=== PATIENT | male | born 1995 | race Caucasian/White ===

== ENCOUNTER 2016-11-30 17:57 | Emergency (ER) | payer OTHER, BC ==
--- NOTE | 2016-11-30 18:02 | PDOC ---
History of Present Illness - General History Source: Parent(s) Exam Limitations: Clinical Condition - History of Present Illness Initial Comments: The patient is 21 yo M with a past medical history significant for seizures and autism who presents with witnessed seizure today. Patients history is provided by parents as patient is nonverbal at baseline. Patients father states he witnessed the patient have a tonic clonic seizure that lasted 4-5 minutes where the patient fell straight forward and hit his head. As per parents , patient is compliant with his medications (depakote). Parents deny changes in medications and note his last seizure was 5 years ago. The patients last tetanus shot would have been 7-8 years ago. Neurologist: Dr. Jensen <Lydia Juan - Last Filed: 11/30/16 19:50> - General Exam Limitations: Clinical Condition <Sophie Degroot - Last Filed: 11/30/16 20:04> - General Stated Complaint: SEIZURE Past History <Lydia Juan - Last Filed: 11/30/16 19:50> - Past Medical History Seizures: Yes (SEIZURES) - Immunization History Td Vaccination: No - Psycho/Social/Smoking Cessation Hx Anxiety: No Suicidal Ideation: No Smoking Status: No Smoking History: Never smoked Years of Tobacco Use: 0 Number of Cigarettes Smoked Daily: 0 Hx Alcohol Use: No Drug/Substance Use Hx: No Substance Use Type: None <Sophie Degroot - Last Filed: 11/30/16 20:04> - Past Medical History Allergies/Adverse Reactions: Allergies Allergy/AdvReac Type Severity Reaction Status Date / Time cefprozil [From Cefzil] Allergy Intermediate Rash Verified 11/30/16 18:17 Home Medications: Ambulatory Orders Divalproex [Depakote -] 0 mg PO DAILY 01/22/16 Review of Systems - Review of Systems Able to Perform ROS?: No (Patient is nonverbal) <Lydia Juan - Last Filed: 11/30/16 19:50> *Physical Exam - Physical Exam Comments: GENERAL: The patient is in no acute distress. Patient is non verbal at baseline. HEAD: Abrasion on forehead. Abrasion on nose. EYES: PERRLA, EOMI, sclera anicteric, conjunctiva clear. ENT: Ears normal, nares patent, oropharynx clear without exudates. Moist mucous membranes. NECK: Normal range of motion, supple without lymphadenopathy, JVD, or masses. LUNGS: Breath sounds equal, clear to auscultation bilaterally. No wheezes, and no crackles. HEART:Regular rate and rhythm, normal S1 and S2 without murmur, rub or gallop. ABDOMEN: Soft, nontender, normoactive bowel sounds. No guarding, no rebound. EXTREMITIES: Abrasion on right hand. Normal range of motion, no edema. No clubbing or cyanosis. No erythema, or tenderness. NEUROLOGICAL: No gross focal neurological deficits. MUSCULOSKELETAL: Back non-tender to palpation, no CVA tenderness SKIN: Warm, Dry, normal turgor, no rashes or lesions noted. <Lydia Juan - Last Filed: 11/30/16 19:50> ED Treatment Course - LABORATORY CBC & Chemistry Diagram: 11/30/16 17:57 11/30/16 17:57 - RADIOLOGY Radiograph Interpretation: HEAD CT: Impression: No acute intracranial pathology is identified.. Correlate clinically for further evaluation and follow-up. CT scan of the facial bones without intravenous contrast. Coronal and sagittal reconstruction images were obtained. No gross fracture is identified. Both orbits are intact . Mild deviation of nasal septum to the right. Minimal mucosal thickening in the right maxillary antrum and ethmoid air cells and mild mucosal hypertrophy involving the inferior nasal terminus, left more the right. Bilateral upper neck and submandibular subcentimeter lymph nodes are present which are nonspecific. Visualized intracranial contents appear unremarkable. <Lydia Juan - Last Filed: 11/30/16 19:50> - LABORATORY CBC & Chemistry Diagram: 11/30/16 17:57 11/30/16 17:57 <Sophie Degroot - Last Filed: 11/30/16 20:04> Medical Decision Making - Medical Decision Making Paged Dr. Khoury @ 19:49. Awaiting call back. <Lydia Juan - Last Filed: 11/30/16 19:50> - Medical Decision Making 11/30/16 18:02 A portion of this note was documented by scribe services under my direction. I have reviewed the details of the note, within reason, and agree with the documentation with the following case summary and management plan written by me. Nursing documentation reviewed and incorporated into medical decision making this is a 21 yo M with a history of Autism and seizure Pt presents to the ER due to generalized tonic clonic seizure which caused him to fall forward and strike his head (+) tonic clonic movements lasting 4 minutes according to father Pt noted to be "sleepy" Child is awake Moving all extremities (+) abrasion of the forehead, nose, upper lip teeth in place 11/30/16 18:43 Will do basic labs + valproate will do CT Laboratory Tests 11/30/16 18:00 WBC 11.8 H Hgb 15.2 Hct 45.6 Plt Count 321 Neutrophils % 56.2 Lymphocytes % 29.7 11/30/16 19:16 Laboratory Tests 11/30/16 11/30/16 17:57 17:57 Sodium 142 Chloride 108 H Carbon Dioxide 23 Anion Gap 11 BUN 22 H Creatinine 2.1 H Random Glucose 103 Valproic Acid 13.727 L 11/30/16 19:28 CT: no ICH, small calcification (discussed with parents, he has had this since he was a child) CT facial bones: no fracture call placed to pt PMD Dr Lagunas ([phone]) 11/30/16 19:[address] Lagunas's coverage Unable to reach him directly Will discharge to home Will ask pt to keep follow up with PMD Monitor for additional seizures Return to the ER for any concerns or complaints 11/30/16 19:40 11/30/16 19:52 Dr Garibay has reviewed this case with me She recommends that he take 750mg po tonight before bed She recommends that family follow up with Dr Jensen tomorrow 11/30/16 19:59 <Sophie Degroot - Last Filed: 11/30/16 20:04> *DC/Admit/Observation/Transfer - Attestations Scribe Attestion: Documentation prepared by Lydia Juan, acting as biomedical field service engineer for Sophie Degroot MD/DO. <Lydia Juan - Last Filed: 11/30/16 19:50> - Discharge Dispostion Admit: No <Sophie Degroot - Last Filed: 11/30/16 20:04> Diagnosis at time of Disposition: Seizure, Dehydration - Discharge Dispostion Disposition: HOME Condition at time of disposition: Stable - Referrals Referrals: Yanick Jacobson MD [Primary Care Provider] - - Patient Instructions Printed Discharge Instructions: DI for Seizure Disorder -- Adult, DI for Dehydration -- Adult Additional Instructions: Thank you for bringing Yanick in to the ER! Please follow up with your primary physician as we discussed You will need to review Yanick's baseline creatinine Please also follow up with Dr Jensen regarding his seizure medications Per Dr Jensen's covering doctor's recommendation, Yanick should take 3 Depakote tablets (750mg) instead of 1 Depakote tablet. Please return to the ER immediately for any concerns or complaints
[2016-11-30 18:22] LABS: BASOPHIL 0.8 % (0-2.0); MCH 27.9 pg (25.7-33.7); MCHC 33.4 g/dl (32.0-35.9); MEAN CELL VOLUME 83.5 fl (80-96); MEAN PLT VOLUME 8.5 fl (7.5-11.1); NEUTROPHILS 56.2 % (42.8-82.8); PLATELET COUNT 321 K/MM3 (134-434); RDW 12.8 % (11.9-15.9); WHITE BLOOD COUNT 11.8 K/mm3 (4.0-10.0)
[2016-11-30 18:49] VITALS: BP 151/129; PULSE 93; TEMP 98.2; BMI 28.8
[2016-11-30 19:04] LABS: ALBUMIN 2.3 g/dl (3.4-5.0); ALK PHOS 89 U/L (45-117); ANION GAP 11 (8-16); CALCIUM 8.9 mg/dL (8.5-10.1); CO2 23 mmol/L (21-32); CREATININE 2.1 mg/dL (0.7-1.3); GLUCOSE,RANDOM 103 mg/dL (74-106); SGPT/ALT 25 U/L (12-78); TOT PROT 5.7 g/dl (6.4-8.2)
[2016-11-30 19:13] LABS: BILIRUBIN,TOTAL < 0.1 mg/dL (0.2-1.0)
[2016-11-30 19:15] LABS: SGOT/AST 27 U/L (15-37)
== END 2016-11-30 20:17 | disposition home or self-care (01) ==
LOC: JER 17:57
DX: G40.909 Epilepsy, unspecified, not intractable, without status epilepticus (principal); E86.0 Dehydration; F84.0 Autistic disorder; S00.81XA Abrasion of other part of head, initial encounter; W18.39XA Other fall on same level, initial encounter; Y93.89 Activity, other specified; Y92.018 Other place in single-family (private) house as the place of occurrence of the external cause
CPT/HCPCS: 70450-TC; 70486-TC; 80053; 80164; 99283-25

== ENCOUNTER 2017-08-29 10:04 | Inpatient (IN) | payer OTHER, BC ==
--- NOTE | 2017-08-29 10:12 | PDOC ---
History of Present Illness - General Chief Complaint: Loss of Appetite Stated Complaint: H/O AUTISM FATHER STATES NOT ACTING RIGHT Time Seen by Provider: 08/29/17 10:12 History Source: Parent(s) Exam Limitations: Other (nonverbal due to autism) - History of Present Illness Initial Comments: 22 yo M history of autism, seizures, nonverbal at baseline p/w change in mental status. As per father, he had diarrhea last night. Today he has been staring into space at times (does not typically do that at baseline), not himself. Dec PO intake since last night, although he indicated in ED that he was hungry-he does this by motioning to his chest as per parents. No fever, recent illness. He had a seizure a few days ago. Past History - Past Medical History Allergies/Adverse Reactions: Allergies Allergy/AdvReac Type Severity Reaction Status Date / Time cefprozil [From Cefzil] Allergy Intermediate Rash Verified 08/29/17 10:26 Home Medications: Ambulatory Orders Divalproex [Depakote -] 250 mg PO DAILY 01/22/16 Seizures: Yes (SEIZURES) - Immunization History Td Vaccination: No - Suicide/Smoking/Psychosocial Hx Smoking Status: No Smoking History: Never smoked Years of Tobacco Use: 0 Have you smoked in the past 12 months: No Number of Cigarettes Smoked Daily: 0 Hx Alcohol Use: No Drug/Substance Use Hx: No Substance Use Type: None Review of Systems - Review of Systems Able to Perform ROS?: No (nonverbal) *Physical Exam - Physical Exam Comments: GENERAL: Awake, alert, in no apparent distress HEAD: No signs of trauma EYES: PERRLA, EOMI, sclera anicteric, conjunctiva clear ENT: Auricles normal inspection, hearing grossly normal, nares patent, oropharynx clear without exudates. Dry mucosa NECK: Normal ROM, supple, no lymphadenopathy, JVD, or masses LUNGS: Breath sounds equal, clear to auscultation bilaterally. No wheezes, and no crackles HEART: Tachycardic, normal S1 and S2, no murmurs, rubs or gallops ABDOMEN: Firm to palpation diffusely. Patient does not grimace with exam. Normoactive bowel sounds. No guarding, no rebound. No masses EXTREMITIES: R clubfoot. Normal range of motion, no edema. No clubbing or cyanosis. No cords, erythema, or tenderness NEUROLOGICAL: Cranial nerves II through XII grossly intact. Moving all extremities. Limited by autism. SKIN: Warm, Dry, normal turgor, no rashes or lesions noted. Heart Score/ECG Review - ECG Impressions Comment:: EKG read 11:03- Sinus tach 102 bpm, no acute ST/T changes. +Incomplete RBBB ED Treatment Course - LABORATORY CBC & Chemistry Diagram: 09/01/17 05:45 08/31/17 05:40 Medical Decision Making - Medical Decision Making 08/29/17 10:27 Pt noted to be tachycardic and hypertensive. He kept moving his arm while getting BP measurement, which may have affected BP. This could also be new onset HTN or may be due to pain. Will evaluate medically, including EKG, labs, urine, and CT a/p. 08/29/17 12:37 Multiple attempts at IV access and blood draw (initial blood draw was hemolyzed) . IV access obtained by ED RN after many attempts, blood sent to lab for analysis. Pt hypertensive, however, will not treat without first evaluating the AMS, as the BP may be related. 08/29/17 14:22 Labs show acute renal failure, hyperkalemia. Medications ordered. Awaiting CT a/ p reading. 08/29/17 14:27 Lactate significantly elevated, no obvious source of infection on CT a/p or CXR. Poss pna found on CT, although does not clinically fit the picture. Will give broad spectrum abx. 08/29/17 14:33 Case d/w hospitalist Dr. Gonzalez for admission. Pt is awake and alert, no distress. [facility]. *DC/Admit/Observation/Transfer Diagnosis at time of Disposition: Acute renal failure Qualifiers: Acute renal failure type: unspecified Qualified Code(s): N17.9 - Acute kidney failure, unspecified Pneumonia Qualifiers: Pneumonia type: due to unspecified organism Laterality: unspecified laterality Lung location: unspecified part of lung Qualified Code(s): J18.9 - Pneumonia, unspecified organism Sepsis Qualifiers: Sepsis type: sepsis due to unspecified organism Qualified Code(s): A41.9 - Sepsis, unspecified organism - Discharge Dispostion Condition at time of disposition: Guarded Admit: Yes - Referrals - Patient Instructions - Post Discharge Activity
[2017-08-29 10:35] VITALS: BMI 27.3
[2017-08-29 11:32] LABS: PH,URINE 6.5 (4.5-8); URINE APPEARANCE Clear; URINE BILIRUBIN Negative (NEGATIVE); URINE GLUCOSE (UA) Trace (NEGATIVE); URINE KETONE Trace (NEGATIVE); URINE NITRITE Negative (NEGATIVE); URINE UROBILINOGEN 0.2 (0.2-1.0)
[2017-08-29 11:40] LABS: URINE BLOOD 3+ (NEGATIVE); URINE COLOR YELLOW; URINE LEUK ESTERASE TRACE (NEGATIVE); URINE PROTEIN 3+ (NEGATIVE)
[2017-08-29] MEDS ORDERED: SODIUM CHLORIDE 1,000 ML IV STA (11:51)
[2017-08-29] MEDS ORDERED: LORazepam 2 MG/ML SDV VIAL ONE (11:53)
[2017-08-29 11:54] LABS: HEMATOCRIT 26.1 % (35.4-49); HEMOGLOBIN 8.9 GM/dl (11.7-16.9); MCH 28.3 pg (25.7-33.7); MCHC 33.9 g/dl (32.0-35.9); MEAN CELL VOLUME 83.3 fl (80-96); MEAN PLT VOLUME 8.6 fl (7.5-11.1); PLATELET COUNT 104 K/MM3 (134-434); RBC 3.14 M/mm3 (4.00-5.60); RDW 12.8 % (11.9-15.9); WHITE BLOOD COUNT 23.3 K/mm3 (4.0-10.8)
[2017-08-29 13:20] LABS: EPI CELLS FEW /HPF; URINE BACTERIA NONE SEEN /hpf (NEGATIVE); URINE RBC >50 /hpf (0-3)
[2017-08-29 13:21] LABS: ALK PHOS 52 U/L (32-92); ANION GAP 14 (8-16); BILIRUBIN,TOTAL 0.7 mg/dl (0.2-1.0); CHLORIDE 95 mmol/L (98-107); CO2 15 mmol/L (22-28); GLUCOSE,RANDOM 101 mg/dl (74-106); SGOT/AST 32 U/L (10-42); SGPT/ALT 9 U/L (10-40); TOT PROT 4.8 g/dl (6.4-8.3)
[2017-08-29 14:06] LABS: INR 1.01 (0.82-1.09); PROTHROMBIN TIME (PATIENT) 11.3 SEC (10.2-13.0)
[2017-08-29 14:09] LABS: CREATININE 20.5 mg/dl (0.6-1.3); POTASSIUM 6.4 mmol/L (3.5-5.1); SODIUM 124 mmol/L (136-145)
[2017-08-29] MEDS ORDERED: SODIUM CHLORIDE 1,000 ML IV SCH (14:15)
[2017-08-29] MEDS ORDERED: SODIUM POLYSTYRENE SULFONATE 15 GM/60 ML BOTTLE PO ONE (14:16)
[2017-08-29] MEDS ORDERED: ALBUTEROL SO4 0.083% IH SOL 2.5 MG/3 ML VIAL.NEB. NEB ONE ×2 (14:16→14:40)
[2017-08-29] MEDS ORDERED: DEXTROSE 50%-WATER - 25 GM/50 ML VIAL IVPUSH ONE (14:16)
[2017-08-29] MEDS ORDERED: INSULIN REGULAR HUMAN 100 UNITS/ML *VIAL SQ ONE (14:16)
[2017-08-29] MEDS ORDERED: SODIUM BICARBONATE 8.4% 50 MEQ/50 ML DISP.SYRIN IVPUSH ONE (14:16)
[2017-08-29 14:19] LABS: BLOOD UREA NITROGEN 168 mg/dl (7-18)
[2017-08-29] MEDS ORDERED: AZTREONAM 1 GM in DEXTROSE 5%-WATER - 50 ML IVPB ONE (14:23)
[2017-08-29] MEDS ORDERED: VANCOMYCIN 1,000 MG in DEXTROSE 5%-WATER - 250 ML IVPB ONE (14:25)
[2017-08-29] MEDS ORDERED: SODIUM POLYSTYRENE SULFONATE 15 GM/60 ML BOTTLE ONE (14:37)
[2017-08-29] MEDS ORDERED: DEXTROSE 50%-WATER 25 GM/50 ML DISP.SYRIN ONE (14:37)
[2017-08-29] MEDS ORDERED: INSULIN REGULAR HUMAN 100 UNITS/ML *VIAL ONE (14:38)
--- NOTE | 2017-08-29 14:38 | EKG ---
Test Reason : Blood Pressure : / mmHG Vent. Rate : 102 BPM Atrial Rate : 102 BPM P-R Int : 164 ms QRS Dur : 118 ms QT Int : 388 ms P-R-T Axes : 059 -32 065 degrees QTc Int : 505 ms SINUS TACHYCARDIA LEFT AXIS DEVIATION INCOMPLETE RIGHT BUNDLE BRANCH BLOCK ABNORMAL ECG NO PREVIOUS ECGS AVAILABLE Confirmed by RHEA BILLS, WAQAS ([id number]) on 08/29/2017 2:38:25 PM Referred By: DR MARTIN Confirmed By:WAQAS WILKERSON MD
[2017-08-29] MEDS ORDERED: VANCOMYCIN 1,000 MG VIAL (RESTRICTED TO ID ONLY) ONE (14:40)
[2017-08-29] MEDS ORDERED: SODIUM BICARBONATE 8.4% 50 MEQ/50 ML VIAL ONE (14:40)
[2017-08-29] MEDS ORDERED: LABETALOL HCL 5 MG/1 ML (100MG/20 ML VIAL) IVPUSH ONE ×3 (14:43→19:32)
[2017-08-29] MEDS ORDERED: LABETALOL HCL 5 MG/1 ML (100MG/20 ML VIAL) ONE (15:25)
--- NOTE | 2017-08-29 18:21 | HP ---
CHIEF COMPLAINT: diarrhea, increased shortness of breath PCP: Yanick Jacobson HISTORY OF PRESENT ILLNESS: This is a 22 year old male with PMHx of autism, seizure disorder, who presented to the ED with diarrhea and increase dyspnea. The patient is non-verbal at baseline. His mother states that on Sunday she noticed small lumps under his right armpit and called his pcp who prescribed Keflex. The patient then developed diarrhea on Sunday (8 times), for which the patient's father gave him 3 immodium. The patient has not had any bowel movements since then. The mother also noticed that yesterday the patient's breathing "was not right". The patient did not have any vomiting, however since Sunday he has had a decreased appetite. Patient was received from [facility] at 5:30pm ER course was notable for: (1) Temp 98.1, pulse 108, BPs 220s/130s, resp 24, pulse ox 100% on RA (2) WBC 23.3->13.5 (3) Hgb 8.9->7.3 (4) Na 123 (5) K 6.4, received albuterol, d50, insulin, kayexalate, sodium bicarb (6) BUN 168, Cr 20.5 (7) Lactic acid 2.3 (8) Trop 0.10 (9) CTAP (10) Chest X-ray with no acute process Recent Travel: mother denies PAST MEDICAL HISTORY: as above PAST SURGICAL HISTORY: hernia repair as Social History: Smoking: mother denies Alcohol: mother denes Drugs: mother denies Family History: Allergies cefprozil [From Cefzil] Allergy (Intermediate, Verified 08/29/17 10:26) Rash HOME MEDICATIONS: Home Medications Medication Instructions Recorded Divalproex [Depakote -] 250 mg PO DAILY 01/22/16 REVIEW OF SYSTEMS: obtained from mother CONSTITUTIONAL: decrease appetite since Sunday Absent: fever, diaphoresis, weight change HEENT: Absent: rhinorrhea, nasal congestion, throat swelling, difficulty swallowing, mouth swelling CARDIOVASCULAR: Absent: syncope, peripheral edema RESPIRATORY: breathing "did not look right" since yesterday Absent: cough, shortness of breath, dyspnea with exertion, orthopnea, wheezing, stridor, hemoptysis GASTROINTESTINAL: Diarrhea x8 times yesterday. Imodium x3 given Absent: abdominal distension, vomiting, constipation, melena, hematochezia GENITOURINARY: Absent: frequency, urgency, hesitancy, hematuria MUSCULOSKELETAL: Absent: myalgia, arthralgia, joint swelling SKIN: Absent: rash, itching, pallor HEMATOLOGIC/IMMUNOLOGIC: Absent: easy bleeding, easy bruising, lymphadenopathy, frequent infections ENDOCRINE: Absent: unexplained weight gain, unexplained weight loss, heat intolerance, cold intolerance NEUROLOGIC: Absent: focal weakness or paresthesias, dizziness, unsteady gait, seizure, mental status changes, bladder or bowel incontinence PHYSICAL EXAMINATION Vital Signs - 24 hr 08/29/17 08/29/17 08/29/17 10:06 11:50 13:09 Temperature 98.1 F Pulse Rate 108 H Pulse Rate [ 100 H 100 H Right Radial] Respiratory 24 20 20 Rate Blood Pressure 230/130 Blood Pressure 220/140 [Left Arm] O2 Sat by Pulse 100 99 Oximetry (%) 08/29/17 08/29/17 08/29/17 13:36 13:38 14:53 Temperature 98.9 F Pulse Rate Pulse Rate [ 107 H 113 H Right Radial] Respiratory 20 24 Rate Blood Pressure Blood Pressure 199/139 220/128 [Left Arm] O2 Sat by Pulse Oximetry (%) 08/29/17 08/29/17 08/29/17 15:31 15:45 16:05 Temperature Pulse Rate Pulse Rate [ 104 H 103 H 108 H Right Radial] Respiratory 26 H 24 24 Rate Blood Pressure Blood Pressure 212/112 198/118 208/121 [Left Arm] O2 Sat by Pulse 100 98 Oximetry (%) 08/29/17 08/29/17 17:17 17:31 Temperature Pulse Rate 104 H Pulse Rate [ Right Radial] Respiratory 18 Rate Blood Pressure 191/110 Blood Pressure [Left Arm] O2 Sat by Pulse 95 Oximetry (%) GENERAL: Lethargic, opens eyes to name HEAD: Left EYES: sclera anicteric, conjunctiva clear. No lid lag. EARS, NOSE, THROAT: Ears normal, nares patent, oropharynx clear without exudates. Moist mucous membranes. NECK: Normal range of motion, supple without lymphadenopathy, JVD, or masses. LUNGS: Decreased breath sounds anteriorly. No wheezes, and no crackles. No accessory muscle use. HEART: Regular rate and rhythm, normal S1 and S2 ABDOMEN: Soft, nontender, not distended, normoactive bowel sounds, no guarding, no rebound, no masses. UPPER EXTREMITIES: Left axilla with multiple indurations, mild erythema. No fluctuance noted. 2+ pulses, warm, well-perfused. No cyanosis. No clubbing. No peripheral edema. LOWER EXTREMITIES: 2+ pulses, warm, well-perfused. No calf tenderness. No peripheral edema. SKIN: Warm, dry, normal turgor, no rashes or lesions noted, normal capillary refill. Laboratory Results - last 24 hr 08/29/17 08/29/17 08/29/17 10:50 10:52 10:52 WBC RBC Hgb Hct MCV MCH MCHC RDW Plt Count MPV Neutrophils % Lymphocytes % PT with INR INR Sodium Cancelled Potassium Cancelled Chloride Cancelled Carbon Dioxide Cancelled Anion Gap Cancelled BUN Cancelled Creatinine Cancelled Creat Clearance w eGFR Cancelled Random Glucose Cancelled Lactic Acid Calcium Cancelled Total Bilirubin Cancelled AST Cancelled ALT Cancelled Alkaline Phosphatase Cancelled Creatine Kinase Cancelled Creatine Kinase Index CK-MB (CK-2) Troponin I Cancelled Total Protein Cancelled Albumin Cancelled Lipase Urine Color Urine Appearance Urine pH Ur Specific [place] Urine Protein Urine Glucose (UA) Urine Ketones Urine Blood Urine Nitrite Urine Bilirubin Urine Urobilinogen Ur Leukocyte Esterase Urine RBC Urine WBC Ur Epithelial Cells Urine Bacteria Blood Type O POSITIVE Antibody Screen 08/29/17 08/29/17 08/29/17 10:52 10:52 10:52 WBC 23.3 H RBC 3.14 L Hgb 8.9 L Hct 26.1 L MCV 83.3 MCH 28.3 MCHC 33.9 RDW 12.8 Plt Count 104 L MPV 8.6 Neutrophils % No Result Required. Lymphocytes % No Result Required. PT with INR Cancelled INR Cancelled Sodium Potassium Chloride Carbon Dioxide Anion Gap BUN Creatinine Creat Clearance w eGFR Random Glucose Lactic Acid Calcium Total Bilirubin AST ALT Alkaline Phosphatase Creatine Kinase Creatine Kinase Index CK-MB (CK-2) Troponin I Total Protein Albumin Lipase Urine Color Urine Appearance Urine pH Ur Specific [place] Urine Protein Urine Glucose (UA) Urine Ketones Urine Blood Urine Nitrite Urine Bilirubin Urine Urobilinogen Ur Leukocyte Esterase Urine RBC Urine WBC Ur Epithelial Cells Urine Bacteria Blood Type O POSITIVE Antibody Screen Negative 08/29/17 08/29/17 08/29/17 10:52 10:52 10:52 WBC RBC Hgb Hct MCV MCH MCHC RDW Plt Count MPV Neutrophils % Lymphocytes % PT with INR INR Sodium Potassium Chloride Carbon Dioxide Anion Gap BUN Creatinine Creat Clearance w eGFR Random Glucose Lactic Acid 2.3 H* Calcium Total Bilirubin AST ALT Alkaline Phosphatase Creatine Kinase Creatine Kinase Index CK-MB (CK-2) Troponin I Total Protein Albumin Lipase 186 Urine Color Yellow Urine Appearance Clear Urine pH 6.5 Ur Specific [place] 1.025 Urine Protein 3+ H Urine Glucose (UA) Trace Urine Ketones Trace Urine Blood 3+ H Urine Nitrite Negative Urine Bilirubin Negative Urine Urobilinogen 0.2 Ur Leukocyte Esterase Trace H Urine RBC >50 Urine WBC 3-5 Ur Epithelial Cells Few Urine Bacteria None seen Blood Type Antibody Screen 08/29/17 08/29/17 08/29/17 12:37 12:37 12:37 WBC RBC Hgb Hct MCV MCH MCHC RDW Plt Count MPV Neutrophils % Lymphocytes % PT with INR 11.3 INR 1.01 Sodium 124 L* Potassium 6.4 H* Chloride 95 L Carbon Dioxide 15 L Anion Gap 14 BUN 168 H* Creatinine 20.5 H* Creat Clearance w eGFR 2.84 Random Glucose 101 Lactic Acid Calcium 7.0 L Total Bilirubin 0.7 AST 32 ALT 9 L Alkaline Phosphatase 52 Creatine Kinase 373 H Creatine Kinase Index 2.5 CK-MB (CK-2) 9.4 H Troponin I 0.10 H Total Protein 4.8 L Albumin 2.0 L Lipase Urine Color Urine Appearance Urine pH Ur Specific [place] Urine Protein Urine Glucose (UA) Urine Ketones Urine Blood Urine Nitrite Urine Bilirubin Urine Urobilinogen Ur Leukocyte Esterase Urine RBC Urine WBC Ur Epithelial Cells Urine Bacteria Blood Type Antibody Screen 08/29/17 12:37 WBC RBC Hgb Hct MCV MCH MCHC RDW Plt Count MPV Neutrophils % Lymphocytes % PT with INR INR Sodium Potassium Chloride Carbon Dioxide Anion Gap BUN Creatinine Creat Clearance w eGFR Random Glucose Lactic Acid 0.5 Calcium Total Bilirubin AST ALT Alkaline Phosphatase Creatine Kinase Creatine Kinase Index CK-MB (CK-2) Troponin I Total Protein Albumin Lipase Urine Color Urine Appearance Urine pH Ur Specific [place] Urine Protein Urine Glucose (UA) Urine Ketones Urine Blood Urine Nitrite Urine Bilirubin Urine Urobilinogen Ur Leukocyte Esterase Urine RBC Urine WBC Ur Epithelial Cells Urine Bacteria Blood Type Antibody Screen Assessment: This is a 22 year old male with PMHx of autism, seizure disorder, who presented to the ED with diarrhea and increase dyspnea. The patient is non- verbal at baseline. Plan: 1) Acute renal failure - Likely 2/2 chronic hypertension, previous admission BP 15/129 11/30/16 - Cr on 11/30/16 2.1 - Now with Cr of 20.5 - Discussed with Dr. Velasquez, emergent HD tonight - Discussed with Dr. 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 Patient was given Immodium x3 - F/u stool studies, c.diff - Bowel rest, CTAP with possible ileus 6) Visit type - Emergency Visit Emergency Visit: Yes ED Registration Date: 08/29/17 Care time: The patient presented to the Emergency Department on the above date and was hospitalized for further evaluation of their emergent condition. - New Patient This patient is new to me today: Yes Date on this admission: 08/29/17 - Critical Care Critical Care patient: Yes Total Critical Care Time (in minutes): 55 Critical Care Statement: The care of this patient involved high complexity decision making to prevent further life threatening deterioration of the patient 's condition and/or to evaluate & treat vital organ system(s) failure or risk of failure. Hospitalist Screening - Colonoscopy Questionnaire Colonoscopy Questionnaire: Colonoscopy Questionnaire - Patient: 50 - 75 years old and never had a screening colonoscopy: No History of colon or rectal polyps, or CA: Unknown History of IBD, Crohn's disease or UC: Unknown History of abdominal radiation therapy as a child: Unknown - Relative: 1 with colon or rectal CA, or polyps at age 60 or younger: Unknown Colon or rectal CA diagnosed at age 45 or younger: Unknown Multiple relatives with colon or rectal CA: Unknown - Outcome: Screening Result: Negative Screen
[2017-08-29 18:29] LABS: HEMATOCRIT 20.9 % (35.4-49); HEMOGLOBIN 7.3 GM/dL (11.7-16.9); MCH 28.6 pg (25.7-33.7); MCHC 34.7 g/dl (32.0-35.9); MEAN CELL VOLUME 82.6 fl (80-96); MEAN PLT VOLUME 8.1 fl (7.5-11.1); PLATELET COUNT 55 K/MM3 (134-434); RBC 2.53 M/mm3 (4.00-5.60); RDW 13.8 % (11.9-15.9); WHITE BLOOD COUNT 13.5 K/mm3 (4.0-10.0)
[2017-08-29 18:53] LABS: ALBUMIN 1.6 g/dl (3.4-5.0); ANION GAP 20 (8-16); CHLORIDE 97 mmol/L (98-107); CO2 15 mmol/L (21-32); GLUCOSE,RANDOM 74 mg/dL (74-106); POTASSIUM 4.8 mmol/L (3.5-5.1); SGOT/AST 36 U/L (15-37); SGPT/ALT 9 U/L (12-78); SODIUM 132 mmol/L (136-145)
[2017-08-29] MEDS ORDERED: CALCIUM GLUCONATE 10% - 1,000 MG/10 ML VIAL IVPUSH ONE (18:55)
[2017-08-29 18:59] LABS: ALK PHOS 51 U/L (45-117); BILIRUBIN,TOTAL 0.3 mg/dL (0.2-1.0); TOT PROT 4.2 g/dl (6.4-8.2)
--- NOTE | 2017-08-29 18:59 | PN ---
Progress Note (short form) - Note Progress Note: ID consult dictated asked to see for leukocytosis imp/reccd 22 year old man with autism, nonverbal with seizure disorder several episodes diarrhea on sunday that has stopped after immodium no fevers given vancomycin and azactam after cultures renal failure with hyponatremia and hyperkalemia-cr of 20! renal eval called for transfer to ICU severe htn- ?cause of renal failure diarrhea has stopped- no colitis on CT scan nonbloody, ?HUS send cdiff and cultures if he has further diarrhea very early as diarrhea was yesterday leukocytosis- f/u cultures no source noted in renal failure received vanco and azactam today f/u cultures in am f/u vanco level in am redose azactam in am cefprozil allergy- rash has taken augmentin and keflex in the past per Mom
[2017-08-29 19:09] LABS: BLOOD UREA NITROGEN 157 mg/dL (7-18); CREATININE 20.5 mg/dL (0.7-1.3)
[2017-08-29 19:10] LABS: CALCIUM 6.9 mg/dL (8.5-10.1)
--- NOTE | 2017-08-29 19:22 | CONSULT ---
Consult Consult Specialty:: Nephrology Reason for Consultation:: ANNA - History of Present Illness Chief Complaint: mental status changes and diarrhea yesterday History of Present Illness: Pt is a 22 year old male with pmhx of autism, HTN, CKD and epilepsy who presents to the ER with a change in mental status. He had a few episodes of diarrhea yesterday. His mental status has improved since yesterday. He was found to be in ANNA with a creatinine of about 20. I was called to see him in consult. Pt is unable to give any history. His mother is at bedside and she was able to provide history. Pt was also found to be markedly hypertensive. 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 He was also hypertensive at that time. Mother was not aware of renal failure. He has not seen a appliance tester nor had any outpt workup. He had not been on nsaids. He was given immodium for the diarrhea yesterday. 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) Cardio/Vascular: Yes: HTN Renal/: Yes: Renal Inusuff - Past Surgical History Past Surgical History: Yes: Hernia Repair - Alcohol/Substance Use Hx Alcohol Use: No - Smoking History Smoking history: Never smoked Have you smoked in the past 12 months: No Aproximately how many cigarettes per day: 0 Home Medications - Allergies Allergies/Adverse Reactions: Allergies Allergy/AdvReac Type Severity Reaction Status Date / Time cefprozil [From Cefzil] Allergy Intermediate Rash Verified 08/29/17 10:26 - Home Medications Home Medications: Ambulatory Orders Divalproex [Depakote -] 250 mg PO DAILY 01/22/16 Family Disease History - Family Disease History Family Disease History: Other: Father (htn) Review of Systems Unable to obtain ROS, reason: pt non verbal Physical Exam Vital Signs: Vital Signs Temperature 98.9 F 08/29/17 13:38 Pulse Rate 104 H 08/29/17 17:17 Respiratory Rate 18 08/29/17 17:17 Blood Pressure 191/110 08/29/17 17:17 O2 Sat by Pulse Oximetry (%) 95 08/29/17 17:31 Constitutional: Yes: Calm Eyes: Yes: Conjunctiva Clear HENT: Yes: Atraumatic Neck: Yes: Supple Cardiovascular: Yes: S1, S2 Respiratory: Yes: CTA Bilaterally Gastrointestinal: Yes: Soft Renal/: Yes: WNL Musculoskeletal: Yes: WNL Edema: No Integumentary: Yes: Other (scratch on his head) Neurological: Yes: Pre-Existing Deficit Labs: CBC, BMP 08/29/17 18:00 08/29/17 18:00 Selected Entries 08/29/17 08/29/17 16:05 17:17 Blood Pressure 191/110 Blood Pressure 208/121 [Left Arm] Laboratory Tests 11/30/16 08/29/17 08/29/17 17:57 10:52 12:37 Sodium 124 L* Potassium 6.4 H* Chloride 95 L Carbon Dioxide 15 L Anion Gap 14 BUN 168 H* Creatinine 2.1 H 20.5 H* Lactic Acid 2.3 H* Calcium 7.0 L Total Bilirubin 0.7 AST 32 Alkaline Phosphatase 52 Creatine Kinase 373 H Troponin I Total Protein 4.8 L 08/29/17 08/29/17 08/29/17 12:37 12:37 18:00 Sodium Potassium Chloride Carbon Dioxide Anion Gap BUN Creatinine Lactic Acid 0.5 Calcium Total Bilirubin AST Alkaline Phosphatase Creatine Kinase Troponin I 0.10 H Pending Total Protein Imaging - Results Chest X-ray: Report Reviewed Cat Scan: Report Reviewed Assessment/Plan Current Medications Generic Name Dose Route Start Last Admin Trade Name Freq PRN Reason Stop Dose Admin Chlorhexidine Gluconate 1 applic 08/29/17 22:00 Hibiclens For Decolonization - TP HS LANE Sodium Chloride 1,000 mls @ 125 mls/hr 08/29/17 14:15 08/29/17 14:53 Normal Saline - IV 125 mls/hr ASDIR LANE Administration Mupirocin 1 applic 08/29/17 22:00 Bactroban Ointment (For Decolonization) - NS 09/03/17 21:[address] Impression 1. ANNA 2. HTN urgency/emergency 3. hyperkalemia 4. hyponatremia 5. autism 6. hx of seizure 7. anemia 8. CKD 9. lactic acidosis improving 10. thrombocytopenia Plan - move pt to ICU - potassium treated medically - will arrange for HD today, discussed with mother. I explained the risks of catheter placement and of hemodialysis. She agrees to go ahead with the procedure. 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
[2017-08-29] MEDS ORDERED: SODIUM CHLORIDE 250 ML IV PRN (19:43)
[2017-08-29 19:57] LABS: ADD RBC MORPHOLOGY YES
--- NOTE | 2017-08-29 20:25 | CONSULT ---
Consult Consult Specialty:: Pulm/CCM Reason for Consultation:: ANNA, metabolic disarray - History of Present Illness History of Present Illness: 22 yom with Pmhx of autism, HTN, CKD and epilepsy who presents to the ER with AMS. Found to be in hypertensive urgency with acute on chronic ANNA and severe metabolic disarray In ED T 98.1 , HR 108, BP 230/130, O2 sat 100% on room air. Labs notable for WBC 13.5, Hgb 7.3,Plts 55, BUN/Creat 157/20.5, K 6.4, Trop 0.15. Creat in 2016 noted to be 2.1. BP also elevated 150/100. Family reported a few episodes of diarrhea yesterday. K was medically treated and improved to 4.8. Nephrology Dr Velasquez was consulted. Plan for iHD. He was transferred to ICU for further management. In ICU BP 190/110, HR 103 o2 sat 100%, somnolent but easily aroused, not following commands, occasionally restless. Has malodorus loose stools post kayexalate doses. Family denied c/o fever, abd pain, chest pain, N/V, loss of appetite. Rt IJ Trialysis cath placed. Confirmed by CXR. iHD ongoing. 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) Cardio/Vascular: Yes: HTN Renal/: Yes: Renal Inusuff - Past Surgical History Past Surgical History: Yes: Hernia Repair - Alcohol/Substance Use Hx Alcohol Use: No - Smoking History Smoking history: Never smoked Have you smoked in the past 12 months: No Aproximately how many cigarettes per day: 0 Home Medications - Allergies Allergies/Adverse Reactions: Allergies Allergy/AdvReac Type Severity Reaction Status Date / Time cefprozil [From Cefzil] Allergy Intermediate Rash Verified 08/29/17 10:26 - Home Medications Home Medications: Ambulatory Orders Divalproex [Depakote -] 250 mg PO DAILY 01/22/16 Family Disease History - Family Disease History Family History: Unable to Obtain Family Disease History: Other: Father (htn) Review of Systems Unable to obtain ROS, reason: Unable Physical Exam Vital Signs: Vital Signs Temperature 98 F 08/29/17 18:45 Pulse Rate 108 H 08/29/17 19:15 Respiratory Rate 18 08/29/17 19:15 Blood Pressure 215/118 08/29/17 19:15 O2 Sat by Pulse Oximetry (%) 95 08/29/17 17:31 Intake & Output 08/26/17 08/27/17 08/28/17 08/29/17 23:59 23:59 23:59 23:59 Intake Total 1175 Output Total 80 Balance 1095 Weight 81.647 kg Constitutional: Yes: Well Nourished, No Distress Eyes: Yes: WNL, PERRL HENT: Yes: Atraumatic, Normocephalic Neck: Yes: Supple, Trachea Midline Cardiovascular: Yes: Regular Rate and Rhythm, Tachycardia, S1, S2 Respiratory: Yes: CTA Bilaterally Gastrointestinal: Yes: Normal Bowel Sounds, Soft, Other (non tender) Renal/: Yes: Ruiz Present Extremities: Yes: WNL Edema: No Peripheral Pulses WNL: Yes Integumentary: Yes: WNL Neurological: Yes: Other (Somnolent) ...Motor Strength: WNL Psychiatric: Yes: Other Labs: CBC, BMP 08/29/17 18:00 08/29/17 18:00 CBC,CMP WBC 13.3 K/mm3 (4.0-10.0) H 08/29/17 20:00 RBC 2.51 M/mm3 (4.00-5.60) L 08/29/17 20:00 Hgb 7.2 GM/dL (11.7-16.9) L 08/29/17 20:00 Hct 21.0 % (35.4-49) L 08/29/17 20:00 MCV 83.7 fl (80-96) 08/29/17 20:00 MCH 28.6 pg (25.7-33.7) 08/29/17 20:00 MCHC 34.2 g/dl (32.0-35.9) 08/29/17 20:00 RDW 14.1 % (11.9-15.9) 08/29/17 20:00 Plt Count 55 K/MM3 (134-434) L 08/29/17 20:00 MPV 8.6 fl (7.5-11.1) 08/29/17 20:00 Neutrophils % 83.5 % (42.8-82.8) H D 08/29/17 20:00 Neutrophils % (Manual) 85.0 % (42.8-82.8) H 08/29/17 10:52 Band Neutrophils % 5.0 % (0-10) 08/29/17 10:52 Lymphocytes % 6.1 % (8-40) L D 08/29/17 20:00 Lymphocytes % (Manual) 4.0 % (8-40) L 08/29/17 10:52 Monocytes % 10.2 % (3.8-10.2) 08/29/17 20:00 Monocytes % (Manual) 2 % (3.8-10.2) L 08/29/17 10:52 Eosinophils % 0.0 % (0-4.5) D 08/29/17 20:00 Basophils % 0.2 % (0-2.0) 08/29/17 20:00 Metamyelocytes 3 % (0-2) H 08/29/17 10:52 Anisocytosis 1+ 08/29/17 10:52 Tear Drop Cells 1+ 08/29/17 10:52 Ovalocytes 1+ 08/29/17 10:52 Fragmented RBCs 1+ 08/29/17 10:52 Morphology Comment See comment 08/29/17 18:00 Retic Count 2.89 % (0.5-1.5) H 08/29/17 20:00 Sodium 132 mmol/L (136-145) L 08/29/17 18:00 Potassium 4.8 mmol/L (3.5-5.1) 08/29/17 18:00 Chloride 97 mmol/L (98-107) L D 08/29/17 18:00 Carbon Dioxide 15 mmol/L (21-32) L D 08/29/17 18:00 Anion Gap 20 (8-16) H 08/29/17 18:00 BUN 157 mg/dL (7-18) H* D 08/29/17 18:00 Creatinine 20.5 mg/dL (0.7-1.3) H* D 08/29/17 18:00 Creat Clearance w eGFR 2.84 (>60) 08/29/17 18:00 Random Glucose 74 mg/dL (74-106) D 08/29/17 18:00 Lactic Acid 0.7 mmol/L (0.0-2.0) 08/29/17 16:04 Calcium 6.9 mg/dL (8.5-10.1) L* D 08/29/17 18:00 Ferritin 1092.933 ng/ml (16.4-293.9) H 08/29/17 20:00 Total Bilirubin 0.3 mg/dL (0.2-1.0) D 08/29/17 18:00 AST 36 U/L (15-37) D 08/29/17 18:00 ALT 9 U/L (12-78) L D 08/29/17 18:00 Alkaline Phosphatase 51 U/L (45-117) D 08/29/17 18:00 LD Total 1254 U/L (87-241) H 08/29/17 20:00 Creatine Kinase 373 IU/L (39-308) H 08/29/17 12:37 Creatine Kinase Index 2.5 % (0.0-5.0) 08/29/17 12:37 CK-MB (CK-2) 9.4 ng/mL (0.3-4.0) H 08/29/17 12:37 Troponin I 0.15 ng/ml (0.00-0.05) H 08/29/17 18:00 Total Protein 4.2 g/dl (6.4-8.2) L D 08/29/17 18:00 Albumin 1.6 g/dl (3.4-5.0) L D 08/29/17 18:00 Lipase 186 U/L (73-393) 08/29/17 10:52 TSH 5.20 uIU/ml (0.358-3.74) H 08/29/17 12:37 Current Medications Chlorhexidine Gluconate (Hibiclens For Decolonization -) [address] Sodium Chloride (Normal Saline -) 250 mls @ 3,000 mls/hr IV PRN PRN PRN Reason: Hypotension during Dialysis Stop: 08/30/17 19:43 Mupirocin (Bactroban Ointment (For Decolonization) -) [address] Stop: 09/03/17 21:59 Imaging - Results Chest X-ray: Image Reviewed Cat Scan: Report Reviewed EKG: Report Reviewed Problem List - Problems (1) Hypertensive urgency Code(s): I16.0 - HYPERTENSIVE URGENCY (2) Hyperkalemia Code(s): E87.5 - HYPERKALEMIA (3) Anemia Code(s): D64.9 - ANEMIA, UNSPECIFIED (4) Thrombocytopenia Code(s): D69.6 - THROMBOCYTOPENIA, UNSPECIFIED (5) Acute renal failure Code(s): N17.9 - ACUTE KIDNEY FAILURE, UNSPECIFIED Qualifiers: Acute renal failure type: unspecified Qualified Code(s): N17.9 - Acute kidney failure, unspecified Assessment/Plan 22 yom with Pmhx of autism, HTN, CKD and epilepsy who presents to the ER with AMS. Found to be in hypertensive urgency with acute on chronic ANNA and severe metabolic disarray of unclear etiology. C/F HUS, MAHA Plan: -Cardiology consult for BP management -Labetalol for SBP<180 -IHD as per nephrology -FeNa 10.85% -monitor BMP and UOP -f/u renal US, urine studies ( FeNa 10.85%) -f/u rheumatology work-up -Heme consult -f/u hemolysis labs, peripheral smear for schistocytes and [id number] -Sent stool cultures -F/u blood and urine cultures -ID consult -Montior CBC and coags -Transfuse for hgb<7, platelets <50 and for bleeding -NPO for now -SCDs Elvia Giles, WILMER CCtime 60mins
[2017-08-29 20:47] LABS: ANISOCYTOSIS 1+; OVALOCYTE 1+; TEAR DROP CELLS 1+
[2017-08-29 21:01] LABS: URINE CREATININE 64.4 mg/dL (20-370)
[2017-08-29 21:08] LABS: BASO % 0.2 % (0-2.0); HEMOGLOBIN 7.2 GM/dL (11.7-16.9); LYMPH % 6.1 % (8-40); MCH 28.6 pg (25.7-33.7); MCHC 34.2 g/dl (32.0-35.9); MEAN CELL VOLUME 83.7 fl (80-96); MEAN PLT VOLUME 8.6 fl (7.5-11.1); MONO % 10.2 % (3.8-10.2); NEUT % 83.5 % (42.8-82.8); PLATELET COUNT 55 K/MM3 (134-434); RBC 2.51 M/mm3 (4.00-5.60); RDW 14.1 % (11.9-15.9); WHITE BLOOD COUNT 13.3 K/mm3 (4.0-10.0)
--- NOTE | 2017-08-29 21:29 | PN ---
Progress Note (short form) - Note Progress Note: Dr. Tolentino spoke with Dr. Vasquez about continuing pt's home dose of depakote (250mg in morning, 750mg at 5pm, and 250mg at night), but because of risk of thrombocytopenia (per uptodate, there is a 1-27% risk), she said to hold tonight 's dose, obtain a depakote level, and place a neurology consult.
[2017-08-29] MEDS ORDERED: LORazepam 2 MG/ML SDV VIAL IVPUSH ONE (21:30)
[2017-08-29 21:31] LABS: INR 1.03 (0.82-1.09); PROTHROMBIN TIME (PATIENT) 11.6 SEC (9.98-11.88)
[2017-08-29 21:33] LABS: ACTIVATED PTT 33.3 SECONDS (26.9-34.4)
--- NOTE | 2017-08-29 21:36 | CONSULT ---
Consult Consult Specialty:: Hematology - History of Present Illness History of Present Illness: 22 yo M history of autism, seizures, nonverbal at baseline p/w change in mental status. As per father, he had diarrhea last night. Today he has been staring into space at times (does not typically do that at baseline), not himself. Pt is seen in the ICU tonight for concern of HUS. 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) Cardio/Vascular: Yes: HTN Renal/: Yes: Renal Inusuff - Past Surgical History Past Surgical History: Yes: Hernia Repair - Alcohol/Substance Use Hx Alcohol Use: No - Smoking History Smoking history: Never smoked Have you smoked in the past 12 months: No Aproximately how many cigarettes per day: 0 Home Medications - Allergies Allergies/Adverse Reactions: Allergies Allergy/AdvReac Type Severity Reaction Status Date / Time cefprozil [From Cefzil] Allergy Intermediate Rash Verified 08/29/17 10:26 - Home Medications Home Medications: Ambulatory Orders Divalproex [Depakote -] 250 mg PO DAILY 01/22/16 Family Disease History - Family Disease History Family Disease History: Other: Father (htn) Physical Exam Vital Signs: Vital Signs Temperature 98 F 08/29/17 18:45 Pulse Rate 108 H 08/29/17 19:15 Respiratory Rate 18 08/29/17 19:15 Blood Pressure 215/118 08/29/17 19:15 O2 Sat by Pulse Oximetry (%) 95 08/29/17 17:31 Constitutional: Yes: Calm Eyes: Yes: Conjunctiva Clear HENT: Yes: Atraumatic, Normocephalic Neck: Yes: Supple Cardiovascular: Yes: Regular Rate and Rhythm Respiratory: Yes: Regular Gastrointestinal: Yes: Normal Bowel Sounds, Soft, Abdomen, Obese Extremities: Yes: WNL Edema: No Neurological: Yes: Alert, Other (aphasic) Labs: CBC, BMP 08/29/17 20:00 08/29/17 18:00 Imaging - Results X-ray: Report Reviewed Cat Scan: Report Reviewed Problem List - Problems (1) Acute renal failure Code(s): N17.9 - ACUTE KIDNEY FAILURE, UNSPECIFIED Qualifiers: Acute renal failure type: unspecified Qualified Code(s): N17.9 - Acute kidney failure, unspecified (2) Anemia Code(s): D64.9 - ANEMIA, UNSPECIFIED (3) Thrombocytopenia Code(s): D69.6 - THROMBOCYTOPENIA, UNSPECIFIED (4) Hypertensive urgency Code(s): I16.0 - HYPERTENSIVE URGENCY (5) Seizure Code(s): R56.9 - UNSPECIFIED CONVULSIONS Assessment/Plan Chart/Labs reviewed in detail. In the light of his HTN crisis, renal failure ( ?etiology ), would think that, the likely evolving hemolytic process could be a result of the HTN crisis. Looked at the peripheral smear , no schistocytes present as of today , though LDH, Retic are high with nl bili, the drop in Hct/Platelet count is not very consistent. At this point I would think HUS is less likely but cannot rule out an evolving process. Therefore, will give 2U PRBC vis HD, and also send off [id number] and administer 2U FFP. if a PLEx procedure to be planned, will alternate with HD, and first one to be started on Sunday, tentatively. Serological w.u, GEN, less likely CAPS Rheumatology eval. Neurology eval given h/o seizures and last seizure being r/o infection send C diff. Daily CBC/LFT/LDH /coags d/w , Resident ,RN and parents at bedside
--- NOTE | 2017-08-29 22:55 | PROC ---
Procedure Note Procedure: 15cm Trialysis catheter for iHD/Pharesis placed in Rt IJ using Seldinger technique under sterile conditions. Area prepped with chlorhexidene. Ativan 2 mg IV given for agitation, 5cc 1% lidocaine used. Pt tolerated procedure well. Placement confirmed with CXR. No PTX noted. Elvia Giles, MASSIMOP
--- NOTE | 2017-08-29 23:29 | CONS ---
DATE OF CONSULTATION: DATE OF DICTATION: 08/29/2017 INFECTIOUS DISEASE CONSULTATION REQUESTING PHYSICIAN: [facility] CONSULTING PHYSICIAN: Amarilys Billy M.D. REASON FOR CONSULTATION: I am asked to see the patient for leukocytosis. HISTORY OF PRESENT ILLNESS: This is a 22-year-old young man who has a history of autism. He is nonverbal at baseline. He has had seizures since age 10. He goes to a day program usually. This week on Sunday he stayed at home due to the snow. On Sunday, he developed diarrhea. He had 1-2 episodes at home. He then went to stay with his dad. The history is all from the mother, and apparently had diarrhea during the day. He was given Imodium 3 times. He on Sunday mom drops him off in the morning. He had no further diarrhea. She dropped him off at dad's house. He called her and said he was not behaving like himself, and he thought he had a funny breathing pattern, and brought him to the emergency room. In the emergency room, he was alert originally, and was given Ativan later, hence now he is somnolent. The mother reports that he is responding appropriately and has no change in his mental status. At baseline he is nonverbal, but he makes his needs known. He ambulates on his own, he eats on his own, and he does not wear a diaper. He asks to use the bathroom. He does need help dressing sometimes. PAST MEDICAL HISTORY: Notable for the seizure disorder since age 10. SOCIAL HISTORY: No history of cigarette, alcohol, or substance use. He goes to a day program. He is allergic to CEFZIL and apparently had a rash to it at one point. On Sunday, the mother started him on Keflex for hydradenitis under his right axilla. He had taken 3 doses on Sunday and Sunday developed the diarrhea. There is no history of any recent travel. He has recently had a seizure about 2 weeks ago. He did have a seizure, after which his behavior was completely normal. REVIEW OF SYSTEMS: She has not noted any other health issues. SURGICAL HISTORY: He has had hernia surgery in the past. He is sedated because apparently he received some Ativan 2 mg in the emergency room at [place]. He was also given vancomycin and Azactam 1 dose each. He was then transferred to [facility]. PHYSICAL EXAMINATION: General: He is resting comfortably. He is responsive, he opens his eyes. Vital signs: He has had no fever whatsoever. Temperature 98.9, pulse 104, blood pressure 191/110, respiratory rate of 18. HEENT: Normocephalic. Eyes are anicteric. He has 2 lesions on his tongue which look like dry blisters. He does open his mouth on request. Neck: Supple. He has some hydradenitis under his right axilla, none under the left. He has on his head a healing scar where, she says, he had a pimple that he picked at. Heart: Regular rate and rhythm. Lungs: Clear to auscultation. Abdomen: Soft, nontender. Extremities: Without edema. LABORATORY: On admission were notable for a white count of 23.3, hemoglobin 8.9, platelets of 104. Chemistry is notable for a sodium of 124, potassium 6.4, bicarbonate 15, BUN and creatinine of 168 and 20, lactic acid was 2.3, on repeat was 0.5. He had a troponin of 0.1 and his albumin was 2. Urinalysis had 3+ protein, 3+ blood. Blood cultures and urine cultures were sent. He had a chest x-ray that showed no active pulmonary disease. He had a CT of his abdomen and pelvis done that showed a small left pleural effusion, a small left basal opacity in the lungs, small to moderate amount of fluid in the lower pelvis, mild nonspecific thickening of the left anterior pararenal fascia and mild ileus. IMPRESSION: 1. In summary, this is a 22-year-old man admitted in acute renal failure. Blood work is highly suggestive that this may be chronic given the creatinine of 20. Suspect this could be related to hypertension given his blood pressure that was noted on admission. Source of his leukocytosis is not clear at this time. It seems reasonable to cover him for skin gurpreet given the hydradenitis and the recent pimple on his forehead. He received a dose of vancomycin. Would just repeat a random vancomycin level in the morning given his renal failure. He did have transient diarrhea raising the possibility of I guess hemolytic uremic syndrome. Would await repeat labs, which have all been sent. CBC and chemistries. Would add on LDH and haptoglobin as well. Given the nature of his antibiotic allergies, he is allergic to CEFZIL but apparently he tolerates Keflex, which his mother has given him. She says he tolerates Augmentin without any difficulty as well. Currently he received the vancomycin, again would check a level in the morning and would continue him on empiric gram-negative coverage with the Azactam and recommendations to follow. 2. Renal failure. He is to be evaluated. Repeat labs have been sent, and he is going to be evaluated by nephrology for further evaluation. AMARILYS BILLY M.D. [id number]
[2017-08-30] MEDS: CHLORHEXIDINE GLUCONATE 4% CLEANSER FOR DECOLONIZATION TP SCH ×3 (00:14→22:08)
[2017-08-30] MEDS: MUPIROCIN 2% TOPICAL OINTMENT FOR DECOLONIZATION NS SCH ×3 (00:14→22:04)
[2017-08-30] MEDS ORDERED: morphine SULFATE 4 MG/ML VIAL IVPUSH ONE (02:25)
[2017-08-30] MEDS ORDERED: LABETALOL HCL 5 MG/1 ML (100MG/20 ML VIAL) IVPUSH ONE ×3 (06:00→08:30)
[2017-08-30 06:34] LABS: BASO % 0.2 % (0-2.0); EOS % 0.1 % (0-4.5); HEMATOCRIT 21.9 % (35.4-49); HEMOGLOBIN 7.8 GM/dL (11.7-16.9); LYMPH % 11.2 % (8-40); MCH 29.9 pg (25.7-33.7); MCHC 35.7 g/dl (32.0-35.9); MEAN CELL VOLUME 83.8 fl (80-96); MEAN PLT VOLUME 7.7 fl (7.5-11.1); MONO % 13.3 % (3.8-10.2); NEUT % 75.2 % (42.8-82.8); PLATELET COUNT 64 K/MM3 (134-434); RBC 2.62 M/mm3 (4.00-5.60); RDW 13.8 % (11.9-15.9); WHITE BLOOD COUNT 9.5 K/mm3 (4.0-10.0)
[2017-08-30 06:58] LABS: INR 1.03 (0.82-1.09); PROTHROMBIN TIME (PATIENT) 11.6 SEC (9.98-11.88)
[2017-08-30 07:01] LABS: ACTIVATED PTT 27.9 SECONDS (26.9-34.4)
[2017-08-30 07:19] LABS: CHLORIDE 98 mmol/L (98-107); POTASSIUM 3.8 mmol/L (3.5-5.1); SODIUM 139 mmol/L (136-145)
[2017-08-30 07:33] LABS: ALBUMIN 1.7 g/dl (3.4-5.0); ALK PHOS 53 U/L (45-117); ANION GAP 16 (8-16); BILIRUBIN,TOTAL 0.5 mg/dL (0.2-1.0); BLOOD UREA NITROGEN 99 mg/dL (7-18); CALCIUM 7.3 mg/dL (8.5-10.1); CO2 25 mmol/L (21-32); GLUCOSE,RANDOM 81 mg/dL (74-106); MAGNESIUM 2.1 mg/dL (1.8-2.4); SGOT/AST 33 U/L (15-37); SGPT/ALT 8 U/L (12-78); TOT PROT 4.4 g/dl (6.4-8.2)
--- NOTE | 2017-08-30 07:38 | PN ---
Progress Note, Physician Chief Complaint: ID Remains stable No fever Parents say still has diarrhea - Current Medication List Current Medications: Active Medications Chlorhexidine Gluconate (Hibiclens For Decolonization -) 1 applic TP HS [facility] Last Admin: 08/30/17 00:14 Dose: 1 applic Sodium Chloride (Normal Saline -) 250 mls @ 3,000 mls/hr IV PRN PRN PRN Reason: Hypotension during Dialysis Stop: 08/30/17 19:43 Mupirocin (Bactroban Ointment (For Decolonization) -) 1 applic NS BID [facility] Stop: 09/03/17 21:59 Last Admin: 08/30/17 00:14 Dose: 1 applic - Objective Vital Signs: Vital Signs Temperature 98.9 F 08/30/17 02:00 Pulse Rate 102 H 08/30/17 06:00 Respiratory Rate 18 08/30/17 06:00 Blood Pressure 181/128 08/30/17 06:00 O2 Sat by Pulse Oximetry (%) 95 08/29/17 21:00 Constitutional: Yes: No Distress Cardiovascular: Yes: S1, S2 Respiratory: Yes: WNL, Regular, CTA Bilaterally Gastrointestinal: Yes: Soft. No: Tenderness Edema: No Labs: CBC, BMP 08/30/17 06:05 INR, PTT INR 1.03 (0.82-1.09) 08/30/17 06:05 Fibrinogen 579.0 mg/dL (238-498) H 08/29/17 20:00 Assessment/Plan Microbiology Laboratory Tests 08/29/17 08/30/17 08/30/17 18:00 06:05 06:05 WBC 9.5 RBC 2.62 L Hct 21.9 L Plt Count 64 L Retic Count 2.13 H D BUN 157 H* D Creatinine 20.5 H* D Calcium 6.9 L* D Total Bilirubin 0.3 D AST 36 D ALT 9 L D Alkaline Phosphatase 51 D Assessment Acute and chronic renal failure ? precipitated by gastroenteritis Anemia thrombocytopenia ? HUS Plan Await cultures blood Send stool cultures enteric and Rota virus For now no further antiibotics [place] BILLS
[2017-08-30] MEDS ORDERED: LABETALOL HCL 5 MG/1 ML (100MG/20 ML VIAL) IVPUSH PRN ×2 (07:39→08:03)
[2017-08-30] MEDS ORDERED: hydrALAZINE HCL 20 MG/ML VIAL IVPUSH ONE (07:54)
[2017-08-30 08:14] LABS: CREATININE 14.6 mg/dL (0.7-1.3)
[2017-08-30] MEDS ORDERED: LABETALOL HCL 100 MG TABLET (FP) PO ONE (09:00)
--- NOTE | 2017-08-30 09:43 | PN ---
Progress Note (short form) - Note Progress Note: pt seen and examined. improved compared to yesterday Constitutional: Yes: Calm Eyes: Yes: Conjunctiva Clear HENT: Yes: Atraumatic, Normocephalic Neck: Yes: Supple Cardiovascular: Yes: Regular Rate and Rhythm Respiratory: Yes: Regular Gastrointestinal: Yes: Normal Bowel Sounds, Soft, Abdomen, Obese Extremities: Yes: WNL Edema: No Neurological: Yes: Alert, Other (aphasic) Last Vital Signs Temp Pulse Resp BP Pulse Ox 98.8 F 102 H 28 H 202/130 95 08/30/17 08:00 08/30/17 09:00 08/30/17 09:00 08/30/17 09:00 08/29/17 21:00 CBC, BMP 08/30/17 06:05 08/30/17 06:05 Current Medications Generic Name Dose Route Start Last Admin Trade Name Freq PRN Reason Stop Dose Admin Chlorhexidine Gluconate 1 applic 08/29/17 22:00 08/30/17 00:14 Hibiclens For Decolonization - TP [address] Administration Sodium Chloride 250 mls @ 3,000 mls/hr 08/29/17 19:43 Normal Saline - IV 08/30/17 19:43 PRN PRN Hypotension during Dialysis Labetalol HCl 10 mg 08/30/17 08:03 Normodyne Injection - IVPUSH Q6H PRN HYPERTENSION Labetalol HCl 100 mg 08/30/17 14:00 Normodyne - PO TID LANE Mupirocin 1 applic 08/29/17 22:00 08/30/17 09:23 Bactroban Ointment (For Decolonization) - NS 09/03/17 21:[address] Administration HTN crisis Thrombocytopenia Renal failure autism epilepsy would think that theres an AI condition/HTN causing ARF ( h/o CKD) rather than a primary heme disorder causing HUS/aHUS. Consider Kidney biopsy Heme parameters improved post HD will review smear again will continue supportive care daily labs. Problem List - Problems (1) Acute renal failure Code(s): N17.9 - ACUTE KIDNEY FAILURE, UNSPECIFIED Qualifiers: Acute renal failure type: unspecified Qualified Code(s): N17.9 - Acute kidney failure, unspecified (2) Anemia Code(s): D64.9 - ANEMIA, UNSPECIFIED (3) Thrombocytopenia Code(s): D69.6 - THROMBOCYTOPENIA, UNSPECIFIED (4) Hypertensive urgency Code(s): I16.0 - HYPERTENSIVE URGENCY (5) Seizure Code(s): R56.9 - UNSPECIFIED CONVULSIONS
[2017-08-30 09:52] LABS: PHOSPHOROUS 8.2 mg/dL (2.5-4.9)
[2017-08-30] MEDS ORDERED: NICARDIPINE 25 MG in DEXTROSE 5%-WATER - 240 ML IVPB SCH (10:00)
[2017-08-30] MEDS ORDERED: SODIUM CHLORIDE 250 ML IV PRN (10:07)
--- NOTE | 2017-08-30 11:04 | EKG ---
Test Reason : Blood Pressure : / mmHG Vent. Rate : 100 BPM Atrial Rate : 100 BPM P-R Int : 184 ms QRS Dur : 120 ms QT Int : 400 ms P-R-T Axes : 048 -28 062 degrees QTc Int : 516 ms NORMAL SINUS RHYTHM NON-SPECIFIC INTRA-VENTRICULAR CONDUCTION DELAY BORDERLINE ECG WHEN COMPARED WITH ECG OF 29-AUG-2017 11:01, NON-SPECIFIC INTRA-VENTRICULAR CONDUCTION DELAY HAS REPLACED INCOMPLETE RIGHT BUNDLE BRANCH BLOCK Confirmed by SURINDER BILLS, GRAEME ([id number]) on 08/30/2017 11:03:51 AM Referred By: Confirmed By:GRAEME CADENA MD
[2017-08-30] MEDS ORDERED: niCARdipine HCL 25 MG/10 ML AMPUL IVPB ONE ×3 (11:32→21:54)
[2017-08-30 11:43] LABS: LDH 1006 U/L (87-241)
--- NOTE | 2017-08-30 12:03 | PN ---
Progress Note (short form) - Note Progress Note: full consult dictated. vein mapping ordered. will check with Dr. Velasquez about timing of permanent access
--- NOTE | 2017-08-30 12:29 | PN ---
Teaching Attending Note Name of Resident: Rashel Iniguez ATTENDING PHYSICIAN STATEMENT I saw and evaluated the patient. I reviewed the resident's note and discussed the case with the resident. I agree with the resident's findings and plan as documented. SUBJECTIVE: Patient seen and examined in the ICU. Awake on VM O2. Parents at the bedside. They report that his mental status is slightly worse than his baseline, but better than yesterday. S/P acute HD yesterday. Uncontrolled HTN. Intake & Output 08/27/17 08/28/17 08/29/17 08/30/17 23:59 23:59 23:59 23:59 Intake Total 1875 560 Output Total 80 200 Balance 1795 360 Weight 180 lb Last Vital Signs Temp Pulse Resp BP Pulse Ox 98.6 F 108 H 26 H 185/128 95 08/30/17 12:00 08/30/17 12:00 08/30/17 12:00 08/30/17 12:00 08/29/17 21:00 Active Medications Chlorhexidine Gluconate (Hibiclens For Decolonization -) [address] Last Admin: 08/30/17 00:14 Dose: 1 applic Sodium Chloride (Normal Saline -) 250 mls @ 3,000 mls/hr IV PRN PRN PRN Reason: Hypotension during Dialysis Stop: 08/30/17 19:43 Nicardipine HCl 25 mg/ (Dextrose) 250 mls @ 25 mls/hr IVPB TITR LANE; 2.5 MG/HR PRN Reason: Protocol Last Admin: 08/30/17 11:34 Dose: 2.5 mg/hr, 25 mls/hr Sodium Chloride (Normal Saline -) 250 mls @ 3,000 mls/hr IV PRN PRN PRN Reason: Hypotension during Dialysis Stop: 08/31/17 10:07 Mupirocin (Bactroban Ointment (For Decolonization) -) [address] Stop: 09/03/17 21:59 Last Admin: 08/30/17 09:23 Dose: 1 applic Constitutional: Yes: No Distress Eyes: Yes: WNL, PERRL HENT: Yes: Atraumatic, Normocephalic Neck: Yes: Supple, Trachea Midline Cardiovascular: Yes: Regular Rate and Rhythm, Tachycardia, S1, S2 Respiratory: Yes: CTA Bilaterally Gastrointestinal: Yes: Normal Bowel Sounds, Soft, Other (non tender) Renal/: Yes: Ruiz Present Extremities: Yes: WNL Edema: No Peripheral Pulses WNL: Yes Integumentary: Yes: WNL Neurological: Yes: Somnolent, non-focal ...Motor Strength: WNL Psychiatric: Yes: Other Labs: Laboratory Results - last 24 hr 08/29/17 08/29/17 08/29/17 10:50 10:52 10:52 WBC RBC Hgb Hct MCV MCH MCHC RDW Plt Count MPV Neutrophils % Neutrophils % (Manual) 85.0 H Band Neutrophils % 5.0 Lymphocytes % Lymphocytes % (Manual) 4.0 L Monocytes % Monocytes % (Manual) 2 L Eosinophils % Basophils % Metamyelocytes 3 H Anisocytosis 1+ Tear Drop Cells 1+ Ovalocytes 1+ Fragmented RBCs 1+ Morphology Comment Retic Count PT with INR INR PTT (Actin FS) Fibrinogen Sodium Potassium Chloride Carbon Dioxide Anion Gap BUN Creatinine Creat Clearance w eGFR Random Glucose Lactic Acid Calcium Phosphorus Magnesium Ferritin Total Bilirubin AST ALT Alkaline Phosphatase LD Total Creatine Kinase Creatine Kinase Index CK-MB (CK-2) Troponin I Total Protein Albumin Lipase Vitamin B12 TSH Free T4 Urine RBC Urine WBC Ur Epithelial Cells Urine Bacteria U Random Total Protein Ur Random Sodium Urine Creatinine Random Vancomycin Valproic Acid Blood Type O POSITIVE O POSITIVE Antibody Screen Negative Direct Antiglob Test Crossmatch 08/29/17 08/29/17 08/29/17 10:52 10:52 10:52 WBC RBC Hgb Hct MCV MCH MCHC RDW Plt Count MPV Neutrophils % Neutrophils % (Manual) Band Neutrophils % Lymphocytes % Lymphocytes % (Manual) Monocytes % Monocytes % (Manual) Eosinophils % Basophils % Metamyelocytes Anisocytosis Tear Drop Cells Ovalocytes Fragmented RBCs Morphology Comment Retic Count PT with INR INR PTT (Actin FS) Fibrinogen Sodium Potassium Chloride Carbon Dioxide Anion Gap BUN Creatinine Creat Clearance w eGFR Random Glucose Lactic Acid 2.3 H* Calcium Phosphorus Magnesium Ferritin Total Bilirubin AST ALT Alkaline Phosphatase LD Total Creatine Kinase Creatine Kinase Index CK-MB (CK-2) Troponin I Total Protein Albumin Lipase 186 Vitamin B12 TSH Free T4 Urine RBC >50 Urine WBC 3-5 Ur Epithelial Cells Few Urine Bacteria None seen U Random Total Protein Ur Random Sodium Urine Creatinine Random Vancomycin Valproic Acid Blood Type Antibody Screen Direct Antiglob Test Crossmatch 08/29/17 08/29/17 08/29/17 12:37 12:37 12:37 WBC RBC Hgb Hct MCV MCH MCHC RDW Plt Count MPV Neutrophils % Neutrophils % (Manual) Band Neutrophils % Lymphocytes % Lymphocytes % (Manual) Monocytes % Monocytes % (Manual) Eosinophils % Basophils % Metamyelocytes Anisocytosis Tear Drop Cells Ovalocytes Fragmented RBCs Morphology Comment Retic Count PT with INR 11.3 INR 1.01 PTT (Actin FS) Fibrinogen Sodium 124 L* Potassium 6.4 H* Chloride 95 L Carbon Dioxide 15 L Anion Gap 14 BUN 168 H* Creatinine 20.5 H* Creat Clearance w eGFR 2.84 Random Glucose 101 Lactic Acid Calcium 7.0 L Phosphorus Magnesium Ferritin Total Bilirubin 0.7 AST 32 ALT 9 L Alkaline Phosphatase 52 LD Total Creatine Kinase 373 H Creatine Kinase Index 2.5 CK-MB (CK-2) 9.4 H Troponin I 0.10 H Total Protein 4.8 L Albumin 2.0 L Lipase Vitamin B12 TSH 5.20 H Free T4 Urine RBC Urine WBC Ur Epithelial Cells Urine Bacteria U Random Total Protein Ur Random Sodium Urine Creatinine Random Vancomycin Valproic Acid Blood Type Antibody Screen Direct Antiglob Test Crossmatch 08/29/17 08/29/17 08/29/17 12:37 16:04 16:04 WBC RBC Hgb Hct MCV MCH MCHC RDW Plt Count MPV Neutrophils % Neutrophils % (Manual) Band Neutrophils % Lymphocytes % Lymphocytes % (Manual) Monocytes % Monocytes % (Manual) Eosinophils % Basophils % Metamyelocytes Anisocytosis Tear Drop Cells Ovalocytes Fragmented RBCs Morphology Comment Retic Count PT with INR INR PTT (Actin FS) Fibrinogen Sodium Potassium Chloride Carbon Dioxide Anion Gap BUN Creatinine Creat Clearance w eGFR Random Glucose Lactic Acid 0.5 0.7 Calcium Phosphorus Magnesium Ferritin Total Bilirubin AST ALT Alkaline Phosphatase LD Total Creatine Kinase Creatine Kinase Index CK-MB (CK-2) Troponin I Total Protein Albumin Lipase Vitamin B12 TSH Free T4 Urine RBC Urine WBC Ur Epithelial Cells Urine Bacteria U Random Total Protein Ur Random Sodium Urine Creatinine Random Vancomycin Valproic Acid Blood Type O POSITIVE Antibody Screen Negative Direct Antiglob Test Crossmatch 08/29/17 08/29/17 08/29/17 18:00 18:00 19:11 WBC 13.5 H RBC 2.53 L D Hgb 7.3 L D Hct 20.9 L D MCV 82.6 MCH 28.6 MCHC 34.7 RDW 13.8 Plt Count 55 L D MPV 8.1 Neutrophils % Neutrophils % (Manual) Band Neutrophils % Lymphocytes % Lymphocytes % (Manual) Monocytes % Monocytes % (Manual) Eosinophils % Basophils % Metamyelocytes Anisocytosis Tear Drop Cells Ovalocytes Fragmented RBCs Morphology Comment See comment Retic Count PT with INR INR PTT (Actin FS) Fibrinogen Sodium 132 L Potassium 4.8 Chloride 97 L D Carbon Dioxide 15 L D Anion Gap 20 H BUN 157 H* D Creatinine 20.5 H* D Creat Clearance w eGFR 2.84 Random Glucose 74 D Lactic Acid Calcium 6.9 L* D Phosphorus Magnesium Ferritin Total Bilirubin 0.3 D AST 36 D ALT 9 L D Alkaline Phosphatase 51 D LD Total Creatine Kinase Creatine Kinase Index CK-MB (CK-2) Troponin I 0.15 H Total Protein 4.2 L D Albumin 1.6 L D Lipase Vitamin B12 TSH Free T4 Urine RBC Urine WBC Ur Epithelial Cells Urine Bacteria U Random Total Protein 1044 H Ur Random Sodium 45 Urine Creatinine 64.4 Random Vancomycin Valproic Acid Blood Type Antibody Screen Direct Antiglob Test Crossmatch 08/29/17 08/29/17 08/29/17 20:00 20:00 20:00 WBC RBC Hgb Hct MCV MCH MCHC RDW Plt Count MPV Neutrophils % Neutrophils % (Manual) Band Neutrophils % Lymphocytes % Lymphocytes % (Manual) Monocytes % Monocytes % (Manual) Eosinophils % Basophils % Metamyelocytes Anisocytosis Tear Drop Cells Ovalocytes Fragmented RBCs Morphology Comment Retic Count PT with INR INR PTT (Actin FS) Fibrinogen 579.0 H Sodium Potassium Chloride Carbon Dioxide Anion Gap BUN Creatinine Creat Clearance w eGFR Random Glucose Lactic Acid Calcium Phosphorus Magnesium Ferritin 1092.933 H Total Bilirubin AST ALT Alkaline Phosphatase LD Total Creatine Kinase Creatine Kinase Index CK-MB (CK-2) Troponin I Total Protein Albumin Lipase Vitamin B12 TSH Free T4 Urine RBC Urine WBC Ur Epithelial Cells Urine Bacteria U Random Total Protein Ur Random Sodium Urine Creatinine Random Vancomycin Valproic Acid Blood Type Antibody Screen Direct Antiglob Test Negative Crossmatch See Detail 08/29/17 08/29/17 08/29/17 20:00 20:00 20:00 WBC 13.3 H RBC 2.51 L Hgb 7.2 L Hct 21.0 L MCV 83.7 MCH 28.6 MCHC 34.2 RDW 14.1 Plt Count 55 L MPV 8.6 Neutrophils % 83.5 H D Neutrophils % (Manual) Band Neutrophils % Lymphocytes % 6.1 L D Lymphocytes % (Manual) Monocytes % 10.2 Monocytes % (Manual) Eosinophils % 0.0 D Basophils % 0.2 Metamyelocytes Anisocytosis Tear Drop Cells Ovalocytes Fragmented RBCs Morphology Comment Retic Count 2.89 H PT with INR INR PTT (Actin FS) Fibrinogen Sodium Potassium Chloride Carbon Dioxide Anion Gap BUN Creatinine Creat Clearance w eGFR Random Glucose Lactic Acid Calcium Phosphorus Magnesium Ferritin Total Bilirubin AST ALT Alkaline Phosphatase LD Total 1254 H Creatine Kinase Creatine Kinase Index CK-MB (CK-2) Troponin I Total Protein Albumin Lipase Vitamin B12 TSH Free T4 Urine RBC Urine WBC Ur Epithelial Cells Urine Bacteria U Random Total Protein Ur Random Sodium Urine Creatinine Random Vancomycin Valproic Acid Blood Type Antibody Screen Direct Antiglob Test Crossmatch 08/29/17 08/30/17 08/30/17 20:00 00:45 00:45 WBC RBC Hgb Hct MCV MCH MCHC RDW Plt Count MPV Neutrophils % Neutrophils % (Manual) Band Neutrophils % Lymphocytes % Lymphocytes % (Manual) Monocytes % Monocytes % (Manual) Eosinophils % Basophils % Metamyelocytes Anisocytosis Tear Drop Cells Ovalocytes Fragmented RBCs Morphology Comment Retic Count PT with INR 11.60 INR 1.03 PTT (Actin FS) 33.3 Fibrinogen Sodium Potassium Chloride Carbon Dioxide Anion Gap BUN Creatinine Creat Clearance w eGFR Random Glucose Lactic Acid Calcium Phosphorus Magnesium Ferritin Total Bilirubin AST ALT Alkaline Phosphatase LD Total Creatine Kinase Creatine Kinase Index CK-MB (CK-2) Troponin I 0.17 H Total Protein Albumin Lipase Vitamin B12 TSH Free T4 Urine RBC Urine WBC Ur Epithelial Cells Urine Bacteria U Random Total Protein Ur Random Sodium Urine Creatinine Random Vancomycin Valproic Acid 32.285 L Blood Type Antibody Screen Direct Antiglob Test Crossmatch 08/30/17 08/30/17 08/30/17 06:05 06:05 06:05 WBC 9.5 RBC 2.62 L Hgb 7.8 L Hct 21.9 L MCV 83.8 MCH 29.9 MCHC 35.7 RDW 13.8 Plt Count 64 L MPV 7.7 D Neutrophils % 75.2 Neutrophils % (Manual) Band Neutrophils % Lymphocytes % 11.2 D Lymphocytes % (Manual) Monocytes % 13.3 H Monocytes % (Manual) Eosinophils % 0.1 D Basophils % 0.2 Metamyelocytes Anisocytosis Tear Drop Cells Ovalocytes Fragmented RBCs Morphology Comment Retic Count PT with INR INR PTT (Actin FS) Fibrinogen Sodium 139 Potassium 3.8 D Chloride 98 Carbon Dioxide 25 D Anion Gap 16 BUN 99 H D Creatinine 14.6 H* D Creat Clearance w eGFR 4.20 Random Glucose 81 Lactic Acid Calcium 7.3 L Phosphorus 8.2 H Magnesium 2.1 Ferritin Total Bilirubin 0.5 D AST 33 ALT 8 L Alkaline Phosphatase 53 LD Total 1006 H Creatine Kinase Creatine Kinase Index CK-MB (CK-2) Troponin I 0.25 H D Total Protein 4.4 L Albumin 1.7 L Lipase Vitamin B12 331 TSH Free T4 Urine RBC Urine WBC Ur Epithelial Cells Urine Bacteria U Random Total Protein Ur Random Sodium Urine Creatinine Random Vancomycin 9.573 Valproic Acid Blood Type Antibody Screen Direct Antiglob Test Crossmatch 08/30/17 08/30/17 08/30/17 06:05 06:05 06:05 WBC RBC Hgb Hct MCV MCH MCHC RDW Plt Count MPV Neutrophils % Neutrophils % (Manual) Band Neutrophils % Lymphocytes % Lymphocytes % (Manual) Monocytes % Monocytes % (Manual) Eosinophils % Basophils % Metamyelocytes Anisocytosis Tear Drop Cells Ovalocytes Fragmented RBCs Morphology Comment Retic Count 2.13 H D PT with INR INR PTT (Actin FS) Fibrinogen Sodium Potassium Chloride Carbon Dioxide Anion Gap BUN Creatinine Creat Clearance w eGFR Random Glucose Lactic Acid Calcium Phosphorus Magnesium Ferritin Total Bilirubin AST ALT Alkaline Phosphatase LD Total Cancelled Creatine Kinase Creatine Kinase Index CK-MB (CK-2) Troponin I Total Protein Albumin Lipase Vitamin B12 Cancelled TSH Free T4 0.73 L Urine RBC Urine WBC Ur Epithelial Cells Urine Bacteria U Random Total Protein Ur Random Sodium Urine Creatinine Random Vancomycin Valproic Acid Blood Type Antibody Screen Direct Antiglob Test Crossmatch 08/30/17 08/30/17 06:05 06:05 WBC RBC Hgb Hct MCV MCH MCHC RDW Plt Count MPV Neutrophils % Neutrophils % (Manual) Band Neutrophils % Lymphocytes % Lymphocytes % (Manual) Monocytes % Monocytes % (Manual) Eosinophils % Basophils % Metamyelocytes Anisocytosis Tear Drop Cells Ovalocytes Fragmented RBCs Morphology Comment Retic Count PT with INR 11.60 INR 1.03 PTT (Actin FS) 27.9 Fibrinogen Sodium Potassium Chloride Carbon Dioxide Anion Gap BUN Creatinine Creat Clearance w eGFR Random Glucose Lactic Acid Calcium Phosphorus Magnesium Ferritin Total Bilirubin AST ALT Alkaline Phosphatase LD Total Creatine Kinase Creatine Kinase Index CK-MB (CK-2) Troponin I Cancelled Total Protein Albumin Lipase Vitamin B12 TSH Free T4 Urine RBC Urine WBC Ur Epithelial Cells Urine Bacteria U Random Total Protein Ur Random Sodium Urine Creatinine Random Vancomycin Valproic Acid Blood Type Antibody Screen Direct Antiglob Test Crossmatch Problem List - Problems (1) Hypertensive urgency Code(s): I16.0 - HYPERTENSIVE URGENCY (2) Hyperkalemia Code(s): E87.5 - HYPERKALEMIA (3) Anemia Code(s): D64.9 - ANEMIA, UNSPECIFIED (4) Thrombocytopenia Code(s): D69.6 - THROMBOCYTOPENIA, UNSPECIFIED (5) Acute renal failure Code(s): N17.9 - ACUTE KIDNEY FAILURE, UNSPECIFIED Qualifiers: Acute renal failure type: unspecified Qualified Code(s): N17.9 - Acute kidney failure, unspecified Assessment/Plan HD per Renal Cardene for BP control Strict I&O Heme workup ongoing Normal transfusion thresholds Follow cultures Off ABX per ID Aspiration precautions ICU monitoring Dr Isidro Critical care time spent in reviewing chart, evaluating patient and formulating plan - 36 minutes.
--- NOTE | 2017-08-30 13:07 | CONS ---
DATE OF CONSULTATION: 08/30/2017 TYPE OF CONSULTATION: Vascular surgery. REQUESTING PHYSICIAN: Rani Velasquez MD CHIEF COMPLAINT: End-stage renal disease. HISTORY OF PRESENT ILLNESS: A 22-year-old man who has a history of non-verbal autism and seizure disorder, who was with his parents, presented to the hospital in a hypertensive crisis with renal failure as well as diarrhea. During the hospitalization, he was initiated on hemodialysis with a non-tunneled hemodialysis catheter placed in the right IJ vein. Vascular Surgery was consulted for permanent access. PAST MEDICAL HISTORY: Autism, seizure disorder. PAST SURGICAL HISTORY: Hernia repair as infant. ALLERGIES: CEFPROZIL. MEDICATIONS: Reviewed. FAMILY HISTORY: Reviewed and noncontributory. SOCIAL HISTORY: No alcohol, smoking, or illicit drug use. Patient lives with parents, is nonverbal. History is per father who is at the bedside. REVIEW OF SYSTEMS: Unobtainable due to the patient being nonverbal. PHYSICAL EXAMINATION: Vital Signs: Afebrile. Vital signs stable. General: No acute distress, uncooperative. HEENT: Normocephalic, atraumatic. Neck: Supple. Heart: S1, S2. Lungs: Clear to auscultation bilaterally. Abdomen: Soft, nontender, nondistended. Extremities: Medial, ulnar, and brachial pulses are intact to both arms. There is some edema noted. LABORATORY RESULTS: Reviewed. IMAGING STUDIES: Reviewed. ASSESSMENT AND PLAN: A 22-year-old man in need of permanent dialysis access. Will plan to set up PermCath and fistula at some point when the patient is stable. MAVIS TIJERINA M.D. [id number]
--- NOTE | 2017-08-30 13:39 | PN ---
<Rashel Iniguez - Last Filed: 08/30/17 13:29> Physical Exam: SUBJECTIVE: Patient seen and examined Pt s/p emergent HD last night, 2 units of PRBCs, 2 units of FFP, still with severe HTN. This am, pt found lying in bed, with increased work of breathing. Pt is non-verbal. OBJECTIVE: Vital Signs Period Temp Pulse Resp BP Sys/Mora Pulse Ox Last 24 Hr 98 F-98.9 F 94-114 18-30 178-220/107-150 95-100 GENERAL: young male with autism, lying in bed, non-verbal HEENT: PEARRLA, EOMI LUNGS: CTAB HEART: tachycardia, regular rhythm, no murmurs ABDOMEN: soft, NT, ND EXTREMITIES: 2+ pulses, warm, well-perfused, no edema. NEUROLOGICAL: EOMI, PEARRLA Laboratory Results - last 24 hr 08/29/17 08/29/17 08/29/17 10:50 10:52 10:52 WBC RBC Hgb Hct MCV MCH MCHC RDW Plt Count MPV Neutrophils % Neutrophils % (Manual) 85.0 H Band Neutrophils % 5.0 Lymphocytes % Lymphocytes % (Manual) 4.0 L Monocytes % Monocytes % (Manual) 2 L Eosinophils % Basophils % Metamyelocytes 3 H Anisocytosis 1+ Tear Drop Cells 1+ Ovalocytes 1+ Fragmented RBCs 1+ Morphology Comment Retic Count PT with INR INR PTT (Actin FS) Fibrinogen Sodium Potassium Chloride Carbon Dioxide Anion Gap BUN Creatinine Creat Clearance w eGFR Random Glucose Lactic Acid Calcium Phosphorus Magnesium Ferritin Total Bilirubin AST ALT Alkaline Phosphatase LD Total Creatine Kinase Creatine Kinase Index CK-MB (CK-2) Troponin I Total Protein Albumin Vitamin B12 TSH Free T4 U Random Total Protein Ur Random Sodium Urine Creatinine Random Vancomycin Valproic Acid Blood Type O POSITIVE O POSITIVE Antibody Screen Negative Direct Antiglob Test Crossmatch 08/29/17 08/29/17 08/29/17 10:52 12:37 12:37 WBC RBC Hgb Hct MCV MCH MCHC RDW Plt Count MPV Neutrophils % Neutrophils % (Manual) Band Neutrophils % Lymphocytes % Lymphocytes % (Manual) Monocytes % Monocytes % (Manual) Eosinophils % Basophils % Metamyelocytes Anisocytosis Tear Drop Cells Ovalocytes Fragmented RBCs Morphology Comment Retic Count PT with INR 11.3 INR 1.01 PTT (Actin FS) Fibrinogen Sodium 124 L* Potassium 6.4 H* Chloride 95 L Carbon Dioxide 15 L Anion Gap 14 BUN 168 H* Creatinine 20.5 H* Creat Clearance w eGFR 2.84 Random Glucose 101 Lactic Acid 2.3 H* Calcium 7.0 L Phosphorus Magnesium Ferritin Total Bilirubin 0.7 AST 32 ALT 9 L Alkaline Phosphatase 52 LD Total Creatine Kinase 373 H Creatine Kinase Index 2.5 CK-MB (CK-2) 9.4 H Troponin I Total Protein 4.8 L Albumin 2.0 L Vitamin B12 TSH 5.20 H Free T4 U Random Total Protein Ur Random Sodium Urine Creatinine Random Vancomycin Valproic Acid Blood Type Antibody Screen Direct Antiglob Test Crossmatch 08/29/17 08/29/17 08/29/17 12:37 12:37 16:04 WBC RBC Hgb Hct MCV MCH MCHC RDW Plt Count MPV Neutrophils % Neutrophils % (Manual) Band Neutrophils % Lymphocytes % Lymphocytes % (Manual) Monocytes % Monocytes % (Manual) Eosinophils % Basophils % Metamyelocytes Anisocytosis Tear Drop Cells Ovalocytes Fragmented RBCs Morphology Comment Retic Count PT with INR INR PTT (Actin FS) Fibrinogen Sodium Potassium Chloride Carbon Dioxide Anion Gap BUN Creatinine Creat Clearance w eGFR Random Glucose Lactic Acid 0.5 0.7 Calcium Phosphorus Magnesium Ferritin Total Bilirubin AST ALT Alkaline Phosphatase LD Total Creatine Kinase Creatine Kinase Index CK-MB (CK-2) Troponin I 0.10 H Total Protein Albumin Vitamin B12 TSH Free T4 U Random Total Protein Ur Random Sodium Urine Creatinine Random Vancomycin Valproic Acid Blood Type Antibody Screen Direct Antiglob Test Crossmatch 08/29/17 08/29/17 08/29/17 16:04 18:00 18:00 WBC 13.5 H RBC 2.53 L D Hgb 7.3 L D Hct 20.9 L D MCV 82.6 MCH 28.6 MCHC 34.7 RDW 13.8 Plt Count 55 L D MPV 8.1 Neutrophils % Neutrophils % (Manual) Band Neutrophils % Lymphocytes % Lymphocytes % (Manual) Monocytes % Monocytes % (Manual) Eosinophils % Basophils % Metamyelocytes Anisocytosis Tear Drop Cells Ovalocytes Fragmented RBCs Morphology Comment See comment Retic Count PT with INR INR PTT (Actin FS) Fibrinogen Sodium 132 L Potassium 4.8 Chloride 97 L D Carbon Dioxide 15 L D Anion Gap 20 H BUN 157 H* D Creatinine 20.5 H* D Creat Clearance w eGFR 2.84 Random Glucose 74 D Lactic Acid Calcium 6.9 L* D Phosphorus Magnesium Ferritin Total Bilirubin 0.3 D AST 36 D ALT 9 L D Alkaline Phosphatase 51 D LD Total Creatine Kinase Creatine Kinase Index CK-MB (CK-2) Troponin I 0.15 H Total Protein 4.2 L D Albumin 1.6 L D Vitamin B12 TSH Free T4 U Random Total Protein Ur Random Sodium Urine Creatinine Random Vancomycin Valproic Acid Blood Type O POSITIVE Antibody Screen Negative Direct Antiglob Test Crossmatch 08/29/17 08/29/17 08/29/17 19:11 20:00 20:00 WBC RBC Hgb Hct MCV MCH MCHC RDW Plt Count MPV Neutrophils % Neutrophils % (Manual) Band Neutrophils % Lymphocytes % Lymphocytes % (Manual) Monocytes % Monocytes % (Manual) Eosinophils % Basophils % Metamyelocytes Anisocytosis Tear Drop Cells Ovalocytes Fragmented RBCs Morphology Comment Retic Count PT with INR INR PTT (Actin FS) Fibrinogen Sodium Potassium Chloride Carbon Dioxide Anion Gap BUN Creatinine Creat Clearance w eGFR Random Glucose Lactic Acid Calcium Phosphorus Magnesium Ferritin 1092.933 H Total Bilirubin AST ALT Alkaline Phosphatase LD Total Creatine Kinase Creatine Kinase Index CK-MB (CK-2) Troponin I Total Protein Albumin Vitamin B12 TSH Free T4 U Random Total Protein 1044 H Ur Random Sodium 45 Urine Creatinine 64.4 Random Vancomycin Valproic Acid Blood Type Antibody Screen Direct Antiglob Test Negative Crossmatch See Detail 08/29/17 08/29/17 08/29/17 20:00 20:00 20:00 WBC RBC Hgb Hct MCV MCH MCHC RDW Plt Count MPV Neutrophils % Neutrophils % (Manual) Band Neutrophils % Lymphocytes % Lymphocytes % (Manual) Monocytes % Monocytes % (Manual) Eosinophils % Basophils % Metamyelocytes Anisocytosis Tear Drop Cells Ovalocytes Fragmented RBCs Morphology Comment Retic Count 2.89 H PT with INR INR PTT (Actin FS) Fibrinogen 579.0 H Sodium Potassium Chloride Carbon Dioxide Anion Gap BUN Creatinine Creat Clearance w eGFR Random Glucose Lactic Acid Calcium Phosphorus Magnesium Ferritin Total Bilirubin AST ALT Alkaline Phosphatase LD Total 1254 H Creatine Kinase Creatine Kinase Index CK-MB (CK-2) Troponin I Total Protein Albumin Vitamin B12 TSH Free T4 U Random Total Protein Ur Random Sodium Urine Creatinine Random Vancomycin Valproic Acid Blood Type Antibody Screen Direct Antiglob Test Crossmatch 08/29/17 08/29/17 08/30/17 20:00 20:00 00:45 WBC 13.3 H RBC 2.51 L Hgb 7.2 L Hct 21.0 L MCV 83.7 MCH 28.6 MCHC 34.2 RDW 14.1 Plt Count 55 L MPV 8.6 Neutrophils % 83.5 H D Neutrophils % (Manual) Band Neutrophils % Lymphocytes % 6.1 L D Lymphocytes % (Manual) Monocytes % 10.2 Monocytes % (Manual) Eosinophils % 0.0 D Basophils % 0.2 Metamyelocytes Anisocytosis Tear Drop Cells Ovalocytes Fragmented RBCs Morphology Comment Retic Count PT with INR 11.60 INR 1.03 PTT (Actin FS) 33.3 Fibrinogen Sodium Potassium Chloride Carbon Dioxide Anion Gap BUN Creatinine Creat Clearance w eGFR Random Glucose Lactic Acid Calcium Phosphorus Magnesium Ferritin Total Bilirubin AST ALT Alkaline Phosphatase LD Total Creatine Kinase Creatine Kinase Index CK-MB (CK-2) Troponin I Total Protein Albumin Vitamin B12 TSH Free T4 U Random Total Protein Ur Random Sodium Urine Creatinine Random Vancomycin Valproic Acid 32.285 L Blood Type Antibody Screen Direct Antiglob Test Crossmatch 08/30/17 08/30/17 08/30/17 00:45 06:05 06:05 WBC 9.5 RBC 2.62 L Hgb 7.8 L Hct 21.9 L MCV 83.8 MCH 29.9 MCHC 35.7 RDW 13.8 Plt Count 64 L MPV 7.7 D Neutrophils % 75.2 Neutrophils % (Manual) Band Neutrophils % Lymphocytes % 11.2 D Lymphocytes % (Manual) Monocytes % 13.3 H Monocytes % (Manual) Eosinophils % 0.1 D Basophils % 0.2 Metamyelocytes Anisocytosis Tear Drop Cells Ovalocytes Fragmented RBCs Morphology Comment Retic Count PT with INR INR PTT (Actin FS) Fibrinogen Sodium Potassium Chloride Carbon Dioxide Anion Gap BUN Creatinine Creat Clearance w eGFR Random Glucose Lactic Acid Calcium Phosphorus Magnesium Ferritin Total Bilirubin AST ALT Alkaline Phosphatase LD Total Creatine Kinase Creatine Kinase Index CK-MB (CK-2) Troponin I 0.17 H Total Protein Albumin Vitamin B12 TSH Free T4 U Random Total Protein Ur Random Sodium Urine Creatinine Random Vancomycin 9.573 Valproic Acid Blood Type Antibody Screen Direct Antiglob Test Crossmatch 08/30/17 08/30/17 08/30/17 06:05 06:05 06:05 WBC RBC Hgb Hct MCV MCH MCHC RDW Plt Count MPV Neutrophils % Neutrophils % (Manual) Band Neutrophils % Lymphocytes % Lymphocytes % (Manual) Monocytes % Monocytes % (Manual) Eosinophils % Basophils % Metamyelocytes Anisocytosis Tear Drop Cells Ovalocytes Fragmented RBCs Morphology Comment Retic Count PT with INR INR PTT (Actin FS) Fibrinogen Sodium 139 Potassium 3.8 D Chloride 98 Carbon Dioxide 25 D Anion Gap 16 BUN 99 H D Creatinine 14.6 H* D Creat Clearance w eGFR 4.20 Random Glucose 81 Lactic Acid Calcium 7.3 L Phosphorus 8.2 H Magnesium 2.1 Ferritin Total Bilirubin 0.5 D AST 33 ALT 8 L Alkaline Phosphatase 53 LD Total 1006 H Cancelled Creatine Kinase Creatine Kinase Index CK-MB (CK-2) Troponin I 0.25 H D Total Protein 4.4 L Albumin 1.7 L Vitamin B12 331 Cancelled TSH Free T4 0.73 L U Random Total Protein Ur Random Sodium Urine Creatinine Random Vancomycin Valproic Acid Blood Type Antibody Screen Direct Antiglob Test Crossmatch 08/30/17 08/30/17 08/30/17 06:05 06:05 06:05 WBC RBC Hgb Hct MCV MCH MCHC RDW Plt Count MPV Neutrophils % Neutrophils % (Manual) Band Neutrophils % Lymphocytes % Lymphocytes % (Manual) Monocytes % Monocytes % (Manual) Eosinophils % Basophils % Metamyelocytes Anisocytosis Tear Drop Cells Ovalocytes Fragmented RBCs Morphology Comment Retic Count 2.13 H D PT with INR 11.60 INR 1.03 PTT (Actin FS) 27.9 Fibrinogen Sodium Potassium Chloride Carbon Dioxide Anion Gap BUN Creatinine Creat Clearance w eGFR Random Glucose Lactic Acid Calcium Phosphorus Magnesium Ferritin Total Bilirubin AST ALT Alkaline Phosphatase LD Total Creatine Kinase Creatine Kinase Index CK-MB (CK-2) Troponin I Cancelled Total Protein Albumin Vitamin B12 TSH Free T4 U Random Total Protein Ur Random Sodium Urine Creatinine Random Vancomycin Valproic Acid Blood Type Antibody Screen Direct Antiglob Test Crossmatch Active Medications Generic Name Dose Route Start Last Admin Trade Name Freq PRN Reason Stop Dose Admin Chlorhexidine Gluconate 1 applic 08/29/17 22:00 08/30/17 00:14 Hibiclens For Decolonization - TP [address] Administration Sodium Chloride 250 mls @ 3,000 mls/hr 08/29/17 19:43 Normal Saline - IV 08/30/17 19:43 PRN PRN Hypotension during Dialysis Nicardipine HCl 25 mg/ 250 mls @ 25 mls/hr 08/30/17 10:00 08/30/17 12:30 Dextrose IVPB 5 mg/hr TITR LANE 50 mls/hr Protocol Titration 2.5 MG/HR Sodium Chloride 250 mls @ 3,000 mls/hr 08/30/17 10:07 Normal Saline - IV 08/31/17 10:07 PRN PRN Hypotension during Dialysis Mupirocin 1 applic 08/29/17 22:00 08/30/17 09:23 Bactroban Ointment (For Decolonization) - NS 09/03/17 21:[address] Administration ASSESSMENT/PLAN: 22M w/ hx of autism and seizure disorder who presented with severe HTN, anemia, thrombocytopenia, leukocytosis, hyperkalemia, and ANNA, admitted to ICU. CV #hypertensive urgency/emergency- unclear etiology -changed from PRN IV labetalol to nicardipine gtt -monitor MAPs, not to decrease more than 25% in 24 hours -nephrology on board #troponinemia- likely 2/2 renal failure and demand ischemia from HTN -continue to trend Hematology #anemia and thrombocytopenia -hematology on board, recs appreciated. HUS/TTP on differential. Pt is s/p 2 units of PRBCs and FFP -Hgb did not have adequate response to blood transfusions. Hgb went from 7.2--> 7.8. will recheck CBC at 2pm. Tbili normal so unlikely due to active hemolysis. ID #sepsis- leukocytosis, tachycardia- resolving -ID on board, Dr. Moise, recs appreciated. Hold abx for now as no fevers and leukocytosis decreased to 9.5. Nephro #hyperkalemia and ANNA -s/p emergent dialysis last night. creatinine: 20.5--> 14.6. Potassium of 3.8 this am -nephrology on board, will f/u recs regarding next round of dialysis Neuro #seizure disorder -neuro on board, f/u recs. home depakote held given risk of thrombocytopenia Resp #hypoxia -pt became hypoxic this am to mid 80s. Pt started on venti-mask -CXR: no consolidations GI #diarrhea -no episodes in hospital, continue to monitor FEN/ppx -no IVF or po fluids -electrolytes wnl -NPO -no GI ppx indicated -SCDs due to thrombocytopenia Case discussed with attending, Dr. Isidro. -Rashel Iniguez MD PGY1 ICU Team Visit type - Emergency Visit Emergency Visit: Yes ED Registration Date: 08/29/17 Care time: The patient presented to the Emergency Department on the above date and was hospitalized for further evaluation of their emergent condition. - New Patient This patient is new to me today: Yes Date on this admission: 08/30/17 - Critical Care Critical Care patient: Yes Total Critical Care Time (in minutes): 40 Critical Care Statement: The care of this patient involved high complexity decision making to prevent further life threatening deterioration of the patient 's condition and/or to evaluate & treat vital organ system(s) failure or risk of failure. <Donna Ness - Last Filed: 08/30/17 19:34> Physical Exam: SUBJECTIVE: Patient seen and examined OBJECTIVE: Vital Signs Period Temp Pulse Resp BP Sys/Mora Pulse Ox Last 24 Hr 98 F-98.9 F 94-120 18-30 160-212/99-150 95 GENERAL: The patient is awake, alert, and fully oriented, in no acute distress. HEAD: Normal with no signs of trauma. EYES: PERRL, extraocular movements intact, sclera anicteric, conjunctiva clear. No ptosis. ENT: Ears normal, nares patent, oropharynx clear without exudates, moist mucous membranes. NECK: Trachea midline, full range of motion, supple. LUNGS: Breath sounds equal, clear to auscultation bilaterally, no wheezes, no crackles, no accessory muscle use. HEART: Regular rate and rhythm, S1, S2 without murmur, rub or gallop. ABDOMEN: Soft, nontender, nondistended, normoactive bowel sounds, no guarding, no rebound, no hepatosplenomegaly, no masses. EXTREMITIES: 2+ pulses, warm, well-perfused, no edema. NEUROLOGICAL: Cranial nerves II through XII grossly intact. Normal speech, gait not observed. PSYCH: Normal mood, normal affect. SKIN: Warm, dry, normal turgor, no rashes or lesions noted Laboratory Results - last 24 hr 08/29/17 08/29/17 08/29/17 10:52 12:37 16:04 WBC RBC Hgb Hct MCV MCH MCHC RDW Plt Count MPV Neutrophils % Neutrophils % (Manual) 85.0 H Band Neutrophils % 5.0 Lymphocytes % Lymphocytes % (Manual) 4.0 L Monocytes % Monocytes % (Manual) 2 L Eosinophils % Basophils % Metamyelocytes 3 H Platelet Estimate Slt decrease Platelet Comment Rare giants plts Anisocytosis 1+ Tear Drop Cells 1+ Ovalocytes 1+ Fragmented RBCs 1+ Morphology Comment Retic Count PT with INR INR PTT (Actin FS) Fibrinogen Sodium Potassium Chloride Carbon Dioxide Anion Gap BUN Creatinine Creat Clearance w eGFR Random Glucose Calcium Phosphorus Magnesium Ferritin Total Bilirubin AST ALT Alkaline Phosphatase LD Total Troponin I Total Protein Albumin Vitamin B12 TSH 5.20 H Free T4 U Random Total Protein Ur Random Sodium Urine Creatinine Random Vancomycin Valproic Acid Blood Type O POSITIVE Antibody Screen Negative Direct Antiglob Test Crossmatch 08/29/17 08/29/17 08/29/17 18:00 19:11 20:00 WBC 13.5 H RBC 2.53 L D Hgb 7.3 L D Hct 20.9 L D MCV 82.6 MCH 28.6 MCHC 34.7 RDW 13.8 Plt Count 55 L D MPV 8.1 Neutrophils % Neutrophils % (Manual) Band Neutrophils % Lymphocytes % Lymphocytes % (Manual) Monocytes % Monocytes % (Manual) Eosinophils % Basophils % Metamyelocytes Platelet Estimate Platelet Comment Anisocytosis Tear Drop Cells Ovalocytes Fragmented RBCs Morphology Comment See comment Retic Count PT with INR INR PTT (Actin FS) Fibrinogen Sodium Potassium Chloride Carbon Dioxide Anion Gap BUN Creatinine Creat Clearance w eGFR Random Glucose Calcium Phosphorus Magnesium Ferritin 1092.933 H Total Bilirubin AST ALT Alkaline Phosphatase LD Total Troponin I Total Protein Albumin Vitamin B12 TSH Free T4 U Random Total Protein 1044 H Ur Random Sodium 45 Urine Creatinine 64.4 Random Vancomycin Valproic Acid Blood Type Antibody Screen Direct Antiglob Test Crossmatch 08/29/17 08/29/17 08/29/17 20:00 20:00 20:00 WBC RBC Hgb Hct MCV MCH MCHC RDW Plt Count MPV Neutrophils % Neutrophils % (Manual) Band Neutrophils % Lymphocytes % Lymphocytes % (Manual) Monocytes % Monocytes % (Manual) Eosinophils % Basophils % Metamyelocytes Platelet Estimate Platelet Comment Anisocytosis Tear Drop Cells Ovalocytes Fragmented RBCs Morphology Comment Retic Count 2.89 H PT with INR INR PTT (Actin FS) Fibrinogen 579.0 H Sodium Potassium Chloride Carbon Dioxide Anion Gap BUN Creatinine Creat Clearance w eGFR Random Glucose Calcium Phosphorus Magnesium Ferritin Total Bilirubin AST ALT Alkaline Phosphatase LD Total Troponin I Total Protein Albumin Vitamin B12 TSH Free T4 U Random Total Protein Ur Random Sodium Urine Creatinine Random Vancomycin Valproic Acid Blood Type Antibody Screen Direct Antiglob Test Negative Crossmatch See Detail 08/29/17 08/29/17 08/29/17 20:00 20:00 20:00 WBC 13.3 H RBC 2.51 L Hgb 7.2 L Hct 21.0 L MCV 83.7 MCH 28.6 MCHC 34.2 RDW 14.1 Plt Count 55 L MPV 8.6 Neutrophils % 83.5 H D Neutrophils % (Manual) Band Neutrophils % Lymphocytes % 6.1 L D Lymphocytes % (Manual) Monocytes % 10.2 Monocytes % (Manual) Eosinophils % 0.0 D Basophils % 0.2 Metamyelocytes Platelet Estimate Platelet Comment Anisocytosis Tear Drop Cells Ovalocytes Fragmented RBCs Morphology Comment Retic Count PT with INR 11.60 INR 1.03 PTT (Actin FS) 33.3 Fibrinogen Sodium Potassium Chloride Carbon Dioxide Anion Gap BUN Creatinine Creat Clearance w eGFR Random Glucose Calcium Phosphorus Magnesium Ferritin Total Bilirubin AST ALT Alkaline Phosphatase LD Total 1254 H Troponin I Total Protein Albumin Vitamin B12 TSH Free T4 U Random Total Protein Ur Random Sodium Urine Creatinine Random Vancomycin Valproic Acid Blood Type Antibody Screen Direct Antiglob Test Crossmatch 08/29/17 08/30/17 08/30/17 21:13 00:45 00:45 WBC RBC Hgb Hct MCV MCH MCHC RDW Plt Count MPV Neutrophils % Neutrophils % (Manual) Band Neutrophils % Lymphocytes % Lymphocytes % (Manual) Monocytes % Monocytes % (Manual) Eosinophils % Basophils % Metamyelocytes Platelet Estimate Platelet Comment Anisocytosis Tear Drop Cells Ovalocytes Fragmented RBCs Morphology Comment Retic Count PT with INR INR PTT (Actin FS) Fibrinogen Sodium 134 L Potassium 4.5 Chloride 99 Carbon Dioxide 15 L Anion Gap 20 H BUN 158 H* Creatinine 20.6 H* Creat Clearance w eGFR Random Glucose 73 L Calcium 7.0 L Phosphorus Magnesium Ferritin Total Bilirubin AST ALT Alkaline Phosphatase LD Total Troponin I 0.17 H Total Protein Albumin Vitamin B12 TSH Free T4 U Random Total Protein Ur Random Sodium Urine Creatinine Random Vancomycin Valproic Acid 32.285 L Blood Type Antibody Screen Direct Antiglob Test Crossmatch 08/30/17 08/30/17 08/30/17 06:05 06:05 06:05 WBC 9.5 RBC 2.62 L Hgb 7.8 L Hct 21.9 L MCV 83.8 MCH 29.9 MCHC 35.7 RDW 13.8 Plt Count 64 L MPV 7.7 D Neutrophils % 75.2 Neutrophils % (Manual) Band Neutrophils % Lymphocytes % 11.2 D Lymphocytes % (Manual) Monocytes % 13.3 H Monocytes % (Manual) Eosinophils % 0.1 D Basophils % 0.2 Metamyelocytes Platelet Estimate Platelet Comment Anisocytosis Tear Drop Cells Ovalocytes Fragmented RBCs Morphology Comment Retic Count PT with INR INR PTT (Actin FS) Fibrinogen Sodium 139 Potassium 3.8 Chloride 98 Carbon Dioxide 25 D Anion Gap 16 BUN 99 H D Creatinine 14.6 H* D Creat Clearance w eGFR 4.20 Random Glucose 81 Calcium 7.3 L Phosphorus 8.2 H Magnesium 2.1 Ferritin Total Bilirubin 0.5 D AST 33 ALT 8 L Alkaline Phosphatase 53 LD Total 1006 H Troponin I 0.25 H D Total Protein 4.4 L Albumin 1.7 L Vitamin B12 331 TSH Free T4 U Random Total Protein Ur Random Sodium Urine Creatinine Random Vancomycin 9.573 Valproic Acid Blood Type Antibody Screen Direct Antiglob Test Crossmatch 08/30/17 08/30/17 08/30/17 06:05 06:05 06:05 WBC RBC Hgb Hct MCV MCH MCHC RDW Plt Count MPV Neutrophils % Neutrophils % (Manual) Band Neutrophils % Lymphocytes % Lymphocytes % (Manual) Monocytes % Monocytes % (Manual) Eosinophils % Basophils % Metamyelocytes Platelet Estimate Platelet Comment Anisocytosis Tear Drop Cells Ovalocytes Fragmented RBCs Morphology Comment Retic Count 2.13 H D PT with INR INR PTT (Actin FS) Fibrinogen Sodium Potassium Chloride Carbon Dioxide Anion Gap BUN Creatinine Creat Clearance w eGFR Random Glucose Calcium Phosphorus Magnesium Ferritin Total Bilirubin AST ALT Alkaline Phosphatase LD Total Cancelled Troponin I Total Protein Albumin Vitamin B12 Cancelled TSH Free T4 0.73 L U Random Total Protein Ur Random Sodium Urine Creatinine Random Vancomycin Valproic Acid Blood Type Antibody Screen Direct Antiglob Test Crossmatch 08/30/17 08/30/17 08/30/17 06:05 06:05 15:35 WBC 12.1 H RBC 2.90 L Hgb 8.5 L Hct 24.3 L MCV 83.7 MCH 29.4 MCHC 35.1 RDW 13.8 Plt Count 73 L MPV 7.8 Neutrophils % Neutrophils % (Manual) Band Neutrophils % Lymphocytes % Lymphocytes % (Manual) Monocytes % Monocytes % (Manual) Eosinophils % Basophils % Metamyelocytes Platelet Estimate Platelet Comment Anisocytosis Tear Drop Cells Ovalocytes Fragmented RBCs Morphology Comment Retic Count PT with INR 11.60 INR 1.03 PTT (Actin FS) 27.9 Fibrinogen Sodium Potassium Chloride Carbon Dioxide Anion Gap BUN Creatinine Creat Clearance w eGFR Random Glucose Calcium Phosphorus Magnesium Ferritin Total Bilirubin AST ALT Alkaline Phosphatase LD Total Troponin I Cancelled Total Protein Albumin Vitamin B12 TSH Free T4 U Random Total Protein Ur Random Sodium Urine Creatinine Random Vancomycin Valproic Acid Blood Type Antibody Screen Direct Antiglob Test Crossmatch 08/30/17 15:35 WBC RBC Hgb Hct MCV MCH MCHC RDW Plt Count MPV Neutrophils % Neutrophils % (Manual) Band Neutrophils % Lymphocytes % Lymphocytes % (Manual) Monocytes % Monocytes % (Manual) Eosinophils % Basophils % Metamyelocytes Platelet Estimate Platelet Comment Anisocytosis Tear Drop Cells Ovalocytes Fragmented RBCs Morphology Comment Retic Count PT with INR INR PTT (Actin FS) Fibrinogen Sodium Potassium Chloride Carbon Dioxide Anion Gap BUN Creatinine Creat Clearance w eGFR Random Glucose Calcium Phosphorus Magnesium Ferritin Total Bilirubin AST ALT Alkaline Phosphatase LD Total Troponin I 0.31 H Total Protein Albumin Vitamin B12 TSH Free T4 U Random Total Protein Ur Random Sodium Urine Creatinine Random Vancomycin Valproic Acid Blood Type Antibody Screen Direct Antiglob Test Crossmatch Active Medications Generic Name Dose Route Start Last Admin Trade Name Freq PRN Reason Stop Dose Admin Chlorhexidine Gluconate 1 applic 08/29/17 22:00 08/30/17 00:14 Hibiclens For Decolonization - TP [address] Administration Sodium Chloride 250 mls @ 3,000 mls/hr 08/29/17 19:43 Normal Saline - IV 08/30/17 19:43 PRN PRN Hypotension during Dialysis Sodium Chloride 250 mls @ 3,000 mls/hr 08/30/17 10:07 Normal Saline - IV 08/31/17 10:07 PRN PRN Hypotension during Dialysis Nicardipine HCl 25 mg/ 250 mls @ 25 mls/hr 08/30/17 14:32 08/30/17 18:25 Dextrose IVPB 7.5 mg/hr TITR LNAE 75 mls/hr Protocol Titration 2.5 MG/HR Mupirocin 1 applic 08/29/17 22:00 08/30/17 09:23 Bactroban Ointment (For Decolonization) - NS 09/03/17 21:[address] Administration ASSESSMENT/PLAN:
[2017-08-30] MEDS ORDERED: LABETALOL HCL 100 MG TABLET (FP) PO SCH ×2 (14:00)
[2017-08-30] MEDS: NICARDIPINE 25 MG in DEXTROSE 5%-WATER - 240 ML IVPB SCH ×2 (14:35→22:09)
[2017-08-30 14:48] LABS: GLUCOSE,RANDOM 73 mg/dL (74-106)
[2017-08-30 14:49] LABS: ANION GAP 20 (8-16); CHLORIDE 99 mmol/L (98-107); CO2 15 mmol/L (21-32); POTASSIUM 4.5 mmol/L (3.5-5.1); SODIUM 134 mmol/L (136-145)
[2017-08-30 14:57] LABS: BLOOD UREA NITROGEN 158 mg/dL (7-18); CREATININE 20.6 mg/dL (0.7-1.3)
--- NOTE | 2017-08-30 15:45 | PN ---
Progress Note, Physician History of Present Illness: Pt seen and examined at bedside. He tolerated HD last night. His blood pressure has been elevated and he is now on a drip. His mental status has improved based on what his parents report. Case discussed with family who are at bedside. He has made about 300 cc of urine overnight. - Current Medication List Current Medications: Active Medications Chlorhexidine Gluconate (Hibiclens For Decolonization -) [address] Last Admin: 08/30/17 00:14 Dose: 1 applic Sodium Chloride (Normal Saline -) 250 mls @ 3,000 mls/hr IV PRN PRN PRN Reason: Hypotension during Dialysis Stop: 08/30/17 19:43 Sodium Chloride (Normal Saline -) 250 mls @ 3,000 mls/hr IV PRN PRN PRN Reason: Hypotension during Dialysis Stop: 08/31/17 10:07 Nicardipine HCl 25 mg/ (Dextrose) 250 mls @ 25 mls/hr IVPB TITR LANE; 2.5 MG/HR PRN Reason: Protocol Mupirocin (Bactroban Ointment (For Decolonization) -) [address]ANE Stop: 09/03/17 21:59 Last Admin: 08/30/17 09:23 Dose: 1 applic - Objective Vital Signs: Vital Signs Temperature 98.7 F 08/30/17 13:30 Pulse Rate 104 H 08/30/17 15:00 Respiratory Rate 23 08/30/17 15:00 Blood Pressure 160/108 08/30/17 15:00 O2 Sat by Pulse Oximetry (%) 95 08/29/17 21:00 Constitutional: Yes: Calm Eyes: Yes: Conjunctiva Clear HENT: Yes: Other (self inflicted scratch on left side of head) Cardiovascular: Yes: S1, S2 Respiratory: Yes: CTA Bilaterally Gastrointestinal: Yes: Soft Genitourinary: Yes: Ruiz Present Musculoskeletal: Yes: Muscle Weakness Edema: Yes Edema: LLE: Trace, RLE: Trace Integumentary: Yes: WNL Neurological: Yes: Pre-Existing Deficit Labs: CBC, BMP 08/30/17 06:05 08/30/17 06:05 INR, PTT INR 1.03 (0.82-1.09) 08/30/17 06:05 Fibrinogen 579.0 mg/dL (238-498) H 08/29/17 20:00 - ....Imaging Chest X-ray: Report Reviewed Ultrasound: Report Reviewed Other: Report Reviewed (echo) Problem List - Problems (1) Acute renal failure Code(s): N17.9 - ACUTE KIDNEY FAILURE, UNSPECIFIED Qualifiers: Acute renal failure type: unspecified Qualified Code(s): N17.9 - Acute kidney failure, unspecified (2) Anemia Code(s): D64.9 - ANEMIA, UNSPECIFIED (3) Hyperkalemia Code(s): E87.5 - HYPERKALEMIA (4) Hypertensive urgency Code(s): I16.0 - HYPERTENSIVE URGENCY (5) Sepsis Code(s): A41.9 - SEPSIS, UNSPECIFIED ORGANISM Qualifiers: Sepsis type: sepsis due to unspecified organism Qualified Code(s): A41.9 - Sepsis, unspecified organism (6) Thrombocytopenia Code(s): D69.6 - THROMBOCYTOPENIA, UNSPECIFIED (7) Seizure Code(s): R56.9 - UNSPECIFIED CONVULSIONS Assessment/Plan Current Medications Generic Name Dose Route Start Last Admin Trade Name Freq PRN Reason Stop Dose Admin Chlorhexidine Gluconate 1 applic 08/29/17 22:00 08/30/17 00:14 Hibiclens For Decolonization - TP [address] Administration Sodium Chloride 250 mls @ 3,000 mls/hr 08/29/17 19:43 Normal Saline - IV 08/30/17 19:43 PRN PRN Hypotension during Dialysis Sodium Chloride 250 mls @ 3,000 mls/hr 08/30/17 10:07 Normal Saline - IV 08/31/17 10:07 PRN PRN Hypotension during Dialysis Nicardipine HCl 25 mg/ 250 mls @ 25 mls/hr 08/30/17 14:[address] Protocol 2.5 MG/HR Mupirocin 1 applic 08/29/17 22:00 08/30/17 09:23 Bactroban Ointment (For Decolonization) - NS 09/03/17 21:[address] Administration Laboratory Tests 08/29/17 08/29/17 19:11 20:00 U Random Total Protein 1044 H LISA M-Marlon Pending GEN Screen Pending c-ANCA Pending Proteinase 3 (PR3) Pending p-ANCA Pending Atypical p-ANCA Pending Myeloperoxidase Ab Pending Double Strand DNA Ab Pending Glomerular Base Memb Ab Pending Hepatitis A Ab Total Pending Hep Bs Antigen Pending Hep Bs Antibody Pending Hep B Core Total Ab Pending HCV Quantitation Pending Impression 1. ANNA 2. HTN urgency/emergency 3. hyperkalemia 4. hyponatremia 5. autism 6. hx of seizure 7. anemia 8. CKD 9. lactic acidosis improving 10. thrombocytopenia Plan - pt tolerated HD yesterday - will arrange for HD today - follow serologic workup - monitor urine output closely - blood pressure is improving, cont current meds - discussed with hematology last night and again today, will cont to monitor - follow LDH level - repeat peripheral smear today - send c3 and c4 - discussed kidney biopsy with family once pts blood pressure is improved - monitor platelets - keep in ICU - will follow closely - discussed with ICU team Dr Velasquez
[2017-08-30 16:35] LABS: HEMATOCRIT 24.3 % (35.4-49); HEMOGLOBIN 8.5 GM/dL (11.7-16.9); MCH 29.4 pg (25.7-33.7); MCHC 35.1 g/dl (32.0-35.9); MEAN CELL VOLUME 83.7 fl (80-96); MEAN PLT VOLUME 7.8 fl (7.5-11.1); PLATELET COUNT 73 K/MM3 (134-434); RDW 13.8 % (11.9-15.9); WHITE BLOOD COUNT 12.1 K/mm3 (4.0-10.0)
[2017-08-30 17:56] LABS: PLATELET ESTIMATE SLT DECREASE
--- NOTE | 2017-08-30 19:32 | CON.NEURO ---
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 The patient is non-verbal at baseline. His mother states that on Sunday she noticed small lumps under his right armpit and called his pcp who prescribed Keflex. The patient then developed diarrhea on Sunday (8 times), for which the patient's father gave him 3 immodium. The patient has not had any bowel movements since then. The mother also noticed that yesterday the patient' s breathing "was not right". The patient did not have any vomiting, however since Sunday he has had a decreased appetite. Patient was received from [facility] at 5:30pm. -Pt. is non-verbal, being rx. for HUS, ESRD ,was on Depakote 250mg bid and 750mg qpm x years, last seizure was 2 weeks ago, as per mother it was a partial seizure with tonic arm activity and clouded consciousness, prior to that he had a GTC sz. in November 2016. Noted to have low platelets-64/55 thousand. No seizures in house. - Past Medical History [employer]: Yes: Other (autism) Cardio/Vascular: Yes: HTN Renal/: Yes: Renal Inusuff - Past Surgical History Past Surgical History: Yes: Hernia Repair - Alcohol/Substance Use Hx Alcohol Use: No - Smoking History Smoking history: Never smoked Have you smoked in the past 12 months: No Aproximately how many cigarettes per day: 0 Home Medications - Allergies Allergies/Adverse Reactions: Allergies Allergy/AdvReac Type Severity Reaction Status Date / Time cefprozil [From Cefzil] Allergy Intermediate Rash Verified 08/29/17 10:26 - Home Medications Home Medications: Ambulatory Orders Divalproex [Depakote -] 250 mg PO DAILY 01/22/16 Family Disease History - Family Disease History Family Disease History: Other: Father (htn) Physical Exam-Neuro Vital Signs: Vital Signs Temperature 98.4 F 08/30/17 18:00 Pulse Rate 117 H 08/30/17 19:00 Respiratory Rate 20 08/30/17 19:00 Blood Pressure 181/105 08/30/17 19:00 O2 Sat by Pulse Oximetry (%) 95 08/29/17 21:00 Labs: CBC, BMP 08/30/17 15:35 08/30/17 06:05 INR, PTT INR 1.03 (0.82-1.09) 08/30/17 06:05 Fibrinogen 579.0 mg/dL (238-498) H 08/29/17 20:00 - Neuro Exam Level Of Consciousness: Yes: Alert (NoN-verbal, follows simple commands) Eyes: Yes: ZARINA Speech: Other (non-verbal) Dominant Hand: Right Mini Mental Exam: non-testable Cranial Nerves II-XII Intact: Yes DTR's: 2+ Left Brachioradialis, 2+ Right Brachioradialis, 2+ Left Achilles, 3+ Left Bicep, 3+ Right Bicep, 3+ Left Tricep, 3+ Right Tricep, 3+ Right Achilles ( Bilat knees-4+) Babinski: Present (Bilat upgoing toes) Assessment/Plan Pt. with autism, both partial and GTC sz.x years. Now with thrombocytopenia, Depakote d/sunshine. I suggest placing him on Vimpat 200mg ( 2 yours apart, 100mg each) as loading dose now than 100mg bid. If he has a breakthrough sz. can use Ativan prn. I will follow him as outpt. his mother will call my office for appt. Thank you, Crystal Ness MD
[2017-08-30] MEDS: LACOSAMIDE 50 MG TABLET PO SCH (22:04)
[2017-08-31] MEDS ORDERED: niCARdipine HCL 25 MG/10 ML AMPUL IVPB ONE ×3 (03:31→14:58)
[2017-08-31 06:00] LABS: BASO % 0.2 % (0-2.0); EOS % 0.3 % (0-4.5); HEMATOCRIT 25.6 % (35.4-49); HEMOGLOBIN 9.1 GM/dL (11.7-16.9); LYMPH % 7.2 % (8-40); MCH 29.6 pg (25.7-33.7); MCHC 35.5 g/dl (32.0-35.9); MEAN CELL VOLUME 83.6 fl (80-96); MEAN PLT VOLUME 7.5 fl (7.5-11.1); MONO % 12.1 % (3.8-10.2); NEUT % 80.2 % (42.8-82.8); PLATELET COUNT 90 K/MM3 (134-434); RBC 3.06 M/mm3 (4.00-5.60); RDW 13.8 % (11.9-15.9); WHITE BLOOD COUNT 12.9 K/mm3 (4.0-10.0)
[2017-08-31 06:07] LABS: SERUM IRON SATURATION 21 % (15-55); TOTAL IRON BINDING CAPACITY 149 ug/dL (250-450); UIBC 118 ug/dL (111-343)
[2017-08-31 06:25] LABS: ALBUMIN 1.7 g/dl (3.4-5.0); ANION GAP 12 (8-16); BLOOD UREA NITROGEN 58 mg/dL (7-18); CALCIUM 7.3 mg/dL (8.5-10.1); CHLORIDE 95 mmol/L (98-107); CO2 27 mmol/L (21-32); GLUCOSE,RANDOM 108 mg/dL (74-106); MAGNESIUM 1.7 mg/dL (1.8-2.4); SODIUM 134 mmol/L (136-145)
[2017-08-31 06:28] LABS: INR 0.97 (0.82-1.09)
[2017-08-31 06:31] LABS: ACTIVATED PTT 29.9 SECONDS (26.9-34.4)
[2017-08-31 06:35] LABS: ALK PHOS 61 U/L (45-117); BILIRUBIN,TOTAL 0.3 mg/dL (0.2-1.0); PHOSPHOROUS 6.1 mg/dL (2.5-4.9); SGOT/AST 26 U/L (15-37); SGPT/ALT 12 U/L (12-78); TOT PROT 4.7 g/dl (6.4-8.2)
[2017-08-31 06:36] LABS: LDH 828 U/L (87-241)
[2017-08-31 06:38] LABS: CREATININE 10.2 mg/dL (0.7-1.3)
[2017-08-31] MEDS: NICARDIPINE 25 MG in DEXTROSE 5%-WATER - 240 ML IVPB SCH ×5 (06:52→15:26)
--- NOTE | 2017-08-31 07:27 | PN ---
Progress Note, Physician Chief Complaint: ID NO fever and no further diarrhea noted. He expresses he is hungry and eating Dialysis yesterday - Current Medication List Current Medications: Active Medications Chlorhexidine Gluconate (Hibiclens For Decolonization -) [address] Last Admin: 08/30/17 22:08 Dose: 1 applic Sodium Chloride (Normal Saline -) 250 mls @ 3,000 mls/hr IV PRN PRN PRN Reason: Hypotension during Dialysis Stop: 08/31/17 10:07 Nicardipine HCl 25 mg/ (Dextrose) 250 mls @ 25 mls/hr IVPB TITR LANE; 2.5 MG/HR PRN Reason: Protocol Last Admin: 08/31/17 06:52 Dose: 5 mg/hr, 50 mls/hr Lacosamide (Vimpat -) [address] Last Admin: 08/30/17 22:04 Dose: 100 mg Mupirocin (Bactroban Ointment (For Decolonization) -) [address] NS [address]ID LANE Stop: 09/03/17 21:59 Last Admin: 08/30/17 22:04 Dose: 1 applic - Objective Vital Signs: Vital Signs Temperature 99 F 08/31/17 02:00 Pulse Rate 120 H 08/31/17 06:52 Respiratory Rate 20 08/31/17 06:00 Blood Pressure 129/83 08/31/17 06:52 O2 Sat by Pulse Oximetry (%) 95 08/30/17 21:00 Constitutional: Yes: Well Nourished, No Distress Neck: Yes: WNL, Supple Cardiovascular: Yes: S1, S2 Respiratory: Yes: WNL, Regular, CTA Bilaterally Gastrointestinal: Yes: WNL, Normal Bowel Sounds, Soft. No: Tenderness, Tenderness, Rebound Edema: No Labs: CBC, BMP 08/31/17 05:40 08/31/17 05:40 INR, PTT INR 0.97 (0.82-1.09) 08/31/17 05:40 Fibrinogen 579.0 mg/dL (238-498) H 08/29/17 20:00 Assessment/Plan Microbiology 08/29/17 12:37 Blood - Peripheral Venous Blood Culture - Preliminary NO GROWTH OBTAINED AFTER 24 HOURS, INCUBATION TO CONTINUE FOR 4 DAYS. 08/29/17 12:37 Blood - Peripheral Venous Blood Culture - Preliminary NO GROWTH OBTAINED AFTER 24 HOURS, INCUBATION TO CONTINUE FOR 4 DAYS. Laboratory Tests 08/31/17 05:40 WBC 12.9 H Hct 25.6 L Plt Count 90 L D Neutrophils % 80.2 Lymphocytes % 7.2 L D Monocytes % 12.1 H Eosinophils % 0.3 D Basophils % 0.2 Assessment Acute and chronic renal failure ? precipated by hypertension. However anemia and thrombocytopenia with diarrhea noted raise possibility of enteric pathogen. Unfortunately no stool obtained though ordered and now he has no diarrhea according to family. He is getting dialysis. Off antibiotics. Plan From ID stand pont not sure if any more to offer but will follow at least 1 more day Heme following for possible hemolyis [place] [facility]
[2017-08-31 08:18] LABS: TRANSFERRIN 123 mg/dL (200-370)
[2017-08-31] MEDS: LACOSAMIDE 50 MG TABLET PO SCH ×2 (10:00→22:00)
[2017-08-31] MEDS ORDERED: PT OWN MED DRAWER 7, Y5N ONE (10:09)
[2017-08-31] MEDS: MUPIROCIN 2% TOPICAL OINTMENT FOR DECOLONIZATION NS SCH (11:29)
--- NOTE | 2017-08-31 11:56 | PN ---
Progress Note (short form) - Note Progress Note: Subjective: The patient was seen and examined at the bedside, family present. Awake, remains non-verbal Tolerated HD yesterday UO 405cc yesterday No further diarrhea Current Medications Generic Name Dose Route Start Last Admin Trade Name Freq PRN Reason Stop Dose Admin Chlorhexidine Gluconate 1 applic 08/29/17 22:00 08/30/17 22:08 Hibiclens For Decolonization - TP [address] Administration Sodium Chloride 250 mls @ 3,000 mls/hr 08/30/17 10:07 Normal Saline - IV 08/31/17 10:07 PRN PRN Hypotension during Dialysis Nicardipine HCl 25 mg/ 250 mls @ 25 mls/hr 08/30/17 14:32 08/31/17 08:33 Dextrose IVPB 7.5 mg/hr TITR LANE 75 mls/hr Protocol Administration 2.5 MG/HR Lacosamide 100 mg 08/30/17 22:00 08/31/17 10:00 Vimpat - PO [address] Administration Mupirocin 1 applic 08/29/17 22:00 08/30/17 22:04 Bactroban Ointment (For Decolonization) - NS 09/03/17 21:[address] Administration Objective: Vital Signs Period Temp Pulse Resp BP Sys/Mora Pulse Ox Last 24 Hr 98.3 F-99.2 F 101-124 18-26 129-193/74-128 94-95 Physical Exam: General: NAD Lungs: CTA bilaterally Heart: Tachycardia, S1S2 Abd: Soft, non-tender, non-distended. Normoactive bowel sounds Ext: Trace b/l lower extremity edema CBCD WBC 12.9 K/mm3 (4.0-10.0) H 08/31/17 05:40 RBC 3.06 M/mm3 (4.00-5.60) L 08/31/17 05:40 Hgb 9.1 GM/dL (11.7-16.9) L 08/31/17 05:40 Hct 25.6 % (35.4-49) L 08/31/17 05:40 MCV 83.6 fl (80-96) 08/31/17 05:40 MCHC 35.5 g/dl (32.0-35.9) 08/31/17 05:40 RDW 13.8 % (11.9-15.9) 08/31/17 05:40 Plt Count 90 K/MM3 (134-434) L D 08/31/17 05:40 MPV 7.5 fl (7.5-11.1) 08/31/17 05:40 CMP Sodium 134 mmol/L (136-145) L 08/31/17 05:40 Potassium 4.0 mmol/L (3.5-5.1) 08/31/17 05:40 Chloride 95 mmol/L (98-107) L 08/31/17 05:40 Carbon Dioxide 27 mmol/L (21-32) 08/31/17 05:40 Anion Gap 12 (8-16) 08/31/17 05:40 BUN 58 mg/dL (7-18) H D 08/31/17 05:40 Creatinine 10.2 mg/dL (0.7-1.3) H* D 08/31/17 05:40 Creat Clearance w eGFR 6.35 (>60) 08/31/17 05:40 Random Glucose 108 mg/dL (74-106) H D 08/31/17 05:40 Calcium 7.3 mg/dL (8.5-10.1) L 08/31/17 05:40 Total Bilirubin 0.3 mg/dL (0.2-1.0) D 08/31/17 05:40 AST 26 U/L (15-37) D 08/31/17 05:40 ALT 12 U/L (12-78) D 08/31/17 05:40 Alkaline Phosphatase 61 U/L (45-117) 08/31/17 05:40 Total Protein 4.7 g/dl (6.4-8.2) L 08/31/17 05:40 Albumin 1.7 g/dl (3.4-5.0) L 08/31/17 05:40 CARDIAC ENZYMES Creatine Kinase 373 IU/L (39-308) H 08/29/17 12:37 Troponin I 0.25 ng/ml (0.00-0.05) H 08/31/17 05:40 Microbiology 08/29/17 10:52 Urine - Urine Clean Catch Urine Culture - Final NO GROWTH OBTAINED 08/29/17 12:37 Blood - Peripheral Venous Blood Culture - Preliminary NO GROWTH OBTAINED AFTER 24 HOURS, INCUBATION TO CONTINUE FOR 4 DAYS. 08/29/17 12:37 Blood - Peripheral Venous Blood Culture - Preliminary NO GROWTH OBTAINED AFTER 24 HOURS, INCUBATION TO CONTINUE FOR 4 DAYS. Assessment: This is a 22 year old male with PMHx of autism, seizure disorder, who presented to the ED with diarrhea and increase dyspnea. The patient is non- verbal at baseline. Plan: 1) Acute renal failure - Likely 2/2 chronic hypertension, previous admission BP 15/129 11/30/16, Cr on 11/30/16 2.1 - S/p HD 08/29, 08/30 - BP improving slightly with HD - For possible kidney biopsy once BP improves - Appreciate nephrology consult 2) Hypertensive emergency - Remains on Nicardipine gtt - Continue to trend BP 3) Anemia, thrombocytopenia - Hgb 9.1 s/p 2u PRBC - Hematology workup ongoing - Platelets improving slightly - Appreciate hematology consult 4) Diarrhea - Family states it has improved - Stool studies uncollected - Continue to monitor off abx 5) Seizure disorder - Vimpat 100mg bid (loaded yesterday) - Appreciate neuro consult 6) F/E/N: - Soft diet - Monitor electrolytes 7) Prophylaxis: - SCDs bilaterally 8) Dispo - Requires continued ICU care CODE STATUS: FULL CODE Visit type - Emergency Visit Emergency Visit: Yes ED Registration Date: 08/29/17 Care time: The patient presented to the Emergency Department on the above date and was hospitalized for further evaluation of their emergent condition. - New Patient This patient is new to me today: No - Critical Care Critical Care patient: Yes Total Critical Care Time (in minutes): 45 Critical Care Statement: The care of this patient involved high complexity decision making to prevent further life threatening deterioration of the patient 's condition and/or to evaluate & treat vital organ system(s) failure or risk of failure.
--- NOTE | 2017-08-31 12:19 | PN ---
Teaching Attending Note Name of Resident: Delilah Mathis ATTENDING PHYSICIAN STATEMENT I saw and evaluated the patient. I reviewed the resident's note and discussed the case with the resident. I agree with the resident's findings and plan as documented. SUBJECTIVE: Patient seen and examined in the ICU. Awake on NC O2. Parents at the bedside. More interactive today. Intake & Output 08/28/17 08/29/17 08/30/17 08/31/17 23:59 23:59 23:59 23:59 Intake Total 1875 1040 1290 Output Total 80 405 150 Balance 0823 957 5646 Weight 180 lb 193 lb 3.2 oz Last Vital Signs Temp Pulse Resp BP Pulse Ox 99.2 F 120 H 20 171/102 94 L 08/31/17 10:00 08/31/17 10:00 08/31/17 10:00 08/31/17 12:02 08/31/17 08:50 Active Medications Chlorhexidine Gluconate (Hibiclens For Decolonization -) 1 applic TP HS [facility] Last Admin: 08/30/17 22:08 Dose: 1 applic Sodium Chloride (Normal Saline -) 250 mls @ 3,000 mls/hr IV PRN PRN PRN Reason: Hypotension during Dialysis Stop: 08/31/17 10:07 Nicardipine HCl 25 mg/ (Dextrose) 250 mls @ 25 mls/hr IVPB TITR LANE; 2.5 MG/HR PRN Reason: Protocol Last Admin: 08/31/17 12:02 Dose: 7.5 mg/hr, 75 mls/hr Lacosamide (Vimpat -) 100 mg PO BID [facility] Last Admin: 08/31/17 10:00 Dose: 100 mg Mupirocin (Bactroban Ointment (For Decolonization) -) 1 applic NS BID [facility] Stop: 09/03/17 21:59 Last Admin: 08/31/17 11:29 Dose: 1 applic Constitutional: Yes: No Distress Eyes: Yes: WNL, PERRL HENT: Yes: Atraumatic, Normocephalic Neck: Yes: Supple, Trachea Midline Cardiovascular: Yes: Regular Rate and Rhythm, Tachycardia, S1, S2 Respiratory: Yes: CTA Bilaterally Gastrointestinal: Yes: Normal Bowel Sounds, Soft, Other (non tender) Renal/: Yes: Ruiz Present Extremities: Yes: WNL Edema: No Peripheral Pulses WNL: Yes Integumentary: Yes: WNL Neurological: Yes: Somnolent, non-focal ...Motor Strength: WNL Psychiatric: Yes: Other Labs: Laboratory Results - last 24 hr 08/29/17 08/29/17 08/29/17 10:52 20:00 20:00 WBC RBC Hgb Hct MCV MCH MCHC RDW Plt Count MPV Neutrophils % Lymphocytes % Monocytes % Eosinophils % Basophils % Platelet Estimate Slt decrease Platelet Comment Rare giants plts ESR Haptoglobin < 10 L PT with INR INR PTT (Actin FS) Sodium Potassium Chloride Carbon Dioxide Anion Gap BUN Creatinine Creat Clearance w eGFR Random Glucose Calcium Phosphorus Magnesium Iron 31 L TIBC 149 L Iron Saturation 21 Transferrin 123 L Total Bilirubin AST ALT Alkaline Phosphatase LD Total Troponin I C-Reactive Protein Total Protein Albumin Vitamin B12 08/29/17 08/30/17 08/30/17 21:13 06:05 15:35 WBC 12.1 H RBC 2.90 L Hgb 8.5 L Hct 24.3 L MCV 83.7 MCH 29.4 MCHC 35.1 RDW 13.8 Plt Count 73 L MPV 7.8 Neutrophils % Lymphocytes % Monocytes % Eosinophils % Basophils % Platelet Estimate Platelet Comment ESR Haptoglobin PT with INR INR PTT (Actin FS) Sodium 134 L 139 Potassium 4.5 3.8 Chloride 99 98 Carbon Dioxide 15 L 25 D Anion Gap 20 H 16 BUN 158 H* 99 H D Creatinine 20.6 H* 14.6 H* D Creat Clearance w eGFR 4.20 Random Glucose 73 L 81 Calcium 7.0 L 7.3 L Phosphorus 8.2 H Magnesium 2.1 Iron TIBC Iron Saturation Transferrin Total Bilirubin 0.5 D AST 33 ALT 8 L Alkaline Phosphatase 53 LD Total 1006 H Troponin I 0.25 H D C-Reactive Protein Total Protein 4.4 L Albumin 1.7 L Vitamin B12 331 08/30/17 08/31/17 08/31/17 15:35 05:40 05:40 WBC RBC Hgb Hct MCV MCH MCHC RDW Plt Count MPV Neutrophils % Lymphocytes % Monocytes % Eosinophils % Basophils % Platelet Estimate Platelet Comment ESR 96 H Haptoglobin PT with INR INR PTT (Actin FS) Sodium 134 L Potassium 4.0 Chloride 95 L Carbon Dioxide 27 Anion Gap 12 BUN 58 H D Creatinine 10.2 H* D Creat Clearance w eGFR 6.35 Random Glucose 108 H D Calcium 7.3 L Phosphorus 6.1 H D Magnesium 1.7 L Iron TIBC Iron Saturation Transferrin Total Bilirubin 0.3 D AST 26 D ALT 12 D Alkaline Phosphatase 61 LD Total 828 H Troponin I 0.31 H C-Reactive Protein 12.9 H Total Protein 4.7 L Albumin 1.7 L Vitamin B12 08/31/17 08/31/17 08/31/17 05:40 05:40 05:40 WBC 12.9 H RBC 3.06 L Hgb 9.1 L Hct 25.6 L MCV 83.6 MCH 29.6 MCHC 35.5 RDW 13.8 Plt Count 90 L D MPV 7.5 Neutrophils % 80.2 Lymphocytes % 7.2 L D Monocytes % 12.1 H Eosinophils % 0.3 D Basophils % 0.2 Platelet Estimate Platelet Comment ESR Haptoglobin PT with INR 11.00 INR 0.97 PTT (Actin FS) 29.9 Sodium Potassium Chloride Carbon Dioxide Anion Gap BUN Creatinine Creat Clearance w eGFR Random Glucose Calcium Phosphorus Magnesium Iron TIBC Iron Saturation Transferrin Total Bilirubin AST ALT Alkaline Phosphatase LD Total Troponin I 0.25 H C-Reactive Protein Total Protein Albumin Vitamin B12 Problem List - Problems (1) Hypertensive urgency Code(s): I16.0 - HYPERTENSIVE URGENCY (2) Hyperkalemia Code(s): E87.5 - HYPERKALEMIA (3) Anemia Code(s): D64.9 - ANEMIA, UNSPECIFIED (4) Thrombocytopenia Code(s): D69.6 - THROMBOCYTOPENIA, UNSPECIFIED (5) Acute renal failure Code(s): N17.9 - ACUTE KIDNEY FAILURE, UNSPECIFIED Qualifiers: Acute renal failure type: unspecified Qualified Code(s): N17.9 - Acute kidney failure, unspecified Assessment/Plan HD per Renal Cardene for BP control Add oral BP Meds Strict I&O Heme workup ongoing Normal transfusion thresholds Follow cultures Off ABX per ID Aspiration precautions ICU monitoring Dr Isidro Critical care time spent in reviewing chart, evaluating patient and formulating plan - 36 minutes.
--- NOTE | 2017-08-31 13:47 | PN ---
Progress Note (short form) - Note Progress Note: pt seen and examined. progress by the day. improved. diarrhea better. Stool was never collected Constitutional: Yes: Calm Eyes: Yes: Conjunctiva Clear HENT: Yes: Atraumatic, Normocephalic Neck: Yes: Supple Cardiovascular: Yes: Regular Rate and Rhythm Respiratory: Yes: Regular Gastrointestinal: Yes: Normal Bowel Sounds, Soft, Abdomen, Obese Extremities: Yes: WNL Edema: No Neurological: Yes: Alert, Other (aphasic) Last Vital Signs Last Vital Signs Temp Pulse Resp BP Pulse Ox 99.2 F 120 H 20 171/102 94 L 08/31/17 10:00 08/31/17 12:00 08/31/17 12:00 08/31/17 12:02 08/31/17 08:50 CBC, BMP 08/31/17 05:40 08/31/17 05:40 Current Medications Generic Name Dose Route Start Last Admin Trade Name Freq PRN Reason Stop Dose Admin Chlorhexidine Gluconate 1 applic 08/29/17 22:00 08/30/17 22:08 Hibiclens For Decolonization - TP [address] Administration Sodium Chloride 250 mls @ 3,000 mls/hr 08/30/17 10:07 Normal Saline - IV 08/31/17 10:07 PRN PRN Hypotension during Dialysis Nicardipine HCl 25 mg/ 250 mls @ 25 mls/hr 08/30/17 14:32 08/31/17 12:02 Dextrose IVPB 7.5 mg/hr TITR LANE 75 mls/hr Protocol Administration 2.5 MG/HR Lacosamide 100 mg 08/30/17 22:00 08/31/17 10:00 Vimpat - PO [address] Administration Mupirocin 1 applic 08/29/17 22:00 08/31/17 11:29 Bactroban Ointment (For Decolonization) - NS 09/03/17 21:[address] Administration HTN crisis Thrombocytopenia Renal failure autism epilepsy MAHA in the setting of 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 But had diarrhea and stool studies were never sent.. Consider Kidney biopsy ( once more stabilized per renal) to further delineate treatment plans. Hct stable, platelets improve continues to improve. continue supportive care HD per renal. Dr.Futran iniguez next week daily labs. will follow Problem List - Problems (1) Acute renal failure Code(s): N17.9 - ACUTE KIDNEY FAILURE, UNSPECIFIED Qualifiers: Acute renal failure type: unspecified Qualified Code(s): N17.9 - Acute kidney failure, unspecified (2) Anemia Code(s): D64.9 - ANEMIA, UNSPECIFIED (3) Thrombocytopenia Code(s): D69.6 - THROMBOCYTOPENIA, UNSPECIFIED (4) Hypertensive urgency Code(s): I16.0 - HYPERTENSIVE URGENCY (5) Seizure Code(s): R56.9 - UNSPECIFIED CONVULSIONS
[2017-08-31] MEDS: NIFEdipine E.R. 90 MG TABLET (FP) PO SCH (14:30)
[2017-08-31] MEDS ORDERED: MAGNESIUM OXIDE 400 MG TABLET (FP) PO ONE ×2 (14:37→14:43)
--- NOTE | 2017-08-31 15:02 | PN ---
Physical Exam: SUBJECTIVE: Patient seen and examined in the ICU. Alert, NAD. Pt is nonverbal. Parents at bedside. OBJECTIVE: Vital Signs Period Temp Pulse Resp BP Sys/Mora Pulse Ox Last 24 Hr 98.3 F-99.2 F 106-124 18-24 129-193/74-121 94-95 GENERAL: The patient is awake, alert, in no acute distress, non-verbal. LUNGS: Breath sounds equal, clear to auscultation bilaterally, no wheezes, no crackles, no accessory muscle use. HEART: Regular rhythm, tachycardia, +S1/S2, without murmur, rub or gallop. ABDOMEN: Soft, nontender, nondistended, normoactive bowel sounds, no guarding. EXTREMITIES: Warm, well-perfused, no edema. SKIN: Warm, dry, normal turgor, no rashes or lesions noted Laboratory Results - last 24 hr 08/29/17 08/29/17 08/29/17 10:52 20:00 20:00 WBC RBC Hgb Hct MCV MCH MCHC RDW Plt Count MPV Neutrophils % Lymphocytes % Monocytes % Eosinophils % Basophils % Platelet Estimate Slt decrease Platelet Comment Rare giants plts ESR Haptoglobin < 10 L PT with INR INR PTT (Actin FS) Sodium Potassium Chloride Carbon Dioxide Anion Gap BUN Creatinine Creat Clearance w eGFR Random Glucose Calcium Phosphorus Magnesium Iron 31 L TIBC 149 L Iron Saturation 21 Transferrin 123 L Total Bilirubin AST ALT Alkaline Phosphatase LD Total Troponin I C-Reactive Protein Total Protein Albumin 08/30/17 08/30/17 08/31/17 15:35 15:35 05:40 WBC 12.1 H RBC 2.90 L Hgb 8.5 L Hct 24.3 L MCV 83.7 MCH 29.4 MCHC 35.1 RDW 13.8 Plt Count 73 L MPV 7.8 Neutrophils % Lymphocytes % Monocytes % Eosinophils % Basophils % Platelet Estimate Platelet Comment ESR Haptoglobin PT with INR INR PTT (Actin FS) Sodium 134 L Potassium 4.0 Chloride 95 L Carbon Dioxide 27 Anion Gap 12 BUN 58 H D Creatinine 10.2 H* D Creat Clearance w eGFR 6.35 Random Glucose 108 H D Calcium 7.3 L Phosphorus 6.1 H D Magnesium 1.7 L Iron TIBC Iron Saturation Transferrin Total Bilirubin 0.3 D AST 26 D ALT 12 D Alkaline Phosphatase 61 LD Total 828 H Troponin I 0.31 H C-Reactive Protein 12.9 H Total Protein 4.7 L Albumin 1.7 L 08/31/17 08/31/17 08/31/17 05:40 05:40 05:40 WBC 12.9 H RBC 3.06 L Hgb 9.1 L Hct 25.6 L MCV 83.6 MCH 29.6 MCHC 35.5 RDW 13.8 Plt Count 90 L D MPV 7.5 Neutrophils % 80.2 Lymphocytes % 7.2 L D Monocytes % 12.1 H Eosinophils % 0.3 D Basophils % 0.2 Platelet Estimate Platelet Comment ESR 96 H Haptoglobin PT with INR 11.00 INR 0.97 PTT (Actin FS) 29.9 Sodium Potassium Chloride Carbon Dioxide Anion Gap BUN Creatinine Creat Clearance w eGFR Random Glucose Calcium Phosphorus Magnesium Iron TIBC Iron Saturation Transferrin Total Bilirubin AST ALT Alkaline Phosphatase LD Total Troponin I C-Reactive Protein Total Protein Albumin 08/31/17 05:40 WBC RBC Hgb Hct MCV MCH MCHC RDW Plt Count MPV Neutrophils % Lymphocytes % Monocytes % Eosinophils % Basophils % Platelet Estimate Platelet Comment ESR Haptoglobin PT with INR INR PTT (Actin FS) Sodium Potassium Chloride Carbon Dioxide Anion Gap BUN Creatinine Creat Clearance w eGFR Random Glucose Calcium Phosphorus Magnesium Iron TIBC Iron Saturation Transferrin Total Bilirubin AST ALT Alkaline Phosphatase LD Total Troponin I 0.25 H C-Reactive Protein Total Protein Albumin Active Medications Generic Name Dose Route Start Last Admin Trade Name Freq PRN Reason Stop Dose Admin Chlorhexidine Gluconate 1 applic 08/29/17 22:00 08/30/17 22:08 Hibiclens For Decolonization - TP [address] Administration Sodium Chloride 250 mls @ 3,000 mls/hr 08/30/17 10:07 Normal Saline - IV 08/31/17 10:07 PRN PRN Hypotension during Dialysis Nicardipine HCl 25 mg/ 250 mls @ 25 mls/hr 08/30/17 14:32 08/31/17 12:02 Dextrose IVPB 7.5 mg/hr TITR LANE 75 mls/hr Protocol Administration 2.5 MG/HR Lacosamide 100 mg 08/30/17 22:00 08/31/17 10:00 Vimpat - PO [address] Administration Magnesium Oxide 800 mg 08/31/17 14:37 Mag-Ox - PO 08/31/17 14:38 ONCE ONE Mupirocin 1 applic 08/29/17 22:00 08/31/17 11:29 Bactroban Ointment (For Decolonization) - NS 09/03/17 21:[address] Administration Nifedipine 90 mg 08/31/17 14:00 08/31/17 14:30 Procardia Xl - PO [address] Administration ASSESSMENT/PLAN: 22M with PMH of autism and seizure disorder, presents with severe HTN, anemia, thrombocytopenia, leukocytosis, hyperkalemia, and ANNA, admitted to ICU. # sepsis - 2/2 unknown source - tachycardia, tachypnea, and leukocytosis persist - ID on board - hold antibiotics for now as pt remains afebrile - aspiration precautions # hypertensive urgency/emergency- unclear etiology - continue nicardipine gtt - Procardia added # troponinemia - likely 2/2 renal failure and demand ischemia from HTN - peaked, no need to trend further # anemia - Hematology on board, recs appreciated. - s/p 2 units of PRBCs and FFP - monitor CBC - normal transfusion parameters # ANNA - Nephrology (Dr. Velasquez) recs appreciated: HD per Nephrology - monitor UOP and Cr - avoid nephrotoxic agents # seizure disorder - Neurology recs appreciated: home med of Depakote D/Salvador 2/2 thrombocytopenia - Vimpat added # FEN - Fluids: po - Electrolytes: hypomagnesemia repleted, mild hyponatremia noted, continue to monitor - Nutrition: soft, renal diet # Prophylaxis - DVT ppx with yogesh SCDs (no chemoprophylaxis 2/2 thrombocytopenia) Visit type - Emergency Visit Emergency Visit: Yes ED Registration Date: 08/29/17 Care time: The patient presented to the Emergency Department on the above date and was hospitalized for further evaluation of their emergent condition. - New Patient This patient is new to me today: Yes Date on this admission: 08/31/17 - Critical Care Critical Care patient: Yes Total Critical Care Time (in minutes): 40 Critical Care Statement: The care of this patient involved high complexity decision making to prevent further life threatening deterioration of the patient 's condition and/or to evaluate & treat vital organ system(s) failure or risk of failure.
--- NOTE | 2017-08-31 15:39 | PN ---
Progress Note, Physician History of Present Illness: Pt seen and examined at bedside. He is more awake and alert today. Family are at bedside and care was discussed with them. - Current Medication List Current Medications: Active Medications Chlorhexidine Gluconate (Hibiclens For Decolonization -) 1 applic TP HS [facility] Last Admin: 08/30/17 22:08 Dose: 1 applic Sodium Chloride (Normal Saline -) 250 mls @ 3,000 mls/hr IV PRN PRN PRN Reason: Hypotension during Dialysis Stop: 08/31/17 10:07 Nicardipine HCl 25 mg/ (Dextrose) 250 mls @ 25 mls/hr IVPB TITR LANE; 2.5 MG/HR PRN Reason: Protocol Last Admin: 08/31/17 15:26 Dose: 7.5 mg/hr, 75 mls/hr Lacosamide (Vimpat -) 100 mg PO BID [facility] Last Admin: 08/31/17 10:00 Dose: 100 mg Mupirocin (Bactroban Ointment (For Decolonization) -) 1 applic NS BID [facility] Stop: 09/03/17 21:59 Last Admin: 08/31/17 11:29 Dose: 1 applic Nifedipine (Procardia Xl -) 90 mg PO DAILY [facility] Last Admin: 08/31/17 14:30 Dose: 90 mg - Objective Vital Signs: Vital Signs Temperature 99.5 F 08/31/17 14:00 Pulse Rate 116 H 08/31/17 14:00 Respiratory Rate 20 08/31/17 14:00 Blood Pressure 164/99 08/31/17 14:00 O2 Sat by Pulse Oximetry (%) 94 L 08/31/17 08:50 Constitutional: Yes: Calm Eyes: Yes: Conjunctiva Clear Cardiovascular: Yes: S1, S2 Respiratory: Yes: CTA Bilaterally Genitourinary: Yes: Ruiz Present Musculoskeletal: Yes: WNL Edema: Yes Edema: LUE: 1+, RUE: 1+ Neurological: Yes: Pre-Existing Deficit Labs: CBC, BMP 08/31/17 05:40 08/31/17 05:40 INR, PTT INR 0.97 (0.82-1.09) 08/31/17 05:40 Fibrinogen 579.0 mg/dL (238-498) H 08/29/17 20:00 Problem List - Problems (1) Acute renal failure Code(s): N17.9 - ACUTE KIDNEY FAILURE, UNSPECIFIED Qualifiers: Acute renal failure type: unspecified Qualified Code(s): N17.9 - Acute kidney failure, unspecified (2) Anemia Code(s): D64.9 - ANEMIA, UNSPECIFIED (3) Hyperkalemia Code(s): E87.5 - HYPERKALEMIA (4) Hypertensive urgency Code(s): I16.0 - HYPERTENSIVE URGENCY (5) Sepsis Code(s): A41.9 - SEPSIS, UNSPECIFIED ORGANISM Qualifiers: Sepsis type: sepsis due to unspecified organism Qualified Code(s): A41.9 - Sepsis, unspecified organism (6) Thrombocytopenia Code(s): D69.6 - THROMBOCYTOPENIA, UNSPECIFIED (7) Seizure Code(s): R56.9 - UNSPECIFIED CONVULSIONS Assessment/Plan Current Medications Generic Name Dose Route Start Last Admin Trade Name Freq PRN Reason Stop Dose Admin Chlorhexidine Gluconate 1 applic 08/29/17 22:00 08/30/17 22:08 Hibiclens For Decolonization - TP [address] Administration Sodium Chloride 250 mls @ 3,000 mls/hr 08/30/17 10:07 Normal Saline - IV 08/31/17 10:07 PRN PRN Hypotension during Dialysis Nicardipine HCl 25 mg/ 250 mls @ 25 mls/hr 08/30/17 14:32 08/31/17 15:26 Dextrose IVPB 7.5 mg/hr TITR LANE 75 mls/hr Protocol Administration 2.5 MG/HR Lacosamide 100 mg 08/30/17 22:00 08/31/17 10:00 Vimpat - PO [address] Administration Mupirocin 1 applic 08/29/17 22:00 08/31/17 11:29 Bactroban Ointment (For Decolonization) - NS 09/03/17 21:[address] Administration Nifedipine 90 mg 08/31/17 14:00 08/31/17 14:30 Procardia Xl - PO [address] Administration Laboratory Tests 08/29/17 08/31/17 20:00 11:00 LISA M-Marlon Pending GEN Screen Pending c-ANCA Pending Proteinase 3 (PR3) Pending p-ANCA Pending Atypical p-ANCA Pending Myeloperoxidase Ab Pending Double Strand DNA Ab Pending Glomerular Base Memb Ab Pending Complement C3 Pending Complement C4 Pending Hepatitis A Ab Total Pending Hep Bs Antigen Pending Hep Bs Antibody Pending Hep B Core Total Ab Pending HCV Quantitation Pending Impression 1. ANNA 2. HTN urgency/emergency 3. hyperkalemia 4. hyponatremia 5. autism 6. hx of seizure 7. anemia 8. CKD 9. lactic acidosis improving 10. thrombocytopenia Plan - HD in am - procardia started today - monitor blood pressure - renal workup is in progress - monitor platelets - discussed with ICU team - possible kidney biopsy next week after his bp is stable - monitor LDH level - keep in ICU - will follow closely Dr Velasquez
[2017-08-31] MEDS ORDERED: SODIUM CHLORIDE 250 ML IV PRN (15:41)
[2017-08-31] MEDS: CHLORHEXIDINE GLUCONATE 4% CLEANSER FOR DECOLONIZATION TP SCH (23:00)
[2017-09-01 06:02] LABS: BASO % 0.5 % (0-2.0); EOS % 0.3 % (0-4.5); HEMATOCRIT 23.6 % (35.4-49); HEMOGLOBIN 8.5 GM/dL (11.7-16.9); LYMPH % 10.2 % (8-40); MCH 30.3 pg (25.7-33.7); MCHC 36.1 g/dl (32.0-35.9); MEAN CELL VOLUME 83.9 fl (80-96); MEAN PLT VOLUME 7.5 fl (7.5-11.1); MONO % 9.6 % (3.8-10.2); NEUT % 79.4 % (42.8-82.8); PLATELET COUNT 166 K/MM3 (134-434); RBC 2.81 M/mm3 (4.00-5.60); RDW 13.7 % (11.9-15.9); WHITE BLOOD COUNT 19.5 K/mm3 (4.0-10.0)
[2017-09-01] MEDS: MUPIROCIN 2% TOPICAL OINTMENT FOR DECOLONIZATION NS SCH ×3 (06:48→21:37)
[2017-09-01 07:04] LABS: ANION GAP 12 (8-16); BLOOD UREA NITROGEN 70 mg/dL (7-18); CHLORIDE 91 mmol/L (98-107); CO2 26 mmol/L (21-32); GLUCOSE,RANDOM 124 mg/dL (74-106); MAGNESIUM 1.8 mg/dL (1.8-2.4); PHOSPHOROUS 6.3 mg/dL (2.5-4.9); POTASSIUM 4.5 mmol/L (3.5-5.1); SODIUM 129 mmol/L (136-145)
--- NOTE | 2017-09-01 07:04 | PN ---
Progress Note, Physician Chief Complaint: ID Remains stable afebrile No antibiotics involved - Current Medication List Current Medications: Active Medications Chlorhexidine Gluconate (Hibiclens For Decolonization -) 1 applic TP HS [facility] Last Admin: 08/31/17 23:00 Dose: 1 applic Sodium Chloride (Normal Saline -) 250 mls @ 3,000 mls/hr IV PRN PRN PRN Reason: Hypotension during Dialysis Stop: 08/31/17 10:07 Nicardipine HCl 25 mg/ (Dextrose) 250 mls @ 25 mls/hr IVPB TITR LANE; 2.5 MG/HR PRN Reason: Protocol Last Titration: 08/31/17 19:02 Dose: 0 mg/hr, 0 mls/hr Sodium Chloride (Normal Saline -) 250 mls @ 3,000 mls/hr IV PRN PRN PRN Reason: Hypotension during Dialysis Stop: 09/01/17 15:41 Lacosamide (Vimpat -) 100 mg PO BID [facility] Last Admin: 08/31/17 22:00 Dose: 100 mg Mupirocin (Bactroban Ointment (For Decolonization) -) 1 applic NS BID [facility] Stop: 09/03/17 21:59 Last Admin: 09/01/17 06:48 Dose: 1 applic Nifedipine (Procardia Xl -) 90 mg PO DAILY [facility] Last Admin: 08/31/17 14:30 Dose: 90 mg - Objective Vital Signs: Vital Signs Temperature 98.4 F 08/31/17 23:00 Pulse Rate 123 H 09/01/17 06:00 Respiratory Rate 18 09/01/17 06:00 Blood Pressure 157/102 09/01/17 06:00 O2 Sat by Pulse Oximetry (%) 94 L 08/31/17 21:00 Constitutional: Yes: No Distress Cardiovascular: Yes: S1, S2 Respiratory: Yes: WNL, Regular, CTA Bilaterally Gastrointestinal: Yes: Soft. No: Tenderness Edema: No Labs: CBC, BMP 09/01/17 05:45 INR, PTT INR 0.97 (0.82-1.09) 08/31/17 05:40 Fibrinogen 579.0 mg/dL (238-498) H 08/29/17 20:00 Assessment/Plan Microbiology 08/29/17 10:52 Urine - Urine Clean Catch Urine Culture - Final NO GROWTH OBTAINED 08/29/17 12:37 Blood - Peripheral Venous Blood Culture - Preliminary NO GROWTH OBTAINED AFTER 48 HOURS, INCUBATION TO CONTINUE FOR 3 DAYS. 08/29/17 12:37 Blood - Peripheral Venous Blood Culture - Preliminary NO GROWTH OBTAINED AFTER 48 HOURS, INCUBATION TO CONTINUE FOR 3 DAYS. Laboratory Tests 08/31/17 08/31/17 08/31/17 05:40 05:40 05:40 WBC Hgb Hct Plt Count Neutrophils % Lymphocytes % Monocytes % ESR 96 H Haptoglobin < 10 L BUN Creatinine C-Reactive Protein 12.9 H 09/01/17 09/01/17 05:45 05:45 WBC 19.5 H D Hgb 8.5 L Hct 23.6 L Plt Count 166 D Neutrophils % 79.4 Lymphocytes % 10.2 D Monocytes % 9.6 ESR Haptoglobin BUN Pending Creatinine Pending C-Reactive Protein Assessment Acute real failure ? etiology hypertesnion considered. Initial thrombocytopenia has resolved Yet leukocytosis in absence of fever chills focus of infection. HIS ESR and CRP quite elevated 96 and 13. Cultures admission negative An enteric infection should not cause this WBC elevation ESR and CRP ? inflammatory collagen disease considered Plan For now no antibiotic Repeat the chest xray rule out pneumonia Rheumatology evaluation suggested [place] [facility]
[2017-09-01 07:22] LABS: CALCIUM 6.9 mg/dL (8.5-10.1); CREATININE 12.1 mg/dL (0.7-1.3)
--- NOTE | 2017-09-01 08:32 | PN ---
Physical Exam: SUBJECTIVE: Patient seen and examined at the bedside. Father at the bedside. States he knew his son was not feeling well prior to his arrival to the ED. Usually his son eats well and is able to make his needs known. Prior to arrival he noted his son to be more lethargic with poor appetite. OBJECTIVE: Currently getting dialysis, goal removal is 1.5 L Bilateral hand edema noted heart rate 120 during dialysis WBC elevated today 19.5, no fever: ID following Vital Signs Period Temp Pulse Resp BP Sys/Mora Pulse Ox Last 24 Hr 98.4 F-99.5 F 112-133 18-119 133-183/78-114 94-94 GENERAL: The patient is awake, alert, in no acute distress HEAD: Normal with no signs of trauma. EYES: PERRL, extraocular movements intact, sclera anicteric, conjunctiva clear. No ptosis. ENT: Ears normal, nares patent, oropharynx clear without exudates, moist mucous membranes. NECK: Trachea midline, full range of motion, supple. LUNGS: anterior lung sounds diminished, mostly clear. on room air HEART: Regular rate and rhythm on monitoring specialist BP 179/109 ABDOMEN: Soft, nontender, nondistended EXTREMITIES: bilateral upper arms non pitting edema NEUROLOGICAL: Non verbal at baseline. Makes his needs known, states he is hungry PSYCH: Normal mood, normal affect. Laboratory Results - last 24 hr 08/29/17 08/31/17 08/31/17 20:00 05:40 05:40 WBC RBC Hgb Hct MCV MCH MCHC RDW Plt Count MPV Neutrophils % Lymphocytes % Monocytes % Eosinophils % Basophils % Haptoglobin < 10 L Sodium Potassium Chloride Carbon Dioxide Anion Gap BUN Creatinine Random Glucose Calcium Phosphorus Magnesium C-Reactive Protein 12.9 H Total Protein (PEP) 4.2 L Albumin (PEP) 1.9 L Globulin 2.3 Albumin/Globulin Ratio 0.8 Beta Globulins 0.8 LISA M-Marlon Not observed GEN Screen Negative Complement C3 Complement C4 08/31/17 09/01/17 09/01/17 11:00 05:45 05:45 WBC 19.5 H D RBC 2.81 L Hgb 8.5 L Hct 23.6 L MCV 83.9 MCH 30.3 MCHC 36.1 H RDW 13.7 Plt Count 166 D MPV 7.5 Neutrophils % 79.4 Lymphocytes % 10.2 D Monocytes % 9.6 Eosinophils % 0.3 Basophils % 0.5 Haptoglobin Sodium 129 L Potassium 4.5 Chloride 91 L Carbon Dioxide 26 Anion Gap 12 BUN 70 H D Creatinine 12.1 H* Random Glucose 124 H Calcium 6.9 L* Phosphorus 6.3 H Magnesium 1.8 C-Reactive Protein Total Protein (PEP) Albumin (PEP) Globulin Albumin/Globulin Ratio Beta Globulins LISA M-Marlon GEN Screen Complement C3 133 Complement C4 31 Active Medications Generic Name Dose Route Start Last Admin Trade Name Freq PRN Reason Stop Dose Admin Chlorhexidine Gluconate 1 applic 08/29/17 22:00 08/31/17 23:00 Hibiclens For Decolonization - TP [address] Administration Sodium Chloride 250 mls @ 3,000 mls/hr 08/30/17 10:07 Normal Saline - IV 08/31/17 10:07 PRN PRN Hypotension during Dialysis Nicardipine HCl 25 mg/ 250 mls @ 25 mls/hr 08/30/17 14:32 08/31/17 19:02 Dextrose IVPB 0 mg/hr TITR LANE 0 mls/hr Protocol Titration 2.5 MG/HR Sodium Chloride 250 mls @ 3,000 mls/hr 08/31/17 15:41 Normal Saline - IV 09/01/17 15:41 PRN PRN Hypotension during Dialysis Lacosamide 100 mg 08/30/17 22:00 08/31/17 22:00 Vimpat - PO [address] Administration Mupirocin 1 applic 08/29/17 22:00 09/01/17 06:48 Bactroban Ointment (For Decolonization) - NS 09/03/17 21:[address] Administration Nifedipine 90 mg 08/31/17 14:00 08/31/17 14:30 Procardia Xl - PO [address] Administration ASSESSMENT/PLAN: Patient is a 22 year old male with a significant past medical history of autism and seizure disorder. He presents of the Ed with c/o of weakness, diarrhea and increased dyspnea. As per admitting notes, pt was being treated with Keflex for skin infection then developed diarrhea and was given Immodium by family for the diarrhea. Family then noted patient became weaker, had increased dyspnea at rest and had a poor appetite. On admission his creatinine was noted to be 20.5 and was noted to have hypertensive urgency with a low hmg/hct and in electrolyte imbalance of unclear etiology. Renal: Acute Kidney Injury secondary to home antibiotics? presented with creat of 20.5, now has received dialysis since admission, most recent dialysis this morning Renal following Card: Hypertensive urgency BP remains elevated, restart Nicardipine HCL 25mg drip Given Procardia today but remains with tachycardia, hypertension Neuro: Seizures, chronic On Vimpat Heme: Anemia, thrombocytopena s/p 2 unit of prbc Monitor CBC ID: Leukocytosis @ 19.5 Blood cultures pending Low grade fevers ID following Card: Anemia Monitor hmg/hct s/p 2 units of prbc GI: Diarrhea Now resolved F.E.N. Fluids: PO adequate Electrolytes: monitor with daily labs Nutrition: renal diet Prophy: GI: deferred DVT: SCDs bilaterally Dispositon: full code
--- NOTE | 2017-09-01 09:29 | PN ---
Progress Note (short form) - Note Progress Note: RENAL Pt currently on dialysis He was brought in by his father because he didnt look well. Wasnt urinating much and was getting very tired easily. Last Vital Signs Temp Pulse Resp BP Pulse Ox 98.5 F 122 H 20 161/101 94 L 09/01/17 07:25 09/01/17 08:00 09/01/17 08:00 09/01/17 08:00 08/31/17 21:00 Lungs clear cvs s1s2 tachycardic, no rub, +fatimah abd soft ext no lower extremity edema, has bilat upper ext edema neuro alert skin no obvious rash Current Medications Generic Name Dose Route Start Last Admin Trade Name Freq PRN Reason Stop Dose Admin Chlorhexidine Gluconate 1 applic 08/29/17 22:00 08/31/17 23:00 Hibiclens For Decolonization - TP [address] Administration Sodium Chloride 250 mls @ 3,000 mls/hr 08/30/17 10:07 Normal Saline - IV 08/31/17 10:07 PRN PRN Hypotension during Dialysis Nicardipine HCl 25 mg/ 250 mls @ 25 mls/hr 08/30/17 14:32 08/31/17 19:02 Dextrose IVPB 0 mg/hr TITR LANE 0 mls/hr Protocol Titration 2.5 MG/HR Sodium Chloride 250 mls @ 3,000 mls/hr 08/31/17 15:41 Normal Saline - IV 09/01/17 15:41 PRN PRN Hypotension during Dialysis Lacosamide 100 mg 08/30/17 22:00 08/31/17 22:00 Vimpat - PO [address] Administration Mupirocin 1 applic 08/29/17 22:00 09/01/17 06:48 Bactroban Ointment (For Decolonization) - NS 09/03/17 21:[address] Administration Nifedipine 90 mg 08/31/17 14:00 08/31/17 14:30 Procardia Xl - PO [address] Administration Laboratory Last Values WBC 19.5 K/mm3 (4.0-10.0) H D 09/01/17 05:45 RBC 2.81 M/mm3 (4.00-5.60) L 09/01/17 05:45 Hgb 8.5 GM/dL (11.7-16.9) L 09/01/17 05:45 Hct 23.6 % (35.4-49) L 09/01/17 05:45 MCV 83.9 fl (80-96) 09/01/17 05:45 MCH 30.3 pg (25.7-33.7) 09/01/17 05:45 MCHC 36.1 g/dl (32.0-35.9) H 09/01/17 05:45 RDW 13.7 % (11.9-15.9) 09/01/17 05:45 Plt Count 166 K/MM3 (134-434) D 09/01/17 05:45 MPV 7.5 fl (7.5-11.1) 09/01/17 05:45 Neutrophils % 79.4 % (42.8-82.8) 09/01/17 05:45 Neutrophils % (Manual) 85.0 % (42.8-82.8) H 08/29/17 10:52 Band Neutrophils % 5.0 % (0-10) 08/29/17 10:52 Lymphocytes % 10.2 % (8-40) D 09/01/17 05:45 Lymphocytes % (Manual) 4.0 % (8-40) L 08/29/17 10:52 Monocytes % 9.6 % (3.8-10.2) 09/01/17 05:45 Monocytes % (Manual) 2 % (3.8-10.2) L 08/29/17 10:52 Eosinophils % 0.3 % (0-4.5) 09/01/17 05:45 Basophils % 0.5 % (0-2.0) 09/01/17 05:45 Metamyelocytes 3 % (0-2) H 08/29/17 10:52 Platelet Estimate Slt decrease 08/29/17 10:52 Platelet Comment Rare giants plts 08/29/17 10:52 Anisocytosis 1+ 08/29/17 10:52 Tear Drop Cells 1+ 08/29/17 10:52 Ovalocytes 1+ 08/29/17 10:52 Fragmented RBCs 1+ 08/29/17 10:52 Morphology Comment See comment 08/29/17 18:00 ESR 96 mm/hr (0-10) H 08/31/17 05:40 Retic Count 2.13 % (0.5-1.5) H D 08/30/17 06:05 Haptoglobin < 10 mg/dL (34-200) L 08/31/17 05:40 PT with INR 11.00 SEC (9.98-11.88) 08/31/17 05:40 INR 0.97 (0.82-1.09) 08/31/17 05:40 PTT (Actin FS) 29.9 SECONDS (26.9-34.4) 08/31/17 05:40 Fibrinogen 579.0 mg/dL (238-498) H 08/29/17 20:00 Sodium 129 mmol/L (136-145) L 09/01/17 05:45 Potassium 4.5 mmol/L (3.5-5.1) 09/01/17 05:45 Chloride 91 mmol/L (98-107) L 09/01/17 05:45 Carbon Dioxide 26 mmol/L (21-32) 09/01/17 05:45 Anion Gap 12 (8-16) 09/01/17 05:45 BUN 70 mg/dL (7-18) H D 09/01/17 05:45 Creatinine 12.1 mg/dL (0.7-1.3) H* 09/01/17 05:45 Creat Clearance w eGFR 6.35 (>60) 08/31/17 05:40 Random Glucose 124 mg/dL (74-106) H 09/01/17 05:45 Lactic Acid 0.7 mmol/L (0.0-2.0) 08/29/17 16:04 Calcium 6.9 mg/dL (8.5-10.1) L* 09/01/17 05:45 Phosphorus 6.3 mg/dL (2.5-4.9) H 09/01/17 05:45 Magnesium 1.8 mg/dL (1.8-2.4) 09/01/17 05:45 Iron 31 ug/dL (38-169) L 08/29/17 20:00 TIBC 149 ug/dL (250-450) L 08/29/17 20:00 Iron Saturation 21 % (15-55) 08/29/17 20:00 Transferrin 123 mg/dL (200-370) L 08/29/17 20:00 Ferritin 1092.933 ng/ml (16.4-293.9) H 08/29/17 20:00 Total Bilirubin 0.3 mg/dL (0.2-1.0) D 08/31/17 05:40 AST 26 U/L (15-37) D 08/31/17 05:40 ALT 12 U/L (12-78) D 08/31/17 05:40 Alkaline Phosphatase 61 U/L (45-117) 08/31/17 05:40 LD Total 828 U/L (87-241) H 08/31/17 05:40 Creatine Kinase 373 IU/L (39-308) H 08/29/17 12:37 Creatine Kinase Index 2.5 % (0.0-5.0) 08/29/17 12:37 CK-MB (CK-2) 9.4 ng/mL (0.3-4.0) H 08/29/17 12:37 Troponin I 0.25 ng/ml (0.00-0.05) H 08/31/17 05:40 C-Reactive Protein 12.9 MG/DL (0.00-0.3) H 08/31/17 05:40 Total Protein 4.7 g/dl (6.4-8.2) L 08/31/17 05:40 Total Protein (PEP) 4.2 g/dL (6.0-8.5) L 08/29/17 20:00 Albumin 1.7 g/dl (3.4-5.0) L 08/31/17 05:40 Albumin (PEP) 1.9 gm/dl (2.9-4.4) L 08/29/17 20:00 Globulin 2.3 g/dL (2.2-3.9) 08/29/17 20:00 Albumin/Globulin Ratio 0.8 (0.7-1.7) 08/29/17 20:00 Beta Globulins 0.8 gm/dL (0.7-1.3) 08/29/17 20:00 Lipase 186 U/L (73-393) 08/29/17 10:52 Vitamin B12 331 pg/ml (180-914) 08/30/17 06:05 TSH 5.20 uIU/ml (0.358-3.74) H 08/29/17 12:37 Free T4 0.73 ng/dl (0.76-1.16) L 08/30/17 06:05 Urine Color Yellow 08/29/17 10:52 Urine Appearance Clear 08/29/17 10:52 Urine pH 6.5 (4.5-8) 08/29/17 10:52 Ur Specific [place] 1.025 (1.005-1.025) 08/29/17 10:52 Urine Protein 3+ (NEGATIVE) H 08/29/17 10:52 Urine Glucose (UA) Trace (NEGATIVE) 08/29/17 10:52 Urine Ketones Trace (NEGATIVE) 08/29/17 10:52 Urine Blood 3+ (NEGATIVE) H 08/29/17 10:52 Urine Nitrite Negative (NEGATIVE) 08/29/17 10:52 Urine Bilirubin Negative (NEGATIVE) 08/29/17 10:52 Urine Urobilinogen 0.2 (0.2-1.0) 08/29/17 10:52 Ur Leukocyte Esterase Trace (NEGATIVE) H 08/29/17 10:52 Urine RBC >50 /hpf (0-3) 08/29/17 10:52 Urine WBC 3-5 (0-2) 08/29/17 10:52 Ur Epithelial Cells Few /HPF 08/29/17 10:52 Urine Bacteria None seen /hpf (NEGATIVE) 08/29/17 10:52 U Random Total Protein 1044 mg/dl (5-11.9) H 08/29/17 19:11 Ur Random Sodium 45 MMOL/L (28-272) 08/29/17 19:11 Urine Creatinine 64.4 mg/dL (20-370) 08/29/17 19:11 Random Vancomycin 9.573 ug/ml 08/30/17 06:05 Valproic Acid 32.285 ug/ml (50-100) L 08/30/17 00:45 LISA M-Marlon Not observed g/dL (Not Observed) 08/29/17 20:00 GEN Screen Negative (.) 08/29/17 20:00 Complement C3 133 mg/dL (82-167) 08/31/17 11:00 Complement C4 31 mg/dL (14-44) 08/31/17 11:00 Blood Type O POSITIVE 08/29/17 16:04 Antibody Screen Negative 08/29/17 16:04 Direct Antiglob Test Negative (NEGATIVE) 08/29/17 20:00 Crossmatch See Detail 08/29/17 20:00 Impression 1. ANNA- probably from acute GN 2. HTN urgency/emergency 3. hyperkalemia 4. hyponatremia 5. autism 6. hx of seizure 7. anemia 8. CKD 9. lactic acidosis improving 10. thrombocytopenia Plan - continue HD - continue procardia, restart cardene if encephalopathic though caution given tachycardia - monitor blood pressure - renal workup is in progress - monitor platelets - possible kidney biopsy next week after his bp is stable - monitor LDH level - keep in ICU - will follow closely -aso, antidnase b MV
[2017-09-01] MEDS: LACOSAMIDE 50 MG TABLET PO SCH ×2 (09:47→21:35)
[2017-09-01] MEDS: NIFEdipine E.R. 90 MG TABLET (FP) PO SCH (09:47)
--- NOTE | 2017-09-01 10:00 | PN ---
Progress Note (short form) - Note Progress Note: PULM/CCM SUBJECTIVE: Patient seen and examined in the ICU. Getting HD now, plan for 1.5 off cont to improve mental status Vital Signs Temp 98.4 F 09/01/17 08:00 Pulse 123 H 09/01/17 09:00 Resp 18 09/01/17 09:00 BP 177/115 09/01/17 09:00 Pulse Ox 94 L 08/31/17 21:00 Intake & Output 08/31/17 08/31/17 09/01/17 11:59 23:59 11:59 Intake Total 1290 1065 240 Output Total 150 200 50 Balance 1140 865 190 Weight 87.634 kg Intake: IV 750 825 Cardene - 25 mg In D5w - 750 825 240 ml @ 2.5 MG/HR 25 mls /hr IVPB TITR LANE Rx#: [id number] Oral 540 240 240 Output: Urine 150 200 50 Ruiz 150 200 50 Other: Voiding Method Indwelling Catheter Indwelling Catheter Active Medications Chlorhexidine Gluconate (Hibiclens For Decolonization -) 1 applic TP HS [facility] Last Admin: 08/31/17 23:00 Dose: 1 applic Sodium Chloride (Normal Saline -) 250 mls @ 3,000 mls/hr IV PRN PRN PRN Reason: Hypotension during Dialysis Stop: 08/31/17 10:07 Nicardipine HCl 25 mg/ (Dextrose) 250 mls @ 25 mls/hr IVPB TITR LANE; 2.5 MG/HR PRN Reason: Protocol Last Titration: 08/31/17 19:02 Dose: 0 mg/hr, 0 mls/hr Sodium Chloride (Normal Saline -) 250 mls @ 3,000 mls/hr IV PRN PRN PRN Reason: Hypotension during Dialysis Stop: 09/01/17 15:41 Lacosamide (Vimpat -) 100 mg PO BID [facility] Last Admin: 09/01/17 09:47 Dose: 100 mg Mupirocin (Bactroban Ointment (For Decolonization) -) 1 applic NS BID [facility] Stop: 09/03/17 21:59 Last Admin: 09/01/17 09:47 Dose: 1 applic Nifedipine (Procardia Xl -) 90 mg PO DAILY [facility] Last Admin: 09/01/17 09:47 Dose: 90 mg Constitutional: Yes: No Distress, alert to baseline per Dad Eyes: Yes: WNL, PERRL HENT: Yes: Atraumatic, Normocephalic Neck: Yes: Supple, Trachea Midline Cardiovascular: Yes: Regular Rate and Rhythm, S1, S2 no m/r/g appreciated, remains tachy Respiratory: Yes: CTA Bilaterally Gastrointestinal: Yes: Normal Bowel Sounds, Soft, Other (non tender) Renal/: Yes: Ruiz Present Extremities: Yes: WNL Edema: No Peripheral Pulses WNL: Yes Integumentary: Yes: WNL Neurological: Yes: to baseline, interactive with father, + vocalizations ...Motor Strength: WNL CBCD WBC 19.5 K/mm3 (4.0-10.0) H D 09/01/17 05:45 RBC 2.81 M/mm3 (4.00-5.60) L 09/01/17 05:45 Hgb 8.5 GM/dL (11.7-16.9) L 09/01/17 05:45 Hct 23.6 % (35.4-49) L 09/01/17 05:45 MCV 83.9 fl (80-96) 09/01/17 05:45 MCHC 36.1 g/dl (32.0-35.9) H 09/01/17 05:45 RDW 13.7 % (11.9-15.9) 09/01/17 05:45 Plt Count 166 K/MM3 (134-434) D 09/01/17 05:45 MPV 7.5 fl (7.5-11.1) 09/01/17 05:45 CMP Sodium 129 mmol/L (136-145) L 09/01/17 05:45 Potassium 4.5 mmol/L (3.5-5.1) 09/01/17 05:45 Chloride 91 mmol/L (98-107) L 09/01/17 05:45 Carbon Dioxide 26 mmol/L (21-32) 09/01/17 05:45 Anion Gap 12 (8-16) 09/01/17 05:45 BUN 70 mg/dL (7-18) H D 09/01/17 05:45 Creatinine 12.1 mg/dL (0.7-1.3) H* 09/01/17 05:45 Creat Clearance w eGFR 6.35 (>60) 08/31/17 05:40 Random Glucose 124 mg/dL (74-106) H 09/01/17 05:45 Calcium 6.9 mg/dL (8.5-10.1) L* 09/01/17 05:45 Total Bilirubin 0.3 mg/dL (0.2-1.0) D 08/31/17 05:40 AST 26 U/L (15-37) D 08/31/17 05:40 ALT 12 U/L (12-78) D 08/31/17 05:40 Alkaline Phosphatase 61 U/L (45-117) 08/31/17 05:40 Total Protein 4.7 g/dl (6.4-8.2) L 08/31/17 05:40 Albumin 1.7 g/dl (3.4-5.0) L 08/31/17 05:40 CARDIAC ENZYMES Creatine Kinase 373 IU/L (39-308) H 08/29/17 12:37 Troponin I 0.25 ng/ml (0.00-0.05) H 08/31/17 05:40 Problem List - Problems (1) Hypertensive urgency Code(s): I16.0 - HYPERTENSIVE URGENCY (2) Hyperkalemia Code(s): E87.5 - HYPERKALEMIA (3) Anemia Code(s): D64.9 - ANEMIA, UNSPECIFIED (4) Thrombocytopenia Code(s): D69.6 - THROMBOCYTOPENIA, UNSPECIFIED (5) Acute renal failure Code(s): N17.9 - ACUTE KIDNEY FAILURE, UNSPECIFIED Qualifiers: Acute renal failure type: unspecified Qualified Code(s): N17.9 - Acute kidney failure, unspecified Assessment/Plan HD per Renal cont antihtns Strict I&O Heme workup ongoing Normal transfusion thresholds Follow cultures Off ABX per ID Aspiration precautions ICU monitoring , transition to floor if stable BP post HD [place] ACNP [id number] Critical care time spent in reviewing chart, evaluating patient and formulating plan - 36 minutes.
--- NOTE | 2017-09-01 14:49 | PN ---
Progress Note (short form) - Note Progress Note: Seen in follow up. Mother at bedside - no new complaints. Indicates his abdomen looks distended, passing wind. Low grade temp this morning. Meds reviewed. Current Medications Generic Name Dose Route Start Last Admin Trade Name Franko PRN Reason Stop Dose Admin Chlorhexidine Gluconate 1 applic 08/29/17 22:00 08/31/17 23:00 Hibiclens For Decolonization - TP [address] Administration Sodium Chloride 250 mls @ 3,000 mls/hr 08/30/17 10:07 Normal Saline - IV 08/31/17 10:07 PRN PRN Hypotension during Dialysis Nicardipine HCl 25 mg/ 250 mls @ 25 mls/hr 08/30/17 14:32 08/31/17 19:02 Dextrose IVPB 0 mg/hr TITR LANE 0 mls/hr Protocol Titration 2.5 MG/HR Sodium Chloride 250 mls @ 3,000 mls/hr 08/31/17 15:41 Normal Saline - IV 09/01/17 15:41 PRN PRN Hypotension during Dialysis Lacosamide 100 mg 08/30/17 22:00 09/01/17 09:47 Vimpat - PO [address] Administration Mupirocin 1 applic 08/29/17 22:00 09/01/17 09:47 Bactroban Ointment (For Decolonization) - NS 09/03/17 21:[address] Administration Nifedipine 90 mg 08/31/17 14:00 09/01/17 09:47 Procardia Xl - PO [address] Administration On exam: Last Vital Signs Temp Pulse Resp BP Pulse Ox 100.2 F H 120 H 23 172/114 94 L 09/01/17 13:55 09/01/17 13:00 09/01/17 13:00 09/01/17 13:00 08/31/17 21:00 General: Looks well, supine in bed. Extremities: No pallor, no icterus. Chest: breathing comfortably, clear to auscultation CVS: S1, S2, no gallop or murmur. Abdomen: Soft, distended, resonant, no organomegaly, no masses. Neuro: Alert, not interactive, non-verbal, non-focal. Skin: unremarkable CBC, BMP 09/01/17 05:45 09/01/17 05:45 Assessment. 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 Now improving, with decrease in LDH and improvement in platelets. BP better controlled, but still hypertensive, started on oral antihypertensive. 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 Today low-grade temp and neutrophilia - no obvious source of infection - check blood cultures now. Will follow.
[2017-09-01] MEDS ORDERED: niCARdipine HCL 25 MG/10 ML AMPUL IVPB ONE (15:55)
[2017-09-01] MEDS: NICARDIPINE 25 MG in DEXTROSE 5%-WATER - 240 ML IVPB SCH ×2 (16:06→23:09)
[2017-09-01] MEDS ORDERED: ACETAMINOPHEN 325 MG TABLET (FP) ONE (16:55)
[2017-09-01] MEDS: ACETAMINOPHEN 325 MG TABLET (FP) PO PRN (17:28)
[2017-09-01] MEDS ORDERED: ALBUTEROL SO4 2.5/IPRATROPIUM 0.5 INH SOL 3 ML VIAL.NEB. NEB SCH (17:30)
[2017-09-01] MEDS: ALBUTEROL SO4 2.5/IPRATROPIUM 0.5 INH SOL 3 ML VIAL.NEB. NEB SCH ×2 (18:08→23:20)
[2017-09-01] MEDS ORDERED: LORazepam 1 MG TABLET PO ONE (21:15)
[2017-09-01] MEDS ORDERED: PIPERACIL/TAZOB 3.375 GM 3.375 GM/50 ML PREMIX IVPB ONE (22:06)
[2017-09-01] MEDS ORDERED: VANCOMYCIN 1 GRAM (PRE-DOCKED) 1,000 MG/250 ML BAG IVPB ONE (22:11)
[2017-09-01] MEDS ORDERED: DEXTROSE 5%-WATER - 50 ML IVPB ONE (22:29)
[2017-09-01] MEDS ORDERED: PIPERACILLIN/TAZOBACTAM 3.375 GM VIAL IVPB ONE (22:29)
[2017-09-01] MEDS ORDERED: PIPERACILLIN/TAZOB 3.375 GM 3.375 GM in DEXTROSE 5%-WATER - 50 ML IVPB ONE (22:30)
[2017-09-01] MEDS: CHLORHEXIDINE GLUCONATE 4% CLEANSER FOR DECOLONIZATION TP SCH (23:09)
[2017-09-02 06:10] LABS: BASO % 0.1 % (0-2.0); EOS % 0.4 % (0-4.5); HEMATOCRIT 22.9 % (35.4-49); HEMOGLOBIN 7.8 GM/dL (11.7-16.9); LYMPH % 12.3 % (8-40); MCH 29.5 pg (25.7-33.7); MCHC 34.3 g/dl (32.0-35.9); MEAN CELL VOLUME 86.1 fl (80-96); MEAN PLT VOLUME 6.9 fl (7.5-11.1); MONO % 10.8 % (3.8-10.2); NEUT % 76.4 % (42.8-82.8); PLATELET COUNT 231 K/MM3 (134-434); RBC 2.66 M/mm3 (4.00-5.60); RDW 13.7 % (11.9-15.9); WHITE BLOOD COUNT 18.8 K/mm3 (4.0-10.0)
[2017-09-02 06:33] LABS: ALBUMIN 1.6 g/dl (3.4-5.0); ANION GAP 14 (8-16); BILIRUBIN,TOTAL 0.3 mg/dL (0.2-1.0); BLOOD UREA NITROGEN 46 mg/dL (7-18); CALCIUM 7.5 mg/dL (8.5-10.1); CHLORIDE 93 mmol/L (98-107); CO2 28 mmol/L (21-32); GLUCOSE,RANDOM 87 mg/dL (74-106); SGOT/AST 19 U/L (15-37); SGPT/ALT 8 U/L (12-78); SODIUM 135 mmol/L (136-145); TOT PROT 4.9 g/dl (6.4-8.2)
[2017-09-02 06:42] LABS: ALK PHOS 61 U/L (45-117)
[2017-09-02] MEDS: ALBUTEROL SO4 2.5/IPRATROPIUM 0.5 INH SOL 3 ML VIAL.NEB. NEB SCH ×3 (06:51→17:31)
[2017-09-02 06:57] LABS: CREATININE 9.6 mg/dL (0.7-1.3)
--- NOTE | 2017-09-02 07:06 | PN ---
Progress Note, Physician Chief Complaint: ID Since yesterday developed low grade temps along with persistant leukocytosis. Chests xrays ordered shows evolving atalectasis of the left lung. Compete opacification seen most consistent with atalectasis Given a dose of Vanco and Zosyn. Heis tachypneic wearing facial tent. - Current Medication List Current Medications: Active Medications Acetaminophen (Tylenol -) 650 mg PO Q6H PRN PRN Reason: fever Last Admin: 09/01/17 17:28 Dose: 650 mg Albuterol/Ipratropium (Duoneb -) [address] Last Admin: 09/02/17 06:51 Dose: 1 amp Chlorhexidine Gluconate (Hibiclens For Decolonization -) 1 applic TP HS [facility] Last Admin: 09/01/17 23:09 Dose: 1 applic Sodium Chloride (Normal Saline -) 250 mls @ 3,000 mls/hr IV PRN PRN PRN Reason: Hypotension during Dialysis Stop: 08/31/17 10:07 Nicardipine HCl 25 mg/ (Dextrose) 250 mls @ 25 mls/hr IVPB TITR LANE; 2.5 MG/HR PRN Reason: Protocol Last Admin: 09/01/17 23:09 Dose: 3 mg/hr, 30 mls/hr Lacosamide (Vimpat -) 100 mg PO BID [facility] Last Admin: 09/01/17 21:35 Dose: 100 mg Mupirocin (Bactroban Ointment (For Decolonization) -) 1 applic NS BID [facility] Stop: 09/03/17 21:59 Last Admin: 09/01/17 21:37 Dose: 1 applic Nifedipine (Procardia Xl -) 90 mg PO DAILY [facility] Last Admin: 09/01/17 09:47 Dose: 90 mg - Objective Vital Signs: Vital Signs Temperature 98.6 F 09/02/17 06:00 Pulse Rate 122 H 09/02/17 06:00 Respiratory Rate 24 09/02/17 06:00 Blood Pressure 109/94 09/02/17 06:00 O2 Sat by Pulse Oximetry (%) 98 09/01/17 22:00 Constitutional: Yes: Mild Distress Neck: Yes: Other (Dialysis catheter) Cardiovascular: Yes: Tachycardia, S1, S2. No: Murmur Respiratory: Yes: WNL, Regular, CTA Bilaterally Gastrointestinal: Yes: Soft, Distention. No: Tenderness, Tenderness, Rebound Edema: No Labs: CBC, BMP 09/02/17 05:50 09/02/17 05:50 INR, PTT INR 0.97 (0.82-1.09) 08/31/17 05:40 Fibrinogen 579.0 mg/dL (238-498) H 08/29/17 20:00 Problem List - Problems (1) Acute renal failure Code(s): N17.9 - ACUTE KIDNEY FAILURE, UNSPECIFIED Qualifiers: Acute renal failure type: unspecified Qualified Code(s): N17.9 - Acute kidney failure, unspecified (2) Hypertensive urgency Code(s): I16.0 - HYPERTENSIVE URGENCY (3) Sepsis Code(s): A41.9 - SEPSIS, UNSPECIFIED ORGANISM Qualifiers: Sepsis type: sepsis due to unspecified organism Qualified Code(s): A41.9 - Sepsis, unspecified organism Assessment/Plan Microbiology Laboratory Tests 09/02/17 05:50 WBC 18.8 H Hgb 7.8 L Hct 22.9 L Plt Count 231 D Assessment Acute renal failure requiring dialysis Hypertensive emergency Low grade fever Leukocytosis secondary atalectasis Respiratory distress secondary atalectasis left lung Plan Would treat for ? pneumonia Zosyn 2.25grs q 8 H [place] BILLS
[2017-09-02] MEDS ORDERED: SODIUM CHLORIDE FOR INHALATION 3 ML VIAL.NEB IH SCH (08:30)
--- NOTE | 2017-09-02 09:07 | PN ---
Progress Note (short form) - Note Progress Note: PULM/CCM SUBJECTIVE: Patient seen and examined in the ICU. No acute complaints 24Hr -HD yesterday -increased effusion atelectasis of L lung -increased o2 requirement -getting chest pt with hypertonic saline -low grade temp, started abx for aspiration pna, Vital Signs Temp 98.6 F 09/02/17 06:00 Pulse 122 H 09/02/17 06:00 Resp 24 09/02/17 08:00 BP 179/116 09/02/17 08:00 Pulse Ox 98 09/01/17 22:00 Intake & Output 09/01/17 09/01/17 09/02/17 11:59 23:59 11:59 Intake Total 240 884 360 Output Total 50 105 0 Balance 190 779 360 Weight 88.932 kg Intake: IV 84 360 Cardene - 25 mg In D5w - 84 360 240 ml @ 2.5 MG/HR 25 mls /hr IVPB TITR LANE Rx#: [id number] IVPB 350 Oral 240 450 0 Output: Urine 50 105 0 Ruiz 50 105 Void 0 0 Other: Voiding Method Indwelling Catheter Weight Measurement Method Built in [facility] Active Medications Acetaminophen (Tylenol -) 650 mg PO Q6H PRN PRN Reason: fever Last Admin: 09/01/17 17:28 Dose: 650 mg Albuterol/Ipratropium (Duoneb -) [address] Last Admin: 09/02/17 06:51 Dose: 1 amp Chlorhexidine Gluconate (Hibiclens For Decolonization -) [address] Last Admin: 09/01/17 23:09 Dose: 1 applic Sodium Chloride (Normal Saline -) 250 mls @ 3,000 mls/hr IV PRN PRN PRN Reason: Hypotension during Dialysis Stop: 08/31/17 10:07 Nicardipine HCl 25 mg/ (Dextrose) 250 mls @ 25 mls/hr IVPB TITR LNAE; 2.5 MG/HR PRN Reason: Protocol Last Admin: 09/01/17 23:09 Dose: 3 mg/hr, 30 mls/hr Piperacillin Sod/Tazobactam (Sod 2.25 gm/ Dextrose) 50 mls @ 100 mls/hr IVPB Q8H-IV LANE PRN Reason: Protocol Lacosamide (Vimpat -) 100 mg PO BID [facility] Last Admin: 09/01/17 21:35 Dose: 100 mg Mupirocin (Bactroban Ointment (For Decolonization) -) 1 applic NS BID [facility] Stop: 09/03/17 21:59 Last Admin: 09/01/17 21:37 Dose: 1 applic Nifedipine (Procardia Xl -) 90 mg PO DAILY [facility] Last Admin: 09/01/17 09:47 Dose: 90 mg Sodium Chloride (Normal Saline For Inhalation -) 3 ml IH Q6H [facility] Stop: 09/02/17 20:31 Constitutional: Yes:mild resp Distress, alert to baseline per Dad Eyes: Yes: WNL, PERRL HENT: Yes: Atraumatic, Normocephalic Neck: Yes: Supple, Trachea Midline Cardiovascular: Yes: Regular Rate and Rhythm, S1, S2 no m/r/g appreciated, remains tachy Respiratory: Yes: diminished on L Gastrointestinal: Yes: Normal Bowel Sounds, Soft, Other (non tender) Renal/: Yes: Ruiz Present Extremities: Yes: WNL Edema: No Peripheral Pulses WNL: Yes Integumentary: Yes: WNL Neurological: Yes: to baseline, interactive with father, + vocalizations ...Motor Strength: WNL CBCD WBC 18.8 K/mm3 (4.0-10.0) H 09/02/17 05:50 RBC 2.66 M/mm3 (4.00-5.60) L 09/02/17 05:50 Hgb 7.8 GM/dL (11.7-16.9) L 09/02/17 05:50 Hct 22.9 % (35.4-49) L 09/02/17 05:50 MCV 86.1 fl (80-96) 09/02/17 05:50 MCHC 34.3 g/dl (32.0-35.9) 09/02/17 05:50 RDW 13.7 % (11.9-15.9) 09/02/17 05:50 Plt Count 231 K/MM3 (134-434) D 09/02/17 05:50 MPV 6.9 fl (7.5-11.1) L 09/02/17 05:50 CMP Sodium 135 mmol/L (136-145) L 09/02/17 05:50 Potassium 5.0 mmol/L (3.5-5.1) 09/02/17 05:50 Chloride 93 mmol/L (98-107) L 09/02/17 05:50 Carbon Dioxide 28 mmol/L (21-32) 09/02/17 05:50 Anion Gap 14 (8-16) 09/02/17 05:50 BUN 46 mg/dL (7-18) H D 09/02/17 05:50 Creatinine 9.6 mg/dL (0.7-1.3) H* D 09/02/17 05:50 Creat Clearance w eGFR 6.89 (>60) 09/02/17 05:50 Random Glucose 87 mg/dL (74-106) D 09/02/17 05:50 Calcium 7.5 mg/dL (8.5-10.1) L 09/02/17 05:50 Total Bilirubin 0.3 mg/dL (0.2-1.0) 09/02/17 05:50 AST 19 U/L (15-37) D 09/02/17 05:50 ALT 8 U/L (12-78) L D 09/02/17 05:50 Alkaline Phosphatase 61 U/L (45-117) 09/02/17 05:50 Total Protein 4.9 g/dl (6.4-8.2) L 09/02/17 05:50 Albumin 1.6 g/dl (3.4-5.0) L 09/02/17 05:50 CARDIAC ENZYMES Creatine Kinase 373 IU/L (39-308) H 08/29/17 12:37 Troponin I 0.25 ng/ml (0.00-0.05) H 08/31/17 05:40 Problem List - Problems (1) Hypertensive urgency Code(s): I16.0 - HYPERTENSIVE URGENCY (2) Hyperkalemia Code(s): E87.5 - HYPERKALEMIA (3) Anemia Code(s): D64.9 - ANEMIA, UNSPECIFIED (4) Thrombocytopenia Code(s): D69.6 - THROMBOCYTOPENIA, UNSPECIFIED (5) Acute renal failure Code(s): N17.9 - ACUTE KIDNEY FAILURE, UNSPECIFIED Qualifiers: Acute renal failure type: unspecified Qualified Code(s): N17.9 - Acute kidney failure, unspecified Assessment/Plan HD per Renal , no acute need today aggressive chest pt with hypertonic may need CT chest, on US of L hemithorax, appears some loculated effusions cont antihtns, wean off gtt Strict I&O Heme workup ongoing Normal transfusion thresholds ID following, started abx, Follow cultures Aspiration precautions ICU monitoring [place] ACNP [id number] Critical care time spent in reviewing chart, evaluating patient and formulating plan - 36 minutes.
[2017-09-02] MEDS ORDERED: ACETAMINOPHEN 1000 MG/100 ML VIAL (NON FORMULARY) IVPB ONE (09:14)
--- NOTE | 2017-09-02 09:16 | PN ---
Physical Exam: SUBJECTIVE: Patient seen and examined at the bedside. Father at bedside. OBJECTIVE: Restarted the Nicardipine drip overnight but remains with elevated BP with minimal improvement Cardiology consulted Vital Signs Period Temp Pulse Resp BP Sys/Mora Pulse Ox Last 24 Hr 98.5 F-100.6 F 117-142 18-30 109-180/73-118 98 GENERAL: The patient is awake, alert, in no acute distress HEAD: Normal with no signs of trauma. EYES: PERRL, extraocular movements intact, sclera anicteric, conjunctiva clear. No ptosis. ENT: Ears normal, nares patent, oropharynx clear without exudates, moist mucous membranes. NECK: Trachea midline, full range of motion, supple. LUNGS: anterior lung sounds diminished, mostly clear. 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 Makes his needs known, states he is hungry PSYCH: Normal mood, normal affect. Laboratory Results - last 24 hr 08/29/17 09/02/17 09/02/17 20:00 05:50 05:50 WBC 18.8 H RBC 2.66 L Hgb 7.8 L Hct 22.9 L MCV 86.1 MCH 29.5 MCHC 34.3 RDW 13.7 Plt Count 231 D MPV 6.9 L Neutrophils % 76.4 Lymphocytes % 12.3 D Monocytes % 10.8 H Eosinophils % 0.4 Basophils % 0.1 Sodium 135 L Potassium 5.0 Chloride 93 L Carbon Dioxide 28 Anion Gap 14 BUN 46 H D Creatinine 9.6 H* D Creat Clearance w eGFR 6.89 Random Glucose 87 D Calcium 7.5 L Magnesium 2.0 Total Bilirubin 0.3 AST 19 D ALT 8 L D Alkaline Phosphatase 61 Total Protein 4.9 L Albumin 1.6 L Direct Antiglob Test Negative Crossmatch See Detail Active Medications Generic Name Dose Route Start Last Admin Trade Name Freq PRN Reason Stop Dose Admin Acetaminophen 650 mg 09/01/17 17:04 09/01/17 17:28 Tylenol - PO 650 mg Q6H PRN Administration fever Acetaminophen 1,000 mg 09/02/17 09:14 Ofirmev Injection - IVPB 09/02/17 09:15 ONCE ONE Albuterol/Ipratropium 1 amp 09/01/17 18:00 09/02/17 06:51 Duoneb - NEB [address] Administration Chlorhexidine Gluconate 1 applic 08/29/17 22:00 09/01/17 23:09 Hibiclens For Decolonization - TP [address] Administration Sodium Chloride 250 mls @ 3,000 mls/hr 08/30/17 10:07 Normal Saline - IV 08/31/17 10:07 PRN PRN Hypotension during Dialysis Nicardipine HCl 25 mg/ 250 mls @ 25 mls/hr 08/30/17 14:32 09/01/17 23:09 Dextrose IVPB 3 mg/hr TITR LANE 30 mls/hr Protocol Administration 2.5 MG/HR Piperacillin Sod/Tazobactam 50 mls @ 100 mls/hr 09/02/17 10:00 Sod 2.25 gm/ Dextrose IVPB Q8H-IV LANE Protocol Lacosamide 100 mg 08/30/17 22:00 09/01/17 21:35 Vimpat - PO [address] Administration Mupirocin 1 applic 08/29/17 22:00 09/01/17 21:37 Bactroban Ointment (For Decolonization) - NS 09/03/17 21:[address] Administration Nifedipine 90 mg 08/31/17 14:00 09/01/17 09:47 Procardia Xl - PO [address] Administration Sodium Chloride 3 ml 09/02/17 08:30 Normal Saline For Inhalation - IH 09/02/17 20:[address] ASSESSMENT/PLAN: Patient is a 22 year old male with a significant past medical history of autism and seizure disorder. He presents of the Ed with c/o of weakness, diarrhea and increased dyspnea. As per admitting notes, pt was being treated with Keflex for skin infection then developed diarrhea and was given Immodium by family for the diarrhea. Family then noted patient became weaker, had increased dyspnea at rest and had a poor appetite. On admission his creatinine was noted to be 20.5 and was noted to have hypertensive urgency with a low hmg/hct and in electrolyte imbalance of unclear etiology. Renal: Acute Kidney Injury presented with creat of 20.5, now has received dialysis since admission, most recent dialysis yesterday Nephrology following Monitor intake and output + edema on bilateral arms Card: Hypertensive urgency BP remains elevated, restart Nicardipine HCL 25mg drip Given Procardia today but remains with tachycardia, hypertension Cardiology consulted Pulm: Chest CT with a large pleural effusion, s/p thoracentesis today monitor respiratory status Now on Zosyn Neuro: Seizures, chronic On Vimpat Heme: Anemia, thrombocytopena s/p 2 unit of prbc Monitor CBC ID: Leukocytosis Blood cultures pending Low grade fevers Started on Zosyn and Vanco ID following GI: Diarrhea Now resolved F.E.N. Fluids: PO adequate Electrolytes: monitor with daily labs Nutrition: renal diet Prophy: GI: deferred DVT: SCDs bilaterally Dispositon: full code
[2017-09-02] MEDS ORDERED: DEXTROSE 5%-WATER - 50 ML IVPB ONE ×2 (09:22→17:18)
[2017-09-02] MEDS ORDERED: PIPERACILLIN/TAZOBACTAM 2.25 GM VIAL IVPB ONE ×2 (09:22→17:18)
[2017-09-02] MEDS: MUPIROCIN 2% TOPICAL OINTMENT FOR DECOLONIZATION NS SCH ×2 (09:30→22:26)
[2017-09-02] MEDS: NIFEdipine E.R. 90 MG TABLET (FP) PO SCH ×2 (09:30→09:42)
[2017-09-02] MEDS: LACOSAMIDE 50 MG TABLET PO SCH (09:30)
[2017-09-02] MEDS: PIPERACILLIN/TAZOB 2.25 GM 2.25 GM in DEXTROSE 5%-WATER - 50 ML IVPB SCH ×2 (09:30→17:30)
--- NOTE | 2017-09-02 09:41 | PN ---
Progress Note (short form) - Note Progress Note: RENAL Pt seen and examined. father by bedside Father states pt had some "lumps" on his skin cardene was restarted Last Vital Signs Temp Pulse Resp BP Pulse Ox 98.6 F 122 H 24 185/115 98 09/02/17 06:00 09/02/17 09:00 09/02/17 08:00 09/02/17 09:00 09/01/17 22:00 Lungs clear cvs s1s2 tachycardic, no rub, +fatimah abd soft ext no lower extremity edema, has bilat upper ext edema neuro asleep skin no obvious rash CBC, BMP 09/02/17 05:50 09/02/17 05:50 Current Medications Generic Name Dose Route Start Last Admin Trade Name Freq PRN Reason Stop Dose Admin Acetaminophen 650 mg 09/01/17 17:04 09/01/17 17:28 Tylenol - PO 650 mg Q6H PRN Administration fever Albuterol/Ipratropium 1 amp 09/01/17 18:00 09/02/17 06:51 Duoneb - NEB [address] Administration Chlorhexidine Gluconate 1 applic 08/29/17 22:00 09/01/17 23:09 Hibiclens For Decolonization - TP [address] Administration Sodium Chloride 250 mls @ 3,000 mls/hr 08/30/17 10:07 Normal Saline - IV 08/31/17 10:07 PRN PRN Hypotension during Dialysis Nicardipine HCl 25 mg/ 250 mls @ 25 mls/hr 08/30/17 14:32 09/02/17 09:00 Dextrose IVPB 7.5 mg/hr TITR LANE 75 mls/hr Protocol Titration 2.5 MG/HR Piperacillin Sod/Tazobactam 50 mls @ 100 mls/hr 09/02/17 10:00 09/02/17 09:30 Sod 2.25 gm/ Dextrose IVPB 100 mls/hr Q8H-IV LANE Administration Protocol Lacosamide 100 mg 08/30/17 22:00 09/02/17 09:30 Vimpat - PO [address] Administration Mupirocin 1 applic 08/29/17 22:00 09/02/17 09:30 Bactroban Ointment (For Decolonization) - NS 09/03/17 21:[address] Administration Nifedipine 90 mg 08/31/17 14:00 09/02/17 09:30 Procardia Xl - PO Not Given DAILY [facility] Sodium Chloride 3 ml 09/02/17 08:30 Normal Saline For Inhalation - IH 09/02/17 20:[address] Impression 1. 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 HTN urgency/emergency 3. hyperkalemia 4. hyponatremia 5. autism 6. hx of seizure 7. anemia 8. CKD 9. lactic acidosis improving 10. thrombocytopenia 11. haptoglobin was low but he was transfused Plan - continue HD as necessary - continue cardene - monitor blood pressure - renal workup is in progress - monitor platelets - possible kidney biopsy next week after his bp is stable - monitor LDH level - keep in ICU - will follow closely -antidnase b pending - would consider a beta rosa if he continues to be tachycardic especially since he is on a dihydropyridine MV
--- NOTE | 2017-09-02 12:03 | CON.CARD ---
Cardiology Consult (text) - Consultation Consultation Note: cc: sob, diarrhea hx from charts, family, pt with ams hpi: 22 m hx autism, seizures here with ams, sob, diarrhea, found to have ANNA. No cp, loc, pnd, orthopnea, le edema. No hx hrt dz. Has been on HD here due to anna. Also with elevated bp, now on nicard gtt. pmh: per hpi psh: hernia repair fam: dad cabg 40s social: no tob ros: unable to obtain 2/2 ams meds: Home Medications Medication Instructions Recorded Divalproex [Depakote -] 250 mg PO DAILY 01/22/16 pe: Vital Signs Period Temp Pulse Resp BP Sys/Mora Pulse Ox Last 24 Hr 98.6 F-100.6 F 117-142 19-30 109-185/73-118 98 nad no jvd rrr s1 s2 no mrg dec bs left, poor eff lethargic no jaundice diaphoresis pos dp pt trace le edema bl abd nd pos bs Laboratory Last Values WBC 18.8 K/mm3 (4.0-10.0) H 09/02/17 05:50 RBC 2.66 M/mm3 (4.00-5.60) L 09/02/17 05:50 Hgb 7.8 GM/dL (11.7-16.9) L 09/02/17 05:50 Hct 22.9 % (35.4-49) L 09/02/17 05:50 MCV 86.1 fl (80-96) 09/02/17 05:50 MCH 29.5 pg (25.7-33.7) 09/02/17 05:50 MCHC 34.3 g/dl (32.0-35.9) 09/02/17 05:50 RDW 13.7 % (11.9-15.9) 09/02/17 05:50 Plt Count 231 K/MM3 (134-434) D 09/02/17 05:50 MPV 6.9 fl (7.5-11.1) L 09/02/17 05:50 Neutrophils % 76.4 % (42.8-82.8) 09/02/17 05:50 Neutrophils % (Manual) 85.0 % (42.8-82.8) H 08/29/17 10:52 Band Neutrophils % 5.0 % (0-10) 08/29/17 10:52 Lymphocytes % 12.3 % (8-40) D 09/02/17 05:50 Lymphocytes % (Manual) 4.0 % (8-40) L 08/29/17 10:52 Monocytes % 10.8 % (3.8-10.2) H 09/02/17 05:50 Monocytes % (Manual) 2 % (3.8-10.2) L 08/29/17 10:52 Eosinophils % 0.4 % (0-4.5) 09/02/17 05:50 Basophils % 0.1 % (0-2.0) 09/02/17 05:50 Metamyelocytes 3 % (0-2) H 08/29/17 10:52 Platelet Estimate Slt decrease 08/29/17 10:52 Platelet Comment Rare giants plts 08/29/17 10:52 Anisocytosis 1+ 08/29/17 10:52 Tear Drop Cells 1+ 08/29/17 10:52 Ovalocytes 1+ 08/29/17 10:52 Fragmented RBCs 1+ 08/29/17 10:52 Morphology Comment See comment 08/29/17 18:00 ESR 96 mm/hr (0-10) H 08/31/17 05:40 Retic Count 2.13 % (0.5-1.5) H D 08/30/17 06:05 Haptoglobin < 10 mg/dL (34-200) L 08/31/17 05:40 PT with INR 11.00 SEC (9.98-11.88) 08/31/17 05:40 INR 0.97 (0.82-1.09) 08/31/17 05:40 PTT (Actin FS) 29.9 SECONDS (26.9-34.4) 08/31/17 05:40 Fibrinogen 579.0 mg/dL (238-498) H 08/29/17 20:00 Sodium 135 mmol/L (136-145) L 09/02/17 05:50 Potassium 5.0 mmol/L (3.5-5.1) 09/02/17 05:50 Chloride 93 mmol/L (98-107) L 09/02/17 05:50 Carbon Dioxide 28 mmol/L (21-32) 09/02/17 05:50 Anion Gap 14 (8-16) 09/02/17 05:50 BUN 46 mg/dL (7-18) H D 09/02/17 05:50 Creatinine 9.6 mg/dL (0.7-1.3) H* D 09/02/17 05:50 Creat Clearance w eGFR 6.89 (>60) 09/02/17 05:50 Random Glucose 87 mg/dL (74-106) D 09/02/17 05:50 Lactic Acid 0.7 mmol/L (0.0-2.0) 08/29/17 16:04 Calcium 7.5 mg/dL (8.5-10.1) L 09/02/17 05:50 Phosphorus 6.3 mg/dL (2.5-4.9) H 09/01/17 05:45 Magnesium 2.0 mg/dL (1.8-2.4) 09/02/17 05:50 Iron 31 ug/dL (38-169) L 08/29/17 20:00 TIBC 149 ug/dL (250-450) L 08/29/17 20:00 Iron Saturation 21 % (15-55) 08/29/17 20:00 Transferrin 123 mg/dL (200-370) L 08/29/17 20:00 Ferritin 1092.933 ng/ml (16.4-293.9) H 08/29/17 20:00 Total Bilirubin 0.3 mg/dL (0.2-1.0) 09/02/17 05:50 AST 19 U/L (15-37) D 09/02/17 05:50 ALT 8 U/L (12-78) L D 09/02/17 05:50 Alkaline Phosphatase 61 U/L (45-117) 09/02/17 05:50 LD Total 828 U/L (87-241) H 08/31/17 05:40 Creatine Kinase 373 IU/L (39-308) H 08/29/17 12:37 Creatine Kinase Index 2.5 % (0.0-5.0) 08/29/17 12:37 CK-MB (CK-2) 9.4 ng/mL (0.3-4.0) H 08/29/17 12:37 Troponin I 0.25 ng/ml (0.00-0.05) H 08/31/17 05:40 C-Reactive Protein 12.9 MG/DL (0.00-0.3) H 08/31/17 05:40 Total Protein 4.9 g/dl (6.4-8.2) L 09/02/17 05:50 Total Protein (PEP) 4.2 g/dL (6.0-8.5) L 08/29/17 20:00 Albumin 1.6 g/dl (3.4-5.0) L 09/02/17 05:50 Albumin (PEP) 1.9 gm/dl (2.9-4.4) L 08/29/17 20:00 Globulin 2.3 g/dL (2.2-3.9) 08/29/17 20:00 Albumin/Globulin Ratio 0.8 (0.7-1.7) 08/29/17 20:00 Beta Globulins 0.8 gm/dL (0.7-1.3) 08/29/17 20:00 Lipase 186 U/L (73-393) 08/29/17 10:52 Vitamin B12 331 pg/ml (180-914) 08/30/17 06:05 TSH 5.20 uIU/ml (0.358-3.74) H 08/29/17 12:37 Free T4 0.73 ng/dl (0.76-1.16) L 08/30/17 06:05 Urine Color Yellow 08/29/17 10:52 Urine Appearance Clear 08/29/17 10:52 Urine pH 6.5 (4.5-8) 08/29/17 10:52 Ur Specific [place] 1.025 (1.005-1.025) 08/29/17 10:52 Urine Protein 3+ (NEGATIVE) H 08/29/17 10:52 Urine Glucose (UA) Trace (NEGATIVE) 08/29/17 10:52 Urine Ketones Trace (NEGATIVE) 08/29/17 10:52 Urine Blood 3+ (NEGATIVE) H 08/29/17 10:52 Urine Nitrite Negative (NEGATIVE) 08/29/17 10:52 Urine Bilirubin Negative (NEGATIVE) 08/29/17 10:52 Urine Urobilinogen 0.2 (0.2-1.0) 08/29/17 10:52 Ur Leukocyte Esterase Trace (NEGATIVE) H 08/29/17 10:52 Urine RBC >50 /hpf (0-3) 08/29/17 10:52 Urine WBC 3-5 (0-2) 08/29/17 10:52 Ur Epithelial Cells Few /HPF 08/29/17 10:52 Urine Bacteria None seen /hpf (NEGATIVE) 08/29/17 10:52 U Random Total Protein 1044 mg/dl (5-11.9) H 08/29/17 19:11 Ur Random Sodium 45 MMOL/L (28-272) 08/29/17 19:11 Urine Creatinine 64.4 mg/dL (20-370) 08/29/17 19:11 Random Vancomycin 9.573 ug/ml 08/30/17 06:05 Valproic Acid 32.285 ug/ml (50-100) L 08/30/17 00:45 LISA M-Marlon Not observed g/dL (Not Observed) 08/29/17 20:00 GEN Screen Negative (.) 08/29/17 20:00 Complement C3 133 mg/dL (82-167) 08/31/17 11:00 Complement C4 31 mg/dL (14-44) 08/31/17 11:00 Blood Type O POSITIVE 08/29/17 16:04 Antibody Screen Negative 08/29/17 16:04 Direct Antiglob Test Negative (NEGATIVE) 08/29/17 20:00 Crossmatch See Detail 08/29/17 20:00 ecg: sr,prolonged qtc, no ischemic changes echo 08/2017: nl lv/rv, no sig valve path cxr: left eff tele: sr/st a/p: 22 m hx autism, seizures here with ams, sob, diarrhea, found to have ANNA. anna: -renal eval in progress, planned for biopsy -currently getting intermittent HD here htn: -elevated at times -now on nicard gtt. will get po procardia today as well and try to titrate off gtt. Can add lopressor next if needed for bp/hr control. -echo here unremarkable anemia: -chronic, per primary team abnl ecg: -prolonged qtc, possibly due to anna -will order repeat to monitor
[2017-09-02] MEDS: SODIUM CHLORIDE FOR INHALATION 3 ML VIAL.NEB IH SCH ×2 (12:20→17:31)
[2017-09-02] MEDS ORDERED: niCARdipine HCL 25 MG/10 ML AMPUL IVPB ONE ×2 (12:29→16:38)
[2017-09-02] MEDS: NICARDIPINE 25 MG in DEXTROSE 5%-WATER - 240 ML IVPB SCH ×2 (12:31→14:30)
[2017-09-02] MEDS ORDERED: MIDAZOLAM HCL 2 MG/2 ML SINGLE DOSE VIAL IVPUSH ONE ×2 (13:28→14:45)
--- NOTE | 2017-09-02 14:46 | EKG ---
Test Reason : Blood Pressure : / mmHG Vent. Rate : 133 BPM Atrial Rate : 133 BPM P-R Int : 132 ms QRS Dur : 116 ms QT Int : 308 ms P-R-T Axes : 041 -54 058 degrees QTc Int : 458 ms SINUS TACHYCARDIA LEFT AXIS DEVIATION INCOMPLETE RIGHT BUNDLE BRANCH BLOCK NONSPECIFIC ST ABNORMALITY ABNORMAL ECG WHEN COMPARED WITH ECG OF 29-AUG-2017 18:59, INCOMPLETE RIGHT BUNDLE BRANCH BLOCK HAS REPLACED NON-SPECIFIC INTRA-VENTRICULAR CONDUCTION DELAY Confirmed by RHEA BILLS, WAQAS ([id number]) on 09/02/2017 2:46:12 PM Referred By: Dianne WYNN Confirmed By:WAQAS WILKERSON MD
[2017-09-02] MEDS ORDERED: LIDOCAINE HCL 2% (50ML VIAL) SQ ONE (14:48)
--- NOTE | 2017-09-02 14:49 | PN ---
Progress Note (short form) - Note Progress Note: Seen in follow up. Mother at bedside - no new complaints. Started empiric Abics yesterday low grade temp. Increased O2 requirements, with progression of L atelectasis/pleural effusion. Nicardipine drip restarted. Meds reviewed. Current Medications Generic Name Dose Route Start Last Admin Trade Name Freq PRN Reason Stop Dose Admin Acetaminophen 650 mg 09/01/17 17:04 09/01/17 17:28 Tylenol - PO 650 mg Q6H PRN Administration fever Albuterol/Ipratropium 1 amp 09/01/17 18:00 09/02/17 12:17 Duoneb - NEB [address] Administration Chlorhexidine Gluconate 1 applic 08/29/17 22:00 09/01/17 23:09 Hibiclens For Decolonization - TP [address] Administration Sodium Chloride 250 mls @ 3,000 mls/hr 08/30/17 10:07 Normal Saline - IV 08/31/17 10:07 PRN PRN Hypotension during Dialysis Nicardipine HCl 25 mg/ 250 mls @ 25 mls/hr 08/30/17 14:32 09/02/17 12:31 Dextrose IVPB 7.5 mg/hr TITR LANE 75 mls/hr Protocol Administration 2.5 MG/HR Piperacillin Sod/Tazobactam 50 mls @ 100 mls/hr 09/02/17 10:00 09/02/17 09:30 Sod 2.25 gm/ Dextrose IVPB 100 mls/hr Q8H-IV LANE Administration Protocol Lacosamide 100 mg 08/30/17 22:00 09/02/17 09:30 Vimpat - PO [address] Administration Mupirocin 1 applic 08/29/17 22:00 09/02/17 09:30 Bactroban Ointment (For Decolonization) - NS 09/03/17 21:[address] Administration Nifedipine 90 mg 08/31/17 14:00 09/02/17 09:42 Procardia Xl - PO [address] Administration Sodium Chloride 3 ml 09/02/17 12:16 Normal Saline For Inhalation - IH 09/02/17 20:[address] On exam: Last Vital Signs Temp Pulse Resp BP Pulse Ox 98.6 F 132 H 22 164/104 97 09/02/17 09:30 09/02/17 12:31 09/02/17 12:02 09/02/17 12:31 09/02/17 09:00 General: Looks well, supine in bed. Extremities: No pallor, no icterus. Chest: breathing comfortably, decreased breath sounds L side, but resonant anteriorly. CVS: S1, S2, no gallop or murmur. Abdomen: Soft, distended, resonant, no organomegaly, no masses. Neuro: Alert, not interactive, non-verbal, non-focal. Skin: unremarkable CBC, BMP 09/02/17 05:50 09/02/17 05:50 Assessment. 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 Now improving, with decrease in LDH and improvement in platelets. BP better controlled, on nicardipine drip. 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 Possible sepsis with leukocytosis and low grade temp - suspect related to pleural effusion - ?empyema /hemothorax. Drop in Hb since yesterday. Thoracocentesis pending. Will follow.
[2017-09-02] MEDS ORDERED: MIDAZOLAM HCL 2 MG/2 ML SINGLE DOSE VIAL ONE (14:52)
[2017-09-02] MEDS ORDERED: LIDOCAINE HCL 1%, 10 MG/ML (20ML VIAL) ONE (14:53)
--- NOTE | 2017-09-02 15:50 | PROC ---
Procedure Note Procedure: Thoracentesis Performed due to large loculated L sided effusion, mild hypoxia Consent obtained from pts mother/HCP L chest prepped and drapped in sterile fashion 10cc of 2% lidocaine was used to for local anesthesia Using US guidance a suitable pocket was visulized Pt lightly sedated due to agitation/ams, is developmentally delayed at baseline. 2mg versed, 50mcg fentanyl An 18 ga needle was introduced into the 4-5 intercostal space, mid axillary. 30cc of dark straw colored fluid was withdrawn and needle was removed. Local pressure held. Hemostasis acheived. Cxr ordered. Pawel Roy ACNP [id number]
[2017-09-02] MEDS ORDERED: LIDOCAINE HCL 1%, 10 MG/ML (50 mL VIAL) SQ ONE (16:45)
[2017-09-02 19:20] LABS: PLEURAL FLUID APPEARANCE CLOUDY; PLEURAL FLUID COLOR PINK
[2017-09-02 19:21] LABS: PLEURAL FLUID RBC 11553 /mm3
[2017-09-02 19:22] LABS: GLUCOSE,PLEURAL FLUID 100.752
[2017-09-02 19:37] LABS: PLEURAL FLUID LYMPHOCYTES 30 %; PLEURAL FLUID MONOCYTE 15 %; PLEURAL FLUID NEUTROPHIL 50 %
[2017-09-02 20:49] LABS: URINE APPEARANCE CLEAR; URINE BILIRUBIN NEGATIVE (<2.0 mg/dL); URINE BLOOD 1+ (NEGATIVE); URINE COLOR LTYELLOW; URINE GLUCOSE (UA) 2+ (NEGATIVE); URINE KETONE NEGATIVE (NEGATIVE); URINE LEUK ESTERASE TRACE (NEGATIVE); URINE NITRITE NEGATIVE (NEGATIVE); URINE UROBILINOGEN NEGATIVE mg/dL (0.2-1.0)
[2017-09-02 20:53] LABS: ARTERIAL BLD GAS O2 SATURATION 91.4 % (90-98.9); ARTERIAL BLOOD GAS BASE EXCESS 1.4 meq/l (-2-2); ARTERIAL BLOOD GAS PCO2 33.7 mmHg (35-45); ARTERIAL BLOOD GAS PO2 59.4 mmHg (80-100); ARTERIAL BLOOD GAS pH 7.47 (7.35-7.45)
[2017-09-02 20:55] LABS: HEMATOCRIT 23.6 % (35.4-49); HEMOGLOBIN 7.9 GM/dL (11.7-16.9); MCH 28.9 pg (25.7-33.7); MCHC 33.5 g/dl (32.0-35.9); MEAN CELL VOLUME 86.1 fl (80-96); MEAN PLT VOLUME 6.9 fl (7.5-11.1); PLATELET COUNT 435 K/MM3 (134-434); RBC 2.74 M/mm3 (4.00-5.60); RDW 13.8 % (11.9-15.9); WHITE BLOOD COUNT 22.4 K/mm3 (4.0-10.0)
[2017-09-02 20:56] LABS: ALLENS TEST POSITIVE
[2017-09-02 21:04] LABS: URINE PROTEIN 3+ (NEGATIVE)
[2017-09-02] MEDS ORDERED: MIDAZOLAM HCL 5 MG/1 ML Single Dose Vial ONE (21:12)
[2017-09-02] MEDS ORDERED: MIDAZOLAM HCL 5 MG/1 ML Single Dose Vial IVPUSH ONE (21:15)
[2017-09-02] MEDS ORDERED: ROCURONIUM BROMIDE 50 MG/5 ML VIAL IVPUSH ONE (21:15)
[2017-09-02 21:19] LABS: URINE BACTERIA RARE /hpf (NONE SEEN)
[2017-09-02] MEDS: PROPOFOL 1,000,000 MCG/100 ML VIAL IVPB SCH (21:40)
--- NOTE | 2017-09-02 21:54 | PN ---
Progress Note (short form) - Note Progress Note: Anesthesiologist Intubation note: Called to ICU for intubation. Pat is 22 y old male with Autism, non verbal, seizure, CKD on dialysis, last dialysis 09/01. Admited with hypertensive emergency on 08/29. Right side pleura effusion was drained today. Chest tube placement tomorrow 09/03. Intubation is requested now due to worsening of ABG. Hypoxia , tachypnea. Pat is on Venturi mask, SpO2: 88-90, P: 125 RR: 34 BP:130/80. Sedated on Midazolam and Fentanyl and propofol. Consent obtained from parents. A/P: Intubation due to respiratory failure. PreO2. Induced with propofol 150 mg in increments of 50. EZ mask ventilation. ETT#8 inserted, eazily, no trauma. Co2 indicator + times 3. Bilateral Breathe sounds. Secured ETT at 22 cm. VSS. ABG and CXR post intubation.
[2017-09-02] MEDS: CHLORHEXIDINE GLUCONATE 4% CLEANSER FOR DECOLONIZATION TP SCH (22:27)
[2017-09-02 22:33] LABS: ARTERIAL BLD GAS O2 SATURATION 92.9 % (90-98.9); ARTERIAL BLOOD GAS PCO2 38.4 mmHg (35-45); ARTERIAL BLOOD GAS PO2 64.4 mmHg (80-100); ARTERIAL BLOOD GAS pH 7.46 (7.35-7.45)
[2017-09-02 22:43] LABS: ALLENS TEST POSITIVE
[2017-09-03] MEDS: LACOSAMIDE 50 MG TABLET PO SCH ×3 (00:28→21:35)
[2017-09-03] MEDS ORDERED: PIPERACILLIN/TAZOBACTAM 2.25 GM VIAL IVPB ONE ×3 (00:32→13:57)
[2017-09-03] MEDS ORDERED: DEXTROSE 5%-WATER - 50 ML IVPB ONE ×3 (00:33→13:58)
[2017-09-03] MEDS: PIPERACILLIN/TAZOB 2.25 GM 2.25 GM in DEXTROSE 5%-WATER - 50 ML IVPB SCH ×3 (01:00→17:26)
[2017-09-03 06:18] LABS: BASO % 0.3 % (0-2.0); EOS % 0.8 % (0-4.5); HEMATOCRIT 19.7 % (35.4-49); MCH 28.9 pg (25.7-33.7); MCHC 33.5 g/dl (32.0-35.9); MEAN CELL VOLUME 86.2 fl (80-96); MEAN PLT VOLUME 7.3 fl (7.5-11.1); MONO % 11.5 % (3.8-10.2); NEUT % 73.4 % (42.8-82.8); PLATELET COUNT 314 K/MM3 (134-434); RBC 2.29 M/mm3 (4.00-5.60); RDW 13.8 % (11.9-15.9); WHITE BLOOD COUNT 16.8 K/mm3 (4.0-10.0)
[2017-09-03] MEDS: PROPOFOL 1,000,000 MCG/100 ML VIAL IVPB SCH ×6 (06:25→21:35)
[2017-09-03 06:40] LABS: HEMOGLOBIN 6.6 GM/dL (11.7-16.9)
[2017-09-03 07:08] LABS: ALBUMIN 1.5 g/dl (3.4-5.0); ANION GAP 15 (8-16); BLOOD UREA NITROGEN 64 mg/dL (7-18); CALCIUM 7.8 mg/dL (8.5-10.1); CHLORIDE 92 mmol/L (98-107); CO2 26 mmol/L (21-32); GLUCOSE,RANDOM 79 mg/dL (74-106); MAGNESIUM 2.4 mg/dL (1.8-2.4); POTASSIUM 5.2 mmol/L (3.5-5.1); SGOT/AST 18 U/L (15-37); SGPT/ALT 10 U/L (12-78); SODIUM 133 mmol/L (136-145)
[2017-09-03 07:16] LABS: ALK PHOS 62 U/L (45-117); BILIRUBIN,TOTAL 0.2 mg/dL (0.2-1.0); TOT PROT 4.8 g/dl (6.4-8.2)
[2017-09-03 07:18] LABS: CREATININE 11.6 mg/dL (0.7-1.3)
[2017-09-03] MEDS: ALBUTEROL SO4 2.5/IPRATROPIUM 0.5 INH SOL 3 ML VIAL.NEB. NEB SCH ×4 (07:30→21:26)
--- NOTE | 2017-09-03 07:40 | PN ---
Progress Note, Physician Chief Complaint: ID Yesterday CT chest performed showed large left pleural effusion Empiric therapy Vanco dose and Zosyn adjusted Cr Cl - Current Medication List Current Medications: Active Medications Acetaminophen (Tylenol -) 650 mg PO Q6H PRN PRN Reason: fever Last Admin: 09/01/17 17:28 Dose: 650 mg Albuterol/Ipratropium (Duoneb -) [address] Last Admin: 09/02/17 17:31 Dose: 1 amp Chlorhexidine Gluconate (Hibiclens For Decolonization -) [address] Last Admin: 09/02/17 22:27 Dose: 1 applic Sodium Chloride (Normal Saline -) 250 mls @ 3,000 mls/hr IV PRN PRN PRN Reason: Hypotension during Dialysis Stop: 08/31/17 10:07 Nicardipine HCl 25 mg/ (Dextrose) 250 mls @ 25 mls/hr IVPB TITR LANE; 2.5 MG/HR PRN Reason: Protocol Last Titration: 09/02/17 22:00 Dose: 0 mg/hr, 0 mls/hr Piperacillin Sod/Tazobactam (Sod 2.25 gm/ Dextrose) 50 mls @ 100 mls/hr IVPB Q8H-IV LANE PRN Reason: Protocol Last Admin: 09/03/17 01:00 Dose: 100 mls/hr Propofol (Diprivan -) 1,000,000 mcg in 100 mls @ 2.668 mls/hr IVPB TITR LANE; 5 MCG/KG/MIN PRN Reason: Protocol Last Admin: 09/03/17 06:25 Dose: 50 mcg/kg/min, 26.68 mls/hr Lacosamide (Vimpat -) [address] Last Admin: 09/03/17 00:28 Dose: 100 mg Mupirocin (Bactroban Ointment (For Decolonization) -) [address] Stop: 09/03/17 21:59 Last Admin: 09/02/17 22:26 Dose: 1 applic - Objective Vital Signs: Vital Signs Temperature 97.6 F 09/03/17 06:00 Pulse Rate 108 H 09/03/17 06:00 Respiratory Rate 22 09/03/17 06:00 Blood Pressure 145/84 09/03/17 06:00 O2 Sat by Pulse Oximetry (%) 96 09/02/17 22:00 Constitutional: Yes: No Distress HENT: Yes: Other (Et tube) Cardiovascular: Yes: Tachycardia, S1, S2 Respiratory: Yes: WNL, Regular, CTA Bilaterally, Rhonchi Gastrointestinal: Yes: WNL, Normal Bowel Sounds, Soft. No: Palpable Mass, Splenomegaly, Tenderness, Rebound Extremities: No: Cold, Cool, Cyanosis Edema: No Labs: CBC, BMP 09/03/17 05:50 09/03/17 05:55 INR, PTT INR 0.97 (0.82-1.09) 08/31/17 05:40 Fibrinogen 579.0 mg/dL (238-498) H 08/29/17 20:00 Problem List - Problems (1) Acute renal failure Code(s): N17.9 - ACUTE KIDNEY FAILURE, UNSPECIFIED Qualifiers: Acute renal failure type: unspecified Qualified Code(s): N17.9 - Acute kidney failure, unspecified (2) Hypertensive urgency Code(s): I16.0 - HYPERTENSIVE URGENCY (3) Sepsis Code(s): A41.9 - SEPSIS, UNSPECIFIED ORGANISM Qualifiers: Sepsis type: sepsis due to unspecified organism Qualified Code(s): A41.9 - Sepsis, unspecified organism Assessment/Plan Microbiology Laboratory Tests 09/02/17 09/02/17 09/03/17 16:00 22:23 05:50 WBC 16.8 H Hct 19.7 L D Plt Count 314 D ABG pH 7.46 H ABG pO2 at Pt Temp 64.4 L Oxygen Flow Rate 70% Creatinine AST Alkaline Phosphatase Pleural Color [place] Pleural Appearance Cloudy Pleural WBC 1819 Pleural RBC 48023 Pleural Neutrophils 50 Pleural Monocytes 15 Pleural LDH 585.44 09/03/17 05:50 WBC Hct Plt Count ABG pH ABG pO2 at Pt Temp Oxygen Flow Rate Creatinine 11.6 H* D AST 18 Alkaline Phosphatase 62 Pleural Color Pleural Appearance Pleural WBC Pleural RBC Pleural Neutrophils Pleural Monocytes Pleural LDH Assessment Acute renal failure Severe hypertension better controlled Dialysis New large pleural effusion > ? parapneumonic uremia ? Microangiopathic anemia Plan Continue Zosyn Send (reorder sputum) Pleural fluid culture Chest xray today Discussed with family Pulmonary follow up [place] BILLS
[2017-09-03] MEDS ORDERED: PT OWN MED DRAWER 7, Y5N ONE (08:29)
--- NOTE | 2017-09-03 09:57 | PN ---
Physical Exam: SUBJECTIVE: Patient seen and examined Over the weekend, pt developed respiratory distress, was found to have a left- sided loculated pleural effusion, was intubated, and underwent a diagnostic tap which was consistent with an exudative effusion. This am, pt appeared comfortable on vent. Pt is non-verbal at baseline. OBJECTIVE: Vital Signs Period Temp Pulse Resp BP Sys/Mora Pulse Ox Last 24 Hr 97.6 F-99.5 F 41-136 16-38 111-172/56-106 86-96 GENERAL: young male with autism, lying in bed, non-verbal, on vent, awake and alert HEENT: PEARRLA, EOMI LUNGS: mechanical breath sounds HEART: tachycardia, regular rhythm, no murmurs ABDOMEN: soft, NT, ND EXTREMITIES: 2+ pulses, warm, well-perfused, 2+ edema in all 4 extremities NEUROLOGICAL: EOMI, PEARRLA, unresponsive to commands Laboratory Results - last 24 hr 08/29/17 09/02/17 09/02/17 20:00 16:00 18:00 WBC RBC Hgb Hct MCV MCH MCHC RDW Plt Count MPV Neutrophils % Lymphocytes % Monocytes % Eosinophils % Basophils % Puncture Site ABG pH ABG pCO2 at Pt Temp ABG pO2 at Pt Temp ABG HCO3 ABG O2 Sat (Measured) ABG O2 Content ABG Base Excess Wisam Test O2 Delivery Device Oxygen Flow Rate Vent Rate Mechanical Rate PEEP Pressure Support Vent Sodium Potassium Chloride Carbon Dioxide Anion Gap BUN Creatinine Creat Clearance w eGFR Random Glucose Calcium Phosphorus Magnesium Total Bilirubin AST ALT Alkaline Phosphatase LD Total Total Protein Albumin Urine Color Ltyellow Urine Appearance Clear Urine pH 8.0 Ur Specific Depue 1.009 Urine Protein 3+ H Urine Glucose (UA) 2+ H Urine Ketones Negative Urine Blood 1+ H Urine Nitrite Negative Urine Bilirubin Negative Urine Urobilinogen Negative Ur Leukocyte Esterase Trace Urine WBC (Auto) 4 Urine RBC (Auto) 2 Urine Bacteria Rare Fluid Other Cells Pleural Fluid Source Pleural Pleural Color [place] Pleural Appearance Cloudy Pleural WBC 1819 Pleural RBC 65764 Pleural Neutrophils 50 Pleural Lymphocytes 30 Pleural Monocytes 15 Pleural LDH 585.44 Pleural Glucose 100.752 HCV Quantitation Hcv not detected HCV RNA log copies/mL TNP 09/02/17 09/02/17 09/02/17 20:45 20:45 22:23 WBC 22.4 H RBC 2.74 L Hgb 7.9 L Hct 23.6 L MCV 86.1 MCH 28.9 MCHC 33.5 RDW 13.8 Plt Count 435 H D MPV 6.9 L Neutrophils % Lymphocytes % Monocytes % Eosinophils % Basophils % Puncture Site Left radial Right radial ABG pH 7.47 H 7.46 H ABG pCO2 at Pt Temp 33.7 L 38.4 ABG pO2 at Pt Temp 59.4 L 64.4 L ABG HCO3 24.4 26.6 H ABG O2 Sat (Measured) 91.4 92.9 ABG O2 Content 10.5 L 8.8 L* ABG Base Excess 1.4 3.0 H Wisam Test Positive Positive O2 Delivery Device Face tent Vent Oxygen Flow Rate 70% 70% Vent Rate 16 Mechanical Rate Yes PEEP 5.0 Pressure Support Vent 400 Sodium Potassium Chloride Carbon Dioxide Anion Gap BUN Creatinine Creat Clearance w eGFR Random Glucose Calcium Phosphorus Magnesium Total Bilirubin AST ALT Alkaline Phosphatase LD Total Total Protein Albumin Urine Color Urine Appearance Urine pH Ur Specific Depue Urine Protein Urine Glucose (UA) Urine Ketones Urine Blood Urine Nitrite Urine Bilirubin Urine Urobilinogen Ur Leukocyte Esterase Urine WBC (Auto) Urine RBC (Auto) Urine Bacteria Fluid Other Cells Pleural Fluid Source Pleural Color Pleural Appearance Pleural WBC Pleural RBC Pleural Neutrophils Pleural Lymphocytes Pleural Monocytes Pleural LDH Pleural Glucose HCV Quantitation HCV RNA log copies/mL 09/03/17 09/03/17 09/03/17 05:50 05:50 05:50 WBC 16.8 H RBC 2.29 L Hgb 6.6 L* D Hct 19.7 L D MCV 86.2 MCH 28.9 MCHC 33.5 RDW 13.8 Plt Count 314 D MPV 7.3 L Neutrophils % 73.4 Lymphocytes % 14.0 Monocytes % 11.5 H Eosinophils % 0.8 D Basophils % 0.3 Puncture Site ABG pH ABG pCO2 at Pt Temp ABG pO2 at Pt Temp ABG HCO3 ABG O2 Sat (Measured) ABG O2 Content ABG Base Excess Wisam Test O2 Delivery Device Oxygen Flow Rate Vent Rate Mechanical Rate PEEP Pressure Support Vent Sodium 133 L Potassium 5.2 H Chloride 92 L Carbon Dioxide 26 Anion Gap 15 BUN 64 H D Creatinine 11.6 H* D Creat Clearance w eGFR 5.47 Random Glucose 79 Calcium 7.8 L Phosphorus Magnesium 2.4 Total Bilirubin 0.2 D AST 18 ALT 10 L D Alkaline Phosphatase 62 LD Total Cancelled Total Protein 4.8 L Albumin 1.5 L Urine Color Urine Appearance Urine pH Ur Specific Depue Urine Protein Urine Glucose (UA) Urine Ketones Urine Blood Urine Nitrite Urine Bilirubin Urine Urobilinogen Ur Leukocyte Esterase Urine WBC (Auto) Urine RBC (Auto) Urine Bacteria Fluid Other Cells Pleural Fluid Source Pleural Color Pleural Appearance Pleural WBC Pleural RBC Pleural Neutrophils Pleural Lymphocytes Pleural Monocytes Pleural LDH Pleural Glucose HCV Quantitation HCV RNA log copies/mL 09/03/17 05:55 WBC RBC Hgb Hct MCV MCH MCHC RDW Plt Count MPV Neutrophils % Lymphocytes % Monocytes % Eosinophils % Basophils % Puncture Site ABG pH ABG pCO2 at Pt Temp ABG pO2 at Pt Temp ABG HCO3 ABG O2 Sat (Measured) ABG O2 Content ABG Base Excess Wisam Test O2 Delivery Device Oxygen Flow Rate Vent Rate Mechanical Rate PEEP Pressure Support Vent Sodium Cancelled Potassium Cancelled Chloride Cancelled Carbon Dioxide Cancelled Anion Gap Cancelled BUN Cancelled Creatinine Cancelled Creat Clearance w eGFR Random Glucose Cancelled Calcium Cancelled Phosphorus 8.6 H D Magnesium Cancelled Total Bilirubin AST ALT Alkaline Phosphatase LD Total Total Protein Albumin Urine Color Urine Appearance Urine pH Ur Specific Depue Urine Protein Urine Glucose (UA) Urine Ketones Urine Blood Urine Nitrite Urine Bilirubin Urine Urobilinogen Ur Leukocyte Esterase Urine WBC (Auto) Urine RBC (Auto) Urine Bacteria Fluid Other Cells Pleural Fluid Source Pleural Color Pleural Appearance Pleural WBC Pleural RBC Pleural Neutrophils Pleural Lymphocytes Pleural Monocytes Pleural LDH Pleural Glucose HCV Quantitation HCV RNA log copies/mL Active Medications Generic Name Dose Route Start Last Admin Trade Name Freq PRN Reason Stop Dose Admin Acetaminophen 650 mg 09/01/17 17:04 09/01/17 17:28 Tylenol - PO 650 mg Q6H PRN Administration fever Albuterol/Ipratropium 1 amp 09/03/17 08:19 Duoneb - NEB RQID LANE Chlorhexidine Gluconate 1 applic 08/29/17 22:00 09/02/17 22:27 Hibiclens For Decolonization - TP [address] Administration Sodium Chloride 250 mls @ 3,000 mls/hr 08/30/17 10:07 Normal Saline - IV 08/31/17 10:07 PRN PRN Hypotension during Dialysis Nicardipine HCl 25 mg/ 250 mls @ 25 mls/hr 08/30/17 14:32 09/02/17 22:00 Dextrose IVPB 0 mg/hr TITR LANE 0 mls/hr Protocol Titration 2.5 MG/HR Piperacillin Sod/Tazobactam 50 mls @ 100 mls/hr 09/02/17 10:00 09/03/17 01:00 Sod 2.25 gm/ Dextrose IVPB 100 mls/hr Q8H-IV LANE Administration Protocol Propofol 1,000,000 mcg in 100 mls @ 2.668 mls/hr 09/02/17 21:15 09/03/17 08: 39 Diprivan - IVPB 50 mcg/kg/min TITR LANE 26.68 mls/hr Protocol Administration 5 MCG/KG/MIN Lacosamide 100 mg 08/30/17 22:00 09/03/17 00:28 Vimpat - PO [address] Administration Mupirocin 1 applic 08/29/17 22:00 09/02/17 22:26 Bactroban Ointment (For Decolonization) - NS 09/03/17 21:[address] Administration ASSESSMENT/PLAN: 22M w/ hx of autism and seizure disorder who presented with severe HTN, anemia, thrombocytopenia, leukocytosis, hyperkalemia, and ANNA, admitted to ICU. Pt is s/ p PRBCs, platelets, FFP, dialysis, s/p intubation on 09/02, and s/p diagnostic tap of loculated pleural effusion on 09/02. CV #hypertensive urgency/emergency- unclear etiology, improving -weaned off of nicardipine gtt, switched to PRN IV labetalol. Cards recs appeciated to switch pt to po procardia, but nurse stated that the capsule can' t be crushed and administered down NG tube. -monitor MAPs -nephrology on board, recs appreciated. -anne placed #troponinemia- likely 2/2 renal failure and demand ischemia from HTN -peaked, no longer trending Hematology #anemia and thrombocytopenia -hematology on board, recs appreciated. HUS/TTP low on differential. Pt is s/p 2 units of PRBCs and FFP on admission -Hgb this am of 6.6 s/p diagnostic tap of pleural effusion. 1 unit of PRBCs given during dialysis. f/u repeat Hgb. -platelets wnl ID #sepsis- leukocytosis improving, tachycardia -ID on board, Dr. Moise, recs appreciated. zosyn and vanc -f/u sputum cx -f/u pleural cultures and studies Nephro #hyperkalemia and ANNA -nephrology on board, recs appreciated. HD scheduled for today. Renal bx to be done once pt is more stable. -hyperkalemia of 5.2 today Neuro #seizure disorder -neuro on board, f/u recs. home depakote held given risk of thrombocytopenia. continue lacosamide for seizure ppx. Resp #acute hypoxic resp failure -pt s/p intubation on 09/02. maxed out on propofol and pt still trying to pull out vent, added fentanyl -CXR and CT chest: loculated pleural effusion on left side -Dr. Ivy consulted, recs appreciated. Pt to get IR guided chest tube. -f/u pleural fluid studies GI #diarrhea- resolved FEN/ppx -po fluids -hyperkalemia and hyperphosphatemia -nepro tube feeds per RD -protonix -SCDs due to low Hgb Case discussed with attending, Dr. Monk. -Rashel Iniguez MD PGY1 ICU Team Visit type - Emergency Visit Emergency Visit: Yes ED Registration Date: 08/29/17 Care time: The patient presented to the Emergency Department on the above date and was hospitalized for further evaluation of their emergent condition. - New Patient This patient is new to me today: No - Critical Care Critical Care patient: Yes Total Critical Care Time (in minutes): 38 Critical Care Statement: The care of this patient involved high complexity decision making to prevent further life threatening deterioration of the patient 's condition and/or to evaluate & treat vital organ system(s) failure or risk of failure.
[2017-09-03 10:08] LABS: ANTIGLOMERULAR BASEMENT MEN.AB 3 units (0-20)
[2017-09-03] MEDS: MUPIROCIN 2% TOPICAL OINTMENT FOR DECOLONIZATION NS SCH (10:33)
[2017-09-03] MEDS ORDERED: fentaNYL CITRATE 250 MCG/5 ML VIAL ONE ×3 (11:03→21:27)
[2017-09-03 11:05] LABS: LDH 357 U/L (87-241)
[2017-09-03] MEDS: FENTANYL INJECTION 500 MCG in DEXTROSE 5%-WATER - 90 ML IVPB SCH ×4 (12:00→22:12)
[2017-09-03] MEDS ORDERED: FENTANYL INJECTION 500 MCG in DEXTROSE 5%-WATER - 90 ML IVPB SCH ×2 (12:30→13:21)
[2017-09-03] MEDS ORDERED: SODIUM CHLORIDE 250 ML IV PRN (13:13)
--- NOTE | 2017-09-03 13:13 | PN ---
Progress Note, Physician History of Present Illness: Pt seen and examined at bedside. He remains in the ICU. He is now intubated. He was last dialyzed on Sunday. - Current Medication List Current Medications: Active Medications Acetaminophen (Tylenol -) 650 mg PO Q6H PRN PRN Reason: fever Last Admin: 09/01/17 17:28 Dose: 650 mg Albuterol/Ipratropium (Duoneb -) [address] Last Admin: 09/03/17 11:29 Dose: 1 amp Chlorhexidine Gluconate (Hibiclens For Decolonization -) [address] Last Admin: 09/02/17 22:27 Dose: 1 applic Sodium Chloride (Normal Saline -) 250 mls @ 3,000 mls/hr IV PRN PRN PRN Reason: Hypotension during Dialysis Stop: 08/31/17 10:07 Nicardipine HCl 25 mg/ (Dextrose) 250 mls @ 25 mls/hr IVPB TITR LANE; 2.5 MG/HR PRN Reason: Protocol Last Titration: 09/02/17 22:00 Dose: 0 mg/hr, 0 mls/hr Piperacillin Sod/Tazobactam (Sod 2.25 gm/ Dextrose) 50 mls @ 100 mls/hr IVPB Q8H-IV LANE PRN Reason: Protocol Last Admin: 09/03/17 10:36 Dose: 100 mls/hr Propofol (Diprivan -) 1,000,000 mcg in 100 mls @ 2.668 mls/hr IVPB TITR LANE; 5 MCG/KG/MIN PRN Reason: Protocol Last Admin: 09/03/17 12:00 Dose: 50 mcg/kg/min, 26.68 mls/hr Fentanyl 500 mcg/ Dextrose 100 mls @ 1 mls/hr IVPB TITR LANE PRN Reason: 5 MCG/HR Last Admin: 09/03/17 12:00 Dose: 10 mls/hr Lacosamide (Vimpat -) [address] Last Admin: 09/03/17 10:34 Dose: 100 mg Mupirocin (Bactroban Ointment (For Decolonization) -) [address] Stop: 09/03/17 21:59 Last Admin: 09/03/17 10:33 Dose: 1 applic Pantoprazole Sodium (Protonix Iv) [address] - Objective Vital Signs: Vital Signs Temperature 98.5 F 09/03/17 13:00 Pulse Rate 107 H 09/03/17 13:00 Respiratory Rate 18 09/03/17 13:00 Blood Pressure 174/95 09/03/17 13:00 O2 Sat by Pulse Oximetry (%) 93 L 09/03/17 11:28 Constitutional: Yes: Calm Eyes: Yes: Conjunctiva Clear HENT: Yes: Atraumatic Cardiovascular: Yes: Tachycardia, S1, S2 Respiratory: Yes: Mechanically Ventilated Gastrointestinal: Yes: Soft Genitourinary: Yes: Ruiz Present Musculoskeletal: Yes: Muscle Weakness Edema: Yes Edema: LUE: Trace, RUE: Trace, LLE: Trace, RLE: Trace Integumentary: Yes: WNL Neurological: Yes: Lethargy Labs: CBC, BMP 09/03/17 05:50 09/03/17 05:55 INR, PTT INR 0.97 (0.82-1.09) 08/31/17 05:40 Fibrinogen 579.0 mg/dL (238-498) H 08/29/17 20:00 - ....Imaging Chest X-ray: Report Reviewed Problem List - Problems (1) Acute renal failure Code(s): N17.9 - ACUTE KIDNEY FAILURE, UNSPECIFIED Qualifiers: Acute renal failure type: unspecified Qualified Code(s): N17.9 - Acute kidney failure, unspecified (2) Anemia Code(s): D64.9 - ANEMIA, UNSPECIFIED (3) Hyperkalemia Code(s): E87.5 - HYPERKALEMIA (4) Hypertensive urgency Code(s): I16.0 - HYPERTENSIVE URGENCY (5) Sepsis Code(s): A41.9 - SEPSIS, UNSPECIFIED ORGANISM Qualifiers: Sepsis type: sepsis due to unspecified organism Qualified Code(s): A41.9 - Sepsis, unspecified organism (6) Thrombocytopenia Code(s): D69.6 - THROMBOCYTOPENIA, UNSPECIFIED (7) Seizure Code(s): R56.9 - UNSPECIFIED CONVULSIONS Assessment/Plan Current Medications Generic Name Dose Route Start Last Admin Trade Name Freq PRN Reason Stop Dose Admin Acetaminophen 650 mg 09/01/17 17:04 09/01/17 17:28 Tylenol - PO 650 mg Q6H PRN Administration fever Albuterol/Ipratropium 1 amp 09/03/17 08:19 09/03/17 11:29 Duoneb - NEB [address] Administration Chlorhexidine Gluconate 1 applic 08/29/17 22:00 09/02/17 22:27 Hibiclens For Decolonization - TP [address] Administration Sodium Chloride 250 mls @ 3,000 mls/hr 08/30/17 10:07 Normal Saline - IV 08/31/17 10:07 PRN PRN Hypotension during Dialysis Nicardipine HCl 25 mg/ 250 mls @ 25 mls/hr 08/30/17 14:32 09/02/17 22:00 Dextrose IVPB 0 mg/hr TITR LANE 0 mls/hr Protocol Titration 2.5 MG/HR Piperacillin Sod/Tazobactam 50 mls @ 100 mls/hr 09/02/17 10:00 09/03/17 10:36 Sod 2.25 gm/ Dextrose IVPB 100 mls/hr Q8H-IV LANE Administration Protocol Propofol 1,000,000 mcg in 100 mls @ 2.668 mls/hr 09/02/17 21:15 09/03/17 12: 00 Diprivan - IVPB 50 mcg/kg/min TITR LANE 26.68 mls/hr Protocol Administration 5 MCG/KG/MIN Fentanyl 500 mcg/ Dextrose 100 mls @ 1 mls/hr 09/03/17 12:30 09/03/17 12:00 IVPB 10 mls/hr TITR LAEN Administration 5 MCG/HR Lacosamide 100 mg 08/30/17 22:00 09/03/17 10:34 Vimpat - PO [address] Administration Mupirocin 1 applic 08/29/17 22:00 09/03/17 10:33 Bactroban Ointment (For Decolonization) - NS 09/03/17 21:[address] Administration Pantoprazole Sodium 40 mg 09/03/17 13:00 Protonix Iv IVPUSH DAILY LANE Laboratory Tests 08/29/17 08/31/17 09/02/17 20:00 11:00 05:50 LISA M-Marlon Not observed GEN Screen Negative c-ANCA Pending Proteinase 3 (PR3) Pending p-ANCA Pending Atypical p-ANCA Pending Myeloperoxidase Ab Pending Double Strand DNA Ab Pending Glomerular Base Memb Ab 3 Complement C3 133 Complement C4 31 Hep Bs Antigen Pending Hep Bs Antibody Pending Hep B Core Total Ab Pending HCV Quantitation Hcv not detected HCV RNA log copies/mL TNP Anti-DNase B (Strep) Pending Impression 1. ANNA 2. HTN urgency/emergency 3. hyperkalemia 4. hyponatremia 5. autism 6. hx of seizure 7. anemia 8. CKD 9. lactic acidosis improving 10. thrombocytopenia 11. hyperkalemia 12. pleural effusion 13. acute resp failure requiring intubation Plan - will arrange for HD at bedside today - renal workup in progress - vent support - cts eval for pleural effusion - discussed with ICU team - can transfuse on HD - will need better bp control - kidney biopsy once more stable - monitor LDH level - monitor platelets - keep in ICU - will follow closely Dr Velasquez
--- NOTE | 2017-09-03 14:01 | PN ---
Progress Note (short form) - Note Progress Note: patient now intubated. vein map and permacath on hold. please call when status improved. d/w Dr. Velasquez
[2017-09-03] MEDS: PANTOPRAZOLE SODIUM 40 MG VIAL IVPUSH SCH (14:04)
--- NOTE | 2017-09-03 14:27 | PN ---
Teaching Attending Note Name of Resident: Rashel Iniguez ATTENDING PHYSICIAN STATEMENT I saw and evaluated the patient. I reviewed the resident's note and discussed the case with the resident. I agree with the resident's findings and plan as documented. SUBJECTIVE: Pt seen and examined in the ICU. Remains intubated, awake on propofol gtt. Urine output not recorded. No fevers recorded. OBJECTIVE: Last Vital Signs Temp Pulse Resp BP Pulse Ox 98.5 F 107 H 22 174/95 100 09/03/17 13:00 09/03/17 13:00 09/03/17 13:35 09/03/17 13:00 09/03/17 13:50 Intake & Output 08/31/17 09/01/17 09/02/17 09/03/17 23:59 23:59 23:59 23:59 Intake Total 2355 1124 1310 538 Output Total 350 155 95 10 Balance 2004 969 1215 528 Weight 87.634 kg 88.932 kg 92.306 kg Gen: intubated, awake Heart: tachycardic, regular Lung: left sided rhonchi Abd: soft, nontender Ext: + edema CBC, BMP 09/03/17 05:50 09/03/17 05:55 Active Medications Acetaminophen (Tylenol -) 650 mg PO Q6H PRN PRN Reason: fever Last Admin: 09/01/17 17:28 Dose: 650 mg Albuterol/Ipratropium (Duoneb -) [address] Last Admin: 09/03/17 11:29 Dose: 1 amp Chlorhexidine Gluconate (Hibiclens For Decolonization -) [address] Last Admin: 09/02/17 22:27 Dose: 1 applic Nicardipine HCl 25 mg/ (Dextrose) 250 mls @ 25 mls/hr IVPB TITR LANE; 2.5 MG/HR PRN Reason: Protocol Last Titration: 09/02/17 22:00 Dose: 0 mg/hr, 0 mls/hr Piperacillin Sod/Tazobactam (Sod 2.25 gm/ Dextrose) 50 mls @ 100 mls/hr IVPB Q8H-IV LANE PRN Reason: Protocol Last Admin: 09/03/17 10:36 Dose: 100 mls/hr Propofol (Diprivan -) 1,000,000 mcg in 100 mls @ 2.668 mls/hr IVPB TITR LANE; 5 MCG/KG/MIN PRN Reason: Protocol Last Admin: 09/03/17 12:00 Dose: 50 mcg/kg/min, 26.68 mls/hr Sodium Chloride (Normal Saline -) 250 mls @ 3,000 mls/hr IV PRN PRN PRN Reason: Hypotension during Dialysis Stop: 09/04/17 13:13 Fentanyl 500 mcg/ Dextrose 100 mls @ 10 mls/hr IVPB TITR LANE; 50 MCG/HR PRN Reason: Protocol Lacosamide (Vimpat -) 100 mg PO BID [facility] Last Admin: 09/03/17 10:34 Dose: 100 mg Mupirocin (Bactroban Ointment (For Decolonization) -) 1 applic NS BID [facility] Stop: 09/03/17 21:59 Last Admin: 09/03/17 10:33 Dose: 1 applic Pantoprazole Sodium (Protonix Iv) 40 mg IVPUSH DAILY [facility] Last Admin: 09/03/17 14:04 Dose: 40 mg ASSESSMENT AND PLAN: Hypertensive Urgency Acute Kidney Injury requiring HD Acute Hypoxic Respiratory Failure Pneumonia Loculated Pleural Effusion Hyponatremia Severe Sepsis Lactic Acidosis Thrombocytopenia improved Anemia Autism - continue antibiotics - f/u cultures, send sputum - HD per renal with ultrafiltration - transfuse PRBC with HD - performed bedside ultrasound, many septations and loculated areas, will get thoracic surgery to evaluate - monitor urine output, creatinine - BP control - taper Fio2 to keep Spo2 >90% - not a candidate for weaning at this time due to high oxygen requirements - enteral feeds - DVT/GI prophylaxis - continue ICU monitoring critical care time spent in reviewing chart, evaluating patient and formulating plan 40 min
[2017-09-03] MEDS ORDERED: NIFEdipine 10 MG CAPSULE (FP) PO SCH (14:45)
[2017-09-03] MEDS: NICARDIPINE 25 MG in DEXTROSE 5%-WATER - 240 ML IVPB SCH (15:07)
[2017-09-03] MEDS: METOPROLOL TARTRATE 5 MG/5 ML VIAL IVPUSH PRN (15:22)
--- NOTE | 2017-09-03 15:22 | CONSULT ---
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 The patient is non-verbal at baseline. PMHX: Autism, non-verbal, seizure disorder, hernia repair as infant hypertensive crisis (unclear etiology) with renal failure, initiated on HD. Per md note, pt will need permanent dialysis access per pt's mother and father who report pt with very good po intake lpta. Pt can be a fast eater, needs assistance. No difficulties chewing/swallowing noted. Pt's father states po intake was decreased on Sunday due to illness but intake is usually very good. Chart reviewed at length. Pt is intubated. Evaluation deferred. - Past Medical History [employer]: Yes: Other (autism) Cardiovascular: Yes: HTN Renal/: Yes: Renal Inusuff - Past Surgical History Past Surgical History: Yes: Hernia Repair - Smoking History Smoking history: Never smoked Have you smoked in the past 12 months: No Aproximately how many cigarettes per day: 0 - Alcohol/Substance Use Hx Alcohol Use: No History - Admission Reason For Visit: ACUTE RENAL FAILURE,PNEUMONIA,SEPSIS - Hearing Hearing: Normal Hearing Aide: No With Patient: No Speech Evaluation - Communication Primary Language: CROATIAN
--- NOTE | 2017-09-03 16:14 | PN ---
Progress Note (short form) - Note Progress Note: cc: sob, diarrhea S: Yesterday cardene drip weaned off and started on po nicardipine which has since been stopped b/c patient now intubated and it can not be given via NGT. Was intubated overnight for respiratory distress. Also s/p diagnostic thora yesterday. Repeat ekg yesterday showed normalization of qtc. still with minimal uop Worsened anemia today (hgb now 6.6). Current Medications Acetaminophen (Tylenol -) 650 mg PO Q6H PRN PRN Reason: fever Last Admin: 09/01/17 17:28 Dose: 650 mg Albuterol/Ipratropium (Duoneb -) [address] Last Admin: 09/03/17 11:29 Dose: 1 amp Chlorhexidine Gluconate (Hibiclens For Decolonization -) [address] Last Admin: 09/02/17 22:27 Dose: 1 applic Piperacillin Sod/Tazobactam (Sod 2.25 gm/ Dextrose) 50 mls @ 100 mls/hr IVPB Q8H-IV LANE PRN Reason: Protocol Last Admin: 09/03/17 10:36 Dose: 100 mls/hr Propofol (Diprivan -) 1,000,000 mcg in 100 mls @ 2.668 mls/hr IVPB TITR LANE; 5 MCG/KG/MIN PRN Reason: Protocol Last Admin: 09/03/17 15:21 Dose: 50 mcg/kg/min, 26.68 mls/hr Sodium Chloride (Normal Saline -) 250 mls @ 3,000 mls/hr IV PRN PRN PRN Reason: Hypotension during Dialysis Stop: 09/04/17 13:13 Fentanyl 500 mcg/ Dextrose 100 mls @ 10 mls/hr IVPB TITR LANE; 50 MCG/HR PRN Reason: Protocol Last Admin: 09/03/17 15:22 Dose: 150 mcg/hr, 30 mls/hr Lacosamide (Vimpat -) [address] Last Admin: 09/03/17 10:34 Dose: 100 mg Metoprolol Tartrate (Lopressor Injection -) 5 mg IVPUSH Q4H PRN PRN Reason: HYPERTENSION Last Admin: 09/03/17 15:22 Dose: 5 mg Mupirocin (Bactroban Ointment (For Decolonization) -) 1 applic NS BID [facility] Stop: 09/03/17 21:59 Last Admin: 09/03/17 10:33 Dose: 1 applic Pantoprazole Sodium (Protonix Iv) 40 mg IVPUSH DAILY [facility] Last Admin: 09/03/17 14:04 Dose: 40 mg pe: Vital Signs - 24 hr 09/02/17 09/02/17 09/02/17 16:00 17:00 18:00 Temperature 99.0 F Pulse Rate 123 H 126 H 134 H Respiratory 28 H 33 H Rate Blood Pressure 167/91 164/88 151/99 O2 Sat by Pulse Oximetry (%) 09/02/17 09/02/17 09/02/17 19:00 20:00 20:53 Temperature Pulse Rate 129 H 129 H Respiratory 32 H 38 H Rate Blood Pressure 147/80 168/103 O2 Sat by Pulse 86 L Oximetry (%) 09/02/17 09/02/17 09/02/17 21:00 21:30 21:39 Temperature Pulse Rate 136 H 118 H Respiratory 37 H 26 H 16 Rate Blood Pressure 164/94 138/56 O2 Sat by Pulse Oximetry (%) 09/02/17 09/02/17 09/02/17 22:00 22:30 23:00 Temperature 99 F Pulse Rate 112 H 111 H 113 H Respiratory 27 H 21 23 Rate Blood Pressure 113/78 111/92 133/79 O2 Sat by Pulse 96 Oximetry (%) 09/02/17 09/03/17 09/03/17 23:35 00:00 01:00 Temperature Pulse Rate 112 H 110 H Respiratory 23 22 22 Rate Blood Pressure 148/85 136/75 O2 Sat by Pulse Oximetry (%) 09/03/17 09/03/17 09/03/17 02:00 02:27 03:00 Temperature 98.3 F Pulse Rate 106 H 103 H Respiratory 22 25 H 22 Rate Blood Pressure 139/67 144/85 O2 Sat by Pulse Oximetry (%) 09/03/17 09/03/17 09/03/17 04:00 05:00 05:34 Temperature Pulse Rate 106 H 103 H Respiratory 24 23 18 Rate Blood Pressure 148/87 145/85 O2 Sat by Pulse Oximetry (%) 09/03/17 09/03/17 09/03/17 06:00 08:00 08:22 Temperature 97.6 F Pulse Rate 108 H 110 H 107 H Respiratory 22 28 H 23 Rate Blood Pressure 145/84 169/91 O2 Sat by Pulse 93 L 96 Oximetry (%) 09/03/17 09/03/17 09/03/17 09:00 10:00 11:27 Temperature 98.4 F Pulse Rate 110 H Respiratory 32 H 20 Rate Blood Pressure 178/96 O2 Sat by Pulse 93 L Oximetry (%) 09/03/17 09/03/17 09/03/17 11:28 12:00 13:00 Temperature 98.5 F Pulse Rate 108 H 107 H Respiratory 23 28 H 18 Rate Blood Pressure 117/93 174/95 O2 Sat by Pulse 93 L Oximetry (%) 09/03/17 09/03/17 09/03/17 13:35 13:50 14:00 Temperature Pulse Rate 114 H Respiratory 22 16 Rate Blood Pressure 195/102 O2 Sat by Pulse 100 Oximetry (%) 09/03/17 09/03/17 09/03/17 14:50 14:55 15:00 Temperature Pulse Rate 115 H 120 H 119 H Respiratory 23 24 26 H Rate Blood Pressure 178/110 198/116 195/109 O2 Sat by Pulse Oximetry (%) 09/03/17 09/03/17 15:22 15:47 Temperature 98.4 F Pulse Rate 120 H 102 H Respiratory 12 Rate Blood Pressure 195/109 165/98 O2 Sat by Pulse 95 Oximetry (%) Intake & Output 09/01/17 09/02/17 09/03/17 09/04/17 07:59 07:59 07:59 07:59 Intake Total 1605 1244 1488 Output Total 250 105 95 10 Balance 1355 1139 1393 -10 Weight 196 lb 1 oz 203 lb 8 oz nad no jvd intubated, sedated rrr s1 s2 no mrg dec bs left, poor eff no jaundice diaphoresis pos dp pt trace le edema bl abd nd pos bs CBC, BMP 09/03/17 05:50 Laboratory Tests 08/29/17 08/29/17 08/29/17 10:52 12:37 12:37 Hgb Band Neutrophils % 5.0 INR ABG pH ABG pCO2 at Pt Temp ABG pO2 at Pt Temp O2 Delivery Device Sodium Potassium Chloride Carbon Dioxide BUN Creatinine Magnesium Total Bilirubin AST ALT Alkaline Phosphatase LD Total Creatine Kinase 373 H CK-MB (CK-2) 9.4 H Troponin I 0.10 H Albumin Free T4 Urine Protein 08/29/17 08/30/17 08/30/17 18:00 00:45 06:05 Hgb Band Neutrophils % INR ABG pH ABG pCO2 at Pt Temp ABG pO2 at Pt Temp O2 Delivery Device Sodium Potassium Chloride Carbon Dioxide BUN Creatinine Magnesium Total Bilirubin AST ALT Alkaline Phosphatase LD Total Creatine Kinase CK-MB (CK-2) Troponin I 0.15 H 0.17 H 0.25 H D Albumin Free T4 Urine Protein 08/30/17 08/30/17 08/31/17 06:05 15:35 05:40 Hgb Band Neutrophils % INR 0.97 ABG pH ABG pCO2 at Pt Temp ABG pO2 at Pt Temp O2 Delivery Device Sodium Potassium Chloride Carbon Dioxide BUN Creatinine Magnesium Total Bilirubin AST ALT Alkaline Phosphatase LD Total Creatine Kinase CK-MB (CK-2) Troponin I 0.31 H Albumin Free T4 0.73 L Urine Protein 08/31/17 09/02/17 09/02/17 05:40 05:50 05:50 Hgb 7.8 L Band Neutrophils % INR ABG pH ABG pCO2 at Pt Temp ABG pO2 at Pt Temp O2 Delivery Device Sodium 135 L Potassium Chloride Carbon Dioxide BUN Creatinine Magnesium Total Bilirubin AST ALT Alkaline Phosphatase LD Total Creatine Kinase CK-MB (CK-2) Troponin I 0.25 H Albumin Free T4 Urine Protein 09/02/17 09/02/17 09/03/17 18:00 22:23 05:50 Hgb Band Neutrophils % INR ABG pH 7.46 H ABG pCO2 at Pt Temp 38.4 ABG pO2 at Pt Temp 64.4 L O2 Delivery Device Vent Sodium 133 L Potassium 5.2 H Chloride 92 L Carbon Dioxide 26 BUN 64 H D Creatinine 11.6 H* D Magnesium 2.4 Total Bilirubin 0.2 D AST 18 ALT 10 L D Alkaline Phosphatase 62 LD Total 357 H D Creatine Kinase CK-MB (CK-2) Troponin I Albumin 1.5 L Free T4 Urine Protein 3+ H ecg: sr,prolonged qtc, no ischemic changes echo 08/2017: nl lv/rv, no sig valve path cxr: left eff tele: sr/st a/p: 22 m hx autism, seizures, possible underlying ckd/htn here with ams, respiratory failure/sepsis, anna requiring HD and hypertensive urgency. Cardiac course complicated by mild troponin elevation and prolonged qtc. anna requiring HD: -renal eval in progress, planned for biopsy -currently getting intermittent HD here htn urgency/emergency: -elevated at times -09/02 now on nicard gtt. will get po procardia today as well and try to titrate off gtt. Can add lopressor next if needed for bp/hr control. -09/03: no IV access for cardene drip. needs po meds through NG tube --> started norvasc 10, hydral 20 tid. -echo here unremarkable abnl ecg: -prolonged qtc, possibly due to anna -will order repeat to monitor abnormal troponins - likely increased in setting of ANNA. anemia: -chronic, per primary team respiratory failure s/p intubation 09/02 - with white out of left lung
--- NOTE | 2017-09-03 16:53 | PN ---
Progress Note (short form) - Note Progress Note: Thoracic Surgery: Full consult to follow. Please arrange CT guided drainage by IR with placement of chest tube by IR. Will f/u thoracentesis results.
[2017-09-03] MEDS ORDERED: NICARDIPINE 25 MG in DEXTROSE 5%-WATER - 240 ML IVPB SCH (17:00)
[2017-09-03] MEDS ORDERED: MIDAZOLAM HCL 5 MG/1 ML Single Dose Vial IVPUSH ONE (17:20)
[2017-09-03] MEDS: AMINO ACIDS/PROTEIN HYDROLYS 30 ML LIQUID.PKT NGT SCH (18:09)
--- NOTE | 2017-09-03 19:02 | PN ---
Physical Exam: SUBJECTIVE: Patient seen and examined OBJECTIVE: intubated overnight for respiratory distress for dialysis today Period Temp Pulse Resp BP Sys/Mora Pulse Ox Last 24 Hr 97.6 F-99 F 41-136 12-38 111-198/56-118 86-100 GENERAL: sedated, intubated HEAD: Normal with no signs of trauma. EYES: PERRL, extraocular movements intact, sclera anicteric, conjunctiva clear. No ptosis. LUNGS: anterior lung sounds diminished, mostly clear. on room air HEART: sinus tachy on equipment monitor phototypesetting BP elevated ABDOMEN: Soft, nontender, nondistended EXTREMITIES: bilateral upper arms non pitting edema Laboratory Results - last 24 hr 08/29/17 09/02/17 09/02/17 20:00 16:00 18:00 WBC RBC Hgb Hct MCV MCH MCHC RDW Plt Count MPV Neutrophils % Lymphocytes % Monocytes % Eosinophils % Basophils % Puncture Site ABG pH ABG pCO2 at Pt Temp ABG pO2 at Pt Temp ABG HCO3 ABG O2 Sat (Measured) ABG O2 Content ABG Base Excess Wisam Test O2 Delivery Device Oxygen Flow Rate Vent Rate Mechanical Rate PEEP Pressure Support Vent Sodium Potassium Chloride Carbon Dioxide Anion Gap BUN Creatinine Creat Clearance w eGFR Random Glucose Calcium Phosphorus Magnesium Total Bilirubin AST ALT Alkaline Phosphatase LD Total Total Protein Albumin Urine Color Ltyellow Urine Appearance Clear Urine pH 8.0 Ur Specific [place] 1.009 Urine Protein 3+ H Urine Glucose (UA) 2+ H Urine Ketones Negative Urine Blood 1+ H Urine Nitrite Negative Urine Bilirubin Negative Urine Urobilinogen Negative Ur Leukocyte Esterase Trace Urine WBC (Auto) 4 Urine RBC (Auto) 2 Urine Bacteria Rare Fluid Other Cells Pleural Fluid Source Pleural Pleural Color [place] Pleural Appearance Cloudy Pleural WBC 1819 Pleural RBC 79675 Pleural Neutrophils 50 Pleural Lymphocytes 30 Pleural Monocytes 15 Pleural LDH 585.44 Pleural Glucose 100.752 Double Strand DNA Ab <1 Glomerular Base Memb Ab 3 HCV Quantitation Hcv not detected HCV RNA log copies/mL TNP Blood Type Antibody Screen Crossmatch 09/02/17 09/02/17 09/02/17 20:45 20:45 22:23 WBC 22.4 H RBC 2.74 L Hgb 7.9 L Hct 23.6 L MCV 86.1 MCH 28.9 MCHC 33.5 RDW 13.8 Plt Count 435 H D MPV 6.9 L Neutrophils % Lymphocytes % Monocytes % Eosinophils % Basophils % Puncture Site Left radial Right radial ABG pH 7.47 H 7.46 H ABG pCO2 at Pt Temp 33.7 L 38.4 ABG pO2 at Pt Temp 59.4 L 64.4 L ABG HCO3 24.4 26.6 H ABG O2 Sat (Measured) 91.4 92.9 ABG O2 Content 10.5 L 8.8 L* ABG Base Excess 1.4 3.0 H Wisam Test Positive Positive O2 Delivery Device Face tent Vent Oxygen Flow Rate 70% 70% Vent Rate 16 Mechanical Rate Yes PEEP 5.0 Pressure Support Vent 400 Sodium Potassium Chloride Carbon Dioxide Anion Gap BUN Creatinine Creat Clearance w eGFR Random Glucose Calcium Phosphorus Magnesium Total Bilirubin AST ALT Alkaline Phosphatase LD Total Total Protein Albumin Urine Color Urine Appearance Urine pH Ur Specific [place] Urine Protein Urine Glucose (UA) Urine Ketones Urine Blood Urine Nitrite Urine Bilirubin Urine Urobilinogen Ur Leukocyte Esterase Urine WBC (Auto) Urine RBC (Auto) Urine Bacteria Fluid Other Cells Pleural Fluid Source Pleural Color Pleural Appearance Pleural WBC Pleural RBC Pleural Neutrophils Pleural Lymphocytes Pleural Monocytes Pleural LDH Pleural Glucose Double Strand DNA Ab Glomerular Base Memb Ab HCV Quantitation HCV RNA log copies/mL Blood Type Antibody Screen Crossmatch 09/03/17 09/03/17 09/03/17 05:50 05:50 05:50 WBC 16.8 H RBC 2.29 L Hgb 6.6 L* D Hct 19.7 L D MCV 86.2 MCH 28.9 MCHC 33.5 RDW 13.8 Plt Count 314 D MPV 7.3 L Neutrophils % 73.4 Lymphocytes % 14.0 Monocytes % 11.5 H Eosinophils % 0.8 D Basophils % 0.3 Puncture Site ABG pH ABG pCO2 at Pt Temp ABG pO2 at Pt Temp ABG HCO3 ABG O2 Sat (Measured) ABG O2 Content ABG Base Excess Wisam Test O2 Delivery Device Oxygen Flow Rate Vent Rate Mechanical Rate PEEP Pressure Support Vent Sodium 133 L Potassium 5.2 H Chloride 92 L Carbon Dioxide 26 Anion Gap 15 BUN 64 H D Creatinine 11.6 H* D Creat Clearance w eGFR 5.47 Random Glucose 79 Calcium 7.8 L Phosphorus Magnesium 2.4 Total Bilirubin 0.2 D AST 18 ALT 10 L D Alkaline Phosphatase 62 LD Total 357 H D Cancelled Total Protein 4.8 L Albumin 1.5 L Urine Color Urine Appearance Urine pH Ur Specific [place] Urine Protein Urine Glucose (UA) Urine Ketones Urine Blood Urine Nitrite Urine Bilirubin Urine Urobilinogen Ur Leukocyte Esterase Urine WBC (Auto) Urine RBC (Auto) Urine Bacteria Fluid Other Cells Pleural Fluid Source Pleural Color Pleural Appearance Pleural WBC Pleural RBC Pleural Neutrophils Pleural Lymphocytes Pleural Monocytes Pleural LDH Pleural Glucose Double Strand DNA Ab Glomerular Base Memb Ab HCV Quantitation HCV RNA log copies/mL Blood Type Antibody Screen Crossmatch 09/03/17 09/03/17 05:55 08:30 WBC RBC Hgb Hct MCV MCH MCHC RDW Plt Count MPV Neutrophils % Lymphocytes % Monocytes % Eosinophils % Basophils % Puncture Site ABG pH ABG pCO2 at Pt Temp ABG pO2 at Pt Temp ABG HCO3 ABG O2 Sat (Measured) ABG O2 Content ABG Base Excess Wisam Test O2 Delivery Device Oxygen Flow Rate Vent Rate Mechanical Rate PEEP Pressure Support Vent Sodium Cancelled Potassium Cancelled Chloride Cancelled Carbon Dioxide Cancelled Anion Gap Cancelled BUN Cancelled Creatinine Cancelled Creat Clearance w eGFR Random Glucose Cancelled Calcium Cancelled Phosphorus 8.6 H D Magnesium Cancelled Total Bilirubin AST ALT Alkaline Phosphatase LD Total Total Protein Albumin Urine Color Urine Appearance Urine pH Ur Specific [place] Urine Protein Urine Glucose (UA) Urine Ketones Urine Blood Urine Nitrite Urine Bilirubin Urine Urobilinogen Ur Leukocyte Esterase Urine WBC (Auto) Urine RBC (Auto) Urine Bacteria Fluid Other Cells Pleural Fluid Source Pleural Color Pleural Appearance Pleural WBC Pleural RBC Pleural Neutrophils Pleural Lymphocytes Pleural Monocytes Pleural LDH Pleural Glucose Double Strand DNA Ab Glomerular Base Memb Ab HCV Quantitation HCV RNA log copies/mL Blood Type O POSITIVE Antibody Screen Negative Crossmatch See Detail Active Medications Generic Name Dose Route Start Last Admin Trade Name Franko PRN Reason Stop Dose Admin Acetaminophen 650 mg 09/01/17 17:04 09/01/17 17:28 Tylenol - PO 650 mg Q6H PRN Administration fever Albuterol/Ipratropium 1 amp 09/03/17 08:19 09/03/17 16:14 Duoneb - NEB [address] Administration Amino Acids 30 ml 09/03/17 16:15 09/03/17 18:09 Prosource No Carb Liquid Pkt NGT [address] Administration Amlodipine Besylate 10 mg 09/03/17 19:00 Norvasc - PO DAILY LANE Chlorhexidine Gluconate 1 applic 08/29/17 22:00 09/02/17 22:27 Hibiclens For Decolonization - TP [address] Administration Hydralazine HCl 20 mg 09/03/17 18:00 Apresoline - PO TID LANE Piperacillin Sod/Tazobactam 50 mls @ 100 mls/hr 09/02/17 10:00 09/03/17 17:26 Sod 2.25 gm/ Dextrose IVPB 100 mls/hr Q8H-IV LANE Administration Protocol Propofol 1,000,000 mcg in 100 mls @ 2.668 mls/hr 09/02/17 21:15 09/03/17 15: 21 Diprivan - IVPB 50 mcg/kg/min TITR LANE 26.68 mls/hr Protocol Administration 5 MCG/KG/MIN Sodium Chloride 250 mls @ 3,000 mls/hr 09/03/17 13:13 Normal Saline - IV 09/04/17 13:13 PRN PRN Hypotension during Dialysis Fentanyl 500 mcg/ Dextrose 100 mls @ 10 mls/hr 09/03/17 14:15 09/03/17 15:22 IVPB 150 mcg/hr TITR LANE 30 mls/hr Protocol Administration 50 MCG/HR Lacosamide 100 mg 08/30/17 22:00 09/03/17 10:34 Vimpat - PO [address] Administration Metoprolol Tartrate 5 mg 09/03/17 14:46 09/03/17 15:22 Lopressor Injection - IVPUSH 5 mg Q4H PRN Administration HYPERTENSION Mupirocin 1 applic 08/29/17 22:00 09/03/17 10:33 Bactroban Ointment (For Decolonization) - NS 09/03/17 21:[address] Administration Pantoprazole Sodium 40 mg 09/03/17 13:00 09/03/17 14:04 Protonix Iv IVPUSH [address] Administration ASSESSMENT/PLAN: Patient is a 22 year old male with a significant past medical history of autism and seizure disorder. He presents of the Ed with c/o of weakness, diarrhea and increased dyspnea. As per admitting notes, pt was being treated with Keflex for skin infection then developed diarrhea and was given Immodium by family for the diarrhea. Family then noted patient became weaker, had increased dyspnea at rest and had a poor appetite. On admission his creatinine was noted to be 20.5 and was noted to have hypertensive urgency with a low hmg/hct and in electrolyte imbalance of unclear etiology. Renal: Acute Kidney Injury presented with creat of 20.5, now has received dialysis since admission, most recent dialysis today Nephrology following Monitor intake and output + edema on bilateral arms Card: Hypertensive urgency BP remains elevated On metoprolol 5mg pushes q4 prn Cardiology following Pulm: Chest CT with a large pleural effusion, s/p thoracentesis on 09/02 Respiratory failure s/p intubation 09/02, white out of left lung Now intubated to protect airway IR consulted for possible chest tube monitor respiratory status Now on Zosyn Neuro: Seizures, chronic On Vimpat Heme: Anemia, thrombocytopena s/p 2 unit of prbc Monitor CBC ID: Leukocytosis Blood cultures pending, previous cultures negative Low grade fevers, Started on Zosyn ID following GI: Diarrhea, resolved F.E.N. Fluids: npo Electrolytes: monitor with daily labs Prophy: GI: deferred DVT: SCDs bilaterally Dispositon: full code Visit type - Emergency Visit Emergency Visit: Yes ED Registration Date: 08/29/17 Care time: The patient presented to the Emergency Department on the above date and was hospitalized for further evaluation of their emergent condition. - New Patient This patient is new to me today: No - Critical Care Critical Care patient: Yes Total Critical Care Time (in minutes): 35 Critical Care Statement: The care of this patient involved high complexity decision making to prevent further life threatening deterioration of the patient 's condition and/or to evaluate & treat vital organ system(s) failure or risk of failure.
[2017-09-03] MEDS: hydrALAZINE HCL 10 MG TABLET PO SCH ×2 (19:26→22:12)
[2017-09-03 19:41] LABS: HEMATOCRIT 20.4 % (35.4-49); MCH 29.3 pg (25.7-33.7); MEAN PLT VOLUME 7.1 fl (7.5-11.1); PLATELET COUNT 350 K/MM3 (134-434); RBC 2.37 M/mm3 (4.00-5.60); RDW 13.4 % (11.9-15.9); WHITE BLOOD COUNT 13.2 K/mm3 (4.0-10.0)
[2017-09-03 19:45] LABS: HEMOGLOBIN 6.9 GM/dL (11.7-16.9)
[2017-09-03] MEDS ORDERED: DOCUSATE NA 100 MG/10 ML UNIT-DOSE CUPS NGT ONE (20:12)
[2017-09-03] MEDS: amLODIPine BESYLATE 10 MG TABLET (FP) PO SCH (20:30)
--- NOTE | 2017-09-03 21:14 | PN ---
Progress Note (short form) - Note Progress Note: Patient seen and examined intubated and sedated overnight ,last night Last Vital Signs Temp Pulse Resp BP Pulse Ox 98.8 F 101 H 13 158/98 98 09/03/17 18:00 09/03/17 19:10 09/03/17 19:10 09/03/17 19:10 09/03/17 19:41 Cor: RSR, No murmurs, No gallops Lungs: Clear to P&A Abd: Soft, Normal bowel sounds, No organomegaly Ext:No significant edema Abnormal Lab Results 09/02/17 09/03/17 09/03/17 22:23 05:50 05:50 WBC 16.8 H RBC 2.29 L Hgb 6.6 L* D Hct 19.7 L D MPV 7.3 L Monocytes % 11.5 H ABG pH 7.46 H ABG pO2 at Pt Temp 64.4 L ABG HCO3 26.6 H ABG O2 Content 8.8 L* ABG Base Excess 3.0 H Sodium 133 L Potassium 5.2 H Chloride 92 L BUN 64 H D Creatinine 11.6 H* D Calcium 7.8 L Phosphorus ALT 10 L D LD Total 357 H D Total Protein 4.8 L Albumin 1.5 L Crossmatch 09/03/17 09/03/17 09/03/17 05:55 08:30 19:20 WBC 13.2 H RBC 2.37 L Hgb 6.9 L* Hct 20.4 L MPV 7.1 L Monocytes % ABG pH ABG pO2 at Pt Temp ABG HCO3 ABG O2 Content ABG Base Excess Sodium Potassium Chloride BUN Creatinine Calcium Phosphorus 8.6 H D ALT LD Total Total Protein Albumin Crossmatch See Detail Active Medications Generic Name Dose Route Start Last Admin Trade Name Freq PRN Reason Stop Dose Admin Acetaminophen 650 mg 09/01/17 17:04 09/01/17 17:28 Tylenol - PO 650 mg Q6H PRN Administration fever Albuterol/Ipratropium 1 amp 09/03/17 08:19 09/03/17 16:14 Duoneb - NEB [address] Administration Amino Acids 30 ml 09/03/17 16:15 09/03/17 18:09 Prosource No Carb Liquid Pkt NGT [address] Administration Amlodipine Besylate 10 mg 09/03/17 19:00 09/03/17 20:30 Norvasc - PO [address] Administration Chlorhexidine Gluconate 1 applic 08/29/17 22:00 09/02/17 22:27 Hibiclens For Decolonization - TP [address] Administration Docusate Sodium 100 mg 09/04/17 10:00 Colace Liquid - NGT TID PRN CONSTIPATION Hydralazine HCl 20 mg 09/03/17 18:00 09/03/17 19:26 Apresoline - PO [address] Administration Piperacillin Sod/Tazobactam 50 mls @ 100 mls/hr 09/02/17 10:00 09/03/17 17:26 Sod 2.25 gm/ Dextrose IVPB 100 mls/hr Q8H-IV LANE Administration Protocol Propofol 1,000,000 mcg in 100 mls @ 2.668 mls/hr 09/02/17 21:15 09/03/17 19: 12 Diprivan - IVPB 50 mcg/kg/min TITR LANE 26.68 mls/hr Protocol Administration 5 MCG/KG/MIN Sodium Chloride 250 mls @ 3,000 mls/hr 09/03/17 13:13 Normal Saline - IV 09/04/17 13:13 PRN PRN Hypotension during Dialysis Fentanyl 500 mcg/ Dextrose 100 mls @ 10 mls/hr 09/03/17 14:15 09/03/17 19:13 IVPB 150 mcg/hr TITR LANE 30 mls/hr Protocol Administration 50 MCG/HR Lacosamide 100 mg 08/30/17 22:00 09/03/17 10:34 Vimpat - PO [address] Administration Metoprolol Tartrate 5 mg 09/03/17 14:46 09/03/17 15:22 Lopressor Injection - IVPUSH 5 mg Q4H PRN Administration HYPERTENSION Mupirocin 1 applic 08/29/17 22:00 09/03/17 10:33 Bactroban Ointment (For Decolonization) - NS 09/03/17 21:[address] Administration Pantoprazole Sodium 40 mg 09/03/17 13:00 09/03/17 14:04 Protonix Iv IVPUSH [address] Administration Polyethylene Glycol 17 gm 09/03/17 20:15 Miralax (For Daily Use) - NGT DAILY LANE A/P 22 y/o patient with ANNA/hypertensive crisis, and 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 Now improving, with decrease in LDH and improvement in platelets. 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 Possible sepsis with leukocytosis and low grade temp? pneumonia/pleural effusion /respiratory failure underwent dialysis and PRBC trasnfusion today continue antibiotics/supportive care
[2017-09-03] MEDS: POLYETHYLENE GLYCOL 3350 119 GM BTL NGT SCH (21:34)
[2017-09-03] MEDS: CHLORHEXIDINE GLUCONATE 4% CLEANSER FOR DECOLONIZATION TP SCH (21:35)
[2017-09-03] MEDS ORDERED: LORazepam 2 MG/ML SDV VIAL IVPUSH ONE (22:59)
[2017-09-03] MEDS ORDERED: LORazepam 2 MG/ML SDV VIAL ONE (23:00)
[2017-09-04 00:08] LABS: ADAMTS13 ACTIVITY >100.0 % (>66.8)
[2017-09-04] MEDS ORDERED: DEXTROSE 5%-WATER - 50 ML IVPB ONE ×3 (01:16→17:25)
[2017-09-04] MEDS ORDERED: PIPERACILLIN/TAZOBACTAM 2.25 GM VIAL IVPB ONE ×3 (01:16→17:25)
[2017-09-04] MEDS: PIPERACILLIN/TAZOB 2.25 GM 2.25 GM in DEXTROSE 5%-WATER - 50 ML IVPB SCH ×3 (01:20→17:27)
[2017-09-04] MEDS ORDERED: fentaNYL CITRATE 250 MCG/5 ML VIAL ONE ×2 (01:35→02:44)
[2017-09-04] MEDS: ACETAMINOPHEN 325 MG TABLET (FP) PO PRN (02:40)
[2017-09-04] MEDS: FENTANYL INJECTION 500 MCG in DEXTROSE 5%-WATER - 90 ML IVPB SCH ×2 (02:42→11:06)
[2017-09-04] MEDS: PROPOFOL 1,000,000 MCG/100 ML VIAL IVPB SCH ×5 (02:42→21:16)
[2017-09-04] MEDS: hydrALAZINE HCL 10 MG TABLET PO SCH (05:22)
[2017-09-04 06:52] LABS: BASO % 0.4 % (0-2.0); EOS % 2.8 % (0-4.5); HEMOGLOBIN 7.9 GM/dL (11.7-16.9); MCH 29.1 pg (25.7-33.7); MCHC 34.4 g/dl (32.0-35.9); MEAN CELL VOLUME 84.6 fl (80-96); NEUT % 63.8 % (42.8-82.8); PLATELET COUNT 374 K/MM3 (134-434); RBC 2.72 M/mm3 (4.00-5.60); WHITE BLOOD COUNT 14.2 K/mm3 (4.0-10.0)
[2017-09-04] MEDS: METOPROLOL TARTRATE 5 MG/5 ML VIAL IVPUSH PRN (07:04)
[2017-09-04 07:23] LABS: INR 1.02 (0.82-1.09); PROTHROMBIN TIME (PATIENT) 11.5 SEC (9.98-11.88)
[2017-09-04 07:26] LABS: ACTIVATED PTT 29.3 SECONDS (26.9-34.4)
[2017-09-04 07:33] LABS: ALBUMIN 1.4 g/dl (3.4-5.0); ANION GAP 7 (8-16); BLOOD UREA NITROGEN 42 mg/dL (7-18); CALCIUM 7.5 mg/dL (8.5-10.1); CHLORIDE 97 mmol/L (98-107); CO2 32 mmol/L (21-32); GLUCOSE,RANDOM 81 mg/dL (74-106); PHOSPHOROUS 8.4 mg/dL (2.5-4.9); POTASSIUM 5.3 mmol/L (3.5-5.1); SGOT/AST 22 U/L (15-37); SGPT/ALT 13 U/L (12-78); SODIUM 136 mmol/L (136-145)
[2017-09-04 07:39] LABS: ALK PHOS 72 U/L (45-117); BILIRUBIN,TOTAL 0.2 mg/dL (0.2-1.0); TOT PROT 4.6 g/dl (6.4-8.2)
[2017-09-04] MEDS: ALBUTEROL SO4 2.5/IPRATROPIUM 0.5 INH SOL 3 ML VIAL.NEB. NEB SCH ×4 (08:26→20:55)
[2017-09-04] MEDS: LACOSAMIDE 50 MG TABLET PO SCH ×2 (09:24→21:19)
[2017-09-04] MEDS: amLODIPine BESYLATE 10 MG TABLET (FP) PO SCH (09:24)
[2017-09-04] MEDS: PANTOPRAZOLE SODIUM 40 MG VIAL IVPUSH SCH (09:25)
--- NOTE | 2017-09-04 09:41 | PN ---
Progress Note (short form) - Note Progress Note: Patient seen and examined All the events noted Imaging/notes/Labs reviewed in detail Mom at bedside. General: Intubated, sedated Cor: tachy Lungs: coarse Abd: Soft, Normal bowel sounds, No organomegaly Ext:UE 2+ edema bilateral Last Vital Signs Temp Pulse Resp BP Pulse Ox 100.3 F H 103 H 18 176/104 96 09/04/17 07:59 09/04/17 07:59 09/04/17 07:59 09/04/17 07:59 09/04/17 08:05 CBC, BMP 09/04/17 06:00 09/04/17 06:00 Current Medications Generic Name Dose Route Start Last Admin Trade Name Freq PRN Reason Stop Dose Admin Acetaminophen 650 mg 09/01/17 17:04 09/04/17 02:40 Tylenol - PO 650 mg Q6H PRN Administration fever Albuterol/Ipratropium 1 amp 09/03/17 08:19 09/04/17 08:26 Duoneb - NEB [address] Administration Amino Acids 30 ml 09/03/17 16:15 09/03/17 18:09 Prosource No Carb Liquid Pkt NGT [address] Administration Amlodipine Besylate 10 mg 09/03/17 19:00 09/03/17 20:30 Norvasc - PO [address] Administration Chlorhexidine Gluconate 1 applic 08/29/17 22:00 09/03/17 21:35 Hibiclens For Decolonization - TP [address] Administration Docusate Sodium 100 mg 09/04/17 10:00 Colace Liquid - NGT TID PRN CONSTIPATION Hydralazine HCl 20 mg 09/03/17 18:00 09/04/17 05:22 Apresoline - PO [address] Administration Piperacillin Sod/Tazobactam 50 mls @ 100 mls/hr 09/02/17 10:00 09/04/17 01:20 Sod 2.25 gm/ Dextrose IVPB 100 mls/hr Q8H-IV LANE Administration Protocol Propofol 1,000,000 mcg in 100 mls @ 2.668 mls/hr 09/02/17 21:15 09/04/17 02: 42 Diprivan - IVPB 50 mcg/kg/min TITR LANE 26.68 mls/hr Protocol Administration 5 MCG/KG/MIN Sodium Chloride 250 mls @ 3,000 mls/hr 09/03/17 13:13 Normal Saline - IV 09/04/17 13:13 PRN PRN Hypotension during Dialysis Fentanyl 500 mcg/ Dextrose 100 mls @ 10 mls/hr 09/03/17 14:15 09/04/17 02:42 IVPB 150 mcg/hr TITR LANE 30 mls/hr Protocol Administration 50 MCG/HR Lacosamide 100 mg 08/30/17 22:00 09/03/17 21:35 Vimpat - PO [address] Administration Lorazepam 1 mg 09/04/17 09:25 Ativan Injection - IVPUSH 09/04/17 09:26 ONCE ONE Metoprolol Tartrate 5 mg 09/03/17 14:46 09/04/17 07:04 Lopressor Injection - IVPUSH 5 mg Q4H PRN Administration HYPERTENSION Pantoprazole Sodium 40 mg 09/03/17 13:00 09/03/17 14:04 Protonix Iv IVPUSH [address] Administration Polyethylene Glycol 17 gm 09/03/17 20:15 09/03/17 21:34 Miralax (For Daily Use) - NGT [address] Administration Pleural effusion--parapneumonic-- respiratory failure--?etiology ,possible infectious HTN crisis---ANNA--MAHA , now with nl platelets, improving LDH. Drop in Hct with improving other parameters unlikely an evolving MAHA. 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 GEN/dsDNA negative. f/u pleural fluid studies. Rheum f.u. Abx/ICU level of care Problem List - Problems (1) Acute renal failure Code(s): N17.9 - ACUTE KIDNEY FAILURE, UNSPECIFIED Qualifiers: Acute renal failure type: unspecified Qualified Code(s): N17.9 - Acute kidney failure, unspecified (2) Anemia Code(s): D64.9 - ANEMIA, UNSPECIFIED (3) Thrombocytopenia Code(s): D69.6 - THROMBOCYTOPENIA, UNSPECIFIED (4) Hypertensive urgency Code(s): I16.0 - HYPERTENSIVE URGENCY (5) Seizure Code(s): R56.9 - UNSPECIFIED CONVULSIONS
[2017-09-04] MEDS ORDERED: DOCUSATE NA 100 MG/10 ML UNIT-DOSE CUPS NGT PRN (10:00)
[2017-09-04] MEDS: POLYETHYLENE GLYCOL 3350 119 GM BTL NGT SCH ×2 (10:00→10:19)
[2017-09-04 10:12] LABS: LDH 319 U/L (87-241)
[2017-09-04] MEDS: AMINO ACIDS/PROTEIN HYDROLYS 30 ML LIQUID.PKT NGT SCH (10:19)
[2017-09-04] MEDS ORDERED: hydrALAZINE HCL 25 MG TABLET (FP) PO ONE (10:44)
--- NOTE | 2017-09-04 10:46 | PN ---
Progress Note (short form) - Note Progress Note: cc: sob, diarrhea S: no access for IV cardene drip yesterday. Changed to po norvasc and po hydralazine. remains hypertensive. plan for chest tube today. still with minimal uop Current Medications Acetaminophen (Tylenol -) 650 mg PO Q6H PRN PRN Reason: fever Last Admin: 09/04/17 02:40 Dose: 650 mg Albuterol/Ipratropium (Duoneb -) 1 amp NEB RQID [facility] Last Admin: 09/04/17 08:26 Dose: 1 amp Amino Acids (Prosource No Carb Liquid Pkt) 30 ml NGT DAILY [facility] Last Admin: 09/04/17 10:19 Dose: 30 ml Amlodipine Besylate (Norvasc -) 10 mg PO DAILY [facility] Last Admin: 09/04/17 09:24 Dose: 10 mg Chlorhexidine Gluconate (Hibiclens For Decolonization -) 1 applic TP HS [facility] Last Admin: 09/03/17 21:35 Dose: 1 applic Docusate Sodium (Colace Liquid -) 100 mg NGT TID PRN PRN Reason: CONSTIPATION Hydralazine HCl (Apresoline -) 20 mg PO TID [facility] Last Admin: 09/04/17 05:22 Dose: 20 mg Piperacillin Sod/Tazobactam (Sod 2.25 gm/ Dextrose) 50 mls @ 100 mls/hr IVPB Q8H-IV LANE PRN Reason: Protocol Last Admin: 09/04/17 09:29 Dose: 100 mls/hr Propofol (Diprivan -) 1,000,000 mcg in 100 mls @ 2.668 mls/hr IVPB TITR LANE; 5 MCG/KG/MIN PRN Reason: Protocol Last Admin: 09/04/17 09:56 Dose: 50 mcg/kg/min, 26.68 mls/hr Sodium Chloride (Normal Saline -) 250 mls @ 3,000 mls/hr IV PRN PRN PRN Reason: Hypotension during Dialysis Stop: 09/04/17 13:13 Fentanyl 500 mcg/ Dextrose 100 mls @ 10 mls/hr IVPB TITR LANE; 50 MCG/HR PRN Reason: Protocol Last Admin: 09/04/17 02:42 Dose: 150 mcg/hr, 30 mls/hr Lacosamide (Vimpat -) 100 mg PO BID [facility] Last Admin: 09/04/17 09:24 Dose: 100 mg Lorazepam (Ativan Injection -) 1 mg IVPUSH ONCE ONE Stop: 09/04/17 09:26 Metoprolol Tartrate (Lopressor Injection -) 5 mg IVPUSH Q4H PRN PRN Reason: HYPERTENSION Last Admin: 09/04/17 07:04 Dose: 5 mg Pantoprazole Sodium (Protonix Iv) 40 mg IVPUSH DAILY [facility] Last Admin: 09/04/17 09:25 Dose: 40 mg Polyethylene Glycol (Miralax (For Daily Use) -) 17 gm NGT DAILY [facility] Last Admin: 09/04/17 10:19 Dose: 17 grams pe: Vital Signs - 24 hr 09/03/17 09/03/17 09/03/17 11:27 11:28 12:00 Temperature Pulse Rate 108 H Respiratory 20 23 28 H Rate Blood Pressure 117/93 O2 Sat by Pulse 93 L Oximetry (%) 09/03/17 09/03/17 09/03/17 13:00 13:35 13:50 Temperature 98.5 F Pulse Rate 107 H Respiratory 18 22 Rate Blood Pressure 174/95 O2 Sat by Pulse 100 Oximetry (%) 09/03/17 09/03/17 09/03/17 14:00 14:50 14:55 Temperature Pulse Rate 114 H 115 H 120 H Respiratory 16 23 24 Rate Blood Pressure 195/102 178/110 198/116 O2 Sat by Pulse Oximetry (%) 09/03/17 09/03/17 09/03/17 15:00 15:22 15:25 Temperature Pulse Rate 119 H 120 H 102 H Respiratory 26 H 20 Rate Blood Pressure 195/109 195/109 195/109 O2 Sat by Pulse Oximetry (%) 09/03/17 09/03/17 09/03/17 15:47 15:55 16:00 Temperature 98.4 F 98.7 F Pulse Rate 102 H 103 H 104 H Respiratory 12 20 22 Rate Blood Pressure 165/98 162/103 162/103 O2 Sat by Pulse 95 Oximetry (%) 09/03/17 09/03/17 09/03/17 16:15 16:25 16:55 Temperature Pulse Rate 101 H 115 H Respiratory 19 19 18 Rate Blood Pressure 160/95 190/118 O2 Sat by Pulse Oximetry (%) 09/03/17 09/03/17 09/03/17 17:00 17:25 18:00 Temperature 98.8 F Pulse Rate 124 H 119 H 102 H Respiratory 24 20 22 Rate Blood Pressure 166/107 182/111 167/99 O2 Sat by Pulse Oximetry (%) 09/03/17 09/03/17 09/03/17 18:47 19:10 19:41 Temperature Pulse Rate 101 H Respiratory 20 13 Rate Blood Pressure 158/98 O2 Sat by Pulse 98 Oximetry (%) 09/03/17 09/03/17 09/03/17 21:00 21:30 22:00 Temperature 98.6 F Pulse Rate 101 H 102 H Respiratory 24 22 14 Rate Blood Pressure 156/101 158/112 O2 Sat by Pulse 96 Oximetry (%) 09/03/17 09/04/17 09/04/17 23:00 00:00 00:05 Temperature Pulse Rate 113 H 111 H Respiratory 14 16 19 Rate Blood Pressure 166/114 160/107 O2 Sat by Pulse Oximetry (%) 09/04/17 09/04/17 09/04/17 01:00 02:00 03:02 Temperature 99.4 F Pulse Rate 109 H 111 H Respiratory 16 17 19 Rate Blood Pressure 152/103 169/104 O2 Sat by Pulse Oximetry (%) 09/04/17 09/04/17 09/04/17 03:05 04:00 05:00 Temperature 100.2 F H 100.2 F H Pulse Rate 110 H 105 H 106 H Respiratory 18 18 18 Rate Blood Pressure 161/112 170/110 159/113 O2 Sat by Pulse Oximetry (%) 09/04/17 09/04/17 09/04/17 05:10 06:00 07:04 Temperature 100.1 F H Pulse Rate 111 H 115 H Respiratory 20 20 18 Rate Blood Pressure 177/112 180/115 O2 Sat by Pulse Oximetry (%) 09/04/17 09/04/17 09/04/17 07:55 07:59 08:05 Temperature 100.3 F H Pulse Rate 103 H Respiratory 20 18 Rate Blood Pressure 176/104 O2 Sat by Pulse 96 96 Oximetry (%) 09/04/17 09/04/17 08:45 10:00 Temperature 100 F H Pulse Rate 108 H Respiratory 18 18 Rate Blood Pressure 173/106 O2 Sat by Pulse Oximetry (%) Intake & Output 09/02/17 09/03/17 09/04/17 09/05/17 07:59 07:59 07:59 07:59 Intake Total 1244 1488 2326 Output Total 105 95 70 Balance 1139 1393 2256 Weight 196 lb 1 oz 203 lb 8 oz 206 lb intubated sedated nad no jvd rrr s1 s2 no mrg dec bs left, no jaundice diaphoresis pos dp pt trace le edema bl abd nd pos bs CBC, BMP 09/04/17 06:00 09/04/17 06:00 ecg: sr,prolonged qtc, no ischemic changes echo 08/2017: nl lv/rv, no sig valve path cxr: left eff tele: sr/st a/p: 22 m hx autism, seizures, possible underlying ckd/htn here with ams, respiratory failure/sepsis, anna requiring HD and hypertensive urgency. Cardiac course complicated by mild troponin elevation and prolonged qtc. anna requiring HD: -renal eval in progress, planned for biopsy -currently getting intermittent HD here htn urgency/emergency: -elevated at times -now on nicard gtt. will get po procardia today as well and try to titrate off gtt. - 09/03: no IV access for cardene drip. needs po meds through NG tube --> started norvasc 10, hydral 20 tid. - 09/04 remains htn. Uptitrated hydralazine to 50 tid. This afternoon remains hypertensive. Will add carvedilol 6.25 bid. -echo here unremarkable abnl ecg: -prolonged qtc, possibly due to anna -qtc improved on repeat ecg. abnormal troponins - likely increased in setting of ANNA. anemia: -chronic, per primary team respiratory failure s/p intubation 09/02 - with white out of left lung - 09/04 plan for chest tube placement. cct 35 min
[2017-09-04] MEDS ORDERED: HYDROmorphone HCL CARPU-JECT 1 MG/1 ML DISP.SYRIN IVPUSH ONE (11:01)
[2017-09-04] MEDS ORDERED: MIDAZOLAM HCL 2 MG/2 ML SINGLE DOSE VIAL IVPUSH ONE (11:01)
[2017-09-04] MEDS ORDERED: morphine SULFATE 4 MG/ML VIAL IVPUSH ONE (12:03)
[2017-09-04] MEDS ORDERED: morphine SULFATE 4 MG/ML VIAL ONE (12:04)
--- NOTE | 2017-09-04 13:04 | PN ---
Progress Note (short form) - Note Progress Note: chart reviewed s/p chest tube placement- about 500 cc of cloudy serous fluid in chest tube- counts /gram stain pending Vital Signs Period Temp Pulse Resp BP Sys/Mora Pulse Ox Last 24 Hr 98.4 F-100.3 F 101-124 12-26 152-198/95-125 95-100 intubated sedated cor-rrr lungs decreased bs at bases abd soft,nt ext no edema CBC, BMP 09/04/17 06:00 09/04/17 06:00 Microbiology 09/02/17 16:20 Blood - Peripheral Venous Blood Culture - Preliminary NO GROWTH OBTAINED AFTER 24 HOURS, INCUBATION TO CONTINUE FOR 4 DAYS. 09/02/17 16:14 Pleural Fluid Gram Stain - Final 09/02/17 16:14 Pleural Fluid Body Fluid Culture - Preliminary NO AEROBIC GROWTH, 24 HRS 09/02/17 18:00 Urine - Urine Clean Catch Urine Culture - Final NO GROWTH OBTAINED 09/01/17 15:00 Blood - Central Line Blood Culture - Preliminary NO GROWTH OBTAINED AFTER 48 HOURS, INCUBATION TO CONTINUE FOR 3 DAYS. 09/01/17 15:00 Blood - Central Line Blood Culture - Preliminary NO GROWTH OBTAINED AFTER 48 HOURS, INCUBATION TO CONTINUE FOR 3 DAYS. 08/29/17 12:37 Blood - Peripheral Venous Blood Culture - Final NO GROWTH AFTER 5 DAYS INCUBATION 08/29/17 12:37 Blood - Peripheral Venous Blood Culture - Final NO GROWTH AFTER 5 DAYS INCUBATION 08/29/17 10:52 Urine - Urine Clean Catch Urine Culture - Final NO GROWTH OBTAINED meds reviewed a/p respiratory failure pleural effusion- s/p chest tube- htn Acute renal failure- continue zosyn, f/u cultures HTN d/w dr bob and critiacl care team cefprozil allergy- rash has taken augmentin and keflex in the past per Mom
--- NOTE | 2017-09-04 13:23 | PN ---
Teaching Attending Note Name of Resident: Rashel Iniguez ATTENDING PHYSICIAN STATEMENT I saw and evaluated the patient. I reviewed the resident's note and discussed the case with the resident. I agree with the resident's findings and plan as documented. SUBJECTIVE: Pt seen and examined in the ICU. Remains intubated, arousable on high sedation. Vented on volume assist control with 60% fiO2. Low grade temps overnight. OBJECTIVE: Last Vital Signs Temp Pulse Resp BP Pulse Ox 100 F H 114 H 19 187/123 96 09/04/17 12:20 09/04/17 12:40 09/04/17 13:05 09/04/17 12:40 09/04/17 12:14 Intake & Output 09/01/17 09/02/17 09/03/17 09/04/17 23:59 23:59 23:59 23:59 Intake Total 1124 1310 1694 1170 Output Total 155 95 30 40 Balance 969 1215 1664 1130 Weight 88.932 kg 92.306 kg 93.44 kg Gen: intubated, arousable Heart: tachycardic, regular Lung: left sided rhonchi, decreased breath sounds left Abd: soft, nontender Ext: + edema CBC, BMP 09/04/17 06:00 09/04/17 06:00 Active Medications Acetaminophen (Tylenol -) 650 mg PO Q6H PRN PRN Reason: fever Last Admin: 09/04/17 02:40 Dose: 650 mg Albuterol/Ipratropium (Duoneb -) 1 amp NEB RQID [facility] Last Admin: 09/04/17 12:09 Dose: Not Given Amino Acids (Prosource No Carb Liquid Pkt) 30 ml NGT DAILY [facility] Last Admin: 09/04/17 10:19 Dose: 30 ml Amlodipine Besylate (Norvasc -) 10 mg PO DAILY [facility] Last Admin: 09/04/17 09:24 Dose: 10 mg Chlorhexidine Gluconate (Hibiclens For Decolonization -) 1 applic TP HS [facility] Last Admin: 09/03/17 21:35 Dose: 1 applic Docusate Sodium (Colace Liquid -) 100 mg NGT TID PRN PRN Reason: CONSTIPATION Hydralazine HCl (Apresoline -) 20 mg PO TID [facility] Last Admin: 09/04/17 05:22 Dose: 20 mg Piperacillin Sod/Tazobactam (Sod 2.25 gm/ Dextrose) 50 mls @ 100 mls/hr IVPB Q8H-IV LANE PRN Reason: Protocol Last Admin: 09/04/17 09:29 Dose: 100 mls/hr Propofol (Diprivan -) 1,000,000 mcg in 100 mls @ 2.668 mls/hr IVPB TITR LANE; 5 MCG/KG/MIN PRN Reason: Protocol Last Admin: 09/04/17 09:56 Dose: 50 mcg/kg/min, 26.68 mls/hr Sodium Chloride (Normal Saline -) 250 mls @ 3,000 mls/hr IV PRN PRN PRN Reason: Hypotension during Dialysis Stop: 09/04/17 13:13 Fentanyl 500 mcg/ Dextrose 100 mls @ 10 mls/hr IVPB TITR LANE; 50 MCG/HR PRN Reason: Protocol Last Admin: 09/04/17 11:06 Dose: 150 mcg/hr, 30 mls/hr Lacosamide (Vimpat -) 100 mg PO BID [facility] Last Admin: 09/04/17 09:24 Dose: 100 mg Metoprolol Tartrate (Lopressor Injection -) 5 mg IVPUSH Q4H PRN PRN Reason: HYPERTENSION Last Admin: 09/04/17 07:04 Dose: 5 mg Pantoprazole Sodium (Protonix Iv) 40 mg IVPUSH DAILY [facility] Last Admin: 09/04/17 09:25 Dose: 40 mg Polyethylene Glycol (Miralax (For Daily Use) -) 17 gm NGT DAILY [facility] Last Admin: 09/04/17 10:19 Dose: 17 grams ASSESSMENT AND PLAN: Hypertensive Urgency Acute Kidney Injury requiring HD Acute Hypoxic Respiratory Failure Pneumonia Loculated Pleural Effusion Hyponatremia Severe Sepsis Lactic Acidosis Thrombocytopenia improved Anemia Autism - continue antibiotics - f/u cultures - for pigtail catheter placement, send fluid for cell count, LDH, total protein , pH, glucose, cholesterol, amylase, triglycerides, cultures and cytology - HD per renal with ultrafiltration - monitor H/H - transfuse PRBC with HD as needed - monitor urine output, creatinine - BP control - taper Fio2 to keep Spo2 >90% - not a candidate for weaning at this time due to high oxygen requirements - enteral feeds - DVT/GI prophylaxis - continue ICU monitoring critical care time spent in reviewing chart, evaluating patient and formulating plan 35 min
[2017-09-04] MEDS: hydrALAZINE HCL 50 MG TABLET (FP) PO SCH ×2 (14:02→21:19)
--- NOTE | 2017-09-04 14:25 | PN ---
Physical Exam: SUBJECTIVE: Patient seen and examined S/p dialysis yesterday. Overnight, Hgb went from 6.6--> 6.9 after 1 unit of PRBCs. A 2nd unit was ordered. Pt had Tmax of 100.2. Pt persistently hypertensive, so started on po hydralazine and amlodipine. Pt was difficult to sedate- propofol maxed out at 50, fentanyl at 150, ativan 1mg given with good effect. This am, pt still alert and pulling at lines and tubes. Appears comfortable, non -verbal at baseline. OBJECTIVE: Vital Signs Period Temp Pulse Resp BP Sys/Mora Pulse Ox Last 24 Hr 98.4 F-100.3 F 101-124 12-26 152-198/95-125 91-98 GENERAL: young male with autism, lying in bed, non-verbal, on vent, awake and alert HEENT: PEARRLA, EOMI LUNGS: mechanical breath sounds HEART: tachycardia, regular rhythm, no murmurs ABDOMEN: soft, NT, ND EXTREMITIES: 2+ pulses, warm, well-perfused, 2+ edema in all 4 extremities NEUROLOGICAL: EOMI, PEARRLA, unresponsive to commands Laboratory Results - last 24 hr 08/29/17 09/03/17 09/03/17 23:49 08:30 19:20 WBC 13.2 H RBC 2.37 L Hgb 6.9 L* Hct 20.4 L MCV 86.0 MCH 29.3 MCHC 34.0 RDW 13.4 Plt Count 350 MPV 7.1 L Neutrophils % Lymphocytes % Monocytes % Eosinophils % Basophils % Retic Count PT with INR INR PTT (Actin FS) [id number] Activity >100.0 Sodium Potassium Chloride Carbon Dioxide Anion Gap BUN Creatinine Creat Clearance w eGFR Random Glucose Calcium Phosphorus Magnesium Total Bilirubin AST ALT Alkaline Phosphatase LD Total Total Protein Albumin Blood Type O POSITIVE Antibody Screen Negative Crossmatch See Detail 09/04/17 09/04/17 09/04/17 06:00 06:00 06:00 WBC 14.2 H RBC 2.72 L Hgb 7.9 L D Hct 23.0 L MCV 84.6 MCH 29.1 MCHC 34.4 RDW 16.0 H D Plt Count 374 MPV 7.0 L Neutrophils % 63.8 Lymphocytes % 19.0 D Monocytes % 14.0 H Eosinophils % 2.8 D Basophils % 0.4 Retic Count PT with INR 11.50 INR 1.02 PTT (Actin FS) 29.3 [id number] Activity Sodium 136 Potassium 5.3 H Chloride 97 L Carbon Dioxide 32 D Anion Gap 7 L BUN 42 H D Creatinine 8.0 H* D Creat Clearance w eGFR 8.40 Random Glucose 81 Calcium 7.5 L Phosphorus 8.4 H Magnesium 2.0 Total Bilirubin 0.2 AST 22 D ALT 13 D Alkaline Phosphatase 72 LD Total 319 H Total Protein 4.6 L Albumin 1.4 L Blood Type Antibody Screen Crossmatch 09/04/17 09/04/17 06:00 06:00 WBC RBC Hgb Hct MCV MCH MCHC RDW Plt Count MPV Neutrophils % Lymphocytes % Monocytes % Eosinophils % Basophils % Retic Count 3.64 H D PT with INR INR PTT (Actin FS) [id number] Activity Sodium Potassium Chloride Carbon Dioxide Anion Gap BUN Creatinine Creat Clearance w eGFR Random Glucose Calcium Phosphorus Magnesium Total Bilirubin AST ALT Alkaline Phosphatase LD Total Cancelled Total Protein Albumin Blood Type Antibody Screen Crossmatch Active Medications Generic Name Dose Route Start Last Admin Trade Name Freq PRN Reason Stop Dose Admin Acetaminophen 650 mg 09/01/17 17:04 09/04/17 02:40 Tylenol - PO 650 mg Q6H PRN Administration fever Albuterol/Ipratropium 1 amp 09/03/17 08:19 09/04/17 12:09 Duoneb - NEB Not Given RQID LANE Amino Acids 30 ml 09/03/17 16:15 09/04/17 10:19 Prosource No Carb Liquid Pkt NGT [address] Administration Amlodipine Besylate 10 mg 09/03/17 19:00 09/04/17 09:24 Norvasc - PO [address] Administration Chlorhexidine Gluconate 1 applic 08/29/17 22:00 09/03/17 21:35 Hibiclens For Decolonization - TP [address] Administration Docusate Sodium 100 mg 09/04/17 10:00 Colace Liquid - NGT TID PRN CONSTIPATION Hydralazine HCl 50 mg 09/04/17 13:32 09/04/17 14:02 Apresoline - PO [address] Administration Piperacillin Sod/Tazobactam 50 mls @ 100 mls/hr 09/02/17 10:00 09/04/17 09:29 Sod 2.25 gm/ Dextrose IVPB 100 mls/hr Q8H-IV LANE Administration Protocol Propofol 1,000,000 mcg in 100 mls @ 2.668 mls/hr 09/02/17 21:15 09/04/17 12: 45 Diprivan - IVPB 50 mcg/kg/min TITR LANE 26.68 mls/hr Protocol Administration 5 MCG/KG/MIN Sodium Chloride 250 mls @ 3,000 mls/hr 09/03/17 13:13 Normal Saline - IV 09/04/17 13:13 PRN PRN Hypotension during Dialysis Fentanyl 1,000 mcg/ Dextrose 100 mls @ 5 mls/hr 09/04/17 13:[address] Protocol 50 MCG/HR Lacosamide 100 mg 08/30/17 22:00 09/04/17 09:24 Vimpat - PO [address] Administration Metoprolol Tartrate 5 mg 09/03/17 14:46 09/04/17 07:04 Lopressor Injection - IVPUSH 5 mg Q4H PRN Administration HYPERTENSION Pantoprazole Sodium 40 mg 09/03/17 13:00 09/04/17 09:25 Protonix Iv IVPUSH [address] Administration Polyethylene Glycol 17 gm 09/03/17 20:15 09/04/17 10:19 Miralax (For Daily Use) - NGT [address] Administration ASSESSMENT/PLAN: 22M w/ hx of autism and seizure disorder who presented with severe HTN, anemia, thrombocytopenia, leukocytosis, hyperkalemia, and ANNA, admitted to ICU. Pt is s/ p PRBCs, platelets, FFP, dialysis, s/p intubation on 09/02, and s/p diagnostic tap of loculated pleural effusion on 09/02 CV #hypertensive urgency/emergency- unclear etiology, improving -started on hydralazine and amlodipine. per renal, hydralazine increased to 50mg TID -monitor MAPs -nephrology on board, recs appreciated. Pt to get another round of HD today -anne in place #troponinemia- likely 2/2 renal failure and demand ischemia from HTN -peaked, no longer trending Resp #acute hypoxic resp failure -pt s/p intubation on 09/02. maxed out on propofol, fentanyl at 150, but pt still not adequately sedated. will start versed gtt if need be. -CXR and CT chest: loculated pleural effusion on left side -Pt received IR guided chest tube this afternoon. -f/u CXR for placement -repeat pleural fluid studies including triglycerides and amylase ordered. f/u Hematology #anemia and thrombocytopenia -hematology on board, recs appreciated. -Hgb this am of 7.9 after 2 units of PRBCs yesterday -platelets wnl, 374 ID #sepsis- leukocytosis of 14.2, up from 13. tachycardia -ID on board, Dr. Moise, recs appreciated. zosyn and vanc -f/u sputum cx -f/u Bcx and Ucx -f/u pleural cultures and studies Nephro #hyperkalemia and ANNA -nephrology on board, recs appreciated. Another round of HD scheduled for today. Renal bx to be done once pt is more stable. Fentanyl concentrated to decrease fluids given. Water flushes decreased. -hyperkalemia of 5.3 today Neuro #seizure disorder -neuro on board, f/u recs. home depakote held given risk of thrombocytopenia. continue lacosamide for seizure ppx. GI #diarrhea- resolved FEN/ppx -po fluids -hyperkalemia and hyperphosphatemia -nepro tube feeds per RD -protonix -SCDs due to low Hgb Case discussed with attending, Dr. Monk. -Rashel Iniguez MD PGY1 ICU Team Visit type - Emergency Visit Emergency Visit: Yes ED Registration Date: 08/29/17 Care time: The patient presented to the Emergency Department on the above date and was hospitalized for further evaluation of their emergent condition. - New Patient This patient is new to me today: No - Critical Care Critical Care patient: Yes Total Critical Care Time (in minutes): 39 Critical Care Statement: The care of this patient involved high complexity decision making to prevent further life threatening deterioration of the patient 's condition and/or to evaluate & treat vital organ system(s) failure or risk of failure.
--- NOTE | 2017-09-04 15:02 | PN ---
Progress Note, Physician History of Present Illness: Pt seen and examined at bedside. He remains in the ICU. He had a chest tube placed today. He remains intubated. - Current Medication List Current Medications: Active Medications Acetaminophen (Tylenol -) 650 mg PO Q6H PRN PRN Reason: fever Last Admin: 09/04/17 02:40 Dose: 650 mg Albuterol/Ipratropium (Duoneb -) 1 amp NEB RQID [facility] Last Admin: 09/04/17 12:09 Dose: Not Given Amino Acids (Prosource No Carb Liquid Pkt) 30 ml NGT DAILY [facility] Last Admin: 09/04/17 10:19 Dose: 30 ml Amlodipine Besylate (Norvasc -) 10 mg PO DAILY [facility] Last Admin: 09/04/17 09:24 Dose: 10 mg Chlorhexidine Gluconate (Hibiclens For Decolonization -) 1 applic TP HS [facility] Last Admin: 09/03/17 21:35 Dose: 1 applic Docusate Sodium (Colace Liquid -) 100 mg NGT TID PRN PRN Reason: CONSTIPATION Hydralazine HCl (Apresoline -) 50 mg PO TID [facility] Last Admin: 09/04/17 14:02 Dose: 50 mg Piperacillin Sod/Tazobactam (Sod 2.25 gm/ Dextrose) 50 mls @ 100 mls/hr IVPB Q8H-IV LANE PRN Reason: Protocol Last Admin: 09/04/17 09:29 Dose: 100 mls/hr Propofol (Diprivan -) 1,000,000 mcg in 100 mls @ 2.668 mls/hr IVPB TITR LANE; 5 MCG/KG/MIN PRN Reason: Protocol Last Admin: 09/04/17 12:45 Dose: 50 mcg/kg/min, 26.68 mls/hr Sodium Chloride (Normal Saline -) 250 mls @ 3,000 mls/hr IV PRN PRN PRN Reason: Hypotension during Dialysis Stop: 09/04/17 13:13 Fentanyl 1,000 mcg/ Dextrose 100 mls @ 5 mls/hr IVPB TITR LANE; 50 MCG/HR PRN Reason: Protocol Lacosamide (Vimpat -) 100 mg PO BID [facility] Last Admin: 09/04/17 09:24 Dose: 100 mg Metoprolol Tartrate (Lopressor Injection -) 5 mg IVPUSH Q4H PRN PRN Reason: HYPERTENSION Last Admin: 09/04/17 07:04 Dose: 5 mg Pantoprazole Sodium (Protonix Iv) 40 mg IVPUSH DAILY [facility] Last Admin: 09/04/17 09:25 Dose: 40 mg Polyethylene Glycol (Miralax (For Daily Use) -) 17 gm NGT DAILY [facility] Last Admin: 09/04/17 10:19 Dose: 17 grams - Objective Vital Signs: Vital Signs Temperature 99 F 09/04/17 14:00 Pulse Rate 106 H 09/04/17 14:00 Respiratory Rate 19 09/04/17 13:05 Blood Pressure 173/99 09/04/17 14:00 O2 Sat by Pulse Oximetry (%) 91 L 09/04/17 12:55 Constitutional: Yes: Calm Eyes: Yes: Conjunctiva Clear HENT: Yes: Atraumatic Cardiovascular: Yes: S1, S2 Respiratory: Yes: Mechanically Ventilated Gastrointestinal: Yes: Normal Bowel Sounds, Soft Genitourinary: Yes: Incontinence Musculoskeletal: Yes: Muscle Weakness Edema: Yes Edema: LUE: 1+, RUE: 1+, LLE: 1+, RLE: 1+ Neurological: Yes: Lethargy Labs: CBC, BMP 09/04/17 06:00 09/04/17 06:00 INR, PTT INR 1.02 (0.82-1.09) 09/04/17 06:00 Fibrinogen 579.0 mg/dL (238-498) H 08/29/17 20:00 - ....Imaging Chest X-ray: Report Reviewed Problem List - Problems (1) Acute renal failure Code(s): N17.9 - ACUTE KIDNEY FAILURE, UNSPECIFIED Qualifiers: Acute renal failure type: unspecified Qualified Code(s): N17.9 - Acute kidney failure, unspecified (2) Anemia Code(s): D64.9 - ANEMIA, UNSPECIFIED (3) Hyperkalemia Code(s): E87.5 - HYPERKALEMIA (4) Hypertensive urgency Code(s): I16.0 - HYPERTENSIVE URGENCY (5) Sepsis Code(s): A41.9 - SEPSIS, UNSPECIFIED ORGANISM Qualifiers: Sepsis type: sepsis due to unspecified organism Qualified Code(s): A41.9 - Sepsis, unspecified organism (6) Thrombocytopenia Code(s): D69.6 - THROMBOCYTOPENIA, UNSPECIFIED (7) Seizure Code(s): R56.9 - UNSPECIFIED CONVULSIONS Assessment/Plan Current Medications Generic Name Dose Route Start Last Admin Trade Name Freq PRN Reason Stop Dose Admin Acetaminophen 650 mg 09/01/17 17:04 09/04/17 02:40 Tylenol - PO 650 mg Q6H PRN Administration fever Albuterol/Ipratropium 1 amp 09/03/17 08:19 09/04/17 12:09 Duoneb - NEB Not Given RQID LANE Amino Acids 30 ml 09/03/17 16:15 09/04/17 10:19 Prosource No Carb Liquid Pkt NGT [address] Administration Amlodipine Besylate 10 mg 09/03/17 19:00 09/04/17 09:24 Norvasc - PO [address] Administration Chlorhexidine Gluconate 1 applic 08/29/17 22:00 09/03/17 21:35 Hibiclens For Decolonization - TP [address] Administration Docusate Sodium 100 mg 09/04/17 10:00 Colace Liquid - NGT TID PRN CONSTIPATION Hydralazine HCl 50 mg 09/04/17 13:32 09/04/17 14:02 Apresoline - PO [address] Administration Piperacillin Sod/Tazobactam 50 mls @ 100 mls/hr 09/02/17 10:00 09/04/17 09:29 Sod 2.25 gm/ Dextrose IVPB 100 mls/hr Q8H-IV LANE Administration Protocol Propofol 1,000,000 mcg in 100 mls @ 2.668 mls/hr 09/02/17 21:15 09/04/17 12: 45 Diprivan - IVPB 50 mcg/kg/min TITR LANE 26.68 mls/hr Protocol Administration 5 MCG/KG/MIN Sodium Chloride 250 mls @ 3,000 mls/hr 09/03/17 13:13 Normal Saline - IV 09/04/17 13:13 PRN PRN Hypotension during Dialysis Fentanyl 1,000 mcg/ Dextrose 100 mls @ 5 mls/hr 09/04/17 13:[address] Protocol 50 MCG/HR Lacosamide 100 mg 08/30/17 22:00 09/04/17 09:24 Vimpat - PO [address] Administration Metoprolol Tartrate 5 mg 09/03/17 14:46 09/04/17 07:04 Lopressor Injection - IVPUSH 5 mg Q4H PRN Administration HYPERTENSION Pantoprazole Sodium 40 mg 09/03/17 13:00 09/04/17 09:25 Protonix Iv IVPUSH [address] Administration Polyethylene Glycol 17 gm 09/03/17 20:15 09/04/17 10:19 Miralax (For Daily Use) - NGT [address] Administration Laboratory Tests 08/29/17 08/31/17 09/02/17 20:00 11:00 05:50 Double Strand DNA Ab <1 Glomerular Base Memb Ab 3 Complement C3 133 Complement C4 31 HCV Quantitation Hcv not detected Anti-DNase B (Strep) Pending Impression 1. ANNA 2. HTN urgency/emergency 3. hyperkalemia 4. hyponatremia 5. autism 6. hx of seizure 7. anemia 8. CKD 9. lactic acidosis improving 10. thrombocytopenia 11. hyperkalemia 12. pleural effusion 13. acute resp failure requiring intubation Plan - will arrange for HD again tomorrow - bp meds adjusted - will UF volume on HD - filled out paper for his mother for leave from work - s/p chest tube, monitor output - follow serologies - discussed with ICU team - follow pleural fluid studies - kidney biopsy once more stable - monitor LDH level - monitor platelets - keep in ICU - will follow closely Dr Velasquez
[2017-09-04] MEDS: DEXTROSE 5% IVPB SCH ×2 (15:08→20:32)
[2017-09-04] MEDS: WATER IVPB SCH ×2 (15:08→20:32)
[2017-09-04] MEDS: FENTANYL IVPB SCH ×2 (15:08→20:32)
[2017-09-04 15:35] LABS: PLEURAL FLUID APPEARANCE CLOUDY; PLEURAL FLUID RBC 16976 /mm3
--- NOTE | 2017-09-04 15:36 | PN ---
Physical Exam: SUBJECTIVE: Patient seen and examined. Mother at the bedside. Patient is intubated, sedated. At times he becomes agitated despite propofol and fentanyl Wrist restraints to protect patient from self injury OBJECTIVE: Chest tube placed today with 600cc of sero sang drainage Vital Signs Period Temp Pulse Resp BP Sys/Mora Pulse Ox Last 24 Hr 98.1 F-100.3 F 101-124 12-24 152-190/95-125 91-98 GENERAL: sedated, intubated HEAD: Normal with no signs of trauma. EYES: PERRL, extraocular movements intact, sclera anicteric, conjunctiva clear. No ptosis. LUNGS: anterior lung sounds clear, intubat HEART: sinus tachy on backbreaker BP elevated ABDOMEN: Soft, nontender, nondistended EXTREMITIES: bilateral upper arms non pitting edema Laboratory Results - last 24 hr 08/29/17 09/03/17 09/03/17 23:49 08:30 19:20 WBC 13.2 H RBC 2.37 L Hgb 6.9 L* Hct 20.4 L MCV 86.0 MCH 29.3 MCHC 34.0 RDW 13.4 Plt Count 350 MPV 7.1 L Neutrophils % Lymphocytes % Monocytes % Eosinophils % Basophils % Retic Count PT with INR INR PTT (Actin FS) [id number] Activity >100.0 Sodium Potassium Chloride Carbon Dioxide Anion Gap BUN Creatinine Creat Clearance w eGFR Random Glucose Calcium Phosphorus Magnesium Total Bilirubin AST ALT Alkaline Phosphatase LD Total Total Protein Albumin Blood Type O POSITIVE Antibody Screen Negative Crossmatch See Detail 09/04/17 09/04/17 09/04/17 06:00 06:00 06:00 WBC 14.2 H RBC 2.72 L Hgb 7.9 L D Hct 23.0 L MCV 84.6 MCH 29.1 MCHC 34.4 RDW 16.0 H D Plt Count 374 MPV 7.0 L Neutrophils % 63.8 Lymphocytes % 19.0 D Monocytes % 14.0 H Eosinophils % 2.8 D Basophils % 0.4 Retic Count PT with INR 11.50 INR 1.02 PTT (Actin FS) 29.3 [id number] Activity Sodium 136 Potassium 5.3 H Chloride 97 L Carbon Dioxide 32 D Anion Gap 7 L BUN 42 H D Creatinine 8.0 H* D Creat Clearance w eGFR 8.40 Random Glucose 81 Calcium 7.5 L Phosphorus 8.4 H Magnesium 2.0 Total Bilirubin 0.2 AST 22 D ALT 13 D Alkaline Phosphatase 72 LD Total 319 H Total Protein 4.6 L Albumin 1.4 L Blood Type Antibody Screen Crossmatch 09/04/17 09/04/17 06:00 06:00 WBC RBC Hgb Hct MCV MCH MCHC RDW Plt Count MPV Neutrophils % Lymphocytes % Monocytes % Eosinophils % Basophils % Retic Count 3.64 H D PT with INR INR PTT (Actin FS) [id number] Activity Sodium Potassium Chloride Carbon Dioxide Anion Gap BUN Creatinine Creat Clearance w eGFR Random Glucose Calcium Phosphorus Magnesium Total Bilirubin AST ALT Alkaline Phosphatase LD Total Cancelled Total Protein Albumin Blood Type Antibody Screen Crossmatch Active Medications Generic Name Dose Route Start Last Admin Trade Name Freq PRN Reason Stop Dose Admin Acetaminophen 650 mg 09/01/17 17:04 09/04/17 02:40 Tylenol - PO 650 mg Q6H PRN Administration fever Albuterol/Ipratropium 1 amp 09/03/17 08:19 09/04/17 12:09 Duoneb - NEB Not Given RQID LANE Amino Acids 30 ml 09/03/17 16:15 09/04/17 10:19 Prosource No Carb Liquid Pkt NGT [address] Administration Amlodipine Besylate 10 mg 09/03/17 19:00 09/04/17 09:24 Norvasc - PO [address] Administration Chlorhexidine Gluconate 1 applic 08/29/17 22:00 09/03/17 21:35 Hibiclens For Decolonization - TP [address] Administration Docusate Sodium 100 mg 09/04/17 10:00 Colace Liquid - NGT TID PRN CONSTIPATION Hydralazine HCl 50 mg 09/04/17 13:32 09/04/17 14:02 Apresoline - PO [address] Administration Piperacillin Sod/Tazobactam 50 mls @ 100 mls/hr 09/02/17 10:00 09/04/17 09:29 Sod 2.25 gm/ Dextrose IVPB 100 mls/hr Q8H-IV LANE Administration Protocol Propofol 1,000,000 mcg in 100 mls @ 2.668 mls/hr 09/02/17 21:15 09/04/17 12: 45 Diprivan - IVPB 50 mcg/kg/min TITR LANE 26.68 mls/hr Protocol Administration 5 MCG/KG/MIN Fentanyl 1,000 mcg/ Dextrose 100 mls @ 5 mls/hr 09/04/17 13:39 09/04/17 15:08 IVPB 150 mcg/hr TITR LANE 15 mls/hr Protocol Administration 50 MCG/HR Sodium Chloride 250 mls @ 3,000 mls/hr 09/04/17 15:03 Normal Saline - IV 09/05/17 15:03 PRN PRN Hypotension during Dialysis Lacosamide 100 mg 08/30/17 22:00 09/04/17 09:24 Vimpat - PO [address] Administration Metoprolol Tartrate 5 mg 09/03/17 14:46 09/04/17 07:04 Lopressor Injection - IVPUSH 5 mg Q4H PRN Administration HYPERTENSION Pantoprazole Sodium 40 mg 09/03/17 13:00 09/04/17 09:25 Protonix Iv IVPUSH [address] Administration Polyethylene Glycol 17 gm 09/03/17 20:15 09/04/17 10:19 Miralax (For Daily Use) - NGT [address] Administration ASSESSMENT/PLAN: Patient is a 22 year old male with a significant past medical history of autism , hypertension and seizure disorder. He presents of the ED on 08/29/2017 with c/ o of weakness, diarrhea and increased dyspnea. As per admitting notes, pt was being treated with Keflex for skin infection then developed diarrhea and was given Immodium by family for the diarrhea. Family then noted patient became weaker, had increased dyspnea at rest and had a poor appetite. On admission his creatinine was noted to be 20.5 and was noted to have hypertensive urgency with a low hmg/hct and in electrolyte imbalance of unclear etiology. Hospitalization further complicated when patient required intubation for acute respiratory failure. Pulm: Acute Hypoxic Respiratory Failure Respiratory Failure/Hypoxemia Intubated/sedated Chest CT with a large pleural effusion, s/p thoracentesis on 09/02, now with chest tube with apx 600 cc sero sang drainage monitor respiratory status On Zosyn per ID Renal: Acute Kidney Injury presented with creat of 20.5, now has received dialysis since admission Nephrology following Monitor intake and output + edema on bilateral arms Card: Hypertensive urgency BP remains elevated Card on board On Lopressor IVP, Norvasc, Hydralazine via feeding tube Cardiology following Neuro: Seizures, chronic On Vimpat Last seizure on 11/2016 Heme: Anemia, thrombocytopenia s/p 2 unit of prbc Thrombocytopenia, resolved ID: Leukocytosis Blood cultures pending, previous cultures negative Low grade fevers, Started on Zosyn ID following GI: Diarrhea, resolved F.E.N. Fluids: feeds via NGT Electrolytes: monitor with daily labs Nutrition: tube feeds Prophy: GI: deferred DVT: SCDs bilaterally Dispositon: full code Visit type - Emergency Visit Emergency Visit: Yes ED Registration Date: 08/29/17 Care time: The patient presented to the Emergency Department on the above date and was hospitalized for further evaluation of their emergent condition. - New Patient This patient is new to me today: No - Critical Care Critical Care patient: Yes Total Critical Care Time (in minutes): 30 Critical Care Statement: The care of this patient involved high complexity decision making to prevent further life threatening deterioration of the patient 's condition and/or to evaluate & treat vital organ system(s) failure or risk of failure.
[2017-09-04 15:38] LABS: PLEURAL FLUID COLOR RED
[2017-09-04] MEDS: CARVEDILOL 6.25 MG TABLET (FP) PO SCH ×2 (16:20→21:19)
[2017-09-04] MEDS: MIDAZOLAM 100 MG in SODIUM CHLORIDE 100 ML IVPB SCH (16:23)
[2017-09-04 16:48] LABS: GLUCOSE,PLEURAL FLUID 70.173
--- NOTE | 2017-09-04 17:46 | CONSULT ---
Consult Consult Specialty:: Thoracic Surgery Referred by:: ICU team Reason for Consultation:: Left pleural effusion. - History of Present Illness Chief Complaint: Shortness of breath History of Present Illness: 22M autistic nonverbal, p/w respiratory distress and diarrhea. CT A/P shows small left effusion. Pt has fevers and increasing oxygen requirements. Effusion grows significantly, fevers, requires intubation and goes into renal failure. CT chest tube today drains serosanguineous fluid up to 2L. CXR shows some reexpansion of left lung. - History Source History Provided By: Family Member Limitations to Obtaining History: Intubated - Past Medical History FOREIGN DIPLOMAT: Yes: Other (autism) Cardio/Vascular: Yes: HTN Renal/: Yes: Renal Inusuff - Past Surgical History Past Surgical History: Yes: Hernia Repair - Alcohol/Substance Use Hx Alcohol Use: No - Smoking History Smoking history: Never smoked Have you smoked in the past 12 months: No Aproximately how many cigarettes per day: 0 Home Medications - Allergies Allergies/Adverse Reactions: Allergies Allergy/AdvReac Type Severity Reaction Status Date / Time cefprozil [From Cefzil] Allergy Intermediate Rash Verified 08/29/17 10:26 - Home Medications Home Medications: Ambulatory Orders Divalproex [Depakote -] 250 mg PO DAILY 01/22/16 Family Disease History - Family Disease History Family Disease History: Other: Father (htn) Physical Exam Vital Signs: Vital Signs Temperature 97.7 F 09/04/17 17:00 Pulse Rate 98 H 09/04/17 17:00 Respiratory Rate 15 09/04/17 17:00 Blood Pressure 161/92 09/04/17 17:00 O2 Sat by Pulse Oximetry (%) 91 L 09/04/17 12:55 Constitutional: Yes: Well Nourished Eyes: Yes: WNL Cardiovascular: Yes: Tachycardia Respiratory: Yes: Mechanically Ventilated Edema: No Labs: CBC, BMP 09/04/17 06:00 09/04/17 06:00 Imaging - Results Chest X-ray: Image Reviewed (Left lung aerating better now.) Assessment/Plan Left effusion: Likely parapneumonic/?aspiration/doubt esophageal perf based on imaging and amylase of fluid Will observe reexpansion and hopeful decrease of sepsis May need VATS (at this point appears will not as expanding well) F/U cx's.
[2017-09-04] MEDS ORDERED: SODIUM CHLORIDE 250 ML IV PRN (18:05)
[2017-09-04] MEDS: CHLORHEXIDINE GLUCONATE 4% CLEANSER FOR DECOLONIZATION TP SCH (21:20)
[2017-09-04 21:49] LABS: ANION GAP 10 (8-16); BLOOD UREA NITROGEN 21 mg/dL (7-18); CALCIUM 7.9 mg/dL (8.5-10.1); CHLORIDE 98 mmol/L (98-107); CO2 33 mmol/L (21-32); CREATININE 4.3 mg/dL (0.7-1.3); GLUCOSE,RANDOM 110 mg/dL (74-106); POTASSIUM 3.8 mmol/L (3.5-5.1); SODIUM 141 mmol/L (136-145)
[2017-09-04 22:35] LABS: PLEURAL FLUID NEUTROPHIL 48 %
[2017-09-04 22:36] LABS: PLEURAL FLUID LYMPHOCYTES 20 %; PLEURAL FLUID MACROPHAGES 18 %; PLEURAL FLUID MESOTHELIAL 5 %; PLEURAL FLUID MONOCYTE 9 %
[2017-09-05 00:09] LABS: ANTI-DNAse B 106 U/mL (0-120)
[2017-09-05] MEDS ORDERED: PIPERACILLIN/TAZOBACTAM 2.25 GM VIAL IVPB ONE ×3 (01:13→17:14)
[2017-09-05] MEDS: PIPERACILLIN/TAZOB 2.25 GM 2.25 GM in DEXTROSE 5%-WATER - 50 ML IVPB SCH ×3 (01:15→17:20)
[2017-09-05] MEDS: DEXTROSE 5% IVPB SCH ×4 (01:16→18:28)
[2017-09-05] MEDS: WATER IVPB SCH ×4 (01:16→18:28)
[2017-09-05] MEDS: FENTANYL IVPB SCH ×4 (01:16→18:28)
[2017-09-05] MEDS: PROPOFOL 1,000,000 MCG/100 ML VIAL IVPB SCH ×4 (01:16→21:00)
[2017-09-05] MEDS ORDERED: HEMOQUE TEST 1 EACH EACH ONE (02:23)
[2017-09-05] MEDS: hydrALAZINE HCL 50 MG TABLET (FP) PO SCH ×3 (05:18→21:02)
[2017-09-05] MEDS: METOPROLOL TARTRATE 5 MG/5 ML VIAL IVPUSH PRN (05:18)
[2017-09-05] MEDS: MIDAZOLAM 100 MG in SODIUM CHLORIDE 100 ML IVPB SCH ×2 (05:21→16:15)
--- NOTE | 2017-09-05 06:44 | PN ---
Progress Note, Physician Chief Complaint: ID Alert on the ventilator 60%FIO2 Zosyn continues empirically PNA Afebrile Seen by thoracic surgery - Current Medication List Current Medications: Active Medications Acetaminophen (Tylenol -) 650 mg PO Q6H PRN PRN Reason: fever Last Admin: 09/04/17 02:40 Dose: 650 mg Albuterol/Ipratropium (Duoneb -) 1 amp NEB RQID [facility] Last Admin: 09/04/17 20:55 Dose: Not Given Amino Acids (Prosource No Carb Liquid Pkt) 30 ml NGT DAILY [facility] Last Admin: 09/04/17 10:19 Dose: 30 ml Amlodipine Besylate (Norvasc -) 10 mg PO DAILY [facility] Last Admin: 09/04/17 09:24 Dose: 10 mg Carvedilol (Coreg -) 6.25 mg PO BID [facility] Last Admin: 09/04/17 21:19 Dose: 6.25 mg Chlorhexidine Gluconate (Hibiclens For Decolonization -) 1 applic TP HS [facility] Last Admin: 09/04/17 21:20 Dose: 1 applic Docusate Sodium (Colace Liquid -) 100 mg NGT TID PRN PRN Reason: CONSTIPATION Hydralazine HCl (Apresoline -) 50 mg PO TID [facility] Last Admin: 09/05/17 05:18 Dose: 50 mg Piperacillin Sod/Tazobactam (Sod 2.25 gm/ Dextrose) 50 mls @ 100 mls/hr IVPB Q8H-IV LANE PRN Reason: Protocol Last Admin: 09/05/17 01:15 Dose: 100 mls/hr Propofol (Diprivan -) 1,000,000 mcg in 100 mls @ 2.668 mls/hr IVPB TITR LANE; 5 MCG/KG/MIN PRN Reason: Protocol Last Admin: 09/05/17 05:19 Dose: 40 mcg/kg/min, 21.344 mls/hr Fentanyl 1,000 mcg/ Dextrose 100 mls @ 5 mls/hr IVPB TITR LANE; 50 MCG/HR PRN Reason: Protocol Last Admin: 09/05/17 01:16 Dose: 150 mcg/hr, 15 mls/hr Sodium Chloride (Normal Saline -) 250 mls @ 3,000 mls/hr IV PRN PRN PRN Reason: Hypotension during Dialysis Stop: 09/05/17 18:04 Midazolam HCl 100 mg/ Sodium (Chloride) 100 mls @ 2 mls/hr IVPB TITR LANE; 2 MG/ HR PRN Reason: Protocol Last Admin: 09/05/17 05:21 Dose: 8 mg/hr, 8 mls/hr Lacosamide (Vimpat -) 100 mg PO BID [facility] Last Admin: 09/04/17 21:19 Dose: 100 mg Metoprolol Tartrate (Lopressor Injection -) 5 mg IVPUSH Q4H PRN PRN Reason: HYPERTENSION Last Admin: 09/05/17 05:18 Dose: 5 mg Pantoprazole Sodium (Protonix Iv) 40 mg IVPUSH DAILY [facility] Last Admin: 09/04/17 09:25 Dose: 40 mg Polyethylene Glycol (Miralax (For Daily Use) -) 17 gm NGT DAILY [facility] Last Admin: 09/04/17 10:19 Dose: 17 grams - Objective Vital Signs: Vital Signs Temperature 97.2 F L 09/05/17 05:00 Pulse Rate 95 H 09/05/17 05:18 Respiratory Rate 20 09/05/17 05:00 Blood Pressure 184/121 09/05/17 05:18 O2 Sat by Pulse Oximetry (%) 96 09/04/17 22:00 Constitutional: Yes: Other (INtubated) Cardiovascular: Yes: S1, S2 Respiratory: Yes: WNL, Regular, CTA Bilaterally, Rhonchi Gastrointestinal: Yes: WNL, Normal Bowel Sounds, Soft. No: Tenderness, Tenderness, Rebound Edema: Yes (Swelling periphery) Labs: INR, PTT INR 1.02 (0.82-1.09) 09/04/17 06:00 Fibrinogen 579.0 mg/dL (238-498) H 08/29/17 20:00 Problem List - Problems (1) Acute renal failure Code(s): N17.9 - ACUTE KIDNEY FAILURE, UNSPECIFIED Qualifiers: Acute renal failure type: unspecified Qualified Code(s): N17.9 - Acute kidney failure, unspecified (2) Hypertensive urgency Code(s): I16.0 - HYPERTENSIVE URGENCY (3) Sepsis Code(s): A41.9 - SEPSIS, UNSPECIFIED ORGANISM Qualifiers: Sepsis type: sepsis due to unspecified organism Qualified Code(s): A41.9 - Sepsis, unspecified organism Assessment/Plan Microbiology 09/02/17 18:00 Urine - Urine Clean Catch Urine Culture - Final NO GROWTH OBTAINED 09/02/17 16:14 Pleural Fluid Gram Stain - Final 09/04/17 11:45 Pleural Fluid VANESSA Preparation - Preliminary 09/04/17 11:45 Pleural Fluid Fungal Culture - Preliminary 09/02/17 16:20 Blood - Peripheral Venous Blood Culture - Preliminary NO GROWTH OBTAINED AFTER 24 HOURS, INCUBATION TO CONTINUE FOR 4 DAYS. 09/02/17 16:14 Pleural Fluid Body Fluid Culture - Preliminary NO AEROBIC GROWTH, 24 HRS Laboratory Tests 09/04/17 09/04/17 09/05/17 06:00 06:00 06:15 WBC 14.2 H Pending Hgb 7.9 L D Pending Hct 23.0 L Pending Neutrophils % 63.8 Lymphocytes % 19.0 D Monocytes % 14.0 H Eosinophils % 2.8 D Total Bilirubin 0.2 AST 22 D ALT 13 D Alkaline Phosphatase 72 LD Total 319 H Assessment Respiratory failure now intubated Pneumonia with parapneumonic effusion afebrile now on antibiotic Acute renal failure ? of glomerulonephritis considered Severe anemia hemolyisis Autism Plan Continue current antibiotic Chest xray today reviewed shows right effusion better then before ( chest tube) kidney biopsy ?
[2017-09-05 06:58] LABS: ALBUMIN 1.4 g/dl (3.4-5.0); ANION GAP 11 (8-16); BLOOD UREA NITROGEN 31 mg/dL (7-18); CALCIUM 8.5 mg/dL (8.5-10.1); CHLORIDE 96 mmol/L (98-107); CO2 32 mmol/L (21-32); GLUCOSE,RANDOM 87 mg/dL (74-106); MAGNESIUM 2.2 mg/dL (1.8-2.4); POTASSIUM 4.8 mmol/L (3.5-5.1); SODIUM 139 mmol/L (136-145)
[2017-09-05 07:01] LABS: ALK PHOS 89 U/L (45-117); BILIRUBIN,TOTAL 0.3 mg/dL (0.2-1.0); CREATININE 6.3 mg/dL (0.7-1.3); LDH 285 U/L (87-241); PHOSPHOROUS 7.8 mg/dL (2.5-4.9); SGOT/AST 22 U/L (15-37); SGPT/ALT 15 U/L (12-78); TOT PROT 5.2 g/dl (6.4-8.2)
[2017-09-05] MEDS: ALBUTEROL SO4 2.5/IPRATROPIUM 0.5 INH SOL 3 ML VIAL.NEB. NEB SCH ×4 (08:45→21:41)
[2017-09-05] MEDS ORDERED: DEXTROSE 5%-WATER - 50 ML IVPB ONE ×2 (09:20→17:14)
[2017-09-05] MEDS: amLODIPine BESYLATE 10 MG TABLET (FP) PO SCH (09:23)
[2017-09-05] MEDS: LACOSAMIDE 50 MG TABLET PO SCH ×2 (09:23→21:02)
[2017-09-05] MEDS: AMINO ACIDS/PROTEIN HYDROLYS 30 ML LIQUID.PKT NGT SCH (09:23)
[2017-09-05] MEDS: CARVEDILOL 6.25 MG TABLET (FP) PO SCH (09:24)
[2017-09-05] MEDS: PANTOPRAZOLE SODIUM 40 MG VIAL IVPUSH SCH (09:24)
--- NOTE | 2017-09-05 09:33 | PN ---
Physical Exam: SUBJECTIVE: Patient seen and examined in ICU. He is intubated, sedated 8 versend , 40mcg propofol, fentanyl 125mcg mother at bedside. Events: - Ruiz removed yesterday - For HD again today - CXR noted, improved L side - Afebrile OBJECTIVE: Vital Signs Period Temp Pulse Resp BP Sys/Mora Pulse Ox Last 24 Hr 96.6 F-100.0 F 89-114 12-25 145-187/83-125 91-99 PE Neuro: sedated HEENT: NGT Pulm: diminished, intubated, L sided chest tube - serous drainage CV: s1 s2 rrr Abd: s nt nd +bs Ext: b/l UE edema + 2, pedal edema + 2 VENT: AC/12/400/60/5 Laboratory Results - last 24 hr 09/04/17 09/05/17 09/05/17 20:50 06:15 06:15 Retic Count 3.57 H Sodium 141 139 Potassium 3.8 D 4.8 D Chloride 98 96 L Carbon Dioxide 33 H 32 Anion Gap 10 11 BUN 21 H D 31 H D Creatinine 4.3 H D 6.3 H D Creat Clearance w eGFR 11.07 Random Glucose 110 H D 87 D Calcium 7.9 L 8.5 Phosphorus 7.8 H Magnesium 2.2 Total Bilirubin 0.3 D AST 22 ALT 15 Alkaline Phosphatase 89 D LD Total 285 H Total Protein 5.2 L Albumin 1.4 L Pleural Fluid Source Pleural Color Pleural Appearance Pleural WBC Pleural RBC Pleural Neutrophils Pleural Lymphocytes Pleural Monocytes Pleural Macrophages Pleural Mesothelial Pleural Total Protein Pleural Albumin Pleural LDH Pleural Glucose Pleural Amylase Pleural Triglycerides Anti-DNase B (Strep) Direct Antiglob Test 09/02/17 05:50 Anti-DNase B (Strep) 106 Active Medications Generic Name Dose Route Start Last Admin Trade Name Freq PRN Reason Stop Dose Admin Acetaminophen 650 mg 09/01/17 17:04 09/04/17 02:40 Tylenol - PO 650 mg Q6H PRN Administration fever Albuterol/Ipratropium 1 amp 09/03/17 08:19 09/05/17 08:45 Duoneb - NEB [address] Administration Amino Acids 30 ml 09/03/17 16:15 09/05/17 09:23 Prosource No Carb Liquid Pkt NGT [address] Administration Amlodipine Besylate 10 mg 09/03/17 19:00 09/05/17 09:23 Norvasc - PO [address] Administration Carvedilol 6.25 mg 09/04/17 16:00 09/05/17 09:24 Coreg - PO 6.[address] Administration Chlorhexidine Gluconate 1 applic 08/29/17 22:00 09/04/17 21:20 Hibiclens For Decolonization - TP [address] Administration Docusate Sodium 100 mg 09/04/17 10:00 Colace Liquid - NGT TID PRN CONSTIPATION Hydralazine HCl 50 mg 09/04/17 13:32 09/05/17 05:18 Apresoline - PO [address] Administration Piperacillin Sod/Tazobactam 50 mls @ 100 mls/hr 09/02/17 10:00 09/05/17 01:15 Sod 2.25 gm/ Dextrose IVPB 100 mls/hr Q8H-IV LANE Administration Protocol Propofol 1,000,000 mcg in 100 mls @ 2.668 mls/hr 09/02/17 21:15 09/05/17 09: 05 Diprivan - IVPB 40 mcg/kg/min TITR LANE 21.344 mls/hr Protocol Administration 5 MCG/KG/MIN Fentanyl 1,000 mcg/ Dextrose 100 mls @ 5 mls/hr 09/04/17 13:39 09/05/17 01:16 IVPB 150 mcg/hr TITR LANE 15 mls/hr Protocol Administration 50 MCG/HR Sodium Chloride 250 mls @ 3,000 mls/hr 09/04/17 18:05 Normal Saline - IV 09/05/17 18:04 PRN PRN Hypotension during Dialysis Midazolam HCl 100 mg/ Sodium 100 mls @ 2 mls/hr 09/04/17 16:15 09/05/17 05:21 Chloride IVPB 8 mg/hr TITR LANE 8 mls/hr Protocol Administration 2 MG/HR Lacosamide 100 mg 08/30/17 22:00 09/05/17 09:23 Vimpat - PO [address] Administration Metoprolol Tartrate 5 mg 09/03/17 14:46 09/05/17 05:18 Lopressor Injection - IVPUSH 5 mg Q4H PRN Administration HYPERTENSION Pantoprazole Sodium 40 mg 09/03/17 13:00 09/05/17 09:24 Protonix Iv IVPUSH [address] Administration Polyethylene Glycol 17 gm 09/03/17 20:15 09/04/17 10:19 Miralax (For Daily Use) - NGT [address] Administration Microbiology 09/04/17 11:45 Body Fluid Culture - Preliminary Pleural Fluid Group D Strep Or Entero Coccus Staphylococcus Latex Coag Pos 09/01/17 15:00 Blood Culture - Preliminary Blood - Central Line NO GROWTH OBTAINED AFTER 72 HOURS, INCUBATION TO CONTINUE FOR 2 DAYS. 09/01/17 15:00 Blood Culture - Preliminary Blood - Central Line NO GROWTH OBTAINED AFTER 72 HOURS, INCUBATION TO CONTINUE FOR 2 DAYS. 09/04/17 11:45 VANESSA Preparation - Preliminary Pleural Fluid Fungal Culture - Preliminary 09/02/17 16:20 Blood Culture - Preliminary Blood - Peripheral Venous NO GROWTH OBTAINED AFTER 24 HOURS, INCUBATION TO CONTINUE FOR 4 DAYS. 09/02/17 16:14 Gram Stain - Final Pleural Fluid Body Fluid Culture - Preliminary NO AEROBIC GROWTH, 24 HRS 09/02/17 18:00 Urine Culture - Final Urine - Urine Clean Catch NO GROWTH OBTAINED Assessment: 22 year old male with pmhx of autism, epilepsy, HTN, presented with weakness, dyspnea, diarrhea, found to have hypertensive urgency with acute renal failure and metabolic disarray. Hospital course complicated by acute respiratory failure, requiring intubation and emergent HD. Plan: 1. Acute hypoxic respiratory failure - Remains intubated, requiring high levels of oxygen - Taper fio2 spo2 >90% 2. Left pleural effusion with loculation, s/p thoracentesis 09/02 - ? parapneumonic vs aspiration - Follow cultures - Pigtail placed yesterday 09/04 - Serial cxr's - Possibly VATS if no expansion 3. Severe sepsis due to PNA - Continue zosyn per ID 4. Acute Renal failure, metabolic disarray - For HD again today - Transfuse on HD - Renal following 5. HTN urgency - HD today per renal - Hydralazine 50mg TID - Coreg 6.25mg BID - Norvasc 10mg daily 6. Epilepsy - Vimpat 100mg BID 7. Acute blood loss anemia - AM hgb pending - Transfuse 2uprbc 09/03 8. Thrombocytopenia - Resolved 9. Nutrition - Tube feeds 10. DVT - SCDs, hold chemical ac for bleeding Visit type - Emergency Visit Emergency Visit: Yes ED Registration Date: 08/29/17 Care time: The patient presented to the Emergency Department on the above date and was hospitalized for further evaluation of their emergent condition. - New Patient This patient is new to me today: Yes Date on this admission: 09/06/17 - Critical Care Critical Care patient: Yes Total Critical Care Time (in minutes): 37 Critical Care Statement: The care of this patient involved high complexity decision making to prevent further life threatening deterioration of the patient 's condition and/or to evaluate & treat vital organ system(s) failure or risk of failure.
[2017-09-05 11:46] LABS: HEMATOCRIT 27.2 % (35.4-49); MCH 28.9 pg (25.7-33.7); MCHC 33.2 g/dl (32.0-35.9); MEAN CELL VOLUME 87.3 fl (80-96); PLATELET COUNT 476 K/MM3 (134-434); RBC 3.11 M/mm3 (4.00-5.60); RDW 16.1 % (11.9-15.9); WHITE BLOOD COUNT 11.9 K/mm3 (4.0-10.0)
[2017-09-05] MEDS: POLYETHYLENE GLYCOL 3350 119 GM BTL NGT SCH (12:30)
--- NOTE | 2017-09-05 12:55 | PN ---
Progress Note, Physician History of Present Illness: Pt seen and examined at bedside. He tolerated HD yesterday. He remains intubated in the ICU. - Current Medication List Current Medications: Active Medications Acetaminophen (Tylenol -) 650 mg PO Q6H PRN PRN Reason: fever Last Admin: 09/04/17 02:40 Dose: 650 mg Albuterol/Ipratropium (Duoneb -) 1 amp NEB RQID [facility] Last Admin: 09/05/17 12:19 Dose: 1 amp Amino Acids (Prosource No Carb Liquid Pkt) 30 ml NGT DAILY [facility] Last Admin: 09/05/17 09:23 Dose: 30 ml Amlodipine Besylate (Norvasc -) 10 mg PO DAILY [facility] Last Admin: 09/05/17 09:23 Dose: 10 mg Carvedilol (Coreg -) 6.25 mg PO BID [facility] Last Admin: 09/05/17 09:24 Dose: 6.25 mg Chlorhexidine Gluconate (Hibiclens For Decolonization -) 1 applic TP HS [facility] Last Admin: 09/04/17 21:20 Dose: 1 applic Docusate Sodium (Colace Liquid -) 100 mg NGT TID PRN PRN Reason: CONSTIPATION Hydralazine HCl (Apresoline -) 50 mg PO TID [facility] Last Admin: 09/05/17 05:18 Dose: 50 mg Piperacillin Sod/Tazobactam (Sod 2.25 gm/ Dextrose) 50 mls @ 100 mls/hr IVPB Q8H-IV LANE PRN Reason: Protocol Last Admin: 09/05/17 09:30 Dose: 100 mls/hr Propofol (Diprivan -) 1,000,000 mcg in 100 mls @ 2.668 mls/hr IVPB TITR LANE; 5 MCG/KG/MIN PRN Reason: Protocol Last Admin: 09/05/17 09:05 Dose: 40 mcg/kg/min, 21.344 mls/hr Fentanyl 1,000 mcg/ Dextrose 100 mls @ 5 mls/hr IVPB TITR LANE; 50 MCG/HR PRN Reason: Protocol Last Admin: 09/05/17 11:08 Dose: 150 mcg/hr, 15 mls/hr Sodium Chloride (Normal Saline -) 250 mls @ 3,000 mls/hr IV PRN PRN PRN Reason: Hypotension during Dialysis Stop: 09/05/17 18:04 Midazolam HCl 100 mg/ Sodium (Chloride) 100 mls @ 2 mls/hr IVPB TITR LANE; 2 MG/ HR PRN Reason: Protocol Last Titration: 09/05/17 12:15 Dose: 4 mg/hr, 4 mls/hr Lacosamide (Vimpat -) 100 mg PO BID [facility] Last Admin: 09/05/17 09:23 Dose: 100 mg Metoprolol Tartrate (Lopressor Injection -) 5 mg IVPUSH Q4H PRN PRN Reason: HYPERTENSION Last Admin: 09/05/17 05:18 Dose: 5 mg Pantoprazole Sodium (Protonix Iv) 40 mg IVPUSH DAILY [facility] Last Admin: 09/05/17 09:24 Dose: 40 mg Polyethylene Glycol (Miralax (For Daily Use) -) 17 gm NGT DAILY [facility] Last Admin: 09/05/17 12:30 Dose: 17 grams - Objective Vital Signs: Vital Signs Temperature 98.1 F 09/05/17 12:00 Pulse Rate 95 H 09/05/17 12:00 Respiratory Rate 16 09/05/17 12:19 Blood Pressure 150/88 09/05/17 12:00 O2 Sat by Pulse Oximetry (%) 99 09/05/17 10:00 Constitutional: Yes: Calm Eyes: Yes: Conjunctiva Clear HENT: Yes: Atraumatic Cardiovascular: Yes: S1, S2 Respiratory: Yes: Mechanically Ventilated, Other (chest tube) Gastrointestinal: Yes: Soft Genitourinary: Yes: Ruiz Present Musculoskeletal: Yes: Muscle Weakness Edema: Yes Edema: LUE: 1+, RUE: 1+, LLE: 1+, RLE: 1+ Integumentary: Yes: WNL Neurological: Yes: Lethargy Labs: CBC, BMP 09/05/17 06:15 09/05/17 06:15 INR, PTT INR 1.02 (0.82-1.09) 09/04/17 06:00 Fibrinogen 579.0 mg/dL (238-498) H 08/29/17 20:00 - ....Imaging Chest X-ray: Report Reviewed Problem List - Problems (1) Acute renal failure Code(s): N17.9 - ACUTE KIDNEY FAILURE, UNSPECIFIED Qualifiers: Acute renal failure type: unspecified Qualified Code(s): N17.9 - Acute kidney failure, unspecified (2) Anemia Code(s): D64.9 - ANEMIA, UNSPECIFIED (3) Hyperkalemia Code(s): E87.5 - HYPERKALEMIA (4) Hypertensive urgency Code(s): I16.0 - HYPERTENSIVE URGENCY (5) Sepsis Code(s): A41.9 - SEPSIS, UNSPECIFIED ORGANISM Qualifiers: Sepsis type: sepsis due to unspecified organism Qualified Code(s): A41.9 - Sepsis, unspecified organism (6) Thrombocytopenia Code(s): D69.6 - THROMBOCYTOPENIA, UNSPECIFIED (7) Seizure Code(s): R56.9 - UNSPECIFIED CONVULSIONS Assessment/Plan Current Medications Generic Name Dose Route Start Last Admin Trade Name Freq PRN Reason Stop Dose Admin Acetaminophen 650 mg 09/01/17 17:04 09/04/17 02:40 Tylenol - PO 650 mg Q6H PRN Administration fever Albuterol/Ipratropium 1 amp 09/03/17 08:19 09/05/17 12:19 Duoneb - NEB [address] Administration Amino Acids 30 ml 09/03/17 16:15 09/05/17 09:23 Prosource No Carb Liquid Pkt NGT [address] Administration Amlodipine Besylate 10 mg 09/03/17 19:00 09/05/17 09:23 Norvasc - PO [address] Administration Carvedilol 6.25 mg 09/04/17 16:00 09/05/17 09:24 Coreg - PO 6.[address] Administration Chlorhexidine Gluconate 1 applic 08/29/17 22:00 09/04/17 21:20 Hibiclens For Decolonization - TP [address] Administration Docusate Sodium 100 mg 09/04/17 10:00 Colace Liquid - NGT TID PRN CONSTIPATION Hydralazine HCl 50 mg 09/04/17 13:32 09/05/17 05:18 Apresoline - PO [address] Administration Piperacillin Sod/Tazobactam 50 mls @ 100 mls/hr 09/02/17 10:00 09/05/17 09:30 Sod 2.25 gm/ Dextrose IVPB 100 mls/hr Q8H-IV LANE Administration Protocol Propofol 1,000,000 mcg in 100 mls @ 2.668 mls/hr 09/02/17 21:15 09/05/17 09: 05 Diprivan - IVPB 40 mcg/kg/min TITR LANE 21.344 mls/hr Protocol Administration 5 MCG/KG/MIN Fentanyl 1,000 mcg/ Dextrose 100 mls @ 5 mls/hr 09/04/17 13:39 09/05/17 11:08 IVPB 150 mcg/hr TITR LANE 15 mls/hr Protocol Administration 50 MCG/HR Sodium Chloride 250 mls @ 3,000 mls/hr 09/04/17 18:05 Normal Saline - IV 09/05/17 18:04 PRN PRN Hypotension during Dialysis Midazolam HCl 100 mg/ Sodium 100 mls @ 2 mls/hr 09/04/17 16:15 09/05/17 12:15 Chloride IVPB 4 mg/hr TITR LANE 4 mls/hr Protocol Titration 2 MG/HR Lacosamide 100 mg 08/30/17 22:00 09/05/17 09:23 Vimpat - PO [address] Administration Metoprolol Tartrate 5 mg 09/03/17 14:46 09/05/17 05:18 Lopressor Injection - IVPUSH 5 mg Q4H PRN Administration HYPERTENSION Pantoprazole Sodium 40 mg 09/03/17 13:00 09/05/17 09:24 Protonix Iv IVPUSH [address] Administration Polyethylene Glycol 17 gm 09/03/17 20:15 09/05/17 12:30 Miralax (For Daily Use) - NGT [address] Administration Laboratory Tests 08/29/17 09/02/17 20:00 05:50 Double Strand DNA Ab <1 Anti-DNase B (Strep) 106 Impression 1. ANNA 2. HTN urgency/emergency 3. hyperkalemia 4. hyponatremia 5. autism 6. hx of seizure 7. anemia 8. CKD 9. lactic acidosis improving 10. thrombocytopenia 11. hyperkalemia 12. pleural effusion 13. acute resp failure requiring intubation Plan - pt tolerated HD last night - will arrange for HD tomorrow - chest tube care - cxr reviewed - renal workup is in progress - pt remains oliguric - follow serologies - discussed with ICU team - kidney biopsy once more stable - monitor platelets - keep in ICU - will follow closely Dr Velasquez
--- NOTE | 2017-09-05 13:27 | PN ---
Teaching Attending Note Name of Resident: Rashel Iniguez ATTENDING PHYSICIAN STATEMENT I saw and evaluated the patient. I reviewed the resident's note and discussed the case with the resident. I agree with the resident's findings and plan as documented. SUBJECTIVE: Pt seen and examined in the ICU. s/p pigtail placement with drainage of 2.5L so far, fluid now serous. Remains intubated, sedated. OBJECTIVE: Last Vital Signs Temp Pulse Resp BP Pulse Ox 98.1 F 96 H 16 148/87 99 09/05/17 12:00 09/05/17 12:00 09/05/17 12:19 09/05/17 12:00 09/05/17 10:00 Intake & Output 09/02/17 09/03/17 09/04/17 09/05/17 23:59 23:59 23:59 23:59 Intake Total 1310 1694 2476 1122.8 Output Total 95 30 2610 60 Balance 1215 1664 -134 1062.8 Weight 88.932 kg 92.306 kg 93.44 kg 88.082 kg Gen: intubated, sedated Heart: RRR Lung: decreased breath sounds left base Abd: soft, nontender Ext: + edema Chest tube: serous drainage, no air leak CBC, BMP 09/05/17 06:15 09/05/17 06:15 Active Medications Acetaminophen (Tylenol -) 650 mg PO Q6H PRN PRN Reason: fever Last Admin: 09/04/17 02:40 Dose: 650 mg Albuterol/Ipratropium (Duoneb -) 1 amp NEB RQID [facility] Last Admin: 09/05/17 12:19 Dose: 1 amp Amino Acids (Prosource No Carb Liquid Pkt) 30 ml NGT DAILY [facility] Last Admin: 09/05/17 09:23 Dose: 30 ml Amlodipine Besylate (Norvasc -) 10 mg PO DAILY [facility] Last Admin: 09/05/17 09:23 Dose: 10 mg Carvedilol (Coreg -) 6.25 mg PO BID [facility] Last Admin: 09/05/17 09:24 Dose: 6.25 mg Chlorhexidine Gluconate (Hibiclens For Decolonization -) 1 applic TP HS [facility] Last Admin: 09/04/17 21:20 Dose: 1 applic Docusate Sodium (Colace Liquid -) 100 mg NGT TID PRN PRN Reason: CONSTIPATION Hydralazine HCl (Apresoline -) 50 mg PO TID [facility] Last Admin: 09/05/17 05:18 Dose: 50 mg Piperacillin Sod/Tazobactam (Sod 2.25 gm/ Dextrose) 50 mls @ 100 mls/hr IVPB Q8H-IV LANE PRN Reason: Protocol Last Admin: 09/05/17 09:30 Dose: 100 mls/hr Propofol (Diprivan -) 1,000,000 mcg in 100 mls @ 2.668 mls/hr IVPB TITR LANE; 5 MCG/KG/MIN PRN Reason: Protocol Last Admin: 09/05/17 09:05 Dose: 40 mcg/kg/min, 21.344 mls/hr Fentanyl 1,000 mcg/ Dextrose 100 mls @ 5 mls/hr IVPB TITR LANE; 50 MCG/HR PRN Reason: Protocol Last Admin: 09/05/17 11:08 Dose: 150 mcg/hr, 15 mls/hr Sodium Chloride (Normal Saline -) 250 mls @ 3,000 mls/hr IV PRN PRN PRN Reason: Hypotension during Dialysis Stop: 09/05/17 18:04 Midazolam HCl 100 mg/ Sodium (Chloride) 100 mls @ 2 mls/hr IVPB TITR LANE; 2 MG/ HR PRN Reason: Protocol Last Titration: 09/05/17 12:15 Dose: 4 mg/hr, 4 mls/hr Lacosamide (Vimpat -) 100 mg PO BID [facility] Last Admin: 09/05/17 09:23 Dose: 100 mg Metoprolol Tartrate (Lopressor Injection -) 5 mg IVPUSH Q4H PRN PRN Reason: HYPERTENSION Last Admin: 09/05/17 05:18 Dose: 5 mg Pantoprazole Sodium (Protonix Iv) 40 mg IVPUSH DAILY [facility] Last Admin: 09/05/17 09:24 Dose: 40 mg Polyethylene Glycol (Miralax (For Daily Use) -) 17 gm NGT DAILY [facility] Last Admin: 09/05/17 12:30 Dose: 17 grams ASSESSMENT AND PLAN: Hypertensive Urgency Acute Kidney Injury requiring HD Acute Hypoxic Respiratory Failure Pneumonia Loculated Pleural Effusion Hyponatremia Severe Sepsis Lactic Acidosis Thrombocytopenia improved Anemia Autism - continue antibiotics - f/u pleural cultures and cytology - thoracic f/u for possible VATS - HD per renal with ultrafiltration - monitor H/H - transfuse PRBC with HD as needed - monitor urine output, creatinine - BP control - taper Fio2 to keep Spo2 >90% - if no thoracic intervention, wean to extubate - enteral feeds - DVT/GI prophylaxis - continue ICU monitoring critical care time spent in reviewing chart, evaluating patient and formulating plan 35 min
[2017-09-05 13:28] LABS: ANISOCYTOSIS 1+; PLATELET ESTIMATE NORMAL
[2017-09-05] MEDS ORDERED: NIFEdipine 10 MG CAPSULE (FP) PO SCH (14:00)
[2017-09-05 14:21] LABS: ATYPICAL pANCA <1:20 titer (Neg:<1:20); C-ANCA <1:20 titer (Neg:<1:20); P-ANCA <1:20 titer (Neg:<1:20); PROTEINASE-3 ANTIBODY <3.5 U/mL (0.0-3.5)
[2017-09-05] MEDS ORDERED: CARVEDILOL 6.25 MG TABLET (FP) PO ONE (15:06)
--- NOTE | 2017-09-05 15:06 | PN ---
Progress Note (short form) - Note Progress Note: cc: htn urgency. S: s/p chest tube placement yesterday by CTS. Drained 2.5 L of fluid. Remained hypertensive. Hydralazine uptitrated to 50 mg TID and carvedilol added. remains hypertensive today. Required IV lopressor this am. still with minimal uop Current Medications Acetaminophen (Tylenol -) 650 mg PO Q6H PRN PRN Reason: fever Last Admin: 09/04/17 02:40 Dose: 650 mg Albuterol/Ipratropium (Duoneb -) 1 amp NEB RQID [facility] Last Admin: 09/05/17 12:19 Dose: 1 amp Amino Acids (Prosource No Carb Liquid Pkt) 30 ml NGT DAILY [facility] Last Admin: 09/05/17 09:23 Dose: 30 ml Amlodipine Besylate (Norvasc -) 10 mg PO DAILY [facility] Last Admin: 09/05/17 09:23 Dose: 10 mg Carvedilol (Coreg -) 6.25 mg PO BID [facility] Last Admin: 09/05/17 09:24 Dose: 6.25 mg Chlorhexidine Gluconate (Hibiclens For Decolonization -) 1 applic TP HS [facility] Last Admin: 09/04/17 21:20 Dose: 1 applic Docusate Sodium (Colace Liquid -) 100 mg NGT TID PRN PRN Reason: CONSTIPATION Hydralazine HCl (Apresoline -) 50 mg PO TID [facility] Last Admin: 09/05/17 14:49 Dose: 50 mg Piperacillin Sod/Tazobactam (Sod 2.25 gm/ Dextrose) 50 mls @ 100 mls/hr IVPB Q8H-IV LANE PRN Reason: Protocol Last Admin: 09/05/17 09:30 Dose: 100 mls/hr Propofol (Diprivan -) 1,000,000 mcg in 100 mls @ 2.668 mls/hr IVPB TITR LANE; 5 MCG/KG/MIN PRN Reason: Protocol Last Admin: 09/05/17 09:05 Dose: 40 mcg/kg/min, 21.344 mls/hr Fentanyl 1,000 mcg/ Dextrose 100 mls @ 5 mls/hr IVPB TITR LANE; 50 MCG/HR PRN Reason: Protocol Last Admin: 09/05/17 14:44 Dose: Not Given Sodium Chloride (Normal Saline -) 250 mls @ 3,000 mls/hr IV PRN PRN PRN Reason: Hypotension during Dialysis Stop: 09/05/17 18:04 Midazolam HCl 100 mg/ Sodium (Chloride) 100 mls @ 2 mls/hr IVPB TITR LANE; 2 MG/ HR PRN Reason: Protocol Last Titration: 09/05/17 13:35 Dose: 8 mg/hr, 8 mls/hr Lacosamide (Vimpat -) 100 mg PO BID [facility] Last Admin: 09/05/17 09:23 Dose: 100 mg Metoprolol Tartrate (Lopressor Injection -) 5 mg IVPUSH Q4H PRN PRN Reason: HYPERTENSION Last Admin: 09/05/17 05:18 Dose: 5 mg Pantoprazole Sodium (Protonix Iv) 40 mg IVPUSH DAILY [facility] Last Admin: 09/05/17 09:24 Dose: 40 mg Polyethylene Glycol (Miralax (For Daily Use) -) 17 gm NGT DAILY [facility] Last Admin: 09/05/17 12:30 Dose: 17 grams pe: Vital Signs - 24 hr 09/04/17 09/04/17 09/04/17 15:00 15:46 16:00 Temperature 98.1 F Pulse Rate 106 H 106 H Respiratory 22 17 Rate Blood Pressure 170/95 178/107 O2 Sat by Pulse Oximetry (%) 09/04/17 09/04/17 09/04/17 17:00 17:11 17:30 Temperature 97.7 F Pulse Rate 98 H 94 H Respiratory 15 18 Rate Blood Pressure 161/92 149/90 O2 Sat by Pulse 95 Oximetry (%) 09/04/17 09/04/17 09/04/17 17:40 18:00 18:10 Temperature 97.7 F Pulse Rate 91 H 92 H 91 H Respiratory 18 17 18 Rate Blood Pressure 145/86 145/86 145/86 O2 Sat by Pulse Oximetry (%) 09/04/17 09/04/17 09/04/17 18:40 18:54 19:00 Temperature Pulse Rate 92 H 92 H Respiratory 18 16 20 Rate Blood Pressure 149/88 147/99 O2 Sat by Pulse Oximetry (%) 09/04/17 09/04/17 09/04/17 19:10 19:40 20:00 Temperature 96.6 F L Pulse Rate 92 H 92 H 102 H Respiratory 18 18 12 Rate Blood Pressure 147/99 152/90 169/102 O2 Sat by Pulse Oximetry (%) 09/04/17 09/04/17 09/04/17 20:10 20:40 21:00 Temperature Pulse Rate 100 H 96 H 92 H Respiratory 18 18 12 Rate Blood Pressure 169/102 154/93 151/89 O2 Sat by Pulse Oximetry (%) 09/04/17 09/04/17 09/04/17 22:00 23:00 23:30 Temperature 96.8 F L Pulse Rate 94 H 96 H Respiratory 12 12 21 Rate Blood Pressure 149/83 155/94 O2 Sat by Pulse 95 Oximetry (%) 09/05/17 09/05/17 09/05/17 00:00 01:00 02:00 Temperature 97.7 F Pulse Rate 92 H 89 90 Respiratory 12 12 14 Rate Blood Pressure 152/90 172/112 159/92 O2 Sat by Pulse Oximetry (%) 09/05/17 09/05/17 09/05/17 02:30 03:00 04:00 Temperature Pulse Rate 90 90 Respiratory 14 16 16 Rate Blood Pressure 166/104 171/108 O2 Sat by Pulse Oximetry (%) 09/05/17 09/05/17 09/05/17 05:00 05:18 06:00 Temperature 97.2 F L 97 F L Pulse Rate 94 H 95 H 95 H Respiratory 20 18 Rate Blood Pressure 184/121 184/121 174/111 O2 Sat by Pulse Oximetry (%) 09/05/17 09/05/17 09/05/17 07:00 07:06 08:00 Temperature Pulse Rate 94 H 92 H Respiratory 16 18 16 Rate Blood Pressure 153/85 152/91 O2 Sat by Pulse Oximetry (%) 09/05/17 09/05/17 09/05/17 09:00 09:20 10:00 Temperature 98.5 F Pulse Rate 92 H 92 H Respiratory 17 25 H 16 Rate Blood Pressure 160/95 O2 Sat by Pulse 98 99 99 Oximetry (%) 09/05/17 09/05/17 09/05/17 12:00 12:19 13:33 Temperature 98.1 F 98 F Pulse Rate 96 H 96 H Respiratory 15 16 15 Rate Blood Pressure 148/87 148/87 O2 Sat by Pulse Oximetry (%) 09/05/17 14:53 Temperature Pulse Rate Respiratory 20 Rate Blood Pressure O2 Sat by Pulse Oximetry (%) Intake & Output 09/03/17 09/04/17 09/05/17 09/06/17 07:59 07:59 07:59 07:59 Intake Total 1488 2326 2428.8 Output Total 95 70 2630 Balance 1393 2256 -201.2 Weight 203 lb 8 oz 206 lb 194 lb 3 oz intubated sedated nad no jvd rrr s1 s2 no mrg mechanical bs. + chest tube. no jaundice diaphoresis pos dp pt trace le edema bl abd nd pos bs CBC, BMP 09/05/17 06:15 09/05/17 06:15 Laboratory Tests 09/04/17 09/05/17 09/05/17 06:00 06:15 06:15 Hgb 7.9 L D Band Neutrophils % 1.1 Magnesium 2.2 Albumin 1.4 L ecg: sr,prolonged qtc, no ischemic changes echo 08/2017: nl lv/rv, no sig valve path cxr: left eff tele: sr a/p: 22 m hx autism, seizures, possible underlying ckd/htn here with ams, respiratory failure/sepsis, anna requiring HD and hypertensive urgency. Cardiac course complicated by mild troponin elevation and prolonged qtc. anna requiring HD: -renal eval in progress, planned for biopsy -currently getting intermittent HD here htn urgency/emergency: -elevated at times -now on nicard gtt. will get po procardia today as well and try to titrate off gtt. - 09/03: no IV access for cardene drip. needs po meds through NG tube --> started norvasc 10, hydral 20 tid. - 09/04 remains htn. Uptitrated hydralazine to 50 tid. This afternoon remains hypertensive. Will add carvedilol 6.25 bid. - 09/05: remains htn. will uptitrate coreg to 12.5 bid. -echo here unremarkable abnl ecg: -prolonged qtc, possibly due to anna -qtc improved on repeat ecg. abnormal troponins - likely increased in setting of ANNA. no concern for acs. anemia: -chronic, per primary team respiratory failure s/p intubation 09/02 - with white out of left lung - 09/04 s/p chest tube placement. cct 35 min
--- NOTE | 2017-09-05 15:25 | PN ---
Physical Exam: SUBJECTIVE: Patient seen and examined No acute events overnight. Drain putting out over 2400cc of fluid. Pt non- verbal at baseline. OBJECTIVE: Vital Signs Period Temp Pulse Resp BP Sys/Mora Pulse Ox Last 24 Hr 96.6 F-98.5 F 89-106 12-25 145-184/83-121 95-99 GENERAL: young male with autism, lying in bed, non-verbal, on vent, sedated HEENT: PEARRLA, EOMI LUNGS: mechanical breath sounds HEART: tachycardia, regular rhythm, no murmurs ABDOMEN: soft, NT, ND EXTREMITIES: 2+ pulses, warm, well-perfused, 1+ edema in all 4 extremities NEUROLOGICAL: EOMI, PEARRLA, unresponsive to commands Laboratory Results - last 24 hr 08/29/17 09/02/17 09/03/17 20:00 05:50 08:03 WBC RBC Hgb Hct MCV MCH MCHC RDW Plt Count MPV Neutrophils % Neutrophils % (Manual) Band Neutrophils % Lymphocytes % Lymphocytes % (Manual) Monocytes % (Manual) Eosinophils % (Manual) Basophils % (Manual) Myelocytes % (Man) Promyelocytes % (Man) Blast Cells % (Manual) Nucleated RBC % Metamyelocytes Hypochromia Platelet Estimate Polychromasia Poikilocytosis Anisocytosis Microcytosis Retic Count Haptoglobin Sodium Potassium Chloride Carbon Dioxide Anion Gap BUN Creatinine Creat Clearance w eGFR Random Glucose Calcium Phosphorus Magnesium Total Bilirubin AST ALT Alkaline Phosphatase LD Total Total Protein Albumin Pleural Fluid Source Pleural Color Pleural Appearance Pleural WBC Pleural RBC Pleural Neutrophils Pleural Lymphocytes Pleural Monocytes Pleural Macrophages Pleural Mesothelial Pleural Total Protein 2.5 Pleural Albumin Pleural LDH Pleural Glucose Pleural Amylase Pleural Triglycerides c-ANCA <1:20 Proteinase 3 (PR3) <3.5 p-ANCA <1:20 Atypical p-ANCA <1:20 Myeloperoxidase Ab <9.0 Anti-DNase B (Strep) 106 Direct Antiglob Test 09/04/17 09/04/17 09/04/17 06:00 11:45 20:50 WBC RBC Hgb Hct MCV MCH MCHC RDW Plt Count MPV Neutrophils % Neutrophils % (Manual) Band Neutrophils % Lymphocytes % Lymphocytes % (Manual) Monocytes % (Manual) Eosinophils % (Manual) Basophils % (Manual) Myelocytes % (Man) Promyelocytes % (Man) Blast Cells % (Manual) Nucleated RBC % Metamyelocytes Hypochromia Platelet Estimate Polychromasia Poikilocytosis Anisocytosis Microcytosis Retic Count Haptoglobin 160 Sodium 141 Potassium 3.8 D Chloride 98 Carbon Dioxide 33 H Anion Gap 10 BUN 21 H D Creatinine 4.3 H D Creat Clearance w eGFR Random Glucose 110 H D Calcium 7.9 L Phosphorus Magnesium Total Bilirubin AST ALT Alkaline Phosphatase LD Total Total Protein Albumin Pleural Fluid Source Pleural Pleural Color Red Pleural Appearance Cloudy Pleural WBC 2722 Pleural RBC 74[address] Pleural Neutrophils 48 Pleural Lymphocytes 20 Pleural Monocytes 9 Pleural Macrophages 18 Pleural Mesothelial 5 Pleural Total Protein 2.900 Pleural Albumin 1 Pleural LDH 467.89 Pleural Glucose 70.173 Pleural Amylase 26.404 Pleural Triglycerides 78 c-ANCA Proteinase 3 (PR3) p-ANCA Atypical p-ANCA Myeloperoxidase Ab Anti-DNase B (Strep) Direct Antiglob Test 09/05/17 09/05/17 09/05/17 06:15 06:15 06:15 WBC 11.9 H RBC 3.11 L Hgb 9.0 L D Hct 27.2 L D MCV 87.3 MCH 28.9 MCHC 33.2 RDW 16.1 H Plt Count 476 H D MPV 7.0 L Neutrophils % No Result Required. Neutrophils % (Manual) 64.6 Band Neutrophils % 1.1 Lymphocytes % No Result Required. Lymphocytes % (Manual) 20.8 Monocytes % (Manual) 6 Eosinophils % (Manual) 5.2 H Basophils % (Manual) 0.0 Myelocytes % (Man) 1 Promyelocytes % (Man) 0 Blast Cells % (Manual) 0 Nucleated RBC % 0 Metamyelocytes 0 Hypochromia 0 Platelet Estimate Normal Polychromasia 1+ Poikilocytosis 1+ Anisocytosis 1+ Microcytosis 1+ Retic Count 3.57 H Haptoglobin Sodium 139 Potassium 4.8 D Chloride 96 L Carbon Dioxide 32 Anion Gap 11 BUN 31 H D Creatinine 6.3 H D Creat Clearance w eGFR 11.07 Random Glucose 87 D Calcium 8.5 Phosphorus 7.8 H Magnesium 2.2 Total Bilirubin 0.3 D AST 22 ALT 15 Alkaline Phosphatase 89 D LD Total 285 H Total Protein 5.2 L Albumin 1.4 L Pleural Fluid Source Pleural Color Pleural Appearance Pleural WBC Pleural RBC Pleural Neutrophils Pleural Lymphocytes Pleural Monocytes Pleural Macrophages Pleural Mesothelial Pleural Total Protein Pleural Albumin Pleural LDH Pleural Glucose Pleural Amylase Pleural Triglycerides c-ANCA Proteinase 3 (PR3) p-ANCA Atypical p-ANCA Myeloperoxidase Ab Anti-DNase B (Strep) Direct Antiglob Test 09/05/17 06:15 WBC RBC Hgb Hct MCV MCH MCHC RDW Plt Count MPV Neutrophils % Neutrophils % (Manual) Band Neutrophils % Lymphocytes % Lymphocytes % (Manual) Monocytes % (Manual) Eosinophils % (Manual) Basophils % (Manual) Myelocytes % (Man) Promyelocytes % (Man) Blast Cells % (Manual) Nucleated RBC % Metamyelocytes Hypochromia Platelet Estimate Polychromasia Poikilocytosis Anisocytosis Microcytosis Retic Count Haptoglobin Sodium Potassium Chloride Carbon Dioxide Anion Gap BUN Creatinine Creat Clearance w eGFR Random Glucose Calcium Phosphorus Magnesium Total Bilirubin AST ALT Alkaline Phosphatase LD Total Total Protein Albumin Pleural Fluid Source Pleural Color Pleural Appearance Pleural WBC Pleural RBC Pleural Neutrophils Pleural Lymphocytes Pleural Monocytes Pleural Macrophages Pleural Mesothelial Pleural Total Protein Pleural Albumin Pleural LDH Pleural Glucose Pleural Amylase Pleural Triglycerides c-ANCA Proteinase 3 (PR3) p-ANCA Atypical p-ANCA Myeloperoxidase Ab Anti-DNase B (Strep) Direct Antiglob Test Negative Active Medications Generic Name Dose Route Start Last Admin Trade Name Freq PRN Reason Stop Dose Admin Acetaminophen 650 mg 09/01/17 17:04 09/04/17 02:40 Tylenol - PO 650 mg Q6H PRN Administration fever Albuterol/Ipratropium 1 amp 09/03/17 08:19 09/05/17 12:19 Duoneb - NEB [address] Administration Amino Acids 30 ml 09/03/17 16:15 09/05/17 09:23 Prosource No Carb Liquid Pkt NGT [address] Administration Amlodipine Besylate 10 mg 09/03/17 19:00 09/05/17 09:23 Norvasc - PO [address] Administration Carvedilol 12.5 mg 09/05/17 22:00 Coreg - PO BID LANE Chlorhexidine Gluconate 1 applic 08/29/17 22:00 09/04/17 21:20 Hibiclens For Decolonization - TP [address] Administration Docusate Sodium 100 mg 09/04/17 10:00 Colace Liquid - NGT TID PRN CONSTIPATION Hydralazine HCl 50 mg 09/04/17 13:32 09/05/17 14:49 Apresoline - PO [address] Administration Piperacillin Sod/Tazobactam 50 mls @ 100 mls/hr 09/02/17 10:00 09/05/17 09:30 Sod 2.25 gm/ Dextrose IVPB 100 mls/hr Q8H-IV LANE Administration Protocol Propofol 1,000,000 mcg in 100 mls @ 2.668 mls/hr 09/02/17 21:15 09/05/17 09: 05 Diprivan - IVPB 40 mcg/kg/min TITR LANE 21.344 mls/hr Protocol Administration 5 MCG/KG/MIN Fentanyl 1,000 mcg/ Dextrose 100 mls @ 5 mls/hr 09/04/17 13:39 09/05/17 14:44 IVPB Not Given TITR LANE Protocol 50 MCG/HR Sodium Chloride 250 mls @ 3,000 mls/hr 09/04/17 18:05 Normal Saline - IV 09/05/17 18:04 PRN PRN Hypotension during Dialysis Midazolam HCl 100 mg/ Sodium 100 mls @ 2 mls/hr 09/04/17 16:15 09/05/17 13:35 Chloride IVPB 8 mg/hr TITR LANE 8 mls/hr Protocol Titration 2 MG/HR Lacosamide 100 mg 08/30/17 22:00 09/05/17 09:23 Vimpat - PO [address] Administration Metoprolol Tartrate 5 mg 09/03/17 14:46 09/05/17 05:18 Lopressor Injection - IVPUSH 5 mg Q4H PRN Administration HYPERTENSION Pantoprazole Sodium 40 mg 09/03/17 13:00 09/05/17 09:24 Protonix Iv IVPUSH [address] Administration Polyethylene Glycol 17 gm 09/03/17 20:15 09/05/17 12:30 Miralax (For Daily Use) - NGT [address] Administration ASSESSMENT/PLAN: 22M w/ hx of autism and seizure disorder who presented with severe HTN, anemia, thrombocytopenia, leukocytosis, hyperkalemia, and ANNA, admitted to ICU. Pt is s/ p PRBCs, platelets, FFP, dialysis, s/p intubation on 09/02, and s/p chest tube placement on 09/04. CV #hypertensive urgency/emergency- unclear etiology, improving -hydralazine 50 TID, coreg 6.25 BID, norvasc 10, PRN lopressor 5mg q4h PRN -monitor MAPs -nephrology on board, recs appreciated. Pt to get another round of HD today -anne in place #troponinemia- likely 2/2 renal failure and demand ischemia from HTN -peaked, no longer trending Resp #acute hypoxic resp failure -pt s/p intubation on 09/02. sedated on propofol, fentanyl, and versed gtt. -CXR: improving left pleural effusion -repeat fluid studies consistent with exudative effusion, likely 2/2 PNA -per Dr. Ivy, no need for VATS considering level of improvement. -plan for extubation afsaneh morning Hematology #anemia and thrombocytopenia -hematology on board, recs appreciated. -Hgb of 9 this am -platelets wnl, 476 ID #sepsis- leukocytosis of 11.9, tachycardia- improving -ID on board, Dr. Moise, recs appreciated. zosyn and vanc -f/u sputum cx -f/u Bcx and Ucx -pleural studies consistent with exudative process. Nephro #hyperkalemia and ANNA -nephrology on board, recs appreciated. Another round of HD scheduled for today. Renal bx to be done once pt is more stable Neuro #seizure disorder -neuro on board, f/u recs. home depakote held given risk of thrombocytopenia. continue lacosamide for seizure ppx. GI #diarrhea- resolved FEN/ppx -no IVF -hyperphosphatemia -nepro tube feeds per -protonix -SCDs due to low Hgb Case discussed with attending, Dr. Monk. -Rashel Iniguez MD PGY1 ICU Team Visit type - Emergency Visit Emergency Visit: Yes ED Registration Date: 08/29/17 Care time: The patient presented to the Emergency Department on the above date and was hospitalized for further evaluation of their emergent condition. - New Patient This patient is new to me today: No - Critical Care Critical Care patient: Yes Total Critical Care Time (in minutes): 38 Critical Care Statement: The care of this patient involved high complexity decision making to prevent further life threatening deterioration of the patient 's condition and/or to evaluate & treat vital organ system(s) failure or risk of failure.
[2017-09-05] MEDS: CARVEDILOL 12.5 MG TABLET (FP) PO SCH (21:02)
[2017-09-05] MEDS: CHLORHEXIDINE GLUCONATE 4% CLEANSER FOR DECOLONIZATION TP SCH (21:03)
[2017-09-06] MEDS ORDERED: fentaNYL CITRATE 250 MCG/5 ML VIAL ONE (00:35)
[2017-09-06] MEDS ORDERED: DEXTROSE 5%-WATER - 50 ML IVPB ONE ×3 (00:36→16:49)
[2017-09-06] MEDS ORDERED: PIPERACILLIN/TAZOBACTAM 2.25 GM VIAL IVPB ONE ×3 (00:36→16:49)
[2017-09-06] MEDS: DEXTROSE 5% IVPB SCH (00:56)
[2017-09-06] MEDS: WATER IVPB SCH (00:56)
[2017-09-06] MEDS: FENTANYL IVPB SCH (00:56)
[2017-09-06] MEDS: PIPERACILLIN/TAZOB 2.25 GM 2.25 GM in DEXTROSE 5%-WATER - 50 ML IVPB SCH ×3 (02:00→17:15)
[2017-09-06] MEDS: hydrALAZINE HCL 50 MG TABLET (FP) PO SCH ×2 (05:27→15:22)
--- NOTE | 2017-09-06 06:53 | PN ---
Progress Note, Physician Chief Complaint: ID Stable on the ventilator Sedated Zosyn continue along with hemodialysis BP controlled - Current Medication List Current Medications: Active Medications Acetaminophen (Tylenol -) 650 mg PO Q6H PRN PRN Reason: fever Last Admin: 09/04/17 02:40 Dose: 650 mg Albuterol/Ipratropium (Duoneb -) 1 amp NEB RQID [facility] Last Admin: 09/05/17 21:41 Dose: 1 amp Amino Acids (Prosource No Carb Liquid Pkt) 30 ml NGT DAILY [facility] Last Admin: 09/05/17 09:23 Dose: 30 ml Amlodipine Besylate (Norvasc -) 10 mg PO DAILY [facility] Last Admin: 09/05/17 09:23 Dose: 10 mg Carvedilol (Coreg -) 12.5 mg PO BID [facility] Last Admin: 09/05/17 21:02 Dose: 12.5 mg Chlorhexidine Gluconate (Hibiclens For Decolonization -) 1 applic TP HS [facility] Last Admin: 09/05/17 21:03 Dose: 1 applic Docusate Sodium (Colace Liquid -) 100 mg NGT TID PRN PRN Reason: CONSTIPATION Hydralazine HCl (Apresoline -) 50 mg PO TID [facility] Last Admin: 09/06/17 05:27 Dose: 50 mg Piperacillin Sod/Tazobactam (Sod 2.25 gm/ Dextrose) 50 mls @ 100 mls/hr IVPB Q8H-IV LANE PRN Reason: Protocol Last Admin: 09/06/17 02:00 Dose: 100 mls/hr Propofol (Diprivan -) 1,000,000 mcg in 100 mls @ 2.668 mls/hr IVPB TITR LANE; 5 MCG/KG/MIN PRN Reason: Protocol Last Admin: 09/05/17 21:00 Dose: 40 mcg/kg/min, 21.344 mls/hr Fentanyl 1,000 mcg/ Dextrose 100 mls @ 5 mls/hr IVPB TITR LANE; 50 MCG/HR PRN Reason: Protocol Last Admin: 09/06/17 00:56 Dose: 150 mcg/hr, 15 mls/hr Midazolam HCl 100 mg/ Sodium (Chloride) 100 mls @ 2 mls/hr IVPB TITR LANE; 2 MG/ HR PRN Reason: Protocol Last Admin: 09/05/17 16:15 Dose: 8 mg/hr, 8 mls/hr Lacosamide (Vimpat -) 100 mg PO BID [facility] Last Admin: 09/05/17 21:02 Dose: 100 mg Metoprolol Tartrate (Lopressor Injection -) 5 mg IVPUSH Q4H PRN PRN Reason: HYPERTENSION Last Admin: 09/05/17 05:18 Dose: 5 mg Pantoprazole Sodium (Protonix Iv) 40 mg IVPUSH DAILY [facility] Last Admin: 09/05/17 09:24 Dose: 40 mg Polyethylene Glycol (Miralax (For Daily Use) -) 17 gm NGT DAILY [facility] Last Admin: 09/05/17 12:30 Dose: 17 grams - Objective Vital Signs: Vital Signs Temperature 98.4 F 09/06/17 06:00 Pulse Rate 83 09/06/17 06:00 Respiratory Rate 13 09/06/17 06:00 Blood Pressure 138/85 09/06/17 06:00 O2 Sat by Pulse Oximetry (%) 95 09/05/17 22:53 Constitutional: Yes: No Distress Eyes: Yes: WNL, Conjunctiva Clear Neck: Yes: WNL, Supple Cardiovascular: Yes: Regular Rate and Rhythm, S1, S2 Respiratory: Yes: WNL, Regular, CTA Bilaterally Gastrointestinal: Yes: WNL, Normal Bowel Sounds, Soft. No: Tenderness, Tenderness, Rebound Edema: Yes Labs: INR, PTT INR 1.02 (0.82-1.09) 09/04/17 06:00 Fibrinogen 579.0 mg/dL (238-498) H 08/29/17 20:00 Problem List - Problems (1) Acute renal failure Code(s): N17.9 - ACUTE KIDNEY FAILURE, UNSPECIFIED Qualifiers: Acute renal failure type: unspecified Qualified Code(s): N17.9 - Acute kidney failure, unspecified (2) Hypertensive urgency Code(s): I16.0 - HYPERTENSIVE URGENCY (3) Sepsis Code(s): A41.9 - SEPSIS, UNSPECIFIED ORGANISM Qualifiers: Sepsis type: sepsis due to unspecified organism Qualified Code(s): A41.9 - Sepsis, unspecified organism Assessment/Plan Microbiology 09/02/17 18:00 Urine - Urine Clean Catch Urine Culture - Final NO GROWTH OBTAINED 09/04/17 11:45 Pleural Fluid VANESSA Preparation - Preliminary 09/04/17 11:45 Pleural Fluid Fungal Culture - Preliminary 09/04/17 11:45 Pleural Fluid Body Fluid Culture - Preliminary NO AEROBIC GROWTH, 24 HRS 09/02/17 16:20 Blood - Peripheral Venous Blood Culture - Preliminary NO GROWTH OBTAINED AFTER 48 HOURS, INCUBATION TO CONTINUE FOR 3 DAYS. Laboratory Tests 09/05/17 09/05/17 09/06/17 06:15 06:15 06:20 WBC 11.9 H Pending Hgb Pending Plt Count 476 H D Pending AST 22 ALT 15 Alkaline Phosphatase 89 D LD Total 285 H Assessment Acute renal failure on hemodialysis etiology unclear possibly secondary hypertension Anemia ? hemolysis related Acuter respiratory failure still intubated Plans for extubation though now on PEEP 5 and 40& FIO2 Large left pleural effusion ? etiology possible parapneumonic on antibiotic though his cultures all negative Autism Plan Day 4 antibiotic Pip Tazo culture negative Await final culture though suspect culture negative Weaning today [place] BILLS
[2017-09-06 07:01] LABS: HEMATOCRIT 23.6 % (35.4-49); HEMOGLOBIN 8.3 GM/dL (11.7-16.9); MCH 30.3 pg (25.7-33.7); MEAN CELL VOLUME 86.6 fl (80-96); MEAN PLT VOLUME 7.2 fl (7.5-11.1); PLATELET COUNT 496 K/MM3 (134-434); RBC 2.73 M/mm3 (4.00-5.60); RDW 15.4 % (11.9-15.9); WHITE BLOOD COUNT 9.2 K/mm3 (4.0-10.0)
[2017-09-06] MEDS: PROPOFOL 1,000,000 MCG/100 ML VIAL IVPB SCH ×2 (07:09→09:31)
[2017-09-06] MEDS: MIDAZOLAM 100 MG in SODIUM CHLORIDE 100 ML IVPB SCH (07:09)
[2017-09-06 07:23] LABS: CHLORIDE 96 mmol/L (98-107); POTASSIUM 4.9 mmol/L (3.5-5.1); SODIUM 138 mmol/L (136-145)
[2017-09-06 07:40] LABS: ALBUMIN 1.3 g/dl (3.4-5.0); ALK PHOS 75 U/L (45-117); ANION GAP 12 (8-16); BILIRUBIN,TOTAL 0.3 mg/dL (0.2-1.0); BLOOD UREA NITROGEN 44 mg/dL (7-18); CALCIUM 8.3 mg/dL (8.5-10.1); CO2 30 mmol/L (21-32); GLUCOSE,RANDOM 80 mg/dL (74-106); MAGNESIUM 2.4 mg/dL (1.8-2.4); SGOT/AST 15 U/L (15-37); SGPT/ALT 11 U/L (12-78); TOT PROT 4.6 g/dl (6.4-8.2)
[2017-09-06] MEDS: ALBUTEROL SO4 2.5/IPRATROPIUM 0.5 INH SOL 3 ML VIAL.NEB. NEB SCH ×4 (08:34→21:45)
[2017-09-06 08:58] LABS: CREATININE 8.3 mg/dL (0.7-1.3); PHOSPHOROUS 10.1 mg/dL (2.5-4.9)
[2017-09-06] MEDS: PANTOPRAZOLE SODIUM 40 MG VIAL IVPUSH SCH (09:18)
[2017-09-06] MEDS: CARVEDILOL 12.5 MG TABLET (FP) PO SCH (09:20)
[2017-09-06] MEDS: LACOSAMIDE 50 MG TABLET PO SCH (09:20)
[2017-09-06] MEDS: amLODIPine BESYLATE 10 MG TABLET (FP) PO SCH (09:20)
[2017-09-06] MEDS: AMINO ACIDS/PROTEIN HYDROLYS 30 ML LIQUID.PKT NGT SCH (09:21)
[2017-09-06] MEDS: POLYETHYLENE GLYCOL 3350 119 GM BTL NGT SCH (09:25)
[2017-09-06 09:36] LABS: PLATELET ESTIMATE INCREASED
[2017-09-06] MEDS ORDERED: SODIUM CHLORIDE 250 ML IV PRN ×2 (12:00→16:21)
--- NOTE | 2017-09-06 12:18 | PN ---
Teaching Attending Note Name of Resident: Rashel Iniguez ATTENDING PHYSICIAN STATEMENT I saw and evaluated the patient. I reviewed the resident's note and discussed the case with the resident. I agree with the resident's findings and plan as documented. SUBJECTIVE: Pt seen and examined in the ICU. Awake off sedation, tolerated CPAP/PS trials and subsequently extubated during rounds. Minimal drainage from the pigtail catheter. OBJECTIVE: Last Vital Signs Temp Pulse Resp BP Pulse Ox 98.2 F 68 18 166/112 95 09/06/17 10:50 09/06/17 10:50 09/06/17 10:50 09/06/17 10:50 09/06/17 10:35 Intake & Output 09/03/17 09/04/17 09/05/17 09/06/17 23:59 23:59 23:59 23:59 Intake Total 1694 2476 2368.8 1152.8 Output Total 30 2610 175 50 Balance 1664 -134 2193.8 1102.8 Weight 92.306 kg 93.44 kg 88.082 kg 88 kg Gen: extubated, NAD Heart: RRR Lung: decreased breath sounds at the bases Abd: soft, nontender Ext: + edema CBC, BMP 09/06/17 06:20 09/06/17 06:20 Active Medications Acetaminophen (Tylenol -) 650 mg PO Q6H PRN PRN Reason: fever Last Admin: 09/04/17 02:40 Dose: 650 mg Albuterol/Ipratropium (Duoneb -) 1 amp NEB RQID [facility] Last Admin: 09/06/17 11:33 Dose: 1 amp Amino Acids (Prosource No Carb Liquid Pkt) 30 ml NGT DAILY [facility] Last Admin: 09/06/17 09:21 Dose: 30 ml Amlodipine Besylate (Norvasc -) 10 mg PO DAILY [facility] Last Admin: 09/06/17 09:20 Dose: 10 mg Carvedilol (Coreg -) 12.5 mg PO BID [facility] Last Admin: 09/06/17 09:20 Dose: 12.5 mg Chlorhexidine Gluconate (Hibiclens For Decolonization -) 1 applic TP HS [facility] Last Admin: 09/05/17 21:03 Dose: 1 applic Docusate Sodium (Colace Liquid -) 100 mg NGT TID PRN PRN Reason: CONSTIPATION Hydralazine HCl (Apresoline -) 50 mg PO TID [facility] Last Admin: 09/06/17 05:27 Dose: 50 mg Piperacillin Sod/Tazobactam (Sod 2.25 gm/ Dextrose) 50 mls @ 100 mls/hr IVPB Q8H-IV LANE PRN Reason: Protocol Last Admin: 09/06/17 09:17 Dose: 100 mls/hr Propofol (Diprivan -) 1,000,000 mcg in 100 mls @ 2.668 mls/hr IVPB TITR LANE; 5 MCG/KG/MIN PRN Reason: Protocol Last Admin: 09/06/17 09:31 Dose: 40 mcg/kg/min, 21.344 mls/hr Fentanyl 1,000 mcg/ Dextrose 100 mls @ 5 mls/hr IVPB TITR LANE; 50 MCG/HR PRN Reason: Protocol Last Admin: 09/06/17 00:56 Dose: 150 mcg/hr, 15 mls/hr Midazolam HCl 100 mg/ Sodium (Chloride) 100 mls @ 2 mls/hr IVPB TITR LANE; 2 MG/ HR PRN Reason: Protocol Last Admin: 09/06/17 07:09 Dose: 8 mg/hr, 8 mls/hr Sodium Chloride (Normal Saline -) 250 mls @ 3,000 mls/hr IV PRN PRN PRN Reason: Hypotension during Dialysis Stop: 09/07/17 11:59 Lacosamide (Vimpat -) 100 mg PO BID [facility] Last Admin: 09/06/17 09:20 Dose: 100 mg Metoprolol Tartrate (Lopressor Injection -) 5 mg IVPUSH Q4H PRN PRN Reason: HYPERTENSION Last Admin: 09/05/17 05:18 Dose: 5 mg Pantoprazole Sodium (Protonix Iv) 40 mg IVPUSH DAILY [facility] Last Admin: 09/06/17 09:18 Dose: 40 mg Polyethylene Glycol (Miralax (For Daily Use) -) 17 gm NGT DAILY [facility] Last Admin: 09/06/17 09:25 Dose: Not Given ASSESSMENT AND PLAN: Hypertensive Urgency Acute Kidney Injury requiring HD Acute Hypoxic Respiratory Failure Pneumonia Loculated Pleural Effusion Hyponatremia Severe Sepsis Lactic Acidosis Thrombocytopenia improved Anemia Autism - continue antibiotics - f/u pleural cultures and cytology - likely can d/c pigtail catheter tomorrow if no further drainage - HD per renal with ultrafiltration - will need permacath - monitor H/H - transfuse PRBC with HD as needed - monitor urine output, creatinine - BP control - taper Fio2 to keep Spo2 >90% - PO in AM as tolerated - DVT/GI prophylaxis - continue ICU monitoring critical care time spent in reviewing chart, evaluating patient and formulating plan 35 min
--- NOTE | 2017-09-06 13:20 | PN ---
Progress Note (short form) - Note Progress Note: Patient seen and examined All the events noted Imaging/notes/Labs reviewed in detail Mom at bedside. General: extubated, Cor: tachy Lungs: coarse Abd: Soft, Normal bowel sounds, No organomegaly Ext:UE 2+ edema bilateral Last Vital Signs Temp Pulse Resp BP Pulse Ox 97.2 F L 110 H 18 178/121 95 09/06/17 10:50 09/06/17 12:20 09/06/17 12:20 09/06/17 12:20 09/06/17 10:35 CBC, BMP 09/06/17 06:20 09/06/17 06:20 Current Medications Generic Name Dose Route Start Last Admin Trade Name Freq PRN Reason Stop Dose Admin Acetaminophen 650 mg 09/01/17 17:04 09/04/17 02:40 Tylenol - PO 650 mg Q6H PRN Administration fever Albuterol/Ipratropium 1 amp 09/03/17 08:19 09/06/17 11:33 Duoneb - NEB [address] Administration Amino Acids 30 ml 09/03/17 16:15 09/06/17 09:21 Prosource No Carb Liquid Pkt NGT [address] Administration Amlodipine Besylate 10 mg 09/03/17 19:00 09/06/17 09:20 Norvasc - PO [address] Administration Carvedilol 12.5 mg 09/05/17 22:00 09/06/17 09:20 Coreg - PO 12.[address] Administration Chlorhexidine Gluconate 1 applic 08/29/17 22:00 09/05/17 21:03 Hibiclens For Decolonization - TP [address] Administration Docusate Sodium 100 mg 09/04/17 10:00 Colace Liquid - NGT TID PRN CONSTIPATION Hydralazine HCl 50 mg 09/04/17 13:32 09/06/17 05:27 Apresoline - PO [address] Administration Piperacillin Sod/Tazobactam 50 mls @ 100 mls/hr 09/02/17 10:00 09/06/17 09:17 Sod 2.25 gm/ Dextrose IVPB 100 mls/hr Q8H-IV LANE Administration Protocol Propofol 1,000,000 mcg in 100 mls @ 2.668 mls/hr 09/02/17 21:15 09/06/17 09: 31 Diprivan - IVPB 40 mcg/kg/min TITR LANE 21.344 mls/hr Protocol Administration 5 MCG/KG/MIN Fentanyl 1,000 mcg/ Dextrose 100 mls @ 5 mls/hr 09/04/17 13:39 09/06/17 00:56 IVPB 150 mcg/hr TITR LANE 15 mls/hr Protocol Administration 50 MCG/HR Midazolam HCl 100 mg/ Sodium 100 mls @ 2 mls/hr 09/04/17 16:15 09/06/17 07:09 Chloride IVPB 8 mg/hr TITR LANE 8 mls/hr Protocol Administration 2 MG/HR Sodium Chloride 250 mls @ 3,000 mls/hr 09/06/17 12:00 Normal Saline - IV 09/07/17 11:59 PRN PRN Hypotension during Dialysis Lacosamide 100 mg 08/30/17 22:00 09/06/17 09:20 Vimpat - PO [address] Administration Metoprolol Tartrate 5 mg 09/03/17 14:46 09/05/17 05:18 Lopressor Injection - IVPUSH 5 mg Q4H PRN Administration HYPERTENSION Pantoprazole Sodium 40 mg 09/03/17 13:00 09/06/17 09:18 Protonix Iv IVPUSH [address] Administration Polyethylene Glycol 17 gm 09/03/17 20:15 09/06/17 09:25 Miralax (For Daily Use) - NGT Not Given DAILY LANE Pleural effusion--parapneumonic-- respiratory failure--intubated, plan per ICU HTN crisis---ANNA--MAHA , now with nl platelets, improving LDH. Anemia: now multifactorial. Cold agllitinins pending. 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
--- NOTE | 2017-09-06 14:13 | PATH ---
Cytology Non-Gynecological Report Patient Name: PATRICK FERGUSON Med. Rec. #: [id number] /Age/Gender: 1995 (Age: 22) / M Account: [id number] Location: ICU TOOL PROCUREMENT COORDINATOR Taken: 09/04/2017 Received: 09/05/2017 Reported: 09/06/2017 Physicians: Carine Spivey F.N.P. Specimen(s) Received PLEURAL FLUID Clinical History None given Final Diagnosis PLEURAL FLUID, THORACENTESIS: SATISFACTORY FOR EVALUATION BENIGN (NO MALIGNANT CELLS IDENTIFIED) SCANT MESOTHELIAL CELLS, NEUTROPHILS AND LYMPHOCYTES PRESENT. Comment: Recommend correlation with clinical findings and follow up as clinically indicated. Electronically Signed Jose Pichardo M.D. Gross Description Approximately 30 cc of pink fluid received fixed in 50% alcohol. Two cytofunnels and one cellblock prepared.
--- NOTE | 2017-09-06 14:52 | PN ---
Progress Note (short form) - Note Progress Note: extubated today. permacath scheduled for sunday. please keep npo after midnight sunday. vein mapping pending
[2017-09-06] MEDS: METOPROLOL TARTRATE 5 MG/5 ML VIAL IVPUSH PRN (15:16)
--- NOTE | 2017-09-06 15:25 | PN ---
Physical Exam: SUBJECTIVE: Patient seen and examined No acute events overnight. Pt minimally verbal at baseline. OBJECTIVE: Vital Signs Period Temp Pulse Resp BP Sys/Mora Pulse Ox Last 24 Hr 96.6 F-99.1 F 68-114 12-23 126-198/74-130 92-100 GENERAL: young male with autism, lying in bed, non-verbal, on vent, sedated HEENT: PEARRLA, EOMI LUNGS: mechanical breath sounds HEART: tachycardia, regular rhythm, no murmurs ABDOMEN: soft, NT, ND EXTREMITIES: 2+ pulses, warm, well-perfused, 1+ edema in all 4 extremities NEUROLOGICAL: EOMI, PEARRLA, unresponsive to commands Laboratory Results - last 24 hr 08/29/17 09/02/17 09/03/17 20:00 16:00 08:30 WBC RBC Hgb Hct MCV MCH MCHC RDW Plt Count MPV Neutrophils % Neutrophils % (Manual) Band Neutrophils % Lymphocytes % Lymphocytes % (Manual) Monocytes % (Manual) Eosinophils % (Manual) Basophils % (Manual) Myelocytes % (Man) Promyelocytes % (Man) Blast Cells % (Manual) Nucleated RBC % Metamyelocytes Platelet Estimate Polychromasia Schistocytes Sodium Potassium Chloride Carbon Dioxide Anion Gap BUN Creatinine Creat Clearance w eGFR Random Glucose Calcium Phosphorus Magnesium Total Bilirubin AST ALT Alkaline Phosphatase Total Protein Albumin Pleural pH 7.7 Hepatitis A Ab Total Positive Hep Bs Antigen Negative Hep Bs Antibody Non reactive Hep B Core Total Ab Negative Crossmatch See Detail 09/06/17 09/06/17 06:20 06:20 WBC 9.2 RBC 2.73 L Hgb 8.3 L Hct 23.6 L MCV 86.6 MCH 30.3 MCHC 35.0 RDW 15.4 Plt Count 496 H MPV 7.2 L Neutrophils % No Result Required. Neutrophils % (Manual) 52.4 Band Neutrophils % 0.0 Lymphocytes % No Result Required. Lymphocytes % (Manual) 33.3 D Monocytes % (Manual) 2 L Eosinophils % (Manual) 11.9 H D Basophils % (Manual) 0.0 Myelocytes % (Man) 0 D Promyelocytes % (Man) 0 Blast Cells % (Manual) 0 Nucleated RBC % 0 Metamyelocytes 0 Platelet Estimate Increased Polychromasia 1+ Schistocytes 2+ Sodium 138 Potassium 4.9 Chloride 96 L Carbon Dioxide 30 Anion Gap 12 BUN 44 H D Creatinine 8.3 H* D Creat Clearance w eGFR 8.05 Random Glucose 80 Calcium 8.3 L Phosphorus 10.1 H* D Magnesium 2.4 Total Bilirubin 0.3 AST 15 D ALT 11 L D Alkaline Phosphatase 75 Total Protein 4.6 L Albumin 1.3 L Pleural pH Hepatitis A Ab Total Hep Bs Antigen Hep Bs Antibody Hep B Core Total Ab Crossmatch Active Medications Generic Name Dose Route Start Last Admin Trade Name Freq PRN Reason Stop Dose Admin Acetaminophen 650 mg 09/01/17 17:04 09/04/17 02:40 Tylenol - PO 650 mg Q6H PRN Administration fever Albuterol/Ipratropium 1 amp 09/03/17 08:19 09/06/17 11:33 Duoneb - NEB [address] Administration Amino Acids 30 ml 09/03/17 16:15 09/06/17 09:21 Prosource No Carb Liquid Pkt NGT [address] Administration Amlodipine Besylate 10 mg 09/03/17 19:00 09/06/17 09:20 Norvasc - PO [address] Administration Carvedilol 12.5 mg 09/05/17 22:00 09/06/17 09:20 Coreg - PO 12.[address] Administration Chlorhexidine Gluconate 1 applic 08/29/17 22:00 09/05/17 21:03 Hibiclens For Decolonization - TP [address] Administration Docusate Sodium 100 mg 09/04/17 10:00 Colace Liquid - NGT TID PRN CONSTIPATION Hydralazine HCl 50 mg 09/04/17 13:32 09/06/17 05:27 Apresoline - PO [address] Administration Piperacillin Sod/Tazobactam 50 mls @ 100 mls/hr 09/02/17 10:00 09/06/17 09:17 Sod 2.25 gm/ Dextrose IVPB 100 mls/hr Q8H-IV LANE Administration Protocol Sodium Chloride 250 mls @ 3,000 mls/hr 09/06/17 12:00 Normal Saline - IV 09/07/17 11:59 PRN PRN Hypotension during Dialysis Lacosamide 100 mg 08/30/17 22:00 09/06/17 09:20 Vimpat - PO [address] Administration Metoprolol Tartrate 5 mg 09/03/17 14:46 04/12/18 15:16 Lopressor Injection - IVPUSH 5 mg Q4H PRN Administration HYPERTENSION Pantoprazole Sodium 40 mg 09/03/17 13:00 09/06/17 09:18 Protonix Iv IVPUSH [address] Administration Polyethylene Glycol 17 gm 09/03/17 20:15 09/06/17 09:25 Miralax (For Daily Use) - NGT Not Given DAILY LANE ASSESSMENT/PLAN: 22M w/ hx of autism and seizure disorder who presented with severe HTN, anemia, thrombocytopenia, leukocytosis, hyperkalemia, and ANNA, admitted to ICU. Pt is s/ p PRBCs, platelets, FFP, dialysis, s/p intubation on 09/02, and s/p chest tube placement on 09/04. CV #hypertensive urgency/emergency- unclear etiology, improving -hydralazine 50 TID, coreg 6.25 BID, norvasc 10, PRN lopressor 5mg q4h PRN -monitor MAPs -nephrology on board, recs appreciated -anne to be removed per nephro #troponinemia- likely 2/2 renal failure and demand ischemia from HTN -peaked, no longer trending Resp #acute hypoxic resp failure -pt s/p intubation on 09/02. pt successfully extubated in late morning. -repeat fluid studies consistent with exudative effusion, likely 2/2 PNA -per Dr. Ivy, no need for VATS considering level of improvement. -chest tube draining <100cc/day now Hematology #anemia and thrombocytopenia -hematology on board, recs appreciated. -Hgb of 8.3 this am -platelets wnl ID #sepsis- leukocytosis of 9, tachycardia- resolved -ID on board, Dr. Moise, recs appreciated. zosyn and vanc -f/u sputum cx -f/u Bcx and Ucx -pleural studies consistent with exudative process. Nephro #hyperkalemia and ANNA -nephrology on board, recs appreciated. Renal bx to be done once pt is more stable -pt to get permacath on sunday Neuro #seizure disorder -neuro on board, f/u recs. home depakote held given risk of thrombocytopenia. continue lacosamide for seizure ppx. GI #diarrhea- resolved FEN/ppx -no IVF -hyperphosphatemia -nepro tube feeds per RD -protonix -SCDs due to coagulopathy/anemia Case discussed with attending, Dr. Monk. -Rashel Iniguez MD PGY1 ICU Team Visit type - Emergency Visit Emergency Visit: Yes ED Registration Date: 08/29/17 Care time: The patient presented to the Emergency Department on the above date and was hospitalized for further evaluation of their emergent condition. - New Patient This patient is new to me today: No - Critical Care Critical Care patient: Yes Total Critical Care Time (in minutes): 36 Critical Care Statement: The care of this patient involved high complexity decision making to prevent further life threatening deterioration of the patient 's condition and/or to evaluate & treat vital organ system(s) failure or risk of failure.
--- NOTE | 2017-09-06 15:36 | PN ---
Physical Exam: SUBJECTIVE: Patient seen and examined in ICU. He is extubated, tolerating HD. Mother at bedside. Events: - Extubated OBJECTIVE: Vital Signs Period Temp Pulse Resp BP Sys/Mora Pulse Ox Last 24 Hr 96.6 F-99.1 F 68-114 12-23 126-198/74-130 92-100 PE Neuro:awake, alert, looking around Pulm: diminished, rhonchi + face tent CV: s1 s2 tachycardia Abd: s nt nd +bs Ext: b/l UE edema + 2, pedal edema + 2 Laboratory Results - last 24 hr 08/29/17 09/02/17 09/03/17 20:00 16:00 08:30 WBC RBC Hgb Hct MCV MCH MCHC RDW Plt Count MPV Neutrophils % Neutrophils % (Manual) Band Neutrophils % Lymphocytes % Lymphocytes % (Manual) Monocytes % (Manual) Eosinophils % (Manual) Basophils % (Manual) Myelocytes % (Man) Promyelocytes % (Man) Blast Cells % (Manual) Nucleated RBC % Metamyelocytes Platelet Estimate Polychromasia Schistocytes Sodium Potassium Chloride Carbon Dioxide Anion Gap BUN Creatinine Creat Clearance w eGFR Random Glucose Calcium Phosphorus Magnesium Total Bilirubin AST ALT Alkaline Phosphatase Total Protein Albumin Pleural pH 7.7 Hepatitis A Ab Total Positive Hep Bs Antigen Negative Hep Bs Antibody Non reactive Hep B Core Total Ab Negative Crossmatch See Detail 09/06/17 09/06/17 06:20 06:20 WBC 9.2 RBC 2.73 L Hgb 8.3 L Hct 23.6 L MCV 86.6 MCH 30.3 MCHC 35.0 RDW 15.4 Plt Count 496 H MPV 7.2 L Neutrophils % No Result Required. Neutrophils % (Manual) 52.4 Band Neutrophils % 0.0 Lymphocytes % No Result Required. Lymphocytes % (Manual) 33.3 D Monocytes % (Manual) 2 L Eosinophils % (Manual) 11.9 H D Basophils % (Manual) 0.0 Myelocytes % (Man) 0 D Promyelocytes % (Man) 0 Blast Cells % (Manual) 0 Nucleated RBC % 0 Metamyelocytes 0 Platelet Estimate Increased Polychromasia 1+ Schistocytes 2+ Sodium 138 Potassium 4.9 Chloride 96 L Carbon Dioxide 30 Anion Gap 12 BUN 44 H D Creatinine 8.3 H* D Creat Clearance w eGFR 8.05 Random Glucose 80 Calcium 8.3 L Phosphorus 10.1 H* D Magnesium 2.4 Total Bilirubin 0.3 AST 15 D ALT 11 L D Alkaline Phosphatase 75 Total Protein 4.6 L Albumin 1.3 L Pleural pH Hepatitis A Ab Total Hep Bs Antigen Hep Bs Antibody Hep B Core Total Ab Crossmatch Active Medications Generic Name Dose Route Start Last Admin Trade Name Freq PRN Reason Stop Dose Admin Acetaminophen 650 mg 09/01/17 17:04 09/04/17 02:40 Tylenol - PO 650 mg Q6H PRN Administration fever Albuterol/Ipratropium 1 amp 09/03/17 08:19 09/06/17 11:33 Duoneb - NEB [address] Administration Amino Acids 30 ml 09/03/17 16:15 09/06/17 09:21 Prosource No Carb Liquid Pkt NGT [address] Administration Amlodipine Besylate 10 mg 09/03/17 19:00 09/06/17 09:20 Norvasc - PO [address] Administration Carvedilol 12.5 mg 09/05/17 22:00 09/06/17 09:20 Coreg - PO 12.[address] Administration Chlorhexidine Gluconate 1 applic 08/29/17 22:00 09/05/17 21:03 Hibiclens For Decolonization - TP [address] Administration Docusate Sodium 100 mg 09/04/17 10:00 Colace Liquid - NGT TID PRN CONSTIPATION Hydralazine HCl 50 mg 09/04/17 13:32 09/06/17 15:22 Apresoline - PO Not Given TID LANE Piperacillin Sod/Tazobactam 50 mls @ 100 mls/hr 09/02/17 10:00 09/06/17 09:17 Sod 2.25 gm/ Dextrose IVPB 100 mls/hr Q8H-IV LANE Administration Protocol Sodium Chloride 250 mls @ 3,000 mls/hr 09/06/17 12:00 Normal Saline - IV 09/07/17 11:59 PRN PRN Hypotension during Dialysis Lacosamide 100 mg 08/30/17 22:00 09/06/17 09:20 Vimpat - PO [address] Administration Metoprolol Tartrate 5 mg 09/03/17 14:46 09/06/17 15:16 Lopressor Injection - IVPUSH 5 mg Q4H PRN Administration HYPERTENSION Pantoprazole Sodium 40 mg 09/03/17 13:00 09/06/17 09:18 Protonix Iv IVPUSH [address] Administration Polyethylene Glycol 17 gm 09/03/17 20:15 09/06/17 09:25 Miralax (For Daily Use) - NGT Not Given DAILY LANE Assessment: 22 year old male with pmhx of autism, epilepsy, HTN, presented with weakness, dyspnea, diarrhea, found to have hypertensive urgency with acute renal failure and metabolic disarray. Hospital course complicated by acute respiratory failure, requiring intubation and emergent HD. Plan: 1. Acute hypoxic respiratory failure - Extubated this AM - On face tent - Maintain spo2>95% 2. Left pleural effusion with loculation, s/p thoracentesis 09/02 - ? parapneumonic vs aspiration - Follow cultures - Pigtail placed yesterday 09/04 - Serial cxr's - Possibly VATS if no expansion 3. Severe sepsis due to PNA - Continue zosyn per ID 4. Acute Renal failure, metabolic disarray - For HD today - Transfuse on HD - Permacath Sunday - Renal following 5. HTN urgency - HD today - Hydralazine 50mg TID - Coreg 6.25mg BID - Norvasc 10mg daily 6. Epilepsy - Vimpat 100mg BID 7. Acute blood loss anemia - Stable - Transfuse 2uprbc 09/03 8. Thrombocytopenia - Resolved 9. Nutrition - NPO after extubation 10. DVT - SCDs, hold chemical ac for bleeding Visit type - Emergency Visit Emergency Visit: Yes ED Registration Date: 08/29/17 Care time: The patient presented to the Emergency Department on the above date and was hospitalized for further evaluation of their emergent condition. - New Patient This patient is new to me today: No - Critical Care Critical Care patient: No
--- NOTE | 2017-09-06 16:19 | PN ---
Progress Note, Physician History of Present Illness: Pt seen and examined at bedside. He is now extubatd. He is currently getting HD. Mother is at bedside. - Current Medication List Current Medications: Active Medications Acetaminophen (Tylenol -) 650 mg PO Q6H PRN PRN Reason: fever Last Admin: 09/04/17 02:40 Dose: 650 mg Albuterol/Ipratropium (Duoneb -) 1 amp NEB RQID [facility] Last Admin: 09/06/17 11:33 Dose: 1 amp Amino Acids (Prosource No Carb Liquid Pkt) 30 ml NGT DAILY [facility] Last Admin: 09/06/17 09:21 Dose: 30 ml Amlodipine Besylate (Norvasc -) 10 mg PO DAILY [facility] Last Admin: 09/06/17 09:20 Dose: 10 mg Carvedilol (Coreg -) 12.5 mg PO BID [facility] Last Admin: 09/06/17 09:20 Dose: 12.5 mg Chlorhexidine Gluconate (Hibiclens For Decolonization -) 1 applic TP HS [facility] Last Admin: 09/05/17 21:03 Dose: 1 applic Docusate Sodium (Colace Liquid -) 100 mg NGT TID PRN PRN Reason: CONSTIPATION Hydralazine HCl (Apresoline -) 50 mg PO TID [facility] Last Admin: 09/06/17 15:22 Dose: Not Given Piperacillin Sod/Tazobactam (Sod 2.25 gm/ Dextrose) 50 mls @ 100 mls/hr IVPB Q8H-IV LANE PRN Reason: Protocol Last Admin: 09/06/17 09:17 Dose: 100 mls/hr Sodium Chloride (Normal Saline -) 250 mls @ 3,000 mls/hr IV PRN PRN PRN Reason: Hypotension during Dialysis Stop: 09/07/17 11:59 Lacosamide (Vimpat -) 100 mg PO BID [facility] Last Admin: 09/06/17 09:20 Dose: 100 mg Metoprolol Tartrate (Lopressor Injection -) 5 mg IVPUSH Q4H PRN PRN Reason: HYPERTENSION Last Admin: 09/06/17 15:16 Dose: 5 mg Pantoprazole Sodium (Protonix Iv) 40 mg IVPUSH DAILY [facility] Last Admin: 09/06/17 09:18 Dose: 40 mg Polyethylene Glycol (Miralax (For Daily Use) -) [address] Last Admin: 09/06/17 09:25 Dose: Not Given - Objective Vital Signs: Vital Signs Temperature 97.2 F L 09/06/17 10:50 Pulse Rate 114 H 09/06/17 14:30 Respiratory Rate 18 09/06/17 14:30 Blood Pressure 188/121 09/06/17 14:30 O2 Sat by Pulse Oximetry (%) 92 L 09/06/17 10:35 Constitutional: Yes: Calm Eyes: Yes: Conjunctiva Clear HENT: Yes: Atraumatic Cardiovascular: Yes: S1, S2 Respiratory: Yes: On Venti-Mask Gastrointestinal: Yes: Soft Genitourinary: Yes: Ruiz Present Musculoskeletal: Yes: WNL, Muscle Weakness Edema: Yes Edema: LUE: 1+, RUE: 1+, LLE: Trace, RLE: Trace Neurological: Yes: Pre-Existing Deficit Labs: CBC, BMP 09/06/17 06:20 09/06/17 06:20 INR, PTT INR 1.02 (0.82-1.09) 09/04/17 06:00 Fibrinogen 579.0 mg/dL (238-498) H 08/29/17 20:00 - ....Imaging Chest X-ray: Report Reviewed Problem List - Problems (1) Acute renal failure Code(s): N17.9 - ACUTE KIDNEY FAILURE, UNSPECIFIED Qualifiers: Acute renal failure type: unspecified Qualified Code(s): N17.9 - Acute kidney failure, unspecified (2) Anemia Code(s): D64.9 - ANEMIA, UNSPECIFIED (3) Hyperkalemia Code(s): E87.5 - HYPERKALEMIA (4) Hypertensive urgency Code(s): I16.0 - HYPERTENSIVE URGENCY (5) Sepsis Code(s): A41.9 - SEPSIS, UNSPECIFIED ORGANISM Qualifiers: Sepsis type: sepsis due to unspecified organism Qualified Code(s): A41.9 - Sepsis, unspecified organism (6) Thrombocytopenia Code(s): D69.6 - THROMBOCYTOPENIA, UNSPECIFIED (7) Seizure Code(s): R56.9 - UNSPECIFIED CONVULSIONS Assessment/Plan Current Medications Generic Name Dose Route Start Last Admin Trade Name Freq PRN Reason Stop Dose Admin Acetaminophen 650 mg 09/01/17 17:04 09/04/17 02:40 Tylenol - PO 650 mg Q6H PRN Administration fever Albuterol/Ipratropium 1 amp 09/03/17 08:19 09/06/17 11:33 Duoneb - NEB [address] Administration Amino Acids 30 ml 09/03/17 16:15 09/06/17 09:21 Prosource No Carb Liquid Pkt NGT [address] Administration Amlodipine Besylate 10 mg 09/03/17 19:00 09/06/17 09:20 Norvasc - PO [address] Administration Carvedilol 12.5 mg 09/05/17 22:00 09/06/17 09:20 Coreg - PO 12.[address] Administration Chlorhexidine Gluconate 1 applic 08/29/17 22:00 09/05/17 21:03 Hibiclens For Decolonization - TP [address] Administration Docusate Sodium 100 mg 09/04/17 10:00 Colace Liquid - NGT TID PRN CONSTIPATION Hydralazine HCl 50 mg 09/04/17 13:32 09/06/17 15:22 Apresoline - PO Not Given TID LANE Piperacillin Sod/Tazobactam 50 mls @ 100 mls/hr 09/02/17 10:00 09/06/17 09:17 Sod 2.25 gm/ Dextrose IVPB 100 mls/hr Q8H-IV LANE Administration Protocol Sodium Chloride 250 mls @ 3,000 mls/hr 09/06/17 12:00 Normal Saline - IV 09/07/17 11:59 PRN PRN Hypotension during Dialysis Lacosamide 100 mg 08/30/17 22:00 09/06/17 09:20 Vimpat - PO [address] Administration Metoprolol Tartrate 5 mg 09/03/17 14:46 09/06/17 15:16 Lopressor Injection - IVPUSH 5 mg Q4H PRN Administration HYPERTENSION Pantoprazole Sodium 40 mg 09/03/17 13:00 09/06/17 09:18 Protonix Iv IVPUSH [address] Administration Polyethylene Glycol 17 gm 09/03/17 20:15 09/06/17 09:25 Miralax (For Daily Use) - NGT Not Given DAILY [facility] Laboratory Tests 08/29/17 08/31/17 20:00 11:00 LISA M-Marlon Not observed GEN Screen Negative c-ANCA <1:20 Proteinase 3 (PR3) <3.5 p-ANCA <1:20 Atypical p-ANCA <1:20 Myeloperoxidase Ab <9.0 Double Strand DNA Ab <1 Glomerular Base Memb Ab 3 Complement C3 133 Complement C4 31 Hep Bs Antigen Negative Hep B Core Total Ab Negative Impression 1. ANNA 2. HTN urgency/emergency 3. hyperkalemia 4. hyponatremia 5. autism 6. hx of seizure 7. anemia 8. CKD 9. lactic acidosis improving 10. thrombocytopenia 11. hyperkalemia 12. pleural effusion 13. acute resp failure requiring intubation Plan - HD today - spoke to vascular surgery, pt will get a permacath on Sunday - will dialyze again tomorrow - can remove shiley tomorrow after HD - likely kidney biopsy next week - pt now extubated, monitor pulse ox - renal workup is in progress - pt remains oliguric - follow serologies - discussed with ICU team - monitor platelets - will follow closely Dr Velasquez
[2017-09-06] MEDS ORDERED: hydrALAZINE HCL 20 MG/ML VIAL IVPUSH SCH (16:30)
[2017-09-06] MEDS ORDERED: LABETALOL HCL 5 MG/1 ML (100MG/20 ML VIAL) IVPUSH ONE (17:15)
[2017-09-06] MEDS: LABETALOL HCL INJECTION 1,000 MG in DEXTROSE 5%-WATER - 800 ML IV SCH (20:00)
[2017-09-06] MEDS: Lacosamide 200 MG/20 ML VIAL IVPB SCH (21:29)
[2017-09-07] MEDS ORDERED: PIPERACILLIN/TAZOBACTAM 2.25 GM VIAL IVPB ONE ×3 (02:08→17:11)
[2017-09-07] MEDS ORDERED: DEXTROSE 5%-WATER - 50 ML IVPB ONE ×3 (02:08→17:11)
[2017-09-07] MEDS: PIPERACILLIN/TAZOB 2.25 GM 2.25 GM in DEXTROSE 5%-WATER - 50 ML IVPB SCH ×3 (02:16→17:20)
[2017-09-07] MEDS: CHLORHEXIDINE GLUCONATE 4% CLEANSER FOR DECOLONIZATION TP SCH ×2 (05:30→21:53)
[2017-09-07 06:38] LABS: ALBUMIN 1.4 g/dl (3.4-5.0); ANION GAP 11 (8-16); BLOOD UREA NITROGEN 30 mg/dL (7-18); CALCIUM 7.9 mg/dL (8.5-10.1); CHLORIDE 99 mmol/L (98-107); CO2 30 mmol/L (21-32); GLUCOSE,RANDOM 93 mg/dL (74-106); MAGNESIUM 2.1 mg/dL (1.8-2.4); POTASSIUM 4.6 mmol/L (3.5-5.1); SODIUM 140 mmol/L (136-145)
[2017-09-07 06:42] LABS: ALK PHOS 62 U/L (45-117); BILIRUBIN,TOTAL 0.4 mg/dL (0.2-1.0); CREATININE 6.8 mg/dL (0.7-1.3); PHOSPHOROUS 8.3 mg/dL (2.5-4.9); SGOT/AST 20 U/L (15-37); SGPT/ALT 11 U/L (12-78); TOT PROT 4.8 g/dl (6.4-8.2)
[2017-09-07 06:48] LABS: BASO % 0.6 % (0-2.0); EOS % 1.4 % (0-4.5); HEMATOCRIT 24.4 % (35.4-49); HEMOGLOBIN 8.4 GM/dL (11.7-16.9); LYMPH % 16.2 % (8-40); MCH 29.6 pg (25.7-33.7); MCHC 34.4 g/dl (32.0-35.9); MEAN PLT VOLUME 7.1 fl (7.5-11.1); MONO % 8.9 % (3.8-10.2); NEUT % 72.9 % (42.8-82.8); PLATELET COUNT 545 K/MM3 (134-434); RBC 2.83 M/mm3 (4.00-5.60); WHITE BLOOD COUNT 10.6 K/mm3 (4.0-10.0)
--- NOTE | 2017-09-07 07:39 | PN ---
Progress Note, Physician Chief Complaint: ID Day 5 [place] Now extubated afebrile in good spirits NAD - Current Medication List Current Medications: Active Medications Acetaminophen (Tylenol -) 650 mg PO Q6H PRN PRN Reason: fever Last Admin: 09/04/17 02:40 Dose: 650 mg Albuterol/Ipratropium (Duoneb -) 1 amp NEB RQID [facility] Last Admin: 09/06/17 21:45 Dose: 1 amp Amino Acids (Prosource No Carb Liquid Pkt) 30 ml NGT DAILY [facility] Last Admin: 09/06/17 09:21 Dose: 30 ml Chlorhexidine Gluconate (Hibiclens For Decolonization -) 1 applic TP HS [facility] Last Admin: 09/07/17 05:30 Dose: 1 applic Docusate Sodium (Colace Liquid -) 100 mg NGT TID PRN PRN Reason: CONSTIPATION Piperacillin Sod/Tazobactam (Sod 2.25 gm/ Dextrose) 50 mls @ 100 mls/hr IVPB Q8H-IV LANE PRN Reason: Protocol Last Admin: 09/07/17 02:16 Dose: 100 mls/hr Sodium Chloride (Normal Saline -) 250 mls @ 3,000 mls/hr IV PRN PRN PRN Reason: Hypotension during Dialysis Stop: 09/07/17 11:59 Sodium Chloride (Normal Saline -) 250 mls @ 3,000 mls/hr IV PRN PRN PRN Reason: Hypotension during Dialysis Stop: 09/07/17 16:21 Labetalol HCl 1,000 mg/ (Dextrose) 1,000 mls @ 120 mls/hr IV TITR LANE; 2 MG/MIN PRN Reason: Protocol Last Titration: 09/07/17 03:30 Dose: 2 mg/min, 120 mls/hr Lacosamide (Vimpat Injection -) 100 mg IVPB BID [facility] Last Admin: 09/06/17 21:29 Dose: 100 mg Metoprolol Tartrate (Lopressor Injection -) 5 mg IVPUSH Q4H PRN PRN Reason: HYPERTENSION Last Admin: 09/06/17 15:16 Dose: 5 mg Pantoprazole Sodium (Protonix Iv) 40 mg IVPUSH DAILY [facility] Last Admin: 09/06/17 09:18 Dose: 40 mg - Objective Vital Signs: Vital Signs Temperature 98.9 F 09/07/17 06:00 Pulse Rate 89 09/07/17 06:00 Respiratory Rate 16 09/07/17 06:00 Blood Pressure 145/98 09/07/17 06:00 O2 Sat by Pulse Oximetry (%) 100 09/07/17 04:00 Constitutional: Yes: No Distress HENT: Yes: WNL, Atraumatic Neck: Yes: WNL, Supple Cardiovascular: Yes: Regular Rate and Rhythm, S1, S2 Respiratory: Yes: WNL, Regular, CTA Bilaterally Gastrointestinal: Yes: WNL, Normal Bowel Sounds, Soft. No: Tenderness Edema: Yes Labs: CBC, BMP 09/07/17 06:00 09/07/17 06:00 INR, PTT INR 1.02 (0.82-1.09) 09/04/17 06:00 Fibrinogen 579.0 mg/dL (238-498) H 08/29/17 20:00 Problem List - Problems (1) Acute renal failure Code(s): N17.9 - ACUTE KIDNEY FAILURE, UNSPECIFIED Qualifiers: Acute renal failure type: unspecified Qualified Code(s): N17.9 - Acute kidney failure, unspecified (2) Hypertensive urgency Code(s): I16.0 - HYPERTENSIVE URGENCY (3) Sepsis Code(s): A41.9 - SEPSIS, UNSPECIFIED ORGANISM Qualifiers: Sepsis type: sepsis due to unspecified organism Qualified Code(s): A41.9 - Sepsis, unspecified organism Assessment/Plan Microbiology 09/05/17 23:00 Stool Clostridium difficile Antigen (JONAH) - Final 09/05/17 23:00 Stool Clostridium difficile Toxin Assay - Final 09/04/17 11:45 Pleural Fluid Gram Stain - Final 09/04/17 11:45 Pleural Fluid Anaerobic Culture - Final NO GROWTH OF AEROBIC ORGANISMS AFTER 48 HOURS INCUBATION NO ANAEROBES WERE ISOLATED 09/02/17 18:00 Urine - Urine Clean Catch Urine Culture - Final NO GROWTH OBTAINED 09/02/17 16:14 Pleural Fluid Gram Stain - Final 09/02/17 16:14 Pleural Fluid Anaerobic Culture - Final NO GROWTH OF AEROBIC ORGANISMS AFTER 48 HOURS INCUBATION NO ANAEROBES WERE ISOLATED 09/01/17 15:00 Blood - Central Line Blood Culture - Final NO GROWTH AFTER 5 DAYS INCUBATION 09/01/17 15:00 Blood - Central Line Blood Culture - Final NO GROWTH AFTER 5 DAYS INCUBATION 09/02/17 16:20 Blood - Peripheral Venous Blood Culture - Preliminary NO GROWTH OBTAINED AFTER 72 HOURS, INCUBATION TO CONTINUE FOR 2 DAYS. Laboratory Tests 09/07/17 09/07/17 06:00 06:00 WBC 10.6 H Hgb 8.4 L Hct 24.4 L Plt Count 545 H BUN 30 H D Creatinine 6.8 H Total Bilirubin 0.4 D AST 20 D ALT 11 L Alkaline Phosphatase 62 Assessment Acute renal failure HPTN severe on admission Hemolysis unclear etiology S/P respiratory failure extubated Pleural effusion ? etiology parapneumonic Autism Plan Continue antibiotic another 48 hours Doubtful stool culture going to grow at this point Had been ordered multiple times on admission but had no diarrhea at that point Thoracic follow up reagrding chest tube still draining [place] BILLS
[2017-09-07] MEDS: ALBUTEROL SO4 2.5/IPRATROPIUM 0.5 INH SOL 3 ML VIAL.NEB. NEB SCH ×4 (08:21→21:00)
[2017-09-07] MEDS: PANTOPRAZOLE SODIUM 40 MG VIAL IVPUSH SCH (09:24)
[2017-09-07] MEDS: Lacosamide 200 MG/20 ML VIAL IVPB SCH ×2 (09:24→21:54)
[2017-09-07] MEDS: AMINO ACIDS/PROTEIN HYDROLYS 30 ML LIQUID.PKT NGT SCH (09:25)
--- NOTE | 2017-09-07 10:04 | PN ---
Progress Note (short form) - Note Progress Note: cc: htn urgency. S: Remained hypertensive yesterday, coreg uptitrated. However, extubated today (no longer with NGT) and made NPO. Was unable to get po meds today. --> remains hypertensive. Patient non-verbal, but appears comfortable per father. Current Medications: Acetaminophen (Tylenol -) 650 mg PO Q6H PRN PRN Reason: fever Last Admin: 09/04/17 02:40 Dose: 650 mg Albuterol/Ipratropium (Duoneb -) 1 amp NEB RQID [facility] Last Admin: 09/06/17 11:33 Dose: 1 amp Amino Acids (Prosource No Carb Liquid Pkt) 30 ml NGT DAILY [facility] Last Admin: 09/06/17 09:21 Dose: 30 ml Amlodipine Besylate (Norvasc -) 10 mg PO DAILY [facility] Last Admin: 09/06/17 09:20 Dose: 10 mg Carvedilol (Coreg -) 12.5 mg PO BID [facility] Last Admin: 09/06/17 09:20 Dose: 12.5 mg Chlorhexidine Gluconate (Hibiclens For Decolonization -) 1 applic TP HS [facility] Last Admin: 09/05/17 21:03 Dose: 1 applic Docusate Sodium (Colace Liquid -) 100 mg NGT TID PRN PRN Reason: CONSTIPATION Hydralazine HCl (Apresoline -) 50 mg PO TID [facility] Last Admin: 09/06/17 15:22 Dose: Not Given Piperacillin Sod/Tazobactam (Sod 2.25 gm/ Dextrose) 50 mls @ 100 mls/hr IVPB Q8H-IV LANE PRN Reason: Protocol Last Admin: 09/06/17 09:17 Dose: 100 mls/hr Sodium Chloride (Normal Saline -) 250 mls @ 3,000 mls/hr IV PRN PRN PRN Reason: Hypotension during Dialysis Stop: 09/07/17 11:59 Lacosamide (Vimpat -) 100 mg PO BID [facility] Last Admin: 09/06/17 09:20 Dose: 100 mg Metoprolol Tartrate (Lopressor Injection -) 5 mg IVPUSH Q4H PRN PRN Reason: HYPERTENSION Last Admin: 09/06/17 15:16 Dose: 5 mg Pantoprazole Sodium (Protonix Iv) 40 mg IVPUSH DAILY [facility] Last Admin: 09/06/17 09:18 Dose: 40 mg Polyethylene Glycol (Miralax (For Daily Use) -) 17 gm NGT DAILY [facility] Last Admin: 09/06/17 09:25 Dose: Not Given pe: Vital Signs - 24 hr 09/06/17 09/06/17 09/06/17 10:15 10:35 10:45 Temperature Pulse Rate 98 H 112 H Respiratory 17 18 Rate Blood Pressure 168/110 O2 Sat by Pulse 94 L 92 L Oximetry (%) 09/06/17 09/06/17 09/06/17 10:50 11:00 11:20 Temperature 97.2 F L Pulse Rate 68 95 H 95 H Respiratory 18 12 18 Rate Blood Pressure 166/112 176/114 189/114 O2 Sat by Pulse Oximetry (%) 09/06/17 09/06/17 09/06/17 11:50 12:00 12:20 Temperature Pulse Rate 106 H 107 H 110 H Respiratory 18 16 18 Rate Blood Pressure 198/130 176/116 178/121 O2 Sat by Pulse Oximetry (%) 09/06/17 09/06/17 09/06/17 12:50 13:00 13:20 Temperature Pulse Rate 109 H 110 H 109 H Respiratory 18 19 18 Rate Blood Pressure 126/111 176/111 174/110 O2 Sat by Pulse Oximetry (%) 09/06/17 09/06/17 09/06/17 13:50 14:00 14:20 Temperature Pulse Rate 112 H 114 H 110 H Respiratory 18 23 18 Rate Blood Pressure 183/119 188/121 180/110 O2 Sat by Pulse Oximetry (%) 09/06/17 09/06/17 09/06/17 14:30 15:00 16:00 Temperature 99 F Pulse Rate 114 H 110 H 110 H Respiratory 18 19 26 H Rate Blood Pressure 188/121 182/112 187/132 O2 Sat by Pulse 98 Oximetry (%) intubated sedated nad no jvd rrr s1 s2 no mrg mechanical bs. + chest tube. no jaundice diaphoresis pos dp pt trace le edema bl abd nd pos bs Laboratory Tests 09/06/17 06:20 Sodium 138 Potassium 4.9 Chloride 96 L Carbon Dioxide 30 BUN 44 H D Creatinine 8.3 H* D Magnesium 2.4 Albumin 1.3 L ecg: sr,prolonged qtc, no ischemic changes echo 08/2017: nl lv/rv, no sig valve path cxr: left eff tele: sr/stach a/p: 22 m hx autism, seizures, possible underlying ckd/htn here with ams, respiratory failure/sepsis, anna requiring HD and hypertensive urgency. Cardiac course complicated by mild troponin elevation and prolonged qtc. anna requiring HD: -renal eval in progress, planned for biopsy -currently getting HD here htn urgency/emergency: -elevated at times -now on nicard gtt. will get po procardia today as well and try to titrate off gtt. - 09/03: no IV access for cardene drip. needs po meds through NG tube --> started norvasc 10, hydral 20 tid. - 09/04 remains htn. Uptitrated hydralazine to 50 tid. This afternoon remains hypertensive. Will add carvedilol 6.25 bid. - 09/05: remains htn. will uptitrate coreg to 12.5 bid. - 09/06: extubated today (no longer with NGT) and made NPO. Was unable to get po meds today. --> remains hypertensive. No longer on sedation --> can get IV labetolol drip. Recommend initiation of labetolol drip. -echo here unremarkable abnl ecg: -prolonged qtc, possibly due to anna -qtc improved on repeat ecg. abnormal troponins - likely increased in setting of ANNA. likely demand, no concern for acs. anemia: -chronic, mgm't per primary team respiratory failure s/p intubation 09/02 and extubation 09/06 - with white out of left lung - 09/04 s/p chest tube placement. cct 35 min
[2017-09-07] MEDS ORDERED: LABETALOL HCL 5 MG/1 ML (100MG/20 ML VIAL) ONE (10:47)
--- NOTE | 2017-09-07 10:48 | PN ---
Progress Note, [employer] - Note Progress Note: Pt intubated 4/8 in the evening and extubated yesterday. During today's sp/sw evaluation, voice initially moderately dysphonic, but with repeated use voice improved somewhat. Pt is able to repeat words but mckay not initiate speech or any form of communication. He undestands simple directives. Swallow reflex is delayed in onset, and repeated swallows initiated, likely ic/ w stasis pharynx. One instance of vocal wetness. No volitional or reflexive cough. Pt eats regular food at home and thin liquids. He does cough on rice particles at home and eats rapidly and impulsively. He has never had a swallowing evaluation. IMP: risk of aspiration PED (postextubation dysphagia) with likely edematous vocal cord. Left side of upper lip quite swollen Likely baseline dysphagia as well but functional REC: Crush meds according to communication equipment mechanic's guidelines and give in applesauce Ideally continue NPO until tomorrow, to allow improved laryngeal structure/ function If improved medically,trial of Dys puree/honey thick liquid on tsp, magic cup, ensure pudding Monitor PO tolerance To reassess nextr week to upgrade diet/indication for MBS?
--- NOTE | 2017-09-07 12:58 | PN ---
Physical Exam: SUBJECTIVE: Patient seen and examined at bedside in ICU. Undergoing HD. OBJECTIVE: Vital Signs Period Temp Pulse Resp BP Sys/Mora Pulse Ox Last 24 Hr 97.8 F-99.3 F 81-116 16-26 142-188/96-132 98-100 GENERAL: The patient is awake, eyes open. Responds to tactile stimuli. Non verbal at baseline. No sign of distress. LUNGS: Anterior breath sounds CTA HEART: Regular rate and rhythm, S1, S2 without murmur, rub or gallop ABDOMEN: Soft, nontender, nondistended, hypoactive bowel sounds, no guarding, no rebound UPPER EXTREMITIES: 2+ pulses, warm, well-perfused, 1-2+ edema, wrist restraints LOWER EXTREMITIES: 2+ pulses, warm, well-perfused, 2-3+ edema Laboratory Results - last 24 hr 08/29/17 09/03/17 09/05/17 20:00 08:30 06:15 WBC RBC Hgb Hct MCV MCH MCHC RDW Plt Count MPV Neutrophils % Lymphocytes % Monocytes % Eosinophils % Basophils % Sodium Potassium Chloride Carbon Dioxide Anion Gap BUN Creatinine Creat Clearance w eGFR Random Glucose Calcium Phosphorus Magnesium Total Bilirubin AST ALT Alkaline Phosphatase Total Protein Albumin Stool Occult Blood Cold Agglutinins Negative Hepatitis A Ab Total Positive Hep Bs Antigen Negative Hep Bs Antibody Non reactive Hep B Core Total Ab Negative Blood Type O POSITIVE Antibody Screen Negative Crossmatch See Detail 09/06/17 09/07/17 09/07/17 16:15 06:00 06:00 WBC 10.6 H RBC 2.83 L Hgb 8.4 L Hct 24.4 L MCV 86.0 MCH 29.6 MCHC 34.4 RDW 15.0 Plt Count 545 H MPV 7.1 L Neutrophils % 72.9 Lymphocytes % 16.2 Monocytes % 8.9 Eosinophils % 1.4 Basophils % 0.6 Sodium 140 Potassium 4.6 Chloride 99 Carbon Dioxide 30 Anion Gap 11 BUN 30 H D Creatinine 6.8 H Creat Clearance w eGFR 10.14 Random Glucose 93 Calcium 7.9 L Phosphorus 8.3 H Magnesium 2.1 Total Bilirubin 0.4 D AST 20 D ALT 11 L Alkaline Phosphatase 62 Total Protein 4.8 L Albumin 1.4 L Stool Occult Blood Negative Cold Agglutinins Hepatitis A Ab Total Hep Bs Antigen Hep Bs Antibody Hep B Core Total Ab Blood Type Antibody Screen Crossmatch Active Medications Generic Name Dose Route Start Last Admin Trade Name Freq PRN Reason Stop Dose Admin Acetaminophen 650 mg 09/01/17 17:04 09/04/17 02:40 Tylenol - PO 650 mg Q6H PRN Administration fever Albuterol/Ipratropium 1 amp 09/03/17 08:19 09/07/17 11:32 Duoneb - NEB [address] Administration Amino Acids 30 ml 09/03/17 16:15 09/07/17 09:25 Prosource No Carb Liquid Pkt NGT Not Given DAILY [facility] Chlorhexidine Gluconate 1 applic 08/29/17 22:00 09/07/17 05:30 Hibiclens For Decolonization - TP [address] Administration Docusate Sodium 100 mg 09/04/17 10:00 Colace Liquid - NGT TID PRN CONSTIPATION Piperacillin Sod/Tazobactam 50 mls @ 100 mls/hr 09/02/17 10:00 09/07/17 09:25 Sod 2.25 gm/ Dextrose IVPB 100 mls/hr Q8H-IV LANE Administration Protocol Sodium Chloride 250 mls @ 3,000 mls/hr 09/06/17 16:21 Normal Saline - IV 09/07/17 16:21 PRN PRN Hypotension during Dialysis Labetalol HCl 1,000 mg/ 1,000 mls @ 120 mls/hr 09/06/17 19:30 09/07/17 03:30 Dextrose IV 2 mg/min TITR LANE 120 mls/hr Protocol Titration 2 MG/MIN Lacosamide 100 mg 09/06/17 22:00 09/07/17 09:24 Vimpat Injection - IVPB [address] Administration Metoprolol Tartrate 5 mg 09/03/17 14:46 09/06/17 15:16 Lopressor Injection - IVPUSH 5 mg Q4H PRN Administration HYPERTENSION Pantoprazole Sodium 40 mg 09/03/17 13:00 09/07/17 09:24 Protonix Iv IVPUSH [address] Administration ASSESSMENT/PLAN 22 year-old male with PMH significant for HTN, autism, and epilepsy. Admitted for pneumonia, ANNA, hypertensive emergency. Hospital course complicated by acute respiratory failure, requiring intubation and emergent HD. Acute hypoxic respiratory failure, resolved --extubated, on face tent Left pleural effusion with loculation --s/p thoracentesis 09/02 --s/p pigtail 09/04 --parapneumonic vs aspiration --cultures pending; path negative for malignancy --serial cxr's --possible VATS if no expansion Severe sepsis secondary to pneumonia --afebrile, leukocytosis resolved --continue Zosyn (day #6); per ID continue abx another 48 hours --duonebs Acute Renal failure --CR 20.5 on admission, 6.8 today --HD today --permacath Sunday --suspected glomerulonephritis, biopsy next week Hypertensive emergency --HD today --labetolol drip, metoprolol IVP prn Epilepsy --continue Vimpat DVT prophylaxis: SCDs Dispo: continues to require ICU level care. Full code. Visit type - Emergency Visit Emergency Visit: Yes ED Registration Date: 08/29/17 Care time: The patient presented to the Emergency Department on the above date and was hospitalized for further evaluation of their emergent condition. - New Patient This patient is new to me today: Yes Date on this admission: 09/07/17 - Critical Care Critical Care patient: Yes Total Critical Care Time (in minutes): 35 Critical Care Statement: The care of this patient involved high complexity decision making to prevent further life threatening deterioration of the patient 's condition and/or to evaluate & treat vital organ system(s) failure or risk of failure.
[2017-09-07] MEDS ORDERED: amLODIPine BESYLATE 10 MG TABLET (FP) PO SCH (13:00)
[2017-09-07] MEDS ORDERED: CARVEDILOL 6.25 MG TABLET (FP) PO SCH ×2 (13:00→14:04)
--- NOTE | 2017-09-07 13:22 | PN ---
Teaching Attending Note Name of Resident: Rashel Iniguez ATTENDING PHYSICIAN STATEMENT I saw and evaluated the patient. I reviewed the resident's note and discussed the case with the resident. I agree with the resident's findings and plan as documented. SUBJECTIVE: Patient seen and examined in the ICU. Awake and alert on FM O2. CT continues to drain. CXR: Left pleural effusion / catheter intact OBJECTIVE: Intake & Output 09/04/17 09/05/17 09/06/17 09/07/17 23:59 23:59 23:59 23:59 Intake Total 2476 2368.8 1345.4 738 Output Total 2610 175 360 0 Balance -134 2193.8 985.4 738 Weight 206 lb 194 lb 3 oz 194 lb 0.108 oz 191 lb 9.307 oz Last Vital Signs Temp Pulse Resp BP Pulse Ox 97.8 F 84 18 147/94 99 09/07/17 11:55 09/07/17 13:00 09/07/17 13:00 09/07/17 13:00 09/07/17 11:33 Active Medications Acetaminophen (Tylenol -) 650 mg PO Q6H PRN PRN Reason: fever Last Admin: 09/04/17 02:40 Dose: 650 mg Albuterol/Ipratropium (Duoneb -) 1 amp NEB RQID [facility] Last Admin: 09/07/17 11:32 Dose: 1 amp Amino Acids (Prosource No Carb Liquid Pkt) 30 ml NGT DAILY [facility] Last Admin: 09/07/17 09:25 Dose: Not Given Amlodipine Besylate (Norvasc -) 10 mg PO DAILY [facility] Carvedilol (Coreg -) 6.25 mg PO BID [facility] Chlorhexidine Gluconate (Hibiclens For Decolonization -) 1 applic TP HS [facility] Last Admin: 09/07/17 05:30 Dose: 1 applic Docusate Sodium (Colace Liquid -) 100 mg NGT TID PRN PRN Reason: CONSTIPATION Hydralazine HCl (Apresoline -) 50 mg PO TID [facility] Piperacillin Sod/Tazobactam (Sod 2.25 gm/ Dextrose) 50 mls @ 100 mls/hr IVPB Q8H-IV LANE PRN Reason: Protocol Last Admin: 09/07/17 09:25 Dose: 100 mls/hr Sodium Chloride (Normal Saline -) 250 mls @ 3,000 mls/hr IV PRN PRN PRN Reason: Hypotension during Dialysis Stop: 09/07/17 16:21 Labetalol HCl 1,000 mg/ (Dextrose) 1,000 mls @ 120 mls/hr IV TITR LANE; 2 MG/MIN PRN Reason: Protocol Last Titration: 09/07/17 03:30 Dose: 2 mg/min, 120 mls/hr Lacosamide (Vimpat Injection -) 100 mg IVPB BID [facility] Last Admin: 09/07/17 09:24 Dose: 100 mg Metoprolol Tartrate (Lopressor Injection -) 5 mg IVPUSH Q4H PRN PRN Reason: HYPERTENSION Last Admin: 09/06/17 15:16 Dose: 5 mg Pantoprazole Sodium (Protonix Iv) 40 mg IVPUSH DAILY [facility] Last Admin: 09/07/17 09:24 Dose: 40 mg Gen: Awake and alert Heart: RRR Lung: decreased breath sounds on the left, Left pigtail catheter Abd: soft, nontender Ext: + edema Laboratory Results - last 24 hr 08/29/17 09/03/17 09/05/17 20:00 08:30 06:15 WBC RBC Hgb Hct MCV MCH MCHC RDW Plt Count MPV Neutrophils % Lymphocytes % Monocytes % Eosinophils % Basophils % Sodium Potassium Chloride Carbon Dioxide Anion Gap BUN Creatinine Creat Clearance w eGFR Random Glucose Calcium Phosphorus Magnesium Total Bilirubin AST ALT Alkaline Phosphatase Total Protein Albumin Stool Occult Blood Cold Agglutinins Negative Hepatitis A Ab Total Positive Hep Bs Antigen Negative Hep Bs Antibody Non reactive Hep B Core Total Ab Negative Blood Type O POSITIVE Antibody Screen Negative Crossmatch See Detail 09/06/17 09/07/17 09/07/17 16:15 06:00 06:00 WBC 10.6 H RBC 2.83 L Hgb 8.4 L Hct 24.4 L MCV 86.0 MCH 29.6 MCHC 34.4 RDW 15.0 Plt Count 545 H MPV 7.1 L Neutrophils % 72.9 Lymphocytes % 16.2 Monocytes % 8.9 Eosinophils % 1.4 Basophils % 0.6 Sodium 140 Potassium 4.6 Chloride 99 Carbon Dioxide 30 Anion Gap 11 BUN 30 H D Creatinine 6.8 H Creat Clearance w eGFR 10.14 Random Glucose 93 Calcium 7.9 L Phosphorus 8.3 H Magnesium 2.1 Total Bilirubin 0.4 D AST 20 D ALT 11 L Alkaline Phosphatase 62 Total Protein 4.8 L Albumin 1.4 L Stool Occult Blood Negative Cold Agglutinins Hepatitis A Ab Total Hep Bs Antigen Hep Bs Antibody Hep B Core Total Ab Blood Type Antibody Screen Crossmatch ASSESSMENT AND PLAN: Hypertensive Urgency Acute Kidney Injury requiring HD Acute Hypoxic Respiratory Failure Pneumonia Loculated Pleural Effusion Hyponatremia Severe Sepsis Lactic Acidosis Thrombocytopenia improved Anemia Autism - D/C access after HD - ABX - f/u pleural cultures and cytology - Monitor pigtail catheter drainage - HD per renal with ultrafiltration - will need permacath - monitor H/H - Normal transfusion thresholds - monitor urine output, creatinine - BP control, restart PO meds / taper IV Labetalol - Fio2 to keep Spo2 >90% - PO as tolerated - DVT/GI prophylaxis - continue ICU monitoring Dr Isidro Critical care time spent in reviewing chart, evaluating patient and formulating plan 35 min
[2017-09-07] MEDS ORDERED: hydrALAZINE HCL 50 MG TABLET (FP) PO SCH (14:00)
--- NOTE | 2017-09-07 14:10 | PN ---
Progress Note (short form) - Note Progress Note: cc: htn urgency. S: extubated yesterday, NGT removed. Was made NPO including meds yesterday. As a result PO anti-htn stopped and patient started on labetolol drip with improved bp control. Today cleared for PO medss. Patient non-verbal Current Medications Acetaminophen (Tylenol -) 650 mg PO Q6H PRN PRN Reason: fever Last Admin: 09/04/17 02:40 Dose: 650 mg Albuterol/Ipratropium (Duoneb -) 1 amp NEB RQID [facility] Last Admin: 09/07/17 11:32 Dose: 1 amp Amino Acids (Prosource No Carb Liquid Pkt) 30 ml NGT DAILY [facility] Last Admin: 09/07/17 09:25 Dose: Not Given Carvedilol (Coreg -) 12.5 mg PO BID [facility] Chlorhexidine Gluconate (Hibiclens For Decolonization -) 1 applic TP HS [facility] Last Admin: 09/07/17 05:30 Dose: 1 applic Docusate Sodium (Colace Liquid -) 100 mg NGT TID PRN PRN Reason: CONSTIPATION Piperacillin Sod/Tazobactam (Sod 2.25 gm/ Dextrose) 50 mls @ 100 mls/hr IVPB Q8H-IV LANE PRN Reason: Protocol Last Admin: 09/07/17 09:25 Dose: 100 mls/hr Sodium Chloride (Normal Saline -) 250 mls @ 3,000 mls/hr IV PRN PRN PRN Reason: Hypotension during Dialysis Stop: 09/07/17 16:21 Labetalol HCl 1,000 mg/ (Dextrose) 1,000 mls @ 120 mls/hr IV TITR LANE; 2 MG/MIN PRN Reason: Protocol Last Titration: 09/07/17 03:30 Dose: 2 mg/min, 120 mls/hr Lacosamide (Vimpat Injection -) 100 mg IVPB BID [facility] Last Admin: 09/07/17 09:24 Dose: 100 mg Nifedipine (Procardia Capsule -) 10 mg PO TID [facility] Pantoprazole Sodium (Protonix Iv) 40 mg IVPUSH DAILY [facility] Last Admin: 09/07/17 09:24 Dose: 40 mg pe: Vital Signs - 24 hr 09/06/17 09/06/17 09/06/17 14:20 14:30 15:00 Temperature Pulse Rate 110 H 114 H 110 H Respiratory 18 18 19 Rate Blood Pressure 180/110 188/121 182/112 O2 Sat by Pulse Oximetry (%) 09/06/17 09/06/17 09/06/17 16:00 17:00 18:00 Temperature 99 F Pulse Rate 110 H 112 H 116 H Respiratory 26 H 21 20 Rate Blood Pressure 187/132 187/113 182/119 O2 Sat by Pulse 98 Oximetry (%) 09/06/17 09/06/17 09/06/17 19:00 19:56 20:00 Temperature 99.3 F Pulse Rate 109 H 113 H 101 H Respiratory 16 16 Rate Blood Pressure 165/132 178/117 O2 Sat by Pulse Oximetry (%) 09/06/17 09/06/17 09/06/17 20:25 21:00 21:30 Temperature Pulse Rate 90 93 H Respiratory 21 Rate Blood Pressure 145/104 165/110 O2 Sat by Pulse 98 Oximetry (%) 09/06/17 09/07/17 09/07/17 22:00 00:00 02:00 Temperature 98.9 F Pulse Rate 89 90 93 H Respiratory 21 19 18 Rate Blood Pressure 142/97 142/97 150/96 O2 Sat by Pulse 98 Oximetry (%) 09/07/17 09/07/17 09/07/17 03:30 04:00 06:00 Temperature 98.9 F Pulse Rate 89 91 H 89 Respiratory 16 16 Rate Blood Pressure 153/102 151/101 145/98 O2 Sat by Pulse 100 Oximetry (%) 09/07/17 09/07/17 09/07/17 09:00 10:00 10:52 Temperature 98.5 F Pulse Rate 82 Respiratory 16 18 Rate Blood Pressure 153/110 O2 Sat by Pulse 100 100 Oximetry (%) 09/07/17 09/07/17 09/07/17 11:33 11:55 12:00 Temperature 97.8 F Pulse Rate 81 82 81 Respiratory 18 18 Rate Blood Pressure 150/108 151/102 O2 Sat by Pulse 99 Oximetry (%) 09/07/17 09/07/17 09/07/17 12:30 12:48 13:00 Temperature Pulse Rate 82 81 84 Respiratory 18 18 18 Rate Blood Pressure 145/102 151/107 147/94 O2 Sat by Pulse Oximetry (%) 09/07/17 09/07/17 13:30 14:00 Temperature Pulse Rate 83 82 Respiratory 18 18 Rate Blood Pressure 147/100 148/97 O2 Sat by Pulse Oximetry (%) Intake & Output 09/05/17 09/06/17 09/07/17 09/08/17 07:59 07:59 07:59 07:59 Intake Total 2428.8 2398.8 930.6 Output Total 2630 165 310 Balance -201.2 2233.8 620.6 Weight 194 lb 3 oz 194 lb 0.108 oz 191 lb 9.307 oz nad, cam follows commands and makes eye contact. nad no jvd rrr s1 s2 no mrg bibasilar rales, nl effort. + chest tube. no jaundice diaphoresis pos dp pt trace le edema bl abd nd pos bs CBC, BMP 09/07/17 06:00 09/07/17 06:00 ecg: sr,prolonged qtc, no ischemic changes echo 08/2017: nl lv/rv, no sig valve path cxr: left eff tele: sr/stach a/p: 22 m hx autism, seizures, possible underlying ckd/htn here with ams, respiratory failure/sepsis, anna requiring HD and hypertensive urgency. Cardiac course complicated by mild troponin elevation and prolonged qtc. anna requiring HD: -renal eval in progress, planned for biopsy -currently getting HD here htn urgency/emergency: -elevated at times -now on nicard gtt. will get po procardia today as well and try to titrate off gtt. - 09/03: no IV access for cardene drip. needs po meds through NG tube --> started norvasc 10, hydral 20 tid. - 09/04 remains htn. Uptitrated hydralazine to 50 tid. This afternoon remains hypertensive. Will add carvedilol 6.25 bid. - 09/05: remains htn. will uptitrate coreg to 12.5 bid. - 09/06: extubated today (no longer with NGT) and made NPO. Was unable to get po meds today. --> remains hypertensive. No longer on sedation --> can get IV labetolol drip. Recommend initiation of labetolol drip. - 09/07: BP improved on labetolol drip. Patient cleared for po meds. Discussed with renal. Will initiate coreg 12.5 mg bid, nifedipine 10 mg po tid. uptitrate regimen as needed in order to wean off labetolol drip. -echo here unremarkable abnl ecg: -prolonged qtc, possibly due to anna -qtc improved on repeat ecg. abnormal troponins - likely increased in setting of ANNA. likely demand, no concern for acs. anemia: -chronic, mgm't per primary team respiratory failure s/p intubation 09/02 and extubation 09/06 - with white out of left lung - 09/04 s/p chest tube placement. cct 35 min
[2017-09-07] MEDS ORDERED: NIFEdipine 10 MG CAPSULE (FP) PO SCH (14:15)
[2017-09-07 14:24] LABS: HBSAG SCREEN Negative (Negative); HEP A AB, IGM Negative (Negative); HEP B CORE AB, TOT Negative (Negative)
[2017-09-07] MEDS: LABETALOL HCL INJECTION 1,000 MG in DEXTROSE 5%-WATER - 800 ML IV SCH ×2 (16:00→19:30)
--- NOTE | 2017-09-07 16:03 | PN ---
Progress Note, Physician History of Present Illness: Pt seen and examined at bedside. He is awake and appears comfortable. He is currently getting HD. - Current Medication List Current Medications: Active Medications Acetaminophen (Tylenol -) 650 mg PO Q6H PRN PRN Reason: fever Last Admin: 09/04/17 02:40 Dose: 650 mg Albuterol/Ipratropium (Duoneb -) 1 amp NEB RQID [facility] Last Admin: 09/07/17 11:32 Dose: 1 amp Amino Acids (Prosource No Carb Liquid Pkt) 30 ml NGT DAILY [facility] Last Admin: 09/07/17 09:25 Dose: Not Given Carvedilol (Coreg -) 12.5 mg PO BID [facility] Chlorhexidine Gluconate (Hibiclens For Decolonization -) 1 applic TP HS [facility] Last Admin: 09/07/17 05:30 Dose: 1 applic Docusate Sodium (Colace Liquid -) 100 mg NGT TID PRN PRN Reason: CONSTIPATION Piperacillin Sod/Tazobactam (Sod 2.25 gm/ Dextrose) 50 mls @ 100 mls/hr IVPB Q8H-IV LANE PRN Reason: Protocol Last Admin: 09/07/17 09:25 Dose: 100 mls/hr Sodium Chloride (Normal Saline -) 250 mls @ 3,000 mls/hr IV PRN PRN PRN Reason: Hypotension during Dialysis Stop: 09/07/17 16:21 Labetalol HCl 1,000 mg/ (Dextrose) 1,000 mls @ 120 mls/hr IV TITR LANE; 2 MG/MIN PRN Reason: Protocol Last Titration: 09/07/17 03:30 Dose: 2 mg/min, 120 mls/hr Lacosamide (Vimpat Injection -) 100 mg IVPB BID [facility] Last Admin: 09/07/17 09:24 Dose: 100 mg Nifedipine (Procardia Xl -) [address] Pantoprazole Sodium (Protonix Iv) 40 mg IVPUSH DAILY [facility] Last Admin: 09/07/17 09:24 Dose: 40 mg - Objective Vital Signs: Vital Signs Temperature 97.5 F L 09/07/17 14:00 Pulse Rate 82 09/07/17 15:35 Respiratory Rate 18 09/07/17 15:35 Blood Pressure 133/81 09/07/17 15:35 O2 Sat by Pulse Oximetry (%) 99 09/07/17 11:33 Constitutional: Yes: Calm Eyes: Yes: Conjunctiva Clear HENT: Yes: Atraumatic Cardiovascular: Yes: S1, S2 Respiratory: Yes: On Nasal O2 Gastrointestinal: Yes: Soft Genitourinary: Yes: Incontinence Edema: Yes Edema: LUE: Trace, RUE: Trace Integumentary: Yes: WNL Neurological: Yes: Pre-Existing Deficit Labs: CBC, BMP 09/07/17 06:00 09/07/17 06:00 INR, PTT INR 1.02 (0.82-1.09) 09/04/17 06:00 Fibrinogen 579.0 mg/dL (238-498) H 08/29/17 20:00 - ....Imaging Chest X-ray: Report Reviewed Problem List - Problems (1) Acute renal failure Code(s): N17.9 - ACUTE KIDNEY FAILURE, UNSPECIFIED Qualifiers: Acute renal failure type: unspecified Qualified Code(s): N17.9 - Acute kidney failure, unspecified (2) Anemia Code(s): D64.9 - ANEMIA, UNSPECIFIED (3) Hyperkalemia Code(s): E87.5 - HYPERKALEMIA (4) Hypertensive urgency Code(s): I16.0 - HYPERTENSIVE URGENCY (5) Sepsis Code(s): A41.9 - SEPSIS, UNSPECIFIED ORGANISM Qualifiers: Sepsis type: sepsis due to unspecified organism Qualified Code(s): A41.9 - Sepsis, unspecified organism (6) Thrombocytopenia Code(s): D69.6 - THROMBOCYTOPENIA, UNSPECIFIED (7) Seizure Code(s): R56.9 - UNSPECIFIED CONVULSIONS Assessment/Plan Current Medications Generic Name Dose Route Start Last Admin Trade Name Freq PRN Reason Stop Dose Admin Acetaminophen 650 mg 09/01/17 17:04 09/04/17 02:40 Tylenol - PO 650 mg Q6H PRN Administration fever Albuterol/Ipratropium 1 amp 09/03/17 08:19 09/07/17 11:32 Duoneb - NEB [address] Administration Amino Acids 30 ml 09/03/17 16:15 09/07/17 09:25 Prosource No Carb Liquid Pkt NGT Not Given DAILY LANE Carvedilol 12.5 mg 09/07/17 22:00 Coreg - PO BID [facility] Chlorhexidine Gluconate 1 applic 08/29/17 22:00 09/07/17 05:30 Hibiclens For Decolonization - TP [address] Administration Docusate Sodium 100 mg 09/04/17 10:00 Colace Liquid - NGT TID PRN CONSTIPATION Piperacillin Sod/Tazobactam 50 mls @ 100 mls/hr 09/02/17 10:00 09/07/17 09:25 Sod 2.25 gm/ Dextrose IVPB 100 mls/hr Q8H-IV LANE Administration Protocol Sodium Chloride 250 mls @ 3,000 mls/hr 09/06/17 16:21 Normal Saline - IV 09/07/17 16:21 PRN PRN Hypotension during Dialysis Labetalol HCl 1,000 mg/ 1,000 mls @ 120 mls/hr 09/06/17 19:30 09/07/17 03:30 Dextrose IV 2 mg/min TITR LANE 120 mls/hr Protocol Titration 2 MG/MIN Lacosamide 100 mg 09/06/17 22:00 09/07/17 09:24 Vimpat Injection - IVPB [address] Administration Nifedipine 30 mg 09/07/17 14:45 Procardia Xl - PO DAILY LANE Pantoprazole Sodium 40 mg 09/03/17 13:00 09/07/17 09:24 Protonix Iv IVPUSH [address] Administration Impression 1. ANNA 2. HTN urgency/emergency 3. hyperkalemia 4. hyponatremia 5. autism 6. hx of seizure 7. anemia 8. CKD 9. lactic acidosis improving 10. thrombocytopenia 11. hyperkalemia 12. pleural effusion 13. acute resp failure requiring intubation Plan - HD again today - remove shiley after HD - po bp meds started - bp is improving - permacath on Sunday - kidney biopsy next week - discussed with cardio - discussed with ICU team - monitor platelets - will follow closely Dr Velasquez
[2017-09-07] MEDS: NIFEdipine E.R. 30 MG TABLET (FP) PO SCH (16:30)
--- NOTE | 2017-09-07 16:53 | PN ---
Physical Exam: SUBJECTIVE: Patient seen and examined No acute events overnight. Pt resting comfortably in bed, breathing with face tent oxygen. OBJECTIVE: Vital Signs Period Temp Pulse Resp BP Sys/Mora Pulse Ox Last 24 Hr 97.5 F-99.3 F 81-116 16-21 131-187/81-132 98-100 GENERAL: young male with autism, lying in bed, on vent, alert HEENT: PEARRLA, EOMI LUNGS: CTAB HEART: tachycardia, regular rhythm, no murmurs ABDOMEN: soft, NT, ND EXTREMITIES: 2+ pulses, warm, well-perfused, 1+ edema in all 4 extremities NEUROLOGICAL: EOMI, PEARRLA, unresponsive to commands Laboratory Results - last 24 hr 08/29/17 09/03/17 09/05/17 20:00 08:30 06:15 WBC RBC Hgb Hct MCV MCH MCHC RDW Plt Count MPV Neutrophils % Lymphocytes % Monocytes % Eosinophils % Basophils % Sodium Potassium Chloride Carbon Dioxide Anion Gap BUN Creatinine Creat Clearance w eGFR Random Glucose Calcium Phosphorus Magnesium Total Bilirubin AST ALT Alkaline Phosphatase Total Protein Albumin Stool Occult Blood Cold Agglutinins Negative Hep A IgM Ab Confirm Negative Hepatitis A Ab Total Positive H Hep Bs Antigen Negative Hep Bs Antibody Non reactive Hep B Core Total Ab Negative Blood Type O POSITIVE Antibody Screen Negative Crossmatch See Detail 09/06/17 09/07/17 09/07/17 16:15 06:00 06:00 WBC 10.6 H RBC 2.83 L Hgb 8.4 L Hct 24.4 L MCV 86.0 MCH 29.6 MCHC 34.4 RDW 15.0 Plt Count 545 H MPV 7.1 L Neutrophils % 72.9 Lymphocytes % 16.2 Monocytes % 8.9 Eosinophils % 1.4 Basophils % 0.6 Sodium 140 Potassium 4.6 Chloride 99 Carbon Dioxide 30 Anion Gap 11 BUN 30 H D Creatinine 6.8 H Creat Clearance w eGFR 10.14 Random Glucose 93 Calcium 7.9 L Phosphorus 8.3 H Magnesium 2.1 Total Bilirubin 0.4 D AST 20 D ALT 11 L Alkaline Phosphatase 62 Total Protein 4.8 L Albumin 1.4 L Stool Occult Blood Negative Cold Agglutinins Hep A IgM Ab Confirm Hepatitis A Ab Total Hep Bs Antigen Hep Bs Antibody Hep B Core Total Ab Blood Type Antibody Screen Crossmatch Active Medications Generic Name Dose Route Start Last Admin Trade Name Freq PRN Reason Stop Dose Admin Acetaminophen 650 mg 09/01/17 17:04 09/04/17 02:40 Tylenol - PO 650 mg Q6H PRN Administration fever Albuterol/Ipratropium 1 amp 09/03/17 08:19 09/07/17 11:32 Duoneb - NEB [address] Administration Amino Acids 30 ml 09/03/17 16:15 09/07/17 09:25 Prosource No Carb Liquid Pkt NGT Not Given DAILY LANE Carvedilol 12.5 mg 09/07/17 22:00 Coreg - PO BID LANE Chlorhexidine Gluconate 1 applic 08/29/17 22:00 09/07/17 05:30 Hibiclens For Decolonization - TP [address] Administration Docusate Sodium 100 mg 09/04/17 10:00 Colace Liquid - NGT TID PRN CONSTIPATION Piperacillin Sod/Tazobactam 50 mls @ 100 mls/hr 09/02/17 10:00 09/07/17 09:25 Sod 2.25 gm/ Dextrose IVPB 100 mls/hr Q8H-IV LANE Administration Protocol Labetalol HCl 1,000 mg/ 1,000 mls @ 120 mls/hr 09/06/17 19:30 09/07/17 03:30 Dextrose IV 2 mg/min TITR LANE 120 mls/hr Protocol Titration 2 MG/MIN Lacosamide 100 mg 09/06/17 22:00 09/07/17 09:24 Vimpat Injection - IVPB [address] Administration Nifedipine 30 mg 09/07/17 14:45 09/07/17 16:30 Procardia Xl - PO [address] Administration Pantoprazole Sodium 40 mg 09/03/17 13:00 09/07/17 09:24 Protonix Iv IVPUSH [address] Administration ASSESSMENT/PLAN: 22M w/ hx of autism and seizure disorder who presented with severe HTN, anemia, thrombocytopenia, leukocytosis, hyperkalemia, and ANNA, admitted to ICU. Pt is s/ p PRBCs, platelets, FFP, dialysis, s/p intubation on 09/02, s/p chest tube placement on 09/04, s/p extubation on 09/06. CV #hypertensive urgency/emergency- unclear etiology, improving -labetalol gtt started last night. Today, medications changed to procardia 30mg daily and coreg 12.5 BID. Wean off of labetalol gtt as tolerated. -monitor MAPs -nephrology on board, recs appreciated #troponinemia- likely 2/2 renal failure and demand ischemia from HTN -peaked, no longer trending Resp #acute hypoxic resp failure -pt s/p intubation on 09/02 and extubation on 09/06 -repeat fluid studies consistent with exudative effusion, likely 2/2 PNA -per Dr. Ivy, no need for VATS considering level of improvement. -chest tube drained 315cc yesterday. Continue to monitor Hematology #anemia and thrombocytopenia -hematology on board, recs appreciated. -Hgb of 8.4 this am, stable -platelets wnl ID #sepsis -leukocytosis of 10.6, tachycardia -ID on board, Dr. Moise, recs appreciated. continue zosyn for 48 hours more -f/u sputum cx -f/u Bcx and Ucx -pleural studies consistent with exudative process. Nephro #hyperkalemia and ANNA -nephrology on board, recs appreciated. Renal bx to be done next week. -pt to get permacath on sunday -HD to be done today. remove shiley after. Neuro #seizure disorder -neuro on board, f/u recs. home depakote held given risk of thrombocytopenia. continue lacosamide for seizure ppx. GI #diarrhea- resolved FEN/ppx -no IVF -hyperphosphatemia -nepro tube feeds per -protonix -SCDs due to coagulopathy/anemia Case discussed with attending, Dr. Isidro. -Rashel Iniguez MD PGY1 ICU Team Visit type - Emergency Visit Emergency Visit: Yes ED Registration Date: 08/29/17 Care time: The patient presented to the Emergency Department on the above date and was hospitalized for further evaluation of their emergent condition. - New Patient This patient is new to me today: No - Critical Care Critical Care patient: Yes Total Critical Care Time (in minutes): 38 Critical Care Statement: The care of this patient involved high complexity decision making to prevent further life threatening deterioration of the patient 's condition and/or to evaluate & treat vital organ system(s) failure or risk of failure.
--- NOTE | 2017-09-07 19:04 | PN ---
Progress Note (short form) - Note Progress Note: Patient seen and examined comfortable. resting Last Vital Signs Temp Pulse Resp BP Pulse Ox 98 F 88 20 140/101 100 09/07/17 18:00 09/07/17 18:00 09/07/17 18:00 09/07/17 18:00 09/07/17 16:00 Cor: RSR, No murmurs, No gallops Lungs: Clear to P&A Abd: Soft, Normal bowel sounds, No organomegaly Ext:No significant edema Abnormal Lab Results 08/29/17 09/03/17 09/07/17 20:00 08:30 06:00 WBC 10.6 H RBC 2.83 L Hgb 8.4 L Hct 24.4 L Plt Count 545 H MPV 7.1 L BUN Creatinine Calcium Phosphorus ALT Total Protein Albumin Hepatitis A Ab Total Positive H Crossmatch See Detail 09/07/17 06:00 WBC RBC Hgb Hct Plt Count MPV BUN 30 H D Creatinine 6.8 H Calcium 7.9 L Phosphorus 8.3 H ALT 11 L Total Protein 4.8 L Albumin 1.4 L Hepatitis A Ab Total Crossmatch Active Medications Generic Name Dose Route Start Last Admin Trade Name Freq PRN Reason Stop Dose Admin Acetaminophen 650 mg 09/01/17 17:04 09/04/17 02:40 Tylenol - PO 650 mg Q6H PRN Administration fever Albuterol/Ipratropium 1 amp 09/03/17 08:19 09/07/17 16:25 Duoneb - NEB [address] Administration Amino Acids 30 ml 09/03/17 16:15 09/07/17 09:25 Prosource No Carb Liquid Pkt NGT Not Given DAILY LANE Carvedilol 12.5 mg 09/07/17 22:00 Coreg - PO BID LANE Chlorhexidine Gluconate 1 applic 08/29/17 22:00 09/07/17 05:30 Hibiclens For Decolonization - TP [address] Administration Docusate Sodium 100 mg 09/04/17 10:00 Colace Liquid - NGT TID PRN CONSTIPATION Piperacillin Sod/Tazobactam 50 mls @ 100 mls/hr 09/02/17 10:00 09/07/17 17:20 Sod 2.25 gm/ Dextrose IVPB 100 mls/hr Q8H-IV LANE Administration Protocol Labetalol HCl 1,000 mg/ 1,000 mls @ 120 mls/hr 09/06/17 19:30 09/07/17 16:00 Dextrose IV 1 mg/min TITR LANE 60 mls/hr Protocol Administration 2 MG/MIN Lacosamide 100 mg 09/06/17 22:00 09/07/17 09:24 Vimpat Injection - IVPB [address] Administration Nifedipine 30 mg 09/07/17 14:45 09/07/17 16:30 Procardia Xl - PO [address] Administration Pantoprazole Sodium 40 mg 09/03/17 13:00 09/07/17 09:24 Protonix Iv IVPUSH [address] Administration A/P 22 y/o patient with ANNA/hypertensive crisis, and 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 On HD anemia--multifactorial, CKD continue supportive care
[2017-09-07] MEDS ORDERED: PT OWN MED DRAWER 7, Y5N ONE (21:09)
[2017-09-07] MEDS: CARVEDILOL 12.5 MG TABLET (FP) PO SCH (21:51)
[2017-09-08] MEDS: PIPERACILLIN/TAZOB 2.25 GM 2.25 GM in DEXTROSE 5%-WATER - 50 ML IVPB SCH ×3 (02:30→18:03)
[2017-09-08] MEDS ORDERED: PIPERACILLIN/TAZOBACTAM 2.25 GM VIAL IVPB ONE ×3 (05:02→17:55)
[2017-09-08] MEDS ORDERED: DEXTROSE 5%-WATER - 50 ML IVPB ONE ×3 (05:02→17:56)
[2017-09-08 06:53] LABS: BASO % 0.4 % (0-2.0); EOS % 1.8 % (0-4.5); HEMATOCRIT 28.1 % (35.4-49); HEMOGLOBIN 9.5 GM/dL (11.7-16.9); LYMPH % 16.8 % (8-40); MCH 29.1 pg (25.7-33.7); MEAN CELL VOLUME 85.7 fl (80-96); MONO % 8.5 % (3.8-10.2); NEUT % 72.5 % (42.8-82.8); PLATELET COUNT 588 K/MM3 (134-434); RBC 3.28 M/mm3 (4.00-5.60); RDW 15.2 % (11.9-15.9); WHITE BLOOD COUNT 12.4 K/mm3 (4.0-10.0)
[2017-09-08 07:25] LABS: ALBUMIN 1.5 g/dl (3.4-5.0); ANION GAP 8 (8-16); BILIRUBIN,TOTAL 0.3 mg/dL (0.2-1.0); BLOOD UREA NITROGEN 21 mg/dL (7-18); CALCIUM 7.8 mg/dL (8.5-10.1); CHLORIDE 104 mmol/L (98-107); CO2 31 mmol/L (21-32); CREATININE 5.4 mg/dL (0.7-1.3); GLUCOSE,RANDOM 86 mg/dL (74-106); PHOSPHOROUS 6.1 mg/dL (2.5-4.9); POTASSIUM 4.2 mmol/L (3.5-5.1); SGOT/AST 22 U/L (15-37); SGPT/ALT 13 U/L (12-78); SODIUM 143 mmol/L (136-145)
[2017-09-08 07:27] LABS: ALK PHOS 60 U/L (45-117)
--- NOTE | 2017-09-08 08:43 | PN ---
Progress Note (short form) - Note Progress Note: Patient seen and examined in the ICU. Awake and alert. No acute events overnight. CT outout: 200cc since 7PM. CXR: Improving left effusion OBJECTIVE: Intake & Output 09/05/17 09/06/17 09/07/17 09/08/17 23:59 23:59 23:59 23:59 Intake Total 2368.8 1345.4 1997 770 Output Total 175 360 0 Balance 2193.8 985.4 1997 770 Weight 194 lb 3 oz 194 lb 0.108 oz 191 lb 9.307 oz 179 lb 1 oz Last Vital Signs Temp Pulse Resp BP Pulse Ox 97.9 F 90 11 L 142/100 98 09/08/17 02:00 09/08/17 06:00 09/08/17 06:00 09/08/17 06:00 09/08/17 04:00 Active Medications Acetaminophen (Tylenol -) 650 mg PO Q6H PRN PRN Reason: fever Last Admin: 09/04/17 02:40 Dose: 650 mg Albuterol/Ipratropium (Duoneb -) 1 amp NEB RQID [facility] Last Admin: 09/07/17 21:00 Dose: Not Given Amino Acids (Prosource No Carb Liquid Pkt) 30 ml NGT DAILY [facility] Last Admin: 09/07/17 09:25 Dose: Not Given Carvedilol (Coreg -) 12.5 mg PO BID [facility] Last Admin: 09/07/17 21:51 Dose: 12.5 mg Chlorhexidine Gluconate (Hibiclens For Decolonization -) 1 applic TP HS [facility] Last Admin: 09/07/17 21:53 Dose: 1 applic Docusate Sodium (Colace Liquid -) 100 mg NGT TID PRN PRN Reason: CONSTIPATION Piperacillin Sod/Tazobactam (Sod 2.25 gm/ Dextrose) 50 mls @ 100 mls/hr IVPB Q8H-IV LANE PRN Reason: Protocol Last Admin: 09/08/17 02:30 Dose: 100 mls/hr Labetalol HCl 1,000 mg/ (Dextrose) 1,000 mls @ 120 mls/hr IV TITR LANE; 2 MG/MIN PRN Reason: Protocol Last Admin: 09/07/17 19:30 Dose: 1 mg/min, 60 mls/hr Lacosamide (Vimpat Injection -) 100 mg IVPB BID [facility] Last Admin: 09/07/17 21:54 Dose: 100 mg Nifedipine (Procardia Xl -) 30 mg PO DAILY [facility] Last Admin: 09/07/17 16:30 Dose: 30 mg Pantoprazole Sodium (Protonix Iv) 40 mg IVPUSH DAILY [facility] Last Admin: 09/07/17 09:24 Dose: 40 mg GENERAL: young male with autism, lying in bed, on vent, alert HEENT: PEARRLA, EOMI LUNGS: few rhonchi, left pigtail catheter HEART: tachycardia, regular rhythm, no murmurs ABDOMEN: soft, NT, ND EXTREMITIES: 2+ pulses, warm, well-perfused, 1+ edema in all 4 extremities NEUROLOGICAL: EOMI, PEARRLA, unresponsive to commands Laboratory Results - last 24 hr 08/29/17 09/08/17 09/08/17 20:00 06:30 06:30 WBC 12.4 H RBC 3.28 L Hgb 9.5 L D Hct 28.1 L D MCV 85.7 MCH 29.1 MCHC 34.0 RDW 15.2 Plt Count 588 H MPV 7.0 L Neutrophils % 72.5 Lymphocytes % 16.8 Monocytes % 8.5 Eosinophils % 1.8 Basophils % 0.4 Sodium 143 Potassium 4.2 Chloride 104 Carbon Dioxide 31 Anion Gap 8 BUN 21 H D Creatinine 5.4 H D Creat Clearance w eGFR 13.23 Random Glucose 86 Calcium 7.8 L Phosphorus 6.1 H D Magnesium 2.0 Total Bilirubin 0.3 D AST 22 ALT 13 Alkaline Phosphatase 60 Total Protein 5.0 L Albumin 1.5 L Hep A IgM Ab Confirm Negative Hepatitis A Ab Total Negative Hep Bs Antigen Negative Hep Bs Antibody Non reactive Hep B Core Total Ab Negative ASSESSMENT AND PLAN: Hypertensive Urgency Acute Kidney Injury requiring HD Acute Hypoxic Respiratory Failure Pneumonia Loculated Pleural Effusion Hyponatremia Severe Sepsis Lactic Acidosis Thrombocytopenia improved Anemia Autism - ABX - Monitor pigtail catheter drainage - May need permacath - monitor H/H - Normal transfusion thresholds - monitor urine output, creatinine - BP control, restart PO meds / taper IV Labetalol - Fio2 to keep Spo2 >90% - PO as tolerated - DVT/GI prophylaxis - continue ICU monitoring Dr Isidro Critical care time spent in reviewing chart, evaluating patient and formulating plan 35 min
[2017-09-08] MEDS: ALBUTEROL SO4 2.5/IPRATROPIUM 0.5 INH SOL 3 ML VIAL.NEB. NEB SCH ×4 (08:45→21:00)
--- NOTE | 2017-09-08 08:53 | PN ---
Physical Exam: SUBJECTIVE: Patient seen and examined. Improving left pleural effusion. Chest tube output 250cc's in 24 hours. OBJECTIVE: Vital Signs Period Temp Pulse Resp BP Sys/Mora Pulse Ox Last 24 Hr 97.5 F-98.5 F 80-93 11-20 128-153/78-110 97-100 GENERAL: The patient is awake. Interacts with mother with facial expressions, points to TV, mimics bouncing a ball, waves goodbye. Non verbal at baseline. LUNGS: on face tent; CTA; left pigtail catheter HEART: Regular rate and rhythm, S1, S2 without murmur, rub or gallop ABDOMEN: Soft, nontender, nondistended, hypoactive bowel sounds, no guarding, no rebound UPPER EXTREMITIES: 2+ pulses, warm, well-perfused, 1-2+ edema, mittens LOWER EXTREMITIES: 2+ pulses, warm, well-perfused, 1-2+ edema improved Laboratory Results - last 24 hr 08/29/17 09/08/17 09/08/17 20:00 06:30 06:30 WBC 12.4 H RBC 3.28 L Hgb 9.5 L D Hct 28.1 L D MCV 85.7 MCH 29.1 MCHC 34.0 RDW 15.2 Plt Count 588 H MPV 7.0 L Neutrophils % 72.5 Lymphocytes % 16.8 Monocytes % 8.5 Eosinophils % 1.8 Basophils % 0.4 Sodium 143 Potassium 4.2 Chloride 104 Carbon Dioxide 31 Anion Gap 8 BUN 21 H D Creatinine 5.4 H D Creat Clearance w eGFR 13.23 Random Glucose 86 Calcium 7.8 L Phosphorus 6.1 H D Magnesium 2.0 Total Bilirubin 0.3 D AST 22 ALT 13 Alkaline Phosphatase 60 Total Protein 5.0 L Albumin 1.5 L Hep A IgM Ab Confirm Negative Hepatitis A Ab Total Negative Hep Bs Antigen Negative Hep Bs Antibody Non reactive Hep B Core Total Ab Negative Active Medications Generic Name Dose Route Start Last Admin Trade Name Freq PRN Reason Stop Dose Admin Acetaminophen 650 mg 09/01/17 17:04 09/04/17 02:40 Tylenol - PO 650 mg Q6H PRN Administration fever Albuterol/Ipratropium 1 amp 09/03/17 08:19 09/07/17 21:00 Duoneb - NEB Not Given RQID LANE Amino Acids 30 ml 09/03/17 16:15 09/07/17 09:25 Prosource No Carb Liquid Pkt NGT Not Given DAILY LANE Carvedilol 12.5 mg 09/07/17 22:00 09/07/17 21:51 Coreg - PO 12.[address] Administration Chlorhexidine Gluconate 1 applic 08/29/17 22:00 09/07/17 21:53 Hibiclens For Decolonization - TP [address] Administration Docusate Sodium 100 mg 09/04/17 10:00 Colace Liquid - NGT TID PRN CONSTIPATION Piperacillin Sod/Tazobactam 50 mls @ 100 mls/hr 09/02/17 10:00 09/08/17 02:30 Sod 2.25 gm/ Dextrose IVPB 100 mls/hr Q8H-IV LANE Administration Protocol Labetalol HCl 1,000 mg/ 1,000 mls @ 120 mls/hr 09/06/17 19:30 09/07/17 19:30 Dextrose IV 1 mg/min TITR LANE 60 mls/hr Protocol Administration 2 MG/MIN Lacosamide 100 mg 09/06/17 22:00 09/07/17 21:54 Vimpat Injection - IVPB [address] Administration Nifedipine 30 mg 09/07/17 14:45 09/07/17 16:30 Procardia Xl - PO [address] Administration Pantoprazole Sodium 40 mg 09/03/17 13:00 09/07/17 09:24 Protonix Iv IVPUSH [address] Administration ASSESSMENT/PLAN: 22 year-old male with PMH significant for HTN, autism, and epilepsy. Admitted for pneumonia, ANNA, hypertensive emergency. Hospital course complicated by acute respiratory failure, requiring intubation and emergent HD. 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 Full code. Visit type - Emergency Visit Emergency Visit: Yes ED Registration Date: 08/29/17 Care time: The patient presented to the Emergency Department on the above date and was hospitalized for further evaluation of their emergent condition. - New Patient This patient is new to me today: No - Critical Care Critical Care patient: Yes Total Critical Care Time (in minutes): 35 Critical Care Statement: The care of this patient involved high complexity decision making to prevent further life threatening deterioration of the patient 's condition and/or to evaluate & treat vital organ system(s) failure or risk of failure.
--- NOTE | 2017-09-08 09:40 | PN ---
Progress Note (short form) - Note Progress Note: chart reviewed s/p chest tube placement- about 500 cc of cloudy serous fluid in chest tube- counts /gram stain pending extubated today Vital Signs Period Temp Pulse Resp BP Sys/Mora Pulse Ox Last 24 Hr 97.5 F-98.5 F 81-93 11-20 128-153/80-110 97-100 cor-rrr lungs decreased bs at bases abd soft, nt ext no edema CBC, BMP 09/08/17 06:30 09/08/17 06:30 Microbiology 09/02/17 16:20 Blood - Peripheral Venous Blood Culture - Preliminary NO GROWTH OBTAINED AFTER 96 HOURS, INCUBATION TO CONTINUE FOR 1 DAYS. 09/04/17 16:30 Sputum - Endotrachea Suction/Ventilator Gram Stain - Final 09/04/17 16:30 Sputum - Endotrachea Suction/Ventilator Sputum Culture - Preliminary 09/04/17 11:45 Pleural Fluid Gram Stain - Final 09/04/17 11:45 Pleural Fluid Body Fluid Culture - Final NO GROWTH OF AEROBIC ORGANISMS AFTER 48 HOURS INCUBATION 09/04/17 11:45 Pleural Fluid Anaerobic Culture - Final NO ANAEROBES WERE ISOLATED 09/04/17 11:45 Pleural Fluid AFB Smear Concentration - Final 09/04/17 11:45 Pleural Fluid Mycobacterial Culture - Preliminary 09/05/17 23:00 Stool Clostridium difficile Antigen (JONAH) - Final 09/05/17 23:00 Stool Clostridium difficile Toxin Assay - Final 09/01/17 15:00 Blood - Central Line Blood Culture - Final NO GROWTH AFTER 5 DAYS INCUBATION 09/01/17 15:00 Blood - Central Line Blood Culture - Final NO GROWTH AFTER 5 DAYS INCUBATION 09/02/17 16:14 Pleural Fluid Gram Stain - Final 09/02/17 16:14 Pleural Fluid Body Fluid Culture - Final NO GROWTH OF AEROBIC ORGANISMS AFTER 48 HOURS INCUBATION 09/02/17 16:14 Pleural Fluid Anaerobic Culture - Final NO ANAEROBES WERE ISOLATED 09/04/17 11:45 Pleural Fluid VANESSA Preparation - Preliminary 09/04/17 11:45 Pleural Fluid Fungal Culture - Preliminary 09/02/17 18:00 Urine - Urine Clean Catch Urine Culture - Final NO GROWTH OBTAINED 08/29/17 12:37 Blood - Peripheral Venous Blood Culture - Final NO GROWTH AFTER 5 DAYS INCUBATION 08/29/17 12:37 Blood - Peripheral Venous Blood Culture - Final NO GROWTH AFTER 5 DAYS INCUBATION 08/29/17 10:52 Urine - Urine Clean Catch Urine Culture - Final NO GROWTH OBTAINED meds reviewed a/p respiratory failure-extubated today pleural effusion- s/p chest tube- htn Acute renal failure- continue zosyn HTN cefprozil allergy- rash has taken augmentin and keflex in the past per Mom
[2017-09-08] MEDS: NIFEdipine E.R. 30 MG TABLET (FP) PO SCH (09:52)
[2017-09-08] MEDS: PANTOPRAZOLE SODIUM 40 MG VIAL IVPUSH SCH (09:52)
[2017-09-08] MEDS: CARVEDILOL 12.5 MG TABLET (FP) PO SCH ×2 (09:52→22:21)
[2017-09-08] MEDS: AMINO ACIDS/PROTEIN HYDROLYS 30 ML LIQUID.PKT NGT SCH (09:52)
[2017-09-08] MEDS: Lacosamide 200 MG/20 ML VIAL IVPB SCH ×2 (09:53→22:21)
--- NOTE | 2017-09-08 11:22 | PN ---
Progress Note, Physician History of Present Illness: No events overnight Arm edema decreasing - Current Medication List Current Medications: Active Medications Acetaminophen (Tylenol -) 650 mg PO Q6H PRN PRN Reason: fever Last Admin: 09/04/17 02:40 Dose: 650 mg Albuterol/Ipratropium (Duoneb -) 1 amp NEB RQID [facility] Last Admin: 09/08/17 08:45 Dose: 1 amp Amino Acids (Prosource No Carb Liquid Pkt) 30 ml NGT DAILY [facility] Last Admin: 09/08/17 09:52 Dose: 30 ml Carvedilol (Coreg -) 12.5 mg PO BID [facility] Last Admin: 09/08/17 09:52 Dose: 12.5 mg Chlorhexidine Gluconate (Hibiclens For Decolonization -) 1 applic TP HS [facility] Last Admin: 09/07/17 21:53 Dose: 1 applic Docusate Sodium (Colace Liquid -) 100 mg NGT TID PRN PRN Reason: CONSTIPATION Piperacillin Sod/Tazobactam (Sod 2.25 gm/ Dextrose) 50 mls @ 100 mls/hr IVPB Q8H-IV LANE PRN Reason: Protocol Last Admin: 09/08/17 09:53 Dose: 100 mls/hr Labetalol HCl 1,000 mg/ (Dextrose) 1,000 mls @ 120 mls/hr IV TITR LANE; 2 MG/MIN PRN Reason: Protocol Last Admin: 09/07/17 19:30 Dose: 1 mg/min, 60 mls/hr Lacosamide (Vimpat Injection -) 100 mg IVPB BID [facility] Last Admin: 09/08/17 09:53 Dose: 100 mg Nifedipine (Procardia Xl -) 30 mg PO DAILY [facility] Last Admin: 09/08/17 09:52 Dose: 30 mg Pantoprazole Sodium (Protonix Iv) 40 mg IVPUSH DAILY [facility] Last Admin: 09/08/17 09:52 Dose: 40 mg - Objective Vital Signs: Vital Signs Temperature 98 F 09/08/17 10:00 Pulse Rate 88 09/08/17 10:00 Respiratory Rate 14 09/08/17 10:00 Blood Pressure 149/102 09/08/17 10:00 O2 Sat by Pulse Oximetry (%) 100 09/08/17 09:36 Constitutional: Yes: No Distress, Calm Eyes: Yes: WNL HENT: Yes: WNL Neck: Yes: WNL Cardiovascular: Yes: Regular Rate and Rhythm Respiratory: Yes: CTA Bilaterally Gastrointestinal: Yes: Normal Bowel Sounds Extremities: Yes: WNL Edema: No Labs: CBC, BMP 09/08/17 06:30 09/08/17 06:30 INR, PTT INR 1.02 (0.82-1.09) 09/04/17 06:00 Fibrinogen 579.0 mg/dL (238-498) H 08/29/17 20:00 Assessment/Plan a/p: 22 m hx autism, seizures, possible underlying ckd/htn here with ams, respiratory failure/sepsis, anna requiring HD and hypertensive urgency. Cardiac course complicated by mild troponin elevation and prolonged qtc. anna requiring HD: -renal eval in progress, planned for biopsy -currently getting HD here htn urgency/emergency: -elevated at times -now on nicard gtt. will get po procardia today as well and try to titrate off gtt. - 09/03: no IV access for cardene drip. needs po meds through NG tube --> started norvasc 10, hydral 20 tid. - 09/04 remains htn. Uptitrated hydralazine to 50 tid. This afternoon remains hypertensive. Will add carvedilol 6.25 bid. - 09/05: remains htn. will uptitrate coreg to 12.5 bid. - 09/06: extubated today (no longer with NGT) and made NPO. Was unable to get po meds today. --> remains hypertensive. No longer on sedation --> can get IV labetolol drip. Recommend initiation of labetolol drip. - 09/07: BP improved on labetolol drip. Patient cleared for po meds. Discussed with renal. Will initiate coreg 12.5 mg bid, nifedipine 10 mg po tid. uptitrate regimen as needed in order to wean off labetolol drip. 09/08: BP well controlled this afternoon 130/84mmHg on oral regimen as outlined above. -echo here unremarkable abnl ecg: -prolonged qtc, possibly due to anna -qtc improved on repeat ecg. abnormal troponins - likely increased in setting of ANNA. likely demand, no concern for acs. anemia: -chronic, mgm't per primary team respiratory failure s/p intubation 09/02 and extubation 09/06 - with white out of left lung - 09/04 s/p chest tube placement.
--- NOTE | 2017-09-08 15:47 | PN ---
Progress Note (short form) - Note Progress Note: covering dr palencia icu ANNA HTN urgency/emergency hyperkalemia hyponatremia autism hx of seizure anemia CKD lactic acidosis improving thrombocytopenia hyperkalemia pleural effusion/chest tube acute resp failure requiring intubation Last Vital Signs Temp Pulse Resp BP Pulse Ox 98.3 F 88 14 130/84 100 09/08/17 13:57 09/08/17 13:57 09/08/17 13:57 09/08/17 13:57 09/08/17 10:00 Intake & Output 09/05/17 09/06/17 09/07/17 09/08/17 23:59 23:59 23:59 23:59 Intake Total 2368.8 1345.4 1997 770 Output Total 175 360 0 Balance 2193.8 985.4 1997 770 Weight 194 lb 3 oz 194 lb 0.108 oz 191 lb 9.307 oz 179 lb 1 oz Lungs clear heart reg abd soft Ext no edema CBC, BMP 09/08/17 06:30 09/08/17 06:30 IMP- anna on hd htn urgency s/p resp failure autism Plan - HD on Sunday - follow BP on oral meds - permacath on Sunday after catheter placement - kidney biopsy next week - discussed with ICU team
[2017-09-08] MEDS ORDERED: PT OWN MED DRAWER 7, Y5N ONE (22:18)
[2017-09-08] MEDS: CHLORHEXIDINE GLUCONATE 4% CLEANSER FOR DECOLONIZATION TP SCH (22:21)
[2017-09-09] MEDS: PIPERACILLIN/TAZOB 2.25 GM 2.25 GM in DEXTROSE 5%-WATER - 50 ML IVPB SCH ×3 (02:00→17:50)
[2017-09-09] MEDS ORDERED: PIPERACILLIN/TAZOBACTAM 2.25 GM VIAL IVPB ONE ×4 (03:12→20:53)
[2017-09-09] MEDS ORDERED: DEXTROSE 5%-WATER - 50 ML IVPB ONE ×4 (03:13→20:54)
--- NOTE | 2017-09-09 08:47 | PN ---
Physical Exam: SUBJECTIVE: Patient seen and examined at bedside in ICU. Watching a video. OBJECTIVE: Vital Signs Period Temp Pulse Resp BP Sys/Mora Pulse Ox Last 24 Hr 97.5 F-98.3 F 50-98 14-26 111-160/44-110 97-100 GENERAL: Awake, alert, no signs of distress. LUNGS: on face tent; CTA; left pigtail catheter HEART: Regular rate and rhythm, S1, S2 without murmur, rub or gallop ABDOMEN: Soft, nontender, nondistended, hypoactive bowel sounds, no guarding, no rebound UPPER EXTREMITIES: 2+ pulses, warm, well-perfused, 1-2+ edema, mittens LOWER EXTREMITIES: 2+ pulses, warm, well-perfused, 1-2+ edema improved Current Medications Generic Name Dose Route Start Last Admin Trade Name Freq PRN Reason Stop Dose Admin Acetaminophen 650 mg 09/01/17 17:04 09/04/17 02:40 Tylenol - PO 650 mg Q6H PRN Administration fever Albuterol/Ipratropium 1 amp 09/03/17 08:19 09/09/17 12:55 Duoneb - NEB [address] Administration Amino Acids 30 ml 09/03/17 16:15 09/09/17 09:27 Prosource No Carb Liquid Pkt NGT [address] Administration Carvedilol 12.5 mg 09/07/17 22:00 09/09/17 09:28 Coreg - PO 12.[address] Administration Chlorhexidine Gluconate 1 applic 08/29/17 22:00 09/08/17 22:21 Hibiclens For Decolonization - TP [address] Administration Docusate Sodium 100 mg 09/04/17 10:00 Colace Liquid - NGT TID PRN CONSTIPATION Piperacillin Sod/Tazobactam 50 mls @ 100 mls/hr 09/02/17 10:00 09/09/17 09:29 Sod 2.25 gm/ Dextrose IVPB 100 mls/hr Q8H-IV LANE Administration Protocol Labetalol HCl 1,000 mg/ 1,000 mls @ 120 mls/hr 09/06/17 19:30 09/07/17 19:30 Dextrose IV 1 mg/min TITR LANE 60 mls/hr Protocol Administration 2 MG/MIN Lacosamide 100 mg 09/06/17 22:00 09/09/17 09:28 Vimpat Injection - IVPB [address] Administration Nifedipine 60 mg 09/09/17 10:05 Procardia Xl - PO DAILY LANE ASSESSMENT/PLAN 22 year-old male with PMH significant for HTN, autism, and epilepsy. Admitted for pneumonia, ANNA, hypertensive emergency. Hospital course complicated by acute respiratory failure, requiring intubation and emergent HD. Acute hypoxic respiratory failure, resolved --extubated, on face tent Left pleural effusion with loculation --s/p thoracentesis 09/02 --s/p pigtail 09/04; CT output ~200cc over past 24 hours --cultures negative to date; path negative for malignancy --serial cxr's Severe sepsis secondary to pneumonia --afebrile, leukocytosis resolved --continue Zosyn (day #9); consider d/c'ing per Dr. Moise's note of 09/07 --duonebs Acute renal failure --CR 20.5, trending down to 5.4 yesterday, bump up today to 8.5 --permacath Sunday --biopsy next week Hypertensive emergency --BP increased last night, restarted labetolol drip Epilepsy --continue Vimpat DVT prophylaxis: SCDs Dispo: continues to require ICU level care. Full code. Visit type - Emergency Visit Emergency Visit: Yes ED Registration Date: 08/29/17 Care time: The patient presented to the Emergency Department on the above date and was hospitalized for further evaluation of their emergent condition. - New Patient This patient is new to me today: No - Critical Care Critical Care patient: Yes Total Critical Care Time (in minutes): 35 Critical Care Statement: The care of this patient involved high complexity decision making to prevent further life threatening deterioration of the patient 's condition and/or to evaluate & treat vital organ system(s) failure or risk of failure.
[2017-09-09] MEDS: ALBUTEROL SO4 2.5/IPRATROPIUM 0.5 INH SOL 3 ML VIAL.NEB. NEB SCH ×4 (09:00→20:46)
[2017-09-09] MEDS: AMINO ACIDS/PROTEIN HYDROLYS 30 ML LIQUID.PKT NGT SCH (09:27)
[2017-09-09] MEDS: PANTOPRAZOLE SODIUM 40 MG VIAL IVPUSH SCH (09:28)
[2017-09-09] MEDS: CARVEDILOL 12.5 MG TABLET (FP) PO SCH (09:28)
[2017-09-09] MEDS: Lacosamide 200 MG/20 ML VIAL IVPB SCH ×2 (09:28→21:12)
[2017-09-09] MEDS: NIFEdipine E.R. 30 MG TABLET (FP) PO SCH (09:28)
[2017-09-09] MEDS ORDERED: NIFEdipine E.R. 30 MG TABLET (FP) PO SCH (10:05)
--- NOTE | 2017-09-09 10:10 | PN ---
Progress Note (short form) - Note Progress Note: Patient seen and examined in the ICU. Awake and alert. No acute events overnight. CT output: 275cc OBJECTIVE: Intake & Output 09/06/17 09/07/17 09/08/17 09/09/17 23:59 23:59 23:59 23:59 Intake Total 1345.4 1997 1340 520 Output Total 360 0 2275 275 Balance 985.4 1997 -935 245 Weight 194 lb 0.108 oz 191 lb 9.307 oz 179 lb 1 oz 180 lb 1.883 oz Last Vital Signs Temp Pulse Resp BP Pulse Ox 97.5 F L 89 14 157/110 97 09/09/17 02:00 09/09/17 06:00 09/09/17 06:00 09/09/17 06:00 09/09/17 04:00 Active Medications Acetaminophen (Tylenol -) 650 mg PO Q6H PRN PRN Reason: fever Last Admin: 09/04/17 02:40 Dose: 650 mg Albuterol/Ipratropium (Duoneb -) 1 amp NEB RQID [facility] Last Admin: 09/09/17 09:00 Dose: 1 amp Amino Acids (Prosource No Carb Liquid Pkt) 30 ml NGT DAILY [facility] Last Admin: 09/09/17 09:27 Dose: 30 ml Carvedilol (Coreg -) 12.5 mg PO BID [facility] Last Admin: 09/09/17 09:28 Dose: 12.5 mg Chlorhexidine Gluconate (Hibiclens For Decolonization -) 1 applic TP HS [facility] Last Admin: 09/08/17 22:21 Dose: 1 applic Docusate Sodium (Colace Liquid -) 100 mg NGT TID PRN PRN Reason: CONSTIPATION Piperacillin Sod/Tazobactam (Sod 2.25 gm/ Dextrose) 50 mls @ 100 mls/hr IVPB Q8H-IV LANE PRN Reason: Protocol Last Admin: 09/09/17 09:29 Dose: 100 mls/hr Labetalol HCl 1,000 mg/ (Dextrose) 1,000 mls @ 120 mls/hr IV TITR LANE; 2 MG/MIN PRN Reason: Protocol Last Admin: 09/07/17 19:30 Dose: 1 mg/min, 60 mls/hr Lacosamide (Vimpat Injection -) 100 mg IVPB BID [facility] Last Admin: 09/09/17 09:28 Dose: 100 mg Nifedipine (Procardia Xl -) 60 mg PO DAILY [facility] GENERAL: young male with autism, lying in bed, on vent, alert HEENT: PEARRLA, EOMI LUNGS: few rhonchi, left pigtail catheter HEART: tachycardia, regular rhythm, no murmurs ABDOMEN: soft, NT, ND EXTREMITIES: 2+ pulses, warm, well-perfused, 1+ edema in all 4 extremities NEUROLOGICAL: EOMI, PEARRLA, unresponsive to commands ASSESSMENT AND PLAN: Hypertensive Urgency Acute Kidney Injury requiring HD Acute Hypoxic Respiratory Failure Pneumonia Loculated Pleural Effusion Hyponatremia Severe Sepsis Lactic Acidosis Thrombocytopenia improved Anemia Autism - ABX - Monitor pigtail catheter drainage - monitor H/H - Normal transfusion thresholds - monitor urine output, creatinine - Increase Procardia - Taper IV Labetalol - O2 as needed - PO as tolerated - DVT/GI prophylaxis - continue ICU monitoring Dr Isidro Critical care time spent in reviewing chart, evaluating patient and formulating plan 35 min
--- NOTE | 2017-09-09 11:12 | PN ---
Progress Note, Physician History of Present Illness: Weaned off Labatelol overnight but restarted for hypertensive episode (SBP>150s) No cardiovascular complaints - Current Medication List Current Medications: Active Medications Acetaminophen (Tylenol -) 650 mg PO Q6H PRN PRN Reason: fever Last Admin: 09/04/17 02:40 Dose: 650 mg Albuterol/Ipratropium (Duoneb -) 1 amp NEB RQID [facility] Last Admin: 09/09/17 09:00 Dose: 1 amp Amino Acids (Prosource No Carb Liquid Pkt) 30 ml NGT DAILY [facility] Last Admin: 09/09/17 09:27 Dose: 30 ml Carvedilol (Coreg -) 12.5 mg PO BID [facility] Last Admin: 09/09/17 09:28 Dose: 12.5 mg Chlorhexidine Gluconate (Hibiclens For Decolonization -) 1 applic TP HS [facility] Last Admin: 09/08/17 22:21 Dose: 1 applic Docusate Sodium (Colace Liquid -) 100 mg NGT TID PRN PRN Reason: CONSTIPATION Piperacillin Sod/Tazobactam (Sod 2.25 gm/ Dextrose) 50 mls @ 100 mls/hr IVPB Q8H-IV LANE PRN Reason: Protocol Last Admin: 09/09/17 09:29 Dose: 100 mls/hr Labetalol HCl 1,000 mg/ (Dextrose) 1,000 mls @ 120 mls/hr IV TITR LANE; 2 MG/MIN PRN Reason: Protocol Last Admin: 09/07/17 19:30 Dose: 1 mg/min, 60 mls/hr Lacosamide (Vimpat Injection -) 100 mg IVPB BID [facility] Last Admin: 09/09/17 09:28 Dose: 100 mg Nifedipine (Procardia Xl -) 60 mg PO DAILY [facility] - Objective Vital Signs: Vital Signs Temperature 97.8 F 09/09/17 10:00 Pulse Rate 95 H 09/09/17 10:00 Respiratory Rate 18 09/09/17 10:00 Blood Pressure 154/107 09/09/17 10:00 O2 Sat by Pulse Oximetry (%) 97 09/09/17 04:00 Constitutional: Yes: No Distress, Calm Eyes: Yes: WNL HENT: Yes: WNL Neck: Yes: WNL Cardiovascular: Yes: Regular Rate and Rhythm Respiratory: Yes: CTA Bilaterally Gastrointestinal: Yes: Normal Bowel Sounds Extremities: Yes: WNL Edema: No Labs: CBC, BMP 09/08/17 06:30 09/08/17 06:30 INR, PTT INR 1.02 (0.82-1.09) 09/04/17 06:00 Fibrinogen 579.0 mg/dL (238-498) H 08/29/17 20:00 Assessment/Plan a/p: 22 m hx autism, seizures, possible underlying ckd/htn here with ams, respiratory failure/sepsis, anna requiring HD and hypertensive urgency. Cardiac course complicated by mild troponin elevation and prolonged qtc. anna requiring HD: -renal eval in progress, planned for biopsy -currently getting HD here htn urgency/emergency: -elevated at times -now on nicard gtt. will get po procardia today as well and try to titrate off gtt. - 09/03: no IV access for cardene drip. needs po meds through NG tube --> started norvasc 10, hydral 20 tid. - 09/04 remains htn. Uptitrated hydralazine to 50 tid. This afternoon remains hypertensive. Will add carvedilol 6.25 bid. - 09/05: remains htn. will uptitrate coreg to 12.5 bid. - 09/06: extubated today (no longer with NGT) and made NPO. Was unable to get po meds today. --> remains hypertensive. No longer on sedation --> can get IV labetolol drip. Recommend initiation of labetolol drip. - 09/07: BP improved on labetolol drip. Patient cleared for po meds. Discussed with renal. Will initiate coreg 12.5 mg bid, nifedipine 10 mg po tid. uptitrate regimen as needed in order to wean off labetolol drip. 09/08: BP well controlled this afternoon 130/84mmHg on oral regimen as outlined above. -echo here unremarkable 09/09: BP elevated this AM. Now back on Labetelol gtt. Would recommend increase coreg up to 25mg PO BID and reattempt Labatelol wean. Being managed by renal team. abnl ecg: -prolonged qtc, possibly due to anna -qtc improved on repeat ecg. abnormal troponins - likely increased in setting of ANNA. likely demand, no concern for acs. anemia: -chronic, mgm't per primary team respiratory failure s/p intubation 09/02 and extubation 09/06 - with white out of left lung - 09/04 s/p chest tube placement.
[2017-09-09 12:03] LABS: ALBUMIN 1.6 g/dl (3.4-5.0); ANION GAP 11 (8-16); BILIRUBIN,TOTAL 0.3 mg/dL (0.2-1.0); BLOOD UREA NITROGEN 31 mg/dL (7-18); CHLORIDE 99 mmol/L (98-107); CO2 29 mmol/L (21-32); GLUCOSE,RANDOM 110 mg/dL (74-106); POTASSIUM 3.9 mmol/L (3.5-5.1); SGOT/AST 23 U/L (15-37); SGPT/ALT 14 U/L (12-78); SODIUM 139 mmol/L (136-145); TOT PROT 4.8 g/dl (6.4-8.2)
[2017-09-09 12:09] LABS: ALK PHOS 49 U/L (45-117)
--- NOTE | 2017-09-09 12:15 | PN ---
Progress Note (short form) - Note Progress Note: covering dr palencia icu ANNA HTN urgency/emergency s/p hyperkalemia hyponatremia resolved autism hx of seizure anemia Underlying CKD lactic acidosis improving thrombocytopenia pleural effusion/chest tube s/p acute resp failure requiring intubation Current Medications Acetaminophen (Tylenol -) 650 mg PO Q6H PRN PRN Reason: fever Last Admin: 09/04/17 02:40 Dose: 650 mg Albuterol/Ipratropium (Duoneb -) [address] Last Admin: 09/09/17 09:00 Dose: 1 amp Amino Acids (Prosource No Carb Liquid Pkt) 30 ml NGT DAILY [facility] Last Admin: 09/09/17 09:27 Dose: 30 ml Carvedilol (Coreg -) 12.5 mg PO BID [facility] Last Admin: 09/09/17 09:28 Dose: 12.5 mg Chlorhexidine Gluconate (Hibiclens For Decolonization -) 1 applic TP HS [facility] Last Admin: 09/08/17 22:21 Dose: 1 applic Docusate Sodium (Colace Liquid -) 100 mg NGT TID PRN PRN Reason: CONSTIPATION Piperacillin Sod/Tazobactam (Sod 2.25 gm/ Dextrose) 50 mls @ 100 mls/hr IVPB Q8H-IV LANE PRN Reason: Protocol Last Admin: 09/09/17 09:29 Dose: 100 mls/hr Labetalol HCl 1,000 mg/ (Dextrose) 1,000 mls @ 120 mls/hr IV TITR LANE; 2 MG/MIN PRN Reason: Protocol Last Admin: 09/07/17 19:30 Dose: 1 mg/min, 60 mls/hr Lacosamide (Vimpat Injection -) 100 mg IVPB BID [facility] Last Admin: 09/09/17 09:28 Dose: 100 mg Nifedipine (Procardia Xl -) 60 mg PO DAILY [facility] BP's high again - 148/101 active meds include coreg, procardia xl, and is back on labetolol drip. nifedipine dose is increased last hd on 09/07 Last Vital Signs Temp Pulse Resp BP Pulse Ox 97.8 F 95 H 18 154/107 100 09/09/17 10:00 09/09/17 10:00 09/09/17 10:00 09/09/17 10:00 09/09/17 09:00 Lungs clear heart reg abd soft Ext no edema CBC, BMP 09/08/17 06:30 09/09/17 11:06 CBC, BMP 09/08/17 06:30 09/08/17 06:30 IMP- anna on chronic on hd htn urgency, poor control, may be fluid related s/p resp failure stable clinically autism Plan - HD on Sunday- orders written - hold coreg while on labetolol drip - permacath on Sunday after catheter placement - kidney biopsy next week - discussed with ICU team
[2017-09-09 12:19] LABS: CREATININE 8.5 mg/dL (0.7-1.3)
[2017-09-09] MEDS: LABETALOL HCL INJECTION 1,000 MG in DEXTROSE 5%-WATER - 800 ML IV SCH (20:00)
[2017-09-09] MEDS: CHLORHEXIDINE GLUCONATE 4% CLEANSER FOR DECOLONIZATION TP SCH (21:12)
[2017-09-09] MEDS: cloNIDine HCL 0.1 MG TABLET PO SCH (22:49)
[2017-09-10] MEDS: PIPERACILLIN/TAZOB 2.25 GM 2.25 GM in DEXTROSE 5%-WATER - 50 ML IVPB SCH (02:15)
[2017-09-10 06:23] LABS: HEMATOCRIT 22.6 % (35.4-49); HEMOGLOBIN 7.7 GM/dL (11.7-16.9); MCH 29.4 pg (25.7-33.7); MCHC 34.1 g/dl (32.0-35.9); MEAN CELL VOLUME 86.1 fl (80-96); PLATELET COUNT 466 K/MM3 (134-434); RBC 2.62 M/mm3 (4.00-5.60); RDW 14.8 % (11.9-15.9); WHITE BLOOD COUNT 13.9 K/mm3 (4.0-10.0)
[2017-09-10 06:52] LABS: ALBUMIN 1.6 g/dl (3.4-5.0); ANION GAP 13 (8-16); BILIRUBIN,TOTAL 0.4 mg/dL (0.2-1.0); BLOOD UREA NITROGEN 41 mg/dL (7-18); CALCIUM 7.8 mg/dL (8.5-10.1); CHLORIDE 98 mmol/L (98-107); CO2 27 mmol/L (21-32); GLUCOSE,RANDOM 88 mg/dL (74-106); POTASSIUM 3.7 mmol/L (3.5-5.1); SGOT/AST 21 U/L (15-37); SGPT/ALT 13 U/L (12-78); SODIUM 138 mmol/L (136-145); TOT PROT 4.9 g/dl (6.4-8.2)
[2017-09-10 06:59] LABS: ALK PHOS 54 U/L (45-117)
[2017-09-10 07:11] LABS: CREATININE 10.4 mg/dL (0.7-1.3)
[2017-09-10] MEDS: ALBUTEROL SO4 2.5/IPRATROPIUM 0.5 INH SOL 3 ML VIAL.NEB. NEB SCH ×4 (07:20→20:45)
--- NOTE | 2017-09-10 07:56 | PN ---
Progress Note, Physician Chief Complaint: ID Alert NAD - Current Medication List Current Medications: Active Medications Acetaminophen (Tylenol -) 650 mg PO Q6H PRN PRN Reason: fever Last Admin: 09/04/17 02:40 Dose: 650 mg Albuterol/Ipratropium (Duoneb -) 1 amp NEB RQID [facility] Last Admin: 09/09/17 20:46 Dose: 1 amp Amino Acids (Prosource No Carb Liquid Pkt) 30 ml NGT DAILY [facility] Last Admin: 09/09/17 09:27 Dose: 30 ml Chlorhexidine Gluconate (Hibiclens For Decolonization -) 1 applic TP HS [facility] Last Admin: 09/09/17 21:12 Dose: 1 applic Clonidine (Catapres -) 0.1 mg PO BID [facility] Last Admin: 09/09/17 22:49 Dose: 0.1 mg Docusate Sodium (Colace Liquid -) 100 mg NGT TID PRN PRN Reason: CONSTIPATION Piperacillin Sod/Tazobactam (Sod 2.25 gm/ Dextrose) 50 mls @ 100 mls/hr IVPB Q8H-IV LANE PRN Reason: Protocol Last Admin: 09/10/17 02:15 Dose: 100 mls/hr Labetalol HCl 1,000 mg/ (Dextrose) 1,000 mls @ 120 mls/hr IV TITR LANE; 2 MG/MIN PRN Reason: Protocol Last Titration: 09/10/17 03:00 Dose: 0.5 mg/min, 30 mls/hr Lacosamide (Vimpat Injection -) 100 mg IVPB BID [facility] Last Admin: 09/09/17 21:12 Dose: 100 mg Nifedipine (Procardia Xl -) 60 mg PO DAILY [facility] - Objective Vital Signs: Vital Signs Temperature 98.5 F 09/10/17 06:00 Pulse Rate 96 H 09/10/17 06:00 Respiratory Rate 20 09/10/17 06:00 Blood Pressure 153/103 09/10/17 06:00 O2 Sat by Pulse Oximetry (%) 95 09/09/17 21:00 Constitutional: Yes: No Distress HENT: Yes: WNL, Atraumatic Neck: Yes: WNL, Supple Cardiovascular: Yes: Regular Rate and Rhythm, S1, S2. No: Murmur Respiratory: Yes: WNL, Regular, CTA Bilaterally, Other (Chest tube) Gastrointestinal: Yes: WNL, Normal Bowel Sounds, Soft. No: Tenderness Edema: No Labs: CBC, BMP 09/10/17 05:55 09/10/17 05:55 INR, PTT INR 1.02 (0.82-1.09) 09/04/17 06:00 Fibrinogen 579.0 mg/dL (238-498) H 08/29/17 20:00 Problem List - Problems (1) Acute renal failure Code(s): N17.9 - ACUTE KIDNEY FAILURE, UNSPECIFIED Qualifiers: Acute renal failure type: unspecified Qualified Code(s): N17.9 - Acute kidney failure, unspecified (2) Hypertensive urgency Code(s): I16.0 - HYPERTENSIVE URGENCY (3) Sepsis Code(s): A41.9 - SEPSIS, UNSPECIFIED ORGANISM Qualifiers: Sepsis type: sepsis due to unspecified organism Qualified Code(s): A41.9 - Sepsis, unspecified organism Assessment/Plan Microbiology 09/06/17 16:15 Stool Salmonella/Shigella Culture - Final 09/06/17 16:15 Stool Escherichia coli 0157 Culture - Final Yeast Like Organism NO GROWTH OF CAMPYLOBACTER SPECIES OBTAINED NO GROWTH OF YERSINIA SPECIES OBTAINED NO GROWTH OF VIBRIO SPECIES OBTAINED NO GROWTH OF E COLI 0157 OBTAINED 09/04/17 16:30 Sputum - Endotrachea Suction/Ventilator Gram Stain - Final 09/04/17 11:45 Pleural Fluid Gram Stain - Final 09/04/17 11:45 Pleural Fluid Anaerobic Culture - Final NO GROWTH OF AEROBIC ORGANISMS AFTER 48 HOURS INCUBATION NO ANAEROBES WERE ISOLATED 09/04/17 16:30 Sputum - Endotrachea Suction/Ventilator Sputum Culture - Preliminary Laboratory Tests 09/10/17 05:55 WBC 13.9 H Hgb 7.7 L D Hct 22.6 L D Plt Count 466 H D Assessment Acute renal failure getting dialysis Pleural effusion with chest tube ? parapneumonic Autism Anemia Low platelets resolved Plan Has had a week of IV antibiotic Elevated WBC ? Will stop and observe [place] BILLS
[2017-09-10] MEDS ORDERED: PT OWN MED DRAWER 7, Y5N ONE ×2 (08:46→17:24)
[2017-09-10 08:55] LABS: BASO % 0.7 % (0-2.0); EOS % 2.8 % (0-4.5); HEMATOCRIT 22.2 % (35.4-49); HEMOGLOBIN 7.6 GM/dL (11.7-16.9); LYMPH % 21.1 % (8-40); MCH 29.6 pg (25.7-33.7); MCHC 34.3 g/dl (32.0-35.9); MEAN CELL VOLUME 86.3 fl (80-96); MEAN PLT VOLUME 6.6 fl (7.5-11.1); MONO % 6.5 % (3.8-10.2); NEUT % 68.9 % (42.8-82.8); PLATELET COUNT 447 K/MM3 (134-434); RBC 2.57 M/mm3 (4.00-5.60); RDW 14.8 % (11.9-15.9); WHITE BLOOD COUNT 13.5 K/mm3 (4.0-10.0)
[2017-09-10 09:07] LABS: INR 1.16 (0.82-1.09); PROTHROMBIN TIME (PATIENT) 13.1 SEC (9.98-11.88)
[2017-09-10 09:10] LABS: ACTIVATED PTT 31.1 SECONDS (26.9-34.4)
[2017-09-10] MEDS: Lacosamide 200 MG/20 ML VIAL IVPB SCH (10:00)
[2017-09-10] MEDS: cloNIDine HCL 0.1 MG TABLET PO SCH (10:00)
[2017-09-10] MEDS: AMINO ACIDS/PROTEIN HYDROLYS 30 ML LIQUID.PKT NGT SCH (10:01)
--- NOTE | 2017-09-10 11:31 | PN ---
Progress Note, AFTER SCHOOL PROGRAM COORDINATOR - Note Progress Note: Selected Entries 09/08/17 09/08/17 09/08/17 02:00 10:00 14:00 Temperature 97.9 F 98 F 98.3 F 09/08/17 09/08/17 09/09/17 18:00 22:00 02:00 Temperature 97.8 F 98.2 F 97.5 F L 09/09/17 09/09/17 09/09/17 10:00 16:00 18:14 Temperature 97.8 F 98.2 F 99.3 F 09/09/17 09/10/17 09/10/17 22:00 02:00 06:00 Temperature 98.9 F 98.8 F 98.5 F Laboratory Tests 09/06/17 09/07/17 09/08/17 06:20 06:00 06:30 WBC 9.2 10.6 H 12.4 H 09/10/17 05:55 WBC 13.9 H Pt NPO for procedure. Voice back to baseline, per his mother. Reassessed with 1/ 2 tsp of applesauce, approved by nursing. Swallow is delayed but fairly brisk. 2 -3 swallows generated. No change in vocal quality or cough noted. I suspect swallowing is back to baseline. Pt was on reg diet/thin liquid at [facility]. WBC upwardly trending. Suggest: after procedure, trial of dys puree,ensure pudding, magic cup, 1/2 tsp at a time. Give pt time to swallow multiplke times b/n trials. Honey thick , liquid on a tsp. MBS tomorrow, to r/o silent aspiration/stasis, and to upgrade diet safely.
--- NOTE | 2017-09-10 13:02 | PN ---
Physical Exam: SUBJECTIVE: Patient seen and examined No acute events overnight. Pt afebrile, laying down comfortably breathing on room air. OBJECTIVE: Vital Signs Period Temp Pulse Resp BP Sys/Mora Pulse Ox Last 24 Hr 98.2 F-99.3 F 88-98 15-24 140-157/76-108 95-95 GENERAL: young male with autism, lying in bed, in NAD HEENT: PEARRLA, EOMI LUNGS: decreased left-sided lung sounds, chest tube in place on left HEART: tachycardia, regular rhythm, no murmurs ABDOMEN: soft, NT, ND EXTREMITIES: 2+ pulses, warm, well-perfused, 1+ edema in all 4 extremities NEUROLOGICAL: EOMI, PEARRLA, unresponsive to commands Laboratory Results - last 24 hr 09/10/17 09/10/17 09/10/17 05:55 05:55 08:25 WBC 13.9 H 13.5 H RBC 2.62 L D 2.57 L Hgb 7.7 L D 7.6 L Hct 22.6 L D 22.2 L MCV 86.1 86.3 MCH 29.4 29.6 MCHC 34.1 34.3 RDW 14.8 14.8 Plt Count 466 H D 447 H MPV 7.0 L 6.6 L Neutrophils % 68.9 Lymphocytes % 21.1 D Monocytes % 6.5 Eosinophils % 2.8 Basophils % 0.7 PT with INR INR PTT (Actin FS) Sodium 138 Potassium 3.7 Chloride 98 Carbon Dioxide 27 Anion Gap 13 BUN 41 H D Creatinine 10.4 H* D Creat Clearance w eGFR 6.21 Random Glucose 88 Calcium 7.8 L Total Bilirubin 0.4 D AST 21 ALT 13 Alkaline Phosphatase 54 Total Protein 4.9 L Albumin 1.6 L 09/10/17 08:25 WBC RBC Hgb Hct MCV MCH MCHC RDW Plt Count MPV Neutrophils % Lymphocytes % Monocytes % Eosinophils % Basophils % PT with INR 13.10 H INR 1.16 H PTT (Actin FS) 31.1 Sodium Potassium Chloride Carbon Dioxide Anion Gap BUN Creatinine Creat Clearance w eGFR Random Glucose Calcium Total Bilirubin AST ALT Alkaline Phosphatase Total Protein Albumin Active Medications Generic Name Dose Route Start Last Admin Trade Name Freq PRN Reason Stop Dose Admin Acetaminophen 650 mg 09/01/17 17:04 09/04/17 02:40 Tylenol - PO 650 mg Q6H PRN Administration fever Albuterol/Ipratropium 1 amp 09/03/17 08:19 09/10/17 11:35 Duoneb - NEB [address] Administration Amino Acids 30 ml 09/03/17 16:15 09/10/17 10:01 Prosource No Carb Liquid Pkt NGT Not Given DAILY LANE Chlorhexidine Gluconate 1 applic 08/29/17 22:00 09/09/17 21:12 Hibiclens For Decolonization - TP [address] Administration Clonidine 0.1 mg 09/09/17 22:45 09/10/17 10:00 Catapres - PO 0.[address] Administration Docusate Sodium 100 mg 09/04/17 10:00 Colace Liquid - NGT TID PRN CONSTIPATION Labetalol HCl 1,000 mg/ 1,000 mls @ 120 mls/hr 09/06/17 19:30 09/10/17 03:00 Dextrose IV 0.5 mg/min TITR LANE 30 mls/hr Protocol Titration 2 MG/MIN Lacosamide 100 mg 09/06/17 22:00 09/10/17 10:00 Vimpat Injection - IVPB [address] Administration Nifedipine 60 mg 09/09/17 10:05 09/10/17 10:02 Procardia Xl - PO [address] Administration ASSESSMENT/PLAN: 22M w/ hx of autism and seizure disorder who presented with severe HTN, anemia, thrombocytopenia, leukocytosis, hyperkalemia, and ANNA, admitted to ICU. Pt is s/ p PRBCs, platelets, FFP, dialysis, s/p intubation on 09/02, s/p chest tube placement on 09/04, s/p extubation on 09/06. CV #hypertensive urgency/emergency- unclear etiology, improving -per nephro and cards, continue coreg 25 BID and procardia 90 daily -stop labetalol gtt -stop clonidine -monitor MAPs -goal BP is < 120/80 #troponinemia- likely 2/2 renal failure and demand ischemia from HTN -peaked, no longer trending Resp #acute hypoxic resp failure -pt s/p extubation on 09/06 -pt breathing comfortably and satting well on room air -chest tube drained 325cc yesterday. Continue to monitor -CXR shows worsening left pleural effusion. chest tube assessed, unkinked, and adjusted accordingly. encourage sitting upright to increase drainage Hematology #anemia and thrombocytopenia -hematology on board, recs appreciated. -Hgb of 7.7 this am, stable -platelets wnl ID #sepsis -leukocytosis of 13.9, tachycardia -ID on board, Dr. Moise, recs appreciated. Abx stopped. Nephro #hyperkalemia and ANNA -nephrology on board, recs appreciated. Renal bx to be done this week. Awaiting IR recs regarding whether sufficient kidney tissue is present for procedure and whether pt can tolerate it. -pt to get permacath today Neuro #seizure disorder -neuro on board, f/u recs. home depakote held given risk of thrombocytopenia. IV lacosamide changed to po. GI #diarrhea- resolved FEN/ppx -no IVF -electrolytes wnl -dysphagia puree -no GI ppx indicated -SCDs due to coagulopathy/anemia Case discussed with attending, Dr. Isidro. -Rashel Iniguez MD PGY1 ICU Team Visit type - Emergency Visit Emergency Visit: Yes ED Registration Date: 08/29/17 Care time: The patient presented to the Emergency Department on the above date and was hospitalized for further evaluation of their emergent condition. - New Patient This patient is new to me today: No - Critical Care Critical Care patient: Yes Total Critical Care Time (in minutes): 40 Critical Care Statement: The care of this patient involved high complexity decision making to prevent further life threatening deterioration of the patient 's condition and/or to evaluate & treat vital organ system(s) failure or risk of failure.
--- NOTE | 2017-09-10 14:35 | PN ---
Progress Note (short form) - Note Progress Note: CC: htn urgency S: Labetolol drip resumed yesterday. coreg stopped. Had plan to increase coreg to 25 bid. nifedipine increased from 30 to 60 daily. appears calm, no discomfort. Current Medications Acetaminophen (Tylenol -) 650 mg PO Q6H PRN PRN Reason: fever Last Admin: 09/04/17 02:40 Dose: 650 mg Albuterol/Ipratropium (Duoneb -) 1 amp NEB RQID [facility] Last Admin: 09/10/17 11:35 Dose: 1 amp Amino Acids (Prosource No Carb Liquid Pkt) 30 ml NGT DAILY [facility] Last Admin: 09/10/17 10:01 Dose: Not Given Chlorhexidine Gluconate (Hibiclens For Decolonization -) 1 applic TP HS [facility] Last Admin: 09/09/17 21:12 Dose: 1 applic Clonidine (Catapres -) 0.1 mg PO BID [facility] Last Admin: 09/10/17 10:00 Dose: 0.1 mg Docusate Sodium (Colace Liquid -) 100 mg NGT TID PRN PRN Reason: CONSTIPATION Labetalol HCl 1,000 mg/ (Dextrose) 1,000 mls @ 120 mls/hr IV TITR LANE; 2 MG/MIN PRN Reason: Protocol Last Titration: 09/10/17 03:00 Dose: 0.5 mg/min, 30 mls/hr Lacosamide (Vimpat Injection -) 100 mg IVPB BID [facility] Last Admin: 09/10/17 10:00 Dose: 100 mg Nifedipine (Procardia Xl -) 60 mg PO DAILY [facility] Last Admin: 09/10/17 10:02 Dose: 60 mg Vital Signs - 24 hr 09/09/17 09/09/17 09/09/17 16:00 18:14 20:00 Temperature 98.2 F 99.3 F Pulse Rate 95 H 90 98 H Respiratory 16 17 22 Rate Blood Pressure 147/89 141/89 144/87 O2 Sat by Pulse Oximetry (%) 09/09/17 09/09/17 09/09/17 20:44 21:00 22:00 Temperature 98.9 F Pulse Rate 94 H Respiratory 22 16 Rate Blood Pressure 155/102 O2 Sat by Pulse 95 95 Oximetry (%) 09/10/17 09/10/17 09/10/17 00:00 02:00 03:00 Temperature 98.8 F Pulse Rate 96 H 94 H 95 H Respiratory 17 15 Rate Blood Pressure 140/105 145/97 146/100 O2 Sat by Pulse Oximetry (%) 09/10/17 09/10/17 09/10/17 04:00 06:00 08:00 Temperature 98.5 F 98.5 F Pulse Rate 94 H 96 H 98 H Respiratory 16 20 24 Rate Blood Pressure 150/103 153/103 157/108 O2 Sat by Pulse Oximetry (%) 09/10/17 10:00 Temperature Pulse Rate 97 H Respiratory 16 Rate Blood Pressure 154/97 O2 Sat by Pulse Oximetry (%) Intake & Output 09/08/17 09/09/17 09/10/17 09/11/17 07:59 07:59 07:59 07:59 Intake Total 2029 1090 1730 Output Total 2550 75 Balance 2029 -0 1655 Weight 179 lb 1 oz 180 lb 1.883 oz 182 lb 14.4 oz nad, calm follows commands and makes eye contact. nad no jvd rrr s1 s2 no mrg dullness at left base, nl effort. + chest tube. no jaundice diaphoresis pos dp pt no le e/c/c abd nd pos bs CBC, BMP 09/10/17 08:25 09/10/17 05:55 cxr 09/10: progressive fluid and infiltrate on left. --> chest tube was adjusted. ecg: sr,prolonged qtc, no ischemic changes echo 08/2017: nl lv/rv, no sig valve path cxr: left eff tele: sr a/p: 22 m hx autism, seizures, possible underlying ckd/htn here with ams, respiratory failure/sepsis, anna requiring HD and hypertensive urgency. Cardiac course complicated by mild troponin elevation and prolonged qtc. anna requiring HD: -renal eval in progress, planned for biopsy -currently getting HD here htn urgency/emergency: -elevated at times -now on nicard gtt. will get po procardia today as well and try to titrate off gtt. - 09/03: no IV access for cardene drip. needs po meds through NG tube --> started norvasc 10, hydral 20 tid. - 09/04 remains htn. Uptitrated hydralazine to 50 tid. This afternoon remains hypertensive. Will add carvedilol 6.25 bid. - 09/05: remains htn. will uptitrate coreg to 12.5 bid. - 09/06: extubated today (no longer with NGT) and made NPO. Was unable to get po meds today. --> remains hypertensive. No longer on sedation --> can get IV labetolol drip. Recommend initiation of labetolol drip. - 09/07: BP improved on labetolol drip. Patient cleared for po meds. Discussed with renal. Will initiate coreg 12.5 mg bid, nifedipine 10 mg po tid. uptitrate regimen as needed in order to wean off labetolol drip. 09/08: BP well controlled this afternoon 130/84mmHg on oral regimen as outlined above. -echo here unremarkable 09/09: BP elevated this AM. Now back on Labetelol gtt. Would recommend increase coreg up to 25mg PO BID and reattempt Labatelol wean. Being managed by renal team. 09/10: BP slowly improving. coreg d/c overnight. Would stop labetolol drip and resume coreg at 25 bid. Would optimize coreg dose prior to adding on clonidine. (stop clonidine). Con't nifedipine. Discussed plan with renal. abnl ecg: -prolonged qtc, possibly due to anna -qtc improved on repeat ecg. abnormal troponins - likely increased in setting of ANNA. likely demand, no concern for acs. anemia: -chronic, mgm't per primary team respiratory failure s/p intubation 09/02 and extubation 09/06 - with white out of left lung - 09/04 s/p chest tube placement.
--- NOTE | 2017-09-10 14:42 | PN ---
Physical Exam: SUBJECTIVE: Patient seen and examined OBJECTIVE: Vital Signs Period Temp Pulse Resp BP Sys/Mora Pulse Ox Last 24 Hr 98.2 F-99.3 F 88-98 15-24 140-157/76-108 95-95 GENERAL: Awake, alert, no signs of distress. LUNGS: on face tent; CTA; left pigtail catheter HEART: Regular rate and rhythm, S1, S2 without murmur, rub or gallop ABDOMEN: Soft, nontender, nondistended, hypoactive bowel sounds, no guarding, no rebound UPPER EXTREMITIES: 2+ pulses, warm, well-perfused, 1-2+ edema, mittens LOWER EXTREMITIES: 2+ pulses, warm, well-perfused, 1-2+ edema improved Laboratory Results - last 24 hr 09/10/17 09/10/17 09/10/17 05:55 05:55 08:25 WBC 13.9 H 13.5 H RBC 2.62 L D 2.57 L Hgb 7.7 L D 7.6 L Hct 22.6 L D 22.2 L MCV 86.1 86.3 MCH 29.4 29.6 MCHC 34.1 34.3 RDW 14.8 14.8 Plt Count 466 H D 447 H MPV 7.0 L 6.6 L Neutrophils % 68.9 Lymphocytes % 21.1 D Monocytes % 6.5 Eosinophils % 2.8 Basophils % 0.7 PT with INR INR PTT (Actin FS) Sodium 138 Potassium 3.7 Chloride 98 Carbon Dioxide 27 Anion Gap 13 BUN 41 H D Creatinine 10.4 H* D Creat Clearance w eGFR 6.21 Random Glucose 88 Calcium 7.8 L Total Bilirubin 0.4 D AST 21 ALT 13 Alkaline Phosphatase 54 Total Protein 4.9 L Albumin 1.6 L 09/10/17 08:25 WBC RBC Hgb Hct MCV MCH MCHC RDW Plt Count MPV Neutrophils % Lymphocytes % Monocytes % Eosinophils % Basophils % PT with INR 13.10 H INR 1.16 H PTT (Actin FS) 31.1 Sodium Potassium Chloride Carbon Dioxide Anion Gap BUN Creatinine Creat Clearance w eGFR Random Glucose Calcium Total Bilirubin AST ALT Alkaline Phosphatase Total Protein Albumin ` Active Medications Generic Name Dose Route Start Last Admin Trade Name Freq PRN Reason Stop Dose Admin Acetaminophen 650 mg 09/01/17 17:04 09/04/17 02:40 Tylenol - PO 650 mg Q6H PRN Administration fever Albuterol/Ipratropium 1 amp 09/03/17 08:19 09/10/17 11:35 Duoneb - NEB [address] Administration Amino Acids 30 ml 09/03/17 16:15 09/10/17 10:01 Prosource No Carb Liquid Pkt NGT Not Given DAILY [facility] Chlorhexidine Gluconate 1 applic 08/29/17 22:00 09/09/17 21:12 Hibiclens For Decolonization - TP [address] Administration Clonidine 0.1 mg 09/09/17 22:45 09/10/17 10:00 Catapres - PO 0.[address] Administration Docusate Sodium 100 mg 09/04/17 10:00 Colace Liquid - NGT TID PRN CONSTIPATION Labetalol HCl 1,000 mg/ 1,000 mls @ 120 mls/hr 09/06/17 19:30 09/10/17 03:00 Dextrose IV 0.5 mg/min TITR LANE 30 mls/hr Protocol Titration 2 MG/MIN Lacosamide 100 mg 09/06/17 22:00 09/10/17 10:00 Vimpat Injection - IVPB [address] Administration Nifedipine 30 mg 09/10/17 14:45 Procardia Xl - PO DAILY LANE Nifedipine 90 mg 09/11/17 10:05 Procardia Xl - PO DAILY LANE ASSESSMENT/PLAN 22 year-old male with PMH significant for HTN, autism, and epilepsy. Admitted for pneumonia, ANNA, hypertensive emergency. Hospital course complicated by acute respiratory failure, requiring intubation and emergent HD. Acute hypoxic respiratory failure, resolved --extubated, on face tent Left pleural effusion with loculation --s/p thoracentesis 09/02 --s/p pigtail 09/04; CT still putting out 200-300cc's per day --cultures negative to date; path negative for malignancy --serial cxr's Severe sepsis secondary to pneumonia --afebrile, bump in WBC today 12.4--?13.9 --completed 10 days of Zosyn, per ID observe off antibiotics --duonebs Acute renal failure --CR 20.5, trending down to 5.4 yesterday, bump up today to 8.5 --permacath today --biopsy planned Hypertensive emergency --wean labetolol ip, titrate PO meds Epilepsy --continue Vimpat DVT prophylaxis: SCDs Dispo: continues to require ICU level care. Full code. Visit type - Emergency Visit Emergency Visit: Yes ED Registration Date: 08/29/17 Care time: The patient presented to the Emergency Department on the above date and was hospitalized for further evaluation of their emergent condition. - New Patient This patient is new to me today: No - Critical Care Critical Care patient: Yes Total Critical Care Time (in minutes): 35 Critical Care Statement: The care of this patient involved high complexity decision making to prevent further life threatening deterioration of the patient 's condition and/or to evaluate & treat vital organ system(s) failure or risk of failure.
[2017-09-10] MEDS ORDERED: NIFEdipine E.R. 30 MG TABLET (FP) PO ONE ×2 (14:45→17:30)
--- NOTE | 2017-09-10 15:06 | PN ---
Teaching Attending Note Name of Resident: Rashel Iniguez ATTENDING PHYSICIAN STATEMENT I saw and evaluated the patient. I reviewed the resident's note and discussed the case with the resident. I agree with the resident's findings and plan as documented. SUBJECTIVE: Patient seen and examined in the ICU. Awake and alert. No acute events overnight. CT minimal output, stopcock appears malpositioned: it was adjusted CXR: Increase in left effusion OBJECTIVE: Intake & Output 09/07/17 09/08/17 09/09/17 09/10/17 23:59 23:59 23:59 23:59 Intake Total 1997 1340 1860 390 Output Total 0 2275 325 25 Balance 1997 1535 365 Weight 191 lb 9.307 oz 179 lb 1 oz 180 lb 1.883 oz 182 lb 14.4 oz Last Vital Signs Temp Pulse Resp BP Pulse Ox 98.5 F 76 22 114/54 95 09/10/17 08:00 09/10/17 14:00 09/10/17 14:00 09/10/17 14:00 09/10/17 09:00 Active Medications Acetaminophen (Tylenol -) 650 mg PO Q6H PRN PRN Reason: fever Last Admin: 09/04/17 02:40 Dose: 650 mg Albuterol/Ipratropium (Duoneb -) 1 amp NEB RQID [facility] Last Admin: 09/10/17 11:35 Dose: 1 amp Amino Acids (Prosource No Carb Liquid Pkt) 30 ml NGT DAILY [facility] Last Admin: 09/10/17 10:01 Dose: Not Given Carvedilol (Coreg -) 25 mg PO BID [facility] Chlorhexidine Gluconate (Hibiclens For Decolonization -) 1 applic TP HS [facility] Last Admin: 09/09/17 21:12 Dose: 1 applic Docusate Sodium (Colace Liquid -) 100 mg NGT TID PRN PRN Reason: CONSTIPATION Lacosamide (Vimpat -) 100 mg PO BID [facility] Nifedipine (Procardia Xl -) 90 mg PO DAILY [facility] GENERAL: young male with autism, lying in bed, on vent, alert HEENT: PEARRLA, EOMI LUNGS: few rhonchi, left pigtail catheter HEART: tachycardia, regular rhythm, no murmurs ABDOMEN: soft, NT, ND EXTREMITIES: 2+ pulses, warm, well-perfused, 1+ edema in all 4 extremities NEUROLOGICAL: EOMI, PEARRLA, unresponsive to commands Laboratory Results - last 24 hr 09/10/17 09/10/17 09/10/17 05:55 05:55 08:25 WBC 13.9 H 13.5 H RBC 2.62 L D 2.57 L Hgb 7.7 L D 7.6 L Hct 22.6 L D 22.2 L MCV 86.1 86.3 MCH 29.4 29.6 MCHC 34.1 34.3 RDW 14.8 14.8 Plt Count 466 H D 447 H MPV 7.0 L 6.6 L Neutrophils % 68.9 Lymphocytes % 21.1 D Monocytes % 6.5 Eosinophils % 2.8 Basophils % 0.7 PT with INR INR PTT (Actin FS) Sodium 138 Potassium 3.7 Chloride 98 Carbon Dioxide 27 Anion Gap 13 BUN 41 H D Creatinine 10.4 H* D Creat Clearance w eGFR 6.21 Random Glucose 88 Calcium 7.8 L Total Bilirubin 0.4 D AST 21 ALT 13 Alkaline Phosphatase 54 Total Protein 4.9 L Albumin 1.6 L 09/10/17 08:25 WBC RBC Hgb Hct MCV MCH MCHC RDW Plt Count MPV Neutrophils % Lymphocytes % Monocytes % Eosinophils % Basophils % PT with INR 13.10 H INR 1.16 H PTT (Actin FS) 31.1 Sodium Potassium Chloride Carbon Dioxide Anion Gap BUN Creatinine Creat Clearance w eGFR Random Glucose Calcium Total Bilirubin AST ALT Alkaline Phosphatase Total Protein Albumin ASSESSMENT AND PLAN: Hypertensive Urgency Acute Kidney Injury requiring HD Acute Hypoxic Respiratory Failure Pneumonia Loculated Pleural Effusion Hyponatremia Severe Sepsis Lactic Acidosis Thrombocytopenia improved Anemia Autism - ABX - Monitor pigtail catheter drainage - monitor H/H - Normal transfusion thresholds - monitor urine output, creatinine - Titrate PO BP meds - Taper IV Labetalol - O2 as needed - PO as tolerated - DVT/GI prophylaxis - continue ICU monitoring Dr Isidro Critical care time spent in reviewing chart, evaluating patient and formulating plan 35 min
[2017-09-10] MEDS ORDERED: MIDAZOLAM HCL 2 MG/2 ML SINGLE DOSE VIAL ONE (15:36)
[2017-09-10] MEDS ORDERED: CLINDAMYCIN PHOSPHATE 600 MG/4 ML VIAL ONE (15:41)
[2017-09-10] MEDS ORDERED: PROPOFOL 20 ML ONE ×2 (15:44→16:06)
[2017-09-10] MEDS ORDERED: CLINDAMYCIN 600 MG PREMIX BAG IVPB ONE ×2 (15:47→16:07)
--- NOTE | 2017-09-10 16:35 | OP ---
Operative Note - Note: Operative Date: 09/10/17 Pre-Operative Diagnosis: ESRD Operation: Insertion of right IJ permcath Findings: Good flow in catheter Implants: Permcath Post-Operative Diagnosis: Same as Pre-op Surgeon: Beni Kc Anesthesiologist/TILE MOLDER: César De La Garza Anesthesia: MAC Specimens Removed: none Operative Report Dictated: Yes
--- NOTE | 2017-09-10 17:11 | PN ---
Progress Note, Physician History of Present Illness: Pt seen and examined at bedside. He appears comfortable. - Current Medication List Current Medications: Active Medications Acetaminophen (Tylenol -) 650 mg PO Q6H PRN PRN Reason: fever Last Admin: 09/04/17 02:40 Dose: 650 mg Albuterol/Ipratropium (Duoneb -) 1 amp NEB RQID [facility] Last Admin: 09/10/17 15:46 Dose: Not Given Amino Acids (Prosource No Carb Liquid Pkt) 30 ml NGT DAILY [facility] Last Admin: 09/10/17 10:01 Dose: Not Given Carvedilol (Coreg -) 25 mg PO BID [facility] Chlorhexidine Gluconate (Hibiclens For Decolonization -) 1 applic TP HS [facility] Last Admin: 09/09/17 21:12 Dose: 1 applic Docusate Sodium (Colace Liquid -) 100 mg NGT TID PRN PRN Reason: CONSTIPATION Lacosamide (Vimpat -) 100 mg PO BID [facility] Nifedipine (Procardia Xl -) 90 mg PO DAILY [facility] - Objective Vital Signs: Vital Signs Temperature 98.5 F 09/10/17 08:00 Pulse Rate 76 09/10/17 14:00 Respiratory Rate 22 09/10/17 14:00 Blood Pressure 114/54 09/10/17 14:00 O2 Sat by Pulse Oximetry (%) 95 09/10/17 09:00 Constitutional: Yes: Calm Eyes: Yes: Conjunctiva Clear HENT: Yes: Atraumatic Neck: Yes: Supple Cardiovascular: Yes: S1, S2 Respiratory: Yes: Other (chest tube) Gastrointestinal: Yes: Soft Genitourinary: Yes: Incontinence Edema: Yes Edema: LLE: Trace, RLE: Trace Neurological: Yes: Pre-Existing Deficit Labs: CBC, BMP 09/10/17 08:25 09/10/17 05:55 INR, PTT INR 1.16 (0.82-1.09) H 09/10/17 08:25 Fibrinogen 579.0 mg/dL (238-498) H 08/29/17 20:00 - ....Imaging Chest X-ray: Report Reviewed Problem List - Problems (1) Acute renal failure Code(s): N17.9 - ACUTE KIDNEY FAILURE, UNSPECIFIED Qualifiers: Acute renal failure type: unspecified Qualified Code(s): N17.9 - Acute kidney failure, unspecified (2) Anemia Code(s): D64.9 - ANEMIA, UNSPECIFIED (3) Hyperkalemia Code(s): E87.5 - HYPERKALEMIA (4) Hypertensive urgency Code(s): I16.0 - HYPERTENSIVE URGENCY (5) Sepsis Code(s): A41.9 - SEPSIS, UNSPECIFIED ORGANISM Qualifiers: Sepsis type: sepsis due to unspecified organism Qualified Code(s): A41.9 - Sepsis, unspecified organism (6) Thrombocytopenia Code(s): D69.6 - THROMBOCYTOPENIA, UNSPECIFIED (7) Seizure Code(s): R56.9 - UNSPECIFIED CONVULSIONS Assessment/Plan Current Medications Generic Name Dose Route Start Last Admin Trade Name Freq PRN Reason Stop Dose Admin Acetaminophen 650 mg 09/01/17 17:04 09/04/17 02:40 Tylenol - PO 650 mg Q6H PRN Administration fever Albuterol/Ipratropium 1 amp 09/03/17 08:19 09/10/17 15:46 Duoneb - NEB Not Given RQID LANE Amino Acids 30 ml 09/03/17 16:15 09/10/17 10:01 Prosource No Carb Liquid Pkt NGT Not Given DAILY LANE Carvedilol 25 mg 09/10/17 15:00 Coreg - PO BID LANE Chlorhexidine Gluconate 1 applic 08/29/17 22:00 09/09/17 21:12 Hibiclens For Decolonization - TP [address] Administration Docusate Sodium 100 mg 09/04/17 10:00 Colace Liquid - NGT TID PRN CONSTIPATION Lacosamide 100 mg 09/10/17 22:00 Vimpat - PO BID LANE Nifedipine 90 mg 09/11/17 10:00 Procardia Xl - PO DAILY LANE Impression 1. ANNA 2. HTN urgency/emergency 3. hyperkalemia 4. hyponatremia 5. autism 6. hx of seizure 7. anemia 8. CKD 9. lactic acidosis improving 10. thrombocytopenia 11. hyperkalemia 12. pleural effusion 13. acute resp failure requiring intubation Plan - HD today - pt had permacath placed - repeat labs in am - repeat cxr in am - called IR for kidney biopsy - discussed bp meds with icu and cardiology - taper off the labetolol - restart coreg and increase nifedipine - clonidine stopped - monitor bp Dr Velasquez
[2017-09-10] MEDS: CARVEDILOL 25 MG TABLET (FP) PO SCH ×2 (17:38→21:25)
[2017-09-10] MEDS ORDERED: SODIUM CHLORIDE 250 ML IV PRN (20:26)
--- NOTE | 2017-09-10 21:08 | OP ---
DATE OF OPERATION: 09/10/2017 PREOPERATIVE DIAGNOSIS: End-stage renal disease. POSTOPERATIVE DIAGNOSIS: End-stage renal disease. SURGERY PERFORMED: Insertion of right internal jugular vein PermCath. SURGEON: Radha Kc MD ANESTHESIA: Local, standby. This patient is an unfortunate, 22-year-old man with end-stage renal disease and mental retardation. The decision was made for a PermCath for interim hemodialysis. Patient was taken to the OR, given intravenous sedation as well as 600 mg of clindamycin. The right neck and chest were prepped and draped in the usual sterile manner. Using ultrasound guidance and local anesthesia, the right internal jugular vein was easily cannulated with a micropuncture device. Under fluoroscopy, the position of the wire was confirmed in the right atrium. A tunnel was created through the right lateral chest wall with local anesthesia, and using the tunneling device and a small counterincision, a 19-cm PermCath was pulled through the tunnel. The microwire and dilator were removed, and the larger guidewire from the catheter kit was passed under fluoroscopy into the right atrium. The microsheath was removed, and the track was dilated with successively larger dilators. Finally, the peel-away sheath and dilator were passed over the guidewire, the guidewire and dilator were removed, and the catheter was then placed through the peel-away sheath which was then removed. The position of the catheter was confirmed under fluoroscopy. There was good blood flow in and out of the catheter. It was capped with heparin and anchored with 3-0 nylon sutures. The incision was closed with a 4-0 Monocryl stitch. Sterile dressings were applied. Estimated blood loss was 10 mL. No transfusions were given. Patient was taken back to the intensive care unit in unchanged condition. RADHA KC M.D. [id number]
[2017-09-10] MEDS ORDERED: EPOETIN ALFA 2,000 UNIT/1 ML VIAL IVPUSH ONE (21:15)
[2017-09-10] MEDS: LACOSAMIDE 50 MG TABLET PO SCH (21:25)
[2017-09-10] MEDS: CHLORHEXIDINE GLUCONATE 4% CLEANSER FOR DECOLONIZATION TP SCH (21:25)
[2017-09-10] MEDS ORDERED: CARVEDILOL 12.5 MG TABLET (FP) PO SCH (22:00)
[2017-09-11 06:23] LABS: BASO % 0.5 % (0-2.0); EOS % 1.8 % (0-4.5); HEMATOCRIT 26.4 % (35.4-49); HEMOGLOBIN 9.1 GM/dL (11.7-16.9); LYMPH % 19.4 % (8-40); MCH 29.3 pg (25.7-33.7); MCHC 34.6 g/dl (32.0-35.9); MEAN CELL VOLUME 84.7 fl (80-96); MEAN PLT VOLUME 6.8 fl (7.5-11.1); MONO % 5.9 % (3.8-10.2); NEUT % 72.4 % (42.8-82.8); PLATELET COUNT 436 K/MM3 (134-434); RBC 3.12 M/mm3 (4.00-5.60); RDW 15.1 % (11.9-15.9); WHITE BLOOD COUNT 12.4 K/mm3 (4.0-10.0)
[2017-09-11 06:46] LABS: ALBUMIN 1.8 g/dl (3.4-5.0); CALCIUM 8.3 mg/dL (8.5-10.1); CHLORIDE 105 mmol/L (98-107); POTASSIUM 4.6 mmol/L (3.5-5.1); SODIUM 146 mmol/L (136-145)
[2017-09-11 06:57] LABS: ALK PHOS 64 U/L (45-117); ANION GAP 10 (8-16); BILIRUBIN,TOTAL 0.4 mg/dL (0.2-1.0); BLOOD UREA NITROGEN 26 mg/dL (7-18); CO2 31 mmol/L (21-32); GLUCOSE,RANDOM 88 mg/dL (74-106); MAGNESIUM 2.4 mg/dL (1.8-2.4); PHOSPHOROUS 5.8 mg/dL (2.5-4.9); SGOT/AST 23 U/L (15-37); SGPT/ALT 15 U/L (12-78); TOT PROT 5.4 g/dl (6.4-8.2)
[2017-09-11 07:22] LABS: CREATININE 7.8 mg/dL (0.7-1.3)
[2017-09-11] MEDS: ALBUTEROL SO4 2.5/IPRATROPIUM 0.5 INH SOL 3 ML VIAL.NEB. NEB SCH ×4 (08:10→21:00)
--- NOTE | 2017-09-11 08:19 | PN ---
Progress Note, Physician Chief Complaint: s/p insertion of permacath under mac anesthesia History of Present Illness: post op day one - Current Medication List Current Medications: Active Medications Acetaminophen (Tylenol -) 650 mg PO Q6H PRN PRN Reason: fever Last Admin: 09/04/17 02:40 Dose: 650 mg Acetaminophen (Ofirmev Injection -) 1,000 mg IVPB ONCE ONE Stop: 09/11/17 08:15 Albuterol/Ipratropium (Duoneb -) 1 amp NEB RQID [facility] Last Admin: 09/10/17 20:45 Dose: Not Given Amino Acids (Prosource No Carb Liquid Pkt) 30 ml NGT DAILY [facility] Last Admin: 09/10/17 10:01 Dose: Not Given Carvedilol (Coreg -) 25 mg PO BID [facility] Last Admin: 09/10/17 21:25 Dose: 25 mg Chlorhexidine Gluconate (Hibiclens For Decolonization -) 1 applic TP HS [facility] Last Admin: 09/10/17 21:25 Dose: 1 applic Docusate Sodium (Colace Liquid -) 100 mg NGT TID PRN PRN Reason: CONSTIPATION Sodium Chloride (Normal Saline -) 250 mls @ 3,000 mls/hr IV PRN PRN PRN Reason: Hypotension during Dialysis Stop: 09/11/17 20:25 Lacosamide (Vimpat -) 100 mg PO BID [facility] Last Admin: 09/10/17 21:25 Dose: 100 mg Nifedipine (Procardia Xl -) 90 mg PO DAILY [facility] - Objective Vital Signs: Vital Signs Temperature 97.4 F L 09/11/17 03:00 Pulse Rate 106 H 09/11/17 07:00 Respiratory Rate 12 09/11/17 07:00 Blood Pressure 173/112 09/11/17 07:00 O2 Sat by Pulse Oximetry (%) 100 09/10/17 19:57 Constitutional: Yes: Well Nourished Cardiovascular: Yes: WNL Respiratory: Yes: WNL Gastrointestinal: Yes: WNL Labs: CBC, BMP 09/11/17 06:02 09/11/17 06:02 INR, PTT INR 1.16 (0.82-1.09) H 09/10/17 08:25 Fibrinogen 579.0 mg/dL (238-498) H 04/04/18 20:00 Assessment/Plan Patient doing well overnight, no complaints of anesthetic complications, will sign off care at this time
[2017-09-11] MEDS: ACETAMINOPHEN 325 MG TABLET (FP) PO PRN ×2 (08:44→19:29)
--- NOTE | 2017-09-11 08:46 | PN ---
Physical Exam: SUBJECTIVE: Patient seen and examined Yesterday, pt underwent permacath placement, HD (3kg of fluid removed), and was given 1 unit of PRBCs. Pt persistently hypertensive overnight. This am, pt laying down comfortably in bed. OBJECTIVE: Vital Signs Period Temp Pulse Resp BP Sys/Mora Pulse Ox Last 24 Hr 97.2 F-97.8 F 64-109 10-22 114-176/48-119 95-100 GENERAL: young male with autism, lying in bed, in NAD HEENT: PEARRLA, EOMI LUNGS: decreased left-sided lung sounds, chest tube in place on left HEART: tachycardia, regular rhythm, no murmurs ABDOMEN: soft, NT, ND EXTREMITIES: 2+ pulses, warm, well-perfused, no edema in all 4 extremities NEUROLOGICAL: EOMI, PEARRLA, unresponsive to commands Laboratory Results - last 24 hr 09/10/17 09/10/17 09/10/17 08:25 08:25 20:30 WBC 13.5 H RBC 2.57 L Hgb 7.6 L Hct 22.2 L MCV 86.3 MCH 29.6 MCHC 34.3 RDW 14.8 Plt Count 447 H MPV 6.6 L Neutrophils % 68.9 Lymphocytes % 21.1 D Monocytes % 6.5 Eosinophils % 2.8 Basophils % 0.7 PT with INR 13.10 H INR 1.16 H PTT (Actin FS) 31.1 Sodium Potassium Chloride Carbon Dioxide Anion Gap BUN Creatinine Creat Clearance w eGFR Random Glucose Calcium Phosphorus Magnesium Total Bilirubin AST ALT Alkaline Phosphatase Total Protein Albumin Blood Type O POSITIVE Antibody Screen Negative Crossmatch See Detail 09/11/17 09/11/17 06:02 06:02 WBC 12.4 H RBC 3.12 L D Hgb 9.1 L D Hct 26.4 L D MCV 84.7 MCH 29.3 MCHC 34.6 RDW 15.1 Plt Count 436 H MPV 6.8 L Neutrophils % 72.4 Lymphocytes % 19.4 Monocytes % 5.9 Eosinophils % 1.8 Basophils % 0.5 PT with INR INR PTT (Actin FS) Sodium 146 H Potassium 4.6 D Chloride 105 Carbon Dioxide 31 Anion Gap 10 BUN 26 H D Creatinine 7.8 H* D Creat Clearance w eGFR 8.65 Random Glucose 88 Calcium 8.3 L Phosphorus 5.8 H Magnesium 2.4 Total Bilirubin 0.4 AST 23 ALT 15 Alkaline Phosphatase 64 Total Protein 5.4 L Albumin 1.8 L Blood Type Antibody Screen Crossmatch Active Medications Generic Name Dose Route Start Last Admin Trade Name Franko PRN Reason Stop Dose Admin Acetaminophen 650 mg 09/01/17 17:04 09/04/17 02:40 Tylenol - PO 650 mg Q6H PRN Administration fever Acetaminophen 1,000 mg 09/11/17 08:14 Ofirmev Injection - IVPB 09/11/17 08:15 ONCE ONE Albuterol/Ipratropium 1 amp 09/03/17 08:19 09/10/17 20:45 Duoneb - NEB Not Given RQID LANE Amino Acids 30 ml 09/03/17 16:15 09/10/17 10:01 Prosource No Carb Liquid Pkt NGT Not Given DAILY LANE Carvedilol 25 mg 09/10/17 15:00 09/10/17 21:25 Coreg - PO [address] Administration Chlorhexidine Gluconate 1 applic 08/29/17 22:00 09/10/17 21:25 Hibiclens For Decolonization - TP [address] Administration Docusate Sodium 100 mg 09/04/17 10:00 Colace Liquid - NGT TID PRN CONSTIPATION Sodium Chloride 250 mls @ 3,000 mls/hr 09/10/17 20:26 Normal Saline - IV 09/11/17 20:25 PRN PRN Hypotension during Dialysis Labetalol HCl 10 mg 09/11/17 08:39 Normodyne Injection - IVPUSH 09/11/17 08:40 ONCE ONE Lacosamide 100 mg 09/10/17 22:00 09/10/17 21:25 Vimpat - PO [address] Administration Nifedipine 90 mg 09/11/17 10:00 Procardia Xl - PO DAILY LANE ASSESSMENT/PLAN: 22M w/ hx of autism and seizure disorder who presented with severe HTN, anemia, thrombocytopenia, leukocytosis, hyperkalemia, and ANNA, admitted to ICU. Pt is s/ p PRBCs, platelets, FFP, dialysis, s/p intubation on 09/02, s/p chest tube placement on 09/04, s/p extubation on 09/06, s/p permacath placement and 1 unit of PRBCs on 09/10. CV #hypertensive urgency/emergency- unclear etiology, improving -per nephro and cards, continue coreg 25 BID. Increase procardia to 120mg daily. Start po hydralazine 50mg q8h. If uncontrolled on these 3 meds, can start ACEI, nitrate, or clonidine. -monitor MAPs -goal BP is < 120/80 #troponinemia- likely 2/2 renal failure and demand ischemia from HTN -peaked, no longer trending Resp #acute hypoxic resp failure -pt s/p extubation on 09/06 -pt breathing comfortably and satting well on NC -chest tube drained 150cc yesterday. Continue to monitor -CXR this am shows persistent large left pleural effusion. IR called to assess whether pt can benefit from larger caliber pigtail insertion. f/u IR recs Hematology #anemia and thrombocytopenia -hematology on board, recs appreciated. -Hgb of 9.1 this am, adequate response after 1 unit of PRBCs -platelets wnl ID #sepsis -leukocytosis of 12.4, tachycardia -ID on board, Dr. Moise, recs appreciated. Abx stopped on 09/10. -new temp this am. tylenol given. repeat cultures drawn. ID made aware, rec no abx for now. Nephro #hyperkalemia and ANNA -nephrology on board, recs appreciated. Renal bx to be done this week. Awaiting IR recs regarding whether sufficient kidney tissue is present for procedure and whether pt can tolerate it. -pt s/p permacath placement on 09/10 Neuro #seizure disorder -neuro on board, f/u recs. continue po lacosamide GI #diarrhea- resolved FEN/ppx -no IVF -hyperphosphatemia -dysphagia puree -no GI ppx indicated -SCDs due to coagulopathy/anemia Case discussed with attending, Dr. Isidro. -Rashel Iniguez MD PGY1 ICU Team Visit type - Emergency Visit Emergency Visit: Yes ED Registration Date: 08/29/17 Care time: The patient presented to the Emergency Department on the above date and was hospitalized for further evaluation of their emergent condition. - New Patient This patient is new to me today: No - Critical Care Critical Care patient: Yes Total Critical Care Time (in minutes): 38 Critical Care Statement: The care of this patient involved high complexity decision making to prevent further life threatening deterioration of the patient 's condition and/or to evaluate & treat vital organ system(s) failure or risk of failure.
[2017-09-11] MEDS: LABETALOL HCL 5 MG/1 ML (100MG/20 ML VIAL) IVPUSH ONE ×2 (08:57→09:02)
[2017-09-11] MEDS: CARVEDILOL 25 MG TABLET (FP) PO SCH ×2 (09:00→21:16)
[2017-09-11] MEDS ORDERED: ACETAMINOPHEN 1000 MG/100 ML VIAL (NON FORMULARY) IVPB ONE (09:00)
[2017-09-11] MEDS: LACOSAMIDE 50 MG TABLET PO SCH ×2 (09:00→21:16)
[2017-09-11] MEDS: AMINO ACIDS/PROTEIN HYDROLYS 30 ML LIQUID.PKT NGT SCH (09:03)
--- NOTE | 2017-09-11 09:31 | PN ---
Progress Note (short form) - Note Progress Note: s/p permacath yesterday and dialysis alert ate breakfast antibiotics d/sunshine yesterday Vital Signs Period Temp Pulse Resp BP Sys/Mora Pulse Ox Last 24 Hr 97.2 F-97.8 F 64-109 10- 114-176/48-119 100 cor-rrr lungs decreased bs at left base abd soft,nt ext no edema CBC, BMP 09/11/17 06:02 09/11/17 06:02 cxray left lung opacification a/p remains extubated left effusion-?adjust chest tube renal failure- on HD HTN cefprozil allergy- rash observe off antibiotics
[2017-09-11] MEDS ORDERED: LABETALOL HCL 5 MG/1 ML (100MG/20 ML VIAL) IVPUSH ONE (10:00)
[2017-09-11] MEDS ORDERED: NIFEdipine E.R. 90 MG TABLET (FP) PO SCH (10:00)
[2017-09-11] MEDS ORDERED: hydrALAZINE HCL 20 MG/ML VIAL IVPUSH ONE ×2 (10:28→11:48)
[2017-09-11] MEDS ORDERED: hydrALAZINE HCL 20 MG/ML VIAL ONE (10:30)
[2017-09-11] MEDS ORDERED: NIFEdipine E.R. 30 MG TABLET (FP) PO ONE (12:00)
--- NOTE | 2017-09-11 12:03 | PN ---
Teaching Attending Note Name of Resident: Rashel Iniguez ATTENDING PHYSICIAN STATEMENT I saw and evaluated the patient. I reviewed the resident's note and discussed the case with the resident. I agree with the resident's findings and plan as documented. SUBJECTIVE: Patient seen and examined in the ICU. Awake and alert. No acute events overnight. CT output noted CXR: No gross change in large left effusion OBJECTIVE: Intake & Output 09/08/17 09/09/17 09/10/17 09/11/17 23:59 23:59 23:59 23:59 Intake Total 1340 1860 645 350 Output Total 2275 325 150 Balance -935 1535 495 350 Weight 179 lb 1 oz 180 lb 1.883 oz 182 lb 14.4 oz Last Vital Signs Temp Pulse Resp BP Pulse Ox 101.2 F H 112 H 12 177/127 97 09/11/17 10:00 09/11/17 10:00 09/11/17 09:00 09/11/17 10:00 09/11/17 10:00 Active Medications Acetaminophen (Tylenol -) 650 mg PO Q6H PRN PRN Reason: fever Last Admin: 09/11/17 08:44 Dose: 650 mg Albuterol/Ipratropium (Duoneb -) 1 amp NEB RQID [facility] Last Admin: 09/11/17 08:10 Dose: 1 amp Amino Acids (Prosource No Carb Liquid Pkt) 30 ml NGT DAILY [facility] Last Admin: 09/11/17 09:03 Dose: 30 ml Carvedilol (Coreg -) 25 mg PO BID [facility] Last Admin: 09/11/17 09:00 Dose: 25 mg Chlorhexidine Gluconate (Hibiclens For Decolonization -) 1 applic TP HS [facility] Last Admin: 09/10/17 21:25 Dose: 1 applic Docusate Sodium (Colace Liquid -) 100 mg NGT TID PRN PRN Reason: CONSTIPATION Hydralazine HCl (Apresoline -) 50 mg PO Q8H [facility] Sodium Chloride (Normal Saline -) 250 mls @ 3,000 mls/hr IV PRN PRN PRN Reason: Hypotension during Dialysis Stop: 09/11/17 20:25 Lacosamide (Vimpat -) 100 mg PO BID [facility] Last Admin: 09/11/17 09:00 Dose: 100 mg Nifedipine (Procardia Xl -) 30 mg PO ONCE ONE Stop: 09/11/17 11:42 Nifedipine (Procardia Xl -) [address] GENERAL: young male with autism, lying in bed, alert HEENT: PEARRLA, EOMI LUNGS: few rhonchi, left pigtail catheter HEART: tachycardia, regular rhythm, no murmurs ABDOMEN: soft, NT, ND EXTREMITIES: 2+ pulses, warm, well-perfused, 1+ edema in all 4 extremities NEUROLOGICAL: EOMI, PERRLA, unresponsive to commands Laboratory Results - last 24 hr 09/10/17 09/11/17 09/11/17 20:30 06:02 06:02 WBC 12.4 H RBC 3.12 L D Hgb 9.1 L D Hct 26.4 L D MCV 84.7 MCH 29.3 MCHC 34.6 RDW 15.1 Plt Count 436 H MPV 6.8 L Neutrophils % 72.4 Lymphocytes % 19.4 Monocytes % 5.9 Eosinophils % 1.8 Basophils % 0.5 Sodium 146 H Potassium 4.6 D Chloride 105 Carbon Dioxide 31 Anion Gap 10 BUN 26 H D Creatinine 7.8 H* D Creat Clearance w eGFR 8.65 Random Glucose 88 Calcium 8.3 L Phosphorus 5.8 H Magnesium 2.4 Total Bilirubin 0.4 AST 23 ALT 15 Alkaline Phosphatase 64 Total Protein 5.4 L Albumin 1.8 L Blood Type O POSITIVE Antibody Screen Negative Crossmatch See Detail ASSESSMENT AND PLAN: Hypertensive Urgency Acute Kidney Injury requiring HD Acute Hypoxic Respiratory Failure Pneumonia Loculated Pleural Effusion Hyponatremia Severe Sepsis Lactic Acidosis Thrombocytopenia improved Anemia Autism - IR for possible drainage catheter change - ABX - monitor H/H - Normal transfusion thresholds - monitor urine output, creatinine - Titrate PO BP meds - Taper IV Labetalol - O2 as needed - PO as tolerated - DVT/GI prophylaxis - continue ICU monitoring Dr Isidro Critical care time spent in reviewing chart, evaluating patient and formulating plan 35 min
[2017-09-11] MEDS: hydrALAZINE HCL 50 MG TABLET (FP) PO SCH ×3 (12:05→21:16)
--- NOTE | 2017-09-11 12:39 | PN ---
Progress Note (short form) - Note Progress Note: Patient seen and examined All the events noted febrile this am. General: NAD Cor: tachy Lungs: coarse Abd: Soft, Normal bowel sounds, No organomegaly Ext:UE mild bilateral edema Neuro: alert and awake Last Vital Signs Temp Pulse Resp BP Pulse Ox 101.2 F H 112 H 12 151/108 97 09/11/17 10:00 09/11/17 12:08 09/11/17 12:08 09/11/17 12:08 09/11/17 10:00 CBC, BMP 09/11/17 06:02 09/11/17 06:02 Current Medications Generic Name Dose Route Start Last Admin Trade Name Freq PRN Reason Stop Dose Admin Acetaminophen 650 mg 09/01/17 17:04 09/11/17 08:44 Tylenol - PO 650 mg Q6H PRN Administration fever Albuterol/Ipratropium 1 amp 09/03/17 08:19 09/11/17 08:10 Duoneb - NEB [address] Administration Amino Acids 30 ml 09/03/17 16:15 09/11/17 09:03 Prosource No Carb Liquid Pkt NGT [address] Administration Carvedilol 25 mg 09/10/17 15:00 09/11/17 09:00 Coreg - PO [address] Administration Chlorhexidine Gluconate 1 applic 08/29/17 22:00 09/10/17 21:25 Hibiclens For Decolonization - TP [address] Administration Docusate Sodium 100 mg 09/04/17 10:00 Colace Liquid - NGT TID PRN CONSTIPATION Hydralazine HCl 50 mg 09/11/17 12:00 09/11/17 12:05 Apresoline - PO [address] Administration Sodium Chloride 250 mls @ 3,000 mls/hr 09/10/17 20:26 Normal Saline - IV 09/11/17 20:25 PRN PRN Hypotension during Dialysis Lacosamide 100 mg 09/10/17 22:00 09/11/17 09:00 Vimpat - PO [address] Administration Nifedipine 120 mg 09/12/17 10:00 Procardia Xl - PO DAILY [facility] in the setting of severe HTN crisis -resolved Now anemia likely a component of acute illness/ESRD supportive transfusions as needed. EPO could be considered later. ESRD ?etiology : suspect GN Fevers: per ICU/ID call with questions. Problem List - Problems (1) Acute renal failure Code(s): N17.9 - ACUTE KIDNEY FAILURE, UNSPECIFIED Qualifiers: Acute renal failure type: unspecified Qualified Code(s): N17.9 - Acute kidney failure, unspecified (2) Anemia Code(s): D64.9 - ANEMIA, UNSPECIFIED (3) Thrombocytopenia Code(s): D69.6 - THROMBOCYTOPENIA, UNSPECIFIED (4) Hypertensive urgency Code(s): I16.0 - HYPERTENSIVE URGENCY (5) Seizure Code(s): R56.9 - UNSPECIFIED CONVULSIONS
--- NOTE | 2017-09-11 13:40 | PN ---
Progress Note (short form) - Note Progress Note: CC: htn urgency S: HR's progressively increasing this afternoon. Patient pointing to mouth as source of discomfort. Also with fever. otherwise calm. hydralazine added back today for elevated bp's. Current Medications Acetaminophen (Tylenol -) 650 mg PO Q6H PRN PRN Reason: fever Last Admin: 09/11/17 08:44 Dose: 650 mg Albuterol/Ipratropium (Duoneb -) 1 amp NEB RQID [facility] Last Admin: 09/11/17 12:40 Dose: 1 amp Amino Acids (Prosource No Carb Liquid Pkt) 30 ml NGT DAILY [facility] Last Admin: 09/11/17 09:03 Dose: 30 ml Carvedilol (Coreg -) 25 mg PO BID [facility] Last Admin: 09/11/17 09:00 Dose: 25 mg Chlorhexidine Gluconate (Hibiclens For Decolonization -) 1 applic TP HS [facility] Last Admin: 09/10/17 21:25 Dose: 1 applic Docusate Sodium (Colace Liquid -) 100 mg NGT TID PRN PRN Reason: CONSTIPATION Hydralazine HCl (Apresoline -) 50 mg PO TID [facility] Last Admin: 09/11/17 12:05 Dose: 50 mg Sodium Chloride (Normal Saline -) 250 mls @ 3,000 mls/hr IV PRN PRN PRN Reason: Hypotension during Dialysis Stop: 09/11/17 20:25 Lacosamide (Vimpat -) 100 mg PO BID [facility] Last Admin: 09/11/17 09:00 Dose: 100 mg Nifedipine (Procardia Xl -) 120 mg PO DAILY [facility] Vital Signs - 24 hr 09/10/17 09/10/17 09/10/17 14:00 17:00 19:00 Temperature 97.2 F L Pulse Rate 76 90 95 H Respiratory 22 Rate Blood Pressure 114/54 148/99 135/90 O2 Sat by Pulse Oximetry (%) 09/10/17 09/10/17 09/10/17 19:55 19:57 20:00 Temperature 97.8 F Pulse Rate 84 96 H Respiratory 18 18 Rate Blood Pressure 146/102 148/101 O2 Sat by Pulse 100 Oximetry (%) 09/10/17 09/10/17 09/10/17 20:30 21:00 21:30 Temperature Pulse Rate 98 H 96 H 97 H Respiratory 18 18 18 Rate Blood Pressure 140/100 150/97 155/101 O2 Sat by Pulse Oximetry (%) 09/10/17 09/10/17 09/10/17 22:00 22:30 23:00 Temperature Pulse Rate 100 H 98 H 99 H Respiratory 18 18 18 Rate Blood Pressure 150/97 156/99 160/97 O2 Sat by Pulse Oximetry (%) 09/10/17 09/10/17 09/11/17 23:30 23:35 03:00 Temperature 97.4 F L Pulse Rate 98 H 99 H 96 H Respiratory 18 18 18 Rate Blood Pressure 162/98 168/94 169/113 O2 Sat by Pulse Oximetry (%) 09/11/17 09/11/17 09/11/17 05:00 07:00 08:00 Temperature Pulse Rate 109 H 106 H 110 H Respiratory 11 L 12 12 Rate Blood Pressure 176/119 173/112 180/137 O2 Sat by Pulse Oximetry (%) 09/11/17 09/11/17 09/11/17 09:00 10:00 12:00 Temperature 101.2 F H Pulse Rate 112 H 112 H Respiratory 12 12 Rate Blood Pressure 177/127 151/108 O2 Sat by Pulse 100 97 Oximetry (%) 09/11/17 13:08 Temperature 100.5 F H Pulse Rate 112 H Respiratory 12 Rate Blood Pressure 155/89 O2 Sat by Pulse Oximetry (%) Intake & Output 09/09/17 09/10/17 09/11/17 09/12/17 07:59 07:59 07:59 07:59 Intake Total 1090 1730 605 Output Total 2550 75 125 Balance -1460 1655 480 Weight 180 lb 1.883 oz 182 lb 14.4 oz nad, calm follows commands and makes eye contact. nad no jvd rrr s1 s2 no mrg dullness at left base, nl effort. + chest tube. no jaundice diaphoresis pos dp pt no le e/c/c abd nd pos bs + ulceratio?/erythema at tip of tongue CBC, BMP 09/11/17 06:02 09/11/17 06:02 cxr 09/10: progressive fluid and infiltrate on left. --> chest tube was adjusted. ecg: sr,prolonged qtc, no ischemic changes echo 08/2017: nl lv/rv, no sig valve path cxr: left eff tele: sinus tach a/p: 22 m hx autism, seizures, possible underlying ckd/htn here with ams, respiratory failure/sepsis, anna requiring HD and hypertensive urgency. Cardiac course complicated by mild troponin elevation and prolonged qtc. anna requiring HD: -renal eval in progress, planned for biopsy -currently getting HD here htn urgency/emergency: -elevated at times -now on nicard gtt. will get po procardia today as well and try to titrate off gtt. - 09/03: no IV access for cardene drip. needs po meds through NG tube --> started norvasc 10, hydral 20 tid. - 09/04 remains htn. Uptitrated hydralazine to 50 tid. This afternoon remains hypertensive. Will add carvedilol 6.25 bid. - 09/05: remains htn. will uptitrate coreg to 12.5 bid. - 09/06: extubated today (no longer with NGT) and made NPO. Was unable to get po meds today. --> remains hypertensive. No longer on sedation --> can get IV labetolol drip. Recommend initiation of labetolol drip. - 09/07: BP improved on labetolol drip. Patient cleared for po meds. Discussed with renal. Will initiate coreg 12.5 mg bid, nifedipine 10 mg po tid. uptitrate regimen as needed in order to wean off labetolol drip. 09/08: BP well controlled this afternoon 130/84mmHg on oral regimen as outlined above. -echo here unremarkable 09/09: BP elevated this AM. Now back on Labetelol gtt. Would recommend increase coreg up to 25mg PO BID and reattempt Labatelol wean. Being managed by renal team. 09/10: BP slowly improving. coreg d/c overnight. Would stop labetolol drip and resume coreg at 25 bid. Would optimize coreg dose prior to adding on clonidine. (stop clonidine). Con't nifedipine. Discussed plan with renal. 09/11: con't coreg 25 bid, nifedipine. Hydralazine added back today, uptitrate as needed. management of mouth pain per pmd. abnl ecg: -prolonged qtc, possibly due to anna -qtc improved on repeat ecg. abnormal troponins - likely increased in setting of ANNA. likely demand, no concern for acs. anemia: -chronic, mgm't per primary team respiratory failure s/p intubation 09/02 and extubation 09/06 - with white out of left lung - 09/04 s/p chest tube placement. - 09/11: ongoing fever, chest ct pending. eval/mgm't by pmd/critical care team ongoing.
--- NOTE | 2017-09-11 15:03 | PN ---
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 Overtly tolerating diet. MBS deferred sec fever/pl effusion. New onset Bruxism reported by pt's mother.
--- NOTE | 2017-09-11 15:57 | PN ---
Progress Note, Physician History of Present Illness: Pt seen and examined at bedside. He is awake and appears comfortable. He tolerated HD last night. - Current Medication List Current Medications: Active Medications Acetaminophen (Tylenol -) 650 mg PO Q6H PRN PRN Reason: fever Last Admin: 09/11/17 08:44 Dose: 650 mg Albuterol/Ipratropium (Duoneb -) 1 amp NEB RQID [facility] Last Admin: 09/11/17 15:16 Dose: 1 amp Amino Acids (Prosource No Carb Liquid Pkt) 30 ml NGT DAILY [facility] Last Admin: 09/11/17 09:03 Dose: 30 ml Carvedilol (Coreg -) 25 mg PO BID [facility] Last Admin: 09/11/17 09:00 Dose: 25 mg Chlorhexidine Gluconate (Hibiclens For Decolonization -) 1 applic TP HS [facility] Last Admin: 09/10/17 21:25 Dose: 1 applic Docusate Sodium (Colace Liquid -) 100 mg NGT TID PRN PRN Reason: CONSTIPATION Hydralazine HCl (Apresoline -) 50 mg PO TID [facility] Last Admin: 09/11/17 12:05 Dose: 50 mg Sodium Chloride (Normal Saline -) 250 mls @ 3,000 mls/hr IV PRN PRN PRN Reason: Hypotension during Dialysis Stop: 09/11/17 20:25 Lacosamide (Vimpat -) 100 mg PO BID [facility] Last Admin: 09/11/17 09:00 Dose: 100 mg Nifedipine (Procardia Xl -) 120 mg PO DAILY [facility] - Objective Vital Signs: Vital Signs Temperature 100.5 F H 09/11/17 14:08 Pulse Rate 112 H 09/11/17 14:08 Respiratory Rate 12 09/11/17 14:08 Blood Pressure 155/89 09/11/17 14:08 O2 Sat by Pulse Oximetry (%) 97 09/11/17 10:00 Constitutional: Yes: Calm Eyes: Yes: Conjunctiva Clear HENT: Yes: Atraumatic Cardiovascular: Yes: S1, S2 Respiratory: Yes: Other (chest tube) Gastrointestinal: Yes: Soft Genitourinary: Yes: Incontinence Musculoskeletal: Yes: WNL Edema: Yes Edema: LUE: Trace, RUE: Trace Neurological: Yes: Pre-Existing Deficit Labs: CBC, BMP 09/11/17 06:02 09/11/17 06:02 INR, PTT INR 1.16 (0.82-1.09) H 09/10/17 08:25 Fibrinogen 579.0 mg/dL (238-498) H 08/29/17 20:00 - ....Imaging Chest X-ray: Report Reviewed Problem List - Problems (1) Acute renal failure Code(s): N17.9 - ACUTE KIDNEY FAILURE, UNSPECIFIED Qualifiers: Acute renal failure type: unspecified Qualified Code(s): N17.9 - Acute kidney failure, unspecified (2) Anemia Code(s): D64.9 - ANEMIA, UNSPECIFIED (3) Hyperkalemia Code(s): E87.5 - HYPERKALEMIA (4) Hypertensive urgency Code(s): I16.0 - HYPERTENSIVE URGENCY (5) Sepsis Code(s): A41.9 - SEPSIS, UNSPECIFIED ORGANISM Qualifiers: Sepsis type: sepsis due to unspecified organism Qualified Code(s): A41.9 - Sepsis, unspecified organism (6) Thrombocytopenia Code(s): D69.6 - THROMBOCYTOPENIA, UNSPECIFIED (7) Seizure Code(s): R56.9 - UNSPECIFIED CONVULSIONS Assessment/Plan Current Medications Generic Name Dose Route Start Last Admin Trade Name Freq PRN Reason Stop Dose Admin Acetaminophen 650 mg 09/01/17 17:04 09/11/17 08:44 Tylenol - PO 650 mg Q6H PRN Administration fever Albuterol/Ipratropium 1 amp 09/03/17 08:19 09/11/17 15:16 Duoneb - NEB [address] Administration Amino Acids 30 ml 09/03/17 16:15 09/11/17 09:03 Prosource No Carb Liquid Pkt NGT [address] Administration Carvedilol 25 mg 09/10/17 15:00 09/11/17 09:00 Coreg - PO [address] Administration Chlorhexidine Gluconate 1 applic 08/29/17 22:00 09/10/17 21:25 Hibiclens For Decolonization - TP [address] Administration Docusate Sodium 100 mg 09/04/17 10:00 Colace Liquid - NGT TID PRN CONSTIPATION Hydralazine HCl 50 mg 09/11/17 12:00 09/11/17 15:54 Apresoline - PO [address] Administration Sodium Chloride 250 mls @ 3,000 mls/hr 09/10/17 20:26 Normal Saline - IV 09/11/17 20:25 PRN PRN Hypotension during Dialysis Lacosamide 100 mg 09/10/17 22:00 09/11/17 09:00 Vimpat - PO [address] Administration Nifedipine 120 mg 09/12/17 10:00 Procardia Xl - PO DAILY LANE Impression 1. ANNA 2. HTN urgency/emergency 3. hyperkalemia 4. hyponatremia 5. autism 6. hx of seizure 7. anemia 8. CKD 9. lactic acidosis improving 10. thrombocytopenia 11. hyperkalemia 12. pleural effusion 13. acute resp failure requiring intubation Plan - will arrange for HD in am - cts follow up for chest tube - follow up blood cultures - discussed plan with his family - kidney biopsy once more stable - chest tube care - pt on PO bp meds - cont procardia - hydralazine added Dr Velasquez
--- NOTE | 2017-09-11 16:35 | PN ---
Progress Note (short form) - Note Progress Note: Spoke to Dr. Vallejo in regards to pigtail placement. States that if patient is not draining to repeat chest CT to evaluate the current chest tube placement and then decide if he should exchange it. -Chest CT w/o contrast ordered for today Also spoke to Dr. Vallejo on possible kidney biopsy and states that if Anesthesia clears him and puts him in complete sedation with airway protection, he would perform the biopsy. -Will contact anesthesia.
--- NOTE | 2017-09-11 16:44 | PN ---
Physical Exam: SUBJECTIVE: Patient seen and examined at bedside. Mother present. OBJECTIVE: Vital Signs Period Temp Pulse Resp BP Sys/Mora Pulse Ox Last 24 Hr 97.2 F-101.2 F 84-112 10-18 135-180/89-137 97-100 GENERAL: Awake, alert, no signs of distress. LUNGS: on face tent; CTA; left pigtail catheter; right upper chest permacath HEART: Regular rate and rhythm, S1, S2 without murmur, rub or gallop ABDOMEN: Soft, nontender, nondistended, hypoactive bowel sounds, no guarding, no rebound UPPER EXTREMITIES: 2+ pulses, warm, well-perfused, 1-2+ edema, mittens LOWER EXTREMITIES: 2+ pulses, warm, well-perfused, 1-2+ edema improved Laboratory Results - last 24 hr 09/10/17 09/11/17 09/11/17 20:30 06:02 06:02 WBC 12.4 H RBC 3.12 L D Hgb 9.1 L D Hct 26.4 L D MCV 84.7 MCH 29.3 MCHC 34.6 RDW 15.1 Plt Count 436 H MPV 6.8 L Neutrophils % 72.4 Lymphocytes % 19.4 Monocytes % 5.9 Eosinophils % 1.8 Basophils % 0.5 Sodium 146 H Potassium 4.6 D Chloride 105 Carbon Dioxide 31 Anion Gap 10 BUN 26 H D Creatinine 7.8 H* D Creat Clearance w eGFR 8.65 Random Glucose 88 Calcium 8.3 L Phosphorus 5.8 H Magnesium 2.4 Total Bilirubin 0.4 AST 23 ALT 15 Alkaline Phosphatase 64 Total Protein 5.4 L Albumin 1.8 L Blood Type O POSITIVE Antibody Screen Negative Crossmatch See Detail Active Medications Generic Name Dose Route Start Last Admin Trade Name Freq PRN Reason Stop Dose Admin Acetaminophen 650 mg 09/01/17 17:04 09/11/17 08:44 Tylenol - PO 650 mg Q6H PRN Administration fever Albuterol/Ipratropium 1 amp 09/03/17 08:19 09/11/17 15:16 Duoneb - NEB [address] Administration Amino Acids 30 ml 09/03/17 16:15 09/11/17 09:03 Prosource No Carb Liquid Pkt NGT [address] Administration Carvedilol 25 mg 09/10/17 15:00 09/11/17 09:00 Coreg - PO [address] Administration Chlorhexidine Gluconate 1 applic 08/29/17 22:00 09/10/17 21:25 Hibiclens For Decolonization - TP [address] Administration Docusate Sodium 100 mg 09/04/17 10:00 Colace Liquid - NGT TID PRN CONSTIPATION Epoetin Mir 4,000 unit 09/12/17 15:57 Epogen - IVPUSH 09/12/17 15:58 ONCE ONE Hydralazine HCl 50 mg 09/11/17 12:00 09/11/17 15:54 Apresoline - PO [address] Administration Sodium Chloride 250 mls @ 3,000 mls/hr 09/10/17 20:26 Normal Saline - IV 09/11/17 20:25 PRN PRN Hypotension during Dialysis Sodium Chloride 250 mls @ 3,000 mls/hr 09/11/17 15:57 Normal Saline - IV 09/12/17 15:57 PRN PRN Hypotension during Dialysis Lacosamide 100 mg 09/10/17 22:00 09/11/17 09:00 Vimpat - PO [address] Administration Nifedipine 120 mg 09/12/17 10:00 Procardia Xl - PO DAILY LANE ASSESSMENT/PLAN 22 year-old male with PMH significant for HTN, autism, and epilepsy. Admitted for pneumonia, ANNA, hypertensive emergency. Hospital course complicated by acute respiratory failure, requiring intubation and emergent HD. Acute hypoxic respiratory failure, resolved Left pleural effusion with loculation --s/p thoracentesis 09/02 --s/p pigtail 10; almost no chest tube output over past 24 hours and CXR continues to show large left pleural effusion --IR/CTS to evaluate for possible replacement tube Severe sepsis secondary to pneumonia --afebrile, WBC 12.9 --completed 10 days of Zosyn --observe off antibiotics --duonebs Acute renal failure --permacath placed 09/10 --HD tomorrow --biopsy planned Severe, refractory hypertension --continue nifedipine, carvedilol; hydralazine started Epilepsy --continue Vimpat DVT prophylaxis: SCDs Dispo: continues to require ICU level care. Full code. Visit type - Emergency Visit Emergency Visit: Yes ED Registration Date: 08/29/17 Care time: The patient presented to the Emergency Department on the above date and was hospitalized for further evaluation of their emergent condition. - New Patient This patient is new to me today: No - Critical Care Critical Care patient: Yes Total Critical Care Time (in minutes): 35 Critical Care Statement: The care of this patient involved high complexity decision making to prevent further life threatening deterioration of the patient 's condition and/or to evaluate & treat vital organ system(s) failure or risk of failure.
[2017-09-11] MEDS ORDERED: VANCOMYCIN 1,250 MG in DEXTROSE 5%-WATER - 250 ML IVPB ONE (18:15)
[2017-09-11] MEDS: CHLORHEXIDINE GLUCONATE 4% CLEANSER FOR DECOLONIZATION TP SCH (22:00)
[2017-09-12] MEDS: MAG HYDROX/ALH/SMC/DPHA/LIDO 240 ML MOUTHWASH MM SCH ×4 (00:10→19:29)
[2017-09-12] MEDS: hydrALAZINE HCL 50 MG TABLET (FP) PO SCH ×3 (05:32→21:35)
[2017-09-12] MEDS ORDERED: PT OWN MED DRAWER 7, Y5N ONE ×3 (06:29→21:44)
[2017-09-12 06:34] LABS: BASO % 0.4 % (0-2.0); EOS % 2.4 % (0-4.5); HEMATOCRIT 28.2 % (35.4-49); HEMOGLOBIN 9.8 GM/dL (11.7-16.9); LYMPH % 16.5 % (8-40); MCH 29.5 pg (25.7-33.7); MCHC 34.6 g/dl (32.0-35.9); MEAN CELL VOLUME 85.1 fl (80-96); MEAN PLT VOLUME 7.5 fl (7.5-11.1); MONO % 5.2 % (3.8-10.2); NEUT % 75.5 % (42.8-82.8); PLATELET COUNT 442 K/MM3 (134-434); RBC 3.31 M/mm3 (4.00-5.60); WHITE BLOOD COUNT 14.9 K/mm3 (4.0-10.0)
[2017-09-12 07:10] LABS: ALBUMIN 1.9 g/dl (3.4-5.0); ANION GAP 8 (8-16); BILIRUBIN,TOTAL 0.2 mg/dL (0.2-1.0); BLOOD UREA NITROGEN 49 mg/dL (7-18); CALCIUM 8.1 mg/dL (8.5-10.1); CHLORIDE 101 mmol/L (98-107); CO2 30 mmol/L (21-32); GLUCOSE,RANDOM 95 mg/dL (74-106); MAGNESIUM 2.3 mg/dL (1.8-2.4); PHOSPHOROUS 7.1 mg/dL (2.5-4.9); POTASSIUM 4.5 mmol/L (3.5-5.1); SGOT/AST 18 U/L (15-37); SGPT/ALT 17 U/L (12-78); SODIUM 139 mmol/L (136-145); TOT PROT 5.6 g/dl (6.4-8.2)
[2017-09-12 07:15] LABS: ALK PHOS 70 U/L (45-117)
--- NOTE | 2017-09-12 07:30 | PN ---
Progress Note, Physician Chief Complaint: ID Tmax 101 Had been off antibiotics Got Vancomycin dose - Current Medication List Current Medications: Active Medications Acetaminophen (Tylenol -) 650 mg PO Q6H PRN PRN Reason: fever Last Admin: 09/11/17 19:29 Dose: 650 mg Albuterol/Ipratropium (Duoneb -) 1 amp NEB RQID [facility] Last Admin: 09/11/17 21:00 Dose: 1 amp Amino Acids (Prosource No Carb Liquid Pkt) 30 ml NGT DAILY [facility] Last Admin: 09/11/17 09:03 Dose: 30 ml Carvedilol (Coreg -) 25 mg PO BID [facility] Last Admin: 09/11/17 21:16 Dose: 25 mg Chlorhexidine Gluconate (Hibiclens For Decolonization -) 1 applic TP HS [facility] Last Admin: 09/11/17 22:00 Dose: 1 applic Docusate Sodium (Colace Liquid -) 100 mg NGT TID PRN PRN Reason: CONSTIPATION Epoetin Mir (Epogen -) 4,000 unit IVPUSH ONCE ONE Stop: 09/12/17 15:58 Hydralazine HCl (Apresoline -) 50 mg PO TID [facility] Last Admin: 09/12/17 05:32 Dose: 50 mg Sodium Chloride (Normal Saline -) 250 mls @ 3,000 mls/hr IV PRN PRN PRN Reason: Hypotension during Dialysis Stop: 09/12/17 15:57 Lacosamide (Vimpat -) 100 mg PO BID [facility] Last Admin: 09/11/17 21:16 Dose: 100 mg Lidocaine/Aluminum/Magnesium/Simeth (Magic Mouthwash *Sjr Formula* -) 5 ml MM Q6HPO [facility] Last Admin: 09/12/17 05:32 Dose: 5 ml Nifedipine (Procardia Xl -) 120 mg PO DAILY [facility] - Objective Vital Signs: Vital Signs Temperature 99.8 F H 09/12/17 06:00 Pulse Rate 126 H 09/12/17 06:00 Respiratory Rate 21 09/12/17 06:00 Blood Pressure 182/101 09/12/17 06:00 O2 Sat by Pulse Oximetry (%) 95 09/11/17 21:30 Constitutional: Yes: No Distress Neck: Yes: WNL, Supple Cardiovascular: Yes: Regular Rate and Rhythm, Tachycardia, S1, S2 Respiratory: Yes: WNL, Regular, CTA Bilaterally, Other (chest tube) Gastrointestinal: Yes: Soft. No: Tenderness Edema: Yes Labs: CBC, BMP 09/12/17 06:05 INR, PTT INR 1.16 (0.82-1.09) H 09/10/17 08:25 Fibrinogen 579.0 mg/dL (238-498) H 08/29/17 20:00 Problem List - Problems (1) Acute renal failure Code(s): N17.9 - ACUTE KIDNEY FAILURE, UNSPECIFIED Qualifiers: Acute renal failure type: unspecified Qualified Code(s): N17.9 - Acute kidney failure, unspecified (2) Hypertensive urgency Code(s): I16.0 - HYPERTENSIVE URGENCY (3) Sepsis Code(s): A41.9 - SEPSIS, UNSPECIFIED ORGANISM Qualifiers: Sepsis type: sepsis due to unspecified organism Qualified Code(s): A41.9 - Sepsis, unspecified organism Assessment/Plan Microbiology Laboratory Tests 09/12/17 06:05 WBC 14.9 H Hgb 9.8 L Hct 28.2 L Plt Count 442 H Assessment New onset fever ? related atalectsis effusion or ? secondary infection /bacteremia Plan Await blood cultures Reposition chest tube ? will arnaldo to broaden coverage if fevers persist ( GNBs) [facility]
[2017-09-12 07:50] LABS: CREATININE 10.1 mg/dL (0.7-1.3)
[2017-09-12] MEDS: ALBUTEROL SO4 2.5/IPRATROPIUM 0.5 INH SOL 3 ML VIAL.NEB. NEB SCH (08:15)
[2017-09-12] MEDS ORDERED: SODIUM CHLORIDE 250 ML IV PRN (08:30)
[2017-09-12] MEDS ORDERED: EPOETIN ALFA 2,000 UNIT/1 ML VIAL IVPUSH ONE (09:00)
--- NOTE | 2017-09-12 09:37 | PN ---
Physical Exam: SUBJECTIVE: Patient seen and examined Since yesterday, a dose of vanc given for fever. pt's mom noticed new-onset bruxism. Pt spiked temp of 101.2, still hypertensive. OBJECTIVE: Vital Signs Period Temp Pulse Resp BP Sys/Mora Pulse Ox Last 24 Hr 98.3 F-101.2 F 107-126 12-29 117-188/86-127 95-97 GENERAL: young male with autism, lying in bed, in NAD HEENT: PEARRLA, EOMI LUNGS: decreased left-sided lung sounds, chest tube in place on left HEART: tachycardia, regular rhythm, no murmurs ABDOMEN: soft, NT, ND EXTREMITIES: 2+ pulses, warm, well-perfused, no edema in all 4 extremities NEUROLOGICAL: EOMI, PEARRLA, unresponsive to commands Laboratory Results - last 24 hr 09/12/17 09/12/17 06:05 06:05 WBC 14.9 H RBC 3.31 L Hgb 9.8 L Hct 28.2 L MCV 85.1 MCH 29.5 MCHC 34.6 RDW 15.0 Plt Count 442 H MPV 7.5 D Neutrophils % 75.5 Lymphocytes % 16.5 Monocytes % 5.2 Eosinophils % 2.4 Basophils % 0.4 Sodium 139 Potassium 4.5 Chloride 101 Carbon Dioxide 30 Anion Gap 8 BUN 49 H D Creatinine 10.1 H* D Creat Clearance w eGFR 6.42 Random Glucose 95 Calcium 8.1 L Phosphorus 7.1 H D Magnesium 2.3 Total Bilirubin 0.2 D AST 18 D ALT 17 Alkaline Phosphatase 70 Total Protein 5.6 L Albumin 1.9 L Active Medications Generic Name Dose Route Start Last Admin Trade Name Miguel Angelq PRN Reason Stop Dose Admin Acetaminophen 650 mg 09/01/17 17:04 09/11/17 19:29 Tylenol - PO 650 mg Q6H PRN Administration fever Albuterol/Ipratropium 1 amp 09/03/17 08:19 09/12/17 08:15 Duoneb - NEB [address] Administration Amino Acids 30 ml 09/03/17 16:15 09/11/17 09:03 Prosource No Carb Liquid Pkt NGT [address] Administration Carvedilol 25 mg 09/10/17 15:00 09/11/17 21:16 Coreg - PO [address] Administration Chlorhexidine Gluconate 1 applic 04/04/18 22:00 09/11/17 22:00 Hibiclens For Decolonization - TP [address] Administration Docusate Sodium 100 mg 09/04/17 10:00 Colace Liquid - NGT TID PRN CONSTIPATION Hydralazine HCl 50 mg 09/11/17 12:00 09/12/17 05:32 Apresoline - PO [address] Administration Lacosamide 100 mg 09/10/17 22:00 09/11/17 21:16 Vimpat - PO [address] Administration Lidocaine/Aluminum/Magnesium/Simeth 5 ml 09/12/17 00:00 09/12/17 05:32 Magic Mouthwash *Sjr Formula* - MM [address] Administration Nifedipine 120 mg 09/12/17 10:00 Procardia Xl - PO DAILY LANE ASSESSMENT/PLAN: 22M w/ hx of autism and seizure disorder who presented with severe HTN, anemia, thrombocytopenia, leukocytosis, hyperkalemia, and ANNA, admitted to ICU. Pt is s/ p PRBCs, platelets, FFP, dialysis, s/p intubation on 09/02, s/p chest tube placement on 09/04, s/p extubation on 09/06, s/p permacath placement and 1 unit of PRBCs on 09/10. CV #hypertensive urgency/emergency- unclear etiology, improving -per nephro and cards, continue coreg 25 BID, procardia 120mg daily, and po hydralazine 50mg q8h. If uncontrolled on these 3 meds, can start ACEI, nitrate, or clonidine. -monitor MAPs -goal BP is < 120/80 #troponinemia- likely 2/2 renal failure and demand ischemia from HTN -peaked, no longer trending Resp #acute hypoxic resp failure -pt s/p extubation on 09/06 -CT chest: loculated effusion -Dr. Ivy made aware. -pt to get new chest tube by IR this afternoon. Hematology #anemia and thrombocytopenia -hematology on board, recs appreciated. -Hgb of 9.8 this am -platelets wnl ID #sepsis -leukocytosis of 14.9, tachycardia, febrile to 101.2 overnight -ID on board, Dr. Moise, recs appreciated. Abx stopped on 09/10. -f/u repeat Bcx -f/u duplex of extremities Nephro #hyperkalemia and ANNA -nephrology on board, recs appreciated. Renal bx to be done once stable. Per IR , pt can get renal bx if cleared by anesthesia. -pt s/p permacath placement on 09/10 Neuro #seizure disorder -neuro on board, f/u recs. continue po lacosamide GI #diarrhea- resolved FEN/ppx -no IVF -hyperphosphatemia -dysphagia puree -no GI ppx indicated -heparin 5000U TID Case discussed with attending, Dr. Monk. -Rashel Iniguez MD PGY1 ICU Team Visit type - Emergency Visit Emergency Visit: Yes ED Registration Date: 08/29/17 Care time: The patient presented to the Emergency Department on the above date and was hospitalized for further evaluation of their emergent condition. - New Patient This patient is new to me today: No - Critical Care Critical Care patient: Yes Total Critical Care Time (in minutes): 36 Critical Care Statement: The care of this patient involved high complexity decision making to prevent further life threatening deterioration of the patient 's condition and/or to evaluate & treat vital organ system(s) failure or risk of failure.
[2017-09-12] MEDS: AMINO ACIDS/PROTEIN HYDROLYS 30 ML LIQUID.PKT NGT SCH (10:00)
--- NOTE | 2017-09-12 11:17 | PN ---
Physical Exam: SUBJECTIVE: Patient seen and examined in ICU. Tolerating HD, watching i pad, makes eye contact, follows direction. Mother at bedside Events: T max 101.2, afebrile this AM OBJECTIVE: Vital Signs Period Temp Pulse Resp BP Sys/Mora Pulse Ox Last 24 Hr 98.3 F-100.5 F 107-129 12-29 117-188/86-130 95-96 PE Neuro: awake, alert, Pulm: diminished + NC, L sided chest tube CV: s1 s2 tachycardia Abd: s nt nd +bs Ext: no le edema Access: RCW permacath Laboratory Results - last 24 hr 09/12/17 09/12/17 06:05 06:05 WBC 14.9 H RBC 3.31 L Hgb 9.8 L Hct 28.2 L MCV 85.1 MCH 29.5 MCHC 34.6 RDW 15.0 Plt Count 442 H MPV 7.5 D Neutrophils % 75.5 Lymphocytes % 16.5 Monocytes % 5.2 Eosinophils % 2.4 Basophils % 0.4 Sodium 139 Potassium 4.5 Chloride 101 Carbon Dioxide 30 Anion Gap 8 BUN 49 H D Creatinine 10.1 H* D Creat Clearance w eGFR 6.42 Random Glucose 95 Calcium 8.1 L Phosphorus 7.1 H D Magnesium 2.3 Total Bilirubin 0.2 D AST 18 D ALT 17 Alkaline Phosphatase 70 Total Protein 5.6 L Albumin 1.9 L Active Medications Generic Name Dose Route Start Last Admin Trade Name Freq PRN Reason Stop Dose Admin Acetaminophen 650 mg 09/01/17 17:04 09/11/17 19:29 Tylenol - PO 650 mg Q6H PRN Administration fever Albuterol/Ipratropium 1 amp 09/03/17 08:19 09/12/17 08:15 Duoneb - NEB [address] Administration Amino Acids 30 ml 09/03/17 16:15 09/11/17 09:03 Prosource No Carb Liquid Pkt NGT [address] Administration Carvedilol 25 mg 09/10/17 15:00 09/11/17 21:16 Coreg - PO [address] Administration Chlorhexidine Gluconate 1 applic 08/29/17 22:00 09/11/17 22:00 Hibiclens For Decolonization - TP [address] Administration Docusate Sodium 100 mg 09/04/17 10:00 Colace Liquid - NGT TID PRN CONSTIPATION Hydralazine HCl 50 mg 09/11/17 12:00 09/12/17 05:32 Apresoline - PO [address] Administration Lacosamide 100 mg 09/10/17 22:00 09/11/17 21:16 Vimpat - PO [address] Administration Lidocaine/Aluminum/Magnesium/Simeth 5 ml 09/12/17 00:00 09/12/17 05:32 Magic Mouthwash *Sjr Formula* - MM [address] Administration Nifedipine 120 mg 09/12/17 10:00 Procardia Xl - PO DAILY [facility] Microbiology 09/05/17 23:00 Shiga Toxin Test - Preliminary Stool Assessment: 22 year old male with PMH significant for HTN, autism, and epilepsy admitted for pneumonia, ANNA, hypertensive emergency. Hospital course complicated by acute respiratory failure, requiring intubation and emergent HD, now with permath placed on 09/10, extubated3 08/09. Plan: 1. Left pleural effusion with loculation - s/p thoracentesis 09/02 - s/p pigtail 09/04 - CT surgery and IR to discuss for IR drainage and posterior CT placement 2. Severe sepsis secondary to pneumonia, fevers - atalectasis vs secondary infection - Received dose of vano - Repeat cultures pending - Restart broad abx if fevers persist - s/p 10 days zosyn 3. ANNA on HD - HD per renal, HD today - Give HTN meds prior to HD, do not hold - Biopsy planned 4. Severe, refractory hypertension - Continue nifedipine, carvedilol; hydralazine started 5. Acute hypoxic respiratory failure - Resolved 6. Epilepsy - Continue Vimpat 7. DVT prophylaxis: SCDs Dispo: continues to require ICU level care. Full code. Visit type - Emergency Visit Emergency Visit: Yes ED Registration Date: 08/29/17 Care time: The patient presented to the Emergency Department on the above date and was hospitalized for further evaluation of their emergent condition. - New Patient This patient is new to me today: No - Critical Care Critical Care patient: No
[2017-09-12] MEDS: LACOSAMIDE 50 MG TABLET PO SCH ×2 (11:30→21:35)
[2017-09-12] MEDS: NIFEdipine E.R 60 MG TABLET (UD) PO SCH (11:31)
[2017-09-12] MEDS: CARVEDILOL 25 MG TABLET (FP) PO SCH ×2 (11:31→21:35)
--- NOTE | 2017-09-12 12:12 | PN ---
Progress Note (short form) - Note Progress Note: CC: htn urgency S: pt does not communicate well. appears comfortable, no overnight events o: Current Medications Generic Name Dose Route Start Last Admin Trade Name Franko PRN Reason Stop Dose Admin Acetaminophen 650 mg 09/01/17 17:04 09/11/17 19:29 Tylenol - PO 650 mg Q6H PRN Administration fever Albuterol/Ipratropium 1 amp 09/12/17 11:44 Duoneb - NEB RQID PRN SHORT OF BREATH/WHEEZING Amino Acids 30 ml 09/03/17 16:15 09/11/17 09:03 Prosource No Carb Liquid Pkt NGT [address] Administration Carvedilol 25 mg 09/10/17 15:00 09/12/17 11:31 Coreg - PO [address] Administration Chlorhexidine Gluconate 1 applic 08/29/17 22:00 09/11/17 22:00 Hibiclens For Decolonization - TP [address] Administration Docusate Sodium 100 mg 09/04/17 10:00 Colace Liquid - NGT TID PRN CONSTIPATION Heparin Sodium (Porcine) 5,000 unit 09/12/17 14:00 Heparin - SQ TID LANE Hydralazine HCl 50 mg 09/11/17 12:00 09/12/17 05:32 Apresoline - PO [address] Administration Lacosamide 100 mg 09/10/17 22:00 09/12/17 11:30 Vimpat - PO [address] Administration Lidocaine/Aluminum/Magnesium/Simeth 5 ml 09/12/17 00:00 09/12/17 11:32 Magic Mouthwash *Sjr Formula* - MM [address] Administration Nifedipine 120 mg 09/12/17 10:00 09/12/17 11:31 Procardia Xl - PO [address] Administration Vital Signs Period Temp Pulse Resp BP Sys/Mora Pulse Ox Last 24 Hr 98.3 F-100.5 F 107-129 12-29 117-188/86-130 95-96 nad, calm nad no jvd rrr s1 s2 no mrg dullness at left base, nl effort. + chest tube. no jaundice diaphoresis no le e/c/c abd nd pos bs Laboratory Last Values WBC 14.9 K/mm3 (4.0-10.0) H 09/12/17 06:05 RBC 3.31 M/mm3 (4.00-5.60) L 09/12/17 06:05 Hgb 9.8 GM/dL (11.7-16.9) L 09/12/17 06:05 Hct 28.2 % (35.4-49) L 09/12/17 06:05 MCV 85.1 fl (80-96) 09/12/17 06:05 MCH 29.5 pg (25.7-33.7) 09/12/17 06:05 MCHC 34.6 g/dl (32.0-35.9) 09/12/17 06:05 RDW 15.0 % (11.9-15.9) 09/12/17 06:05 Plt Count 442 K/MM3 (134-434) H 09/12/17 06:05 MPV 7.5 fl (7.5-11.1) D 09/12/17 06:05 Neutrophils % 75.5 % (42.8-82.8) 09/12/17 06:05 Neutrophils % (Manual) 52.4 % (42.8-82.8) 09/06/17 06:20 Band Neutrophils % 0.0 % 09/06/17 06:20 Lymphocytes % 16.5 % (8-40) 09/12/17 06:05 Lymphocytes % (Manual) 33.3 % (8-40) D 09/06/17 06:20 Monocytes % 5.2 % (3.8-10.2) 09/12/17 06:05 Monocytes % (Manual) 2 % (3.8-10.2) L 09/06/17 06:20 Eosinophils % 2.4 % (0-4.5) 09/12/17 06:05 Eosinophils % (Manual) 11.9 % (0-4.5) H D 09/06/17 06:20 Basophils % 0.4 % (0-2.0) 09/12/17 06:05 Basophils % (Manual) 0.0 % (0-2.0) 09/06/17 06:20 Myelocytes % (Man) 0 % (0-2) D 09/06/17 06:20 Promyelocytes % (Man) 0 % (0-2) 09/06/17 06:20 Blast Cells % (Manual) 0 % (0-0) 09/06/17 06:20 Nucleated RBC % 0 % (0-0) 09/06/17 06:20 Metamyelocytes 0 % (0-2) 09/06/17 06:20 Hypochromia 0 09/05/17 06:15 Platelet Estimate Increased 09/06/17 06:20 Platelet Comment Rare giants plts 08/29/17 10:52 Polychromasia 1+ 09/06/17 06:20 Poikilocytosis 1+ 09/05/17 06:15 Anisocytosis 1+ 09/05/17 06:15 Microcytosis 1+ 09/05/17 06:15 Tear Drop Cells 1+ 08/29/17 10:52 Ovalocytes 1+ 08/29/17 10:52 Fragmented RBCs 1+ 08/29/17 10:52 Schistocytes 2+ 09/06/17 06:20 Morphology Comment See comment 08/29/17 18:00 ESR 96 mm/hr (0-10) H 08/31/17 05:40 Retic Count 3.57 % (0.5-1.5) H 09/05/17 06:15 Haptoglobin 160 mg/dL (34-200) 09/04/17 06:00 PT with INR 13.10 SEC (9.98-11.88) H 09/10/17 08:25 INR 1.16 (0.82-1.09) H 09/10/17 08:25 PTT (Actin FS) 31.1 SECONDS (26.9-34.4) 09/10/17 08:25 Fibrinogen 579.0 mg/dL (238-498) H 08/29/17 20:00 [id number] Activity >100.0 % (>66.8) 08/29/17 23:49 Puncture Site Right radial 09/02/17 22:23 ABG pH 7.46 (7.35-7.45) H 09/02/17 22:23 ABG pCO2 at Pt Temp 38.4 mmHg (35-45) 09/02/17 22:23 ABG pO2 at Pt Temp 64.4 mmHg (80-100) L 09/02/17 22:23 ABG HCO3 26.6 meq/L (22-26) H 09/02/17 22:23 ABG O2 Sat (Measured) 92.9 % (90-98.9) 09/02/17 22:23 ABG O2 Content 8.8 % vol (15-22) L* 09/02/17 22:23 ABG Base Excess 3.0 meq/l (-2-2) H 09/02/17 22:23 Wisam Test Positive 09/02/17 22:23 O2 Delivery Device Vent 09/02/17 22:23 Oxygen Flow Rate 70% 09/02/17 22:23 Vent Rate 16 09/02/17 22:23 Mechanical Rate Yes 09/02/17 22:23 PEEP 5.0 cmH2O 09/02/17 22:23 Pressure Support Vent 400 09/02/17 22:23 Sodium 139 mmol/L (136-145) 09/12/17 06:05 Potassium 4.5 mmol/L (3.5-5.1) 09/12/17 06:05 Chloride 101 mmol/L (98-107) 09/12/17 06:05 Carbon Dioxide 30 mmol/L (21-32) 09/12/17 06:05 Anion Gap 8 (8-16) 09/12/17 06:05 BUN 49 mg/dL (7-18) H D 09/12/17 06:05 Creatinine 10.1 mg/dL (0.7-1.3) H* D 09/12/17 06:05 Creat Clearance w eGFR 6.42 (>60) 09/12/17 06:05 Random Glucose 95 mg/dL (74-106) 09/12/17 06:05 Lactic Acid 0.7 mmol/L (0.0-2.0) 08/29/17 16:04 Calcium 8.1 mg/dL (8.5-10.1) L 09/12/17 06:05 Phosphorus 7.1 mg/dL (2.5-4.9) H D 09/12/17 06:05 Magnesium 2.3 mg/dL (1.8-2.4) 09/12/17 06:05 Iron 31 ug/dL (38-169) L 08/29/17 20:00 TIBC 149 ug/dL (250-450) L 08/29/17 20:00 Iron Saturation 21 % (15-55) 08/29/17 20:00 Transferrin 123 mg/dL (200-370) L 08/29/17 20:00 Ferritin 1092.933 ng/ml (16.4-293.9) H 08/29/17 20:00 Total Bilirubin 0.2 mg/dL (0.2-1.0) D 09/12/17 06:05 AST 18 U/L (15-37) D 09/12/17 06:05 ALT 17 U/L (12-78) 09/12/17 06:05 Alkaline Phosphatase 70 U/L (45-117) 09/12/17 06:05 LD Total 285 U/L (87-241) H 09/05/17 06:15 Creatine Kinase 373 IU/L (39-308) H 08/29/17 12:37 Creatine Kinase Index 2.5 % (0.0-5.0) 08/29/17 12:37 CK-MB (CK-2) 9.4 ng/mL (0.3-4.0) H 08/29/17 12:37 Troponin I 0.25 ng/ml (0.00-0.05) H 08/31/17 05:40 C-Reactive Protein 12.9 MG/DL (0.00-0.3) H 08/31/17 05:40 Total Protein 5.6 g/dl (6.4-8.2) L 09/12/17 06:05 Total Protein (PEP) 4.2 g/dL (6.0-8.5) L 08/29/17 20:00 Albumin 1.9 g/dl (3.4-5.0) L 09/12/17 06:05 Albumin (PEP) 1.9 gm/dl (2.9-4.4) L 08/29/17 20:00 Globulin 2.3 g/dL (2.2-3.9) 08/29/17 20:00 Albumin/Globulin Ratio 0.8 (0.7-1.7) 08/29/17 20:00 Beta Globulins 0.8 gm/dL (0.7-1.3) 08/29/17 20:00 Lipase 186 U/L (73-393) 08/29/17 10:52 Vitamin B12 331 pg/ml (180-914) 08/30/17 06:05 TSH 5.20 uIU/ml (0.358-3.74) H 08/29/17 12:37 Free T4 0.73 ng/dl (0.76-1.16) L 08/30/17 06:05 Urine Color Ltyellow 09/02/17 18:00 Urine Appearance Clear 09/02/17 18:00 Urine pH 8.0 (5.0-8.0) 09/02/17 18:00 Ur Specific [place] 1.009 (1.001-1.035) 09/02/17 18:00 Urine Protein 3+ (NEGATIVE) H 09/02/17 18:00 Urine Glucose (UA) 2+ (NEGATIVE) H 09/02/17 18:00 Urine Ketones Negative (NEGATIVE) 09/02/17 18:00 Urine Blood 1+ (NEGATIVE) H 09/02/17 18:00 Urine Nitrite Negative (NEGATIVE) 09/02/17 18:00 Urine Bilirubin Negative (<2.0 mg/dL) 09/02/17 18:00 Urine Urobilinogen Negative mg/dL (0.2-1.0) 09/02/17 18:00 Ur Leukocyte Esterase Trace (NEGATIVE) 09/02/17 18:00 Urine WBC (Auto) 4 /hpf (3-5) 09/02/17 18:00 Urine RBC (Auto) 2 /hpf (0-3) 09/02/17 18:00 Urine RBC >50 /hpf (0-3) 08/29/17 10:52 Urine WBC 3-5 (0-2) 08/29/17 10:52 Ur Epithelial Cells Few /HPF 08/29/17 10:52 Urine Bacteria Rare /hpf (NONE SEEN) 09/02/17 18:00 U Random Total Protein 1044 mg/dl (5-11.9) H 08/29/17 19:11 Ur Random Sodium 45 MMOL/L (28-272) 08/29/17 19:11 Urine Creatinine 64.4 mg/dL (20-370) 08/29/17 19:11 Fluid Other Cells % 09/02/17 16:00 Pleural Fluid Source Pleural 09/04/17 11:45 Pleural Color Red 09/04/17 11:45 Pleural Appearance Cloudy 09/04/17 11:45 Pleural pH 7.7 04/08/18 16:00 Pleural WBC 2722 /mm3 09/04/17 11:45 Pleural RBC 65369 /mm3 09/04/17 11:45 Pleural Neutrophils 48 % 09/04/17 11:45 Pleural Lymphocytes 20 % 09/04/17 11:45 Pleural Monocytes 9 % 09/04/17 11:45 Pleural Macrophages 18 % 09/04/17 11:45 Pleural Mesothelial 5 % 09/04/17 11:45 Pleural Total Protein 2.900 09/04/17 11:45 Pleural Albumin 1 g/dL 09/04/17 11:45 Pleural LDH 467.89 09/04/17 11:45 Pleural Glucose 70.173 09/04/17 11:45 Pleural Amylase 26.404 09/04/17 11:45 Pleural Triglycerides 78 MG.DL 09/04/17 11:45 Stool Occult Blood Negative (NEGATIVE) 09/06/17 16:15 Random Vancomycin 9.573 ug/ml 08/30/17 06:05 Valproic Acid 32.285 ug/ml (50-100) L 08/30/17 00:45 LISA M-Marlon Not observed g/dL (Not Observed) 08/29/17 20:00 Cold Agglutinins Negative TITER (Neg <1:32) 09/05/17 06:15 GEN Screen Negative (.) 08/29/17 20:00 c-ANCA <1:20 titer (Neg:<1:20) 08/29/17 20:00 Proteinase 3 (PR3) <3.5 U/mL (0.0-3.5) 08/29/17 20:00 p-ANCA <1:20 titer (Neg:<1:20) 08/29/17 20:00 Atypical p-ANCA <1:20 titer (Neg:<1:20) 08/29/17 20:00 Myeloperoxidase Ab <9.0 U/mL (0.0-9.0) 08/29/17 20:00 Double Strand DNA Ab <1 IU/mL (0-9) 08/29/17 20:00 Glomerular Base Memb Ab 3 units (0-20) 08/29/17 20:00 Complement C3 133 mg/dL (82-167) 08/31/17 11:00 Complement C4 31 mg/dL (14-44) 08/31/17 11:00 Hep A IgM Ab Confirm Negative (Negative) 08/29/17 20:00 Hepatitis A Ab Total Negative (Negative) 08/29/17 20:00 Hep Bs Antigen Negative (Negative) 08/29/17 20:00 Hep Bs Antibody Non reactive (.) 08/29/17 20:00 Hep B Core Total Ab Negative (Negative) 08/29/17 20:00 HCV Quantitation Hcv not detected IU/mL (.) 08/29/17 20:00 HCV RNA log copies/mL TNP 08/29/17 20:00 Anti-DNase B (Strep) 106 U/mL (0-120) 09/02/17 05:50 Blood Type O POSITIVE 09/10/17 20:30 Antibody Screen Negative 09/10/17 20:30 Direct Antiglob Test Negative (NEGATIVE) 09/05/17 06:15 Crossmatch See Detail 09/10/17 20:30 cxr 09/10: progressive fluid and infiltrate on left. --> chest tube was adjusted. ecg: sr,prolonged qtc, no ischemic changes echo 08/2017: nl lv/rv, no sig valve path cxr: left eff tele: sinus tach a/p: 22 m hx autism, seizures, possible underlying ckd/htn here with ams, respiratory failure/sepsis, anna requiring HD and hypertensive urgency. Cardiac course complicated by mild troponin elevation and prolonged qtc. anna requiring HD: -renal eval in progress, planned for biopsy -currently getting HD here htn urgency/emergency: -elevated at times -now on nicard gtt. will get po procardia today as well and try to titrate off gtt. - 09/03: no IV access for cardene drip. needs po meds through NG tube --> started norvasc 10, hydral 20 tid. - 09/04 remains htn. Uptitrated hydralazine to 50 tid. This afternoon remains hypertensive. Will add carvedilol 6.25 bid. - 09/05: remains htn. will uptitrate coreg to 12.5 bid. - 09/06: extubated today (no longer with NGT) and made NPO. Was unable to get po meds today. --> remains hypertensive. No longer on sedation --> can get IV labetolol drip. Recommend initiation of labetolol drip. - 09/07: BP improved on labetolol drip. Patient cleared for po meds. Discussed with renal. Will initiate coreg 12.5 mg bid, nifedipine 10 mg po tid. uptitrate regimen as needed in order to wean off labetolol drip. 09/08: BP well controlled this afternoon 130/84mmHg on oral regimen as outlined above. -echo here unremarkable 09/09: BP elevated this AM. Now back on Labetelol gtt. Would recommend increase coreg up to 25mg PO BID and reattempt Labatelol wean. Being managed by renal team. 09/10: BP slowly improving. coreg d/c overnight. Would stop labetolol drip and resume coreg at 25 bid. Would optimize coreg dose prior to adding on clonidine. (stop clonidine). Con't nifedipine. Discussed plan with renal. 09/11-: con't coreg 25 bid, nifedipine. uptitrate hydralazine as needed. abnl ecg: -prolonged qtc, possibly due to anna -qtc improved on repeat ecg. abnormal troponins - likely increased in setting of ANNA. likely demand, no concern for acs. anemia: -chronic, mgm't per primary team respiratory failure s/p intubation 09/02 and extubation 09/06 - with white out of left lung - 09/04 s/p chest tube placement. - eval/mgm't by pmd/critical care team ongoing.
--- NOTE | 2017-09-12 12:35 | PN ---
Progress Note, Physician History of Present Illness: Pt seen and examined at bedside. He is awake and currently getting HD. - Current Medication List Current Medications: Active Medications Acetaminophen (Tylenol -) 650 mg PO Q6H PRN PRN Reason: fever Last Admin: 09/11/17 19:29 Dose: 650 mg Albuterol/Ipratropium (Duoneb -) 1 amp NEB RQID PRN PRN Reason: SHORT OF BREATH/WHEEZING Amino Acids (Prosource No Carb Liquid Pkt) 30 ml NGT DAILY [facility] Last Admin: 09/11/17 09:03 Dose: 30 ml Carvedilol (Coreg -) 25 mg PO BID [facility] Last Admin: 09/12/17 11:31 Dose: 25 mg Chlorhexidine Gluconate (Hibiclens For Decolonization -) 1 applic TP HS [facility] Last Admin: 09/11/17 22:00 Dose: 1 applic Docusate Sodium (Colace Liquid -) 100 mg NGT TID PRN PRN Reason: CONSTIPATION Heparin Sodium (Porcine) (Heparin -) 5,000 unit SQ TID [facility] Hydralazine HCl (Apresoline -) 50 mg PO TID [facility] Last Admin: 09/12/17 05:32 Dose: 50 mg Lacosamide (Vimpat -) 100 mg PO BID [facility] Last Admin: 09/12/17 11:30 Dose: 100 mg Lidocaine/Aluminum/Magnesium/Simeth (Magic Mouthwash *Sjr Formula* -) 5 ml MM Q6HPO [facility] Last Admin: 09/12/17 11:32 Dose: 5 ml Nifedipine (Procardia Xl -) 120 mg PO DAILY [facility] Last Admin: 09/12/17 11:31 Dose: 120 mg - Objective Vital Signs: Vital Signs Temperature 98.6 F 09/12/17 08:00 Pulse Rate 128 H 09/12/17 11:15 Respiratory Rate 20 09/12/17 11:15 Blood Pressure 169/95 09/12/17 11:15 O2 Sat by Pulse Oximetry (%) 96 09/12/17 07:54 Constitutional: Yes: Calm Eyes: Yes: Conjunctiva Clear HENT: Yes: Atraumatic Neck: Yes: Supple Cardiovascular: Yes: S1, S2 Respiratory: Yes: Other (chest tube) Gastrointestinal: Yes: Soft Genitourinary: Yes: Incontinence Musculoskeletal: Yes: WNL Edema: LUE: Trace, RUE: Trace Neurological: Yes: Pre-Existing Deficit Labs: CBC, BMP 09/12/17 06:05 09/12/17 06:05 INR, PTT INR 1.16 (0.82-1.09) H 09/10/17 08:25 Fibrinogen 579.0 mg/dL (238-498) H 08/29/17 20:00 - ....Imaging Chest X-ray: Report Reviewed Problem List - Problems (1) Acute renal failure Code(s): N17.9 - ACUTE KIDNEY FAILURE, UNSPECIFIED Qualifiers: Acute renal failure type: unspecified Qualified Code(s): N17.9 - Acute kidney failure, unspecified (2) Anemia Code(s): D64.9 - ANEMIA, UNSPECIFIED (3) Hyperkalemia Code(s): E87.5 - HYPERKALEMIA (4) Hypertensive urgency Code(s): I16.0 - HYPERTENSIVE URGENCY (5) Sepsis Code(s): A41.9 - SEPSIS, UNSPECIFIED ORGANISM Qualifiers: Sepsis type: sepsis due to unspecified organism Qualified Code(s): A41.9 - Sepsis, unspecified organism (6) Thrombocytopenia Code(s): D69.6 - THROMBOCYTOPENIA, UNSPECIFIED (7) Seizure Code(s): R56.9 - UNSPECIFIED CONVULSIONS Assessment/Plan Current Medications Generic Name Dose Route Start Last Admin Trade Name Freq PRN Reason Stop Dose Admin Acetaminophen 650 mg 09/01/17 17:04 09/11/17 19:29 Tylenol - PO 650 mg Q6H PRN Administration fever Albuterol/Ipratropium 1 amp 09/12/17 11:44 Duoneb - NEB RQID PRN SHORT OF BREATH/WHEEZING Amino Acids 30 ml 09/03/17 16:15 09/11/17 09:03 Prosource No Carb Liquid Pkt NGT [address] Administration Carvedilol 25 mg 09/10/17 15:00 09/12/17 11:31 Coreg - PO [address] Administration Chlorhexidine Gluconate 1 applic 08/29/17 22:00 09/11/17 22:00 Hibiclens For Decolonization - TP [address] Administration Docusate Sodium 100 mg 09/04/17 10:00 Colace Liquid - NGT TID PRN CONSTIPATION Heparin Sodium (Porcine) 5,000 unit 09/12/17 14:00 Heparin - SQ TID LANE Hydralazine HCl 50 mg 09/11/17 12:00 09/12/17 05:32 Apresoline - PO [address] Administration Lacosamide 100 mg 09/10/17 22:00 09/12/17 11:30 Vimpat - PO [address] Administration Lidocaine/Aluminum/Magnesium/Simeth 5 ml 09/12/17 00:00 09/12/17 11:32 Magic Mouthwash *Sjr Formula* - MM [address] Administration Nifedipine 120 mg 09/12/17 10:00 09/12/17 11:31 Procardia Xl - PO [address] Administration Impression 1. ANNA 2. HTN urgency/emergency 3. hyperkalemia 4. hyponatremia 5. autism 6. hx of seizure 7. anemia 8. CKD 9. lactic acidosis improving 10. thrombocytopenia 11. hyperkalemia 12. pleural effusion 13. acute resp failure requiring intubation Plan - HD today - cts follow up - will hold off biopsy until he is more stable, discussed with IR - will need to stabilize pulmonary status - follow cultures - discussed with family - give am meds now and check bp Dr Velasquez
--- NOTE | 2017-09-12 13:07 | PN ---
Teaching Attending Note Name of Resident: Rashel Iniguez ATTENDING PHYSICIAN STATEMENT I saw and evaluated the patient. I reviewed the resident's note and discussed the case with the resident. I agree with the resident's findings and plan as documented. SUBJECTIVE: Pt seen and examined in the ICU. Intermittent fevers, CT chest showing loculated posterior pocket of fluid. Chest tube not draining. Dialyzed this AM. OBJECTIVE: Last Vital Signs Temp Pulse Resp BP Pulse Ox 98.6 F 128 H 20 169/95 96 09/12/17 08:00 09/12/17 11:15 09/12/17 11:15 09/12/17 11:15 09/12/17 07:54 Intake & Output 09/09/17 09/10/17 09/11/17 09/12/17 23:59 23:59 23:59 23:59 Intake Total 1860 645 960 120 Output Total 325 150 0 10 Balance 1535 495 960 110 Weight 81.7 kg 82.962 kg 82.962 kg Gen: NAD at rest Heart: tachycardic, regularl Lung: decreased breath sounds left base Abd: soft, nontender Ext: + edema CBC, BMP 09/12/17 06:05 09/12/17 06:05 Active Medications Acetaminophen (Tylenol -) 650 mg PO Q6H PRN PRN Reason: fever Last Admin: 09/11/17 19:29 Dose: 650 mg Albuterol/Ipratropium (Duoneb -) 1 amp NEB RQID PRN PRN Reason: SHORT OF BREATH/WHEEZING Amino Acids (Prosource No Carb Liquid Pkt) 30 ml NGT DAILY [facility] Last Admin: 09/11/17 09:03 Dose: 30 ml Carvedilol (Coreg -) 25 mg PO BID [facility] Last Admin: 09/12/17 11:31 Dose: 25 mg Chlorhexidine Gluconate (Hibiclens For Decolonization -) 1 applic TP HS [facility] Last Admin: 09/11/17 22:00 Dose: 1 applic Docusate Sodium (Colace Liquid -) 100 mg NGT TID PRN PRN Reason: CONSTIPATION Heparin Sodium (Porcine) (Heparin -) 5,000 unit SQ TID [facility] Hydralazine HCl (Apresoline -) 50 mg PO TID [facility] Last Admin: 09/12/17 05:32 Dose: 50 mg Lacosamide (Vimpat -) 100 mg PO BID [facility] Last Admin: 09/12/17 11:30 Dose: 100 mg Lidocaine/Aluminum/Magnesium/Simeth (Magic Mouthwash *Sjr Formula* -) 5 ml MM Q6HPO [facility] Last Admin: 09/12/17 11:32 Dose: 5 ml Nifedipine (Procardia Xl -) 120 mg PO DAILY [facility] Last Admin: 09/12/17 11:31 Dose: 120 mg ASSESSMENT AND PLAN: Hypertensive Urgency Acute Kidney Injury requiring HD Acute Hypoxic Respiratory Failure Pneumonia Loculated Pleural Effusion Hyponatremia Severe Sepsis Lactic Acidosis Thrombocytopenia improved Anemia Autism - continue antibiotics - for IR guided pigtail placement - HD per renal with ultrafiltration - monitor H/H - transfuse PRBC with HD as needed - monitor urine output, creatinine - renal biopsy when stable - BP control - taper Fio2 to keep Spo2 >90% - PO as tolerated - DVT/GI prophylaxis - continue ICU monitoring critical care time spent in reviewing chart, evaluating patient and formulating plan 35 min
[2017-09-12] MEDS: HEPARIN NA (PORCINE) 5,000 UNITS/ML 1ML VIAL SQ SCH ×2 (15:55→21:34)
--- NOTE | 2017-09-12 16:57 | PN ---
Progress Note, VISUAL MERCHANDISING SPECIALIST - Note Progress Note: Pt out of room. Unable to follow up at this time. Chart review indicates pt is consuming approximately 25% puree and thicken liquids. VISUAL MERCHANDISING SPECIALIST to follow up and revise diet as needed.
[2017-09-12] MEDS: ALBUTEROL SO4 2.5/IPRATROPIUM 0.5 INH SOL 3 ML VIAL.NEB. NEB PRN (20:55)
[2017-09-12] MEDS: CHLORHEXIDINE GLUCONATE 4% CLEANSER FOR DECOLONIZATION TP SCH (21:35)
[2017-09-13] MEDS: MAG HYDROX/ALH/SMC/DPHA/LIDO 240 ML MOUTHWASH MM SCH ×3 (00:36→14:29)
[2017-09-13] MEDS: hydrALAZINE HCL 50 MG TABLET (FP) PO SCH ×3 (05:48→22:19)
[2017-09-13] MEDS: HEPARIN NA (PORCINE) 5,000 UNITS/ML 1ML VIAL SQ SCH ×3 (05:48→22:18)
[2017-09-13] MEDS ORDERED: PT OWN MED DRAWER 7, Y5N ONE ×2 (06:34→14:24)
[2017-09-13 06:47] LABS: BASO % 0.5 % (0-2.0); EOS % 2.8 % (0-4.5); HEMATOCRIT 29.1 % (35.4-49); LYMPH % 22.4 % (8-40); MCH 29.4 pg (25.7-33.7); MCHC 34.2 g/dl (32.0-35.9); MEAN CELL VOLUME 85.9 fl (80-96); MEAN PLT VOLUME 7.1 fl (7.5-11.1); MONO % 5.6 % (3.8-10.2); NEUT % 68.7 % (42.8-82.8); PLATELET COUNT 467 K/MM3 (134-434); RBC 3.39 M/mm3 (4.00-5.60); RDW 15.5 % (11.9-15.9)
--- NOTE | 2017-09-13 07:16 | PN ---
Progress Note, Physician Chief Complaint: ID New chest placed No fevers today and beyond dose of Vanco given 2 days ago on no antibiotics - Current Medication List Current Medications: Active Medications Acetaminophen (Tylenol -) 650 mg PO Q6H PRN PRN Reason: fever Last Admin: 09/11/17 19:29 Dose: 650 mg Albuterol/Ipratropium (Duoneb -) 1 amp NEB RQID PRN PRN Reason: SHORT OF BREATH/WHEEZING Last Admin: 09/12/17 20:55 Dose: 1 amp Amino Acids (Prosource No Carb Liquid Pkt) 30 ml NGT DAILY [facility] Last Admin: 09/12/17 10:00 Dose: Not Given Carvedilol (Coreg -) 25 mg PO BID [facility] Last Admin: 09/12/17 21:35 Dose: 25 mg Chlorhexidine Gluconate (Hibiclens For Decolonization -) 1 applic TP HS [facility] Last Admin: 09/12/17 21:35 Dose: 1 applic Docusate Sodium (Colace Liquid -) 100 mg NGT TID PRN PRN Reason: CONSTIPATION Heparin Sodium (Porcine) (Heparin -) 5,000 unit SQ TID [facility] Last Admin: 09/13/17 05:48 Dose: 5,000 unit Hydralazine HCl (Apresoline -) 50 mg PO TID [facility] Last Admin: 09/13/17 05:48 Dose: 50 mg Lacosamide (Vimpat -) 100 mg PO BID [facility] Last Admin: 09/12/17 21:35 Dose: 100 mg Lidocaine/Aluminum/Magnesium/Simeth (Magic Mouthwash *Sjr Formula* -) 5 ml MM Q6HPO [facility] Last Admin: 09/13/17 05:48 Dose: 5 ml Nifedipine (Procardia Xl -) 120 mg PO DAILY [facility] Last Admin: 09/12/17 11:31 Dose: 120 mg - Objective Vital Signs: Vital Signs Temperature 98.8 F 09/13/17 06:00 Pulse Rate 121 H 09/13/17 06:00 Respiratory Rate 20 09/13/17 06:00 Blood Pressure 168/110 09/13/17 06:00 O2 Sat by Pulse Oximetry (%) 96 09/12/17 22:00 Constitutional: Yes: Well Nourished, No Distress HENT: Yes: WNL, Atraumatic Neck: Yes: WNL, Supple Cardiovascular: Yes: Regular Rate and Rhythm, Tachycardia, S1, S2 Respiratory: Yes: WNL, Regular, CTA Bilaterally Gastrointestinal: Yes: WNL, Normal Bowel Sounds, Soft. No: Tenderness, Tenderness, Rebound Edema: Yes Labs: CBC, BMP 09/13/17 06:20 INR, PTT INR 1.16 (0.82-1.09) H 09/10/17 08:25 Fibrinogen 579.0 mg/dL (238-498) H 08/29/17 20:00 Problem List - Problems (1) Acute renal failure Code(s): N17.9 - ACUTE KIDNEY FAILURE, UNSPECIFIED Qualifiers: Acute renal failure type: unspecified Qualified Code(s): N17.9 - Acute kidney failure, unspecified (2) Hypertensive urgency Code(s): I16.0 - HYPERTENSIVE URGENCY (3) Sepsis Code(s): A41.9 - SEPSIS, UNSPECIFIED ORGANISM Qualifiers: Sepsis type: sepsis due to unspecified organism Qualified Code(s): A41.9 - Sepsis, unspecified organism Assessment/Plan Microbiology 09/11/17 13:15 Blood - Peripheral Venous Blood Culture - Preliminary NO GROWTH OBTAINED AFTER 24 HOURS, INCUBATION TO CONTINUE FOR 4 DAYS. 09/11/17 12:44 Blood - Peripheral Venous Blood Culture - Preliminary NO GROWTH OBTAINED AFTER 24 HOURS, INCUBATION TO CONTINUE FOR 4 DAYS. Laboratory Tests 08/31/17 09/12/17 09/13/17 05:40 06:05 06:20 WBC 14.0 H Hgb 10.0 L Hct 29.1 L Plt Count 467 H Total Bilirubin 0.2 D AST 18 D C-Reactive Protein 12.9 H Assessment Large left pleural effusion Chest tube Intermittent fever but afebrile now neg cultures Leukocytosis persistant Acute renal failure on dialysis Hypertensive emergency on admission Plan Observe off antibiotic Would get thoracic to reevaluate as chest tube does not seem to be draining based on chest xray today
[2017-09-13 07:45] LABS: ALBUMIN 1.9 g/dl (3.4-5.0); BLOOD UREA NITROGEN 43 mg/dL (7-18); CHLORIDE 100 mmol/L (98-107); GLUCOSE,RANDOM 88 mg/dL (74-106); PHOSPHOROUS 6.2 mg/dL (2.5-4.9); POTASSIUM 5.4 mmol/L (3.5-5.1); SGOT/AST 19 U/L (15-37); SODIUM 140 mmol/L (136-145)
[2017-09-13 07:58] LABS: ALK PHOS 70 U/L (45-117); ANION GAP 10 (8-16); BILIRUBIN,TOTAL 0.3 mg/dL (0.2-1.0); CALCIUM 8.7 mg/dL (8.5-10.1); CO2 30 mmol/L (21-32); MAGNESIUM 2.3 mg/dL (1.8-2.4); SGPT/ALT 15 U/L (12-78); TOT PROT 5.9 g/dl (6.4-8.2)
[2017-09-13 08:17] LABS: CREATININE 8.5 mg/dL (0.7-1.3)
--- NOTE | 2017-09-13 09:02 | PN ---
Physical Exam: SUBJECTIVE: Patient seen and examined Pt received new chest tube yesterday by IR. tube not draining well. Pt afebrile. OBJECTIVE: Vital Signs Period Temp Pulse Resp BP Sys/Mora Pulse Ox Last 24 Hr 98.5 F-99.5 F 107-129 17-24 128-183/64-115 96-96 GENERAL: young male with autism, lying in bed, in NAD HEENT: PEARRLA, EOMI LUNGS: decreased left-sided lung sounds, new chest tube in place on left HEART: tachycardia, regular rhythm, no murmurs ABDOMEN: soft, NT, ND EXTREMITIES: 2+ pulses, warm, well-perfused, no edema in all 4 extremities NEUROLOGICAL: EOMI, PEARRLA, unresponsive to commands Laboratory Results - last 24 hr 09/13/17 09/13/17 06:20 06:20 WBC 14.0 H RBC 3.39 L Hgb 10.0 L Hct 29.1 L MCV 85.9 MCH 29.4 MCHC 34.2 RDW 15.5 Plt Count 467 H MPV 7.1 L Neutrophils % 68.7 Lymphocytes % 22.4 D Monocytes % 5.6 Eosinophils % 2.8 Basophils % 0.5 Sodium 140 Potassium 5.4 H Chloride 100 Carbon Dioxide 30 Anion Gap 10 BUN 43 H Creatinine 8.5 H* Creat Clearance w eGFR 7.84 Random Glucose 88 Calcium 8.7 Phosphorus 6.2 H Magnesium 2.3 Total Bilirubin 0.3 D AST 19 ALT 15 Alkaline Phosphatase 70 Total Protein 5.9 L Albumin 1.9 L Active Medications Generic Name Dose Route Start Last Admin Trade Name Freq PRN Reason Stop Dose Admin Acetaminophen 650 mg 09/01/17 17:04 09/11/17 19:29 Tylenol - PO 650 mg Q6H PRN Administration fever Albuterol/Ipratropium 1 amp 09/12/17 11:44 09/12/17 20:55 Duoneb - NEB 1 amp RQID PRN Administration SHORT OF BREATH/WHEEZING Amino Acids 30 ml 09/03/17 16:15 09/12/17 10:00 Prosource No Carb Liquid Pkt NGT Not Given DAILY LANE Carvedilol 25 mg 09/10/17 15:00 09/12/17 21:35 Coreg - PO [address] Administration Chlorhexidine Gluconate 1 applic 08/29/17 22:00 09/12/17 21:35 Hibiclens For Decolonization - TP [address] Administration Docusate Sodium 100 mg 09/04/17 10:00 Colace Liquid - NGT TID PRN CONSTIPATION Heparin Sodium (Porcine) 5,000 unit 09/12/17 14:00 09/13/17 05:48 Heparin - SQ 5,[address] Administration Hydralazine HCl 50 mg 09/11/17 12:00 09/13/17 05:48 Apresoline - PO [address] Administration Lacosamide 100 mg 09/10/17 22:00 09/12/17 21:35 Vimpat - PO [address] Administration Lidocaine/Aluminum/Magnesium/Simeth 5 ml 09/12/17 00:00 09/13/17 05:48 Magic Mouthwash *Sjr Formula* - MM [address] Administration Multivit/Ca Carb/B Cmplx/FA/Prenat 1 tablet 09/13/17 10:00 Nephro-Claudia - PO DAILY LANE Nifedipine 120 mg 09/12/17 10:00 09/12/17 11:31 Procardia Xl - PO [address] Administration ASSESSMENT/PLAN: 22M w/ hx of autism and seizure disorder who presented with severe HTN, anemia, thrombocytopenia, leukocytosis, hyperkalemia, and ANNA, admitted to ICU. Pt is s/ p PRBCs, platelets, FFP, dialysis, s/p intubation on 09/02, s/p chest tube placement on 09/04, s/p extubation on 09/06, s/p permacath placement and 1 unit of PRBCs on 09/10, s/p new chest tube placement on 09/12 by IR. CV #hypertensive urgency/emergency- unclear etiology, improving -per nephro and cards, continue coreg 25 BID, procardia 120mg daily, and po hydralazine 50mg q8h. If uncontrolled on these 3 meds, can start ACEI, nitrate, or clonidine. -monitor MAPs -goal BP is < 120/80 #troponinemia- likely 2/2 renal failure and demand ischemia from HTN -peaked, no longer trending Resp #acute hypoxic resp failure -pt s/p extubation on 09/06 -CT chest: loculated effusion -s/p new chest tube placement on 09/12, but tube not draining well. IR came by to insert a 2nd chest tube for the loculated effusion, but after ultrasounding the patient, they believed that it would respond better to VATS procedure. Dr. Ivy made aware. surgery to be done on sunday. Hematology #anemia and thrombocytopenia -hematology on board, recs appreciated. -Hgb of 10 this am -platelets wnl ID #sepsis -leukocytosis of 14, tachycardia, afebrile overnight -ID on board, Dr. Moise, recs appreciated. Abx stopped on 09/10. -repeat Bcx: negative x 24 hrs -f/u duplex of extremities Nephro #hyperkalemia and ANNA -nephrology on board, recs appreciated. Renal bx to be done once stable. Per IR , pt can get renal bx if cleared by anesthesia. -pt s/p permacath placement on 09/10 Neuro #seizure disorder -neuro on board, f/u recs. continue po lacosamide GI #diarrhea- resolved FEN/ppx -no IVF -hyperphosphatemia -dysphagia puree -no GI ppx indicated -heparin 5000U TID Case discussed with attending, Dr. Isidro. -Rashel Iniguez MD PGY1 ICU Team Visit type - Emergency Visit Emergency Visit: Yes ED Registration Date: 08/29/17 Care time: The patient presented to the Emergency Department on the above date and was hospitalized for further evaluation of their emergent condition. - New Patient This patient is new to me today: No - Critical Care Critical Care patient: Yes Total Critical Care Time (in minutes): 37 Critical Care Statement: The care of this patient involved high complexity decision making to prevent further life threatening deterioration of the patient 's condition and/or to evaluate & treat vital organ system(s) failure or risk of failure.
[2017-09-13] MEDS: LACOSAMIDE 50 MG TABLET PO SCH ×2 (09:29→22:19)
[2017-09-13] MEDS: VITAMIN B COMP W-C 1 EA TABLET PO SCH (09:29)
[2017-09-13] MEDS: NIFEdipine E.R 60 MG TABLET (UD) PO SCH (09:29)
[2017-09-13] MEDS: CARVEDILOL 25 MG TABLET (FP) PO SCH ×2 (09:30→22:19)
[2017-09-13] MEDS: AMINO ACIDS/PROTEIN HYDROLYS 30 ML LIQUID.PKT NGT SCH (09:30)
--- NOTE | 2017-09-13 10:58 | PN ---
Teaching Attending Note Name of Resident: Rashel Iniguez ATTENDING PHYSICIAN STATEMENT I saw and evaluated the patient. I reviewed the resident's note and discussed the case with the resident. I agree with the resident's findings and plan as documented. SUBJECTIVE: Patient seen and examined in the ICU. Awake and alert. No acute events overnight. CT output noted CXR: No gross change in large left effusion OBJECTIVE: Intake & Output 09/10/17 09/11/17 09/12/17 09/13/17 23:59 23:59 23:59 23:59 Intake Total 645 960 590 120 Output Total 150 0 40 17 Balance 495 960 550 103 Weight 182 lb 14.4 oz 182 lb 14.4 oz 185 lb 11.2 oz Last Vital Signs Temp Pulse Resp BP Pulse Ox 98.8 F 124 H 22 174/116 96 09/13/17 06:00 09/13/17 09:45 09/13/17 09:45 09/13/17 09:45 09/12/17 22:00 Active Medications Acetaminophen (Tylenol -) 650 mg PO Q6H PRN PRN Reason: fever Last Admin: 09/11/17 19:29 Dose: 650 mg Albuterol/Ipratropium (Duoneb -) 1 amp NEB RQID PRN PRN Reason: SHORT OF BREATH/WHEEZING Last Admin: 09/12/17 20:55 Dose: 1 amp Amino Acids (Prosource No Carb Liquid Pkt) 30 ml NGT DAILY [facility] Last Admin: 09/13/17 09:30 Dose: 30 ml Carvedilol (Coreg -) 25 mg PO BID [facility] Last Admin: 09/13/17 09:30 Dose: 25 mg Chlorhexidine Gluconate (Hibiclens For Decolonization -) 1 applic TP HS [facility] Last Admin: 09/12/17 21:35 Dose: 1 applic Docusate Sodium (Colace Liquid -) 100 mg NGT TID PRN PRN Reason: CONSTIPATION Heparin Sodium (Porcine) (Heparin -) 5,000 unit SQ TID [facility] Last Admin: 09/13/17 05:48 Dose: 5,000 unit Hydralazine HCl (Apresoline -) 50 mg PO TID [facility] Last Admin: 09/13/17 05:48 Dose: 50 mg Lacosamide (Vimpat -) 100 mg PO BID [facility] Last Admin: 09/13/17 09:29 Dose: 100 mg Lidocaine/Aluminum/Magnesium/Simeth (Magic Mouthwash *Sjr Formula* -) 5 ml MM Q6HPO [facility] Last Admin: 09/13/17 05:48 Dose: 5 ml Multivit/Ca Carb/B Cmplx/FA/Prenat (Nephro-Claudia -) 1 tablet PO DAILY [facility] Last Admin: 09/13/17 09:29 Dose: 1 tablet Nifedipine (Procardia Xl -) 120 mg PO DAILY [facility] Last Admin: 09/13/17 09:29 Dose: 120 mg GENERAL: young male with autism, lying in bed, alert HEENT: PEARRLA, EOMI LUNGS: few rhonchi, left pigtail catheter HEART: tachycardia, regular rhythm, no murmurs ABDOMEN: soft, NT, ND EXTREMITIES: 2+ pulses, warm, well-perfused, 1+ edema in all 4 extremities NEUROLOGICAL: EOMI, PERRLA, unresponsive to commands Laboratory Results - last 24 hr 09/13/17 09/13/17 06:20 06:20 WBC 14.0 H RBC 3.39 L Hgb 10.0 L Hct 29.1 L MCV 85.9 MCH 29.4 MCHC 34.2 RDW 15.5 Plt Count 467 H MPV 7.1 L Neutrophils % 68.7 Lymphocytes % 22.4 D Monocytes % 5.6 Eosinophils % 2.8 Basophils % 0.5 Sodium 140 Potassium 5.4 H Chloride 100 Carbon Dioxide 30 Anion Gap 10 BUN 43 H Creatinine 8.5 H* Creat Clearance w eGFR 7.84 Random Glucose 88 Calcium 8.7 Phosphorus 6.2 H Magnesium 2.3 Total Bilirubin 0.3 D AST 19 ALT 15 Alkaline Phosphatase 70 Total Protein 5.9 L Albumin 1.9 L ASSESSMENT AND PLAN: Hypertensive Urgency Acute Kidney Injury requiring HD Acute Hypoxic Respiratory Failure Pneumonia Loculated Pleural Effusion Hyponatremia Severe Sepsis Lactic Acidosis Thrombocytopenia improved Anemia Autism - IR to change drainage catheter - ABX - monitor H/H - Normal transfusion thresholds - monitor urine output, creatinine - Titrate PO BP meds - Taper IV Labetalol - O2 as needed - PO as tolerated - DVT/GI prophylaxis - continue ICU monitoring Dr Isidro Critical care time spent in reviewing chart, evaluating patient and formulating plan 35 min
--- NOTE | 2017-09-13 11:19 | PN ---
Progress Note (short form) - Note Progress Note: CC: htn urgency S: pt does not communicate well. appears comfortable, no overnight events o: Current Medications Generic Name Dose Route Start Last Admin Trade Name Freq PRN Reason Stop Dose Admin Acetaminophen 650 mg 09/01/17 17:04 09/11/17 19:29 Tylenol - PO 650 mg Q6H PRN Administration fever Albuterol/Ipratropium 1 amp 09/12/17 11:44 09/12/17 20:55 Duoneb - NEB 1 amp RQID PRN Administration SHORT OF BREATH/WHEEZING Amino Acids 30 ml 09/03/17 16:15 09/13/17 09:30 Prosource No Carb Liquid Pkt NGT [address] Administration Carvedilol 25 mg 09/10/17 15:00 09/13/17 09:30 Coreg - PO [address] Administration Chlorhexidine Gluconate 1 applic 08/29/17 22:00 09/12/17 21:35 Hibiclens For Decolonization - TP [address] Administration Docusate Sodium 100 mg 09/04/17 10:00 Colace Liquid - NGT TID PRN CONSTIPATION Heparin Sodium (Porcine) 5,000 unit 09/12/17 14:00 09/13/17 05:48 Heparin - SQ 5,[address] Administration Hydralazine HCl 50 mg 09/11/17 12:00 09/13/17 05:48 Apresoline - PO [address] Administration Lacosamide 100 mg 09/10/17 22:00 09/13/17 09:29 Vimpat - PO [address] Administration Lidocaine/Aluminum/Magnesium/Simeth 5 ml 09/12/17 00:00 09/13/17 05:48 Magic Mouthwash *Sjr Formula* - MM [address] Administration Multivit/Ca Carb/B Cmplx/FA/Prenat 1 tablet 09/13/17 10:00 09/13/17 09:29 Nephro-Claudia - PO [address] Administration Nifedipine 120 mg 09/12/17 10:00 09/13/17 09:29 Procardia Xl - PO [address] Administration Vital Signs Period Temp Pulse Resp BP Sys/Mora Pulse Ox Last 24 Hr 98.5 F-99.5 F 107-128 17-24 128-183/64-116 96-96 nad, calm nad no jvd rrr s1 s2 no mrg dullness at left base, nl effort. + chest tube. no jaundice diaphoresis trace le edema bl abd nd pos bs Laboratory Last Values WBC 14.0 K/mm3 (4.0-10.0) H 09/13/17 06:20 RBC 3.39 M/mm3 (4.00-5.60) L 09/13/17 06:20 Hgb 10.0 GM/dL (11.7-16.9) L 09/13/17 06:20 Hct 29.1 % (35.4-49) L 09/13/17 06:20 MCV 85.9 fl (80-96) 09/13/17 06:20 MCH 29.4 pg (25.7-33.7) 09/13/17 06:20 MCHC 34.2 g/dl (32.0-35.9) 09/13/17 06:20 RDW 15.5 % (11.9-15.9) 09/13/17 06:20 Plt Count 467 K/MM3 (134-434) H 09/13/17 06:20 MPV 7.1 fl (7.5-11.1) L 09/13/17 06:20 Neutrophils % 68.7 % (42.8-82.8) 09/13/17 06:20 Neutrophils % (Manual) 52.4 % (42.8-82.8) 09/06/17 06:20 Band Neutrophils % 0.0 % 09/06/17 06:20 Lymphocytes % 22.4 % (8-40) D 09/13/17 06:20 Lymphocytes % (Manual) 33.3 % (8-40) D 09/06/17 06:20 Monocytes % 5.6 % (3.8-10.2) 09/13/17 06:20 Monocytes % (Manual) 2 % (3.8-10.2) L 09/06/17 06:20 Eosinophils % 2.8 % (0-4.5) 09/13/17 06:20 Eosinophils % (Manual) 11.9 % (0-4.5) H D 09/06/17 06:20 Basophils % 0.5 % (0-2.0) 09/13/17 06:20 Basophils % (Manual) 0.0 % (0-2.0) 09/06/17 06:20 Myelocytes % (Man) 0 % (0-2) D 09/06/17 06:20 Promyelocytes % (Man) 0 % (0-2) 09/06/17 06:20 Blast Cells % (Manual) 0 % (0-0) 09/06/17 06:20 Nucleated RBC % 0 % (0-0) 09/06/17 06:20 Metamyelocytes 0 % (0-2) 09/06/17 06:20 Hypochromia 0 09/05/17 06:15 Platelet Estimate Increased 09/06/17 06:20 Platelet Comment Rare giants plts 08/29/17 10:52 Polychromasia 1+ 09/06/17 06:20 Poikilocytosis 1+ 09/05/17 06:15 Anisocytosis 1+ 09/05/17 06:15 Microcytosis 1+ 09/05/17 06:15 Tear Drop Cells 1+ 08/29/17 10:52 Ovalocytes 1+ 08/29/17 10:52 Fragmented RBCs 1+ 08/29/17 10:52 Schistocytes 2+ 09/06/17 06:20 Morphology Comment See comment 08/29/17 18:00 ESR 96 mm/hr (0-10) H 08/31/17 05:40 Retic Count 3.57 % (0.5-1.5) H 09/05/17 06:15 Haptoglobin 160 mg/dL (34-200) 09/04/17 06:00 PT with INR 13.10 SEC (9.98-11.88) H 09/10/17 08:25 INR 1.16 (0.82-1.09) H 09/10/17 08:25 PTT (Actin FS) 31.1 SECONDS (26.9-34.4) 09/10/17 08:25 Fibrinogen 579.0 mg/dL (238-498) H 08/29/17 20:00 [id number] Activity >100.0 % (>66.8) 08/29/17 23:49 Puncture Site Right radial 09/02/17 22:23 ABG pH 7.46 (7.35-7.45) H 09/02/17 22:23 ABG pCO2 at Pt Temp 38.4 mmHg (35-45) 09/02/17 22:23 ABG pO2 at Pt Temp 64.4 mmHg (80-100) L 09/02/17 22:23 ABG HCO3 26.6 meq/L (22-26) H 09/02/17 22:23 ABG O2 Sat (Measured) 92.9 % (90-98.9) 09/02/17 22:23 ABG O2 Content 8.8 % vol (15-22) L* 09/02/17 22:23 ABG Base Excess 3.0 meq/l (-2-2) H 09/02/17 22:23 Wisam Test Positive 09/02/17 22:23 O2 Delivery Device Vent 09/02/17 22:23 Oxygen Flow Rate 70% 09/02/17 22:23 Vent Rate 16 09/02/17 22:23 Mechanical Rate Yes 09/02/17 22:23 PEEP 5.0 cmH2O 09/02/17 22:23 Pressure Support Vent 400 09/02/17 22:23 Sodium 140 mmol/L (136-145) 09/13/17 06:20 Potassium 5.4 mmol/L (3.5-5.1) H 09/13/17 06:20 Plasma Potassium 4.6 mmol/L (3.5-5.1) 09/13/17 09:52 Chloride 100 mmol/L (98-107) 09/13/17 06:20 Carbon Dioxide 30 mmol/L (21-32) 09/13/17 06:20 Anion Gap 10 (8-16) 09/13/17 06:20 BUN 43 mg/dL (7-18) H 09/13/17 06:20 Creatinine 8.5 mg/dL (0.7-1.3) H* 09/13/17 06:20 Creat Clearance w eGFR 7.84 (>60) 09/13/17 06:20 Random Glucose 88 mg/dL (74-106) 09/13/17 06:20 Lactic Acid 0.7 mmol/L (0.0-2.0) 08/29/17 16:04 Calcium 8.7 mg/dL (8.5-10.1) 09/13/17 06:20 Phosphorus 6.2 mg/dL (2.5-4.9) H 09/13/17 06:20 Magnesium 2.3 mg/dL (1.8-2.4) 09/13/17 06:20 Iron 31 ug/dL (38-169) L 08/29/17 20:00 TIBC 149 ug/dL (250-450) L 08/29/17 20:00 Iron Saturation 21 % (15-55) 08/29/17 20:00 Transferrin 123 mg/dL (200-370) L 08/29/17 20:00 Ferritin 1092.933 ng/ml (16.4-293.9) H 08/29/17 20:00 Total Bilirubin 0.3 mg/dL (0.2-1.0) D 09/13/17 06:20 AST 19 U/L (15-37) 09/13/17 06:20 ALT 15 U/L (12-78) 09/13/17 06:20 Alkaline Phosphatase 70 U/L (45-117) 09/13/17 06:20 LD Total 285 U/L (87-241) H 09/05/17 06:15 Creatine Kinase 373 IU/L (39-308) H 08/29/17 12:37 Creatine Kinase Index 2.5 % (0.0-5.0) 08/29/17 12:37 CK-MB (CK-2) 9.4 ng/mL (0.3-4.0) H 08/29/17 12:37 Troponin I 0.25 ng/ml (0.00-0.05) H 08/31/17 05:40 C-Reactive Protein 12.9 MG/DL (0.00-0.3) H 08/31/17 05:40 Total Protein 5.9 g/dl (6.4-8.2) L 09/13/17 06:20 Total Protein (PEP) 4.2 g/dL (6.0-8.5) L 08/29/17 20:00 Albumin 1.9 g/dl (3.4-5.0) L 09/13/17 06:20 Albumin (PEP) 1.9 gm/dl (2.9-4.4) L 08/29/17 20:00 Globulin 2.3 g/dL (2.2-3.9) 08/29/17 20:00 Albumin/Globulin Ratio 0.8 (0.7-1.7) 08/29/17 20:00 Beta Globulins 0.8 gm/dL (0.7-1.3) 08/29/17 20:00 Lipase 186 U/L (73-393) 08/29/17 10:52 Vitamin B12 331 pg/ml (180-914) 08/30/17 06:05 TSH 5.20 uIU/ml (0.358-3.74) H 08/29/17 12:37 Free T4 0.73 ng/dl (0.76-1.16) L 08/30/17 06:05 Urine Color Ltyellow 09/02/17 18:00 Urine Appearance Clear 09/02/17 18:00 Urine pH 8.0 (5.0-8.0) 09/02/17 18:00 Ur Specific [place] 1.009 (1.001-1.035) 09/02/17 18:00 Urine Protein 3+ (NEGATIVE) H 09/02/17 18:00 Urine Glucose (UA) 2+ (NEGATIVE) H 09/02/17 18:00 Urine Ketones Negative (NEGATIVE) 09/02/17 18:00 Urine Blood 1+ (NEGATIVE) H 09/02/17 18:00 Urine Nitrite Negative (NEGATIVE) 09/02/17 18:00 Urine Bilirubin Negative (<2.0 mg/dL) 09/02/17 18:00 Urine Urobilinogen Negative mg/dL (0.2-1.0) 09/02/17 18:00 Ur Leukocyte Esterase Trace (NEGATIVE) 09/02/17 18:00 Urine WBC (Auto) 4 /hpf (3-5) 09/02/17 18:00 Urine RBC (Auto) 2 /hpf (0-3) 09/02/17 18:00 Urine RBC >50 /hpf (0-3) 08/29/17 10:52 Urine WBC 3-5 (0-2) 08/29/17 10:52 Ur Epithelial Cells Few /HPF 08/29/17 10:52 Urine Bacteria Rare /hpf (NONE SEEN) 09/02/17 18:00 U Random Total Protein 1044 mg/dl (5-11.9) H 08/29/17 19:11 Ur Random Sodium 45 MMOL/L (28-272) 08/29/17 19:11 Urine Creatinine 64.4 mg/dL (20-370) 08/29/17 19:11 Fluid Other Cells % 09/02/17 16:00 Pleural Fluid Source Pleural 09/04/17 11:45 Pleural Color Red 09/04/17 11:45 Pleural Appearance Cloudy 09/04/17 11:45 Pleural pH 7.7 09/02/17 16:00 Pleural WBC 2722 /mm3 09/04/17 11:45 Pleural RBC 66134 /mm3 09/04/17 11:45 Pleural Neutrophils 48 % 09/04/17 11:45 Pleural Lymphocytes 20 % 09/04/17 11:45 Pleural Monocytes 9 % 09/04/17 11:45 Pleural Macrophages 18 % 09/04/17 11:45 Pleural Mesothelial 5 % 09/04/17 11:45 Pleural Total Protein 2.900 09/04/17 11:45 Pleural Albumin 1 g/dL 09/04/17 11:45 Pleural LDH 467.89 09/04/17 11:45 Pleural Glucose 70.173 09/04/17 11:45 Pleural Amylase 26.404 09/04/17 11:45 Pleural Triglycerides 78 MG.DL 09/04/17 11:45 Stool Occult Blood Negative (NEGATIVE) 09/06/17 16:15 Random Vancomycin 9.573 ug/ml 08/30/17 06:05 Valproic Acid 32.285 ug/ml (50-100) L 08/30/17 00:45 LISA M-Marlon Not observed g/dL (Not Observed) 08/29/17 20:00 Cold Agglutinins Negative TITER (Neg <1:32) 09/05/17 06:15 GEN Screen Negative (.) 08/29/17 20:00 c-ANCA <1:20 titer (Neg:<1:20) 08/29/17 20:00 Proteinase 3 (PR3) <3.5 U/mL (0.0-3.5) 08/29/17 20:00 p-ANCA <1:20 titer (Neg:<1:20) 08/29/17 20:00 Atypical p-ANCA <1:20 titer (Neg:<1:20) 08/29/17 20:00 Myeloperoxidase Ab <9.0 U/mL (0.0-9.0) 08/29/17 20:00 Double Strand DNA Ab <1 IU/mL (0-9) 08/29/17 20:00 Glomerular Base Memb Ab 3 units (0-20) 08/29/17 20:00 Complement C3 133 mg/dL (82-167) 08/31/17 11:00 Complement C4 31 mg/dL (14-44) 08/31/17 11:00 Hep A IgM Ab Confirm Negative (Negative) 08/29/17 20:00 Hepatitis A Ab Total Negative (Negative) 08/29/17 20:00 Hep Bs Antigen Negative (Negative) 08/29/17 20:00 Hep Bs Antibody Non reactive (.) 08/29/17 20:00 Hep B Core Total Ab Negative (Negative) 08/29/17 20:00 HCV Quantitation Hcv not detected IU/mL (.) 08/29/17 20:00 HCV RNA log copies/mL TNP 08/29/17 20:00 Anti-DNase B (Strep) 106 U/mL (0-120) 09/02/17 05:50 Blood Type O POSITIVE 09/10/17 20:30 Antibody Screen Negative 09/10/17 20:30 Direct Antiglob Test Negative (NEGATIVE) 09/05/17 06:15 Crossmatch See Detail 09/10/17 20:30 cxr 09/10: progressive fluid and infiltrate on left. --> chest tube was adjusted. ecg: sr,prolonged qtc, no ischemic changes echo 08/2017: nl lv/rv, no sig valve path cxr: left eff tele: sinus tach a/p: 22 m hx autism, seizures, possible underlying ckd/htn here with ams, respiratory failure/sepsis, anna requiring HD and hypertensive urgency. Cardiac course complicated by mild troponin elevation and prolonged qtc. anna requiring HD: -renal eval in progress, planned for biopsy -currently getting HD here htn urgency/emergency: -elevated at times -now on nicard gtt. will get po procardia today as well and try to titrate off gtt. - 09/03: no IV access for cardene drip. needs po meds through NG tube --> started norvasc 10, hydral 20 tid. - 09/04 remains htn. Uptitrated hydralazine to 50 tid. This afternoon remains hypertensive. Will add carvedilol 6.25 bid. - 09/05: remains htn. will uptitrate coreg to 12.5 bid. - 09/06: extubated today (no longer with NGT) and made NPO. Was unable to get po meds today. --> remains hypertensive. No longer on sedation --> can get IV labetolol drip. Recommend initiation of labetolol drip. - 09/07: BP improved on labetolol drip. Patient cleared for po meds. Discussed with renal. Will initiate coreg 12.5 mg bid, nifedipine 10 mg po tid. uptitrate regimen as needed in order to wean off labetolol drip. 09/08: BP well controlled this afternoon 130/84mmHg on oral regimen as outlined above. -echo here unremarkable 09/09: BP elevated this AM. Now back on Labetelol gtt. Would recommend increase coreg up to 25mg PO BID and reattempt Labatelol wean. Being managed by renal team. 09/10: BP slowly improving. coreg d/c overnight. Would stop labetolol drip and resume coreg at 25 bid. Would optimize coreg dose prior to adding on clonidine. (stop clonidine). Con't nifedipine. Discussed plan with renal. 09/11-: con't coreg 25 bid, nifedipine. uptitrate hydralazine as needed. pt often agitated which is likely contributing to high bp at times. abnormal troponins - likely increased in setting of ANNA. likely demand, no concern for acs. anemia: -chronic, mgm't per primary team respiratory failure s/p intubation 09/02 and extubation 09/06 - with white out of left lung - 09/04 s/p chest tube placement. - eval/mgm't by pmd/critical care team ongoing.
--- NOTE | 2017-09-13 11:47 | PN ---
Progress Note, Physician History of Present Illness: Pt seen and examined at bedside. He is awake and appears comfortable. Mother is at bedside. - Current Medication List Current Medications: Active Medications Acetaminophen (Tylenol -) 650 mg PO Q6H PRN PRN Reason: fever Last Admin: 09/11/17 19:29 Dose: 650 mg Albuterol/Ipratropium (Duoneb -) 1 amp NEB RQID PRN PRN Reason: SHORT OF BREATH/WHEEZING Last Admin: 09/12/17 20:55 Dose: 1 amp Amino Acids (Prosource No Carb Liquid Pkt) 30 ml NGT DAILY [facility] Last Admin: 09/13/17 09:30 Dose: 30 ml Carvedilol (Coreg -) 25 mg PO BID [facility] Last Admin: 09/13/17 09:30 Dose: 25 mg Chlorhexidine Gluconate (Hibiclens For Decolonization -) 1 applic TP HS [facility] Last Admin: 09/12/17 21:35 Dose: 1 applic Docusate Sodium (Colace Liquid -) 100 mg NGT TID PRN PRN Reason: CONSTIPATION Heparin Sodium (Porcine) (Heparin -) 5,000 unit SQ TID [facility] Last Admin: 09/13/17 05:48 Dose: 5,000 unit Hydralazine HCl (Apresoline -) 50 mg PO TID [facility] Last Admin: 09/13/17 05:48 Dose: 50 mg Lacosamide (Vimpat -) 100 mg PO BID [facility] Last Admin: 09/13/17 09:29 Dose: 100 mg Lidocaine/Aluminum/Magnesium/Simeth (Magic Mouthwash *Sjr Formula* -) 5 ml MM Q6HPO [facility] Last Admin: 09/13/17 05:48 Dose: 5 ml Multivit/Ca Carb/B Cmplx/FA/Prenat (Nephro-Claudia -) 1 tablet PO DAILY [facility] Last Admin: 09/13/17 09:29 Dose: 1 tablet Nifedipine (Procardia Xl -) 120 mg PO DAILY [facility] Last Admin: 09/13/17 09:29 Dose: 120 mg - Objective Vital Signs: Vital Signs Temperature 98.8 F 09/13/17 06:00 Pulse Rate 124 H 09/13/17 09:45 Respiratory Rate 22 09/13/17 09:45 Blood Pressure 174/116 09/13/17 09:45 O2 Sat by Pulse Oximetry (%) 96 09/12/17 22:00 Constitutional: Yes: Calm Eyes: Yes: Conjunctiva Clear HENT: Yes: Atraumatic Neck: Yes: Supple Cardiovascular: Yes: S1, S2 Respiratory: Yes: Other (chest tube) Genitourinary: Yes: Incontinence Musculoskeletal: Yes: WNL Edema: Yes Edema: LLE: 2+, RLE: 2+ Neurological: Yes: Pre-Existing Deficit Labs: CBC, BMP 09/13/17 06:20 09/13/17 06:20 INR, PTT INR 1.16 (0.82-1.09) H 09/10/17 08:25 Fibrinogen 579.0 mg/dL (238-498) H 08/29/17 20:00 - ....Imaging Chest X-ray: Report Reviewed Problem List - Problems (1) Acute renal failure Code(s): N17.9 - ACUTE KIDNEY FAILURE, UNSPECIFIED Qualifiers: Acute renal failure type: unspecified Qualified Code(s): N17.9 - Acute kidney failure, unspecified (2) Anemia Code(s): D64.9 - ANEMIA, UNSPECIFIED (3) Hyperkalemia Code(s): E87.5 - HYPERKALEMIA (4) Hypertensive urgency Code(s): I16.0 - HYPERTENSIVE URGENCY (5) Sepsis Code(s): A41.9 - SEPSIS, UNSPECIFIED ORGANISM Qualifiers: Sepsis type: sepsis due to unspecified organism Qualified Code(s): A41.9 - Sepsis, unspecified organism (6) Thrombocytopenia Code(s): D69.6 - THROMBOCYTOPENIA, UNSPECIFIED (7) Seizure Code(s): R56.9 - UNSPECIFIED CONVULSIONS Assessment/Plan Current Medications Generic Name Dose Route Start Last Admin Trade Name Freq PRN Reason Stop Dose Admin Acetaminophen 650 mg 09/01/17 17:04 09/11/17 19:29 Tylenol - PO 650 mg Q6H PRN Administration fever Albuterol/Ipratropium 1 amp 09/12/17 11:44 09/12/17 20:55 Duoneb - NEB 1 amp RQID PRN Administration SHORT OF BREATH/WHEEZING Amino Acids 30 ml 09/03/17 16:15 09/13/17 09:30 Prosource No Carb Liquid Pkt NGT [address] Administration Carvedilol 25 mg 09/10/17 15:00 09/13/17 09:30 Coreg - PO [address] Administration Chlorhexidine Gluconate 1 applic 08/29/17 22:00 09/12/17 21:35 Hibiclens For Decolonization - TP [address] Administration Docusate Sodium 100 mg 09/04/17 10:00 Colace Liquid - NGT TID PRN CONSTIPATION Heparin Sodium (Porcine) 5,000 unit 09/12/17 14:00 09/13/17 05:48 Heparin - SQ 5,[address] Administration Hydralazine HCl 50 mg 09/11/17 12:00 09/13/17 05:48 Apresoline - PO [address] Administration Lacosamide 100 mg 09/10/17 22:00 09/13/17 09:29 Vimpat - PO [address] Administration Lidocaine/Aluminum/Magnesium/Simeth 5 ml 09/12/17 00:00 09/13/17 05:48 Magic Mouthwash *Sjr Formula* - MM [address] Administration Multivit/Ca Carb/B Cmplx/FA/Prenat 1 tablet 09/13/17 10:00 09/13/17 09:29 Nephro-Claudia - PO [address] Administration Nifedipine 120 mg 09/12/17 10:00 09/13/17 09:29 Procardia Xl - PO [address] Administration Impression 1. ANNA 2. HTN urgency/emergency 3. hyperkalemia 4. hyponatremia 5. autism 6. hx of seizure 7. anemia 8. CKD 9. lactic acidosis improving 10. thrombocytopenia 11. hyperkalemia 12. pleural effusion 13. acute resp failure requiring intubation 14. ESRD Plan - cultures from 09/11 neg - HD in am - monitor bp, has been difficult to get an accurate reading as he fights the machine when it inflates - IR will adjust chest tube today - kidney biopsy once more stable - check bladder scan - discussed with family - follow cultures Dr Velasquez
--- NOTE | 2017-09-13 12:42 | PN ---
Progress Note, [employer] - Note Progress Note: Selected Entries 09/10/17 09/10/17 09/10/17 02:00 06:00 08:00 Breakfast Lunch Temperature 98.8 F 98.5 F 98.5 F 09/10/17 09/10/17 09/11/17 19:00 19:55 03:00 Breakfast Lunch Temperature 97.2 F L 97.8 F 97.4 F L 09/11/17 09/11/17 09/11/17 10:00 10:17 14:08 Breakfast 75% Lunch Temperature 101.2 F H 100.5 F H 09/11/17 09/11/17 09/11/17 14:16 18:00 20:00 Breakfast Lunch 75% Temperature 99.3 F 100.0 F H 09/12/17 09/12/17 09/12/17 02:00 06:00 08:00 Breakfast Lunch Temperature 98.3 F 99.8 F H 98.6 F 09/12/17 09/12/17 09/12/17 13:26 14:00 15:48 Breakfast 50% Lunch Temperature 99 F 98.5 F 09/12/17 09/13/17 09/13/17 19:00 02:00 06:00 Breakfast Lunch Temperature 99.5 F 98.9 F 98.8 F Laboratory Tests 09/11/17 09/12/17 09/13/17 06:02 06:05 06:20 WBC 12.4 H 14.9 H 14.0 H Puree/honey thick liquid initiated. Supplements. Overtly tolerating diet, per nursing. Left chest tube replaced. Continue po diet ordered for now. MBS would be beneficial to upgrade diet, once medically improved. Tolerating diet with good appetite, per mother/staff.
--- NOTE | 2017-09-13 13:53 | PN ---
Progress Note (short form) - Note Progress Note: Thoracic Surgery: Events noted. Plan for VATS Sunday if family agreeable. Get type and screen this . NPO Sunday night. Will likely stay intubated for at least a few hours postoperatively, or overnight.
--- NOTE | 2017-09-13 14:20 | PN ---
Physical Exam: SUBJECTIVE: Patient seen and examined in ICU. Per mom at bedside, is fighting the blood pressure cuff during readings. Otherwise no new events OBJECTIVE: Vital Signs Period Temp Pulse Resp BP Sys/Mora Pulse Ox Last 24 Hr 98.7 F-99.5 F 107-124 17-22 122-183/64-117 96-96 PE Neuro: awake, alert, follows commands , Pulm: diminished + NC, L sided chest tube CV: s1 s2 tachycardia Abd: s nt nd +bs Ext: +2 pitting pedal edema, + 2 b/l UE Access: RCW permacath Laboratory Results - last 24 hr 09/13/17 09/13/17 09/13/17 06:20 06:20 09:52 WBC 14.0 H RBC 3.39 L Hgb 10.0 L Hct 29.1 L MCV 85.9 MCH 29.4 MCHC 34.2 RDW 15.5 Plt Count 467 H MPV 7.1 L Neutrophils % 68.7 Lymphocytes % 22.4 D Monocytes % 5.6 Eosinophils % 2.8 Basophils % 0.5 Sodium 140 Potassium 5.4 H Plasma Potassium 4.6 Chloride 100 Carbon Dioxide 30 Anion Gap 10 BUN 43 H Creatinine 8.5 H* Creat Clearance w eGFR 7.84 Random Glucose 88 Calcium 8.7 Phosphorus 6.2 H Magnesium 2.3 Total Bilirubin 0.3 D AST 19 ALT 15 Alkaline Phosphatase 70 Total Protein 5.9 L Albumin 1.9 L Active Medications Generic Name Dose Route Start Last Admin Trade Name Freq PRN Reason Stop Dose Admin Acetaminophen 650 mg 09/01/17 17:04 09/11/17 19:29 Tylenol - PO 650 mg Q6H PRN Administration fever Albuterol/Ipratropium 1 amp 09/12/17 11:44 09/12/17 20:55 Duoneb - NEB 1 amp RQID PRN Administration SHORT OF BREATH/WHEEZING Amino Acids 30 ml 09/03/17 16:15 09/13/17 09:30 Prosource No Carb Liquid Pkt NGT [address] Administration Carvedilol 25 mg 09/10/17 15:00 09/13/17 09:30 Coreg - PO [address] Administration Chlorhexidine Gluconate 1 applic 08/29/17 22:00 09/12/17 21:35 Hibiclens For Decolonization - TP [address] Administration Docusate Sodium 100 mg 09/04/17 10:00 Colace Liquid - NGT TID PRN CONSTIPATION Epoetin Mir 4,000 unit 09/14/17 11:47 Epogen - IVPUSH 09/14/17 11:48 ONCE ONE Heparin Sodium (Porcine) 5,000 unit 09/12/17 14:00 09/13/17 05:48 Heparin - SQ 5,[address] Administration Hydralazine HCl 50 mg 09/11/17 12:00 09/13/17 05:48 Apresoline - PO [address] Administration Sodium Chloride 250 mls @ 3,000 mls/hr 09/13/17 11:47 Normal Saline - IV 09/14/17 11:47 PRN PRN Hypotension during Dialysis Lacosamide 100 mg 09/10/17 22:00 09/13/17 09:29 Vimpat - PO [address] Administration Lidocaine/Aluminum/Magnesium/Simeth 5 ml 09/12/17 00:00 09/13/17 05:48 Magic Mouthwash *Sjr Formula* - MM [address] Administration Multivit/Ca Carb/B Cmplx/FA/Prenat 1 tablet 09/13/17 10:00 09/13/17 09:29 Nephro-Claudia - PO [address] Administration Nifedipine 120 mg 09/12/17 10:00 09/13/17 09:29 Procardia Xl - PO [address] Administration Microbiology 09/11/17 13:15 Blood Culture - Preliminary Blood - Peripheral Venous NO GROWTH OBTAINED AFTER 48 HOURS, INCUBATION TO CONTINUE FOR 3 DAYS. 09/11/17 12:44 Blood Culture - Preliminary Blood - Peripheral Venous NO GROWTH OBTAINED AFTER 48 HOURS, INCUBATION TO CONTINUE FOR 3 DAYS. 09/05/17 23:00 Shiga Toxin Test - Final Stool Assessment: 22 year old male with PMH significant for HTN, autism, and epilepsy admitted for pneumonia, ANNA, hypertensive emergency. Hospital course complicated by acute respiratory failure, requiring intubation and emergent HD, now with permath placed on 09/10, extubated3 08/09. Plan: 1. Left pleural effusion with loculation - s/p thoracentesis 09/02 - s/p pigtail 09/04 - For VATS procedure Sunday per family consent - Type and screen Sunday night/NPO 2. Severe sepsis secondary to pneumonia, fevers - Atalectasis vs secondary infection - Afebrile off abx, continue as such - Repeat cx no growth - s/p 10 days zosyn 3. ANNA on HD - HD tomorrow, plasma K wnl - Give HTN meds prior to HD, do not hold - Biopsy planned 4. Severe, refractory hypertension - Continue nifedipine, carvedilol; hydralazine started 5. Acute hypoxic respiratory failure - Resolved 6. Epilepsy - Continue Vimpat 7. DVT prophylaxis: SCDs Dispo: continues to require ICU level care. Full code. Visit type - Emergency Visit Emergency Visit: Yes ED Registration Date: 08/29/17 Care time: The patient presented to the Emergency Department on the above date and was hospitalized for further evaluation of their emergent condition. - New Patient This patient is new to me today: No - Critical Care Critical Care patient: No
[2017-09-13] MEDS: ACETAMINOPHEN 325 MG TABLET (FP) PO PRN (22:19)
[2017-09-13] MEDS: CHLORHEXIDINE GLUCONATE 4% CLEANSER FOR DECOLONIZATION TP SCH (22:20)
[2017-09-14] MEDS: MAG HYDROX/ALH/SMC/DPHA/LIDO 240 ML MOUTHWASH MM SCH ×3 (00:55→12:00)
[2017-09-14] MEDS: HEPARIN NA (PORCINE) 5,000 UNITS/ML 1ML VIAL SQ SCH ×3 (05:57→22:13)
[2017-09-14] MEDS: hydrALAZINE HCL 50 MG TABLET (FP) PO SCH ×3 (05:58→22:12)
[2017-09-14] MEDS ORDERED: SODIUM CHLORIDE 250 ML IV PRN (06:17)
[2017-09-14 06:20] LABS: BASO % 0.4 % (0-2.0); EOS % 3.3 % (0-4.5); HEMATOCRIT 26.2 % (35.4-49); HEMOGLOBIN 8.8 GM/dL (11.7-16.9); LYMPH % 23.8 % (8-40); MCH 29.4 pg (25.7-33.7); MCHC 33.7 g/dl (32.0-35.9); MEAN CELL VOLUME 87.4 fl (80-96); MEAN PLT VOLUME 7.6 fl (7.5-11.1); MONO % 5.8 % (3.8-10.2); NEUT % 66.7 % (42.8-82.8); PLATELET COUNT 439 K/MM3 (134-434); RDW 15.9 % (11.9-15.9); WHITE BLOOD COUNT 12.2 K/mm3 (4.0-10.0)
[2017-09-14 06:51] LABS: ALBUMIN 1.8 g/dl (3.4-5.0); ANION GAP 13 (8-16); BILIRUBIN,TOTAL 0.3 mg/dL (0.2-1.0); BLOOD UREA NITROGEN 67 mg/dL (7-18); CALCIUM 8.7 mg/dL (8.5-10.1); CHLORIDE 99 mmol/L (98-107); CO2 28 mmol/L (21-32); GLUCOSE,RANDOM 82 mg/dL (74-106); MAGNESIUM 2.5 mg/dL (1.8-2.4); PHOSPHOROUS 8.8 mg/dL (2.5-4.9); POTASSIUM 5.7 mmol/L (3.5-5.1); SGOT/AST 16 U/L (15-37); SGPT/ALT 14 U/L (12-78); SODIUM 140 mmol/L (136-145)
--- NOTE | 2017-09-14 07:10 | PN ---
Progress Note, Physician Chief Complaint: ID Dialysis in progress Seen by thoracic and plan for VAT Afebrile off antibiotic at this time - Current Medication List Current Medications: Active Medications Acetaminophen (Tylenol -) 650 mg PO Q6H PRN PRN Reason: fever Last Admin: 09/13/17 22:19 Dose: 650 mg Albuterol/Ipratropium (Duoneb -) 1 amp NEB RQID PRN PRN Reason: SHORT OF BREATH/WHEEZING Last Admin: 09/12/17 20:55 Dose: 1 amp Amino Acids (Prosource No Carb Liquid Pkt) 30 ml NGT DAILY [facility] Last Admin: 09/13/17 09:30 Dose: 30 ml Carvedilol (Coreg -) 25 mg PO BID [facility] Last Admin: 09/13/17 22:19 Dose: 25 mg Chlorhexidine Gluconate (Hibiclens For Decolonization -) 1 applic TP HS [facility] Last Admin: 09/13/17 22:20 Dose: 1 applic Docusate Sodium (Colace Liquid -) 100 mg NGT TID PRN PRN Reason: CONSTIPATION Epoetin Mir (Epogen -) 4,000 unit IVPUSH ONCE ONE Stop: 09/14/17 08:01 Heparin Sodium (Porcine) (Heparin -) 5,000 unit SQ TID [facility] Stop: 09/17/17 00:01 Last Admin: 09/14/17 05:57 Dose: 5,000 unit Hydralazine HCl (Apresoline -) 50 mg PO TID [facility] Last Admin: 09/14/17 05:58 Dose: 50 mg Lacosamide (Vimpat -) 100 mg PO BID [facility] Last Admin: 09/13/17 22:19 Dose: 100 mg Lidocaine/Aluminum/Magnesium/Simeth (Magic Mouthwash *Sjr Formula* -) 5 ml MM Q6HPO [facility] Last Admin: 09/14/17 05:57 Dose: 5 ml Multivit/Ca Carb/B Cmplx/FA/Prenat (Nephro-Claudia -) 1 tablet PO DAILY [facility] Last Admin: 09/13/17 09:29 Dose: 1 tablet Nifedipine (Procardia Xl -) 120 mg PO DAILY [facility] Last Admin: 09/13/17 09:29 Dose: 120 mg - Objective Vital Signs: Vital Signs Temperature 98.6 F 09/14/17 05:00 Pulse Rate 112 H 09/14/17 05:00 Respiratory Rate 18 09/14/17 05:00 Blood Pressure 214/145 09/14/17 05:00 O2 Sat by Pulse Oximetry (%) 97 09/14/17 04:39 Labs: CBC, BMP 09/14/17 05:55 INR, PTT INR 1.16 (0.82-1.09) H 09/10/17 08:25 Fibrinogen 579.0 mg/dL (238-498) H 08/29/17 20:00 Problem List - Problems (1) Acute renal failure Code(s): N17.9 - ACUTE KIDNEY FAILURE, UNSPECIFIED Qualifiers: Acute renal failure type: unspecified Qualified Code(s): N17.9 - Acute kidney failure, unspecified (2) Hypertensive urgency Code(s): I16.0 - HYPERTENSIVE URGENCY (3) Sepsis Code(s): A41.9 - SEPSIS, UNSPECIFIED ORGANISM Qualifiers: Sepsis type: sepsis due to unspecified organism Qualified Code(s): A41.9 - Sepsis, unspecified organism Assessment/Plan Microbiology 09/11/17 13:15 Blood - Peripheral Venous Blood Culture - Preliminary NO GROWTH OBTAINED AFTER 48 HOURS, INCUBATION TO CONTINUE FOR 3 DAYS. 09/11/17 12:44 Blood - Peripheral Venous Blood Culture - Preliminary NO GROWTH OBTAINED AFTER 48 HOURS, INCUBATION TO CONTINUE FOR 3 DAYS. Laboratory Tests 09/14/17 05:55 WBC 12.2 H Hgb 8.8 L D Hct 26.2 L Plt Count 439 H Neutrophils % 66.7 Lymphocytes % 23.8 Monocytes % 5.8 Eosinophils % 3.3 Basophils % 0.4 Assessment Loculated pleural effusion previously on antibiotic No afebrile minimal WBC elevation No sepsis Plan VAT on sunday Pleural fluid cultures at that time NO antibiotics [place] BILLS
[2017-09-14] MEDS ORDERED: EPOETIN ALFA 2,000 UNIT/1 ML VIAL IVPUSH ONE (08:00)
[2017-09-14 08:24] LABS: ALK PHOS 67 U/L (45-117); TOT PROT 5.6 g/dl (6.4-8.2)
[2017-09-14] MEDS: NIFEdipine E.R 60 MG TABLET (UD) PO SCH ×2 (08:28→22:13)
[2017-09-14] MEDS: LACOSAMIDE 50 MG TABLET PO SCH ×3 (08:28→22:13)
[2017-09-14] MEDS: AMINO ACIDS/PROTEIN HYDROLYS 30 ML LIQUID.PKT NGT SCH ×2 (08:29→22:14)
[2017-09-14] MEDS: VITAMIN B COMP W-C 1 EA TABLET PO SCH ×2 (08:29→22:13)
[2017-09-14] MEDS: CARVEDILOL 25 MG TABLET (FP) PO SCH ×3 (08:29→22:12)
[2017-09-14 08:46] LABS: CREATININE 11.2 mg/dL (0.7-1.3)
[2017-09-14] MEDS ORDERED: hydrALAZINE HCL 50 MG TABLET (FP) PO SCH ×4 (09:43→14:00)
--- NOTE | 2017-09-14 10:06 | PN ---
Physical Exam: SUBJECTIVE: Patient seen and examined in ICU. no new event overnight, on HD now. OBJECTIVE: Vital Signs Period Temp Pulse Resp BP Sys/Mora Pulse Ox Last 24 Hr 98.2 F-98.8 F 103-122 18-22 122-223/64-145 97 PE Neuro: awake, alert, follows commands Pulm: diminished + NC, L sided chest tube CV: s1 s2 tachycardia Abd: s nt nd +bs Ext: pedal edema L>R, + 2 b/l UE Access: RCW permacath Laboratory Results - last 24 hr 09/10/17 09/13/17 09/14/17 20:30 09:52 05:55 WBC 12.2 H RBC 3.00 L Hgb 8.8 L D Hct 26.2 L MCV 87.4 MCH 29.4 MCHC 33.7 RDW 15.9 Plt Count 439 H MPV 7.6 Neutrophils % 66.7 Lymphocytes % 23.8 Monocytes % 5.8 Eosinophils % 3.3 Basophils % 0.4 Sodium Potassium Plasma Potassium 4.6 Chloride Carbon Dioxide Anion Gap BUN Creatinine Creat Clearance w eGFR Random Glucose Calcium Phosphorus Magnesium Total Bilirubin AST ALT Alkaline Phosphatase Total Protein Albumin Blood Type O POSITIVE Antibody Screen Negative Crossmatch See Detail 09/14/17 05:55 WBC RBC Hgb Hct MCV MCH MCHC RDW Plt Count MPV Neutrophils % Lymphocytes % Monocytes % Eosinophils % Basophils % Sodium 140 Potassium 5.7 H Plasma Potassium Chloride 99 Carbon Dioxide 28 Anion Gap 13 BUN 67 H D Creatinine 11.2 H* D Creat Clearance w eGFR 5.70 Random Glucose 82 Calcium 8.7 Phosphorus 8.8 H D Magnesium 2.5 H Total Bilirubin 0.3 AST 16 ALT 14 Alkaline Phosphatase 67 Total Protein 5.6 L Albumin 1.8 L Blood Type Antibody Screen Crossmatch Active Medications Generic Name Dose Route Start Last Admin Trade Name Freq PRN Reason Stop Dose Admin Acetaminophen 650 mg 09/01/17 17:04 09/13/17 22:19 Tylenol - PO 650 mg Q6H PRN Administration fever Albuterol/Ipratropium 1 amp 09/12/17 11:44 09/12/17 20:55 Duoneb - NEB 1 amp RQID PRN Administration SHORT OF BREATH/WHEEZING Amino Acids 30 ml 09/03/17 16:15 09/14/17 08:29 Prosource No Carb Liquid Pkt NGT [address] Administration Carvedilol 25 mg 09/10/17 15:00 09/14/17 08:29 Coreg - PO [address] Administration Chlorhexidine Gluconate 1 applic 08/29/17 22:00 09/13/17 22:20 Hibiclens For Decolonization - TP [address] Administration Docusate Sodium 100 mg 09/04/17 10:00 Colace Liquid - NGT TID PRN CONSTIPATION Heparin Sodium (Porcine) 5,000 unit 09/12/17 14:00 09/14/17 05:57 Heparin - SQ 09/17/17 00:01 5,[address] Administration Lacosamide 100 mg 09/10/17 22:00 09/14/17 08:28 Vimpat - PO [address] Administration Lidocaine/Aluminum/Magnesium/Simeth 5 ml 09/12/17 00:00 09/14/17 05:57 Magic Mouthwash *Sjr Formula* - MM [address] Administration Multivit/Ca Carb/B Cmplx/FA/Prenat 1 tablet 09/13/17 10:00 09/14/17 08:29 Nephro-Claudia - PO [address] Administration Nifedipine 120 mg 09/12/17 10:00 09/14/17 08:28 Procardia Xl - PO [address] Administration Microbiology 09/04/17 16:30 Gram Stain - Final Sputum - Endotrachea Suction/Ventilator Sputum Culture - Final 09/11/17 13:15 Blood Culture - Preliminary Blood - Peripheral Venous NO GROWTH OBTAINED AFTER 48 HOURS, INCUBATION TO CONTINUE FOR 3 DAYS. 09/11/17 12:44 Blood Culture - Preliminary Blood - Peripheral Venous NO GROWTH OBTAINED AFTER 48 HOURS, INCUBATION TO CONTINUE FOR 3 DAYS. Assessment: 22 year old male with PMH significant for HTN, autism, and epilepsy admitted for pneumonia, ANNA, hypertensive emergency. Hospital course complicated by acute respiratory failure, requiring intubation and emergent HD, now with permath placed on 09/10, extubated3 08/09. Plan: 1. Left pleural effusion with loculation - s/p thoracentesis 09/02, pigtail 09/04 - For VATS procedure Sunday, family aware - Type and screen Sunday night/NPO 2. Severe sepsis secondary to pneumonia, fevers - Atalectasis vs secondary infection - Afebrile off abx, continue as such - s/p 10 days zosyn 3. ANNA on HD - HD today - Give HTN meds prior to HD, do not hold - Epo with HD - Biopsy planned after VATS 4. Severe, refractory hypertension - Increased hydralazine 100mg TID - Start imdur 30mg daily, uptitrate as needed - Continue nifedipine, carvedilol 5. Acute hypoxic respiratory failure - Resolved 6. Epilepsy - Continue Vimpat 7. DVT prophylaxis: SCDs Dispo: continues to require ICU level care. Full code. Visit type - Emergency Visit Emergency Visit: Yes ED Registration Date: 08/29/17 Care time: The patient presented to the Emergency Department on the above date and was hospitalized for further evaluation of their emergent condition. - New Patient This patient is new to me today: No - Critical Care Critical Care patient: No
--- NOTE | 2017-09-14 10:07 | PN ---
Physical Exam: SUBJECTIVE: Patient seen and examined in the ICU. Pt receiving HD this morning. Pt denies chest pain, sob, abdominal pain, fever, chills, n/v/d/c. No events overnight. OBJECTIVE: Vital Signs Period Temp Pulse Resp BP Sys/Mora Pulse Ox Last 24 Hr 98.2 F-98.8 F 103-122 18-22 122-223/64-145 97 GENERAL: The patient is awake, alert, in no acute distress, with parent at bedside. LUNGS: Breath sounds equal, clear to auscultation bilaterally, no wheezes, no crackles, no accessory muscle use. Chest tube in place, drained 15ml of clear yellow fluid this morning. HEART: Tachycardia, +S1/S2, no murmurs appreciated. ABDOMEN: Soft, nontender, nondistended, normoactive bowel sounds, no guarding. EXTREMITIES: Warm, well-perfused, no edema. SKIN: Warm, dry, normal turgor, no rashes or lesions noted Laboratory Results - last 24 hr 09/10/17 09/13/17 09/14/17 20:30 09:52 05:55 WBC 12.2 H RBC 3.00 L Hgb 8.8 L D Hct 26.2 L MCV 87.4 MCH 29.4 MCHC 33.7 RDW 15.9 Plt Count 439 H MPV 7.6 Neutrophils % 66.7 Lymphocytes % 23.8 Monocytes % 5.8 Eosinophils % 3.3 Basophils % 0.4 Sodium Potassium Plasma Potassium 4.6 Chloride Carbon Dioxide Anion Gap BUN Creatinine Creat Clearance w eGFR Random Glucose Calcium Phosphorus Magnesium Total Bilirubin AST ALT Alkaline Phosphatase Total Protein Albumin Blood Type O POSITIVE Antibody Screen Negative Crossmatch See Detail 09/14/17 05:55 WBC RBC Hgb Hct MCV MCH MCHC RDW Plt Count MPV Neutrophils % Lymphocytes % Monocytes % Eosinophils % Basophils % Sodium 140 Potassium 5.7 H Plasma Potassium Chloride 99 Carbon Dioxide 28 Anion Gap 13 BUN 67 H D Creatinine 11.2 H* D Creat Clearance w eGFR 5.70 Random Glucose 82 Calcium 8.7 Phosphorus 8.8 H D Magnesium 2.5 H Total Bilirubin 0.3 AST 16 ALT 14 Alkaline Phosphatase 67 Total Protein 5.6 L Albumin 1.8 L Blood Type Antibody Screen Crossmatch Active Medications Generic Name Dose Route Start Last Admin Trade Name Freq PRN Reason Stop Dose Admin Acetaminophen 650 mg 09/01/17 17:04 09/13/17 22:19 Tylenol - PO 650 mg Q6H PRN Administration fever Albuterol/Ipratropium 1 amp 09/12/17 11:44 09/12/17 20:55 Duoneb - NEB 1 amp RQID PRN Administration SHORT OF BREATH/WHEEZING Amino Acids 30 ml 09/03/17 16:15 09/14/17 08:29 Prosource No Carb Liquid Pkt NGT [address] Administration Carvedilol 25 mg 09/10/17 15:00 09/14/17 08:29 Coreg - PO [address] Administration Chlorhexidine Gluconate 1 applic 08/29/17 22:00 09/13/17 22:20 Hibiclens For Decolonization - TP [address] Administration Docusate Sodium 100 mg 09/04/17 10:00 Colace Liquid - NGT TID PRN CONSTIPATION Heparin Sodium (Porcine) 5,000 unit 09/12/17 14:00 09/14/17 05:57 Heparin - SQ 09/17/17 00:01 5,[address] Administration Hydralazine HCl 75 mg 09/14/17 09:43 Apresoline - PO TID LANE Lacosamide 100 mg 09/10/17 22:00 09/14/17 08:28 Vimpat - PO [address] Administration Lidocaine/Aluminum/Magnesium/Simeth 5 ml 09/12/17 00:00 09/14/17 05:57 Magic Mouthwash *Sjr Formula* - MM [address] Administration Multivit/Ca Carb/B Cmplx/FA/Prenat 1 tablet 09/13/17 10:00 09/14/17 08:29 Nephro-Claudia - PO [address] Administration Nifedipine 120 mg 09/12/17 10:00 09/14/17 08:28 Procardia Xl - PO [address] Administration ASSESSMENT/PLAN: 22M with PMH of autism and seizure disorder, presents with severe htn, anemia, thrombocytopenia, leukocytosis, hyperkalemia, ANNA, admitted to ICU. # sepsis - likely 2/2 lung source - leukocytosis improving today - pt remains afebrile - ID (Dr. Moise) recs appreciated: antibiotics D/Salvador 09/10/17 - repeat blood culture (-) x 48 hrs # htn - continue Coreg BID, Hydralazine TID, and Procardia - Cardiology (Dr. Brenner) recs appreciated: pt often agitated which likely contributes to high BP at times - goal BP 120/80 # acute hypoxic respiratory failure - pt intubated 09/02/17 and extubated 09/06/17 - Chest tube in place for loculated pleural effusion - s/p new Chest tube by IR on 09/12/17 which is also not draining much - VATS procedure with Dr. Ivy scheduled for 10am on Sunday09/17/17 - continue Duoneb prn # ANNA - Nephrology (Dr. Velasquez) recs appreciated: pt receiving HD and Epogen today - renal biopsy to be done once pt stable - IR can get biopsy if cleared by anesthesia - s/p permacath placement 09/10/17 # anemia - pt s/p 4U PRBCs this hospitalization (with most recent unit on 09/10/17) - monitor CBC - monitor for overt s/s of bleeding # seizure - continue Vimpat # FEN - Fluids: po - Electrolytes: hyperkalemia/hypermagnesemia/hyperphosphatemia noted, on HD now, continue to monitor - Nutrition: dysphagia puree diet with Magic Cup and Ensure chocolate pudding , Prosource daily # Prophylaxis - DVT ppx with Heparin TID Visit type - Emergency Visit Emergency Visit: Yes ED Registration Date: 08/29/17 Care time: The patient presented to the Emergency Department on the above date and was hospitalized for further evaluation of their emergent condition. - New Patient This patient is new to me today: No - Critical Care Critical Care patient: Yes Total Critical Care Time (in minutes): 40 Critical Care Statement: The care of this patient involved high complexity decision making to prevent further life threatening deterioration of the patient 's condition and/or to evaluate & treat vital organ system(s) failure or risk of failure.
--- NOTE | 2017-09-14 11:38 | PN ---
Progress Note (short form) - Note Progress Note: CC: htn urgency S: pt does not communicate well. appears comfortable, no overnight events o: Current Medications Generic Name Dose Route Start Last Admin Trade Name Freq PRN Reason Stop Dose Admin Acetaminophen 650 mg 09/01/17 17:04 09/13/17 22:19 Tylenol - PO 650 mg Q6H PRN Administration fever Albuterol/Ipratropium 1 amp 09/12/17 11:44 09/12/17 20:55 Duoneb - NEB 1 amp RQID PRN Administration SHORT OF BREATH/WHEEZING Amino Acids 30 ml 09/03/17 16:15 09/14/17 08:29 Prosource No Carb Liquid Pkt NGT [address] Administration Carvedilol 25 mg 09/10/17 15:00 09/14/17 08:29 Coreg - PO [address] Administration Chlorhexidine Gluconate 1 applic 08/29/17 22:00 09/13/17 22:20 Hibiclens For Decolonization - TP [address] Administration Docusate Sodium 100 mg 09/04/17 10:00 Colace Liquid - NGT TID PRN CONSTIPATION Heparin Sodium (Porcine) 5,000 unit 09/12/17 14:00 09/14/17 05:57 Heparin - SQ 09/17/17 00:01 5,[address] Administration Hydralazine HCl 100 mg 09/14/17 14:00 Apresoline - PO TID LANE Isosorbide Mononitrate 30 mg 09/15/17 10:00 Imdur - PO DAILY LANE Lacosamide 100 mg 09/10/17 22:00 09/14/17 08:28 Vimpat - PO [address] Administration Lidocaine/Aluminum/Magnesium/Simeth 5 ml 09/12/17 00:00 09/14/17 05:57 Magic Mouthwash *Sjr Formula* - MM [address] Administration Multivit/Ca Carb/B Cmplx/FA/Prenat 1 tablet 09/13/17 10:00 09/14/17 08:29 Nephro-Claudia - PO [address] Administration Nifedipine 120 mg 09/12/17 10:00 09/14/17 08:28 Procardia Xl - PO [address] Administration Vital Signs Period Temp Pulse Resp BP Sys/Mora Pulse Ox Last 24 Hr 98.2 F-98.8 F 103-122 18-22 122-223/64-145 97-99 nad, calm nad no jvd rrr s1 s2 no mrg dullness at left base, nl effort. + chest tube. no jaundice diaphoresis trace le edema bl abd nd pos bs CBC, BMP 09/14/17 05:55 09/14/17 05:55 cxr 09/10: progressive fluid and infiltrate on left. --> chest tube was adjusted. ecg: sr,prolonged qtc, no ischemic changes echo 08/2017: nl lv/rv, no sig valve path cxr: left eff tele: sinus tach a/p: 22 m hx autism, seizures, possible underlying ckd/htn here with ams, respiratory failure/sepsis, anna requiring HD and hypertensive urgency. Cardiac course complicated by mild troponin elevation and prolonged qtc. anna requiring HD: -renal eval in progress, planned for biopsy -currently getting HD here htn urgency/emergency: -elevated at times -now on nicard gtt. will get po procardia today as well and try to titrate off gtt. - 09/03: no IV access for cardene drip. needs po meds through NG tube --> started norvasc 10, hydral 20 tid. - 09/04 remains htn. Uptitrated hydralazine to 50 tid. This afternoon remains hypertensive. Will add carvedilol 6.25 bid. - 09/05: remains htn. will uptitrate coreg to 12.5 bid. - 09/06: extubated today (no longer with NGT) and made NPO. Was unable to get po meds today. --> remains hypertensive. No longer on sedation --> can get IV labetolol drip. Recommend initiation of labetolol drip. - 09/07: BP improved on labetolol drip. Patient cleared for po meds. Discussed with renal. Will initiate coreg 12.5 mg bid, nifedipine 10 mg po tid. uptitrate regimen as needed in order to wean off labetolol drip. 09/08: BP well controlled this afternoon 130/84mmHg on oral regimen as outlined above. -echo here unremarkable 09/09: BP elevated this AM. Now back on Labetelol gtt. Would recommend increase coreg up to 25mg PO BID and reattempt Labatelol wean. Being managed by renal team. 09/10: BP slowly improving. coreg d/c overnight. Would stop labetolol drip and resume coreg at 25 bid. Would optimize coreg dose prior to adding on clonidine. (stop clonidine). Con't nifedipine. Discussed plan with renal. 09/11-: con't coreg 25 bid, nifedipine. uptitrate hydralazine as needed. 09/14: bp remains very high. will cont coreg and nifed but increase hydralzine to 100 tid and add imdur 30 qd abnormal troponins - likely increased in setting of ANNA. likely demand, no concern for acs. anemia: -chronic, mgm't per primary team respiratory failure s/p intubation 09/02 and extubation 09/06 - with white out of left lung - 09/04 s/p chest tube placement. - eval/mgm't by pmd/critical care team ongoing. plans for vats on sunday.
--- NOTE | 2017-09-14 12:09 | PN ---
Teaching Attending Note Name of Resident: Delilah Mathis ATTENDING PHYSICIAN STATEMENT I saw and evaluated the patient. I reviewed the resident's note and discussed the case with the resident. I agree with the resident's findings and plan as documented. SUBJECTIVE: Patient seen and examined in the ICU. Awake and alert. No acute events overnight. Minimal CT output noted. Currently on acute HD. Intake & Output 09/11/17 09/12/17 09/13/17 09/14/17 23:59 23:59 23:59 23:59 Intake Total 960 590 600 Output Total 0 40 60 10 Balance 960 550 540 -10 Weight 182 lb 14.4 oz 185 lb 11.2 oz 179 lb 14.355 oz Last Vital Signs Temp Pulse Resp BP Pulse Ox 98.8 F 121 H 18 154/73 99 09/14/17 06:55 09/14/17 10:35 09/14/17 10:35 09/14/17 10:35 09/14/17 10:00 Active Medications Acetaminophen (Tylenol -) 650 mg PO Q6H PRN PRN Reason: fever Last Admin: 09/13/17 22:19 Dose: 650 mg Albuterol/Ipratropium (Duoneb -) 1 amp NEB RQID PRN PRN Reason: SHORT OF BREATH/WHEEZING Last Admin: 09/12/17 20:55 Dose: 1 amp Amino Acids (Prosource No Carb Liquid Pkt) 30 ml NGT DAILY COUNT [facility]CLUDES [facility] Last Admin: 09/14/17 08:29 Dose: 30 ml Carvedilol (Coreg -) 25 mg PO BID COUNT [facility]CLUDES [facility] Last Admin: 09/14/17 08:29 Dose: 25 mg Chlorhexidine Gluconate (Hibiclens For Decolonization -) 1 applic TP HS COUNT INCLUDES [facility] Last Admin: 09/13/17 22:20 Dose: 1 applic Docusate Sodium (Colace Liquid -) 100 mg NGT TID PRN PRN Reason: CONSTIPATION Heparin Sodium (Porcine) (Heparin -) 5,000 unit SQ TID COUNT [facility]CLUDES [facility] Stop: 09/17/17 00:01 Last Admin: 09/14/17 05:57 Dose: 5,000 unit Hydralazine HCl (Apresoline -) 100 mg PO TID COUNT INCLUDES [facility] Isosorbide Mononitrate (Imdur -) 30 mg PO DAILY COUNT [facility]CLUDES [facility] Lacosamide (Vimpat -) 100 mg PO BID COUNT [facility]CLUDES [facility] Last Admin: 09/14/17 08:28 Dose: 100 mg Lidocaine/Aluminum/Magnesium/Simeth (Magic Mouthwash *Sjr Formula* -) 5 ml MM Q6HPO COUNT INCLUDES [facility] Last Admin: 09/14/17 05:57 Dose: 5 ml Multivit/Ca Carb/B Cmplx/FA/Prenat (Nephro-Claudia -) 1 tablet PO DAILY COUNT [facility]CLUD[facility] Last Admin: 09/14/17 08:29 Dose: 1 tablet Nifedipine (Procardia Xl -) 120 mg PO DAILY COUNT [facility]CLUD[facility] Last Admin: 09/14/17 08:28 Dose: 120 mg GENERAL: young male with autism, lying in bed, alert HEENT: PEARRLA, EOMI LUNGS: few rhonchi, left pigtail catheter HEART: tachycardia, regular rhythm, no murmurs ABDOMEN: soft, NT, ND EXTREMITIES: 2+ pulses, warm, well-perfused, 1+ edema in all 4 extremities NEUROLOGICAL: EOMI, PERRLA, unresponsive to commands Laboratory Results - last 24 hr 09/10/17 09/14/17 09/14/17 20:30 05:55 05:55 WBC 12.2 H RBC 3.00 L Hgb 8.8 L D Hct 26.2 L MCV 87.4 MCH 29.4 MCHC 33.7 RDW 15.9 Plt Count 439 H MPV 7.6 Neutrophils % 66.7 Lymphocytes % 23.8 Monocytes % 5.8 Eosinophils % 3.3 Basophils % 0.4 Sodium 140 Potassium 5.7 H Chloride 99 Carbon Dioxide 28 Anion Gap 13 BUN 67 H D Creatinine 11.2 H* D Creat Clearance w eGFR 5.70 Random Glucose 82 Calcium 8.7 Phosphorus 8.8 H D Magnesium 2.5 H Total Bilirubin 0.3 AST 16 ALT 14 Alkaline Phosphatase 67 Total Protein 5.6 L Albumin 1.8 L Blood Type O POSITIVE Antibody Screen Negative Crossmatch See Detail ASSESSMENT AND PLAN: Hypertensive Urgency Acute Kidney Injury requiring HD Acute Hypoxic Respiratory Failure Pneumonia Loculated Pleural Effusion Hyponatremia Severe Sepsis Lactic Acidosis Thrombocytopenia improved Anemia Autism - Will need VATS due to multi-loculated effusions (Sunday) - Titrate BP Meds - ABX - monitor H/H - Normal transfusion thresholds - monitor urine output, creatinine - O2 as needed - PO as tolerated - DVT/GI prophylaxis - continue ICU monitoring Dr Dwaine Critical care time spent in reviewing chart, evaluating patient and formulating plan 35 min
[2017-09-14 13:09] LABS: HEMATOCRIT 28.7 % (35.4-49); HEMOGLOBIN 9.7 GM/dL (11.7-16.9); MCH 29.4 pg (25.7-33.7); MEAN CELL VOLUME 86.6 fl (80-96); MEAN PLT VOLUME 7.6 fl (7.5-11.1); PLATELET COUNT 443 K/MM3 (134-434); RBC 3.31 M/mm3 (4.00-5.60); RDW 15.7 % (11.9-15.9); WHITE BLOOD COUNT 10.3 K/mm3 (4.0-10.0)
[2017-09-14] MEDS ORDERED: PT OWN MED DRAWER 7, Y5N ONE (13:20)
[2017-09-14 13:25] LABS: ALK PHOS 75 U/L (45-117); ANION GAP 6 (8-16); BLOOD UREA NITROGEN 27 mg/dL (7-18); CHLORIDE 99 mmol/L (98-107); CO2 33 mmol/L (21-32); CREATININE 5.1 mg/dL (0.7-1.3); GLUCOSE,RANDOM 94 mg/dL (74-106); POTASSIUM 4.7 mmol/L (3.5-5.1); SGOT/AST 17 U/L (15-37); SGPT/ALT 16 U/L (12-78); SODIUM 138 mmol/L (136-145); TOT PROT 6.1 g/dl (6.4-8.2)
[2017-09-14 13:28] LABS: BILIRUBIN,TOTAL < 0.1 mg/dL (0.2-1.0)
--- NOTE | 2017-09-14 14:30 | PN ---
Progress Note (short form) - Note Progress Note: Thoracic: Will obtain consent for bronch, lvats, decort. NPO on Sunday. Surgery Sunday.
--- NOTE | 2017-09-14 16:55 | PN ---
Progress Note, Physician History of Present Illness: Pt seen and examined at bedside. He tolerated HD today. - Current Medication List Current Medications: Active Medications Acetaminophen (Tylenol -) 650 mg PO Q6H PRN PRN Reason: fever Last Admin: 09/13/17 22:19 Dose: 650 mg Albuterol/Ipratropium (Duoneb -) 1 amp NEB RQID PRN PRN Reason: SHORT OF BREATH/WHEEZING Last Admin: 09/12/17 20:55 Dose: 1 amp Amino Acids (Prosource No Carb Liquid Pkt) [address] [facility] Last Admin: 09/14/17 08:29 Dose: 30 ml Carvedilol (Coreg -) [address] [facility] Last Admin: 09/14/17 08:29 Dose: 25 mg Chlorhexidine Gluconate (Hibiclens For Decolonization -) [address] [facility] Last Admin: 09/13/17 22:20 Dose: 1 applic Docusate Sodium (Colace Liquid -) 100 mg NGT TID PRN PRN Reason: CONSTIPATION Heparin Sodium (Porcine) (Heparin -) 5,[address] [facility] Stop: 09/17/17 00:01 Last Admin: 09/14/17 13:42 Dose: 5,000 unit Hydralazine HCl (Apresoline -) [address] [facility] Last Admin: 09/14/17 13:41 Dose: 100 mg Isosorbide Mononitrate (Imdur -) [address] [facility] Lacosamide (Vimpat -) [address] [facility] Last Admin: 09/14/17 08:28 Dose: 100 mg Lidocaine/Aluminum/Magnesium/Simeth (Magic Mouthwash *Sjr Formula* -) [address] [facility] Last Admin: 09/14/17 12:00 Dose: Not Given Multivit/Ca Carb/B Cmplx/FA/Prenat (Nephro-Claudia -) [address] [facility] Last Admin: 09/14/17 08:29 Dose: 1 tablet Nifedipine (Procardia Xl -) [address] [facility] Last Admin: 09/14/17 08:28 Dose: 120 mg - Objective Vital Signs: Vital Signs Temperature 98.9 F 09/14/17 13:00 Pulse Rate 75 09/14/17 16:46 Respiratory Rate 18 09/14/17 16:46 Blood Pressure 148/56 09/14/17 16:46 O2 Sat by Pulse Oximetry (%) 99 09/14/17 10:00 Constitutional: Yes: Calm Eyes: Yes: Conjunctiva Clear HENT: Yes: Atraumatic Cardiovascular: Yes: S1, S2 Respiratory: Yes: On Nasal O2, Other (chest tube) Gastrointestinal: Yes: Soft Genitourinary: Yes: Incontinence Musculoskeletal: Yes: Muscle Weakness Edema: LLE: Trace, RLE: Trace Neurological: Yes: Pre-Existing Deficit Labs: CBC, BMP 09/14/17 12:35 09/14/17 12:35 INR, PTT INR 1.16 (0.82-1.09) H 09/10/17 08:25 Fibrinogen 579.0 mg/dL (238-498) H 08/29/17 20:00 Problem List - Problems (1) Acute renal failure Code(s): N17.9 - ACUTE KIDNEY FAILURE, UNSPECIFIED Qualifiers: Acute renal failure type: unspecified Qualified Code(s): N17.9 - Acute kidney failure, unspecified (2) Anemia Code(s): D64.9 - ANEMIA, UNSPECIFIED (3) Hyperkalemia Code(s): E87.5 - HYPERKALEMIA (4) Hypertensive urgency Code(s): I16.0 - HYPERTENSIVE URGENCY (5) Sepsis Code(s): A41.9 - SEPSIS, UNSPECIFIED ORGANISM Qualifiers: Sepsis type: sepsis due to unspecified organism Qualified Code(s): A41.9 - Sepsis, unspecified organism (6) Thrombocytopenia Code(s): D69.6 - THROMBOCYTOPENIA, UNSPECIFIED (7) Seizure Code(s): R56.9 - UNSPECIFIED CONVULSIONS Assessment/Plan Current Medications Generic Name Dose Route Start Last Admin Trade Name Freq PRN Reason Stop Dose Admin Acetaminophen 650 mg 09/01/17 17:04 09/13/17 22:19 Tylenol - PO 650 mg Q6H PRN Administration fever Albuterol/Ipratropium 1 amp 09/12/17 11:44 09/12/17 20:55 Duoneb - NEB 1 amp RQID PRN Administration SHORT OF BREATH/WHEEZING Amino Acids 30 ml 09/03/17 16:15 09/14/17 08:29 Prosource No Carb Liquid Pkt NGT [address] Administration Carvedilol 25 mg 09/10/17 15:00 09/14/17 08:29 Coreg - PO [address] Administration Chlorhexidine Gluconate 1 applic 08/29/17 22:00 09/13/17 22:20 Hibiclens For Decolonization - TP [address] Administration Docusate Sodium 100 mg 09/04/17 10:00 Colace Liquid - NGT TID PRN CONSTIPATION Heparin Sodium (Porcine) 5,000 unit 09/12/17 14:00 09/14/17 13:42 Heparin - SQ 09/17/17 00:01 5,[address] Administration Hydralazine HCl 100 mg 09/14/17 14:00 09/14/17 13:41 Apresoline - PO [address] Administration Isosorbide Mononitrate 30 mg 09/15/17 10:00 Imdur - PO DAILY LANE Lacosamide 100 mg 09/10/17 22:00 09/14/17 08:28 Vimpat - PO [address] Administration Lidocaine/Aluminum/Magnesium/Simeth 5 ml 09/12/17 00:00 09/14/17 12:00 Magic Mouthwash *Sjr Formula* - MM Not Given Q6HPO LANE Multivit/Ca Carb/B Cmplx/FA/Prenat 1 tablet 09/13/17 10:00 09/14/17 08:29 Nephro-Claudia - PO [address] Administration Nifedipine 120 mg 09/12/17 10:00 09/14/17 08:28 Procardia Xl - PO [address] Administration Impression 1. ANNA 2. HTN urgency/emergency 3. hyperkalemia 4. hyponatremia 5. autism 6. hx of seizure 7. anemia 8. CKD 9. lactic acidosis improving 10. thrombocytopenia 11. hyperkalemia 12. pleural effusion 13. acute resp failure requiring intubation 14. ESRD Plan - HD today - discussed with CTS, pt going to OR on Sunday - renal diet - restrict fluid intake - kidney biopsy once more stable - discussed with family - follow cultures Dr Velasquez
--- NOTE | 2017-09-14 18:44 | PN ---
Progress Note (short form) - Note Progress Note: Patient seen and examined Denies any complaints Last Vital Signs Temp Pulse Resp BP Pulse Ox 98.9 F 75 18 148/56 99 09/14/17 13:00 09/14/17 16:46 09/14/17 16:46 09/14/17 16:46 09/14/17 10:00 Cor: RSR, No murmurs, No gallops Lungs: Clear to P&A Abd: Soft, Normal bowel sounds, No organomegaly Ext:No significant edema Abnormal Lab Results 09/10/17 09/14/17 09/14/17 20:30 05:55 05:55 WBC 12.2 H RBC 3.00 L Hgb 8.8 L D Hct 26.2 L Plt Count 439 H Potassium 5.7 H Carbon Dioxide Anion Gap BUN 67 H D Creatinine 11.2 H* D Calcium Phosphorus 8.8 H D Magnesium 2.5 H Total Bilirubin Total Protein 5.6 L Albumin 1.8 L Crossmatch See Detail 09/14/17 09/14/17 12:35 12:35 WBC 10.3 H RBC 3.31 L Hgb 9.7 L D Hct 28.7 L Plt Count 443 H Potassium Carbon Dioxide 33 H Anion Gap 6 L BUN 27 H D Creatinine 5.1 H D Calcium 8.0 L Phosphorus Magnesium Total Bilirubin < 0.1 L D Total Protein 6.1 L Albumin 2.0 L Crossmatch Active Medications Generic Name Dose Route Start Last Admin Trade Name Freq PRN Reason Stop Dose Admin Acetaminophen 650 mg 09/01/17 17:04 09/13/17 22:19 Tylenol - PO 650 mg Q6H PRN Administration fever Albuterol/Ipratropium 1 amp 09/12/17 11:44 09/12/17 20:55 Duoneb - NEB 1 amp RQID PRN Administration SHORT OF BREATH/WHEEZING Amino Acids 30 ml 09/03/17 16:15 09/14/17 08:29 Prosource No Carb Liquid Pkt NGT [address] Administration Carvedilol 25 mg 09/10/17 15:00 09/14/17 08:29 Coreg - PO [address] Administration Chlorhexidine Gluconate 1 applic 08/29/17 22:00 09/13/17 22:20 Hibiclens For Decolonization - TP [address] Administration Docusate Sodium 100 mg 09/04/17 10:00 Colace Liquid - NGT TID PRN CONSTIPATION Heparin Sodium (Porcine) 5,000 unit 09/12/17 14:00 09/14/17 13:42 Heparin - SQ 09/17/17 00:01 5,[address] Administration Hydralazine HCl 100 mg 09/14/17 14:00 09/14/17 13:41 Apresoline - PO [address] Administration Isosorbide Mononitrate 30 mg 09/15/17 10:00 Imdur - PO DAILY LANE Lacosamide 100 mg 09/10/17 22:00 09/14/17 08:28 Vimpat - PO [address] Administration Lidocaine/Aluminum/Magnesium/Simeth 5 ml 09/12/17 00:00 09/14/17 12:00 Magic Mouthwash *Sjr Formula* - MM Not Given Q6HPO LANE Multivit/Ca Carb/B Cmplx/FA/Prenat 1 tablet 09/13/17 10:00 09/14/17 08:29 Nephro-Claudia - PO [address] Administration Nifedipine 120 mg 09/12/17 10:00 09/14/17 08:28 Procardia Xl - PO [address] Administration A/P 22 y/o patient with ANNA/hypertensive crisis, and 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 On HD. to get bx in future anemia--multifactorial, CKD for VATS,and Lt. pleural decortication on 09/17
[2017-09-14] MEDS: ALBUTEROL SO4 2.5/IPRATROPIUM 0.5 INH SOL 3 ML VIAL.NEB. NEB PRN (21:24)
[2017-09-14] MEDS: CHLORHEXIDINE GLUCONATE 4% CLEANSER FOR DECOLONIZATION TP SCH (22:13)
[2017-09-15] MEDS ORDERED: PT OWN MED DRAWER 7, Y5N ONE (03:17)
[2017-09-15 05:50] LABS: HEMATOCRIT 25.1 % (35.4-49); HEMOGLOBIN 8.5 GM/dL (11.7-16.9); MCH 29.5 pg (25.7-33.7); MCHC 33.9 g/dl (32.0-35.9); MEAN CELL VOLUME 87.2 fl (80-96); MEAN PLT VOLUME 7.6 fl (7.5-11.1); PLATELET COUNT 438 K/MM3 (134-434); RBC 2.88 M/mm3 (4.00-5.60); RDW 15.4 % (11.9-15.9); WHITE BLOOD COUNT 9.3 K/mm3 (4.0-10.0)
[2017-09-15] MEDS: HEPARIN NA (PORCINE) 5,000 UNITS/ML 1ML VIAL SQ SCH ×3 (05:50→21:10)
[2017-09-15] MEDS: hydrALAZINE HCL 50 MG TABLET (FP) PO SCH ×3 (05:51→21:12)
[2017-09-15] MEDS: MAG HYDROX/ALH/SMC/DPHA/LIDO 240 ML MOUTHWASH MM SCH ×6 (05:52→21:19)
[2017-09-15] MEDS: NYSTATIN 100,000 UNIT/GM TOPICAL CREAM 15 GM TUBE TP SCH ×3 (05:54→21:13)
[2017-09-15 06:19] LABS: ANION GAP 11 (8-16); BLOOD UREA NITROGEN 45 mg/dL (7-18); CALCIUM 8.4 mg/dL (8.5-10.1); CHLORIDE 98 mmol/L (98-107); CO2 30 mmol/L (21-32); GLUCOSE,RANDOM 81 mg/dL (74-106); MAGNESIUM 2.1 mg/dL (1.8-2.4); PHOSPHOROUS 6.7 mg/dL (2.5-4.9); POTASSIUM 5.5 mmol/L (3.5-5.1); SODIUM 139 mmol/L (136-145)
--- NOTE | 2017-09-15 08:31 | PN ---
Progress Note (short form) - Note Progress Note: Seen and examined in ICU Stable over night Still hypertensive Received HD yesterday Plan for OR Sunday for VATS and decort Current Medications Acetaminophen (Tylenol -) 650 mg PO Q6H PRN PRN Reason: fever Last Admin: 09/13/17 22:19 Dose: 650 mg Albuterol/Ipratropium (Duoneb -) 1 amp NEB RQID PRN PRN Reason: SHORT OF BREATH/WHEEZING Last Admin: 09/14/17 21:24 Dose: 1 amp Amino Acids (Prosource No Carb Liquid Pkt) 30 ml NGT DAILY [facility] Last Admin: 09/14/17 22:14 Dose: Not Given Carvedilol (Coreg -) 25 mg PO BID [facility] Last Admin: 09/14/17 22:12 Dose: 25 mg Chlorhexidine Gluconate (Hibiclens For Decolonization -) 1 applic TP HS [facility] Last Admin: 09/14/17 22:13 Dose: 1 applic Docusate Sodium (Colace Liquid -) 100 mg NGT TID PRN PRN Reason: CONSTIPATION Heparin Sodium (Porcine) (Heparin -) 5,000 unit SQ TID [facility] Stop: 09/17/17 00:01 Last Admin: 09/15/17 05:50 Dose: 5,000 unit Hydralazine HCl (Apresoline -) 100 mg PO TID [facility] Last Admin: 09/15/17 05:51 Dose: 100 mg Isosorbide Mononitrate (Imdur -) 30 mg PO DAILY [facility] Lacosamide (Vimpat -) 100 mg PO BID [facility] Last Admin: 09/14/17 22:13 Dose: 100 mg Lidocaine/Aluminum/Magnesium/Simeth (Magic Mouthwash *Sjr Formula* -) 5 ml MM Q6HPO [facility] Last Admin: 09/15/17 05:52 Dose: 5 ml Multivit/Ca Carb/B Cmplx/FA/Prenat (Nephro-Claudia -) 1 tablet PO DAILY [facility] Last Admin: 09/14/17 22:13 Dose: Not Given Nifedipine (Procardia Xl -) 120 mg PO DAILY [facility] Last Admin: 09/14/17 22:13 Dose: Not Given Nystatin (Mycostatin Cream -) 1 applic TP Q6HPO [facility] Last Admin: 09/15/17 05:54 Dose: Not Given Vital Signs Period Temp Pulse Resp BP Sys/Mora Pulse Ox Last 24 Hr 98.4 F-100 F 74-122 16-20 116-223/48-144 99-99 Intake & Output 09/12/17 09/13/17 09/14/17 09/15/17 23:59 23:59 23:59 23:59 Intake Total 590 600 240 Output Total 40 60 10 50 Balance 550 540 230 -50 Weight 82.962 kg 84.232 kg 81.6 kg 80.739 kg Exam: General: in bed comfortable, no distress HEENT: PERRL, TDC c/d/i CV: sinus tachycardia Pulm: diminished on left, CT with minimal drainage, no air leak Abd: SNTND, +BS Ext: LE +2 edema in feet and hands Neuro: awake and calm CBC, BMP 09/15/17 05:35 09/15/17 05:35 CXR: left pigtaill, persistent effusion Microbiology 09/11/17 13:15 Blood - Peripheral Venous Blood Culture - Preliminary NO GROWTH OBTAINED AFTER 72 HOURS, INCUBATION TO CONTINUE FOR 2 DAYS. 09/11/17 12:44 Blood - Peripheral Venous Blood Culture - Preliminary NO GROWTH OBTAINED AFTER 72 HOURS, INCUBATION TO CONTINUE FOR 2 DAYS. 09/04/17 16:30 Sputum - Endotrachea Suction/Ventilator Gram Stain - Final 09/04/17 16:30 Sputum - Endotrachea Suction/Ventilator Sputum Culture - Final 09/05/17 23:00 Stool Shiga Toxin Test - Final 09/06/17 16:15 Stool Salmonella/Shigella Culture - Final Yeast Like Organism 09/06/17 16:15 Stool Campylobacter Culture - Final NO GROWTH OF CAMPYLOBACTER SPECIES OBTAINED 09/06/17 16:15 Stool Yersinia Culture - Final NO GROWTH OF YERSINIA SPECIES OBTAINED 09/06/17 16:15 Stool Vibrio Culture - Final NO GROWTH OF VIBRIO SPECIES OBTAINED 09/06/17 16:15 Stool Escherichia coli 0157 Culture - Final NO GROWTH OF E COLI 0157 OBTAINED 09/02/17 16:20 Blood - Peripheral Venous Blood Culture - Final NO GROWTH AFTER 5 DAYS INCUBATION 09/04/17 11:45 Pleural Fluid Gram Stain - Final 09/04/17 11:45 Pleural Fluid Body Fluid Culture - Final NO GROWTH OF AEROBIC ORGANISMS AFTER 48 HOURS INCUBATION 09/04/17 11:45 Pleural Fluid Anaerobic Culture - Final NO ANAEROBES WERE ISOLATED 09/04/17 11:45 Pleural Fluid AFB Smear Concentration - Final 09/04/17 11:45 Pleural Fluid Mycobacterial Culture - Preliminary 09/05/17 23:00 Stool Clostridium difficile Antigen (JONAH) - Final 09/05/17 23:00 Stool Clostridium difficile Toxin Assay - Final 09/01/17 15:00 Blood - Central Line Blood Culture - Final NO GROWTH AFTER 5 DAYS INCUBATION 09/01/17 15:00 Blood - Central Line Blood Culture - Final NO GROWTH AFTER 5 DAYS INCUBATION 09/02/17 16:14 Pleural Fluid Gram Stain - Final 09/02/17 16:14 Pleural Fluid Body Fluid Culture - Final NO GROWTH OF AEROBIC ORGANISMS AFTER 48 HOURS INCUBATION 09/02/17 16:14 Pleural Fluid Anaerobic Culture - Final NO ANAEROBES WERE ISOLATED 09/04/17 11:45 Pleural Fluid VANESSA Preparation - Preliminary 09/04/17 11:45 Pleural Fluid Fungal Culture - Preliminary 09/02/17 18:00 Urine - Urine Clean Catch Urine Culture - Final NO GROWTH OBTAINED 08/29/17 12:37 Blood - Peripheral Venous Blood Culture - Final NO GROWTH AFTER 5 DAYS INCUBATION 08/29/17 12:37 Blood - Peripheral Venous Blood Culture - Final NO GROWTH AFTER 5 DAYS INCUBATION 08/29/17 10:52 Urine - Urine Clean Catch Urine Culture - Final NO GROWTH OBTAINED ASSESSMENT AND PLAN: Hypertensive Urgency Acute Kidney Injury requiring HD Acute Hypoxic Respiratory Failure Pneumonia Loculated Pleural Effusion Hyponatremia Severe Sepsis Lactic Acidosis Thrombocytopenia improved Anemia Autism - Will need VATS due to multi-loculated effusions (Sunday) - Titrate BP Meds - ABX - monitor H/H - Normal transfusion thresholds - iHD per renal - O2 as needed for sat >90% - PO as tolerated - DVT/GI prophylaxis - continue ICU monitoring Boerem ACNP Pulm/CCM CCT: 36m
[2017-09-15] MEDS ORDERED: LABETALOL HCL 200 MG TABLET (FP) PO PRN (09:10)
--- NOTE | 2017-09-15 09:11 | PN ---
Progress Note, Physician Chief Complaint: HTN emergency History of Present Illness: non-verbal (communicates with mom via hand gestures). - Current Medication List Current Medications: Active Medications Acetaminophen (Tylenol -) 650 mg PO Q6H PRN PRN Reason: fever Last Admin: 09/13/17 22:19 Dose: 650 mg Albuterol/Ipratropium (Duoneb -) 1 amp NEB RQID PRN PRN Reason: SHORT OF BREATH/WHEEZING Last Admin: 09/14/17 21:24 Dose: 1 amp Amino Acids (Prosource No Carb Liquid Pkt) 30 ml NGT DAILY [facility] Last Admin: 09/14/17 22:14 Dose: Not Given Carvedilol (Coreg -) 25 mg PO BID [facility] Last Admin: 09/14/17 22:12 Dose: 25 mg Chlorhexidine Gluconate (Hibiclens For Decolonization -) 1 applic TP HS [facility] Last Admin: 09/14/17 22:13 Dose: 1 applic Docusate Sodium (Colace Liquid -) 100 mg NGT TID PRN PRN Reason: CONSTIPATION Heparin Sodium (Porcine) (Heparin -) 5,000 unit SQ TID [facility] Stop: 09/17/17 00:01 Last Admin: 09/15/17 05:50 Dose: 5,000 unit Hydralazine HCl (Apresoline -) 100 mg PO TID [facility] Last Admin: 09/15/17 05:51 Dose: 100 mg Isosorbide Mononitrate (Imdur -) 30 mg PO DAILY [facility] Lacosamide (Vimpat -) 100 mg PO BID [facility] Last Admin: 09/14/17 22:13 Dose: 100 mg Lidocaine/Aluminum/Magnesium/Simeth (Magic Mouthwash *Sjr Formula* -) 5 ml MM Q6HPO [facility] Last Admin: 09/15/17 05:52 Dose: 5 ml Multivit/Ca Carb/B Cmplx/FA/Prenat (Nephro-Claudia -) 1 tablet PO DAILY [facility] Last Admin: 09/14/17 22:13 Dose: Not Given Nifedipine (Procardia Xl -) 120 mg PO DAILY [facility] Last Admin: 09/14/17 22:13 Dose: Not Given Nystatin (Mycostatin Cream -) 1 applic TP Q6HPO [facility] Last Admin: 09/15/17 05:54 Dose: Not Given - Objective Vital Signs: Vital Signs Temperature 98.5 F 09/15/17 06:00 Pulse Rate 114 H 09/15/17 08:00 Respiratory Rate 18 09/15/17 08:00 Blood Pressure 223/108 09/15/17 06:00 O2 Sat by Pulse Oximetry (%) 96 09/15/17 08:58 Constitutional: Yes: No Distress, Calm Eyes: No: Sclera Icterus HENT: No: Nasal Congestion Cardiovascular: Yes: Regular Rate and Rhythm, S1, S2, Other (PMI non diplaced). No: Gallop, Murmur Respiratory: Yes: CTA Bilaterally. No: Accessory Muscle Use, Rales, Rhonchi Gastrointestinal: Yes: Normal Bowel Sounds, Soft. No: Tenderness Musculoskeletal: Yes: Other (No kyphosis) Extremities: No: Cyanosis Edema: No Integumentary: No: Jaundice Neurological: Yes: Alert. No: Seizure Psychiatric: No: Agitated Labs: CBC, BMP 09/15/17 05:35 09/15/17 05:35 INR, PTT INR 1.16 (0.82-1.09) H 09/10/17 08:25 Fibrinogen 579.0 mg/dL (238-498) H 08/29/17 20:00 Assessment/Plan cxr 09/10: progressive fluid and infiltrate on left. --> chest tube was adjusted. ecg: sr,prolonged qtc, no ischemic changes echo 08/2017: nl lv/rv, no sig valve path cxr: left eff tele: NSR a/p: 22 m hx autism, seizures, possible underlying ckd/htn here with ams, respiratory failure/sepsis, anna requiring HD and hypertensive urgency. Cardiac course complicated by mild troponin elevation and prolonged qtc. HTN emergency: -per mother, no hi BP history ever despite regular sales development executive followups. was uncontrolled when here 12/11 for seizure, with agitation then--no BP checked since that discharge she says -has had difficult to control BP here, requiring nifedipine and labetalol drips (the latter up to 2mg/min, i.e. 2800 mg/day, without good bp control) 09/14: increased hydralzine to 100 tid and add imdur 30 qd -09/15: BP severely elevated again this am (220/100). change nifedip 120 qd to 90 bid to cover overnight/early AM bp's (very short-acting med). change coreg to labetalol 400 TID for greater potency (with prn PO doses ordered), will likely need closer to 600-800 TID labetlol, will titrate up as needed -deferring RAAS-blockers for now given ANNA with renal w/u ongoing -consider clonidine patch next, for consistent 24 hr drug coverage vs minoxidil anna requiring HD: -creat 2.1 here in november, ? no prior w/u per mother -suspect hypertensive renal failure, progressive since then, though possible causality in other direction (no MD f/u since november, per mother) -renal eval in progress, planned for biopsy -currently getting HD here abnormal troponins - flat trend, with intermediate range values - secondary to sepsis myocardial injury, vs demand ischemia (severe HTN, with tachycardia to 120s-130s). no clinical findings to support acs here. anemia: -chronic, mgm't per primary team respiratory failure s/p intubation, pleural effusion - with white out of left lung - 09/04 s/p chest tube placement. - plan per critical care/thoracic surgery--for vats/decortication on sunday.
[2017-09-15] MEDS: ISOSORBIDE MONONITRATE 30 MG TAB.SR.24H (FP) PO SCH (09:38)
[2017-09-15] MEDS: ACETAMINOPHEN 325 MG TABLET (FP) PO PRN ×2 (09:39→21:10)
[2017-09-15] MEDS: LACOSAMIDE 50 MG TABLET PO SCH ×2 (09:42→21:11)
[2017-09-15] MEDS: AMINO ACIDS/PROTEIN HYDROLYS 30 ML LIQUID.PKT NGT SCH (09:42)
[2017-09-15] MEDS: VITAMIN B COMP W-C 1 EA TABLET PO SCH (09:43)
[2017-09-15] MEDS ORDERED: NIFEdipine E.R 60 MG TABLET (UD) PO SCH (10:00)
--- NOTE | 2017-09-15 10:06 | PN ---
Physical Exam: SUBJECTIVE: Patient seen and examined. Per Mom at bedside, pt is more agitated today. He is watching ipad, scratching at himself OBJECTIVE: Vital Signs Period Temp Pulse Resp BP Sys/Moar Pulse Ox Last 24 Hr 98.4 F-100 F 74-122 16-20 116-223/48-108 96-99 PE Neuro: awake, alert, follows commands Pulm: diminished left, L sided pig tail + drainage CV: s1 s2 tachycardia Abd: s nt nd +bs Ext: pedal edema L>R, + 2 b/l UE Access: RCW permacath Skin: Warm, groin skin red, irritated Laboratory Results - last 24 hr 09/14/17 09/14/17 09/15/17 12:35 12:35 05:35 WBC 10.3 H 9.3 RBC 3.31 L 2.88 L Hgb 9.7 L D 8.5 L D Hct 28.7 L 25.1 L MCV 86.6 87.2 MCH 29.4 29.5 MCHC 34.0 33.9 RDW 15.7 15.4 Plt Count 443 H 438 H MPV 7.6 7.6 Sodium 138 Potassium 4.7 Chloride 99 Carbon Dioxide 33 H Anion Gap 6 L BUN 27 H D Creatinine 5.1 H D Creat Clearance w eGFR 14.13 Random Glucose 94 Calcium 8.0 L Phosphorus Magnesium Total Bilirubin < 0.1 L D AST 17 ALT 16 Alkaline Phosphatase 75 Total Protein 6.1 L Albumin 2.0 L 09/15/17 05:35 WBC RBC Hgb Hct MCV MCH MCHC RDW Plt Count MPV Sodium 139 Potassium 5.5 H Chloride 98 Carbon Dioxide 30 Anion Gap 11 BUN 45 H D Creatinine 8.0 H* D Creat Clearance w eGFR Random Glucose 81 Calcium 8.4 L Phosphorus 6.7 H D Magnesium 2.1 Total Bilirubin AST ALT Alkaline Phosphatase Total Protein Albumin Active Medications Generic Name Dose Route Start Last Admin Trade Name Freq PRN Reason Stop Dose Admin Acetaminophen 650 mg 09/01/17 17:04 09/15/17 09:39 Tylenol - PO 650 mg Q6H PRN Administration fever Albuterol/Ipratropium 1 amp 09/12/17 11:44 09/14/17 21:24 Duoneb - NEB 1 amp RQID PRN Administration SHORT OF BREATH/WHEEZING Amino Acids 30 ml 09/03/17 16:15 09/15/17 09:42 Prosource No Carb Liquid Pkt NGT [address] Administration Chlorhexidine Gluconate 1 applic 08/29/17 22:00 09/14/17 22:13 Hibiclens For Decolonization - TP [address] Administration Diphenhydramine HCl 25 mg 09/15/17 09:52 Benadryl - PO Q6H PRN FOR ITCHING Docusate Sodium 100 mg 09/04/17 10:00 Colace Liquid - NGT TID PRN CONSTIPATION Heparin Sodium (Porcine) 5,000 unit 09/12/17 14:00 09/15/17 05:50 Heparin - SQ 09/17/17 00:01 5,[address] Administration Hydralazine HCl 100 mg 09/14/17 14:00 09/15/17 05:51 Apresoline - PO [address] Administration Isosorbide Mononitrate 30 mg 09/15/17 10:00 09/15/17 09:38 Imdur - PO [address] Administration Labetalol HCl 300 mg 09/15/17 14:00 Normodyne - PO TID LANE Labetalol HCl 200 mg 09/15/17 09:10 Normodyne - PO Q2H PRN HYPERTENSION Lacosamide 100 mg 09/10/17 22:00 09/15/17 09:42 Vimpat - PO [address] Administration Lidocaine/Aluminum/Magnesium/Simeth 5 ml 09/12/17 00:00 09/15/17 05:52 Magic Mouthwash *Sjr Formula* - MM [address] Administration Multivit/Ca Carb/B Cmplx/FA/Prenat 1 tablet 09/13/17 10:00 09/15/17 09:43 Nephro-Claudia - PO [address] Administration Nifedipine 60 mg 09/15/17 10:00 09/15/17 09:42 Procardia Xl - PO [address] Administration Nystatin 1 applic 09/15/17 06:00 09/15/17 05:54 Mycostatin Cream - TP Not Given Q6HPO [facility] Assessment: 22 year old male with PMH significant for HTN, autism, and epilepsy admitted for pneumonia, ANNA, hypertensive emergency. Hospital course complicated by acute respiratory failure, requiring intubation and emergent HD, now with permath placed on 09/10, extubated3 08/09. Plan: 1. Left pleural effusion with loculation - s/p thoracentesis 09/02, pigtail 09/04 - For VATS with decort Sunday - Type and screen Sunday night/NPO 2. Severe sepsis secondary to pneumonia, fevers - Atalectasis vs secondary infection - Low grade fever this AM - Observing off abx 3. ANNA on HD - HD yesterday - Give HTN meds prior to HD, do not hold - Epo with HD - Biopsy planned after VATS 4. Severe, refractory hypertension - Change Procardia xl 90mg BID - Hydralazine 100mg TID, Imdur 30mg daily - Stop coreg, change to labetalol 300mg TID for more potent vasodilatory effect 5. Acute hypoxic respiratory failure - Resolved 6. Epilepsy - Continue Vimpat 7. DVT prophylaxis: SCDs Dispo: continues to require ICU level care. Full code. Visit type - Emergency Visit Emergency Visit: Yes ED Registration Date: 08/29/17 Care time: The patient presented to the Emergency Department on the above date and was hospitalized for further evaluation of their emergent condition. - New Patient This patient is new to me today: No - Critical Care Critical Care patient: No
[2017-09-15] MEDS ORDERED: NIFEdipine E.R. 30 MG TABLET (FP) PO ONE (10:07)
[2017-09-15] MEDS ORDERED: NIFEdipine E.R. 90 MG TABLET (FP) PO SCH (10:07)
[2017-09-15] MEDS: diphenhydrAMINE HCL 25 MG CAPSULE (FP) PO PRN ×2 (10:12→21:12)
[2017-09-15] MEDS ORDERED: SODIUM CHLORIDE 250 ML IV PRN (13:42)
--- NOTE | 2017-09-15 13:49 | PN ---
Progress Note, Physician History of Present Illness: Pt seen and examined at bedside. He is awake and appears comfortable. - Current Medication List Current Medications: Active Medications Acetaminophen (Tylenol -) 650 mg PO Q6H PRN PRN Reason: fever Last Admin: 09/15/17 09:39 Dose: 650 mg Albuterol/Ipratropium (Duoneb -) 1 amp NEB RQID PRN PRN Reason: SHORT OF BREATH/WHEEZING Last Admin: 09/14/17 21:24 Dose: 1 amp Amino Acids (Prosource No Carb Liquid Pkt) 30 ml NGT DAILY [facility] Last Admin: 09/15/17 09:42 Dose: 30 ml Chlorhexidine Gluconate (Hibiclens For Decolonization -) 1 applic TP HS [facility] Last Admin: 09/14/17 22:13 Dose: 1 applic Diphenhydramine HCl (Benadryl -) 25 mg PO Q6H PRN PRN Reason: FOR ITCHING Last Admin: 09/15/17 10:12 Dose: 25 mg Docusate Sodium (Colace Liquid -) 100 mg NGT TID PRN PRN Reason: CONSTIPATION Heparin Sodium (Porcine) (Heparin -) 5,000 unit SQ TID [facility] Stop: 09/17/17 00:01 Last Admin: 09/15/17 05:50 Dose: 5,000 unit Hydralazine HCl (Apresoline -) 100 mg PO TID [facility] Last Admin: 09/15/17 05:51 Dose: 100 mg Isosorbide Mononitrate (Imdur -) 30 mg PO DAILY [facility] Last Admin: 09/15/17 09:38 Dose: 30 mg Labetalol HCl (Normodyne -) 200 mg PO Q2H PRN PRN Reason: HYPERTENSION Labetalol HCl (Normodyne -) 400 mg PO TID [facility] Lacosamide (Vimpat -) 100 mg PO BID [facility] Last Admin: 09/15/17 09:42 Dose: 100 mg Lidocaine/Aluminum/Magnesium/Simeth (Magic Mouthwash *Sjr Formula* -) 5 ml MM Q6HPO [facility] Last Admin: 09/15/17 05:52 Dose: 5 ml Multivit/Ca Carb/B Cmplx/FA/Prenat (Nephro-Claudia -) 1 tablet PO DAILY [facility] Last Admin: 09/15/17 09:43 Dose: 1 tablet Nifedipine (Procardia Xl -) [address] Nifedipine (Procardia Xl -) 60 mg PO HS ONE Stop: 09/15/17 22:01 Nystatin (Mycostatin Cream -) [address] Last Admin: 09/15/17 05:54 Dose: Not Given - Objective Vital Signs: Vital Signs Temperature 99.9 F H 09/15/17 12:00 Pulse Rate 108 H 09/15/17 13:28 Respiratory Rate 18 09/15/17 13:28 Blood Pressure 116/56 09/15/17 13:28 O2 Sat by Pulse Oximetry (%) 96 09/15/17 10:00 Constitutional: Yes: Calm Eyes: Yes: Conjunctiva Clear HENT: Yes: Atraumatic Cardiovascular: Yes: S1, S2 Respiratory: Yes: CTA Bilaterally Gastrointestinal: Yes: Soft Genitourinary: Yes: Incontinence Musculoskeletal: Yes: WNL Edema: No Integumentary: Yes: WNL Neurological: Yes: Pre-Existing Deficit Psychiatric: Yes: Oriented Labs: CBC, BMP 09/15/17 05:35 09/15/17 05:35 INR, PTT INR 1.16 (0.82-1.09) H 09/10/17 08:25 Fibrinogen 579.0 mg/dL (238-498) H 08/29/17 20:00 Problem List - Problems (1) Acute renal failure Code(s): N17.9 - ACUTE KIDNEY FAILURE, UNSPECIFIED Qualifiers: Acute renal failure type: unspecified Qualified Code(s): N17.9 - Acute kidney failure, unspecified (2) Anemia Code(s): D64.9 - ANEMIA, UNSPECIFIED (3) Hyperkalemia Code(s): E87.5 - HYPERKALEMIA (4) Hypertensive urgency Code(s): I16.0 - HYPERTENSIVE URGENCY (5) Sepsis Code(s): A41.9 - SEPSIS, UNSPECIFIED ORGANISM Qualifiers: Sepsis type: sepsis due to unspecified organism Qualified Code(s): A41.9 - Sepsis, unspecified organism (6) Thrombocytopenia Code(s): D69.6 - THROMBOCYTOPENIA, UNSPECIFIED (7) Seizure Code(s): R56.9 - UNSPECIFIED CONVULSIONS Assessment/Plan Current Medications Generic Name Dose Route Start Last Admin Trade Name Freq PRN Reason Stop Dose Admin Acetaminophen 650 mg 09/01/17 17:04 09/15/17 09:39 Tylenol - PO 650 mg Q6H PRN Administration fever Albuterol/Ipratropium 1 amp 09/12/17 11:44 09/14/17 21:24 Duoneb - NEB 1 amp RQID PRN Administration SHORT OF BREATH/WHEEZING Amino Acids 30 ml 09/03/17 16:15 09/15/17 09:42 Prosource No Carb Liquid Pkt NGT [address] Administration Chlorhexidine Gluconate 1 applic 08/29/17 22:00 09/14/17 22:13 Hibiclens For Decolonization - TP [address] Administration Diphenhydramine HCl 25 mg 09/15/17 09:52 09/15/17 10:12 Benadryl - PO 25 mg Q6H PRN Administration FOR ITCHING Docusate Sodium 100 mg 09/04/17 10:00 Colace Liquid - NGT TID PRN CONSTIPATION Heparin Sodium (Porcine) 5,000 unit 09/12/17 14:00 09/15/17 05:50 Heparin - SQ 09/17/17 00:01 5,[address] Administration Hydralazine HCl 100 mg 09/14/17 14:00 09/15/17 05:51 Apresoline - PO [address] Administration Sodium Chloride 250 mls @ 3,000 mls/hr 09/15/17 13:42 Normal Saline - IV 09/16/17 13:42 PRN PRN Hypotension during Dialysis Isosorbide Mononitrate 30 mg 09/15/17 10:00 09/15/17 09:38 Imdur - PO [address] Administration Labetalol HCl 200 mg 09/15/17 09:10 Normodyne - PO Q2H PRN HYPERTENSION Labetalol HCl 400 mg 09/15/17 14:00 Normodyne - PO TID LANE Lacosamide 100 mg 09/10/17 22:00 09/15/17 09:42 Vimpat - PO [address] Administration Lidocaine/Aluminum/Magnesium/Simeth 5 ml 09/12/17 00:00 09/15/17 05:52 Magic Mouthwash *Sjr Formula* - MM [address] Administration Multivit/Ca Carb/B Cmplx/FA/Prenat 1 tablet 09/13/17 10:00 09/15/17 09:43 Nephro-Claudia - PO [address] Administration Nifedipine 90 mg 09/16/17 10:00 Procardia Xl - PO BID LANE Nifedipine 60 mg 09/15/17 22:00 Procardia Xl - PO 09/15/17 22:01 HS ONE Nystatin 1 applic 09/15/17 06:00 09/15/17 05:54 Mycostatin Cream - TP Not Given Q6HPO LANE Impression 1. ANNA 2. HTN urgency/emergency 3. hyperkalemia 4. hyponatremia 5. autism 6. hx of seizure 7. anemia 8. CKD 9. lactic acidosis improving 10. thrombocytopenia 11. hyperkalemia 12. pleural effusion 13. acute resp failure requiring intubation 14. ESRD Plan - will dialyze again today as potassium is rising - next HD on Sunday - cts on Sunday - discussed with mother - low potassium diet - bp is improved Dr Velasquez
[2017-09-15] MEDS ORDERED: LABETALOL HCL 100 MG TABLET (FP) PO SCH (14:00)
[2017-09-15] MEDS: LABETALOL HCL 200 MG TABLET (FP) PO SCH ×2 (16:52→21:11)
[2017-09-15] MEDS: CHLORHEXIDINE GLUCONATE 4% CLEANSER FOR DECOLONIZATION TP SCH (21:19)
[2017-09-15] MEDS ORDERED: NIFEdipine E.R. 90 MG TABLET (FP) PO ONE (22:00)
[2017-09-15] MEDS ORDERED: NIFEdipine E.R 60 MG TABLET (UD) PO ONE (22:00)
[2017-09-16] MEDS: NYSTATIN 100,000 UNIT/GM TOPICAL CREAM 15 GM TUBE TP SCH ×4 (02:49→18:00)
[2017-09-16] MEDS: MAG HYDROX/ALH/SMC/DPHA/LIDO 240 ML MOUTHWASH MM SCH ×4 (02:49→18:02)
[2017-09-16] MEDS: hydrALAZINE HCL 50 MG TABLET (FP) PO SCH ×3 (05:20→22:03)
[2017-09-16] MEDS: LABETALOL HCL 200 MG TABLET (FP) PO SCH ×3 (05:21→21:57)
[2017-09-16] MEDS: HEPARIN NA (PORCINE) 5,000 UNITS/ML 1ML VIAL SQ SCH ×3 (05:21→21:58)
[2017-09-16 05:50] LABS: BASO % 0.9 % (0-2.0); EOS % 4.3 % (0-4.5); HEMATOCRIT 25.6 % (35.4-49); HEMOGLOBIN 8.6 GM/dL (11.7-16.9); MCH 29.2 pg (25.7-33.7); MCHC 33.5 g/dl (32.0-35.9); MEAN CELL VOLUME 87.2 fl (80-96); MEAN PLT VOLUME 7.4 fl (7.5-11.1); MONO % 8.9 % (3.8-10.2); NEUT % 53.9 % (42.8-82.8); PLATELET COUNT 416 K/MM3 (134-434); RBC 2.93 M/mm3 (4.00-5.60); RDW 15.3 % (11.9-15.9); WHITE BLOOD COUNT 7.8 K/mm3 (4.0-10.0)
[2017-09-16 06:08] LABS: ANION GAP 11 (8-16); BLOOD UREA NITROGEN 31 mg/dL (7-18); CALCIUM 8.4 mg/dL (8.5-10.1); CHLORIDE 99 mmol/L (98-107); CO2 30 mmol/L (21-32); CREATININE 6.2 mg/dL (0.7-1.3); GLUCOSE,RANDOM 86 mg/dL (74-106); MAGNESIUM 1.9 mg/dL (1.8-2.4); PHOSPHOROUS 6.4 mg/dL (2.5-4.9); POTASSIUM 4.9 mmol/L (3.5-5.1); SODIUM 140 mmol/L (136-145)
--- NOTE | 2017-09-16 07:14 | PN ---
Progress Note (short form) - Note Progress Note: Seen and examined in the ICU Stable overnight low grade fever 100 Current Medications Acetaminophen (Tylenol -) 650 mg PO Q6H PRN PRN Reason: fever Last Admin: 09/15/17 21:10 Dose: 650 mg Albuterol/Ipratropium (Duoneb -) 1 amp NEB RQID PRN PRN Reason: SHORT OF BREATH/WHEEZING Last Admin: 09/14/17 21:24 Dose: 1 amp Amino Acids (Prosource No Carb Liquid Pkt) 30 ml NGT DAILY [facility] Last Admin: 09/15/17 09:42 Dose: 30 ml Chlorhexidine Gluconate (Hibiclens For Decolonization -) 1 applic TP HS [facility] Last Admin: 09/15/17 21:19 Dose: 1 applic Diphenhydramine HCl (Benadryl -) 25 mg PO Q6H PRN PRN Reason: FOR ITCHING Last Admin: 09/15/17 21:12 Dose: 25 mg Docusate Sodium (Colace Liquid -) 100 mg NGT TID PRN PRN Reason: CONSTIPATION Heparin Sodium (Porcine) (Heparin -) 5,000 unit SQ TID [facility] Stop: 09/17/17 00:01 Last Admin: 09/16/17 05:21 Dose: 5,000 unit Hydralazine HCl (Apresoline -) 100 mg PO TID [facility] Last Admin: 09/16/17 05:20 Dose: 100 mg Sodium Chloride (Normal Saline -) 250 mls @ 3,000 mls/hr IV PRN PRN PRN Reason: Hypotension during Dialysis Stop: 09/16/17 13:42 Isosorbide Mononitrate (Imdur -) 30 mg PO DAILY [facility] Last Admin: 09/15/17 09:38 Dose: 30 mg Labetalol HCl (Normodyne -) 200 mg PO Q2H PRN PRN Reason: HYPERTENSION Labetalol HCl (Normodyne -) 400 mg PO TID [facility] Last Admin: 09/16/17 05:21 Dose: 400 mg Lacosamide (Vimpat -) 100 mg PO BID [facility] Last Admin: 09/15/17 21:11 Dose: 100 mg Lidocaine/Aluminum/Magnesium/Simeth (Magic Mouthwash *Sjr Formula* -) 5 ml MM Q6HPO [facility] Last Admin: 09/16/17 05:29 Dose: 5 ml Multivit/Ca Carb/B Cmplx/FA/Prenat (Nephro-Claudia -) 1 tablet PO DAILY [facility] Last Admin: 09/15/17 09:43 Dose: 1 tablet Nifedipine (Procardia Xl -) 90 mg PO BID [facility] Nystatin (Mycostatin Cream -) 1 applic TP Q6HPO [facility] Last Admin: 09/16/17 05:23 Dose: 1 applic Vital Signs Period Temp Pulse Resp BP Sys/Mora Pulse Ox Last 24 Hr 98.2 F-100.0 F 102-118 15-18 92-206/45-107 96-97 Intake & Output 09/13/17 09/14/17 09/15/17 09/16/17 23:59 23:59 23:59 23:59 Intake Total 600 240 640 Output Total 60 10 50 30 Balance 540 230 590 -30 Weight 84.232 kg 81.6 kg 80.739 kg 78.698 kg Exam: General: in bed comfortable, no distress HEENT: PERRL, TDC c/d/i CV: sinus tachycardia Pulm: diminished on left, CT with minimal drainage, no air leak Abd: SNTND, +BS Ext: LE +2 edema in feet and hands Neuro: awake and calm CBC, BMP 09/16/17 05:25 09/16/17 05:25 CXR: pending ASSESSMENT AND PLAN: Hypertensive Urgency Acute Kidney Injury requiring HD Acute Hypoxic Respiratory Failure Pneumonia Loculated Pleural Effusion Hyponatremia Severe Sepsis Lactic Acidosis Thrombocytopenia improved Anemia Autism - Will need VATS due to multi-loculated effusions (Sunday) - Titrate BP Meds - ABX - monitor H/H - Normal transfusion thresholds - iHD per renal - O2 as needed for sat >90% - PO as tolerated - DVT/GI prophylaxis - continue ICU monitoring Boerem ACNP Pulm/CCM CCT: 36m
--- NOTE | 2017-09-16 08:23 | PN ---
Progress Note, Physician Chief Complaint: HTN emergency History of Present Illness: very calm and comfortable per mom no witnessed sob non-verbal no cigs - Current Medication List Current Medications: Active Medications Acetaminophen (Tylenol -) 650 mg PO Q6H PRN PRN Reason: fever Last Admin: 09/15/17 21:10 Dose: 650 mg Albuterol/Ipratropium (Duoneb -) 1 amp NEB RQID PRN PRN Reason: SHORT OF BREATH/WHEEZING Last Admin: 09/14/17 21:24 Dose: 1 amp Amino Acids (Prosource No Carb Liquid Pkt) 30 ml NGT DAILY [facility] Last Admin: 09/15/17 09:42 Dose: 30 ml Chlorhexidine Gluconate (Hibiclens For Decolonization -) 1 applic TP HS [facility] Last Admin: 09/15/17 21:19 Dose: 1 applic Diphenhydramine HCl (Benadryl -) 25 mg PO Q6H PRN PRN Reason: FOR ITCHING Last Admin: 09/15/17 21:12 Dose: 25 mg Docusate Sodium (Colace Liquid -) 100 mg NGT TID PRN PRN Reason: CONSTIPATION Heparin Sodium (Porcine) (Heparin -) 5,000 unit SQ TID [facility] Stop: 09/17/17 00:01 Last Admin: 09/16/17 05:21 Dose: 5,000 unit Hydralazine HCl (Apresoline -) 100 mg PO TID [facility] Last Admin: 09/16/17 05:20 Dose: 100 mg Hydrocortisone (Anusol 2.5% Hc Cream -) 1 applic TP DAILY [facility] Sodium Chloride (Normal Saline -) 250 mls @ 3,000 mls/hr IV PRN PRN PRN Reason: Hypotension during Dialysis Stop: 09/16/17 13:42 Isosorbide Mononitrate (Imdur -) 30 mg PO DAILY [facility] Last Admin: 09/15/17 09:38 Dose: 30 mg Labetalol HCl (Normodyne -) 200 mg PO Q2H PRN PRN Reason: HYPERTENSION Labetalol HCl (Normodyne -) 400 mg PO TID [facility] Last Admin: 09/16/17 05:21 Dose: 400 mg Lacosamide (Vimpat -) 100 mg PO BID [facility] Last Admin: 09/15/17 21:11 Dose: 100 mg Lidocaine/Aluminum/Magnesium/Simeth (Magic Mouthwash *Sjr Formula* -) 5 ml MM Q6HPO [facility] Last Admin: 09/16/17 05:29 Dose: 5 ml Multivit/Ca Carb/B Cmplx/FA/Prenat (Nephro-Claudia -) [address] Last Admin: 09/15/17 09:43 Dose: 1 tablet Nifedipine (Procardia Xl -) [address] Nystatin (Mycostatin Cream -) 1 applic TP Q6HPO [facility] Last Admin: 09/16/17 05:23 Dose: 1 applic Zinc Acetate/Diphenhydramine (Benadryl 2% Cream) 1 applic TP DAILY [facility] - Objective Vital Signs: Vital Signs Temperature 98.6 F 09/16/17 05:00 Pulse Rate 100 H 09/16/17 07:00 Respiratory Rate 16 09/16/17 07:00 Blood Pressure 154/86 09/16/17 07:00 O2 Sat by Pulse Oximetry (%) 97 09/15/17 22:00 Constitutional: Yes: No Distress, Calm Eyes: No: Sclera Icterus HENT: No: Nasal Congestion Cardiovascular: Yes: Regular Rate and Rhythm, S1, S2, Other (PMI non diplaced). No: Gallop, Murmur Respiratory: Yes: CTA Bilaterally, Diminished (left side). No: Accessory Muscle Use Gastrointestinal: Yes: Normal Bowel Sounds, Soft. No: Tenderness Musculoskeletal: Yes: Other (No kyphosis) Extremities: No: Cold Edema: No Integumentary: No: Jaundice Neurological: Yes: Alert. No: Seizure Psychiatric: No: Agitated Labs: CBC, BMP 09/16/17 05:25 09/16/17 05:25 INR, PTT INR 1.16 (0.82-1.09) H 09/10/17 08:25 Fibrinogen 579.0 mg/dL (238-498) H 08/29/17 20:00 Assessment/Plan echo 08/2017: nl lv/rv, no sig valve path cxr: left eff tele: NSR a/p: 22 m hx autism, seizures, possible underlying ckd/htn here with ams, respiratory failure/sepsis, anna requiring HD and hypertensive urgency. Cardiac course complicated by mild troponin elevation and prolonged qtc. HTN emergency: -per mother, no hi BP history ever despite regular ocularist followups. was uncontrolled when here 12/11 for seizure, with agitation then--no BP checked since that discharge she says -has had difficult to control BP here, requiring nifedipine and labetalol drips (the latter up to 2mg/min, i.e. 2800 mg/day, without good bp control) 09/14: increased hydralzine to 100 tid and add imdur 30 qd -09/15: BP severely elevated again this am (220/100). change nifedip 120 qd to 90 bid to cover overnight/early AM bp's (very short-acting med). change coreg to labetalol 400 TID for greater potency (with prn PO doses ordered), will likely need closer to 600-800 TID labetlol, will titrate up as needed -09/16: s/p HD yesterday. meds adjusted as above. BP much improved including early AM readings today. continue same meds. -try to cut down nifedipine dose (to 60 bid) +/- hydralazine dose later, if bp remains well controlled. -deferring RAAS-blockers for now given ANNA with renal w/u ongoing -consider clonidine patch next, for consistent 24 hr drug coverage vs minoxidil anna requiring HD: -creat 2.1 here in november, ? no prior w/u per mother -suspect hypertensive renal failure, progressive since then, though possible causality in other direction (no MD f/u since november, per mother) -renal eval in progress, planned for biopsy -currently getting HD here abnormal troponins - flat trend, with intermediate range values - secondary to sepsis myocardial injury, vs demand ischemia (severe HTN, with tachycardia to 120s-130s). no clinical findings to support acs here. anemia: -chronic, mgm't per primary team respiratory failure s/p intubation, pleural effusion - with white out of left lung - 09/04 s/p chest tube placement. - plan per critical care/thoracic surgery--for vats/decortication on sunday.
[2017-09-16] MEDS: NIFEdipine E.R. 90 MG TABLET (FP) PO SCH ×2 (09:24→22:02)
[2017-09-16] MEDS: LACOSAMIDE 50 MG TABLET PO SCH ×2 (09:24→21:57)
[2017-09-16] MEDS: VITAMIN B COMP W-C 1 EA TABLET PO SCH (09:25)
[2017-09-16] MEDS: ISOSORBIDE MONONITRATE 30 MG TAB.SR.24H (FP) PO SCH (09:25)
[2017-09-16] MEDS: AMINO ACIDS/PROTEIN HYDROLYS 30 ML LIQUID.PKT NGT SCH (09:26)
--- NOTE | 2017-09-16 11:15 | PN ---
Physical Exam: SUBJECTIVE: Patient seen and examined. Calm, watching TV. No acute issues overnight. Events: - low grade fever this am - BP better controlled OBJECTIVE: Vital Signs Period Temp Pulse Resp BP Sys/Mora Pulse Ox Last 24 Hr 98.2 F-100.0 F 99-118 15-18 92-154/45-96 94-97 PE Neuro: awake, alert, NAD Pulm: diminished left, L sided pig tail + drainage CV: s1 s2 tachycardia Abd: s nt nd +bs Ext: pedal edema +1, b/l UE Access: RCW permacath Laboratory Results - last 24 hr 09/16/17 09/16/17 05:25 05:25 WBC 7.8 RBC 2.93 L Hgb 8.6 L Hct 25.6 L MCV 87.2 MCH 29.2 MCHC 33.5 RDW 15.3 Plt Count 416 MPV 7.4 L Neutrophils % 53.9 Lymphocytes % 32.0 D Monocytes % 8.9 Eosinophils % 4.3 Basophils % 0.9 Sodium 140 Potassium 4.9 Chloride 99 Carbon Dioxide 30 Anion Gap 11 BUN 31 H D Creatinine 6.2 H D Random Glucose 86 Calcium 8.4 L Phosphorus 6.4 H Magnesium 1.9 Active Medications Generic Name Dose Route Start Last Admin Trade Name Freq PRN Reason Stop Dose Admin Acetaminophen 650 mg 09/01/17 17:04 09/15/17 21:10 Tylenol - PO 650 mg Q6H PRN Administration fever Albuterol/Ipratropium 1 amp 09/12/17 11:44 09/14/17 21:24 Duoneb - NEB 1 amp RQID PRN Administration SHORT OF BREATH/WHEEZING Amino Acids 30 ml 09/03/17 16:15 09/16/17 09:26 Prosource No Carb Liquid Pkt NGT [address] Administration Chlorhexidine Gluconate 1 applic 08/29/17 22:00 09/15/17 21:19 Hibiclens For Decolonization - TP 1 applic HS ALNE Administration Diphenhydramine HCl 25 mg 09/15/17 09:52 09/15/17 21:12 Benadryl - PO 25 mg Q6H PRN Administration FOR ITCHING Docusate Sodium 100 mg 09/04/17 10:00 Colace Liquid - NGT TID PRN CONSTIPATION Heparin Sodium (Porcine) 5,000 unit 09/12/17 14:00 09/16/17 05:21 Heparin - SQ 09/17/17 00:01 5,[address] Administration Hydralazine HCl 100 mg 09/14/17 14:00 09/16/17 05:20 Apresoline - PO [address] Administration Hydrocortisone 1 applic 09/16/17 10:00 Anusol 2.5% Hc Cream - TP DAILY LANE Sodium Chloride 250 mls @ 3,000 mls/hr 09/15/17 13:42 Normal Saline - IV 09/16/17 13:42 PRN PRN Hypotension during Dialysis Isosorbide Mononitrate 30 mg 09/15/17 10:00 09/16/17 09:25 Imdur - PO [address] Administration Labetalol HCl 200 mg 09/15/17 09:10 Normodyne - PO Q2H PRN HYPERTENSION Labetalol HCl 400 mg 09/15/17 14:00 09/16/17 05:21 Normodyne - PO [address] Administration Lacosamide 100 mg 09/10/17 22:00 09/16/17 09:24 Vimpat - PO [address] Administration Lidocaine/Aluminum/Magnesium/Simeth 5 ml 09/12/17 00:00 09/16/17 05:29 Magic Mouthwash *Sjr Formula* - MM [address] Administration Multivit/Ca Carb/B Cmplx/FA/Prenat 1 tablet 09/13/17 10:00 09/16/17 09:25 Nephro-Claudia - PO [address] Administration Nifedipine 90 mg 09/16/17 10:00 09/16/17 09:24 Procardia Xl - PO [address] Administration Nystatin 1 applic 09/15/17 06:00 09/16/17 05:23 Mycostatin Cream - TP [address] Administration Zinc Acetate/Diphenhydramine 1 applic 09/16/17 10:00 Benadryl 2% Cream TP DAILY LANE Assessment: 22 year old male with PMH significant for HTN, autism, and epilepsy admitted for pneumonia, ANNA, hypertensive emergency. Hospital course complicated by acute respiratory failure, requiring intubation and emergent HD, now with permath placed on 09/10, extubated3 08/09. Plan: 1. Left pleural effusion with loculation - s/p thoracentesis 09/02, pigtail 09/04 - For VATS with decort tomorrow - NPO after MD 2. Severe sepsis secondary to pneumonia, fevers - Atalectasis vs secondary infection - Observing off abx 3. ANNA on HD - HD tomorrow before VATS - Give HTN meds prior to HD, do not hold - Epo with HD - Biopsy planned after VATS 4. Severe, refractory hypertension - Better control - Procardia xl 90mg BID - Hydralazine 100mg TID, Imdur 30mg daily - Labetalol 300mg TID for more potent vasodilatory effect, uptitrate as needed 5. Acute hypoxic respiratory failure - Resolved 6. Epilepsy - Continue Vimpat 7. DVT prophylaxis: SCDs Dispo: continues to require ICU level care. Full code. Visit type - Emergency Visit Emergency Visit: Yes ED Registration Date: 08/29/17 Care time: The patient presented to the Emergency Department on the above date and was hospitalized for further evaluation of their emergent condition. - New Patient This patient is new to me today: No - Critical Care Critical Care patient: No
[2017-09-16] MEDS: HYDROCORTISONE 2.5% TOPICAL CREAM 30 GM TUBE TP SCH (12:34)
[2017-09-16] MEDS: ACETAMINOPHEN 325 MG TABLET (FP) PO PRN (13:12)
--- NOTE | 2017-09-16 16:51 | PN ---
Progress Note, Physician History of Present Illness: Pt seen and examined at bedside. He ripped out his IV lines today. He appears comfortable. - Current Medication List Current Medications: Active Medications Acetaminophen (Tylenol -) 650 mg PO Q6H PRN PRN Reason: fever Last Admin: 09/16/17 13:12 Dose: 650 mg Albuterol/Ipratropium (Duoneb -) 1 amp NEB RQID PRN PRN Reason: SHORT OF BREATH/WHEEZING Last Admin: 09/14/17 21:24 Dose: 1 amp Amino Acids (Prosource No Carb Liquid Pkt) 30 ml NGT DAILY [facility] Last Admin: 09/16/17 09:26 Dose: 30 ml Chlorhexidine Gluconate (Hibiclens For Decolonization -) 1 applic TP HS [facility] Last Admin: 09/15/17 21:19 Dose: 1 applic Diphenhydramine HCl (Benadryl -) 25 mg PO Q6H PRN PRN Reason: FOR ITCHING Last Admin: 09/15/17 21:12 Dose: 25 mg Docusate Sodium (Colace Liquid -) 100 mg NGT TID PRN PRN Reason: CONSTIPATION Heparin Sodium (Porcine) (Heparin -) 5,000 unit SQ TID [facility] Stop: 09/17/17 00:01 Last Admin: 09/16/17 13:12 Dose: 5,000 unit Hydralazine HCl (Apresoline -) 100 mg PO TID [facility] Last Admin: 09/16/17 13:12 Dose: 100 mg Hydrocortisone (Anusol 2.5% Hc Cream -) 1 applic TP DAILY [facility] Last Admin: 09/16/17 12:34 Dose: Not Given Sodium Chloride (Normal Saline -) 250 mls @ 3,000 mls/hr IV PRN PRN PRN Reason: Hypotension during Dialysis Stop: 09/16/17 13:42 Isosorbide Mononitrate (Imdur -) 30 mg PO DAILY [facility] Last Admin: 09/16/17 09:25 Dose: 30 mg Labetalol HCl (Normodyne -) 200 mg PO Q2H PRN PRN Reason: HYPERTENSION Labetalol HCl (Normodyne -) 400 mg PO TID [facility] Last Admin: 09/16/17 13:12 Dose: 400 mg Lacosamide (Vimpat -) 100 mg PO BID [facility] Last Admin: 09/16/17 09:24 Dose: 100 mg Lidocaine/Aluminum/Magnesium/Simeth (Magic Mouthwash *Sjr Formula* -) 5 ml MM Q6HPO [facility] Last Admin: 09/16/17 12:35 Dose: Not Given Multivit/Ca Carb/B Cmplx/FA/Prenat (Nephro-Claudia -) 1 tablet PO DAILY [facility] Last Admin: 09/16/17 09:25 Dose: 1 tablet Nifedipine (Procardia Xl -) 90 mg PO BID [facility] Last Admin: 09/16/17 09:24 Dose: 90 mg Nystatin (Mycostatin Cream -) 1 applic TP Q6HPO [facility] Last Admin: 09/16/17 12:35 Dose: 1 applic Zinc Acetate/Diphenhydramine (Benadryl 2% Cream) 1 applic TP DAILY [facility] Last Admin: 09/16/17 12:35 Dose: Not Given - Objective Vital Signs: Vital Signs Temperature 99.6 F 09/16/17 14:00 Pulse Rate 112 H 09/16/17 14:00 Respiratory Rate 16 09/16/17 14:00 Blood Pressure 157/80 09/16/17 14:00 O2 Sat by Pulse Oximetry (%) 94 L 09/16/17 10:00 Constitutional: Yes: Calm Eyes: Yes: Conjunctiva Clear HENT: Yes: Atraumatic Neck: Yes: Supple Cardiovascular: Yes: S1, S2 Respiratory: Yes: On Nasal O2 Gastrointestinal: Yes: Soft Genitourinary: Yes: Incontinence Musculoskeletal: Yes: Muscle Weakness Edema: No Neurological: Yes: Pre-Existing Deficit Labs: CBC, BMP 09/16/17 05:25 09/16/17 05:25 INR, PTT INR 1.16 (0.82-1.09) H 09/10/17 08:25 Fibrinogen 579.0 mg/dL (238-498) H 08/29/17 20:00 Problem List - Problems (1) Acute renal failure Code(s): N17.9 - ACUTE KIDNEY FAILURE, UNSPECIFIED Qualifiers: Acute renal failure type: unspecified Qualified Code(s): N17.9 - Acute kidney failure, unspecified (2) Anemia Code(s): D64.9 - ANEMIA, UNSPECIFIED (3) Hyperkalemia Code(s): E87.5 - HYPERKALEMIA (4) Hypertensive urgency Code(s): I16.0 - HYPERTENSIVE URGENCY (5) Sepsis Code(s): A41.9 - SEPSIS, UNSPECIFIED ORGANISM Qualifiers: Sepsis type: sepsis due to unspecified organism Qualified Code(s): A41.9 - Sepsis, unspecified organism (6) Thrombocytopenia Code(s): D69.6 - THROMBOCYTOPENIA, UNSPECIFIED (7) Seizure Code(s): R56.9 - UNSPECIFIED CONVULSIONS Assessment/Plan Current Medications Generic Name Dose Route Start Last Admin Trade Name Freq PRN Reason Stop Dose Admin Acetaminophen 650 mg 09/01/17 17:04 09/16/17 13:12 Tylenol - PO 650 mg Q6H PRN Administration fever Albuterol/Ipratropium 1 amp 09/12/17 11:44 09/14/17 21:24 Duoneb - NEB 1 amp RQID PRN Administration SHORT OF BREATH/WHEEZING Amino Acids 30 ml 09/03/17 16:15 09/16/17 09:26 Prosource No Carb Liquid Pkt NGT [address] Administration Chlorhexidine Gluconate 1 applic 08/29/17 22:00 09/15/17 21:19 Hibiclens For Decolonization - TP [address] Administration Diphenhydramine HCl 25 mg 09/15/17 09:52 09/15/17 21:12 Benadryl - PO 25 mg Q6H PRN Administration FOR ITCHING Docusate Sodium 100 mg 09/04/17 10:00 Colace Liquid - NGT TID PRN CONSTIPATION Heparin Sodium (Porcine) 5,000 unit 09/12/17 14:00 09/16/17 13:12 Heparin - SQ 09/17/17 00:01 5,[address] Administration Hydralazine HCl 100 mg 09/14/17 14:00 09/16/17 13:12 Apresoline - PO [address] Administration Hydrocortisone 1 applic 09/16/17 10:00 09/16/17 12:34 Anusol 2.5% Hc Cream - TP Not Given DAILY LANE Sodium Chloride 250 mls @ 3,000 mls/hr 09/15/17 13:42 Normal Saline - IV 09/16/17 13:42 PRN PRN Hypotension during Dialysis Isosorbide Mononitrate 30 mg 09/15/17 10:00 09/16/17 09:25 Imdur - PO [address] Administration Labetalol HCl 200 mg 09/15/17 09:10 Normodyne - PO Q2H PRN HYPERTENSION Labetalol HCl 400 mg 09/15/17 14:00 09/16/17 13:12 Normodyne - PO [address] Administration Lacosamide 100 mg 09/10/17 22:00 09/16/17 09:24 Vimpat - PO [address] Administration Lidocaine/Aluminum/Magnesium/Simeth 5 ml 09/12/17 00:00 09/16/17 12:35 Magic Mouthwash *Sjr Formula* - MM Not Given Q6HPO LANE Multivit/Ca Carb/B Cmplx/FA/Prenat 1 tablet 09/13/17 10:00 09/16/17 09:25 Nephro-Claudia - PO [address] Administration Nifedipine 90 mg 09/16/17 10:00 09/16/17 09:24 Procardia Xl - PO [address] Administration Nystatin 1 applic 09/15/17 06:00 09/16/17 12:35 Mycostatin Cream - TP [address] Administration Zinc Acetate/Diphenhydramine 1 applic 09/16/17 10:00 09/16/17 12:35 Benadryl 2% Cream TP Not Given DAILY LANE Impression 1. ANNA 2. HTN urgency/emergency 3. hyperkalemia 4. hyponatremia 5. autism 6. hx of seizure 7. anemia 8. CKD 9. lactic acidosis improving 10. thrombocytopenia 11. hyperkalemia 12. pleural effusion 13. acute resp failure requiring intubation 14. ESRD Plan - cont current meds - HD tomorrow in am before OR - discussed with medical team - discussed plan with his mother - low potassium diet - will need another IV Dr Velasquez
[2017-09-16] MEDS ORDERED: SODIUM CHLORIDE 250 ML IV PRN (16:52)
[2017-09-16] MEDS ORDERED: PT OWN MED DRAWER 7, Y5N ONE (17:30)
[2017-09-16] MEDS: SEVELAMER CARBONATE 800 MG TAB (FP) PO SCH (17:59)
[2017-09-16] MEDS: CHLORHEXIDINE GLUCONATE 4% CLEANSER FOR DECOLONIZATION TP SCH (21:58)
[2017-09-16] MEDS: diphenhydrAMINE HCL 25 MG CAPSULE (FP) PO PRN (21:58)
[2017-09-17] MEDS: LABETALOL HCL 200 MG TABLET (FP) PO SCH ×3 (06:26→22:35)
[2017-09-17] MEDS: hydrALAZINE HCL 50 MG TABLET (FP) PO SCH ×3 (06:26→22:35)
[2017-09-17] MEDS: MAG HYDROX/ALH/SMC/DPHA/LIDO 240 ML MOUTHWASH MM SCH ×3 (06:27→17:00)
[2017-09-17] MEDS: NYSTATIN 100,000 UNIT/GM TOPICAL CREAM 15 GM TUBE TP SCH ×3 (06:30→13:36)
[2017-09-17 06:58] LABS: HEMATOCRIT 26.9 % (35.4-49); HEMOGLOBIN 9.1 GM/dL (11.7-16.9); MCH 29.5 pg (25.7-33.7); MEAN CELL VOLUME 86.9 fl (80-96); MEAN PLT VOLUME 6.8 fl (7.5-11.1); PLATELET COUNT 441 K/MM3 (134-434); RDW 15.4 % (11.9-15.9); WHITE BLOOD COUNT 8.9 K/mm3 (4.0-10.0)
[2017-09-17 07:13] LABS: INR 1.03 (0.82-1.09); PROTHROMBIN TIME (PATIENT) 11.6 SEC (9.98-11.88)
[2017-09-17 07:15] LABS: ACTIVATED PTT 28.8 SECONDS (26.9-34.4)
[2017-09-17 07:22] LABS: ANION GAP 7 (8-16); BLOOD UREA NITROGEN 51 mg/dL (7-18); CALCIUM 8.6 mg/dL (8.5-10.1); CHLORIDE 100 mmol/L (98-107); CO2 30 mmol/L (21-32); GLUCOSE,RANDOM 97 mg/dL (74-106); MAGNESIUM 2.1 mg/dL (1.8-2.4); PHOSPHOROUS 8.1 mg/dL (2.5-4.9); POTASSIUM 4.9 mmol/L (3.5-5.1); SODIUM 137 mmol/L (136-145)
--- NOTE | 2017-09-17 07:29 | PN ---
Physical Exam: SUBJECTIVE: Patient seen and examined s/p bronchoscopy, left VATS, drainage of effusion, pneumolysis earlier today OBJECTIVE: Vital Signs Period Temp Pulse Resp BP Sys/Mora Pulse Ox Last 24 Hr 98.2 F-99.7 F 95-116 16-20 130-168/73-93 94-96 General/Neuro: intubated, sedated CV: S1, S2, rrr Pulm: CTA Ext: trace bilateral edema Abd: soft, not tender, not distended Active Medications Generic Name Dose Route Start Last Admin Trade Name Freq PRN Reason Stop Dose Admin Acetaminophen 650 mg 09/01/17 17:04 09/16/17 13:12 Tylenol - PO 650 mg Q6H PRN Administration fever Albuterol/Ipratropium 1 amp 09/12/17 11:44 09/14/17 21:24 Duoneb - NEB 1 amp RQID PRN Administration SHORT OF BREATH/WHEEZING Amino Acids 30 ml 09/03/17 16:15 09/16/17 09:26 Prosource No Carb Liquid Pkt NGT [address] Administration Chlorhexidine Gluconate 1 applic 08/29/17 22:00 09/16/17 21:58 Hibiclens For Decolonization - TP [address] Administration Diphenhydramine HCl 25 mg 09/15/17 09:52 09/16/17 21:58 Benadryl - PO 25 mg Q6H PRN Administration FOR ITCHING Docusate Sodium 100 mg 09/04/17 10:00 Colace Liquid - NGT TID PRN CONSTIPATION Epoetin Mir 4,000 unit 09/17/17 09:00 Epogen - IVPUSH 09/17/17 09:01 ONCE ONE Hydralazine HCl 100 mg 09/14/17 14:00 09/17/17 06:26 Apresoline - PO Not Given TID LANE Hydrocortisone 1 applic 09/16/17 10:00 09/16/17 12:34 Anusol 2.5% Hc Cream - TP Not Given DAILY LANE Sodium Chloride 250 mls @ 3,000 mls/hr 09/15/17 13:42 Normal Saline - IV 09/16/17 13:42 PRN PRN Hypotension during Dialysis Sodium Chloride 250 mls @ 3,000 mls/hr 09/16/17 16:52 Normal Saline - IV 09/17/17 16:52 PRN PRN Hypotension during Dialysis Isosorbide Mononitrate 30 mg 09/15/17 10:00 09/16/17 09:25 Imdur - PO [address] Administration Labetalol HCl 200 mg 09/15/17 09:10 Normodyne - PO Q2H PRN HYPERTENSION Labetalol HCl 400 mg 09/15/17 14:00 09/17/17 06:26 Normodyne - PO Not Given TID LANE Lacosamide 100 mg 09/10/17 22:00 09/16/17 21:57 Vimpat - PO [address] Administration Lidocaine/Aluminum/Magnesium/Simeth 5 ml 09/12/17 00:00 09/17/17 06:27 Magic Mouthwash *Sjr Formula* - MM Not Given Q6HPO LANE Multivit/Ca Carb/B Cmplx/FA/Prenat 1 tablet 09/13/17 10:00 09/16/17 09:25 Nephro-Claudia - PO [address] Administration Nifedipine 90 mg 09/16/17 10:00 09/16/17 22:02 Procardia Xl - PO [address] Administration Nystatin 1 applic 09/15/17 06:00 09/17/17 06:30 Mycostatin Cream - TP [address] Administration Sevelamer Carbonate 800 mg 09/16/17 17:30 09/16/17 17:59 Renvela - PO [address] Administration Zinc Acetate/Diphenhydramine 1 applic 09/16/17 10:00 09/16/17 12:35 Benadryl 2% Cream TP Not Given DAILY [facility] ASSESSMENT/PLAN 22 year-old male with PMH significant for HTN, autism, and epilepsy. Admitted for pneumonia, ANNA, hypertensive emergency. Hospital course complicated by acute respiratory failure, requiring intubation and emergent HD. Left pleural effusion with loculation --s/p thoracentesis 09/02, pigtail 09/04, bronchoscopy/left VATS/drainage of effusion/pneumolysis today; multiple pockets with fibrinous exudate, ~500cc's in chest; lung expanded well --remains intubated Severe sepsis secondary to pneumonia --no fever, no leukocytosis --completed 10 days of Zosyn --observe off antibiotics --duonebs ANNA on HD - HD today before VATS - Epo with HD - renal biopsy planned after VATS Severe, refractory hypertension --contine labetolol, nifedipine, hydralazine, Imdur Epilepsy --continue Vimpat FEN Fluids: PO intake adequate Electrolytes: replete as indicated Nutrition: low sodium DVT prophylaxis: SCDs Dispo: continues to require ICU level care. Full code. Visit type - Emergency Visit Emergency Visit: Yes ED Registration Date: 08/29/17 Care time: The patient presented to the Emergency Department on the above date and was hospitalized for further evaluation of their emergent condition. - New Patient This patient is new to me today: No - Critical Care Critical Care patient: Yes Total Critical Care Time (in minutes): 35 Critical Care Statement: The care of this patient involved high complexity decision making to prevent further life threatening deterioration of the patient 's condition and/or to evaluate & treat vital organ system(s) failure or risk of failure.
[2017-09-17 07:54] LABS: CREATININE 9.1 mg/dL (0.7-1.3)
[2017-09-17] MEDS: NIFEdipine E.R. 90 MG TABLET (FP) PO SCH ×3 (08:02→22:35)
[2017-09-17] MEDS: LACOSAMIDE 50 MG TABLET PO SCH ×2 (08:02→11:08)
[2017-09-17] MEDS: ISOSORBIDE MONONITRATE 30 MG TAB.SR.24H (FP) PO SCH ×2 (08:02→11:07)
[2017-09-17] MEDS ORDERED: EPOETIN ALFA 2,000 UNIT/1 ML VIAL IVPUSH ONE (09:00)
--- NOTE | 2017-09-17 09:08 | PN ---
Progress Note, Physician Chief Complaint: HTN emergency History of Present Illness: bp remains controlled. he has been calm, relatively little agitation per mom. no visible discomfort or sob (nonverbal) no cigs - Current Medication List Current Medications: Active Medications Acetaminophen (Tylenol -) 650 mg PO Q6H PRN PRN Reason: fever Last Admin: 09/16/17 13:12 Dose: 650 mg Albuterol/Ipratropium (Duoneb -) 1 amp NEB RQID PRN PRN Reason: SHORT OF BREATH/WHEEZING Last Admin: 09/14/17 21:24 Dose: 1 amp Amino Acids (Prosource No Carb Liquid Pkt) 30 ml NGT DAILY [facility] Last Admin: 09/16/17 09:26 Dose: 30 ml Chlorhexidine Gluconate (Hibiclens For Decolonization -) 1 applic TP HS [facility] Last Admin: 09/16/17 21:58 Dose: 1 applic Diphenhydramine HCl (Benadryl -) 25 mg PO Q6H PRN PRN Reason: FOR ITCHING Last Admin: 09/16/17 21:58 Dose: 25 mg Docusate Sodium (Colace Liquid -) 100 mg NGT TID PRN PRN Reason: CONSTIPATION Hydralazine HCl (Apresoline -) 100 mg PO TID [facility] Last Admin: 09/17/17 06:26 Dose: Not Given Hydrocortisone (Anusol 2.5% Hc Cream -) 1 applic TP DAILY [facility] Last Admin: 09/16/17 12:34 Dose: Not Given Sodium Chloride (Normal Saline -) 250 mls @ 3,000 mls/hr IV PRN PRN PRN Reason: Hypotension during Dialysis Stop: 09/16/17 13:42 Sodium Chloride (Normal Saline -) 250 mls @ 3,000 mls/hr IV PRN PRN PRN Reason: Hypotension during Dialysis Stop: 09/17/17 16:52 Isosorbide Mononitrate (Imdur -) 30 mg PO DAILY [facility] Last Admin: 09/17/17 08:02 Dose: 30 mg Labetalol HCl (Normodyne -) 200 mg PO Q2H PRN PRN Reason: HYPERTENSION Last Admin: 09/17/17 08:03 Dose: 200 mg Labetalol HCl (Normodyne -) 400 mg PO TID [facility] Last Admin: 09/17/17 06:26 Dose: Not Given Lacosamide (Vimpat -) 100 mg PO BID [facility] Last Admin: 09/17/17 08:02 Dose: 100 mg Lidocaine/Aluminum/Magnesium/Simeth (Magic Mouthwash *Sjr Formula* -) 5 ml MM Q6HPO [facility] Last Admin: 09/17/17 06:27 Dose: Not Given Multivit/Ca Carb/B Cmplx/FA/Prenat (Nephro-Claudia -) 1 tablet PO DAILY [facility] Last Admin: 09/16/17 09:25 Dose: 1 tablet Nifedipine (Procardia Xl -) 90 mg PO BID [facility] Last Admin: 09/17/17 08:02 Dose: 90 mg Nystatin (Mycostatin Cream -) 1 applic TP Q6HPO [facility] Last Admin: 09/17/17 06:30 Dose: 1 applic Sevelamer Carbonate (Renvela -) 800 mg PO TIDCM [facility] Last Admin: 09/16/17 17:59 Dose: 800 mg Zinc Acetate/Diphenhydramine (Benadryl 2% Cream) 1 applic TP DAILY [facility] Last Admin: 09/16/17 12:35 Dose: Not Given - Objective Vital Signs: Vital Signs Temperature 98.5 F 09/17/17 06:40 Pulse Rate 111 H 09/17/17 07:45 Respiratory Rate 18 09/17/17 07:45 Blood Pressure 173/114 09/17/17 07:45 O2 Sat by Pulse Oximetry (%) 96 09/16/17 23:09 Constitutional: Yes: No Distress, Calm Eyes: No: Sclera Icterus HENT: No: Nasal Congestion Cardiovascular: Yes: Regular Rate and Rhythm, S1, S2, Other (PMI non diplaced). No: Gallop, Murmur Respiratory: Yes: CTA Bilaterally, Diminished (L lung). No: Accessory Muscle Use, Rales, Wheezes Gastrointestinal: Yes: Normal Bowel Sounds, Soft. No: Tenderness Musculoskeletal: Yes: Other (No kyphosis) Extremities: No: Cold, Cyanosis Edema: No Integumentary: No: Jaundice Neurological: Yes: Alert. No: Seizure Psychiatric: No: Agitated Labs: CBC, BMP 09/17/17 06:45 09/17/17 06:45 INR, PTT INR 1.03 (0.82-1.09) 09/17/17 06:45 Fibrinogen 579.0 mg/dL (238-498) H 08/29/17 20:00 Assessment/Plan echo 08/2017: nl lv/rv, no sig valve path cxr: left eff tele: NSR a/p: 22 m hx autism, seizures, possible underlying ckd/htn here with ams, respiratory failure/sepsis, anna requiring HD and hypertensive urgency. Cardiac course complicated by mild troponin elevation and prolonged qtc. 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 was uncontrolled when here 12/11 for seizure, with agitation then--no BP checked since that discharge she says -has had difficult to control BP here, requiring nifedipine and labetalol drips (the latter up to 2mg/min, i.e. 2800 mg/day, without good bp control) 09/14: increased hydralzine to 100 tid and add imdur 30 qd -09/15: BP severely elevated again this am (220/100). change nifedip 120 qd to 90 bid to cover overnight/early AM bp's (very short-acting med). change coreg to labetalol 400 TID for greater potency (with prn PO doses ordered), will likely need closer to 600-800 TID labetlol, will titrate up as needed -BP much improved, continue current regimen (nifedipine 90 bid, hydral 100 tid, labetalol 400 TID, imdur 30) -try to cut down nifedipine dose (to 60 bid) +/- hydralazine dose later, if bp remains well controlled. -deferring RAAS-blockers for now given ANNA with renal w/u ongoing -consider clonidine patch next, for consistent 24 hr drug coverage vs minoxidil anna requiring HD: -creat 2.1 here in november, ? no prior w/u per mother -suspect hypertensive renal failure, progressive since then, though possible causality in other direction (no MD f/u since november, per mother) -renal eval in progress, planned for biopsy -currently getting HD here abnormal troponins - flat trend, with intermediate range values - secondary to sepsis myocardial injury, vs demand ischemia (severe HTN, with tachycardia to 120s-130s). no clinical findings to support acs here. anemia: -chronic, mgm't per primary team respiratory failure s/p intubation, pleural effusion - with white out of left lung - 09/04 s/p chest tube placement. - plan per critical care/thoracic surgery--for vats/decortication on sunday.
[2017-09-17] MEDS: SEVELAMER CARBONATE 800 MG TAB (FP) PO SCH ×3 (09:15→17:00)
[2017-09-17] MEDS: VITAMIN B COMP W-C 1 EA TABLET PO SCH (09:15)
[2017-09-17] MEDS: AMINO ACIDS/PROTEIN HYDROLYS 30 ML LIQUID.PKT NGT SCH (09:15)
[2017-09-17] MEDS ORDERED: PT OWN MED DRAWER 7, Y5N ONE (09:20)
[2017-09-17] MEDS ORDERED: LIDOCAINE 1%/EPI 1:100000 (20 ML MULTI DOSE VIAL) ONE (10:49)
[2017-09-17] MEDS ORDERED: BUPIVACAINE HCL/PF 0.25% (2.5MG/ML) 10 ML VIAL ONE (10:49)
[2017-09-17] MEDS: HYDROCORTISONE 2.5% TOPICAL CREAM 30 GM TUBE TP SCH (11:07)
--- NOTE | 2017-09-17 11:19 | PN ---
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 Pt on pureed diet/honey thick liquid. May be able to be upgraded.MBs was recommended but was unable to go down to xray. To follow.
[2017-09-17] MEDS ORDERED: ROCURONIUM BROMIDE 50 MG/5 ML VIAL ONE ×4 (11:35→13:49)
[2017-09-17] MEDS ORDERED: MIDAZOLAM HCL 2 MG/2 ML SINGLE DOSE VIAL ONE ×8 (11:35→14:15)
[2017-09-17] MEDS ORDERED: ETOMIDATE 20 MG/10 ML AMPUL IVPUSH ONE (11:35)
--- NOTE | 2017-09-17 11:56 | PN ---
Physical Exam: SUBJECTIVE: Per mother at bedside and nurse, no acute overnight event. OBJECTIVE: Vital Signs Period Temp Pulse Resp BP Sys/Mora Pulse Ox Last 24 Hr 98 F-99.7 F 95-116 16-20 130-173/61-114 96-97 GENERAL: autistic, lying in bed watching video, in NAD HEENT: PEARRLA LUNGS: dimished left lung sound, L chest tube in place HEART: tachycardia, RRR no murmurs ABDOMEN: soft, NT, ND EXTREMITIES: 2+ pulses, warm, well-perfused, no edema in all 4 extremities Laboratory Results - last 24 hr 09/17/17 09/17/17 09/17/17 06:45 06:45 06:45 WBC 8.9 RBC 3.10 L Hgb 9.1 L Hct 26.9 L MCV 86.9 MCH 29.5 MCHC 34.0 RDW 15.4 Plt Count 441 H MPV 6.8 L PT with INR 11.60 INR 1.03 PTT (Actin FS) 28.8 Sodium 137 Potassium 4.9 Chloride 100 Carbon Dioxide 30 Anion Gap 7 L BUN 51 H D Creatinine 9.1 H* D Random Glucose 97 Calcium 8.6 Phosphorus 8.1 H D Magnesium 2.1 Blood Type Antibody Screen 09/17/17 06:45 WBC RBC Hgb Hct MCV MCH MCHC RDW Plt Count MPV PT with INR INR PTT (Actin FS) Sodium Potassium Chloride Carbon Dioxide Anion Gap BUN Creatinine Random Glucose Calcium Phosphorus Magnesium Blood Type O POSITIVE Antibody Screen Negative Active Medications Generic Name Dose Route Start Last Admin Trade Name Freq PRN Reason Stop Dose Admin Acetaminophen 650 mg 09/01/17 17:04 09/16/17 13:12 Tylenol - PO 650 mg Q6H PRN Administration fever Amino Acids 30 ml 09/03/17 16:15 09/17/17 09:15 Prosource No Carb Liquid Pkt NGT Not Given DAILY LANE Chlorhexidine Gluconate 1 applic 08/29/17 22:00 09/16/17 21:58 Hibiclens For Decolonization - TP [address] Administration Diphenhydramine HCl 25 mg 09/15/17 09:52 09/16/17 21:58 Benadryl - PO 25 mg Q6H PRN Administration FOR ITCHING Docusate Sodium 100 mg 09/04/17 10:00 Colace Liquid - NGT TID PRN CONSTIPATION Hydralazine HCl 100 mg 09/14/17 14:00 09/17/17 06:26 Apresoline - PO Not Given TID [facility] Hydrocortisone 1 applic 09/16/17 10:00 09/17/17 11:07 Anusol 2.5% Hc Cream - TP Not Given DAILY [facility] Sodium Chloride 250 mls @ 3,000 mls/hr 09/15/17 13:42 Normal Saline - IV 09/16/17 13:42 PRN PRN Hypotension during Dialysis Sodium Chloride 250 mls @ 3,000 mls/hr 09/16/17 16:52 Normal Saline - IV 09/17/17 16:52 PRN PRN Hypotension during Dialysis Isosorbide Mononitrate 30 mg 09/15/17 10:00 09/17/17 11:07 Imdur - PO Not Given DAILY [facility] Labetalol HCl 200 mg 09/15/17 09:10 09/17/17 08:03 Normodyne - PO 200 mg Q2H PRN Administration HYPERTENSION Labetalol HCl 400 mg 09/15/17 14:00 09/17/17 06:26 Normodyne - PO Not Given TID [facility] Lacosamide 100 mg 09/10/17 22:00 09/17/17 11:08 Vimpat - PO Not Given BID [facility] Lidocaine/Aluminum/Magnesium/Simeth 5 ml 09/12/17 00:00 09/17/17 06:27 Magic Mouthwash *Sjr Formula* - MM Not Given Q6HPO [facility] Multivit/Ca Carb/B Cmplx/FA/Prenat 1 tablet 09/13/17 10:00 09/17/17 09:15 Nephro-Claudia - PO Not Given DAILY [facility] Nifedipine 90 mg 09/16/17 10:00 09/17/17 11:07 Procardia Xl - PO Not Given BID [facility] Nystatin 1 applic 09/15/17 06:00 09/17/17 06:30 Mycostatin Cream - TP [address] Administration Sevelamer Carbonate 800 mg 09/16/17 17:30 09/17/17 09:15 Renvela - PO Not Given TIDCM [facility] Zinc Acetate/Diphenhydramine 1 applic 09/16/17 10:00 09/17/17 11:07 Benadryl 2% Cream TP Not Given DAILY LANE ASSESSMENT/PLAN: 22 yo M in ICU for severe sepsis, refractory hypertension, ANNA, and L pleural effusion with loculations. L pleural effusion - with multiple loculations - For VATS today ANNA - s/p HD today AM - biopsy when stable Refractory HTN - Improving - Cont. procardia XL 90mg bid, hydralazine 100mg tid, imdur 30mg QD, labetalol 300mg TID Severe sepsis - 2/2 PNA - Resolved Epilepsy - Continue Vimpat DVT prophylaxis - SCDs Dispo - Cont. to monitor in ICU Lawrence Ricardo PGY2 Pager: [phone] Visit type - Emergency Visit Emergency Visit: No - New Patient This patient is new to me today: No - Critical Care Critical Care patient: Yes Total Critical Care Time (in minutes): 35 Critical Care Statement: The care of this patient involved high complexity decision making to prevent further life threatening deterioration of the patient 's condition and/or to evaluate & treat vital organ system(s) failure or risk of failure.
--- NOTE | 2017-09-17 12:02 | PN ---
Teaching Attending Note Name of Resident: Lawrence Ricardo ATTENDING PHYSICIAN STATEMENT I saw and evaluated the patient. I reviewed the resident's note and discussed the case with the resident. I agree with the resident's findings and plan as documented. SUBJECTIVE: Pt seen and examined in the ICU. Awake, alert. Minimal drainage from chest tube. For OR today. OBJECTIVE: Last Vital Signs Temp Pulse Resp BP Pulse Ox 98 F 100 H 18 136/77 97 09/17/17 08:00 09/17/17 10:00 09/17/17 10:00 09/17/17 10:00 09/17/17 10:00 Intake & Output 09/14/17 09/15/17 09/16/17 09/17/17 23:59 23:59 23:59 23:59 Intake Total 240 640 700 Output Total 10 50 50 20 Balance 230 590 650 -20 Weight 81.6 kg 80.739 kg 78.698 kg 80.4 kg Gen: NAD at rest Heart: RRR, +murmur Lung: decreased breath sounds at the bases Abd: soft, nontender Ext: + edema CBC, BMP 09/17/17 06:45 09/17/17 06:45 Active Medications Acetaminophen (Tylenol -) 650 mg PO Q6H PRN PRN Reason: fever Last Admin: 09/16/17 13:12 Dose: 650 mg Amino Acids (Prosource No Carb Liquid Pkt) 30 ml NGT DAILY [facility] Last Admin: 09/17/17 09:15 Dose: Not Given Chlorhexidine Gluconate (Hibiclens For Decolonization -) 1 applic TP HS [facility] Last Admin: 09/16/17 21:58 Dose: 1 applic Diphenhydramine HCl (Benadryl -) 25 mg PO Q6H PRN PRN Reason: FOR ITCHING Last Admin: 09/16/17 21:58 Dose: 25 mg Docusate Sodium (Colace Liquid -) 100 mg NGT TID PRN PRN Reason: CONSTIPATION Hydralazine HCl (Apresoline -) 100 mg PO TID [facility] Last Admin: 09/17/17 06:26 Dose: Not Given Hydrocortisone (Anusol 2.5% Hc Cream -) 1 applic TP DAILY [facility] Last Admin: 09/17/17 11:07 Dose: Not Given Sodium Chloride (Normal Saline -) 250 mls @ 3,000 mls/hr IV PRN PRN PRN Reason: Hypotension during Dialysis Stop: 09/16/17 13:42 Sodium Chloride (Normal Saline -) 250 mls @ 3,000 mls/hr IV PRN PRN PRN Reason: Hypotension during Dialysis Stop: 09/17/17 16:52 Isosorbide Mononitrate (Imdur -) 30 mg PO DAILY [facility] Last Admin: 09/17/17 11:07 Dose: Not Given Labetalol HCl (Normodyne -) 200 mg PO Q2H PRN PRN Reason: HYPERTENSION Last Admin: 09/17/17 08:03 Dose: 200 mg Labetalol HCl (Normodyne -) 400 mg PO TID [facility] Last Admin: 09/17/17 06:26 Dose: Not Given Lacosamide (Vimpat -) 100 mg PO BID [facility] Last Admin: 09/17/17 11:08 Dose: Not Given Lidocaine/Aluminum/Magnesium/Simeth (Magic Mouthwash *Sjr Formula* -) 5 ml MM Q6HPO [facility] Last Admin: 09/17/17 06:27 Dose: Not Given Multivit/Ca Carb/B Cmplx/FA/Prenat (Nephro-Claudia -) 1 tablet PO DAILY [facility] Last Admin: 09/17/17 09:15 Dose: Not Given Nifedipine (Procardia Xl -) 90 mg PO BID [facility] Last Admin: 09/17/17 11:07 Dose: Not Given Nystatin (Mycostatin Cream -) 1 applic TP Q6HPO [facility] Last Admin: 09/17/17 06:30 Dose: 1 applic Sevelamer Carbonate (Renvela -) 800 mg PO TIDCM [facility] Last Admin: 09/17/17 09:15 Dose: Not Given Zinc Acetate/Diphenhydramine (Benadryl 2% Cream) 1 applic TP DAILY [facility] Last Admin: 09/17/17 11:07 Dose: Not Given ASSESSMENT AND PLAN: Hypertensive Urgency Acute Kidney Injury requiring HD Acute Hypoxic Respiratory Failure improving Pneumonia Loculated Pleural Effusion Hyponatremia improving Severe Sepsis resolving Lactic Acidosis resolved Thrombocytopenia improved Anemia Autism - monitoring off antibiotics - for OR today for L VATS - HD per renal with ultrafiltration - monitor H/H - monitor urine output, creatinine - renal biopsy when stable - BP control - taper Fio2 to keep Spo2 >90% - PO as tolerated - DVT/GI prophylaxis - continue ICU monitoring post op critical care time spent in reviewing chart, evaluating patient and formulating plan 35 min
[2017-09-17] MEDS ORDERED: fentaNYL CITRATE 250 MCG/5 ML VIAL ONE (12:04)
[2017-09-17] MEDS ORDERED: PROPOFOL 20 ML ONE (12:12)
[2017-09-17] MEDS ORDERED: CLINDAMYCIN PHOSPHATE 600 MG/4 ML VIAL IVPB ONE (12:30)
[2017-09-17] MEDS ORDERED: BUPIVACAINE HCL/PF 0.25% (2.5MG/ML) 10 ML VIAL IJ ONE (12:50)
[2017-09-17] MEDS ORDERED: LIDOCAINE 1%/EPI 1:100000 (50 ML MULTI DOSE VIAL) INF ONE (12:50)
[2017-09-17] MEDS ORDERED: CLINDAMYCIN PHOSPHATE 600 MG/4 ML VIAL ONE (13:16)
--- NOTE | 2017-09-17 13:30 | PN ---
Progress Note, Physician History of Present Illness: Pt seen and examined at bedside. He is going to OR today. - Current Medication List Current Medications: Active Medications Acetaminophen (Tylenol -) 650 mg PO Q6H PRN PRN Reason: fever Last Admin: 09/16/17 13:12 Dose: 650 mg Amino Acids (Prosource No Carb Liquid Pkt) 30 ml NGT DAILY [facility] Last Admin: 09/17/17 09:15 Dose: Not Given Chlorhexidine Gluconate (Hibiclens For Decolonization -) 1 applic TP HS [facility] Last Admin: 09/16/17 21:58 Dose: 1 applic Diphenhydramine HCl (Benadryl -) 25 mg PO Q6H PRN PRN Reason: FOR ITCHING Last Admin: 09/16/17 21:58 Dose: 25 mg Docusate Sodium (Colace Liquid -) 100 mg NGT TID PRN PRN Reason: CONSTIPATION Hydralazine HCl (Apresoline -) 100 mg PO TID [facility] Last Admin: 09/17/17 06:26 Dose: Not Given Hydrocortisone (Anusol 2.5% Hc Cream -) 1 applic TP DAILY [facility] Last Admin: 09/17/17 11:07 Dose: Not Given Sodium Chloride (Normal Saline -) 250 mls @ 3,000 mls/hr IV PRN PRN PRN Reason: Hypotension during Dialysis Stop: 09/16/17 13:42 Sodium Chloride (Normal Saline -) 250 mls @ 3,000 mls/hr IV PRN PRN PRN Reason: Hypotension during Dialysis Stop: 09/17/17 16:52 Isosorbide Mononitrate (Imdur -) 30 mg PO DAILY [facility] Last Admin: 09/17/17 11:07 Dose: Not Given Labetalol HCl (Normodyne -) 200 mg PO Q2H PRN PRN Reason: HYPERTENSION Last Admin: 09/17/17 08:03 Dose: 200 mg Labetalol HCl (Normodyne -) 400 mg PO TID [facility] Last Admin: 09/17/17 06:26 Dose: Not Given Lacosamide (Vimpat -) 100 mg PO BID [facility] Last Admin: 09/17/17 11:08 Dose: Not Given Lidocaine/Aluminum/Magnesium/Simeth (Magic Mouthwash *Sjr Formula* -) 5 ml MM Q6HPO [facility] Last Admin: 09/17/17 06:27 Dose: Not Given Multivit/Ca Carb/B Cmplx/FA/Prenat (Nephro-Claudia -) 1 tablet PO DAILY [facility] Last Admin: 09/17/17 09:15 Dose: Not Given Nifedipine (Procardia Xl -) 90 mg PO BID [facility] Last Admin: 09/17/17 11:07 Dose: Not Given Nystatin (Mycostatin Cream -) 1 applic TP Q6HPO [facility] Last Admin: 09/17/17 06:30 Dose: 1 applic Sevelamer Carbonate (Renvela -) 800 mg PO TIDCM [facility] Last Admin: 09/17/17 09:15 Dose: Not Given Zinc Acetate/Diphenhydramine (Benadryl 2% Cream) 1 applic TP DAILY [facility] Last Admin: 09/17/17 11:07 Dose: Not Given - Objective Vital Signs: Vital Signs Temperature 98 F 09/17/17 08:00 Pulse Rate 100 H 09/17/17 10:00 Respiratory Rate 18 09/17/17 10:00 Blood Pressure 136/77 09/17/17 10:00 O2 Sat by Pulse Oximetry (%) 97 09/17/17 10:00 Constitutional: Yes: Calm Eyes: Yes: Conjunctiva Clear HENT: Yes: Atraumatic Neck: Yes: Supple Cardiovascular: Yes: S1, S2 Respiratory: Yes: CTA Bilaterally Gastrointestinal: Yes: Soft Genitourinary: Yes: Incontinence Musculoskeletal: Yes: WNL Edema: No Neurological: Yes: Pre-Existing Deficit Labs: CBC, BMP 09/17/17 06:45 09/17/17 06:45 INR, PTT INR 1.03 (0.82-1.09) 09/17/17 06:45 Fibrinogen 558.0 mg/dL (238-498) H 09/17/17 06:45 Problem List - Problems (1) Acute renal failure Code(s): N17.9 - ACUTE KIDNEY FAILURE, UNSPECIFIED Qualifiers: Acute renal failure type: unspecified Qualified Code(s): N17.9 - Acute kidney failure, unspecified (2) Anemia Code(s): D64.9 - ANEMIA, UNSPECIFIED (3) Hyperkalemia Code(s): E87.5 - HYPERKALEMIA (4) Hypertensive urgency Code(s): I16.0 - HYPERTENSIVE URGENCY (5) Sepsis Code(s): A41.9 - SEPSIS, UNSPECIFIED ORGANISM Qualifiers: Sepsis type: sepsis due to unspecified organism Qualified Code(s): A41.9 - Sepsis, unspecified organism (6) Thrombocytopenia Code(s): D69.6 - THROMBOCYTOPENIA, UNSPECIFIED (7) Seizure Code(s): R56.9 - UNSPECIFIED CONVULSIONS Assessment/Plan Current Medications Generic Name Dose Route Start Last Admin Trade Name Freq PRN Reason Stop Dose Admin Acetaminophen 650 mg 09/01/17 17:04 09/16/17 13:12 Tylenol - PO 650 mg Q6H PRN Administration fever Amino Acids 30 ml 09/03/17 16:15 09/17/17 09:15 Prosource No Carb Liquid Pkt NGT Not Given DAILY LANE Chlorhexidine Gluconate 1 applic 08/29/17 22:00 09/16/17 21:58 Hibiclens For Decolonization - TP [address] Administration Diphenhydramine HCl 25 mg 09/15/17 09:52 09/16/17 21:58 Benadryl - PO 25 mg Q6H PRN Administration FOR ITCHING Docusate Sodium 100 mg 09/04/17 10:00 Colace Liquid - NGT TID PRN CONSTIPATION Hydralazine HCl 100 mg 09/14/17 14:00 09/17/17 06:26 Apresoline - PO Not Given TID LANE Hydrocortisone 1 applic 09/16/17 10:00 09/17/17 11:07 Anusol 2.5% Hc Cream - TP Not Given DAILY LANE Sodium Chloride 250 mls @ 3,000 mls/hr 09/15/17 13:42 Normal Saline - IV 09/16/17 13:42 PRN PRN Hypotension during Dialysis Sodium Chloride 250 mls @ 3,000 mls/hr 09/16/17 16:52 Normal Saline - IV 09/17/17 16:52 PRN PRN Hypotension during Dialysis Isosorbide Mononitrate 30 mg 09/15/17 10:00 09/17/17 11:07 Imdur - PO Not Given DAILY LANE Labetalol HCl 200 mg 09/15/17 09:10 09/17/17 08:03 Normodyne - PO 200 mg Q2H PRN Administration HYPERTENSION Labetalol HCl 400 mg 09/15/17 14:00 09/17/17 06:26 Normodyne - PO Not Given TID [facility] Lacosamide 100 mg 09/10/17 22:00 09/17/17 11:08 Vimpat - PO Not Given BID [facility] Lidocaine/Aluminum/Magnesium/Simeth 5 ml 09/12/17 00:00 09/17/17 06:27 Magic Mouthwash *Sjr Formula* - MM Not Given Q6HPO [facility] Multivit/Ca Carb/B Cmplx/FA/Prenat 1 tablet 09/13/17 10:00 09/17/17 09:15 Nephro-Claudia - PO Not Given DAILY [facility] Nifedipine 90 mg 09/16/17 10:00 09/17/17 11:07 Procardia Xl - PO Not Given BID [facility] Nystatin 1 applic 09/15/17 06:00 09/17/17 06:30 Mycostatin Cream - TP 1 applic Q6HPO [facility] Administration Sevelamer Carbonate 800 mg 09/16/17 17:30 09/17/17 09:15 Renvela - PO Not Given TIDCM [facility] Zinc Acetate/Diphenhydramine 1 applic 09/16/17 10:00 09/17/17 11:07 Benadryl 2% Cream TP Not Given DAILY [facility] Impression 1. ANNA 2. HTN urgency/emergency 3. hyperkalemia 4. hyponatremia 5. autism 6. hx of seizure 7. anemia 8. CKD 9. lactic acidosis improving 10. thrombocytopenia 11. hyperkalemia 12. pleural effusion 13. acute resp failure requiring intubation 14. ESRD Plan - HD today - OR today with CTS - discussed with medical team - low potassium diet - will follow Dr Velasquez
--- NOTE | 2017-09-17 14:15 | OP ---
Operative Note - Note: Operative Date: 09/17/17 Pre-Operative Diagnosis: Loculated pleural effusion; pneumonia; acute renal failure; sepsis Operation: Bronchoscopy, left VATS, drainage of effusion, pneumolysis Findings: Bronchoscopy: no pus, minimal mucus, BAL sent VATS: multiple pockets with fibrinous exudate; ~500cc fluid in chest; left lower lobe and lingula adherent to mediastinum and diaphragm; free at end and lung expanded well. Surgeon: Yuval Ivy Anesthesiologist/BIOMEDICAL PHOTOGRAPHER: Inder Guerra Anesthesia: General Specimens Removed: BAL; pleural fluid; pleura; pleural contents Estimated Blood Loss (mls): 50 Drains & Tubes with Location: 2 pleural tubes Operative Report Dictated: Yes
[2017-09-17] MEDS: PROPOFOL 1,000,000 MCG/100 ML VIAL IVPB SCH ×3 (14:54→23:00)
[2017-09-17] MEDS ORDERED: hydrALAZINE HCL 20 MG/ML VIAL IVPUSH PRN (16:51)
--- NOTE | 2017-09-17 18:15 | OPR ---
Patient Name: Yanick El MR#: [id number] Procedure Date: 09/17/2017 Preoperative Diagnosis: 1. Loculated effusion; 2. Pneumonia; 3. Acute renal failure; 4. Sepsis; 5. Autism; 6. Hypertension. Postoperative Diagnosis: 1. Fibrinopurulent empyema; 2. Pneumonia; 3. Acute renal failure; 4. Sepsis; 5. Autism; 6. Hypertension. Procedure: Flexible bronchoscopy, left thoracoscopy, pneumolysis, drainage of effusion; intercostal nerve block 4th interspace to 8th interspace. Indication: as above Surgeon(s): Dr. Yuval Ivy Skein Winder: Medical students Anesthesia: General Endotracheal Wound Classification: Clean Antibiotic Prophylaxis: n/a Findings: Bronchoscopy with minimal secretions and Patient Name: Yanick El MR#: [id number] Procedure Date: 09/17/2017 Preoperative Diagnosis: 1. Loculated effusion; 2. Pneumonia; 3. Acute renal failure; 4. Sepsis; 5. Autism; 6. Hypertension. Postoperative Diagnosis: 1. Fibrinopurulent empyema; 2. Pneumonia; 3. Acute renal failure; 4. Sepsis; 5. Autism; 6. Hypertension. Procedure: Flexible bronchoscopy, left thoracoscopy, pneumolysis, drainage of effusion; intercostal nerve block 4th interspace to 8th interspace. Indication: as above Surgeon(s): Dr. Yuval Ivy Skein Winder: Medical students Anesthesia: General Endotracheal Wound Classification: Clean Antibiotic Prophylaxis: n/a Findings: Bronchoscopy with minimal secretions and no blood; VATS: lower lobe and lingula adherent to mediastinum and diaphragm; significant amounts of fibrinous exudate by diaphragm and posterior to lung; 500cc of pleural fluid drained. Specimens Sent: BAL cultures; pleural fluid cultures; pleural tissue for culture and pathology. Complications: none Drains / Tubes / Catheters: 2 left chest tubes Hardware / Implants: n/a Blood / Fluid Losses: 50cc Blood / Fluids Administered: per anesthesia Post-Operative Condition: stable, intubated to ICU Indications: This patient is a 22 year-old male with severe autism who presented with diarrhea, sepsis, and acute renal failure requiring an ICU admission 3 weeks ago. During his hospitalization he developed a pneumonia and loculated effusion. An IR drainage was done that initially resolved the effusion but it recurred and failed a second drainage. Dr. Monk and the ICU team consulted me for a thoracic surgery. I discussed the operation with his mother who gave an informed consent. All of her questions were answered regarding risks , benefits, and alternatives. Details of Procedure: The patient was taken into the operating room and placed supine on the table. He was monitored with pulse oximetry and blood pressure monitoring. Sequential compression devices were placed. He was given sedation and intubated with a single-lumen tube. I performed a bronchoscopy. There was no blood or pus in the airway. We sent cultures. We then placed a rosa. He was then positioned in the right lateral decubitus postion and the position of the tube was reconfirmed. His chest was prepared and draped in sterile fashion. We made 3 ports after giving local anesthesia. We performed pneumolysis and drained multiple loculated pockets. There were significant adhesions from the lower lobe to the diaphragm and from the lingula to the mediastinum. There were also adhesions of the left lung to the posterior mediastinum. All of these were lysed. We drained all fluid pockets. Multiple cultures were sent. We then performed an intercostal nerve block using the thoracoscope and local anesthesia above and below the three port sites. The chest was irrigated with warm saline. Next, we placed 2 chest tubes and expanded the lung after ensuring good hemostasis. The lower lobe and lingula expanded well. The chest tubes were secured. Sterile dressings were placed. The patient was transferred intubated to the ICU in hemodynamically stable condition. I will follow him until he leaves the hospital and then in my outpatient clinic. no blood; VATS: lower lobe and lingula adherent to mediastinum and diaphragm; significant amounts of fibrinous exudate by diaphragm and posterior to lung; 500cc of pleural fluid drained. Specimens Sent: BAL cultures; pleural fluid cultures; pleural tissue for culture and pathology. Complications: none Drains / Tubes / Catheters: 2 left chest tubes Hardware / Implants: n/a Blood / Fluid Losses: 50cc Blood / Fluids Administered: per anesthesia Post-Operative Condition: stable, intubated to ICU Indications: This patient is a 22 year-old male with severe autism who presented with diarrhea, sepsis, and acute renal failure requiring an ICU admission 3 weeks ago. During his hospitalization he developed a pneumonia and loculated effusion. An IR drainage was done that initially resolved the effusion but it recurred and failed a second drainage. Dr. Monk and the ICU team consulted me for a thoracic surgery. I discussed the operation with his mother who gave an informed consent. All of her questions were answered regarding risks , benefits, and alternatives. Details of Procedure: The patient was taken into the operating room and placed supine on the table. He was monitored with pulse oximetry and blood pressure monitoring. Sequential compression devices were placed. He was given sedation and intubated with a single-lumen tube. I performed a bronchoscopy. There was no blood or pus in the airway. We sent cultures. We then placed a rosa. He was then positioned in the right lateral decubitus postion and the position of the tube was reconfirmed. His chest was prepared and draped in sterile fashion. We made 3 ports after giving local anesthesia. We performed pneumolysis and drained multiple loculated pockets. There were significant adhesions from the lower lobe to the diaphragm and from the lingula to the mediastinum. There were also adhesions of the left lung to the posterior mediastinum. All of these were lysed. We drained all fluid pockets. Multiple cultures were sent. We then performed an intercostal nerve block using the thoracoscope and local anesthesia above and below the three port sites. The chest was irrigated with warm saline. Next, we placed 2 chest tubes and expanded the lung after ensuring good hemostasis. The lower lobe and lingula expanded well. The chest tubes were secured. Sterile dressings were placed. The patient was transferred intubated to the ICU in hemodynamically stable condition. I will follow him until he leaves the hospital and then in my outpatient clinic.
[2017-09-17] MEDS: CHLORHEXIDINE GLUCONATE 4% CLEANSER FOR DECOLONIZATION TP SCH (22:32)
[2017-09-17] MEDS: HEPARIN NA (PORCINE) 5,000 UNITS/ML 1ML VIAL SQ SCH (22:32)
[2017-09-17] MEDS: Lacosamide 200 MG/20 ML VIAL IVPB SCH (22:32)
[2017-09-18] MEDS: PROPOFOL 1,000,000 MCG/100 ML VIAL IVPB SCH ×2 (03:30→20:49)
[2017-09-18] MEDS: hydrALAZINE HCL 50 MG TABLET (FP) PO SCH ×3 (06:06→20:59)
[2017-09-18] MEDS: LABETALOL HCL 200 MG TABLET (FP) PO SCH ×3 (06:06→21:00)
[2017-09-18] MEDS: MAG HYDROX/ALH/SMC/DPHA/LIDO 240 ML MOUTHWASH MM SCH ×4 (06:07→18:53)
[2017-09-18] MEDS: NYSTATIN 100,000 UNIT/GM TOPICAL CREAM 15 GM TUBE TP SCH ×5 (06:07→20:49)
[2017-09-18 06:21] LABS: HEMOGLOBIN 8.3 GM/dL (11.7-16.9); MCH 30.2 pg (25.7-33.7); MCHC 34.6 g/dl (32.0-35.9); MEAN CELL VOLUME 87.4 fl (80-96); MEAN PLT VOLUME 7.5 fl (7.5-11.1); PLATELET COUNT 422 K/MM3 (134-434); RBC 2.75 M/mm3 (4.00-5.60); RDW 15.4 % (11.9-15.9); WHITE BLOOD COUNT 10.9 K/mm3 (4.0-10.0)
[2017-09-18 07:01] LABS: ANION GAP 5 (8-16); BLOOD UREA NITROGEN 30 mg/dL (7-18); CALCIUM 8.3 mg/dL (8.5-10.1); CHLORIDE 102 mmol/L (98-107); CO2 31 mmol/L (21-32); CREATININE 7.2 mg/dL (0.7-1.3); GLUCOSE,RANDOM 93 mg/dL (74-106); MAGNESIUM 2.1 mg/dL (1.8-2.4); POTASSIUM 5.4 mmol/L (3.5-5.1); SODIUM 138 mmol/L (136-145)
--- NOTE | 2017-09-18 07:51 | PN ---
Physical Exam: SUBJECTIVE: Patient seen and examined in ICU. Mother present. OBJECTIVE: Vital Signs Period Temp Pulse Resp BP Sys/Mora Pulse Ox Last 24 Hr 97.4 F-101 F 93-109 10-24 121-170/61-98 94-98 General/Neuro: intubated, sedated CV: S1, S2, rrr Pulm: CTA Ext: trace bilateral edema Abd: soft, not tender, not distended Laboratory Results - last 24 hr 09/17/17 09/17/17 09/17/17 06:45 06:45 06:45 WBC RBC Hgb Hct MCV MCH MCHC RDW Plt Count MPV PT with INR 11.60 INR 1.03 PTT (Actin FS) 28.8 Fibrinogen Sodium 137 Potassium 4.9 Chloride 100 Carbon Dioxide 30 Anion Gap 7 L BUN 51 H D Creatinine 9.1 H* D Random Glucose 97 Calcium 8.6 Phosphorus 8.1 H D Magnesium 2.1 Blood Type O POSITIVE Antibody Screen Negative 09/17/17 09/18/17 09/18/17 06:45 05:57 05:57 WBC 10.9 H RBC 2.75 L Hgb 8.3 L Hct 24.0 L MCV 87.4 MCH 30.2 MCHC 34.6 RDW 15.4 Plt Count 422 MPV 7.5 D PT with INR INR PTT (Actin FS) Fibrinogen 558.0 H Sodium 138 Potassium 5.4 H Chloride 102 Carbon Dioxide 31 Anion Gap 5 L BUN 30 H D Creatinine 7.2 H D Random Glucose 93 Calcium 8.3 L Phosphorus Magnesium 2.1 Blood Type Antibody Screen Active Medications Generic Name Dose Route Start Last Admin Trade Name Freq PRN Reason Stop Dose Admin Acetaminophen 650 mg 09/01/17 17:04 09/16/17 13:12 Tylenol - PO 650 mg Q6H PRN Administration fever Amino Acids 30 ml 09/03/17 16:15 09/17/17 09:15 Prosource No Carb Liquid Pkt NGT Not Given DAILY LANE Chlorhexidine Gluconate 1 applic 08/29/17 22:00 09/17/17 22:32 Hibiclens For Decolonization - TP [address] Administration Diphenhydramine HCl 25 mg 09/15/17 09:52 09/16/17 21:58 Benadryl - PO 25 mg Q6H PRN Administration FOR ITCHING Docusate Sodium 100 mg 09/04/17 10:00 Colace Liquid - NGT TID PRN CONSTIPATION Fentanyl 50 mcg 09/18/17 05:48 09/18/17 06:06 Sublimaze Injection - IVPUSH 09/19/17 05:59 50 mcg Q1H PRN Administration PAIN Heparin Sodium (Porcine) 5,000 unit 09/17/17 22:00 09/17/17 22:32 Heparin - SQ 5,000 unit BID [facility] Administration Hydralazine HCl 100 mg 09/14/17 14:00 09/18/17 06:06 Apresoline - PO Not Given TID [facility] Hydralazine HCl 10 mg 09/17/17 16:51 Apresoline Injection - IVPUSH Q4H PRN HYPERTENSION Hydrocortisone 1 applic 09/16/17 10:00 09/17/17 11:07 Anusol 2.5% Hc Cream - TP Not Given DAILY [facility] Sodium Chloride 250 mls @ 3,000 mls/hr 09/15/17 13:42 Normal Saline - IV 09/16/17 13:42 PRN PRN Hypotension during Dialysis Propofol 1,000,000 mcg in 100 mls @ 19.296 mls/hr 09/17/17 14:00 09/18/17 06: 30 Diprivan - IVPB 50 mcg/kg/min TITR LANE 24.12 mls/hr Protocol Titration 40 MCG/KG/MIN Isosorbide Mononitrate 30 mg 09/15/17 10:00 09/17/17 11:07 Imdur - PO Not Given DAILY [facility] Labetalol HCl 200 mg 09/15/17 09:10 09/17/17 08:03 Normodyne - PO 200 mg Q2H PRN Administration HYPERTENSION Labetalol HCl 400 mg 09/15/17 14:00 09/18/17 06:06 Normodyne - PO Not Given TID [facility] Lacosamide 100 mg 09/17/17 22:00 09/17/17 22:32 Vimpat Injection - IVPB 100 mg BID [facility] Administration Lidocaine/Aluminum/Magnesium/Simeth 5 ml 09/12/17 00:00 09/18/17 06:07 Magic Mouthwash *Sjr Formula* - MM Not Given Q6HPO [facility] Multivit/Ca Carb/B Cmplx/FA/Prenat 1 tablet 09/13/17 10:00 09/17/17 09:15 Nephro-Claudia - PO Not Given DAILY [facility] Nifedipine 90 mg 09/16/17 10:00 09/17/17 22:35 Procardia Xl - PO Not Given BID LANE Nystatin 1 applic 09/15/17 06:00 09/18/17 06:07 Mycostatin Cream - TP Not Given Q6HPO LANE Sevelamer Carbonate 800 mg 09/16/17 17:30 09/17/17 17:00 Renvela - PO Not Given TIDCM LANE Zinc Acetate/Diphenhydramine 1 applic 09/16/17 10:00 09/17/17 11:07 Benadryl 2% Cream TP Not Given DAILY [facility] ASSESSMENT/PLAN 22 year-old male with PMH significant for HTN, autism, and epilepsy. Admitted for pneumonia, ANNA, hypertensive emergency. Hospital course complicated by acute respiratory failure, requiring intubation and emergent HD. Hospital course further complicated by persistent left pleural effusion requiring VATS and pneumolysis on 09/17. Patient remains intubated post-procedure. Left pleural effusion with loculation --s/p thoracentesis 09/02; --s/p pigtail 09/04; --s/p bronchoscopy/left VATS/drainage of effusion/pneumolysis 09/17 --two chest tubes both draining serosnaguinous fluid; to stay in place until per CT surgery --plan to extubate later today Severe sepsis secondary to pneumonia --post-op fever 101 resolved --seen and evaluated again today by ID, continue to observe off antibiotics --duonebs ANNA on HD - HD yesterday - Epo with HD - renal biopsy planned Severe, refractory hypertension --better controlled --contine labetolol, nifedipine, hydralazine, Imdur Epilepsy --continue Vimpat DVT prophylaxis: SCDs Dispo: continues to require ICU level care. Full code. Visit type - Emergency Visit Emergency Visit: Yes ED Registration Date: 08/29/17 Care time: The patient presented to the Emergency Department on the above date and was hospitalized for further evaluation of their emergent condition. - New Patient This patient is new to me today: No - Critical Care Critical Care patient: Yes Total Critical Care Time (in minutes): 35 Critical Care Statement: The care of this patient involved high complexity decision making to prevent further life threatening deterioration of the patient 's condition and/or to evaluate & treat vital organ system(s) failure or risk of failure.
[2017-09-18] MEDS: SEVELAMER CARBONATE 800 MG TAB (FP) PO SCH ×3 (08:54→17:44)
--- NOTE | 2017-09-18 09:27 | PN ---
Progress Note (short form) - Note Progress Note: POD #1 - s/p VATs under GA. VSS. Pt. remains intubated and sedated - possibly to be extubated later today. No apparent anesthetic complications noted. Continue current care.
[2017-09-18] MEDS ORDERED: morphine CARPU-JECT 2 MG/1 ML DISP.SYRIN IVPUSH PRN (09:46)
[2017-09-18] MEDS: HEPARIN NA (PORCINE) 5,000 UNITS/ML 1ML VIAL SQ SCH ×2 (10:00→20:59)
[2017-09-18] MEDS: AMINO ACIDS/PROTEIN HYDROLYS 30 ML LIQUID.PKT NGT SCH (10:00)
[2017-09-18] MEDS: ISOSORBIDE MONONITRATE 30 MG TAB.SR.24H (FP) PO SCH (10:00)
[2017-09-18] MEDS: NIFEdipine E.R. 90 MG TABLET (FP) PO SCH ×2 (10:00→20:59)
[2017-09-18] MEDS: VITAMIN B COMP W-C 1 EA TABLET PO SCH (10:00)
[2017-09-18] MEDS: Lacosamide 200 MG/20 ML VIAL IVPB SCH (11:00)
--- NOTE | 2017-09-18 11:47 | PN ---
Progress Note (short form) - Note Progress Note: POD#1 Pt remains intubated on IV propofol. Vital Signs Period Temp Pulse Resp BP Sys/Mora Pulse Ox Last 24 Hr 97.4 F-101 F 10-109 10-24 121-142/74-96 94-98 CT #1: 250ml serosangrenous, no airleak CT #2: 200ml serosangreous, no airleak GEN: Pt intubated but arousable Lungs: CTA b/l anteriorly, dressing with small amount of serosangrenous drainage CV: RRR CBC, BMP 09/18/17 05:57 09/18/17 05:57 Microbiology 09/17/17 15:00 Pleural Fluid VANESSA Preparation - Preliminary 09/17/17 15:00 Pleural Fluid Fungal Culture - Preliminary 09/17/17 15:00 Pleural Fluid AFB Smear Concentration - Preliminary 09/17/17 15:00 Pleural Fluid Mycobacterial Culture - Preliminary 09/17/17 15:00 Lung - Left Lower Lobe VANESSA Preparation - Preliminary 09/17/17 15:00 Lung - Left Lower Lobe Fungal Culture - Preliminary 09/17/17 15:00 Lung - Left Lower Lobe AFB Smear Concentration - Preliminary 09/17/17 15:00 Lung - Left Lower Lobe Mycobacterial Culture - Preliminary 09/17/17 15:00 Bronchial Washings - Left Lower Lobe VANESSA Preparation - Preliminary 09/17/17 15:00 Bronchial Washings - Left Lower Lobe Fungal Culture - Preliminary 09/17/17 15:00 Bronchial Washings - Left Lower Lobe AFB Smear Concentration - Preliminary 09/17/17 15:00 Bronchial Washings - Left Lower Lobe Mycobacterial Culture - Preliminary
--- NOTE | 2017-09-18 11:49 | PN ---
Teaching Attending Note Name of Resident: Delilah Mathis ATTENDING PHYSICIAN STATEMENT I saw and evaluated the patient. I reviewed the resident's note and discussed the case with the resident. I agree with the resident's findings and plan as documented. SUBJECTIVE: Pt seen and examined in the ICU. s/p L VATS/pneumolysis. Remained intubated overnight. Placed on CPAP/PS 10/5 this AM but with low tidal volumes, mother reports nonverbal signs of pain. OBJECTIVE: Last Vital Signs Temp Pulse Resp BP Pulse Ox 99.4 F 10 L 23 124/88 95 09/18/17 06:00 09/18/17 10:09 09/18/17 10:06 09/18/17 10:00 09/18/17 10:09 Intake & Output 09/15/17 09/16/17 09/17/17 09/18/17 23:59 23:59 23:59 23:59 Intake Total 269 806 1555.4 184 Output Total 50 50 400 140 Balance 590 650 884.4 44 Weight 80.739 kg 78.698 kg 80.4 kg 79.288 kg Gen: intubated, sedated Heart: RRR Lung: scattered rhonchi Abd: soft, nontender Ext: + edema CBC, BMP 09/18/17 05:57 09/18/17 05:57 Active Medications Acetaminophen (Ofirmev Injection -) 1,000 mg IVPB Q6H PRN PRN Reason: PAIN LEVEL 1-5 Amino Acids (Prosource No Carb Liquid Pkt) 30 ml NGT DAILY [facility] Last Admin: 09/17/17 09:15 Dose: Not Given Chlorhexidine Gluconate (Hibiclens For Decolonization -) 1 applic TP HS [facility] Last Admin: 09/17/17 22:32 Dose: 1 applic Diphenhydramine HCl (Benadryl -) 25 mg PO Q6H PRN PRN Reason: FOR ITCHING Last Admin: 09/16/17 21:58 Dose: 25 mg Docusate Sodium (Colace Liquid -) 100 mg NGT TID PRN PRN Reason: CONSTIPATION Fentanyl (Sublimaze Injection -) 50 mcg IVPUSH Q1H PRN PRN Reason: PAIN Stop: 09/19/17 05:59 Last Admin: 09/18/17 06:06 Dose: 50 mcg Heparin Sodium (Porcine) (Heparin -) 5,000 unit SQ BID [facility] Last Admin: 09/17/17 22:32 Dose: 5,000 unit Hydralazine HCl (Apresoline -) 100 mg PO TID [facility] Last Admin: 09/18/17 06:06 Dose: Not Given Hydralazine HCl (Apresoline Injection -) 10 mg IVPUSH Q4H PRN PRN Reason: HYPERTENSION Sodium Chloride (Normal Saline -) 250 mls @ 3,000 mls/hr IV PRN PRN PRN Reason: Hypotension during Dialysis Stop: 09/16/17 13:42 Propofol (Diprivan -) 1,000,000 mcg in 100 mls @ 19.296 mls/hr IVPB TITR LANE; 40 MCG/KG/MIN PRN Reason: Protocol Last Titration: 09/18/17 06:30 Dose: 50 mcg/kg/min, 24.12 mls/hr Isosorbide Mononitrate (Imdur -) 30 mg PO DAILY [facility] Last Admin: 09/17/17 11:07 Dose: Not Given Labetalol HCl (Normodyne -) 200 mg PO Q2H PRN PRN Reason: HYPERTENSION Last Admin: 09/17/17 08:03 Dose: 200 mg Labetalol HCl (Normodyne -) 400 mg PO TID [facility] Last Admin: 09/18/17 06:06 Dose: Not Given Lacosamide (Vimpat Injection -) 100 mg IVPB BID [facility] Last Admin: 09/17/17 22:32 Dose: 100 mg Lidocaine/Aluminum/Magnesium/Simeth (Magic Mouthwash *Sjr Formula* -) 5 ml MM Q6HPO [facility] Last Admin: 09/18/17 06:07 Dose: Not Given Multivit/Ca Carb/B Cmplx/FA/Prenat (Nephro-Claudia -) 1 tablet PO DAILY [facility] Last Admin: 09/17/17 09:15 Dose: Not Given Nifedipine (Procardia Xl -) 90 mg PO BID [facility] Last Admin: 09/17/17 22:35 Dose: Not Given Nystatin (Mycostatin Cream -) 1 applic TP Q6HPO [facility] Last Admin: 09/18/17 06:07 Dose: Not Given Sevelamer Carbonate (Renvela -) 800 mg PO TIDCM [facility] Last Admin: 04/24/18 08:54 Dose: Not Given ASSESSMENT AND PLAN: Hypertensive Urgency Acute Kidney Injury requiring HD Acute Hypoxic Respiratory Failure improving Pneumonia Loculated Pleural Effusion s/p L VATS/pneumolysis Hyponatremia improving Severe Sepsis resolving Lactic Acidosis resolved Thrombocytopenia improved Anemia Autism - monitoring off antibiotics - pain control - HD per renal with ultrafiltration - monitor H/H - monitor urine output, creatinine - renal biopsy when stable - BP control - taper Fio2 to keep Spo2 >90% - spontaneous breathing trials as tolerated - hope to extubate in next 1-2 days - PO as tolerated - DVT/GI prophylaxis - continue ICU monitoring critical care time spent in reviewing chart, evaluating patient and formulating plan 35 min
--- NOTE | 2017-09-18 11:55 | PN ---
Physical Exam: SUBJECTIVE: Patient seen and examined in the ICU. Pt s/p Left VATS/pneumolysis yesterday. Pt extubated today. Pt remains afebrile. No events overnight. OBJECTIVE: Vital Signs Period Temp Pulse Resp BP Sys/Mora Pulse Ox Last 24 Hr 97.4 F-101 F 10-109 10- 121-142/74-96 94-98 GENERAL: Pt was successfully extubated today, in NAD. LUNGS: Diffuse rhonchi appreciated. [address], draining sangiunous fluid. HEART: Tachycardia, +S1/S2, no murmurs appreciated. ABDOMEN: Soft, nontender, nondistended, no guarding. EXTREMITIES: Warm, well-perfused. + edema. SKIN: Warm, dry, normal turgor, no rashes or lesions noted Laboratory Results - last 24 hr 09/17/17 09/18/17 09/18/17 06:45 05:57 05:57 WBC 10.9 H RBC 2.75 L Hgb 8.3 L Hct 24.0 L MCV 87.4 MCH 30.2 MCHC 34.6 RDW 15.4 Plt Count 422 MPV 7.5 D Fibrinogen 558.0 H Sodium 138 Potassium 5.4 H Chloride 102 Carbon Dioxide 31 Anion Gap 5 L BUN 30 H D Creatinine 7.2 H D Random Glucose 93 Calcium 8.3 L Magnesium 2.1 Active Medications Generic Name Dose Route Start Last Admin Trade Name Freq PRN Reason Stop Dose Admin Acetaminophen 1,000 mg 09/18/17 09:46 Ofirmev Injection - IVPB Q6H PRN PAIN LEVEL 1-5 Amino Acids 30 ml 09/03/17 16:15 09/17/17 09:15 Prosource No Carb Liquid Pkt NGT Not Given DAILY LANE Chlorhexidine Gluconate 1 applic 08/29/17 22:00 09/17/17 22:32 Hibiclens For Decolonization - TP [address] Administration Diphenhydramine HCl 25 mg 09/15/17 09:52 09/16/17 21:58 Benadryl - PO 25 mg Q6H PRN Administration FOR ITCHING Docusate Sodium 100 mg 09/04/17 10:00 Colace Liquid - NGT TID PRN CONSTIPATION Fentanyl 50 mcg 09/18/17 05:48 09/18/17 06:06 Sublimaze Injection - IVPUSH 09/19/17 05:59 50 mcg Q1H PRN Administration PAIN Heparin Sodium (Porcine) 5,000 unit 09/17/17 22:00 09/17/17 22:32 Heparin - SQ 5,[address] Administration Hydralazine HCl 100 mg 09/14/17 14:00 09/18/17 06:06 Apresoline - PO Not Given TID [facility] Hydralazine HCl 10 mg 09/17/17 16:51 Apresoline Injection - IVPUSH Q4H PRN HYPERTENSION Sodium Chloride 250 mls @ 3,000 mls/hr 09/15/17 13:42 Normal Saline - IV 09/16/17 13:42 PRN PRN Hypotension during Dialysis Propofol 1,000,000 mcg in 100 mls @ 19.296 mls/hr 09/17/17 14:00 09/18/17 06: 30 Diprivan - IVPB 50 mcg/kg/min TITR LANE 24.12 mls/hr Protocol Titration 40 MCG/KG/MIN Isosorbide Mononitrate 30 mg 09/15/17 10:00 09/17/17 11:07 Imdur - PO Not Given DAILY [facility] Labetalol HCl 200 mg 09/15/17 09:10 09/17/17 08:03 Normodyne - PO 200 mg Q2H PRN Administration HYPERTENSION Labetalol HCl 400 mg 09/15/17 14:00 09/18/17 06:06 Normodyne - PO Not Given TID [facility] Lacosamide 100 mg 09/17/17 22:00 09/17/17 22:32 Vimpat Injection - IVPB 100 mg BID [facility] Administration Lidocaine/Aluminum/Magnesium/Simeth 5 ml 09/12/17 00:00 09/18/17 06:07 Magic Mouthwash *Sjr Formula* - MM Not Given Q6HPO [facility] Multivit/Ca Carb/B Cmplx/FA/Prenat 1 tablet 09/13/17 10:00 09/17/17 09:15 Nephro-Leatha - PO Not Given DAILY [facility] Nifedipine 90 mg 09/16/17 10:00 09/17/17 22:35 Procardia Xl - PO Not Given BID [facility] Nystatin 1 applic 09/15/17 06:00 09/18/17 06:07 Mycostatin Cream - TP Not Given Q6HPO LANE Sevelamer Carbonate 800 mg 09/16/17 17:30 09/18/17 08:54 Renvela - PO Not Given TIDCM LANE IMAGIN09/18/17 CXR -> No PTX. Some increased density at Left base persists. 09/17/17 CXR -> apical Chest Tube in place and Left basilar Chest tube noted. No PTX. Bibasilar subsegmental atelectasis noted. Right apical pleural- parenchymal thickening noted. ASSESSMENT/PLAN: 22M with PMH of autism and seizure disorder, presents with severe htn, anemia, thrombocytopenia, leukocytosis, hyperkalemia, ANNA, admitted to ICU. # sepsis 2/2 pneumonia - leukocytosis mild today - pt afebrile - ID (Dr. Ayala) recs appreciated: observe off antibiotics # loculated Left pleural effusion - s/p Left VATS/pneumolysis on 09/17/[address] Ivy - POD #1 - post-op care per Dr. Ivy: Chest tubes to suction until - pain control with Fentanyl prn and Ofirmev prn - [address] draining sanguinous fluids, CXR much improved - f/u pleural fluid cultures # htn urgency - continue Labetalol TID (plus Labetalol po q2hr prn), Hydralazine TID (plus Hydralazine IVpush prn), Procardia, and Imdur - Cardiology (Dr. Morton) recs appreciated: deferring RAAS-blockers for now given ANNA with renal w/u ongoing - goal BP 120/80 # acute hypoxic respiratory failure - pt re-intubated for procedure 09/17/17 and extubated 09/18/17 (pt intubated and extubated 09/06/17) - continue Duoneb prn # ANNA - Nephrology (Dr. Velasquez) recs appreciated: pt received HD yesterday. 2/2 pt's hyperkalemia, pt scheduled to receive HD as well. - renal biopsy to be done once pt stable - IR can get biopsy if cleared by anesthesia - s/p permacath placement 09/10/17 - monitor Cr and UOP - continue Nephro-leatha and Renvela # anemia - pt s/p 4U PRBCs this hospitalization (with most recent unit on 09/10/17) - monitor CBC - monitor for overt s/s of bleeding # seizure - continue Vimpat # FEN - Fluids: held for now - Electrolytes: hyperkalemia noted, continue to monitor - Nutrition: advance as tolerated to previous diet (dysphagia puree with Magic Cup and Ensure chocolate pudding plus Prosource daily) # Prophylaxis - DVT ppx with Heparin BID Visit type - Emergency Visit Emergency Visit: Yes ED Registration Date: 08/29/17 Care time: The patient presented to the Emergency Department on the above date and was hospitalized for further evaluation of their emergent condition. - New Patient This patient is new to me today: No - Critical Care Critical Care patient: Yes Total Critical Care Time (in minutes): 40 Critical Care Statement: The care of this patient involved high complexity decision making to prevent further life threatening deterioration of the patient 's condition and/or to evaluate & treat vital organ system(s) failure or risk of failure.
--- NOTE | 2017-09-18 11:56 | PN ---
Progress Note (short form) - Note Progress Note: Thoracic Surgery: POD#[address]'s in, no bloody drainage or air-leak CXR improved Extubate when ready Improve analgesia CTs to suction until .
[2017-09-18] MEDS: ACETAMINOPHEN 1000 MG/100 ML VIAL (NON FORMULARY) IVPB PRN (12:00)
--- NOTE | 2017-09-18 13:29 | PN ---
Progress Note (short form) - Note Progress Note: Chief Complaint: HTN emergency History of Present Illness: s/p VATS yesterday. extubated. bp meds held for the most part yesterday and this morning due to surgery, intubation, etc... Now extubated, comfortable. no sob, pain. + chest tube x 2. no cigs Current Medications Acetaminophen (Ofirmev Injection -) 1,000 mg IVPB Q6H PRN PRN Reason: PAIN LEVEL 1-5 Amino Acids (Prosource No Carb Liquid Pkt) 30 ml NGT DAILY [facility] Last Admin: 09/17/17 09:15 Dose: Not Given Chlorhexidine Gluconate (Hibiclens For Decolonization -) 1 applic TP HS [facility] Last Admin: 09/17/17 22:32 Dose: 1 applic Diphenhydramine HCl (Benadryl -) 25 mg PO Q6H PRN PRN Reason: FOR ITCHING Last Admin: 09/16/17 21:58 Dose: 25 mg Docusate Sodium (Colace Liquid -) 100 mg NGT TID PRN PRN Reason: CONSTIPATION Fentanyl (Sublimaze Injection -) 50 mcg IVPUSH Q1H PRN PRN Reason: PAIN Stop: 09/19/17 05:59 Last Admin: 09/18/17 06:06 Dose: 50 mcg Heparin Sodium (Porcine) (Heparin -) 5,000 unit SQ BID [facility] Last Admin: 09/17/17 22:32 Dose: 5,000 unit Hydralazine HCl (Apresoline -) 100 mg PO TID [facility] Last Admin: 09/18/17 06:06 Dose: Not Given Hydralazine HCl (Apresoline Injection -) 10 mg IVPUSH Q4H PRN PRN Reason: HYPERTENSION Sodium Chloride (Normal Saline -) 250 mls @ 3,000 mls/hr IV PRN PRN PRN Reason: Hypotension during Dialysis Stop: 09/16/17 13:42 Propofol (Diprivan -) 1,000,000 mcg in 100 mls @ 19.296 mls/hr IVPB TITR LANE; 40 MCG/KG/MIN PRN Reason: Protocol Last Titration: 09/18/17 06:30 Dose: 50 mcg/kg/min, 24.12 mls/hr Isosorbide Mononitrate (Imdur -) 30 mg PO DAILY [facility] Last Admin: 04/23/18 11:07 Dose: Not Given Labetalol HCl (Normodyne -) 200 mg PO Q2H PRN PRN Reason: HYPERTENSION Last Admin: 09/17/17 08:03 Dose: 200 mg Labetalol HCl (Normodyne -) 400 mg PO TID [facility] Last Admin: 09/18/17 06:06 Dose: Not Given Lacosamide (Vimpat Injection -) 100 mg IVPB BID [facility] Last Admin: 09/17/17 22:32 Dose: 100 mg Lidocaine/Aluminum/Magnesium/Simeth (Magic Mouthwash *Sjr Formula* -) 5 ml MM Q6HPO [facility] Last Admin: 09/18/17 06:07 Dose: Not Given Multivit/Ca Carb/B Cmplx/FA/Prenat (Nephro-Claudia -) 1 tablet PO DAILY [facility] Last Admin: 09/17/17 09:15 Dose: Not Given Nifedipine (Procardia Xl -) 90 mg PO BID [facility] Last Admin: 09/17/17 22:35 Dose: Not Given Nystatin (Mycostatin Cream -) 1 applic TP Q6HPO [facility] Last Admin: 09/18/17 06:07 Dose: Not Given Sevelamer Carbonate (Renvela -) 800 mg PO TIDCM [facility] Last Admin: 09/18/17 08:54 Dose: Not Given - Objective Vital Signs: Vital Signs - 24 hr 09/17/17 09/17/17 09/17/17 14:30 14:36 14:45 Temperature 97.5 F L 97.4 F L Pulse Rate 98 H 96 H 98 H Respiratory 10 L 10 L 10 L Rate Blood Pressure 121/86 141/91 O2 Sat by Pulse 96 96 94 L Oximetry (%) 09/17/17 09/17/17 09/17/17 15:00 15:30 15:55 Temperature 97.4 F L 98 F Pulse Rate 102 H 93 H Respiratory 20 12 15 Rate Blood Pressure 139/94 126/90 O2 Sat by Pulse 97 94 L Oximetry (%) 09/17/17 09/17/17 09/17/17 17:00 17:30 18:30 Temperature Pulse Rate 101 H Respiratory 18 15 16 Rate Blood Pressure 127/80 O2 Sat by Pulse 94 L Oximetry (%) 09/17/17 09/17/17 09/17/17 20:00 21:00 21:30 Temperature Pulse Rate 106 H Respiratory 17 19 14 Rate Blood Pressure 137/96 O2 Sat by Pulse 98 Oximetry (%) 09/17/17 09/18/17 09/18/17 22:00 00:00 00:06 Temperature 101 F H Pulse Rate 109 H 108 H Respiratory 19 18 16 Rate Blood Pressure 134/81 135/81 O2 Sat by Pulse 98 Oximetry (%) 09/18/17 09/18/17 09/18/17 02:00 03:29 04:00 Temperature Pulse Rate 106 H 105 H Respiratory 16 16 24 Rate Blood Pressure 142/93 139/85 O2 Sat by Pulse Oximetry (%) 09/18/17 09/18/17 09/18/17 05:30 06:00 08:00 Temperature 99.4 F Pulse Rate 102 H Respiratory 14 15 24 Rate Blood Pressure 127/74 O2 Sat by Pulse 97 Oximetry (%) 09/18/17 09/18/17 09/18/17 09:00 10:00 10:06 Temperature Pulse Rate 96 H Respiratory 15 23 Rate Blood Pressure 124/88 O2 Sat by Pulse 95 95 Oximetry (%) 09/18/17 09/18/17 10:09 12:30 Temperature Pulse Rate 10 L 100 H Respiratory Rate Blood Pressure O2 Sat by Pulse 95 98 Oximetry (%) Intake & Output 09/16/17 09/17/17 09/18/17 09/19/17 07:59 07:59 07:59 07:59 Intake Total 570 049 4928.4 Output Total 30 40 520 Balance 610 660 948.4 Weight 173 lb 8 oz 177 lb 4.026 oz 174 lb 12.8 oz Constitutional: Yes: No Distress, Calm Eyes: No: Sclera Icterus HENT: No: Nasal Congestion Cardiovascular: Yes: Regular Rate and Rhythm, S1, S2, Other (PMI non diplaced). No: Gallop, Murmur Respiratory: Yes: CTA Bilaterally, Diminished (L lung). No: Accessory Muscle Use, Rales, Wheezes. chest tube x 2 Gastrointestinal: Yes: Normal Bowel Sounds, Soft. No: Tenderness Musculoskeletal: Yes: Other (No kyphosis) Extremities: No: Cold, Cyanosis Edema: No Integumentary: No: Jaundice Neurological: Yes: Alert. No: Seizure Psychiatric: No: Agitated Labs: CBC, BMP 04/24/18 05:57 Assessment/Plan echo 08/2017: nl lv/rv, no sig valve path cxr: left eff tele: NSR a/p: 22 m hx autism, seizures, possible underlying ckd/htn here with ams, respiratory failure/sepsis, anna requiring HD and hypertensive urgency. Cardiac course complicated by mild troponin elevation and prolonged qtc. 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 was uncontrolled when here 12/11 for seizure, with agitation then--no BP checked since that discharge she says -has had difficult to control BP here, requiring nifedipine and labetalol drips (the latter up to 2mg/min, i.e. 2800 mg/day, without good bp control) 09/14: increased hydralzine to 100 tid and add imdur 30 qd -09/15: BP severely elevated again this am (220/100). change nifedip 120 qd to 90 bid to cover overnight/early AM bp's (very short-acting med). change coreg to labetalol 400 TID for greater potency (with prn PO doses ordered), will likely need closer to 600-800 TID labetlol, will titrate up as needed -BP much improved, continue current regimen (nifedipine 90 bid, hydral 100 tid, labetalol 400 TID, imdur 30). try to cut down nifedipine dose (to 60 bid) +/- hydralazine dose later, if bp remains well controlled. - 09/18: bp meds mostly held yesterday and this morning due to surgery, intubation etc. bp remains overall well controlled. con't to monitor. -deferring RAAS-blockers for now given ANNA with renal w/u ongoing anna requiring HD: -creat 2.1 here in november, ? no prior w/u per mother -suspect hypertensive renal failure, progressive since then, though possible causality in other direction (no MD f/u since november, per mother) -renal eval in progress, planned for biopsy -currently getting HD here abnormal troponins - flat trend, with intermediate range values - secondary to sepsis myocardial injury, vs demand ischemia (severe HTN, with tachycardia to 120s-130s). no clinical findings to support acs here. anemia: -chronic, mgm't per primary team respiratory failure s/p intubation, pleural effusion - with white out of left lung - 09/04 s/p chest tube placement. - plan per critical care/thoracic surgery--s/p Bronchoscopy, left VATS, drainage of effusion, pneumolysis 09/17. now with chest tube x 2.
[2017-09-18] MEDS ORDERED: PT OWN MED DRAWER 7, Y5N ONE (13:40)
--- NOTE | 2017-09-18 13:51 | PN ---
Progress Note (short form) - Note Progress Note: extubated s/p decortication yesterday 2 chest tubes he is alert NAD asked to see for fever 101 overnight Vital Signs Period Temp Pulse Resp BP Sys/Mora Pulse Ox Last 24 Hr 97.4 F-101 F 10-109 10-24 121-142/74-96 94-98 cor-rrr lungs decreased bs at bases abd soft,nt ext no edema CBC, BMP 09/18/17 05:57 09/18/17 13:20 Microbiology 09/17/17 15:00 Bronchial Washings - Left Lower Lobe VANESSA Preparation - Preliminary 09/17/17 15:00 Bronchial Washings - Left Lower Lobe Fungal Culture - Preliminary 09/17/17 15:00 Lung - Left Lower Lobe VANESSA Preparation - Preliminary 09/17/17 15:00 Lung - Left Lower Lobe Fungal Culture - Preliminary 09/17/17 15:00 Pleural Fluid VANESSA Preparation - Preliminary 09/17/17 15:00 Pleural Fluid Fungal Culture - Preliminary 09/17/17 15:00 Lung - Left Lower Lobe AFB Smear Concentration - Preliminary 09/17/17 15:00 Lung - Left Lower Lobe Mycobacterial Culture - Preliminary 09/17/17 15:00 Pleural Fluid AFB Smear Concentration - Preliminary 09/17/17 15:00 Pleural Fluid Mycobacterial Culture - Preliminary 09/17/17 15:00 Bronchial Washings - Left Lower Lobe AFB Smear Concentration - Preliminary 09/17/17 15:00 Bronchial Washings - Left Lower Lobe Mycobacterial Culture - Preliminary a/p s/p decortication post op fever-resolved cxray improved extubated would observe off antibiotics reculture if he has recurrent fever cefprozil allergy- rash observe off antibiotics
[2017-09-18] MEDS ORDERED: SODIUM CHLORIDE 250 ML IV PRN (16:08)
--- NOTE | 2017-09-18 16:31 | PN ---
Progress Note, Physician History of Present Illness: Pt seen and examined at bedside. He was extubated today. He appears comfortable. - Current Medication List Current Medications: Active Medications Acetaminophen (Ofirmev Injection -) 1,000 mg IVPB Q6H PRN PRN Reason: PAIN LEVEL 1-5 Amino Acids (Prosource No Carb Liquid Pkt) 30 ml NGT DAILY [facility] Last Admin: 09/18/17 10:00 Dose: Not Given Chlorhexidine Gluconate (Hibiclens For Decolonization -) 1 applic TP HS [facility] Last Admin: 09/17/17 22:32 Dose: 1 applic Diphenhydramine HCl (Benadryl -) 25 mg PO Q6H PRN PRN Reason: FOR ITCHING Last Admin: 09/16/17 21:58 Dose: 25 mg Docusate Sodium (Colace Liquid -) 100 mg NGT TID PRN PRN Reason: CONSTIPATION Fentanyl (Sublimaze Injection -) 50 mcg IVPUSH Q1H PRN PRN Reason: PAIN Stop: 09/19/17 05:59 Last Admin: 09/18/17 06:06 Dose: 50 mcg Heparin Sodium (Porcine) (Heparin -) 5,000 unit SQ BID [facility] Last Admin: 09/17/17 22:32 Dose: 5,000 unit Hydralazine HCl (Apresoline -) 100 mg PO TID [facility] Last Admin: 09/18/17 06:06 Dose: Not Given Hydralazine HCl (Apresoline Injection -) 10 mg IVPUSH Q4H PRN PRN Reason: HYPERTENSION Propofol (Diprivan -) 1,000,000 mcg in 100 mls @ 19.296 mls/hr IVPB TITR LANE; 40 MCG/KG/MIN PRN Reason: Protocol Last Titration: 09/18/17 06:30 Dose: 50 mcg/kg/min, 24.12 mls/hr Sodium Chloride (Normal Saline -) 250 mls @ 3,000 mls/hr IV PRN PRN PRN Reason: Hypotension during Dialysis Stop: 09/19/17 16:08 Isosorbide Mononitrate (Imdur -) 30 mg PO DAILY [facility] Last Admin: 09/18/17 10:00 Dose: Not Given Labetalol HCl (Normodyne -) 200 mg PO Q2H PRN PRN Reason: HYPERTENSION Last Admin: 09/17/17 08:03 Dose: 200 mg Labetalol HCl (Normodyne -) 400 mg PO TID [facility] Last Admin: 09/18/17 06:06 Dose: Not Given Lacosamide (Vimpat Injection -) 100 mg IVPB BID [facility] Last Admin: 09/17/17 22:32 Dose: 100 mg Lidocaine/Aluminum/Magnesium/Simeth (Magic Mouthwash *Sjr Formula* -) 5 ml MM Q6HPO [facility] Last Admin: 09/18/17 13:38 Dose: Not Given Multivit/Ca Carb/B Cmplx/FA/Prenat (Nephro-Claudia -) 1 tablet PO DAILY [facility] Last Admin: 09/18/17 10:00 Dose: Not Given Nifedipine (Procardia Xl -) 90 mg PO BID [facility] Last Admin: 09/18/17 10:00 Dose: Not Given Nystatin (Mycostatin Cream -) 1 applic TP Q6HPO [facility] Last Admin: 09/18/17 06:07 Dose: Not Given Sevelamer Carbonate (Renvela -) 800 mg PO TIDCM [facility] Last Admin: 09/18/17 13:38 Dose: Not Given - Objective Vital Signs: Vital Signs Temperature 99.4 F 09/18/17 06:00 Pulse Rate 100 H 09/18/17 12:30 Respiratory Rate 23 09/18/17 10:06 Blood Pressure 124/88 09/18/17 10:00 O2 Sat by Pulse Oximetry (%) 98 09/18/17 12:30 Constitutional: Yes: Calm Eyes: Yes: Conjunctiva Clear Cardiovascular: Yes: S1, S2 Respiratory: Yes: On Venti-Mask Gastrointestinal: Yes: Soft Genitourinary: Yes: Incontinence Musculoskeletal: Yes: WNL Edema: Yes Edema: LLE: Trace, RLE: Trace Neurological: Yes: Pre-Existing Deficit Labs: CBC, BMP 09/18/17 05:57 09/18/17 13:20 INR, PTT INR 1.03 (0.82-1.09) 09/17/17 06:45 Fibrinogen 558.0 mg/dL (238-498) H 09/17/17 06:45 Problem List - Problems (1) Acute renal failure Code(s): N17.9 - ACUTE KIDNEY FAILURE, UNSPECIFIED Qualifiers: Acute renal failure type: unspecified Qualified Code(s): N17.9 - Acute kidney failure, unspecified (2) Anemia Code(s): D64.9 - ANEMIA, UNSPECIFIED (3) Hyperkalemia Code(s): E87.5 - HYPERKALEMIA (4) Hypertensive urgency Code(s): I16.0 - HYPERTENSIVE URGENCY (5) Sepsis Code(s): A41.9 - SEPSIS, UNSPECIFIED ORGANISM Qualifiers: Sepsis type: sepsis due to unspecified organism Qualified Code(s): A41.9 - Sepsis, unspecified organism (6) Thrombocytopenia Code(s): D69.6 - THROMBOCYTOPENIA, UNSPECIFIED (7) Seizure Code(s): R56.9 - UNSPECIFIED CONVULSIONS Assessment/Plan Current Medications Generic Name Dose Route Start Last Admin Trade Name Freq PRN Reason Stop Dose Admin Acetaminophen 1,000 mg 09/18/17 09:46 Ofirmev Injection - IVPB Q6H PRN PAIN LEVEL 1-5 Amino Acids 30 ml 09/03/17 16:15 09/18/17 10:00 Prosource No Carb Liquid Pkt NGT Not Given DAILY LANE Chlorhexidine Gluconate 1 applic 08/29/17 22:00 09/17/17 22:32 Hibiclens For Decolonization - TP [address] Administration Diphenhydramine HCl 25 mg 09/15/17 09:52 09/16/17 21:58 Benadryl - PO 25 mg Q6H PRN Administration FOR ITCHING Docusate Sodium 100 mg 09/04/17 10:00 Colace Liquid - NGT TID PRN CONSTIPATION Fentanyl 50 mcg 09/18/17 05:48 09/18/17 06:06 Sublimaze Injection - IVPUSH 09/19/17 05:59 50 mcg Q1H PRN Administration PAIN Heparin Sodium (Porcine) 5,000 unit 09/17/17 22:00 09/17/17 22:32 Heparin - SQ 5,[address] Administration Hydralazine HCl 100 mg 09/14/17 14:00 09/18/17 06:06 Apresoline - PO Not Given TID LANE Hydralazine HCl 10 mg 09/17/17 16:51 Apresoline Injection - IVPUSH Q4H PRN HYPERTENSION Propofol 1,000,000 mcg in 100 mls @ 19.296 mls/hr 09/17/17 14:00 09/18/17 06: 30 Diprivan - IVPB 50 mcg/kg/min TITR LANE 24.12 mls/hr Protocol Titration 40 MCG/KG/MIN Sodium Chloride 250 mls @ 3,000 mls/hr 09/18/17 16:08 Normal Saline - IV 09/19/17 16:08 PRN PRN Hypotension during Dialysis Isosorbide Mononitrate 30 mg 09/15/17 10:00 09/18/17 10:00 Imdur - PO Not Given DAILY [facility] Labetalol HCl 200 mg 09/15/17 09:10 09/17/17 08:03 Normodyne - PO 200 mg Q2H PRN Administration HYPERTENSION Labetalol HCl 400 mg 09/15/17 14:00 09/18/17 06:06 Normodyne - PO Not Given TID [facility] Lacosamide 100 mg 09/17/17 22:00 09/17/17 22:32 Vimpat Injection - IVPB 100 mg BID [facility] Administration Lidocaine/Aluminum/Magnesium/Simeth 5 ml 09/12/17 00:00 09/18/17 13:38 Magic Mouthwash *Sjr Formula* - MM Not Given Q6HPO [facility] Multivit/Ca Carb/B Cmplx/FA/Prenat 1 tablet 09/13/17 10:00 09/18/17 10:00 Nephro-Claudia - PO Not Given DAILY [facility] Nifedipine 90 mg 09/16/17 10:00 09/18/17 10:00 Procardia Xl - PO Not Given BID [facility] Nystatin 1 applic 09/15/17 06:00 09/18/17 06:07 Mycostatin Cream - TP Not Given Q6HPO [facility] Sevelamer Carbonate 800 mg 09/16/17 17:30 09/18/17 13:38 Renvela - PO Not Given TIDCM [facility] Impression 1. ANNA 2. HTN urgency/emergency 3. hyperkalemia 4. hyponatremia 5. autism 6. hx of seizure 7. anemia 8. CKD 9. lactic acidosis improving 10. thrombocytopenia 11. hyperkalemia 12. pleural effusion 13. acute resp failure requiring intubation 14. ESRD Plan - will dialyze again to day as he is hyperkalemica - will arrange for 2 and a hald hours secondary to scheduling problems - will evaluate again for HD in am - follow cxr - discussed with medical team - low potassium diet - will follow Dr Velasquez
[2017-09-18] MEDS: CHLORHEXIDINE GLUCONATE 4% CLEANSER FOR DECOLONIZATION TP SCH (21:00)
[2017-09-18] MEDS: LACOSAMIDE 50 MG TABLET PO SCH (21:18)
[2017-09-18] MEDS ORDERED: LACOSAMIDE 50 MG TABLET PO SCH (22:00)
[2017-09-19] MEDS: MAG HYDROX/ALH/SMC/DPHA/LIDO 240 ML MOUTHWASH MM SCH ×4 (00:37→18:58)
[2017-09-19] MEDS: NYSTATIN 100,000 UNIT/GM TOPICAL CREAM 15 GM TUBE TP SCH ×4 (00:38→18:58)
[2017-09-19] MEDS: hydrALAZINE HCL 50 MG TABLET (FP) PO SCH ×3 (05:42→21:28)
[2017-09-19] MEDS: LABETALOL HCL 200 MG TABLET (FP) PO SCH ×3 (05:43→21:29)
[2017-09-19 06:35] LABS: HEMATOCRIT 24.9 % (35.4-49); HEMOGLOBIN 8.5 GM/dL (11.7-16.9); MCH 30.1 pg (25.7-33.7); MCHC 34.2 g/dl (32.0-35.9); MEAN CELL VOLUME 88.1 fl (80-96); MEAN PLT VOLUME 7.7 fl (7.5-11.1); PLATELET COUNT 421 K/MM3 (134-434); RBC 2.83 M/mm3 (4.00-5.60); RDW 15.2 % (11.9-15.9); WHITE BLOOD COUNT 8.6 K/mm3 (4.0-10.0)
--- NOTE | 2017-09-19 06:40 | PN ---
Progress Note, Physician Chief Complaint: ID ICU follow up for this 22 year old male who on 09/17 had VAT left lung with 2 chest tubes placed. As per thoracic surgery note no purulence found. Remains stable Only low grade temps Off antibiotics. Dialysis via right cehst catheter proceeds. He appears comfortble in NAD - Current Medication List Current Medications: Active Medications Acetaminophen (Ofirmev Injection -) 1,000 mg IVPB Q6H PRN PRN Reason: PAIN LEVEL 1-5 Last Admin: 09/18/17 12:00 Dose: 1,000 mg Amino Acids (Prosource No Carb Liquid Pkt) 30 ml NGT DAILY [facility] Last Admin: 09/18/17 10:00 Dose: Not Given Chlorhexidine Gluconate (Hibiclens For Decolonization -) 1 applic TP HS [facility] Last Admin: 09/18/17 21:00 Dose: 1 applic Diphenhydramine HCl (Benadryl -) 25 mg PO Q6H PRN PRN Reason: FOR ITCHING Last Admin: 09/16/17 21:58 Dose: 25 mg Docusate Sodium (Colace Liquid -) 100 mg NGT TID PRN PRN Reason: CONSTIPATION Heparin Sodium (Porcine) (Heparin -) 5,000 unit SQ BID [facility] Last Admin: 09/18/17 20:59 Dose: 5,000 unit Hydralazine HCl (Apresoline -) 100 mg PO TID [facility] Last Admin: 09/19/17 05:42 Dose: 100 mg Hydralazine HCl (Apresoline Injection -) 10 mg IVPUSH Q4H PRN PRN Reason: HYPERTENSION Propofol (Diprivan -) 1,000,000 mcg in 100 mls @ 19.296 mls/hr IVPB TITR LANE; 40 MCG/KG/MIN PRN Reason: Protocol Last Admin: 09/18/17 20:49 Dose: Not Given Sodium Chloride (Normal Saline -) 250 mls @ 3,000 mls/hr IV PRN PRN PRN Reason: Hypotension during Dialysis Stop: 09/19/17 16:08 Isosorbide Mononitrate (Imdur -) 30 mg PO DAILY [facility] Last Admin: 09/18/17 10:00 Dose: Not Given Labetalol HCl (Normodyne -) 200 mg PO Q2H PRN PRN Reason: HYPERTENSION Last Admin: 09/17/17 08:03 Dose: 200 mg Labetalol HCl (Normodyne -) 400 mg PO TID [facility] Last Admin: 09/19/17 05:43 Dose: 400 mg Lacosamide (Vimpat -) 100 mg PO BID [facility] Last Admin: 09/18/17 21:18 Dose: 100 mg Lidocaine/Aluminum/Magnesium/Simeth (Magic Mouthwash *Sjr Formula* -) 5 ml MM Q6HPO [facility] Last Admin: 09/19/17 05:42 Dose: 5 ml Multivit/Ca Carb/B Cmplx/FA/Prenat (Nephro-Claudia -) 1 tablet PO DAILY [facility] Last Admin: 09/18/17 10:00 Dose: Not Given Nifedipine (Procardia Xl -) 90 mg PO BID [facility] Last Admin: 09/18/17 20:59 Dose: 90 mg Nystatin (Mycostatin Cream -) 1 applic TP Q6HPO [facility] Last Admin: 09/19/17 05:43 Dose: 1 applic Sevelamer Carbonate (Renvela -) 800 mg PO TIDCM [facility] Last Admin: 09/18/17 17:44 Dose: Not Given - Objective Vital Signs: Vital Signs Temperature 99 F 09/19/17 02:00 Pulse Rate 106 H 09/19/17 05:00 Respiratory Rate 18 09/19/17 05:00 Blood Pressure 144/90 09/19/17 05:00 O2 Sat by Pulse Oximetry (%) 98 09/18/17 22:00 Constitutional: Yes: Well Nourished, No Distress Eyes: Yes: WNL, Conjunctiva Clear HENT: Yes: WNL, Atraumatic Neck: Yes: WNL, Supple Cardiovascular: Yes: WNL, Regular Rate and Rhythm, S1, S2, Other (dialysis catheter). No: Murmur Respiratory: Yes: WNL, Regular, CTA Bilaterally, Other (left chest tubes). No: Rales, Rhonchi Gastrointestinal: Yes: WNL, Normal Bowel Sounds, Soft. No: Hepatomegaly, Splenomegaly, Tenderness, Tenderness, Rebound Edema: Yes Labs: INR, PTT INR 1.03 (0.82-1.09) 09/17/17 06:45 Fibrinogen 558.0 mg/dL (238-498) H 09/17/17 06:45 Problem List - Problems (1) Acute renal failure Code(s): N17.9 - ACUTE KIDNEY FAILURE, UNSPECIFIED Qualifiers: Acute renal failure type: unspecified Qualified Code(s): N17.9 - Acute kidney failure, unspecified (2) Hypertensive urgency Code(s): I16.0 - HYPERTENSIVE URGENCY (3) Sepsis Code(s): A41.9 - SEPSIS, UNSPECIFIED ORGANISM Qualifiers: Sepsis type: sepsis due to unspecified organism Qualified Code(s): A41.9 - Sepsis, unspecified organism Assessment/Plan Microbiology 09/11/17 13:15 Blood - Peripheral Venous Blood Culture - Final NO GROWTH AFTER 5 DAYS INCUBATION 09/11/17 12:44 Blood - Peripheral Venous Blood Culture - Final NO GROWTH AFTER 5 DAYS INCUBATION 09/17/17 15:00 Pleural Fluid VANESSA Preparation - Preliminary 09/17/17 15:00 Pleural Fluid Fungal Culture - Preliminary 09/17/17 15:00 Pleural Fluid AFB Smear Concentration - Preliminary 09/17/17 15:00 Pleural Fluid Mycobacterial Culture - Preliminary 09/17/17 15:00 Lung - Left Lower Lobe VANESSA Preparation - Preliminary 09/17/17 15:00 Lung - Left Lower Lobe Fungal Culture - Preliminary 09/17/17 15:00 Lung - Left Lower Lobe AFB Smear Concentration - Preliminary 09/17/17 15:00 Lung - Left Lower Lobe Mycobacterial Culture - Preliminary 09/17/17 15:00 Bronchial Washings - Left Lower Lobe VANESSA Preparation - Preliminary 09/17/17 15:00 Bronchial Washings - Left Lower Lobe Fungal Culture - Preliminary 09/17/17 15:00 Bronchial Washings - Left Lower Lobe AFB Smear Concentration - Preliminary 09/17/17 15:00 Bronchial Washings - Left Lower Lobe Mycobacterial Culture - Preliminary Laboratory Tests 09/18/17 09/19/17 05:57 06:10 WBC 10.9 H Pending Hgb 8.3 L Pending Hct 24.0 L Pending Plt Count 422 Pending Assessment S/P thoracatomy VAT day 2 post op doing well Today s chest xray marked improvement seen Remains stable Acute renal failure now on dialysis Anemia multifactorial component of hemolysis Autism Plan Low grade temps nothing to be concerned about He looks comfortable now and off antibiotics Multiple operative cultures pendind though previous pleural fluid cultures no growth Observe off antibiotics Critical carte time spent today 35 minutes including discussion with father
[2017-09-19 06:57] LABS: ANION GAP 5 (8-16); BLOOD UREA NITROGEN 25 mg/dL (7-18); CALCIUM 8.2 mg/dL (8.5-10.1); CHLORIDE 102 mmol/L (98-107); CO2 32 mmol/L (21-32); CREATININE 6.6 mg/dL (0.7-1.3); GLUCOSE,RANDOM 89 mg/dL (74-106); MAGNESIUM 2.3 mg/dL (1.8-2.4); PHOSPHOROUS 6.7 mg/dL (2.5-4.9); POTASSIUM 5.6 mmol/L (3.5-5.1); SODIUM 139 mmol/L (136-145)
--- NOTE | 2017-09-19 08:18 | PN ---
Progress Note (short form) - Note Progress Note: POD #2 Extubated. Alert. Resting comfortably without complaint. Caregiver at bedside. Last Vital Signs Temp Pulse Resp BP Pulse Ox 98 F 97 H 18 128/71 98 09/19/17 06:00 09/19/17 07:00 09/19/17 07:00 09/19/17 07:00 09/18/17 22:00 CBC, BMP 09/19/17 06:10 09/19/17 06:10 Chest Tube Output 09/17/17 09/18/17 09/19/17 18:00 06:00 05:53 Anterior 110 60 50 Posterior 220 80 190 General: nad Chest: CxT x 2 on suction. No air leak Problem List - Problems (1) Pneumonia Assessment/Plan: POD #2 s/p Bronchoscopy, left VATS, drainage of effusion, pneumolysis CxT to remain on suction until . CXR Cont ICU management Trend CBC --> monitor H/H Above discussed with Dr. Ivy and agrees. Code(s): J18.9 - PNEUMONIA, UNSPECIFIED ORGANISM Qualifiers: Pneumonia type: due to unspecified organism Laterality: unspecified laterality Lung location: unspecified part of lung Qualified Code(s): J18.9 - Pneumonia, unspecified organism
--- NOTE | 2017-09-19 08:40 | PN ---
Physical Exam: SUBJECTIVE: Patient seen and examined in the ICU. Pt extubated yesterday. Tmax of 100.0F at 10pm last night. Pt looks comfortable. Pt's mother at bedside, and agrees that pt is not exhibiting any signs of pain. No events overnight. OBJECTIVE: Vital Signs Period Temp Pulse Resp BP Sys/Mora Pulse Ox Last 24 Hr 98 F-100.0 F 10-108 15-26 110-169/65-118 95-98 GENERAL: Pt was successfully extubated today, in NAD. LUNGS: CTAB. [address], no air leak. HEART: Regular rhythm, tachycardic, +S1/S2, no murmurs appreciated. ABDOMEN: Soft, nontender, nondistended, no guarding. EXTREMITIES: Warm, well-perfused. + edema. NEUROLOGICAL: Cranial nerves II through XII grossly intact. No facial droop. Gait not observed. Laboratory Results - last 24 hr 09/17/17 09/18/17 09/19/17 06:45 13:20 06:10 WBC 8.6 RBC 2.83 L Hgb 8.5 L Hct 24.9 L MCV 88.1 MCH 30.1 MCHC 34.2 RDW 15.2 Plt Count 421 MPV 7.7 Sodium Potassium 5.9 H Chloride Carbon Dioxide Anion Gap BUN Creatinine Random Glucose Calcium 8.7 Phosphorus Magnesium PTH Intact 160 H PTH Intact Intraop 0 m 09/19/17 06:10 WBC RBC Hgb Hct MCV MCH MCHC RDW Plt Count MPV Sodium 139 Potassium 5.6 H Chloride 102 Carbon Dioxide 32 Anion Gap 5 L BUN 25 H Creatinine 6.6 H Random Glucose 89 Calcium 8.2 L Phosphorus 6.7 H Magnesium 2.3 PTH Intact PTH Intact Intraop 0 m Active Medications Generic Name Dose Route Start Last Admin Trade Name Freq PRN Reason Stop Dose Admin Acetaminophen 1,000 mg 09/18/17 09:46 09/18/17 12:00 Ofirmev Injection - IVPB 1,000 mg Q6H PRN Administration PAIN LEVEL 1-5 Amino Acids 30 ml 09/03/17 16:15 09/18/17 10:00 Prosource No Carb Liquid Pkt NGT Not Given DAILY LANE Chlorhexidine Gluconate 1 applic 08/29/17 22:00 09/18/17 21:00 Hibiclens For Decolonization - TP [address] Administration Diphenhydramine HCl 25 mg 09/15/17 09:52 09/16/17 21:58 Benadryl - PO 25 mg Q6H PRN Administration FOR ITCHING Docusate Sodium 100 mg 09/04/17 10:00 Colace Liquid - NGT TID PRN CONSTIPATION Heparin Sodium (Porcine) 5,000 unit 09/17/17 22:00 09/18/17 20:59 Heparin - SQ 5,[address] Administration Hydralazine HCl 100 mg 09/14/17 14:00 09/19/17 05:42 Apresoline - PO [address] Administration Hydralazine HCl 10 mg 09/17/17 16:51 Apresoline Injection - IVPUSH Q4H PRN HYPERTENSION Propofol 1,000,000 mcg in 100 mls @ 19.296 mls/hr 09/17/17 14:00 09/18/17 20: 49 Diprivan - IVPB Not Given TITR LANE Protocol 40 MCG/KG/MIN Sodium Chloride 250 mls @ 3,000 mls/hr 09/18/17 16:08 Normal Saline - IV 09/19/17 16:08 PRN PRN Hypotension during Dialysis Isosorbide Mononitrate 30 mg 09/15/17 10:00 09/18/17 10:00 Imdur - PO Not Given DAILY LANE Labetalol HCl 200 mg 09/15/17 09:10 09/17/17 08:03 Normodyne - PO 200 mg Q2H PRN Administration HYPERTENSION Labetalol HCl 400 mg 09/15/17 14:00 09/19/17 05:43 Normodyne - PO [address] Administration Lacosamide 100 mg 09/18/17 22:00 09/18/17 21:18 Vimpat - PO [address] Administration Lidocaine/Aluminum/Magnesium/Simeth 5 ml 09/12/17 00:00 09/19/17 05:42 Magic Mouthwash *Sjr Formula* - MM [address] Administration Multivit/Ca Carb/B Cmplx/FA/Prenat 1 tablet 09/13/17 10:00 09/18/17 10:00 Nephro-Leatha - PO Not Given DAILY [facility] Nifedipine 90 mg 09/16/17 10:00 09/18/17 20:59 Procardia Xl - PO [address] Administration Nystatin 1 applic 09/15/17 06:00 09/19/17 05:43 Mycostatin Cream - TP [address] Administration Sevelamer Carbonate 800 mg 09/16/17 17:30 09/18/17 17:44 Renvela - PO Not Given TIDCM ALNE IMAGIN09/19/17 CXR -> no significant interval change on my read, official report pending ASSESSMENT/PLAN: 22M with PMH of autism and seizure disorder, presents with severe htn, anemia, thrombocytopenia, leukocytosis, hyperkalemia, ANNA, admitted to ICU. # sepsis 2/2 pneumonia - leukocytosis resolved today - pt afebrile - ID (Dr. Moise) recs appreciated: observe off antibiotics # loculated Left pleural effusion - s/p Left VATS/pneumolysis on 09/17/[address] Ivy - POD #2 - post-op care per Dr. Ivy: Chest tubes to suction until - pain control with Ofirmev prn - [address], monitor drainage - f/u pleural fluid cultures # htn urgency - continue Labetalol TID (plus Labetalol po q2hr prn), Hydralazine TID (plus Hydralazine IVpush prn), Procardia, and Imdur - Cardiology (Dr. Morton) recs appreciated: deferring RAAS-blockers for now given ANNA with renal w/u ongoing - goal BP 120/80 # acute hypoxic respiratory failure - improved - pt re-intubated for procedure 09/17/17 and extubated 09/18/17 (pt intubated and extubated 09/06/17) # ANNA - Nephrology (Dr. Velasquez) recs appreciated: pt received HD yesterday 2/2 hyperkalemia, pt scheduled to receive his regular HD treatment today as well. - renal biopsy to be done once pt stable - IR can get biopsy if cleared by anesthesia - s/p permacath placement 09/10/17 - monitor Cr and UOP - continue Nephro-leatha and Renvela # anemia - pt s/p 4U PRBCs this hospitalization (with most recent unit on 09/10/17) - hgb stable - monitor for overt s/s of bleeding # seizure - continue Vimpat BID # FEN - Fluids: po - Electrolytes: hyperkalemia and hyperphosphatemia noted, dialysis scheduled for today, continue to monitor - Nutrition: dysphagia puree with [place] thick liquids, with Magic Cup and Ensure chocolate pudding plus Prosource daily # Prophylaxis - DVT ppx with Heparin BID Visit type - Emergency Visit Emergency Visit: Yes ED Registration Date: 08/29/17 Care time: The patient presented to the Emergency Department on the above date and was hospitalized for further evaluation of their emergent condition. - New Patient This patient is new to me today: No - Critical Care Critical Care patient: Yes Total Critical Care Time (in minutes): 35 Critical Care Statement: The care of this patient involved high complexity decision making to prevent further life threatening deterioration of the patient 's condition and/or to evaluate & treat vital organ system(s) failure or risk of failure.
--- NOTE | 2017-09-19 09:37 | PN ---
Physical Exam: SUBJECTIVE: Patient seen and examined OBJECTIVE: Vital Signs Period Temp Pulse Resp BP Sys/Mora Pulse Ox Last 24 Hr 98 F-100.0 F 10-108 15-26 110-169/65-118 95-98 GENERAL/NEURO: The patient is awake, alert, interacting with family members, vocalizing sounds. LUNGS: Breath sounds equal, clear to auscultation bilaterally, no wheezes, no crackles, no accessory muscle use. HEART: Regular rate and rhythm, S1, S2 without murmur, rub or gallop. ABDOMEN: Soft, nontender, nondistended, normoactive bowel sounds EXTREMITIES: 2+ pulses, warm, well-perfused, trace edema Laboratory Results - last 24 hr 09/17/17 09/18/17 09/19/17 06:45 13:20 06:10 WBC 8.6 RBC 2.83 L Hgb 8.5 L Hct 24.9 L MCV 88.1 MCH 30.1 MCHC 34.2 RDW 15.2 Plt Count 421 MPV 7.7 Sodium Potassium 5.9 H Chloride Carbon Dioxide Anion Gap BUN Creatinine Random Glucose Calcium 8.7 Phosphorus Magnesium PTH Intact 160 H PTH Intact Intraop 0 m 09/19/17 06:10 WBC RBC Hgb Hct MCV MCH MCHC RDW Plt Count MPV Sodium 139 Potassium 5.6 H Chloride 102 Carbon Dioxide 32 Anion Gap 5 L BUN 25 H Creatinine 6.6 H Random Glucose 89 Calcium 8.2 L Phosphorus 6.7 H Magnesium 2.3 PTH Intact PTH Intact Intraop 0 m Active Medications Generic Name Dose Route Start Last Admin Trade Name Freq PRN Reason Stop Dose Admin Acetaminophen 1,000 mg 09/18/17 09:46 09/18/17 12:00 Ofirmev Injection - IVPB 1,000 mg Q6H PRN Administration PAIN LEVEL 1-5 Amino Acids 30 ml 09/03/17 16:15 09/18/17 10:00 Prosource No Carb Liquid Pkt NGT Not Given DAILY LANE Chlorhexidine Gluconate 1 applic 08/29/17 22:00 09/18/17 21:00 Hibiclens For Decolonization - TP [address] Administration Diphenhydramine HCl 25 mg 09/15/17 09:52 09/16/17 21:58 Benadryl - PO 25 mg Q6H PRN Administration FOR ITCHING Docusate Sodium 100 mg 09/04/17 10:00 Colace Liquid - NGT TID PRN CONSTIPATION Heparin Sodium (Porcine) 5,000 unit 09/17/17 22:00 09/18/17 20:59 Heparin - SQ 5,[address] Administration Hydralazine HCl 100 mg 09/14/17 14:00 09/19/17 05:42 Apresoline - PO 100 mg TID ALNE Administration Hydralazine HCl 10 mg 09/17/17 16:51 Apresoline Injection - IVPUSH Q4H PRN HYPERTENSION Propofol 1,000,000 mcg in 100 mls @ 19.296 mls/hr 09/17/17 14:00 09/18/17 20: 49 Diprivan - IVPB Not Given TITR LANE Protocol 40 MCG/KG/MIN Sodium Chloride 250 mls @ 3,000 mls/hr 09/18/17 16:08 Normal Saline - IV 09/19/17 16:08 PRN PRN Hypotension during Dialysis Isosorbide Mononitrate 30 mg 09/15/17 10:00 09/18/17 10:00 Imdur - PO Not Given DAILY LANE Labetalol HCl 200 mg 09/15/17 09:10 09/17/17 08:03 Normodyne - PO 200 mg Q2H PRN Administration HYPERTENSION Labetalol HCl 400 mg 09/15/17 14:00 09/19/17 05:43 Normodyne - PO [address] Administration Lacosamide 100 mg 09/18/17 22:00 09/18/17 21:18 Vimpat - PO 100 mg BID [facility] Administration Lidocaine/Aluminum/Magnesium/Simeth 5 ml 09/12/17 00:00 09/19/17 05:42 Magic Mouthwash *Sjr Formula* - MM 5 ml Q6HPO [facility] Administration Multivit/Ca Carb/B Cmplx/FA/Prenat 1 tablet 09/13/17 10:00 09/18/17 10:00 Nephro-Claudia - PO Not Given DAILY [facility] Nifedipine 90 mg 09/16/17 10:00 09/18/17 20:59 Procardia Xl - PO [address] Administration Nystatin 1 applic 09/15/17 06:00 09/19/17 05:43 Mycostatin Cream - TP [address] Administration Sevelamer Carbonate 800 mg 09/16/17 17:30 09/18/17 17:44 Renvela - PO Not Given TIDCM LANE ASSESSMENT/PLAN 22 year-old male with PMH significant for HTN, autism, and epilepsy. Admitted for pneumonia, ANNA, hypertensive emergency. Hospital course complicated by acute respiratory failure, requiring intubation and emergent HD. Hospital course further complicated by persistent left pleural effusion requiring VATS and pneumolysis on 09/17. Left pleural effusion with loculation --s/p thoracentesis 09/02; --s/p pigtail 09/04; --s/p bronchoscopy/left VATS/drainage of effusion/pneumolysis 09/17 --two chest tubes both draining serosnaguinous fluid; to stay in place until per CT surgery Severe sepsis secondary to pneumonia --Tm 100.1, no leukocytosis --per ID continue to observe off antibiotics --duonebs ANNA on HD - HD yesterday - Epo with HD - renal biopsy planned Severe, refractory hypertension --better controlled --contine labetolol, nifedipine, hydralazine, Imdur Epilepsy --continue Vimpat DVT prophylaxis: SCDs Dispo: continues to require ICU level care. Full code. Visit type - Emergency Visit Emergency Visit: Yes ED Registration Date: 08/29/17 Care time: The patient presented to the Emergency Department on the above date and was hospitalized for further evaluation of their emergent condition. - New Patient This patient is new to me today: No - Critical Care Critical Care patient: Yes Total Critical Care Time (in minutes): 35 Critical Care Statement: The care of this patient involved high complexity decision making to prevent further life threatening deterioration of the patient 's condition and/or to evaluate & treat vital organ system(s) failure or risk of failure.
[2017-09-19] MEDS: ACETAMINOPHEN 1000 MG/100 ML VIAL (NON FORMULARY) IVPB PRN (10:06)
[2017-09-19] MEDS: SEVELAMER CARBONATE 800 MG TAB (FP) PO SCH ×3 (10:11→18:58)
[2017-09-19] MEDS: AMINO ACIDS/PROTEIN HYDROLYS 30 ML LIQUID.PKT NGT SCH (10:11)
[2017-09-19] MEDS: ISOSORBIDE MONONITRATE 30 MG TAB.SR.24H (FP) PO SCH (10:11)
[2017-09-19] MEDS: VITAMIN B COMP W-C 1 EA TABLET PO SCH (10:11)
[2017-09-19] MEDS: HEPARIN NA (PORCINE) 5,000 UNITS/ML 1ML VIAL SQ SCH ×2 (10:11→21:27)
[2017-09-19] MEDS: NIFEdipine E.R. 90 MG TABLET (FP) PO SCH ×2 (10:11→21:27)
[2017-09-19] MEDS: LACOSAMIDE 50 MG TABLET PO SCH ×2 (10:12→21:28)
--- NOTE | 2017-09-19 11:11 | PN ---
Teaching Attending Note Name of Resident: Delilah Mathis ATTENDING PHYSICIAN STATEMENT I saw and evaluated the patient. I reviewed the resident's note and discussed the case with the resident. I agree with the resident's findings and plan as documented. SUBJECTIVE: Pt seen and examined in the ICU. Extubated yesterday without incident. Some pain this AM. Chest tubes draining mostly serous fluid. Low grade temps. OBJECTIVE: Last Vital Signs Temp Pulse Resp BP Pulse Ox 100.1 F H 96 H 18 142/70 98 09/19/17 10:00 09/19/17 10:00 09/19/17 10:00 09/19/17 10:00 09/18/17 22:00 Intake & Output 09/16/17 09/17/17 09/18/17 09/19/17 23:59 23:59 23:59 23:59 Intake Total 700 1284.4 474 50 Output Total 50 400 140 240 Balance 650 884.4 334 -190 Weight 78.698 kg 80.4 kg 79.288 kg 75.551 kg Gen: NAD at rest Heart: RRR Lung: decreased breath sounds at the bases Abd: soft, nontender Ext: no edema Chest tube: no air leak CBC, BMP 09/19/17 06:10 09/19/17 06:10 Active Medications Acetaminophen (Ofirmev Injection -) 1,000 mg IVPB Q6H PRN PRN Reason: PAIN LEVEL 1-5 Last Admin: 09/19/17 10:06 Dose: 1,000 mg Amino Acids (Prosource No Carb Liquid Pkt) 30 ml NGT DAILY [facility] Last Admin: 09/19/17 10:11 Dose: 30 ml Chlorhexidine Gluconate (Hibiclens For Decolonization -) 1 applic TP HS [facility] Last Admin: 09/18/17 21:00 Dose: 1 applic Diphenhydramine HCl (Benadryl -) 25 mg PO Q6H PRN PRN Reason: FOR ITCHING Last Admin: 09/16/17 21:58 Dose: 25 mg Docusate Sodium (Colace Liquid -) 100 mg NGT TID PRN PRN Reason: CONSTIPATION Epoetin Mir (Epogen -) 4,000 unit IVPUSH ONCE ONE Stop: 09/19/17 09:47 Heparin Sodium (Porcine) (Heparin -) 5,[address] Last Admin: 09/19/17 10:11 Dose: 5,000 unit Hydralazine HCl (Apresoline -) 100 mg PO TID [facility] Last Admin: 09/19/17 05:42 Dose: 100 mg Hydralazine HCl (Apresoline Injection -) 10 mg IVPUSH Q4H PRN PRN Reason: HYPERTENSION Propofol (Diprivan -) 1,000,000 mcg in 100 mls @ 19.296 mls/hr IVPB TITR LANE; 40 MCG/KG/MIN PRN Reason: Protocol Last Admin: 09/18/17 20:49 Dose: Not Given Sodium Chloride (Normal Saline -) 250 mls @ 3,000 mls/hr IV PRN PRN PRN Reason: Hypotension during Dialysis Stop: 09/19/17 16:08 Sodium Chloride (Normal Saline -) 250 mls @ 3,000 mls/hr IV PRN PRN PRN Reason: Hypotension during Dialysis Stop: 09/20/17 09:46 Isosorbide Mononitrate (Imdur -) 30 mg PO DAILY [facility] Last Admin: 09/19/17 10:11 Dose: 30 mg Labetalol HCl (Normodyne -) 200 mg PO Q2H PRN PRN Reason: HYPERTENSION Last Admin: 09/17/17 08:03 Dose: 200 mg Labetalol HCl (Normodyne -) 400 mg PO TID [facility] Last Admin: 09/19/17 05:43 Dose: 400 mg Lacosamide (Vimpat -) 100 mg PO BID [facility] Last Admin: 09/19/17 10:12 Dose: 100 mg Lidocaine/Aluminum/Magnesium/Simeth (Magic Mouthwash *Sjr Formula* -) 5 ml MM Q6HPO [facility] Last Admin: 09/19/17 05:42 Dose: 5 ml Multivit/Ca Carb/B Cmplx/FA/Prenat (Nephro-Claudia -) 1 tablet PO DAILY [facility] Last Admin: 09/19/17 10:11 Dose: 1 tablet Nifedipine (Procardia Xl -) 90 mg PO BID [facility] Last Admin: 09/19/17 10:11 Dose: 90 mg Nystatin (Mycostatin Cream -) 1 applic TP Q6HPO [facility] Last Admin: 09/19/17 05:43 Dose: 1 applic Sevelamer Carbonate (Renvela -) 800 mg PO TIDCM [facility] Last Admin: 09/19/17 10:11 Dose: 800 mg ASSESSMENT AND PLAN: Hypertensive Urgency Acute Kidney Injury requiring HD Acute Hypoxic Respiratory Failure improving Pneumonia Loculated Pleural Effusion s/p L VATS/pneumolysis Hyponatremia improving Severe Sepsis resolving Lactic Acidosis resolved Thrombocytopenia improved Anemia Autism - monitoring off antibiotics - pain control - monitor chest tube output - CT per surgery - HD per renal with ultrafiltration - monitor H/H - monitor urine output, creatinine - renal biopsy when stable - BP control - taper Fio2 to keep Spo2 >90% - PO as tolerated - DVT/GI prophylaxis - continue ICU monitoring critical care time spent in reviewing chart, evaluating patient and formulating plan 35 min
--- NOTE | 2017-09-19 11:46 | PN ---
Progress Note (short form) - Note Progress Note: CC: htn urgency S: pt does not communicate well. appears comfortable, no overnight events o: Current Medications Generic Name Dose Route Start Last Admin Trade Name Freq PRN Reason Stop Dose Admin Acetaminophen 1,000 mg 09/18/17 09:46 09/19/17 10:06 Ofirmev Injection - IVPB 1,000 mg Q6H PRN Administration PAIN LEVEL 1-5 Amino Acids 30 ml 09/03/17 16:15 09/19/17 10:11 Prosource No Carb Liquid Pkt NGT [address] Administration Chlorhexidine Gluconate 1 applic 08/29/17 22:00 09/18/17 21:00 Hibiclens For Decolonization - TP [address] Administration Diphenhydramine HCl 25 mg 09/15/17 09:52 09/16/17 21:58 Benadryl - PO 25 mg Q6H PRN Administration FOR ITCHING Docusate Sodium 100 mg 09/04/17 10:00 Colace Liquid - NGT TID PRN CONSTIPATION Epoetin Mir 4,000 unit 09/19/17 09:46 Epogen - IVPUSH 09/19/17 09:47 ONCE ONE Heparin Sodium (Porcine) 5,000 unit 09/17/17 22:00 09/19/17 10:11 Heparin - SQ 5,[address] Administration Hydralazine HCl 100 mg 09/14/17 14:00 09/19/17 05:42 Apresoline - PO [address] Administration Hydralazine HCl 10 mg 09/17/17 16:51 Apresoline Injection - IVPUSH Q4H PRN HYPERTENSION Propofol 1,000,000 mcg in 100 mls @ 19.296 mls/hr 09/17/17 14:00 09/18/17 20: 49 Diprivan - IVPB Not Given TITR LANE Protocol 40 MCG/KG/MIN Sodium Chloride 250 mls @ 3,000 mls/hr 09/18/17 16:08 Normal Saline - IV 09/19/17 16:08 PRN PRN Hypotension during Dialysis Sodium Chloride 250 mls @ 3,000 mls/hr 09/19/17 09:46 Normal Saline - IV 09/20/17 09:46 PRN PRN Hypotension during Dialysis Isosorbide Mononitrate 30 mg 09/15/17 10:00 09/19/17 10:11 Imdur - PO [address] Administration Labetalol HCl 200 mg 09/15/17 09:10 09/17/17 08:03 Normodyne - PO 200 mg Q2H PRN Administration HYPERTENSION Labetalol HCl 400 mg 09/15/17 14:00 09/19/17 05:43 Normodyne - PO [address] Administration Lacosamide 100 mg 09/18/17 22:00 09/19/17 10:12 Vimpat - PO [address] Administration Lidocaine/Aluminum/Magnesium/Simeth 5 ml 09/12/17 00:00 09/19/17 05:42 Magic Mouthwash *Sjr Formula* - MM [address] Administration Multivit/Ca Carb/B Cmplx/FA/Prenat 1 tablet 09/13/17 10:00 09/19/17 10:11 Nephro-Claudia - PO [address] Administration Nifedipine 90 mg 09/16/17 10:00 09/19/17 10:11 Procardia Xl - PO [address] Administration Nystatin 1 applic 09/15/17 06:00 09/19/17 05:43 Mycostatin Cream - TP [address] Administration Sevelamer Carbonate 800 mg 09/16/17 17:30 09/19/17 10:11 Renvela - PO [address] Administration Vital Signs Period Temp Pulse Resp BP Sys/Mora Pulse Ox Last 24 Hr 98 F-100.1 F 93-108 15-26 101-169/53-118 98-98 nad, calm nad no jvd rrr s1 s2 no mrg dullness at left base, nl effort. + chest tube. no jaundice diaphoresis trace le edema bl abd nd pos bs CBC, BMP 09/19/17 06:10 09/19/17 06:10 echo 08/2017: nl lv/rv, no sig valve path tele: SR a/p: 22 m hx autism, seizures, possible underlying ckd/htn here with ams, respiratory failure/sepsis, anna requiring HD and hypertensive urgency. Cardiac course complicated by mild troponin elevation and prolonged qtc. 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 was uncontrolled when here 7/17 for seizure, with agitation then--no BP checked since that discharge she says -has had difficult to control BP here, requiring nifedipine and labetalol drips (the latter up to 2mg/min, i.e. 2800 mg/day, without good bp control) 09/14: increased hydralzine to 100 tid and add imdur 30 qd -09/15: BP severely elevated again this am (220/100). change nifedip 120 qd to 90 bid to cover overnight/early AM bp's (very short-acting med). change coreg to labetalol 400 TID for greater potency (with prn PO doses ordered), will likely need closer to 600-800 TID labetlol, will titrate up as needed -BP much improved, continue current regimen (nifedipine 90 bid, hydral 100 tid, labetalol 400 TID, imdur 30). try to cut down nifedipine dose (to 60 bid) +/- hydralazine dose later, if bp remains well controlled. - 09/18: bp meds mostly held yesterday and this morning due to surgery, intubation etc. bp remains overall well controlled. con't to monitor. -09/19: bp improved, cont current meds -deferring RAAS-blockers for now given ANNA with renal w/u ongoing anna requiring HD: -creat 2.1 here in november, ? no prior w/u per mother -suspect hypertensive renal failure, progressive since then, though possible causality in other direction (no MD f/u since november, per mother) -renal eval in progress, planned for biopsy -currently getting HD here abnormal troponins - flat trend, with intermediate range values - secondary to sepsis myocardial injury, vs demand ischemia (severe HTN, with tachycardia to 120s-130s). no clinical findings to support acs here. anemia: -chronic, mgm't per primary team respiratory failure s/p intubation, pleural effusion - with white out of left lung - 09/04 s/p chest tube placement. - plan per critical care/thoracic surgery--s/p Bronchoscopy, left VATS, drainage of effusion, pneumolysis 09/17. now with chest tube x 2.
--- NOTE | 2017-09-19 12:49 | PN ---
Progress Note, [facility] [employer] - Note Progress Note: Extubated. On pureed diet and nectar thick liquids. Selected Entries 09/18/17 09/18/17 09/18/17 06:00 18:00 22:00 Breakfast Temperature 99.4 F 100.0 F H 100 F H 09/19/17 09/19/17 09/19/17 02:00 06:00 09:22 Breakfast 75% Temperature 99 F 98 F 09/19/17 10:00 Breakfast Temperature 100.1 F H Laboratory Tests 09/18/17 09/19/17 05:57 06:10 WBC 10.9 H 8.6 Pt ate well yesterday but is more tired today with less PO accepted. Overtly he is tolerating puree/nectar. Potassium is elevated. Upon review with RD, Magic cup has a moderate amount of potassium. REC: D/C Magic cup for now. To re-evaluate tomorrow, if stronger, for possible trial of chopped and thin liquids.
[2017-09-19] MEDS: PROPOFOL 1,000,000 MCG/100 ML VIAL IVPB SCH (14:04)
[2017-09-19] MEDS ORDERED: SODIUM CHLORIDE 250 ML IV PRN (14:47)
[2017-09-19] MEDS ORDERED: EPOETIN ALFA 2,000 UNIT/1 ML VIAL IVPUSH ONE (15:00)
--- NOTE | 2017-09-19 17:28 | PN ---
Progress Note, Physician History of Present Illness: Pt seen and examined at bedside. He is awake and appears comfortable. - Current Medication List Current Medications: Active Medications Acetaminophen (Ofirmev Injection -) 1,000 mg IVPB Q6H PRN PRN Reason: PAIN LEVEL 1-5 Last Admin: 09/19/17 10:06 Dose: 1,000 mg Amino Acids (Prosource No Carb Liquid Pkt) 30 ml NGT DAILY [facility] Last Admin: 09/19/17 10:11 Dose: 30 ml Chlorhexidine Gluconate (Hibiclens For Decolonization -) 1 applic TP HS [facility] Last Admin: 09/18/17 21:00 Dose: 1 applic Diphenhydramine HCl (Benadryl -) 25 mg PO Q6H PRN PRN Reason: FOR ITCHING Last Admin: 09/16/17 21:58 Dose: 25 mg Docusate Sodium (Colace Liquid -) 100 mg NGT TID PRN PRN Reason: CONSTIPATION Heparin Sodium (Porcine) (Heparin -) 5,000 unit SQ BID [facility] Last Admin: 09/19/17 10:11 Dose: 5,000 unit Hydralazine HCl (Apresoline -) 100 mg PO TID [facility] Last Admin: 09/19/17 14:04 Dose: Not Given Hydralazine HCl (Apresoline Injection -) 10 mg IVPUSH Q4H PRN PRN Reason: HYPERTENSION Propofol (Diprivan -) 1,000,000 mcg in 100 mls @ 19.296 mls/hr IVPB TITR ALNE; 40 MCG/KG/MIN PRN Reason: Protocol Last Admin: 09/19/17 14:04 Dose: Not Given Sodium Chloride (Normal Saline -) 250 mls @ 3,000 mls/hr IV PRN PRN PRN Reason: Hypotension during Dialysis Stop: 09/20/17 14:46 Isosorbide Mononitrate (Imdur -) 30 mg PO DAILY [facility] Last Admin: 09/19/17 10:11 Dose: 30 mg Labetalol HCl (Normodyne -) 200 mg PO Q2H PRN PRN Reason: HYPERTENSION Last Admin: 09/17/17 08:03 Dose: 200 mg Labetalol HCl (Normodyne -) 400 mg PO TID [facility] Last Admin: 09/19/17 14:04 Dose: Not Given Lacosamide (Vimpat -) 100 mg PO BID [facility] Last Admin: 09/19/17 10:12 Dose: 100 mg Lidocaine/Aluminum/Magnesium/Simeth (Magic Mouthwash *Sjr Formula* -) 5 ml MM Q6HPO [facility] Last Admin: 09/19/17 05:42 Dose: 5 ml Multivit/Ca Carb/B Cmplx/FA/Prenat (Nephro-Claudia -) 1 tablet PO DAILY [facility] Last Admin: 09/19/17 10:11 Dose: 1 tablet Nifedipine (Procardia Xl -) 90 mg PO BID [facility] Last Admin: 09/19/17 10:11 Dose: 90 mg Nystatin (Mycostatin Cream -) 1 applic TP Q6HPO [facility] Last Admin: 09/19/17 05:43 Dose: 1 applic Sevelamer Carbonate (Renvela -) 800 mg PO TIDCM [facility] Last Admin: 09/19/17 13:00 Dose: Not Given - Objective Vital Signs: Vital Signs Temperature 99.1 F 09/19/17 15:25 Pulse Rate 111 H 09/19/17 17:00 Respiratory Rate 18 09/19/17 17:00 Blood Pressure 154/71 09/19/17 17:00 O2 Sat by Pulse Oximetry (%) 98 09/19/17 10:00 Constitutional: Yes: Calm Eyes: Yes: Conjunctiva Clear HENT: Yes: Atraumatic Neck: Yes: Supple Cardiovascular: Yes: S1, S2 Respiratory: Yes: CTA Bilaterally, Other (chest tubes in place) Gastrointestinal: Yes: Soft Genitourinary: Yes: Incontinence Musculoskeletal: Yes: WNL Edema: No Integumentary: Yes: WNL Neurological: Yes: Pre-Existing Deficit Labs: CBC, BMP 09/19/17 06:10 09/19/17 06:10 INR, PTT INR 1.03 (0.82-1.09) 09/17/17 06:45 Fibrinogen 558.0 mg/dL (238-498) H 09/17/17 06:45 Problem List - Problems (1) Acute renal failure Code(s): N17.9 - ACUTE KIDNEY FAILURE, UNSPECIFIED Qualifiers: Acute renal failure type: unspecified Qualified Code(s): N17.9 - Acute kidney failure, unspecified (2) Anemia Code(s): D64.9 - ANEMIA, UNSPECIFIED (3) Hyperkalemia Code(s): E87.5 - HYPERKALEMIA (4) Hypertensive urgency Code(s): I16.0 - HYPERTENSIVE URGENCY (5) Sepsis Code(s): A41.9 - SEPSIS, UNSPECIFIED ORGANISM Qualifiers: Sepsis type: sepsis due to unspecified organism Qualified Code(s): A41.9 - Sepsis, unspecified organism (6) Thrombocytopenia Code(s): D69.6 - THROMBOCYTOPENIA, UNSPECIFIED (7) Seizure Code(s): R56.9 - UNSPECIFIED CONVULSIONS Assessment/Plan Current Medications Generic Name Dose Route Start Last Admin Trade Name Freq PRN Reason Stop Dose Admin Acetaminophen 1,000 mg 09/18/17 09:46 09/19/17 10:06 Ofirmev Injection - IVPB 1,000 mg Q6H PRN Administration PAIN LEVEL 1-5 Amino Acids 30 ml 09/03/17 16:15 09/19/17 10:11 Prosource No Carb Liquid Pkt NGT [address] Administration Chlorhexidine Gluconate 1 applic 08/29/17 22:00 09/18/17 21:00 Hibiclens For Decolonization - TP [address] Administration Diphenhydramine HCl 25 mg 09/15/17 09:52 09/16/17 21:58 Benadryl - PO 25 mg Q6H PRN Administration FOR ITCHING Docusate Sodium 100 mg 09/04/17 10:00 Colace Liquid - NGT TID PRN CONSTIPATION Heparin Sodium (Porcine) 5,000 unit 09/17/17 22:00 09/19/17 10:11 Heparin - SQ 5,[address] Administration Hydralazine HCl 100 mg 09/14/17 14:00 09/19/17 14:04 Apresoline - PO Not Given TID LANE Hydralazine HCl 10 mg 09/17/17 16:51 Apresoline Injection - IVPUSH Q4H PRN HYPERTENSION Propofol 1,000,000 mcg in 100 mls @ 19.296 mls/hr 09/17/17 14:00 09/19/17 14: 04 Diprivan - IVPB Not Given TITR LANE Protocol 40 MCG/KG/MIN Sodium Chloride 250 mls @ 3,000 mls/hr 09/19/17 14:47 Normal Saline - IV 09/20/17 14:46 PRN PRN Hypotension during Dialysis Isosorbide Mononitrate 30 mg 09/15/17 10:00 09/19/17 10:11 Imdur - PO [address] Administration Labetalol HCl 200 mg 09/15/17 09:10 09/17/17 08:03 Normodyne - PO 200 mg Q2H PRN Administration HYPERTENSION Labetalol HCl 400 mg 09/15/17 14:00 09/19/17 14:04 Normodyne - PO Not Given TID LANE Lacosamide 100 mg 09/18/17 22:00 09/19/17 10:12 Vimpat - PO [address] Administration Lidocaine/Aluminum/Magnesium/Simeth 5 ml 09/12/17 00:00 09/19/17 05:42 Magic Mouthwash *Sjr Formula* - MM [address] Administration Multivit/Ca Carb/B Cmplx/FA/Prenat 1 tablet 09/13/17 10:00 09/19/17 10:11 Nephro-Claudia - PO [address] Administration Nifedipine 90 mg 09/16/17 10:00 09/19/17 10:11 Procardia Xl - PO [address] Administration Nystatin 1 applic 09/15/17 06:00 09/19/17 05:43 Mycostatin Cream - TP [address] Administration Sevelamer Carbonate 800 mg 09/16/17 17:30 09/19/17 13:00 Renvela - PO Not Given TIDCM LANE Impression 1. ANNA 2. HTN urgency/emergency 3. hyperkalemia 4. hyponatremia 5. autism 6. hx of seizure 7. anemia 8. CKD 9. lactic acidosis improving 10. thrombocytopenia 11. hyperkalemia 12. pleural effusion 13. acute resp failure requiring intubation 14. ESRD Plan - HD today - check post HD potassium - chest tube care - bp is improved - kidney biopsy after chest tubes removed - vascular for fistula before discharge - discussed outpt HD options at length with family - discussed with medical team - low potassium diet - will follow Dr Velasquez
[2017-09-19 21:13] LABS: ANION GAP 3 (8-16); BLOOD UREA NITROGEN 10 mg/dL (7-18); CALCIUM 8.1 mg/dL (8.5-10.1); CHLORIDE 104 mmol/L (98-107); CO2 36 mmol/L (21-32); CREATININE 2.7 mg/dL (0.7-1.3); GLUCOSE,RANDOM 102 mg/dL (74-106); POTASSIUM 3.8 mmol/L (3.5-5.1); SODIUM 143 mmol/L (136-145)
[2017-09-19] MEDS: CHLORHEXIDINE GLUCONATE 4% CLEANSER FOR DECOLONIZATION TP SCH (21:29)
[2017-09-20] MEDS: MAG HYDROX/ALH/SMC/DPHA/LIDO 240 ML MOUTHWASH MM SCH ×4 (00:06→18:15)
[2017-09-20] MEDS: NYSTATIN 100,000 UNIT/GM TOPICAL CREAM 15 GM TUBE TP SCH ×5 (00:06→23:31)
[2017-09-20] MEDS ORDERED: LIDOCAINE HCL 1%, 10 MG/ML (20ML VIAL) ONE (02:39)
[2017-09-20] MEDS: hydrALAZINE HCL 50 MG TABLET (FP) PO SCH ×3 (05:38→21:44)
[2017-09-20] MEDS: LABETALOL HCL 200 MG TABLET (FP) PO SCH ×3 (05:54→21:45)
[2017-09-20 06:24] LABS: HEMATOCRIT 25.1 % (35.4-49); HEMOGLOBIN 8.5 GM/dL (11.7-16.9); MCHC 33.9 g/dl (32.0-35.9); MEAN CELL VOLUME 88.4 fl (80-96); MEAN PLT VOLUME 7.3 fl (7.5-11.1); PLATELET COUNT 422 K/MM3 (134-434); RBC 2.84 M/mm3 (4.00-5.60); RDW 15.5 % (11.9-15.9); WHITE BLOOD COUNT 6.5 K/mm3 (4.0-10.0)
--- NOTE | 2017-09-20 06:40 | PN ---
Progress Note, Physician Chief Complaint: ID Remains stable Still requires dialysis Afebrile post operatively VAT Off antibiotics - Current Medication List Current Medications: Active Medications Acetaminophen (Ofirmev Injection -) 1,000 mg IVPB Q6H PRN PRN Reason: PAIN LEVEL 1-5 Last Admin: 09/19/17 10:06 Dose: 1,000 mg Amino Acids (Prosource No Carb Liquid Pkt) 30 ml NGT DAILY [facility] Last Admin: 09/19/17 10:11 Dose: 30 ml Chlorhexidine Gluconate (Hibiclens For Decolonization -) 1 applic TP HS [facility] Last Admin: 09/19/17 21:29 Dose: 1 applic Diphenhydramine HCl (Benadryl -) 25 mg PO Q6H PRN PRN Reason: FOR ITCHING Last Admin: 09/16/17 21:58 Dose: 25 mg Docusate Sodium (Colace Liquid -) 100 mg NGT TID PRN PRN Reason: CONSTIPATION Heparin Sodium (Porcine) (Heparin -) 5,000 unit SQ BID [facility] Last Admin: 09/19/17 21:27 Dose: 5,000 unit Hydralazine HCl (Apresoline -) 100 mg PO TID [facility] Last Admin: 09/20/17 05:38 Dose: 100 mg Hydralazine HCl (Apresoline Injection -) 10 mg IVPUSH Q4H PRN PRN Reason: HYPERTENSION Propofol (Diprivan -) 1,000,000 mcg in 100 mls @ 19.296 mls/hr IVPB TITR LANE; 40 MCG/KG/MIN PRN Reason: Protocol Last Admin: 09/19/17 14:04 Dose: Not Given Sodium Chloride (Normal Saline -) 250 mls @ 3,000 mls/hr IV PRN PRN PRN Reason: Hypotension during Dialysis Stop: 09/20/17 14:46 Isosorbide Mononitrate (Imdur -) 30 mg PO DAILY [facility] Last Admin: 09/19/17 10:11 Dose: 30 mg Labetalol HCl (Normodyne -) 200 mg PO Q2H PRN PRN Reason: HYPERTENSION Last Admin: 09/17/17 08:03 Dose: 200 mg Labetalol HCl (Normodyne -) 400 mg PO TID [facility] Last Admin: 09/20/17 05:54 Dose: 400 mg Lacosamide (Vimpat -) 100 mg PO BID [facility] Last Admin: 09/19/17 21:28 Dose: 100 mg Lidocaine/Aluminum/Magnesium/Simeth (Magic Mouthwash *Sjr Formula* -) 5 ml MM Q6HPO [facility] Last Admin: 09/20/17 05:36 Dose: 5 ml Multivit/Ca Carb/B Cmplx/FA/Prenat (Nephro-Claudia -) 1 tablet PO DAILY [facility] Last Admin: 09/19/17 10:11 Dose: 1 tablet Nifedipine (Procardia Xl -) 90 mg PO BID [facility] Last Admin: 09/19/17 21:27 Dose: 90 mg Nystatin (Mycostatin Cream -) 1 applic TP Q6HPO [facility] Last Admin: 09/20/17 05:39 Dose: 1 applic Sevelamer Carbonate (Renvela -) 800 mg PO TIDCM [facility] Last Admin: 09/19/17 18:58 Dose: Not Given - Objective Vital Signs: Vital Signs Temperature 98.6 F 09/20/17 06:00 Pulse Rate 98 H 09/20/17 06:00 Respiratory Rate 20 09/20/17 06:00 Blood Pressure 138/91 09/20/17 06:00 O2 Sat by Pulse Oximetry (%) 98 09/19/17 20:58 Constitutional: Yes: No Distress HENT: Yes: WNL, Atraumatic Neck: Yes: WNL, Supple Cardiovascular: Yes: S1, S2 Respiratory: Yes: WNL, Regular, CTA Bilaterally, Other (left chest tube) Labs: INR, PTT INR 1.03 (0.82-1.09) 09/17/17 06:45 Fibrinogen 558.0 mg/dL (238-498) H 09/17/17 06:45 Problem List - Problems (1) Acute renal failure Code(s): N17.9 - ACUTE KIDNEY FAILURE, UNSPECIFIED Qualifiers: Acute renal failure type: unspecified Qualified Code(s): N17.9 - Acute kidney failure, unspecified (2) Hypertensive urgency Code(s): I16.0 - HYPERTENSIVE URGENCY (3) Sepsis Code(s): A41.9 - SEPSIS, UNSPECIFIED ORGANISM Qualifiers: Sepsis type: sepsis due to unspecified organism Qualified Code(s): A41.9 - Sepsis, unspecified organism Assessment/Plan Microbiology 09/17/17 15:00 Pleural Fluid Gram Stain - Final 09/17/17 15:00 Lung - Left Lower Lobe Gram Stain - Final 09/17/17 15:00 Bronchial Washings - Left Lower Lobe Gram Stain - Final 09/17/17 15:00 Pleural Fluid VANESSA Preparation - Preliminary 09/17/17 15:00 Pleural Fluid Fungal Culture - Preliminary 09/17/17 15:00 Pleural Fluid Body Fluid Culture - Preliminary NO AEROBIC GROWTH, 24 HRS 09/17/17 15:00 Pleural Fluid AFB Smear Concentration - Preliminary 09/17/17 15:00 Pleural Fluid Mycobacterial Culture - Preliminary 09/17/17 15:00 Lung - Left Lower Lobe Tissue Culture - Preliminary NO AEROBIC GROWTH, 24 HRS 09/17/17 15:00 Lung - Left Lower Lobe VANESSA Preparation - Preliminary 09/17/17 15:00 Lung - Left Lower Lobe Fungal Culture - Preliminary 09/17/17 15:00 Lung - Left Lower Lobe AFB Smear Concentration - Preliminary 09/17/17 15:00 Lung - Left Lower Lobe Mycobacterial Culture - Preliminary 09/17/17 15:00 Bronchial Washings - Left Lower Lobe VANESSA Preparation - Preliminary 09/17/17 15:00 Bronchial Washings - Left Lower Lobe Fungal Culture - Preliminary 09/17/17 15:00 Bronchial Washings - Left Lower Lobe Bronchoalveolar Lavage Culture - Preliminary Pending Organism 09/17/17 15:00 Bronchial Washings - Left Lower Lobe AFB Smear Concentration - Preliminary 09/17/17 15:00 Bronchial Washings - Left Lower Lobe Mycobacterial Culture - Preliminary Laboratory Tests 09/19/17 09/20/17 06:10 05:55 WBC 8.6 Pending Hgb Pending Hct Pending Plt Count Pending Assessment S/P VAT left chest Chest xray shows clear expanded lung NO fever sign of infection Plan Kindly recall as needed [facility] BILLS
[2017-09-20 07:03] LABS: ANION GAP 6 (8-16); BLOOD UREA NITROGEN 19 mg/dL (7-18); CALCIUM 8.5 mg/dL (8.5-10.1); CHLORIDE 104 mmol/L (98-107); CO2 34 mmol/L (21-32); GLUCOSE,RANDOM 96 mg/dL (74-106); MAGNESIUM 2.1 mg/dL (1.8-2.4); POTASSIUM 4.8 mmol/L (3.5-5.1); SODIUM 144 mmol/L (136-145)
[2017-09-20 07:04] LABS: CREATININE 5.2 mg/dL (0.7-1.3); PHOSPHOROUS 6.6 mg/dL (2.5-4.9)
--- NOTE | 2017-09-20 08:09 | PN ---
Progress Note (short form) - Note Progress Note: POD#3 Pt extubated, no acute events noted. Vital Signs Period Temp Pulse Resp BP Sys/Mora Pulse Ox Last 24 Hr 98.4 F-100.1 F 92-111 16-22 101-160/53-125 98-98 CT:1-30 ml serous drainage, no air leak CT:2-50 ml serous drainage, no air leak GEN: appears comfortable CV:RRR Lungs: CTA b/l anteriorly, CT dressing c/d/i. No SQ emphysema LE: no calf tenderness or swelling noted b/l CBC, BMP 09/20/17 05:55 09/20/17 05:55 Microbiology 09/17/17 15:00 Pleural Fluid Gram Stain - Final 09/17/17 15:00 Lung - Left Lower Lobe Gram Stain - Final 09/17/17 15:00 Pleural Fluid Body Fluid Culture - Preliminary NO AEROBIC GROWTH, 24 HRS / 15:00 Lung - Left Lower Lobe Tissue Culture - Preliminary NO AEROBIC GROWTH, 24 HRS CXR: no pntx, two CT in place A/P: 22 yo male s/p Bronchoscopy, left VATS, drainage of effusion, pneumolysis, POD#3 Pt with low grade temp, No growth on cultures to date, no leukocytosis, monitoring pt off of IV abx and awaiting final VANESSA/AFB results S/w Dr. Ivy and CT suction discontinued today. Repeat CXR at 12 and if lung remains inflated will remove CT with the least driange Continue pain management as needed
[2017-09-20] MEDS: SEVELAMER CARBONATE 800 MG TAB (FP) PO SCH ×3 (08:36→18:15)
[2017-09-20] MEDS: LACOSAMIDE 50 MG TABLET PO SCH ×2 (09:21→21:44)
[2017-09-20] MEDS: NIFEdipine E.R. 90 MG TABLET (FP) PO SCH ×2 (09:21→21:45)
[2017-09-20] MEDS: VITAMIN B COMP W-C 1 EA TABLET PO SCH (09:21)
[2017-09-20] MEDS: ISOSORBIDE MONONITRATE 30 MG TAB.SR.24H (FP) PO SCH (09:21)
[2017-09-20] MEDS: AMINO ACIDS/PROTEIN HYDROLYS 30 ML LIQUID.PKT NGT SCH (09:21)
[2017-09-20] MEDS: HEPARIN NA (PORCINE) 5,000 UNITS/ML 1ML VIAL SQ SCH ×2 (09:21→21:44)
--- NOTE | 2017-09-20 10:19 | PN ---
Progress Note, CAN LINE EXAMINER - Note Progress Note: Selected Entries 09/18/17 09/18/17 09/18/17 06:00 18:00 22:00 Temperature 99.4 F 100.0 F H 100 F H 09/19/17 09/19/17 09/19/17 02:00 06:00 10:00 Temperature 99 F 98 F 100.1 F H 09/19/17 09/19/17 09/19/17 14:00 15:25 18:00 Temperature 99.6 F 99.1 F 98.4 F 09/19/17 09/20/17 22:00 06:00 Temperature 98.6 F 98.6 F Laboratory Tests 09/18/17 09/19/17 09/20/17 05:57 06:10 05:55 WBC 10.9 H 8.6 6.5 Swallowing reassessed. Efficient mastication, bolus formation, transfer. Impulsive driking of thin apple juice though a straw with one brief, hard cough responsively. Aspiration risk? on thin liquid. Not stable for MBS, but looking better overall. REC: Trial of Dysphagia Whole diet (no rice) and continue nectar thick liquid for now. Monitor tolerance.
--- NOTE | 2017-09-20 11:14 | PN ---
Teaching Attending Note Name of Resident: Delilah Mathis ATTENDING PHYSICIAN STATEMENT I saw and evaluated the patient. I reviewed the resident's note and discussed the case with the resident. I agree with the resident's findings and plan as documented. SUBJECTIVE: Pt seen and examined in the ICU. Nonverbal. Chest tube drainage minimal, taken off suction this AM. Fever curve trending down. OBJECTIVE: Last Vital Signs Temp Pulse Resp BP Pulse Ox 98.6 F 99 H 18 140/82 96 09/20/17 06:00 09/20/17 08:00 09/20/17 08:00 09/20/17 08:00 09/20/17 10:00 Intake & Output 09/17/17 09/18/17 09/19/17 09/20/17 23:59 23:59 23:59 23:59 Intake Total 1284.4 474 740 250 Output Total 400 140 240 80 Balance 884.4 334 500 170 Weight 80.4 kg 79.288 kg 75.551 kg 73.595 kg Gen: NAD at rest Heart: RRR Lung: decreased breath sounds at the bases Abd: soft, nontender Ext: no edema Chest tube: serous drainage, no air leak CBC, BMP 09/20/17 05:55 09/20/17 05:55 Active Medications Acetaminophen (Ofirmev Injection -) 1,000 mg IVPB Q6H PRN PRN Reason: PAIN LEVEL 1-5 Last Admin: 09/19/17 10:06 Dose: 1,000 mg Amino Acids (Prosource No Carb Liquid Pkt) 30 ml NGT DAILY [facility] Last Admin: 09/20/17 09:21 Dose: 30 ml Chlorhexidine Gluconate (Hibiclens For Decolonization -) 1 applic TP HS [facility] Last Admin: 09/19/17 21:29 Dose: 1 applic Diphenhydramine HCl (Benadryl -) 25 mg PO Q6H PRN PRN Reason: FOR ITCHING Last Admin: 09/16/17 21:58 Dose: 25 mg Docusate Sodium (Colace Liquid -) 100 mg NGT TID PRN PRN Reason: CONSTIPATION Heparin Sodium (Porcine) (Heparin -) 5,000 unit SQ BID [facility] Last Admin: 09/20/17 09:21 Dose: 5,000 unit Hydralazine HCl (Apresoline -) 100 mg PO TID [facility] Last Admin: 09/20/17 05:38 Dose: 100 mg Hydralazine HCl (Apresoline Injection -) 10 mg IVPUSH Q4H PRN PRN Reason: HYPERTENSION Sodium Chloride (Normal Saline -) 250 mls @ 3,000 mls/hr IV PRN PRN PRN Reason: Hypotension during Dialysis Stop: 09/20/17 14:46 Isosorbide Mononitrate (Imdur -) 30 mg PO DAILY [facility] Last Admin: 09/20/17 09:21 Dose: 30 mg Labetalol HCl (Normodyne -) 200 mg PO Q2H PRN PRN Reason: HYPERTENSION Last Admin: 09/17/17 08:03 Dose: 200 mg Labetalol HCl (Normodyne -) 400 mg PO TID [facility] Last Admin: 09/20/17 05:54 Dose: 400 mg Lacosamide (Vimpat -) 100 mg PO BID [facility] Last Admin: 09/20/17 09:21 Dose: 100 mg Lidocaine/Aluminum/Magnesium/Simeth (Magic Mouthwash *Sjr Formula* -) 5 ml MM Q6HPO [facility] Last Admin: 09/20/17 05:36 Dose: 5 ml Multivit/Ca Carb/B Cmplx/FA/Prenat (Nephro-Claudia -) 1 tablet PO DAILY [facility] Last Admin: 09/20/17 09:21 Dose: 1 tablet Nifedipine (Procardia Xl -) 90 mg PO BID [facility] Last Admin: 09/20/17 09:21 Dose: 90 mg Nystatin (Mycostatin Cream -) 1 applic TP Q6HPO [facility] Last Admin: 09/20/17 05:39 Dose: 1 applic Sevelamer Carbonate (Renvela -) 800 mg PO TIDCM [facility] Last Admin: 09/20/17 08:36 Dose: 800 mg ASSESSMENT AND PLAN: Hypertensive Urgency resolved Acute Kidney Injury requiring HD Acute Hypoxic Respiratory Failure improving Pneumonia Loculated Pleural Effusion s/p L VATS/pneumolysis Severe Sepsis resolved Lactic Acidosis resolved Thrombocytopenia improved Anemia Autism - monitoring off antibiotics - pain control - monitor chest tube output - CT per surgery - HD per renal with ultrafiltration - monitor H/H - monitor urine output, creatinine - renal biopsy when stable - BP control - taper Fio2 to keep Spo2 >90% - PO as tolerated - DVT/GI prophylaxis - continue ICU monitoring critical care time spent in reviewing chart, evaluating patient and formulating plan 35 min
--- NOTE | 2017-09-20 11:32 | PATH ---
Cytology Non-Gynecological Report Patient Name: PATRICK FERGUSON Med. Rec. 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 Specimen(s) Received PLEURAL FLUID Clinical History Pneumonia Final Diagnosis PLEURAL FLUID FOR CYTOLOGY: SATISFACTORY FOR EVALUATION NO MALIGNANT CELLS IDENTIFIED. MESOTHELIAL CELLS, MACROPHAGES, FEW NEUTROPHILS AND RARE LYMPHOCYTES PRESENT. Electronically Signed Lydia Dodson M.D. Gross Description Approximately 15 cc of yellow fluid received fixed in 50% alcohol. Two cytofunnels and one cellblock prepared.
--- NOTE | 2017-09-20 11:49 | PN ---
Progress Note (short form) - Note Progress Note: Subjective: The patient was seen and examined at the bedside, he is non-verbal but awake Current Medications Generic Name Dose Route Start Last Admin Trade Name Freq PRN Reason Stop Dose Admin Acetaminophen 1,000 mg 09/18/17 09:46 09/19/17 10:06 Ofirmev Injection - IVPB 1,000 mg Q6H PRN Administration PAIN LEVEL 1-5 Amino Acids 30 ml 09/03/17 16:15 09/20/17 09:21 Prosource No Carb Liquid Pkt NGT [address] Administration Chlorhexidine Gluconate 1 applic 08/29/17 22:00 09/19/17 21:29 Hibiclens For Decolonization - TP [address] Administration Diphenhydramine HCl 25 mg 09/15/17 09:52 09/16/17 21:58 Benadryl - PO 25 mg Q6H PRN Administration FOR ITCHING Docusate Sodium 100 mg 09/04/17 10:00 Colace Liquid - NGT TID PRN CONSTIPATION Heparin Sodium (Porcine) 5,000 unit 09/17/17 22:00 09/20/17 09:21 Heparin - SQ 5,[address] Administration Hydralazine HCl 100 mg 09/14/17 14:00 09/20/17 05:38 Apresoline - PO [address] Administration Hydralazine HCl 10 mg 09/17/17 16:51 Apresoline Injection - IVPUSH Q4H PRN HYPERTENSION Sodium Chloride 250 mls @ 3,000 mls/hr 09/19/17 14:47 Normal Saline - IV 09/20/17 14:46 PRN PRN Hypotension during Dialysis Isosorbide Mononitrate 30 mg 09/15/17 10:00 09/20/17 09:21 Imdur - PO [address] Administration Labetalol HCl 200 mg 09/15/17 09:10 09/17/17 08:03 Normodyne - PO 200 mg Q2H PRN Administration HYPERTENSION Labetalol HCl 400 mg 09/15/17 14:00 09/20/17 05:54 Normodyne - PO [address] Administration Lacosamide 100 mg 09/18/17 22:00 09/20/17 09:21 Vimpat - PO [address] Administration Lidocaine/Aluminum/Magnesium/Simeth 5 ml 09/12/17 00:00 09/20/17 05:36 Magic Mouthwash *Sjr Formula* - MM [address] Administration Multivit/Ca Carb/B Cmplx/FA/Prenat 1 tablet 09/13/17 10:00 09/20/17 09:21 Nephro-Claudia - PO [address] Administration Nifedipine 90 mg 09/16/17 10:00 09/20/17 09:21 Procardia Xl - PO [address] Administration Nystatin 1 applic 09/15/17 06:00 09/20/17 05:39 Mycostatin Cream - TP [address] Administration Sevelamer Carbonate 800 mg 09/16/17 17:30 09/20/17 08:36 Renvela - PO [address] Administration Objective: Vital Signs Period Temp Pulse Resp BP Sys/Mora Pulse Ox Last 24 Hr 98.4 F-99.6 F 92-111 16-22 101-160/53-125 96-98 Physical Exam: General: NAD Lungs: Decreased breath sound of left base Heart: RRR, S1S2 Abd: Soft, non-tender, non-distended. normoactive bowel sounds Ext: No edema Skin: Left chest tube x1 to gravity CBCD WBC 6.5 K/mm3 (4.0-10.0) 09/20/17 05:55 RBC 2.84 M/mm3 (4.00-5.60) L 09/20/17 05:55 Hgb 8.5 GM/dL (11.7-16.9) L 09/20/17 05:55 Hct 25.1 % (35.4-49) L 09/20/17 05:55 MCV 88.4 fl (80-96) 09/20/17 05:55 MCHC 33.9 g/dl (32.0-35.9) 09/20/17 05:55 RDW 15.5 % (11.9-15.9) 09/20/17 05:55 Plt Count 422 K/MM3 (134-434) 09/20/17 05:55 MPV 7.3 fl (7.5-11.1) L 09/20/17 05:55 CMP Sodium 144 mmol/L (136-145) 09/20/17 05:55 Potassium 4.8 mmol/L (3.5-5.1) D 09/20/17 05:55 Chloride 104 mmol/L (98-107) 09/20/17 05:55 Carbon Dioxide 34 mmol/L (21-32) H 09/20/17 05:55 Anion Gap 6 (8-16) L 09/20/17 05:55 BUN 19 mg/dL (7-18) H D 09/20/17 05:55 Creatinine 5.2 mg/dL (0.7-1.3) H D 09/20/17 05:55 Creat Clearance w eGFR 14.13 (>60) 09/14/17 12:35 Random Glucose 96 mg/dL (74-106) 09/20/17 05:55 Calcium 8.5 mg/dL (8.5-10.1) 09/20/17 05:55 Total Bilirubin < 0.1 mg/dL (0.2-1.0) L D 09/14/17 12:35 AST 17 U/L (15-37) 09/14/17 12:35 ALT 16 U/L (12-78) 09/14/17 12:35 Alkaline Phosphatase 75 U/L (45-117) 09/14/17 12:35 Total Protein 6.1 g/dl (6.4-8.2) L 09/14/17 12:35 Albumin 2.0 g/dl (3.4-5.0) L 09/14/17 12:35 CARDIAC ENZYMES Creatine Kinase 373 IU/L (39-308) H 08/29/17 12:37 Troponin I 0.25 ng/ml (0.00-0.05) H 08/31/17 05:40 Microbiology 09/17/17 15:00 Bronchial Washings - Left Lower Lobe Gram Stain - Final 09/17/17 15:00 Bronchial Washings - Left Lower Lobe Bronchoalveolar Lavage Culture - Preliminary Haemophilus Species 09/17/17 15:00 Lung - Left Lower Lobe AFB Smear Concentration - Final 09/17/17 15:00 Lung - Left Lower Lobe Mycobacterial Culture - Preliminary 09/17/17 15:00 Pleural Fluid AFB Smear Concentration - Final 09/17/17 15:00 Pleural Fluid Mycobacterial Culture - Preliminary 09/17/17 15:00 Bronchial Washings - Left Lower Lobe AFB Smear Concentration - Final 09/17/17 15:00 Bronchial Washings - Left Lower Lobe Mycobacterial Culture - Preliminary 09/17/17 15:00 Lung - Left Lower Lobe Gram Stain - Final 09/17/17 15:00 Lung - Left Lower Lobe Tissue Culture - Preliminary NO AEROBIC GROWTH, 24 HRS 09/17/17 15:00 Pleural Fluid Gram Stain - Final 09/17/17 15:00 Pleural Fluid Body Fluid Culture - Preliminary NO AEROBIC GROWTH, 24 HRS 09/17/17 15:00 Bronchial Washings - Left Lower Lobe VANESSA Preparation - Preliminary 09/17/17 15:00 Bronchial Washings - Left Lower Lobe Fungal Culture - Preliminary 09/17/17 15:00 Lung - Left Lower Lobe VANESSA Preparation - Preliminary 09/17/17 15:00 Lung - Left Lower Lobe Fungal Culture - Preliminary 09/17/17 15:00 Pleural Fluid VANESSA Preparation - Preliminary 09/17/17 15:00 Pleural Fluid Fungal Culture - Preliminary 09/11/17 13:15 Blood - Peripheral Venous Blood Culture - Final NO GROWTH AFTER 5 DAYS INCUBATION 09/11/17 12:44 Blood - Peripheral Venous Blood Culture - Final NO GROWTH AFTER 5 DAYS INCUBATION 09/04/17 16:30 Sputum - Endotrachea Suction/Ventilator Gram Stain - Final 09/04/17 16:30 Sputum - Endotrachea Suction/Ventilator Sputum Culture - Final 09/05/17 23:00 Stool Shiga Toxin Test - Final 09/06/17 16:15 Stool Salmonella/Shigella Culture - Final Yeast Like Organism 09/06/17 16:15 Stool Campylobacter Culture - Final NO GROWTH OF CAMPYLOBACTER SPECIES OBTAINED 09/06/17 16:15 Stool Yersinia Culture - Final NO GROWTH OF YERSINIA SPECIES OBTAINED 09/06/17 16:15 Stool Vibrio Culture - Final NO GROWTH OF VIBRIO SPECIES OBTAINED 09/06/17 16:15 Stool Escherichia coli 0157 Culture - Final NO GROWTH OF E COLI 0157 OBTAINED 09/02/17 16:20 Blood - Peripheral Venous Blood Culture - Final NO GROWTH AFTER 5 DAYS INCUBATION 09/04/17 11:45 Pleural Fluid Gram Stain - Final 09/04/17 11:45 Pleural Fluid Body Fluid Culture - Final NO GROWTH OF AEROBIC ORGANISMS AFTER 48 HOURS INCUBATION 09/04/17 11:45 Pleural Fluid Anaerobic Culture - Final NO ANAEROBES WERE ISOLATED 09/04/17 11:45 Pleural Fluid AFB Smear Concentration - Final 09/04/17 11:45 Pleural Fluid Mycobacterial Culture - Preliminary 09/05/17 23:00 Stool Clostridium difficile Antigen (JONAH) - Final 09/05/17 23:00 Stool Clostridium difficile Toxin Assay - Final 09/01/17 15:00 Blood - Central Line Blood Culture - Final NO GROWTH AFTER 5 DAYS INCUBATION 09/01/17 15:00 Blood - Central Line Blood Culture - Final NO GROWTH AFTER 5 DAYS INCUBATION 09/02/17 16:14 Pleural Fluid Gram Stain - Final 09/02/17 16:14 Pleural Fluid Body Fluid Culture - Final NO GROWTH OF AEROBIC ORGANISMS AFTER 48 HOURS INCUBATION 09/02/17 16:14 Pleural Fluid Anaerobic Culture - Final NO ANAEROBES WERE ISOLATED 09/04/17 11:45 Pleural Fluid VANESSA Preparation - Preliminary 09/04/17 11:45 Pleural Fluid Fungal Culture - Preliminary 09/02/17 18:00 Urine - Urine Clean Catch Urine Culture - Final NO GROWTH OBTAINED 08/29/17 12:37 Blood - Peripheral Venous Blood Culture - Final NO GROWTH AFTER 5 DAYS INCUBATION 08/29/17 12:37 Blood - Peripheral Venous Blood Culture - Final NO GROWTH AFTER 5 DAYS INCUBATION 08/29/17 10:52 Urine - Urine Clean Catch Urine Culture - Final NO GROWTH OBTAINED Assessment: This is a 22 year old male with PMHx of HTN, autism, epilepsy, who presented to the ED with diarrhea and increased dyspnea and was found to have hypertensive emergency, ANNA, pneumonia with a complicated hospital course including acute respiratory failure requiring intubation and a persistent left pleural effusion requiring vats and pneumolysis on 09/17 now with chest tubes x2 Plan: 1) Acute hypoxic respiratory failure, large left pleural effusion - S/p thoracentesis 09/02 - S/p pigtail 09/04 - S/p bronchoscopy/left VATS/drainage of effusion/pneumolysis 09/17 - Left chest tubes x2 placed to gravity this morning. Chest x-ray this morning with little change since prior exam. For repeat chest x-ray this afternoon, surgery will review and decide whether to pull drain with least amount of output - Appreciate surgery consult - Appreciate pulmonary consult 2) Severe sepsis 2/2 pneumonia - Afebrile - Continue to observe off antibiotics at this time - Appreciate ID consult 3) ANNA, ESRD - Tolerated HD yesterday - For kidney biopsy once chest tubes are removed - Will need fistula prior to discharge - Appreciate nephrology consult 4) Hypertensive emergency - BPs better controlled - Continue Hydralazine - Continue Imdur - Continue Labetolol - Continue Procardia Xl 5) Epilepsy - Continue Vimpat 6) F/E/N: - Dysphagia pureed - Monitor electrolytes 7) Prophylaxis: - Heparin 5,000u sq bid - PT 8) Dispo: - Requires continued inpatient care CODE STATUS: FULL CODE Visit type - Emergency Visit Emergency Visit: Yes ED Registration Date: 08/29/17 Care time: The patient presented to the Emergency Department on the above date and was hospitalized for further evaluation of their emergent condition. - New Patient This patient is new to me today: No - Critical Care Critical Care patient: Yes Total Critical Care Time (in minutes): 45 Critical Care Statement: The care of this patient involved high complexity decision making to prevent further life threatening deterioration of the patient 's condition and/or to evaluate & treat vital organ system(s) failure or risk of failure.
--- NOTE | 2017-09-20 13:19 | PN ---
Physical Exam: SUBJECTIVE: Patient seen and examined in the ICU. Chest tube suction D/Salvador this morning. Pt looks comfortable. Pt's mother at bedside, and agrees that pt is not exhibiting any signs of pain. No events overnight. OBJECTIVE: Vital Signs Period Temp Pulse Resp BP Sys/Mora Pulse Ox Last 24 Hr 98.4 F-99.6 F 92-111 16-22 113-160/62-125 96-98 GENERAL: Alert, awake, in NAD. LUNGS: CTAB. [address] HEART: Regular rhythm, tachycardic, +S1/S2, no murmurs appreciated. ABDOMEN: Soft, nontender, nondistended, no guarding. EXTREMITIES: Warm, well-perfused, no edema. NEUROLOGICAL: Cranial nerves II through XII grossly intact. No facial droop. Gait not observed. Laboratory Results - last 24 hr 09/19/17 09/20/17 09/20/17 19:00 05:55 05:55 WBC 6.5 RBC 2.84 L Hgb 8.5 L Hct 25.1 L MCV 88.4 MCH 30.0 MCHC 33.9 RDW 15.5 Plt Count 422 MPV 7.3 L Sodium 143 144 Potassium 3.8 D 4.8 D Chloride 104 104 Carbon Dioxide 36 H 34 H Anion Gap 3 L 6 L BUN 10 D 19 H D Creatinine 2.7 H D 5.2 H D Random Glucose 102 96 Calcium 8.1 L 8.5 Phosphorus 6.6 H Magnesium 2.1 Active Medications Generic Name Dose Route Start Last Admin Trade Name Freq PRN Reason Stop Dose Admin Acetaminophen 1,000 mg 09/18/17 09:46 09/19/17 10:06 Ofirmev Injection - IVPB 1,000 mg Q6H PRN Administration PAIN LEVEL 1-5 Amino Acids 30 ml 09/03/17 16:15 09/20/17 09:21 Prosource No Carb Liquid Pkt NGT [address] Administration Chlorhexidine Gluconate 1 applic 08/29/17 22:00 09/19/17 21:29 Hibiclens For Decolonization - TP [address] Administration Diphenhydramine HCl 25 mg 09/15/17 09:52 09/16/17 21:58 Benadryl - PO 25 mg Q6H PRN Administration FOR ITCHING Docusate Sodium 100 mg 09/04/17 10:00 Colace Liquid - NGT TID PRN CONSTIPATION Heparin Sodium (Porcine) 5,000 unit 09/17/17 22:00 09/20/17 09:21 Heparin - SQ 5,[address] Administration Hydralazine HCl 100 mg 09/14/17 14:00 09/20/17 05:38 Apresoline - PO [address] Administration Hydralazine HCl 10 mg 09/17/17 16:51 Apresoline Injection - IVPUSH Q4H PRN HYPERTENSION Sodium Chloride 250 mls @ 3,000 mls/hr 09/19/17 14:47 Normal Saline - IV 09/20/17 14:46 PRN PRN Hypotension during Dialysis Isosorbide Mononitrate 30 mg 09/15/17 10:00 09/20/17 09:21 Imdur - PO [address] Administration Labetalol HCl 200 mg 09/15/17 09:10 09/17/17 08:03 Normodyne - PO 200 mg Q2H PRN Administration HYPERTENSION Labetalol HCl 400 mg 09/15/17 14:00 09/20/17 05:54 Normodyne - PO [address] Administration Lacosamide 100 mg 09/18/17 22:00 09/20/17 09:21 Vimpat - PO [address] Administration Lidocaine/Aluminum/Magnesium/Simeth 5 ml 09/12/17 00:00 09/20/17 12:14 Magic Mouthwash *Sjr Formula* - MM [address] Administration Multivit/Ca Carb/B Cmplx/FA/Prenat 1 tablet 09/13/17 10:00 09/20/17 09:21 Nephro-Leatha - PO [address] Administration Nifedipine 90 mg 09/16/17 10:00 09/20/17 09:21 Procardia Xl - PO [address] Administration Nystatin 1 applic 09/15/17 06:00 09/20/17 05:39 Mycostatin Cream - TP [address] Administration Sevelamer Carbonate 800 mg 09/16/17 17:30 09/20/17 12:14 Renvela - PO [address] Administration IMAGIN09/20/17 6a CXR -> no significant change 09/20/17 12p CXR -> questionable tiny Left apical PTX. ASSESSMENT/PLAN: 22M with PMH of autism and seizure disorder, presents with severe htn, anemia, thrombocytopenia, leukocytosis, hyperkalemia, ANNA, admitted to ICU. # loculated Left pleural effusion - s/p Left VATS/pneumolysis on 09/17/[address] Ivy - POD #3 - post-op care per Dr. Ivy: Chest tube suction D/Salvador this morning. Will possibly pull one Chest Tube later today. - pain control with Ofirmev prn - f/u pleural fluid cultures # htn urgency - continue Labetalol TID (plus Labetalol po q2hr prn), Hydralazine TID (plus Hydralazine IVpush prn), Procardia BID, and Imdur - Cardiology (Dr. Brenner) recs appreciated: deferring RAAS-blockers for now given ANNA with renal w/u ongoing - goal BP 120/80 # sepsis 2/2 pneumonia - leukocytosis resolved - pt afebrile - continue to observe off antibiotics # acute hypoxic respiratory failure - improved - pt re-intubated for procedure 09/17/17 and extubated 09/18/17 (pt intubated and extubated 09/06/17) # ANNA - Nephrology (Dr. Velasquez) recs appreciated: pt received HD yesterday 2/2 hyperkalemia, pt scheduled to receive his regular HD treatment today as well. - renal biopsy to be done once pt stable - IR can get biopsy if cleared by anesthesia - s/p permacath placement 09/10/17 - monitor Cr and UOP - continue Nephro-leatha and Renvela # anemia - pt s/p 4U PRBCs this hospitalization (with most recent unit on 09/10/17) - hgb stable - monitor for overt s/s of bleeding # seizure - continue Vimpat BID # FEN - Fluids: po - Electrolytes: hyperkalemia and hyperphosphatemia noted, dialysis scheduled for today, continue to monitor - Nutrition: dysphagia whole with Peggs thick liquids, with Ensure chocolate pudding plus Prosource daily # Prophylaxis - DVT ppx with Heparin BID Visit type - Emergency Visit Emergency Visit: Yes ED Registration Date: 08/29/17 Care time: The patient presented to the Emergency Department on the above date and was hospitalized for further evaluation of their emergent condition. - New Patient This patient is new to me today: No - Critical Care Critical Care patient: Yes Total Critical Care Time (in minutes): 37 Critical Care Statement: The care of this patient involved high complexity decision making to prevent further life threatening deterioration of the patient 's condition and/or to evaluate & treat vital organ system(s) failure or risk of failure.
[2017-09-20] MEDS ORDERED: SODIUM CHLORIDE 250 ML IV PRN (14:13)
--- NOTE | 2017-09-20 14:13 | PN ---
Progress Note, Physician History of Present Illness: Pt seen and examined at bedside. He is awake and appears comfortable. - Current Medication List Current Medications: Active Medications Acetaminophen (Ofirmev Injection -) 1,000 mg IVPB Q6H PRN PRN Reason: PAIN LEVEL 1-5 Last Admin: 09/19/17 10:06 Dose: 1,000 mg Amino Acids (Prosource No Carb Liquid Pkt) 30 ml NGT DAILY [facility] Last Admin: 09/20/17 09:21 Dose: 30 ml Chlorhexidine Gluconate (Hibiclens For Decolonization -) 1 applic TP HS [facility] Last Admin: 09/19/17 21:29 Dose: 1 applic Diphenhydramine HCl (Benadryl -) 25 mg PO Q6H PRN PRN Reason: FOR ITCHING Last Admin: 09/16/17 21:58 Dose: 25 mg Docusate Sodium (Colace Liquid -) 100 mg NGT TID PRN PRN Reason: CONSTIPATION Heparin Sodium (Porcine) (Heparin -) 5,000 unit SQ BID [facility] Last Admin: 09/20/17 09:21 Dose: 5,000 unit Hydralazine HCl (Apresoline -) 100 mg PO TID [facility] Last Admin: 09/20/17 05:38 Dose: 100 mg Hydralazine HCl (Apresoline Injection -) 10 mg IVPUSH Q4H PRN PRN Reason: HYPERTENSION Sodium Chloride (Normal Saline -) 250 mls @ 3,000 mls/hr IV PRN PRN PRN Reason: Hypotension during Dialysis Stop: 09/20/17 14:46 Isosorbide Mononitrate (Imdur -) 30 mg PO DAILY [facility] Last Admin: 09/20/17 09:21 Dose: 30 mg Labetalol HCl (Normodyne -) 200 mg PO Q2H PRN PRN Reason: HYPERTENSION Last Admin: 09/17/17 08:03 Dose: 200 mg Labetalol HCl (Normodyne -) 400 mg PO TID [facility] Last Admin: 09/20/17 05:54 Dose: 400 mg Lacosamide (Vimpat -) 100 mg PO BID [facility] Last Admin: 09/20/17 09:21 Dose: 100 mg Lidocaine/Aluminum/Magnesium/Simeth (Magic Mouthwash *Sjr Formula* -) 5 ml MM Q6HPO [facility] Last Admin: 09/20/17 12:14 Dose: 5 ml Multivit/Ca Carb/B Cmplx/FA/Prenat (Nephro-Claudia -) 1 tablet PO DAILY [facility] Last Admin: 09/20/17 09:21 Dose: 1 tablet Nifedipine (Procardia Xl -) 90 mg PO BID [facility] Last Admin: 09/20/17 09:21 Dose: 90 mg Nystatin (Mycostatin Cream -) 1 applic TP Q6HPO [facility] Last Admin: 09/20/17 05:39 Dose: 1 applic Sevelamer Carbonate (Renvela -) 800 mg PO TIDCM [facility] Last Admin: 09/20/17 12:14 Dose: 800 mg - Objective Vital Signs: Vital Signs Temperature 98.9 F 09/20/17 10:00 Pulse Rate 101 H 09/20/17 12:00 Respiratory Rate 20 09/20/17 12:00 Blood Pressure 154/95 09/20/17 12:00 O2 Sat by Pulse Oximetry (%) 96 09/20/17 10:00 Constitutional: Yes: Calm Eyes: Yes: Conjunctiva Clear HENT: Yes: Atraumatic Neck: Yes: Supple Cardiovascular: Yes: S1, S2 Respiratory: Yes: On Nasal O2, Other (2 chest tubes) Gastrointestinal: Yes: Normal Bowel Sounds, Soft Genitourinary: Yes: Incontinence Musculoskeletal: Yes: WNL Edema: No Neurological: Yes: Pre-Existing Deficit Labs: CBC, BMP 09/20/17 05:55 09/20/17 05:55 INR, PTT INR 1.03 (0.82-1.09) 09/17/17 06:45 Fibrinogen 558.0 mg/dL (238-498) H 09/17/17 06:45 Problem List - Problems (1) Acute renal failure Code(s): N17.9 - ACUTE KIDNEY FAILURE, UNSPECIFIED Qualifiers: Acute renal failure type: unspecified Qualified Code(s): N17.9 - Acute kidney failure, unspecified (2) Anemia Code(s): D64.9 - ANEMIA, UNSPECIFIED (3) Hyperkalemia Code(s): E87.5 - HYPERKALEMIA (4) Hypertensive urgency Code(s): I16.0 - HYPERTENSIVE URGENCY (5) Sepsis Code(s): A41.9 - SEPSIS, UNSPECIFIED ORGANISM Qualifiers: Sepsis type: sepsis due to unspecified organism Qualified Code(s): A41.9 - Sepsis, unspecified organism (6) Thrombocytopenia Code(s): D69.6 - THROMBOCYTOPENIA, UNSPECIFIED (7) Seizure Code(s): R56.9 - UNSPECIFIED CONVULSIONS Assessment/Plan Current Medications Generic Name Dose Route Start Last Admin Trade Name Freq PRN Reason Stop Dose Admin Acetaminophen 1,000 mg 09/18/17 09:46 09/19/17 10:06 Ofirmev Injection - IVPB 1,000 mg Q6H PRN Administration PAIN LEVEL 1-5 Amino Acids 30 ml 09/03/17 16:15 09/20/17 09:21 Prosource No Carb Liquid Pkt NGT [address] Administration Chlorhexidine Gluconate 1 applic 08/29/17 22:00 09/19/17 21:29 Hibiclens For Decolonization - TP [address] Administration Diphenhydramine HCl 25 mg 09/15/17 09:52 09/16/17 21:58 Benadryl - PO 25 mg Q6H PRN Administration FOR ITCHING Docusate Sodium 100 mg 09/04/17 10:00 Colace Liquid - NGT TID PRN CONSTIPATION Heparin Sodium (Porcine) 5,000 unit 09/17/17 22:00 09/20/17 09:21 Heparin - SQ 5,[address] Administration Hydralazine HCl 100 mg 09/14/17 14:00 09/20/17 05:38 Apresoline - PO [address] Administration Hydralazine HCl 10 mg 09/17/17 16:51 Apresoline Injection - IVPUSH Q4H PRN HYPERTENSION Sodium Chloride 250 mls @ 3,000 mls/hr 09/19/17 14:47 Normal Saline - IV 09/20/17 14:46 PRN PRN Hypotension during Dialysis Isosorbide Mononitrate 30 mg 09/15/17 10:00 09/20/17 09:21 Imdur - PO [address] Administration Labetalol HCl 200 mg 09/15/17 09:10 09/17/17 08:03 Normodyne - PO 200 mg Q2H PRN Administration HYPERTENSION Labetalol HCl 400 mg 09/15/17 14:00 09/20/17 05:54 Normodyne - PO [address] Administration Lacosamide 100 mg 09/18/17 22:00 09/20/17 09:21 Vimpat - PO [address] Administration Lidocaine/Aluminum/Magnesium/Simeth 5 ml 09/12/17 00:00 09/20/17 12:14 Magic Mouthwash *Sjr Formula* - MM [address] Administration Multivit/Ca Carb/B Cmplx/FA/Prenat 1 tablet 09/13/17 10:00 09/20/17 09:21 Nephro-Claudia - PO [address] Administration Nifedipine 90 mg 09/16/17 10:00 09/20/17 09:21 Procardia Xl - PO [address] Administration Nystatin 1 applic 09/15/17 06:00 09/20/17 05:39 Mycostatin Cream - TP [address] Administration Sevelamer Carbonate 800 mg 09/16/17 17:30 09/20/17 12:14 Renvela - PO [address] Administration Impression 1. ANNA 2. HTN urgency/emergency 3. hyperkalemia 4. hyponatremia 5. autism 6. hx of seizure 7. anemia 8. CKD 9. lactic acidosis improving 10. thrombocytopenia 11. hyperkalemia 12. pleural effusion 13. acute resp failure requiring intubation 14. ESRD Plan - will arrange for HD in am - cts follow up for chest tubes - epogen for anemia - check phos level - kidney biopsy after chest tubes removed - vascular for fistula before discharge - low potassium diet - will follow Dr Velasquez
--- NOTE | 2017-09-20 15:42 | PATH ---
Surgical Pathology Report Patient Name: PATRICK FERGUSON Med. Rec. 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 Specimen(s) Received A: INTRATHORACIC CONTENTS LEFT B: PLEURAL BX Clinical History Pneumonia Final Diagnosis A. INTRATHORACIC CONTENTS, LEFT, DECORTICATION AND PNEUMOLYSIS: FRAGMENTS OF BENIGN FIBROCONNECTIVE TISSUE WITH CHRONIC INFLAMMATION AND REACTIVE CHANGES IN A HEMORRHAGIC BACKGROUND WITH FIBRINOUS MATERIAL. B. PLEURA, BIOPSY: BENIGN FIBROCONNECTIVE TISSUE WITH CHRONIC INFLAMMATION AND REACTIVE CHANGES. Electronically Signed Lydia Dodson M.D. Gross Description A. Received in formalin labeled "intrathoracic contents left," is a 4.5 x 4.3 x 0.8 cm aggregate of arriaga-sandoval portions of soft tissue. Purchase Order Checker portions are submitted in 2 cassettes. B. Received in formalin labeled "pleural biopsy," is a 2.8 x 2.0 x 0.3 cm aggregate of arriaga-sandoval soft tissue fragments. The specimen is entirely submitted in 2 cassettes. 09/19/2017 saudi09/19/2017
--- NOTE | 2017-09-20 16:14 | PROC ---
Procedure Note Procedure: 1 chest tube removed. Occlusive dressing applied. Remaining chest tube is off suction. New dressing applied to the remaining chest tube as well. Patient tolerated procedure well. CXR in AM
[2017-09-20] MEDS ORDERED: PT OWN MED DRAWER 7, Y5N ONE (21:42)
[2017-09-20] MEDS: CHLORHEXIDINE GLUCONATE 4% CLEANSER FOR DECOLONIZATION TP SCH (21:45)
[2017-09-21] MEDS: ACETAMINOPHEN 1000 MG/100 ML VIAL (NON FORMULARY) IVPB PRN (03:28)
[2017-09-21] MEDS: hydrALAZINE HCL 50 MG TABLET (FP) PO SCH ×3 (06:04→21:35)
[2017-09-21] MEDS: LABETALOL HCL 200 MG TABLET (FP) PO SCH ×3 (06:04→21:36)
[2017-09-21] MEDS: MAG HYDROX/ALH/SMC/DPHA/LIDO 240 ML MOUTHWASH MM SCH ×5 (06:14→23:33)
[2017-09-21] MEDS: NYSTATIN 100,000 UNIT/GM TOPICAL CREAM 15 GM TUBE TP SCH ×5 (06:14→23:33)
[2017-09-21 06:28] LABS: HEMATOCRIT 24.7 % (35.4-49); HEMOGLOBIN 8.5 GM/dL (11.7-16.9); MCH 30.2 pg (25.7-33.7); MCHC 34.3 g/dl (32.0-35.9); MEAN CELL VOLUME 88.2 fl (80-96); PLATELET COUNT 467 K/MM3 (134-434); RDW 14.8 % (11.9-15.9); WHITE BLOOD COUNT 6.3 K/mm3 (4.0-10.0)
[2017-09-21 06:56] LABS: ANION GAP 6 (8-16); BLOOD UREA NITROGEN 33 mg/dL (7-18); CALCIUM 8.4 mg/dL (8.5-10.1); CHLORIDE 102 mmol/L (98-107); CO2 32 mmol/L (21-32); GLUCOSE,RANDOM 89 mg/dL (74-106); MAGNESIUM 2.3 mg/dL (1.8-2.4); PHOSPHOROUS 7.6 mg/dL (2.5-4.9); POTASSIUM 4.7 mmol/L (3.5-5.1); SODIUM 140 mmol/L (136-145)
--- NOTE | 2017-09-21 08:21 | PN ---
Progress Note (short form) - Note Progress Note: CC: htn urgency S: pt does not communicate well. appears comfortable, no had one chest tube removed today. o: Current Medications Acetaminophen (Ofirmev Injection -) 1,000 mg IVPB Q6H PRN PRN Reason: PAIN LEVEL 1-5 Last Admin: 09/19/17 10:06 Dose: 1,000 mg Amino Acids (Prosource No Carb Liquid Pkt) 30 ml NGT DAILY [facility] Last Admin: 09/20/17 09:21 Dose: 30 ml Chlorhexidine Gluconate (Hibiclens For Decolonization -) 1 applic TP HS [facility] Last Admin: 09/19/17 21:29 Dose: 1 applic Diphenhydramine HCl (Benadryl -) 25 mg PO Q6H PRN PRN Reason: FOR ITCHING Last Admin: 09/16/17 21:58 Dose: 25 mg Docusate Sodium (Colace Liquid -) 100 mg NGT TID PRN PRN Reason: CONSTIPATION Heparin Sodium (Porcine) (Heparin -) 5,000 unit SQ BID [facility] Last Admin: 09/20/17 09:21 Dose: 5,000 unit Hydralazine HCl (Apresoline -) 100 mg PO TID [facility] Last Admin: 09/20/17 05:38 Dose: 100 mg Hydralazine HCl (Apresoline Injection -) 10 mg IVPUSH Q4H PRN PRN Reason: HYPERTENSION Sodium Chloride (Normal Saline -) 250 mls @ 3,000 mls/hr IV PRN PRN PRN Reason: Hypotension during Dialysis Stop: 09/20/17 14:46 Isosorbide Mononitrate (Imdur -) 30 mg PO DAILY [facility] Last Admin: 09/20/17 09:21 Dose: 30 mg Labetalol HCl (Normodyne -) 200 mg PO Q2H PRN PRN Reason: HYPERTENSION Last Admin: 09/17/17 08:03 Dose: 200 mg Labetalol HCl (Normodyne -) 400 mg PO TID [facility] Last Admin: 09/20/17 05:54 Dose: 400 mg Lacosamide (Vimpat -) 100 mg PO BID [facility] Last Admin: 09/20/17 09:21 Dose: 100 mg Lidocaine/Aluminum/Magnesium/Simeth (Magic Mouthwash *Sjr Formula* -) 5 ml MM Q6HPO [facility] Last Admin: 09/20/17 12:14 Dose: 5 ml Multivit/Ca Carb/B Cmplx/FA/Prenat (Nephro-Claudia -) 1 tablet PO DAILY [facility] Last Admin: 09/20/17 09:21 Dose: 1 tablet Nifedipine (Procardia Xl -) 90 mg PO BID [facility] Last Admin: 09/20/17 09:21 Dose: 90 mg Nystatin (Mycostatin Cream -) 1 applic TP Q6HPO [facility] Last Admin: 09/20/17 05:39 Dose: 1 applic Sevelamer Carbonate (Renvela -) 800 mg PO TIDCM [facility] Last Admin: 09/20/17 12:14 Dose: 800 mg Vital Signs - 24 hr 09/20/17 09/20/17 09/20/17 09:00 10:00 12:00 Temperature 98.9 F Pulse Rate 100 H 101 H Respiratory 20 20 20 Rate Blood Pressure 143/88 154/95 O2 Sat by Pulse 96 96 Oximetry (%) 09/20/17 09/20/17 09/20/17 14:00 16:00 18:00 Temperature 98.5 F 98.8 F Pulse Rate 97 H 98 H 99 H Respiratory 20 18 18 Rate Blood Pressure 172/85 132/61 138/94 O2 Sat by Pulse Oximetry (%) nad, calm nad no jvd rrr s1 s2 no mrg dullness at left base, nl effort. + chest tube. no jaundice diaphoresis trace le edema bl abd nd pos bs Laboratory Tests 09/20/17 09/20/17 05:55 05:55 WBC 6.5 Hgb 8.5 L Plt Count 422 Potassium 4.8 D Magnesium 2.1 echo 08/2017: nl lv/rv, no sig valve path tele: SR a/p: 22 m hx autism, seizures, possible underlying ckd/htn here with ams, respiratory failure/sepsis, anna requiring HD and hypertensive urgency. Cardiac course complicated by mild troponin elevation and prolonged qtc. HTN emergency: -per mother, no hi BP history ever despite regular flake drier followups. was uncontrolled when here 12/11 for seizure, with agitation then--no BP checked since that discharge she says -has had difficult to control BP here, requiring nifedipine and labetalol drips (the latter up to 2mg/min, i.e. 2800 mg/day, without good bp control) 09/14: increased hydralzine to 100 tid and add imdur 30 qd -09/15: BP severely elevated again this am (220/100). change nifedip 120 qd to 90 bid to cover overnight/early AM bp's (very short-acting med). change coreg to labetalol 400 TID for greater potency (with prn PO doses ordered), will likely need closer to 600-800 TID labetlol, will titrate up as needed -BP much improved, continue current regimen (nifedipine 90 bid, hydral 100 tid, labetalol 400 TID, imdur 30). try to cut down nifedipine dose (to 60 bid) +/- hydralazine dose later, if bp remains well controlled. - 09/18: bp meds mostly held yesterday and this morning due to surgery, intubation etc. bp remains overall well controlled. con't to monitor. -09/19-09/20: bp overall improved, cont current meds -deferring RAAS-blockers for now given ANNA with renal w/u ongoing anna requiring HD: -creat 2.1 here in november, ? no prior w/u per mother -suspect hypertensive renal failure, progressive since then, though possible causality in other direction (no MD f/u since november, per mother) -renal eval in progress, planned for biopsy - getting HD here abnormal troponins - flat trend, with intermediate range values - secondary to sepsis myocardial injury, vs demand ischemia (severe HTN, with tachycardia to 120s-130s). no clinical findings to support acs here. anemia: -chronic, mgm't per primary team respiratory failure s/p intubation, pleural effusion - with white out of left lung - 09/04 s/p chest tube placement. - plan per critical care/thoracic surgery--s/p Bronchoscopy, left VATS, drainage of effusion, pneumolysis 09/17. now with chest tube x 2. - 09/20 one chest tube removed.
[2017-09-21 08:38] LABS: CREATININE 8.3 mg/dL (0.7-1.3)
[2017-09-21] MEDS: SEVELAMER CARBONATE 800 MG TAB (FP) PO SCH ×3 (08:46→17:31)
[2017-09-21] MEDS: diphenhydrAMINE HCL 25 MG CAPSULE (FP) PO PRN (08:48)
[2017-09-21] MEDS ORDERED: EPOETIN ALFA 3,000 UNIT, EPOETIN ALFA 2,000 UNIT IVPUSH ONE (10:00)
--- NOTE | 2017-09-21 11:20 | PN ---
Physical Exam: SUBJECTIVE: Patient seen and examined One drain removed yesterday. No acute events overnight. This am, pt getting HD, laying down comfortably watching TV. OBJECTIVE: Vital Signs Period Temp Pulse Resp BP Sys/Mora Pulse Ox Last 24 Hr 98.5 F-98.8 F 84-103 14-20 117-172/52-99 100-100 GENERAL: young male, lying in bed, in NAD HEENT: NC, AT LUNGS: normal breath sounds b/l, no rales or rhonchi HEART: tachycardic, normal rhythm, no murmurs ABDOMEN: soft, NT, ND EXTREMITIES: 2+ pulses, warm, well-perfused, no edema. NEUROLOGICAL: Cranial nerves II through XII grossly intact, gait not observed. Laboratory Results - last 24 hr 09/21/17 09/21/17 05:00 05:00 WBC 6.3 RBC 2.80 L Hgb 8.5 L Hct 24.7 L MCV 88.2 MCH 30.2 MCHC 34.3 RDW 14.8 Plt Count 467 H MPV 7.0 L Sodium 140 Potassium 4.7 Chloride 102 Carbon Dioxide 32 Anion Gap 6 L BUN 33 H D Creatinine 8.3 H* D Random Glucose 89 Calcium 8.4 L Phosphorus 7.6 H Magnesium 2.3 Active Medications Generic Name Dose Route Start Last Admin Trade Name Miguel Angelq PRN Reason Stop Dose Admin Acetaminophen 1,000 mg 09/18/17 09:46 09/21/17 03:28 Ofirmev Injection - IVPB 1,000 mg Q6H PRN Administration PAIN LEVEL 1-5 Amino Acids 30 ml 09/03/17 16:15 09/20/17 09:21 Prosource No Carb Liquid Pkt NGT [address] Administration Chlorhexidine Gluconate 1 applic 08/29/17 22:00 09/20/17 21:45 Hibiclens For Decolonization - TP [address] Administration Diphenhydramine HCl 25 mg 09/15/17 09:52 09/21/17 08:48 Benadryl - PO 25 mg Q6H PRN Administration FOR ITCHING Docusate Sodium 100 mg 09/04/17 10:00 Colace Liquid - NGT TID PRN CONSTIPATION Heparin Sodium (Porcine) 5,000 unit 09/17/17 22:00 09/20/17 21:44 Heparin - SQ 5,000 unit BID [facility] Administration Hydralazine HCl 100 mg 09/14/17 14:00 09/21/17 06:04 Apresoline - PO [address] Administration Hydralazine HCl 10 mg 09/17/17 16:51 Apresoline Injection - IVPUSH Q4H PRN HYPERTENSION Sodium Chloride 250 mls @ 3,000 mls/hr 09/20/17 14:13 Normal Saline - IV 09/21/17 14:13 PRN PRN Hypotension during Dialysis Isosorbide Mononitrate 30 mg 09/15/17 10:00 09/20/17 09:21 Imdur - PO [address] Administration Labetalol HCl 200 mg 09/15/17 09:10 09/17/17 08:03 Normodyne - PO 200 mg Q2H PRN Administration HYPERTENSION Labetalol HCl 400 mg 09/15/17 14:00 09/21/17 06:04 Normodyne - PO [address] Administration Lacosamide 100 mg 09/18/17 22:00 09/20/17 21:44 Vimpat - PO [address] Administration Lidocaine/Aluminum/Magnesium/Simeth 5 ml 09/12/17 00:00 09/21/17 06:14 Magic Mouthwash *Sjr Formula* - MM [address] Administration Multivit/Ca Carb/B Cmplx/FA/Prenat 1 tablet 09/13/17 10:00 09/20/17 09:21 Nephro-Leatha - PO [address] Administration Nifedipine 90 mg 09/16/17 10:00 09/20/17 21:45 Procardia Xl - PO [address] Administration Nystatin 1 applic 09/15/17 06:00 09/21/17 06:14 Mycostatin Cream - TP [address] Administration Sevelamer Carbonate 800 mg 09/16/17 17:30 09/21/17 08:46 Renvela - PO [address] Administration ASSESSMENT/PLAN: 22M with PMH of autism and seizure disorder who presented with severe HTN, anemia, thrombocytopenia, leukocytosis, hyperkalemia, ANNA, admitted to ICU. Developed resp distress, found to have loculated effusion, s/p VATS with 2 drains placed, 1 of which was removed yesterday. Resp # loculated Left pleural effusion - s/p Left VATS/pneumolysis on 09/17/[address] Ivy - POD #4 - post-op care per Dr. Ivy: 2nd drain to be removed some time over weekend - pain control with Ofirmev prn - f/u pleural fluid cultures # acute hypoxic respiratory failure - resolved - pt re-intubated for procedure 09/17/17 and extubated 09/18/17 (pt intubated and extubated 09/06/17) CV # HTN urgency - continue Labetalol TID (plus Labetalol po q2hr prn), Hydralazine TID (plus Hydralazine IVpush prn), Procardia BID, and Imdur - Cardiology (Dr. Brenner) recs appreciated: deferring RAAS-blockers for now given ANNA with renal w/u ongoing - goal BP 120/80 ID # sepsis 2/2 pneumonia - pt afebrile, no leukocytosis - continue to observe off antibiotics Renal # ANNA - Nephrology (Dr. Velasquez) recs appreciated: pt receiving HD now - renal biopsy to be done once pt stable - IR can get biopsy if cleared by anesthesia - s/p permacath placement 09/10/17 - monitor Cr and UOP - continue Nephro-leatha and Renvela Hematology # anemia - pt s/p 4U PRBCs this hospitalization (with most recent unit on 09/10/17) - hgb stable, currently at 8.5 - monitor for overt s/s of bleeding Neuro # seizure - continue Vimpat BID FEN/ppx - Fluids: po - Electrolytes: hyperphosphatemia - Nutrition: dysphagia whole with [place] thick liquids, with Ensure chocolate pudding plus Prosource daily - DVT ppx with Heparin BID - no GI ppx indicated Dispo - will keep in ICU over weekend for monitoring - plan to get renal bx once stable Case discussed with attending, Dr. Isidro. -Rashel Iniguez MD PGY1 ICU Team Visit type - Emergency Visit Emergency Visit: Yes ED Registration Date: 08/29/17 Care time: The patient presented to the Emergency Department on the above date and was hospitalized for further evaluation of their emergent condition. - New Patient This patient is new to me today: No - Critical Care Critical Care patient: Yes Total Critical Care Time (in minutes): 37 Critical Care Statement: The care of this patient involved high complexity decision making to prevent further life threatening deterioration of the patient 's condition and/or to evaluate & treat vital organ system(s) failure or risk of failure.
--- NOTE | 2017-09-21 11:56 | PN ---
Teaching Attending Note Name of Resident: Rashel Iniguez ATTENDING PHYSICIAN STATEMENT I saw and evaluated the patient. I reviewed the resident's note and discussed the case with the resident. I agree with the resident's findings and plan as documented. SUBJECTIVE: Patient seen and examined in the ICU. Appears comfortable. CT intact with 50cc output. CXR: overall improving OBJECTIVE: Intake & Output 09/18/17 09/19/17 09/20/17 09/21/17 23:59 23:59 23:59 23:59 Intake Total 419 741 1478 550 Output Total 140 240 80 50 Balance 280 628 8441 500 Weight 174 lb 12.8 oz 166 lb 9 oz 162 lb 4 oz 168 lb 9 oz Last Vital Signs Temp Pulse Resp BP Pulse Ox 98.5 F 88 16 131/86 100 09/21/17 07:55 09/21/17 11:30 09/21/17 11:30 09/21/17 11:30 09/21/17 10:00 Active Medications Acetaminophen (Ofirmev Injection -) 1,000 mg IVPB Q6H PRN PRN Reason: PAIN LEVEL 1-5 Last Admin: 09/21/17 03:28 Dose: 1,000 mg Amino Acids (Prosource No Carb Liquid Pkt) 30 ml NGT DAILY [facility] Last Admin: 09/20/17 09:21 Dose: 30 ml Chlorhexidine Gluconate (Hibiclens For Decolonization -) 1 applic TP HS [facility] Last Admin: 09/20/17 21:45 Dose: 1 applic Diphenhydramine HCl (Benadryl -) 25 mg PO Q6H PRN PRN Reason: FOR ITCHING Last Admin: 09/21/17 08:48 Dose: 25 mg Docusate Sodium (Colace Liquid -) 100 mg NGT TID PRN PRN Reason: CONSTIPATION Heparin Sodium (Porcine) (Heparin -) 5,000 unit SQ BID [facility] Last Admin: 09/20/17 21:44 Dose: 5,000 unit Hydralazine HCl (Apresoline -) 100 mg PO TID [facility] Last Admin: 09/21/17 06:04 Dose: 100 mg Hydralazine HCl (Apresoline Injection -) 10 mg IVPUSH Q4H PRN PRN Reason: HYPERTENSION Sodium Chloride (Normal Saline -) 250 mls @ 3,000 mls/hr IV PRN PRN PRN Reason: Hypotension during Dialysis Stop: 09/21/17 14:13 Isosorbide Mononitrate (Imdur -) 30 mg PO DAILY [facility] Last Admin: 09/20/17 09:21 Dose: 30 mg Labetalol HCl (Normodyne -) 200 mg PO Q2H PRN PRN Reason: HYPERTENSION Last Admin: 09/17/17 08:03 Dose: 200 mg Labetalol HCl (Normodyne -) 400 mg PO TID [facility] Last Admin: 09/21/17 06:04 Dose: 400 mg Lacosamide (Vimpat -) 100 mg PO BID [facility] Last Admin: 09/20/17 21:44 Dose: 100 mg Lidocaine/Aluminum/Magnesium/Simeth (Magic Mouthwash *Sjr Formula* -) 5 ml MM Q6HPO [facility] Last Admin: 09/21/17 06:14 Dose: 5 ml Multivit/Ca Carb/B Cmplx/FA/Prenat (Nephro-Claudia -) 1 tablet PO DAILY [facility] Last Admin: 09/20/17 09:21 Dose: 1 tablet Nifedipine (Procardia Xl -) 90 mg PO BID [facility] Last Admin: 09/20/17 21:45 Dose: 90 mg Nystatin (Mycostatin Cream -) 1 applic TP Q6HPO [facility] Last Admin: 09/21/17 06:14 Dose: 1 applic Sevelamer Carbonate (Renvela -) 800 mg PO TIDCM [facility] Last Admin: 09/21/17 08:46 Dose: 800 mg Gen: NAD at rest Heart: RRR Lung: decreased breath sounds at the bases Abd: soft, nontender Ext: no edema Chest tube: serous drainage, no air leak Laboratory Results - last 24 hr 09/21/17 09/21/17 05:00 05:00 WBC 6.3 RBC 2.80 L Hgb 8.5 L Hct 24.7 L MCV 88.2 MCH 30.2 MCHC 34.3 RDW 14.8 Plt Count 467 H MPV 7.0 L Sodium 140 Potassium 4.7 Chloride 102 Carbon Dioxide 32 Anion Gap 6 L BUN 33 H D Creatinine 8.3 H* D Random Glucose 89 Calcium 8.4 L Phosphorus 7.6 H Magnesium 2.3 ASSESSMENT AND PLAN: Hypertensive Urgency resolved Acute Kidney Injury requiring HD Acute Hypoxic Respiratory Failure improving Pneumonia Loculated Pleural Effusion s/p L VATS/pneumolysis Severe Sepsis resolved Lactic Acidosis resolved Thrombocytopenia improved Anemia Autism - monitoring off antibiotics - pain control - monitor chest tube output - CT per surgery - HD per renal with ultrafiltration - monitor H/H - monitor urine output, creatinine - renal biopsy when stable - BP control - taper Fio2 to keep Spo2 >90% - PO as tolerated - DVT/GI prophylaxis - continue ICU monitoring Dr Isidro Critical care time spent in reviewing chart, evaluating patient and formulating plan 35 min
[2017-09-21] MEDS: NIFEdipine E.R. 90 MG TABLET (FP) PO SCH ×2 (12:12→21:37)
[2017-09-21] MEDS: ISOSORBIDE MONONITRATE 30 MG TAB.SR.24H (FP) PO SCH (12:12)
[2017-09-21] MEDS: LACOSAMIDE 50 MG TABLET PO SCH ×2 (12:12→21:36)
[2017-09-21] MEDS: VITAMIN B COMP W-C 1 EA TABLET PO SCH (12:13)
[2017-09-21] MEDS: AMINO ACIDS/PROTEIN HYDROLYS 30 ML LIQUID.PKT NGT SCH (12:13)
[2017-09-21] MEDS: HEPARIN NA (PORCINE) 5,000 UNITS/ML 1ML VIAL SQ SCH ×3 (12:13→21:37)
--- NOTE | 2017-09-21 12:43 | PN ---
Progress Note, [employer]IC REH[employer]ILITATION THERAPIST - Note Progress Note: Selected Entries 09/18/17 09/18/17 09/18/17 06:00 18:00 22:00 Temperature 99.4 F 100.0 F H 100 F H 09/19/17 09/19/17 09/19/17 02:00 06:00 10:00 Temperature 99 F 98 F 100.1 F H 09/19/17 09/19/17 09/19/17 14:00 15:25 18:00 Temperature 99.6 F 99.1 F 98.4 F 09/19/17 09/20/17 22:00 06:00 Temperature 98.6 F 98.6 F Laboratory Tests 09/18/17 09/19/17 09/20/17 05:57 06:10 05:55 WBC 10.9 H 8.6 6.5 Selected Entries 09/21/17 09/21/17 09/21/17 02:00 06:00 07:55 Breakfast Temperature 98.5 F 98.5 F 98.5 F 09/21/17 09:53 Breakfast 75% Temperature Laboratory Tests 09/21/17 05:00 WBC 6.3 REC: Dysphagia Whole diet (no rice) and continue nectar thick liquid for now. Risk of aspiration Monitor tolerance.
--- NOTE | 2017-09-21 13:11 | PROC ---
Procedure Note Procedure: Patient had 1 chest tube removed yesterday. Remaining tube off suction > 24 hours. CXR today: no ptx. atelectatic changes to left base. Remaining chest tube removed. Occlusive dressing applied. Patient tolerated procedure well. STAT post-pull CXR ordered.
--- NOTE | 2017-09-21 14:07 | PN ---
Progress Note (short form) - Note Progress Note: Subjective: The patient was seen and examined at the bedside, he is non-verbal but awake 2nd chest tube removed today Current Medications Generic Name Dose Route Start Last Admin Trade Name Freq PRN Reason Stop Dose Admin Acetaminophen 1,000 mg 09/18/17 09:46 09/21/17 03:28 Ofirmev Injection - IVPB 1,000 mg Q6H PRN Administration PAIN LEVEL 1-5 Amino Acids 30 ml 09/03/17 16:15 09/21/17 12:13 Prosource No Carb Liquid Pkt NGT [address] Administration Chlorhexidine Gluconate 1 applic 08/29/17 22:00 09/20/17 21:45 Hibiclens For Decolonization - TP [address] Administration Diphenhydramine HCl 25 mg 09/15/17 09:52 09/21/17 08:48 Benadryl - PO 25 mg Q6H PRN Administration FOR ITCHING Docusate Sodium 100 mg 09/04/17 10:00 Colace Liquid - NGT TID PRN CONSTIPATION Heparin Sodium (Porcine) 5,000 unit 09/17/17 22:00 09/21/17 15:24 Heparin - SQ Not Given BID LANE Hydralazine HCl 100 mg 09/14/17 14:00 09/21/17 15:16 Apresoline - PO [address] Administration Hydralazine HCl 10 mg 09/17/17 16:51 Apresoline Injection - IVPUSH Q4H PRN HYPERTENSION Sodium Chloride 250 mls @ 3,000 mls/hr 09/20/17 14:13 Normal Saline - IV 09/21/17 14:13 PRN PRN Hypotension during Dialysis Isosorbide Mononitrate 30 mg 09/15/17 10:00 09/21/17 12:12 Imdur - PO [address] Administration Labetalol HCl 200 mg 09/15/17 09:10 09/17/17 08:03 Normodyne - PO 200 mg Q2H PRN Administration HYPERTENSION Labetalol HCl 400 mg 09/15/17 14:00 09/21/17 15:16 Normodyne - PO [address] Administration Lacosamide 100 mg 09/18/17 22:00 09/21/17 12:12 Vimpat - PO [address] Administration Lidocaine/Aluminum/Magnesium/Simeth 5 ml 09/12/17 00:00 09/21/17 17:30 Magic Mouthwash *Sjr Formula* - MM [address] Administration Multivit/Ca Carb/B Cmplx/FA/Prenat 1 tablet 09/13/17 10:00 09/21/17 12:13 Nephro-Claudia - PO [address] Administration Nifedipine 90 mg 09/16/17 10:00 09/21/17 12:12 Procardia Xl - PO [address] Administration Nystatin 1 applic 09/15/17 06:00 09/21/17 17:31 Mycostatin Cream - TP [address] Administration Sevelamer Carbonate 1,600 mg 09/21/17 17:30 09/21/17 17:31 Renvela - PO 1,[address] Administration Objective: Vital Signs Period Temp Pulse Resp BP Sys/Mora Pulse Ox Last 24 Hr 98.3 F-98.5 F 84-103 14-20 117-155/52-99 100-100 Physical Exam: General: NAD Lungs: Decreased breath sound of left base Heart: RRR, S1S2 Abd: Soft, non-tender, non-distended. normoactive bowel sounds Ext: No edema CBCD WBC 6.3 K/mm3 (4.0-10.0) 09/21/17 05:00 RBC 2.80 M/mm3 (4.00-5.60) L 09/21/17 05:00 Hgb 8.5 GM/dL (11.7-16.9) L 09/21/17 05:00 Hct 24.7 % (35.4-49) L 09/21/17 05:00 MCV 88.2 fl (80-96) 09/21/17 05:00 MCHC 34.3 g/dl (32.0-35.9) 09/21/17 05:00 RDW 14.8 % (11.9-15.9) 09/21/17 05:00 Plt Count 467 K/MM3 (134-434) H 09/21/17 05:00 MPV 7.0 fl (7.5-11.1) L 09/21/17 05:00 CMP Sodium 140 mmol/L (136-145) 09/21/17 05:00 Potassium 4.7 mmol/L (3.5-5.1) 09/21/17 05:00 Chloride 102 mmol/L (98-107) 09/21/17 05:00 Carbon Dioxide 32 mmol/L (21-32) 09/21/17 05:00 Anion Gap 6 (8-16) L 09/21/17 05:00 BUN 33 mg/dL (7-18) H D 09/21/17 05:00 Creatinine 8.3 mg/dL (0.7-1.3) H* D 09/21/17 05:00 Creat Clearance w eGFR 14.13 (>60) 09/14/17 12:35 Random Glucose 89 mg/dL (74-106) 09/21/17 05:00 Calcium 8.4 mg/dL (8.5-10.1) L 09/21/17 05:00 Total Bilirubin < 0.1 mg/dL (0.2-1.0) L D 09/14/17 12:35 AST 17 U/L (15-37) 09/14/17 12:35 ALT 16 U/L (12-78) 09/14/17 12:35 Alkaline Phosphatase 75 U/L (45-117) 09/14/17 12:35 Total Protein 6.1 g/dl (6.4-8.2) L 09/14/17 12:35 Albumin 2.0 g/dl (3.4-5.0) L 09/14/17 12:35 CARDIAC ENZYMES Creatine Kinase 373 IU/L (39-308) H 08/29/17 12:37 Troponin I 0.25 ng/ml (0.00-0.05) H 08/31/17 05:40 Microbiology 09/17/17 15:00 Bronchial Washings - Left Lower Lobe Gram Stain - Final 09/17/17 15:00 Bronchial Washings - Left Lower Lobe Bronchoalveolar Lavage Culture - Preliminary Haemophilus Parainfluenzae I Non Lactose Fermenting Gnb Lactose Fermenting Neg Bacilli 09/17/17 15:00 Lung - Left Lower Lobe Gram Stain - Final 09/17/17 15:00 Lung - Left Lower Lobe Tissue Culture - Final NO GROWTH OF AEROBIC ORGANISMS AFTER 48 HOURS INCUBATION 09/17/17 15:00 Lung - Left Lower Lobe Anaerobic Culture - Final NO ANAEROBES WERE ISOLATED 09/17/17 15:00 Pleural Fluid Gram Stain - Final 09/17/17 15:00 Pleural Fluid Body Fluid Culture - Final NO GROWTH OF AEROBIC ORGANISMS AFTER 48 HOURS INCUBATION 09/17/17 15:00 Pleural Fluid Anaerobic Culture - Final NO ANAEROBES WERE ISOLATED 09/17/17 15:00 Lung - Left Lower Lobe AFB Smear Concentration - Final 09/17/17 15:00 Lung - Left Lower Lobe Mycobacterial Culture - Preliminary 09/17/17 15:00 Pleural Fluid AFB Smear Concentration - Final 09/17/17 15:00 Pleural Fluid Mycobacterial Culture - Preliminary 09/17/17 15:00 Bronchial Washings - Left Lower Lobe AFB Smear Concentration - Final 09/17/17 15:00 Bronchial Washings - Left Lower Lobe Mycobacterial Culture - Preliminary 09/17/17 15:00 Bronchial Washings - Left Lower Lobe VANESSA Preparation - Preliminary 09/17/17 15:00 Bronchial Washings - Left Lower Lobe Fungal Culture - Preliminary 09/17/17 15:00 Lung - Left Lower Lobe VANESSA Preparation - Preliminary 09/17/17 15:00 Lung - Left Lower Lobe Fungal Culture - Preliminary 09/17/17 15:00 Pleural Fluid VANESSA Preparation - Preliminary 09/17/17 15:00 Pleural Fluid Fungal Culture - Preliminary 09/11/17 13:15 Blood - Peripheral Venous Blood Culture - Final NO GROWTH AFTER 5 DAYS INCUBATION 09/11/17 12:44 Blood - Peripheral Venous Blood Culture - Final NO GROWTH AFTER 5 DAYS INCUBATION 09/04/17 16:30 Sputum - Endotrachea Suction/Ventilator Gram Stain - Final 09/04/17 16:30 Sputum - Endotrachea Suction/Ventilator Sputum Culture - Final 09/05/17 23:00 Stool Shiga Toxin Test - Final 09/06/17 16:15 Stool Salmonella/Shigella Culture - Final Yeast Like Organism 09/06/17 16:15 Stool Campylobacter Culture - Final NO GROWTH OF CAMPYLOBACTER SPECIES OBTAINED 09/06/17 16:15 Stool Yersinia Culture - Final NO GROWTH OF YERSINIA SPECIES OBTAINED 09/06/17 16:15 Stool Vibrio Culture - Final NO GROWTH OF VIBRIO SPECIES OBTAINED 09/06/17 16:15 Stool Escherichia coli 0157 Culture - Final NO GROWTH OF E COLI 0157 OBTAINED 09/02/17 16:20 Blood - Peripheral Venous Blood Culture - Final NO GROWTH AFTER 5 DAYS INCUBATION 09/04/17 11:45 Pleural Fluid Gram Stain - Final 09/04/17 11:45 Pleural Fluid Body Fluid Culture - Final NO GROWTH OF AEROBIC ORGANISMS AFTER 48 HOURS INCUBATION 09/04/17 11:45 Pleural Fluid Anaerobic Culture - Final NO ANAEROBES WERE ISOLATED 09/04/17 11:45 Pleural Fluid AFB Smear Concentration - Final 09/04/17 11:45 Pleural Fluid Mycobacterial Culture - Preliminary 09/05/17 23:00 Stool Clostridium difficile Antigen (JONAH) - Final 09/05/17 23:00 Stool Clostridium difficile Toxin Assay - Final 09/01/17 15:00 Blood - Central Line Blood Culture - Final NO GROWTH AFTER 5 DAYS INCUBATION 09/01/17 15:00 Blood - Central Line Blood Culture - Final NO GROWTH AFTER 5 DAYS INCUBATION 09/02/17 16:14 Pleural Fluid Gram Stain - Final 09/02/17 16:14 Pleural Fluid Body Fluid Culture - Final NO GROWTH OF AEROBIC ORGANISMS AFTER 48 HOURS INCUBATION 09/02/17 16:14 Pleural Fluid Anaerobic Culture - Final NO ANAEROBES WERE ISOLATED 09/04/17 11:45 Pleural Fluid VANESSA Preparation - Preliminary 09/04/17 11:45 Pleural Fluid Fungal Culture - Preliminary 09/02/17 18:00 Urine - Urine Clean Catch Urine Culture - Final NO GROWTH OBTAINED 08/29/17 12:37 Blood - Peripheral Venous Blood Culture - Final NO GROWTH AFTER 5 DAYS INCUBATION 08/29/17 12:37 Blood - Peripheral Venous Blood Culture - Final NO GROWTH AFTER 5 DAYS INCUBATION 08/29/17 10:52 Urine - Urine Clean Catch Urine Culture - Final NO GROWTH OBTAINED Assessment: This is a 22 year old male with PMHx of HTN, autism, epilepsy, who presented to the ED with diarrhea and increased dyspnea and was found to have hypertensive emergency, ANNA, pneumonia with a complicated hospital course including acute respiratory failure requiring intubation and a persistent left pleural effusion requiring vats and pneumolysis on 09/17 now with chest tubes x2 Plan: 1) Acute hypoxic respiratory failure, large left pleural effusion - S/p thoracentesis 09/02 - S/p pigtail 09/04 - S/p bronchoscopy/left VATS/drainage of effusion/pneumolysis 09/17 - Left chest tubes x2 placed to gravity this morning. Chest x-ray this morning with little change since prior exam. For repeat chest x-ray this afternoon, surgery will review and decide whether to pull drain with least amount of output - Appreciate surgery consult - Appreciate pulmonary consult 2) Severe sepsis 2/2 pneumonia - Afebrile - Continue to observe off antibiotics at this time - Appreciate ID consult 3) ANNA, ESRD - Tolerated HD today - For kidney biopsy once chest tubes are removed - Will need fistula prior to discharge - Appreciate nephrology consult 4) Hypertensive emergency - BPs better controlled - Continue Hydralazine - Continue Imdur - Continue Labetolol - Continue Procardia Xl 5) Epilepsy - Continue Vimpat 6) F/E/N: - Dysphagia pureed - Monitor electrolytes 7) Prophylaxis: - Heparin 5,000u sq bid - PT 8) Dispo: - Requires continued inpatient care CODE STATUS: FULL CODE Visit type - Emergency Visit Emergency Visit: Yes ED Registration Date: 08/29/17 Care time: The patient presented to the Emergency Department on the above date and was hospitalized for further evaluation of their emergent condition. - New Patient This patient is new to me today: No - Critical Care Critical Care patient: No
[2017-09-21] MEDS ORDERED: EPOETIN ALFA 2,000 UNIT/1 ML VIAL IVPUSH ONE (14:13)
--- NOTE | 2017-09-21 16:15 | PN ---
Progress Note, Physician History of Present Illness: Pt seen and examined at bedside. He tolerated HD. He appears comfortable. - Current Medication List Current Medications: Active Medications Acetaminophen (Ofirmev Injection -) 1,000 mg IVPB Q6H PRN PRN Reason: PAIN LEVEL 1-5 Last Admin: 09/21/17 03:28 Dose: 1,000 mg Amino Acids (Prosource No Carb Liquid Pkt) 30 ml NGT DAILY [facility] Last Admin: 09/21/17 12:13 Dose: 30 ml Chlorhexidine Gluconate (Hibiclens For Decolonization -) 1 applic TP HS [facility] Last Admin: 09/20/17 21:45 Dose: 1 applic Diphenhydramine HCl (Benadryl -) 25 mg PO Q6H PRN PRN Reason: FOR ITCHING Last Admin: 09/21/17 08:48 Dose: 25 mg Docusate Sodium (Colace Liquid -) 100 mg NGT TID PRN PRN Reason: CONSTIPATION Heparin Sodium (Porcine) (Heparin -) 5,000 unit SQ BID [facility] Last Admin: 09/21/17 15:24 Dose: Not Given Hydralazine HCl (Apresoline -) 100 mg PO TID [facility] Last Admin: 09/21/17 15:16 Dose: 100 mg Hydralazine HCl (Apresoline Injection -) 10 mg IVPUSH Q4H PRN PRN Reason: HYPERTENSION Sodium Chloride (Normal Saline -) 250 mls @ 3,000 mls/hr IV PRN PRN PRN Reason: Hypotension during Dialysis Stop: 09/21/17 14:13 Isosorbide Mononitrate (Imdur -) 30 mg PO DAILY [facility] Last Admin: 09/21/17 12:12 Dose: 30 mg Labetalol HCl (Normodyne -) 200 mg PO Q2H PRN PRN Reason: HYPERTENSION Last Admin: 09/17/17 08:03 Dose: 200 mg Labetalol HCl (Normodyne -) 400 mg PO TID [facility] Last Admin: 09/21/17 15:16 Dose: 400 mg Lacosamide (Vimpat -) 100 mg PO BID [facility] Last Admin: 09/21/17 12:12 Dose: 100 mg Lidocaine/Aluminum/Magnesium/Simeth (Magic Mouthwash *Sjr Formula* -) 5 ml MM Q6HPO [facility] Last Admin: 09/21/17 12:15 Dose: 5 ml Multivit/Ca Carb/B Cmplx/FA/Prenat (Nephro-Claudia -) 1 tablet PO DAILY [facility] Last Admin: 09/21/17 12:13 Dose: 1 tablet Nifedipine (Procardia Xl -) 90 mg PO BID [facility] Last Admin: 09/21/17 12:12 Dose: 90 mg Nystatin (Mycostatin Cream -) 1 applic TP Q6HPO [facility] Last Admin: 09/21/17 12:16 Dose: 1 applic Sevelamer Carbonate (Renvela -) 800 mg PO TIDCM [facility] Last Admin: 09/21/17 12:15 Dose: 800 mg - Objective Vital Signs: Vital Signs Temperature 98.3 F 09/21/17 14:00 Pulse Rate 92 H 09/21/17 14:00 Respiratory Rate 20 09/21/17 14:00 Blood Pressure 135/82 09/21/17 14:00 O2 Sat by Pulse Oximetry (%) 100 09/21/17 10:00 Constitutional: Yes: Calm Eyes: Yes: Conjunctiva Clear HENT: Yes: Atraumatic Neck: Yes: Supple Cardiovascular: Yes: S1, S2 Respiratory: Yes: CTA Bilaterally Gastrointestinal: Yes: Normal Bowel Sounds, Soft Genitourinary: Yes: Incontinence Musculoskeletal: Yes: WNL Edema: No Neurological: Yes: Pre-Existing Deficit Labs: CBC, BMP 09/21/17 05:00 09/21/17 05:00 INR, PTT INR 1.03 (0.82-1.09) 09/17/17 06:45 Fibrinogen 558.0 mg/dL (238-498) H 09/17/17 06:45 - ....Imaging Chest X-ray: Report Reviewed Problem List - Problems (1) Acute renal failure Code(s): N17.9 - ACUTE KIDNEY FAILURE, UNSPECIFIED Qualifiers: Acute renal failure type: unspecified Qualified Code(s): N17.9 - Acute kidney failure, unspecified (2) Anemia Code(s): D64.9 - ANEMIA, UNSPECIFIED (3) Hyperkalemia Code(s): E87.5 - HYPERKALEMIA (4) Hypertensive urgency Code(s): I16.0 - HYPERTENSIVE URGENCY (5) Sepsis Code(s): A41.9 - SEPSIS, UNSPECIFIED ORGANISM Qualifiers: Sepsis type: sepsis due to unspecified organism Qualified Code(s): A41.9 - Sepsis, unspecified organism (6) Thrombocytopenia Code(s): D69.6 - THROMBOCYTOPENIA, UNSPECIFIED (7) Seizure Code(s): R56.9 - UNSPECIFIED CONVULSIONS Assessment/Plan Current Medications Generic Name Dose Route Start Last Admin Trade Name Freq PRN Reason Stop Dose Admin Acetaminophen 1,000 mg 09/18/17 09:46 09/21/17 03:28 Ofirmev Injection - IVPB 1,000 mg Q6H PRN Administration PAIN LEVEL 1-5 Amino Acids 30 ml 09/03/17 16:15 09/21/17 12:13 Prosource No Carb Liquid Pkt NGT [address] Administration Chlorhexidine Gluconate 1 applic 08/29/17 22:00 09/20/17 21:45 Hibiclens For Decolonization - TP [address] Administration Diphenhydramine HCl 25 mg 09/15/17 09:52 09/21/17 08:48 Benadryl - PO 25 mg Q6H PRN Administration FOR ITCHING Docusate Sodium 100 mg 09/04/17 10:00 Colace Liquid - NGT TID PRN CONSTIPATION Heparin Sodium (Porcine) 5,000 unit 09/17/17 22:00 09/21/17 15:24 Heparin - SQ Not Given BID LANE Hydralazine HCl 100 mg 09/14/17 14:00 09/21/17 15:16 Apresoline - PO [address] Administration Hydralazine HCl 10 mg 09/17/17 16:51 Apresoline Injection - IVPUSH Q4H PRN HYPERTENSION Sodium Chloride 250 mls @ 3,000 mls/hr 09/20/17 14:13 Normal Saline - IV 09/21/17 14:13 PRN PRN Hypotension during Dialysis Isosorbide Mononitrate 30 mg 09/15/17 10:00 09/21/17 12:12 Imdur - PO [address] Administration Labetalol HCl 200 mg 09/15/17 09:10 09/17/17 08:03 Normodyne - PO 200 mg Q2H PRN Administration HYPERTENSION Labetalol HCl 400 mg 09/15/17 14:00 09/21/17 15:16 Normodyne - PO [address] Administration Lacosamide 100 mg 09/18/17 22:00 09/21/17 12:12 Vimpat - PO [address] Administration Lidocaine/Aluminum/Magnesium/Simeth 5 ml 09/12/17 00:00 09/21/17 12:15 Magic Mouthwash *Sjr Formula* - MM [address] Administration Multivit/Ca Carb/B Cmplx/FA/Prenat 1 tablet 09/13/17 10:00 09/21/17 12:13 Nephro-Claudia - PO [address] Administration Nifedipine 90 mg 09/16/17 10:00 09/21/17 12:12 Procardia Xl - PO [address] Administration Nystatin 1 applic 09/15/17 06:00 09/21/17 12:16 Mycostatin Cream - TP [address] Administration Sevelamer Carbonate 800 mg 09/16/17 17:30 09/21/17 12:15 Renvela - PO [address] Administration Laboratory Tests 09/21/17 05:00 Phosphorus 7.6 H Impression 1. ANNA 2. HTN urgency/emergency 3. hyperkalemia 4. hyponatremia 5. autism 6. hx of seizure 7. anemia 8. CKD 9. lactic acidosis improving 10. thrombocytopenia 11. hyperkalemia 12. pleural effusion 13. acute resp failure requiring intubation 14. ESRD Plan - pt had HD today - chest tubes removed today - increase sevelamer dose - next HD Sunday - possible kidney biopsy next week - epogen for anemia - vascular for fistula before discharge - low potassium diet - will follow Dr Velasquez
--- NOTE | 2017-09-21 17:51 | PN ---
Progress Note (short form) - Note Progress Note: CC: htn urgency S: appears comfortable, had second chest tube removed today. no other events. o: Current Medications Acetaminophen (Ofirmev Injection -) 1,000 mg IVPB Q6H PRN PRN Reason: PAIN LEVEL 1-5 Last Admin: 09/21/17 03:28 Dose: 1,000 mg Amino Acids (Prosource No Carb Liquid Pkt) 30 ml NGT DAILY [facility] Last Admin: 09/21/17 12:13 Dose: 30 ml Chlorhexidine Gluconate (Hibiclens For Decolonization -) 1 applic TP HS [facility] Last Admin: 09/20/17 21:45 Dose: 1 applic Diphenhydramine HCl (Benadryl -) 25 mg PO Q6H PRN PRN Reason: FOR ITCHING Last Admin: 09/21/17 08:48 Dose: 25 mg Docusate Sodium (Colace Liquid -) 100 mg NGT TID PRN PRN Reason: CONSTIPATION Heparin Sodium (Porcine) (Heparin -) 5,000 unit SQ BID [facility] Last Admin: 09/21/17 15:24 Dose: Not Given Hydralazine HCl (Apresoline -) 100 mg PO TID [facility] Last Admin: 09/21/17 15:16 Dose: 100 mg Hydralazine HCl (Apresoline Injection -) 10 mg IVPUSH Q4H PRN PRN Reason: HYPERTENSION Sodium Chloride (Normal Saline -) 250 mls @ 3,000 mls/hr IV PRN PRN PRN Reason: Hypotension during Dialysis Stop: 09/21/17 14:13 Isosorbide Mononitrate (Imdur -) 30 mg PO DAILY [facility] Last Admin: 09/21/17 12:12 Dose: 30 mg Labetalol HCl (Normodyne -) 200 mg PO Q2H PRN PRN Reason: HYPERTENSION Last Admin: 09/17/17 08:03 Dose: 200 mg Labetalol HCl (Normodyne -) 400 mg PO TID [facility] Last Admin: 09/21/17 15:16 Dose: 400 mg Lacosamide (Vimpat -) 100 mg PO BID [facility] Last Admin: 09/21/17 12:12 Dose: 100 mg Lidocaine/Aluminum/Magnesium/Simeth (Magic Mouthwash *Sjr Formula* -) 5 ml MM Q6HPO [facility] Last Admin: 09/21/17 17:30 Dose: 5 ml Multivit/Ca Carb/B Cmplx/FA/Prenat (Nephro-Claudia -) 1 tablet PO DAILY [facility] Last Admin: 09/21/17 12:13 Dose: 1 tablet Nifedipine (Procardia Xl -) 90 mg PO BID [facility] Last Admin: 09/21/17 12:12 Dose: 90 mg Nystatin (Mycostatin Cream -) 1 applic TP Q6HPO [facility] Last Admin: 09/21/17 17:31 Dose: 1 applic Sevelamer Carbonate (Renvela -) 1,600 mg PO TIDCM [facility] Last Admin: 09/21/17 17:31 Dose: 1,600 mg Vital Signs - 24 hr 09/20/17 09/20/17 09/20/17 18:00 20:00 21:00 Temperature 98.8 F Pulse Rate 99 H 103 H Respiratory 18 14 14 Rate Blood Pressure 138/94 142/78 O2 Sat by Pulse 100 Oximetry (%) 09/20/17 09/21/17 09/21/17 22:00 00:00 02:00 Temperature 98.5 F 98.5 F Pulse Rate 103 H 95 H 91 H Respiratory 16 16 16 Rate Blood Pressure 155/99 117/52 128/78 O2 Sat by Pulse 100 Oximetry (%) 09/21/17 09/21/17 09/21/17 04:00 06:00 07:55 Temperature 98.5 F 98.5 F Pulse Rate 93 H 89 84 Respiratory 15 20 16 Rate Blood Pressure 140/93 142/80 122/96 O2 Sat by Pulse Oximetry (%) 09/21/17 09/21/17 09/21/17 08:00 08:30 09:00 Temperature Pulse Rate 88 87 90 Respiratory 20 17 15 Rate Blood Pressure 140/80 135/92 142/80 O2 Sat by Pulse 100 Oximetry (%) 09/21/17 09/21/17 09/21/17 09:30 10:00 10:23 Temperature Pulse Rate 91 H 88 89 Respiratory 16 14 20 Rate Blood Pressure 146/82 135/89 135/89 O2 Sat by Pulse 100 Oximetry (%) 09/21/17 09/21/17 09/21/17 10:30 11:00 11:30 Temperature Pulse Rate 91 H 88 88 Respiratory 16 16 16 Rate Blood Pressure 139/83 129/88 131/86 O2 Sat by Pulse Oximetry (%) 09/21/17 09/21/17 09/21/17 12:00 12:16 12:40 Temperature Pulse Rate 88 85 90 Respiratory 16 14 20 Rate Blood Pressure 141/95 143/93 143/97 O2 Sat by Pulse Oximetry (%) 09/21/17 09/21/17 14:00 16:00 Temperature 98.3 F Pulse Rate 92 H 96 H Respiratory 20 20 Rate Blood Pressure 135/82 150/94 O2 Sat by Pulse Oximetry (%) Intake & Output 09/19/17 09/20/17 09/21/17 09/22/17 07:59 07:59 07:59 07:59 Intake Total 386 950 2262 550 Output Total 240 80 50 Balance 390 015 1920 550 Weight 166 lb 9 oz 162 lb 4 oz 168 lb 9 oz nad, calm nad no jvd rrr s1 s2 no mrg dullness at left base, nl effort. + bs soft nt nd. no jaundice diaphoresis no le e/c/c abd nd pos bs CBC, BMP 09/21/17 05:00 09/21/17 05:00 tele: SR ecg: sr,prolonged qtc, no ischemic changes echo 08/2017: nl lv/rv, no sig valve path cxr 09/21: dense retrocardiac kg persists. ? granuloma in mid left lung. cxr 09/10: progressive fluid and infiltrate on left. --> chest tube was adjusted. cxr: left eff a/p: 22 m hx autism, seizures, possible underlying ckd/htn here with ams, respiratory failure/sepsis, anna requiring HD and hypertensive urgency. Cardiac course complicated by mild troponin elevation and prolonged qtc. 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 was uncontrolled when here 12/11 for seizure, with agitation then--no BP checked since that discharge she says -has had difficult to control BP here, requiring nifedipine and labetalol drips (the latter up to 2mg/min, i.e. 2800 mg/day, without good bp control) 09/14: increased hydralzine to 100 tid and add imdur 30 qd -09/15: BP severely elevated again this am (220/100). change nifedip 120 qd to 90 bid to cover overnight/early AM bp's (very short-acting med). change coreg to labetalol 400 TID for greater potency (with prn PO doses ordered), will likely need closer to 600-800 TID labetlol, will titrate up as needed -BP much improved, continue current regimen (nifedipine 90 bid, hydral 100 tid, labetalol 400 TID, imdur 30). try to cut down nifedipine dose (to 60 bid) +/- hydralazine dose later, if bp remains well controlled. - 09/18: bp meds mostly held yesterday and this morning due to surgery, intubation etc. bp remains overall well controlled. con't to monitor. -09/19-09/21: bp overall improved, cont current meds -deferring RAAS-blockers for now given ANNA with renal w/u ongoing anna requiring HD: -creat 2.1 here in november, ? no prior w/u per mother -suspect hypertensive renal failure, progressive since then, though possible causality in other direction (no MD f/u since november, per mother) -renal eval in progress, planned for biopsy - getting HD here abnormal troponins - flat trend, with intermediate range values - secondary to sepsis myocardial injury, vs demand ischemia (severe HTN, with tachycardia to 120s-130s). no clinical findings to support acs here. anemia: -chronic, mgm't per primary team respiratory failure s/p intubation, pleural effusion - with white out of left lung - 09/04 s/p chest tube placement. - plan per critical care/thoracic surgery--s/p Bronchoscopy, left VATS, drainage of effusion, pneumolysis 09/17. now with chest tube x 2. - 09/20 one chest tube removed. - 09/21 second chest tube removed.
[2017-09-21] MEDS ORDERED: PT OWN MED DRAWER 7, Y5N ONE (20:45)
[2017-09-21] MEDS: CHLORHEXIDINE GLUCONATE 4% CLEANSER FOR DECOLONIZATION TP SCH (21:38)
[2017-09-22 05:56] LABS: BASO % 1.2 % (0-2.0); EOS % 3.8 % (0-4.5); HEMATOCRIT 27.9 % (35.4-49); HEMOGLOBIN 9.6 GM/dL (11.7-16.9); LYMPH % 38.3 % (8-40); MCH 30.4 pg (25.7-33.7); MCHC 34.4 g/dl (32.0-35.9); MEAN CELL VOLUME 88.6 fl (80-96); MEAN PLT VOLUME 7.4 fl (7.5-11.1); MONO % 5.7 % (3.8-10.2); PLATELET COUNT 540 K/MM3 (134-434); RBC 3.15 M/mm3 (4.00-5.60); RDW 14.9 % (11.9-15.9); WHITE BLOOD COUNT 9.7 K/mm3 (4.0-10.0)
--- NOTE | 2017-09-22 06:00 | PN ---
Progress Note, Physician Chief Complaint: At 5:15 called to bedside for report of tonic clonic seizure lasting ~1min. Found pt post-ictal, opens eyes quickly to voice and with labored breathing. O2 sat 100% on 100% NRB. Auscultated for scattered rhonchi. No additional meds given. Breathing normalized after a few minutes. - Current Medication List Current Medications: Active Medications Acetaminophen (Ofirmev Injection -) 1,000 mg IVPB Q6H PRN PRN Reason: PAIN LEVEL 1-5 Last Admin: 09/21/17 03:28 Dose: 1,000 mg Amino Acids (Prosource No Carb Liquid Pkt) 30 ml NGT DAILY [facility] Last Admin: 09/21/17 12:13 Dose: 30 ml Chlorhexidine Gluconate (Hibiclens For Decolonization -) 1 applic TP HS [facility] Last Admin: 09/21/17 21:38 Dose: 1 applic Diphenhydramine HCl (Benadryl -) 25 mg PO Q6H PRN PRN Reason: FOR ITCHING Last Admin: 09/21/17 08:48 Dose: 25 mg Docusate Sodium (Colace Liquid -) 100 mg NGT TID PRN PRN Reason: CONSTIPATION Heparin Sodium (Porcine) (Heparin -) 5,000 unit SQ BID [facility] Last Admin: 09/21/17 21:37 Dose: 5,000 unit Hydralazine HCl (Apresoline -) 100 mg PO TID [facility] Last Admin: 09/21/17 21:35 Dose: 100 mg Hydralazine HCl (Apresoline Injection -) 10 mg IVPUSH Q4H PRN PRN Reason: HYPERTENSION Sodium Chloride (Normal Saline -) 250 mls @ 3,000 mls/hr IV PRN PRN PRN Reason: Hypotension during Dialysis Stop: 09/21/17 14:13 Isosorbide Mononitrate (Imdur -) 30 mg PO DAILY [facility] Last Admin: 09/21/17 12:12 Dose: 30 mg Labetalol HCl (Normodyne -) 200 mg PO Q2H PRN PRN Reason: HYPERTENSION Last Admin: 09/17/17 08:03 Dose: 200 mg Labetalol HCl (Normodyne -) 400 mg PO TID [facility] Last Admin: 09/21/17 21:36 Dose: 400 mg Lacosamide (Vimpat -) 100 mg PO BID [facility] Last Admin: 09/21/17 21:36 Dose: 100 mg Lidocaine/Aluminum/Magnesium/Simeth (Magic Mouthwash *Sjr Formula* -) 5 ml MM Q6HPO [facility] Last Admin: 09/21/17 23:33 Dose: Not Given Multivit/Ca Carb/B Cmplx/FA/Prenat (Nephro-Claudia -) 1 tablet PO DAILY [facility] Last Admin: 09/21/17 12:13 Dose: 1 tablet Nifedipine (Procardia Xl -) 90 mg PO BID [facility] Last Admin: 09/21/17 21:37 Dose: 90 mg Nystatin (Mycostatin Cream -) 1 applic TP Q6HPO [facility] Last Admin: 09/21/17 23:33 Dose: Not Given Sevelamer Carbonate (Renvela -) 1,600 mg PO TIDCM [facility] Last Admin: 09/21/17 17:31 Dose: 1,600 mg - Objective Vital Signs: Vital Signs Temperature 98.2 F 09/22/17 02:00 Pulse Rate 92 H 09/22/17 04:00 Respiratory Rate 16 09/22/17 04:00 Blood Pressure 136/82 09/22/17 04:00 O2 Sat by Pulse Oximetry (%) 100 09/21/17 22:00 Constitutional: Yes: Calm Eyes: Yes: Conjunctiva Clear HENT: Yes: Atraumatic Neck: Yes: Supple Cardiovascular: Yes: Regular Rate and Rhythm, Tachycardia Respiratory: Yes: Regular, Rhonchi, Other (on 100% NRB) Gastrointestinal: Yes: Soft Neurological: Yes: Alert, Other (responds quickly to voice, tracks with eyes, pt at baseline) Labs: INR, PTT INR 1.03 (0.82-1.09) 09/17/17 06:45 Fibrinogen 558.0 mg/dL (238-498) H 09/17/17 06:45 CBC,CMP WBC 9.7 K/mm3 (4.0-10.0) D 09/22/17 05:35 RBC 3.15 M/mm3 (4.00-5.60) L 09/22/17 05:35 Hgb 9.6 GM/dL (11.7-16.9) L D 09/22/17 05:35 Hct 27.9 % (35.4-49) L 09/22/17 05:35 MCV 88.6 fl (80-96) 09/22/17 05:35 MCH 30.4 pg (25.7-33.7) 09/22/17 05:35 MCHC 34.4 g/dl (32.0-35.9) 09/22/17 05:35 RDW 14.9 % (11.9-15.9) 09/22/17 05:35 Plt Count 540 K/MM3 (134-434) H 09/22/17 05:35 MPV 7.4 fl (7.5-11.1) L 09/22/17 05:35 Neutrophils % 51.0 % (42.8-82.8) 09/22/17 05:35 Neutrophils % (Manual) 52.4 % (42.8-82.8) 09/06/17 06:20 Band Neutrophils % 0.0 % 09/06/17 06:20 Lymphocytes % 38.3 % (8-40) 09/22/17 05:35 Lymphocytes % (Manual) 33.3 % (8-40) D 09/06/17 06:20 Monocytes % 5.7 % (3.8-10.2) 09/22/17 05:35 Monocytes % (Manual) 2 % (3.8-10.2) L 09/06/17 06:20 Eosinophils % 3.8 % (0-4.5) 09/22/17 05:35 Eosinophils % (Manual) 11.9 % (0-4.5) H D 09/06/17 06:20 Basophils % 1.2 % (0-2.0) 09/22/17 05:35 Basophils % (Manual) 0.0 % (0-2.0) 09/06/17 06:20 Myelocytes % (Man) 0 % (0-2) D 09/06/17 06:20 Promyelocytes % (Man) 0 % (0-2) 09/06/17 06:20 Blast Cells % (Manual) 0 % (0-0) 09/06/17 06:20 Nucleated RBC % 0 % (0-0) 09/06/17 06:20 Metamyelocytes 0 % (0-2) 09/06/17 06:20 Hypochromia 0 04/11/18 06:15 Platelet Estimate Increased 09/06/17 06:20 Platelet Comment Rare giants plts 08/29/17 10:52 Polychromasia 1+ 09/06/17 06:20 Poikilocytosis 1+ 09/05/17 06:15 Anisocytosis 1+ 09/05/17 06:15 Microcytosis 1+ 09/05/17 06:15 Tear Drop Cells 1+ 08/29/17 10:52 Ovalocytes 1+ 08/29/17 10:52 Fragmented RBCs 1+ 08/29/17 10:52 Schistocytes 2+ 09/06/17 06:20 Morphology Comment See comment 08/29/17 18:00 ESR 96 mm/hr (0-10) H 08/31/17 05:40 Retic Count 3.57 % (0.5-1.5) H 09/05/17 06:15 Haptoglobin 160 mg/dL (34-200) 09/04/17 06:00 Sodium 140 mmol/L (136-145) 09/21/17 05:00 Potassium 4.7 mmol/L (3.5-5.1) 09/21/17 05:00 Plasma Potassium 4.6 mmol/L (3.5-5.1) 09/13/17 09:52 Chloride 102 mmol/L (98-107) 09/21/17 05:00 Carbon Dioxide 32 mmol/L (21-32) 09/21/17 05:00 Anion Gap 6 (8-16) L 09/21/17 05:00 BUN 33 mg/dL (7-18) H D 09/21/17 05:00 Creatinine 8.3 mg/dL (0.7-1.3) H* D 09/21/17 05:00 Creat Clearance w eGFR 14.13 (>60) 09/14/17 12:35 Random Glucose 89 mg/dL (74-106) 09/21/17 05:00 Lactic Acid 0.7 mmol/L (0.0-2.0) 08/29/17 16:04 Calcium 8.4 mg/dL (8.5-10.1) L 09/21/17 05:00 Phosphorus 7.6 mg/dL (2.5-4.9) H 09/21/17 05:00 Magnesium 2.3 mg/dL (1.8-2.4) 09/21/17 05:00 Iron 31 ug/dL (38-169) L 08/29/17 20:00 TIBC 149 ug/dL (250-450) L 08/29/17 20:00 Iron Saturation 21 % (15-55) 08/29/17 20:00 Transferrin 123 mg/dL (200-370) L 08/29/17 20:00 Ferritin 1092.933 ng/ml (16.4-293.9) H 08/29/17 20:00 Total Bilirubin < 0.1 mg/dL (0.2-1.0) L D 09/14/17 12:35 AST 17 U/L (15-37) 09/14/17 12:35 ALT 16 U/L (12-78) 09/14/17 12:35 Alkaline Phosphatase 75 U/L (45-117) 09/14/17 12:35 LD Total 285 U/L (87-241) H 09/05/17 06:15 Creatine Kinase 373 IU/L (39-308) H 08/29/17 12:37 Creatine Kinase Index 2.5 % (0.0-5.0) 08/29/17 12:37 CK-MB (CK-2) 9.4 ng/mL (0.3-4.0) H 08/29/17 12:37 Troponin I 0.25 ng/ml (0.00-0.05) H 08/31/17 05:40 C-Reactive Protein 12.9 MG/DL (0.00-0.3) H 08/31/17 05:40 Total Protein 6.1 g/dl (6.4-8.2) L 09/14/17 12:35 Total Protein (PEP) 4.2 g/dL (6.0-8.5) L 08/29/17 20:00 Albumin 2.0 g/dl (3.4-5.0) L 09/14/17 12:35 Albumin (PEP) 1.9 gm/dl (2.9-4.4) L 08/29/17 20:00 Globulin 2.3 g/dL (2.2-3.9) 08/29/17 20:00 Albumin/Globulin Ratio 0.8 (0.7-1.7) 08/29/17 20:00 Beta Globulins 0.8 gm/dL (0.7-1.3) 08/29/17 20:00 Lipase 186 U/L (73-393) 08/29/17 10:52 Vitamin B12 331 pg/ml (180-914) 08/30/17 06:05 TSH 5.20 uIU/ml (0.358-3.74) H 08/29/17 12:37 Free T4 0.73 ng/dl (0.76-1.16) L 08/30/17 06:05 PTH Intact 160 pg/mL (15-65) H 09/17/17 06:45 PTH Intact Intraop 0 m (.) 09/17/17 06:45 Problem List - Problems (1) Hypertensive urgency Code(s): I16.0 - HYPERTENSIVE URGENCY (2) Hyperkalemia Code(s): E87.5 - HYPERKALEMIA (3) Anemia Code(s): D64.9 - ANEMIA, UNSPECIFIED (4) Thrombocytopenia Code(s): D69.6 - THROMBOCYTOPENIA, UNSPECIFIED (5) Acute renal failure Code(s): N17.9 - ACUTE KIDNEY FAILURE, UNSPECIFIED Qualifiers: Acute renal failure type: unspecified Qualified Code(s): N17.9 - Acute kidney failure, unspecified (6) Seizures Code(s): R56.9 - UNSPECIFIED CONVULSIONS Assessment/Plan New Seizure- possible triggers recurrent disease, post iHD electrolyte disarray , low lacsamide levels Dyspnea postictal Plan: -Neuro consult -Cont lacosamide; check level -Check CMP, mag, Phos,CK,cbc; replete electrolytes -Aspiration precautions -Wean O2 to NC O2 as tasha -CXR -NPO for now Elvia Giles, MASSIMOP
[2017-09-22 06:20] LABS: ALBUMIN 2.6 g/dl (3.4-5.0); CHLORIDE 97 mmol/L (98-107); PHOSPHOROUS 5.4 mg/dL (2.5-4.9); POTASSIUM 4.7 mmol/L (3.5-5.1); SGOT/AST 18 U/L (15-37); SGPT/ALT 21 U/L (12-78); SODIUM 135 mmol/L (136-145)
[2017-09-22 06:22] LABS: ALK PHOS 91 U/L (45-117); ANION GAP 17 (8-16); BILIRUBIN,TOTAL 0.3 mg/dL (0.2-1.0); BLOOD UREA NITROGEN 26 mg/dL (7-18); CALCIUM 8.8 mg/dL (8.5-10.1); CO2 21 mmol/L (21-32); CREATININE 6.6 mg/dL (0.7-1.3); GLUCOSE,RANDOM 124 mg/dL (74-106); MAGNESIUM 2.2 mg/dL (1.8-2.4); TOT PROT 7.1 g/dl (6.4-8.2)
[2017-09-22] MEDS: NYSTATIN 100,000 UNIT/GM TOPICAL CREAM 15 GM TUBE TP SCH ×4 (06:46→21:29)
[2017-09-22] MEDS: LABETALOL HCL 200 MG TABLET (FP) PO SCH ×4 (06:47→21:28)
[2017-09-22] MEDS: hydrALAZINE HCL 50 MG TABLET (FP) PO SCH ×4 (06:47→21:28)
--- NOTE | 2017-09-22 09:47 | PN ---
Progress Note (short form) - Note Progress Note: RENAL Pt seen and examined mother is present who states that he had a seizure this morning Last Vital Signs Temp Pulse Resp BP Pulse Ox 98.5 F 85 16 145/98 100 09/22/17 06:00 09/22/17 09:00 09/22/17 09:00 09/22/17 09:00 09/21/17 22:00 awake, comfortable lungs clear cvs s1s2 rr abd soft ext trace edema neuro awake but does not speak CBC, BMP 09/22/17 05:35 09/22/17 05:35 Current Medications Generic Name Dose Route Start Last Admin Trade Name Freq PRN Reason Stop Dose Admin Acetaminophen 1,000 mg 09/18/17 09:46 09/21/17 03:28 Ofirmev Injection - IVPB 1,000 mg Q6H PRN Administration PAIN LEVEL 1-5 Amino Acids 30 ml 09/03/17 16:15 09/21/17 12:13 Prosource No Carb Liquid Pkt NGT [address] Administration Chlorhexidine Gluconate 1 applic 08/29/17 22:00 09/21/17 21:38 Hibiclens For Decolonization - TP [address] Administration Diphenhydramine HCl 25 mg 09/15/17 09:52 09/21/17 08:48 Benadryl - PO 25 mg Q6H PRN Administration FOR ITCHING Docusate Sodium 100 mg 09/04/17 10:00 Colace Liquid - NGT TID PRN CONSTIPATION Heparin Sodium (Porcine) 5,000 unit 09/17/17 22:00 09/21/17 21:37 Heparin - SQ 5,[address] Administration Hydralazine HCl 100 mg 09/14/17 14:00 09/22/17 06:47 Apresoline - PO Not Given TID LANE Hydralazine HCl 10 mg 09/17/17 16:51 Apresoline Injection - IVPUSH Q4H PRN HYPERTENSION Sodium Chloride 250 mls @ 3,000 mls/hr 09/20/17 14:13 Normal Saline - IV 09/21/17 14:13 PRN PRN Hypotension during Dialysis Isosorbide Mononitrate 30 mg 09/15/17 10:00 09/21/17 12:12 Imdur - PO [address] Administration Labetalol HCl 200 mg 09/15/17 09:10 09/17/17 08:03 Normodyne - PO 200 mg Q2H PRN Administration HYPERTENSION Labetalol HCl 400 mg 09/15/17 14:00 09/22/17 06:47 Normodyne - PO Not Given TID LANE Lacosamide 100 mg 09/18/17 22:00 09/21/17 21:36 Vimpat - PO [address] Administration Lidocaine/Aluminum/Magnesium/Simeth 5 ml 09/12/17 00:00 09/21/17 23:33 Magic Mouthwash *Sjr Formula* - MM Not Given Q6HPO LANE Multivit/Ca Carb/B Cmplx/FA/Prenat 1 tablet 09/13/17 10:00 09/21/17 12:13 Nephro-Claudia - PO [address] Administration Nifedipine 90 mg 09/16/17 10:00 09/21/17 21:37 Procardia Xl - PO [address] Administration Nystatin 1 applic 09/15/17 06:00 09/22/17 06:46 Mycostatin Cream - TP [address] Administration Sevelamer Carbonate 1,600 mg 09/21/17 17:30 09/21/17 17:31 Renvela - PO 1,[address] Administration Impression 1. ANNA 2. HTN urgency/emergency 3. hyperkalemia 4. hyponatremia 5. autism 6. hx of seizure- recurrence 7. anemia 8. CKD 9. may have recurrent lactic acidosis post ictally 10. thrombocytopenia 11. hyperkalemia 12. pleural effusion 13. acute resp failure requiring intubation 14. ESRD Plan for HD again in 2 days should have a supplement of his vimpat after HD must be very cautious with ANJU since BP can rise and seizures are a potential side effect he was not given some bp meds this morning. If BP remains a problem would add an daron inhibitor MV
[2017-09-22] MEDS: NIFEdipine E.R. 90 MG TABLET (FP) PO SCH ×2 (09:54→21:29)
[2017-09-22] MEDS: ISOSORBIDE MONONITRATE 30 MG TAB.SR.24H (FP) PO SCH (09:54)
[2017-09-22] MEDS: LACOSAMIDE 50 MG TABLET PO SCH ×2 (09:54→21:28)
[2017-09-22] MEDS: SEVELAMER CARBONATE 800 MG TAB (FP) PO SCH ×3 (09:55→17:13)
[2017-09-22] MEDS: VITAMIN B COMP W-C 1 EA TABLET PO SCH (09:58)
[2017-09-22] MEDS: AMINO ACIDS/PROTEIN HYDROLYS 30 ML LIQUID.PKT NGT SCH (10:13)
[2017-09-22] MEDS: HEPARIN NA (PORCINE) 5,000 UNITS/ML 1ML VIAL SQ SCH ×2 (10:15→21:28)
--- NOTE | 2017-09-22 10:38 | PN ---
Progress Note (short form) - Note Progress Note: PULMONARY/CCM Pt seen and examined in the ICU. Seizure episode this AM. Last Vital Signs Temp Pulse Resp BP Pulse Ox 98.5 F 85 16 145/98 100 09/22/17 06:00 09/22/17 09:00 09/22/17 09:00 09/22/17 09:00 09/21/17 22:00 Intake & Output 09/19/17 09/20/17 09/21/17 09/22/17 23:59 23:59 23:59 23:59 Intake Total 740 1220 1570 0 Output Total 240 80 50 Balance 500 1140 1520 0 Weight 75.551 kg 73.595 kg 76.459 kg 75.8 kg Gen: NAD at rest Heart: RRR Lung: decreased breath sounds at the bases Abd: soft, nontender Ext: no edema CBC, BMP 09/22/17 05:35 09/22/17 05:35 Active Medications Acetaminophen (Ofirmev Injection -) 1,000 mg IVPB Q6H PRN PRN Reason: PAIN LEVEL 1-5 Last Admin: 09/21/17 03:28 Dose: 1,000 mg Amino Acids (Prosource No Carb Liquid Pkt) 30 ml NGT DAILY [facility] Last Admin: 09/22/17 10:13 Dose: 30 ml Chlorhexidine Gluconate (Hibiclens For Decolonization -) 1 applic TP HS [facility] Last Admin: 09/21/17 21:38 Dose: 1 applic Diphenhydramine HCl (Benadryl -) 25 mg PO Q6H PRN PRN Reason: FOR ITCHING Last Admin: 09/21/17 08:48 Dose: 25 mg Docusate Sodium (Colace Liquid -) 100 mg NGT TID PRN PRN Reason: CONSTIPATION Heparin Sodium (Porcine) (Heparin -) 5,000 unit SQ BID [facility] Last Admin: 09/22/17 10:15 Dose: 5,000 unit Hydralazine HCl (Apresoline -) 100 mg PO TID [facility] Last Admin: 09/22/17 09:59 Dose: 100 mg Hydralazine HCl (Apresoline Injection -) 10 mg IVPUSH Q4H PRN PRN Reason: HYPERTENSION Sodium Chloride (Normal Saline -) 250 mls @ 3,000 mls/hr IV PRN PRN PRN Reason: Hypotension during Dialysis Stop: 09/21/17 14:13 Isosorbide Mononitrate (Imdur -) 30 mg PO DAILY [facility] Last Admin: 09/22/17 09:54 Dose: 30 mg Labetalol HCl (Normodyne -) 200 mg PO Q2H PRN PRN Reason: HYPERTENSION Last Admin: 09/17/17 08:03 Dose: 200 mg Labetalol HCl (Normodyne -) 400 mg PO TID [facility] Last Admin: 09/22/17 09:59 Dose: 400 mg Lacosamide (Vimpat -) 100 mg PO BID [facility] Last Admin: 09/22/17 09:54 Dose: 100 mg Lidocaine/Aluminum/Magnesium/Simeth (Magic Mouthwash *Sjr Formula* -) 5 ml MM Q6HPO [facility] Last Admin: 09/21/17 23:33 Dose: Not Given Multivit/Ca Carb/B Cmplx/FA/Prenat (Nephro-Claudia -) 1 tablet PO DAILY [facility] Last Admin: 09/22/17 09:58 Dose: 1 tablet Nifedipine (Procardia Xl -) 90 mg PO BID [facility] Last Admin: 09/22/17 09:54 Dose: 90 mg Nystatin (Mycostatin Cream -) 1 applic TP Q6HPO [facility] Last Admin: 09/22/17 06:46 Dose: 1 applic Sevelamer Carbonate (Renvela -) 1,600 mg PO TIDCM [facility] Last Admin: 09/22/17 09:55 Dose: 1,600 mg A/P Hypertensive Urgency resolved Acute Kidney Injury requiring HD Acute Hypoxic Respiratory Failure improving Pneumonia Loculated Pleural Effusion s/p L VATS/pneumolysis Severe Sepsis resolved Lactic Acidosis resolved Thrombocytopenia improved Anemia Autism - monitoring off antibiotics - pain control - HD per renal - monitor H/H - monitor urine output, creatinine - renal biopsy when stable - BP control - taper Fio2 to keep Spo2 >90% - PO as tolerated - DVT/GI prophylaxis
--- NOTE | 2017-09-22 11:28 | PN ---
Progress Note (short form) - Note Progress Note: CC: htn urgency S: pt does not communicate well. appears comfortable. had seizure earlier today. o: Current Medications Generic Name Dose Route Start Last Admin Trade Name Freq PRN Reason Stop Dose Admin Acetaminophen 1,000 mg 09/18/17 09:46 09/21/17 03:28 Ofirmev Injection - IVPB 1,000 mg Q6H PRN Administration PAIN LEVEL 1-5 Amino Acids 30 ml 09/03/17 16:15 09/22/17 10:13 Prosource No Carb Liquid Pkt NGT [address] Administration Chlorhexidine Gluconate 1 applic 08/29/17 22:00 09/21/17 21:38 Hibiclens For Decolonization - TP [address] Administration Diphenhydramine HCl 25 mg 09/15/17 09:52 09/21/17 08:48 Benadryl - PO 25 mg Q6H PRN Administration FOR ITCHING Docusate Sodium 100 mg 09/04/17 10:00 Colace Liquid - NGT TID PRN CONSTIPATION Heparin Sodium (Porcine) 5,000 unit 09/17/17 22:00 09/22/17 10:15 Heparin - SQ 5,[address] Administration Hydralazine HCl 100 mg 09/14/17 14:00 09/22/17 09:59 Apresoline - PO [address] Administration Hydralazine HCl 10 mg 09/17/17 16:51 Apresoline Injection - IVPUSH Q4H PRN HYPERTENSION Sodium Chloride 250 mls @ 3,000 mls/hr 09/20/17 14:13 Normal Saline - IV 09/21/17 14:13 PRN PRN Hypotension during Dialysis Isosorbide Mononitrate 30 mg 09/15/17 10:00 09/22/17 09:54 Imdur - PO [address] Administration Labetalol HCl 200 mg 09/15/17 09:10 09/17/17 08:03 Normodyne - PO 200 mg Q2H PRN Administration HYPERTENSION Labetalol HCl 400 mg 09/15/17 14:00 09/22/17 09:59 Normodyne - PO [address] Administration Lacosamide 100 mg 09/18/17 22:00 09/22/17 09:54 Vimpat - PO [address] Administration Lidocaine/Aluminum/Magnesium/Simeth 5 ml 09/12/17 00:00 09/21/17 23:33 Magic Mouthwash *Sjr Formula* - MM Not Given Q6HPO LANE Multivit/Ca Carb/B Cmplx/FA/Prenat 1 tablet 09/13/17 10:00 09/22/17 09:58 Nephro-Claudia - PO [address] Administration Nifedipine 90 mg 09/16/17 10:00 09/22/17 09:54 Procardia Xl - PO [address] Administration Nystatin 1 applic 09/15/17 06:00 09/22/17 06:46 Mycostatin Cream - TP [address] Administration Sevelamer Carbonate 1,600 mg 09/21/17 17:30 09/22/17 09:55 Renvela - PO 1,[address] Administration Vital Signs Period Temp Pulse Resp BP Sys/Mora Pulse Ox Last 24 Hr 98.2 F-98.6 F 85-99 14-20 121-150/69-98 100-100 nad, calm nad no jvd rrr s1 s2 no mrg cta bl nl effort. no jaundice diaphoresis trace le edema bl abd nd pos bs CBC, BMP 09/22/17 05:35 09/22/17 05:35 echo 08/2017: nl lv/rv, no sig valve path tele: SR a/p: 22 m hx autism, seizures, possible underlying ckd/htn here with ams, respiratory failure/sepsis, anna requiring HD and hypertensive urgency. Cardiac course complicated by mild troponin elevation and prolonged qtc. 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 was uncontrolled when here 12/11 for seizure, with agitation then--no BP checked since that discharge she says -has had difficult to control BP here, requiring nifedipine and labetalol drips (the latter up to 2mg/min, i.e. 2800 mg/day, without good bp control) 09/14: increased hydralzine to 100 tid and add imdur 30 qd -09/15: BP severely elevated again this am (220/100). change nifedip 120 qd to 90 bid to cover overnight/early AM bp's (very short-acting med). change coreg to labetalol 400 TID for greater potency (with prn PO doses ordered), will likely need closer to 600-800 TID labetlol, will titrate up as needed -BP much improved, continue current regimen (nifedipine 90 bid, hydral 100 tid, labetalol 400 TID, imdur 30). try to cut down nifedipine dose (to 60 bid) +/- hydralazine dose later, if bp remains well controlled. - 09/18: bp meds mostly held yesterday and this morning due to surgery, intubation etc. bp remains overall well controlled. con't to monitor. -09/19-09/22: bp overall improved, cont current meds -deferring RAAS-blockers for now given ANNA with renal w/u ongoing anna requiring HD: -creat 2.1 here in november, ? no prior w/u per mother -suspect hypertensive renal failure, progressive since then, though possible causality in other direction (no MD f/u since november, per mother) -renal eval in progress, planned for biopsy - getting HD here abnormal troponins - flat trend, with intermediate range values - secondary to sepsis myocardial injury, vs demand ischemia (severe HTN, with tachycardia to 120s-130s). no clinical findings to support acs here. anemia: -chronic, mgm't per primary team respiratory failure s/p intubation, pleural effusion - with white out of left lung - 09/04 s/p chest tube placement. - plan per critical care/thoracic surgery--s/p Bronchoscopy, left VATS, drainage of effusion, pneumolysis 09/17. now with chest tube x 2. - 09/20 one chest tube removed. - 09/21 second chest tube removed.
--- NOTE | 2017-09-22 11:42 | PN ---
Progress Note (short form) - Note Progress Note: Subjective: The patient was seen and examined at the bedside, he is non-verbal but awake Seizure this AM Current Medications Generic Name Dose Route Start Last Admin Trade Name Freq PRN Reason Stop Dose Admin Acetaminophen 1,000 mg 09/18/17 09:46 09/21/17 03:28 Ofirmev Injection - IVPB 1,000 mg Q6H PRN Administration PAIN LEVEL 1-5 Amino Acids 30 ml 09/03/17 16:15 09/22/17 10:13 Prosource No Carb Liquid Pkt NGT [address] Administration Chlorhexidine Gluconate 1 applic 08/29/17 22:00 09/21/17 21:38 Hibiclens For Decolonization - TP [address] Administration Diphenhydramine HCl 25 mg 09/15/17 09:52 09/21/17 08:48 Benadryl - PO 25 mg Q6H PRN Administration FOR ITCHING Docusate Sodium 100 mg 09/04/17 10:00 Colace Liquid - NGT TID PRN CONSTIPATION Heparin Sodium (Porcine) 5,000 unit 09/17/17 22:00 09/22/17 10:15 Heparin - SQ 5,[address] Administration Hydralazine HCl 100 mg 09/14/17 14:00 09/22/17 09:59 Apresoline - PO [address] Administration Hydralazine HCl 10 mg 09/17/17 16:51 Apresoline Injection - IVPUSH Q4H PRN HYPERTENSION Sodium Chloride 250 mls @ 3,000 mls/hr 09/20/17 14:13 Normal Saline - IV 09/21/17 14:13 PRN PRN Hypotension during Dialysis Isosorbide Mononitrate 30 mg 09/15/17 10:00 09/22/17 09:54 Imdur - PO [address] Administration Labetalol HCl 200 mg 09/15/17 09:10 09/17/17 08:03 Normodyne - PO 200 mg Q2H PRN Administration HYPERTENSION Labetalol HCl 400 mg 09/15/17 14:00 09/22/17 09:59 Normodyne - PO [address] Administration Lacosamide 100 mg 09/18/17 22:00 09/22/17 09:54 Vimpat - PO [address] Administration Lidocaine/Aluminum/Magnesium/Simeth 5 ml 09/12/17 00:00 09/21/17 23:33 Magic Mouthwash *Sjr Formula* - MM Not Given Q6HPO LANE Multivit/Ca Carb/B Cmplx/FA/Prenat 1 tablet 09/13/17 10:00 09/22/17 09:58 Nephro-Claudia - PO [address] Administration Nifedipine 90 mg 09/16/17 10:00 09/22/17 09:54 Procardia Xl - PO [address] Administration Nystatin 1 applic 09/15/17 06:00 09/22/17 06:46 Mycostatin Cream - TP [address] Administration Sevelamer Carbonate 1,600 mg 09/21/17 17:30 09/22/17 09:55 Renvela - PO 1,[address] Administration Objective: Vital Signs Period Temp Pulse Resp BP Sys/Mora Pulse Ox Last 24 Hr 98.2 F-98.6 F 85-99 14-20 121-150/69-98 100-100 Physical Exam: General: NAD Lungs: Decreased breath sound of left base Heart: RRR, S1S2 Abd: Soft, non-tender, non-distended. normoactive bowel sounds Ext: No edema Skin: Left chest tube x2 to gravity CBCD WBC 9.7 K/mm3 (4.0-10.0) D 09/22/17 05:35 RBC 3.15 M/mm3 (4.00-5.60) L 09/22/17 05:35 Hgb 9.6 GM/dL (11.7-16.9) L D 09/22/17 05:35 Hct 27.9 % (35.4-49) L 09/22/17 05:35 MCV 88.6 fl (80-96) 09/22/17 05:35 MCHC 34.4 g/dl (32.0-35.9) 09/22/17 05:35 RDW 14.9 % (11.9-15.9) 09/22/17 05:35 Plt Count 540 K/MM3 (134-434) H 09/22/17 05:35 MPV 7.4 fl (7.5-11.1) L 09/22/17 05:35 CMP Sodium 135 mmol/L (136-145) L 09/22/17 05:35 Potassium 4.7 mmol/L (3.5-5.1) 09/22/17 05:35 Chloride 97 mmol/L (98-107) L 09/22/17 05:35 Carbon Dioxide 21 mmol/L (21-32) D 09/22/17 05:35 Anion Gap 17 (8-16) H 09/22/17 05:35 BUN 26 mg/dL (7-18) H D 09/22/17 05:35 Creatinine 6.6 mg/dL (0.7-1.3) H D 09/22/17 05:35 Creat Clearance w eGFR 10.49 (>60) 09/22/17 05:35 Random Glucose 124 mg/dL (74-106) H D 09/22/17 05:35 Calcium 8.8 mg/dL (8.5-10.1) 09/22/17 05:35 Total Bilirubin 0.3 mg/dL (0.2-1.0) D 09/22/17 05:35 AST 18 U/L (15-37) 09/22/17 05:35 ALT 21 U/L (12-78) D 09/22/17 05:35 Alkaline Phosphatase 91 U/L (45-117) D 09/22/17 05:35 Total Protein 7.1 g/dl (6.4-8.2) 09/22/17 05:35 Albumin 2.6 g/dl (3.4-5.0) L D 09/22/17 05:35 CARDIAC ENZYMES Creatine Kinase 77 IU/L (39-308) 09/22/17 06:35 Troponin I 0.25 ng/ml (0.00-0.05) H 08/31/17 05:40 Microbiology 09/17/17 15:00 Bronchial Washings - Left Lower Lobe Gram Stain - Final 09/17/17 15:00 Bronchial Washings - Left Lower Lobe Bronchoalveolar Lavage Culture - Final Haemophilus Parainfluenzae I Stenotrophomon.(X.)Maltophilia Klebsiella Pneumoniae 09/17/17 15:00 Lung - Left Lower Lobe Gram Stain - Final 09/17/17 15:00 Lung - Left Lower Lobe Tissue Culture - Final NO GROWTH OF AEROBIC ORGANISMS AFTER 48 HOURS INCUBATION 09/17/17 15:00 Lung - Left Lower Lobe Anaerobic Culture - Final NO ANAEROBES WERE ISOLATED 09/17/17 15:00 Pleural Fluid Gram Stain - Final 09/17/17 15:00 Pleural Fluid Body Fluid Culture - Final NO GROWTH OF AEROBIC ORGANISMS AFTER 48 HOURS INCUBATION 09/17/17 15:00 Pleural Fluid Anaerobic Culture - Final NO ANAEROBES WERE ISOLATED 09/17/17 15:00 Lung - Left Lower Lobe AFB Smear Concentration - Final 09/17/17 15:00 Lung - Left Lower Lobe Mycobacterial Culture - Preliminary 09/17/17 15:00 Pleural Fluid AFB Smear Concentration - Final 09/17/17 15:00 Pleural Fluid Mycobacterial Culture - Preliminary 09/17/17 15:00 Bronchial Washings - Left Lower Lobe AFB Smear Concentration - Final 09/17/17 15:00 Bronchial Washings - Left Lower Lobe Mycobacterial Culture - Preliminary 09/17/17 15:00 Bronchial Washings - Left Lower Lobe VANESSA Preparation - Preliminary 09/17/17 15:00 Bronchial Washings - Left Lower Lobe Fungal Culture - Preliminary 09/17/17 15:00 Lung - Left Lower Lobe VANESSA Preparation - Preliminary 09/17/17 15:00 Lung - Left Lower Lobe Fungal Culture - Preliminary 09/17/17 15:00 Pleural Fluid VANESSA Preparation - Preliminary 09/17/17 15:00 Pleural Fluid Fungal Culture - Preliminary 09/11/17 13:15 Blood - Peripheral Venous Blood Culture - Final NO GROWTH AFTER 5 DAYS INCUBATION 09/11/17 12:44 Blood - Peripheral Venous Blood Culture - Final NO GROWTH AFTER 5 DAYS INCUBATION 09/04/17 16:30 Sputum - Endotrachea Suction/Ventilator Gram Stain - Final 09/04/17 16:30 Sputum - Endotrachea Suction/Ventilator Sputum Culture - Final 09/05/17 23:00 Stool Shiga Toxin Test - Final 09/06/17 16:15 Stool Salmonella/Shigella Culture - Final Yeast Like Organism 09/06/17 16:15 Stool Campylobacter Culture - Final NO GROWTH OF CAMPYLOBACTER SPECIES OBTAINED 09/06/17 16:15 Stool Yersinia Culture - Final NO GROWTH OF YERSINIA SPECIES OBTAINED 09/06/17 16:15 Stool Vibrio Culture - Final NO GROWTH OF VIBRIO SPECIES OBTAINED 09/06/17 16:15 Stool Escherichia coli 0157 Culture - Final NO GROWTH OF E COLI 0157 OBTAINED 09/02/17 16:20 Blood - Peripheral Venous Blood Culture - Final NO GROWTH AFTER 5 DAYS INCUBATION 09/04/17 11:45 Pleural Fluid Gram Stain - Final 09/04/17 11:45 Pleural Fluid Body Fluid Culture - Final NO GROWTH OF AEROBIC ORGANISMS AFTER 48 HOURS INCUBATION 09/04/17 11:45 Pleural Fluid Anaerobic Culture - Final NO ANAEROBES WERE ISOLATED 09/04/17 11:45 Pleural Fluid AFB Smear Concentration - Final 09/04/17 11:45 Pleural Fluid Mycobacterial Culture - Preliminary 09/05/17 23:00 Stool Clostridium difficile Antigen (JONAH) - Final 09/05/17 23:00 Stool Clostridium difficile Toxin Assay - Final 09/01/17 15:00 Blood - Central Line Blood Culture - Final NO GROWTH AFTER 5 DAYS INCUBATION 09/01/17 15:00 Blood - Central Line Blood Culture - Final NO GROWTH AFTER 5 DAYS INCUBATION 09/02/17 16:14 Pleural Fluid Gram Stain - Final 09/02/17 16:14 Pleural Fluid Body Fluid Culture - Final NO GROWTH OF AEROBIC ORGANISMS AFTER 48 HOURS INCUBATION 09/02/17 16:14 Pleural Fluid Anaerobic Culture - Final NO ANAEROBES WERE ISOLATED 09/04/17 11:45 Pleural Fluid VANESSA Preparation - Preliminary 09/04/17 11:45 Pleural Fluid Fungal Culture - Preliminary 09/02/17 18:00 Urine - Urine Clean Catch Urine Culture - Final NO GROWTH OBTAINED 08/29/17 12:37 Blood - Peripheral Venous Blood Culture - Final NO GROWTH AFTER 5 DAYS INCUBATION 08/29/17 12:37 Blood - Peripheral Venous Blood Culture - Final NO GROWTH AFTER 5 DAYS INCUBATION 08/29/17 10:52 Urine - Urine Clean Catch Urine Culture - Final NO GROWTH OBTAINED Assessment: This is a 22 year old male with PMHx of HTN, autism, epilepsy, who presented to the ED with diarrhea and increased dyspnea and was found to have hypertensive emergency, ANNA, pneumonia with a complicated hospital course including acute respiratory failure requiring intubation and a persistent left pleural effusion requiring vats and pneumolysis on 09/17 now with chest tubes x2 Plan: 1) Acute hypoxic respiratory failure, large left pleural effusion - S/p thoracentesis 09/02 - S/p pigtail 09/04 - S/p bronchoscopy/left VATS/drainage of effusion/pneumolysis 09/17 - Chest tubes now removed - Appreciate surgery consult - Appreciate pulmonary consult 2) Severe sepsis 2/2 pneumonia - Afebrile - Continue to observe off antibiotics at this time - Appreciate ID consult 3) ANNA, ESRD - Tolerated HD today - For kidney biopsy to be scheduled by nephrology - Will need fistula prior to discharge - Appreciate nephrology consult 4) Hypertensive emergency - BPs better controlled - Continue Hydralazine - Continue Imdur - Continue Labetolol - Continue Procardia Xl 5) Epilepsy - Had seizure this morning - Continue Vimpat 6) F/E/N: - Dysphagia pureed - Monitor electrolytes 7) Prophylaxis: - Heparin 5,000u sq bid - PT 8) Dispo: - Requires continued inpatient care CODE STATUS: FULL CODE Visit type - Emergency Visit Emergency Visit: Yes ED Registration Date: 08/29/17 Care time: The patient presented to the Emergency Department on the above date and was hospitalized for further evaluation of their emergent condition. - New Patient This patient is new to me today: No - Critical Care Critical Care patient: No
[2017-09-22] MEDS: MAG HYDROX/ALH/SMC/DPHA/LIDO 240 ML MOUTHWASH MM SCH ×3 (13:46→21:26)
[2017-09-22] MEDS ORDERED: PT OWN MED DRAWER 7, Y5N ONE (17:12)
[2017-09-22] MEDS: diphenhydrAMINE HCL 25 MG CAPSULE (FP) PO PRN (21:29)
[2017-09-22] MEDS: CHLORHEXIDINE GLUCONATE 4% CLEANSER FOR DECOLONIZATION TP SCH (21:30)
[2017-09-23] MEDS: MAG HYDROX/ALH/SMC/DPHA/LIDO 240 ML MOUTHWASH MM SCH ×4 (00:27→17:54)
[2017-09-23] MEDS: NYSTATIN 100,000 UNIT/GM TOPICAL CREAM 15 GM TUBE TP SCH ×4 (00:27→17:53)
[2017-09-23] MEDS: LABETALOL HCL 200 MG TABLET (FP) PO SCH ×3 (05:42→22:02)
[2017-09-23] MEDS: hydrALAZINE HCL 50 MG TABLET (FP) PO SCH ×3 (05:42→22:01)
[2017-09-23 05:51] LABS: EOS % 2.5 % (0-4.5); HEMATOCRIT 23.9 % (35.4-49); HEMOGLOBIN 8.5 GM/dL (11.7-16.9); LYMPH % 34.3 % (8-40); MCH 30.6 pg (25.7-33.7); MCHC 35.4 g/dl (32.0-35.9); MEAN CELL VOLUME 86.5 fl (80-96); MEAN PLT VOLUME 7.1 fl (7.5-11.1); MONO % 7.9 % (3.8-10.2); NEUT % 54.3 % (42.8-82.8); PLATELET COUNT 443 K/MM3 (134-434); RBC 2.77 M/mm3 (4.00-5.60); RDW 14.9 % (11.9-15.9); WHITE BLOOD COUNT 7.7 K/mm3 (4.0-10.0)
[2017-09-23 06:23] LABS: ANION GAP 4 (8-16); BLOOD UREA NITROGEN 42 mg/dL (7-18); CALCIUM 8.4 mg/dL (8.5-10.1); CHLORIDE 99 mmol/L (98-107); CO2 32 mmol/L (21-32); GLUCOSE,RANDOM 85 mg/dL (74-106); MAGNESIUM 2.4 mg/dL (1.8-2.4); PHOSPHOROUS 5.5 mg/dL (2.5-4.9); POTASSIUM 4.3 mmol/L (3.5-5.1); SODIUM 135 mmol/L (136-145)
[2017-09-23 07:13] LABS: CREATININE 9.3 mg/dL (0.7-1.3)
[2017-09-23] MEDS: SEVELAMER CARBONATE 800 MG TAB (FP) PO SCH ×3 (08:30→17:30)
--- NOTE | 2017-09-23 10:04 | PN ---
Progress Note (short form) - Note Progress Note: RENAL Pt seen and examined mother is present pt is sitting up and appears comfortable and is interactive Last Vital Signs Temp Pulse Resp BP Pulse Ox 98.8 F 80 15 124/78 96 09/23/17 06:00 09/23/17 08:00 09/23/17 08:00 09/23/17 08:00 09/22/17 22:00 awake, comfortable lungs clear cvs s1s2 rr abd soft ext trace edema neuro awake but does not speak CBC, BMP 09/23/17 05:35 09/23/17 05:35 Generic Name Dose Route Start Last Admin Trade Name Freq PRN Reason Stop Dose Admin Acetaminophen 1,000 mg 09/18/17 09:46 09/21/17 03:28 Ofirmev Injection - IVPB 1,000 mg Q6H PRN Administration PAIN LEVEL 1-5 Amino Acids 30 ml 09/03/17 16:15 09/21/17 12:13 Prosource No Carb Liquid Pkt NGT [address] Administration Chlorhexidine Gluconate 1 applic 08/29/17 22:00 09/21/17 21:38 Hibiclens For Decolonization - TP [address] Administration Diphenhydramine HCl 25 mg 09/15/17 09:52 09/21/17 08:48 Benadryl - PO 25 mg Q6H PRN Administration FOR ITCHING Docusate Sodium 100 mg 09/04/17 10:00 Colace Liquid - NGT TID PRN CONSTIPATION Heparin Sodium (Porcine) 5,000 unit 09/17/17 22:00 09/21/17 21:37 Heparin - SQ 5,[address] Administration Hydralazine HCl 100 mg 09/14/17 14:00 09/22/17 06:47 Apresoline - PO Not Given TID LANE Hydralazine HCl 10 mg 09/17/17 16:51 Apresoline Injection - IVPUSH Q4H PRN HYPERTENSION Sodium Chloride 250 mls @ 3,000 mls/hr 09/20/17 14:13 Normal Saline - IV 09/21/17 14:13 PRN PRN Hypotension during Dialysis Isosorbide Mononitrate 30 mg 09/15/17 10:00 09/21/17 12:12 Imdur - PO [address] Administration Labetalol HCl 200 mg 09/15/17 09:10 09/17/17 08:03 Normodyne - PO 200 mg Q2H PRN Administration HYPERTENSION Labetalol HCl 400 mg 09/15/17 14:00 09/22/17 06:47 Normodyne - PO Not Given TID LANE Lacosamide 100 mg 09/18/17 22:00 09/21/17 21:36 Vimpat - PO [address] Administration Lidocaine/Aluminum/Magnesium/Simeth 5 ml 09/12/17 00:00 09/21/17 23:33 Magic Mouthwash *Sjr Formula* - MM Not Given Q6HPO LANE Multivit/Ca Carb/B Cmplx/FA/Prenat 1 tablet 09/13/17 10:00 09/21/17 12:13 Nephro-Claudia - PO [address] Administration Nifedipine 90 mg 09/16/17 10:00 09/21/17 21:37 Procardia Xl - PO [address] Administration Nystatin 1 applic 09/15/17 06:00 09/22/17 06:46 Mycostatin Cream - TP [address] Administration Sevelamer Carbonate 1,600 mg 09/21/17 17:30 09/21/17 17:31 Renvela - PO 1,[address] Administration Impression 1. ANNA 2. HTN urgency/emergency 3. hyperkalemia 4. hyponatremia 5. autism 6. hx of seizure- recurrence 7. anemia 8. CKD 9. may have recurrent lactic acidosis post ictally 10. thrombocytopenia 11. hyperkalemia 12. pleural effusion 13. acute resp failure requiring intubation 14. ESRD Plan HD tomorrow continue current antihypertensives neuro follow up re AED dosing for kidney biopsy later this week [facility]
--- NOTE | 2017-09-23 10:38 | PN ---
Progress Note (short form) - Note Progress Note: CC: htn urgency S: pt does not communicate well. appears comfortable. no overnight events. o: Current Medications Generic Name Dose Route Start Last Admin Trade Name Freq PRN Reason Stop Dose Admin Acetaminophen 1,000 mg 09/18/17 09:46 09/21/17 03:28 Ofirmev Injection - IVPB 1,000 mg Q6H PRN Administration PAIN LEVEL 1-5 Amino Acids 30 ml 09/03/17 16:15 09/22/17 10:13 Prosource No Carb Liquid Pkt NGT [address] Administration Chlorhexidine Gluconate 1 applic 08/29/17 22:00 09/22/17 21:30 Hibiclens For Decolonization - TP [address] Administration Diphenhydramine HCl 25 mg 09/15/17 09:52 09/22/17 21:29 Benadryl - PO 25 mg Q6H PRN Administration FOR ITCHING Docusate Sodium 100 mg 09/04/17 10:00 Colace Liquid - NGT TID PRN CONSTIPATION Epoetin Mir 4,000 unit 09/23/17 10:05 Procrit - SQ 09/23/17 10:06 ONCE ONE Heparin Sodium (Porcine) 5,000 unit 09/17/17 22:00 09/22/17 21:28 Heparin - SQ 5,[address] Administration Hydralazine HCl 100 mg 09/14/17 14:00 09/23/17 05:42 Apresoline - PO [address] Administration Hydralazine HCl 10 mg 09/17/17 16:51 Apresoline Injection - IVPUSH Q4H PRN HYPERTENSION Sodium Chloride 250 mls @ 3,000 mls/hr 09/20/17 14:13 Normal Saline - IV 09/21/17 14:13 PRN PRN Hypotension during Dialysis Sodium Chloride 250 mls @ 3,000 mls/hr 09/23/17 10:05 Normal Saline - IV 09/24/17 10:06 PRN PRN Hypotension during Dialysis Isosorbide Mononitrate 30 mg 09/15/17 10:00 09/22/17 09:54 Imdur - PO [address] Administration Labetalol HCl 200 mg 09/15/17 09:10 09/17/17 08:03 Normodyne - PO 200 mg Q2H PRN Administration HYPERTENSION Labetalol HCl 400 mg 09/15/17 14:00 09/23/17 05:42 Normodyne - PO [address] Administration Lacosamide 100 mg 09/18/17 22:00 09/22/17 21:28 Vimpat - PO [address] Administration Lidocaine/Aluminum/Magnesium/Simeth 5 ml 09/12/17 00:00 09/23/17 05:43 Magic Mouthwash *Sjr Formula* - MM [address] Administration Multivit/Ca Carb/B Cmplx/FA/Prenat 1 tablet 09/13/17 10:00 09/22/17 09:58 Nephro-Claudia - PO [address] Administration Nifedipine 90 mg 09/16/17 10:00 09/22/17 21:29 Procardia Xl - PO [address] Administration Nystatin 1 applic 09/15/17 06:00 09/23/17 05:44 Mycostatin Cream - TP [address] Administration Sevelamer Carbonate 1,600 mg 09/21/17 17:30 09/22/17 17:13 Renvela - PO 1,[address] Administration Vital Signs Period Temp Pulse Resp BP Sys/Mora Pulse Ox Last 24 Hr 98.2 F-98.8 F 80-96 12-18 119-140/68-94 95-96 nad, calm nad no jvd rrr s1 s2 no mrg cta bl nl effort. no jaundice diaphoresis trace le edema bl abd nd pos bs CBC, BMP 09/23/17 05:35 09/23/17 05:35 echo 08/2017: nl lv/rv, no sig valve path tele: SR a/p: 22 m hx autism, seizures, possible underlying ckd/htn here with ams, respiratory failure/sepsis, anna requiring HD and hypertensive urgency. Cardiac course complicated by mild troponin elevation and prolonged qtc. 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 was uncontrolled when here 12/11 for seizure, with agitation then--no BP checked since that discharge she says -has had difficult to control BP here, requiring nifedipine and labetalol drips (the latter up to 2mg/min, i.e. 2800 mg/day, without good bp control) 09/14: increased hydralzine to 100 tid and add imdur 30 qd -09/15: BP severely elevated again this am (220/100). change nifedip 120 qd to 90 bid to cover overnight/early AM bp's (very short-acting med). change coreg to labetalol 400 TID for greater potency (with prn PO doses ordered), will likely need closer to 600-800 TID labetlol, will titrate up as needed -BP much improved, continue current regimen (nifedipine 90 bid, hydral 100 tid, labetalol 400 TID, imdur 30). try to cut down nifedipine dose (to 60 bid) +/- hydralazine dose later, if bp remains well controlled. - 09/18: bp meds mostly held yesterday and this morning due to surgery, intubation etc. bp remains overall well controlled. con't to monitor. -09/19-09/23: bp overall improved, cont current meds -deferring RAAS-blockers for now given ANNA with renal w/u ongoing anna requiring HD: -creat 2.1 here in november, ? no prior w/u per mother -suspect hypertensive renal failure, progressive since then, though possible causality in other direction (no MD f/u since november, per mother) -renal eval in progress, planned for biopsy - getting HD here abnormal troponins - flat trend, with intermediate range values - secondary to sepsis myocardial injury, vs demand ischemia (severe HTN, with tachycardia to 120s-130s). no clinical findings to support acs here. anemia: -chronic, mgm't per primary team respiratory failure s/p intubation, pleural effusion - with white out of left lung - 09/04 s/p chest tube placement. - plan per critical care/thoracic surgery--s/p Bronchoscopy, left VATS, drainage of effusion, pneumolysis 09/17. now with chest tube x 2. - 09/20 one chest tube removed. - 09/21 second chest tube removed.
[2017-09-23] MEDS: VITAMIN B COMP W-C 1 EA TABLET PO SCH (10:49)
[2017-09-23] MEDS: HEPARIN NA (PORCINE) 5,000 UNITS/ML 1ML VIAL SQ SCH ×2 (10:49→22:01)
[2017-09-23] MEDS: NIFEdipine E.R. 90 MG TABLET (FP) PO SCH ×2 (10:49→22:02)
[2017-09-23] MEDS: AMINO ACIDS/PROTEIN HYDROLYS 30 ML LIQUID.PKT NGT SCH (10:49)
[2017-09-23] MEDS: ISOSORBIDE MONONITRATE 30 MG TAB.SR.24H (FP) PO SCH (10:50)
[2017-09-23] MEDS: LACOSAMIDE 50 MG TABLET PO SCH ×2 (10:50→22:02)
--- NOTE | 2017-09-23 10:52 | PN ---
Progress Note (short form) - Note Progress Note: PULMONARY/CCM Pt seen and examined in the ICU. No further seizures. Was OOB to chair. Last Vital Signs Temp Pulse Resp BP Pulse Ox 98.8 F 80 15 124/78 96 09/23/17 06:00 09/23/17 08:00 09/23/17 08:00 09/23/17 08:00 09/22/17 22:00 Intake & Output 09/20/17 09/21/17 09/22/17 09/23/17 23:59 23:59 23:59 23:59 Intake Total 1220 1570 1320 Output Total 80 50 Balance 1140 1520 1320 Weight 73.595 kg 76.459 kg 75.8 kg 75.3 kg Gen: NAD at rest Heart: RRR Lung: decreased breath sounds at the bases Abd: soft, nontender Ext: no edema CBC, BMP 09/23/17 05:35 09/23/17 05:35 Active Medications Acetaminophen (Ofirmev Injection -) 1,000 mg IVPB Q6H PRN PRN Reason: PAIN LEVEL 1-5 Last Admin: 09/21/17 03:28 Dose: 1,000 mg Amino Acids (Prosource No Carb Liquid Pkt) 30 ml NGT DAILY [facility] Last Admin: 09/22/17 10:13 Dose: 30 ml Chlorhexidine Gluconate (Hibiclens For Decolonization -) 1 applic TP HS [facility] Last Admin: 09/22/17 21:30 Dose: 1 applic Diphenhydramine HCl (Benadryl -) 25 mg PO Q6H PRN PRN Reason: FOR ITCHING Last Admin: 09/22/17 21:29 Dose: 25 mg Docusate Sodium (Colace Liquid -) 100 mg NGT TID PRN PRN Reason: CONSTIPATION Epoetin Mir (Procrit -) 4,000 unit SQ ONCE ONE Stop: 09/23/17 10:06 Heparin Sodium (Porcine) (Heparin -) 5,000 unit SQ BID [facility] Last Admin: 09/22/17 21:28 Dose: 5,000 unit Hydralazine HCl (Apresoline -) 100 mg PO TID [facility] Last Admin: 09/23/17 05:42 Dose: 100 mg Hydralazine HCl (Apresoline Injection -) 10 mg IVPUSH Q4H PRN PRN Reason: HYPERTENSION Sodium Chloride (Normal Saline -) 250 mls @ 3,000 mls/hr IV PRN PRN PRN Reason: Hypotension during Dialysis Stop: 09/21/17 14:13 Sodium Chloride (Normal Saline -) 250 mls @ 3,000 mls/hr IV PRN PRN PRN Reason: Hypotension during Dialysis Stop: 09/24/17 10:06 Isosorbide Mononitrate (Imdur -) 30 mg PO DAILY [facility] Last Admin: 09/22/17 09:54 Dose: 30 mg Labetalol HCl (Normodyne -) 200 mg PO Q2H PRN PRN Reason: HYPERTENSION Last Admin: 09/17/17 08:03 Dose: 200 mg Labetalol HCl (Normodyne -) 400 mg PO TID [facility] Last Admin: 09/23/17 05:42 Dose: 400 mg Lacosamide (Vimpat -) 100 mg PO BID [facility] Last Admin: 09/22/17 21:28 Dose: 100 mg Lidocaine/Aluminum/Magnesium/Simeth (Magic Mouthwash *Sjr Formula* -) 5 ml MM Q6HPO [facility] Last Admin: 09/23/17 05:43 Dose: 5 ml Multivit/Ca Carb/B Cmplx/FA/Prenat (Nephro-Claudia -) 1 tablet PO DAILY [facility] Last Admin: 09/22/17 09:58 Dose: 1 tablet Nifedipine (Procardia Xl -) 90 mg PO BID [facility] Last Admin: 09/22/17 21:29 Dose: 90 mg Nystatin (Mycostatin Cream -) 1 applic TP Q6HPO [facility] Last Admin: 09/23/17 05:44 Dose: 1 applic Sevelamer Carbonate (Renvela -) 1,600 mg PO TIDCM [facility] Last Admin: 09/22/17 17:13 Dose: 1,600 mg A/P Hypertensive Urgency resolved Acute Kidney Injury requiring HD Acute Hypoxic Respiratory Failure improving Pneumonia Loculated Pleural Effusion s/p L VATS/pneumolysis Severe Sepsis resolved Lactic Acidosis resolved Thrombocytopenia improved Anemia Autism - monitoring off antibiotics - pain control - HD per renal - monitor H/H - monitor urine output, creatinine - renal biopsy when stable - BP control - taper Fio2 to keep Spo2 >90% - PO as tolerated - DVT/GI prophylaxis - can transfer to floor in AM
--- NOTE | 2017-09-23 17:39 | PN ---
Progress Note (short form) - Note Progress Note: Subjective: The patient was seen and examined at the bedside, he is non-verbal but awake No further seizure activity since yesterday morning Current Medications Generic Name Dose Route Start Last Admin Trade Name Freq PRN Reason Stop Dose Admin Acetaminophen 1,000 mg 09/18/17 09:46 09/21/17 03:28 Ofirmev Injection - IVPB 1,000 mg Q6H PRN Administration PAIN LEVEL 1-5 Amino Acids 30 ml 09/03/17 16:15 09/23/17 10:49 Prosource No Carb Liquid Pkt NGT [address] Administration Chlorhexidine Gluconate 1 applic 08/29/17 22:00 09/22/17 21:30 Hibiclens For Decolonization - TP [address] Administration Diphenhydramine HCl 25 mg 09/15/17 09:52 09/22/17 21:29 Benadryl - PO 25 mg Q6H PRN Administration FOR ITCHING Docusate Sodium 100 mg 09/04/17 10:00 Colace Liquid - NGT TID PRN CONSTIPATION Epoetin Mir 4,000 unit 09/23/17 10:05 Procrit - SQ 09/23/17 10:06 ONCE ONE Heparin Sodium (Porcine) 5,000 unit 09/17/17 22:00 09/23/17 10:49 Heparin - SQ 5,[address] Administration Hydralazine HCl 100 mg 09/14/17 14:00 09/23/17 14:16 Apresoline - PO [address] Administration Hydralazine HCl 10 mg 09/17/17 16:51 Apresoline Injection - IVPUSH Q4H PRN HYPERTENSION Sodium Chloride 250 mls @ 3,000 mls/hr 09/20/17 14:13 Normal Saline - IV 09/21/17 14:13 PRN PRN Hypotension during Dialysis Sodium Chloride 250 mls @ 3,000 mls/hr 09/23/17 10:05 Normal Saline - IV 09/24/17 10:06 PRN PRN Hypotension during Dialysis Isosorbide Mononitrate 30 mg 09/15/17 10:00 09/23/17 10:50 Imdur - PO [address] Administration Labetalol HCl 200 mg 09/15/17 09:10 09/17/17 08:03 Normodyne - PO 200 mg Q2H PRN Administration HYPERTENSION Labetalol HCl 400 mg 09/15/17 14:00 09/23/17 14:17 Normodyne - PO [address] Administration Lacosamide 100 mg 09/18/17 22:00 09/23/17 10:50 Vimpat - PO [address] Administration Lidocaine/Aluminum/Magnesium/Simeth 5 ml 09/12/17 00:00 09/23/17 05:43 Magic Mouthwash *Sjr Formula* - MM [address] Administration Multivit/Ca Carb/B Cmplx/FA/Prenat 1 tablet 09/13/17 10:00 09/23/17 10:49 Nephro-Claudia - PO [address] Administration Nifedipine 90 mg 09/16/17 10:00 09/23/17 10:49 Procardia Xl - PO [address] Administration Nystatin 1 applic 09/15/17 06:00 09/23/17 11:00 Mycostatin Cream - TP [address] Administration Sevelamer Carbonate 1,600 mg 09/21/17 17:30 09/23/17 11:45 Renvela - PO 1,[address] Administration Objective: Vital Signs Period Temp Pulse Resp BP Sys/Mora Pulse Ox Last 24 Hr 98.2 F-98.8 F 80-96 12-17 119-140/70-94 93-96 Physical Exam: General: NAD Lungs: Decreased breath sound of left base Heart: RRR, S1S2 Abd: Soft, non-tender, non-distended. normoactive bowel sounds Ext: No edema CBCD WBC 7.7 K/mm3 (4.0-10.0) 09/23/17 05:35 RBC 2.77 M/mm3 (4.00-5.60) L 09/23/17 05:35 Hgb 8.5 GM/dL (11.7-16.9) L D 09/23/17 05:35 Hct 23.9 % (35.4-49) L 09/23/17 05:35 MCV 86.5 fl (80-96) 09/23/17 05:35 MCHC 35.4 g/dl (32.0-35.9) 09/23/17 05:35 RDW 14.9 % (11.9-15.9) 09/23/17 05:35 Plt Count 443 K/MM3 (134-434) H 09/23/17 05:35 MPV 7.1 fl (7.5-11.1) L 09/23/17 05:35 CMP Sodium 135 mmol/L (136-145) L 09/23/17 05:35 Potassium 4.3 mmol/L (3.5-5.1) 09/23/17 05:35 Chloride 99 mmol/L (98-107) 09/23/17 05:35 Carbon Dioxide 32 mmol/L (21-32) D 09/23/17 05:35 Anion Gap 4 (8-16) L 09/23/17 05:35 BUN 42 mg/dL (7-18) H D 09/23/17 05:35 Creatinine 9.3 mg/dL (0.7-1.3) H* D 09/23/17 05:35 Creat Clearance w eGFR 10.49 (>60) 09/22/17 05:35 Random Glucose 85 mg/dL (74-106) D 09/23/17 05:35 Calcium 8.4 mg/dL (8.5-10.1) L 09/23/17 05:35 Total Bilirubin 0.3 mg/dL (0.2-1.0) D 09/22/17 05:35 AST 18 U/L (15-37) 09/22/17 05:35 ALT 21 U/L (12-78) D 09/22/17 05:35 Alkaline Phosphatase 91 U/L (45-117) D 09/22/17 05:35 Total Protein 7.1 g/dl (6.4-8.2) 09/22/17 05:35 Albumin 2.6 g/dl (3.4-5.0) L D 09/22/17 05:35 CARDIAC ENZYMES Creatine Kinase 77 IU/L (39-308) 09/22/17 06:35 Troponin I 0.25 ng/ml (0.00-0.05) H 08/31/17 05:40 Microbiology 09/17/17 15:00 Bronchial Washings - Left Lower Lobe Gram Stain - Final 09/17/17 15:00 Bronchial Washings - Left Lower Lobe Bronchoalveolar Lavage Culture - Final Haemophilus Parainfluenzae I Stenotrophomon.(X.)Maltophilia Klebsiella Pneumoniae 09/17/17 15:00 Lung - Left Lower Lobe Gram Stain - Final 09/17/17 15:00 Lung - Left Lower Lobe Tissue Culture - Final NO GROWTH OF AEROBIC ORGANISMS AFTER 48 HOURS INCUBATION 09/17/17 15:00 Lung - Left Lower Lobe Anaerobic Culture - Final NO ANAEROBES WERE ISOLATED 09/17/17 15:00 Pleural Fluid Gram Stain - Final 09/17/17 15:00 Pleural Fluid Body Fluid Culture - Final NO GROWTH OF AEROBIC ORGANISMS AFTER 48 HOURS INCUBATION 09/17/17 15:00 Pleural Fluid Anaerobic Culture - Final NO ANAEROBES WERE ISOLATED 09/17/17 15:00 Lung - Left Lower Lobe AFB Smear Concentration - Final 09/17/17 15:00 Lung - Left Lower Lobe Mycobacterial Culture - Preliminary 09/17/17 15:00 Pleural Fluid AFB Smear Concentration - Final 09/17/17 15:00 Pleural Fluid Mycobacterial Culture - Preliminary 09/17/17 15:00 Bronchial Washings - Left Lower Lobe AFB Smear Concentration - Final 09/17/17 15:00 Bronchial Washings - Left Lower Lobe Mycobacterial Culture - Preliminary 09/17/17 15:00 Bronchial Washings - Left Lower Lobe VANESSA Preparation - Preliminary 09/17/17 15:00 Bronchial Washings - Left Lower Lobe Fungal Culture - Preliminary 09/17/17 15:00 Lung - Left Lower Lobe VANESSA Preparation - Preliminary 09/17/17 15:00 Lung - Left Lower Lobe Fungal Culture - Preliminary 09/17/17 15:00 Pleural Fluid VANESSA Preparation - Preliminary 09/17/17 15:00 Pleural Fluid Fungal Culture - Preliminary 09/11/17 13:15 Blood - Peripheral Venous Blood Culture - Final NO GROWTH AFTER 5 DAYS INCUBATION 09/11/17 12:44 Blood - Peripheral Venous Blood Culture - Final NO GROWTH AFTER 5 DAYS INCUBATION 09/04/17 16:30 Sputum - Endotrachea Suction/Ventilator Gram Stain - Final 09/04/17 16:30 Sputum - Endotrachea Suction/Ventilator Sputum Culture - Final 09/05/17 23:00 Stool Shiga Toxin Test - Final 09/06/17 16:15 Stool Salmonella/Shigella Culture - Final Yeast Like Organism 09/06/17 16:15 Stool Campylobacter Culture - Final NO GROWTH OF CAMPYLOBACTER SPECIES OBTAINED 09/06/17 16:15 Stool Yersinia Culture - Final NO GROWTH OF YERSINIA SPECIES OBTAINED 09/06/17 16:15 Stool Vibrio Culture - Final NO GROWTH OF VIBRIO SPECIES OBTAINED 09/06/17 16:15 Stool Escherichia coli 0157 Culture - Final NO GROWTH OF E COLI 0157 OBTAINED 09/02/17 16:20 Blood - Peripheral Venous Blood Culture - Final NO GROWTH AFTER 5 DAYS INCUBATION 09/04/17 11:45 Pleural Fluid Gram Stain - Final 09/04/17 11:45 Pleural Fluid Body Fluid Culture - Final NO GROWTH OF AEROBIC ORGANISMS AFTER 48 HOURS INCUBATION 09/04/17 11:45 Pleural Fluid Anaerobic Culture - Final NO ANAEROBES WERE ISOLATED 09/04/17 11:45 Pleural Fluid AFB Smear Concentration - Final 09/04/17 11:45 Pleural Fluid Mycobacterial Culture - Preliminary 09/05/17 23:00 Stool Clostridium difficile Antigen (JONAH) - Final 09/05/17 23:00 Stool Clostridium difficile Toxin Assay - Final 09/01/17 15:00 Blood - Central Line Blood Culture - Final NO GROWTH AFTER 5 DAYS INCUBATION 09/01/17 15:00 Blood - Central Line Blood Culture - Final NO GROWTH AFTER 5 DAYS INCUBATION 09/02/17 16:14 Pleural Fluid Gram Stain - Final 09/02/17 16:14 Pleural Fluid Body Fluid Culture - Final NO GROWTH OF AEROBIC ORGANISMS AFTER 48 HOURS INCUBATION 09/02/17 16:14 Pleural Fluid Anaerobic Culture - Final NO ANAEROBES WERE ISOLATED 09/04/17 11:45 Pleural Fluid VANESSA Preparation - Preliminary 09/04/17 11:45 Pleural Fluid Fungal Culture - Preliminary 09/02/17 18:00 Urine - Urine Clean Catch Urine Culture - Final NO GROWTH OBTAINED 08/29/17 12:37 Blood - Peripheral Venous Blood Culture - Final NO GROWTH AFTER 5 DAYS INCUBATION 08/29/17 12:37 Blood - Peripheral Venous Blood Culture - Final NO GROWTH AFTER 5 DAYS INCUBATION 08/29/17 10:52 Urine - Urine Clean Catch Urine Culture - Final NO GROWTH OBTAINED Assessment: This is a 22 year old male with PMHx of HTN, autism, epilepsy, who presented to the ED with diarrhea and increased dyspnea and was found to have hypertensive emergency, ANNA, pneumonia with a complicated hospital course including acute respiratory failure requiring intubation and a persistent left pleural effusion requiring vats and pneumolysis on 09/17 now with chest tubes x2 Plan: 1) Acute hypoxic respiratory failure, large left pleural effusion - S/p thoracentesis 09/02 - S/p pigtail 09/04 - S/p bronchoscopy/left VATS/drainage of effusion/pneumolysis 09/17 - Chest tubes now removed - Appreciate surgery consult - Appreciate pulmonary consult 2) Severe sepsis 2/2 pneumonia - Afebrile - Continue to observe off antibiotics at this time - Appreciate ID consult 3) ANNA, ESRD - Tolerated HD yesterday - For kidney biopsy to be scheduled by nephrology - Will need fistula prior to discharge - Appreciate nephrology consult 4) Hypertensive emergency - BPs better controlled - Continue Hydralazine - Continue Imdur - Continue Labetolol - Continue Procardia Xl 5) Epilepsy - Had seizure this morning - Continue Vimpat 6) F/E/N: - Dysphagia pureed - Monitor electrolytes 7) Prophylaxis: - Heparin 5,000u sq bid - PT 8) Dispo: - Requires continued inpatient care CODE STATUS: FULL CODE Visit type - Emergency Visit Emergency Visit: Yes ED Registration Date: 08/29/17 Care time: The patient presented to the Emergency Department on the above date and was hospitalized for further evaluation of their emergent condition. - New Patient This patient is new to me today: Yes Date on this admission: 09/24/17 - Critical Care Critical Care patient: No
[2017-09-23] MEDS: CHLORHEXIDINE GLUCONATE 4% CLEANSER FOR DECOLONIZATION TP SCH (22:01)
[2017-09-24 05:59] LABS: HEMATOCRIT 24.9 % (35.4-49); HEMOGLOBIN 8.6 GM/dL (11.7-16.9); MCHC 34.5 g/dl (32.0-35.9); MEAN CELL VOLUME 86.9 fl (80-96); MEAN PLT VOLUME 7.1 fl (7.5-11.1); PLATELET COUNT 430 K/MM3 (134-434); RBC 2.87 M/mm3 (4.00-5.60); WHITE BLOOD COUNT 7.4 K/mm3 (4.0-10.0)
[2017-09-24] MEDS: MAG HYDROX/ALH/SMC/DPHA/LIDO 240 ML MOUTHWASH MM SCH ×2 (06:11)
[2017-09-24] MEDS: NYSTATIN 100,000 UNIT/GM TOPICAL CREAM 15 GM TUBE TP SCH ×4 (06:12→18:13)
[2017-09-24] MEDS: hydrALAZINE HCL 50 MG TABLET (FP) PO SCH ×3 (06:12→21:09)
[2017-09-24] MEDS: LABETALOL HCL 200 MG TABLET (FP) PO SCH ×3 (06:13→21:10)
[2017-09-24 06:31] LABS: ALBUMIN 2.5 g/dl (3.4-5.0); ANION GAP 10 (8-16); BLOOD UREA NITROGEN 54 mg/dL (7-18); CALCIUM 8.7 mg/dL (8.5-10.1); CHLORIDE 95 mmol/L (98-107); CO2 28 mmol/L (21-32); GLUCOSE,RANDOM 90 mg/dL (74-106); MAGNESIUM 2.6 mg/dL (1.8-2.4); PHOSPHOROUS 6.4 mg/dL (2.5-4.9); POTASSIUM 4.6 mmol/L (3.5-5.1); SGOT/AST 39 U/L (15-37); SODIUM 133 mmol/L (136-145)
[2017-09-24 06:42] LABS: ALK PHOS 110 U/L (45-117); BILIRUBIN,TOTAL 0.4 mg/dL (0.2-1.0); SGPT/ALT 45 U/L (12-78); TOT PROT 6.2 g/dl (6.4-8.2)
[2017-09-24 07:25] LABS: CREATININE 11.5 mg/dL (0.7-1.3)
[2017-09-24] MEDS: SEVELAMER CARBONATE 800 MG TAB (FP) PO SCH ×3 (09:06→18:12)
[2017-09-24] MEDS: AMINO ACIDS/PROTEIN HYDROLYS 30 ML LIQUID.PKT NGT SCH (09:07)
[2017-09-24] MEDS ORDERED: SODIUM CHLORIDE 250 ML IV PRN (10:30)
[2017-09-24] MEDS ORDERED: EPOETIN ALFA 2,000 UNIT/1 ML VIAL SQ ONE (10:30)
--- NOTE | 2017-09-24 10:54 | PN ---
Teaching Attending Note Name of Resident: Delilah Mathis ATTENDING PHYSICIAN STATEMENT I saw and evaluated the patient. I reviewed the resident's note and discussed the case with the resident. I agree with the resident's findings and plan as documented. SUBJECTIVE: Pt seen and examined in the ICU. No events overnight. Getting dialyzed. Tolerating PO. OBJECTIVE: Last Vital Signs Temp Pulse Resp BP Pulse Ox 98.6 F 96 H 18 137/66 98 09/24/17 06:00 09/24/17 09:45 09/24/17 09:45 09/24/17 09:45 09/23/17 22:00 Intake & Output 09/21/17 09/22/17 09/23/17 09/24/17 23:59 23:59 23:59 23:59 Intake Total 1570 1320 700 100 Output Total 50 Balance 1520 1320 700 100 Weight 76.459 kg 75.8 kg 75.3 kg 76.294 kg Gen: NAD at rest Heart: RRR Lung: decreased breath sounds at the bases Abd: soft, nontender Ext: no edema CBC, BMP 09/24/17 05:45 09/24/17 05:45 Active Medications Acetaminophen (Ofirmev Injection -) 1,000 mg IVPB Q6H PRN PRN Reason: PAIN LEVEL 1-5 Last Admin: 09/21/17 03:28 Dose: 1,000 mg Amino Acids (Prosource No Carb Liquid Pkt) 30 ml NGT DAILY [facility] Last Admin: 09/24/17 09:07 Dose: 30 ml Chlorhexidine Gluconate (Hibiclens For Decolonization -) 1 applic TP HS [facility] Last Admin: 09/23/17 22:01 Dose: 1 applic Diphenhydramine HCl (Benadryl -) 25 mg PO Q6H PRN PRN Reason: FOR ITCHING Last Admin: 09/22/17 21:29 Dose: 25 mg Docusate Sodium (Colace Liquid -) 100 mg NGT TID PRN PRN Reason: CONSTIPATION Heparin Sodium (Porcine) (Heparin -) 5,000 unit SQ BID [facility] Last Admin: 09/23/17 22:01 Dose: 5,000 unit Hydralazine HCl (Apresoline -) 100 mg PO TID [facility] Last Admin: 09/24/17 06:12 Dose: 100 mg Hydralazine HCl (Apresoline Injection -) 10 mg IVPUSH Q4H PRN PRN Reason: HYPERTENSION Isosorbide Mononitrate (Imdur -) 30 mg PO DAILY [facility] Last Admin: 09/23/17 10:50 Dose: 30 mg Labetalol HCl (Normodyne -) 200 mg PO Q2H PRN PRN Reason: HYPERTENSION Last Admin: 09/17/17 08:03 Dose: 200 mg Labetalol HCl (Normodyne -) 400 mg PO TID [facility] Last Admin: 09/24/17 06:13 Dose: 400 mg Lacosamide (Vimpat -) 100 mg PO BID [facility] Last Admin: 09/23/17 22:02 Dose: 100 mg Multivit/Ca Carb/B Cmplx/FA/Prenat (Nephro-Claudia -) 1 tablet PO DAILY [facility] Last Admin: 09/23/17 10:49 Dose: 1 tablet Nifedipine (Procardia Xl -) 90 mg PO BID [facility] Last Admin: 09/23/17 22:02 Dose: 90 mg Nystatin (Mycostatin Cream -) 1 applic TP Q6HPO [facility] Last Admin: 09/24/17 06:12 Dose: 1 applic Sevelamer Carbonate (Renvela -) 1,600 mg PO TIDCM [facility] Last Admin: 09/24/17 09:06 Dose: 1,600 mg ASSESSMENT AND PLAN: Hypertensive Urgency resolved Acute Kidney Injury requiring HD Acute Hypoxic Respiratory Failure resolved Pneumonia Loculated Pleural Effusion s/p L VATS/pneumolysis Severe Sepsis resolved Lactic Acidosis resolved Thrombocytopenia improved Anemia Autism - monitoring off antibiotics - pain control - HD per renal - monitor H/H - monitor urine output, creatinine - renal biopsy when stable - BP control - taper Fio2 to keep Spo2 >90% - PO as tolerated - rehab/PT - DVT/GI prophylaxis - can transfer to floor
[2017-09-24] MEDS: NIFEdipine E.R. 90 MG TABLET (FP) PO SCH ×2 (13:29→21:09)
--- NOTE | 2017-09-24 13:30 | PN ---
Progress Note (short form) - Note Progress Note: Pt examined at bedside, mother present. Just finished HD via catheter, HD nurse reports that the catheter worked well. ARms are less edematous than my last visit. There are numerous vein punctures in all the visible veins, no obvious useable vein for AV fistula in either arm. Pulses symmetric. Pt gets agitated to some degree when I examine his arms, pulls them away. Both arms tied down at this time. Rec: vein mapping of arms to more fully evaluate cephalic and basilic veins. I think that HD via an arm access is going to be problematic and pt will likely not be able to be accessed and may have issues keeping needles in place. Will d/ w Nephrology.
[2017-09-24] MEDS: ISOSORBIDE MONONITRATE 30 MG TAB.SR.24H (FP) PO SCH ×2 (13:33→21:09)
[2017-09-24] MEDS: LACOSAMIDE 50 MG TABLET PO SCH ×2 (13:34→21:09)
[2017-09-24] MEDS: HEPARIN NA (PORCINE) 5,000 UNITS/ML 1ML VIAL SQ SCH ×2 (13:35→21:09)
[2017-09-24] MEDS: VITAMIN B COMP W-C 1 EA TABLET PO SCH (13:41)
--- NOTE | 2017-09-24 13:52 | PN ---
Progress Note, Physician History of Present Illness: Pt seen and examined at bedside. He is currently getting HD. He appears comfortable. - Current Medication List Current Medications: Active Medications Acetaminophen (Ofirmev Injection -) 1,000 mg IVPB Q6H PRN PRN Reason: PAIN LEVEL 1-5 Last Admin: 09/21/17 03:28 Dose: 1,000 mg Amino Acids (Prosource No Carb Liquid Pkt) 30 ml NGT DAILY [facility] Last Admin: 09/24/17 09:07 Dose: 30 ml Chlorhexidine Gluconate (Hibiclens For Decolonization -) 1 applic TP HS [facility] Last Admin: 09/23/17 22:01 Dose: 1 applic Diphenhydramine HCl (Benadryl -) 25 mg PO Q6H PRN PRN Reason: FOR ITCHING Last Admin: 09/22/17 21:29 Dose: 25 mg Docusate Sodium (Colace Liquid -) 100 mg NGT TID PRN PRN Reason: CONSTIPATION Heparin Sodium (Porcine) (Heparin -) 5,000 unit SQ BID [facility] Last Admin: 09/24/17 13:35 Dose: 5,000 unit Hydralazine HCl (Apresoline -) 100 mg PO TID [facility] Last Admin: 09/24/17 13:33 Dose: 100 mg Hydralazine HCl (Apresoline Injection -) 10 mg IVPUSH Q4H PRN PRN Reason: HYPERTENSION Isosorbide Mononitrate (Imdur -) 30 mg PO DAILY [facility] Last Admin: 09/24/17 13:33 Dose: 30 mg Labetalol HCl (Normodyne -) 200 mg PO Q2H PRN PRN Reason: HYPERTENSION Last Admin: 09/17/17 08:03 Dose: 200 mg Labetalol HCl (Normodyne -) 400 mg PO TID [facility] Last Admin: 09/24/17 13:30 Dose: 400 mg Lacosamide (Vimpat -) 150 mg PO BID [facility] Last Admin: 09/24/17 13:34 Dose: 150 mg Multivit/Ca Carb/B Cmplx/FA/Prenat (Nephro-Claudia -) 1 tablet PO DAILY [facility] Last Admin: 09/24/17 13:41 Dose: 1 tablet Nifedipine (Procardia Xl -) 90 mg PO BID [facility] Last Admin: 09/24/17 13:29 Dose: 90 mg Nystatin (Mycostatin Cream -) 1 applic TP Q6HPO [facility] Last Admin: 09/24/17 13:34 Dose: 1 applic Sevelamer Carbonate (Renvela -) 1,600 mg PO TIDCM [facility] Last Admin: 09/24/17 13:30 Dose: 1,600 mg - Objective Vital Signs: Vital Signs Temperature 98.6 F 09/24/17 06:00 Pulse Rate 90 09/24/17 11:45 Respiratory Rate 18 09/24/17 11:45 Blood Pressure 131/110 09/24/17 11:45 O2 Sat by Pulse Oximetry (%) 98 09/23/17 22:00 Constitutional: Yes: Calm Eyes: Yes: Conjunctiva Clear HENT: Yes: Atraumatic Neck: Yes: Supple Cardiovascular: Yes: S1, S2 Respiratory: Yes: CTA Bilaterally Gastrointestinal: Yes: Soft Genitourinary: Yes: Incontinence Musculoskeletal: Yes: WNL Edema: No Neurological: Yes: Pre-Existing Deficit Labs: CBC, BMP 09/24/17 05:45 09/24/17 05:45 INR, PTT INR 1.03 (0.82-1.09) 09/17/17 06:45 Fibrinogen 558.0 mg/dL (238-498) H 09/17/17 06:45 Problem List - Problems (1) Acute renal failure Code(s): N17.9 - ACUTE KIDNEY FAILURE, UNSPECIFIED Qualifiers: Acute renal failure type: unspecified Qualified Code(s): N17.9 - Acute kidney failure, unspecified (2) Anemia Code(s): D64.9 - ANEMIA, UNSPECIFIED (3) Hyperkalemia Code(s): E87.5 - HYPERKALEMIA (4) Hypertensive urgency Code(s): I16.0 - HYPERTENSIVE URGENCY (5) Sepsis Code(s): A41.9 - SEPSIS, UNSPECIFIED ORGANISM Qualifiers: Sepsis type: sepsis due to unspecified organism Qualified Code(s): A41.9 - Sepsis, unspecified organism (6) Thrombocytopenia Code(s): D69.6 - THROMBOCYTOPENIA, UNSPECIFIED (7) Seizure Code(s): R56.9 - UNSPECIFIED CONVULSIONS Assessment/Plan Current Medications Generic Name Dose Route Start Last Admin Trade Name Freq PRN Reason Stop Dose Admin Acetaminophen 1,000 mg 09/18/17 09:46 09/21/17 03:28 Ofirmev Injection - IVPB 1,000 mg Q6H PRN Administration PAIN LEVEL 1-5 Amino Acids 30 ml 09/03/17 16:15 09/24/17 09:07 Prosource No Carb Liquid Pkt NGT [address] Administration Chlorhexidine Gluconate 1 applic 08/29/17 22:00 09/23/17 22:01 Hibiclens For Decolonization - TP [address] Administration Diphenhydramine HCl 25 mg 09/15/17 09:52 09/22/17 21:29 Benadryl - PO 25 mg Q6H PRN Administration FOR ITCHING Docusate Sodium 100 mg 09/04/17 10:00 Colace Liquid - NGT TID PRN CONSTIPATION Heparin Sodium (Porcine) 5,000 unit 09/17/17 22:00 09/24/17 13:35 Heparin - SQ 5,[address] Administration Hydralazine HCl 100 mg 09/14/17 14:00 09/24/17 13:33 Apresoline - PO [address] Administration Hydralazine HCl 10 mg 09/17/17 16:51 Apresoline Injection - IVPUSH Q4H PRN HYPERTENSION Isosorbide Mononitrate 30 mg 09/15/17 10:00 09/24/17 13:33 Imdur - PO [address] Administration Labetalol HCl 200 mg 09/15/17 09:10 09/17/17 08:03 Normodyne - PO 200 mg Q2H PRN Administration HYPERTENSION Labetalol HCl 400 mg 09/15/17 14:00 09/24/17 13:30 Normodyne - PO [address] Administration Lacosamide 150 mg 09/24/17 11:57 09/24/17 13:34 Vimpat - PO [address] Administration Multivit/Ca Carb/B Cmplx/FA/Prenat 1 tablet 09/13/17 10:00 09/24/17 13:41 Nephro-Claudia - PO [address] Administration Nifedipine 90 mg 09/16/17 10:00 09/24/17 13:29 Procardia Xl - PO [address] Administration Nystatin 1 applic 09/15/17 06:00 09/24/17 13:34 Mycostatin Cream - TP [address] Administration Sevelamer Carbonate 1,600 mg 09/21/17 17:30 09/24/17 13:30 Renvela - PO 1,[address] Administration Impression 1. ANNA 2. HTN urgency/emergency 3. hyperkalemia 4. hyponatremia 5. autism 6. hx of seizure 7. anemia 8. CKD 9. lactic acidosis improving 10. thrombocytopenia 11. hyperkalemia 12. pleural effusion 13. acute resp failure requiring intubation 14. ESRD Plan - pt had HD today - vascular input appreciated, AV access is going to be challenging as patient pulls on his wires and has pulled out several IV - repeat vein mapping - renal diet - check phos - discussed with pts family - IR for kidney biopsy Dr Velasquez
--- NOTE | 2017-09-24 14:30 | PN ---
Progress Note (short form) - Note Progress Note: Subjective: The patient was seen and examined at the bedside, he is non-verbal but awake Sat up in chair x2 yesterday Tolerating HD today Current Medications Generic Name Dose Route Start Last Admin Trade Name Freq PRN Reason Stop Dose Admin Acetaminophen 1,000 mg 09/18/17 09:46 09/21/17 03:28 Ofirmev Injection - IVPB 1,000 mg Q6H PRN Administration PAIN LEVEL 1-5 Amino Acids 30 ml 09/03/17 16:15 09/24/17 09:07 Prosource No Carb Liquid Pkt NGT [address] Administration Chlorhexidine Gluconate 1 applic 08/29/17 22:00 09/23/17 22:01 Hibiclens For Decolonization - TP [address] Administration Diphenhydramine HCl 25 mg 09/15/17 09:52 09/22/17 21:29 Benadryl - PO 25 mg Q6H PRN Administration FOR ITCHING Docusate Sodium 100 mg 09/04/17 10:00 Colace Liquid - NGT TID PRN CONSTIPATION Heparin Sodium (Porcine) 5,000 unit 09/17/17 22:00 09/24/17 13:35 Heparin - SQ 5,[address] Administration Hydralazine HCl 100 mg 09/14/17 14:00 09/24/17 13:33 Apresoline - PO [address] Administration Hydralazine HCl 10 mg 09/17/17 16:51 Apresoline Injection - IVPUSH Q4H PRN HYPERTENSION Isosorbide Mononitrate 30 mg 09/15/17 10:00 09/24/17 13:33 Imdur - PO [address] Administration Labetalol HCl 200 mg 09/15/17 09:10 09/17/17 08:03 Normodyne - PO 200 mg Q2H PRN Administration HYPERTENSION Labetalol HCl 400 mg 09/15/17 14:00 09/24/17 13:30 Normodyne - PO 400 mg TID LAEN Administration Lacosamide 150 mg 09/24/17 11:57 09/24/17 13:34 Vimpat - PO [address] Administration Multivit/Ca Carb/B Cmplx/FA/Prenat 1 tablet 09/13/17 10:00 09/24/17 13:41 Nephro-Claudia - PO [address] Administration Nifedipine 90 mg 09/16/17 10:00 09/24/17 13:29 Procardia Xl - PO [address] Administration Nystatin 1 applic 09/15/17 06:00 09/24/17 13:34 Mycostatin Cream - TP [address] Administration Sevelamer Carbonate 1,600 mg 09/21/17 17:30 09/24/17 13:30 Renvela - PO 1,[address] Administration Objective: Vital Signs Period Temp Pulse Resp BP Sys/Mora Pulse Ox Last 24 Hr 98.4 F-99.1 F 85-96 15-18 116-159/66-110 93-98 Physical Exam: General: NAD Lungs: Decreased breath sound of left base Heart: RRR, S1S2 Abd: Soft, non-tender, non-distended. normoactive bowel sounds Ext: No edema CBCD WBC 7.4 K/mm3 (4.0-10.0) 09/24/17 05:45 RBC 2.87 M/mm3 (4.00-5.60) L 09/24/17 05:45 Hgb 8.6 GM/dL (11.7-16.9) L 09/24/17 05:45 Hct 24.9 % (35.4-49) L 09/24/17 05:45 MCV 86.9 fl (80-96) 09/24/17 05:45 MCHC 34.5 g/dl (32.0-35.9) 09/24/17 05:45 RDW 15.0 % (11.9-15.9) 09/24/17 05:45 Plt Count 430 K/MM3 (134-434) 09/24/17 05:45 MPV 7.1 fl (7.5-11.1) L 09/24/17 05:45 CMP Sodium 133 mmol/L (136-145) L 09/24/17 05:45 Potassium 4.6 mmol/L (3.5-5.1) 09/24/17 05:45 Chloride 95 mmol/L (98-107) L 09/24/17 05:45 Carbon Dioxide 28 mmol/L (21-32) 09/24/17 05:45 Anion Gap 10 (8-16) 09/24/17 05:45 BUN 54 mg/dL (7-18) H D 09/24/17 05:45 Creatinine 11.5 mg/dL (0.7-1.3) H* D 09/24/17 05:45 Creat Clearance w eGFR 5.53 (>60) 09/24/17 05:45 Random Glucose 90 mg/dL (74-106) 09/24/17 05:45 Calcium 8.7 mg/dL (8.5-10.1) 09/24/17 05:45 Total Bilirubin 0.4 mg/dL (0.2-1.0) D 09/24/17 05:45 AST 39 U/L (15-37) H D 09/24/17 05:45 ALT 45 U/L (12-78) D 09/24/17 05:45 Alkaline Phosphatase 110 U/L (45-117) D 09/24/17 05:45 Total Protein 6.2 g/dl (6.4-8.2) L 09/24/17 05:45 Albumin 2.5 g/dl (3.4-5.0) L 09/24/17 05:45 CARDIAC ENZYMES Creatine Kinase 77 IU/L (39-308) 09/22/17 06:35 Troponin I 0.25 ng/ml (0.00-0.05) H 08/31/17 05:40 Microbiology 09/17/17 15:00 Bronchial Washings - Left Lower Lobe Gram Stain - Final 09/17/17 15:00 Bronchial Washings - Left Lower Lobe Bronchoalveolar Lavage Culture - Final Haemophilus Parainfluenzae I Stenotrophomon.(X.)Maltophilia Klebsiella Pneumoniae 09/17/17 15:00 Lung - Left Lower Lobe Gram Stain - Final 09/17/17 15:00 Lung - Left Lower Lobe Tissue Culture - Final NO GROWTH OF AEROBIC ORGANISMS AFTER 48 HOURS INCUBATION 09/17/17 15:00 Lung - Left Lower Lobe Anaerobic Culture - Final NO ANAEROBES WERE ISOLATED 09/17/17 15:00 Pleural Fluid Gram Stain - Final 09/17/17 15:00 Pleural Fluid Body Fluid Culture - Final NO GROWTH OF AEROBIC ORGANISMS AFTER 48 HOURS INCUBATION 09/17/17 15:00 Pleural Fluid Anaerobic Culture - Final NO ANAEROBES WERE ISOLATED 09/17/17 15:00 Lung - Left Lower Lobe AFB Smear Concentration - Final 09/17/17 15:00 Lung - Left Lower Lobe Mycobacterial Culture - Preliminary 09/17/17 15:00 Pleural Fluid AFB Smear Concentration - Final 09/17/17 15:00 Pleural Fluid Mycobacterial Culture - Preliminary 09/17/17 15:00 Bronchial Washings - Left Lower Lobe AFB Smear Concentration - Final 09/17/17 15:00 Bronchial Washings - Left Lower Lobe Mycobacterial Culture - Preliminary 09/17/17 15:00 Bronchial Washings - Left Lower Lobe VANESSA Preparation - Preliminary 09/17/17 15:00 Bronchial Washings - Left Lower Lobe Fungal Culture - Preliminary 09/17/17 15:00 Lung - Left Lower Lobe VANESSA Preparation - Preliminary 09/17/17 15:00 Lung - Left Lower Lobe Fungal Culture - Preliminary 09/17/17 15:00 Pleural Fluid VANESSA Preparation - Preliminary 09/17/17 15:00 Pleural Fluid Fungal Culture - Preliminary 09/11/17 13:15 Blood - Peripheral Venous Blood Culture - Final NO GROWTH AFTER 5 DAYS INCUBATION 09/11/17 12:44 Blood - Peripheral Venous Blood Culture - Final NO GROWTH AFTER 5 DAYS INCUBATION 09/04/17 16:30 Sputum - Endotrachea Suction/Ventilator Gram Stain - Final 09/04/17 16:30 Sputum - Endotrachea Suction/Ventilator Sputum Culture - Final 09/05/17 23:00 Stool Shiga Toxin Test - Final 09/06/17 16:15 Stool Salmonella/Shigella Culture - Final Yeast Like Organism 09/06/17 16:15 Stool Campylobacter Culture - Final NO GROWTH OF CAMPYLOBACTER SPECIES OBTAINED 09/06/17 16:15 Stool Yersinia Culture - Final NO GROWTH OF YERSINIA SPECIES OBTAINED 09/06/17 16:15 Stool Vibrio Culture - Final NO GROWTH OF VIBRIO SPECIES OBTAINED 09/06/17 16:15 Stool Escherichia coli 0157 Culture - Final NO GROWTH OF E COLI 0157 OBTAINED 09/02/17 16:20 Blood - Peripheral Venous Blood Culture - Final NO GROWTH AFTER 5 DAYS INCUBATION 09/04/17 11:45 Pleural Fluid Gram Stain - Final 09/04/17 11:45 Pleural Fluid Body Fluid Culture - Final NO GROWTH OF AEROBIC ORGANISMS AFTER 48 HOURS INCUBATION 09/04/17 11:45 Pleural Fluid Anaerobic Culture - Final NO ANAEROBES WERE ISOLATED 09/04/17 11:45 Pleural Fluid AFB Smear Concentration - Final 09/04/17 11:45 Pleural Fluid Mycobacterial Culture - Preliminary 09/05/17 23:00 Stool Clostridium difficile Antigen (JONAH) - Final 09/05/17 23:00 Stool Clostridium difficile Toxin Assay - Final 09/01/17 15:00 Blood - Central Line Blood Culture - Final NO GROWTH AFTER 5 DAYS INCUBATION 09/01/17 15:00 Blood - Central Line Blood Culture - Final NO GROWTH AFTER 5 DAYS INCUBATION 09/02/17 16:14 Pleural Fluid Gram Stain - Final 09/02/17 16:14 Pleural Fluid Body Fluid Culture - Final NO GROWTH OF AEROBIC ORGANISMS AFTER 48 HOURS INCUBATION 09/02/17 16:14 Pleural Fluid Anaerobic Culture - Final NO ANAEROBES WERE ISOLATED 09/04/17 11:45 Pleural Fluid VANESSA Preparation - Preliminary 09/04/17 11:45 Pleural Fluid Fungal Culture - Preliminary 09/02/17 18:00 Urine - Urine Clean Catch Urine Culture - Final NO GROWTH OBTAINED 08/29/17 12:37 Blood - Peripheral Venous Blood Culture - Final NO GROWTH AFTER 5 DAYS INCUBATION 08/29/17 12:37 Blood - Peripheral Venous Blood Culture - Final NO GROWTH AFTER 5 DAYS INCUBATION 08/29/17 10:52 Urine - Urine Clean Catch Urine Culture - Final NO GROWTH OBTAINED Assessment: This is a 22 year old male with PMHx of HTN, autism, epilepsy, who presented to the ED with diarrhea and increased dyspnea and was found to have hypertensive emergency, ANNA, pneumonia with a complicated hospital course including acute respiratory failure requiring intubation and a persistent left pleural effusion requiring vats and pneumolysis on 09/17 now with chest tubes x2 Plan: 1) Acute hypoxic respiratory failure, large left pleural effusion - S/p thoracentesis 09/02 - S/p pigtail 09/04 - S/p bronchoscopy/left VATS/drainage of effusion/pneumolysis 09/17 - Chest tubes now removed - Appreciate surgery consult - Appreciate pulmonary consult 2) Severe sepsis 2/2 pneumonia - Afebrile - Continue to observe off antibiotics at this time - Appreciate ID consult 3) ANNA, ESRD - Tolerating HD today - For kidney biopsy to be scheduled by nephrology - Will need fistula prior to discharge; evaluated by vascular today - Appreciate nephrology consult 4) Hypertensive emergency - BPs better controlled - Continue Hydralazine - Continue Imdur - Continue Labetolol - Continue Procardia Xl 5) Epilepsy - Had seizure this morning - Continue Vimpat 6) F/E/N: - Dysphagia pureed - Monitor electrolytes 7) Prophylaxis: - Heparin 5,000u sq bid - PT 8) Dispo: - Requires continued inpatient care CODE STATUS: FULL CODE Visit type - Emergency Visit Emergency Visit: Yes ED Registration Date: 08/29/17 Care time: The patient presented to the Emergency Department on the above date and was hospitalized for further evaluation of their emergent condition. - New Patient This patient is new to me today: No - Critical Care Critical Care patient: No
--- NOTE | 2017-09-24 15:21 | PN ---
Physical Exam: SUBJECTIVE: Patient seen and examined in the ICU. Pt's mother at bedside, and reports pt is not exhibiting any signs of pain. Pt getting dialyzed this morning. No events overnight. OBJECTIVE: Vital Signs Period Temp Pulse Resp BP Sys/Mora Pulse Ox Last 24 Hr 98.4 F-99.1 F 85-96 15-18 116-159/66-110 93-98 GENERAL: Alert, awake, in NAD. LUNGS: CTAB. HEART: Regular rhythm, tachycardic, +S1/S2, no murmurs appreciated. ABDOMEN: Soft, nontender, nondistended, no guarding. EXTREMITIES: Warm, well-perfused, no edema. NEUROLOGICAL: Cranial nerves II through XII grossly intact. No facial droop. Gait not observed. Laboratory Results - last 24 hr 09/24/17 09/24/17 05:45 05:45 WBC 7.4 RBC 2.87 L Hgb 8.6 L Hct 24.9 L MCV 86.9 MCH 30.0 MCHC 34.5 RDW 15.0 Plt Count 430 MPV 7.1 L Sodium 133 L Potassium 4.6 Chloride 95 L Carbon Dioxide 28 Anion Gap 10 BUN 54 H D Creatinine 11.5 H* D Creat Clearance w eGFR 5.53 Random Glucose 90 Calcium 8.7 Phosphorus 6.4 H Magnesium 2.6 H Total Bilirubin 0.4 D AST 39 H D ALT 45 D Alkaline Phosphatase 110 D Total Protein 6.2 L Albumin 2.5 L Active Medications Generic Name Dose Route Start Last Admin Trade Name Freq PRN Reason Stop Dose Admin Acetaminophen 1,000 mg 09/18/17 09:46 09/21/17 03:28 Ofirmev Injection - IVPB 1,000 mg Q6H PRN Administration PAIN LEVEL 1-5 Amino Acids 30 ml 09/03/17 16:15 09/24/17 09:07 Prosource No Carb Liquid Pkt NGT [address] Administration Chlorhexidine Gluconate 1 applic 08/29/17 22:00 09/23/17 22:01 Hibiclens For Decolonization - TP [address] Administration Diphenhydramine HCl 25 mg 09/15/17 09:52 09/22/17 21:29 Benadryl - PO 25 mg Q6H PRN Administration FOR ITCHING Docusate Sodium 100 mg 09/04/17 10:00 Colace Liquid - NGT TID PRN CONSTIPATION Heparin Sodium (Porcine) 5,000 unit 09/17/17 22:00 09/24/17 13:35 Heparin - SQ 5,[address] Administration Hydralazine HCl 100 mg 09/14/17 14:00 09/24/17 13:33 Apresoline - PO [address] Administration Hydralazine HCl 10 mg 09/17/17 16:51 Apresoline Injection - IVPUSH Q4H PRN HYPERTENSION Isosorbide Mononitrate 30 mg 09/15/17 10:00 09/24/17 13:33 Imdur - PO [address] Administration Labetalol HCl 200 mg 09/15/17 09:10 09/17/17 08:03 Normodyne - PO 200 mg Q2H PRN Administration HYPERTENSION Labetalol HCl 400 mg 09/15/17 14:00 09/24/17 13:30 Normodyne - PO [address] Administration Lacosamide 150 mg 09/24/17 11:57 09/24/17 13:34 Vimpat - PO [address] Administration Multivit/Ca Carb/B Cmplx/FA/Prenat 1 tablet 09/13/17 10:00 09/24/17 13:41 Nephro-Leatha - PO [address] Administration Nifedipine 90 mg 09/16/17 10:00 09/24/17 13:29 Procardia Xl - PO [address] Administration Nystatin 1 applic 09/15/17 06:00 09/24/17 13:34 Mycostatin Cream - TP [address] Administration Sevelamer Carbonate 1,600 mg 09/21/17 17:30 09/24/17 13:30 Renvela - PO 1,[address] Administration ASSESSMENT/PLAN: 22M with PMH of autism and seizure disorder, presents with severe htn, anemia, thrombocytopenia, leukocytosis, hyperkalemia, ANNA, admitted to ICU. # loculated Left pleural effusion - s/p Left VATS/pneumolysis on 09/17/[address] Ivy - resolved - both chest tubes removed # htn urgency - continue Labetalol, Hydralazine, Procardia, and Imdur - Cardiology recs appreciated - goal BP 120/80 # severe sepsis 2/2 pneumonia - resolved - continue to observe off antibiotics # acute hypoxic respiratory failure - resolved - pt re-intubated for procedure 09/17/17 and extubated 09/18/17 (pt intubated and extubated 09/06/17) # ANNA - Nephrology (Dr. Velasquez) recs appreciated: HD today - renal biopsy to be done once pt stable - IR can get biopsy if cleared by anesthesia - s/p permacath placement 09/10/17 - monitor Cr and UOP - continue Nephro-leatha and Renvela # anemia - pt s/p 4U PRBCs this hospitalization (with most recent unit on 09/10/17) - hgb stable - monitor for overt s/s of bleeding # seizure - s/p 1 minute seizure on 09/22/17. Most recent seizure prior to this was 2017, and prior to that was 11/2016. - Neurology (Dr. Nj) recs appreciated: increase Vimpat to 150 BID # FEN - Fluids: po - Electrolytes: hyponatremia, hyperkalemia and hyperphosphatemia noted, continue to monitor - Nutrition: dysphagia whole with [place] thick liquids, with Ensure chocolate pudding plus Prosource daily # Prophylaxis - DVT ppx with Heparin BID # dispo - pt stable for transfer to med-surg floor Visit type - Emergency Visit Emergency Visit: Yes ED Registration Date: 08/29/17 Care time: The patient presented to the Emergency Department on the above date and was hospitalized for further evaluation of their emergent condition. - New Patient This patient is new to me today: No - Critical Care Critical Care patient: Yes Total Critical Care Time (in minutes): 40 Critical Care Statement: The care of this patient involved high complexity decision making to prevent further life threatening deterioration of the patient 's condition and/or to evaluate & treat vital organ system(s) failure or risk of failure.
--- NOTE | 2017-09-24 15:39 | PN ---
Progress Note, COSMETIC DENTIST - Note Progress Note: Selected Entries 09/23/17 09/23/17 09/23/17 06:00 10:00 14:00 Breakfast 75% Lunch Supper Temperature 98.8 F 98.2 F 98.4 F 09/23/17 09/23/17 09/24/17 20:00 22:00 02:00 Breakfast 75% Lunch 75% Supper 75% Temperature 98.6 F 98.4 F 09/24/17 09/24/17 09/24/17 06:00 10:38 14:00 Breakfast 75% Lunch Supper Temperature 98.6 F 99.1 F 09/24/17 14:31 Breakfast Lunch 75% Supper Temperature Laboratory Tests 09/24/17 05:45 WBC 7.4 Tolerating diet ordered - Dysphagia Whole diet (no rice) , nectar thick liquid Swallowing reassessed with overt tolerance of thin water and soda via straw. Silent aspiration can not be r/o at bedside. Case discussed with nursing and pt's mother. Trial of thin liquid. Careful monitoring for cough, throat clearing, increasing congestion, fever.
[2017-09-24] MEDS ORDERED: LIDOCAINE HCL 1%, 10 MG/ML (20ML VIAL) ONE (15:57)
--- NOTE | 2017-09-24 17:38 | PN ---
Progress Note (short form) - Note Progress Note: CC: htn urgency S: non-verbal. appears comfortable. given trial off restraints today. denies discomfort. o: Current Medications Acetaminophen (Ofirmev Injection -) 1,000 mg IVPB Q6H PRN PRN Reason: PAIN LEVEL 1-5 Last Admin: 09/21/17 03:28 Dose: 1,000 mg Amino Acids (Prosource No Carb Liquid Pkt) 30 ml NGT DAILY [facility] Last Admin: 09/24/17 09:07 Dose: 30 ml Chlorhexidine Gluconate (Hibiclens For Decolonization -) 1 applic TP HS [facility] Last Admin: 09/23/17 22:01 Dose: 1 applic Diphenhydramine HCl (Benadryl -) 25 mg PO Q6H PRN PRN Reason: FOR ITCHING Last Admin: 09/22/17 21:29 Dose: 25 mg Docusate Sodium (Colace Liquid -) 100 mg NGT TID PRN PRN Reason: CONSTIPATION Heparin Sodium (Porcine) (Heparin -) 5,000 unit SQ BID [facility] Last Admin: 09/24/17 13:35 Dose: 5,000 unit Hydralazine HCl (Apresoline -) 100 mg PO TID [facility] Last Admin: 09/24/17 13:33 Dose: 100 mg Hydralazine HCl (Apresoline Injection -) 10 mg IVPUSH Q4H PRN PRN Reason: HYPERTENSION Isosorbide Mononitrate (Imdur -) 30 mg PO DAILY [facility] Last Admin: 09/24/17 13:33 Dose: 30 mg Labetalol HCl (Normodyne -) 200 mg PO Q2H PRN PRN Reason: HYPERTENSION Last Admin: 09/17/17 08:03 Dose: 200 mg Labetalol HCl (Normodyne -) 400 mg PO TID [facility] Last Admin: 09/24/17 13:30 Dose: 400 mg Lacosamide (Vimpat -) 150 mg PO BID [facility] Last Admin: 09/24/17 13:34 Dose: 150 mg Multivit/Ca Carb/B Cmplx/FA/Prenat (Nephro-Claudia -) 1 tablet PO DAILY [facility] Last Admin: 09/24/17 13:41 Dose: 1 tablet Nifedipine (Procardia Xl -) 90 mg PO BID [facility] Last Admin: 09/24/17 13:29 Dose: 90 mg Nystatin (Mycostatin Cream -) 1 applic TP Q6HPO [facility] Last Admin: 09/24/17 13:34 Dose: 1 applic Sevelamer Carbonate (Renvela -) 1,600 mg PO TIDCM [facility] Last Admin: 09/24/17 13:30 Dose: 1,600 mg Vital Signs - 24 hr 09/23/17 09/23/17 09/23/17 18:00 20:00 22:00 Temperature 98.6 F Pulse Rate 85 88 90 Respiratory 15 16 16 Rate Blood Pressure 132/70 136/80 136/80 O2 Sat by Pulse 98 98 Oximetry (%) 09/24/17 09/24/17 09/24/17 00:00 02:00 04:00 Temperature 98.4 F Pulse Rate 90 89 90 Respiratory 16 17 18 Rate Blood Pressure 145/88 116/98 132/82 O2 Sat by Pulse Oximetry (%) 09/24/17 09/24/17 09/24/17 06:00 08:00 08:30 Temperature 98.6 F Pulse Rate 88 86 85 Respiratory 16 16 18 Rate Blood Pressure 150/80 131/75 127/72 O2 Sat by Pulse Oximetry (%) 09/24/17 09/24/17 09/24/17 08:45 09:00 09:15 Temperature Pulse Rate 87 93 H Respiratory 18 18 Rate Blood Pressure 131/75 133/75 O2 Sat by Pulse 98 Oximetry (%) 09/24/17 09/24/17 09/24/17 09:45 10:00 10:15 Temperature Pulse Rate 96 H 94 H Respiratory 18 18 Rate Blood Pressure 137/66 139/82 O2 Sat by Pulse 98 Oximetry (%) 09/24/17 09/24/17 09/24/17 10:45 11:15 11:45 Temperature Pulse Rate 94 H 91 H 90 Respiratory 18 18 18 Rate Blood Pressure 132/86 136/90 131/110 O2 Sat by Pulse Oximetry (%) 09/24/17 09/24/17 09/24/17 12:15 12:45 13:00 Temperature Pulse Rate 92 H 92 H 90 Respiratory 18 18 18 Rate Blood Pressure 157/102 156/93 143/75 O2 Sat by Pulse Oximetry (%) 09/24/17 09/24/17 14:00 16:00 Temperature 99.1 F Pulse Rate 93 H 89 Respiratory 16 16 Rate Blood Pressure 159/93 143/75 O2 Sat by Pulse Oximetry (%) Intake & Output 09/22/17 09/23/17 09/24/17 09/25/17 07:59 07:59 07:59 07:59 Intake Total 1270 1320 800 Balance 1270 1320 800 Weight 167 lb 1.766 oz 166 lb 0.129 oz 168 lb 3.2 oz nad, calm no jvd rrr s1 s2 no mrg dullness at left base, poor effort. + bs soft nt nd. no jaundice diaphoresis no le e/c/c + dp/pt abd nd pos bs CBC, BMP 09/24/17 05:45 09/24/17 05:45 Microbiology 09/17/17 15:00 Bronchial Washings - Left Lower Lobe Gram Stain - Final 09/17/17 15:00 Bronchial Washings - Left Lower Lobe Bronchoalveolar Lavage Culture - Final Haemophilus Parainfluenzae I Stenotrophomon.(X.)Maltophilia Klebsiella Pneumoniae Laboratory Tests 09/24/17 05:45 Magnesium 2.6 H Total Bilirubin 0.4 D AST 39 H D ALT 45 D Alkaline Phosphatase 110 D Albumin 2.5 L echo 08/2017: nl lv/rv, no sig valve path tele: SR a/p: 22 m hx autism, seizures, possible underlying ckd/htn here with ams, respiratory failure/sepsis, anna requiring HD and hypertensive urgency. Cardiac course complicated by mild troponin elevation and prolonged qtc. 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 was uncontrolled when here 12/11 for seizure, with agitation then--no BP checked since that discharge she says -has had difficult to control BP here, requiring nifedipine and labetalol drips (the latter up to 2mg/min, i.e. 2800 mg/day, without good bp control) 09/14: increased hydralzine to 100 tid and add imdur 30 qd -09/15: BP severely elevated again this am (220/100). change nifedip 120 qd to 90 bid to cover overnight/early AM bp's (very short-acting med). change coreg to labetalol 400 TID for greater potency (with prn PO doses ordered), will likely need closer to 600-800 TID labetlol, will titrate up as needed -BP much improved, continue current regimen (nifedipine 90 bid, hydral 100 tid, labetalol 400 TID, imdur 30). try to cut down nifedipine dose (to 60 bid) +/- hydralazine dose later, if bp remains well controlled. - 09/18: bp meds mostly held yesterday and this morning due to surgery, intubation etc. bp remains overall well controlled. con't to monitor. -09/19-09/23: bp overall improved, cont current meds - 09/24: bp overal improved, but still with intermittent sbp's in the 150's. -- > will increase imdur to bid dosing. -deferring RAAS-blockers for now given ANNA with renal w/u ongoing anna requiring HD: -creat 2.1 here in november, ? no prior w/u per mother -suspect hypertensive renal failure, progressive since then, though possible causality in other direction (no MD f/u since november, per mother) -renal eval in progress, planned for biopsy - getting HD here abnormal troponins - flat trend, with intermediate range values - secondary to sepsis myocardial injury, vs demand ischemia (severe HTN, with tachycardia to 120s-130s). no clinical findings to support acs here. anemia: -chronic, mgm't per primary team respiratory failure s/p intubation, pleural effusion - with white out of left lung - 09/04 s/p chest tube placement. - plan per critical care/thoracic surgery--s/p Bronchoscopy, left VATS, drainage of effusion, pneumolysis 09/17. now with chest tube x 2. - 09/20 one chest tube removed. - 09/21 second chest tube removed.
[2017-09-24] MEDS ORDERED: EPOETIN ALFA 2,000 UNIT/1 ML VIAL IVPUSH ONE (19:19)
[2017-09-24] MEDS ORDERED: DOCUSATE NA 100 MG/10 ML UNIT-DOSE CUPS NGT PRN (19:19)
[2017-09-24] MEDS ORDERED: ACETAMINOPHEN 1000 MG/100 ML VIAL (NON FORMULARY) IVPB PRN (19:19)
[2017-09-24] MEDS ORDERED: hydrALAZINE HCL 20 MG/ML VIAL IVPUSH PRN (19:19)
[2017-09-24] MEDS ORDERED: LABETALOL HCL 200 MG TABLET (FP) PO PRN (19:19)
[2017-09-25] MEDS: NYSTATIN 100,000 UNIT/GM TOPICAL CREAM 15 GM TUBE TP SCH ×4 (00:26→18:26)
[2017-09-25] MEDS: LABETALOL HCL 200 MG TABLET (FP) PO SCH ×3 (05:19→21:04)
[2017-09-25] MEDS: hydrALAZINE HCL 50 MG TABLET (FP) PO SCH ×3 (05:20→21:05)
[2017-09-25 06:18] LABS: HEMATOCRIT 25.4 % (35.4-49); HEMOGLOBIN 8.6 GM/dL (11.7-16.9); MCH 29.7 pg (25.7-33.7); MCHC 33.9 g/dl (32.0-35.9); MEAN CELL VOLUME 87.7 fl (80-96); MEAN PLT VOLUME 7.3 fl (7.5-11.1); PLATELET COUNT 407 K/MM3 (134-434); RDW 14.6 % (11.9-15.9); WHITE BLOOD COUNT 6.6 K/mm3 (4.0-10.0)
[2017-09-25 06:53] LABS: ALBUMIN 2.5 g/dl (3.4-5.0); ALK PHOS 110 U/L (45-117); ANION GAP 5 (8-16); BILIRUBIN,TOTAL 0.3 mg/dL (0.2-1.0); BLOOD UREA NITROGEN 25 mg/dL (7-18); CALCIUM 8.6 mg/dL (8.5-10.1); CHLORIDE 101 mmol/L (98-107); CO2 33 mmol/L (21-32); CREATININE 6.9 mg/dL (0.7-1.3); GLUCOSE,RANDOM 97 mg/dL (74-106); PHOSPHOROUS 5.6 mg/dL (2.5-4.9); POTASSIUM 4.5 mmol/L (3.5-5.1); SGOT/AST 29 U/L (15-37); SGPT/ALT 47 U/L (12-78); SODIUM 139 mmol/L (136-145); TOT PROT 6.4 g/dl (6.4-8.2)
--- NOTE | 2017-09-25 09:38 | PN ---
Physical Exam: SUBJECTIVE: Patient seen and examined in the ICU. Pt OOB to chair earlier this morning, now resting in bed. Pt's mother at bedside. Pt remains afebrile. Pt removed Right hand peripheral IV access. Restraints renewed. OBJECTIVE: Vital Signs Period Temp Pulse Resp BP Sys/Mora Pulse Ox Last 24 Hr 98.4 F-99.1 F 89-99 14-21 128-159/64-110 98-98 GENERAL: Alert, awake, in NAD. LUNGS: CTAB. HEART: RRR, no murmurs appreciated. ABDOMEN: Soft, nontender, nondistended, no guarding. EXTREMITIES: Warm, well-perfused, no edema. NEUROLOGICAL: Cranial nerves II through XII grossly intact. No facial droop. Gait not observed. Laboratory Results - last 24 hr 09/25/17 09/25/17 05:55 05:55 WBC 6.6 RBC 2.90 L Hgb 8.6 L Hct 25.4 L MCV 87.7 MCH 29.7 MCHC 33.9 RDW 14.6 Plt Count 407 MPV 7.3 L Sodium 139 Potassium 4.5 Chloride 101 Carbon Dioxide 33 H Anion Gap 5 L BUN 25 H D Creatinine 6.9 H D Creat Clearance w eGFR 9.97 Random Glucose 97 Calcium 8.6 Phosphorus 5.6 H Magnesium 2.0 D Total Bilirubin 0.3 D AST 29 D ALT 47 Alkaline Phosphatase 110 Total Protein 6.4 Albumin 2.5 L Active Medications Generic Name Dose Route Start Last Admin Trade Name Freq PRN Reason Stop Dose Admin Acetaminophen 1,000 mg 09/24/17 19:19 Ofirmev Injection - IVPB Q6H PRN PAIN LEVEL 1-5 Amino Acids 30 ml 09/25/17 10:00 Prosource No Carb Liquid Pkt NGT DAILY LANE Diphenhydramine HCl 25 mg 09/24/17 19:19 Benadryl - PO Q6H PRN FOR ITCHING Docusate Sodium 100 mg 09/24/17 19:19 Colace Liquid - NGT Q8H PRN CONSTIPATION Heparin Sodium (Porcine) 5,000 unit 09/24/17 22:00 09/24/17 21:09 Heparin - SQ 5,[address] Administration Hydralazine HCl 100 mg 09/24/17 22:00 09/25/17 05:20 Apresoline - PO [address] Administration Hydralazine HCl 10 mg 09/24/17 19:19 Apresoline Injection - IVPUSH Q4H PRN HYPERTENSION Isosorbide Mononitrate 30 mg 09/24/17 22:00 09/24/17 21:09 Imdur - PO [address] Administration Labetalol HCl 200 mg 09/24/17 19:19 Normodyne - PO Q2H PRN HYPERTENSION Labetalol HCl 400 mg 09/24/17 22:00 09/25/17 05:19 Normodyne - PO [address] Administration Lacosamide 150 mg 09/24/17 11:57 09/24/17 21:09 Vimpat - PO [address] Administration Multivit/Ca Carb/B Cmplx/FA/Prenat 1 tablet 09/25/17 10:00 Nephro-Leatha - PO DAILY LANE Nifedipine 90 mg 09/24/17 22:00 09/24/17 21:09 Procardia Xl - PO [address] Administration Nystatin 1 applic 09/25/17 00:00 09/25/17 05:20 Mycostatin Cream - TP [address] Administration Sevelamer Carbonate 1,600 mg 09/25/17 08:00 Renvela - PO TIDCM LANE ASSESSMENT/PLAN: 22M with PMH of autism and seizure disorder, presents with severe htn, anemia, thrombocytopenia, leukocytosis, hyperkalemia, ANNA, admitted to ICU. # ANNA - Nephrology (Dr. Velasquez) recs appreciated: HD yesterday removed 2kg of fluid - renal biopsy to be done by IR in the OR once pt is cleared by anesthesia - vein mapping per Vascular Surgery (Dr. Kc) to evaluate basilic and cephalic veins for fistula placement - s/p permacath placement 09/10/17 - monitor Cr and UOP - continue Nephro-leatha and Renvela # htn urgency - continue Labetalol, Hydralazine, and Procardia - Imdur increased to BID - Cardiology (Dr. Morton) recs appreciated: deferring RAAS-blockers for now given ANNA with renal w/u ongoing - goal BP 120/80 # loculated Left pleural effusion - s/p Left VATS/pneumolysis on 09/17/[address] Ivy - resolved - both chest tubes removed - Ofirmev prn for pain control # severe sepsis 2/2 pneumonia - resolved - continue to observe off antibiotics # acute hypoxic respiratory failure - resolved - pt re-intubated for procedure 09/17/17 and extubated 09/18/17 (pt intubated and extubated 09/06/17) # anemia - pt s/p 4U PRBCs this hospitalization (with most recent unit on 09/10/17) - hgb stable - monitor for overt s/s of bleeding # seizure - continue Vimpat 150 BID # FEN - Fluids: po - Electrolytes: hyperphosphatemia noted - continue Renvela TID - Nutrition: renal diet with thin liquids, with Ensure chocolate pudding plus Prosource daily # Prophylaxis - DVT ppx with Heparin BID - deconiditioning ppx with PT # dispo - pt stable for transfer to [facility]-surg floor Visit type - Emergency Visit Emergency Visit: Yes ED Registration Date: 08/29/17 Care time: The patient presented to the Emergency Department on the above date and was hospitalized for further evaluation of their emergent condition. - New Patient This patient is new to me today: No - Critical Care Critical Care patient: Yes Total Critical Care Time (in minutes): 39 Critical Care Statement: The care of this patient involved high complexity decision making to prevent further life threatening deterioration of the patient 's condition and/or to evaluate & treat vital organ system(s) failure or risk of failure.
[2017-09-25] MEDS: NIFEdipine E.R. 90 MG TABLET (FP) PO SCH ×2 (09:52→21:04)
[2017-09-25] MEDS: ISOSORBIDE MONONITRATE 30 MG TAB.SR.24H (FP) PO SCH ×2 (09:52→21:04)
[2017-09-25] MEDS: VITAMIN B COMP W-C 1 EA TABLET PO SCH (09:53)
[2017-09-25] MEDS: SEVELAMER CARBONATE 800 MG TAB (FP) PO SCH ×3 (09:53→18:19)
[2017-09-25] MEDS: AMINO ACIDS/PROTEIN HYDROLYS 30 ML LIQUID.PKT NGT SCH (09:54)
[2017-09-25] MEDS: LACOSAMIDE 50 MG TABLET PO SCH ×2 (09:54→21:04)
[2017-09-25] MEDS: HEPARIN NA (PORCINE) 5,000 UNITS/ML 1ML VIAL SQ SCH ×2 (09:54→21:04)
--- NOTE | 2017-09-25 12:37 | PN ---
Teaching Attending Note Name of Resident: Delilah Mathis ATTENDING PHYSICIAN STATEMENT I saw and evaluated the patient. I reviewed the resident's note and discussed the case with the resident. I agree with the resident's findings and plan as documented. SUBJECTIVE: Patient seen and examined in the ICU. No events overnight. OBJECTIVE: Intake & Output 09/22/17 09/23/17 09/24/17 09/25/17 23:59 23:59 23:59 23:59 Intake Total 1320 700 880 240 Balance 1320 700 880 240 Weight 167 lb 1.766 oz 166 lb 0.129 oz 168 lb 3.2 oz 167 lb 14.4 oz Last Vital Signs Temp Pulse Resp BP Pulse Ox 98.5 F 90 17 97/63 96 09/25/17 06:00 09/25/17 10:00 09/25/17 10:00 09/25/17 10:00 09/25/17 10:00 Active Medications Acetaminophen (Ofirmev Injection -) 1,000 mg IVPB Q6H PRN PRN Reason: PAIN LEVEL 1-5 Amino Acids (Prosource No Carb Liquid Pkt) 30 ml NGT DAILY [facility] Last Admin: 09/25/17 09:54 Dose: 30 ml Diphenhydramine HCl (Benadryl -) 25 mg PO Q6H PRN PRN Reason: FOR ITCHING Docusate Sodium (Colace Liquid -) 100 mg NGT Q8H PRN PRN Reason: CONSTIPATION Heparin Sodium (Porcine) (Heparin -) 5,000 unit SQ BID [facility] Last Admin: 09/25/17 09:54 Dose: 5,000 unit Hydralazine HCl (Apresoline -) 100 mg PO TID [facility] Last Admin: 09/25/17 05:20 Dose: 100 mg Hydralazine HCl (Apresoline Injection -) 10 mg IVPUSH Q4H PRN PRN Reason: HYPERTENSION Isosorbide Mononitrate (Imdur -) 30 mg PO BID [facility] Last Admin: 09/25/17 09:52 Dose: 30 mg Labetalol HCl (Normodyne -) 200 mg PO Q2H PRN PRN Reason: HYPERTENSION Labetalol HCl (Normodyne -) 400 mg PO TID [facility] Last Admin: 09/25/17 05:19 Dose: 400 mg Lacosamide (Vimpat -) 150 mg PO BID [facility] Last Admin: 09/25/17 09:54 Dose: 150 mg Multivit/Ca Carb/B Cmplx/FA/Prenat (Nephro-Claudia -) 1 tablet PO DAILY [facility] Last Admin: 09/25/17 09:53 Dose: 1 tablet Nifedipine (Procardia Xl -) 90 mg PO BID [facility] Last Admin: 09/25/17 09:52 Dose: 90 mg Nystatin (Mycostatin Cream -) 1 applic TP Q6HPO [facility] Last Admin: 09/25/17 05:20 Dose: 1 applic Sevelamer Carbonate (Renvela -) 1,600 mg PO TIDCM [facility] Last Admin: 09/25/17 09:53 Dose: 1,600 mg Gen: NAD at rest Heart: RRR Lung: decreased breath sounds at the bases Abd: soft, nontender Ext: no edema Laboratory Results - last 24 hr 09/25/17 09/25/17 05:55 05:55 WBC 6.6 RBC 2.90 L Hgb 8.6 L Hct 25.4 L MCV 87.7 MCH 29.7 MCHC 33.9 RDW 14.6 Plt Count 407 MPV 7.3 L Sodium 139 Potassium 4.5 Chloride 101 Carbon Dioxide 33 H Anion Gap 5 L BUN 25 H D Creatinine 6.9 H D Creat Clearance w eGFR 9.97 Random Glucose 97 Calcium 8.6 Phosphorus 5.6 H Magnesium 2.0 D Total Bilirubin 0.3 D AST 29 D ALT 47 Alkaline Phosphatase 110 Total Protein 6.4 Albumin 2.5 L ASSESSMENT AND PLAN: Hypertensive Urgency resolved Acute Kidney Injury requiring HD Acute Hypoxic Respiratory Failure resolved Pneumonia Loculated Pleural Effusion s/p L VATS/pneumolysis Severe Sepsis resolved Lactic Acidosis resolved Thrombocytopenia improved Anemia Autism - monitoring off antibiotics - pain control - HD per renal - monitor H/H - monitor urine output, creatinine - renal biopsy when stable - BP control - taper Fio2 to keep Spo2 >90% - PO as tolerated - rehab/PT - DVT/GI prophylaxis - For Renal biopsy in OR under [facility], there is no Pulmonary contraindication for anesthesia/OR Dr Isidro Critical care time spent in reviewing chart, evaluating patient and formulating plan - 36 minutes.
--- NOTE | 2017-09-25 13:53 | PN ---
Progress Note (short form) - Note Progress Note: CC: htn urgency S: non-verbal. appears comfortable. sitting in chair. imdur increased to bid yesterday. o: Current Medications Acetaminophen (Ofirmev Injection -) 1,000 mg IVPB Q6H PRN PRN Reason: PAIN LEVEL 1-5 Amino Acids (Prosource No Carb Liquid Pkt) 30 ml NGT DAILY [facility] Last Admin: 09/25/17 09:54 Dose: 30 ml Diphenhydramine HCl (Benadryl -) 25 mg PO Q6H PRN PRN Reason: FOR ITCHING Docusate Sodium (Colace Liquid -) 100 mg NGT Q8H PRN PRN Reason: CONSTIPATION Heparin Sodium (Porcine) (Heparin -) 5,000 unit SQ BID [facility] Last Admin: 09/25/17 09:54 Dose: 5,000 unit Hydralazine HCl (Apresoline -) 100 mg PO TID [facility] Last Admin: 09/25/17 05:20 Dose: 100 mg Hydralazine HCl (Apresoline Injection -) 10 mg IVPUSH Q4H PRN PRN Reason: HYPERTENSION Isosorbide Mononitrate (Imdur -) 30 mg PO BID [facility] Last Admin: 09/25/17 09:52 Dose: 30 mg Labetalol HCl (Normodyne -) 200 mg PO Q2H PRN PRN Reason: HYPERTENSION Labetalol HCl (Normodyne -) 400 mg PO TID [facility] Last Admin: 09/25/17 05:19 Dose: 400 mg Lacosamide (Vimpat -) 150 mg PO BID [facility] Last Admin: 09/25/17 09:54 Dose: 150 mg Multivit/Ca Carb/B Cmplx/FA/Prenat (Nephro-Claudia -) 1 tablet PO DAILY [facility] Last Admin: 09/25/17 09:53 Dose: 1 tablet Nifedipine (Procardia Xl -) 90 mg PO BID [facility] Last Admin: 09/25/17 09:52 Dose: 90 mg Nystatin (Mycostatin Cream -) 1 applic TP Q6HPO [facility] Last Admin: 09/25/17 05:20 Dose: 1 applic Sevelamer Carbonate (Renvela -) 1,600 mg PO TIDCM [facility] Last Admin: 09/25/17 09:53 Dose: 1,600 mg Vital Signs - 24 hr 09/24/17 09/24/17 09/24/17 14:00 16:00 18:00 Temperature 99.1 F 98.9 F Pulse Rate 93 H 89 90 Respiratory 16 16 21 Rate Blood Pressure 159/93 143/75 140/101 O2 Sat by Pulse Oximetry (%) 09/24/17 09/24/17 09/24/17 20:00 21:00 22:00 Temperature 98.7 F Pulse Rate 99 H 96 H Respiratory 15 15 17 Rate Blood Pressure 149/78 128/68 O2 Sat by Pulse 98 98 Oximetry (%) 09/25/17 09/25/17 09/25/17 00:00 02:00 04:00 Temperature 98.4 F Pulse Rate 92 H 94 H 91 H Respiratory 14 15 17 Rate Blood Pressure 128/64 137/83 139/88 O2 Sat by Pulse Oximetry (%) 09/25/17 09/25/17 09/25/17 06:00 08:00 09:00 Temperature 98.5 F Pulse Rate 89 90 Respiratory 17 17 17 Rate Blood Pressure 148/99 97/63 O2 Sat by Pulse 96 Oximetry (%) 09/25/17 09/25/17 10:00 12:00 Temperature 98.7 F Pulse Rate 92 H 92 H Respiratory 18 17 Rate Blood Pressure 144/76 154/84 O2 Sat by Pulse 96 Oximetry (%) Intake & Output 09/23/17 09/24/17 09/25/17 09/26/17 07:59 07:59 07:59 07:59 Intake Total 0821 263 9113 Balance 1367 176 9556 Weight 166 lb 0.129 oz 168 lb 3.2 oz 167 lb 14.4 oz nad, calm no jvd rrr s1 s2 no mrg ctab, poor effort. + bs soft nt nd. no jaundice diaphoresis no le e/c/c + dp/pt abd nd pos bs CBC, BMP 09/25/17 05:55 09/25/17 05:55 echo 08/2017: nl lv/rv, no sig valve path tele: SR a/p: 22 m hx autism, seizures, possible underlying ckd/htn here with ams, respiratory failure/sepsis, anna requiring HD and hypertensive urgency. Cardiac course complicated by mild troponin elevation and prolonged qtc. 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 was uncontrolled when here 12/11 for seizure, with agitation then--no BP checked since that discharge she says -has had difficult to control BP here, requiring nifedipine and labetalol drips (the latter up to 2mg/min, i.e. 2800 mg/day, without good bp control) 09/14: increased hydralzine to 100 tid and add imdur 30 qd -09/15: BP severely elevated again this am (220/100). change nifedip 120 qd to 90 bid to cover overnight/early AM bp's (very short-acting med). change coreg to labetalol 400 TID for greater potency (with prn PO doses ordered), will likely need closer to 600-800 TID labetlol, will titrate up as needed -BP much improved, continue current regimen (nifedipine 90 bid, hydral 100 tid, labetalol 400 TID, imdur 30). try to cut down nifedipine dose (to 60 bid) +/- hydralazine dose later, if bp remains well controlled. - 09/18: bp meds mostly held yesterday and this morning due to surgery, intubation etc. bp remains overall well controlled. con't to monitor. -09/19-09/23: bp overall improved, cont current meds - 09/24: bp overal improved, but still with intermittent sbp's in the 150's. -- > will increase imdur to bid dosing. - 09/25 bp controlled, con't same regimen. -deferring RAAS-blockers for now given ANNA with renal w/u ongoing anna requiring HD: -creat 2.1 here in november, ? no prior w/u per mother -suspect hypertensive renal failure, progressive since then, though possible causality in other direction (no MD f/u since november, per mother) -renal eval in progress, planned for biopsy - getting HD here abnormal troponins - flat trend, with intermediate range values - secondary to sepsis myocardial injury, vs demand ischemia (severe HTN, with tachycardia to 120s-130s). no clinical findings to support acs here. anemia: -chronic, mgm't per primary team respiratory failure s/p intubation, pleural effusion - with white out of left lung - 09/04 s/p chest tube placement. - plan per critical care/thoracic surgery--s/p Bronchoscopy, left VATS, drainage of effusion, pneumolysis 09/17. now with chest tube x 2. - 09/20 one chest tube removed. - 09/21 second chest tube removed.
--- NOTE | 2017-09-25 14:42 | PN ---
Progress Note, Physician History of Present Illness: Pt seen and examined at bedside. He is awake and appears comfortable. - Current Medication List Current Medications: Active Medications Acetaminophen (Ofirmev Injection -) 1,000 mg IVPB Q6H PRN PRN Reason: PAIN LEVEL 1-5 Amino Acids (Prosource No Carb Liquid Pkt) 30 ml NGT DAILY [facility] Last Admin: 09/25/17 09:54 Dose: 30 ml Diphenhydramine HCl (Benadryl -) 25 mg PO Q6H PRN PRN Reason: FOR ITCHING Docusate Sodium (Colace Liquid -) 100 mg NGT Q8H PRN PRN Reason: CONSTIPATION Heparin Sodium (Porcine) (Heparin -) 5,000 unit SQ BID [facility] Last Admin: 09/25/17 09:54 Dose: 5,000 unit Hydralazine HCl (Apresoline -) 100 mg PO TID [facility] Last Admin: 09/25/17 05:20 Dose: 100 mg Hydralazine HCl (Apresoline Injection -) 10 mg IVPUSH Q4H PRN PRN Reason: HYPERTENSION Isosorbide Mononitrate (Imdur -) 30 mg PO BID [facility] Last Admin: 09/25/17 09:52 Dose: 30 mg Labetalol HCl (Normodyne -) 200 mg PO Q2H PRN PRN Reason: HYPERTENSION Labetalol HCl (Normodyne -) 400 mg PO TID [facility] Last Admin: 09/25/17 05:19 Dose: 400 mg Lacosamide (Vimpat -) 150 mg PO BID [facility] Last Admin: 09/25/17 09:54 Dose: 150 mg Multivit/Ca Carb/B Cmplx/FA/Prenat (Nephro-Claudia -) 1 tablet PO DAILY [facility] Last Admin: 09/25/17 09:53 Dose: 1 tablet Nifedipine (Procardia Xl -) 90 mg PO BID [facility] Last Admin: 09/25/17 09:52 Dose: 90 mg Nystatin (Mycostatin Cream -) 1 applic TP Q6HPO [facility] Last Admin: 09/25/17 05:20 Dose: 1 applic Sevelamer Carbonate (Renvela -) 1,600 mg PO TIDCM [facility] Last Admin: 09/25/17 09:53 Dose: 1,600 mg - Objective Vital Signs: Vital Signs Temperature 98.7 F 09/25/17 10:00 Pulse Rate 92 H 09/25/17 12:00 Respiratory Rate 17 09/25/17 12:00 Blood Pressure 154/84 09/25/17 12:00 O2 Sat by Pulse Oximetry (%) 96 09/25/17 10:00 Constitutional: Yes: Calm Eyes: Yes: Conjunctiva Clear HENT: Yes: Atraumatic Neck: Yes: Supple Cardiovascular: Yes: S1, S2 Respiratory: Yes: CTA Bilaterally Gastrointestinal: Yes: Normal Bowel Sounds, Soft Genitourinary: Yes: Incontinence Musculoskeletal: Yes: WNL Edema: No Integumentary: Yes: WNL Neurological: Yes: Pre-Existing Deficit Labs: CBC, BMP 09/25/17 05:55 09/25/17 05:55 INR, PTT INR 1.03 (0.82-1.09) 09/17/17 06:45 Fibrinogen 558.0 mg/dL (238-498) H 09/17/17 06:45 Problem List - Problems (1) Acute renal failure Code(s): N17.9 - ACUTE KIDNEY FAILURE, UNSPECIFIED Qualifiers: Acute renal failure type: unspecified Qualified Code(s): N17.9 - Acute kidney failure, unspecified (2) Anemia Code(s): D64.9 - ANEMIA, UNSPECIFIED (3) Hyperkalemia Code(s): E87.5 - HYPERKALEMIA (4) Hypertensive urgency Code(s): I16.0 - HYPERTENSIVE URGENCY (5) Sepsis Code(s): A41.9 - SEPSIS, UNSPECIFIED ORGANISM Qualifiers: Sepsis type: sepsis due to unspecified organism Qualified Code(s): A41.9 - Sepsis, unspecified organism (6) Thrombocytopenia Code(s): D69.6 - THROMBOCYTOPENIA, UNSPECIFIED (7) Seizure Code(s): R56.9 - UNSPECIFIED CONVULSIONS Assessment/Plan Current Medications Generic Name Dose Route Start Last Admin Trade Name Freq PRN Reason Stop Dose Admin Acetaminophen 1,000 mg 09/24/17 19:19 Ofirmev Injection - IVPB Q6H PRN PAIN LEVEL 1-5 Amino Acids 30 ml 09/25/17 10:00 09/25/17 09:54 Prosource No Carb Liquid Pkt NGT [address] Administration Diphenhydramine HCl 25 mg 09/24/17 19:19 Benadryl - PO Q6H PRN FOR ITCHING Docusate Sodium 100 mg 09/24/17 19:19 Colace Liquid - NGT Q8H PRN CONSTIPATION Heparin Sodium (Porcine) 5,000 unit 09/24/17 22:00 09/25/17 09:54 Heparin - SQ 5,[address] Administration Hydralazine HCl 100 mg 09/24/17 22:00 09/25/17 05:20 Apresoline - PO [address] Administration Hydralazine HCl 10 mg 09/24/17 19:19 Apresoline Injection - IVPUSH Q4H PRN HYPERTENSION Isosorbide Mononitrate 30 mg 09/24/17 22:00 09/25/17 09:52 Imdur - PO [address] Administration Labetalol HCl 200 mg 09/24/17 19:19 Normodyne - PO Q2H PRN HYPERTENSION Labetalol HCl 400 mg 09/24/17 22:00 09/25/17 05:19 Normodyne - PO [address] Administration Lacosamide 150 mg 09/24/17 11:57 09/25/17 09:54 Vimpat - PO [address] Administration Multivit/Ca Carb/B Cmplx/FA/Prenat 1 tablet 09/25/17 10:00 09/25/17 09:53 Nephro-Claudia - PO [address] Administration Nifedipine 90 mg 09/24/17 22:00 09/25/17 09:52 Procardia Xl - PO [address] Administration Nystatin 1 applic 09/25/17 00:00 09/25/17 05:20 Mycostatin Cream - TP [address] Administration Sevelamer Carbonate 1,600 mg 09/25/17 08:00 09/25/17 09:53 Renvela - PO 1,[address] Administration Impression 1. ANNA 2. HTN urgency/emergency 3. hyperkalemia 4. hyponatremia 5. autism 6. hx of seizure 7. anemia 8. CKD 9. lactic acidosis improving 10. thrombocytopenia 11. hyperkalemia 12. pleural effusion 13. acute resp failure requiring intubation 14. ESRD Plan - HD in am - called vascular, will get vein mapping for fistula - IR for kidney biopsy - discussed plan with pt's mother - renal diet - neuro follow up for AED - get cxr to [facility] Dr Velasquez
--- NOTE | 2017-09-25 15:39 | PN ---
Physical Exam: SUBJECTIVE: Patient seen and examined. He appears calm, no acute distress. Tried to pull permacath yesterday. Mother at bedside. OBJECTIVE: Vital Signs Period Temp Pulse Resp BP Sys/Mora Pulse Ox Last 24 Hr 98.4 F-98.9 F 89-99 14-21 97-154/63-101 96-98 PE Neuro: awake, alert, NAD Pulm: diminished at bases, no rhonchi CV: s1 s2 rrr Abd: s nt nd +bs Ext: pedal edema +1 Access: RCW permacath Laboratory Results - last 24 hr 09/25/17 09/25/17 05:55 05:55 WBC 6.6 RBC 2.90 L Hgb 8.6 L Hct 25.4 L MCV 87.7 MCH 29.7 MCHC 33.9 RDW 14.6 Plt Count 407 MPV 7.3 L Sodium 139 Potassium 4.5 Chloride 101 Carbon Dioxide 33 H Anion Gap 5 L BUN 25 H D Creatinine 6.9 H D Creat Clearance w eGFR 9.97 Random Glucose 97 Calcium 8.6 Phosphorus 5.6 H Magnesium 2.0 D Total Bilirubin 0.3 D AST 29 D ALT 47 Alkaline Phosphatase 110 Total Protein 6.4 Albumin 2.5 L Active Medications Generic Name Dose Route Start Last Admin Trade Name Freq PRN Reason Stop Dose Admin Acetaminophen 1,000 mg 09/24/17 19:19 Ofirmev Injection - IVPB Q6H PRN PAIN LEVEL 1-5 Amino Acids 30 ml 09/25/17 10:00 09/25/17 09:54 Prosource No Carb Liquid Pkt NGT [address] Administration Diphenhydramine HCl 25 mg 09/24/17 19:19 Benadryl - PO Q6H PRN FOR ITCHING Docusate Sodium 100 mg 09/24/17 19:19 Colace Liquid - NGT Q8H PRN CONSTIPATION Epoetin Mir 6,000 unit 09/26/17 14:43 Epogen - IVPUSH 09/26/17 14:44 ONCE ONE Heparin Sodium (Porcine) 5,000 unit 09/24/17 22:00 09/25/17 09:54 Heparin - SQ 5,[address] Administration Hydralazine HCl 100 mg 09/24/17 22:00 09/25/17 15:18 Apresoline - PO [address] Administration Hydralazine HCl 10 mg 09/24/17 19:19 Apresoline Injection - IVPUSH Q4H PRN HYPERTENSION Sodium Chloride 250 mls @ 3,000 mls/hr 09/25/17 14:43 Normal Saline - IV 09/26/17 14:43 PRN PRN Hypotension during Dialysis Isosorbide Mononitrate 30 mg 09/24/17 22:00 09/25/17 09:52 Imdur - PO [address] Administration Labetalol HCl 200 mg 09/24/17 19:19 Normodyne - PO Q2H PRN HYPERTENSION Labetalol HCl 400 mg 09/24/17 22:00 09/25/17 15:18 Normodyne - PO [address] Administration Lacosamide 150 mg 09/24/17 11:57 09/25/17 09:54 Vimpat - PO [address] Administration Multivit/Ca Carb/B Cmplx/FA/Prenat 1 tablet 09/25/17 10:00 09/25/17 09:53 Nephro-Claudia - PO [address] Administration Nifedipine 90 mg 09/24/17 22:00 09/25/17 09:52 Procardia Xl - PO [address] Administration Nystatin 1 applic 09/25/17 00:00 09/25/17 13:00 Mycostatin Cream - TP [address] Administration Sevelamer Carbonate 1,600 mg 09/25/17 08:00 09/25/17 15:18 Renvela - PO 1,[address] Administration Assessment: 22 year old male with PMHx of HTN, autism, epilepsy, who presented to the ED with diarrhea and increased dyspnea and was found to have hypertensive emergency, ANNA, pneumonia with a complicated hospital course including acute respiratory failure requiring intubation and a persistent left pleural effusion, s/p thoracentesis 09/02, s/p pigtail 09/04, then requiring vats and pneumolysis on 09/17 with chest tubes, now pulled. Plan: 1. Acute hypoxic respiratory failure, large left pleural effusion - Improved, stable on RA - S/p bronchoscopy/left VATS/drainage of effusion/pneumolysis 09/17 2. Severe sepsis 2/2 pneumonia - Afebrile off abx 3. ANNA, ESRD - HD tomorrow - Fistula before discharge from hospital, vascular to obtain vein mapping - For kidney biopsy to be scheduled by nephrology 4. Hypertensive emergency - BP improved - Continue Hydralazine - Continue Imdur - Continue Labetolol - Continue Procardia Xl 5. Epilepsy - Discussed with neurology, maintain vimpat 150mg BID, on HD days give AM dose of vimpat after HD - Increased Vimpat 150mg BID 6. Ppx - Heparin 5,000u sq bid - PT CODE STATUS: FULL CODE Visit type - Emergency Visit Emergency Visit: Yes ED Registration Date: 08/29/17 Care time: The patient presented to the Emergency Department on the above date and was hospitalized for further evaluation of their emergent condition. - New Patient This patient is new to me today: No - Critical Care Critical Care patient: No
[2017-09-26] MEDS: NYSTATIN 100,000 UNIT/GM TOPICAL CREAM 15 GM TUBE TP SCH ×4 (00:01→17:20)
[2017-09-26] MEDS: hydrALAZINE HCL 50 MG TABLET (FP) PO SCH ×3 (05:08→22:35)
[2017-09-26] MEDS: LABETALOL HCL 200 MG TABLET (FP) PO SCH ×3 (05:09→22:37)
[2017-09-26 06:01] LABS: HEMATOCRIT 25.1 % (35.4-49); HEMOGLOBIN 8.4 GM/dL (11.7-16.9); MCH 29.6 pg (25.7-33.7); MCHC 33.7 g/dl (32.0-35.9); MEAN PLT VOLUME 7.5 fl (7.5-11.1); PLATELET COUNT 412 K/MM3 (134-434); RBC 2.85 M/mm3 (4.00-5.60); WHITE BLOOD COUNT 6.3 K/mm3 (4.0-10.0)
[2017-09-26 06:25] LABS: INR 0.93 (0.82-1.09); PROTHROMBIN TIME (PATIENT) 10.5 SEC (9.7-13.0)
[2017-09-26 06:28] LABS: ACTIVATED PTT 30.4 SECONDS (26.9-34.4)
[2017-09-26 06:38] LABS: ANION GAP 11 (8-16); BLOOD UREA NITROGEN 37 mg/dL (7-18); CALCIUM 8.8 mg/dL (8.5-10.1); CHLORIDE 97 mmol/L (98-107); CO2 29 mmol/L (21-32); GLUCOSE,RANDOM 80 mg/dL (74-106); MAGNESIUM 2.2 mg/dL (1.8-2.4); POTASSIUM 4.5 mmol/L (3.5-5.1); SODIUM 137 mmol/L (136-145)
[2017-09-26 06:47] LABS: PHOSPHOROUS 5.7 mg/dL (2.5-4.9)
[2017-09-26] MEDS: SEVELAMER CARBONATE 800 MG TAB (FP) PO SCH ×3 (08:07→17:04)
[2017-09-26 08:38] LABS: CREATININE 9.4 mg/dL (0.7-1.3)
[2017-09-26] MEDS ORDERED: SODIUM CHLORIDE 250 ML IV PRN (10:00)
[2017-09-26] MEDS: LACOSAMIDE 50 MG TABLET PO SCH ×3 (10:25→22:36)
[2017-09-26] MEDS: AMINO ACIDS/PROTEIN HYDROLYS 30 ML LIQUID.PKT NGT SCH (10:26)
[2017-09-26] MEDS: NIFEdipine E.R. 90 MG TABLET (FP) PO SCH ×2 (10:26→22:35)
[2017-09-26] MEDS: VITAMIN B COMP W-C 1 EA TABLET PO SCH (10:26)
[2017-09-26] MEDS: ISOSORBIDE MONONITRATE 30 MG TAB.SR.24H (FP) PO SCH ×2 (10:26→22:36)
[2017-09-26] MEDS ORDERED: EPOETIN ALFA 3,000 UNIT/1 ML ML IVPUSH ONE (10:45)
--- NOTE | 2017-09-26 10:47 | PN ---
Progress Note, [employer] - Note Progress Note: Selected Entries 09/25/17 09/25/17 09/25/17 02:00 06:00 10:00 Breakfast Temperature 98.4 F 98.5 F 98.7 F 09/25/17 09/25/17 09/25/17 11:53 14:00 19:00 Breakfast 100% Temperature 99 F 98.6 F 09/25/17 09/25/17 09/26/17 20:43 22:00 02:00 Breakfast Temperature 98.4 F 98.9 F 98.6 F 09/26/17 06:00 Breakfast Temperature 98.7 F Pt upgraded to Renal diet/thin liquid. Pt tolerating diet with signs or symptoms of dysphagia. No further f/u indicated.
--- NOTE | 2017-09-26 10:54 | PN ---
Physical Exam: SUBJECTIVE: Patient seen and examined. He is awake, NAD or new events overnight. OBJECTIVE: Vital Signs Period Temp Pulse Resp BP Sys/Mora Pulse Ox Last 24 Hr 98.4 F-99 F 90-100 16-23 126-160/58-105 96-96 PE Neuro: awake, alert, NAD Pulm: CV: s1 s2 rrr no mrg Abd: s nt nd +bs Ext: warm, no le edema Access: RCW permacath Laboratory Results - last 24 hr 09/26/17 09/26/17 09/26/17 05:40 05:40 05:40 WBC 6.3 RBC 2.85 L Hgb 8.4 L Hct 25.1 L MCV 88.0 MCH 29.6 MCHC 33.7 RDW 15.0 Plt Count 412 MPV 7.5 PT with INR 10.50 INR 0.93 PTT (Actin FS) 30.4 Sodium 137 Potassium 4.5 Chloride 97 L Carbon Dioxide 29 Anion Gap 11 BUN 37 H D Creatinine 9.4 H* D Random Glucose 80 Calcium 8.8 Phosphorus 5.7 H Magnesium 2.2 Active Medications Generic Name Dose Route Start Last Admin Trade Name Freq PRN Reason Stop Dose Admin Acetaminophen 1,000 mg 09/24/17 19:19 Ofirmev Injection - IVPB Q6H PRN PAIN LEVEL 1-5 Amino Acids 30 ml 09/25/17 10:00 09/26/17 10:26 Prosource No Carb Liquid Pkt NGT [address] Administration Diphenhydramine HCl 25 mg 09/24/17 19:19 Benadryl - PO Q6H PRN FOR ITCHING Docusate Sodium 100 mg 09/24/17 19:19 Colace Liquid - NGT Q8H PRN CONSTIPATION Heparin Sodium (Porcine) 5,000 unit 09/24/17 22:00 09/25/17 21:04 Heparin - SQ 5,[address] Administration Hydralazine HCl 100 mg 09/24/17 22:00 09/26/17 05:08 Apresoline - PO [address] Administration Hydralazine HCl 10 mg 09/24/17 19:19 Apresoline Injection - IVPUSH Q4H PRN HYPERTENSION Isosorbide Mononitrate 30 mg 09/24/17 22:00 09/26/17 10:26 Imdur - PO [address] Administration Labetalol HCl 200 mg 09/24/17 19:19 Normodyne - PO Q2H PRN HYPERTENSION Labetalol HCl 400 mg 09/24/17 22:00 09/26/17 05:09 Normodyne - PO [address] Administration Lacosamide 150 mg 09/24/17 11:57 09/26/17 10:25 Vimpat - PO [address] Administration Lacosamide 75 mg 09/26/17 15:00 Vimpat - PO MOWEFR LANE Multivit/Ca Carb/B Cmplx/FA/Prenat 1 tablet 09/25/17 10:00 09/26/17 10:26 Nephro-Claudia - PO [address] Administration Nifedipine 90 mg 09/24/17 22:00 09/26/17 10:26 Procardia Xl - PO [address] Administration Nystatin 1 applic 09/25/17 00:00 09/26/17 05:09 Mycostatin Cream - TP [address] Administration Sevelamer Carbonate 1,600 mg 09/25/17 08:00 09/26/17 08:07 Renvela - PO Not Given TIDCM LANE Assessment: 22 year old male with PMHx of HTN, autism, epilepsy, who presented to the ED with diarrhea and increased dyspnea and was found to have hypertensive emergency, ANNA, pneumonia with a complicated hospital course including acute respiratory failure requiring intubation and a persistent left pleural effusion, s/p thoracentesis 09/02, s/p pigtail 09/04, then requiring vats and pneumolysis on 09/17 with chest tubes, now pulled. Plan: 1. Acute hypoxic respiratory failure, large left pleural effusion - Improved, stable on RA - S/p bronchoscopy/left VATS/drainage of effusion/pneumolysis 09/17 2. Severe sepsis 2/2 pneumonia - Afebrile off abx 3. ANNA, ESRD - HD today - Fistula before discharge from hospital, vascular to obtain vein mapping - For kidney biopsy to be scheduled by nephrology, possibly this / Sunday with IR 4. Hypertensive emergency - BP improved - Continue Hydralazine - Continue Imdur - Continue Labetolol - Continue Procardia Xl 5. Epilepsy - On day of dialysis pt to receive additional 75mg after HD - Continue increased Vimpat 150mg BID 6. Ppx - Heparin 5,000u sq bid CODE STATUS: FULL CODE Visit type - Emergency Visit Emergency Visit: Yes ED Registration Date: 08/29/17 Care time: The patient presented to the Emergency Department on the above date and was hospitalized for further evaluation of their emergent condition. - New Patient This patient is new to me today: No - Critical Care Critical Care patient: No
--- NOTE | 2017-09-26 11:26 | PN ---
Teaching Attending Note Name of Resident: Delilah Mathis ATTENDING PHYSICIAN STATEMENT I saw and evaluated the patient. I reviewed the resident's note and discussed the case with the resident. I agree with the resident's findings and plan as documented. SUBJECTIVE: Pt seen and examined in the ICU. No overnight events. Ambulated yesterday. OBJECTIVE: Last Vital Signs Temp Pulse Resp BP Pulse Ox 98.7 F 98 H 18 173/97 96 09/26/17 06:00 09/26/17 10:50 09/26/17 10:50 09/26/17 10:50 09/25/17 22:00 Intake & Output 09/23/17 09/24/17 09/25/17 09/26/17 23:59 23:59 23:59 23:59 Intake Total 912 262 2288 60 Balance 904 427 6792 60 Weight 75.3 kg 76.294 kg 76.158 kg 77.428 kg Gen: NAD at rest Heart: RRR Lung: decreased breath sounds at the bases Abd: soft, nontender Ext: no edema CBC, BMP 09/26/17 05:40 09/26/17 05:40 Active Medications Acetaminophen (Ofirmev Injection -) 1,000 mg IVPB Q6H PRN PRN Reason: PAIN LEVEL 1-5 Amino Acids (Prosource No Carb Liquid Pkt) 30 ml NGT DAILY [facility] Last Admin: 09/26/17 10:26 Dose: 30 ml Diphenhydramine HCl (Benadryl -) 25 mg PO Q6H PRN PRN Reason: FOR ITCHING Docusate Sodium (Colace Liquid -) 100 mg NGT Q8H PRN PRN Reason: CONSTIPATION Heparin Sodium (Porcine) (Heparin -) 5,000 unit SQ BID [facility] Last Admin: 09/25/17 21:04 Dose: 5,000 unit Hydralazine HCl (Apresoline -) 100 mg PO TID [facility] Last Admin: 09/26/17 05:08 Dose: 100 mg Hydralazine HCl (Apresoline Injection -) 10 mg IVPUSH Q4H PRN PRN Reason: HYPERTENSION Isosorbide Mononitrate (Imdur -) 30 mg PO BID [facility] Last Admin: 09/26/17 10:26 Dose: 30 mg Labetalol HCl (Normodyne -) 200 mg PO Q2H PRN PRN Reason: HYPERTENSION Labetalol HCl (Normodyne -) 400 mg PO TID [facility] Last Admin: 09/26/17 05:09 Dose: 400 mg Lacosamide (Vimpat -) 150 mg PO BID [facility] Last Admin: 09/26/17 10:25 Dose: 150 mg Lacosamide (Vimpat -) 75 mg PO MOWEFR [facility] Multivit/Ca Carb/B Cmplx/FA/Prenat (Nephro-Claudia -) 1 tablet PO DAILY [facility] Last Admin: 09/26/17 10:26 Dose: 1 tablet Nifedipine (Procardia Xl -) 90 mg PO BID [facility] Last Admin: 09/26/17 10:26 Dose: 90 mg Nystatin (Mycostatin Cream -) 1 applic TP Q6HPO [facility] Last Admin: 09/26/17 05:09 Dose: 1 applic Sevelamer Carbonate (Renvela -) 1,600 mg PO TIDCM [facility] Last Admin: 09/26/17 08:07 Dose: Not Given ASSESSMENT AND PLAN: Hypertensive Urgency resolved Acute Kidney Injury requiring HD Acute Hypoxic Respiratory Failure resolved Pneumonia Loculated Pleural Effusion s/p L VATS/pneumolysis Severe Sepsis resolved Lactic Acidosis resolved Thrombocytopenia improved Anemia Autism - monitoring off antibiotics - pain control - HD per renal - monitor H/H - monitor urine output, creatinine - for renal biopsy - BP control - taper Fio2 to keep Spo2 >90% - PO as tolerated - rehab/PT - DVT/GI prophylaxis - can transfer to floor
--- NOTE | 2017-09-26 13:29 | PN ---
Progress Note, Physician History of Present Illness: Pt seen and examined at bedside. He is currently getting HD. He appears comfortable. - Current Medication List Current Medications: Active Medications Acetaminophen (Ofirmev Injection -) 1,000 mg IVPB Q6H PRN PRN Reason: PAIN LEVEL 1-5 Amino Acids (Prosource No Carb Liquid Pkt) 30 ml NGT DAILY [facility] Last Admin: 09/26/17 10:26 Dose: 30 ml Diphenhydramine HCl (Benadryl -) 25 mg PO Q6H PRN PRN Reason: FOR ITCHING Docusate Sodium (Colace Liquid -) 100 mg NGT Q8H PRN PRN Reason: CONSTIPATION Hydralazine HCl (Apresoline -) 100 mg PO TID [facility] Last Admin: 09/26/17 05:08 Dose: 100 mg Hydralazine HCl (Apresoline Injection -) 10 mg IVPUSH Q4H PRN PRN Reason: HYPERTENSION Isosorbide Mononitrate (Imdur -) 30 mg PO BID [facility] Last Admin: 09/26/17 10:26 Dose: 30 mg Labetalol HCl (Normodyne -) 200 mg PO Q2H PRN PRN Reason: HYPERTENSION Labetalol HCl (Normodyne -) 400 mg PO TID [facility] Last Admin: 09/26/17 05:09 Dose: 400 mg Lacosamide (Vimpat -) 150 mg PO BID [facility] Last Admin: 09/26/17 10:25 Dose: 150 mg Lacosamide (Vimpat -) 75 mg PO MOWEFR [facility] Multivit/Ca Carb/B Cmplx/FA/Prenat (Nephro-Claudia -) 1 tablet PO DAILY [facility] Last Admin: 09/26/17 10:26 Dose: 1 tablet Nifedipine (Procardia Xl -) 90 mg PO BID [facility] Last Admin: 09/26/17 10:26 Dose: 90 mg Nystatin (Mycostatin Cream -) 1 applic TP Q6HPO [facility] Last Admin: 09/26/17 05:09 Dose: 1 applic Sevelamer Carbonate (Renvela -) 1,600 mg PO TIDCM [facility] Last Admin: 09/26/17 08:07 Dose: Not Given - Objective Vital Signs: Vital Signs Temperature 98.4 F 09/26/17 10:00 Pulse Rate 99 H 09/26/17 12:20 Respiratory Rate 18 09/26/17 12:20 Blood Pressure 161/99 09/26/17 12:20 O2 Sat by Pulse Oximetry (%) 96 09/25/17 22:00 Constitutional: Yes: Calm Eyes: Yes: Conjunctiva Clear HENT: Yes: Atraumatic Neck: Yes: Supple Cardiovascular: Yes: S1, S2 Respiratory: Yes: CTA Bilaterally Gastrointestinal: Yes: Soft Genitourinary: Yes: Incontinence Musculoskeletal: Yes: WNL Edema: No Neurological: Yes: Pre-Existing Deficit Labs: CBC, BMP 09/26/17 05:40 09/26/17 05:40 INR, PTT INR 0.93 (0.82-1.09) 09/26/17 05:40 Fibrinogen 558.0 mg/dL (238-498) H 09/17/17 06:45 Problem List - Problems (1) Acute renal failure Code(s): N17.9 - ACUTE KIDNEY FAILURE, UNSPECIFIED Qualifiers: Acute renal failure type: unspecified Qualified Code(s): N17.9 - Acute kidney failure, unspecified (2) Anemia Code(s): D64.9 - ANEMIA, UNSPECIFIED (3) Hyperkalemia Code(s): E87.5 - HYPERKALEMIA (4) Hypertensive urgency Code(s): I16.0 - HYPERTENSIVE URGENCY (5) Sepsis Code(s): A41.9 - SEPSIS, UNSPECIFIED ORGANISM Qualifiers: Sepsis type: sepsis due to unspecified organism Qualified Code(s): A41.9 - Sepsis, unspecified organism (6) Thrombocytopenia Code(s): D69.6 - THROMBOCYTOPENIA, UNSPECIFIED (7) Seizure Code(s): R56.9 - UNSPECIFIED CONVULSIONS Assessment/Plan Current Medications Generic Name Dose Route Start Last Admin Trade Name Freq PRN Reason Stop Dose Admin Acetaminophen 1,000 mg 09/24/17 19:19 Ofirmev Injection - IVPB Q6H PRN PAIN LEVEL 1-5 Amino Acids 30 ml 09/25/17 10:00 09/26/17 10:26 Prosource No Carb Liquid Pkt NGT [address] Administration Diphenhydramine HCl 25 mg 09/24/17 19:19 Benadryl - PO Q6H PRN FOR ITCHING Docusate Sodium 100 mg 09/24/17 19:19 Colace Liquid - NGT Q8H PRN CONSTIPATION Hydralazine HCl 100 mg 09/24/17 22:00 09/26/17 05:08 Apresoline - PO [address] Administration Hydralazine HCl 10 mg 09/24/17 19:19 Apresoline Injection - IVPUSH Q4H PRN HYPERTENSION Isosorbide Mononitrate 30 mg 09/24/17 22:00 09/26/17 10:26 Imdur - PO [address] Administration Labetalol HCl 200 mg 09/24/17 19:19 Normodyne - PO Q2H PRN HYPERTENSION Labetalol HCl 400 mg 09/24/17 22:00 09/26/17 05:09 Normodyne - PO [address] Administration Lacosamide 150 mg 09/24/17 11:57 09/26/17 10:25 Vimpat - PO [address] Administration Lacosamide 75 mg 09/26/17 15:00 Vimpat - PO MOWEFR [facility] Multivit/Ca Carb/B Cmplx/FA/Prenat 1 tablet 09/25/17 10:00 09/26/17 10:26 Nephro-Claudia - PO [address] Administration Nifedipine 90 mg 09/24/17 22:00 09/26/17 10:26 Procardia Xl - PO [address] Administration Nystatin 1 applic 09/25/17 00:00 09/26/17 05:09 Mycostatin Cream - TP [address] Administration Sevelamer Carbonate 1,600 mg 09/25/17 08:00 09/26/17 08:07 Renvela - PO Not Given TIDCM LANE Impression 1. ANNA 2. HTN urgency/emergency 3. hyperkalemia 4. hyponatremia 5. autism 6. hx of seizure 7. anemia 8. CKD 9. lactic acidosis improving 10. thrombocytopenia 11. hyperkalemia 12. pleural effusion 13. acute resp failure requiring intubation 14. ESRD Plan - HD today - kidney biopsy tomorrow or Sunday, spoke to IR - attempt renal artery doppler if pt allows - follow vein mapping for av fistula - discussed plan with pt's mother - renal diet - permacath in place on cxr - discussed with medical team Dr Velasquez
--- NOTE | 2017-09-26 15:28 | PN ---
Physical Exam: SUBJECTIVE: Patient seen and examined in the ICU. Pt ambulated yesterday, now resting in bed. Pt's mother at bedside. Pt remains afebrile. OBJECTIVE: Vital Signs Period Temp Pulse Resp BP Sys/Mora Pulse Ox Last 24 Hr 98.4 F-98.9 F 92-104 16-23 126-179/55-105 96-96 GENERAL: Alert, awake, in NAD. LUNGS: CTAB. HEART: RRR, no murmurs appreciated. ABDOMEN: Soft, nontender, nondistended, no guarding. EXTREMITIES: Warm, well-perfused, no edema. NEUROLOGICAL: Cranial nerves II through XII grossly intact. No facial droop. Gait not observed. Laboratory Results - last 24 hr 09/26/17 09/26/17 09/26/17 05:40 05:40 05:40 WBC 6.3 RBC 2.85 L Hgb 8.4 L Hct 25.1 L MCV 88.0 MCH 29.6 MCHC 33.7 RDW 15.0 Plt Count 412 MPV 7.5 PT with INR 10.50 INR 0.93 PTT (Actin FS) 30.4 Sodium 137 Potassium 4.5 Chloride 97 L Carbon Dioxide 29 Anion Gap 11 BUN 37 H D Creatinine 9.4 H* D Random Glucose 80 Calcium 8.8 Phosphorus 5.7 H Magnesium 2.2 Active Medications Generic Name Dose Route Start Last Admin Trade Name Freq PRN Reason Stop Dose Admin Acetaminophen 1,000 mg 09/24/17 19:19 Ofirmev Injection - IVPB Q6H PRN PAIN LEVEL 1-5 Amino Acids 30 ml 09/25/17 10:00 09/26/17 10:26 Prosource No Carb Liquid Pkt NGT [address] Administration Diphenhydramine HCl 25 mg 09/24/17 19:19 Benadryl - PO Q6H PRN FOR ITCHING Docusate Sodium 100 mg 09/24/17 19:19 Colace Liquid - NGT Q8H PRN CONSTIPATION Hydralazine HCl 100 mg 09/24/17 22:00 09/26/17 14:58 Apresoline - PO [address] Administration Hydralazine HCl 10 mg 09/24/17 19:19 Apresoline Injection - IVPUSH Q4H PRN HYPERTENSION Isosorbide Mononitrate 30 mg 09/24/17 22:00 09/26/17 10:26 Imdur - PO [address] Administration Labetalol HCl 200 mg 09/24/17 19:19 Normodyne - PO Q2H PRN HYPERTENSION Labetalol HCl 400 mg 09/24/17 22:00 09/26/17 14:59 Normodyne - PO [address] Administration Lacosamide 150 mg 09/24/17 11:57 09/26/17 10:25 Vimpat - PO [address] Administration Lacosamide 75 mg 09/26/17 15:00 09/26/17 15:03 Vimpat - PO [address] Administration Multivit/Ca Carb/B Cmplx/FA/Prenat 1 tablet 09/25/17 10:00 09/26/17 10:26 Nephro-Leatha - PO [address] Administration Nifedipine 90 mg 09/24/17 22:00 09/26/17 10:26 Procardia Xl - PO [address] Administration Nystatin 1 applic 09/25/17 00:00 09/26/17 10:00 Mycostatin Cream - TP [address] Administration Sevelamer Carbonate 1,600 mg 09/25/17 08:00 09/26/17 12:00 Renvela - PO 1,[address] Administration ASSESSMENT/PLAN: 22M with PMH of autism and seizure disorder, presents with severe htn, anemia, thrombocytopenia, leukocytosis, hyperkalemia, ANNA, admitted to ICU. # ANNA - Nephrology (Dr. Velasquez) recs appreciated: HD today removed 2.5kg of fluid - renal biopsy to be done by IR tomorrow - consent obtained by Dr. Iniguez and added to the chart - vein mapping per Vascular Surgery (Dr. Kc) to evaluate basilic and cephalic veins for fistula placement - s/p permacath placement 09/10/17 - monitor Cr and UOP - continue Nephro-leatha and Renvela # anemia - hgb stable - pt s/p 4U PRBCs this hospitalization (with most recent unit on 09/10/17) - monitor for overt s/s of bleeding # seizure - continue Vimpat 150 BID - Vimpat 75mg added post-dialysis (MWF) # htn urgency - resolved - continue Labetalol, Hydralazine, Procardia, and Imdur - Cardiology (Dr. Morton) recs appreciated: deferring RAAS-blockers for now given ANNA with renal w/u ongoing - goal BP 120/80 # loculated Left pleural effusion - s/p Left VATS/pneumolysis on 09/17/[address] Ivy - resolved - both chest tubes removed - Ofirmev prn for pain control # severe sepsis 2/2 pneumonia - resolved - continue to observe off antibiotics # acute hypoxic respiratory failure - resolved - pt re-intubated for procedure 09/17/17 and extubated 09/18/17 (pt intubated and extubated 09/06/17) # FEN - Fluids: po - Electrolytes: hyperphosphatemia noted - continue Renvela TID - Nutrition: renal diet with thin liquids, with Ensure chocolate pudding plus Prosource daily npo after midnight for procedure # Prophylaxis - DVT chemoprophylaxis held 06/29 procedure tomorrow - deconditioning ppx with PT # dispo - pt stable for transfer to med-surg floor Visit type - Emergency Visit Emergency Visit: Yes ED Registration Date: 08/29/17 Care time: The patient presented to the Emergency Department on the above date and was hospitalized for further evaluation of their emergent condition. - New Patient This patient is new to me today: No - Critical Care Critical Care patient: Yes Total Critical Care Time (in minutes): 39 Critical Care Statement: The care of this patient involved high complexity decision making to prevent further life threatening deterioration of the patient 's condition and/or to evaluate & treat vital organ system(s) failure or risk of failure.
--- NOTE | 2017-09-26 17:17 | PN ---
Progress Note (short form) - Note Progress Note: CC: htn urgency S: appears comfortable. Occasionally using sign language to communicate. More interactive. Per mother, slightly more agitated today, bothered by bp cuff. Had hd today. Transferred to floor today. o: Current Medications Acetaminophen (Ofirmev Injection -) 1,000 mg IVPB Q6H PRN PRN Reason: PAIN LEVEL 1-5 Amino Acids (Prosource No Carb Liquid Pkt) 30 ml NGT DAILY [facility] Last Admin: 09/26/17 10:26 Dose: 30 ml Diphenhydramine HCl (Benadryl -) 25 mg PO Q6H PRN PRN Reason: FOR ITCHING Docusate Sodium (Colace Liquid -) 100 mg NGT Q8H PRN PRN Reason: CONSTIPATION Hydralazine HCl (Apresoline -) 100 mg PO TID [facility] Last Admin: 09/26/17 14:58 Dose: 100 mg Hydralazine HCl (Apresoline Injection -) 10 mg IVPUSH Q4H PRN PRN Reason: HYPERTENSION Isosorbide Mononitrate (Imdur -) 30 mg PO BID [facility] Last Admin: 09/26/17 10:26 Dose: 30 mg Labetalol HCl (Normodyne -) 200 mg PO Q2H PRN PRN Reason: HYPERTENSION Labetalol HCl (Normodyne -) 400 mg PO TID [facility] Last Admin: 09/26/17 14:59 Dose: 400 mg Lacosamide (Vimpat -) 150 mg PO BID [facility] Last Admin: 09/26/17 10:25 Dose: 150 mg Lacosamide (Vimpat -) 75 mg PO MOWEFR [facility] Last Admin: 09/26/17 15:03 Dose: 75 mg Multivit/Ca Carb/B Cmplx/FA/Prenat (Nephro-Claudia -) 1 tablet PO DAILY [facility] Last Admin: 09/26/17 10:26 Dose: 1 tablet Nifedipine (Procardia Xl -) 90 mg PO BID [facility] Last Admin: 09/26/17 10:26 Dose: 90 mg Nystatin (Mycostatin Cream -) 1 applic TP Q6HPO [facility] Last Admin: 09/26/17 10:00 Dose: 1 applic Sevelamer Carbonate (Renvela -) 1,600 mg PO TIDCM [facility] Last Admin: 09/26/17 17:04 Dose: 1,600 mg Vital Signs - 24 hr 09/25/17 09/25/17 09/25/17 19:00 20:43 21:00 Temperature 98.6 F 98.4 F Pulse Rate 100 H Respiratory 22 22 Rate Blood Pressure 141/99 O2 Sat by Pulse 96 Oximetry (%) 09/25/17 09/26/17 09/26/17 22:00 00:00 00:19 Temperature 98.9 F Pulse Rate 93 H 93 H Respiratory 23 18 Rate Blood Pressure 126/58 126/58 O2 Sat by Pulse 96 Oximetry (%) 09/26/17 09/26/17 09/26/17 02:00 04:00 06:00 Temperature 98.6 F 98.7 F Pulse Rate 95 H 95 H 93 H Respiratory 17 18 16 Rate Blood Pressure 140/85 156/78 136/105 O2 Sat by Pulse Oximetry (%) 09/26/17 09/26/17 09/26/17 08:00 09:00 10:00 Temperature 98.4 F Pulse Rate 93 H 92 H Respiratory 16 18 16 Rate Blood Pressure 155/95 176/87 O2 Sat by Pulse 96 96 Oximetry (%) 09/26/17 09/26/17 09/26/17 10:45 10:50 11:20 Temperature Pulse Rate 100 H 98 H 101 H Respiratory 18 18 18 Rate Blood Pressure 155/95 173/97 176/87 O2 Sat by Pulse Oximetry (%) 09/26/17 09/26/17 09/26/17 11:50 12:20 12:50 Temperature Pulse Rate 97 H 99 H 98 H Respiratory 18 18 18 Rate Blood Pressure 173/87 161/99 179/55 O2 Sat by Pulse Oximetry (%) 09/26/17 09/26/17 09/26/17 13:20 13:50 14:00 Temperature 99.0 F Pulse Rate 98 H 104 H 102 H Respiratory 18 18 15 Rate Blood Pressure 179/95 160/73 158/77 O2 Sat by Pulse Oximetry (%) 09/26/17 09/26/17 09/26/17 14:20 14:50 15:00 Temperature Pulse Rate 102 H 102 H 101 H Respiratory 18 18 18 Rate Blood Pressure 157/85 158/78 158/77 O2 Sat by Pulse Oximetry (%) Intake & Output 04/3009/25/17 09/26/17 09/27/17 07:59 07:59 07:59 07:59 Intake Total 800 1020 1060 360 Output Total 80 Balance 800 1020 1060 280 Weight 168 lb 3.2 oz 167 lb 14.4 oz 170 lb 11.2 oz nad, calm no jvd rrr s1 s2 no mrg trace dullness at left base, nl effort. + bs soft nt nd. no jaundice diaphoresis no le e/c/c + dp/pt abd nd pos bs CBC, BMP 09/26/17 05:40 09/26/17 05:40 echo 08/2017: nl lv/rv, no sig valve path cxr 09/25: persistent dense retrocardiac area. prior tele: SR a/p: 22 m hx autism, seizures, possible underlying ckd/htn here with ams, respiratory failure/sepsis, anna requiring HD and hypertensive urgency. Cardiac course complicated by mild troponin elevation and prolonged qtc. HTN emergency: -per mother, no hi BP history ever despite regular electronic court recorder followups. was uncontrolled when here 12/11 for seizure, with agitation then--no BP checked since that discharge she says -has had difficult to control BP here, requiring nifedipine and labetalol drips (the latter up to 2mg/min, i.e. 2800 mg/day, without good bp control) 09/14: increased hydralzine to 100 tid and add imdur 30 qd -09/15: BP severely elevated again this am (220/100). change nifedip 120 qd to 90 bid to cover overnight/early AM bp's (very short-acting med). change coreg to labetalol 400 TID for greater potency (with prn PO doses ordered), will likely need closer to 600-800 TID labetlol, will titrate up as needed -BP much improved, continue current regimen (nifedipine 90 bid, hydral 100 tid, labetalol 400 TID, imdur 30). try to cut down nifedipine dose (to 60 bid) +/- hydralazine dose later, if bp remains well controlled. - 09/18: bp meds mostly held yesterday and this morning due to surgery, intubation etc. bp remains overall well controlled. con't to monitor. -09/19-09/23: bp overall improved, cont current meds - 09/24: bp overal improved, but still with intermittent sbp's in the 150's. -- > will increase imdur to bid dosing. - 09/25 bp controlled, con't same regimen. - 09/26 bp slightly more elevated. According to mother, may have been more agitated. Will monitor, if still elevated tomorrow, can consider further uptitration of regimen. -deferring RAAS-blockers for now given ANNA with renal w/u ongoing anna requiring HD: -creat 2.1 here in november, ? no prior w/u per mother -suspect hypertensive renal failure, progressive since then, though possible causality in other direction (no MD f/u since november, per mother) -renal eval in progress, planned for biopsy this week. - getting HD here abnormal troponins - flat trend, with intermediate range values - secondary to sepsis myocardial injury, vs demand ischemia (severe HTN, with tachycardia to 120s-130s). no clinical findings to support acs here. anemia: -chronic, mgm't per primary team respiratory failure s/p intubation (resolved), pleural effusion - with white out of left lung - 09/04 s/p chest tube placement. - plan per critical care/thoracic surgery--s/p Bronchoscopy, left VATS, drainage of effusion, pneumolysis 09/17. now with chest tube x 2. - 09/20 one chest tube removed. - 09/21 second chest tube removed. - still with residual retrocardiac opacity, pulm following.
[2017-09-27] MEDS: NYSTATIN 100,000 UNIT/GM TOPICAL CREAM 15 GM TUBE TP SCH ×4 (01:13→17:56)
[2017-09-27] MEDS ORDERED: PT OWN MED DRAWER 7, Y5N ONE (06:21)
[2017-09-27] MEDS: hydrALAZINE HCL 50 MG TABLET (FP) PO SCH ×3 (06:23→22:18)
[2017-09-27] MEDS: LABETALOL HCL 200 MG TABLET (FP) PO SCH ×3 (06:23→22:17)
[2017-09-27 06:37] LABS: HEMATOCRIT 26.5 % (35.4-49); MCH 30.1 pg (25.7-33.7); MCHC 33.8 g/dl (32.0-35.9); MEAN CELL VOLUME 89.1 fl (80-96); MEAN PLT VOLUME 7.5 fl (7.5-11.1); PLATELET COUNT 358 K/MM3 (134-434); RBC 2.98 M/mm3 (4.00-5.60); RDW 15.4 % (11.9-15.9); WHITE BLOOD COUNT 6.3 K/mm3 (4.0-10.0)
[2017-09-27 07:06] LABS: ANION GAP 11 (8-16); BLOOD UREA NITROGEN 28 mg/dL (7-18); CALCIUM 8.7 mg/dL (8.5-10.1); CHLORIDE 99 mmol/L (98-107); CO2 30 mmol/L (21-32); GLUCOSE,RANDOM 87 mg/dL (74-106); MAGNESIUM 1.9 mg/dL (1.8-2.4); POTASSIUM 4.8 mmol/L (3.5-5.1); SODIUM 140 mmol/L (136-145)
[2017-09-27 07:08] LABS: CREATININE 6.7 mg/dL (0.7-1.3); PHOSPHOROUS 4.4 mg/dL (2.5-4.9)
[2017-09-27] MEDS: SEVELAMER CARBONATE 800 MG TAB (FP) PO SCH ×3 (08:43→17:26)
[2017-09-27] MEDS: NIFEdipine E.R. 90 MG TABLET (FP) PO SCH ×2 (09:37→22:17)
[2017-09-27] MEDS: LACOSAMIDE 50 MG TABLET PO SCH ×2 (09:37→22:18)
[2017-09-27] MEDS: ISOSORBIDE MONONITRATE 30 MG TAB.SR.24H (FP) PO SCH ×2 (09:37→22:17)
[2017-09-27] MEDS: AMINO ACIDS/PROTEIN HYDROLYS 30 ML LIQUID.PKT NGT SCH (09:38)
[2017-09-27] MEDS: VITAMIN B COMP W-C 1 EA TABLET PO SCH (09:38)
--- NOTE | 2017-09-27 10:21 | PN ---
Progress Note (short form) - Note Progress Note: CC: htn urgency S: pt does not communicate well. appears comfortable. no overnight events. o: Current Medications Generic Name Dose Route Start Last Admin Trade Name Freq PRN Reason Stop Dose Admin Acetaminophen 1,000 mg 09/24/17 19:19 Ofirmev Injection - IVPB Q6H PRN PAIN LEVEL 1-5 Amino Acids 30 ml 09/25/17 10:00 09/27/17 09:38 Prosource No Carb Liquid Pkt NGT Not Given DAILY LANE Diphenhydramine HCl 25 mg 09/24/17 19:19 Benadryl - PO Q6H PRN FOR ITCHING Docusate Sodium 100 mg 09/24/17 19:19 Colace Liquid - NGT Q8H PRN CONSTIPATION Hydralazine HCl 100 mg 09/24/17 22:00 09/27/17 06:23 Apresoline - PO [address] Administration Hydralazine HCl 10 mg 09/24/17 19:19 Apresoline Injection - IVPUSH Q4H PRN HYPERTENSION Isosorbide Mononitrate 30 mg 09/24/17 22:00 09/27/17 09:37 Imdur - PO [address] Administration Labetalol HCl 200 mg 09/24/17 19:19 Normodyne - PO Q2H PRN HYPERTENSION Labetalol HCl 400 mg 09/24/17 22:00 09/27/17 06:23 Normodyne - PO [address] Administration Lacosamide 150 mg 09/24/17 11:57 09/27/17 09:37 Vimpat - PO [address] Administration Lacosamide 75 mg 09/26/17 15:00 09/26/17 15:03 Vimpat - PO [address] Administration Multivit/Ca Carb/B Cmplx/FA/Prenat 1 tablet 09/25/17 10:00 09/27/17 09:38 Nephro-Claudia - PO Not Given DAILY LANE Nifedipine 90 mg 09/24/17 22:00 09/27/17 09:37 Procardia Xl - PO [address] Administration Nystatin 1 applic 09/25/17 00:00 09/27/17 09:37 Mycostatin Cream - TP [address] Administration Sevelamer Carbonate 1,600 mg 09/25/17 08:00 09/27/17 08:43 Renvela - PO Not Given TIDCM LANE Vital Signs Period Temp Pulse Resp BP Sys/Mora Pulse Ox Last 24 Hr 98.8 F-99.5 F 90-104 148-179/55-100 96-97 nad, calm nad no jvd rrr s1 s2 no mrg cta bl nl effort. no jaundice diaphoresis trace le edema bl abd nd pos bs CBC, BMP 09/27/17 05:35 09/27/17 05:35 echo 08/2017: nl lv/rv, no sig valve path tele: SR a/p: 22 m hx autism, seizures, possible underlying ckd/htn here with ams, respiratory failure/sepsis, anna requiring HD and hypertensive urgency. Cardiac course complicated by mild troponin elevation and prolonged qtc. 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 was uncontrolled when here 12/11 for seizure, with agitation then--no BP checked since that discharge she says -has had difficult to control BP here, requiring nifedipine and labetalol drips (the latter up to 2mg/min, i.e. 2800 mg/day, without good bp control) 09/14: increased hydralzine to 100 tid and add imdur 30 qd -09/15: BP severely elevated again this am (220/100). change nifedip 120 qd to 90 bid to cover overnight/early AM bp's (very short-acting med). change coreg to labetalol 400 TID for greater potency (with prn PO doses ordered), will likely need closer to 600-800 TID labetlol, will titrate up as needed -BP much improved, continue current regimen (nifedipine 90 bid, hydral 100 tid, labetalol 400 TID, imdur 30). try to cut down nifedipine dose (to 60 bid) +/- hydralazine dose later, if bp remains well controlled. - 09/18: bp meds mostly held yesterday and this morning due to surgery, intubation etc. bp remains overall well controlled. con't to monitor. -09/19-09/23: bp overall improved, cont current meds - 09/24: bp overal improved, but still with intermittent sbp's in the 150's. -- > will increase imdur to bid dosing. - 09/25 bp controlled, con't same regimen. - 09/26-3: bp slightly more elevated. According to mother, pt has been more agitated. Will monitor. -deferring RAAS-blockers for now given ANNA with renal w/u ongoing anna requiring HD: -creat 2.1 here in november, ? no prior w/u per mother -suspect hypertensive renal failure, progressive since then, though possible causality in other direction (no MD f/u since november, per mother) -renal eval in progress, planned for biopsy today - getting HD here abnormal troponins - flat trend, with intermediate range values - secondary to sepsis myocardial injury, vs demand ischemia (severe HTN, with tachycardia to 120s-130s). no clinical findings to support acs here. anemia: -chronic, mgm't per primary team respiratory failure s/p intubation (resolved), pleural effusion - with white out of left lung - 09/04 s/p chest tube placement. - plan per critical care/thoracic surgery--s/p Bronchoscopy, left VATS, drainage of effusion, pneumolysis 09/17. now with chest tube x 2. - 09/20 one chest tube removed. - 09/21 second chest tube removed. - still with residual retrocardiac opacity, pulm following.
--- NOTE | 2017-09-27 10:46 | PN ---
Progress Note (short form) - Note Progress Note: PULMONARY No shortness of breath or cough. For renal biopsy today. Last Vital Signs Temp Pulse Resp BP Pulse Ox 98.8 F 97 H 16 148/87 96 09/27/17 06:37 09/27/17 09:41 09/27/17 09:41 09/27/17 09:41 09/27/17 09:00 Gen: NAD at rest Heart: RRR Lung: decreased breath sounds at the bases Abd: soft, nontender Ext: no edema CBC, BMP 09/27/17 05:35 09/27/17 05:35 Active Medications Acetaminophen (Ofirmev Injection -) 1,000 mg IVPB Q6H PRN PRN Reason: PAIN LEVEL 1-5 Amino Acids (Prosource No Carb Liquid Pkt) 30 ml NGT DAILY [facility] Last Admin: 09/27/17 09:38 Dose: Not Given Diphenhydramine HCl (Benadryl -) 25 mg PO Q6H PRN PRN Reason: FOR ITCHING Docusate Sodium (Colace Liquid -) 100 mg NGT Q8H PRN PRN Reason: CONSTIPATION Hydralazine HCl (Apresoline -) 100 mg PO TID [facility] Last Admin: 09/27/17 06:23 Dose: 100 mg Hydralazine HCl (Apresoline Injection -) 10 mg IVPUSH Q4H PRN PRN Reason: HYPERTENSION Isosorbide Mononitrate (Imdur -) 30 mg PO BID [facility] Last Admin: 09/27/17 09:37 Dose: 30 mg Labetalol HCl (Normodyne -) 200 mg PO Q2H PRN PRN Reason: HYPERTENSION Labetalol HCl (Normodyne -) 400 mg PO TID [facility] Last Admin: 09/27/17 06:23 Dose: 400 mg Lacosamide (Vimpat -) 150 mg PO BID [facility] Last Admin: 09/27/17 09:37 Dose: 150 mg Lacosamide (Vimpat -) 75 mg PO MOWEFR [facility] Last Admin: 09/26/17 15:03 Dose: 75 mg Multivit/Ca Carb/B Cmplx/FA/Prenat (Nephro-Claudia -) 1 tablet PO DAILY [facility] Last Admin: 09/27/17 09:38 Dose: Not Given Nifedipine (Procardia Xl -) 90 mg PO BID [facility] Last Admin: 09/27/17 09:37 Dose: 90 mg Nystatin (Mycostatin Cream -) 1 applic TP Q6HPO [facility] Last Admin: 09/27/17 09:37 Dose: 1 applic Sevelamer Carbonate (Renvela -) 1,600 mg PO TIDCM [facility] Last Admin: 09/27/17 08:43 Dose: Not Given A/P Hypertensive Urgency resolved Acute Kidney Injury requiring HD Acute Hypoxic Respiratory Failure improving Pneumonia Loculated Pleural Effusion s/p L VATS/pneumolysis Severe Sepsis resolved Lactic Acidosis resolved Thrombocytopenia improved Anemia Autism - completed antibiotics - pain control - HD per renal - monitor H/H - monitor urine output, creatinine - for renal biopsy - BP control - taper Fio2 to keep Spo2 >90% - PO as tolerated - DVT/GI prophylaxis
--- NOTE | 2017-09-27 11:03 | PN ---
Physical Exam: SUBJECTIVE: Patient seen and examined. Watching his ipad, is very hungry, follows direction. Awaiting biopsy OBJECTIVE: Vital Signs Period Temp Pulse Resp BP Sys/Mora Pulse Ox Last 24 Hr 98.8 F-99.5 F 90-104 15-18 148-179/55-100 96-97 PE Neuro: awake, alert, NAD Pulm: clear anteriorly, no cough CV: s1 s2 rrr no mrg Abd: s nt nd +bs Ext: warm, no le edema Access: RCW permacath Laboratory Results - last 24 hr 09/27/17 09/27/17 05:35 05:35 WBC 6.3 RBC 2.98 L Hgb 9.0 L Hct 26.5 L MCV 89.1 MCH 30.1 MCHC 33.8 RDW 15.4 Plt Count 358 MPV 7.5 Sodium 140 Potassium 4.8 Chloride 99 Carbon Dioxide 30 Anion Gap 11 BUN 28 H D Creatinine 6.7 H D Random Glucose 87 Calcium 8.7 Phosphorus 4.4 D Magnesium 1.9 Active Medications Generic Name Dose Route Start Last Admin Trade Name Freq PRN Reason Stop Dose Admin Acetaminophen 1,000 mg 09/24/17 19:19 Ofirmev Injection - IVPB Q6H PRN PAIN LEVEL 1-5 Amino Acids 30 ml 09/25/17 10:00 09/27/17 09:38 Prosource No Carb Liquid Pkt NGT Not Given DAILY LANE Diphenhydramine HCl 25 mg 09/24/17 19:19 Benadryl - PO Q6H PRN FOR ITCHING Docusate Sodium 100 mg 09/24/17 19:19 Colace Liquid - NGT Q8H PRN CONSTIPATION Hydralazine HCl 100 mg 09/24/17 22:00 09/27/17 06:23 Apresoline - PO [address] Administration Hydralazine HCl 10 mg 09/24/17 19:19 Apresoline Injection - IVPUSH Q4H PRN HYPERTENSION Isosorbide Mononitrate 30 mg 09/24/17 22:00 09/27/17 09:37 Imdur - PO [address] Administration Labetalol HCl 200 mg 09/24/17 19:19 Normodyne - PO Q2H PRN HYPERTENSION Labetalol HCl 400 mg 09/24/17 22:00 09/27/17 06:23 Normodyne - PO [address] Administration Lacosamide 150 mg 09/24/17 11:57 09/27/17 09:37 Vimpat - PO [address] Administration Lacosamide 75 mg 09/26/17 15:00 09/26/17 15:03 Vimpat - PO [address] Administration Multivit/Ca Carb/B Cmplx/FA/Prenat 1 tablet 09/25/17 10:00 09/27/17 09:38 Nephro-Claudia - PO Not Given DAILY LANE Nifedipine 90 mg 09/24/17 22:00 09/27/17 09:37 Procardia Xl - PO [address] Administration Nystatin 1 applic 09/25/17 00:00 09/27/17 09:37 Mycostatin Cream - TP [address] Administration Sevelamer Carbonate 1,600 mg 09/25/17 08:00 09/27/17 08:43 Renvela - PO Not Given TIDCM LANE Assessment: 22 year old male with PMHx of HTN, autism, epilepsy, who presented to the ED with diarrhea and increased dyspnea and was found to have hypertensive emergency, ANNA, pneumonia with a complicated hospital course including acute respiratory failure requiring intubation and a persistent left pleural effusion, s/p thoracentesis 09/02, s/p pigtail 09/04, then requiring vats and pneumolysis on 09/17 with chest tubes, now pulled. Plan: 1. Acute hypoxic respiratory failure, large left pleural effusion - Resolved - S/p bronchoscopy/left VATS/drainage of effusion/pneumolysis 09/17 2. Severe sepsis 2/2 pneumonia - Off abx 3. ANNA, ESRD - For Kidney biopsy today - HD yesterday - Fistula before discharge from hospital, vascular to obtain vein mapping 4. Hypertensive emergency - BP stable this AM - Continue Hydralazine - Continue Imdur - Continue Labetolol - Continue Procardia Xl 5. Epilepsy - On day of dialysis pt to receive additional 75mg after HD - Continue increased Vimpat 150mg BID 6. Ppx - Heparin 5,000u sq bid CODE STATUS: FULL CODE Visit type - Emergency Visit Emergency Visit: Yes ED Registration Date: 08/29/17 Care time: The patient presented to the Emergency Department on the above date and was hospitalized for further evaluation of their emergent condition. - New Patient This patient is new to me today: No - Critical Care Critical Care patient: No
[2017-09-27] MEDS ORDERED: PROPOFOL 20 ML ONE (13:01)
[2017-09-27] MEDS ORDERED: MIDAZOLAM HCL 2 MG/2 ML SINGLE DOSE VIAL ONE ×2 (13:01→13:10)
[2017-09-27] MEDS ORDERED: ROCURONIUM BROMIDE 50 MG/5 ML VIAL ONE (13:02)
[2017-09-27] MEDS ORDERED: SODIUM CHLORIDE 250 ML IV PRN (13:16)
[2017-09-27] MEDS ORDERED: NEOSTIGMINE METHYLSULFATE 0.5 MG/ML - 10 ML MDV ONE (14:04)
[2017-09-27] MEDS ORDERED: SODIUM CHLORIDE 1,000 ML IV SCH (14:30)
[2017-09-27] MEDS ORDERED: ONDANSETRON 4 MG/2 ML VIAL IVPUSH PRN (14:32)
--- NOTE | 2017-09-27 15:11 | PN ---
Progress Note, Physician History of Present Illness: Pt seen and examined at bedside. He is currently in the recovery room. He had the kidney biopsy. I spoke to his mother and discussed his care. - Current Medication List Current Medications: Active Medications Acetaminophen (Ofirmev Injection -) 1,000 mg IVPB Q6H PRN PRN Reason: PAIN LEVEL 1-5 Amino Acids (Prosource No Carb Liquid Pkt) 30 ml NGT DAILY [facility] Last Admin: 09/27/17 09:38 Dose: Not Given Diphenhydramine HCl (Benadryl -) 25 mg PO Q6H PRN PRN Reason: FOR ITCHING Docusate Sodium (Colace Liquid -) 100 mg NGT Q8H PRN PRN Reason: CONSTIPATION Fentanyl (Sublimaze Injection -) 25 mcg IVPUSH [id number] PRN PRN Reason: PAIN-PACU ORDER X 4 DOSES ONLY Hydralazine HCl (Apresoline -) 100 mg PO TID [facility] Last Admin: 09/27/17 06:23 Dose: 100 mg Hydralazine HCl (Apresoline Injection -) 10 mg IVPUSH Q4H PRN PRN Reason: HYPERTENSION Sodium Chloride (Normal Saline -) 1,000 mls @ 75 mls/hr IV ASDIR [facility] Isosorbide Mononitrate (Imdur -) 30 mg PO BID [facility] Last Admin: 09/27/17 09:37 Dose: 30 mg Labetalol HCl (Normodyne -) 200 mg PO Q2H PRN PRN Reason: HYPERTENSION Labetalol HCl (Normodyne -) 400 mg PO TID [facility] Last Admin: 09/27/17 06:23 Dose: 400 mg Lacosamide (Vimpat -) 150 mg PO BID [facility] Last Admin: 09/27/17 09:37 Dose: 150 mg Lacosamide (Vimpat -) 75 mg PO MOWEFR [facility] Last Admin: 09/26/17 15:03 Dose: 75 mg Multivit/Ca Carb/B Cmplx/FA/Prenat (Nephro-Claudia -) 1 tablet PO DAILY [facility] Last Admin: 09/27/17 09:38 Dose: Not Given Nifedipine (Procardia Xl -) 90 mg PO BID [facility] Last Admin: 09/27/17 09:37 Dose: 90 mg Nystatin (Mycostatin Cream -) 1 applic TP Q6HPO [facility] Last Admin: 09/27/17 11:43 Dose: 1 applic Ondansetron HCl (Zofran Injection) 4 mg IVPUSH Q6H PRN PRN Reason: NAUSEA AND/OR VOMITING Sevelamer Carbonate (Renvela -) 1,600 mg PO TIDCM [facility] Last Admin: 09/27/17 11:43 Dose: Not Given - Objective Vital Signs: Vital Signs Temperature 98.1 F 09/27/17 14:11 Pulse Rate 92 H 09/27/17 14:40 Respiratory Rate 16 09/27/17 14:40 Blood Pressure 141/77 09/27/17 14:40 O2 Sat by Pulse Oximetry (%) 98 09/27/17 14:40 Constitutional: Yes: Calm Eyes: Yes: Conjunctiva Clear HENT: Yes: Atraumatic Neck: Yes: Supple Cardiovascular: Yes: S1, S2 Respiratory: Yes: CTA Bilaterally Gastrointestinal: Yes: Soft Genitourinary: Yes: Incontinence Musculoskeletal: Yes: WNL Edema: No Neurological: Yes: Other (sleeping) Labs: CBC, BMP 09/27/17 05:35 09/27/17 05:35 INR, PTT INR 0.93 (0.82-1.09) 09/26/17 05:40 Fibrinogen 558.0 mg/dL (238-498) H 09/17/17 06:45 Problem List - Problems (1) Acute renal failure Code(s): N17.9 - ACUTE KIDNEY FAILURE, UNSPECIFIED Qualifiers: Acute renal failure type: unspecified Qualified Code(s): N17.9 - Acute kidney failure, unspecified (2) Anemia Code(s): D64.9 - ANEMIA, UNSPECIFIED (3) Hyperkalemia Code(s): E87.5 - HYPERKALEMIA (4) Hypertensive urgency Code(s): I16.0 - HYPERTENSIVE URGENCY (5) Sepsis Code(s): A41.9 - SEPSIS, UNSPECIFIED ORGANISM Qualifiers: Sepsis type: sepsis due to unspecified organism Qualified Code(s): A41.9 - Sepsis, unspecified organism (6) Thrombocytopenia Code(s): D69.6 - THROMBOCYTOPENIA, UNSPECIFIED (7) Seizure Code(s): R56.9 - UNSPECIFIED CONVULSIONS Assessment/Plan Current Medications Generic Name Dose Route Start Last Admin Trade Name Freq PRN Reason Stop Dose Admin Acetaminophen 1,000 mg 09/24/17 19:19 Ofirmev Injection - IVPB Q6H PRN PAIN LEVEL 1-5 Amino Acids 30 ml 09/25/17 10:00 09/27/17 09:38 Prosource No Carb Liquid Pkt NGT Not Given DAILY LANE Diphenhydramine HCl 25 mg 09/24/17 19:19 Benadryl - PO Q6H PRN FOR ITCHING Docusate Sodium 100 mg 09/24/17 19:19 Colace Liquid - NGT Q8H PRN CONSTIPATION Fentanyl 25 mcg 09/27/17 14:31 Sublimaze Injection - IVPUSH [id number] PRN PAIN-PACU ORDER X 4 DOSES ONLY Hydralazine HCl 100 mg 09/24/17 22:00 09/27/17 06:23 Apresoline - PO [address] Administration Hydralazine HCl 10 mg 09/24/17 19:19 Apresoline Injection - IVPUSH Q4H PRN HYPERTENSION Sodium Chloride 1,000 mls @ 75 mls/hr 09/27/17 14:30 Normal Saline - IV ASDIR LANE Isosorbide Mononitrate 30 mg 09/24/17 22:00 09/27/17 09:37 Imdur - PO [address] Administration Labetalol HCl 200 mg 09/24/17 19:19 Normodyne - PO Q2H PRN HYPERTENSION Labetalol HCl 400 mg 09/24/17 22:00 09/27/17 06:23 Normodyne - PO [address] Administration Lacosamide 150 mg 09/24/17 11:57 09/27/17 09:37 Vimpat - PO [address] Administration Lacosamide 75 mg 09/26/17 15:00 09/26/17 15:03 Vimpat - PO [address] Administration Multivit/Ca Carb/B Cmplx/FA/Prenat 1 tablet 09/25/17 10:00 09/27/17 09:38 Nephro-Claudia - PO Not Given DAILY LANE Nifedipine 90 mg 09/24/17 22:00 09/27/17 09:37 Procardia Xl - PO [address] Administration Nystatin 1 applic 09/25/17 00:00 09/27/17 11:43 Mycostatin Cream - TP [address] Administration Ondansetron HCl 4 mg 09/27/17 14:32 Zofran Injection IVPUSH Q6H PRN NAUSEA AND/OR VOMITING Sevelamer Carbonate 1,600 mg 09/25/17 08:00 09/27/17 11:43 Renvela - PO Not Given TIDCM LANE Impression 1. ANNA 2. HTN urgency/emergency 3. hyperkalemia 4. hyponatremia 5. autism 6. hx of seizure 7. anemia 8. CKD 9. lactic acidosis improving 10. thrombocytopenia 11. hyperkalemia 12. pleural effusion 13. acute resp failure requiring intubation 14. ESRD Plan - d/c fluids - cont bp meds with close monitoring of blood pressure - pt to lay flat after procedure - discussed case with his mother - will arrange for HD tomorrow - if he develops any abdominal or back discomfort please check ultrasound and hg to r/o bleed - vein mapping for fistula - will need av fistula placement before discharge - send info to [facility] - renal diet - discussed with medical team Dr Velasquez
[2017-09-27] MEDS ORDERED: ACETAMINOPHEN 325 MG TABLET (FP) PO ONE (19:15)
[2017-09-27 20:04] LABS: BASO % 0.7 % (0-2.0); EOS % 2.8 % (0-4.5); HEMATOCRIT 25.9 % (35.4-49); HEMOGLOBIN 8.6 GM/dL (11.7-16.9); LYMPH % 26.1 % (8-40); MCH 29.7 pg (25.7-33.7); MCHC 33.3 g/dl (32.0-35.9); MEAN PLT VOLUME 7.5 fl (7.5-11.1); MONO % 9.4 % (3.8-10.2); PLATELET COUNT 333 K/MM3 (134-434); RDW 14.5 % (11.9-15.9); WHITE BLOOD COUNT 7.1 K/mm3 (4.0-10.0)
[2017-09-28] MEDS ORDERED: PT OWN MED DRAWER 7, Y5N ONE ×5 (00:04→20:40)
[2017-09-28] MEDS: NYSTATIN 100,000 UNIT/GM TOPICAL CREAM 15 GM TUBE TP SCH ×5 (00:33→23:47)
[2017-09-28] MEDS: hydrALAZINE HCL 50 MG TABLET (FP) PO SCH ×3 (06:37→21:53)
[2017-09-28] MEDS: LABETALOL HCL 200 MG TABLET (FP) PO SCH ×3 (06:37→21:53)
[2017-09-28] MEDS: SEVELAMER CARBONATE 800 MG TAB (FP) PO SCH ×4 (08:27→17:19)
[2017-09-28 08:53] LABS: HEMATOCRIT 26.9 % (35.4-49); HEMOGLOBIN 8.8 GM/dL (11.7-16.9); MCH 29.2 pg (25.7-33.7); MCHC 32.8 g/dl (32.0-35.9); MEAN CELL VOLUME 88.9 fl (80-96); MEAN PLT VOLUME 7.1 fl (7.5-11.1); PLATELET COUNT 338 K/MM3 (134-434); RBC 3.03 M/mm3 (4.00-5.60); WHITE BLOOD COUNT 11.2 K/mm3 (4.0-10.0)
[2017-09-28 09:29] LABS: ANION GAP 10 (8-16); BLOOD UREA NITROGEN 39 mg/dL (7-18); CALCIUM 8.9 mg/dL (8.5-10.1); CHLORIDE 100 mmol/L (98-107); CO2 28 mmol/L (21-32); GLUCOSE,RANDOM 92 mg/dL (74-106); PHOSPHOROUS 5.3 mg/dL (2.5-4.9); POTASSIUM 4.6 mmol/L (3.5-5.1); SODIUM 138 mmol/L (136-145)
[2017-09-28] MEDS: LACOSAMIDE 50 MG TABLET PO SCH ×4 (10:29→21:53)
[2017-09-28] MEDS: ISOSORBIDE MONONITRATE 30 MG TAB.SR.24H (FP) PO SCH ×2 (10:29→21:53)
[2017-09-28] MEDS: AMINO ACIDS/PROTEIN HYDROLYS 30 ML LIQUID.PKT NGT SCH (10:29)
[2017-09-28] MEDS: NIFEdipine E.R. 90 MG TABLET (FP) PO SCH ×2 (10:29→21:53)
[2017-09-28] MEDS: VITAMIN B COMP W-C 1 EA TABLET PO SCH (10:29)
--- NOTE | 2017-09-28 11:28 | PN ---
Progress Note (short form) - Note Progress Note: CC: htn urgency S: pt does not communicate well. appears comfortable. no overnight events. o: Current Medications Generic Name Dose Route Start Last Admin Trade Name Freq PRN Reason Stop Dose Admin Acetaminophen 1,000 mg 09/24/17 19:19 Ofirmev Injection - IVPB Q6H PRN PAIN LEVEL 1-5 Amino Acids 30 ml 09/25/17 10:00 09/28/17 10:29 Prosource No Carb Liquid Pkt NGT [address] Administration Diphenhydramine HCl 25 mg 09/24/17 19:19 Benadryl - PO Q6H PRN FOR ITCHING Docusate Sodium 100 mg 09/24/17 19:19 Colace Liquid - NGT Q8H PRN CONSTIPATION Epoetin Mir 7,000 unit 09/28/17 15:11 Epogen - IVPUSH 09/28/17 15:12 ONCE ONE Fentanyl 25 mcg 09/27/17 14:31 Sublimaze Injection - IVPUSH [id number] PRN PAIN-PACU ORDER X 4 DOSES ONLY Hydralazine HCl 100 mg 09/24/17 22:00 09/28/17 06:37 Apresoline - PO [address] Administration Hydralazine HCl 10 mg 09/24/17 19:19 09/27/17 19:05 Apresoline Injection - IVPUSH 10 mg Q4H PRN Administration HYPERTENSION Sodium Chloride 250 mls @ 3,000 mls/hr 09/27/17 15:11 Normal Saline - IV 09/28/17 15:11 PRN PRN Hypotension during Dialysis Isosorbide Mononitrate 30 mg 09/24/17 22:00 09/28/17 10:29 Imdur - PO [address] Administration Labetalol HCl 200 mg 09/24/17 19:19 Normodyne - PO Q2H PRN HYPERTENSION Labetalol HCl 400 mg 09/24/17 22:00 09/28/17 06:37 Normodyne - PO [address] Administration Lacosamide 150 mg 09/24/17 11:57 09/28/17 10:29 Vimpat - PO [address] Administration Lacosamide 75 mg 09/26/17 15:00 09/26/17 15:03 Vimpat - PO [address] Administration Multivit/Ca Carb/B Cmplx/FA/Prenat 1 tablet 09/25/17 10:00 09/28/17 10:29 Nephro-Claudia - PO [address] Administration Nifedipine 90 mg 09/24/17 22:00 09/28/17 10:29 Procardia Xl - PO [address] Administration Nystatin 1 applic 09/25/17 00:00 09/28/17 06:37 Mycostatin Cream - TP [address] Administration Ondansetron HCl 4 mg 09/27/17 14:32 Zofran Injection IVPUSH Q6H PRN NAUSEA AND/OR VOMITING Sevelamer Carbonate 1,600 mg 09/25/17 08:00 09/28/17 08:27 Renvela - PO 1,[address] Administration Vital Signs Period Temp Pulse Resp BP Sys/Mora Pulse Ox Last 24 Hr 98.0 F-98.6 F 75-99 10-20 106-169/51-109 91-100 nad, calm nad no jvd rrr s1 s2 no mrg cta bl nl effort. no jaundice diaphoresis trace le edema bl abd nd pos bs CBC, BMP 09/28/17 08:32 09/28/17 08:32 echo 08/2017: nl lv/rv, no sig valve path a/p: 22 m hx autism, seizures, possible underlying ckd/htn here with ams, respiratory failure/sepsis, anna requiring HD and hypertensive urgency. Cardiac course complicated by mild troponin elevation and prolonged qtc. 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 was uncontrolled when here 12/11 for seizure, with agitation then--no BP checked since that discharge she says -has had difficult to control BP here, requiring nifedipine and labetalol drips (the latter up to 2mg/min, i.e. 2800 mg/day, without good bp control) 09/14: increased hydralzine to 100 tid and add imdur 30 qd -09/15: BP severely elevated again this am (220/100). change nifedip 120 qd to 90 bid to cover overnight/early AM bp's (very short-acting med). change coreg to labetalol 400 TID for greater potency (with prn PO doses ordered), will likely need closer to 600-800 TID labetlol, will titrate up as needed -BP much improved, continue current regimen (nifedipine 90 bid, hydral 100 tid, labetalol 400 TID, imdur 30). try to cut down nifedipine dose (to 60 bid) +/- hydralazine dose later, if bp remains well controlled. - 09/18: bp meds mostly held yesterday and this morning due to surgery, intubation etc. bp remains overall well controlled. con't to monitor. - 09/19-09/23: bp overall improved, cont current meds - 09/24: bp overal improved, but still with intermittent sbp's in the 150's. -- > will increase imdur to bid dosing. - 09/25 bp controlled, con't same regimen. - 09/26-: bp slightly more elevated. According to mother, pt has been more agitated. monitor on current meds. - deferring RAAS-blockers for now given ANNA with renal w/u ongoing anna requiring HD: -creat 2.1 here in november, ? no prior w/u per mother -suspect hypertensive renal failure, progressive since then, though possible causality in other direction (no MD f/u since november, per mother) -renal eval in progress. biopsy done. - getting HD here abnormal troponins - flat trend, with intermediate range values - secondary to sepsis myocardial injury, vs demand ischemia (severe HTN, with tachycardia to 120s-130s). no clinical findings to support acs here. anemia: -chronic, mgm't per primary team respiratory failure s/p intubation (resolved), pleural effusion - with white out of left lung - 09/04 s/p chest tube placement. - plan per critical care/thoracic surgery--s/p Bronchoscopy, left VATS, drainage of effusion, pneumolysis 09/17. now with chest tube x 2. - 09/20 one chest tube removed. - 09/21 second chest tube removed. - still with residual retrocardiac opacity, pulm following.
[2017-09-28 12:39] LABS: CREATININE 9.7 mg/dL (0.7-1.3)
--- NOTE | 2017-09-28 13:03 | PN ---
Progress Note, Physician History of Present Illness: pulmonary awake,-resp distress,on HD.pt s/p renal bx tolerated procedure well - Current Medication List Current Medications: Active Medications Acetaminophen (Ofirmev Injection -) 1,000 mg IVPB Q6H PRN PRN Reason: PAIN LEVEL 1-5 Amino Acids (Prosource No Carb Liquid Pkt) 30 ml NGT DAILY [facility] Last Admin: 09/28/17 10:29 Dose: 30 ml Diphenhydramine HCl (Benadryl -) 25 mg PO Q6H PRN PRN Reason: FOR ITCHING Docusate Sodium (Colace Liquid -) 100 mg NGT Q8H PRN PRN Reason: CONSTIPATION Epoetin Mir (Epogen -) 7,000 unit IVPUSH ONCE ONE Stop: 09/28/17 15:12 Fentanyl (Sublimaze Injection -) 25 mcg IVPUSH [id number] PRN PRN Reason: PAIN-PACU ORDER X 4 DOSES ONLY Hydralazine HCl (Apresoline -) 100 mg PO TID [facility] Last Admin: 09/28/17 06:37 Dose: 100 mg Hydralazine HCl (Apresoline Injection -) 10 mg IVPUSH Q4H PRN PRN Reason: HYPERTENSION Last Admin: 09/27/17 19:05 Dose: 10 mg Sodium Chloride (Normal Saline -) 250 mls @ 3,000 mls/hr IV PRN PRN PRN Reason: Hypotension during Dialysis Stop: 09/28/17 15:11 Isosorbide Mononitrate (Imdur -) 30 mg PO BID [facility] Last Admin: 09/28/17 10:29 Dose: 30 mg Labetalol HCl (Normodyne -) 200 mg PO Q2H PRN PRN Reason: HYPERTENSION Labetalol HCl (Normodyne -) 400 mg PO TID [facility] Last Admin: 09/28/17 06:37 Dose: 400 mg Lacosamide (Vimpat -) 150 mg PO BID [facility] Last Admin: 09/28/17 10:29 Dose: 150 mg Lacosamide (Vimpat -) 75 mg PO MOWEFR [facility] Last Admin: 09/26/17 15:03 Dose: 75 mg Multivit/Ca Carb/B Cmplx/FA/Prenat (Nephro-Claudia -) 1 tablet PO DAILY [facility] Last Admin: 09/28/17 10:29 Dose: 1 tablet Nifedipine (Procardia Xl -) 90 mg PO BID [facility] Last Admin: 09/28/17 10:29 Dose: 90 mg Nystatin (Mycostatin Cream -) 1 applic TP Q6HPO [facility] Last Admin: 09/28/17 12:21 Dose: 1 applic Ondansetron HCl (Zofran Injection) 4 mg IVPUSH Q6H PRN PRN Reason: NAUSEA AND/OR VOMITING Sevelamer Carbonate (Renvela -) 1,600 mg PO TIDCM [facility] Last Admin: 09/28/17 12:39 Dose: 1,600 mg - Objective Vital Signs: Vital Signs Temperature 98.6 F 09/28/17 06:00 Pulse Rate 94 H 09/28/17 06:00 Respiratory Rate 20 09/28/17 06:00 Blood Pressure 156/109 09/28/17 06:00 O2 Sat by Pulse Oximetry (%) 91 L 09/27/17 21:00 Constitutional: Yes: Well Nourished, Calm Eyes: Yes: WNL HENT: Yes: WNL Neck: Yes: WNL Cardiovascular: Yes: Regular Rate and Rhythm, S1, S2 Respiratory: Yes: Diminished Gastrointestinal: Yes: Normal Bowel Sounds, Soft Extremities: Yes: WNL Edema: No Labs: CBC, BMP 09/28/17 08:32 09/28/17 08:32 INR, PTT INR 0.93 (0.82-1.09) 09/26/17 05:40 Fibrinogen 558.0 mg/dL (238-498) H 09/17/17 06:45 Problem List - Problems (1) Respiratory failure Code(s): J96.90 - RESPIRATORY FAILURE, UNSP, UNSP W HYPOXIA OR HYPERCAPNIA (2) Acute renal failure Code(s): N17.9 - ACUTE KIDNEY FAILURE, UNSPECIFIED Qualifiers: Acute renal failure type: unspecified Qualified Code(s): N17.9 - Acute kidney failure, unspecified (3) Anemia Code(s): D64.9 - ANEMIA, UNSPECIFIED (4) Autism Code(s): F84.0 - AUTISTIC DISORDER (5) Hypertensive urgency Code(s): I16.0 - HYPERTENSIVE URGENCY (6) Pneumonia Code(s): J18.9 - PNEUMONIA, UNSPECIFIED ORGANISM Qualifiers: Pneumonia type: due to unspecified organism Laterality: unspecified laterality Lung location: unspecified part of lung Qualified Code(s): J18.9 - Pneumonia, unspecified organism Assessment/Plan A/P Hypertensive Urgency resolved Acute Kidney Injury requiring HD Acute Hypoxic Respiratory Failure improved Pneumonia Loculated Pleural Effusion s/p L VATS/pneumolysis Severe Sepsis resolved Lactic Acidosis resolved Thrombocytopenia improved Anemia Autism - completed antibiotics - pain control - HD per renal - monitor H/H - monitor urine output, creatinine - check path - BP control - taper Fio2 to keep Spo2 >90% - PO as tolerated - DVT/GI prophylaxis DR WALSH
--- NOTE | 2017-09-28 13:09 | PN ---
Physical Exam: SUBJECTIVE: Patient seen and examined at the bedside. Mother at bedside. OBJECTIVE: Patient calm, cooperative s/p mapping today Vital Signs Period Temp Pulse Resp BP Sys/Mora Pulse Ox Last 24 Hr 98.0 F-98.6 F 75-99 10-20 106-170/51-109 91-100 GENERAL: The patient is awake, alert, and fully oriented, in no acute distress. HEAD: Normal with no signs of trauma. EYES: PERRL, extraocular movements intact, sclera anicteric, conjunctiva clear. No ptosis. ENT: Ears normal, nares patent, oropharynx clear without exudates, moist mucous membranes. NECK: Trachea midline, full range of motion, supple. LUNGS: Breath sounds equal, clear to auscultation bilaterally, no wheezes HEART: Regular rate and rhythm ABDOMEN: Soft, nontender, nondistended, normoactive bowel sounds, no guarding EXTREMITIES: no edema. NEUROLOGICAL: Normal speech, gait not observed. PSYCH: Normal mood, normal affect. Laboratory Results - last 24 hr 09/27/17 09/27/17 09/28/17 19:30 19:30 08:32 WBC 7.1 11.2 H D RBC 2.90 L 3.03 L Hgb 8.6 L 8.8 L Hct 25.9 L 26.9 L MCV 89.0 88.9 MCH 29.7 29.2 MCHC 33.3 32.8 RDW 14.5 15.0 Plt Count 333 338 MPV 7.5 7.1 L Neutrophils % 61.0 Lymphocytes % 26.1 D Monocytes % 9.4 Eosinophils % 2.8 Basophils % 0.7 Sodium Potassium Chloride Carbon Dioxide Anion Gap BUN Creatinine Random Glucose Calcium Phosphorus Blood Type O POSITIVE Antibody Screen Negative 09/28/17 08:32 WBC RBC Hgb Hct MCV MCH MCHC RDW Plt Count MPV Neutrophils % Lymphocytes % Monocytes % Eosinophils % Basophils % Sodium 138 Potassium 4.6 Chloride 100 Carbon Dioxide 28 Anion Gap 10 BUN 39 H D Creatinine 9.7 H* D Random Glucose 92 Calcium 8.9 Phosphorus 5.3 H D Blood Type Antibody Screen Active Medications Generic Name Dose Route Start Last Admin Trade Name Freq PRN Reason Stop Dose Admin Acetaminophen 1,000 mg 09/24/17 19:19 Ofirmev Injection - IVPB Q6H PRN PAIN LEVEL 1-5 Amino Acids 30 ml 09/25/17 10:00 09/28/17 10:29 Prosource No Carb Liquid Pkt NGT [address] Administration Diphenhydramine HCl 25 mg 09/24/17 19:19 Benadryl - PO Q6H PRN FOR ITCHING Docusate Sodium 100 mg 09/24/17 19:19 Colace Liquid - NGT Q8H PRN CONSTIPATION Epoetin Mir 7,000 unit 09/28/17 15:11 Epogen - IVPUSH 09/28/17 15:12 ONCE ONE Fentanyl 25 mcg 09/27/17 14:31 Sublimaze Injection - IVPUSH [id number] PRN PAIN-PACU ORDER X 4 DOSES ONLY Hydralazine HCl 100 mg 09/24/17 22:00 09/28/17 06:37 Apresoline - PO [address] Administration Hydralazine HCl 10 mg 09/24/17 19:19 09/27/17 19:05 Apresoline Injection - IVPUSH 10 mg Q4H PRN Administration HYPERTENSION Sodium Chloride 250 mls @ 3,000 mls/hr 09/27/17 15:11 Normal Saline - IV 09/28/17 15:11 PRN PRN Hypotension during Dialysis Isosorbide Mononitrate 30 mg 09/24/17 22:00 09/28/17 10:29 Imdur - PO [address] Administration Labetalol HCl 200 mg 09/24/17 19:19 Normodyne - PO Q2H PRN HYPERTENSION Labetalol HCl 400 mg 09/24/17 22:00 09/28/17 06:37 Normodyne - PO [address] Administration Lacosamide 150 mg 09/24/17 11:57 09/28/17 10:29 Vimpat - PO [address] Administration Lacosamide 75 mg 09/26/17 15:00 09/26/17 15:03 Vimpat - PO [address] Administration Multivit/Ca Carb/B Cmplx/FA/Prenat 1 tablet 09/25/17 10:00 09/28/17 10:29 Nephro-Claudia - PO [address] Administration Nifedipine 90 mg 09/24/17 22:00 09/28/17 10:29 Procardia Xl - PO [address] Administration Nystatin 1 applic 09/25/17 00:00 09/28/17 12:21 Mycostatin Cream - TP [address] Administration Ondansetron HCl 4 mg 09/27/17 14:32 Zofran Injection IVPUSH Q6H PRN NAUSEA AND/OR VOMITING Sevelamer Carbonate 1,600 mg 09/25/17 08:00 09/28/17 12:39 Renvela - PO 1,[address] Administration ASSESSMENT/PLAN: Patient is a 22 year old male with a significant past medical history of autism , hypertension and seizure disorder. He presents of the ED on 08/29/2017 with c/ o of weakness, diarrhea and increased dyspnea. As per admitting notes, pt was being treated with Keflex for skin infection then developed diarrhea and was given Immodium by family for the diarrhea. Family then noted patient became weaker, had increased dyspnea at rest and had a poor appetite. On admission his creatinine was noted to be 20.5 and was noted to have hypertensive urgency with a low hmg/hct and in electrolyte imbalance of unclear etiology. Hospitalization further complicated when patient required intubation for acute respiratory failure. Renal: Acute Kidney Injury Presented with creat of 20.5, now has received dialysis since admission Nephrology following Monitor intake and output Card: Hypertension BP elevated today On Hydralazine 100mg TID, Isosorbide Mononitrate 30mg PO BID, Labetalol HCL 400mg TID, Procardia 90mg BID Cardiology following Pulm: Chest CT with a large pleural effusion, s/p chest tube Tolerating room air Neuro: Seizures, chronic additional 75mg after HD On Vimpat 150mg BID Heme: Anemia, thrombocytopenia Monitor CBC daily F.E.N. Fluids: PO adequate Electrolytes: monitor with daily labs Nutrition: Renal diet, on Sevelamer Prophy: GI: deferred DVT: SCDs bilaterally Dispositon: full code Visit type - Emergency Visit Emergency Visit: Yes ED Registration Date: 08/29/17 Care time: The patient presented to the Emergency Department on the above date and was hospitalized for further evaluation of their emergent condition. - New Patient This patient is new to me today: No - Critical Care Critical Care patient: No - Discharge Referral Referred to [facility] No
[2017-09-28] MEDS ORDERED: EPOETIN ALFA 10,000 UNIT/1 ML VIAL IVPUSH ONE (13:30)
--- NOTE | 2017-09-28 13:52 | PN ---
Progress Note (short form) - Note Progress Note: Patient seen and examined All the events noted feels much better. s/p kidney biopsy mother at bedside. pt watching iPAD General: NAD Cor: tachy Lungs: coarse Abd: Soft, Normal bowel sounds, No organomegaly Ext:UE mild bilateral edema Neuro: alert and awake Last Vital Signs Temp Pulse Resp BP Pulse Ox 98.6 F 94 H 18 170/101 91 L 09/28/17 06:00 09/28/17 12:55 09/28/17 12:55 09/28/17 12:55 09/27/17 21:00 CBC, BMP 09/28/17 08:32 09/28/17 08:32 Current Medications Generic Name Dose Route Start Last Admin Trade Name Freq PRN Reason Stop Dose Admin Acetaminophen 1,000 mg 09/24/17 19:19 Ofirmev Injection - IVPB Q6H PRN PAIN LEVEL 1-5 Amino Acids 30 ml 09/25/17 10:00 09/28/17 10:29 Prosource No Carb Liquid Pkt NGT [address] Administration Diphenhydramine HCl 25 mg 09/24/17 19:19 Benadryl - PO Q6H PRN FOR ITCHING Docusate Sodium 100 mg 09/24/17 19:19 Colace Liquid - NGT Q8H PRN CONSTIPATION Fentanyl 25 mcg 09/27/17 14:31 Sublimaze Injection - IVPUSH [id number] PRN PAIN-PACU ORDER X 4 DOSES ONLY Hydralazine HCl 100 mg 09/24/17 22:00 09/28/17 06:37 Apresoline - PO [address] Administration Hydralazine HCl 10 mg 09/24/17 19:19 09/27/17 19:05 Apresoline Injection - IVPUSH 10 mg Q4H PRN Administration HYPERTENSION Isosorbide Mononitrate 30 mg 09/24/17 22:00 09/28/17 10:29 Imdur - PO [address] Administration Labetalol HCl 200 mg 09/24/17 19:19 Normodyne - PO Q2H PRN HYPERTENSION Labetalol HCl 400 mg 09/24/17 22:00 09/28/17 06:37 Normodyne - PO [address] Administration Lacosamide 150 mg 09/24/17 11:57 09/28/17 10:29 Vimpat - PO [address] Administration Lacosamide 75 mg 09/26/17 15:00 09/26/17 15:03 Vimpat - PO [address] Administration Multivit/Ca Carb/B Cmplx/FA/Prenat 1 tablet 09/25/17 10:00 09/28/17 10:29 Nephro-Claudia - PO [address] Administration Nifedipine 90 mg 09/24/17 22:00 09/28/17 10:29 Procardia Xl - PO [address] Administration Nystatin 1 applic 09/25/17 00:00 09/28/17 12:21 Mycostatin Cream - TP [address] Administration Ondansetron HCl 4 mg 09/27/17 14:32 Zofran Injection IVPUSH Q6H PRN NAUSEA AND/OR VOMITING Sevelamer Carbonate 1,600 mg 09/25/17 08:00 09/28/17 12:39 Renvela - PO 1,[address] Administration MAHA in the setting of severe HTN crisis -resolved Now anemia likely a component of acute illness/ESRD supportive transfusions as needed. EPO could be considered later. ESRD :s/p kidney biopsy: suspect GN call with questions. f/uprn Problem List - Problems (1) Acute renal failure Code(s): N17.9 - ACUTE KIDNEY FAILURE, UNSPECIFIED Qualifiers: Acute renal failure type: unspecified Qualified Code(s): N17.9 - Acute kidney failure, unspecified (2) Anemia Code(s): D64.9 - ANEMIA, UNSPECIFIED (3) Thrombocytopenia Code(s): D69.6 - THROMBOCYTOPENIA, UNSPECIFIED (4) Hypertensive urgency Code(s): I16.0 - HYPERTENSIVE URGENCY (5) Seizure Code(s): R56.9 - UNSPECIFIED CONVULSIONS
--- NOTE | 2017-09-28 14:21 | PN ---
Progress Note (short form) - Note Progress Note: Post op day#1.S/P Renal biopsy under [place] uneventful.Patient stable.No any anesthesia related problem.Patient DC from the anesthesia care.
--- NOTE | 2017-09-28 14:55 | PN ---
Progress Note, Physician History of Present Illness: Pt seen and examined at bedside. He is getting HD. He appears comfortable and is at baseline. - Current Medication List Current Medications: Active Medications Acetaminophen (Ofirmev Injection -) 1,000 mg IVPB Q6H PRN PRN Reason: PAIN LEVEL 1-5 Amino Acids (Prosource No Carb Liquid Pkt) 30 ml NGT DAILY [facility] Last Admin: 09/28/17 10:29 Dose: 30 ml Diphenhydramine HCl (Benadryl -) 25 mg PO Q6H PRN PRN Reason: FOR ITCHING Docusate Sodium (Colace Liquid -) 100 mg NGT Q8H PRN PRN Reason: CONSTIPATION Fentanyl (Sublimaze Injection -) 25 mcg IVPUSH [id number] PRN PRN Reason: PAIN-PACU ORDER X 4 DOSES ONLY Hydralazine HCl (Apresoline -) 100 mg PO TID [facility] Last Admin: 09/28/17 06:37 Dose: 100 mg Hydralazine HCl (Apresoline Injection -) 10 mg IVPUSH Q4H PRN PRN Reason: HYPERTENSION Last Admin: 09/27/17 19:05 Dose: 10 mg Isosorbide Mononitrate (Imdur -) 30 mg PO BID [facility] Last Admin: 09/28/17 10:29 Dose: 30 mg Labetalol HCl (Normodyne -) 200 mg PO Q2H PRN PRN Reason: HYPERTENSION Labetalol HCl (Normodyne -) 400 mg PO TID [facility] Last Admin: 09/28/17 06:37 Dose: 400 mg Lacosamide (Vimpat -) 150 mg PO BID [facility] Last Admin: 09/28/17 10:29 Dose: 150 mg Lacosamide (Vimpat -) 75 mg PO MOWEFR [facility] Last Admin: 09/26/17 15:03 Dose: 75 mg Multivit/Ca Carb/B Cmplx/FA/Prenat (Nephro-Claudia -) 1 tablet PO DAILY [facility] Last Admin: 09/28/17 10:29 Dose: 1 tablet Nifedipine (Procardia Xl -) 90 mg PO BID [facility] Last Admin: 09/28/17 10:29 Dose: 90 mg Nystatin (Mycostatin Cream -) 1 applic TP Q6HPO [facility] Last Admin: 09/28/17 12:21 Dose: 1 applic Ondansetron HCl (Zofran Injection) 4 mg IVPUSH Q6H PRN PRN Reason: NAUSEA AND/OR VOMITING Sevelamer Carbonate (Renvela -) 1,[address] Last Admin: 09/28/17 12:39 Dose: 1,600 mg - Objective Vital Signs: Vital Signs Temperature 99.1 F 09/28/17 13:57 Pulse Rate 94 H 09/28/17 13:57 Respiratory Rate 18 09/28/17 13:57 Blood Pressure 170/101 09/28/17 13:57 O2 Sat by Pulse Oximetry (%) 91 L 09/27/17 21:00 Constitutional: Yes: Calm Eyes: Yes: Conjunctiva Clear HENT: Yes: Atraumatic Neck: Yes: Supple Cardiovascular: Yes: S1, S2 Respiratory: Yes: CTA Bilaterally Gastrointestinal: Yes: Normal Bowel Sounds, Soft Genitourinary: Yes: Incontinence Musculoskeletal: Yes: WNL Edema: No Neurological: Yes: Pre-Existing Deficit Labs: CBC, BMP 09/28/17 08:32 09/28/17 08:32 INR, PTT INR 0.93 (0.82-1.09) 09/26/17 05:40 Fibrinogen 558.0 mg/dL (238-498) H 09/17/17 06:45 Problem List - Problems (1) Acute renal failure Code(s): N17.9 - ACUTE KIDNEY FAILURE, UNSPECIFIED Qualifiers: Acute renal failure type: unspecified Qualified Code(s): N17.9 - Acute kidney failure, unspecified (2) Anemia Code(s): D64.9 - ANEMIA, UNSPECIFIED (3) Hyperkalemia Code(s): E87.5 - HYPERKALEMIA (4) Hypertensive urgency Code(s): I16.0 - HYPERTENSIVE URGENCY (5) Sepsis Code(s): A41.9 - SEPSIS, UNSPECIFIED ORGANISM Qualifiers: Sepsis type: sepsis due to unspecified organism Qualified Code(s): A41.9 - Sepsis, unspecified organism (6) Thrombocytopenia Code(s): D69.6 - THROMBOCYTOPENIA, UNSPECIFIED (7) Seizure Code(s): R56.9 - UNSPECIFIED CONVULSIONS Assessment/Plan Current Medications Generic Name Dose Route Start Last Admin Trade Name Freq PRN Reason Stop Dose Admin Acetaminophen 1,000 mg 09/24/17 19:19 Ofirmev Injection - IVPB Q6H PRN PAIN LEVEL 1-5 Amino Acids 30 ml 09/25/17 10:00 09/28/17 10:29 Prosource No Carb Liquid Pkt NGT [address] Administration Diphenhydramine HCl 25 mg 09/24/17 19:19 Benadryl - PO Q6H PRN FOR ITCHING Docusate Sodium 100 mg 09/24/17 19:19 Colace Liquid - NGT Q8H PRN CONSTIPATION Fentanyl 25 mcg 09/27/17 14:31 Sublimaze Injection - IVPUSH [id number] PRN PAIN-PACU ORDER X 4 DOSES ONLY Hydralazine HCl 100 mg 09/24/17 22:00 09/28/17 06:37 Apresoline - PO [address] Administration Hydralazine HCl 10 mg 09/24/17 19:19 09/27/17 19:05 Apresoline Injection - IVPUSH 10 mg Q4H PRN Administration HYPERTENSION Isosorbide Mononitrate 30 mg 09/24/17 22:00 09/28/17 10:29 Imdur - PO [address] Administration Labetalol HCl 200 mg 09/24/17 19:19 Normodyne - PO Q2H PRN HYPERTENSION Labetalol HCl 400 mg 09/24/17 22:00 09/28/17 06:37 Normodyne - PO [address] Administration Lacosamide 150 mg 09/24/17 11:57 09/28/17 10:29 Vimpat - PO [address] Administration Lacosamide 75 mg 09/26/17 15:00 09/26/17 15:03 Vimpat - PO [address] Administration Multivit/Ca Carb/B Cmplx/FA/Prenat 1 tablet 09/25/17 10:00 09/28/17 10:29 Nephro-Claudia - PO [address] Administration Nifedipine 90 mg 09/24/17 22:00 09/28/17 10:29 Procardia Xl - PO [address] Administration Nystatin 1 applic 09/25/17 00:00 09/28/17 12:21 Mycostatin Cream - TP [address] Administration Ondansetron HCl 4 mg 09/27/17 14:32 Zofran Injection IVPUSH Q6H PRN NAUSEA AND/OR VOMITING Sevelamer Carbonate 1,600 mg 09/25/17 08:00 09/28/17 12:39 Renvela - PO 1,[address] Administration Impression 1. ANNA 2. HTN urgency/emergency 3. hyperkalemia 4. hyponatremia 5. autism 6. hx of seizure 7. anemia 8. CKD 9. lactic acidosis improving 10. thrombocytopenia 11. hyperkalemia 12. pleural effusion 13. acute resp failure requiring intubation 14. ESRD Plan - HD today - pt had kidney biopsy yesterday, follow up results - vascular surgery for AV fistula - sent HD info to [facility] - cont bp meds - monitor bp - Hg is stable - renal diet Dr Velasquez
[2017-09-28] MEDS: diphenhydrAMINE HCL 25 MG CAPSULE (FP) PO PRN (21:52)
[2017-09-29] MEDS: LABETALOL HCL 200 MG TABLET (FP) PO SCH ×3 (05:59→21:15)
[2017-09-29] MEDS: hydrALAZINE HCL 50 MG TABLET (FP) PO SCH ×3 (05:59→21:12)
[2017-09-29] MEDS: NYSTATIN 100,000 UNIT/GM TOPICAL CREAM 15 GM TUBE TP SCH ×3 (05:59→17:48)
[2017-09-29] MEDS: SEVELAMER CARBONATE 800 MG TAB (FP) PO SCH ×3 (08:33→17:42)
[2017-09-29] MEDS ORDERED: PT OWN MED DRAWER 7, Y5N ONE (09:51)
[2017-09-29] MEDS: LACOSAMIDE 50 MG TABLET PO SCH ×2 (10:00→21:10)
[2017-09-29] MEDS: NIFEdipine E.R. 90 MG TABLET (FP) PO SCH ×2 (10:00→21:15)
[2017-09-29] MEDS: VITAMIN B COMP W-C 1 EA TABLET PO SCH (10:00)
[2017-09-29] MEDS: AMINO ACIDS/PROTEIN HYDROLYS 30 ML LIQUID.PKT NGT SCH (10:00)
[2017-09-29] MEDS: ISOSORBIDE MONONITRATE 30 MG TAB.SR.24H (FP) PO SCH ×2 (10:00→21:15)
--- NOTE | 2017-09-29 10:03 | PN ---
Physical Exam: SUBJECTIVE: Patient seen and examined at the bedside. Awake and alert, follows commands Mom at bedside OBJECTIVE: wbc bumped up to 14.2, afebrile, reactive? Had renal biopsy on 09/27/2017 monitor, and trend WBC Vital Signs Period Temp Pulse Resp BP Sys/Mora Pulse Ox Last 24 Hr 98.7 F-99.1 F 93-108 18-20 139-170/68-101 93 GENERAL: The patient is awake, alert, and fully oriented, in no acute distress. HEAD: Normal with no signs of trauma. EYES: PERRL, extraocular movements intact, sclera anicteric, conjunctiva clear. No ptosis. ENT: Ears normal, nares patent, oropharynx clear without exudates, moist mucous membranes. NECK: Trachea midline, full range of motion, supple. LUNGS: Breath sounds equal, clear to auscultation anteriorly, no wheezes HEART: Regular rate and rhythm ABDOMEN: Soft, nontender, nondistended, normoactive bowel sounds, no guarding EXTREMITIES: mild edema bilaterally PSYCH: Normal mood, normal affect. Laboratory Results - last 24 hr 09/28/17 08:32 Creatinine 9.7 H* D Active Medications Generic Name Dose Route Start Last Admin Trade Name Freq PRN Reason Stop Dose Admin Acetaminophen 1,000 mg 09/24/17 19:19 Ofirmev Injection - IVPB Q6H PRN PAIN LEVEL 1-5 Amino Acids 30 ml 09/25/17 10:00 09/29/17 10:00 Prosource No Carb Liquid Pkt NGT [address] Administration Diphenhydramine HCl 25 mg 09/24/17 19:19 09/28/17 21:52 Benadryl - PO 25 mg Q6H PRN Administration FOR ITCHING Docusate Sodium 100 mg 09/24/17 19:19 Colace Liquid - NGT Q8H PRN CONSTIPATION Fentanyl 25 mcg 09/27/17 14:31 Sublimaze Injection - IVPUSH [id number] PRN PAIN-PACU ORDER X 4 DOSES ONLY Hydralazine HCl 100 mg 09/24/17 22:00 09/29/17 05:59 Apresoline - PO [address] Administration Hydralazine HCl 10 mg 09/24/17 19:19 09/27/17 19:05 Apresoline Injection - IVPUSH 10 mg Q4H PRN Administration HYPERTENSION Isosorbide Mononitrate 30 mg 09/24/17 22:00 09/29/17 10:00 Imdur - PO [address] Administration Labetalol HCl 200 mg 09/24/17 19:19 Normodyne - PO Q2H PRN HYPERTENSION Labetalol HCl 400 mg 09/24/17 22:00 09/29/17 05:59 Normodyne - PO [address] Administration Lacosamide 150 mg 09/24/17 11:57 09/29/17 10:00 Vimpat - PO [address] Administration Lacosamide 75 mg 09/26/17 15:00 09/28/17 17:24 Vimpat - PO [address] Administration Multivit/Ca Carb/B Cmplx/FA/Prenat 1 tablet 09/25/17 10:00 09/29/17 10:00 Nephro-Claudia - PO [address] Administration Nifedipine 90 mg 09/24/17 22:00 09/29/17 10:00 Procardia Xl - PO [address] Administration Nystatin 1 applic 09/25/17 00:00 09/29/17 05:59 Mycostatin Cream - TP [address] Administration Ondansetron HCl 4 mg 09/27/17 14:32 Zofran Injection IVPUSH Q6H PRN NAUSEA AND/OR VOMITING Sevelamer Carbonate 1,600 mg 09/25/17 08:00 09/29/17 08:33 Renvela - PO 1,[address] Administration ASSESSMENT/PLAN: Patient is a 22 year old male with a significant past medical history of autism , hypertension and seizure disorder. He presents of the ED on 08/29/2017 with c/ o of weakness, diarrhea and increased dyspnea. As per admitting notes, pt was being treated with Keflex for skin infection then developed diarrhea and was given Immodium by family for the diarrhea. Family then noted patient became weaker, had increased dyspnea at rest and had a poor appetite. On admission his creatinine was noted to be 20.5 and was noted to have hypertensive urgency with a low hmg/hct and in electrolyte imbalance of unclear etiology. Hospitalization further complicated when patient required intubation for acute respiratory failure. Renal: Acute Kidney Injury Presented with creat of 20.5, now has received dialysis since admission Had mapping on right upper ext. Nephrology following Monitor intake and output Card: Hypertension On Hydralazine 100mg TID, Isosorbide Mononitrate 30mg PO BID, Labetalol HCL 400mg TID, Procardia 90mg BID Cardiology following Pulm: Chest CT with a large pleural effusion, s/p chest tube Tolerating room air Neuro: Seizures, chronic additional 75mg after HD, On Vimpat 150mg BID Heme: Anemia, low stable Thrombocytopenia, resolved Monitor CBC daily F.E.N. Fluids: PO adequate Electrolytes: monitor with daily labs Nutrition: Renal diet, on Sevelamer Prophy: GI: deferred DVT: SCDs bilaterally Dispositon: full code Visit type - Emergency Visit Emergency Visit: Yes ED Registration Date: 08/29/17 Care time: The patient presented to the Emergency Department on the above date and was hospitalized for further evaluation of their emergent condition. - New Patient This patient is new to me today: No - Critical Care Critical Care patient: No - Discharge Referral Referred to [facility] Med P.C.: No
--- NOTE | 2017-09-29 10:28 | PN ---
Progress Note (short form) - Note Progress Note: CC: htn urgency S: pt does not communicate well. appears comfortable. no overnight events. o: Current Medications Generic Name Dose Route Start Last Admin Trade Name Freq PRN Reason Stop Dose Admin Acetaminophen 1,000 mg 09/24/17 19:19 Ofirmev Injection - IVPB Q6H PRN PAIN LEVEL 1-5 Amino Acids 30 ml 09/25/17 10:00 09/29/17 10:00 Prosource No Carb Liquid Pkt NGT [address] Administration Diphenhydramine HCl 25 mg 09/24/17 19:19 09/28/17 21:52 Benadryl - PO 25 mg Q6H PRN Administration FOR ITCHING Docusate Sodium 100 mg 09/24/17 19:19 Colace Liquid - NGT Q8H PRN CONSTIPATION Fentanyl 25 mcg 09/27/17 14:31 Sublimaze Injection - IVPUSH [id number] PRN PAIN-PACU ORDER X 4 DOSES ONLY Hydralazine HCl 100 mg 09/24/17 22:00 09/29/17 05:59 Apresoline - PO [address] Administration Hydralazine HCl 10 mg 09/24/17 19:19 09/27/17 19:05 Apresoline Injection - IVPUSH 10 mg Q4H PRN Administration HYPERTENSION Isosorbide Mononitrate 30 mg 09/24/17 22:00 09/29/17 10:00 Imdur - PO [address] Administration Labetalol HCl 200 mg 09/24/17 19:19 Normodyne - PO Q2H PRN HYPERTENSION Labetalol HCl 400 mg 09/24/17 22:00 09/29/17 05:59 Normodyne - PO [address] Administration Lacosamide 150 mg 09/24/17 11:57 09/29/17 10:00 Vimpat - PO [address] Administration Lacosamide 75 mg 09/26/17 15:00 09/28/17 17:24 Vimpat - PO [address] Administration Multivit/Ca Carb/B Cmplx/FA/Prenat 1 tablet 09/25/17 10:00 09/29/17 10:00 Nephro-Claudia - PO [address] Administration Nifedipine 90 mg 09/24/17 22:00 09/29/17 10:00 Procardia Xl - PO [address] Administration Nystatin 1 applic 09/25/17 00:00 09/29/17 05:59 Mycostatin Cream - TP [address] Administration Ondansetron HCl 4 mg 09/27/17 14:32 Zofran Injection IVPUSH Q6H PRN NAUSEA AND/OR VOMITING Sevelamer Carbonate 1,600 mg 09/25/17 08:00 09/29/17 08:33 Renvela - PO 1,[address] Administration Vital Signs Period Temp Pulse Resp BP Sys/Mora Pulse Ox Last 24 Hr 98.7 F-99.1 F 93-108 18-20 139-170/68-101 93 nad, calm nad no jvd rrr s1 s2 no mrg cta bl nl effort. no jaundice diaphoresis trace le edema bl abd nd pos bs CBC, BMP 09/28/17 08:32 09/28/17 08:32 echo 08/2017: nl lv/rv, no sig valve path a/p: 22 m hx autism, seizures, possible underlying ckd/htn here with ams, respiratory failure/sepsis, anna requiring HD and hypertensive urgency. Cardiac course complicated by mild troponin elevation and prolonged qtc. 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 was uncontrolled when here 12/11 for seizure, with agitation then--no BP checked since that discharge she says -has had difficult to control BP here, requiring nifedipine and labetalol drips (the latter up to 2mg/min, i.e. 2800 mg/day, without good bp control) 09/14: increased hydralzine to 100 tid and add imdur 30 qd -09/15: BP severely elevated again this am (220/100). change nifedip 120 qd to 90 bid to cover overnight/early AM bp's (very short-acting med). change coreg to labetalol 400 TID for greater potency (with prn PO doses ordered), will likely need closer to 600-800 TID labetlol, will titrate up as needed -BP much improved, continue current regimen (nifedipine 90 bid, hydral 100 tid, labetalol 400 TID, imdur 30). try to cut down nifedipine dose (to 60 bid) +/- hydralazine dose later, if bp remains well controlled. - 09/18: bp meds mostly held yesterday and this morning due to surgery, intubation etc. bp remains overall well controlled. con't to monitor. - 09/19-09/23: bp overall improved, cont current meds - 09/24: bp overal improved, but still with intermittent sbp's in the 150's. -- > will increase imdur to bid dosing. - 09/25 bp controlled, con't same regimen. - 09/26-5: monitor on current meds. - deferring RAAS-blockers for now given ANNA with renal w/u ongoing anna requiring HD: -creat 2.1 here in november, ? no prior w/u per mother -suspect hypertensive renal failure, progressive since then, though possible causality in other direction (no MD f/u since november, per mother) -renal eval in progress. biopsy done. - getting HD here, plans for avf this week abnormal troponins - flat trend, with intermediate range values - secondary to sepsis myocardial injury, vs demand ischemia (severe HTN, with tachycardia to 120s-130s). no clinical findings to support acs here. anemia: -chronic, mgm't per primary team respiratory failure s/p intubation (resolved), pleural effusion - with white out of left lung - 09/04 s/p chest tube placement. - plan per critical care/thoracic surgery--s/p Bronchoscopy, left VATS, drainage of effusion, pneumolysis 09/17. now with chest tube x 2. - 09/20 one chest tube removed. - 09/21 second chest tube removed. - still with residual retrocardiac opacity, pulm following.
[2017-09-29 10:39] LABS: BASO % 0.5 % (0-2.0); EOS % 0.9 % (0-4.5); HEMATOCRIT 25.7 % (35.4-49); HEMOGLOBIN 8.5 GM/dL (11.7-16.9); LYMPH % 19.6 % (8-40); MCH 29.3 pg (25.7-33.7); MCHC 32.9 g/dl (32.0-35.9); MEAN CELL VOLUME 89.1 fl (80-96); MEAN PLT VOLUME 7.2 fl (7.5-11.1); MONO % 7.4 % (3.8-10.2); NEUT % 71.6 % (42.8-82.8); PLATELET COUNT 260 K/MM3 (134-434); RBC 2.89 M/mm3 (4.00-5.60); RDW 14.9 % (11.9-15.9); WHITE BLOOD COUNT 14.2 K/mm3 (4.0-10.0)
[2017-09-29 11:08] LABS: ALBUMIN 2.7 g/dl (3.4-5.0); ANION GAP 9 (8-16); BLOOD UREA NITROGEN 26 mg/dL (7-18); CALCIUM 8.6 mg/dL (8.5-10.1); CHLORIDE 99 mmol/L (98-107); CO2 31 mmol/L (21-32); GLUCOSE,RANDOM 89 mg/dL (74-106); MAGNESIUM 1.9 mg/dL (1.8-2.4); POTASSIUM 4.6 mmol/L (3.5-5.1); SGOT/AST 12 U/L (15-37); SGPT/ALT 20 U/L (12-78); SODIUM 139 mmol/L (136-145)
[2017-09-29 11:10] LABS: ALK PHOS 105 U/L (45-117); BILIRUBIN,TOTAL 0.4 mg/dL (0.2-1.0); TOT PROT 6.7 g/dl (6.4-8.2)
--- NOTE | 2017-09-29 17:58 | PN ---
Progress Note (short form) - Note Progress Note: covering dr slime abel ANNA/ESRD HTN urgency/emergency s/p hyperkalemia hyponatremia resolved autism hx of seizure anemia Underlying CKD lactic acidosis improved thrombocytopenia pleural effusion/chest tube s/p acute resp failure requiring intubation Current Medications Acetaminophen (Ofirmev Injection -) 1,000 mg IVPB Q6H PRN PRN Reason: PAIN LEVEL 1-5 Amino Acids (Prosource No Carb Liquid Pkt) 30 ml NGT DAILY [facility] Last Admin: 09/29/17 10:00 Dose: 30 ml Diphenhydramine HCl (Benadryl -) 25 mg PO Q6H PRN PRN Reason: FOR ITCHING Last Admin: 09/28/17 21:52 Dose: 25 mg Docusate Sodium (Colace Liquid -) 100 mg NGT Q8H PRN PRN Reason: CONSTIPATION Fentanyl (Sublimaze Injection -) 25 mcg IVPUSH [id number] PRN PRN Reason: PAIN-PACU ORDER X 4 DOSES ONLY Hydralazine HCl (Apresoline -) 100 mg PO TID [facility] Last Admin: 09/29/17 15:10 Dose: 100 mg Hydralazine HCl (Apresoline Injection -) 10 mg IVPUSH Q4H PRN PRN Reason: HYPERTENSION Last Admin: 09/27/17 19:05 Dose: 10 mg Isosorbide Mononitrate (Imdur -) 30 mg PO BID [facility] Last Admin: 09/29/17 10:00 Dose: 30 mg Labetalol HCl (Normodyne -) 200 mg PO Q2H PRN PRN Reason: HYPERTENSION Labetalol HCl (Normodyne -) 400 mg PO TID [facility] Last Admin: 09/29/17 15:10 Dose: 400 mg Lacosamide (Vimpat -) 150 mg PO BID [facility] Last Admin: 09/29/17 10:00 Dose: 150 mg Lacosamide (Vimpat -) 75 mg PO MOWEFR [facility] Last Admin: 09/28/17 17:24 Dose: 75 mg Multivit/Ca Carb/B Cmplx/FA/Prenat (Nephro-Claudia -) 1 tablet PO DAILY [facility] Last Admin: 09/29/17 10:00 Dose: 1 tablet Nifedipine (Procardia Xl -) 90 mg PO BID [facility] Last Admin: 09/29/17 10:00 Dose: 90 mg Nystatin (Mycostatin Cream -) 1 applic TP Q6HPO [facility] Last Admin: 09/29/17 17:48 Dose: Not Given Ondansetron HCl (Zofran Injection) 4 mg IVPUSH Q6H PRN PRN Reason: NAUSEA AND/OR VOMITING Sevelamer Carbonate (Renvela -) 1,600 mg PO TIDCM [facility] Last Admin: 09/29/17 17:42 Dose: 1,600 mg Last Vital Signs Temp Pulse Resp BP Pulse Ox 98.9 F 104 H 18 142/71 93 L 09/29/17 14:00 09/29/17 14:00 09/29/17 14:00 09/29/17 14:00 09/29/17 10:00 Lungs clear heart reg abd soft Ext no edema CBC, BMP 09/29/17 10:20 09/29/17 10:20 IMP- anna/ESRD htn, better control s/p resp failure stable clinically autism Plan continue present rx
[2017-09-30] MEDS: NYSTATIN 100,000 UNIT/GM TOPICAL CREAM 15 GM TUBE TP SCH ×4 (00:05→18:01)
[2017-09-30] MEDS: LABETALOL HCL 200 MG TABLET (FP) PO SCH ×3 (06:25→22:10)
[2017-09-30] MEDS: hydrALAZINE HCL 50 MG TABLET (FP) PO SCH ×3 (06:25→22:10)
[2017-09-30] MEDS: SEVELAMER CARBONATE 800 MG TAB (FP) PO SCH ×3 (08:20→17:20)
[2017-09-30] MEDS ORDERED: PT OWN MED DRAWER 7, Y5N ONE (09:42)
[2017-09-30] MEDS: LACOSAMIDE 50 MG TABLET PO SCH ×2 (09:45→22:10)
[2017-09-30] MEDS: NIFEdipine E.R. 90 MG TABLET (FP) PO SCH ×2 (09:45→22:10)
[2017-09-30] MEDS: AMINO ACIDS/PROTEIN HYDROLYS 30 ML LIQUID.PKT NGT SCH (09:45)
[2017-09-30] MEDS: ISOSORBIDE MONONITRATE 30 MG TAB.SR.24H (FP) PO SCH ×2 (09:46→22:10)
[2017-09-30] MEDS: VITAMIN B COMP W-C 1 EA TABLET PO SCH (09:46)
[2017-09-30 09:57] LABS: BASO % 0.3 % (0-2.0); EOS % 1.3 % (0-4.5); HEMATOCRIT 27.1 % (35.4-49); HEMOGLOBIN 8.7 GM/dL (11.7-16.9); LYMPH % 14.3 % (8-40); MCH 28.8 pg (25.7-33.7); MCHC 32.1 g/dl (32.0-35.9); MEAN CELL VOLUME 89.8 fl (80-96); MEAN PLT VOLUME 7.8 fl (7.5-11.1); MONO % 3.8 % (3.8-10.2); NEUT % 80.3 % (42.8-82.8); PLATELET COUNT 286 K/MM3 (134-434); RBC 3.02 M/mm3 (4.00-5.60); RDW 14.8 % (11.9-15.9); WHITE BLOOD COUNT 15.8 K/mm3 (4.0-10.0)
[2017-09-30 10:05] LABS: ALBUMIN 2.6 g/dl (3.4-5.0); ANION GAP 11 (8-16); BLOOD UREA NITROGEN 40 mg/dL (7-18); CALCIUM 8.6 mg/dL (8.5-10.1); CHLORIDE 99 mmol/L (98-107); CO2 29 mmol/L (21-32); GLUCOSE,RANDOM 125 mg/dL (74-106); MAGNESIUM 2.3 mg/dL (1.8-2.4); POTASSIUM 4.5 mmol/L (3.5-5.1); SGOT/AST 16 U/L (15-37); SGPT/ALT 20 U/L (12-78); SODIUM 139 mmol/L (136-145)
--- NOTE | 2017-09-30 10:12 | PN ---
Physical Exam: SUBJECTIVE: Patient seen and examined at the bedside. Mental status at baseline. OBJECTIVE: WBC elevated to 15.8 today Chest xray, blood cultures, urine cultures UA ordered Remains afebrile will recall ID for rising WBC Vital Signs Period Temp Pulse Resp BP Sys/Mora Pulse Ox Last 24 Hr 98.0 F-99.3 F 95-104 18-20 140-149/61-78 96-97 GENERAL: The patient is awake, alert, in no acute distress, hx of autism HEAD: Normal with no signs of trauma. EYES: PERRL, extraocular movements intact, sclera anicteric, conjunctiva clear. No ptosis. ENT: Ears normal, nares patent, oropharynx clear without exudates, moist mucous membranes. NECK: Trachea midline, full range of motion, supple. LUNGS: left lower lobe diminished, + fine crackles HEART: Regular rate and rhythm ABDOMEN: Soft, nontender, nondistended, normoactive bowel sounds, no guarding EXTREMITIES: mild edema bilaterally PSYCH: Normal mood, normal affect. Laboratory Results - last 24 hr 09/29/17 09/29/17 09/30/17 10:20 10:20 09:15 WBC 14.2 H 15.8 H RBC 2.89 L 3.02 L Hgb 8.5 L 8.7 L Hct 25.7 L 27.1 L MCV 89.1 89.8 MCH 29.3 28.8 MCHC 32.9 32.1 RDW 14.9 14.8 Plt Count 260 D 286 MPV 7.2 L 7.8 Neutrophils % 71.6 80.3 Lymphocytes % 19.6 D 14.3 D Monocytes % 7.4 3.8 Eosinophils % 0.9 1.3 Basophils % 0.5 0.3 Sodium 139 Potassium 4.6 Chloride 99 Carbon Dioxide 31 Anion Gap 9 BUN 26 H D Creatinine 7.0 H D Creat Clearance w eGFR 9.80 Random Glucose 89 Calcium 8.6 Magnesium 1.9 Total Bilirubin 0.4 D AST 12 L D ALT 20 D Alkaline Phosphatase 105 Total Protein 6.7 Albumin 2.7 L Active Medications Generic Name Dose Route Start Last Admin Trade Name Freq PRN Reason Stop Dose Admin Acetaminophen 1,000 mg 09/24/17 19:19 Ofirmev Injection - IVPB Q6H PRN PAIN LEVEL 1-5 Amino Acids 30 ml 09/25/17 10:00 09/30/17 09:45 Prosource No Carb Liquid Pkt NGT [address] Administration Diphenhydramine HCl 25 mg 09/24/17 19:19 09/28/17 21:52 Benadryl - PO 25 mg Q6H PRN Administration FOR ITCHING Docusate Sodium 100 mg 09/24/17 19:19 Colace Liquid - NGT Q8H PRN CONSTIPATION Fentanyl 25 mcg 09/27/17 14:31 Sublimaze Injection - IVPUSH [id number] PRN PAIN-PACU ORDER X 4 DOSES ONLY Hydralazine HCl 100 mg 09/24/17 22:00 09/30/17 06:25 Apresoline - PO [address] Administration Hydralazine HCl 10 mg 09/24/17 19:19 09/27/17 19:05 Apresoline Injection - IVPUSH 10 mg Q4H PRN Administration HYPERTENSION Isosorbide Mononitrate 30 mg 09/24/17 22:00 09/30/17 09:46 Imdur - PO [address] Administration Labetalol HCl 200 mg 09/24/17 19:19 Normodyne - PO Q2H PRN HYPERTENSION Labetalol HCl 400 mg 09/24/17 22:00 09/30/17 06:25 Normodyne - PO [address] Administration Lacosamide 150 mg 09/24/17 11:57 09/30/17 09:45 Vimpat - PO [address] Administration Lacosamide 75 mg 09/26/17 15:00 09/28/17 17:24 Vimpat - PO 75 mg MOWEFR [facility] Administration Multivit/Ca Carb/B Cmplx/FA/Prenat 1 tablet 09/25/17 10:00 09/30/17 09:46 Nephro-Claudia - PO [address] Administration Nifedipine 90 mg 09/24/17 22:00 09/30/17 09:45 Procardia Xl - PO [address] Administration Nystatin 1 applic 09/25/17 00:00 09/30/17 06:25 Mycostatin Cream - TP [address] Administration Ondansetron HCl 4 mg 09/27/17 14:32 Zofran Injection IVPUSH Q6H PRN NAUSEA AND/OR VOMITING Sevelamer Carbonate 1,600 mg 09/25/17 08:00 09/30/17 08:20 Renvela - PO 1,[address] Administration ASSESSMENT/PLAN: Patient is a 22 year old male with a significant past medical history of autism , hypertension and seizure disorder. He presents of the ED on 08/29/2017 with c/ o of weakness, diarrhea and increased dyspnea. As per admitting notes, pt was being treated with Keflex for skin infection then developed diarrhea and was given Immodium by family for the diarrhea. Family then noted patient became weaker, had increased dyspnea at rest and had a poor appetite. On admission his creatinine was noted to be 20.5 and was noted to have hypertensive urgency with a low hmg/hct and in electrolyte imbalance of unclear etiology. Hospitalization further complicated when patient required intubation for acute respiratory failure. Renal: Acute Kidney Injury Presented with creat of 20.5, now has received dialysis since admission Had mapping on right upper ext. Nephrology following Monitor intake and output ID: Leukocytosis Left lower lobe infitrate on chest xray Blood and urine cultures pending ID consulted, to be started on antibiotics WBC 15.8 Card: Hypertension On Hydralazine 100mg TID, Isosorbide Mononitrate 30mg PO BID, Labetalol HCL 400mg TID, Procardia 90mg BID Cardiology following Pulm: Chest CT with a large pleural effusion, s/p chest tube Tolerating room air Neuro: Seizures, chronic additional 75mg after HD, On Vimpat 150mg BID Heme: Anemia, low stable Thrombocytopenia, resolved Monitor CBC daily F.E.N. Fluids: PO adequate Electrolytes: monitor with daily labs Nutrition: Renal diet, on Sevelamer Prophy: GI: deferred DVT: SCDs bilaterally Dispositon: full code Visit type - Emergency Visit Emergency Visit: Yes ED Registration Date: 08/29/17 Care time: The patient presented to the Emergency Department on the above date and was hospitalized for further evaluation of their emergent condition. - New Patient This patient is new to me today: No - Critical Care Critical Care patient: No - Discharge Referral Referred to [facility] Med P.C.: No
[2017-09-30 10:13] LABS: ALK PHOS 113 U/L (45-117); BILIRUBIN,TOTAL 0.4 mg/dL (0.2-1.0); TOT PROT 6.6 g/dl (6.4-8.2)
[2017-09-30 10:22] LABS: CREATININE 9.8 mg/dL (0.7-1.3)
--- NOTE | 2017-09-30 10:39 | PN ---
Progress Note (short form) - Note Progress Note: CC: htn urgency S: pt does not communicate well. appears comfortable. no overnight events. o: Current Medications Generic Name Dose Route Start Last Admin Trade Name Freq PRN Reason Stop Dose Admin Acetaminophen 1,000 mg 09/24/17 19:19 Ofirmev Injection - IVPB Q6H PRN PAIN LEVEL 1-5 Amino Acids 30 ml 09/25/17 10:00 09/30/17 09:45 Prosource No Carb Liquid Pkt NGT [address] Administration Diphenhydramine HCl 25 mg 09/24/17 19:19 09/28/17 21:52 Benadryl - PO 25 mg Q6H PRN Administration FOR ITCHING Docusate Sodium 100 mg 09/24/17 19:19 Colace Liquid - NGT Q8H PRN CONSTIPATION Fentanyl 25 mcg 09/27/17 14:31 Sublimaze Injection - IVPUSH [id number] PRN PAIN-PACU ORDER X 4 DOSES ONLY Hydralazine HCl 100 mg 09/24/17 22:00 09/30/17 06:25 Apresoline - PO [address] Administration Hydralazine HCl 10 mg 09/24/17 19:19 09/27/17 19:05 Apresoline Injection - IVPUSH 10 mg Q4H PRN Administration HYPERTENSION Isosorbide Mononitrate 30 mg 09/24/17 22:00 09/30/17 09:46 Imdur - PO 30 mg BID [facility] Administration Labetalol HCl 200 mg 09/24/17 19:19 Normodyne - PO Q2H PRN HYPERTENSION Labetalol HCl 400 mg 09/24/17 22:00 09/30/17 06:25 Normodyne - PO [address] Administration Lacosamide 150 mg 09/24/17 11:57 09/30/17 09:45 Vimpat - PO [address] Administration Lacosamide 75 mg 09/26/17 15:00 09/28/17 17:24 Vimpat - PO [address] Administration Multivit/Ca Carb/B Cmplx/FA/Prenat 1 tablet 09/25/17 10:00 09/30/17 09:46 Nephro-Claudia - PO [address] Administration Nifedipine 90 mg 09/24/17 22:00 09/30/17 09:45 Procardia Xl - PO [address] Administration Nystatin 1 applic 09/25/17 00:00 09/30/17 06:25 Mycostatin Cream - TP [address] Administration Ondansetron HCl 4 mg 09/27/17 14:32 Zofran Injection IVPUSH Q6H PRN NAUSEA AND/OR VOMITING Sevelamer Carbonate 1,600 mg 09/25/17 08:00 09/30/17 08:20 Renvela - PO 1,[address] Administration Vital Signs Period Temp Pulse Resp BP Sys/Mora Pulse Ox Last 24 Hr 98.0 F-99.3 F 95-104 18-20 140-149/61-78 96-97 nad, calm nad no jvd rrr s1 s2 no mrg cta bl nl effort. no jaundice diaphoresis trace le edema bl abd nd pos bs CBC, BMP 09/30/17 09:15 09/30/17 09:15 echo 08/2017: nl lv/rv, no sig valve path a/p: 22 m hx autism, seizures, possible underlying ckd/htn here with ams, respiratory failure/sepsis, anna requiring HD and hypertensive urgency. Cardiac course complicated by mild troponin elevation and prolonged qtc. 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 was uncontrolled when here 12/11 for seizure, with agitation then--no BP checked since that discharge she says -has had difficult to control BP here, requiring nifedipine and labetalol drips (the latter up to 2mg/min, i.e. 2800 mg/day, without good bp control) 09/14: increased hydralzine to 100 tid and add imdur 30 qd -09/15: BP severely elevated again this am (220/100). change nifedip 120 qd to 90 bid to cover overnight/early AM bp's (very short-acting med). change coreg to labetalol 400 TID for greater potency (with prn PO doses ordered), will likely need closer to 600-800 TID labetlol, will titrate up as needed -BP much improved, continue current regimen (nifedipine 90 bid, hydral 100 tid, labetalol 400 TID, imdur 30). try to cut down nifedipine dose (to 60 bid) +/- hydralazine dose later, if bp remains well controlled. - 09/18: bp meds mostly held yesterday and this morning due to surgery, intubation etc. bp remains overall well controlled. con't to monitor. - 09/19-09/23: bp overall improved, cont current meds - 09/24: bp overal improved, but still with intermittent sbp's in the 150's. -- > will increase imdur to bid dosing. - 09/25 bp controlled, con't same regimen. - 09/26-: bp improved, monitor on current meds. - deferring RAAS-blockers for now given ANNA with renal w/u ongoing anna requiring HD: -creat 2.1 here in november, ? no prior w/u per mother -suspect hypertensive renal failure, progressive since then, though possible causality in other direction (no MD f/u since november, per mother) -renal eval in progress. biopsy done. -getting HD here, plans for avf this week abnormal troponins - flat trend, with intermediate range values - secondary to sepsis myocardial injury, vs demand ischemia (severe HTN, with tachycardia to 120s-130s). no clinical findings to support acs here. anemia: -chronic, mgm't per primary team respiratory failure s/p intubation (resolved), pleural effusion - with white out of left lung - 09/04 s/p chest tube placement. - plan per critical care/thoracic surgery--s/p Bronchoscopy, left VATS, drainage of effusion, pneumolysis 09/17. now with chest tube x 2. - 09/20 one chest tube removed. - 09/21 second chest tube removed. - still with residual retrocardiac opacity, pulm following.
--- NOTE | 2017-09-30 15:22 | PN ---
Progress Note, Physician History of Present Illness: Elevated WBC noted No reported fever/ chills, N/V/D, malodorous urine chest tube exit site no erythema/ drainage S/P renal bx - Current Medication List Current Medications: Active Medications Acetaminophen (Ofirmev Injection -) 1,000 mg IVPB Q6H PRN PRN Reason: PAIN LEVEL 1-5 Amino Acids (Prosource No Carb Liquid Pkt) 30 ml NGT DAILY [facility] Last Admin: 09/30/17 09:45 Dose: 30 ml Diphenhydramine HCl (Benadryl -) 25 mg PO Q6H PRN PRN Reason: FOR ITCHING Last Admin: 09/28/17 21:52 Dose: 25 mg Docusate Sodium (Colace Liquid -) 100 mg NGT Q8H PRN PRN Reason: CONSTIPATION Fentanyl (Sublimaze Injection -) 25 mcg IVPUSH [id number] PRN PRN Reason: PAIN-PACU ORDER X 4 DOSES ONLY Hydralazine HCl (Apresoline -) 100 mg PO TID [facility] Last Admin: 09/30/17 14:32 Dose: 100 mg Hydralazine HCl (Apresoline Injection -) 10 mg IVPUSH Q4H PRN PRN Reason: HYPERTENSION Last Admin: 09/27/17 19:05 Dose: 10 mg Isosorbide Mononitrate (Imdur -) 30 mg PO BID [facility] Last Admin: 09/30/17 09:46 Dose: 30 mg Labetalol HCl (Normodyne -) 200 mg PO Q2H PRN PRN Reason: HYPERTENSION Labetalol HCl (Normodyne -) 400 mg PO TID [facility] Last Admin: 09/30/17 14:32 Dose: 400 mg Lacosamide (Vimpat -) 150 mg PO BID [facility] Last Admin: 09/30/17 09:45 Dose: 150 mg Lacosamide (Vimpat -) 75 mg PO MOWEFR [facility] Last Admin: 09/28/17 17:24 Dose: 75 mg Multivit/Ca Carb/B Cmplx/FA/Prenat (Nephro-Claudia -) 1 tablet PO DAILY [facility] Last Admin: 09/30/17 09:46 Dose: 1 tablet Nifedipine (Procardia Xl -) 90 mg PO BID [facility] Last Admin: 09/30/17 09:45 Dose: 90 mg Nystatin (Mycostatin Cream -) 1 applic TP Q6HPO [facility] Last Admin: 09/30/17 11:47 Dose: 1 applic Ondansetron HCl (Zofran Injection) 4 mg IVPUSH Q6H PRN PRN Reason: NAUSEA AND/OR VOMITING Sevelamer Carbonate (Renvela -) 1,600 mg PO TIDCM [facility] Last Admin: 09/30/17 11:46 Dose: 1,600 mg - Objective Vital Signs: Vital Signs Temperature 98.4 F 09/30/17 13:55 Pulse Rate 99 H 09/30/17 13:55 Respiratory Rate 18 09/30/17 13:55 Blood Pressure 137/79 09/30/17 13:55 O2 Sat by Pulse Oximetry (%) 96 09/30/17 10:00 Constitutional: Yes: No Distress Cardiovascular: Yes: Regular Rate and Rhythm, S1, S2 Respiratory: Yes: Diminished Gastrointestinal: Yes: Normal Bowel Sounds, Soft. No: Tenderness Extremities: No: Calf Tenderness Integumentary: Yes: Other (+ dialysis catheter) Labs: CBC, BMP 09/30/17 09:15 09/30/17 09:15 INR, PTT INR 0.93 (0.82-1.09) 09/26/17 05:40 Fibrinogen 558.0 mg/dL (238-498) H 09/17/17 06:45 Assessment/Plan Leukocytosis ? source Cephalosporin allergy ESRD Await c/s Vancomycin 1gm x1, Levaquin 250mg x 1 If continued leukocytosis, CT A/P ( s/p renal bx) Discussed with mother at bedside
--- NOTE | 2017-09-30 15:47 | PN ---
Progress Note, Physician History of Present Illness: PULMONARY ALERT,NO DISTRESS,-COUGH,-SOB - Current Medication List Current Medications: Active Medications Acetaminophen (Ofirmev Injection -) 1,000 mg IVPB Q6H PRN PRN Reason: PAIN LEVEL 1-5 Amino Acids (Prosource No Carb Liquid Pkt) 30 ml NGT DAILY [facility] Last Admin: 09/30/17 09:45 Dose: 30 ml Diphenhydramine HCl (Benadryl -) 25 mg PO Q6H PRN PRN Reason: FOR ITCHING Last Admin: 09/28/17 21:52 Dose: 25 mg Docusate Sodium (Colace Liquid -) 100 mg NGT Q8H PRN PRN Reason: CONSTIPATION Fentanyl (Sublimaze Injection -) 25 mcg IVPUSH [id number] PRN PRN Reason: PAIN-PACU ORDER X 4 DOSES ONLY Hydralazine HCl (Apresoline -) 100 mg PO TID [facility] Last Admin: 09/30/17 14:32 Dose: 100 mg Hydralazine HCl (Apresoline Injection -) 10 mg IVPUSH Q4H PRN PRN Reason: HYPERTENSION Last Admin: 09/27/17 19:05 Dose: 10 mg Isosorbide Mononitrate (Imdur -) 30 mg PO BID [facility] Last Admin: 09/30/17 09:46 Dose: 30 mg Labetalol HCl (Normodyne -) 200 mg PO Q2H PRN PRN Reason: HYPERTENSION Labetalol HCl (Normodyne -) 400 mg PO TID [facility] Last Admin: 09/30/17 14:32 Dose: 400 mg Lacosamide (Vimpat -) 150 mg PO BID [facility] Last Admin: 09/30/17 09:45 Dose: 150 mg Lacosamide (Vimpat -) 75 mg PO MOWEFR [facility] Last Admin: 09/28/17 17:24 Dose: 75 mg Multivit/Ca Carb/B Cmplx/FA/Prenat (Nephro-Claudia -) 1 tablet PO DAILY [facility] Last Admin: 09/30/17 09:46 Dose: 1 tablet Nifedipine (Procardia Xl -) 90 mg PO BID [facility] Last Admin: 09/30/17 09:45 Dose: 90 mg Nystatin (Mycostatin Cream -) 1 applic TP Q6HPO [facility] Last Admin: 09/30/17 11:47 Dose: 1 applic Ondansetron HCl (Zofran Injection) 4 mg IVPUSH Q6H PRN PRN Reason: NAUSEA AND/OR VOMITING Sevelamer Carbonate (Renvela -) 1,[address] Last Admin: 09/30/17 11:46 Dose: 1,600 mg - Objective Vital Signs: Vital Signs Temperature 98.4 F 09/30/17 13:55 Pulse Rate 99 H 09/30/17 13:55 Respiratory Rate 18 09/30/17 13:55 Blood Pressure 137/79 09/30/17 13:55 O2 Sat by Pulse Oximetry (%) 96 09/30/17 10:00 Constitutional: Yes: Well Nourished, Calm Eyes: Yes: WNL HENT: Yes: WNL Neck: Yes: WNL Cardiovascular: Yes: Regular Rate and Rhythm, S1, S2 Respiratory: Yes: Rales (FEW BASIALR CRACKLES) Gastrointestinal: Yes: Normal Bowel Sounds, Soft Extremities: Yes: WNL Edema: No Labs: CBC, BMP 09/30/17 09:15 09/30/17 09:15 INR, PTT INR 0.93 (0.82-1.09) 09/26/17 05:40 Fibrinogen 558.0 mg/dL (238-498) H 09/17/17 06:45 - ....Imaging Chest X-ray: Report Reviewed, Image Reviewed (NO CHANGE) Problem List - Problems (1) Respiratory failure Code(s): J96.90 - RESPIRATORY FAILURE, UNSP, UNSP W HYPOXIA OR HYPERCAPNIA (2) Acute renal failure Code(s): N17.9 - ACUTE KIDNEY FAILURE, UNSPECIFIED Qualifiers: Qualified Code(s): N17.9 - Acute kidney failure, unspecified (3) Anemia Code(s): D64.9 - ANEMIA, UNSPECIFIED (4) Autism Code(s): F84.0 - AUTISTIC DISORDER (5) Hypertensive urgency Code(s): I16.0 - HYPERTENSIVE URGENCY (6) Pneumonia Code(s): J18.9 - PNEUMONIA, UNSPECIFIED ORGANISM Qualifiers: Qualified Code(s): J18.9 - Pneumonia, unspecified organism Assessment/Plan A/P Hypertensive Urgency resolved Acute Kidney Injury requiring HD Acute Hypoxic Respiratory Failure improved Pneumonia Loculated Pleural Effusion s/p L VATS/pneumolysis Severe Sepsis resolved Lactic Acidosis resolved Thrombocytopenia improved Anemia Autism - antibiotics as per ID - pain control - HD per renal - monitor H/H - monitor urine output, creatinine - BP control - taper Fio2 to keep Spo2 >90% - PO as tolerated - DVT/GI prophylaxis DR WLASH
--- NOTE | 2017-09-30 16:50 | PN ---
Progress Note (short form) - Note Progress Note: covering dr slime abel ANNA/ESRD HTN urgency/emergency s/p hyperkalemia hyponatremia resolved autism hx of seizure anemia Underlying CKD lactic acidosis improved thrombocytopenia pleural effusion/chest tube s/p acute resp failure requiring intubation Current Medications Acetaminophen (Ofirmev Injection -) 1,000 mg IVPB Q6H PRN PRN Reason: PAIN LEVEL 1-5 Amino Acids (Prosource No Carb Liquid Pkt) 30 ml NGT DAILY [facility] Last Admin: 09/30/17 09:45 Dose: 30 ml Diphenhydramine HCl (Benadryl -) 25 mg PO Q6H PRN PRN Reason: FOR ITCHING Last Admin: 09/28/17 21:52 Dose: 25 mg Docusate Sodium (Colace Liquid -) 100 mg NGT Q8H PRN PRN Reason: CONSTIPATION Fentanyl (Sublimaze Injection -) 25 mcg IVPUSH [id number] PRN PRN Reason: PAIN-PACU ORDER X 4 DOSES ONLY Hydralazine HCl (Apresoline -) 100 mg PO TID [facility] Last Admin: 09/30/17 14:32 Dose: 100 mg Hydralazine HCl (Apresoline Injection -) 10 mg IVPUSH Q4H PRN PRN Reason: HYPERTENSION Last Admin: 09/27/17 19:05 Dose: 10 mg Isosorbide Mononitrate (Imdur -) 30 mg PO BID [facility] Last Admin: 09/30/17 09:46 Dose: 30 mg Labetalol HCl (Normodyne -) 200 mg PO Q2H PRN PRN Reason: HYPERTENSION Labetalol HCl (Normodyne -) 400 mg PO TID [facility] Last Admin: 09/30/17 14:32 Dose: 400 mg Lacosamide (Vimpat -) 150 mg PO BID [facility] Last Admin: 09/30/17 09:45 Dose: 150 mg Lacosamide (Vimpat -) 75 mg PO MOWEFR [facility] Last Admin: 09/28/17 17:24 Dose: 75 mg Multivit/Ca Carb/B Cmplx/FA/Prenat (Nephro-Claudia -) 1 tablet PO DAILY [facility] Last Admin: 09/30/17 09:46 Dose: 1 tablet Nifedipine (Procardia Xl -) 90 mg PO BID [facility] Last Admin: 09/30/17 09:45 Dose: 90 mg Nystatin (Mycostatin Cream -) 1 applic TP Q6HPO [facility] Last Admin: 09/30/17 11:47 Dose: 1 applic Ondansetron HCl (Zofran Injection) 4 mg IVPUSH Q6H PRN PRN Reason: NAUSEA AND/OR VOMITING Sevelamer Carbonate (Renvela -) 1,600 mg PO TIDCM [facility] Last Admin: 09/30/17 11:46 Dose: 1,600 mg Last Vital Signs Temp Pulse Resp BP Pulse Ox 98.4 F 99 H 18 137/79 96 09/30/17 13:55 09/30/17 13:55 09/30/17 13:55 09/30/17 13:55 09/30/17 10:00 Lungs clear heart reg abd soft Ext no edema CBC, BMP 09/30/17 09:15 09/30/17 09:15 CBC, BMP 09/29/17 10:20 09/29/17 10:20 IMP- anna/ESRD htn, better control s/p resp failure stable clinically autism Plan continue present rx HD tomorrow
[2017-09-30] MEDS ORDERED: VANCOMYCIN 1,000 MG in DEXTROSE 5%-WATER - 250 ML IVPB ONE (18:00)
[2017-10-01] MEDS: NYSTATIN 100,000 UNIT/GM TOPICAL CREAM 15 GM TUBE TP SCH ×5 (06:26→23:54)
[2017-10-01] MEDS: hydrALAZINE HCL 50 MG TABLET (FP) PO SCH ×3 (06:26→21:09)
[2017-10-01] MEDS: LABETALOL HCL 200 MG TABLET (FP) PO SCH ×3 (06:26→21:10)
[2017-10-01] MEDS: ALBUTEROL SO4 2.5/IPRATROPIUM 0.5 INH SOL 3 ML VIAL.NEB. NEB PRN (07:36)
[2017-10-01 08:01] LABS: BASO % 0.4 % (0-2.0); EOS % 2.1 % (0-4.5); HEMATOCRIT 26.6 % (35.4-49); LYMPH % 17.3 % (8-40); MCH 29.8 pg (25.7-33.7); MCHC 33.8 g/dl (32.0-35.9); MEAN CELL VOLUME 88.1 fl (80-96); MEAN PLT VOLUME 7.7 fl (7.5-11.1); MONO % 4.7 % (3.8-10.2); NEUT % 75.5 % (42.8-82.8); PLATELET COUNT 288 K/MM3 (134-434); RBC 3.02 M/mm3 (4.00-5.60); RDW 14.6 % (11.9-15.9); WHITE BLOOD COUNT 12.4 K/mm3 (4.0-10.0)
[2017-10-01 08:33] LABS: ALBUMIN 2.7 g/dl (3.4-5.0); ANION GAP 9 (8-16); BILIRUBIN,TOTAL 0.6 mg/dL (0.2-1.0); BLOOD UREA NITROGEN 52 mg/dL (7-18); CALCIUM 8.4 mg/dL (8.5-10.1); CHLORIDE 98 mmol/L (98-107); CO2 28 mmol/L (21-32); GLUCOSE,RANDOM 88 mg/dL (74-106); MAGNESIUM 2.3 mg/dL (1.8-2.4); POTASSIUM 4.8 mmol/L (3.5-5.1); SGOT/AST 16 U/L (15-37); SGPT/ALT 18 U/L (12-78); SODIUM 135 mmol/L (136-145); TOT PROT 6.7 g/dl (6.4-8.2)
[2017-10-01 08:39] LABS: ALK PHOS 116 U/L (45-117)
[2017-10-01 09:39] LABS: CREATININE 11.6 mg/dL (0.7-1.3)
[2017-10-01] MEDS ORDERED: PT OWN MED DRAWER 7, Y5N ONE (10:21)
[2017-10-01] MEDS: SEVELAMER CARBONATE 800 MG TAB (FP) PO SCH ×3 (10:29→17:31)
[2017-10-01] MEDS: diphenhydrAMINE HCL 25 MG CAPSULE (FP) PO PRN (11:00)
--- NOTE | 2017-10-01 11:52 | PROC ---
Procedure Note Procedure: Three savage removed from left surgical sites. Incisions well healed and surrounding tissue with no tracking erythema, edema or collection. small area area of fibrinous clot seen at most inferior incision with no d/c and healing. Patient tolerated procedure well. Patient's family member at bedside throughout entire exam and procedure. will order santyl to inferior incision site to aid in healing
--- NOTE | 2017-10-01 12:10 | PN ---
Progress Note, Physician History of Present Illness: PULMONARY ALERT,NO DISTRESS,ON HD - Current Medication List Current Medications: Active Medications Acetaminophen (Ofirmev Injection -) 1,000 mg IVPB Q6H PRN PRN Reason: PAIN LEVEL 1-5 Albuterol/Ipratropium (Duoneb -) 1 amp NEB Q6H PRN PRN Reason: SHORTNESS OF BREATH Last Admin: 10/01/17 07:36 Dose: 1 amp Amino Acids (Prosource No Carb Liquid Pkt) 30 ml NGT DAILY [facility] Last Admin: 09/30/17 09:45 Dose: 30 ml Collagenase (Santyl -) 1 applic TP DAILY [facility] Diphenhydramine HCl (Benadryl -) 25 mg PO Q6H PRN PRN Reason: FOR ITCHING Last Admin: 09/28/17 21:52 Dose: 25 mg Docusate Sodium (Colace Liquid -) 100 mg NGT Q8H PRN PRN Reason: CONSTIPATION Fentanyl (Sublimaze Injection -) 25 mcg IVPUSH [id number] PRN PRN Reason: PAIN-PACU ORDER X 4 DOSES ONLY Hydralazine HCl (Apresoline -) 100 mg PO TID [facility] Last Admin: 10/01/17 06:26 Dose: 100 mg Hydralazine HCl (Apresoline Injection -) 10 mg IVPUSH Q4H PRN PRN Reason: HYPERTENSION Last Admin: 09/27/17 19:05 Dose: 10 mg Isosorbide Mononitrate (Imdur -) 30 mg PO BID [facility] Last Admin: 09/30/17 22:10 Dose: 30 mg Labetalol HCl (Normodyne -) 200 mg PO Q2H PRN PRN Reason: HYPERTENSION Labetalol HCl (Normodyne -) 400 mg PO TID [facility] Last Admin: 10/01/17 06:26 Dose: 400 mg Lacosamide (Vimpat -) 150 mg PO BID [facility] Last Admin: 09/30/17 22:10 Dose: 150 mg Lacosamide (Vimpat -) 75 mg PO MOWEFR [facility] Last Admin: 09/28/17 17:24 Dose: 75 mg Multivit/Ca Carb/B Cmplx/FA/Prenat (Nephro-Claudia -) 1 tablet PO DAILY [facility] Last Admin: 09/30/17 09:46 Dose: 1 tablet Nifedipine (Procardia Xl -) 90 mg PO BID [facility] Last Admin: 09/30/17 22:10 Dose: 90 mg Nystatin (Mycostatin Cream -) 1 applic TP Q6HPO [facility] Last Admin: 10/01/17 12:05 Dose: Not Given Ondansetron HCl (Zofran Injection) 4 mg IVPUSH Q6H PRN PRN Reason: NAUSEA AND/OR VOMITING Sevelamer Carbonate (Renvela -) 1,600 mg PO TIDCM [facility] Last Admin: 10/01/17 12:05 Dose: 1,600 mg - Objective Vital Signs: Vital Signs Temperature 98.4 F 10/01/17 06:00 Pulse Rate 91 H 10/01/17 11:15 Respiratory Rate 18 10/01/17 11:15 Blood Pressure 150/77 10/01/17 11:15 O2 Sat by Pulse Oximetry (%) 95 09/30/17 22:00 Constitutional: Yes: Well Nourished, Calm Eyes: Yes: WNL HENT: Yes: WNL Neck: Yes: WNL Cardiovascular: Yes: Regular Rate and Rhythm, S1, S2 Respiratory: Yes: Rales (FEW BASILAR CRACKLES) Gastrointestinal: Yes: Normal Bowel Sounds, Soft Extremities: Yes: WNL Edema: No Labs: CBC, BMP 10/01/17 07:20 10/01/17 07:20 INR, PTT INR 0.93 (0.82-1.09) 09/26/17 05:40 Fibrinogen 558.0 mg/dL (238-498) H 09/17/17 06:45 Problem List - Problems (1) Respiratory failure Code(s): J96.90 - RESPIRATORY FAILURE, UNSP, UNSP W HYPOXIA OR HYPERCAPNIA (2) Acute renal failure Code(s): N17.9 - ACUTE KIDNEY FAILURE, UNSPECIFIED Qualifiers: Acute renal failure type: unspecified Qualified Code(s): N17.9 - Acute kidney failure, unspecified (3) Anemia Code(s): D64.9 - ANEMIA, UNSPECIFIED (4) Autism Code(s): F84.0 - AUTISTIC DISORDER (5) Hypertensive urgency Code(s): I16.0 - HYPERTENSIVE URGENCY (6) Pneumonia Code(s): J18.9 - PNEUMONIA, UNSPECIFIED ORGANISM Qualifiers: Pneumonia type: due to unspecified organism Laterality: unspecified laterality Lung location: unspecified part of lung Qualified Code(s): J18.9 - Pneumonia, unspecified organism Assessment/Plan A/P Hypertensive Urgency resolved Acute Kidney Injury requiring HD Acute Hypoxic Respiratory Failure improved Pneumonia Loculated Pleural Effusion s/p L VATS/pneumolysis Severe Sepsis resolved Lactic Acidosis resolved Thrombocytopenia improved Anemia Autism - antibiotics as per ID - HD per renal - monitor H/H - monitor urine output, creatinine - BP control - O2 - PO as tolerated - DVT/GI prophylaxis DR WALSH
--- NOTE | 2017-10-01 12:34 | PN ---
Progress Note, Physician Chief Complaint: resp failure History of Present Illness: mother says no sob, just agitation at times. pt non-verbal, appears calm/comfortable - Current Medication List Current Medications: Active Medications Acetaminophen (Ofirmev Injection -) 1,000 mg IVPB Q6H PRN PRN Reason: PAIN LEVEL 1-5 Albuterol/Ipratropium (Duoneb -) 1 amp NEB Q6H PRN PRN Reason: SHORTNESS OF BREATH Last Admin: 10/01/17 07:36 Dose: 1 amp Amino Acids (Prosource No Carb Liquid Pkt) 30 ml NGT DAILY [facility] Last Admin: 09/30/17 09:45 Dose: 30 ml Collagenase (Santyl -) 1 applic TP DAILY [facility] Diphenhydramine HCl (Benadryl -) 25 mg PO Q6H PRN PRN Reason: FOR ITCHING Last Admin: 09/28/17 21:52 Dose: 25 mg Docusate Sodium (Colace Liquid -) 100 mg NGT Q8H PRN PRN Reason: CONSTIPATION Fentanyl (Sublimaze Injection -) 25 mcg IVPUSH [id number] PRN PRN Reason: PAIN-PACU ORDER X 4 DOSES ONLY Hydralazine HCl (Apresoline -) 100 mg PO TID [facility] Last Admin: 10/01/17 06:26 Dose: 100 mg Hydralazine HCl (Apresoline Injection -) 10 mg IVPUSH Q4H PRN PRN Reason: HYPERTENSION Last Admin: 09/27/17 19:05 Dose: 10 mg Isosorbide Mononitrate (Imdur -) 30 mg PO BID [facility] Last Admin: 09/30/17 22:10 Dose: 30 mg Labetalol HCl (Normodyne -) 200 mg PO Q2H PRN PRN Reason: HYPERTENSION Labetalol HCl (Normodyne -) 400 mg PO TID [facility] Last Admin: 10/01/17 06:26 Dose: 400 mg Lacosamide (Vimpat -) 150 mg PO BID [facility] Last Admin: 09/30/17 22:10 Dose: 150 mg Lacosamide (Vimpat -) 75 mg PO MOWEFR [facility] Last Admin: 09/28/17 17:24 Dose: 75 mg Multivit/Ca Carb/B Cmplx/FA/Prenat (Nephro-Claudia -) 1 tablet PO DAILY [facility] Last Admin: 09/30/17 09:46 Dose: 1 tablet Nifedipine (Procardia Xl -) 90 mg PO BID [facility] Last Admin: 09/30/17 22:10 Dose: 90 mg Nystatin (Mycostatin Cream -) 1 applic TP Q6HPO [facility] Last Admin: 10/01/17 12:05 Dose: Not Given Ondansetron HCl (Zofran Injection) 4 mg IVPUSH Q6H PRN PRN Reason: NAUSEA AND/OR VOMITING Sevelamer Carbonate (Renvela -) 1,600 mg PO TIDCM [facility] Last Admin: 10/01/17 12:05 Dose: 1,600 mg - Objective Vital Signs: Vital Signs Temperature 98.4 F 10/01/17 06:00 Pulse Rate 91 H 10/01/17 11:15 Respiratory Rate 18 10/01/17 11:15 Blood Pressure 150/77 10/01/17 11:15 O2 Sat by Pulse Oximetry (%) 95 09/30/17 22:00 Constitutional: Yes: Well Nourished, No Distress, Calm Cardiovascular: Yes: Regular Rate and Rhythm, S1, S2, S4. No: Gallop, Murmur Respiratory: Yes: Regular, CTA Bilaterally (anteriorly (during HD session)). No : Accessory Muscle Use, Wheezes Extremities: No: Cold Edema: No Neurological: Yes: Alert. No: Seizure Psychiatric: No: Agitated Labs: CBC, BMP 10/01/17 07:20 10/01/17 07:20 INR, PTT INR 0.93 (0.82-1.09) 09/26/17 05:40 Fibrinogen 558.0 mg/dL (238-498) H 09/17/17 06:45 Assessment/Plan echo 08/2017: nl lv/rv, no sig valve path a/p: 23 m hx autism, seizures, possible underlying ckd/htn here with ams, respiratory failure/sepsis, anna requiring HD and hypertensive urgency. Cardiac course complicated by mild troponin elevation and prolonged qtc. HTN emergency: -per mother, no hi BP history ever despite regular [employer] followups. was uncontrolled when here 12/11 for seizure, with agitation then--no BP checked since that discharge she says -has had difficult to control BP here, requiring nifedipine and labetalol drips (the latter up to 2mg/min, i.e. 2800 mg/day, without good bp control) 09/14: increased hydralzine to 100 tid and add imdur 30 qd -09/15: BP severely elevated again this am (220/100). change nifedip 120 qd to 90 bid to cover overnight/early AM bp's (very short-acting med). change coreg to labetalol 400 TID for greater potency (with prn PO doses ordered), will likely need closer to 600-800 TID labetlol, will titrate up as needed -BP much improved, continue current regimen -will plan to try to cut down nifedipine dose (to 60 bid) +/- hydralazine dose later, if bp remains well controlled. -deferring RAAS-blockers for now given ANNA with renal w/u ongoing anna requiring HD: -creat 2.1 here in november, ? no prior w/u per mother -suspect hypertensive renal failure, progressive since then, though possible causality in other direction (no MD f/u since november, per mother) -renal eval in progress. biopsy done. -getting HD here, plans for avf this week abnormal troponins - flat trend, with intermediate range values - secondary to sepsis myocardial injury, vs demand ischemia (severe HTN, with tachycardia to 120s-130s). no clinical findings to support acs here. anemia: -chronic, mgm't per primary team respiratory failure s/p intubation (resolved), pleural effusion - with white out of left lung - 09/04 s/p chest tube placement. - plan per critical care/thoracic surgery--s/p Bronchoscopy, left VATS, drainage of effusion, pneumolysis 09/17. now with chest tube x 2. - 09/20 one chest tube removed. - 09/21 second chest tube removed. - still with residual retrocardiac opacity, pulm following.
[2017-10-01] MEDS ORDERED: COLLAGENASE CLOSTRIDIUM HIST. 30 GRAMS TUBE TP SCH (13:07)
--- NOTE | 2017-10-01 13:37 | PN ---
Physical Exam: SUBJECTIVE: Patient seen and examined with this mother at the bedside. Awake and alert, in no acute distress. OBJECTIVE: WBC trending down Given Vanco 1 gram and Levaquin 250mg x 1 pending blood cultures Patient anuric, unable to get urine studies Vital Signs Period Temp Pulse Resp BP Sys/Mora Pulse Ox Last 24 Hr 97.8 F-98.4 F 90-99 18-20 137-162/64-89 93-95 GENERAL: The patient is awake, alert, in no acute distress, hx of autism HEAD: Normal with no signs of trauma. EYES: PERRL, extraocular movements intact, sclera anicteric, conjunctiva clear. No ptosis. ENT: Ears normal, nares patent, oropharynx clear without exudates, moist mucous membranes. NECK: Trachea midline, full range of motion, supple. LUNGS: left lower lobe diminished, + fine crackles, right lung clear HEART: Regular rate and rhythm ABDOMEN: Soft, nontender, nondistended, normoactive bowel sounds, no guarding EXTREMITIES: mild edema bilaterally PSYCH: Normal mood, normal affect, largely non verbal. Laboratory Results - last 24 hr 10/01/17 10/01/17 07:20 07:20 WBC 12.4 H RBC 3.02 L Hgb 9.0 L Hct 26.6 L MCV 88.1 MCH 29.8 MCHC 33.8 RDW 14.6 Plt Count 288 MPV 7.7 Neutrophils % 75.5 Lymphocytes % 17.3 D Monocytes % 4.7 Eosinophils % 2.1 Basophils % 0.4 Sodium 135 L Potassium 4.8 Chloride 98 Carbon Dioxide 28 Anion Gap 9 BUN 52 H D Creatinine 11.6 H* Creat Clearance w eGFR 5.42 Random Glucose 88 D Calcium 8.4 L Magnesium 2.3 Total Bilirubin 0.6 D AST 16 ALT 18 Alkaline Phosphatase 116 Total Protein 6.7 Albumin 2.7 L Active Medications Generic Name Dose Route Start Last Admin Trade Name Freq PRN Reason Stop Dose Admin Acetaminophen 1,000 mg 09/24/17 19:19 Ofirmev Injection - IVPB Q6H PRN PAIN LEVEL 1-5 Albuterol/Ipratropium 1 amp 09/30/17 19:13 10/01/17 07:36 Duoneb - NEB 1 amp Q6H PRN Administration SHORTNESS OF BREATH Amino Acids 30 ml 09/25/17 10:00 05/06/18 09:45 Prosource No Carb Liquid Pkt NGT [address] Administration Collagenase 1 applic 10/01/17 13:07 Santyl - TP DAILY [facility] Diphenhydramine HCl 25 mg 09/24/17 19:19 09/28/17 21:52 Benadryl - PO 25 mg Q6H PRN Administration FOR ITCHING Docusate Sodium 100 mg 09/24/17 19:19 Colace Liquid - NGT Q8H PRN CONSTIPATION Fentanyl 25 mcg 09/27/17 14:31 Sublimaze Injection - IVPUSH [id number] PRN PAIN-PACU ORDER X 4 DOSES ONLY Hydralazine HCl 100 mg 09/24/17 22:00 10/01/17 06:26 Apresoline - PO [address] Administration Hydralazine HCl 10 mg 09/24/17 19:19 09/27/17 19:05 Apresoline Injection - IVPUSH 10 mg Q4H PRN Administration HYPERTENSION Isosorbide Mononitrate 30 mg 09/24/17 22:00 09/30/17 22:10 Imdur - PO [address] Administration Labetalol HCl 200 mg 09/24/17 19:19 Normodyne - PO Q2H PRN HYPERTENSION Labetalol HCl 400 mg 09/24/17 22:00 10/01/17 06:26 Normodyne - PO [address] Administration Lacosamide 150 mg 09/24/17 11:57 09/30/17 22:10 Vimpat - PO 150 mg BID ALNE Administration Lacosamide 75 mg 09/26/17 15:00 09/28/17 17:24 Vimpat - PO 75 mg MOWEFR [facility] Administration Multivit/Ca Carb/B Cmplx/FA/Prenat 1 tablet 09/25/17 10:00 09/30/17 09:46 Nephro-Claudia - PO [address] Administration Nifedipine 90 mg 09/24/17 22:00 09/30/17 22:10 Procardia Xl - PO [address] Administration Nystatin 1 applic 09/25/17 00:00 10/01/17 12:05 Mycostatin Cream - TP Not Given Q6HPO [facility] Ondansetron HCl 4 mg 09/27/17 14:32 Zofran Injection IVPUSH Q6H PRN NAUSEA AND/OR VOMITING Sevelamer Carbonate 1,600 mg 09/25/17 08:00 10/01/17 12:05 Renvela - PO 1,[address] Administration ASSESSMENT/PLAN: Patient is a 22 year old male with a significant past medical history of autism , hypertension and seizure disorder. He presents of the ED on 08/29/2017 with c/ o of weakness, diarrhea and increased dyspnea. As per admitting notes, pt was being treated with Keflex for skin infection then developed diarrhea and was given Immodium by family for the diarrhea. Family then noted patient became weaker, had increased dyspnea at rest and had a poor appetite. On admission his creatinine was noted to be 20.5 and was noted to have hypertensive urgency with a low hmg/hct and in electrolyte imbalance of unclear etiology. Hospitalization further complicated when patient required intubation for acute respiratory failure. Imaging: Chest xray 09/25/2017: Right permacath inserted, large heart with dense retrocardiac area. This could represent atelectasis or infiltrate with fluid. There is no sign of pneumothorax. Chest xray 09/29/2017: No significant change from chest xray 09/25/2017. Renal: Acute Kidney Injury requiriging HD Presented with creat of 20.5, now has received dialysis since admission Had mapping on right upper ext. Nephrology following Dialysis today, for AV fistula ID: Leukocytosis improved today Severe Sepsis resolved Left lower lobe infitrate on chest xray Blood cultures pending Given Vanco 1 gram and Levoquin 250mg x 1 for leukocytosis ID following Card: Hypertensive Urgency, resolved On Hydralazine 100mg TID, Isosorbide Mononitrate 30mg PO BID, Labetalol HCL 400mg TID, Procardia 90mg BID Cardiology following Pulm: Pneumonia Loculated Pleural Effusion Acute Hypoxic Respiratory Failure, resolved Chest CT with a large pleural effusion, s/p chest tube s/p L VATS/pneumolysis Tolerating room air with oxygen prn Neuro: Seizures, chronic additional 75mg after HD, On Vimpat 150mg BID Heme: Anemia, low stable Thrombocytopenia, resolved Monitor CBC daily F.E.N. Fluids: PO adequate Electrolytes: monitor with daily labs Nutrition: Renal diet, on Sevelamer Prophy: GI: deferred DVT: SCDs bilaterally Dispositon: full code Visit type - Emergency Visit Emergency Visit: Yes ED Registration Date: 08/29/17 Care time: The patient presented to the Emergency Department on the above date and was hospitalized for further evaluation of their emergent condition. - New Patient This patient is new to me today: No - Critical Care Critical Care patient: No - Discharge Referral Referred to [facility] No
--- NOTE | 2017-10-01 14:17 | PN ---
Progress Note, Physician History of Present Illness: Pt seen and examined at bedside. He is currently getting HD. - Current Medication List Current Medications: Active Medications Acetaminophen (Ofirmev Injection -) 1,000 mg IVPB Q6H PRN PRN Reason: PAIN LEVEL 1-5 Albuterol/Ipratropium (Duoneb -) 1 amp NEB Q6H PRN PRN Reason: SHORTNESS OF BREATH Last Admin: 10/01/17 07:36 Dose: 1 amp Amino Acids (Prosource No Carb Liquid Pkt) 30 ml NGT DAILY [facility] Last Admin: 09/30/17 09:45 Dose: 30 ml Collagenase (Santyl -) 1 applic TP DAILY [facility] Diphenhydramine HCl (Benadryl -) 25 mg PO Q6H PRN PRN Reason: FOR ITCHING Last Admin: 09/28/17 21:52 Dose: 25 mg Docusate Sodium (Colace Liquid -) 100 mg NGT Q8H PRN PRN Reason: CONSTIPATION Fentanyl (Sublimaze Injection -) 25 mcg IVPUSH [id number] PRN PRN Reason: PAIN-PACU ORDER X 4 DOSES ONLY Hydralazine HCl (Apresoline -) 100 mg PO TID [facility] Last Admin: 10/01/17 06:26 Dose: 100 mg Hydralazine HCl (Apresoline Injection -) 10 mg IVPUSH Q4H PRN PRN Reason: HYPERTENSION Last Admin: 09/27/17 19:05 Dose: 10 mg Isosorbide Mononitrate (Imdur -) 30 mg PO BID [facility] Last Admin: 09/30/17 22:10 Dose: 30 mg Labetalol HCl (Normodyne -) 200 mg PO Q2H PRN PRN Reason: HYPERTENSION Labetalol HCl (Normodyne -) 400 mg PO TID [facility] Last Admin: 10/01/17 06:26 Dose: 400 mg Lacosamide (Vimpat -) 150 mg PO BID [facility] Last Admin: 09/30/17 22:10 Dose: 150 mg Lacosamide (Vimpat -) 75 mg PO MOWEFR [facility] Last Admin: 09/28/17 17:24 Dose: 75 mg Multivit/Ca Carb/B Cmplx/FA/Prenat (Nephro-Claudia -) 1 tablet PO DAILY [facility] Last Admin: 09/30/17 09:46 Dose: 1 tablet Nifedipine (Procardia Xl -) 90 mg PO BID [facility] Last Admin: 09/30/17 22:10 Dose: 90 mg Nystatin (Mycostatin Cream -) 1 applic TP Q6HPO [facility] Last Admin: 10/01/17 12:05 Dose: Not Given Ondansetron HCl (Zofran Injection) 4 mg IVPUSH Q6H PRN PRN Reason: NAUSEA AND/OR VOMITING Sevelamer Carbonate (Renvela -) 1,600 mg PO TIDCM [facility] Last Admin: 10/01/17 12:05 Dose: 1,600 mg - Objective Vital Signs: Vital Signs Temperature 98.8 F 10/01/17 10:00 Pulse Rate 98 H 10/01/17 13:15 Respiratory Rate 18 10/01/17 13:15 Blood Pressure 149/80 10/01/17 13:15 O2 Sat by Pulse Oximetry (%) 93 L 10/01/17 12:00 Constitutional: Yes: Calm Eyes: Yes: Conjunctiva Clear HENT: Yes: Atraumatic Neck: Yes: Supple Cardiovascular: Yes: S1, S2 Respiratory: Yes: CTA Bilaterally Gastrointestinal: Yes: Soft Genitourinary: Yes: Incontinence Musculoskeletal: Yes: WNL Edema: No Neurological: Yes: Pre-Existing Deficit Labs: CBC, BMP 10/01/17 07:20 10/01/17 07:20 INR, PTT INR 0.93 (0.82-1.09) 09/26/17 05:40 Fibrinogen 558.0 mg/dL (238-498) H 09/17/17 06:45 Problem List - Problems (1) Acute renal failure Code(s): N17.9 - ACUTE KIDNEY FAILURE, UNSPECIFIED Qualifiers: Acute renal failure type: unspecified Qualified Code(s): N17.9 - Acute kidney failure, unspecified (2) Anemia Code(s): D64.9 - ANEMIA, UNSPECIFIED (3) Hyperkalemia Code(s): E87.5 - HYPERKALEMIA (4) Hypertensive urgency Code(s): I16.0 - HYPERTENSIVE URGENCY (5) Sepsis Code(s): A41.9 - SEPSIS, UNSPECIFIED ORGANISM Qualifiers: Sepsis type: sepsis due to unspecified organism Qualified Code(s): A41.9 - Sepsis, unspecified organism (6) Thrombocytopenia Code(s): D69.6 - THROMBOCYTOPENIA, UNSPECIFIED (7) Seizure Code(s): R56.9 - UNSPECIFIED CONVULSIONS Assessment/Plan Current Medications Generic Name Dose Route Start Last Admin Trade Name Freq PRN Reason Stop Dose Admin Acetaminophen 1,000 mg 09/24/17 19:19 Ofirmev Injection - IVPB Q6H PRN PAIN LEVEL 1-5 Albuterol/Ipratropium 1 amp 09/30/17 19:13 10/01/17 07:36 Duoneb - NEB 1 amp Q6H PRN Administration SHORTNESS OF BREATH Amino Acids 30 ml 09/25/17 10:00 09/30/17 09:45 Prosource No Carb Liquid Pkt NGT [address] Administration Collagenase 1 applic 10/01/17 13:07 Santyl - TP DAILY LANE Diphenhydramine HCl 25 mg 09/24/17 19:19 09/28/17 21:52 Benadryl - PO 25 mg Q6H PRN Administration FOR ITCHING Docusate Sodium 100 mg 09/24/17 19:19 Colace Liquid - NGT Q8H PRN CONSTIPATION Fentanyl 25 mcg 09/27/17 14:31 Sublimaze Injection - IVPUSH [id number] PRN PAIN-PACU ORDER X 4 DOSES ONLY Hydralazine HCl 100 mg 09/24/17 22:00 10/01/17 06:26 Apresoline - PO [address] Administration Hydralazine HCl 10 mg 09/24/17 19:19 09/27/17 19:05 Apresoline Injection - IVPUSH 10 mg Q4H PRN Administration HYPERTENSION Isosorbide Mononitrate 30 mg 09/24/17 22:00 09/30/17 22:10 Imdur - PO [address] Administration Labetalol HCl 200 mg 09/24/17 19:19 Normodyne - PO Q2H PRN HYPERTENSION Labetalol HCl 400 mg 09/24/17 22:00 10/01/17 06:26 Normodyne - PO [address] Administration Lacosamide 150 mg 09/24/17 11:57 09/30/17 22:10 Vimpat - PO [address] Administration Lacosamide 75 mg 09/26/17 15:00 09/28/17 17:24 Vimpat - PO [address] Administration Multivit/Ca Carb/B Cmplx/FA/Prenat 1 tablet 09/25/17 10:00 09/30/17 09:46 Nephro-Claudia - PO [address] Administration Nifedipine 90 mg 09/24/17 22:00 09/30/17 22:10 Procardia Xl - PO [address] Administration Nystatin 1 applic 09/25/17 00:00 10/01/17 12:05 Mycostatin Cream - TP Not Given Q6HPO LANE Ondansetron HCl 4 mg 09/27/17 14:32 Zofran Injection IVPUSH Q6H PRN NAUSEA AND/OR VOMITING Sevelamer Carbonate 1,600 mg 09/25/17 08:00 10/01/17 12:05 Renvela - PO 1,[address] Administration Impression 1. ANNA 2. HTN urgency/emergency 3. hyperkalemia 4. hyponatremia 5. autism 6. hx of seizure 7. anemia 8. CKD 9. lactic acidosis improving 10. thrombocytopenia 11. hyperkalemia 12. pleural effusion 13. acute resp failure requiring intubation 14. ESRD Plan - HD today, pt tolerating - called and discussed prelim biopsy results with pathology, appears kidney disease likely from htn and is end stage - monitor bp - vascular surgery for AV fistula - sent HD info to [facility] - hg stable - vein mapping done Dr Velasquez
[2017-10-01] MEDS: AMINO ACIDS/PROTEIN HYDROLYS 30 ML LIQUID.PKT NGT SCH (15:26)
[2017-10-01] MEDS: ISOSORBIDE MONONITRATE 30 MG TAB.SR.24H (FP) PO SCH ×2 (15:26→21:09)
[2017-10-01] MEDS: NIFEdipine E.R. 90 MG TABLET (FP) PO SCH ×2 (15:26→21:09)
[2017-10-01] MEDS: VITAMIN B COMP W-C 1 EA TABLET PO SCH (15:26)
[2017-10-01] MEDS: LACOSAMIDE 50 MG TABLET PO SCH ×3 (15:27→21:09)
[2017-10-01 16:46] LABS: CREATININE 3.6 mg/dL (0.7-1.3)
--- NOTE | 2017-10-01 17:44 | PN ---
Progress Note, Physician History of Present Illness: Not verbally resposive No acute distress Afebrile Elevated WBC improved No reported N/V/D, malodorous urine chest tube exit site no erythema/ drainage S/P renal bx - Current Medication List Current Medications: Active Medications Acetaminophen (Ofirmev Injection -) 1,000 mg IVPB Q6H PRN PRN Reason: PAIN LEVEL 1-5 Albuterol/Ipratropium (Duoneb -) 1 amp NEB Q6H PRN PRN Reason: SHORTNESS OF BREATH Last Admin: 10/01/17 07:36 Dose: 1 amp Amino Acids (Prosource No Carb Liquid Pkt) 30 ml NGT DAILY [facility] Last Admin: 10/01/17 15:26 Dose: 30 ml Collagenase (Santyl -) 1 applic TP DAILY [facility] Diphenhydramine HCl (Benadryl -) 25 mg PO Q6H PRN PRN Reason: FOR ITCHING Last Admin: 10/01/17 11:00 Dose: 25 mg Docusate Sodium (Colace Liquid -) 100 mg NGT Q8H PRN PRN Reason: CONSTIPATION Fentanyl (Sublimaze Injection -) 25 mcg IVPUSH [id number] PRN PRN Reason: PAIN-PACU ORDER X 4 DOSES ONLY Hydralazine HCl (Apresoline -) 100 mg PO TID [facility] Last Admin: 10/01/17 15:25 Dose: 100 mg Hydralazine HCl (Apresoline Injection -) 10 mg IVPUSH Q4H PRN PRN Reason: HYPERTENSION Last Admin: 09/27/17 19:05 Dose: 10 mg Isosorbide Mononitrate (Imdur -) 30 mg PO BID [facility] Last Admin: 10/01/17 15:26 Dose: 30 mg Labetalol HCl (Normodyne -) 200 mg PO Q2H PRN PRN Reason: HYPERTENSION Labetalol HCl (Normodyne -) 400 mg PO TID [facility] Last Admin: 10/01/17 15:27 Dose: 400 mg Lacosamide (Vimpat -) 150 mg PO BID [facility] Last Admin: 10/01/17 15:27 Dose: 150 mg Lacosamide (Vimpat -) 75 mg PO MOWEFR [facility] Last Admin: 10/01/17 15:27 Dose: 75 mg Multivit/Ca Carb/B Cmplx/FA/Prenat (Nephro-Claudia -) 1 tablet PO DAILY [facility] Last Admin: 10/01/17 15:26 Dose: 1 tablet Nifedipine (Procardia Xl -) 90 mg PO BID [facility] Last Admin: 10/01/17 15:26 Dose: 90 mg Nystatin (Mycostatin Cream -) 1 applic TP Q6HPO [facility] Last Admin: 10/01/17 17:31 Dose: 1 applic Ondansetron HCl (Zofran Injection) 4 mg IVPUSH Q6H PRN PRN Reason: NAUSEA AND/OR VOMITING Sevelamer Carbonate (Renvela -) 1,600 mg PO TIDCM [facility] Last Admin: 10/01/17 17:31 Dose: 1,600 mg - Objective Vital Signs: Vital Signs Temperature 98.9 F 10/01/17 14:20 Pulse Rate 97 H 10/01/17 15:00 Respiratory Rate 18 10/01/17 15:00 Blood Pressure 150/76 10/01/17 15:00 O2 Sat by Pulse Oximetry (%) 93 L 10/01/17 12:00 Constitutional: Yes: No Distress Cardiovascular: Yes: Regular Rate and Rhythm, S1, S2 Respiratory: Yes: Diminished Gastrointestinal: Yes: Normal Bowel Sounds, Soft. No: Tenderness Labs: CBC, BMP 10/01/17 07:20 10/01/17 15:00 INR, PTT INR 0.93 (0.82-1.09) 09/26/17 05:40 Fibrinogen 558.0 mg/dL (238-498) H 09/17/17 06:45 Assessment/Plan Leukocytosis ? source Cephalosporin allergy ESRD Await c/s Redose Vancomycin 1gm x1 If continued leukocytosis, CT A/P ( s/p renal bx) Discussed with mother at bedside
[2017-10-01] MEDS ORDERED: VANCOMYCIN 1 GM PREMIX - 1 GM/200 ML BAG IVPB ONE (18:00)
[2017-10-01] MEDS ORDERED: ACETAMINOPHEN 325 MG TABLET (FP) PO PRN (20:52)
[2017-10-02] MEDS: diphenhydrAMINE HCL 25 MG CAPSULE (FP) PO PRN (00:30)
[2017-10-02] MEDS: LABETALOL HCL 200 MG TABLET (FP) PO SCH ×3 (05:36→21:47)
[2017-10-02] MEDS: hydrALAZINE HCL 50 MG TABLET (FP) PO SCH ×3 (05:36→21:46)
[2017-10-02] MEDS: NYSTATIN 100,000 UNIT/GM TOPICAL CREAM 15 GM TUBE TP SCH ×4 (05:38→23:02)
[2017-10-02] MEDS: SEVELAMER CARBONATE 800 MG TAB (FP) PO SCH ×3 (08:28→17:06)
[2017-10-02] MEDS: ALBUTEROL SO4 2.5/IPRATROPIUM 0.5 INH SOL 3 ML VIAL.NEB. NEB PRN (08:40)
[2017-10-02] MEDS: NIFEdipine E.R. 90 MG TABLET (FP) PO SCH ×2 (09:39→21:46)
[2017-10-02] MEDS: ISOSORBIDE MONONITRATE 30 MG TAB.SR.24H (FP) PO SCH ×2 (09:39→21:46)
[2017-10-02] MEDS: LACOSAMIDE 50 MG TABLET PO SCH ×2 (09:39→21:47)
[2017-10-02] MEDS: AMINO ACIDS/PROTEIN HYDROLYS 30 ML LIQUID.PKT NGT SCH (09:40)
[2017-10-02] MEDS: VITAMIN B COMP W-C 1 EA TABLET PO SCH (09:40)
[2017-10-02] MEDS ORDERED: COLLAGENASE CLOSTRIDIUM HIST. 30 GRAMS TUBE TP SCH (10:00)
[2017-10-02 11:22] LABS: BASO % 0.4 % (0-2.0); EOS % 2.5 % (0-4.5); HEMATOCRIT 26.4 % (35.4-49); LYMPH % 21.9 % (8-40); MCH 29.8 pg (25.7-33.7); MEAN CELL VOLUME 87.6 fl (80-96); MEAN PLT VOLUME 7.4 fl (7.5-11.1); MONO % 7.5 % (3.8-10.2); NEUT % 67.7 % (42.8-82.8); PLATELET COUNT 298 K/MM3 (134-434); RBC 3.01 M/mm3 (4.00-5.60); RDW 14.1 % (11.9-15.9)
--- NOTE | 2017-10-02 12:23 | PN ---
Progress Note, Physician History of Present Illness: PULMONARY ALERT,NAD,-CONGESTION - Current Medication List Current Medications: Active Medications Acetaminophen (Ofirmev Injection -) 1,000 mg IVPB Q6H PRN PRN Reason: PAIN LEVEL 1-5 Acetaminophen (Tylenol -) 650 mg PO Q6H PRN PRN Reason: FEVER Last Admin: 10/01/17 21:09 Dose: 650 mg Albuterol/Ipratropium (Duoneb -) 1 amp NEB Q6H PRN PRN Reason: SHORTNESS OF BREATH Last Admin: 10/02/17 08:40 Dose: 1 amp Amino Acids (Prosource No Carb Liquid Pkt) 30 ml NGT DAILY [facility] Last Admin: 10/02/17 09:40 Dose: Not Given Collagenase (Santyl -) 1 applic TP DAILY [facility] Last Admin: 10/02/17 09:40 Dose: 1 applic Diphenhydramine HCl (Benadryl -) 25 mg PO Q6H PRN PRN Reason: FOR ITCHING Last Admin: 10/02/17 00:30 Dose: 25 mg Docusate Sodium (Colace Liquid -) 100 mg NGT Q8H PRN PRN Reason: CONSTIPATION Hydralazine HCl (Apresoline -) 100 mg PO TID [facility] Last Admin: 10/02/17 05:36 Dose: 100 mg Hydralazine HCl (Apresoline Injection -) 10 mg IVPUSH Q4H PRN PRN Reason: HYPERTENSION Last Admin: 09/27/17 19:05 Dose: 10 mg Isosorbide Mononitrate (Imdur -) 30 mg PO BID [facility] Last Admin: 10/02/17 09:39 Dose: 30 mg Labetalol HCl (Normodyne -) 200 mg PO Q2H PRN PRN Reason: HYPERTENSION Labetalol HCl (Normodyne -) 400 mg PO TID [facility] Last Admin: 10/02/17 05:36 Dose: 400 mg Lacosamide (Vimpat -) 150 mg PO BID [facility] Last Admin: 10/02/17 09:39 Dose: 150 mg Lacosamide (Vimpat -) 75 mg PO MOWEFR [facility] Last Admin: 10/01/17 15:27 Dose: 75 mg Multivit/Ca Carb/B Cmplx/FA/Prenat (Nephro-Claudia -) 1 tablet PO DAILY [facility] Last Admin: 10/02/17 09:40 Dose: 1 tablet Nifedipine (Procardia Xl -) 90 mg PO BID [facility] Last Admin: 10/02/17 09:39 Dose: 90 mg Nystatin (Mycostatin Cream -) 1 applic TP Q6HPO [facility] Last Admin: 10/02/17 05:38 Dose: 1 applic Ondansetron HCl (Zofran Injection) 4 mg IVPUSH Q6H PRN PRN Reason: NAUSEA AND/OR VOMITING Sevelamer Carbonate (Renvela -) 1,600 mg PO TIDCM [facility] Last Admin: 10/02/17 08:28 Dose: 1,600 mg - Objective Vital Signs: Vital Signs Temperature 98.7 F 10/02/17 06:00 Pulse Rate 96 H 10/02/17 06:00 Respiratory Rate 20 10/02/17 06:00 Blood Pressure 140/70 10/02/17 06:00 O2 Sat by Pulse Oximetry (%) 92 L 10/01/17 22:00 Constitutional: Yes: Well Nourished, Calm Eyes: Yes: WNL HENT: Yes: WNL Neck: Yes: WNL Cardiovascular: Yes: Regular Rate and Rhythm, S1, S2 Respiratory: Yes: Diminished Gastrointestinal: Yes: Normal Bowel Sounds, Soft Extremities: Yes: WNL Edema: No Labs: CBC, BMP 10/02/17 10:35 10/01/17 15:00 INR, PTT INR 0.93 (0.82-1.09) 09/26/17 05:40 Fibrinogen 558.0 mg/dL (238-498) H 09/17/17 06:45 Problem List - Problems (1) Respiratory failure Code(s): J96.90 - RESPIRATORY FAILURE, UNSP, UNSP W HYPOXIA OR HYPERCAPNIA (2) Acute renal failure Code(s): N17.9 - ACUTE KIDNEY FAILURE, UNSPECIFIED Qualifiers: Acute renal failure type: unspecified Qualified Code(s): N17.9 - Acute kidney failure, unspecified (3) Anemia Code(s): D64.9 - ANEMIA, UNSPECIFIED (4) Autism Code(s): F84.0 - AUTISTIC DISORDER (5) Hypertensive urgency Code(s): I16.0 - HYPERTENSIVE URGENCY (6) Pneumonia Code(s): J18.9 - PNEUMONIA, UNSPECIFIED ORGANISM Qualifiers: Pneumonia type: due to unspecified organism Laterality: unspecified laterality Lung location: unspecified part of lung Qualified Code(s): J18.9 - Pneumonia, unspecified organism Assessment/Plan A/P Hypertensive Urgency resolved Acute Kidney Injury requiring HD Acute Hypoxic Respiratory Failure improved Pneumonia Loculated Pleural Effusion s/p L VATS/pneumolysis Severe Sepsis resolved Lactic Acidosis resolved Thrombocytopenia improved Anemia Autism - antibiotics as per ID - HD per renal - monitor H/H - monitor urine output, creatinine - BP control - O2 - PO as tolerated - DVT/GI prophylaxis DR WALSH
--- NOTE | 2017-10-02 13:53 | PN ---
Physical Exam: SUBJECTIVE: Patient seen and examined. low grade fever last night. Spent time oob to wheelchair today, now resting. Mother at bedside. OBJECTIVE: Vital Signs Period Temp Pulse Resp BP Sys/Mora Pulse Ox Last 24 Hr 98.7 F-100.5 F 94-100 18-20 140-155/70-77 92-92 PE Neuro: awake, alert, NAD Pulm: clear anteriorly CV: s1 s2 rrr no mrg Abd: s nt nd +bs Ext: warm, no le edema Access: RCW permacath Laboratory Results - last 24 hr 10/01/17 10/02/17 15:00 10:35 WBC 9.0 RBC 3.01 L Hgb 9.0 L Hct 26.4 L MCV 87.6 MCH 29.8 MCHC 34.0 RDW 14.1 Plt Count 298 MPV 7.4 L Neutrophils % 67.7 Lymphocytes % 21.9 D Monocytes % 7.5 Eosinophils % 2.5 Basophils % 0.4 BUN 13 D Creatinine 3.6 H D Active Medications Generic Name Dose Route Start Last Admin Trade Name Franko PRN Reason Stop Dose Admin Acetaminophen 1,000 mg 09/24/17 19:19 Ofirmev Injection - IVPB Q6H PRN PAIN LEVEL 1-5 Acetaminophen 650 mg 10/01/17 20:52 10/01/17 21:09 Tylenol - PO 650 mg Q6H PRN Administration FEVER Albuterol/Ipratropium 1 amp 09/30/17 19:13 10/02/17 08:40 Duoneb - NEB 1 amp Q6H PRN Administration SHORTNESS OF BREATH Amino Acids 30 ml 09/25/17 10:00 10/02/17 09:40 Prosource No Carb Liquid Pkt NGT Not Given DAILY LANE Collagenase 1 applic 10/01/17 13:07 10/02/17 09:40 Santyl - TP [address] Administration Diphenhydramine HCl 25 mg 09/24/17 19:19 10/02/17 00:30 Benadryl - PO 25 mg Q6H PRN Administration FOR ITCHING Docusate Sodium 100 mg 09/24/17 19:19 Colace Liquid - NGT Q8H PRN CONSTIPATION Hydralazine HCl 100 mg 09/24/17 22:00 10/02/17 05:36 Apresoline - PO [address] Administration Hydralazine HCl 10 mg 09/24/17 19:19 09/27/17 19:05 Apresoline Injection - IVPUSH 10 mg Q4H PRN Administration HYPERTENSION Isosorbide Mononitrate 30 mg 09/24/17 22:00 10/02/17 09:39 Imdur - PO [address] Administration Labetalol HCl 200 mg 09/24/17 19:19 Normodyne - PO Q2H PRN HYPERTENSION Labetalol HCl 400 mg 09/24/17 22:00 10/02/17 05:36 Normodyne - PO [address] Administration Lacosamide 150 mg 09/24/17 11:57 10/02/17 09:39 Vimpat - PO [address] Administration Lacosamide 75 mg 09/26/17 15:00 10/01/17 15:27 Vimpat - PO [address] Administration Multivit/Ca Carb/B Cmplx/FA/Prenat 1 tablet 09/25/17 10:00 10/02/17 09:40 Nephro-Claudia - PO [address] Administration Nifedipine 90 mg 09/24/17 22:00 10/02/17 09:39 Procardia Xl - PO [address] Administration Nystatin 1 applic 09/25/17 00:00 10/02/17 05:38 Mycostatin Cream - TP [address] Administration Ondansetron HCl 4 mg 09/27/17 14:32 Zofran Injection IVPUSH Q6H PRN NAUSEA AND/OR VOMITING Sevelamer Carbonate 1,600 mg 09/25/17 08:00 10/02/17 12:25 Renvela - PO 1,[address] Administration Assessment: 22 year old male with PMHx of HTN, autism, epilepsy, who presented to the ED with diarrhea and increased dyspnea and was found to have hypertensive emergency, ANNA, pneumonia with a complicated hospital course including acute respiratory failure requiring intubation and a persistent left pleural effusion, s/p thoracentesis 09/02, s/p pigtail 09/04, then requiring vats and pneumolysis on 09/17 with chest tubes, now pulled. Permacath in place, awaiting AVF. Plan: 1. Acute hypoxic respiratory failure, large left pleural effusion - Resolved - S/p bronchoscopy/left VATS/drainage of effusion/pneumolysis 09/17 2. New leukocytosis, s/p severe sepsis 2/2 pneumonia - WBC wnl - BC NGTD s/p vanco/levaquin x1 3. ANNA, ESRD MWF - Pre moreno results indicating kidney disease from htn - HD per renal - Outpt HD with [facility] - Awaiting AVF placement 4. Hypertensive emergency - Continue Hydralazine - Continue Imdur - Continue Labetolol - Continue Procardia Xl 5. Epilepsy - On day of dialysis pt to receive additional 75mg after HD - Continue increased Vimpat 150mg BID 6. Ppx - Heparin 5,000u sq bid CODE STATUS: FULL CODE Visit type - Emergency Visit Emergency Visit: Yes ED Registration Date: 08/29/17 Care time: The patient presented to the Emergency Department on the above date and was hospitalized for further evaluation of their emergent condition. - New Patient This patient is new to me today: No - Critical Care Critical Care patient: No
--- NOTE | 2017-10-02 14:58 | PN ---
Progress Note, Physician History of Present Illness: Pt seen and examined at bedside. He appears comfortable. - Current Medication List Current Medications: Active Medications Acetaminophen (Ofirmev Injection -) 1,000 mg IVPB Q6H PRN PRN Reason: PAIN LEVEL 1-5 Acetaminophen (Tylenol -) 650 mg PO Q6H PRN PRN Reason: FEVER Last Admin: 10/01/17 21:09 Dose: 650 mg Albuterol/Ipratropium (Duoneb -) 1 amp NEB Q6H PRN PRN Reason: SHORTNESS OF BREATH Last Admin: 10/02/17 08:40 Dose: 1 amp Amino Acids (Prosource No Carb Liquid Pkt) 30 ml NGT DAILY [facility] Last Admin: 10/02/17 09:40 Dose: Not Given Diphenhydramine HCl (Benadryl -) 25 mg PO Q6H PRN PRN Reason: FOR ITCHING Last Admin: 10/02/17 00:30 Dose: 25 mg Docusate Sodium (Colace Liquid -) 100 mg NGT Q8H PRN PRN Reason: CONSTIPATION Hydralazine HCl (Apresoline -) 100 mg PO TID [facility] Last Admin: 10/02/17 05:36 Dose: 100 mg Hydralazine HCl (Apresoline Injection -) 10 mg IVPUSH Q4H PRN PRN Reason: HYPERTENSION Last Admin: 09/27/17 19:05 Dose: 10 mg Isosorbide Mononitrate (Imdur -) 30 mg PO BID [facility] Last Admin: 10/02/17 09:39 Dose: 30 mg Labetalol HCl (Normodyne -) 200 mg PO Q2H PRN PRN Reason: HYPERTENSION Labetalol HCl (Normodyne -) 400 mg PO TID [facility] Last Admin: 10/02/17 05:36 Dose: 400 mg Lacosamide (Vimpat -) 150 mg PO BID [facility] Last Admin: 10/02/17 09:39 Dose: 150 mg Lacosamide (Vimpat -) 75 mg PO MOWEFR [facility] Last Admin: 10/01/17 15:27 Dose: 75 mg Multivit/Ca Carb/B Cmplx/FA/Prenat (Nephro-Claudia -) 1 tablet PO DAILY [facility] Last Admin: 10/02/17 09:40 Dose: 1 tablet Nifedipine (Procardia Xl -) 90 mg PO BID [facility] Last Admin: 10/02/17 09:39 Dose: 90 mg Nystatin (Mycostatin Cream -) 1 applic TP Q6HPO [facility] Last Admin: 10/02/17 05:38 Dose: 1 applic Ondansetron HCl (Zofran Injection) 4 mg IVPUSH Q6H PRN PRN Reason: NAUSEA AND/OR VOMITING Sevelamer Carbonate (Renvela -) 1,600 mg PO TIDCM [facility] Last Admin: 10/02/17 12:25 Dose: 1,600 mg - Objective Vital Signs: Vital Signs Temperature 98.7 F 10/02/17 06:00 Pulse Rate 96 H 10/02/17 06:00 Respiratory Rate 20 10/02/17 06:00 Blood Pressure 140/70 10/02/17 06:00 O2 Sat by Pulse Oximetry (%) 92 L 10/01/17 22:00 Constitutional: Yes: Calm Eyes: Yes: Conjunctiva Clear HENT: Yes: Atraumatic Neck: Yes: Supple Cardiovascular: Yes: S1, S2 Respiratory: Yes: CTA Bilaterally Gastrointestinal: Yes: Soft Genitourinary: Yes: Incontinence Musculoskeletal: Yes: WNL Edema: No Integumentary: Yes: WNL Neurological: Yes: Pre-Existing Deficit Labs: CBC, BMP 10/02/17 10:35 10/01/17 15:00 INR, PTT INR 0.93 (0.82-1.09) 09/26/17 05:40 Fibrinogen 558.0 mg/dL (238-498) H 09/17/17 06:45 Problem List - Problems (1) Acute renal failure Code(s): N17.9 - ACUTE KIDNEY FAILURE, UNSPECIFIED Qualifiers: Acute renal failure type: unspecified Qualified Code(s): N17.9 - Acute kidney failure, unspecified (2) Anemia Code(s): D64.9 - ANEMIA, UNSPECIFIED (3) Hyperkalemia Code(s): E87.5 - HYPERKALEMIA (4) Hypertensive urgency Code(s): I16.0 - HYPERTENSIVE URGENCY (5) Sepsis Code(s): A41.9 - SEPSIS, UNSPECIFIED ORGANISM Qualifiers: Sepsis type: sepsis due to unspecified organism Qualified Code(s): A41.9 - Sepsis, unspecified organism (6) Thrombocytopenia Code(s): D69.6 - THROMBOCYTOPENIA, UNSPECIFIED (7) Seizure Code(s): R56.9 - UNSPECIFIED CONVULSIONS Assessment/Plan Current Medications Generic Name Dose Route Start Last Admin Trade Name Freq PRN Reason Stop Dose Admin Acetaminophen 1,000 mg 09/24/17 19:19 Ofirmev Injection - IVPB Q6H PRN PAIN LEVEL 1-5 Acetaminophen 650 mg 10/01/17 20:52 10/01/17 21:09 Tylenol - PO 650 mg Q6H PRN Administration FEVER Albuterol/Ipratropium 1 amp 09/30/17 19:13 10/02/17 08:40 Duoneb - NEB 1 amp Q6H PRN Administration SHORTNESS OF BREATH Amino Acids 30 ml 09/25/17 10:00 10/02/17 09:40 Prosource No Carb Liquid Pkt NGT Not Given DAILY LANE Diphenhydramine HCl 25 mg 09/24/17 19:19 10/02/17 00:30 Benadryl - PO 25 mg Q6H PRN Administration FOR ITCHING Docusate Sodium 100 mg 09/24/17 19:19 Colace Liquid - NGT Q8H PRN CONSTIPATION Hydralazine HCl 100 mg 09/24/17 22:00 10/02/17 05:36 Apresoline - PO [address] Administration Hydralazine HCl 10 mg 09/24/17 19:19 09/27/17 19:05 Apresoline Injection - IVPUSH 10 mg Q4H PRN Administration HYPERTENSION Isosorbide Mononitrate 30 mg 09/24/17 22:00 10/02/17 09:39 Imdur - PO [address] Administration Labetalol HCl 200 mg 09/24/17 19:19 Normodyne - PO Q2H PRN HYPERTENSION Labetalol HCl 400 mg 09/24/17 22:00 10/02/17 05:36 Normodyne - PO [address] Administration Lacosamide 150 mg 09/24/17 11:57 10/02/17 09:39 Vimpat - PO [address] Administration Lacosamide 75 mg 09/26/17 15:00 10/01/17 15:27 Vimpat - PO [address] Administration Multivit/Ca Carb/B Cmplx/FA/Prenat 1 tablet 09/25/17 10:00 10/02/17 09:40 Nephro-Claudia - PO [address] Administration Nifedipine 90 mg 09/24/17 22:00 10/02/17 09:39 Procardia Xl - PO [address] Administration Nystatin 1 applic 09/25/17 00:00 10/02/17 05:38 Mycostatin Cream - TP [address] Administration Ondansetron HCl 4 mg 09/27/17 14:32 Zofran Injection IVPUSH Q6H PRN NAUSEA AND/OR VOMITING Sevelamer Carbonate 1,600 mg 09/25/17 08:00 10/02/17 12:25 Renvela - PO 1,[address] Administration Impression 1. ANNA 2. HTN urgency/emergency 3. hyperkalemia 4. hyponatremia 5. autism 6. hx of seizure 7. anemia 8. CKD 9. lactic acidosis improving 10. thrombocytopenia 11. hyperkalemia 12. pleural effusion 13. acute resp failure requiring intubation 14. ESRD Plan - vascular for av fistula - HD in am - epogen for anemia - cont prosource - sent HD info to [facility] - hg stable - vein mapping done Dr Velasquez
--- NOTE | 2017-10-02 15:29 | PN ---
Progress Note, Physician History of Present Illness: Not verbally resposive. Awake. No acute distress No acute distress Low grade temp WBC improved WNL No reported N/V/D, malodorous urine chest tube exit site no erythema/ drainage S/P renal bx - Current Medication List Current Medications: Active Medications Acetaminophen (Ofirmev Injection -) 1,000 mg IVPB Q6H PRN PRN Reason: PAIN LEVEL 1-5 Acetaminophen (Tylenol -) 650 mg PO Q6H PRN PRN Reason: FEVER Last Admin: 10/01/17 21:09 Dose: 650 mg Albuterol/Ipratropium (Duoneb -) 1 amp NEB Q6H PRN PRN Reason: SHORTNESS OF BREATH Last Admin: 10/02/17 08:40 Dose: 1 amp Amino Acids (Prosource No Carb Liquid Pkt) 30 ml NGT DAILY [facility] Last Admin: 10/02/17 09:40 Dose: Not Given Diphenhydramine HCl (Benadryl -) 25 mg PO Q6H PRN PRN Reason: FOR ITCHING Last Admin: 10/02/17 00:30 Dose: 25 mg Docusate Sodium (Colace Liquid -) 100 mg NGT Q8H PRN PRN Reason: CONSTIPATION Epoetin Mir (Epogen -) 7,000 unit IVPUSH ONCE ONE Stop: 10/03/17 14:59 Hydralazine HCl (Apresoline -) 100 mg PO TID [facility] Last Admin: 10/02/17 15:08 Dose: 100 mg Hydralazine HCl (Apresoline Injection -) 10 mg IVPUSH Q4H PRN PRN Reason: HYPERTENSION Last Admin: 09/27/17 19:05 Dose: 10 mg Levofloxacin (Levaquin 250 Mg Premixed Ivpb -) 250 mg in 50 mls @ 50 mls/hr IVPB Q2D@[address] PRN Reason: Protocol Sodium Chloride (Normal Saline -) 250 mls @ 3,000 mls/hr IV PRN PRN PRN Reason: Hypotension during Dialysis Stop: 10/03/17 14:58 Isosorbide Mononitrate (Imdur -) 30 mg PO BID [facility] Last Admin: 10/02/17 09:39 Dose: 30 mg Labetalol HCl (Normodyne -) 200 mg PO Q2H PRN PRN Reason: HYPERTENSION Labetalol HCl (Normodyne -) 400 mg PO TID [facility] Last Admin: 10/02/17 15:15 Dose: 400 mg Lacosamide (Vimpat -) 150 mg PO BID [facility] Last Admin: 10/02/17 09:39 Dose: 150 mg Lacosamide (Vimpat -) 75 mg PO MOWEFR [facility] Last Admin: 10/01/17 15:27 Dose: 75 mg Multivit/Ca Carb/B Cmplx/FA/Prenat (Nephro-Clauida -) 1 tablet PO DAILY [facility] Last Admin: 10/02/17 09:40 Dose: 1 tablet Nifedipine (Procardia Xl -) 90 mg PO BID [facility] Last Admin: 10/02/17 09:39 Dose: 90 mg Nystatin (Mycostatin Cream -) 1 applic TP Q6HPO [facility] Last Admin: 10/02/17 13:15 Dose: 1 applic Ondansetron HCl (Zofran Injection) 4 mg IVPUSH Q6H PRN PRN Reason: NAUSEA AND/OR VOMITING Sevelamer Carbonate (Renvela -) 1,600 mg PO TIDCM [facility] Last Admin: 10/02/17 12:25 Dose: 1,600 mg - Objective Vital Signs: Vital Signs Temperature 98.7 F 10/02/17 06:00 Pulse Rate 96 H 10/02/17 06:00 Respiratory Rate 20 10/02/17 06:00 Blood Pressure 140/70 10/02/17 06:00 O2 Sat by Pulse Oximetry (%) 92 L 10/01/17 22:00 Constitutional: Yes: No Distress Eyes: Yes: Conjunctiva Clear Cardiovascular: Yes: Regular Rate and Rhythm, S1, S2 Respiratory: Yes: Diminished Gastrointestinal: Yes: Normal Bowel Sounds, Soft. No: Tenderness Labs: CBC, BMP 10/02/17 10:35 10/01/17 15:00 INR, PTT INR 0.93 (0.82-1.09) 09/26/17 05:40 Fibrinogen 558.0 mg/dL (238-498) H 09/17/17 06:45 Assessment/Plan Leukocytosis ? source resolved Low grade fever Cephalosporin allergy ESRD Await c/s Redosed Vancomycin yesterday Continue levaquin, adjusted for ESRD If continued leukocytosis/ fever CT A/P ( s/p renal bx) Discussed with mother at bedside
--- NOTE | 2017-10-02 15:31 | PN ---
Progress Note (short form) - Note Progress Note: Discussed with Dr. Morales, vein mapping noted, will try left arm AV fistula.
[2017-10-02] MEDS: COLLAGENASE CLOSTRIDIUM HIST. 30 GRAMS TUBE TP SCH (19:49)
[2017-10-02] MEDS ORDERED: PT OWN MED DRAWER 7, Y5N ONE (21:06)
[2017-10-03] MEDS: hydrALAZINE HCL 50 MG TABLET (FP) PO SCH ×3 (05:59→21:18)
[2017-10-03] MEDS: LABETALOL HCL 200 MG TABLET (FP) PO SCH ×3 (05:59→21:17)
[2017-10-03] MEDS: NYSTATIN 100,000 UNIT/GM TOPICAL CREAM 15 GM TUBE TP SCH ×2 (06:00→16:50)
[2017-10-03] MEDS: diphenhydrAMINE HCL 25 MG CAPSULE (FP) PO PRN (07:33)
[2017-10-03] MEDS ORDERED: SODIUM CHLORIDE 250 ML IV PRN (08:00)
[2017-10-03] MEDS ORDERED: EPOETIN ALFA 3,000 UNIT, EPOETIN ALFA 4,000 UNIT IVPUSH ONE (08:00)
[2017-10-03 09:23] LABS: BASO % 0.6 % (0-2.0); EOS % 3.1 % (0-4.5); HEMATOCRIT 24.4 % (35.4-49); HEMOGLOBIN 8.2 GM/dL (11.7-16.9); LYMPH % 30.8 % (8-40); MCH 29.5 pg (25.7-33.7); MCHC 33.7 g/dl (32.0-35.9); MEAN CELL VOLUME 87.6 fl (80-96); MEAN PLT VOLUME 7.7 fl (7.5-11.1); MONO % 7.2 % (3.8-10.2); NEUT % 58.3 % (42.8-82.8); PLATELET COUNT 286 K/MM3 (134-434); RBC 2.78 M/mm3 (4.00-5.60); WHITE BLOOD COUNT 8.4 K/mm3 (4.0-10.0)
[2017-10-03 10:14] LABS: CHLORIDE 98 mmol/L (98-107); POTASSIUM 4.2 mmol/L (3.5-5.1); SODIUM 138 mmol/L (136-145)
[2017-10-03 10:53] LABS: ANION GAP 15 (8-16); BLOOD UREA NITROGEN 38 mg/dL (7-18); CALCIUM 8.5 mg/dL (8.5-10.1); CO2 25 mmol/L (21-32); GLUCOSE,RANDOM 81 mg/dL (74-106)
[2017-10-03 10:57] LABS: CREATININE 8.9 mg/dL (0.7-1.3)
--- NOTE | 2017-10-03 11:42 | PN ---
Progress Note (short form) - Note Progress Note: CC: htn urgency S: pt does not communicate well. appears comfortable. no overnight events. o: Current Medications Generic Name Dose Route Start Last Admin Trade Name Freq PRN Reason Stop Dose Admin Acetaminophen 1,000 mg 09/24/17 19:19 Ofirmev Injection - IVPB Q6H PRN PAIN LEVEL 1-5 Acetaminophen 650 mg 10/01/17 20:52 10/01/17 21:09 Tylenol - PO 650 mg Q6H PRN Administration FEVER Albuterol/Ipratropium 1 amp 09/30/17 19:13 10/02/17 08:40 Duoneb - NEB 1 amp Q6H PRN Administration SHORTNESS OF BREATH Amino Acids 30 ml 09/25/17 10:00 10/02/17 09:40 Prosource No Carb Liquid Pkt NGT Not Given DAILY LANE Collagenase 1 applic 10/02/17 16:00 10/02/17 19:49 Santyl - TP Not Given DAILY LANE Diphenhydramine HCl 25 mg 09/24/17 19:19 10/03/17 07:33 Benadryl - PO 25 mg Q6H PRN Administration FOR ITCHING Docusate Sodium 100 mg 09/24/17 19:19 Colace Liquid - NGT Q8H PRN CONSTIPATION Hydralazine HCl 100 mg 09/24/17 22:00 10/03/17 05:59 Apresoline - PO [address] Administration Hydralazine HCl 10 mg 09/24/17 19:19 09/27/17 19:05 Apresoline Injection - IVPUSH 10 mg Q4H PRN Administration HYPERTENSION Levofloxacin 250 mg in 50 mls @ 50 mls/hr 10/03/17 16:00 Levaquin 250 Mg Premixed Ivpb - IVPB Q2D@1000 [facility] Protocol Isosorbide Mononitrate 30 mg 09/24/17 22:00 10/02/17 21:46 Imdur - PO [address] Administration Labetalol HCl 200 mg 09/24/17 19:19 Normodyne - PO Q2H PRN HYPERTENSION Labetalol HCl 400 mg 09/24/17 22:00 10/03/17 05:59 Normodyne - PO [address] Administration Lacosamide 150 mg 09/24/17 11:57 10/02/17 21:47 Vimpat - PO [address] Administration Lacosamide 75 mg 09/26/17 15:00 10/01/17 15:27 Vimpat - PO [address] Administration Multivit/Ca Carb/B Cmplx/FA/Prenat 1 tablet 09/25/17 10:00 10/02/17 09:40 Nephro-Claudia - PO [address] Administration Nifedipine 90 mg 09/24/17 22:00 10/02/17 21:46 Procardia Xl - PO [address] Administration Nystatin 1 applic 09/25/17 00:00 10/03/17 06:00 Mycostatin Cream - TP [address] Administration Ondansetron HCl 4 mg 09/27/17 14:32 Zofran Injection IVPUSH Q6H PRN NAUSEA AND/OR VOMITING Sevelamer Carbonate 1,600 mg 09/25/17 08:00 10/02/17 17:06 Renvela - PO 1,[address] Administration Vital Signs Period Temp Pulse Resp BP Sys/Mora Pulse Ox Last 24 Hr 98.3 F-98.9 F 88-100 16-20 135-175/70-98 95 nad, calm nad no jvd rrr s1 s2 no mrg cta bl nl effort. no jaundice diaphoresis trace le edema bl abd nd pos bs CBC, BMP 10/03/17 07:00 10/03/17 07:00 echo 08/2017: nl lv/rv, no sig valve path a/p: 22 m hx autism, seizures, possible underlying ckd/htn here with ams, respiratory failure/sepsis, anna requiring HD and hypertensive urgency. Cardiac course complicated by mild troponin elevation and prolonged qtc. 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 was uncontrolled when here 12/11 for seizure, with agitation then--no BP checked since that discharge she says -has had difficult to control BP here, requiring nifedipine and labetalol drips (the latter up to 2mg/min, i.e. 2800 mg/day, without good bp control) 09/14: increased hydralzine to 100 tid and add imdur 30 qd -09/15: BP severely elevated again this am (220/100). change nifedip 120 qd to 90 bid to cover overnight/early AM bp's (very short-acting med). change coreg to labetalol 400 TID for greater potency (with prn PO doses ordered), will likely need closer to 600-800 TID labetlol, will titrate up as needed -BP much improved, continue current regimen -will plan to try to cut down nifedipine dose (to 60 bid) +/- hydralazine dose later, if bp remains well controlled. -deferring RAAS-blockers for now given ANNA with renal w/u ongoing anna requiring HD: -creat 2.1 here in november, ? no prior w/u per mother -suspect hypertensive renal failure, progressive since then, though possible causality in other direction (no MD f/u since november, per mother) -renal eval in progress. biopsy done. -getting HD here, plans for avf this week abnormal troponins - flat trend, with intermediate range values - secondary to sepsis myocardial injury, vs demand ischemia (severe HTN, with tachycardia to 120s-130s). no clinical findings to support acs here. anemia: -chronic, mgm't per primary team respiratory failure s/p intubation (resolved), pleural effusion - with white out of left lung - 09/04 s/p chest tube placement. - plan per critical care/thoracic surgery--s/p Bronchoscopy, left VATS, drainage of effusion, pneumolysis 09/17. now with chest tube x 2. - 09/20 one chest tube removed. - 09/21 second chest tube removed. - still with residual retrocardiac opacity, pulm following.
--- NOTE | 2017-10-03 11:51 | PN ---
Progress Note, Physician History of Present Illness: Pt seen and examined at bedside. He is currently getting HD. He is calm. - Current Medication List Current Medications: Active Medications Acetaminophen (Ofirmev Injection -) 1,000 mg IVPB Q6H PRN PRN Reason: PAIN LEVEL 1-5 Acetaminophen (Tylenol -) 650 mg PO Q6H PRN PRN Reason: FEVER Last Admin: 10/01/17 21:09 Dose: 650 mg Albuterol/Ipratropium (Duoneb -) 1 amp NEB Q6H PRN PRN Reason: SHORTNESS OF BREATH Last Admin: 10/02/17 08:40 Dose: 1 amp Amino Acids (Prosource No Carb Liquid Pkt) 30 ml NGT DAILY [facility] Last Admin: 10/02/17 09:40 Dose: Not Given Collagenase (Santyl -) 1 applic TP DAILY [facility] Last Admin: 10/02/17 19:49 Dose: Not Given Diphenhydramine HCl (Benadryl -) 25 mg PO Q6H PRN PRN Reason: FOR ITCHING Last Admin: 10/03/17 07:33 Dose: 25 mg Docusate Sodium (Colace Liquid -) 100 mg NGT Q8H PRN PRN Reason: CONSTIPATION Hydralazine HCl (Apresoline -) 100 mg PO TID [facility] Last Admin: 10/03/17 05:59 Dose: 100 mg Hydralazine HCl (Apresoline Injection -) 10 mg IVPUSH Q4H PRN PRN Reason: HYPERTENSION Last Admin: 09/27/17 19:05 Dose: 10 mg Levofloxacin (Levaquin 250 Mg Premixed Ivpb -) 250 mg in 50 mls @ 50 mls/hr IVPB Q2D@[address] PRN Reason: Protocol Isosorbide Mononitrate (Imdur -) 30 mg PO BID [facility] Last Admin: 10/02/17 21:46 Dose: 30 mg Labetalol HCl (Normodyne -) 200 mg PO Q2H PRN PRN Reason: HYPERTENSION Labetalol HCl (Normodyne -) 400 mg PO TID [facility] Last Admin: 10/03/17 05:59 Dose: 400 mg Lacosamide (Vimpat -) 150 mg PO BID [facility] Last Admin: 10/02/17 21:47 Dose: 150 mg Lacosamide (Vimpat -) 75 mg PO MOWEFR [facility] Last Admin: 10/01/17 15:27 Dose: 75 mg Multivit/Ca Carb/B Cmplx/FA/Prenat (Nephro-Claudia -) 1 tablet PO DAILY [facility] Last Admin: 10/02/17 09:40 Dose: 1 tablet Nifedipine (Procardia Xl -) 90 mg PO BID [facility] Last Admin: 10/02/17 21:46 Dose: 90 mg Nystatin (Mycostatin Cream -) 1 applic TP Q6HPO [facility] Last Admin: 10/03/17 06:00 Dose: 1 applic Ondansetron HCl (Zofran Injection) 4 mg IVPUSH Q6H PRN PRN Reason: NAUSEA AND/OR VOMITING Sevelamer Carbonate (Renvela -) 1,600 mg PO TIDCM [facility] Last Admin: 10/02/17 17:06 Dose: 1,600 mg - Objective Vital Signs: Vital Signs Temperature 98.6 F 10/03/17 06:00 Pulse Rate 99 H 10/03/17 10:56 Respiratory Rate 16 10/03/17 10:56 Blood Pressure 156/71 10/03/17 10:56 O2 Sat by Pulse Oximetry (%) 95 10/02/17 22:00 Constitutional: Yes: Calm Eyes: Yes: Conjunctiva Clear HENT: Yes: Atraumatic Cardiovascular: Yes: S1, S2 Respiratory: Yes: CTA Bilaterally Gastrointestinal: Yes: Normal Bowel Sounds, Soft Genitourinary: Yes: WNL Musculoskeletal: Yes: WNL Edema: No Neurological: Yes: Pre-Existing Deficit Labs: CBC, BMP 10/03/17 07:00 10/03/17 07:00 INR, PTT INR 0.93 (0.82-1.09) 09/26/17 05:40 Fibrinogen 558.0 mg/dL (238-498) H 09/17/17 06:45 Problem List - Problems (1) Acute renal failure Code(s): N17.9 - ACUTE KIDNEY FAILURE, UNSPECIFIED Qualifiers: Acute renal failure type: unspecified Qualified Code(s): N17.9 - Acute kidney failure, unspecified (2) Anemia Code(s): D64.9 - ANEMIA, UNSPECIFIED (3) Hyperkalemia Code(s): E87.5 - HYPERKALEMIA (4) Hypertensive urgency Code(s): I16.0 - HYPERTENSIVE URGENCY (5) Sepsis Code(s): A41.9 - SEPSIS, UNSPECIFIED ORGANISM Qualifiers: Sepsis type: sepsis due to unspecified organism Qualified Code(s): A41.9 - Sepsis, unspecified organism (6) Thrombocytopenia Code(s): D69.6 - THROMBOCYTOPENIA, UNSPECIFIED (7) Seizure Code(s): R56.9 - UNSPECIFIED CONVULSIONS Assessment/Plan Current Medications Generic Name Dose Route Start Last Admin Trade Name Freq PRN Reason Stop Dose Admin Acetaminophen 1,000 mg 09/24/17 19:19 Ofirmev Injection - IVPB Q6H PRN PAIN LEVEL 1-5 Acetaminophen 650 mg 10/01/17 20:52 10/01/17 21:09 Tylenol - PO 650 mg Q6H PRN Administration FEVER Albuterol/Ipratropium 1 amp 09/30/17 19:13 10/02/17 08:40 Duoneb - NEB 1 amp Q6H PRN Administration SHORTNESS OF BREATH Amino Acids 30 ml 09/25/17 10:00 10/02/17 09:40 Prosource No Carb Liquid Pkt NGT Not Given DAILY LANE Collagenase 1 applic 10/02/17 16:00 10/02/17 19:49 Santyl - TP Not Given DAILY LANE Diphenhydramine HCl 25 mg 09/24/17 19:19 10/03/17 07:33 Benadryl - PO 25 mg Q6H PRN Administration FOR ITCHING Docusate Sodium 100 mg 09/24/17 19:19 Colace Liquid - NGT Q8H PRN CONSTIPATION Hydralazine HCl 100 mg 09/24/17 22:00 10/03/17 05:59 Apresoline - PO [address] Administration Hydralazine HCl 10 mg 09/24/17 19:19 09/27/17 19:05 Apresoline Injection - IVPUSH 10 mg Q4H PRN Administration HYPERTENSION Levofloxacin 250 mg in 50 mls @ 50 mls/hr 10/03/17 16:00 Levaquin 250 Mg Premixed Ivpb - IVPB Q2D@[address] Protocol Isosorbide Mononitrate 30 mg 09/24/17 22:00 10/02/17 21:46 Imdur - PO [address] Administration Labetalol HCl 200 mg 09/24/17 19:19 Normodyne - PO Q2H PRN HYPERTENSION Labetalol HCl 400 mg 09/24/17 22:00 10/03/17 05:59 Normodyne - PO [address] Administration Lacosamide 150 mg 09/24/17 11:57 10/02/17 21:47 Vimpat - PO [address] Administration Lacosamide 75 mg 09/26/17 15:00 10/01/17 15:27 Vimpat - PO [address] Administration Multivit/Ca Carb/B Cmplx/FA/Prenat 1 tablet 09/25/17 10:00 10/02/17 09:40 Nephro-Claudia - PO [address] Administration Nifedipine 90 mg 09/24/17 22:00 10/02/17 21:46 Procardia Xl - PO [address] Administration Nystatin 1 applic 09/25/17 00:00 10/03/17 06:00 Mycostatin Cream - TP [address] Administration Ondansetron HCl 4 mg 09/27/17 14:32 Zofran Injection IVPUSH Q6H PRN NAUSEA AND/OR VOMITING Sevelamer Carbonate 1,600 mg 09/25/17 08:00 10/02/17 17:06 Renvela - PO 1,[address] Administration Impression 1. ANNA 2. HTN urgency/emergency 3. hyperkalemia 4. hyponatremia 5. autism 6. hx of seizure 7. anemia 8. CKD 9. lactic acidosis improving 10. thrombocytopenia 11. hyperkalemia 12. pleural effusion 13. acute resp failure requiring intubation 14. ESRD Plan - HD today - monitor BP on HD - vascular input appreciated, pt for AV fistula - epogen for anemia - sent HD info to [facility] - discussed plan with pts mother Dr Velasquez
[2017-10-03] MEDS: LACOSAMIDE 50 MG TABLET PO SCH ×3 (12:38→21:17)
[2017-10-03] MEDS: ISOSORBIDE MONONITRATE 30 MG TAB.SR.24H (FP) PO SCH ×2 (12:38→21:17)
[2017-10-03] MEDS: NIFEdipine E.R. 90 MG TABLET (FP) PO SCH ×2 (12:39→21:17)
[2017-10-03] MEDS: SEVELAMER CARBONATE 800 MG TAB (FP) PO SCH ×3 (12:39→16:59)
[2017-10-03] MEDS: AMINO ACIDS/PROTEIN HYDROLYS 30 ML LIQUID.PKT NGT SCH (12:39)
--- NOTE | 2017-10-03 12:45 | PN ---
Progress Note, Physician History of Present Illness: PULMONARY ALERT,NO DISTRESS,-TACHYPNEA,AFEBRILE - Current Medication List Current Medications: Active Medications Acetaminophen (Ofirmev Injection -) 1,000 mg IVPB Q6H PRN PRN Reason: PAIN LEVEL 1-5 Acetaminophen (Tylenol -) 650 mg PO Q6H PRN PRN Reason: FEVER Last Admin: 10/01/17 21:09 Dose: 650 mg Albuterol/Ipratropium (Duoneb -) 1 amp NEB Q6H PRN PRN Reason: SHORTNESS OF BREATH Last Admin: 10/02/17 08:40 Dose: 1 amp Amino Acids (Prosource No Carb Liquid Pkt) 30 ml NGT DAILY [facility] Last Admin: 10/03/17 12:39 Dose: 30 ml Collagenase (Santyl -) 1 applic TP DAILY [facility] Last Admin: 10/02/17 19:49 Dose: Not Given Diphenhydramine HCl (Benadryl -) 25 mg PO Q6H PRN PRN Reason: FOR ITCHING Last Admin: 10/03/17 07:33 Dose: 25 mg Docusate Sodium (Colace Liquid -) 100 mg NGT Q8H PRN PRN Reason: CONSTIPATION Hydralazine HCl (Apresoline -) 100 mg PO TID [facility] Last Admin: 10/03/17 05:59 Dose: 100 mg Hydralazine HCl (Apresoline Injection -) 10 mg IVPUSH Q4H PRN PRN Reason: HYPERTENSION Last Admin: 09/27/17 19:05 Dose: 10 mg Levofloxacin (Levaquin 250 Mg Premixed Ivpb -) 250 mg in 50 mls @ 50 mls/hr IVPB Q2D@[address] PRN Reason: Protocol Isosorbide Mononitrate (Imdur -) 30 mg PO BID [facility] Last Admin: 10/03/17 12:38 Dose: 30 mg Labetalol HCl (Normodyne -) 200 mg PO Q2H PRN PRN Reason: HYPERTENSION Labetalol HCl (Normodyne -) 400 mg PO TID [facility] Last Admin: 10/03/17 05:59 Dose: 400 mg Lacosamide (Vimpat -) 150 mg PO BID [facility] Last Admin: 10/03/17 12:38 Dose: 150 mg Lacosamide (Vimpat -) 75 mg PO MOWEFR [facility] Last Admin: 10/01/17 15:27 Dose: 75 mg Multivit/Ca Carb/B Cmplx/FA/Prenat (Nephro-Claudia -) 1 tablet PO DAILY [facility] Last Admin: 10/02/17 09:40 Dose: 1 tablet Nifedipine (Procardia Xl -) 90 mg PO BID [facility] Last Admin: 10/03/17 12:39 Dose: 90 mg Nystatin (Mycostatin Cream -) 1 applic TP Q6HPO [facility] Last Admin: 10/03/17 06:00 Dose: 1 applic Ondansetron HCl (Zofran Injection) 4 mg IVPUSH Q6H PRN PRN Reason: NAUSEA AND/OR VOMITING Sevelamer Carbonate (Renvela -) 1,600 mg PO TIDCM [facility] Last Admin: 10/03/17 12:39 Dose: 1,600 mg - Objective Vital Signs: Vital Signs Temperature 99.6 F 10/03/17 12:37 Pulse Rate 100 H 10/03/17 12:37 Respiratory Rate 22 10/03/17 12:37 Blood Pressure 143/74 10/03/17 12:37 O2 Sat by Pulse Oximetry (%) 95 10/02/17 22:00 Constitutional: Yes: Well Nourished, Calm Eyes: Yes: WNL HENT: Yes: WNL Neck: Yes: WNL Cardiovascular: Yes: Regular Rate and Rhythm, S1, S2 Respiratory: Yes: Diminished Gastrointestinal: Yes: Normal Bowel Sounds, Soft Extremities: Yes: WNL Edema: No Labs: CBC, BMP 10/03/17 07:00 10/03/17 07:00 INR, PTT INR 0.93 (0.82-1.09) 09/26/17 05:40 Fibrinogen 558.0 mg/dL (238-498) H 09/17/17 06:45 Problem List - Problems (1) Respiratory failure Code(s): J96.90 - RESPIRATORY FAILURE, UNSP, UNSP W HYPOXIA OR HYPERCAPNIA (2) Acute renal failure Code(s): N17.9 - ACUTE KIDNEY FAILURE, UNSPECIFIED Qualifiers: Acute renal failure type: unspecified Qualified Code(s): N17.9 - Acute kidney failure, unspecified (3) Anemia Code(s): D64.9 - ANEMIA, UNSPECIFIED (4) Autism Code(s): F84.0 - AUTISTIC DISORDER (5) Hypertensive urgency Code(s): I16.0 - HYPERTENSIVE URGENCY (6) Pneumonia Code(s): J18.9 - PNEUMONIA, UNSPECIFIED ORGANISM Qualifiers: Pneumonia type: due to unspecified organism Laterality: unspecified laterality Lung location: unspecified part of lung Qualified Code(s): J18.9 - Pneumonia, unspecified organism Assessment/Plan A/P Hypertensive Urgency resolved Acute Kidney Injury requiring HD Acute Hypoxic Respiratory Failure improved Pneumonia Loculated Pleural Effusion s/p L VATS/pneumolysis Severe Sepsis resolved Lactic Acidosis resolved Thrombocytopenia improved Anemia Autism - antibiotics as per ID - HD per renal - monitor H/H - monitor urine output, creatinine - BP control - O2 - PO as tolerated - DVT/GI prophylaxis DR WALSH
[2017-10-03] MEDS: COLLAGENASE CLOSTRIDIUM HIST. 30 GRAMS TUBE TP SCH (13:00)
--- NOTE | 2017-10-03 13:51 | PN ---
Physical Exam: SUBJECTIVE: Patient seen and examined after HD. He is calm, watching Ipad. Mother at bedside. OBJECTIVE: Vital Signs Period Temp Pulse Resp BP Sys/Mora Pulse Ox Last 24 Hr 98.3 F-99.6 F 88-100 16-22 135-175/70-98 95 PE Neuro: awake, alert, NAD Pulm: clear anteriorly CV: s1 s2 rrr no mrg Abd: s nt nd +bs Ext: warm, no le edema Access: RCW permacath Laboratory Results - last 24 hr 10/01/17 10/03/17 10/03/17 15:00 07:00 07:00 WBC 8.4 RBC 2.78 L Hgb 8.2 L Hct 24.4 L MCV 87.6 MCH 29.5 MCHC 33.7 RDW 14.0 Plt Count 286 MPV 7.7 Neutrophils % 58.3 Lymphocytes % 30.8 D Monocytes % 7.2 Eosinophils % 3.1 Basophils % 0.6 Sodium Potassium Chloride Carbon Dioxide Anion Gap BUN Creatinine Random Glucose Calcium Random Vancomycin 33.754 Hep C Ab Diagnostic 0.1 Liver Fibrosis Interp 10/03/17 07:00 WBC RBC Hgb Hct MCV MCH MCHC RDW Plt Count MPV Neutrophils % Lymphocytes % Monocytes % Eosinophils % Basophils % Sodium 138 Potassium 4.2 Chloride 98 Carbon Dioxide 25 Anion Gap 15 BUN 38 H D Creatinine 8.9 H* D Random Glucose 81 Calcium 8.5 Random Vancomycin Hep C Ab Diagnostic Liver Fibrosis Interp Active Medications Generic Name Dose Route Start Last Admin Trade Name Freq PRN Reason Stop Dose Admin Acetaminophen 1,000 mg 09/24/17 19:19 Ofirmev Injection - IVPB Q6H PRN PAIN LEVEL 1-5 Acetaminophen 650 mg 10/01/17 20:52 10/01/17 21:09 Tylenol - PO 650 mg Q6H PRN Administration FEVER Albuterol/Ipratropium 1 amp 09/30/17 19:13 10/02/17 08:40 Duoneb - NEB 1 amp Q6H PRN Administration SHORTNESS OF BREATH Amino Acids 30 ml 09/25/17 10:00 10/03/17 12:39 Prosource No Carb Liquid Pkt NGT [address] Administration Collagenase 1 applic 10/02/17 16:00 10/03/17 13:00 Santyl - TP [address] Administration Diphenhydramine HCl 25 mg 09/24/17 19:19 10/03/17 07:33 Benadryl - PO 25 mg Q6H PRN Administration FOR ITCHING Docusate Sodium 100 mg 09/24/17 19:19 Colace Liquid - NGT Q8H PRN CONSTIPATION Hydralazine HCl 100 mg 09/24/17 22:00 10/03/17 05:59 Apresoline - PO [address] Administration Hydralazine HCl 10 mg 09/24/17 19:19 09/27/17 19:05 Apresoline Injection - IVPUSH 10 mg Q4H PRN Administration HYPERTENSION Levofloxacin 250 mg in 50 mls @ 50 mls/hr 10/03/17 16:00 Levaquin 250 Mg Premixed Ivpb - IVPB Q2D@1000 [facility] Protocol Isosorbide Mononitrate 30 mg 09/24/17 22:00 10/03/17 12:38 Imdur - PO [address] Administration Labetalol HCl 200 mg 09/24/17 19:19 Normodyne - PO Q2H PRN HYPERTENSION Labetalol HCl 400 mg 09/24/17 22:00 10/03/17 05:59 Normodyne - PO [address] Administration Lacosamide 150 mg 09/24/17 11:57 10/03/17 12:38 Vimpat - PO [address] Administration Lacosamide 75 mg 09/26/17 15:00 10/01/17 15:27 Vimpat - PO [address] Administration Multivit/Ca Carb/B Cmplx/FA/Prenat 1 tablet 09/25/17 10:00 10/02/17 09:40 Nephro-Cluadia - PO [address] Administration Nifedipine 90 mg 09/24/17 22:00 10/03/17 12:39 Procardia Xl - PO [address] Administration Nystatin 1 applic 09/25/17 00:00 10/03/17 06:00 Mycostatin Cream - TP [address] Administration Ondansetron HCl 4 mg 09/27/17 14:32 Zofran Injection IVPUSH Q6H PRN NAUSEA AND/OR VOMITING Sevelamer Carbonate 1,600 mg 09/25/17 08:00 10/03/17 12:39 Renvela - PO 1,[address] Administration Assessment: 22 year old male with PMHx of HTN, autism, epilepsy, who presented to the ED with diarrhea and increased dyspnea and was found to have hypertensive emergency, ANNA, pneumonia with a complicated hospital course including acute respiratory failure requiring intubation and a persistent left pleural effusion, s/p thoracentesis 09/02, s/p pigtail 09/04, then requiring vats and pneumolysis on 09/17 with chest tubes, now pulled. Permacath in place, awaiting AVF. Plan: 1. Acute hypoxic respiratory failure, large left pleural effusion - Resolved - S/p bronchoscopy/left VATS/drainage of effusion/pneumolysis 09/17 2. New leukocytosis, s/p severe sepsis 2/2 pneumonia - Further abx per ID 3. ANNA, ESRD MWF - Pre moreno results indicating kidney disease from htn - HD today - Outpt HD with [facility] - L AVF tentatively scheduled for Sunday 4. Hypertensive emergency - BP controlled - Continue Hydralazine - Continue Imdur - Continue Labetolol - Continue Procardia Xl 5. Epilepsy - On day of dialysis pt to receive additional 75mg after HD - Continue increased Vimpat 150mg BID 6. Ppx - Heparin 5,000u sq bid CODE STATUS: FULL CODE Visit type - Emergency Visit Emergency Visit: Yes ED Registration Date: 08/29/17 Care time: The patient presented to the Emergency Department on the above date and was hospitalized for further evaluation of their emergent condition. - New Patient This patient is new to me today: No - Critical Care Critical Care patient: No
[2017-10-03] MEDS ORDERED: EPOETIN ALFA 2,000 UNIT/1 ML VIAL IVPUSH ONE (14:58)
[2017-10-03] MEDS ORDERED: PT OWN MED DRAWER 7, Y5N ONE (16:37)
[2017-10-03] MEDS: VITAMIN B COMP W-C 1 EA TABLET PO SCH (16:50)
[2017-10-04 00:07] LABS: HBSAG SCREEN Negative (Negative); HEP A AB, IGM Negative (Negative); HEP B CORE AB, TOT Negative (Negative)
[2017-10-04] MEDS: NYSTATIN 100,000 UNIT/GM TOPICAL CREAM 15 GM TUBE TP SCH ×4 (00:38→17:05)
[2017-10-04] MEDS: hydrALAZINE HCL 50 MG TABLET (FP) PO SCH ×3 (05:50→21:15)
[2017-10-04] MEDS: LABETALOL HCL 200 MG TABLET (FP) PO SCH ×3 (05:50→21:18)
--- NOTE | 2017-10-04 07:45 | PN ---
Progress Note (short form) - Note Progress Note: Pt seen at bedside this AM, mother in attendance as well. AV fistula procedure d/w mother, risks of bleeding, pain, access failure, etc discussed. Mother agrees to plan. Procedure scheduled for 10/08
[2017-10-04] MEDS: SEVELAMER CARBONATE 800 MG TAB (FP) PO SCH ×3 (08:00→17:05)
[2017-10-04] MEDS ORDERED: PT OWN MED DRAWER 7, Y5N ONE (09:43)
[2017-10-04] MEDS ORDERED: FERROUS SO4 325 MG TABLET (FP) PO SCH (10:00)
[2017-10-04] MEDS: NIFEdipine E.R. 90 MG TABLET (FP) PO SCH ×2 (10:09→21:16)
[2017-10-04] MEDS: LACOSAMIDE 50 MG TABLET PO SCH ×2 (10:09→21:15)
[2017-10-04] MEDS: ISOSORBIDE MONONITRATE 30 MG TAB.SR.24H (FP) PO SCH ×2 (10:09→21:15)
[2017-10-04] MEDS: AMINO ACIDS/PROTEIN HYDROLYS 30 ML LIQUID.PKT NGT SCH (10:09)
[2017-10-04] MEDS: VITAMIN B COMP W-C 1 EA TABLET PO SCH (10:09)
[2017-10-04] MEDS ORDERED: HEPARIN NA (PORCINE) 5,000 UNITS/ML 1ML VIAL SQ SCH (10:15)
[2017-10-04] MEDS: COLLAGENASE CLOSTRIDIUM HIST. 30 GRAMS TUBE TP SCH (10:18)
--- NOTE | 2017-10-04 10:49 | PN ---
Progress Note (short form) - Note Progress Note: CC: htn urgency S: pt does not communicate well. appears comfortable. no overnight events. o: Current Medications Generic Name Dose Route Start Last Admin Trade Name Freq PRN Reason Stop Dose Admin Acetaminophen 1,000 mg 09/24/17 19:19 Ofirmev Injection - IVPB Q6H PRN PAIN LEVEL 1-5 Acetaminophen 650 mg 10/01/17 20:52 10/01/17 21:09 Tylenol - PO 650 mg Q6H PRN Administration FEVER Albuterol/Ipratropium 1 amp 09/30/17 19:13 10/02/17 08:40 Duoneb - NEB 1 amp Q6H PRN Administration SHORTNESS OF BREATH Amino Acids 30 ml 09/25/17 10:00 10/04/17 10:09 Prosource No Carb Liquid Pkt NGT [address] Administration Collagenase 1 applic 10/02/17 16:00 10/04/17 10:18 Santyl - TP [address] Administration Diphenhydramine HCl 25 mg 09/24/17 19:19 10/03/17 07:33 Benadryl - PO 25 mg Q6H PRN Administration FOR ITCHING Docusate Sodium 100 mg 09/24/17 19:19 Colace Liquid - NGT Q8H PRN CONSTIPATION Heparin Sodium (Porcine) 5,000 unit 10/04/17 10:15 Heparin - SQ BID LANE Hydralazine HCl 100 mg 09/24/17 22:00 10/04/17 05:50 Apresoline - PO [address] Administration Hydralazine HCl 10 mg 09/24/17 19:19 09/27/17 19:05 Apresoline Injection - IVPUSH 10 mg Q4H PRN Administration HYPERTENSION Levofloxacin 250 mg in 50 mls @ 50 mls/hr 10/03/17 16:00 10/03/17 16:49 Levaquin 250 Mg Premixed Ivpb - IVPB 50 mls/hr Q2D@[address] Administration Protocol Isosorbide Mononitrate 30 mg 09/24/17 22:00 10/04/17 10:09 Imdur - PO [address] Administration Labetalol HCl 200 mg 09/24/17 19:19 Normodyne - PO Q2H PRN HYPERTENSION Labetalol HCl 400 mg 09/24/17 22:00 05/10/18 05:50 Normodyne - PO [address] Administration Lacosamide 150 mg 09/24/17 11:57 10/04/17 10:09 Vimpat - PO [address] Administration Lacosamide 75 mg 09/26/17 15:00 10/03/17 16:49 Vimpat - PO [address] Administration Multivit/Ca Carb/B Cmplx/FA/Prenat 1 tablet 09/25/17 10:00 10/04/17 10:09 Nephro-Claudia - PO [address] Administration Nifedipine 90 mg 09/24/17 22:00 10/04/17 10:09 Procardia Xl - PO [address] Administration Nystatin 1 applic 09/25/17 00:00 10/04/17 05:50 Mycostatin Cream - TP [address] Administration Ondansetron HCl 4 mg 09/27/17 14:32 Zofran Injection IVPUSH Q6H PRN NAUSEA AND/OR VOMITING Sevelamer Carbonate 1,600 mg 09/25/17 08:00 10/04/17 08:00 Renvela - PO 1,[address] Administration Vital Signs Period Temp Pulse Resp BP Sys/Mora Pulse Ox Last 24 Hr 98.0 F-99.6 F 92-100 16-22 143-174/60-91 92 nad, calm nad no jvd rrr s1 s2 no mrg cta bl nl effort. no jaundice diaphoresis trace le edema bl abd nd pos bs CBC, BMP 10/03/17 07:00 10/03/17 07:00 echo 08/2017: nl lv/rv, no sig valve path a/p: 22 m hx autism, seizures, possible underlying ckd/htn here with ams, respiratory failure/sepsis, anna requiring HD and hypertensive urgency. Cardiac course complicated by mild troponin elevation and prolonged qtc. 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 was uncontrolled when here 12/11 for seizure, with agitation then--no BP checked since that discharge she says -has had difficult to control BP here, requiring nifedipine and labetalol drips (the latter up to 2mg/min, i.e. 2800 mg/day, without good bp control) 09/14: increased hydralzine to 100 tid and add imdur 30 qd -09/15: BP severely elevated again this am (220/100). change nifedip 120 qd to 90 bid to cover overnight/early AM bp's (very short-acting med). change coreg to labetalol 400 TID for greater potency (with prn PO doses ordered), will likely need closer to 600-800 TID labetlol, will titrate up as needed -BP much improved, continue current regimen -will plan to try to cut down nifedipine dose (to 60 bid) +/- hydralazine dose later, if bp remains well controlled. -deferring RAAS-blockers for now given ANNA with renal w/u ongoing anna requiring HD: -creat 2.1 here in november, ? no prior w/u per mother -suspect hypertensive renal failure, progressive since then, though possible causality in other direction (no MD f/u since november, per mother) -renal eval in progress. biopsy done. -getting HD here, plans for avf next week on sunday abnormal troponins - flat trend, with intermediate range values - secondary to sepsis myocardial injury, vs demand ischemia (severe HTN, with tachycardia to 120s-130s). no clinical findings to support acs here. anemia: -chronic, mgm't per primary team respiratory failure s/p intubation (resolved), pleural effusion - with white out of left lung - 09/04 s/p chest tube placement. - plan per critical care/thoracic surgery--s/p Bronchoscopy, left VATS, drainage of effusion, pneumolysis 09/17. now with chest tube x 2. - 09/20 one chest tube removed. - 09/21 second chest tube removed. - still with residual retrocardiac opacity, pulm following.
--- NOTE | 2017-10-04 12:43 | PN ---
Progress Note (short form) - Note Progress Note: PULMONARY No shortness of breath or cough. No further fevers. Last Vital Signs Temp Pulse Resp BP Pulse Ox 98.5 F 99 H 20 146/87 92 L 10/04/17 06:00 10/04/17 06:00 10/04/17 06:00 10/04/17 06:00 10/03/17 21:00 Intake & Output 10/01/17 10/02/17 10/03/17 10/04/17 23:59 23:59 23:59 23:59 Intake Total 60 60 Balance 60 60 Weight 80.195 kg 78.925 kg 77.927 kg Gen: NAD at rest Heart: RRR Lung: decreased breath sounds at the bases Abd: soft, nontender Ext: no edema CBC, BMP 10/03/17 07:00 10/03/17 07:00 Active Medications Acetaminophen (Ofirmev Injection -) 1,000 mg IVPB Q6H PRN PRN Reason: PAIN LEVEL 1-5 Acetaminophen (Tylenol -) 650 mg PO Q6H PRN PRN Reason: FEVER Last Admin: 10/01/17 21:09 Dose: 650 mg Albuterol/Ipratropium (Duoneb -) 1 amp NEB Q6H PRN PRN Reason: SHORTNESS OF BREATH Last Admin: 10/02/17 08:40 Dose: 1 amp Amino Acids (Prosource No Carb Liquid Pkt) 30 ml NGT DAILY [facility] Last Admin: 10/04/17 10:09 Dose: 30 ml Collagenase (Santyl -) 1 applic TP DAILY [facility] Last Admin: 10/04/17 10:18 Dose: 1 applic Diphenhydramine HCl (Benadryl -) 25 mg PO Q6H PRN PRN Reason: FOR ITCHING Last Admin: 10/03/17 07:33 Dose: 25 mg Docusate Sodium (Colace Liquid -) 100 mg NGT Q8H PRN PRN Reason: CONSTIPATION Heparin Sodium (Porcine) (Heparin -) 5,000 unit SQ BID [facility] Last Admin: 10/04/17 11:15 Dose: 5,000 unit Hydralazine HCl (Apresoline -) 100 mg PO TID [facility] Last Admin: 10/04/17 05:50 Dose: 100 mg Hydralazine HCl (Apresoline Injection -) 10 mg IVPUSH Q4H PRN PRN Reason: HYPERTENSION Last Admin: 09/27/17 19:05 Dose: 10 mg Levofloxacin (Levaquin 250 Mg Premixed Ivpb -) 250 mg in 50 mls @ 50 mls/hr IVPB Q2D@[address] PRN Reason: Protocol Last Admin: 10/03/17 16:49 Dose: 50 mls/hr Isosorbide Mononitrate (Imdur -) 30 mg PO BID [facility] Last Admin: 10/04/17 10:09 Dose: 30 mg Labetalol HCl (Normodyne -) 200 mg PO Q2H PRN PRN Reason: HYPERTENSION Labetalol HCl (Normodyne -) 400 mg PO TID [facility] Last Admin: 10/04/17 05:50 Dose: 400 mg Lacosamide (Vimpat -) 150 mg PO BID [facility] Last Admin: 10/04/17 10:09 Dose: 150 mg Lacosamide (Vimpat -) 75 mg PO MOWEFR [facility] Last Admin: 10/03/17 16:49 Dose: 75 mg Multivit/Ca Carb/B Cmplx/FA/Prenat (Nephro-Claudia -) 1 tablet PO DAILY [facility] Last Admin: 10/04/17 10:09 Dose: 1 tablet Nifedipine (Procardia Xl -) 90 mg PO BID [facility] Last Admin: 10/04/17 10:09 Dose: 90 mg Nystatin (Mycostatin Cream -) 1 applic TP Q6HPO [facility] Last Admin: 10/04/17 05:50 Dose: 1 applic Ondansetron HCl (Zofran Injection) 4 mg IVPUSH Q6H PRN PRN Reason: NAUSEA AND/OR VOMITING Sevelamer Carbonate (Renvela -) 1,600 mg PO TIDCM [facility] Last Admin: 10/04/17 12:11 Dose: 1,600 mg A/P Hypertensive Urgency resolved Acute Kidney Injury requiring HD Acute Hypoxic Respiratory Failure resolved Pneumonia treated Loculated Pleural Effusion s/p L VATS/pneumolysis Severe Sepsis resolved Lactic Acidosis resolved Thrombocytopenia improved Anemia Autism - antibiotics per ID - HD per renal - monitor H/H - monitor urine output, creatinine - f/u renal biopsy - BP control - taper Fio2 to keep Spo2 >90% - PO as tolerated - DVT prophylaxis
--- NOTE | 2017-10-04 14:45 | PN ---
Progress Note, Physician History of Present Illness: Pt seen and examined at bedside. He is awake and appears comfortable. - Current Medication List Current Medications: Active Medications Acetaminophen (Ofirmev Injection -) 1,000 mg IVPB Q6H PRN PRN Reason: PAIN LEVEL 1-5 Acetaminophen (Tylenol -) 650 mg PO Q6H PRN PRN Reason: FEVER Last Admin: 10/01/17 21:09 Dose: 650 mg Albuterol/Ipratropium (Duoneb -) 1 amp NEB Q6H PRN PRN Reason: SHORTNESS OF BREATH Last Admin: 10/02/17 08:40 Dose: 1 amp Amino Acids (Prosource No Carb Liquid Pkt) 30 ml NGT DAILY [facility] Last Admin: 10/04/17 10:09 Dose: 30 ml Collagenase (Santyl -) 1 applic TP DAILY [facility] Last Admin: 10/04/17 10:18 Dose: 1 applic Diphenhydramine HCl (Benadryl -) 25 mg PO Q6H PRN PRN Reason: FOR ITCHING Last Admin: 10/03/17 07:33 Dose: 25 mg Docusate Sodium (Colace Liquid -) 100 mg NGT Q8H PRN PRN Reason: CONSTIPATION Heparin Sodium (Porcine) (Heparin -) 5,000 unit SQ BID [facility] Last Admin: 10/04/17 11:15 Dose: 5,000 unit Hydralazine HCl (Apresoline -) 100 mg PO TID [facility] Last Admin: 10/04/17 13:11 Dose: 100 mg Hydralazine HCl (Apresoline Injection -) 10 mg IVPUSH Q4H PRN PRN Reason: HYPERTENSION Last Admin: 09/27/17 19:05 Dose: 10 mg Levofloxacin (Levaquin 250 Mg Premixed Ivpb -) 250 mg in 50 mls @ 50 mls/hr IVPB Q2D@[address] PRN Reason: Protocol Last Admin: 10/03/17 16:49 Dose: 50 mls/hr Isosorbide Mononitrate (Imdur -) 30 mg PO BID [facility] Last Admin: 10/04/17 10:09 Dose: 30 mg Labetalol HCl (Normodyne -) 200 mg PO Q2H PRN PRN Reason: HYPERTENSION Labetalol HCl (Normodyne -) 400 mg PO TID [facility] Last Admin: 10/04/17 13:11 Dose: 400 mg Lacosamide (Vimpat -) 150 mg PO BID [facility] Last Admin: 10/04/17 10:09 Dose: 150 mg Lacosamide (Vimpat -) 75 mg PO MOWEFR [facility] Last Admin: 10/03/17 16:49 Dose: 75 mg Multivit/Ca Carb/B Cmplx/FA/Prenat (Nephro-Claudia -) 1 tablet PO DAILY [facility] Last Admin: 10/04/17 10:09 Dose: 1 tablet Nifedipine (Procardia Xl -) 90 mg PO BID [facility] Last Admin: 10/04/17 10:09 Dose: 90 mg Nystatin (Mycostatin Cream -) 1 applic TP Q6HPO [facility] Last Admin: 10/04/17 13:00 Dose: Not Given Ondansetron HCl (Zofran Injection) 4 mg IVPUSH Q6H PRN PRN Reason: NAUSEA AND/OR VOMITING Sevelamer Carbonate (Renvela -) 1,600 mg PO TIDCM [facility] Last Admin: 10/04/17 12:11 Dose: 1,600 mg - Objective Vital Signs: Vital Signs Temperature 98.7 F 10/04/17 13:50 Pulse Rate 97 H 10/04/17 13:50 Respiratory Rate 18 10/04/17 13:50 Blood Pressure 149/96 10/04/17 13:50 O2 Sat by Pulse Oximetry (%) 95 10/04/17 10:00 Constitutional: Yes: Calm Eyes: Yes: Conjunctiva Clear HENT: Yes: Atraumatic Neck: Yes: Supple Cardiovascular: Yes: S1, S2 Respiratory: Yes: CTA Bilaterally Gastrointestinal: Yes: Soft Genitourinary: Yes: WNL Musculoskeletal: Yes: WNL Edema: No Neurological: Yes: Pre-Existing Deficit Labs: CBC, BMP 10/03/17 07:00 10/03/17 07:00 INR, PTT INR 0.93 (0.82-1.09) 09/26/17 05:40 Fibrinogen 558.0 mg/dL (238-498) H 09/17/17 06:45 Problem List - Problems (1) Acute renal failure Code(s): N17.9 - ACUTE KIDNEY FAILURE, UNSPECIFIED Qualifiers: Acute renal failure type: unspecified Qualified Code(s): N17.9 - Acute kidney failure, unspecified (2) Anemia Code(s): D64.9 - ANEMIA, UNSPECIFIED (3) Hyperkalemia Code(s): E87.5 - HYPERKALEMIA (4) Hypertensive urgency Code(s): I16.0 - HYPERTENSIVE URGENCY (5) Sepsis Code(s): A41.9 - SEPSIS, UNSPECIFIED ORGANISM Qualifiers: Sepsis type: sepsis due to unspecified organism Qualified Code(s): A41.9 - Sepsis, unspecified organism (6) Thrombocytopenia Code(s): D69.6 - THROMBOCYTOPENIA, UNSPECIFIED (7) Seizure Code(s): R56.9 - UNSPECIFIED CONVULSIONS Assessment/Plan Current Medications Generic Name Dose Route Start Last Admin Trade Name Freq PRN Reason Stop Dose Admin Acetaminophen 1,000 mg 09/24/17 19:19 Ofirmev Injection - IVPB Q6H PRN PAIN LEVEL 1-5 Acetaminophen 650 mg 10/01/17 20:52 10/01/17 21:09 Tylenol - PO 650 mg Q6H PRN Administration FEVER Albuterol/Ipratropium 1 amp 09/30/17 19:13 10/02/17 08:40 Duoneb - NEB 1 amp Q6H PRN Administration SHORTNESS OF BREATH Amino Acids 30 ml 09/25/17 10:00 10/04/17 10:09 Prosource No Carb Liquid Pkt NGT [address] Administration Collagenase 1 applic 10/02/17 16:00 10/04/17 10:18 Santyl - TP [address] Administration Diphenhydramine HCl 25 mg 09/24/17 19:19 10/03/17 07:33 Benadryl - PO 25 mg Q6H PRN Administration FOR ITCHING Docusate Sodium 100 mg 09/24/17 19:19 Colace Liquid - NGT Q8H PRN CONSTIPATION Heparin Sodium (Porcine) 5,000 unit 10/04/17 10:15 10/04/17 11:15 Heparin - SQ 5,[address] Administration Hydralazine HCl 100 mg 09/24/17 22:00 10/04/17 13:11 Apresoline - PO [address] Administration Hydralazine HCl 10 mg 09/24/17 19:19 09/27/17 19:05 Apresoline Injection - IVPUSH 10 mg Q4H PRN Administration HYPERTENSION Levofloxacin 250 mg in 50 mls @ 50 mls/hr 10/03/17 16:00 10/03/17 16:49 Levaquin 250 Mg Premixed Ivpb - IVPB 50 mls/hr Q2D@[address] Administration Protocol Isosorbide Mononitrate 30 mg 09/24/17 22:00 10/04/17 10:09 Imdur - PO [address] Administration Labetalol HCl 200 mg 09/24/17 19:19 Normodyne - PO Q2H PRN HYPERTENSION Labetalol HCl 400 mg 09/24/17 22:00 10/04/17 13:11 Normodyne - PO [address] Administration Lacosamide 150 mg 09/24/17 11:57 10/04/17 10:09 Vimpat - PO [address] Administration Lacosamide 75 mg 09/26/17 15:00 10/03/17 16:49 Vimpat - PO [address] Administration Multivit/Ca Carb/B Cmplx/FA/Prenat 1 tablet 09/25/17 10:00 10/04/17 10:09 Nephro-Claudia - PO [address] Administration Nifedipine 90 mg 09/24/17 22:00 10/04/17 10:09 Procardia Xl - PO [address] Administration Nystatin 1 applic 09/25/17 00:00 10/04/17 13:00 Mycostatin Cream - TP Not Given Q6HPO LANE Ondansetron HCl 4 mg 09/27/17 14:32 Zofran Injection IVPUSH Q6H PRN NAUSEA AND/OR VOMITING Sevelamer Carbonate 1,600 mg 09/25/17 08:00 10/04/17 12:11 Renvela - PO 1,[address] Administration Impression 1. ANNA 2. HTN urgency/emergency 3. hyperkalemia 4. hyponatremia 5. autism 6. hx of seizure 7. anemia 8. CKD 9. lactic acidosis improving 10. thrombocytopenia 11. hyperkalemia 12. pleural effusion 13. acute resp failure requiring intubation 14. ESRD Plan - HD in am - check iron and ferritin levels - vascular input appreciated, pt for AV fistula - epogen for anemia - sent HD info to [facility] - discussed plan with pts mother Dr Velasquez
--- NOTE | 2017-10-04 14:48 | PN ---
Physical Exam: SUBJECTIVE: Patient seen and examined. He is eating well, mother at bedside. Sat in chair today. OBJECTIVE: Vital Signs Period Temp Pulse Resp BP Sys/Mora Pulse Ox Last 24 Hr 96.7 F-98.7 F 92-99 18-20 146-158/60-96 92-95 PE Neuro: awake, alert, NAD Pulm: clear anteriorly CV: s1 s2 rrr no mrg Abd: s nt nd +bs Ext: warm, no le edema Access: RCW permacath Laboratory Results - last 24 hr 10/01/17 15:00 Hep A IgM Ab Confirm Negative Hepatitis A Ab Total Positive H Hep Bs Antigen Negative Hep Bs Antibody Non reactive Hep B Core Total Ab Negative Active Medications Generic Name Dose Route Start Last Admin Trade Name Freq PRN Reason Stop Dose Admin Acetaminophen 1,000 mg 09/24/17 19:19 Ofirmev Injection - IVPB Q6H PRN PAIN LEVEL 1-5 Acetaminophen 650 mg 10/01/17 20:52 10/01/17 21:09 Tylenol - PO 650 mg Q6H PRN Administration FEVER Albuterol/Ipratropium 1 amp 09/30/17 19:13 10/02/17 08:40 Duoneb - NEB 1 amp Q6H PRN Administration SHORTNESS OF BREATH Amino Acids 30 ml 09/25/17 10:00 10/04/17 10:09 Prosource No Carb Liquid Pkt NGT [address] Administration Collagenase 1 applic 10/02/17 16:00 10/04/17 10:18 Santyl - TP [address] Administration Diphenhydramine HCl 25 mg 09/24/17 19:19 10/03/17 07:33 Benadryl - PO 25 mg Q6H PRN Administration FOR ITCHING Docusate Sodium 100 mg 09/24/17 19:19 Colace Liquid - NGT Q8H PRN CONSTIPATION Heparin Sodium (Porcine) 5,000 unit 10/04/17 22:00 Heparin - SQ TID LANE Hydralazine HCl 100 mg 09/24/17 22:00 10/04/17 13:11 Apresoline - PO [address] Administration Hydralazine HCl 10 mg 09/24/17 19:19 09/27/17 19:05 Apresoline Injection - IVPUSH 10 mg Q4H PRN Administration HYPERTENSION Levofloxacin 250 mg in 50 mls @ 50 mls/hr 10/03/17 16:00 10/03/17 16:49 Levaquin 250 Mg Premixed Ivpb - IVPB 50 mls/hr Q2D@[address] Administration Protocol Isosorbide Mononitrate 30 mg 09/24/17 22:00 10/04/17 10:09 Imdur - PO [address] Administration Labetalol HCl 200 mg 09/24/17 19:19 Normodyne - PO Q2H PRN HYPERTENSION Labetalol HCl 400 mg 09/24/17 22:00 10/04/17 13:11 Normodyne - PO [address] Administration Lacosamide 150 mg 09/24/17 11:57 10/04/17 10:09 Vimpat - PO [address] Administration Lacosamide 75 mg 09/26/17 15:00 10/03/17 16:49 Vimpat - PO [address] Administration Multivit/Ca Carb/B Cmplx/FA/Prenat 1 tablet 09/25/17 10:00 10/04/17 10:09 Nephro-Claudia - PO [address] Administration Nifedipine 90 mg 09/24/17 22:00 10/04/17 10:09 Procardia Xl - PO [address] Administration Nystatin 1 applic 09/25/17 00:00 10/04/17 13:00 Mycostatin Cream - TP Not Given Q6HPO LANE Ondansetron HCl 4 mg 09/27/17 14:32 Zofran Injection IVPUSH Q6H PRN NAUSEA AND/OR VOMITING Sevelamer Carbonate 1,600 mg 09/25/17 08:00 10/04/17 12:11 Renvela - PO 1,[address] Administration Assessment: 22 year old male with PMHx of HTN, autism, epilepsy, who presented to the ED with diarrhea and increased dyspnea and was found to have hypertensive emergency, ANNA, pneumonia with a complicated hospital course including acute respiratory failure requiring intubation and a persistent left pleural effusion, s/p thoracentesis 09/02, s/p pigtail 09/04, then requiring vats and pneumolysis on 09/17 with chest tubes, now pulled. Permacath in place, awaiting AVF. Plan: 1. Acute hypoxic respiratory failure, large left pleural effusion - Resolved - S/p bronchoscopy/left VATS/drainage of effusion/pneumolysis 09/17 2. New leukocytosis, s/p severe sepsis 2/2 pneumonia - Further abx per ID discretion 3. ANNA, ESRD MWF - Pre moreno results indicating kidney disease from htn - HD tomorrow - Outpt HD with [facility] - L AVF tentatively scheduled for Sunday 4. Hypertensive emergency - BP controlled - Continue Hydralazine - Continue Imdur - Continue Labetolol - Continue Procardia Xl 5. Epilepsy - On day of dialysis pt to receive additional 75mg after HD - Continue increased Vimpat 150mg BID 6. Ppx - Heparin 5,000u sq TID CODE STATUS: FULL CODE Visit type - Emergency Visit Emergency Visit: Yes ED Registration Date: 08/29/17 Care time: The patient presented to the Emergency Department on the above date and was hospitalized for further evaluation of their emergent condition. - New Patient This patient is new to me today: Yes Date on this admission: 10/04/17 - Critical Care Critical Care patient: No
[2017-10-04] MEDS: HEPARIN NA (PORCINE) 5,000 UNITS/ML 1ML VIAL SQ SCH (21:16)
[2017-10-05] MEDS: NYSTATIN 100,000 UNIT/GM TOPICAL CREAM 15 GM TUBE TP SCH ×4 (03:36→18:31)
[2017-10-05] MEDS: HEPARIN NA (PORCINE) 5,000 UNITS/ML 1ML VIAL SQ SCH ×3 (06:03→21:37)
[2017-10-05] MEDS: LABETALOL HCL 200 MG TABLET (FP) PO SCH ×3 (06:04→21:38)
[2017-10-05] MEDS: hydrALAZINE HCL 50 MG TABLET (FP) PO SCH ×3 (06:04→21:38)
[2017-10-05] MEDS ORDERED: SODIUM CHLORIDE 250 ML IV PRN (08:00)
[2017-10-05] MEDS: SEVELAMER CARBONATE 800 MG TAB (FP) PO SCH ×3 (08:00→17:14)
[2017-10-05 08:34] LABS: HEMATOCRIT 25.6 % (35.4-49); HEMOGLOBIN 8.8 GM/dL (11.7-16.9); MCHC 34.6 g/dl (32.0-35.9); MEAN CELL VOLUME 86.8 fl (80-96); MEAN PLT VOLUME 7.6 fl (7.5-11.1); PLATELET COUNT 277 K/MM3 (134-434); RBC 2.94 M/mm3 (4.00-5.60); RDW 13.9 % (11.9-15.9); WHITE BLOOD COUNT 7.7 K/mm3 (4.0-10.0)
[2017-10-05 09:00] LABS: ANION GAP 7 (8-16); BLOOD UREA NITROGEN 38 mg/dL (7-18); CALCIUM 8.4 mg/dL (8.5-10.1); CHLORIDE 100 mmol/L (98-107); CO2 32 mmol/L (21-32); GLUCOSE,RANDOM 86 mg/dL (74-106); PHOSPHOROUS 4.4 mg/dL (2.5-4.9); POTASSIUM 4.3 mmol/L (3.5-5.1); SODIUM 139 mmol/L (136-145)
[2017-10-05] MEDS ORDERED: EPOETIN ALFA 6,000 UNIT, EPOETIN ALFA 2,000 UNIT IVPUSH ONE (09:00)
[2017-10-05 09:10] LABS: CREATININE 8.3 mg/dL (0.7-1.3)
[2017-10-05] MEDS: COLLAGENASE CLOSTRIDIUM HIST. 30 GRAMS TUBE TP SCH (10:00)
--- NOTE | 2017-10-05 10:07 | PN ---
Physical Exam: SUBJECTIVE: Patient seen and examined on HD. Tolerating well. Appears calm and happy today. OBJECTIVE: Vital Signs Period Temp Pulse Resp BP Sys/Mora Pulse Ox Last 24 Hr 97.2 F-98.7 F 86-97 18-20 126-157/69-96 92-92 PE Neuro: awake, alert, NAD Pulm: clear anteriorly CV: s1 s2 rrr no mrg Abd: s nt nd +bs Ext: warm, no le edema Access: RCW permacath Laboratory Results - last 24 hr 10/05/17 10/05/17 10/05/17 07:50 07:50 07:50 WBC 7.7 RBC 2.94 L Hgb 8.8 L Hct 25.6 L MCV 86.8 MCH 30.0 MCHC 34.6 RDW 13.9 Plt Count 277 MPV 7.6 Sodium 139 Cancelled Potassium 4.3 Cancelled Chloride 100 Cancelled Carbon Dioxide 32 D Cancelled Anion Gap 7 L Cancelled BUN 38 H Cancelled Creatinine 8.3 H* Cancelled Random Glucose 86 Cancelled Calcium 8.4 L Cancelled Phosphorus 4.4 Cancelled Ferritin 374.432 H Active Medications Generic Name Dose Route Start Last Admin Trade Name Freq PRN Reason Stop Dose Admin Acetaminophen 1,000 mg 09/24/17 19:19 Ofirmev Injection - IVPB Q6H PRN PAIN LEVEL 1-5 Acetaminophen 650 mg 10/01/17 20:52 10/01/17 21:09 Tylenol - PO 650 mg Q6H PRN Administration FEVER Albuterol/Ipratropium 1 amp 09/30/17 19:13 10/02/17 08:40 Duoneb - NEB 1 amp Q6H PRN Administration SHORTNESS OF BREATH Amino Acids 30 ml 09/25/17 10:00 10/04/17 10:09 Prosource No Carb Liquid Pkt NGT [address] Administration Collagenase 1 applic 10/02/17 16:00 10/04/17 10:18 Santyl - TP [address] Administration Diphenhydramine HCl 25 mg 09/24/17 19:19 10/03/17 07:33 Benadryl - PO 25 mg Q6H PRN Administration FOR ITCHING Docusate Sodium 100 mg 09/24/17 19:19 Colace Liquid - NGT Q8H PRN CONSTIPATION Heparin Sodium (Porcine) 5,000 unit 10/04/17 22:00 10/05/17 06:03 Heparin - SQ 5,[address] Administration Hydralazine HCl 100 mg 09/24/17 22:00 10/05/17 06:04 Apresoline - PO [address] Administration Hydralazine HCl 10 mg 09/24/17 19:19 09/27/17 19:05 Apresoline Injection - IVPUSH 10 mg Q4H PRN Administration HYPERTENSION Levofloxacin 250 mg in 50 mls @ 50 mls/hr 10/03/17 16:00 10/03/17 16:49 Levaquin 250 Mg Premixed Ivpb - IVPB 50 mls/hr Q2D@[address] Administration Protocol Isosorbide Mononitrate 30 mg 09/24/17 22:00 10/04/17 21:15 Imdur - PO [address] Administration Labetalol HCl 200 mg 09/24/17 19:19 Normodyne - PO Q2H PRN HYPERTENSION Labetalol HCl 400 mg 09/24/17 22:00 10/05/17 06:04 Normodyne - PO [address] Administration Lacosamide 150 mg 09/24/17 11:57 10/04/17 21:15 Vimpat - PO [address] Administration Lacosamide 75 mg 09/26/17 15:00 10/03/17 16:49 Vimpat - PO [address] Administration Multivit/Ca Carb/B Cmplx/FA/Prenat 1 tablet 09/25/17 10:00 10/04/17 10:09 Nephro-Claudia - PO [address] Administration Nifedipine 90 mg 09/24/17 22:00 10/04/17 21:16 Procardia Xl - PO [address] Administration Nystatin 1 applic 09/25/17 00:00 10/05/17 06:04 Mycostatin Cream - TP Not Given Q6HPO LANE Ondansetron HCl 4 mg 09/27/17 14:32 Zofran Injection IVPUSH Q6H PRN NAUSEA AND/OR VOMITING Sevelamer Carbonate 1,600 mg 09/25/17 08:00 10/04/17 17:05 Renvela - PO 1,[address] Administration Assessment: 22 year old male with PMHx of HTN, autism, epilepsy, who presented to the ED with diarrhea and increased dyspnea and was found to have hypertensive emergency, ANNA, pneumonia with a complicated hospital course including acute respiratory failure requiring intubation and a persistent left pleural effusion, s/p thoracentesis 09/02, s/p pigtail 09/04, then requiring vats and pneumolysis on 09/17 with chest tubes, now pulled. Permacath in place, awaiting AVF. Plan: 1. Acute hypoxic respiratory failure, large left pleural effusion - Resolved - S/p bronchoscopy/left VATS/drainage of effusion/pneumolysis 09/17 2. New leukocytosis, s/p severe sepsis / pneumonia - Resolved, off abx 3. ANNA, ESRD MWF - Pre moreno results indicating kidney disease from htn - HD today - Outpt HD with [facility] - L AVF tentatively scheduled for Sunday 4. Hypertensive emergency - BP controlled - Continue Hydralazine - Continue Imdur - Continue Labetolol - Continue Procardia Xl 5. Epilepsy - On day of dialysis pt to receive additional 75mg after HD - Continue increased Vimpat 150mg BID 6. Ppx - Heparin 5,000u sq TID CODE STATUS: FULL CODE Visit type - Emergency Visit Emergency Visit: Yes ED Registration Date: 08/29/17 Care time: The patient presented to the Emergency Department on the above date and was hospitalized for further evaluation of their emergent condition. - New Patient This patient is new to me today: No - Critical Care Critical Care patient: No
[2017-10-05] MEDS ORDERED: PT OWN MED DRAWER 7, Y5N ONE (10:30)
--- NOTE | 2017-10-05 11:35 | PN ---
Progress Note (short form) - Note Progress Note: CC: htn urgency S: pt does not communicate well. appears comfortable. no overnight events. o: Current Medications Generic Name Dose Route Start Last Admin Trade Name Freq PRN Reason Stop Dose Admin Acetaminophen 1,000 mg 09/24/17 19:19 Ofirmev Injection - IVPB Q6H PRN PAIN LEVEL 1-5 Acetaminophen 650 mg 10/01/17 20:52 10/01/17 21:09 Tylenol - PO 650 mg Q6H PRN Administration FEVER Albuterol/Ipratropium 1 amp 09/30/17 19:13 10/02/17 08:40 Duoneb - NEB 1 amp Q6H PRN Administration SHORTNESS OF BREATH Amino Acids 30 ml 09/25/17 10:00 10/04/17 10:09 Prosource No Carb Liquid Pkt NGT [address] Administration Collagenase 1 applic 10/02/17 16:00 10/04/17 10:18 Santyl - TP [address] Administration Diphenhydramine HCl 25 mg 09/24/17 19:19 10/03/17 07:33 Benadryl - PO 25 mg Q6H PRN Administration FOR ITCHING Docusate Sodium 100 mg 09/24/17 19:19 Colace Liquid - NGT Q8H PRN CONSTIPATION Heparin Sodium (Porcine) 5,000 unit 10/04/17 22:00 10/05/17 06:03 Heparin - SQ 5,[address] Administration Hydralazine HCl 100 mg 09/24/17 22:00 10/05/17 06:04 Apresoline - PO [address] Administration Hydralazine HCl 10 mg 09/24/17 19:19 09/27/17 19:05 Apresoline Injection - IVPUSH 10 mg Q4H PRN Administration HYPERTENSION Levofloxacin 250 mg in 50 mls @ 50 mls/hr 10/03/17 16:00 10/03/17 16:49 Levaquin 250 Mg Premixed Ivpb - IVPB 50 mls/hr Q2D@[address] Administration Protocol Isosorbide Mononitrate 30 mg 09/24/17 22:00 10/04/17 21:15 Imdur - PO [address] Administration Labetalol HCl 200 mg 09/24/17 19:19 Normodyne - PO Q2H PRN HYPERTENSION Labetalol HCl 400 mg 09/24/17 22:00 10/05/17 06:04 Normodyne - PO [address] Administration Lacosamide 150 mg 09/24/17 11:57 10/04/17 21:15 Vimpat - PO [address] Administration Lacosamide 75 mg 09/26/17 15:00 10/03/17 16:49 Vimpat - PO [address] Administration Multivit/Ca Carb/B Cmplx/FA/Prenat 1 tablet 09/25/17 10:00 10/04/17 10:09 Nephro-Claudia - PO [address] Administration Nifedipine 90 mg 09/24/17 22:00 10/04/17 21:16 Procardia Xl - PO [address] Administration Nystatin 1 applic 09/25/17 00:00 10/05/17 06:04 Mycostatin Cream - TP Not Given Q6HPO LANE Ondansetron HCl 4 mg 09/27/17 14:32 Zofran Injection IVPUSH Q6H PRN NAUSEA AND/OR VOMITING Sevelamer Carbonate 1,600 mg 09/25/17 08:00 10/04/17 17:05 Renvela - PO 1,[address] Administration Vital Signs Period Temp Pulse Resp BP Sys/Mora Pulse Ox Last 24 Hr 97.2 F-98.7 F 86-97 18-20 126-172/69-99 92-92 nad, calm nad no jvd rrr s1 s2 no mrg cta bl nl effort. no jaundice diaphoresis trace le edema bl abd nd pos bs CBC, BMP 10/05/17 07:50 10/05/17 07:50 echo 08/2017: nl lv/rv, no sig valve path a/p: 22 m hx autism, seizures, possible underlying ckd/htn here with ams, respiratory failure/sepsis, anna requiring HD and hypertensive urgency. Cardiac course complicated by mild troponin elevation and prolonged qtc. 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 was uncontrolled when here 12/11 for seizure, with agitation then--no BP checked since that discharge she says -has had difficult to control BP here, requiring nifedipine and labetalol drips (the latter up to 2mg/min, i.e. 2800 mg/day, without good bp control) 09/14: increased hydralzine to 100 tid and add imdur 30 qd -09/15: BP severely elevated again this am (220/100). change nifedip 120 qd to 90 bid to cover overnight/early AM bp's (very short-acting med). change coreg to labetalol 400 TID for greater potency (with prn PO doses ordered), will likely need closer to 600-800 TID labetlol, will titrate up as needed -BP much improved, continue current regimen -will plan to try to cut down nifedipine dose (to 60 bid) +/- hydralazine dose later, if bp remains well controlled. -deferring RAAS-blockers for now given ANNA with renal w/u ongoing anna requiring HD: -creat 2.1 here in november, ? no prior w/u per mother -suspect hypertensive renal failure, progressive since then, though possible causality in other direction (no MD f/u since november, per mother) -renal eval in progress. biopsy done. -getting HD here, plans for avf next week on sunday abnormal troponins - flat trend, with intermediate range values - secondary to sepsis myocardial injury, vs demand ischemia (severe HTN, with tachycardia to 120s-130s). no clinical findings to support acs here. anemia: -chronic, mgm't per primary team respiratory failure s/p intubation (resolved), pleural effusion - with white out of left lung - 09/04 s/p chest tube placement. - plan per critical care/thoracic surgery--s/p Bronchoscopy, left VATS, drainage of effusion, pneumolysis 09/17. now with chest tube x 2. - 09/20 one chest tube removed. - 09/21 second chest tube removed.
[2017-10-05] MEDS: LACOSAMIDE 50 MG TABLET PO SCH ×3 (12:04→21:37)
[2017-10-05] MEDS: ISOSORBIDE MONONITRATE 30 MG TAB.SR.24H (FP) PO SCH ×2 (12:04→21:38)
[2017-10-05] MEDS: NIFEdipine E.R. 90 MG TABLET (FP) PO SCH ×2 (12:04→21:37)
[2017-10-05] MEDS: VITAMIN B COMP W-C 1 EA TABLET PO SCH (12:05)
[2017-10-05] MEDS: AMINO ACIDS/PROTEIN HYDROLYS 30 ML LIQUID.PKT NGT SCH (12:05)
--- NOTE | 2017-10-05 13:53 | PN ---
Progress Note, Physician History of Present Illness: PULMONARY ALERT,NAD,-CONGESTION - Current Medication List Current Medications: Active Medications Acetaminophen (Ofirmev Injection -) 1,000 mg IVPB Q6H PRN PRN Reason: PAIN LEVEL 1-5 Acetaminophen (Tylenol -) 650 mg PO Q6H PRN PRN Reason: FEVER Last Admin: 10/01/17 21:09 Dose: 650 mg Albuterol/Ipratropium (Duoneb -) 1 amp NEB Q6H PRN PRN Reason: SHORTNESS OF BREATH Last Admin: 10/02/17 08:40 Dose: 1 amp Amino Acids (Prosource No Carb Liquid Pkt) 30 ml NGT DAILY [facility] Last Admin: 10/05/17 12:05 Dose: 30 ml Collagenase (Santyl -) 1 applic TP DAILY [facility] Last Admin: 10/04/17 10:18 Dose: 1 applic Diphenhydramine HCl (Benadryl -) 25 mg PO Q6H PRN PRN Reason: FOR ITCHING Last Admin: 10/03/17 07:33 Dose: 25 mg Docusate Sodium (Colace Liquid -) 100 mg NGT Q8H PRN PRN Reason: CONSTIPATION Heparin Sodium (Porcine) (Heparin -) 5,000 unit SQ TID [facility] Last Admin: 10/05/17 06:03 Dose: 5,000 unit Hydralazine HCl (Apresoline -) 100 mg PO TID [facility] Last Admin: 10/05/17 06:04 Dose: 100 mg Hydralazine HCl (Apresoline Injection -) 10 mg IVPUSH Q4H PRN PRN Reason: HYPERTENSION Last Admin: 09/27/17 19:05 Dose: 10 mg Levofloxacin (Levaquin 250 Mg Premixed Ivpb -) 250 mg in 50 mls @ 50 mls/hr IVPB Q2D@[address] PRN Reason: Protocol Last Admin: 10/05/17 12:04 Dose: 50 mls/hr Isosorbide Mononitrate (Imdur -) 30 mg PO BID [facility] Last Admin: 10/05/17 12:04 Dose: 30 mg Labetalol HCl (Normodyne -) 200 mg PO Q2H PRN PRN Reason: HYPERTENSION Labetalol HCl (Normodyne -) 400 mg PO TID [facility] Last Admin: 10/05/17 06:04 Dose: 400 mg Lacosamide (Vimpat -) 150 mg PO BID [facility] Last Admin: 10/05/17 12:04 Dose: 150 mg Lacosamide (Vimpat -) 75 mg PO MOWEFR [facility] Last Admin: 10/03/17 16:49 Dose: 75 mg Multivit/Ca Carb/B Cmplx/FA/Prenat (Nephro-Claudia -) 1 tablet PO DAILY [facility] Last Admin: 10/05/17 12:05 Dose: 1 tablet Nifedipine (Procardia Xl -) 90 mg PO BID [facility] Last Admin: 10/05/17 12:04 Dose: 90 mg Nystatin (Mycostatin Cream -) 1 applic TP Q6HPO [facility] Last Admin: 10/05/17 12:07 Dose: Not Given Ondansetron HCl (Zofran Injection) 4 mg IVPUSH Q6H PRN PRN Reason: NAUSEA AND/OR VOMITING Sevelamer Carbonate (Renvela -) 1,600 mg PO TIDCM [facility] Last Admin: 10/05/17 12:07 Dose: 1,600 mg - Objective Vital Signs: Vital Signs Temperature 97.3 F L 10/05/17 06:00 Pulse Rate 93 H 10/05/17 12:06 Respiratory Rate 18 10/05/17 12:06 Blood Pressure 170/89 10/05/17 12:06 O2 Sat by Pulse Oximetry (%) 92 L 10/04/17 22:00 Constitutional: Yes: Well Nourished, Calm Eyes: Yes: WNL HENT: Yes: WNL Neck: Yes: WNL Cardiovascular: Yes: Regular Rate and Rhythm, S1, S2 Respiratory: Yes: Diminished Gastrointestinal: Yes: Normal Bowel Sounds, Soft Extremities: Yes: WNL Edema: No Labs: CBC, BMP 10/05/17 07:50 10/05/17 07:50 INR, PTT INR 0.93 (0.82-1.09) 09/26/17 05:40 Fibrinogen 558.0 mg/dL (238-498) H 09/17/17 06:45 Problem List - Problems (1) Respiratory failure Code(s): J96.90 - RESPIRATORY FAILURE, UNSP, UNSP W HYPOXIA OR HYPERCAPNIA (2) Acute renal failure Code(s): N17.9 - ACUTE KIDNEY FAILURE, UNSPECIFIED Qualifiers: Acute renal failure type: unspecified Qualified Code(s): N17.9 - Acute kidney failure, unspecified (3) Anemia Code(s): D64.9 - ANEMIA, UNSPECIFIED (4) Autism Code(s): F84.0 - AUTISTIC DISORDER (5) Hypertensive urgency Code(s): I16.0 - HYPERTENSIVE URGENCY (6) Pneumonia Code(s): J18.9 - PNEUMONIA, UNSPECIFIED ORGANISM Qualifiers: Pneumonia type: due to unspecified organism Laterality: unspecified laterality Lung location: unspecified part of lung Qualified Code(s): J18.9 - Pneumonia, unspecified organism Assessment/Plan A/P Hypertensive Urgency resolved Acute Kidney Injury requiring HD Acute Hypoxic Respiratory Failure improved Pneumonia Loculated Pleural Effusion s/p L VATS/pneumolysis Severe Sepsis resolved Lactic Acidosis resolved Thrombocytopenia improved Anemia Autism - antibiotics as per ID - HD per renal - monitor H/H - monitor urine output, creatinine - BP control - O2 - PO as tolerated - DVT/GI prophylaxis DR WALSH
[2017-10-05] MEDS ORDERED: EPOETIN ALFA 2,000 UNIT/1 ML VIAL IVPUSH ONE (14:45)
[2017-10-05] MEDS: ALBUTEROL SO4 2.5/IPRATROPIUM 0.5 INH SOL 3 ML VIAL.NEB. NEB PRN (16:06)
--- NOTE | 2017-10-05 16:14 | PN ---
Progress Note, Physician History of Present Illness: Pt seen and examined at bedside. He tolerated HD today. - Current Medication List Current Medications: Active Medications Acetaminophen (Ofirmev Injection -) 1,000 mg IVPB Q6H PRN PRN Reason: PAIN LEVEL 1-5 Acetaminophen (Tylenol -) 650 mg PO Q6H PRN PRN Reason: FEVER Last Admin: 10/01/17 21:09 Dose: 650 mg Albuterol/Ipratropium (Duoneb -) 1 amp NEB Q6H PRN PRN Reason: SHORTNESS OF BREATH Last Admin: 10/05/17 16:06 Dose: 1 amp Amino Acids (Prosource No Carb Liquid Pkt) 30 ml NGT DAILY [facility] Last Admin: 10/05/17 12:05 Dose: 30 ml Collagenase (Santyl -) 1 applic TP DAILY [facility] Last Admin: 10/05/17 10:00 Dose: 1 applic Diphenhydramine HCl (Benadryl -) 25 mg PO Q6H PRN PRN Reason: FOR ITCHING Last Admin: 10/03/17 07:33 Dose: 25 mg Docusate Sodium (Colace Liquid -) 100 mg NGT Q8H PRN PRN Reason: CONSTIPATION Ferrous Sulfate (Feosol -) 325 mg PO DAILY [facility] Heparin Sodium (Porcine) (Heparin -) 5,000 unit SQ TID [facility] Last Admin: 10/05/17 15:25 Dose: 5,000 unit Hydralazine HCl (Apresoline -) 100 mg PO TID [facility] Last Admin: 10/05/17 15:12 Dose: 100 mg Hydralazine HCl (Apresoline Injection -) 10 mg IVPUSH Q4H PRN PRN Reason: HYPERTENSION Last Admin: 09/27/17 19:05 Dose: 10 mg Levofloxacin (Levaquin 250 Mg Premixed Ivpb -) 250 mg in 50 mls @ 50 mls/hr IVPB Q2D@[address] PRN Reason: Protocol Last Admin: 10/05/17 12:04 Dose: 50 mls/hr Isosorbide Mononitrate (Imdur -) 30 mg PO BID [facility] Last Admin: 10/05/17 12:04 Dose: 30 mg Labetalol HCl (Normodyne -) 200 mg PO Q2H PRN PRN Reason: HYPERTENSION Labetalol HCl (Normodyne -) 400 mg PO TID [facility] Last Admin: 10/05/17 15:11 Dose: 400 mg Lacosamide (Vimpat -) 150 mg PO BID [facility] Last Admin: 10/05/17 12:04 Dose: 150 mg Lacosamide (Vimpat -) 75 mg PO MOWEFR [facility] Last Admin: 10/05/17 15:12 Dose: 75 mg Multivit/Ca Carb/B Cmplx/FA/Prenat (Nephro-Claudia -) 1 tablet PO DAILY [facility] Last Admin: 10/05/17 12:05 Dose: 1 tablet Nifedipine (Procardia Xl -) 90 mg PO BID [facility] Last Admin: 10/05/17 12:04 Dose: 90 mg Nystatin (Mycostatin Cream -) 1 applic TP Q6HPO [facility] Last Admin: 10/05/17 12:07 Dose: Not Given Ondansetron HCl (Zofran Injection) 4 mg IVPUSH Q6H PRN PRN Reason: NAUSEA AND/OR VOMITING Sevelamer Carbonate (Renvela -) 1,600 mg PO TIDCM [facility] Last Admin: 10/05/17 12:07 Dose: 1,600 mg - Objective Vital Signs: Vital Signs Temperature 97.3 F L 10/05/17 06:00 Pulse Rate 93 H 10/05/17 12:06 Respiratory Rate 18 10/05/17 12:06 Blood Pressure 170/89 10/05/17 12:06 O2 Sat by Pulse Oximetry (%) 94 L 10/05/17 10:00 Constitutional: Yes: Calm Eyes: Yes: Conjunctiva Clear HENT: Yes: Atraumatic Neck: Yes: Supple Cardiovascular: Yes: S1, S2 Respiratory: Yes: CTA Bilaterally Gastrointestinal: Yes: Soft Genitourinary: Yes: Incontinence Musculoskeletal: Yes: WNL Edema: No Neurological: Yes: Pre-Existing Deficit Labs: CBC, BMP 10/05/17 07:50 10/05/17 07:50 INR, PTT INR 0.93 (0.82-1.09) 09/26/17 05:40 Fibrinogen 558.0 mg/dL (238-498) H 09/17/17 06:45 Problem List - Problems (1) Acute renal failure Code(s): N17.9 - ACUTE KIDNEY FAILURE, UNSPECIFIED Qualifiers: Acute renal failure type: unspecified Qualified Code(s): N17.9 - Acute kidney failure, unspecified (2) Anemia Code(s): D64.9 - ANEMIA, UNSPECIFIED (3) Hyperkalemia Code(s): E87.5 - HYPERKALEMIA (4) Hypertensive urgency Code(s): I16.0 - HYPERTENSIVE URGENCY (5) Sepsis Code(s): A41.9 - SEPSIS, UNSPECIFIED ORGANISM Qualifiers: Sepsis type: sepsis due to unspecified organism Qualified Code(s): A41.9 - Sepsis, unspecified organism (6) Thrombocytopenia Code(s): D69.6 - THROMBOCYTOPENIA, UNSPECIFIED (7) Seizure Code(s): R56.9 - UNSPECIFIED CONVULSIONS Assessment/Plan Current Medications Generic Name Dose Route Start Last Admin Trade Name Freq PRN Reason Stop Dose Admin Acetaminophen 1,000 mg 09/24/17 19:19 Ofirmev Injection - IVPB Q6H PRN PAIN LEVEL 1-5 Acetaminophen 650 mg 10/01/17 20:52 10/01/17 21:09 Tylenol - PO 650 mg Q6H PRN Administration FEVER Albuterol/Ipratropium 1 amp 09/30/17 19:13 10/05/17 16:06 Duoneb - NEB 1 amp Q6H PRN Administration SHORTNESS OF BREATH Amino Acids 30 ml 09/25/17 10:00 10/05/17 12:05 Prosource No Carb Liquid Pkt NGT [address] Administration Collagenase 1 applic 10/02/17 16:00 10/05/17 10:00 Santyl - TP [address] Administration Diphenhydramine HCl 25 mg 09/24/17 19:19 10/03/17 07:33 Benadryl - PO 25 mg Q6H PRN Administration FOR ITCHING Docusate Sodium 100 mg 09/24/17 19:19 Colace Liquid - NGT Q8H PRN CONSTIPATION Ferrous Sulfate 325 mg 10/05/17 16:15 Feosol - PO DAILY LANE Heparin Sodium (Porcine) 5,000 unit 10/04/17 22:00 10/05/17 15:25 Heparin - SQ 5,[address] Administration Hydralazine HCl 100 mg 09/24/17 22:00 10/05/17 15:12 Apresoline - PO [address] Administration Hydralazine HCl 10 mg 09/24/17 19:19 09/27/17 19:05 Apresoline Injection - IVPUSH 10 mg Q4H PRN Administration HYPERTENSION Levofloxacin 250 mg in 50 mls @ 50 mls/hr 10/03/17 16:00 10/05/17 12:04 Levaquin 250 Mg Premixed Ivpb - IVPB 50 mls/hr Q2D@[address] Administration Protocol Isosorbide Mononitrate 30 mg 09/24/17 22:00 10/05/17 12:04 Imdur - PO [address] Administration Labetalol HCl 200 mg 09/24/17 19:19 Normodyne - PO Q2H PRN HYPERTENSION Labetalol HCl 400 mg 09/24/17 22:00 10/05/17 15:11 Normodyne - PO [address] Administration Lacosamide 150 mg 09/24/17 11:57 10/05/17 12:04 Vimpat - PO [address] Administration Lacosamide 75 mg 09/26/17 15:00 10/05/17 15:12 Vimpat - PO 75 mg MOWEFR [facility] Administration Multivit/Ca Carb/B Cmplx/FA/Prenat 1 tablet 09/25/17 10:00 10/05/17 12:05 Nephro-Claudia - PO [address] Administration Nifedipine 90 mg 09/24/17 22:00 10/05/17 12:04 Procardia Xl - PO [address] Administration Nystatin 1 applic 09/25/17 00:00 10/05/17 12:07 Mycostatin Cream - TP Not Given Q6HPO [facility] Ondansetron HCl 4 mg 09/27/17 14:32 Zofran Injection IVPUSH Q6H PRN NAUSEA AND/OR VOMITING Sevelamer Carbonate 1,600 mg 09/25/17 08:00 10/05/17 12:07 Renvela - PO 1,[address] Administration Impression 1. ANNA 2. HTN urgency/emergency 3. hyperkalemia 4. hyponatremia 5. autism 6. hx of seizure 7. anemia 8. CKD 9. lactic acidosis improving 10. thrombocytopenia 11. hyperkalemia 12. pleural effusion 13. acute resp failure requiring intubation 14. ESRD Plan - HD today - start iron supplements - next HD Sunday - pt for AV fistula - epogen for anemia - discussed plan with pts mother Dr Velasquez
--- NOTE | 2017-10-05 16:31 | PN ---
Progress Note, Physician History of Present Illness: Awake. More responsive No acute distress Afebrile WBC improved WNL No reported N/V/D, malodorous urine - Current Medication List Current Medications: Active Medications Acetaminophen (Ofirmev Injection -) 1,000 mg IVPB Q6H PRN PRN Reason: PAIN LEVEL 1-5 Acetaminophen (Tylenol -) 650 mg PO Q6H PRN PRN Reason: FEVER Last Admin: 10/01/17 21:09 Dose: 650 mg Albuterol/Ipratropium (Duoneb -) 1 amp NEB Q6H PRN PRN Reason: SHORTNESS OF BREATH Last Admin: 10/05/17 16:06 Dose: 1 amp Amino Acids (Prosource No Carb Liquid Pkt) 30 ml NGT DAILY [facility] Last Admin: 10/05/17 12:05 Dose: 30 ml Collagenase (Santyl -) 1 applic TP DAILY [facility] Last Admin: 10/05/17 10:00 Dose: 1 applic Diphenhydramine HCl (Benadryl -) 25 mg PO Q6H PRN PRN Reason: FOR ITCHING Last Admin: 10/03/17 07:33 Dose: 25 mg Docusate Sodium (Colace Liquid -) 100 mg NGT Q8H PRN PRN Reason: CONSTIPATION Ferrous Sulfate (Feosol -) 325 mg PO DAILY@0800 [facility] Heparin Sodium (Porcine) (Heparin -) 5,000 unit SQ TID [facility] Last Admin: 10/05/17 15:25 Dose: 5,000 unit Hydralazine HCl (Apresoline -) 100 mg PO TID [facility] Last Admin: 10/05/17 15:12 Dose: 100 mg Hydralazine HCl (Apresoline Injection -) 10 mg IVPUSH Q4H PRN PRN Reason: HYPERTENSION Last Admin: 09/27/17 19:05 Dose: 10 mg Levofloxacin (Levaquin 250 Mg Premixed Ivpb -) 250 mg in 50 mls @ 50 mls/hr IVPB Q2D@[address] PRN Reason: Protocol Last Admin: 10/05/17 12:04 Dose: 50 mls/hr Isosorbide Mononitrate (Imdur -) 30 mg PO BID [facility] Last Admin: 10/05/17 12:04 Dose: 30 mg Labetalol HCl (Normodyne -) 200 mg PO Q2H PRN PRN Reason: HYPERTENSION Labetalol HCl (Normodyne -) 400 mg PO TID [facility] Last Admin: 10/05/17 15:11 Dose: 400 mg Lacosamide (Vimpat -) 150 mg PO BID [facility] Last Admin: 10/05/17 12:04 Dose: 150 mg Lacosamide (Vimpat -) 75 mg PO MOWEFR [facility] Last Admin: 10/05/17 15:12 Dose: 75 mg Multivit/Ca Carb/B Cmplx/FA/Prenat (Nephro-Claudia -) 1 tablet PO DAILY [facility] Last Admin: 10/05/17 12:05 Dose: 1 tablet Nifedipine (Procardia Xl -) 90 mg PO BID [facility] Last Admin: 10/05/17 12:04 Dose: 90 mg Nystatin (Mycostatin Cream -) 1 applic TP Q6HPO [facility] Last Admin: 10/05/17 12:07 Dose: Not Given Ondansetron HCl (Zofran Injection) 4 mg IVPUSH Q6H PRN PRN Reason: NAUSEA AND/OR VOMITING Sevelamer Carbonate (Renvela -) 1,600 mg PO TIDCM [facility] Last Admin: 10/05/17 12:07 Dose: 1,600 mg - Objective Vital Signs: Vital Signs Temperature 99.5 F 10/05/17 15:00 Pulse Rate 100 H 10/05/17 15:00 Respiratory Rate 20 10/05/17 15:00 Blood Pressure 157/68 10/05/17 15:00 O2 Sat by Pulse Oximetry (%) 94 L 10/05/17 10:00 Constitutional: Yes: No Distress Eyes: Yes: Conjunctiva Clear Cardiovascular: Yes: Regular Rate and Rhythm, S1, S2 Respiratory: Yes: Diminished Gastrointestinal: Yes: Normal Bowel Sounds, Soft. No: Tenderness Labs: CBC, BMP 10/05/17 07:50 10/05/17 07:50 INR, PTT INR 0.93 (0.82-1.09) 09/26/17 05:40 Fibrinogen 558.0 mg/dL (238-498) H 09/17/17 06:45 Assessment/Plan Leukocytosis ? source resolved Low grade fever resolved Cephalosporin allergy ESRD Continue levaquin one more dose For AVF Sunday Discussed with mother at bedside
[2017-10-05] MEDS: FERROUS SO4 325 MG TABLET (FP) PO SCH (17:14)
[2017-10-06] MEDS: NYSTATIN 100,000 UNIT/GM TOPICAL CREAM 15 GM TUBE TP SCH ×5 (00:18→21:25)
[2017-10-06 06:07] LABS: SERUM IRON SATURATION 26 % (15-55); TOTAL IRON BINDING CAPACITY 214 ug/dL (250-450); UIBC 159 ug/dL (111-343)
[2017-10-06] MEDS: LABETALOL HCL 200 MG TABLET (FP) PO SCH ×3 (06:09→21:08)
[2017-10-06] MEDS: HEPARIN NA (PORCINE) 5,000 UNITS/ML 1ML VIAL SQ SCH ×3 (06:09→21:07)
[2017-10-06] MEDS: hydrALAZINE HCL 50 MG TABLET (FP) PO SCH ×3 (06:09→21:08)
[2017-10-06 07:44] LABS: HEMATOCRIT 28.9 % (35.4-49); HEMOGLOBIN 9.7 GM/dL (11.7-16.9); MCH 29.7 pg (25.7-33.7); MCHC 33.7 g/dl (32.0-35.9); MEAN PLT VOLUME 7.2 fl (7.5-11.1); PLATELET COUNT 283 K/MM3 (134-434); RBC 3.29 M/mm3 (4.00-5.60)
[2017-10-06] MEDS ORDERED: PT OWN MED DRAWER 7, Y5N ONE ×2 (08:21→09:10)
[2017-10-06 08:29] LABS: CHLORIDE 99 mmol/L (98-107); POTASSIUM 4.1 mmol/L (3.5-5.1); SGOT/AST 18 U/L (15-37); SODIUM 140 mmol/L (136-145)
[2017-10-06 08:33] LABS: ALBUMIN 3.1 g/dl (3.4-5.0); ALK PHOS 116 U/L (45-117); ANION GAP 10 (8-16); BILIRUBIN,TOTAL 0.3 mg/dL (0.2-1.0); BLOOD UREA NITROGEN 27 mg/dL (7-18); CALCIUM 9.2 mg/dL (8.5-10.1); CO2 31 mmol/L (21-32); CREATININE 6.3 mg/dL (0.7-1.3); GLUCOSE,RANDOM 84 mg/dL (74-106); SGPT/ALT 20 U/L (12-78); TOT PROT 7.4 g/dl (6.4-8.2)
[2017-10-06] MEDS: SEVELAMER CARBONATE 800 MG TAB (FP) PO SCH ×3 (08:33→17:40)
[2017-10-06] MEDS: FERROUS SO4 325 MG TABLET (FP) PO SCH (08:34)
--- NOTE | 2017-10-06 08:44 | PN ---
Progress Note, Physician Chief Complaint: HTN emergency History of Present Illness: appears calm, comfortable. mother at bedside confirms no complaints or distress - Current Medication List Current Medications: Active Medications Acetaminophen (Ofirmev Injection -) 1,000 mg IVPB Q6H PRN PRN Reason: PAIN LEVEL 1-5 Acetaminophen (Tylenol -) 650 mg PO Q6H PRN PRN Reason: FEVER Last Admin: 10/01/17 21:09 Dose: 650 mg Amino Acids (Prosource No Carb Liquid Pkt) 30 ml NGT DAILY [facility] Last Admin: 10/05/17 12:05 Dose: 30 ml Collagenase (Santyl -) 1 applic TP DAILY [facility] Last Admin: 10/05/17 10:00 Dose: 1 applic Diphenhydramine HCl (Benadryl -) 25 mg PO Q6H PRN PRN Reason: FOR ITCHING Last Admin: 10/03/17 07:33 Dose: 25 mg Docusate Sodium (Colace Liquid -) 100 mg NGT Q8H PRN PRN Reason: CONSTIPATION Ferrous Sulfate (Feosol -) 325 mg PO DAILY@0800 [facility] Last Admin: 10/06/17 08:34 Dose: 325 mg Heparin Sodium (Porcine) (Heparin -) 5,000 unit SQ TID [facility] Last Admin: 10/06/17 06:09 Dose: 5,000 unit Hydralazine HCl (Apresoline -) 100 mg PO TID [facility] Last Admin: 10/06/17 06:09 Dose: 100 mg Hydralazine HCl (Apresoline Injection -) 10 mg IVPUSH Q4H PRN PRN Reason: HYPERTENSION Last Admin: 09/27/17 19:05 Dose: 10 mg Levofloxacin (Levaquin 250 Mg Premixed Ivpb -) 250 mg in 50 mls @ 50 mls/hr IVPB Q2D@[address] PRN Reason: Protocol Last Admin: 10/05/17 12:04 Dose: 50 mls/hr Isosorbide Mononitrate (Imdur -) 30 mg PO BID [facility] Last Admin: 10/05/17 21:38 Dose: 30 mg Labetalol HCl (Normodyne -) 200 mg PO Q2H PRN PRN Reason: HYPERTENSION Labetalol HCl (Normodyne -) 400 mg PO TID [facility] Last Admin: 10/06/17 06:09 Dose: 400 mg Lacosamide (Vimpat -) 150 mg PO BID [facility] Last Admin: 10/05/17 21:37 Dose: 150 mg Lacosamide (Vimpat -) 75 mg PO MOWEFR [facility] Last Admin: 10/05/17 15:12 Dose: 75 mg Multivit/Ca Carb/B Cmplx/FA/Prenat (Nephro-Claudia -) 1 tablet PO DAILY [facility] Last Admin: 10/05/17 12:05 Dose: 1 tablet Nifedipine (Procardia Xl -) 90 mg PO BID [facility] Last Admin: 10/05/17 21:37 Dose: 90 mg Nystatin (Mycostatin Cream -) 1 applic TP Q6HPO [facility] Last Admin: 10/06/17 06:04 Dose: Not Given Ondansetron HCl (Zofran Injection) 4 mg IVPUSH Q6H PRN PRN Reason: NAUSEA AND/OR VOMITING Sevelamer Carbonate (Renvela -) 1,600 mg PO TIDCM [facility] Last Admin: 10/06/17 08:33 Dose: 1,600 mg - Objective Vital Signs: Vital Signs Temperature 98.3 F 10/06/17 06:03 Pulse Rate 103 H 10/06/17 06:03 Respiratory Rate 18 10/06/17 06:03 Blood Pressure 156/68 10/06/17 06:03 O2 Sat by Pulse Oximetry (%) 95 10/05/17 22:00 Constitutional: Yes: Well Nourished, No Distress, Calm Cardiovascular: Yes: Regular Rate and Rhythm, S1, S2. No: Gallop, Murmur Respiratory: Yes: Regular, CTA Bilaterally. No: Accessory Muscle Use, Rales, Wheezes Extremities: No: Cold Edema: No Neurological: Yes: Alert. No: Seizure Psychiatric: No: Agitated Labs: CBC, BMP 10/06/17 07:00 10/06/17 07:00 INR, PTT INR 0.93 (0.82-1.09) 09/26/17 05:40 Fibrinogen 558.0 mg/dL (238-498) H 09/17/17 06:45 Assessment/Plan echo 08/2017: nl lv/rv, no sig valve path a/p: 22 m hx autism, seizures, possible underlying ckd/htn here with ams, respiratory failure/sepsis, anna requiring HD and hypertensive urgency. Cardiac course complicated by mild troponin elevation and prolonged qtc. HTN emergency: -initially with difficult to control BP -BP much improved on current regimen, ranging 140s-160s for the most part -try decr hydral to 50 TID, incr labetalol to 600 TID (to minimize risk of rare but severe hydralazine toxicities). observe BP trend -cont high dose nifedipine for now as doing, monitor for severe constipation -deferring RAAS-blockers for now given ANNA with renal w/u ongoing ANNA-->ESRD -per renal, biopsy c/w end-stage hypertensive renal dz -on HD abnormal troponins - flat trend, with intermediate range values - secondary to sepsis myocardial injury, vs demand ischemia (severe HTN, with tachycardia to 120s-130s). no clinical findings to support acs here. anemia: -chronic, ? sec to CDK -mgm't per primary team hypoxic respiratory failure s/p intubation, PNA with loculated parapneumonic effusion -s/p VATS/pleurodesis, chest tubes now out
[2017-10-06] MEDS: AMINO ACIDS/PROTEIN HYDROLYS 30 ML LIQUID.PKT NGT SCH (09:13)
[2017-10-06] MEDS: LACOSAMIDE 50 MG TABLET PO SCH ×2 (09:14→21:08)
[2017-10-06] MEDS: NIFEdipine E.R. 90 MG TABLET (FP) PO SCH ×2 (09:14→21:07)
[2017-10-06] MEDS: ISOSORBIDE MONONITRATE 30 MG TAB.SR.24H (FP) PO SCH ×2 (09:14→21:08)
[2017-10-06] MEDS: VITAMIN B COMP W-C 1 EA TABLET PO SCH (09:15)
[2017-10-06] MEDS: COLLAGENASE CLOSTRIDIUM HIST. 30 GRAMS TUBE TP SCH (10:41)
--- NOTE | 2017-10-06 12:03 | PN ---
Progress Note, Physician History of Present Illness: Pt seen and examined at bedside. He is awake and appears comfortable. - Current Medication List Current Medications: Active Medications Acetaminophen (Ofirmev Injection -) 1,000 mg IVPB Q6H PRN PRN Reason: PAIN LEVEL 1-5 Acetaminophen (Tylenol -) 650 mg PO Q6H PRN PRN Reason: FEVER Last Admin: 10/01/17 21:09 Dose: 650 mg Amino Acids (Prosource No Carb Liquid Pkt) 30 ml NGT DAILY [facility] Last Admin: 10/06/17 09:13 Dose: 30 ml Collagenase (Santyl -) 1 applic TP DAILY [facility] Last Admin: 10/06/17 10:41 Dose: 1 applic Diphenhydramine HCl (Benadryl -) 25 mg PO Q6H PRN PRN Reason: FOR ITCHING Last Admin: 10/03/17 07:33 Dose: 25 mg Docusate Sodium (Colace Liquid -) 100 mg NGT Q8H PRN PRN Reason: CONSTIPATION Ferrous Sulfate (Feosol -) 325 mg PO DAILY@0800 [facility] Last Admin: 10/06/17 08:34 Dose: 325 mg Heparin Sodium (Porcine) (Heparin -) 5,000 unit SQ TID [facility] Last Admin: 10/06/17 06:09 Dose: 5,000 unit Hydralazine HCl (Apresoline Injection -) 10 mg IVPUSH Q4H PRN PRN Reason: HYPERTENSION Last Admin: 09/27/17 19:05 Dose: 10 mg Hydralazine HCl (Apresoline -) 50 mg PO TID [facility] Levofloxacin (Levaquin 250 Mg Premixed Ivpb -) 250 mg in 50 mls @ 50 mls/hr IVPB Q2D@[address] PRN Reason: Protocol Last Admin: 10/05/17 12:04 Dose: 50 mls/hr Isosorbide Mononitrate (Imdur -) 30 mg PO BID [facility] Last Admin: 10/06/17 09:14 Dose: 30 mg Labetalol HCl (Normodyne -) 200 mg PO Q2H PRN PRN Reason: HYPERTENSION Labetalol HCl (Normodyne -) 600 mg PO TID [facility] Lacosamide (Vimpat -) 150 mg PO BID [facility] Last Admin: 10/06/17 09:14 Dose: 150 mg Lacosamide (Vimpat -) 75 mg PO MOWEFR [facility] Last Admin: 10/05/17 15:12 Dose: 75 mg Multivit/Ca Carb/B Cmplx/FA/Prenat (Nephro-Claudia -) 1 tablet PO DAILY [facility] Last Admin: 10/06/17 09:15 Dose: 1 tablet Nifedipine (Procardia Xl -) 90 mg PO BID [facility] Last Admin: 10/06/17 09:14 Dose: 90 mg Nystatin (Mycostatin Cream -) 1 applic TP Q6HPO [facility] Last Admin: 10/06/17 06:04 Dose: Not Given Ondansetron HCl (Zofran Injection) 4 mg IVPUSH Q6H PRN PRN Reason: NAUSEA AND/OR VOMITING Sevelamer Carbonate (Renvela -) 1,600 mg PO TIDCM [facility] Last Admin: 10/06/17 08:33 Dose: 1,600 mg - Objective Vital Signs: Vital Signs Temperature 98.4 F 10/06/17 08:40 Pulse Rate 90 10/06/17 08:40 Respiratory Rate 18 10/06/17 08:40 Blood Pressure 150/100 10/06/17 08:40 O2 Sat by Pulse Oximetry (%) 95 10/06/17 10:00 Constitutional: Yes: Calm Eyes: Yes: Conjunctiva Clear HENT: Yes: Atraumatic Neck: Yes: Supple Cardiovascular: Yes: S1, S2 Respiratory: Yes: CTA Bilaterally Gastrointestinal: Yes: Soft Genitourinary: Yes: Incontinence Musculoskeletal: Yes: WNL Edema: No Integumentary: Yes: WNL Neurological: Yes: Pre-Existing Deficit Labs: CBC, BMP 10/06/17 07:00 10/06/17 07:00 INR, PTT INR 0.93 (0.82-1.09) 09/26/17 05:40 Fibrinogen 558.0 mg/dL (238-498) H 09/17/17 06:45 Problem List - Problems (1) Acute renal failure Code(s): N17.9 - ACUTE KIDNEY FAILURE, UNSPECIFIED Qualifiers: Acute renal failure type: unspecified Qualified Code(s): N17.9 - Acute kidney failure, unspecified (2) Anemia Code(s): D64.9 - ANEMIA, UNSPECIFIED (3) Hyperkalemia Code(s): E87.5 - HYPERKALEMIA (4) Hypertensive urgency Code(s): I16.0 - HYPERTENSIVE URGENCY (5) Sepsis Code(s): A41.9 - SEPSIS, UNSPECIFIED ORGANISM Qualifiers: Sepsis type: sepsis due to unspecified organism Qualified Code(s): A41.9 - Sepsis, unspecified organism (6) Thrombocytopenia Code(s): D69.6 - THROMBOCYTOPENIA, UNSPECIFIED (7) Seizure Code(s): R56.9 - UNSPECIFIED CONVULSIONS Assessment/Plan Current Medications Generic Name Dose Route Start Last Admin Trade Name Freq PRN Reason Stop Dose Admin Acetaminophen 1,000 mg 09/24/17 19:19 Ofirmev Injection - IVPB Q6H PRN PAIN LEVEL 1-5 Acetaminophen 650 mg 10/01/17 20:52 10/01/17 21:09 Tylenol - PO 650 mg Q6H PRN Administration FEVER Amino Acids 30 ml 09/25/17 10:00 10/06/17 09:13 Prosource No Carb Liquid Pkt NGT [address] Administration Collagenase 1 applic 10/02/17 16:00 10/06/17 10:41 Santyl - TP [address] Administration Diphenhydramine HCl 25 mg 09/24/17 19:19 10/03/17 07:33 Benadryl - PO 25 mg Q6H PRN Administration FOR ITCHING Docusate Sodium 100 mg 09/24/17 19:19 Colace Liquid - NGT Q8H PRN CONSTIPATION Ferrous Sulfate 325 mg 10/05/17 16:15 10/06/17 08:34 Feosol - PO 325 mg DAILY@08[address] Administration Heparin Sodium (Porcine) 5,000 unit 10/04/17 22:00 10/06/17 06:09 Heparin - SQ 5,[address] Administration Hydralazine HCl 10 mg 09/24/17 19:19 09/27/17 19:05 Apresoline Injection - IVPUSH 10 mg Q4H PRN Administration HYPERTENSION Hydralazine HCl 50 mg 10/06/17 08:47 Apresoline - PO TID LANE Levofloxacin 250 mg in 50 mls @ 50 mls/hr 10/03/17 16:00 10/05/17 12:04 Levaquin 250 Mg Premixed Ivpb - IVPB 50 mls/hr Q2D@[address] Administration Protocol Isosorbide Mononitrate 30 mg 09/24/17 22:00 10/06/17 09:14 Imdur - PO [address] Administration Labetalol HCl 200 mg 09/24/17 19:19 Normodyne - PO Q2H PRN HYPERTENSION Labetalol HCl 600 mg 10/06/17 08:48 Normodyne - PO TID LANE Lacosamide 150 mg 09/24/17 11:57 10/06/17 09:14 Vimpat - PO [address] Administration Lacosamide 75 mg 09/26/17 15:00 10/05/17 15:12 Vimpat - PO [address] Administration Multivit/Ca Carb/B Cmplx/FA/Prenat 1 tablet 09/25/17 10:00 10/06/17 09:15 Nephro-Claudia - PO [address] Administration Nifedipine 90 mg 09/24/17 22:00 10/06/17 09:14 Procardia Xl - PO [address] Administration Nystatin 1 applic 09/25/17 00:00 10/06/17 06:04 Mycostatin Cream - TP Not Given Q6HPO LANE Ondansetron HCl 4 mg 09/27/17 14:32 Zofran Injection IVPUSH Q6H PRN NAUSEA AND/OR VOMITING Sevelamer Carbonate 1,600 mg 09/25/17 08:00 10/06/17 08:33 Renvela - PO 1,[address] Administration Impression 1. ANNA 2. HTN urgency/emergency 3. hyperkalemia 4. hyponatremia 5. autism 6. hx of seizure 7. anemia 8. CKD 9. lactic acidosis improving 10. thrombocytopenia 11. hyperkalemia 12. pleural effusion 13. acute resp failure requiring intubation 14. ESRD Plan - next HD on Sunday - fistula next week - HD at [facility] for anemia - discussed plan with pts mother Dr Velasquez
--- NOTE | 2017-10-06 12:46 | PN ---
Progress Note (short form) - Note Progress Note: Resting in NAD. Remains afebrile. No documented acute events overnight. Intake & Output 10/03/17 10/04/17 10/05/17 10/06/17 23:59 23:59 23:59 23:59 Intake Total 60 220 200 370 Balance 60 220 200 370 Weight 174 lb 171 lb 12.8 oz 173 lb 12.8 oz 172 lb 12.8 oz Last Vital Signs Temp Pulse Resp BP Pulse Ox 98.4 F 90 18 150/100 95 10/06/17 08:40 10/06/17 08:40 10/06/17 08:40 10/06/17 08:40 10/06/17 10:00 Active Medications Acetaminophen (Ofirmev Injection -) 1,000 mg IVPB Q6H PRN PRN Reason: PAIN LEVEL 1-5 Acetaminophen (Tylenol -) 650 mg PO Q6H PRN PRN Reason: FEVER Last Admin: 10/01/17 21:09 Dose: 650 mg Amino Acids (Prosource No Carb Liquid Pkt) 30 ml NGT DAILY [facility] Last Admin: 10/06/17 09:13 Dose: 30 ml Collagenase (Santyl -) 1 applic TP DAILY [facility] Last Admin: 10/06/17 10:41 Dose: 1 applic Diphenhydramine HCl (Benadryl -) 25 mg PO Q6H PRN PRN Reason: FOR ITCHING Last Admin: 10/03/17 07:33 Dose: 25 mg Docusate Sodium (Colace Liquid -) 100 mg NGT Q8H PRN PRN Reason: CONSTIPATION Ferrous Sulfate (Feosol -) 325 mg PO DAILY@0800 [facility] Last Admin: 10/06/17 08:34 Dose: 325 mg Heparin Sodium (Porcine) (Heparin -) 5,000 unit SQ TID [facility] Last Admin: 10/06/17 06:09 Dose: 5,000 unit Hydralazine HCl (Apresoline Injection -) 10 mg IVPUSH Q4H PRN PRN Reason: HYPERTENSION Last Admin: 09/27/17 19:05 Dose: 10 mg Hydralazine HCl (Apresoline -) 50 mg PO TID [facility] Levofloxacin (Levaquin 250 Mg Premixed Ivpb -) 250 mg in 50 mls @ 50 mls/hr IVPB Q2D@[address] PRN Reason: Protocol Last Admin: 10/05/17 12:04 Dose: 50 mls/hr Isosorbide Mononitrate (Imdur -) 30 mg PO BID [facility] Last Admin: 10/06/17 09:14 Dose: 30 mg Labetalol HCl (Normodyne -) 200 mg PO Q2H PRN PRN Reason: HYPERTENSION Labetalol HCl (Normodyne -) 600 mg PO TID [facility] Lacosamide (Vimpat -) 150 mg PO BID [facility] Last Admin: 10/06/17 09:14 Dose: 150 mg Lacosamide (Vimpat -) 75 mg PO MOWEFR [facility] Last Admin: 10/05/17 15:12 Dose: 75 mg Multivit/Ca Carb/B Cmplx/FA/Prenat (Nephro-Claudia -) 1 tablet PO DAILY [facility] Last Admin: 10/06/17 09:15 Dose: 1 tablet Nifedipine (Procardia Xl -) 90 mg PO BID [facility] Last Admin: 10/06/17 09:14 Dose: 90 mg Nystatin (Mycostatin Cream -) 1 applic TP Q6HPO [facility] Last Admin: 10/06/17 06:04 Dose: Not Given Ondansetron HCl (Zofran Injection) 4 mg IVPUSH Q6H PRN PRN Reason: NAUSEA AND/OR VOMITING Sevelamer Carbonate (Renvela -) 1,600 mg PO TIDCM [facility] Last Admin: 10/06/17 12:07 Dose: 1,600 mg GENERAL: NAD HEENT: (-) Pallor LUNGS: Clear HEART: S1S2, regular rhythm, no murmurs ABDOMEN: soft, NT, ND EXTREMITIES: 2+ pulses, warm, well-perfused NEUROLOGICAL: non-focal Laboratory Results - last 24 hr 10/05/17 10/06/17 10/06/17 08:10 07:00 07:00 WBC 7.0 RBC 3.29 L Hgb 9.7 L D Hct 28.9 L MCV 88.0 MCH 29.7 MCHC 33.7 RDW 14.0 Plt Count 283 MPV 7.2 L Sodium 140 Potassium 4.1 Chloride 99 Carbon Dioxide 31 Anion Gap 10 BUN 27 H D Creatinine 6.3 H D Creat Clearance w eGFR 11.07 Random Glucose 84 Calcium 9.2 Iron 55 TIBC 214 L Iron Saturation 26 Total Bilirubin 0.3 D AST 18 ALT 20 Alkaline Phosphatase 116 Total Protein 7.4 Albumin 3.1 L ASSESSMENT AND PLAN: Hypertensive Urgency Acute Kidney Injury requiring HD Acute Hypoxic Respiratory Failure Pneumonia Loculated Pleural Effusion Hyponatremia Severe Sepsis Lactic Acidosis Thrombocytopenia improved Anemia Autism - ABX per ID - Supplemental O2 as needed - BP Meds as ordered - PO as tolerated - DVT/GI prophylaxis Dr Isidro
--- NOTE | 2017-10-06 14:09 | PN ---
Progress Note (short form) - Note Progress Note: Subjective: The patient was seen and examined at the bedside, he is non-verbal but awake For AV fistula formation on Sunday Current Medications Generic Name Dose Route Start Last Admin Trade Name Freq PRN Reason Stop Dose Admin Acetaminophen 1,000 mg 09/24/17 19:19 Ofirmev Injection - IVPB Q6H PRN PAIN LEVEL 1-5 Acetaminophen 650 mg 10/01/17 20:52 10/01/17 21:09 Tylenol - PO 650 mg Q6H PRN Administration FEVER Amino Acids 30 ml 09/25/17 10:00 10/06/17 09:13 Prosource No Carb Liquid Pkt NGT [address] Administration Collagenase 1 applic 10/02/17 16:00 10/06/17 10:41 Santyl - TP [address] Administration Diphenhydramine HCl 25 mg 09/24/17 19:19 10/03/17 07:33 Benadryl - PO 25 mg Q6H PRN Administration FOR ITCHING Docusate Sodium 100 mg 09/24/17 19:19 Colace Liquid - NGT Q8H PRN CONSTIPATION Ferrous Sulfate 325 mg 10/05/17 16:15 10/06/17 08:34 Feosol - PO 325 mg DAILY@[address] Administration Heparin Sodium (Porcine) 5,000 unit 10/04/17 22:00 10/06/17 13:08 Heparin - SQ 5,[address] Administration Hydralazine HCl 10 mg 09/24/17 19:19 09/27/17 19:05 Apresoline Injection - IVPUSH 10 mg Q4H PRN Administration HYPERTENSION Hydralazine HCl 50 mg 10/06/17 08:47 10/06/17 13:08 Apresoline - PO [address] Administration Levofloxacin 250 mg in 50 mls @ 50 mls/hr 10/03/17 16:00 10/05/17 12:04 Levaquin 250 Mg Premixed Ivpb - IVPB 50 mls/hr Q2D@[address] Administration Protocol Isosorbide Mononitrate 30 mg 09/24/17 22:00 10/06/17 09:14 Imdur - PO [address] Administration Labetalol HCl 200 mg 09/24/17 19:19 Normodyne - PO Q2H PRN HYPERTENSION Labetalol HCl 600 mg 10/06/17 08:48 10/06/17 13:08 Normodyne - PO [address] Administration Lacosamide 150 mg 09/24/17 11:57 10/06/17 09:14 Vimpat - PO [address] Administration Lacosamide 75 mg 09/26/17 15:00 10/05/17 15:12 Vimpat - PO [address] Administration Multivit/Ca Carb/B Cmplx/FA/Prenat 1 tablet 09/25/17 10:00 10/06/17 09:15 Nephro-Claudia - PO [address] Administration Nifedipine 90 mg 09/24/17 22:00 10/06/17 09:14 Procardia Xl - PO [address] Administration Nystatin 1 applic 09/25/17 00:00 10/06/17 13:08 Mycostatin Cream - TP Not Given Q6HPO LANE Ondansetron HCl 4 mg 09/27/17 14:32 Zofran Injection IVPUSH Q6H PRN NAUSEA AND/OR VOMITING Sevelamer Carbonate 1,600 mg 09/25/17 08:00 10/06/17 12:07 Renvela - PO 1,[address] Administration Objective: Vital Signs Period Temp Pulse Resp BP Sys/Mora Pulse Ox Last 24 Hr 98.3 F-99.5 F 90-103 18-20 144-164/61-100 95-96 Physical Exam: General: NAD Lungs: CTA bilaterally Heart: RRR, S1S2 Abd: Soft, non-tender, non-distended. normoactive bowel sounds Ext: No edema Skin: Right CW permacath CBCD WBC 7.0 K/mm3 (4.0-10.0) 10/06/17 07:00 RBC 3.29 M/mm3 (4.00-5.60) L 10/06/17 07:00 Hgb 9.7 GM/dL (11.7-16.9) L D 10/06/17 07:00 Hct 28.9 % (35.4-49) L 10/06/17 07:00 MCV 88.0 fl (80-96) 10/06/17 07:00 MCHC 33.7 g/dl (32.0-35.9) 10/06/17 07:00 RDW 14.0 % (11.9-15.9) 10/06/17 07:00 Plt Count 283 K/MM3 (134-434) 10/06/17 07:00 MPV 7.2 fl (7.5-11.1) L 10/06/17 07:00 CMP Sodium 140 mmol/L (136-145) 10/06/17 07:00 Potassium 4.1 mmol/L (3.5-5.1) 10/06/17 07:00 Chloride 99 mmol/L (98-107) 10/06/17 07:00 Carbon Dioxide 31 mmol/L (21-32) 10/06/17 07:00 Anion Gap 10 (8-16) 10/06/17 07:00 BUN 27 mg/dL (7-18) H D 10/06/17 07:00 Creatinine 6.3 mg/dL (0.7-1.3) H D 10/06/17 07:00 Creat Clearance w eGFR 11.07 (>60) 10/06/17 07:00 Random Glucose 84 mg/dL (74-106) 10/06/17 07:00 Calcium 9.2 mg/dL (8.5-10.1) 10/06/17 07:00 Total Bilirubin 0.3 mg/dL (0.2-1.0) D 10/06/17 07:00 AST 18 U/L (15-37) 10/06/17 07:00 ALT 20 U/L (12-78) 10/06/17 07:00 Alkaline Phosphatase 116 U/L (45-117) 10/06/17 07:00 Total Protein 7.4 g/dl (6.4-8.2) 10/06/17 07:00 Albumin 3.1 g/dl (3.4-5.0) L 10/06/17 07:00 CARDIAC ENZYMES Creatine Kinase 77 IU/L (39-308) 09/22/17 06:35 Troponin I 0.25 ng/ml (0.00-0.05) H 08/31/17 05:40 Microbiology 09/30/17 10:40 Blood - Peripheral Venous Blood Culture - Final NO GROWTH AFTER 5 DAYS INCUBATION 09/30/17 10:25 Blood - Peripheral Venous Blood Culture - Final NO GROWTH AFTER 5 DAYS INCUBATION Assessment: This is a 22 year old male with PMHx of HTN, autism, epilepsy, who presented to the ED with diarrhea and increased dyspnea and was found to have hypertensive emergency, ANNA, pneumonia with a complicated hospital course including acute respiratory failure requiring intubation and a persistent left pleural effusion requiring vats and pneumolysis on 09/17 now with chest tubes x2 Plan: 1) Acute hypoxic respiratory failure, large left pleural effusion - Resolved - S/p bronchoscopy/left VATS/drainage of effusion/pneumolysis 09/17 - Appreciate surgery consult - Appreciate pulmonary consult 2) Severe sepsis 2/ pneumonia - Resolved - Appreciate ID consult 3) ANNA, ESRD M,W,F - L AVF scheduled for Sunday - Appreciate nephrology consult 4) Hypertensive emergency - Continue Hydralazine - Continue Imdur - Continue Labetolol - Continue Procardia Xl 5) Epilepsy - On day of HD will receive additional 75mg of Vimpat after HD - Continue Vimpat 150mg po bid 6) F/E/N: - Renal diet, sodium controlled - Monitor electrolytes 7) Prophylaxis: - Heparin 5,000u sq bid - PT 8) Dispo: - Requires continued inpatient care CODE STATUS: FULL CODE Visit type - Emergency Visit Emergency Visit: Yes ED Registration Date: 08/29/17 Care time: The patient presented to the Emergency Department on the above date and was hospitalized for further evaluation of their emergent condition. - New Patient This patient is new to me today: No - Critical Care Critical Care patient: No
[2017-10-07] MEDS: NYSTATIN 100,000 UNIT/GM TOPICAL CREAM 15 GM TUBE TP SCH ×5 (03:58→23:05)
[2017-10-07] MEDS: LABETALOL HCL 200 MG TABLET (FP) PO SCH ×3 (05:36→22:02)
[2017-10-07] MEDS: hydrALAZINE HCL 50 MG TABLET (FP) PO SCH ×3 (05:36→22:02)
[2017-10-07] MEDS: HEPARIN NA (PORCINE) 5,000 UNITS/ML 1ML VIAL SQ SCH ×3 (05:36→22:08)
[2017-10-07] MEDS: FERROUS SO4 325 MG TABLET (FP) PO SCH (08:47)
[2017-10-07] MEDS: SEVELAMER CARBONATE 800 MG TAB (FP) PO SCH ×3 (08:47→18:31)
--- NOTE | 2017-10-07 09:21 | PN ---
Progress Note, Physician Chief Complaint: htn emergency History of Present Illness: non-verbal. shakes my hand. mom says no issues - Current Medication List Current Medications: Active Medications Acetaminophen (Ofirmev Injection -) 1,000 mg IVPB Q6H PRN PRN Reason: PAIN LEVEL 1-5 Acetaminophen (Tylenol -) 650 mg PO Q6H PRN PRN Reason: FEVER Last Admin: 10/01/17 21:09 Dose: 650 mg Amino Acids (Prosource No Carb Liquid Pkt) 30 ml NGT DAILY [facility] Last Admin: 10/06/17 09:13 Dose: 30 ml Collagenase (Santyl -) 1 applic TP DAILY [facility] Last Admin: 10/06/17 10:41 Dose: 1 applic Diphenhydramine HCl (Benadryl -) 25 mg PO Q6H PRN PRN Reason: FOR ITCHING Last Admin: 10/03/17 07:33 Dose: 25 mg Docusate Sodium (Colace Liquid -) 100 mg NGT Q8H PRN PRN Reason: CONSTIPATION Ferrous Sulfate (Feosol -) 325 mg PO DAILY@0800 [facility] Last Admin: 10/07/17 08:47 Dose: 325 mg Heparin Sodium (Porcine) (Heparin -) 5,000 unit SQ TID [facility] Last Admin: 10/07/17 05:36 Dose: 5,000 unit Hydralazine HCl (Apresoline Injection -) 10 mg IVPUSH Q4H PRN PRN Reason: HYPERTENSION Last Admin: 09/27/17 19:05 Dose: 10 mg Hydralazine HCl (Apresoline -) 50 mg PO TID [facility] Last Admin: 10/07/17 05:36 Dose: 50 mg Levofloxacin (Levaquin 250 Mg Premixed Ivpb -) 250 mg in 50 mls @ 50 mls/hr IVPB Q2D@[address] PRN Reason: Protocol Last Admin: 10/05/17 12:04 Dose: 50 mls/hr Isosorbide Mononitrate (Imdur -) 30 mg PO BID [facility] Last Admin: 10/06/17 21:08 Dose: 30 mg Labetalol HCl (Normodyne -) 200 mg PO Q2H PRN PRN Reason: HYPERTENSION Labetalol HCl (Normodyne -) 600 mg PO TID [facility] Last Admin: 10/07/17 05:36 Dose: 600 mg Lacosamide (Vimpat -) 150 mg PO BID [facility] Last Admin: 10/06/17 21:08 Dose: 150 mg Lacosamide (Vimpat -) 75 mg PO MOWEFR [facility] Last Admin: 10/05/17 15:12 Dose: 75 mg Multivit/Ca Carb/B Cmplx/FA/Prenat (Nephro-Claudia -) 1 tablet PO DAILY [facility] Last Admin: 10/06/17 09:15 Dose: 1 tablet Nifedipine (Procardia Xl -) 90 mg PO BID [facility] Last Admin: 10/06/17 21:07 Dose: 90 mg Nystatin (Mycostatin Cream -) 1 applic TP Q6HPO [facility] Last Admin: 10/07/17 05:36 Dose: Not Given Ondansetron HCl (Zofran Injection) 4 mg IVPUSH Q6H PRN PRN Reason: NAUSEA AND/OR VOMITING Sevelamer Carbonate (Renvela -) 1,600 mg PO TIDCM [facility] Last Admin: 10/07/17 08:47 Dose: 1,600 mg - Objective Vital Signs: Vital Signs Temperature 98.1 F 10/07/17 06:00 Pulse Rate 92 H 10/07/17 06:00 Respiratory Rate 20 10/07/17 06:00 Blood Pressure 147/87 10/07/17 06:00 O2 Sat by Pulse Oximetry (%) 95 10/06/17 22:00 Constitutional: Yes: Well Nourished, No Distress, Calm Cardiovascular: Yes: Regular Rate and Rhythm, S1, S2. No: Gallop, Murmur Respiratory: Yes: Regular, CTA Bilaterally (not deep breaths for exam). No: Accessory Muscle Use, Rales, Wheezes Extremities: No: Cold Edema: No Neurological: Yes: Alert. No: Seizure Psychiatric: No: Agitated Labs: CBC, BMP 10/06/17 07:00 10/06/17 07:00 INR, PTT INR 0.93 (0.82-1.09) 09/26/17 05:40 Fibrinogen 558.0 mg/dL (238-498) H 09/17/17 06:45 Assessment/Plan echo 08/2017: nl lv/rv, no sig valve path a/p: 22 m hx autism, seizures, possible underlying ckd/htn here with ams, respiratory failure/sepsis, anna requiring HD and hypertensive urgency. Cardiac course complicated by mild troponin elevation and prolonged qtc. HTN emergency: -initially with difficult to control BP -BP much improved on current regimen, ranging 140s-160s for the most part -10/06 decr'd hydral to 50 TID, incr labetalol to 600 TID (to minimize risk of rare but severe hydralazine toxicities). -bp stable. same meds -cont high dose nifedipine for now as doing, monitor for severe constipation -deferring RAAS-blockers for now given ANNA with renal w/u ongoing ANNA-->ESRD -per renal, biopsy c/w end-stage hypertensive renal dz -on HD abnormal troponins - flat trend, with intermediate range values - secondary to sepsis myocardial injury, vs demand ischemia (severe HTN, with tachycardia to 120s-130s). no clinical findings to support acs here. anemia: -chronic, ? sec to CDK -mgm't per primary team hypoxic respiratory failure s/p intubation, PNA with loculated parapneumonic effusion -s/p VATS/pleurodesis, chest tubes now out
[2017-10-07] MEDS ORDERED: PT OWN MED DRAWER 7, Y5N ONE (09:32)
[2017-10-07] MEDS: NIFEdipine E.R. 90 MG TABLET (FP) PO SCH ×2 (09:41→22:02)
[2017-10-07] MEDS: LACOSAMIDE 50 MG TABLET PO SCH ×2 (09:41→22:02)
[2017-10-07] MEDS: ISOSORBIDE MONONITRATE 30 MG TAB.SR.24H (FP) PO SCH ×2 (09:41→22:02)
[2017-10-07] MEDS: AMINO ACIDS/PROTEIN HYDROLYS 30 ML LIQUID.PKT NGT SCH (09:42)
[2017-10-07] MEDS: VITAMIN B COMP W-C 1 EA TABLET PO SCH (09:42)
[2017-10-07] MEDS: COLLAGENASE CLOSTRIDIUM HIST. 30 GRAMS TUBE TP SCH (10:27)
--- NOTE | 2017-10-07 12:46 | PN ---
Progress Note (short form) - Note Progress Note: Resting in NAD. Remains afebrile. No documented acute events overnight. Intake & Output 10/04/17 10/05/17 10/06/17 10/07/17 23:59 23:59 23:59 23:59 Intake Total 220 200 920 360 Balance 220 200 920 360 Weight 171 lb 12.8 oz 173 lb 12.8 oz 172 lb 12.8 oz 170 lb Last Vital Signs Temp Pulse Resp BP Pulse Ox 98.1 F 92 H 20 147/87 95 10/07/17 06:00 10/07/17 06:00 10/07/17 06:00 10/07/17 06:00 10/06/17 22:00 Active Medications Acetaminophen (Ofirmev Injection -) 1,000 mg IVPB Q6H PRN PRN Reason: PAIN LEVEL 1-5 Acetaminophen (Tylenol -) 650 mg PO Q6H PRN PRN Reason: FEVER Last Admin: 10/01/17 21:09 Dose: 650 mg Amino Acids (Prosource No Carb Liquid Pkt) 30 ml NGT DAILY [facility] Last Admin: 10/07/17 09:42 Dose: 30 ml Collagenase (Santyl -) 1 applic TP DAILY [facility] Last Admin: 10/07/17 10:27 Dose: 1 applic Diphenhydramine HCl (Benadryl -) 25 mg PO Q6H PRN PRN Reason: FOR ITCHING Last Admin: 10/03/17 07:33 Dose: 25 mg Docusate Sodium (Colace Liquid -) 100 mg NGT Q8H PRN PRN Reason: CONSTIPATION Ferrous Sulfate (Feosol -) 325 mg PO DAILY@0800 [facility] Last Admin: 10/07/17 08:47 Dose: 325 mg Heparin Sodium (Porcine) (Heparin -) 5,000 unit SQ TID [facility] Last Admin: 10/07/17 05:36 Dose: 5,000 unit Hydralazine HCl (Apresoline Injection -) 10 mg IVPUSH Q4H PRN PRN Reason: HYPERTENSION Last Admin: 09/27/17 19:05 Dose: 10 mg Hydralazine HCl (Apresoline -) 50 mg PO TID [facility] Last Admin: 10/07/17 05:36 Dose: 50 mg Levofloxacin (Levaquin 250 Mg Premixed Ivpb -) 250 mg in 50 mls @ 50 mls/hr IVPB Q2D@[address] PRN Reason: Protocol Last Admin: 10/07/17 10:17 Dose: 50 mls/hr Isosorbide Mononitrate (Imdur -) 30 mg PO BID [facility] Last Admin: 10/07/17 09:41 Dose: 30 mg Labetalol HCl (Normodyne -) 200 mg PO Q2H PRN PRN Reason: HYPERTENSION Labetalol HCl (Normodyne -) 600 mg PO TID [facility] Last Admin: 10/07/17 05:36 Dose: 600 mg Lacosamide (Vimpat -) 150 mg PO BID [facility] Last Admin: 10/07/17 09:41 Dose: 150 mg Lacosamide (Vimpat -) 75 mg PO MOWEFR [facility] Last Admin: 10/05/17 15:12 Dose: 75 mg Multivit/Ca Carb/B Cmplx/FA/Prenat (Nephro-Claudia -) 1 tablet PO DAILY [facility] Last Admin: 10/07/17 09:42 Dose: 1 tablet Nifedipine (Procardia Xl -) 90 mg PO BID [facility] Last Admin: 10/07/17 09:41 Dose: 90 mg Nystatin (Mycostatin Cream -) 1 applic TP Q6HPO [facility] Last Admin: 10/07/17 05:36 Dose: Not Given Ondansetron HCl (Zofran Injection) 4 mg IVPUSH Q6H PRN PRN Reason: NAUSEA AND/OR VOMITING Sevelamer Carbonate (Renvela -) 1,600 mg PO TIDCM [facility] Last Admin: 10/07/17 08:47 Dose: 1,600 mg GENERAL: NAD HEENT: (-) Pallor LUNGS: Clear HEART: S1S2, regular rhythm, no murmurs ABDOMEN: soft, NT, ND EXTREMITIES: 2+ pulses, warm, well-perfused NEUROLOGICAL: non-focal ASSESSMENT AND PLAN: Hypertensive Urgency Acute Kidney Injury requiring HD Acute Hypoxic Respiratory Failure Pneumonia Loculated Pleural Effusion Hyponatremia Severe Sepsis Lactic Acidosis Thrombocytopenia improved Anemia Autism - ABX per ID - Supplemental O2 as needed - Titrate BP as indicated - PO as tolerated - DVT/GI prophylaxis Dr Isidro
--- NOTE | 2017-10-07 13:38 | PN ---
Progress Note, Physician History of Present Illness: Pt seen and examined at bedside. He is calm and appears comfortable. - Current Medication List Current Medications: Active Medications Acetaminophen (Ofirmev Injection -) 1,000 mg IVPB Q6H PRN PRN Reason: PAIN LEVEL 1-5 Acetaminophen (Tylenol -) 650 mg PO Q6H PRN PRN Reason: FEVER Last Admin: 10/01/17 21:09 Dose: 650 mg Amino Acids (Prosource No Carb Liquid Pkt) 30 ml NGT DAILY [facility] Last Admin: 10/07/17 09:42 Dose: 30 ml Collagenase (Santyl -) 1 applic TP DAILY [facility] Last Admin: 10/07/17 10:27 Dose: 1 applic Diphenhydramine HCl (Benadryl -) 25 mg PO Q6H PRN PRN Reason: FOR ITCHING Last Admin: 10/03/17 07:33 Dose: 25 mg Docusate Sodium (Colace Liquid -) 100 mg NGT Q8H PRN PRN Reason: CONSTIPATION Ferrous Sulfate (Feosol -) 325 mg PO DAILY@0800 [facility] Last Admin: 10/07/17 08:47 Dose: 325 mg Heparin Sodium (Porcine) (Heparin -) 5,000 unit SQ TID [facility] Last Admin: 10/07/17 05:36 Dose: 5,000 unit Hydralazine HCl (Apresoline Injection -) 10 mg IVPUSH Q4H PRN PRN Reason: HYPERTENSION Last Admin: 09/27/17 19:05 Dose: 10 mg Hydralazine HCl (Apresoline -) 50 mg PO TID [facility] Last Admin: 10/07/17 05:36 Dose: 50 mg Levofloxacin (Levaquin 250 Mg Premixed Ivpb -) 250 mg in 50 mls @ 50 mls/hr IVPB Q2D@[address] PRN Reason: Protocol Last Admin: 10/07/17 10:17 Dose: 50 mls/hr Isosorbide Mononitrate (Imdur -) 30 mg PO BID [facility] Last Admin: 10/07/17 09:41 Dose: 30 mg Labetalol HCl (Normodyne -) 200 mg PO Q2H PRN PRN Reason: HYPERTENSION Labetalol HCl (Normodyne -) 600 mg PO TID [facility] Last Admin: 10/07/17 05:36 Dose: 600 mg Lacosamide (Vimpat -) 150 mg PO BID [facility] Last Admin: 10/07/17 09:41 Dose: 150 mg Lacosamide (Vimpat -) 75 mg PO MOWEFR [facility] Last Admin: 10/05/17 15:12 Dose: 75 mg Multivit/Ca Carb/B Cmplx/FA/Prenat (Nephro-Claudia -) 1 tablet PO DAILY [facility] Last Admin: 10/07/17 09:42 Dose: 1 tablet Nifedipine (Procardia Xl -) 90 mg PO BID [facility] Last Admin: 10/07/17 09:41 Dose: 90 mg Nystatin (Mycostatin Cream -) 1 applic TP Q6HPO [facility] Last Admin: 10/07/17 12:46 Dose: Not Given Ondansetron HCl (Zofran Injection) 4 mg IVPUSH Q6H PRN PRN Reason: NAUSEA AND/OR VOMITING Sevelamer Carbonate (Renvela -) 1,600 mg PO TIDCM [facility] Last Admin: 10/07/17 12:46 Dose: 1,600 mg - Objective Vital Signs: Vital Signs Temperature 98.1 F 10/07/17 06:00 Pulse Rate 92 H 10/07/17 06:00 Respiratory Rate 20 10/07/17 06:00 Blood Pressure 147/87 10/07/17 06:00 O2 Sat by Pulse Oximetry (%) 95 10/06/17 22:00 Constitutional: Yes: Calm Eyes: Yes: Conjunctiva Clear HENT: Yes: Atraumatic Neck: Yes: Supple Cardiovascular: Yes: S1, S2 Respiratory: Yes: CTA Bilaterally Gastrointestinal: Yes: Normal Bowel Sounds Genitourinary: Yes: WNL Musculoskeletal: Yes: WNL Edema: No Neurological: Yes: Pre-Existing Deficit Labs: CBC, BMP 10/06/17 07:00 10/06/17 07:00 INR, PTT INR 0.93 (0.82-1.09) 09/26/17 05:40 Fibrinogen 558.0 mg/dL (238-498) H 09/17/17 06:45 Problem List - Problems (1) Acute renal failure Code(s): N17.9 - ACUTE KIDNEY FAILURE, UNSPECIFIED Qualifiers: Acute renal failure type: unspecified Qualified Code(s): N17.9 - Acute kidney failure, unspecified (2) Anemia Code(s): D64.9 - ANEMIA, UNSPECIFIED (3) Hyperkalemia Code(s): E87.5 - HYPERKALEMIA (4) Hypertensive urgency Code(s): I16.0 - HYPERTENSIVE URGENCY (5) Sepsis Code(s): A41.9 - SEPSIS, UNSPECIFIED ORGANISM Qualifiers: Sepsis type: sepsis due to unspecified organism Qualified Code(s): A41.9 - Sepsis, unspecified organism (6) Thrombocytopenia Code(s): D69.6 - THROMBOCYTOPENIA, UNSPECIFIED (7) Seizure Code(s): R56.9 - UNSPECIFIED CONVULSIONS Assessment/Plan Current Medications Generic Name Dose Route Start Last Admin Trade Name Freq PRN Reason Stop Dose Admin Acetaminophen 1,000 mg 09/24/17 19:19 Ofirmev Injection - IVPB Q6H PRN PAIN LEVEL 1-5 Acetaminophen 650 mg 10/01/17 20:52 10/01/17 21:09 Tylenol - PO 650 mg Q6H PRN Administration FEVER Amino Acids 30 ml 09/25/17 10:00 10/07/17 09:42 Prosource No Carb Liquid Pkt NGT [address] Administration Collagenase 1 applic 10/02/17 16:00 10/07/17 10:27 Santyl - TP [address] Administration Diphenhydramine HCl 25 mg 09/24/17 19:19 10/03/17 07:33 Benadryl - PO 25 mg Q6H PRN Administration FOR ITCHING Docusate Sodium 100 mg 09/24/17 19:19 Colace Liquid - NGT Q8H PRN CONSTIPATION Ferrous Sulfate 325 mg 10/05/17 16:15 10/07/17 08:47 Feosol - PO 325 mg DAILY@08[address] Administration Heparin Sodium (Porcine) 5,000 unit 10/04/17 22:00 10/07/17 05:36 Heparin - SQ 5,[address] Administration Hydralazine HCl 10 mg 09/24/17 19:19 09/27/17 19:05 Apresoline Injection - IVPUSH 10 mg Q4H PRN Administration HYPERTENSION Hydralazine HCl 50 mg 10/06/17 08:47 10/07/17 05:36 Apresoline - PO [address] Administration Levofloxacin 250 mg in 50 mls @ 50 mls/hr 10/03/17 16:00 10/07/17 10:17 Levaquin 250 Mg Premixed Ivpb - IVPB 50 mls/hr Q2D@[address] Administration Protocol Isosorbide Mononitrate 30 mg 09/24/17 22:00 10/07/17 09:41 Imdur - PO [address] Administration Labetalol HCl 200 mg 09/24/17 19:19 Normodyne - PO Q2H PRN HYPERTENSION Labetalol HCl 600 mg 10/06/17 08:48 10/07/17 05:36 Normodyne - PO [address] Administration Lacosamide 150 mg 09/24/17 11:57 10/07/17 09:41 Vimpat - PO [address] Administration Lacosamide 75 mg 09/26/17 15:00 10/05/17 15:12 Vimpat - PO [address] Administration Multivit/Ca Carb/B Cmplx/FA/Prenat 1 tablet 09/25/17 10:00 10/07/17 09:42 Nephro-Claudia - PO [address] Administration Nifedipine 90 mg 09/24/17 22:00 10/07/17 09:41 Procardia Xl - PO [address] Administration Nystatin 1 applic 09/25/17 00:00 10/07/17 12:46 Mycostatin Cream - TP Not Given Q6HPO LANE Ondansetron HCl 4 mg 09/27/17 14:32 Zofran Injection IVPUSH Q6H PRN NAUSEA AND/OR VOMITING Sevelamer Carbonate 1,600 mg 09/25/17 08:00 10/07/17 12:46 Renvela - PO 1,[address] Administration Impression 1. ANNA 2. HTN urgency/emergency 3. hyperkalemia 4. hyponatremia 5. autism 6. hx of seizure 7. anemia 8. CKD 9. lactic acidosis improving 10. thrombocytopenia 11. hyperkalemia 12. pleural effusion 13. acute resp failure requiring intubation 14. ESRD Plan - HD in am - pt going for fistula tomorrow - HD at [facility] for anemia - discussed plan with pts mother Dr Velasquez
--- NOTE | 2017-10-07 13:42 | PN ---
Progress Note (short form) - Note Progress Note: Subjective: The patient was seen and examined at the bedside, he is non-verbal but awake For AV fistula formation on Sunday Current Medications Generic Name Dose Route Start Last Admin Trade Name Freq PRN Reason Stop Dose Admin Acetaminophen 1,000 mg 09/24/17 19:19 Ofirmev Injection - IVPB Q6H PRN PAIN LEVEL 1-5 Acetaminophen 650 mg 10/01/17 20:52 10/01/17 21:09 Tylenol - PO 650 mg Q6H PRN Administration FEVER Amino Acids 30 ml 09/25/17 10:00 10/07/17 09:42 Prosource No Carb Liquid Pkt NGT [address] Administration Collagenase 1 applic 10/02/17 16:00 10/07/17 10:27 Santyl - TP [address] Administration Diphenhydramine HCl 25 mg 09/24/17 19:19 10/03/17 07:33 Benadryl - PO 25 mg Q6H PRN Administration FOR ITCHING Docusate Sodium 100 mg 09/24/17 19:19 Colace Liquid - NGT Q8H PRN CONSTIPATION Epoetin Mir 7,000 unit 10/08/17 13:38 Epogen - IVPUSH 10/08/17 13:39 ONCE ONE Ferrous Sulfate 325 mg 10/05/17 16:15 10/07/17 08:47 Feosol - PO 325 mg DAILY@08[address] Administration Heparin Sodium (Porcine) 5,000 unit 10/04/17 22:00 10/07/17 05:36 Heparin - SQ 5,[address] Administration Hydralazine HCl 10 mg 09/24/17 19:19 09/27/17 19:05 Apresoline Injection - IVPUSH 10 mg Q4H PRN Administration HYPERTENSION Hydralazine HCl 50 mg 10/06/17 08:47 10/07/17 05:36 Apresoline - PO [address] Administration Levofloxacin 250 mg in 50 mls @ 50 mls/hr 10/03/17 16:00 10/07/17 10:17 Levaquin 250 Mg Premixed Ivpb - IVPB 50 mls/hr Q2D@[address] Administration Protocol Sodium Chloride 250 mls @ 3,000 mls/hr 10/07/17 13:38 Normal Saline - IV 10/08/17 13:38 PRN PRN Hypotension during Dialysis Isosorbide Mononitrate 30 mg 09/24/17 22:00 10/07/17 09:41 Imdur - PO [address] Administration Labetalol HCl 200 mg 09/24/17 19:19 Normodyne - PO Q2H PRN HYPERTENSION Labetalol HCl 600 mg 10/06/17 08:48 10/07/17 05:36 Normodyne - PO [address] Administration Lacosamide 150 mg 09/24/17 11:57 10/07/17 09:41 Vimpat - PO [address] Administration Lacosamide 75 mg 09/26/17 15:00 10/05/17 15:12 Vimpat - PO [address] Administration Multivit/Ca Carb/B Cmplx/FA/Prenat 1 tablet 09/25/17 10:00 10/07/17 09:42 Nephro-Claudia - PO [address] Administration Nifedipine 90 mg 09/24/17 22:00 10/07/17 09:41 Procardia Xl - PO [address] Administration Nystatin 1 applic 09/25/17 00:00 10/07/17 12:46 Mycostatin Cream - TP Not Given Q6HPO LANE Ondansetron HCl 4 mg 09/27/17 14:32 Zofran Injection IVPUSH Q6H PRN NAUSEA AND/OR VOMITING Sevelamer Carbonate 1,600 mg 09/25/17 08:00 10/07/17 12:46 Renvela - PO 1,[address] Administration Objective: Vital Signs Period Temp Pulse Resp BP Sys/Mora Pulse Ox Last 24 Hr 97.9 F-98.8 F 92-96 16-20 145-162/83-92 95-95 Physical Exam: General: NAD Lungs: CTA bilaterally Heart: RRR, S1S2 Abd: Soft, non-tender, non-distended. normoactive bowel sounds Ext: No edema Skin: Right CW permacath CBCD WBC 7.0 K/mm3 (4.0-10.0) 10/06/17 07:00 RBC 3.29 M/mm3 (4.00-5.60) L 10/06/17 07:00 Hgb 9.7 GM/dL (11.7-16.9) L D 10/06/17 07:00 Hct 28.9 % (35.4-49) L 10/06/17 07:00 MCV 88.0 fl (80-96) 10/06/17 07:00 MCHC 33.7 g/dl (32.0-35.9) 10/06/17 07:00 RDW 14.0 % (11.9-15.9) 10/06/17 07:00 Plt Count 283 K/MM3 (134-434) 10/06/17 07:00 MPV 7.2 fl (7.5-11.1) L 10/06/17 07:00 CMP Sodium 140 mmol/L (136-145) 10/06/17 07:00 Potassium 4.1 mmol/L (3.5-5.1) 10/06/17 07:00 Chloride 99 mmol/L (98-107) 10/06/17 07:00 Carbon Dioxide 31 mmol/L (21-32) 10/06/17 07:00 Anion Gap 10 (8-16) 10/06/17 07:00 BUN 27 mg/dL (7-18) H D 10/06/17 07:00 Creatinine 6.3 mg/dL (0.7-1.3) H D 10/06/17 07:00 Creat Clearance w eGFR 11.07 (>60) 10/06/17 07:00 Random Glucose 84 mg/dL (74-106) 10/06/17 07:00 Calcium 9.2 mg/dL (8.5-10.1) 10/06/17 07:00 Total Bilirubin 0.3 mg/dL (0.2-1.0) D 10/06/17 07:00 AST 18 U/L (15-37) 10/06/17 07:00 ALT 20 U/L (12-78) 10/06/17 07:00 Alkaline Phosphatase 116 U/L (45-117) 10/06/17 07:00 Total Protein 7.4 g/dl (6.4-8.2) 10/06/17 07:00 Albumin 3.1 g/dl (3.4-5.0) L 10/06/17 07:00 CARDIAC ENZYMES Creatine Kinase 77 IU/L (39-308) 09/22/17 06:35 Troponin I 0.25 ng/ml (0.00-0.05) H 08/31/17 05:40 Microbiology 09/30/17 10:40 Blood - Peripheral Venous Blood Culture - Final NO GROWTH AFTER 5 DAYS INCUBATION 09/30/17 10:25 Blood - Peripheral Venous Blood Culture - Final NO GROWTH AFTER 5 DAYS INCUBATION Assessment: This is a 22 year old male with PMHx of HTN, autism, epilepsy, who presented to the ED with diarrhea and increased dyspnea and was found to have hypertensive emergency, ANNA, pneumonia with a complicated hospital course including acute respiratory failure requiring intubation and a persistent left pleural effusion requiring vats and pneumolysis on 09/17 now with chest tubes x2 Plan: 1) Acute hypoxic respiratory failure, large left pleural effusion - Resolved - S/p bronchoscopy/left VATS/drainage of effusion/pneumolysis 09/17 - Appreciate surgery consult - Appreciate pulmonary consult 2) Severe sepsis 2/ pneumonia - Resolved - Appreciate ID consult 3) ANNA, ESRD M,W,F - L AVF scheduled for Sunday - Appreciate nephrology consult 4) Hypertensive emergency - Continue Hydralazine - Continue Imdur - Continue Labetolol - Continue Procardia Xl 5) Epilepsy - On day of HD will receive additional 75mg of Vimpat after HD - Continue Vimpat 150mg po bid 6) F/E/N: - Renal diet, sodium controlled - Monitor electrolytes 7) Prophylaxis: - Heparin 5,000u sq bid - PT 8) Dispo: - Requires continued inpatient care CODE STATUS: FULL CODE Visit type - Emergency Visit Emergency Visit: Yes ED Registration Date: 08/29/17 Care time: The patient presented to the Emergency Department on the above date and was hospitalized for further evaluation of their emergent condition. - New Patient This patient is new to me today: No - Critical Care Critical Care patient: No
--- NOTE | 2017-10-08 02:28 | HOSP ---
Subjective - Review of Symptoms Events since last encounter: Hospitalist Encounter Notified by RN, that the patient removed his Permacath. Subjective: Arrived to bedside, patient is alert and awake-baseline, parent at bedside. Patient appears calm, in no acute Pressure dressing noted to RCW, no active bleed PE performed see notes Physical Examination Vital Signs: Vital Signs Temperature 98.7 F 10/07/17 18:25 Pulse Rate 92 H 10/07/17 18:25 Respiratory Rate 18 10/07/17 18:25 Blood Pressure 148/82 10/07/17 18:25 O2 Sat by Pulse Oximetry (%) 94 L 10/07/17 10:00 Constitutional: Yes: No Distress, Calm Eyes: Yes: Conjunctiva Clear, PERRL HENT: Yes: WNL, Atraumatic, Normocephalic Neck: Yes: WNL, Supple, Trachea Midline Cardiovascular: Yes: Regular Rate and Rhythm, S1, S2 Respiratory: Yes: WNL, Regular, CTA Bilaterally Gastrointestinal: Yes: WNL, Normal Bowel Sounds, Soft ...Rectal Exam: Yes: Deferred Labs: CBC, BMP 10/06/17 07:00 10/06/17 07:00
[2017-10-08] MEDS: NYSTATIN 100,000 UNIT/GM TOPICAL CREAM 15 GM TUBE TP SCH ×4 (05:02→23:45)
[2017-10-08] MEDS: HEPARIN NA (PORCINE) 5,000 UNITS/ML 1ML VIAL SQ SCH ×3 (05:03→22:47)
[2017-10-08] MEDS: hydrALAZINE HCL 50 MG TABLET (FP) PO SCH ×3 (05:31→22:47)
[2017-10-08] MEDS: LABETALOL HCL 200 MG TABLET (FP) PO SCH ×3 (05:31→22:47)
--- NOTE | 2017-10-08 07:39 | PN ---
Physical Exam: SUBJECTIVE: Patient seen and examined. Appears quite comfortable. Pulling sheet over head, hiding. Overnight pulled out permacath To go for AV fistula today and replacement of permacath OBJECTIVE: Vital Signs Period Temp Pulse Resp BP Sys/Mora Pulse Ox Last 24 Hr 98.1 F-98.7 F 90-98 18-20 148-168/71-93 94-94 GENERAL/NEURO: The patient is sleeping but easily arousable. LUNGS: Breath sounds equal, clear to auscultation bilaterally, no wheezes, no crackles, no accessory muscle use. HEART: Regular rate and rhythm, S1, S2 without murmur, rub or gallop. ABDOMEN: Soft, nontender, nondistended, normoactive bowel sounds EXTREMITIES: 2+ pulses, warm, well-perfused, no edema Active Medications Generic Name Dose Route Start Last Admin Trade Name Freq PRN Reason Stop Dose Admin Acetaminophen 1,000 mg 09/24/17 19:19 Ofirmev Injection - IVPB Q6H PRN PAIN LEVEL 1-5 Acetaminophen 650 mg 10/01/17 20:52 10/01/17 21:09 Tylenol - PO 650 mg Q6H PRN Administration FEVER Amino Acids 30 ml 09/25/17 10:00 10/07/17 09:42 Prosource No Carb Liquid Pkt NGT [address] Administration Collagenase 1 applic 10/02/17 16:00 10/07/17 10:27 Santyl - TP [address] Administration Diphenhydramine HCl 25 mg 09/24/17 19:19 10/03/17 07:33 Benadryl - PO 25 mg Q6H PRN Administration FOR ITCHING Docusate Sodium 100 mg 09/24/17 19:19 Colace Liquid - NGT Q8H PRN CONSTIPATION Epoetin Mir 7,000 unit 10/08/17 13:38 Epogen - IVPUSH 10/08/17 13:39 ONCE ONE Ferrous Sulfate 325 mg 10/05/17 16:15 10/07/17 08:47 Feosol - PO 325 mg DAILY@08[address] Administration Heparin Sodium (Porcine) 5,000 unit 10/04/17 22:00 10/08/17 05:03 Heparin - SQ Not Given TID LANE Hydralazine HCl 10 mg 09/24/17 19:19 09/27/17 19:05 Apresoline Injection - IVPUSH 10 mg Q4H PRN Administration HYPERTENSION Hydralazine HCl 50 mg 10/06/17 08:47 10/08/17 05:31 Apresoline - PO [address] Administration Levofloxacin 250 mg in 50 mls @ 50 mls/hr 10/03/17 16:00 10/07/17 10:17 Levaquin 250 Mg Premixed Ivpb - IVPB 50 mls/hr Q2D@[address] Administration Protocol Sodium Chloride 250 mls @ 3,000 mls/hr 10/07/17 13:38 Normal Saline - IV 10/08/17 13:38 PRN PRN Hypotension during Dialysis Isosorbide Mononitrate 30 mg 09/24/17 22:00 10/07/17 22:02 Imdur - PO [address] Administration Labetalol HCl 200 mg 09/24/17 19:19 Normodyne - PO Q2H PRN HYPERTENSION Labetalol HCl 600 mg 10/06/17 08:48 10/08/17 05:31 Normodyne - PO [address] Administration Lacosamide 150 mg 09/24/17 11:57 10/07/17 22:02 Vimpat - PO [address] Administration Lacosamide 75 mg 09/26/17 15:00 10/05/17 15:12 Vimpat - PO [address] Administration Multivit/Ca Carb/B Cmplx/FA/Prenat 1 tablet 09/25/17 10:00 10/07/17 09:42 Nephro-Claudia - PO [address] Administration Nifedipine 90 mg 09/24/17 22:00 10/07/17 22:02 Procardia Xl - PO [address] Administration Nystatin 1 applic 09/25/17 00:00 10/08/17 05:02 Mycostatin Cream - TP Not Given Q6HPO LANE Ondansetron HCl 4 mg 09/27/17 14:32 Zofran Injection IVPUSH Q6H PRN NAUSEA AND/OR VOMITING Sevelamer Carbonate 1,600 mg 09/25/17 08:00 10/07/17 18:31 Renvela - PO 1,[address] Administration ASSESSMENT/PLAN 22 year-old male with PMH significant for HTN, autism, and epilepsy. Admitted for pneumonia, ANNA, hypertensive emergency. Hospital course complicated by acute respiratory failure, requiring intubation and emergent HD. Hospital course further complicated by persistent left pleural effusion requiring VATS and pneumolysis on 09/17. Left pleural effusion with loculation, resolved --s/p thoracentesis 09/02; --s/p pigtail 09/04; --s/p bronchoscopy/left VATS/drainage of effusion/pneumolysis 09/17 --chest tubes pulled 09/20 and 09/21 Severe sepsis secondary to pneumonia --resolved Leukocytosis --09/28-->10/01 elevated WBC, resolved --cultures were negative --treated with vanco x 2 doses; levaquin x 4 doses ANNA on HD ESRD --renal biopsy done 09/26; per renal note dated 10/01 appears kidney disease likely from HTN and is end-stage --to OR today for replacement permacath and AV fistula --HD later today Severe, refractory hypertension --better controlled --contine labetolol, nifedipine, hydralazine, Imdur Epilepsy --continue Vimpat DVT prophylaxis: subq heparin Dispo: Discussed patient's unwillingness to cooperate with PT with mother. Prior to this admission patient was fully ambulatory. Mother feels he is being stubborn and she does not think there is any intervention that could be undertaken to get him to work with PT. She feels he will be motivated when he gets home. Discussed discharge planning with [facility]. Plan to discharge tomorrow if HD set up outpatient. Continues to require inpatient care. FULL CODE. Visit type - Emergency Visit Emergency Visit: Yes ED Registration Date: 08/29/17 Care time: The patient presented to the Emergency Department on the above date and was hospitalized for further evaluation of their emergent condition. - New Patient This patient is new to me today: No - Critical Care Critical Care patient: No
[2017-10-08] MEDS ORDERED: SODIUM CHLORIDE 250 ML IV PRN (08:00)
[2017-10-08] MEDS ORDERED: EPOETIN ALFA 3,000 UNIT, EPOETIN ALFA 4,000 UNIT IVPUSH ONE ×2 (08:00→16:45)
[2017-10-08] MEDS: SEVELAMER CARBONATE 800 MG TAB (FP) PO SCH ×3 (09:10→18:08)
[2017-10-08] MEDS: FERROUS SO4 325 MG TABLET (FP) PO SCH (09:10)
[2017-10-08] MEDS: AMINO ACIDS/PROTEIN HYDROLYS 30 ML LIQUID.PKT NGT SCH (09:11)
[2017-10-08] MEDS: COLLAGENASE CLOSTRIDIUM HIST. 30 GRAMS TUBE TP SCH (09:15)
[2017-10-08] MEDS: ISOSORBIDE MONONITRATE 30 MG TAB.SR.24H (FP) PO SCH ×2 (09:15→22:47)
[2017-10-08] MEDS: NIFEdipine E.R. 90 MG TABLET (FP) PO SCH ×2 (09:15→22:47)
[2017-10-08] MEDS: LACOSAMIDE 50 MG TABLET PO SCH ×3 (09:15→22:47)
[2017-10-08] MEDS: VITAMIN B COMP W-C 1 EA TABLET PO SCH (09:15)
--- NOTE | 2017-10-08 10:56 | PN ---
Progress Note, Physician Chief Complaint: HTN emergency History of Present Illness: agitated last night, pulled out perma-cath calm today, in wrist restraints--no other findings noted by mother at bedside - Current Medication List Current Medications: Active Medications Acetaminophen (Tylenol -) 650 mg PO Q6H PRN PRN Reason: FEVER Last Admin: 10/01/17 21:09 Dose: 650 mg Amino Acids (Prosource No Carb Liquid Pkt) 30 ml NGT DAILY [facility] Last Admin: 10/08/17 09:11 Dose: Not Given Collagenase (Santyl -) 1 applic TP DAILY [facility] Last Admin: 10/08/17 09:15 Dose: 1 applic Diphenhydramine HCl (Benadryl -) 25 mg PO Q6H PRN PRN Reason: FOR ITCHING Last Admin: 10/03/17 07:33 Dose: 25 mg Docusate Sodium (Colace Liquid -) 100 mg NGT Q8H PRN PRN Reason: CONSTIPATION Ferrous Sulfate (Feosol -) 325 mg PO DAILY@0800 [facility] Last Admin: 10/08/17 09:10 Dose: Not Given Heparin Sodium (Porcine) (Heparin -) 5,000 unit SQ TID [facility] Last Admin: 10/08/17 05:03 Dose: Not Given Hydralazine HCl (Apresoline Injection -) 10 mg IVPUSH Q4H PRN PRN Reason: HYPERTENSION Last Admin: 09/27/17 19:05 Dose: 10 mg Hydralazine HCl (Apresoline -) 50 mg PO TID [facility] Last Admin: 10/08/17 05:31 Dose: 50 mg Levofloxacin (Levaquin 250 Mg Premixed Ivpb -) 250 mg in 50 mls @ 50 mls/hr IVPB Q2D@[address] PRN Reason: Protocol Last Admin: 10/07/17 10:17 Dose: 50 mls/hr Isosorbide Mononitrate (Imdur -) 30 mg PO BID [facility] Last Admin: 10/08/17 09:15 Dose: 30 mg Labetalol HCl (Normodyne -) 200 mg PO Q2H PRN PRN Reason: HYPERTENSION Labetalol HCl (Normodyne -) 600 mg PO TID [facility] Last Admin: 10/08/17 05:31 Dose: 600 mg Lacosamide (Vimpat -) 150 mg PO BID [facility] Last Admin: 10/08/17 09:15 Dose: 150 mg Lacosamide (Vimpat -) 75 mg PO MOWEFR [facility] Last Admin: 10/05/17 15:12 Dose: 75 mg Multivit/Ca Carb/B Cmplx/FA/Prenat (Nephro-Claudia -) 1 tablet PO DAILY [facility] Last Admin: 10/08/17 09:15 Dose: 1 tablet Nifedipine (Procardia Xl -) 90 mg PO BID [facility] Last Admin: 10/08/17 09:15 Dose: 90 mg Nystatin (Mycostatin Cream -) 1 applic TP Q6HPO [facility] Last Admin: 10/08/17 05:02 Dose: Not Given Sevelamer Carbonate (Renvela -) 1,600 mg PO TIDCM [facility] Last Admin: 10/08/17 09:10 Dose: Not Given - Objective Vital Signs: Vital Signs Temperature 98.1 F 10/08/17 09:30 Pulse Rate 91 H 10/08/17 09:30 Respiratory Rate 18 10/08/17 09:30 Blood Pressure 166/84 10/08/17 09:30 O2 Sat by Pulse Oximetry (%) 94 L 10/07/17 21:00 Constitutional: Yes: Well Nourished, No Distress, Calm Cardiovascular: Yes: Regular Rate and Rhythm, S1, S2. No: Gallop, Murmur Respiratory: Yes: Regular, CTA Bilaterally. No: Accessory Muscle Use, Rales, Wheezes Extremities: No: Cold Edema: No Neurological: Yes: Lethargy. No: Seizure Psychiatric: No: Agitated Labs: CBC, BMP 10/06/17 07:00 10/06/17 07:00 INR, PTT INR 0.93 (0.82-1.09) 09/26/17 05:40 Fibrinogen 558.0 mg/dL (238-498) H 09/17/17 06:45 Assessment/Plan echo 08/2017: nl lv/rv, no sig valve path a/p: 22 m hx autism, seizures, possible underlying ckd/htn here with ams, respiratory failure/sepsis, anna requiring HD and hypertensive urgency. Cardiac course complicated by mild troponin elevation and prolonged qtc. HTN emergency: -initially with difficult to control BP -BP much improved on current regimen, ranging 140s-160s for the most part -10/06 decr'd hydral to 50 TID, incr labetalol to 600 TID (to minimize risk of rare but severe hydralazine toxicities). -bp stable. same meds -cont high dose nifedipine for now as doing, monitor for severe constipation -deferring RAAS-blockers for now given ANNA with renal w/u ongoing ANNA-->ESRD -per renal, biopsy c/w end-stage hypertensive renal dz -on HD abnormal troponins - flat trend, with intermediate range values - secondary to sepsis myocardial injury, vs demand ischemia (severe HTN, with tachycardia to 120s-130s). no clinical findings to support acs here. anemia: -chronic, ? sec to CDK -mgm't per primary team hypoxic respiratory failure s/p intubation, PNA with loculated parapneumonic effusion -s/p VATS/pleurodesis, chest tubes now out
[2017-10-08] MEDS ORDERED: PROPOFOL 20 ML ONE ×2 (11:58→13:54)
--- NOTE | 2017-10-08 12:00 | PN ---
Progress Note, Physician History of Present Illness: PULMONARY AWAKE,COMFORTABLE,-RESP DISTRESS,O2 SAT 92% RA,-CONGESTION - Current Medication List Current Medications: Active Medications Acetaminophen (Tylenol -) 650 mg PO Q6H PRN PRN Reason: FEVER Last Admin: 10/01/17 21:09 Dose: 650 mg Amino Acids (Prosource No Carb Liquid Pkt) 30 ml NGT DAILY [facility] Last Admin: 10/08/17 09:11 Dose: Not Given Collagenase (Santyl -) 1 applic TP DAILY [facility] Last Admin: 10/08/17 09:15 Dose: 1 applic Diphenhydramine HCl (Benadryl -) 25 mg PO Q6H PRN PRN Reason: FOR ITCHING Last Admin: 10/03/17 07:33 Dose: 25 mg Docusate Sodium (Colace Liquid -) 100 mg NGT Q8H PRN PRN Reason: CONSTIPATION Ferrous Sulfate (Feosol -) 325 mg PO DAILY@0800 [facility] Last Admin: 10/08/17 09:10 Dose: Not Given Heparin Sodium (Porcine) (Heparin -) 5,000 unit SQ TID [facility] Last Admin: 10/08/17 05:03 Dose: Not Given Hydralazine HCl (Apresoline Injection -) 10 mg IVPUSH Q4H PRN PRN Reason: HYPERTENSION Last Admin: 09/27/17 19:05 Dose: 10 mg Hydralazine HCl (Apresoline -) 50 mg PO TID [facility] Last Admin: 10/08/17 05:31 Dose: 50 mg Levofloxacin (Levaquin 250 Mg Premixed Ivpb -) 250 mg in 50 mls @ 50 mls/hr IVPB Q2D@[address] PRN Reason: Protocol Last Admin: 10/07/17 10:17 Dose: 50 mls/hr Isosorbide Mononitrate (Imdur -) 30 mg PO BID [facility] Last Admin: 10/08/17 09:15 Dose: 30 mg Labetalol HCl (Normodyne -) 200 mg PO Q2H PRN PRN Reason: HYPERTENSION Labetalol HCl (Normodyne -) 600 mg PO TID [facility] Last Admin: 10/08/17 05:31 Dose: 600 mg Lacosamide (Vimpat -) 150 mg PO BID [facility] Last Admin: 10/08/17 09:15 Dose: 150 mg Lacosamide (Vimpat -) 75 mg PO MOWEFR [facility] Last Admin: 10/05/17 15:12 Dose: 75 mg Multivit/Ca Carb/B Cmplx/FA/Prenat (Nephro-Claudia -) 1 tablet PO DAILY [facility] Last Admin: 10/08/17 09:15 Dose: 1 tablet Nifedipine (Procardia Xl -) 90 mg PO BID [facility] Last Admin: 10/08/17 09:15 Dose: 90 mg Nystatin (Mycostatin Cream -) 1 applic TP Q6HPO [facility] Last Admin: 10/08/17 05:02 Dose: Not Given Sevelamer Carbonate (Renvela -) 1,600 mg PO TIDCM [facility] Last Admin: 10/08/17 09:10 Dose: Not Given - Objective Vital Signs: Vital Signs Temperature 98.1 F 10/08/17 09:30 Pulse Rate 91 H 10/08/17 09:30 Respiratory Rate 18 10/08/17 09:30 Blood Pressure 166/84 10/08/17 09:30 O2 Sat by Pulse Oximetry (%) 94 L 10/07/17 21:00 Constitutional: Yes: Well Nourished, Calm Eyes: Yes: WNL HENT: Yes: WNL Neck: Yes: WNL Cardiovascular: Yes: Regular Rate and Rhythm, S1, S2 Respiratory: Yes: Diminished Gastrointestinal: Yes: Normal Bowel Sounds, Soft Extremities: Yes: WNL Edema: No Labs: Problem List - Problems (1) Respiratory failure Code(s): J96.90 - RESPIRATORY FAILURE, UNSP, UNSP W HYPOXIA OR HYPERCAPNIA (2) Acute renal failure Code(s): N17.9 - ACUTE KIDNEY FAILURE, UNSPECIFIED Qualifiers: Acute renal failure type: unspecified Qualified Code(s): N17.9 - Acute kidney failure, unspecified (3) Anemia Code(s): D64.9 - ANEMIA, UNSPECIFIED (4) Autism Code(s): F84.0 - AUTISTIC DISORDER (5) Hypertensive urgency Code(s): I16.0 - HYPERTENSIVE URGENCY (6) Pneumonia Code(s): J18.9 - PNEUMONIA, UNSPECIFIED ORGANISM Qualifiers: Pneumonia type: due to unspecified organism Laterality: unspecified laterality Lung location: unspecified part of lung Qualified Code(s): J18.9 - Pneumonia, unspecified organism Assessment/Plan A/P Hypertensive Urgency resolved Acute Kidney Injury requiring HD Acute Hypoxic Respiratory Failure improved Pneumonia Loculated Pleural Effusion s/p L VATS/pneumolysis Severe Sepsis resolved Lactic Acidosis resolved Thrombocytopenia improved Anemia Autism - antibiotics as per ID - HD per renal - monitor H/H - monitor urine output, creatinine - BP control - O2 - PO as tolerated - DVT/GI prophylaxis - chest x-ray DR WALSH
[2017-10-08] MEDS ORDERED: ALBUTEROL SO4 0.083% IH SOL 2.5 MG/3 ML VIAL.NEB. NEB PRN ×2 (12:01→16:47)
[2017-10-08] MEDS ORDERED: LIDOCAINE HCL 1%, 10 MG/ML (20ML VIAL) ONE (12:21)
[2017-10-08] MEDS ORDERED: HEPARIN NA (PORCINE) 5,000 UNITS/ML 1ML VIAL ONE (12:21)
[2017-10-08] MEDS ORDERED: fentaNYL CITRATE 250 MCG/5 ML VIAL ONE (12:36)
[2017-10-08] MEDS ORDERED: MIDAZOLAM HCL 2 MG/2 ML SINGLE DOSE VIAL ONE (12:36)
[2017-10-08] MEDS ORDERED: BUPIVACAINE HCL/PF 0.5% (5MG/ML) 10 ML VIAL ONE (12:56)
[2017-10-08] MEDS ORDERED: DESFLURANE GAS 240 ML BOTTLE IH ONE (12:57)
[2017-10-08] MEDS ORDERED: VANCOMYCIN 1,000 MG VIAL (RESTRICTED TO ID ONLY) IVPB ONE (12:59)
[2017-10-08] MEDS ORDERED: BUPIVACAINE HCL/PF (5 MG/ML) 30 ML VIAL IJ ONE (13:08)
[2017-10-08] MEDS ORDERED: EPOETIN ALFA 2,000 UNIT/1 ML VIAL IVPUSH ONE (13:38)
[2017-10-08] MEDS ORDERED: BUPIVACAINE 0.75% IN DEXTROSE/PF 2ML AMPULE NR ONE (14:01)
--- NOTE | 2017-10-08 15:02 | OP ---
Operative Note - Note: Operative Date: 10/08/17 Pre-Operative Diagnosis: ESRD Operation: Left brachio-cephalic AV fistula and insertion of permcath Findings: Good artery and vein Implants: Permcath Post-Operative Diagnosis: Same as Pre-op Surgeon: Beni Kc Anesthesiologist/MANAGER PROCUREMENT: Yayo Mojica Anesthesia: General Specimens Removed: none Drains & Tubes with Location: none Operative Report Dictated: Yes
[2017-10-08] MEDS ORDERED: ONDANSETRON 4 MG/2 ML VIAL IVPUSH PRN ×2 (15:07→16:45)
[2017-10-08] MEDS ORDERED: ALBUTEROL SO4 2.5/IPRATROPIUM 0.5 INH SOL 3 ML VIAL.NEB. NEB SCH (16:00)
[2017-10-08] MEDS ORDERED: LACOSAMIDE 50 MG TABLET PO SCH (16:45)
[2017-10-08] MEDS ORDERED: DOCUSATE NA 100 MG/10 ML UNIT-DOSE CUPS NGT PRN (16:45)
--- NOTE | 2017-10-08 16:46 | PN ---
Progress Note, Physician History of Present Illness: Pt seen and examined at bedside. He pulled out his permacath this morning. He went for av fistula and new permacath today. - Current Medication List Current Medications: Active Medications Acetaminophen (Tylenol -) 650 mg PO Q6H PRN PRN Reason: FEVER Last Admin: 10/01/17 21:09 Dose: 650 mg Albuterol Sulfate (Ventolin 0.083% Nebulizer Soln -) 1 amp NEB Q4H PRN PRN Reason: SHORT OF BREATH/WHEEZING Albuterol/Ipratropium (Duoneb -) 1 amp NEB RQID [facility] Amino Acids (Prosource No Carb Liquid Pkt) 30 ml NGT DAILY [facility] Last Admin: 10/08/17 09:11 Dose: Not Given Collagenase (Santyl -) 1 applic TP DAILY [facility] Last Admin: 10/08/17 09:15 Dose: 1 applic Diphenhydramine HCl (Benadryl -) 25 mg PO Q6H PRN PRN Reason: FOR ITCHING Last Admin: 10/03/17 07:33 Dose: 25 mg Divalproex Sodium (Depakote -) 250 mg PO DAILY [facility] Docusate Sodium (Colace Liquid -) 100 mg NGT Q8H PRN PRN Reason: CONSTIPATION Fentanyl (Sublimaze Injection -) 25 mcg IVPUSH [id number] PRN PRN Reason: PAIN-PACU ORDER X 4 DOSES ONLY Ferrous Sulfate (Feosol -) 325 mg PO DAILY@0800 [facility] Last Admin: 10/08/17 09:10 Dose: Not Given Heparin Sodium (Porcine) (Heparin -) 5,000 unit SQ TID [facility] Last Admin: 10/08/17 05:03 Dose: Not Given Hydralazine HCl (Apresoline Injection -) 10 mg IVPUSH Q4H PRN PRN Reason: HYPERTENSION Last Admin: 09/27/17 19:05 Dose: 10 mg Hydralazine HCl (Apresoline -) 50 mg PO TID [facility] Last Admin: 10/08/17 05:31 Dose: 50 mg Isosorbide Mononitrate (Imdur -) 30 mg PO BID [facility] Last Admin: 10/08/17 09:15 Dose: 30 mg Labetalol HCl (Normodyne -) 200 mg PO Q2H PRN PRN Reason: HYPERTENSION Labetalol HCl (Normodyne -) 600 mg PO TID [facility] Last Admin: 10/08/17 05:31 Dose: 600 mg Lacosamide (Vimpat -) 150 mg PO BID [facility] Last Admin: 10/08/17 09:15 Dose: 150 mg Lacosamide (Vimpat -) 75 mg PO MOWEFR [facility] Last Admin: 10/05/17 15:12 Dose: 75 mg Multivit/Ca Carb/B Cmplx/FA/Prenat (Nephro-Claudia -) 1 tablet PO DAILY [facility] Last Admin: 10/08/17 09:15 Dose: 1 tablet Nifedipine (Procardia Xl -) 90 mg PO BID [facility] Last Admin: 10/08/17 09:15 Dose: 90 mg Nystatin (Mycostatin Cream -) 1 applic TP Q6HPO [facility] Last Admin: 10/08/17 12:41 Dose: Not Given Ondansetron HCl (Zofran Injection) 4 mg IVPUSH Q6H PRN PRN Reason: NAUSEA AND/OR VOMITING Sevelamer Carbonate (Renvela -) 1,600 mg PO TIDCM [facility] Last Admin: 10/08/17 12:42 Dose: Not Given - Objective Vital Signs: Vital Signs Temperature 98.1 F 10/08/17 09:30 Pulse Rate 91 H 10/08/17 09:30 Respiratory Rate 18 10/08/17 09:30 Blood Pressure 166/84 10/08/17 09:30 O2 Sat by Pulse Oximetry (%) 94 L 10/08/17 10:00 Constitutional: Yes: Calm Eyes: Yes: Conjunctiva Clear HENT: Yes: Atraumatic Neck: Yes: Supple Cardiovascular: Yes: S1, S2 Respiratory: Yes: CTA Bilaterally Gastrointestinal: Yes: Soft Musculoskeletal: Yes: WNL Edema: No Neurological: Yes: Pre-Existing Deficit Labs: CBC, BMP 10/06/17 07:00 10/06/17 07:00 INR, PTT INR 0.93 (0.82-1.09) 09/26/17 05:40 Fibrinogen 558.0 mg/dL (238-498) H 09/17/17 06:45 Problem List - Problems (1) Acute renal failure Code(s): N17.9 - ACUTE KIDNEY FAILURE, UNSPECIFIED Qualifiers: Acute renal failure type: unspecified Qualified Code(s): N17.9 - Acute kidney failure, unspecified (2) Anemia Code(s): D64.9 - ANEMIA, UNSPECIFIED (3) Hyperkalemia Code(s): E87.5 - HYPERKALEMIA (4) Hypertensive urgency Code(s): I16.0 - HYPERTENSIVE URGENCY (5) Sepsis Code(s): A41.9 - SEPSIS, UNSPECIFIED ORGANISM Qualifiers: Sepsis type: sepsis due to unspecified organism Qualified Code(s): A41.9 - Sepsis, unspecified organism (6) Thrombocytopenia Code(s): D69.6 - THROMBOCYTOPENIA, UNSPECIFIED (7) Seizure Code(s): R56.9 - UNSPECIFIED CONVULSIONS Assessment/Plan Current Medications Generic Name Dose Route Start Last Admin Trade Name Freq PRN Reason Stop Dose Admin Acetaminophen 650 mg 10/01/17 20:52 10/01/17 21:09 Tylenol - PO 650 mg Q6H PRN Administration FEVER Albuterol Sulfate 1 amp 10/08/17 12:01 Ventolin 0.083% Nebulizer Soln - NEB Q4H PRN SHORT OF BREATH/WHEEZING Albuterol/Ipratropium 1 amp 10/08/17 16:00 Duoneb - NEB RQID LANE Amino Acids 30 ml 09/25/17 10:00 10/08/17 09:11 Prosource No Carb Liquid Pkt NGT Not Given DAILY LANE Collagenase 1 applic 10/02/17 16:00 10/08/17 09:15 Santyl - TP [address] Administration Diphenhydramine HCl 25 mg 09/24/17 19:19 10/03/17 07:33 Benadryl - PO 25 mg Q6H PRN Administration FOR ITCHING Divalproex Sodium 250 mg 10/09/17 10:00 Depakote - PO DAILY LANE Docusate Sodium 100 mg 09/24/17 19:19 Colace Liquid - NGT Q8H PRN CONSTIPATION Fentanyl 25 mcg 10/08/17 15:07 Sublimaze Injection - IVPUSH [id number] PRN PAIN-PACU ORDER X 4 DOSES ONLY Ferrous Sulfate 325 mg 10/05/17 16:15 10/08/17 09:10 Feosol - PO Not Given DAILY@0800 [facility] Heparin Sodium (Porcine) 5,000 unit 10/04/17 22:00 10/08/17 05:03 Heparin - SQ Not Given TID LANE Hydralazine HCl 10 mg 09/24/17 19:19 09/27/17 19:05 Apresoline Injection - IVPUSH 10 mg Q4H PRN Administration HYPERTENSION Hydralazine HCl 50 mg 10/06/17 08:47 10/08/17 05:31 Apresoline - PO [address] Administration Isosorbide Mononitrate 30 mg 09/24/17 22:00 10/08/17 09:15 Imdur - PO [address] Administration Labetalol HCl 200 mg 09/24/17 19:19 Normodyne - PO Q2H PRN HYPERTENSION Labetalol HCl 600 mg 10/06/17 08:48 10/08/17 05:31 Normodyne - PO [address] Administration Lacosamide 150 mg 09/24/17 11:57 10/08/17 09:15 Vimpat - PO [address] Administration Lacosamide 75 mg 09/26/17 15:00 10/05/17 15:12 Vimpat - PO 75 mg MOWEFR [facility] Administration Multivit/Ca Carb/B Cmplx/FA/Prenat 1 tablet 09/25/17 10:00 10/08/17 09:15 Nephro-Claudia - PO 1 tablet DAILY [facility] Administration Nifedipine 90 mg 09/24/17 22:00 10/08/17 09:15 Procardia Xl - PO 90 mg BID [facility] Administration Nystatin 1 applic 09/25/17 00:00 10/08/17 12:41 Mycostatin Cream - TP Not Given Q6HPO [facility] Ondansetron HCl 4 mg 10/08/17 15:07 Zofran Injection IVPUSH Q6H PRN NAUSEA AND/OR VOMITING Sevelamer Carbonate 1,600 mg 09/25/17 08:00 10/08/17 12:42 Renvela - PO Not Given TIDCM [facility] Impression 1. ANNA 2. HTN urgency/emergency 3. hyperkalemia 4. hyponatremia 5. autism 6. hx of seizure 7. anemia 8. CKD 9. lactic acidosis improving 10. thrombocytopenia 11. hyperkalemia 12. pleural effusion 13. acute resp failure requiring intubation 14. ESRD Plan - pt did not get HD this am as he pulled his permacath - check bmp now - fistula with thrill and bruit - HD at [facility] for anemia - discussed plan with pts mother Dr Velasquez
[2017-10-08] MEDS ORDERED: diphenhydrAMINE HCL 25 MG CAPSULE (FP) PO PRN (16:48)
[2017-10-08] MEDS ORDERED: hydrALAZINE HCL 20 MG/ML VIAL IVPUSH PRN (16:52)
[2017-10-08] MEDS ORDERED: LABETALOL HCL 200 MG TABLET (FP) PO PRN (16:55)
[2017-10-08] MEDS: ACETAMINOPHEN 325 MG TABLET (FP) PO PRN (18:09)
[2017-10-08 18:12] LABS: CHLORIDE 102 mmol/L (98-107); POTASSIUM 4.5 mmol/L (3.5-5.1); SODIUM 139 mmol/L (136-145)
[2017-10-08 18:30] LABS: ANION GAP 12 (8-16); BLOOD UREA NITROGEN 56 mg/dL (7-18); CALCIUM 8.6 mg/dL (8.5-10.1); CO2 25 mmol/L (21-32); GLUCOSE,RANDOM 105 mg/dL (74-106)
[2017-10-08 18:32] LABS: CREATININE 12.1 mg/dL (0.7-1.3)
[2017-10-08] MEDS: ALBUTEROL SO4 2.5/IPRATROPIUM 0.5 INH SOL 3 ML VIAL.NEB. NEB SCH (20:22)
[2017-10-08 21:20] LABS: ALK PHOS 114 U/L (45-117); BILIRUBIN,DIRECT < 0.2 mg/dL (0.0-0.2); BILIRUBIN,TOTAL 0.4 mg/dL (0.2-1.0); SGOT/AST 18 U/L (15-37); SGPT/ALT 22 U/L (12-78); TOT PROT 6.6 g/dl (6.4-8.2)
[2017-10-09] MEDS: NYSTATIN 100,000 UNIT/GM TOPICAL CREAM 15 GM TUBE TP SCH ×3 (05:15→19:30)
[2017-10-09] MEDS: HEPARIN NA (PORCINE) 5,000 UNITS/ML 1ML VIAL SQ SCH ×3 (05:30→21:43)
[2017-10-09] MEDS: LABETALOL HCL 200 MG TABLET (FP) PO SCH ×3 (05:31→21:43)
[2017-10-09] MEDS: hydrALAZINE HCL 50 MG TABLET (FP) PO SCH ×3 (05:31→21:43)
[2017-10-09] MEDS: ALBUTEROL SO4 2.5/IPRATROPIUM 0.5 INH SOL 3 ML VIAL.NEB. NEB SCH ×4 (07:30→19:55)
[2017-10-09] MEDS: EPOETIN ALFA 3,000 UNIT, EPOETIN ALFA 4,000 UNIT IVPUSH ONE ×2 (07:59→12:46)
--- NOTE | 2017-10-09 07:59 | PN ---
Physical Exam: SUBJECTIVE: Patient seen and examined at bedside s/p HD today. On ventimask. Mother at bedside. OBJECTIVE: Vital Signs Period Temp Pulse Resp BP Sys/Mora Pulse Ox Last 24 Hr 97.3 F-98.1 F 81-93 18-20 134-180/77-93 91-98 GENERAL/NEURO: The patient is awake, alert, interactive, "mama" LUNGS: Breath sounds equal, clear to auscultation bilaterally, no wheezes, no crackles, no accessory muscle use. HEART: Regular rate and rhythm, S1, S2 without murmur, rub or gallop. ABDOMEN: Soft, nontender, nondistended, normoactive bowel sounds EXTREMITIES: 2+ pulses, warm, well-perfused, no edema Active Medications Generic Name Dose Route Start Last Admin Trade Name Freq PRN Reason Stop Dose Admin Acetaminophen 650 mg 10/08/17 16:47 10/08/17 18:09 Tylenol - PO 650 mg Q6H PRN Administration FEVER Albuterol Sulfate 1 amp 10/08/17 16:47 10/08/17 19:02 Ventolin 0.083% Nebulizer Soln - NEB 1 amp Q4H PRN Administration SHORT OF BREATH/WHEEZING Albuterol/Ipratropium 1 amp 10/08/17 20:00 10/08/17 20:22 Duoneb - NEB Not Given RQID LANE Amino Acids 30 ml 10/09/17 10:00 Prosource No Carb Liquid Pkt NGT DAILY LANE Collagenase 1 applic 10/09/17 10:00 Santyl - TP DAILY LANE Diphenhydramine HCl 25 mg 10/08/17 16:48 Benadryl - PO Q6H PRN FOR ITCHING Divalproex Sodium 250 mg 10/09/17 10:00 Depakote - PO DAILY LANE Docusate Sodium 100 mg 10/08/17 16:45 Colace Liquid - NGT Q8H PRN CONSTIPATION Epoetin Mir 3,000 unit/ 7,000 unit 10/09/17 08:00 Epoetin Mir 4,000 unit IVPUSH 10/09/17 08:01 ONCE ONE Ferrous Sulfate 325 mg 10/09/17 08:00 Feosol - PO DAILY@0800 LANE Heparin Sodium (Porcine) 5,000 unit 10/08/17 22:00 10/09/17 05:30 Heparin - SQ 5,[address] Administration Hydralazine HCl 50 mg 10/08/17 22:00 10/09/17 05:31 Apresoline - PO [address] Administration Hydralazine HCl 10 mg 10/08/17 16:52 Apresoline Injection - IVPUSH Q4H PRN HYPERTENSION Isosorbide Mononitrate 30 mg 10/08/17 22:00 10/08/17 22:47 Imdur - PO [address] Administration Labetalol HCl 200 mg 10/08/17 16:55 10/08/17 18:08 Normodyne - PO 200 mg Q2H PRN Administration HYPERTENSION Labetalol HCl 600 mg 10/08/17 22:00 10/09/17 05:31 Normodyne - PO [address] Administration Lacosamide 150 mg 10/08/17 22:00 10/08/17 22:47 Vimpat - PO [address] Administration Lacosamide 75 mg 10/08/17 16:45 10/08/17 19:31 Vimpat - PO Not Given MOWEFR [facility] Multivit/Ca Carb/B Cmplx/FA/Prenat 1 tablet 10/09/17 10:00 Nephro-Claudia - PO DAILY [facility] Nifedipine 90 mg 10/08/17 22:00 10/08/17 22:47 Procardia Xl - PO [address] Administration Nystatin 1 applic 10/08/17 18:00 10/09/17 05:15 Mycostatin Cream - TP Not Given Q6HPO [facility] Ondansetron HCl 4 mg 10/08/17 16:45 Zofran Injection IVPUSH Q6H PRN NAUSEA AND/OR VOMITING Sevelamer Carbonate 1,600 mg 10/08/17 17:30 10/08/17 18:08 Renvela - PO 1,[address] Administration ASSESSMENT/PLAN 22 year-old male with PMH significant for HTN, autism, and epilepsy. Admitted for pneumonia, ANNA, hypertensive emergency. Hospital course complicated by acute respiratory failure, requiring intubation and emergent HD. Hospital course further complicated by persistent left pleural effusion requiring VATS and pneumolysis on 09/17. Hypoxia --satting 74% on room air this am prior to HD, 86% after HD; repeat CXR improved from yesterday but still with congestion; no fever, no leukocytosis --discussed with Drs. Bonilla and Eva --Dr. Velasquez will consider HD again tomorrow --no abx for now Left pleural effusion with loculation, resolved --s/p thoracentesis 09/02; --s/p pigtail 09/04; --s/p bronchoscopy/left VATS/drainage of effusion/pneumolysis 09/17 --chest tubes pulled 09/20 and 09/21 Severe sepsis secondary to pneumonia --resolved Leukocytosis, resolved --09/28-->10/01 elevated WBC, resolved --cultures were negative --treated with vanco x 2 doses; levaquin x 4 doses ANNA on HD ESRD --renal biopsy done 09/26; per renal note dated 10/01 appears kidney disease likely from HTN and is end-stage --AV fistula on 10/08; replacement perma cath 10/08 --HD today Severe, refractory hypertension --better controlled --contine labetolol, nifedipine, hydralazine, Imdur Epilepsy --continue Vimpat DVT prophylaxis: subq heparin Dispo: Patient requires a lightweight wheelchair in order to complete ADLs within the home. Patient will benefit from a lightweight wheelchair due to his inability to self-propel in a standard weight wheelchair. Visit type - Emergency Visit Emergency Visit: Yes ED Registration Date: 08/29/17 Care time: The patient presented to the Emergency Department on the above date and was hospitalized for further evaluation of their emergent condition. - New Patient This patient is new to me today: No - Critical Care Critical Care patient: No
[2017-10-09 08:50] LABS: BASO % 0.9 % (0-2.0); EOS % 3.6 % (0-4.5); HEMATOCRIT 26.6 % (35.4-49); HEMOGLOBIN 8.9 GM/dL (11.7-16.9); MCH 29.4 pg (25.7-33.7); MCHC 33.5 g/dl (32.0-35.9); MEAN CELL VOLUME 87.6 fl (80-96); MEAN PLT VOLUME 7.7 fl (7.5-11.1); MONO % 2.2 % (3.8-10.2); NEUT % 71.3 % (42.8-82.8); PLATELET COUNT 265 K/MM3 (134-434); RBC 3.04 M/mm3 (4.00-5.60); RDW 14.4 % (11.9-15.9); WHITE BLOOD COUNT 7.9 K/mm3 (4.0-10.0)
[2017-10-09 09:21] LABS: ANION GAP 12 (8-16); BLOOD UREA NITROGEN 55 mg/dL (7-18); CALCIUM 8.4 mg/dL (8.5-10.1); CHLORIDE 102 mmol/L (98-107); CO2 27 mmol/L (21-32); GLUCOSE,RANDOM 101 mg/dL (74-106); MAGNESIUM 2.6 mg/dL (1.8-2.4); POTASSIUM 4.4 mmol/L (3.5-5.1); SODIUM 141 mmol/L (136-145)
[2017-10-09 09:32] LABS: CREATININE 11.7 mg/dL (0.7-1.3)
--- NOTE | 2017-10-09 09:49 | OP ---
DATE OF OPERATION: 10/08/2017 PREOPERATIVE DIAGNOSIS: End-stage renal disease. POSTOPERATIVE DIAGNOSIS: End-stage renal disease. SURGERY PERFORMED: Left brachiocephalic arteriovenous fistula and insertion of PermCath right internal jugular vein. SURGEON: Beni Kc M.D. ANESTHESIA: General. DESCRIPTION OF PROCEDURE: This patient is a mentally retarded 22-year-old gentleman who requires hemodialysis. Preoperative evaluation revealed that a left brachiocephalic AV fistula would be the most appropriate access. The patient was taken to the OR, placed under general anesthesia with the LMA device and given a gram of vancomycin. The left arm was prepped and draped in the usual sterile manner. A small transverse incision was made in the antecubital fossa, through which the median antecubital vein was easily identified. It was divided through a branch point using 3-0 silk ties, and the end of the vein was spatulated through a branch point. The 8 Burkinan feeding tube passed easily up this vein and heparinized saline was instilled. Through the same incision, the brachial artery was identified. It was surrounded with 2 vessel loops and opened with the 11 blade and Bey scissors. The 8 Burkinan feeding tube was passed proximally and distally and heparinized saline was instilled. An end-to-side anastomosis was carried out to the artery with 6-0 Prolene suture. Once completed, the were released. It was an excellent thrill felt in the fistula. The wound was irrigated with saline solution and closed with running 3-0 Vicryl suture for the deep layer, 4-0 Monocryl for the skin. Dermabond adhesive dressing followed by a Tegaderm, followed by a Kerlix dressing was applied to the wound. Attention was turned to the right side of the neck. The neck and chest area was prepped and draped in the usual sterile manner, and using ultrasound guidance and a Micropuncture catheter, the right internal jugular vein was easily cannulated, and the guidewire was passed under fluoroscopy into the right atrium. Through a small counter incision on the right chest wall, a 19 cm PermCath was inserted using the tunneling device. The micro sheath was then exchanged for the larger guidewire, and the position of this was confirmed under fluoroscopy. The tract was dilated with multiple successively larger dilators, and finally the peel away sheath and dilator was passed over the guidewire, guidewire and dilator were removed, and the catheter was placed easily through the peel away sheath, which was then removed. There was excellent blood flow in and out of the catheter. It was capped with heparin and anchored with 2-0 nylon sutures. Sterile dressings were applied. At the end of the procedure, fluoroscopic x-rays showed no pneumothorax, and the catheter in good position. Estimated blood loss was 25 mL, no transfusions given. Patient taken to recovery in stable, alert condition. Carine [id number]
[2017-10-09] MEDS ORDERED: DIVALPROEX SODIUM 250 MG TABLET E.C. PO SCH (10:00)
--- NOTE | 2017-10-09 11:30 | PN ---
Progress Note, Physician History of Present Illness: pulmonary alert,earlier events noted,desaturating to 78% on ra,placed on 50% vm current o2 sat 99%. pt s/p HD with removal 2.5 liters. pt appears comfortable,-congestion,-dyspnea,-tachypnea - Current Medication List Current Medications: Active Medications Acetaminophen (Tylenol -) 650 mg PO Q6H PRN PRN Reason: FEVER Last Admin: 10/08/17 18:09 Dose: 650 mg Albuterol Sulfate (Ventolin 0.083% Nebulizer Soln -) 1 amp NEB Q4H PRN PRN Reason: SHORT OF BREATH/WHEEZING Last Admin: 10/08/17 19:02 Dose: 1 amp Albuterol/Ipratropium (Duoneb -) 1 amp NEB RQID [facility] Last Admin: 10/09/17 07:30 Dose: 1 amp Amino Acids (Prosource No Carb Liquid Pkt) 30 ml NGT DAILY [facility] Collagenase (Santyl -) 1 applic TP DAILY [facility] Diphenhydramine HCl (Benadryl -) 25 mg PO Q6H PRN PRN Reason: FOR ITCHING Divalproex Sodium (Depakote -) 250 mg PO DAILY [facility] Docusate Sodium (Colace Liquid -) 100 mg NGT Q8H PRN PRN Reason: CONSTIPATION Ferrous Sulfate (Feosol -) 325 mg PO DAILY@0800 [facility] Heparin Sodium (Porcine) (Heparin -) 5,000 unit SQ TID [facility] Last Admin: 10/09/17 05:30 Dose: 5,000 unit Hydralazine HCl (Apresoline -) 50 mg PO TID [facility] Last Admin: 10/09/17 05:31 Dose: 50 mg Hydralazine HCl (Apresoline Injection -) 10 mg IVPUSH Q4H PRN PRN Reason: HYPERTENSION Isosorbide Mononitrate (Imdur -) 30 mg PO BID [facility] Last Admin: 10/08/17 22:47 Dose: 30 mg Labetalol HCl (Normodyne -) 200 mg PO Q2H PRN PRN Reason: HYPERTENSION Last Admin: 10/08/17 18:08 Dose: 200 mg Labetalol HCl (Normodyne -) 600 mg PO TID [facility] Last Admin: 10/09/17 05:31 Dose: 600 mg Lacosamide (Vimpat -) 150 mg PO BID [facility] Last Admin: 10/08/17 22:47 Dose: 150 mg Lacosamide (Vimpat -) 75 mg PO MOWEFR [facility] Last Admin: 10/08/17 19:31 Dose: Not Given Multivit/Ca Carb/B Cmplx/FA/Prenat (Nephro-Claudia -) 1 tablet PO DAILY [facility] Nifedipine (Procardia Xl -) 90 mg PO BID [facility] Last Admin: 10/08/17 22:47 Dose: 90 mg Nystatin (Mycostatin Cream -) 1 applic TP Q6HPO [facility] Last Admin: 10/09/17 05:15 Dose: Not Given Ondansetron HCl (Zofran Injection) 4 mg IVPUSH Q6H PRN PRN Reason: NAUSEA AND/OR VOMITING Sevelamer Carbonate (Renvela -) 1,600 mg PO TIDCM [facility] Last Admin: 10/08/17 18:08 Dose: 1,600 mg - Objective Vital Signs: Vital Signs Temperature 97.4 F L 10/09/17 06:00 Pulse Rate 83 10/09/17 11:05 Respiratory Rate 18 10/09/17 11:05 Blood Pressure 165/82 10/09/17 11:05 O2 Sat by Pulse Oximetry (%) 95 10/09/17 08:54 Constitutional: Yes: Well Nourished, Calm Eyes: Yes: WNL HENT: Yes: WNL Neck: Yes: WNL Cardiovascular: Yes: Regular Rate and Rhythm, S1, S2 Respiratory: Yes: Rales (poor inspiratory effort,few bibasialr rales) Gastrointestinal: Yes: Normal Bowel Sounds, Soft Extremities: Yes: WNL Edema: No Labs: CBC, BMP 10/09/17 07:00 10/09/17 07:00 INR, PTT INR 0.93 (0.82-1.09) 09/26/17 05:40 Fibrinogen 558.0 mg/dL (238-498) H 09/17/17 06:45 Problem List - Problems (1) Respiratory failure Code(s): J96.90 - RESPIRATORY FAILURE, UNSP, UNSP W HYPOXIA OR HYPERCAPNIA (2) Acute renal failure Code(s): N17.9 - ACUTE KIDNEY FAILURE, UNSPECIFIED Qualifiers: Acute renal failure type: unspecified Qualified Code(s): N17.9 - Acute kidney failure, unspecified (3) Anemia Code(s): D64.9 - ANEMIA, UNSPECIFIED (4) Autism Code(s): F84.0 - AUTISTIC DISORDER (5) Hypertensive urgency Code(s): I16.0 - HYPERTENSIVE URGENCY (6) Pneumonia Code(s): J18.9 - PNEUMONIA, UNSPECIFIED ORGANISM Qualifiers: Pneumonia type: due to unspecified organism Laterality: unspecified laterality Lung location: unspecified part of lung Qualified Code(s): J18.9 - Pneumonia, unspecified organism Assessment/Plan A/P Hypertensive Urgency resolved Acute Kidney Injury requiring HD Acute Hypoxic Respiratory Failure Pneumonia Loculated Pleural Effusion s/p L VATS/pneumolysis Severe Sepsis resolved Lactic Acidosis resolved Thrombocytopenia improved Anemia Autism - antibiotics as per ID - HD per renal - monitor H/H - monitor urine output, creatinine - BP control - O2 to maintain O2 sat >90% - PO as tolerated - DVT/GI prophylaxis - chest x-ray later today - inhaled bronchodilators DR WALSH
--- NOTE | 2017-10-09 12:17 | PN ---
Progress Note (short form) - Note Progress Note: \ Chief Complaint: HTN emergency History of Present Illness: This morning --> desaturation to 78% on ra with assoc resp distress. Placed on 50% vm --> with improvemetn in o2 sat. pt s/p HD today with removal 2.5 liters. No recurrence of resp distress. Current Medications Acetaminophen (Tylenol -) 650 mg PO Q6H PRN PRN Reason: FEVER Last Admin: 10/08/17 18:09 Dose: 650 mg Albuterol Sulfate (Ventolin 0.083% Nebulizer Soln -) 1 amp NEB Q4H PRN PRN Reason: SHORT OF BREATH/WHEEZING Last Admin: 10/08/17 19:02 Dose: 1 amp Albuterol/Ipratropium (Duoneb -) 1 amp NEB RQID [facility] Last Admin: 10/09/17 12:03 Dose: 1 amp Amino Acids (Prosource No Carb Liquid Pkt) 30 ml NGT DAILY [facility] Collagenase (Santyl -) 1 applic TP DAILY [facility] Diphenhydramine HCl (Benadryl -) 25 mg PO Q6H PRN PRN Reason: FOR ITCHING Divalproex Sodium (Depakote -) 250 mg PO DAILY [facility] Docusate Sodium (Colace Liquid -) 100 mg NGT Q8H PRN PRN Reason: CONSTIPATION Ferrous Sulfate (Feosol -) 325 mg PO DAILY@0800 [facility] Heparin Sodium (Porcine) (Heparin -) 5,000 unit SQ TID [facility] Last Admin: 10/09/17 05:30 Dose: 5,000 unit Hydralazine HCl (Apresoline -) 50 mg PO TID [facility] Last Admin: 10/09/17 05:31 Dose: 50 mg Hydralazine HCl (Apresoline Injection -) 10 mg IVPUSH Q4H PRN PRN Reason: HYPERTENSION Isosorbide Mononitrate (Imdur -) 30 mg PO BID [facility] Last Admin: 10/08/17 22:47 Dose: 30 mg Labetalol HCl (Normodyne -) 200 mg PO Q2H PRN PRN Reason: HYPERTENSION Last Admin: 10/08/17 18:08 Dose: 200 mg Labetalol HCl (Normodyne -) 600 mg PO TID [facility] Last Admin: 10/09/17 05:31 Dose: 600 mg Lacosamide (Vimpat -) 150 mg PO BID [facility] Last Admin: 10/08/17 22:47 Dose: 150 mg Lacosamide (Vimpat -) 75 mg PO MOWEFR [facility] Last Admin: 10/08/17 19:31 Dose: Not Given Multivit/Ca Carb/B Cmplx/FA/Prenat (Nephro-Claudia -) 1 tablet PO DAILY [facility] Nifedipine (Procardia Xl -) 90 mg PO BID [facility] Last Admin: 10/08/17 22:47 Dose: 90 mg Nystatin (Mycostatin Cream -) 1 applic TP Q6HPO [facility] Last Admin: 10/09/17 05:15 Dose: Not Given Ondansetron HCl (Zofran Injection) 4 mg IVPUSH Q6H PRN PRN Reason: NAUSEA AND/OR VOMITING Sevelamer Carbonate (Renvela -) 1,600 mg PO TIDCM [facility] Last Admin: 10/08/17 18:08 Dose: 1,600 mg - Objective Vital Signs: Vital Signs - 24 hr 10/08/17 10/08/17 10/08/17 14:55 15:10 15:25 Temperature 97.5 F L Pulse Rate 86 86 82 Respiratory 20 18 18 Rate Blood Pressure 155/84 157/84 155/90 O2 Sat by Pulse 98 95 96 Oximetry (%) 10/08/17 10/08/17 10/08/17 15:40 15:55 16:10 Temperature Pulse Rate 81 89 88 Respiratory 18 18 18 Rate Blood Pressure 156/87 163/89 165/91 O2 Sat by Pulse 94 L 94 L 94 L Oximetry (%) 10/08/17 10/08/17 10/08/17 16:25 16:40 16:55 Temperature 97.3 F L Pulse Rate 83 88 82 Respiratory 18 18 18 Rate Blood Pressure 155/87 171/89 160/89 O2 Sat by Pulse 94 L 94 L 95 Oximetry (%) 10/08/17 10/08/17 10/09/17 17:57 21:00 06:00 Temperature 97.9 F 98.1 F 97.4 F L Pulse Rate 93 H 91 H 87 Respiratory 18 18 18 Rate Blood Pressure 180/90 149/82 168/93 O2 Sat by Pulse 91 L Oximetry (%) 10/09/17 10/09/17 10/09/17 07:00 07:30 08:00 Temperature Pulse Rate 84 82 82 Respiratory 18 18 18 Rate Blood Pressure 134/77 157/93 165/85 O2 Sat by Pulse Oximetry (%) 10/09/17 10/09/17 10/09/17 08:30 08:54 09:00 Temperature Pulse Rate 81 85 Respiratory 18 18 Rate Blood Pressure 157/87 172/98 O2 Sat by Pulse 95 Oximetry (%) 10/09/17 10/09/17 10/09/17 09:30 10:00 10:30 Temperature Pulse Rate 80 80 90 Respiratory 18 18 18 Rate Blood Pressure 172/95 165/93 168/83 O2 Sat by Pulse Oximetry (%) 10/09/17 10/09/17 11:00 11:05 Temperature Pulse Rate 86 83 Respiratory 18 18 Rate Blood Pressure 161/81 165/82 O2 Sat by Pulse Oximetry (%) Intake & Output 10/07/17 10/08/17 10/09/17 10/10/17 07:59 07:59 07:59 07:59 Intake Total 800 780 160 Output Total 5 Balance 800 780 155 Weight 170 lb 171 lb Constitutional: Yes: Well Nourished, No Distress, Calm Cardiovascular: Yes: Regular Rate and Rhythm, S1, S2. No: Gallop, Murmur Respiratory: Yes: Regular, CTA Bilaterally. No: Accessory Muscle Use, Rales, Wheezes Extremities: No: Cold Edema: No Neurological: Yes: Lethargy. No: Seizure Psychiatric: No: Agitated Labs: CBC, BMP 10/09/17 07:00 10/09/17 07:00 Assessment/Plan echo 08/2017: nl lv/rv, no sig valve path a/p: 22 m hx autism, seizures, possible underlying ckd/htn here with ams, respiratory failure/sepsis, anna requiring HD and hypertensive urgency. Cardiac course complicated by mild troponin elevation and prolonged qtc. HTN emergency: -initially with difficult to control BP -BP much improved on current regimen, ranging 140s-160s for the most part -10/06 decr'd hydral to 50 TID, incr labetalol to 600 TID (to minimize risk of rare but severe hydralazine toxicities). -cont high dose nifedipine for now as doing, monitor for severe constipation -bp stable. same meds. hydral, labetolol, imdur, nifedipine. - 10/09: bp slightly more elevated but in setting of resp distress this am. Monitor for improvement now that resp status is more stable. -deferring RAAS-blockers for now given ANNA with renal w/u ongoing ANNA-->ESRD -per renal, biopsy c/w end-stage hypertensive renal dz -on HD abnormal troponins - flat trend, with intermediate range values - secondary to sepsis myocardial injury, vs demand ischemia (severe HTN, with tachycardia to 120s-130s). no clinical findings to support acs here. anemia: -chronic, ? sec to CDK -mgm't per primary team hypoxic respiratory failure s/p intubation, PNA with loculated parapneumonic effusion -s/p VATS/pleurodesis, chest tubes now out - 10/09: episode of desaturation and resp distress. Improved on oxygen and s/p HD. cxr pending. pulm following.
[2017-10-09] MEDS: SEVELAMER CARBONATE 800 MG TAB (FP) PO SCH ×3 (12:22→18:12)
[2017-10-09] MEDS: DIVALPROEX SODIUM 250 MG TABLET E.C. PO SCH ×3 (12:22→19:40)
[2017-10-09] MEDS: NIFEdipine E.R. 90 MG TABLET (FP) PO SCH ×2 (12:22→21:43)
[2017-10-09] MEDS: ISOSORBIDE MONONITRATE 30 MG TAB.SR.24H (FP) PO SCH ×2 (12:22→21:43)
[2017-10-09] MEDS: AMINO ACIDS/PROTEIN HYDROLYS 30 ML LIQUID.PKT NGT SCH (12:23)
[2017-10-09] MEDS: LACOSAMIDE 50 MG TABLET PO SCH ×3 (12:23→21:43)
[2017-10-09] MEDS ORDERED: PT OWN MED DRAWER 7, Y5N ONE (12:41)
[2017-10-09] MEDS: VITAMIN B COMP W-C 1 EA TABLET PO SCH (12:45)
[2017-10-09] MEDS: FERROUS SO4 325 MG TABLET (FP) PO SCH (12:45)
[2017-10-09] MEDS: ACETAMINOPHEN 325 MG TABLET (FP) PO PRN (13:53)
[2017-10-09] MEDS: COLLAGENASE CLOSTRIDIUM HIST. 30 GRAMS TUBE TP SCH (14:00)
--- NOTE | 2017-10-09 14:19 | PN ---
Progress Note, Physician History of Present Illness: Pt seen and examined at bedside. He is awake and alert. He was hypoxic this morning. His breathing is better now. - Current Medication List Current Medications: Active Medications Acetaminophen (Tylenol -) 650 mg PO Q6H PRN PRN Reason: FEVER Last Admin: 10/09/17 13:53 Dose: 650 mg Albuterol Sulfate (Ventolin 0.083% Nebulizer Soln -) 1 amp NEB Q4H PRN PRN Reason: SHORT OF BREATH/WHEEZING Last Admin: 10/08/17 19:02 Dose: 1 amp Albuterol/Ipratropium (Duoneb -) 1 amp NEB RQID [facility] Last Admin: 10/09/17 12:03 Dose: 1 amp Amino Acids (Prosource No Carb Liquid Pkt) 30 ml NGT DAILY [facility] Last Admin: 10/09/17 12:23 Dose: 30 ml Collagenase (Santyl -) 1 applic TP DAILY [facility] Diphenhydramine HCl (Benadryl -) 25 mg PO Q6H PRN PRN Reason: FOR ITCHING Docusate Sodium (Colace Liquid -) 100 mg NGT Q8H PRN PRN Reason: CONSTIPATION Ferrous Sulfate (Feosol -) 325 mg PO DAILY@0800 [facility] Last Admin: 10/09/17 12:45 Dose: 325 mg Heparin Sodium (Porcine) (Heparin -) 5,000 unit SQ TID [facility] Last Admin: 10/09/17 05:30 Dose: 5,000 unit Hydralazine HCl (Apresoline -) 50 mg PO TID [facility] Last Admin: 10/09/17 05:31 Dose: 50 mg Hydralazine HCl (Apresoline Injection -) 10 mg IVPUSH Q4H PRN PRN Reason: HYPERTENSION Isosorbide Mononitrate (Imdur -) 30 mg PO BID [facility] Last Admin: 10/09/17 12:22 Dose: 30 mg Labetalol HCl (Normodyne -) 200 mg PO Q2H PRN PRN Reason: HYPERTENSION Last Admin: 10/08/17 18:08 Dose: 200 mg Labetalol HCl (Normodyne -) 600 mg PO TID [facility] Last Admin: 10/09/17 05:31 Dose: 600 mg Lacosamide (Vimpat -) 150 mg PO BID [facility] Last Admin: 10/09/17 12:23 Dose: 150 mg Lacosamide (Vimpat -) 75 mg PO TUTA [facility] Multivit/Ca Carb/B Cmplx/FA/Prenat (Nephro-Claudia -) 1 tablet PO DAILY [facility] Last Admin: 10/09/17 12:45 Dose: 1 tablet Nifedipine (Procardia Xl -) 90 mg PO BID [facility] Last Admin: 10/09/17 12:22 Dose: 90 mg Nystatin (Mycostatin Cream -) 1 applic TP Q6HPO [facility] Last Admin: 10/09/17 05:15 Dose: Not Given Ondansetron HCl (Zofran Injection) 4 mg IVPUSH Q6H PRN PRN Reason: NAUSEA AND/OR VOMITING Sevelamer Carbonate (Renvela -) 1,600 mg PO TIDCM [facility] Last Admin: 10/09/17 12:22 Dose: 1,600 mg - Objective Vital Signs: Vital Signs Temperature 99.2 F 10/09/17 12:00 Pulse Rate 96 H 10/09/17 12:00 Respiratory Rate 20 10/09/17 12:00 Blood Pressure 150/80 10/09/17 12:00 O2 Sat by Pulse Oximetry (%) 95 10/09/17 08:54 Constitutional: Yes: Calm Eyes: Yes: Conjunctiva Clear HENT: Yes: Atraumatic Cardiovascular: Yes: S1, S2 Respiratory: Yes: On Nasal O2 Gastrointestinal: Yes: Soft Musculoskeletal: Yes: WNL Extremities: Yes: Other (left arm fistula with thrill and bruit) Neurological: Yes: Pre-Existing Deficit Labs: CBC, BMP 10/09/17 07:00 10/09/17 07:00 INR, PTT INR 0.93 (0.82-1.09) 09/26/17 05:40 Fibrinogen 558.0 mg/dL (238-498) H 09/17/17 06:45 - ....Imaging Chest X-ray: Report Reviewed Problem List - Problems (1) Acute renal failure Code(s): N17.9 - ACUTE KIDNEY FAILURE, UNSPECIFIED Qualifiers: Acute renal failure type: unspecified Qualified Code(s): N17.9 - Acute kidney failure, unspecified (2) Anemia Code(s): D64.9 - ANEMIA, UNSPECIFIED (3) Hyperkalemia Code(s): E87.5 - HYPERKALEMIA (4) Hypertensive urgency Code(s): I16.0 - HYPERTENSIVE URGENCY (5) Sepsis Code(s): A41.9 - SEPSIS, UNSPECIFIED ORGANISM Qualifiers: Sepsis type: sepsis due to unspecified organism Qualified Code(s): A41.9 - Sepsis, unspecified organism (6) Thrombocytopenia Code(s): D69.6 - THROMBOCYTOPENIA, UNSPECIFIED (7) Seizure Code(s): R56.9 - UNSPECIFIED CONVULSIONS Assessment/Plan Current Medications Generic Name Dose Route Start Last Admin Trade Name Freq PRN Reason Stop Dose Admin Acetaminophen 650 mg 10/08/17 16:47 10/09/17 13:53 Tylenol - PO 650 mg Q6H PRN Administration FEVER Albuterol Sulfate 1 amp 10/08/17 16:47 10/08/17 19:02 Ventolin 0.083% Nebulizer Soln - NEB 1 amp Q4H PRN Administration SHORT OF BREATH/WHEEZING Albuterol/Ipratropium 1 amp 10/08/17 20:00 10/09/17 12:03 Duoneb - NEB [address] Administration Amino Acids 30 ml 10/09/17 10:00 10/09/17 12:23 Prosource No Carb Liquid Pkt NGT [address] Administration Collagenase 1 applic 10/09/17 10:00 Santyl - TP DAILY LANE Diphenhydramine HCl 25 mg 10/08/17 16:48 Benadryl - PO Q6H PRN FOR ITCHING Docusate Sodium 100 mg 10/08/17 16:45 Colace Liquid - NGT Q8H PRN CONSTIPATION Ferrous Sulfate 325 mg 10/09/17 08:00 10/09/17 12:45 Feosol - PO 325 mg DAILY@08[address] Administration Heparin Sodium (Porcine) 5,000 unit 10/08/17 22:00 10/09/17 05:30 Heparin - SQ 5,[address] Administration Hydralazine HCl 50 mg 10/08/17 22:00 10/09/17 05:31 Apresoline - PO [address] Administration Hydralazine HCl 10 mg 10/08/17 16:52 Apresoline Injection - IVPUSH Q4H PRN HYPERTENSION Isosorbide Mononitrate 30 mg 10/08/17 22:00 10/09/17 12:22 Imdur - PO [address] Administration Labetalol HCl 200 mg 10/08/17 16:55 10/08/17 18:08 Normodyne - PO 200 mg Q2H PRN Administration HYPERTENSION Labetalol HCl 600 mg 10/08/17 22:00 10/09/17 05:31 Normodyne - PO [address] Administration Lacosamide 150 mg 10/08/17 22:00 10/09/17 12:23 Vimpat - PO [address] Administration Lacosamide 75 mg 10/09/17 14:00 Vimpat - PO TUTHSA [facility] Multivit/Ca Carb/B Cmplx/FA/Prenat 1 tablet 10/09/17 10:00 10/09/17 12:45 Nephro-Claudia - PO [address] Administration Nifedipine 90 mg 10/08/17 22:00 10/09/17 12:22 Procardia Xl - PO [address] Administration Nystatin 1 applic 10/08/17 18:00 10/09/17 05:15 Mycostatin Cream - TP Not Given Q6HPO LANE Ondansetron HCl 4 mg 10/08/17 16:45 Zofran Injection IVPUSH Q6H PRN NAUSEA AND/OR VOMITING Sevelamer Carbonate 1,600 mg 10/08/17 17:30 10/09/17 12:22 Renvela - PO 1,[address] Administration Impression 1. ANNA 2. HTN urgency/emergency 3. hyperkalemia 4. hyponatremia 5. autism 6. hx of seizure 7. anemia 8. CKD 9. lactic acidosis improving 10. thrombocytopenia 11. hyperkalemia 12. pleural effusion 13. acute resp failure requiring intubation 14. ESRD Plan - HD today - will arrange for another HD session tomorrow - cxr reviewed - pulse ox improved - fistula with thrill and bruit - monitor pulse ox Dr Velasquez
[2017-10-10] MEDS: DIVALPROEX SODIUM 250 MG TABLET E.C. PO SCH (00:09)
[2017-10-10] MEDS: NYSTATIN 100,000 UNIT/GM TOPICAL CREAM 15 GM TUBE TP SCH ×5 (00:16→18:21)
[2017-10-10] MEDS: HEPARIN NA (PORCINE) 5,000 UNITS/ML 1ML VIAL SQ SCH ×3 (05:26→21:54)
[2017-10-10] MEDS: LABETALOL HCL 200 MG TABLET (FP) PO SCH ×3 (05:26→21:54)
[2017-10-10] MEDS: hydrALAZINE HCL 50 MG TABLET (FP) PO SCH ×3 (05:26→21:54)
[2017-10-10] MEDS ORDERED: SODIUM CHLORIDE 250 ML IV PRN ×2 (08:00→13:08)
[2017-10-10] MEDS: ALBUTEROL SO4 2.5/IPRATROPIUM 0.5 INH SOL 3 ML VIAL.NEB. NEB SCH ×4 (08:01→20:42)
[2017-10-10] MEDS: SEVELAMER CARBONATE 800 MG TAB (FP) PO SCH ×3 (08:01→17:16)
[2017-10-10] MEDS: FERROUS SO4 325 MG TABLET (FP) PO SCH (08:01)
[2017-10-10 08:33] LABS: HEMATOCRIT 25.7 % (35.4-49); HEMOGLOBIN 8.6 GM/dL (11.7-16.9); MCH 29.5 pg (25.7-33.7); MCHC 33.6 g/dl (32.0-35.9); MEAN CELL VOLUME 87.8 fl (80-96); MEAN PLT VOLUME 7.5 fl (7.5-11.1); PLATELET COUNT 245 K/MM3 (134-434); RBC 2.93 M/mm3 (4.00-5.60); RDW 14.7 % (11.9-15.9); WHITE BLOOD COUNT 7.3 K/mm3 (4.0-10.0)
[2017-10-10 09:02] LABS: ANION GAP 8 (8-16); BLOOD UREA NITROGEN 27 mg/dL (7-18); CALCIUM 8.4 mg/dL (8.5-10.1); CHLORIDE 102 mmol/L (98-107); CO2 31 mmol/L (21-32); CREATININE 7.4 mg/dL (0.7-1.3); GLUCOSE,RANDOM 80 mg/dL (74-106); POTASSIUM 4.2 mmol/L (3.5-5.1); SODIUM 141 mmol/L (136-145)
--- NOTE | 2017-10-10 09:22 | PN ---
Progress Note (short form) - Note Progress Note: CC: htn urgency S: pt does not communicate well. appears comfortable. no overnight events. o: Current Medications Generic Name Dose Route Start Last Admin Trade Name Freq PRN Reason Stop Dose Admin Acetaminophen 650 mg 10/08/17 16:47 10/09/17 13:53 Tylenol - PO 650 mg Q6H PRN Administration FEVER Albuterol Sulfate 1 amp 10/08/17 16:47 10/08/17 19:02 Ventolin 0.083% Nebulizer Soln - NEB 1 amp Q4H PRN Administration SHORT OF BREATH/WHEEZING Albuterol/Ipratropium 1 amp 10/08/17 20:00 10/10/17 08:01 Duoneb - NEB [address] Administration Amino Acids 30 ml 10/09/17 10:00 10/09/17 12:23 Prosource No Carb Liquid Pkt NGT [address] Administration Collagenase 1 applic 10/09/17 10:00 10/09/17 14:00 Santyl - TP [address] Administration Diphenhydramine HCl 25 mg 10/08/17 16:48 Benadryl - PO Q6H PRN FOR ITCHING Docusate Sodium 100 mg 10/08/17 16:45 Colace Liquid - NGT Q8H PRN CONSTIPATION Ferrous Sulfate 325 mg 10/09/17 08:00 10/10/17 08:01 Feosol - PO 325 mg DAILY@0800 [address] Administration Heparin Sodium (Porcine) 5,000 unit 10/08/17 22:00 10/10/17 05:26 Heparin - SQ 5,[address] Administration Hydralazine HCl 50 mg 10/08/17 22:00 10/10/17 05:26 Apresoline - PO [address] Administration Hydralazine HCl 10 mg 10/08/17 16:52 Apresoline Injection - IVPUSH Q4H PRN HYPERTENSION Labetalol HCl 200 mg 10/08/17 16:55 10/08/17 18:08 Normodyne - PO 200 mg Q2H PRN Administration HYPERTENSION Labetalol HCl 600 mg 10/08/17 22:00 10/10/17 05:26 Normodyne - PO [address] Administration Lacosamide 150 mg 10/08/17 22:00 10/09/17 21:43 Vimpat - PO [address] Administration Lacosamide 75 mg 10/09/17 14:30 10/09/17 18:11 Vimpat - PO [address] Administration Lisinopril 10 mg 10/10/17 10:00 Prinivil PO DAILY [facility] Multivit/Ca Carb/B Cmplx/FA/Prenat 1 tablet 10/09/17 10:00 10/09/17 12:45 Nephro-Claudia - PO [address] Administration Nifedipine 90 mg 10/08/17 22:00 10/09/17 21:43 Procardia Xl - PO [address] Administration Nystatin 1 applic 10/08/17 18:00 10/10/17 05:24 Mycostatin Cream - TP Not Given Q6HPO LANE Ondansetron HCl 4 mg 10/08/17 16:45 Zofran Injection IVPUSH Q6H PRN NAUSEA AND/OR VOMITING Sevelamer Carbonate 1,600 mg 10/08/17 17:30 10/10/17 08:01 Renvela - PO 1,[address] Administration Vital Signs Period Temp Pulse Resp BP Sys/Mora Pulse Ox Last 24 Hr 98.3 F-99.7 F 80-97 18-20 136-179/79-102 92-100 nad, calm nad no jvd rrr s1 s2 no mrg cta bl nl effort. no jaundice diaphoresis trace le edema bl abd nd pos bs CBC, BMP 10/10/17 07:15 10/10/17 07:15 echo 08/2017: nl lv/rv, no sig valve path a/p: 22 m hx autism, seizures, possible underlying ckd/htn here with ams, respiratory failure/sepsis, anna requiring HD and hypertensive urgency. Cardiac course complicated by mild troponin elevation and prolonged qtc. HTN emergency: -initially with difficult to control BP -BP much improved on current regimen, ranging 140s-160s for the most part -12 decr'd hydral to 50 TID, incr labetalol to 600 TID (to minimize risk of rare but severe hydralazine toxicities). -cont high dose nifedipine for now as doing, monitor for severe constipation -bp stable. cont current meds. ANNA-->ESRD -per renal, biopsy c/w end-stage hypertensive renal dz -on HD abnormal troponins - flat trend, with intermediate range values - secondary to sepsis myocardial injury, vs demand ischemia (severe HTN, with tachycardia to 120s-130s). no clinical findings to support acs here. anemia: -chronic, ? sec to CDK -mgm't per primary team hypoxic respiratory failure s/p intubation, PNA with loculated parapneumonic effusion -s/p VATS/pleurodesis, chest tubes now out - 10/09: episode of desaturation and resp distress. Improved on oxygen and s/p HD.
[2017-10-10] MEDS: NIFEdipine E.R. 90 MG TABLET (FP) PO SCH ×3 (10:24→21:53)
[2017-10-10] MEDS: LISINOPRIL 10 MG TABLET (FP) PO SCH ×2 (10:24→12:10)
[2017-10-10] MEDS: AMINO ACIDS/PROTEIN HYDROLYS 30 ML LIQUID.PKT NGT SCH (10:24)
[2017-10-10] MEDS: COLLAGENASE CLOSTRIDIUM HIST. 30 GRAMS TUBE TP SCH (10:24)
[2017-10-10] MEDS: VITAMIN B COMP W-C 1 EA TABLET PO SCH (10:24)
--- NOTE | 2017-10-10 11:29 | PN ---
Progress Note, Physician History of Present Illness: pulmonary alert,comfortable,-resp distress,-dyspnea. pt s/p HD tolerated well with removal 3liters - Current Medication List Current Medications: Active Medications Acetaminophen (Tylenol -) 650 mg PO Q6H PRN PRN Reason: FEVER Last Admin: 10/09/17 13:53 Dose: 650 mg Albuterol Sulfate (Ventolin 0.083% Nebulizer Soln -) 1 amp NEB Q4H PRN PRN Reason: SHORT OF BREATH/WHEEZING Last Admin: 10/08/17 19:02 Dose: 1 amp Albuterol/Ipratropium (Duoneb -) 1 amp NEB RQID [facility] Last Admin: 10/10/17 11:22 Dose: 1 amp Amino Acids (Prosource No Carb Liquid Pkt) 30 ml NGT DAILY [facility] Last Admin: 10/10/17 10:24 Dose: 30 ml Collagenase (Santyl -) 1 applic TP DAILY [facility] Last Admin: 10/10/17 10:24 Dose: 1 applic Diphenhydramine HCl (Benadryl -) 25 mg PO Q6H PRN PRN Reason: FOR ITCHING Docusate Sodium (Colace Liquid -) 100 mg NGT Q8H PRN PRN Reason: CONSTIPATION Ferrous Sulfate (Feosol -) 325 mg PO DAILY@0800 [facility] Last Admin: 10/10/17 08:01 Dose: 325 mg Heparin Sodium (Porcine) (Heparin -) 5,000 unit SQ TID [facility] Last Admin: 10/10/17 05:26 Dose: 5,000 unit Hydralazine HCl (Apresoline -) 50 mg PO TID [facility] Last Admin: 10/10/17 05:26 Dose: 50 mg Hydralazine HCl (Apresoline Injection -) 10 mg IVPUSH Q4H PRN PRN Reason: HYPERTENSION Labetalol HCl (Normodyne -) 200 mg PO Q2H PRN PRN Reason: HYPERTENSION Last Admin: 10/08/17 18:08 Dose: 200 mg Labetalol HCl (Normodyne -) 600 mg PO TID [facility] Last Admin: 10/10/17 05:26 Dose: 600 mg Lacosamide (Vimpat -) 150 mg PO BID [facility] Last Admin: 10/09/17 21:43 Dose: 150 mg Lacosamide (Vimpat -) 75 mg PO TUTHSA [facility] Last Admin: 10/09/17 18:11 Dose: 75 mg Lisinopril (Prinivil) 10 mg PO DAILY [facility] Last Admin: 10/10/17 10:24 Dose: Not Given Multivit/Ca Carb/B Cmplx/FA/Prenat (Nephro-Claudia -) 1 tablet PO DAILY [facility] Last Admin: 10/10/17 10:24 Dose: Not Given Nifedipine (Procardia Xl -) 90 mg PO BID [facility] Last Admin: 10/10/17 10:24 Dose: Not Given Nystatin (Mycostatin Cream -) 1 applic TP Q6HPO [facility] Last Admin: 10/10/17 05:24 Dose: Not Given Ondansetron HCl (Zofran Injection) 4 mg IVPUSH Q6H PRN PRN Reason: NAUSEA AND/OR VOMITING Sevelamer Carbonate (Renvela -) 1,600 mg PO TIDCM [facility] Last Admin: 10/10/17 08:01 Dose: 1,600 mg - Objective Vital Signs: Vital Signs Temperature 98.4 F 10/10/17 06:10 Pulse Rate 90 10/10/17 09:45 Respiratory Rate 18 10/10/17 09:45 Blood Pressure 172/81 10/10/17 09:45 O2 Sat by Pulse Oximetry (%) 92 L 10/10/17 08:04 Constitutional: Yes: Well Nourished, Calm Eyes: Yes: WNL HENT: Yes: WNL Neck: Yes: WNL Cardiovascular: Yes: Regular Rate and Rhythm, S1, S2 Respiratory: Yes: Diminished (poor inspiratory effort) Gastrointestinal: Yes: Normal Bowel Sounds, Soft Extremities: Yes: WNL Edema: No Labs: CBC, BMP 10/10/17 07:15 10/10/17 07:15 INR, PTT INR 0.93 (0.82-1.09) 09/26/17 05:40 Fibrinogen 558.0 mg/dL (238-498) H 09/17/17 06:45 - ....Imaging Chest X-ray: Report Reviewed, Image Reviewed (increased yogesh pulmonary vascular congestion) Problem List - Problems (1) Respiratory failure Code(s): J96.90 - RESPIRATORY FAILURE, UNSP, UNSP W HYPOXIA OR HYPERCAPNIA (2) Acute renal failure Code(s): N17.9 - ACUTE KIDNEY FAILURE, UNSPECIFIED Qualifiers: Acute renal failure type: unspecified Qualified Code(s): N17.9 - Acute kidney failure, unspecified (3) Anemia Code(s): D64.9 - ANEMIA, UNSPECIFIED (4) Autism Code(s): F84.0 - AUTISTIC DISORDER (5) Hypertensive urgency Code(s): I16.0 - HYPERTENSIVE URGENCY (6) Pneumonia Code(s): J18.9 - PNEUMONIA, UNSPECIFIED ORGANISM Qualifiers: Pneumonia type: due to unspecified organism Laterality: unspecified laterality Lung location: unspecified part of lung Qualified Code(s): J18.9 - Pneumonia, unspecified organism Assessment/Plan A/P Hypertensive Urgency resolved Acute Kidney Injury requiring HD Acute Hypoxic Respiratory Failure Pneumonia Loculated Pleural Effusion s/p L VATS/pneumolysis Severe Sepsis resolved Lactic Acidosis resolved Thrombocytopenia improved Anemia Autism Hypoxemia secondary to fluid overload improving - HD per renal - monitor H/H - monitor urine output, creatinine - BP control - O2 to maintain O2 sat >90% - PO as tolerated - DVT/GI prophylaxis - chest x-ray later today - inhaled bronchodilators DR WALSH
--- NOTE | 2017-10-10 11:47 | PN ---
Progress Note (short form) - Note Progress Note: postop from left arm fistula and permacath with Dr. Kc. Looks well. good thrill. can follow up as outpatient
--- NOTE | 2017-10-10 12:05 | PN ---
Physical Exam: SUBJECTIVE: Patient seen and examined at bedside, receiving neb treatment. Mother present. OBJECTIVE: Vital Signs Period Temp Pulse Resp BP Sys/Mora Pulse Ox Last 24 Hr 98.3 F-99.7 F 80-97 18-20 134-179/79-102 92-96 GENERAL: The patient is awake, alert LUNGS: Breath sounds equal, clear to auscultation bilaterally, no wheezes, no crackles, no accessory muscle use. HEART: Regular rate and rhythm, S1, S2 without murmur, rub or gallop. ABDOMEN: Soft, nontender, nondistended, normoactive bowel sounds, no guarding, no rebound EXTREMITIES: 2+ pulses, warm, well-perfused, no edema. Laboratory Results - last 24 hr 10/10/17 10/10/17 07:15 07:15 WBC 7.3 RBC 2.93 L Hgb 8.6 L Hct 25.7 L MCV 87.8 MCH 29.5 MCHC 33.6 RDW 14.7 Plt Count 245 MPV 7.5 Sodium 141 Potassium 4.2 Chloride 102 Carbon Dioxide 31 Anion Gap 8 BUN 27 H D Creatinine 7.4 H D Random Glucose 80 D Calcium 8.4 L Active Medications Generic Name Dose Route Start Last Admin Trade Name Freq PRN Reason Stop Dose Admin Acetaminophen 650 mg 10/08/17 16:47 10/09/17 13:53 Tylenol - PO 650 mg Q6H PRN Administration FEVER Albuterol Sulfate 1 amp 10/08/17 16:47 10/08/17 19:02 Ventolin 0.083% Nebulizer Soln - NEB 1 amp Q4H PRN Administration SHORT OF BREATH/WHEEZING Albuterol/Ipratropium 1 amp 10/08/17 20:00 10/10/17 11:22 Duoneb - NEB [address] Administration Amino Acids 30 ml 10/09/17 10:00 10/10/17 10:24 Prosource No Carb Liquid Pkt NGT [address] Administration Collagenase 1 applic 10/09/17 10:00 10/10/17 10:24 Santyl - TP [address] Administration Diphenhydramine HCl 25 mg 10/08/17 16:48 Benadryl - PO Q6H PRN FOR ITCHING Docusate Sodium 100 mg 10/08/17 16:45 Colace Liquid - NGT Q8H PRN CONSTIPATION Ferrous Sulfate 325 mg 10/09/17 08:00 10/10/17 08:01 Feosol - PO 325 mg DAILY@0800 [facility] Administration Heparin Sodium (Porcine) 5,000 unit 10/08/17 22:00 10/10/17 05:26 Heparin - SQ 5,[address] Administration Hydralazine HCl 50 mg 10/08/17 22:00 10/10/17 05:26 Apresoline - PO [address] Administration Hydralazine HCl 10 mg 10/08/17 16:52 Apresoline Injection - IVPUSH Q4H PRN HYPERTENSION Labetalol HCl 200 mg 10/08/17 16:55 10/08/17 18:08 Normodyne - PO 200 mg Q2H PRN Administration HYPERTENSION Labetalol HCl 600 mg 10/08/17 22:00 10/10/17 05:26 Normodyne - PO 600 mg TID [facility] Administration Lacosamide 150 mg 10/08/17 22:00 10/09/17 21:43 Vimpat - PO 150 mg BID [facility] Administration Lacosamide 75 mg 10/09/17 14:30 10/09/17 18:11 Vimpat - PO 75 mg TUTHSA [facility] Administration Lisinopril 10 mg 10/10/17 10:00 10/10/17 10:24 Prinivil PO Not Given DAILY [facility] Multivit/Ca Carb/B Cmplx/FA/Prenat 1 tablet 10/09/17 10:00 10/10/17 10:24 Nephro-Cluadia - PO Not Given DAILY [facility] Nifedipine 90 mg 10/08/17 22:00 10/10/17 10:24 Procardia Xl - PO Not Given BID [facility] Nystatin 1 applic 10/08/17 18:00 10/10/17 11:32 Mycostatin Cream - TP Not Given Q6HPO [facility] Ondansetron HCl 4 mg 10/08/17 16:45 Zofran Injection IVPUSH Q6H PRN NAUSEA AND/OR VOMITING Sevelamer Carbonate 1,600 mg 10/08/17 17:30 10/10/17 08:01 Renvela - PO 1,[address] Administration ASSESSMENT/PLAN: 22 year-old male with PMH significant for HTN, autism, and epilepsy. Admitted for pneumonia, ANNA, hypertensive emergency. Hospital course complicated by acute respiratory failure, requiring intubation and emergent HD. Hospital course further complicated by persistent left pleural effusion requiring VATS and pneumolysis on 09/17. Now ESRD on HD (, , F). AV fistula placed 10/08. Hypoxia --secondary to volume overload, got extra HD session today, sats improved to 86% on room air --will need home O2 setup Left pleural effusion with loculation, resolved --s/p thoracentesis 09/02; --s/p pigtail 09/04; --s/p bronchoscopy/left VATS/drainage of effusion/pneumolysis 09/17 --chest tubes pulled 09/20 and 09/21 Severe sepsis secondary to pneumonia --resolved Leukocytosis, resolved --09/28-->10/01 elevated WBC, resolved --cultures were negative --treated with vanco x 2 doses; levaquin x 4 doses ANNA on HD ESRD (, , ) --renal biopsy done 09/26; per renal note dated 10/01 appears kidney disease likely from HTN and is end-stage --AV fistula on 10/08; replacement perma cath 10/08 Severe, refractory hypertension --contine labetolol, nifedipine, hydralazine, Imdur Epilepsy --continue Vimpat DVT prophylaxis: subq heparin Dispo: Patient requires a lightweight wheelchair in order to complete ADLs within the home. Patient will benefit from a lightweight wheelchair due to his inability to self-propel in a standard weight wheelchair. Visit type - Emergency Visit Emergency Visit: Yes ED Registration Date: 08/29/17 Care time: The patient presented to the Emergency Department on the above date and was hospitalized for further evaluation of their emergent condition. - New Patient This patient is new to me today: No - Critical Care Critical Care patient: No
[2017-10-10] MEDS: LACOSAMIDE 50 MG TABLET PO SCH ×2 (12:10→21:54)
--- NOTE | 2017-10-10 13:08 | PN ---
Progress Note, Physician History of Present Illness: Pt seen and examined at bedside. He appears comfortable and tolerated HD. He was desaturating overnight. - Current Medication List Current Medications: Active Medications Acetaminophen (Tylenol -) 650 mg PO Q6H PRN PRN Reason: FEVER Last Admin: 10/09/17 13:53 Dose: 650 mg Albuterol Sulfate (Ventolin 0.083% Nebulizer Soln -) 1 amp NEB Q4H PRN PRN Reason: SHORT OF BREATH/WHEEZING Last Admin: 10/08/17 19:02 Dose: 1 amp Albuterol/Ipratropium (Duoneb -) 1 amp NEB RQID [facility] Last Admin: 10/10/17 11:22 Dose: 1 amp Amino Acids (Prosource No Carb Liquid Pkt) 30 ml NGT DAILY [facility] Last Admin: 10/10/17 10:24 Dose: 30 ml Collagenase (Santyl -) 1 applic TP DAILY [facility] Last Admin: 10/10/17 10:24 Dose: 1 applic Diphenhydramine HCl (Benadryl -) 25 mg PO Q6H PRN PRN Reason: FOR ITCHING Docusate Sodium (Colace Liquid -) 100 mg NGT Q8H PRN PRN Reason: CONSTIPATION Ferrous Sulfate (Feosol -) 325 mg PO DAILY@0800 [facility] Last Admin: 10/10/17 08:01 Dose: 325 mg Heparin Sodium (Porcine) (Heparin -) 5,000 unit SQ TID [facility] Last Admin: 10/10/17 05:26 Dose: 5,000 unit Hydralazine HCl (Apresoline -) 50 mg PO TID [facility] Last Admin: 10/10/17 05:26 Dose: 50 mg Hydralazine HCl (Apresoline Injection -) 10 mg IVPUSH Q4H PRN PRN Reason: HYPERTENSION Labetalol HCl (Normodyne -) 200 mg PO Q2H PRN PRN Reason: HYPERTENSION Last Admin: 10/08/17 18:08 Dose: 200 mg Labetalol HCl (Normodyne -) 600 mg PO TID [facility] Last Admin: 10/10/17 05:26 Dose: 600 mg Lacosamide (Vimpat -) 150 mg PO BID [facility] Last Admin: 10/10/17 12:10 Dose: 150 mg Lacosamide (Vimpat -) 75 mg PO TUTHSA [facility] Last Admin: 10/09/17 18:11 Dose: 75 mg Lisinopril (Prinivil) 10 mg PO DAILY [facility] Last Admin: 10/10/17 12:10 Dose: 10 mg Multivit/Ca Carb/B Cmplx/FA/Prenat (Nephro-Claudia -) 1 tablet PO DAILY [facility] Last Admin: 10/10/17 10:24 Dose: Not Given Nifedipine (Procardia Xl -) 90 mg PO BID [facility] Last Admin: 10/10/17 12:10 Dose: 90 mg Nystatin (Mycostatin Cream -) 1 applic TP Q6HPO [facility] Last Admin: 10/10/17 11:32 Dose: Not Given Ondansetron HCl (Zofran Injection) 4 mg IVPUSH Q6H PRN PRN Reason: NAUSEA AND/OR VOMITING Sevelamer Carbonate (Renvela -) 1,600 mg PO TIDCM [facility] Last Admin: 10/10/17 12:10 Dose: 1,600 mg - Objective Vital Signs: Vital Signs Temperature 98.4 F 10/10/17 06:10 Pulse Rate 95 H 10/10/17 12:15 Respiratory Rate 18 10/10/17 12:15 Blood Pressure 169/94 10/10/17 12:15 O2 Sat by Pulse Oximetry (%) 92 L 10/10/17 08:04 Constitutional: Yes: Calm Eyes: Yes: Conjunctiva Clear HENT: Yes: Atraumatic Neck: Yes: Supple Cardiovascular: Yes: S1, S2 Respiratory: Yes: CTA Bilaterally Gastrointestinal: Yes: Normal Bowel Sounds, Soft Genitourinary: Yes: WNL Musculoskeletal: Yes: WNL Edema: Yes Edema: LLE: 1+, RLE: 1+ Neurological: Yes: Pre-Existing Deficit Labs: CBC, BMP 10/10/17 07:15 10/10/17 07:15 INR, PTT INR 0.93 (0.82-1.09) 09/26/17 05:40 Fibrinogen 558.0 mg/dL (238-498) H 09/17/17 06:45 Problem List - Problems (1) Acute renal failure Code(s): N17.9 - ACUTE KIDNEY FAILURE, UNSPECIFIED Qualifiers: Acute renal failure type: unspecified Qualified Code(s): N17.9 - Acute kidney failure, unspecified (2) Anemia Code(s): D64.9 - ANEMIA, UNSPECIFIED (3) Hyperkalemia Code(s): E87.5 - HYPERKALEMIA (4) Hypertensive urgency Code(s): I16.0 - HYPERTENSIVE URGENCY (5) Sepsis Code(s): A41.9 - SEPSIS, UNSPECIFIED ORGANISM Qualifiers: Sepsis type: sepsis due to unspecified organism Qualified Code(s): A41.9 - Sepsis, unspecified organism (6) Thrombocytopenia Code(s): D69.6 - THROMBOCYTOPENIA, UNSPECIFIED (7) Seizure Code(s): R56.9 - UNSPECIFIED CONVULSIONS Assessment/Plan Current Medications Generic Name Dose Route Start Last Admin Trade Name Freq PRN Reason Stop Dose Admin Acetaminophen 650 mg 10/08/17 16:47 10/09/17 13:53 Tylenol - PO 650 mg Q6H PRN Administration FEVER Albuterol Sulfate 1 amp 10/08/17 16:47 10/08/17 19:02 Ventolin 0.083% Nebulizer Soln - NEB 1 amp Q4H PRN Administration SHORT OF BREATH/WHEEZING Albuterol/Ipratropium 1 amp 10/08/17 20:00 10/10/17 11:22 Duoneb - NEB [address] Administration Amino Acids 30 ml 10/09/17 10:00 10/10/17 10:24 Prosource No Carb Liquid Pkt NGT [address] Administration Collagenase 1 applic 10/09/17 10:00 10/10/17 10:24 Santyl - TP [address] Administration Diphenhydramine HCl 25 mg 10/08/17 16:48 Benadryl - PO Q6H PRN FOR ITCHING Docusate Sodium 100 mg 10/08/17 16:45 Colace Liquid - NGT Q8H PRN CONSTIPATION Ferrous Sulfate 325 mg 10/09/17 08:00 10/10/17 08:01 Feosol - PO 325 mg DAILY@08[address] Administration Heparin Sodium (Porcine) 5,000 unit 10/08/17 22:00 10/10/17 05:26 Heparin - SQ 5,[address] Administration Hydralazine HCl 50 mg 10/08/17 22:00 10/10/17 05:26 Apresoline - PO [address] Administration Hydralazine HCl 10 mg 10/08/17 16:52 Apresoline Injection - IVPUSH Q4H PRN HYPERTENSION Labetalol HCl 200 mg 10/08/17 16:55 10/08/17 18:08 Normodyne - PO 200 mg Q2H PRN Administration HYPERTENSION Labetalol HCl 600 mg 10/08/17 22:00 10/10/17 05:26 Normodyne - PO [address] Administration Lacosamide 150 mg 10/08/17 22:00 10/10/17 12:10 Vimpat - PO [address] Administration Lacosamide 75 mg 10/09/17 14:30 10/09/17 18:11 Vimpat - PO [address] Administration Lisinopril 10 mg 10/10/17 10:00 10/10/17 12:10 Prinivil PO [address] Administration Multivit/Ca Carb/B Cmplx/FA/Prenat 1 tablet 10/09/17 10:00 10/10/17 10:24 Nephro-Claudia - PO Not Given DAILY LANE Nifedipine 90 mg 10/08/17 22:00 10/10/17 12:10 Procardia Xl - PO [address] Administration Nystatin 1 applic 10/08/17 18:00 10/10/17 11:32 Mycostatin Cream - TP Not Given Q6HPO LANE Ondansetron HCl 4 mg 10/08/17 16:45 Zofran Injection IVPUSH Q6H PRN NAUSEA AND/OR VOMITING Sevelamer Carbonate 1,600 mg 10/08/17 17:30 10/10/17 12:10 Renvela - PO 1,[address] Administration Impression 1. ANNA 2. HTN urgency/emergency 3. hyperkalemia 4. hyponatremia 5. autism 6. hx of seizure 7. anemia 8. CKD 9. lactic acidosis improving 10. thrombocytopenia 11. hyperkalemia 12. pleural effusion 13. acute resp failure requiring intubation 14. ESRD Plan - pt tolerated HD today - will arrange for HD again tomorrow with volume removal - send HD papers to [facility] for [facility] care - discussed outpt HD with mother at length - pulse ox improved - fistula with thrill and bruit - monitor pulse ox Dr Velasquez
--- NOTE | 2017-10-10 16:29 | DS ---
Physical Exam: SUBJECTIVE: Patient seen and examined OBJECTIVE: Vital Signs Period Temp Pulse Resp BP Sys/Mora Pulse Ox Last 24 Hr 98.0 F-100.2 F 80-98 18-20 134-179/79-108 92-96 PHYSICAL EXAM GENERAL: The patient is awake, alert, and fully oriented, in no acute distress. HEAD: Normal with no signs of trauma. EYES: PERRL, extraocular movements intact, sclera anicteric, conjunctiva clear. ENT: Ears normal, nares patent, oropharynx clear without exudates, moist mucous membranes. NECK: Trachea midline, full range of motion, supple. LUNGS: Breath sounds equal, clear to auscultation bilaterally, no wheezes, no crackles, no accessory muscle use. HEART: Regular rate and rhythm, S1, S2 without murmur, rub or gallop. ABDOMEN: Soft, nontender, nondistended, normoactive bowel sounds, no guarding, no rebound, no hepatosplenomegaly, no masses. EXTREMITIES: 2+ pulses, warm, well-perfused, no edema. NEUROLOGICAL: Cranial nerves II through XII grossly intact. Normal speech, gait not observed. PSYCH: Normal mood, normal affect. SKIN: Warm, dry, normal turgor, no rashes or lesions noted. LABS Laboratory Results - last 24 hr 10/10/17 10/10/17 07:15 07:15 WBC 7.3 RBC 2.93 L Hgb 8.6 L Hct 25.7 L MCV 87.8 MCH 29.5 MCHC 33.6 RDW 14.7 Plt Count 245 MPV 7.5 Sodium 141 Potassium 4.2 Chloride 102 Carbon Dioxide 31 Anion Gap 8 BUN 27 H D Creatinine 7.4 H D Random Glucose 80 D Calcium 8.4 L HOSPITAL COURSE: Date of Admission:08/29/17 Date of Discharge: 10/10/17 22 year-old male with PMH significant for HTN, autism, and epilepsy. Admitted for pneumonia, ANNA, hypertensive emergency. Hospital course complicated by acute respiratory failure,requiring intubation and emergent HD. Hospital course further complicated by persistent left pleural effusion requiring VATS and pneumolysis on 09/17. Now ESRD on HD (T, Th, F). AV fistula placed 10/08. Hypoxia, improved --CXR today shows resolving congestion after back to back HD sessions --sats improved to 86% on room air --will need home O2 setup Left pleural effusion with loculation, resolved --s/p thoracentesis 09/02; --s/p pigtail 09/04; --s/p bronchoscopy/left VATS/drainage of effusion/pneumolysis 09/17 --chest tubes pulled 09/20 and 09/21 Severe sepsis secondary to pneumonia --resolved Leukocytosis, resolved --09/28-->10/01 elevated WBC, resolved --cultures were negative --treated with vanco x 2 doses; levaquin x 4 doses ANNA on HD ESRD --renal biopsy done 09/26; per renal note dated 10/01 appears kidney disease likely from HTN and is end-stage --AV fistula on 10/08; replacement perma cath 10/08 Severe, refractory hypertension --contine labetolol, nifedipine, hydralazine, Imdur Epilepsy --continue Vimpat DVT prophylaxis: subq heparin Dispo: Patient requires a lightweight wheelchair in order to complete ADLs within the home. Patient will benefit from a lightweight wheelchair due to his inability to self-propel in a standard weight wheelchair. Will get outpatient dialysis at [facility]. Mother is in agreement with discharge plan. Minutes to complete discharge: 60 Discharge Summary Reason For Visit: ACUTE RENAL FAILURE,PNEUMONIA,SEPSIS Current Active Problems Acute renal failure (Acute) Anemia (Acute) Autism (Acute) Hyperkalemia (Acute) Hypertensive urgency (Acute) Pneumonia (Acute) Respiratory failure (Acute) Seizures (Acute) Sepsis (Acute) Thrombocytopenia (Acute) Condition: Improved - Instructions Referrals: Rani Velasquez MD [Staff Physician] - Disposition: HOME - Home Medications Comprehensive Discharge Medication List: Ambulatory Orders Ferrous Sulfate [Feosol] 325 mg PO DAILY@0800 #30 ud 10/09/17 Isosorbide Mononitrate [Imdur -] 30 mg PO BID #60 tab.sr.24h 10/09/17 Labetalol HCl [Normodyne -] 600 mg PO TID #90 tablet 10/09/17 Lacosamide [Vimpat -] 75 mg PO MOWEFR #30 tab MDD 1 10/09/17 Lacosamide [Vimpat -] 150 mg PO BID #60 tab MDD 2 10/09/17 Nifedipine ER [Procardia XL -] 90 mg PO BID #60 tab.er.24 10/09/17 Sevelamer Carbonate [Renvela -] 1,600 mg PO TIDCM #90 tab 10/09/17 Vitamin B Comp W-C [Nephro-Claudia -] 1 tablet PO DAILY #30 tablet 10/09/17 hydrALAZINE HCL [Apresoline -] 50 mg PO TID #90 tablet 10/09/17 This patient is new to me today: No Emergency Visit: Yes ED Registration Date: 08/29/17 Care time: The patient presented to the Emergency Department on the above date and was hospitalized for further evaluation of their emergent condition. Critical Care patient: No - Discharge Referral Referred to [facility] No
[2017-10-11] MEDS: NYSTATIN 100,000 UNIT/GM TOPICAL CREAM 15 GM TUBE TP SCH ×2 (05:47→16:20)
[2017-10-11] MEDS: hydrALAZINE HCL 50 MG TABLET (FP) PO SCH ×2 (05:48→16:20)
[2017-10-11] MEDS: HEPARIN NA (PORCINE) 5,000 UNITS/ML 1ML VIAL SQ SCH ×2 (05:48→16:20)
[2017-10-11] MEDS: LABETALOL HCL 200 MG TABLET (FP) PO SCH ×2 (05:48→16:21)
[2017-10-11] MEDS: ALBUTEROL SO4 2.5/IPRATROPIUM 0.5 INH SOL 3 ML VIAL.NEB. NEB SCH ×3 (08:06→16:25)
[2017-10-11] MEDS: SEVELAMER CARBONATE 800 MG TAB (FP) PO SCH ×2 (08:13→12:20)
[2017-10-11] MEDS: FERROUS SO4 325 MG TABLET (FP) PO SCH (08:13)
[2017-10-11] MEDS: COLLAGENASE CLOSTRIDIUM HIST. 30 GRAMS TUBE TP SCH (10:20)
--- NOTE | 2017-10-11 10:24 | PN ---
Physical Exam: SUBJECTIVE: Patient seen and examined OBJECTIVE: Vital Signs Period Temp Pulse Resp BP Sys/Mora Pulse Ox Last 24 Hr 98.5 F-100.2 F 80-98 18-18 134-169/62-102 95-95 GENERAL: The patient is awake, alert, and fully oriented, in no acute distress. HEAD: Normal with no signs of trauma. EYES: PERRL, extraocular movements intact, sclera anicteric, conjunctiva clear. No ptosis. ENT: Ears normal, nares patent, oropharynx clear without exudates, moist mucous membranes. NECK: Trachea midline, full range of motion, supple. LUNGS: Breath sounds equal, clear to auscultation bilaterally, no wheezes, no crackles, no accessory muscle use. HEART: Regular rate and rhythm, S1, S2 without murmur, rub or gallop. ABDOMEN: Soft, nontender, nondistended, normoactive bowel sounds, no guarding, no rebound, no hepatosplenomegaly, no masses. EXTREMITIES: 2+ pulses, warm, well-perfused, no edema. NEUROLOGICAL: Cranial nerves II through XII grossly intact. Normal speech, gait not observed. PSYCH: Normal mood, normal affect. SKIN: Warm, dry, normal turgor, no rashes or lesions noted Active Medications Generic Name Dose Route Start Last Admin Trade Name Freq PRN Reason Stop Dose Admin Acetaminophen 650 mg 10/08/17 16:47 10/09/17 13:53 Tylenol - PO 650 mg Q6H PRN Administration FEVER Albuterol Sulfate 1 amp 10/08/17 16:47 10/08/17 19:02 Ventolin 0.083% Nebulizer Soln - NEB 1 amp Q4H PRN Administration SHORT OF BREATH/WHEEZING Albuterol/Ipratropium 1 amp 10/08/17 20:00 10/11/17 08:06 Duoneb - NEB [address] Administration Amino Acids 30 ml 10/09/17 10:00 10/10/17 10:24 Prosource No Carb Liquid Pkt NGT [address] Administration Collagenase 1 applic 10/09/17 10:00 10/10/17 10:24 Santyl - TP [address] Administration Diphenhydramine HCl 25 mg 10/08/17 16:48 Benadryl - PO Q6H PRN FOR ITCHING Docusate Sodium 100 mg 10/08/17 16:45 Colace Liquid - NGT Q8H PRN CONSTIPATION Epoetin Mir 8,000 unit 10/11/17 13:08 Procrit - IVPUSH 10/11/17 13:09 ONCE ONE Ferrous Sulfate 325 mg 10/09/17 08:00 10/11/17 08:13 Feosol - PO 325 mg DAILY@[address] Administration Heparin Sodium (Porcine) 5,000 unit 10/08/17 22:00 10/11/17 05:48 Heparin - SQ 5,[address] Administration Hydralazine HCl 50 mg 10/08/17 22:00 10/11/17 05:48 Apresoline - PO [address] Administration Hydralazine HCl 10 mg 10/08/17 16:52 Apresoline Injection - IVPUSH Q4H PRN HYPERTENSION Sodium Chloride 250 mls @ 3,000 mls/hr 10/10/17 13:08 Normal Saline - IV 10/11/17 13:08 PRN PRN Hypotension during Dialysis Labetalol HCl 200 mg 10/08/17 16:55 10/08/17 18:08 Normodyne - PO 200 mg Q2H PRN Administration HYPERTENSION Labetalol HCl 600 mg 10/08/17 22:00 10/11/17 05:48 Normodyne - PO [address] Administration Lacosamide 150 mg 10/08/17 22:00 10/10/17 21:54 Vimpat - PO [address] Administration Lacosamide 75 mg 10/09/17 14:30 10/09/17 18:11 Vimpat - PO [address] Administration Lisinopril 10 mg 10/10/17 10:00 10/10/17 12:10 Prinivil PO 10 mg DAILY [facility] Administration Multivit/Ca Carb/B Cmplx/FA/Prenat 1 tablet 10/09/17 10:00 10/10/17 10:24 Nephro-Claudia - PO Not Given DAILY [facility] Nifedipine 90 mg 10/08/17 22:00 10/10/17 21:53 Procardia Xl - PO [address] Administration Nystatin 1 applic 10/08/17 18:00 10/11/17 05:47 Mycostatin Cream - TP [address] Administration Ondansetron HCl 4 mg 10/08/17 16:45 Zofran Injection IVPUSH Q6H PRN NAUSEA AND/OR VOMITING Sevelamer Carbonate 1,600 mg 10/08/17 17:30 10/11/17 08:13 Renvela - PO 1,[address] Administration ASSESSMENT/PLAN:
[2017-10-11] MEDS ORDERED: PT OWN MED DRAWER 7, Y5N ONE (10:35)
--- NOTE | 2017-10-11 10:47 | PN ---
Progress Note (short form) - Note Progress Note: CC: htn urgency S: pt does not communicate well. appears comfortable. no overnight events. o: Current Medications Generic Name Dose Route Start Last Admin Trade Name Freq PRN Reason Stop Dose Admin Acetaminophen 650 mg 10/08/17 16:47 10/09/17 13:53 Tylenol - PO 650 mg Q6H PRN Administration FEVER Albuterol Sulfate 1 amp 10/08/17 16:47 10/08/17 19:02 Ventolin 0.083% Nebulizer Soln - NEB 1 amp Q4H PRN Administration SHORT OF BREATH/WHEEZING Albuterol/Ipratropium 1 amp 10/08/17 20:00 10/11/17 08:06 Duoneb - NEB [address] Administration Amino Acids 30 ml 10/09/17 10:00 10/10/17 10:24 Prosource No Carb Liquid Pkt NGT [address] Administration Collagenase 1 applic 10/09/17 10:00 10/10/17 10:24 Santyl - TP [address] Administration Diphenhydramine HCl 25 mg 10/08/17 16:48 Benadryl - PO Q6H PRN FOR ITCHING Docusate Sodium 100 mg 10/08/17 16:45 Colace Liquid - NGT Q8H PRN CONSTIPATION Epoetin Mir 8,000 unit 10/11/17 13:08 Procrit - IVPUSH 10/11/17 13:09 ONCE ONE Ferrous Sulfate 325 mg 10/09/17 08:00 10/11/17 08:13 Feosol - PO 325 mg DAILY@[address] Administration Heparin Sodium (Porcine) 5,000 unit 10/08/17 22:00 10/11/17 05:48 Heparin - SQ 5,[address] Administration Hydralazine HCl 50 mg 10/08/17 22:00 10/11/17 05:48 Apresoline - PO [address] Administration Hydralazine HCl 10 mg 10/08/17 16:52 Apresoline Injection - IVPUSH Q4H PRN HYPERTENSION Sodium Chloride 250 mls @ 3,000 mls/hr 10/10/17 13:08 Normal Saline - IV 10/11/17 13:08 PRN PRN Hypotension during Dialysis Labetalol HCl 200 mg 10/08/17 16:55 10/08/17 18:08 Normodyne - PO 200 mg Q2H PRN Administration HYPERTENSION Labetalol HCl 600 mg 10/08/17 22:00 10/11/17 05:48 Normodyne - PO [address] Administration Lacosamide 150 mg 10/08/17 22:00 10/10/17 21:54 Vimpat - PO [address] Administration Lacosamide 75 mg 10/09/17 14:30 10/09/17 18:11 Vimpat - PO [address] Administration Lisinopril 10 mg 10/10/17 10:00 10/10/17 12:10 Prinivil PO [address] Administration Multivit/Ca Carb/B Cmplx/FA/Prenat 1 tablet 10/09/17 10:00 10/10/17 10:24 Nephro-Claudia - PO Not Given DAILY LANE Nifedipine 90 mg 10/08/17 22:00 10/10/17 21:53 Procardia Xl - PO [address] Administration Nystatin 1 applic 10/08/17 18:00 10/11/17 05:47 Mycostatin Cream - TP [address] Administration Ondansetron HCl 4 mg 10/08/17 16:45 Zofran Injection IVPUSH Q6H PRN NAUSEA AND/OR VOMITING Sevelamer Carbonate 1,600 mg 10/08/17 17:30 10/11/17 08:13 Renvela - PO 1,[address] Administration Vital Signs Period Temp Pulse Resp BP Sys/Mora Pulse Ox Last 24 Hr 98.5 F-100.2 F 80-98 134-169/62-102 95-95 nad, calm nad no jvd rrr s1 s2 no mrg cta bl nl effort. no jaundice diaphoresis trace le edema bl abd nd pos bs CBC, BMP 10/10/17 07:15 10/10/17 07:15 echo 08/2017: nl lv/rv, no sig valve path a/p: 22 m hx autism, seizures, possible underlying ckd/htn here with ams, respiratory failure/sepsis, anna requiring HD and hypertensive urgency. Cardiac course complicated by mild troponin elevation and prolonged qtc. HTN emergency: -initially with difficult to control BP -BP much improved on current regimen, ranging 140s-160s for the most part -10/06 decr'd hydral to 50 TID, incr labetalol to 600 TID (to minimize risk of rare but severe hydralazine toxicities). -cont high dose nifedipine for now as doing, monitor for severe constipation -bp stable. cont current meds. ANNA-->ESRD -per renal, biopsy c/w end-stage hypertensive renal dz -on HD abnormal troponins - flat trend, with intermediate range values - secondary to sepsis myocardial injury, vs demand ischemia (severe HTN, with tachycardia to 120s-130s). no clinical findings to support acs here. anemia: -chronic, ? sec to CDK -mgm't per primary team hypoxic respiratory failure s/p intubation, PNA with loculated parapneumonic effusion -s/p VATS/pleurodesis, chest tubes now out cardiac [facility] stable
[2017-10-11 11:35] LABS: HEMATOCRIT 27.2 % (35.4-49); HEMOGLOBIN 9.1 GM/dL (11.7-16.9); MCH 29.6 pg (25.7-33.7); MCHC 33.6 g/dl (32.0-35.9); MEAN CELL VOLUME 88.2 fl (80-96); MEAN PLT VOLUME 7.4 fl (7.5-11.1); PLATELET COUNT 234 K/MM3 (134-434); RBC 3.08 M/mm3 (4.00-5.60); RDW 14.8 % (11.9-15.9); WHITE BLOOD COUNT 8.4 K/mm3 (4.0-10.0)
[2017-10-11 11:55] LABS: ALBUMIN 2.9 g/dl (3.4-5.0); ANION GAP 9 (8-16); BLOOD UREA NITROGEN 18 mg/dL (7-18); CALCIUM 8.7 mg/dL (8.5-10.1); CHLORIDE 101 mmol/L (98-107); CO2 31 mmol/L (21-32); CREATININE 6.3 mg/dL (0.7-1.3); GLUCOSE,RANDOM 84 mg/dL (74-106); POTASSIUM 4.2 mmol/L (3.5-5.1); SGOT/AST 26 U/L (15-37); SGPT/ALT 36 U/L (12-78); SODIUM 141 mmol/L (136-145)
[2017-10-11 12:00] LABS: ALK PHOS 132 U/L (45-117); BILIRUBIN,TOTAL 0.4 mg/dL (0.2-1.0); PHOSPHOROUS 3.4 mg/dL (2.5-4.9); TOT PROT 6.6 g/dl (6.4-8.2)
--- NOTE | 2017-10-11 12:17 | PATH ---
Surgical Pathology Report Patient Name: PATRICK FERGUSON Med. Rec. #: [id number] /Age/Gender: 1995 (Age: 22) / M Account: [id number] Location: 4 PEDS/ADOL Taken: 09/27/2017 Received: 09/27/2017 Reported: 10/11/2017 Physicians: Tristin Vallejo M.D. Specimen(s) Received KIDNEY BIOPSY SENDOUT Clinical History acute renal failure Intraoperative Consult Diagnosis Kidney biopsy, intraoperative: glomeruli present. Aby Guzmán M.D., 09/27/17 Final Diagnosis KIDNEY, BIOPSY: 1. FOCAL SEGMENTAL AND DIFFUSE GLOBAL SCLEROSING GLOMERULOPATHY, SEVERE (HYPERTENSION-ASSOCIATED/CLINICAL). See comment. 2. TUBULAR ATROPHY AND INTERSTITIAL FIROSIS, SEVERE. 3. ARTERIOSCLEROSIS, MODERATE TO SEVERE. Comment: The immunofluorescence microscopy shows no evidence of renal disease of the immune complex type. Although interpretation is somewhat limited by the small sample size, the findings are consistent with approach to end-stage kidney diseases. The severe microvascular changes correlate with the history of hypertension. The differential diagnosis includes primary genetic and secondary forms of FSGS: Clinical correlation is necessary. Electron microscopy is pending and may be contributory. Case sent for consultation to Dr. Maddy Haq from [place], [place] ([id number]), the diagnosis above reflects his opinion. See complete report ([id number]) from [place], [place] for additional details. Electronically Signed Elaine Guy M.D. Gross Description Received in saline labeled "right renal biopsy," are 3 arriaga, cylindrical portions of soft tissue ranging from 1.3-1.7 cm in length and averaging 0.1 cm in diameter. The specimens are divided, placed into 10% buffered formalin, Pablo fixative and glutaraldehyde. The specimen is sent to [facility] for further studies. /09/27/201709/27/2017
[2017-10-11] MEDS ORDERED: EPOETIN ALFA 10,000 UNIT/1 ML VIAL IVPUSH ONE (13:00)
--- NOTE | 2017-10-11 13:05 | PN ---
Progress Note (short form) - Note Progress Note: Resting in NAD on RA. On HD. No documented acute events overnight. CXR: Improving bilateral congestive changes Intake & Output 10/08/17 10/09/17 10/10/17 10/11/17 23:59 23:59 23:59 23:59 Intake Total 180 150 450 80 Output Total 5 Balance 175 150 450 80 Weight 171 lb 168 lb 6 oz 164 lb 8 oz Last Vital Signs Temp Pulse Resp BP Pulse Ox 98.8 F 90 18 166/96 94 L 10/11/17 10:55 10/11/17 13:00 10/11/17 13:00 10/11/17 13:00 10/11/17 11:58 Active Medications Acetaminophen (Tylenol -) 650 mg PO Q6H PRN PRN Reason: FEVER Last Admin: 10/09/17 13:53 Dose: 650 mg Albuterol Sulfate (Ventolin 0.083% Nebulizer Soln -) 1 amp NEB Q4H PRN PRN Reason: SHORT OF BREATH/WHEEZING Last Admin: 10/08/17 19:02 Dose: 1 amp Albuterol/Ipratropium (Duoneb -) 1 amp NEB RQID [facility] Last Admin: 10/11/17 11:58 Dose: 1 amp Amino Acids (Prosource No Carb Liquid Pkt) 30 ml NGT DAILY [facility] Last Admin: 10/10/17 10:24 Dose: 30 ml Collagenase (Santyl -) 1 applic TP DAILY [facility] Last Admin: 10/10/17 10:24 Dose: 1 applic Diphenhydramine HCl (Benadryl -) 25 mg PO Q6H PRN PRN Reason: FOR ITCHING Docusate Sodium (Colace Liquid -) 100 mg NGT Q8H PRN PRN Reason: CONSTIPATION Ferrous Sulfate (Feosol -) 325 mg PO DAILY@0800 [facility] Last Admin: 10/11/17 08:13 Dose: 325 mg Heparin Sodium (Porcine) (Heparin -) 5,000 unit SQ TID [facility] Last Admin: 10/11/17 05:48 Dose: 5,000 unit Hydralazine HCl (Apresoline -) 50 mg PO TID [facility] Last Admin: 10/11/17 05:48 Dose: 50 mg Hydralazine HCl (Apresoline Injection -) 10 mg IVPUSH Q4H PRN PRN Reason: HYPERTENSION Sodium Chloride (Normal Saline -) 250 mls @ 3,000 mls/hr IV PRN PRN PRN Reason: Hypotension during Dialysis Stop: 10/11/17 13:08 Labetalol HCl (Normodyne -) 200 mg PO Q2H PRN PRN Reason: HYPERTENSION Last Admin: 10/08/17 18:08 Dose: 200 mg Labetalol HCl (Normodyne -) 600 mg PO TID [facility] Last Admin: 10/11/17 05:48 Dose: 600 mg Lacosamide (Vimpat -) 150 mg PO BID [facility] Last Admin: 10/10/17 21:54 Dose: 150 mg Lacosamide (Vimpat -) 75 mg PO TUTHSA [facility] Last Admin: 10/09/17 18:11 Dose: 75 mg Lisinopril (Prinivil) 10 mg PO DAILY [facility] Last Admin: 10/10/17 12:10 Dose: 10 mg Multivit/Ca Carb/B Cmplx/FA/Prenat (Nephro-Claudia -) 1 tablet PO DAILY [facility] Last Admin: 10/10/17 10:24 Dose: Not Given Nifedipine (Procardia Xl -) 90 mg PO BID [facility] Last Admin: 10/10/17 21:53 Dose: 90 mg Nystatin (Mycostatin Cream -) 1 applic TP Q6HPO [facility] Last Admin: 10/11/17 05:47 Dose: 1 applic Ondansetron HCl (Zofran Injection) 4 mg IVPUSH Q6H PRN PRN Reason: NAUSEA AND/OR VOMITING Sevelamer Carbonate (Renvela -) 1,600 mg PO TIDCM [facility] Last Admin: 10/11/17 08:13 Dose: 1,600 mg GENERAL: NAD HEENT: (-) Pallor LUNGS: Few basilar rhonchi HEART: S1S2, regular rhythm, no murmurs ABDOMEN: soft, NT, ND EXTREMITIES: 2+ pulses, warm, well-perfused NEUROLOGICAL: non-focal Laboratory Results - last 24 hr 10/11/17 10/11/17 10/11/17 11:00 11:00 11:00 WBC 8.4 RBC 3.08 L Hgb 9.1 L Hct 27.2 L MCV 88.2 MCH 29.6 MCHC 33.6 RDW 14.8 Plt Count 234 MPV 7.4 L Sodium 141 Potassium 4.2 Chloride 101 Carbon Dioxide 31 Anion Gap 9 BUN 18 D Creatinine 6.3 H Creat Clearance w eGFR 11.07 Random Glucose 84 Calcium 8.7 Phosphorus 3.4 D Total Bilirubin 0.4 AST 26 D ALT 36 D Alkaline Phosphatase 132 H Total Protein 6.6 Albumin 2.9 L Blood Type O POSITIVE Antibody Screen Negative ASSESSMENT AND PLAN: Hypertensive Urgency Acute Kidney Injury requiring HD Acute Hypoxic Respiratory Failure Pneumonia Loculated Pleural Effusion Hyponatremia Severe Sepsis Lactic Acidosis Thrombocytopenia improved Anemia Autism - HD per renal - Current meds - D/C planning Dr Isidro
--- NOTE | 2017-10-11 15:55 | PN ---
Progress Note, Physician History of Present Illness: Pt seen and examined at bedside. He is awake and appears comfortable. - Current Medication List Current Medications: Active Medications Acetaminophen (Tylenol -) 650 mg PO Q6H PRN PRN Reason: FEVER Last Admin: 10/09/17 13:53 Dose: 650 mg Albuterol Sulfate (Ventolin 0.083% Nebulizer Soln -) 1 amp NEB Q4H PRN PRN Reason: SHORT OF BREATH/WHEEZING Last Admin: 10/08/17 19:02 Dose: 1 amp Albuterol/Ipratropium (Duoneb -) 1 amp NEB RQID [facility] Last Admin: 10/11/17 11:58 Dose: 1 amp Amino Acids (Prosource No Carb Liquid Pkt) 30 ml NGT DAILY [facility] Last Admin: 10/10/17 10:24 Dose: 30 ml Collagenase (Santyl -) 1 applic TP DAILY [facility] Last Admin: 10/10/17 10:24 Dose: 1 applic Diphenhydramine HCl (Benadryl -) 25 mg PO Q6H PRN PRN Reason: FOR ITCHING Docusate Sodium (Colace Liquid -) 100 mg NGT Q8H PRN PRN Reason: CONSTIPATION Ferrous Sulfate (Feosol -) 325 mg PO DAILY@0800 [facility] Last Admin: 10/11/17 08:13 Dose: 325 mg Heparin Sodium (Porcine) (Heparin -) 5,000 unit SQ TID [facility] Last Admin: 10/11/17 05:48 Dose: 5,000 unit Hydralazine HCl (Apresoline -) 50 mg PO TID [facility] Last Admin: 10/11/17 05:48 Dose: 50 mg Hydralazine HCl (Apresoline Injection -) 10 mg IVPUSH Q4H PRN PRN Reason: HYPERTENSION Sodium Chloride (Normal Saline -) 250 mls @ 3,000 mls/hr IV PRN PRN PRN Reason: Hypotension during Dialysis Stop: 10/11/17 13:08 Labetalol HCl (Normodyne -) 200 mg PO Q2H PRN PRN Reason: HYPERTENSION Last Admin: 10/08/17 18:08 Dose: 200 mg Labetalol HCl (Normodyne -) 600 mg PO TID [facility] Last Admin: 10/11/17 05:48 Dose: 600 mg Lacosamide (Vimpat -) 150 mg PO BID [facility] Last Admin: 10/10/17 21:54 Dose: 150 mg Lacosamide (Vimpat -) 75 mg PO TUTHSA [facility] Last Admin: 10/09/17 18:11 Dose: 75 mg Lisinopril (Prinivil) 10 mg PO DAILY [facility] Last Admin: 10/10/17 12:10 Dose: 10 mg Multivit/Ca Carb/B Cmplx/FA/Prenat (Nephro-Claudia -) 1 tablet PO DAILY [facility] Last Admin: 10/10/17 10:24 Dose: Not Given Nifedipine (Procardia Xl -) 90 mg PO BID [facility] Last Admin: 10/10/17 21:53 Dose: 90 mg Nystatin (Mycostatin Cream -) 1 applic TP Q6HPO [facility] Last Admin: 10/11/17 05:47 Dose: 1 applic Ondansetron HCl (Zofran Injection) 4 mg IVPUSH Q6H PRN PRN Reason: NAUSEA AND/OR VOMITING Sevelamer Carbonate (Renvela -) 1,600 mg PO TIDCM [facility] Last Admin: 10/11/17 08:13 Dose: 1,600 mg - Objective Vital Signs: Vital Signs Temperature 98.8 F 10/11/17 10:55 Pulse Rate 88 10/11/17 14:35 Respiratory Rate 18 10/11/17 14:35 Blood Pressure 169/78 10/11/17 14:35 O2 Sat by Pulse Oximetry (%) 94 L 10/11/17 11:58 Constitutional: Yes: Calm Eyes: Yes: Conjunctiva Clear HENT: Yes: Atraumatic Cardiovascular: Yes: S1, S2 Respiratory: Yes: CTA Bilaterally. No: On Nasal O2, Rhonchi Gastrointestinal: Yes: Soft Genitourinary: Yes: Incontinence Musculoskeletal: Yes: WNL Edema: No Integumentary: Yes: WNL Neurological: Yes: Pre-Existing Deficit Labs: CBC, BMP 10/11/17 11:00 10/11/17 11:00 INR, PTT INR 0.93 (0.82-1.09) 09/26/17 05:40 Fibrinogen 558.0 mg/dL (238-498) H 09/17/17 06:45 Problem List - Problems (1) Acute renal failure Code(s): N17.9 - ACUTE KIDNEY FAILURE, UNSPECIFIED Qualifiers: Acute renal failure type: unspecified Qualified Code(s): N17.9 - Acute kidney failure, unspecified (2) Anemia Code(s): D64.9 - ANEMIA, UNSPECIFIED (3) Hyperkalemia Code(s): E87.5 - HYPERKALEMIA (4) Hypertensive urgency Code(s): I16.0 - HYPERTENSIVE URGENCY (5) Sepsis Code(s): A41.9 - SEPSIS, UNSPECIFIED ORGANISM Qualifiers: Sepsis type: sepsis due to unspecified organism Qualified Code(s): A41.9 - Sepsis, unspecified organism (6) Thrombocytopenia Code(s): D69.6 - THROMBOCYTOPENIA, UNSPECIFIED (7) Seizure Code(s): R56.9 - UNSPECIFIED CONVULSIONS Assessment/Plan Current Medications Generic Name Dose Route Start Last Admin Trade Name Freq PRN Reason Stop Dose Admin Acetaminophen 650 mg 10/08/17 16:47 10/09/17 13:53 Tylenol - PO 650 mg Q6H PRN Administration FEVER Albuterol Sulfate 1 amp 10/08/17 16:47 10/08/17 19:02 Ventolin 0.083% Nebulizer Soln - NEB 1 amp Q4H PRN Administration SHORT OF BREATH/WHEEZING Albuterol/Ipratropium 1 amp 10/08/17 20:00 10/11/17 11:58 Duoneb - NEB [address] Administration Amino Acids 30 ml 10/09/17 10:00 10/10/17 10:24 Prosource No Carb Liquid Pkt NGT [address] Administration Collagenase 1 applic 10/09/17 10:00 10/10/17 10:24 Santyl - TP [address] Administration Diphenhydramine HCl 25 mg 10/08/17 16:48 Benadryl - PO Q6H PRN FOR ITCHING Docusate Sodium 100 mg 10/08/17 16:45 Colace Liquid - NGT Q8H PRN CONSTIPATION Ferrous Sulfate 325 mg 10/09/17 08:00 10/11/17 08:13 Feosol - PO 325 mg DAILY@0800 [address] Administration Heparin Sodium (Porcine) 5,000 unit 10/08/17 22:00 10/11/17 05:48 Heparin - SQ 5,[address] Administration Hydralazine HCl 50 mg 10/08/17 22:00 10/11/17 05:48 Apresoline - PO [address] Administration Hydralazine HCl 10 mg 10/08/17 16:52 Apresoline Injection - IVPUSH Q4H PRN HYPERTENSION Sodium Chloride 250 mls @ 3,000 mls/hr 10/10/17 13:08 Normal Saline - IV 10/11/17 13:08 PRN PRN Hypotension during Dialysis Labetalol HCl 200 mg 10/08/17 16:55 10/08/17 18:08 Normodyne - PO 200 mg Q2H PRN Administration HYPERTENSION Labetalol HCl 600 mg 10/08/17 22:00 10/11/17 05:48 Normodyne - PO [address] Administration Lacosamide 150 mg 10/08/17 22:00 10/10/17 21:54 Vimpat - PO [address] Administration Lacosamide 75 mg 10/09/17 14:30 10/09/17 18:11 Vimpat - PO [address] Administration Lisinopril 10 mg 10/10/17 10:00 10/10/17 12:10 Prinivil PO [address] Administration Multivit/Ca Carb/B Cmplx/FA/Prenat 1 tablet 10/09/17 10:00 10/10/17 10:24 Nephro-Claudia - PO Not Given DAILY LANE Nifedipine 90 mg 10/08/17 22:00 10/10/17 21:53 Procardia Xl - PO [address] Administration Nystatin 1 applic 10/08/17 18:00 10/11/17 05:47 Mycostatin Cream - TP [address] Administration Ondansetron HCl 4 mg 10/08/17 16:45 Zofran Injection IVPUSH Q6H PRN NAUSEA AND/OR VOMITING Sevelamer Carbonate 1,600 mg 10/08/17 17:30 10/11/17 08:13 Renvela - PO 1,[address] Administration Impression 1. ANNA 2. HTN urgency/emergency 3. hyperkalemia 4. hyponatremia 5. autism 6. hx of seizure 7. anemia 8. CKD 9. lactic acidosis improving 10. thrombocytopenia 11. hyperkalemia 12. pleural effusion 13. acute resp failure requiring intubation 14. ESRD Plan - HD today for volume - pt appears comfortable - last cxr shows improvement - pt has HD scheduled tomorrow as outpt - father requested and update so I called him and discussed Yanick's care - family does not want pt to go to a rehab facility - discussed fluid restriction - discussed permacath care with family, pt pulled it out once already, will have to pay close attention and try to prevent him from pulling it out again - pulse ox has improved - fistula with thrill and bruit - discussed with hospitalist at bedside Dr Velasquez
[2017-10-11] MEDS: NIFEdipine E.R. 90 MG TABLET (FP) PO SCH (16:19)
[2017-10-11] MEDS: LISINOPRIL 10 MG TABLET (FP) PO SCH (16:19)
[2017-10-11] MEDS: VITAMIN B COMP W-C 1 EA TABLET PO SCH (16:19)
[2017-10-11] MEDS: LACOSAMIDE 50 MG TABLET PO SCH ×2 (16:20→16:21)
[2017-10-11] MEDS: AMINO ACIDS/PROTEIN HYDROLYS 30 ML LIQUID.PKT NGT SCH (16:20)
[2017-10-11 16:32] VITALS: BP 164/91; PULSE 92; TEMP 98.6
== END 2017-10-11 17:45 | disposition home or self-care (01) | DRG 853 ==
LOC: FER 10:04 → J4W 16:50 → JICU 18:39 → J4S 09-26 17:38
PROVIDERS: ADMIT Internal Medicine; ATTEND Nurse Practitioner Acute Care
PROC: 05HM33Z Insertion of Infusion Device into Right Internal Jugular Vein, Percutaneous Approach (ICD-10-PCS; principal; 2017-08-29)
PROC: 5A1D70Z Performance of Urinary Filtration, Intermittent, Less than 6 Hours Per Day (ICD-10-PCS; 2017-08-29)
PROC: 5A1955Z Respiratory Ventilation, Greater than 96 Consecutive Hours (ICD-10-PCS; 2017-09-02)
PROC: 0W9B3ZX Drainage of Left Pleural Cavity, Percutaneous Approach, Diagnostic (ICD-10-PCS; 2017-09-02)
PROC: 0CHY7BZ Insertion of Airway into Mouth and Throat, Via Natural or Artificial Opening (ICD-10-PCS; 2017-09-02)
PROC: 0W9B30Z Drainage of Left Pleural Cavity with Drainage Device, Percutaneous Approach (ICD-10-PCS; 2017-09-04)
PROC: 0W2BX0Z Change Drainage Device in Left Pleural Cavity, External Approach (ICD-10-PCS; 2017-09-04)
PROC: 05HM33Z Insertion of Infusion Device into Right Internal Jugular Vein, Percutaneous Approach (ICD-10-PCS; 2017-09-10)
PROC: B543ZZA Ultrasonography of Right Jugular Veins, Guidance (ICD-10-PCS; 2017-09-10)
PROC: 0BBP4ZX Excision of Left Pleura, Percutaneous Endoscopic Approach, Diagnostic (ICD-10-PCS; 2017-09-17)
PROC: 0BNJ4ZZ Release Left Lower Lung Lobe, Percutaneous Endoscopic Approach (ICD-10-PCS; 2017-09-17)
PROC: 0W9B40Z Drainage of Left Pleural Cavity with Drainage Device, Percutaneous Endoscopic Approach (ICD-10-PCS; 2017-09-17)
PROC: 0TB03ZX Excision of Right Kidney, Percutaneous Approach, Diagnostic (ICD-10-PCS; 2017-09-26)
PROC: 03180ZD Bypass Left Brachial Artery to Upper Arm Vein, Open Approach (ICD-10-PCS; 2017-10-08)
DX: A41.89 Other specified sepsis (principal); J18.9 Pneumonia, unspecified organism; J96.01 Acute respiratory failure with hypoxia; N18.6 End stage renal disease; J86.9 Pyothorax without fistula; F84.0 Autistic disorder; N17.9 Acute kidney failure, unspecified; E87.1 Hypo-osmolality and hyponatremia; E87.2 Acidosis; I24.8 Other forms of acute ischemic heart disease; J98.11 Atelectasis; J90 Pleural effusion, not elsewhere classified; D62 Acute posthemorrhagic anemia; I12.0 Hypertensive chronic kidney disease with stage 5 chronic kidney disease or end stage renal disease; D68.9 Coagulation defect, unspecified; R00.0 Tachycardia, unspecified; E83.42 Hypomagnesemia; I45.81 Long QT syndrome; I45.10 Unspecified right bundle-branch block; E87.5 Hyperkalemia; G40.909 Epilepsy, unspecified, not intractable, without status epilepticus; R19.7 Diarrhea, unspecified; D72.829 Elevated white blood cell count, unspecified; I16.0 Hypertensive urgency; D69.6 Thrombocytopenia, unspecified; E66.9 Obesity, unspecified; Z68.25 Body mass index [BMI] 25.0-25.9, adult; R94.31 Abnormal electrocardiogram [ECG] [EKG]; E83.39 Other disorders of phosphorus metabolism; R65.20 Severe sepsis without septic shock; R45.1 Restlessness and agitation; Z99.2 Dependence on renal dialysis
CPT/HCPCS: 31500; 32557; 36415; 36430; 36600; 50200; 71045-TC-FY; 71250-TC; 74176-TC; 76000-TC-FY; 76098-TC-FY; 76775-TC; 76942-TC; 76998-TC; 80048; 80053; 80076; 80164; 81003; 81015; 82042; 82150; 82272; 82310; 82550; 82553; 82565; 82570; 82607; 82728; 82803; 82945; 83010; 83516; 83520; 83540; 83550; 83605; 83615; 83690; 83735; 83970; 83986; 84100; 84132; 84155; 84156; 84157; 84165; 84300; 84439; 84443; 84466; 84478; 84484; 84520; 85025; 85027; 85044; 85384; 85397; 85610; 85651; 85730; 86038; 86140; 86157; 86160; 86215; 86225; 86256; 86704; 86706; 86708; 86850; 86880; 86900; 86901; 86922; 87040; 87045; 87046; 87070; 87075; 87086; 87102; 87116; 87184; 87186; 87205; 87206; 87210; 87324; 87340; 87427; 87449; 87522; 87899; 88108; 88304-TC; 88305-TC; 88329; 89051; 93005; 93010; 93306-TC; 93930; 93970-TC; 94002; 94640; 94760; 94761; 97116-GP; 97161-GP; 99285-25; C1729; C1769; C1887; G0480; J0131; J0735; J0885; J1644; J7030; J7620; P9017; P9038; P9058

== ENCOUNTER 2017-10-18 15:13 | Observation (INO) | payer OTHER, BC ==
[2017-10-18 15:49] VITALS: BMI 22.8
--- NOTE | 2017-10-18 16:27 | PDOC ---
Attending Attestation - Resident Resident Name: Ralph Yaeger - ED Attending Attestation I have performed the following: I have examined & evaluated the patient, The case was reviewed & discussed with the resident, I agree w/resident's findings & plan, Exceptions are as noted - HPI HPI: 10/18/17 16:21 22y M hx of htn, ESRD (formerly MWF, currently transitioning to TTS, last dialysis Mon, had 1 hr today), autism, recent complicated history for pna including empyema s/p vats and chest tube present s with complaints of pulling out his cathter during dialysis. pt otherwise at baseline without other complaints including cough, sob, cmkay, n/v, abd pain. pt nonverbal and history limited. on exam pt in no distress moving all 4 extremities spontaneously pulm exam cta heart: rrr abd soft nontender chest wall: no active bleeding at site of cathter will obtain blood work, cxr, keg to ro acute need for emergent dialysis will dw vascular regarding replacement of permcath - Physicial Exam PE: 10/18/17 17:36 see above - Medical Decision Making 10/18/17 17:36 see above Heart Score/ECG Review - ECG Impressions Comment:: 10/18/17 17:36 Twelve-lead EKG was performed and reviewed by me. There is normal sinus rhythm with a normal rate. \rate of 91 Left axis deviation nonspecific intraventricular block
--- NOTE | 2017-10-18 16:41 | PN ---
Progress Note (short form) - Note Progress Note: called for dialysis access. patient pulled out his permacath today. scheduled for another one tomorrow in OR. NPO AFTER MIDNIGHT
--- NOTE | 2017-10-18 16:46 | PDOC ---
History of Present Illness <Claudia Lopez - Last Filed: 10/18/17 18:18> - General History Source: Patient, Family Exam Limitations: Clinical Condition - History of Present Illness Initial Comments: 10/18/17 16:40 Patient is a 22M with history of autism, HTN and ICU course complicated by acute respiratory failure, acute kidney failure (s/p permacath and fistula placement), empyema s/p vats procedure, discharged on 10/11/17 here today after pulling his catheter out during dialysis. Patient received about 1 hour of 3.5 hours planned for dialysis. Patient's last dialysis was Sunday as patient has been trying to move to [facility] dialysis. Mom reports no other issues with the patient. Dr Kc - Vascular Surgeon. Dr Velasquez - Renal. <Ralph Yeager - Last Filed: 10/18/17 18:30> - General Chief Complaint: Dialysis Shunt Problem Stated Complaint: Dialysis Shunt Problem Time Seen by Provider: 10/18/17 15:59 Past History <Claudia Lopez - Last Filed: 10/18/17 18:18> - Past Medical History COPD: No Dialysis: Yes GI Disorders: Yes (acute renal failure) HTN: Yes Seizures: Yes (SEIZURES) - Surgical History Abdominal Surgery: Yes (yogesh inguinal surgery) - Immunization History Td Vaccination: No - Suicide/Smoking/Psychosocial Hx Smoking Status: No Smoking History: Never smoked Years of Tobacco Use: 0 Have you smoked in the past 12 months: No Number of Cigarettes Smoked Daily: 0 Information on smoking cessation initiated: No Hx Alcohol Use: No Drug/Substance Use Hx: No Substance Use Type: None Hx Substance Use Treatment: No <Ralph Yeager - Last Filed: 10/18/17 18:30> - Past Medical History Allergies/Adverse Reactions: Allergies Allergy/AdvReac Type Severity Reaction Status Date / Time cefprozil [From Cefzil] Allergy Intermediate Rash Verified 10/18/17 15:41 Home Medications: Ambulatory Orders Labetalol HCl [Normodyne -] 600 mg PO TID #90 tablet 10/09/17 Lacosamide [Vimpat -] 75 mg PO MOWEFR #30 tab MDD 1 10/09/17 Lacosamide [Vimpat -] 150 mg PO BID #60 tab MDD 2 10/09/17 Nifedipine ER [Procardia XL -] 90 mg PO BID #60 tab.er.24 10/09/17 Sevelamer Carbonate [Renvela -] 1,600 mg PO TIDCM #90 tab 10/09/17 Vitamin B Comp W-C [Nephro-Claudia -] 1 tablet PO DAILY #30 tablet 10/09/17 hydrALAZINE HCL [Apresoline -] 50 mg PO TID #90 tablet 10/09/17 Collagenase Clostridium Hist. [Santyl -] 1 applic TP DAILY #1 tube 10/11/17 Lisinopril [Prinivil] 10 mg PO DAILY #30 tablet 10/11/17 Review of Systems - Review of Systems Able to Perform ROS?: No (2/2 autism) <Ralph Yeager - Last Filed: 10/18/17 18:30> *Physical Exam - Vital Signs Last Vital Signs Temp Pulse Resp BP Pulse Ox 98.2 F 96 H 20 131/90 98 10/18/17 15:41 10/18/17 16:23 10/18/17 15:41 10/18/17 15:41 10/18/17 16:23 <Claudia Lopez - Last Filed: 10/18/17 18:18> - Vital Signs Last Vital Signs Temp Pulse Resp BP Pulse Ox 98.2 F 96 H 20 131/90 98 10/18/17 15:41 10/18/17 16:23 10/18/17 15:41 10/18/17 15:41 10/18/17 16:23 - Physical Exam Comments: 10/18/17 16:46 GENERAL: Awake, alert, in no acute distress HEAD: No signs of trauma, normocephalic, atraumatic EYES: PERRLA, EOMI, sclera anicteric, conjunctiva clear ENT: Auricles normal inspection, hearing grossly normal, nares patent, oropharynx clear without exudates. Moist mucosa NECK: Normal ROM, supple, no lymphadenopathy, JVD, or masses LUNGS: No distress, clear to auscultation bilaterally HEART: Regular rate and rhythm, normal S1 and S2, no murmurs, rubs or gallops, peripheral pulses normal and equal bilaterally. ABDOMEN: Soft, nontender, normoactive bowel sounds. No guarding, no rebound. No masses EXTREMITIES: Displaced R permacath placement. Normal range of motion, no edema. No clubbing or cyanosis. NEUROLOGICAL: Cranial nerves II through XII grossly intact. Normal speech, no focal sensorimotor deficits SKIN: Warm, Dry, normal turgor, no rashes or lesions noted. <ToyRalph - Last Filed: 10/18/17 18:30> ED Treatment Course - LABORATORY CBC & Chemistry Diagram: 10/18/17 17:02 10/18/17 17:02 - ADDITIONAL ORDERS Additional order review: 10/18/17 17:02 RBC 3.13 L MCV 89.0 MCHC 32.9 RDW 15.6 MPV 8.4 D <Claudia Lopez - Last Filed: 10/18/17 18:18> - LABORATORY CBC & Chemistry Diagram: 10/18/17 17:02 10/18/17 17:02 - RADIOLOGY Radiology Studies Ordered: Category Date Time Status CXRPORT [CHEST X-RAY PORTABLE*] [RAD] Stat Radiology 10/18/17 16:27 Taken <Ralph Yeager - Last Filed: 10/18/17 18:30> Medical Decision Making - Medical Decision Making 10/18/17 17:39 Dr. Kevin Jameson (Vascular Surgeon from [facility]) was paged and notified via phone service. Second page was placed at 17:55. 10/18/17 18:18 Dr. Velasquez was paged and notified via phone service. <Claudia Lopez - Last Filed: 10/18/17 18:18> - Medical Decision Making 10/18/17 16:47 Patient is 22M with history of HTN, ICU stay, ESRD on permacath dialysis here today after permacath pulled out. Vital signs stable and normal. Will evaluate with cbc, cmp for possible need of emergent/urgent dialysis. Will contact vascular surgery to see if patient needs admission to have procedure to replace. 10/18/17 18:10 Dr Jameson contacted, wants patient to be admitted to go to OR tomorrow. Labs show Cr of 10, normal K, CXR clear. EKG shows normal sinus rhythm with rate of 91. No st elevations/depressions. Left axis. QRS widened to 134 in LBBB morphology. QTc prolonged to 516. 10/18/17 18:20 Dr Velasquez contacted, aware of case. 10/18/17 18:30 Admitted to Obs via [facility] Kaplan. <Ralph Yeager - Last Filed: 10/18/17 18:30> *DC/Admit/Observation/Transfer <Claudia Lopez - Last Filed: 10/18/17 18:18> - Discharge Dispostion Decision to Admit order: Yes <Ralph Yeager - Last Filed: 10/18/17 18:30> Diagnosis at time of Disposition: Complication, dialysis catheter clot or failure - Discharge Dispostion Condition at time of disposition: Stable
[2017-10-18 17:28] LABS: HEMATOCRIT 27.9 % (35.4-49); HEMOGLOBIN 9.2 GM/dL (11.7-16.9); MCH 29.3 pg (25.7-33.7); MCHC 32.9 g/dl (32.0-35.9); MEAN PLT VOLUME 8.4 fl (7.5-11.1); PLATELET COUNT 314 K/MM3 (134-434); RBC 3.13 M/mm3 (4.00-5.60); RDW 15.6 % (11.9-15.9); WHITE BLOOD COUNT 6.5 K/mm3 (4.0-10.0)
[2017-10-18 17:56] LABS: ALBUMIN 3.2 g/dl (3.4-5.0); ANION GAP 10 (8-16); BILIRUBIN,TOTAL 0.4 mg/dL (0.2-1.0); BLOOD UREA NITROGEN 44 mg/dL (7-18); CALCIUM 8.5 mg/dL (8.5-10.1); CHLORIDE 103 mmol/L (98-107); CO2 26 mmol/L (21-32); GLUCOSE,RANDOM 84 mg/dL (74-106); POTASSIUM 4.4 mmol/L (3.5-5.1); SGPT/ALT 18 U/L (12-78); SODIUM 139 mmol/L (136-145); TOT PROT 6.9 g/dl (6.4-8.2)
[2017-10-18 18:01] LABS: ALK PHOS 115 U/L (45-117); SGOT/AST 12 U/L (15-37)
--- NOTE | 2017-10-18 21:55 | HP ---
CHIEF COMPLAINT: pulled out permacath PCP: Indira HISTORY OF PRESENT ILLNESS: This is a 22 year old male with a significant past medical history of autism, HTN, ESRD, seizures presented to the ED because he pulled out his permacath during dialysis. He who was recently admitted to this hospital 08/29/17-10/11/17 for pneumonia, ANNA, hypertensive urgency. Hospital course complicated by acute respiratory failure,requiring intubation and emergent HD. Hospital course further complicated by persistent left pleural effusion requiring VATS and pneumolysis on 09/17. ESRD on HD. AV fistula placed 10/08. He pulled out his catheter after only 1 hour of dialysis. Pt's last full dialysis session was Sunday as he is being transitioned to ,, sessions. Upon exam, pt in no distress. Pt is mostly nonverbal at baseline but is able to understand what is said to him. Shakes his head no when asked if anything bothering him. He is sitting up watching a show on his tablet. ER course was notable for: (1) BUN 44, Cr 10.0 Recent Travel: father denies PAST MEDICAL HISTORY: autism, HTN, CKD-ESRD, epilepsy PAST SURGICAL HISTORY: VATS, pneumolysis 09/17/17 Left brachio-cephalic AV fistula and insertion of permcath 10/08/17 inguinal hernia repair as Social History: Smoking: father denies Alcohol: father denies Drugs: father denies Family History: mother alive and well father with DM, HTN, "heart problem" no siblings Allergies cefprozil [From Cefzil] Allergy (Intermediate, Verified 10/18/17 15:41) Rash HOME MEDICATIONS: 3 Medication Instructions Recorded Labetalol HCl [Normodyne -] 600 mg PO TID #90 tablet 10/09/17 Lacosamide [Vimpat -] 75 mg PO MOWEFR #30 tab MDD 1 10/09/17 Lacosamide [Vimpat -] 150 mg PO BID #60 tab MDD 2 10/09/17 Nifedipine ER [Procardia XL -] 90 mg PO BID #60 tab.er.24 10/09/17 Sevelamer Carbonate [Renvela -] 1,600 mg PO TIDCM #90 tab 10/09/17 Vitamin B Comp W-C [Nephro-Claudia -] 1 tablet PO DAILY #30 tablet 10/09/17 hydrALAZINE HCL [Apresoline -] 50 mg PO TID #90 tablet 10/09/17 Collagenase Clostridium Hist. 1 applic TP DAILY #1 tube 10/11/17 [Santyl -] Lisinopril [Prinivil] 10 mg PO DAILY #30 tablet 10/11/17 REVIEW OF SYSTEMS CONSTITUTIONAL: Absent: fever, chills, diaphoresis, generalized weakness, malaise, loss of appetite, weight change HEENT: Absent: rhinorrhea, nasal congestion, throat pain, throat swelling, difficulty swallowing, mouth swelling, ear pain, eye pain, visual changes CARDIOVASCULAR: Absent: chest pain, syncope, palpitations, irregular heart rate, lightheadedness , peripheral edema RESPIRATORY: Absent: cough, shortness of breath, dyspnea with exertion, orthopnea, wheezing, stridor, hemoptysis GASTROINTESTINAL: Absent: abdominal pain, abdominal distension, nausea, vomiting, diarrhea, constipation, melena, hematochezia GENITOURINARY: Absent: dysuria, frequency, urgency, hesitancy, hematuria, flank pain, genital pain MUSCULOSKELETAL: Absent: myalgia, arthralgia, joint swelling, back pain, neck pain SKIN: Absent: rash, itching, pallor HEMATOLOGIC/IMMUNOLOGIC: Absent: easy bleeding, easy bruising, lymphadenopathy, frequent infections ENDOCRINE: Absent: unexplained weight gain, unexplained weight loss, heat intolerance, cold intolerance NEUROLOGIC: Absent: headache, focal weakness or paresthesias, dizziness, unsteady gait, seizure, mental status changes, bladder or bowel incontinence PSYCHIATRIC: Absent: anxiety, depression, suicidal or homicidal ideation, hallucinations. PHYSICAL EXAMINATION Vital Signs - 24 hr 3 10/18/17 10/18/17 10/18/17 15:41 16:23 18:46 Temperature 98.2 F Pulse Rate 86 96 H Pulse Rate [ 96 H Left Apical] Respiratory 20 18 Rate Blood Pressure 131/90 Blood Pressure 142/73 [Left Arm] O2 Sat by Pulse 92 L 98 98 Oximetry (%) GENERAL: Awake, alert, and fully oriented, in no acute distress. HEAD: Normal with no signs of trauma. EYES: Pupils equal, round and reactive to light, extraocular movements intact, sclera anicteric, conjunctiva clear. No lid lag. EARS, NOSE, THROAT: Ears normal, nares patent, oropharynx clear without exudates. Moist mucous membranes. NECK: Normal range of motion, supple without lymphadenopathy, JVD, or masses. LUNGS: Breath sounds equal, clear to auscultation bilaterally. No wheezes, and no crackles. No accessory muscle use. HEART: Regular rate and rhythm, normal S1 and S2 without murmur, rub or gallop. ABDOMEN: Soft, nontender, not distended, normoactive bowel sounds, no guarding, no rebound, no masses. No hepatomegaly or splenomegaly. MUSCULOSKELETAL: No bony deformities or tenderness. No CVA tenderness. UPPER EXTREMITIES: 2+ pulses, warm, well-perfused. No cyanosis. No clubbing. No peripheral edema. LOWER EXTREMITIES: 2+ pulses, warm, well-perfused. No calf tenderness. No peripheral edema. NEUROLOGICAL: Cranial nerves II-XII intact. Normal speech. Normal gait. PSYCHIATRIC: Cooperative. Good eye contact. Appropriate mood and affect. SKIN: Warm, dry, normal turgor, no rashes or lesions noted, normal capillary refill. healing surgical scars left lower lateral chest. Scabbing present. no erythema, no discharge Laboratory Results - last 24 hr 3 10/18/17 10/18/17 17:02 17:02 WBC 6.5 RBC 3.13 L Hgb 9.2 L Hct 27.9 L MCV 89.0 MCH 29.3 MCHC 32.9 RDW 15.6 Plt Count 314 D MPV 8.4 D Sodium 139 Potassium 4.4 Chloride 103 Carbon Dioxide 26 Anion Gap 10 BUN 44 H D Creatinine 10.0 H* D Creat Clearance w eGFR 6.50 Random Glucose 84 Calcium 8.5 Total Bilirubin 0.4 AST 12 L D ALT 18 D Alkaline Phosphatase 115 Total Protein 6.9 Albumin 3.2 L Radiology Reports CXR portable IMPRESSION: Small left pleural effusion with underlying atelectasis versus consolidation, similar to the prior chest x-ray. Very small right pleural effusion versus pleural thickening. Reported By: Doug Dacosta DO 10/18/17 [id number] ASSESSMENT/PLAN: 22yM with PMH autism, HTN, CKD-ESRD, epilepsy s/p recent hospitalization with multiple complications presented to the ED after pulling out his permacath during dialysis. ESRD - will need permacath replacement, vascular consult for same - NPO after MN for OR tomorrow - renal consult for dialysis after permacath placement epilepsy - cont current meds-vimpat HTN - cont home meds DVT PPX - heparin deferred as anticipated LOS less than 48h FEN - fluid restriction 1L - BMP in am - renal diet after cath placement, NPO after midnight tonight Dispo: pt currently requires further observation for management of his emergent condition. Visit type - Emergency Visit Emergency Visit: Yes ED Registration Date: 10/18/17 Care time: The patient presented to the Emergency Department on the above date and was hospitalized for further evaluation of their emergent condition. - New Patient This patient is new to me today: Yes Date on this admission: 10/18/17 - Critical Care Critical Care patient: No Hospitalist Screening - Colonoscopy Questionnaire Colonoscopy Questionnaire: Colonoscopy Questionnaire - Patient: 50 - 75 years old and never had a screening colonoscopy: No History of colon or rectal polyps, or CA: No History of IBD, Crohn's disease or UC: No History of abdominal radiation therapy as a child: No - Relative: 1 with colon or rectal CA, or polyps at age 60 or younger: No Colon or rectal CA diagnosed at age 45 or younger: No Multiple relatives with colon or rectal CA: No - Outcome: Screening Result: Negative Screen
[2017-10-18] MEDS: NIFEdipine E.R. 90 MG TABLET (FP) PO SCH (22:24)
[2017-10-18] MEDS: LABETALOL HCL 200 MG TABLET (FP) PO SCH (22:24)
[2017-10-18] MEDS: LACOSAMIDE 50 MG TABLET PO SCH (22:25)
[2017-10-18] MEDS: hydrALAZINE HCL 50 MG TABLET (FP) PO SCH (22:25)
[2017-10-19] MEDS: hydrALAZINE HCL 50 MG TABLET (FP) PO SCH ×3 (06:18→21:06)
[2017-10-19] MEDS: LABETALOL HCL 200 MG TABLET (FP) PO SCH ×3 (06:18→21:06)
[2017-10-19 07:49] LABS: BASO % 0.8 % (0-2.0); EOS % 2.9 % (0-4.5); HEMOGLOBIN 9.2 GM/dL (11.7-16.9); LYMPH % 28.9 % (8-40); MCH 29.4 pg (25.7-33.7); MEAN CELL VOLUME 89.1 fl (80-96); MEAN PLT VOLUME 8.3 fl (7.5-11.1); MONO % 7.9 % (3.8-10.2); NEUT % 59.5 % (42.8-82.8); PLATELET COUNT 344 K/MM3 (134-434); RBC 3.14 M/mm3 (4.00-5.60); WHITE BLOOD COUNT 6.3 K/mm3 (4.0-10.0)
[2017-10-19] MEDS: SEVELAMER CARBONATE 800 MG TAB (FP) PO SCH ×3 (08:13→17:01)
[2017-10-19 08:15] LABS: CHLORIDE 104 mmol/L (98-107); POTASSIUM 4.9 mmol/L (3.5-5.1); SODIUM 140 mmol/L (136-145)
[2017-10-19] MEDS ORDERED: PT OWN MED DRAWER 7, Y5N ONE (08:35)
[2017-10-19 08:36] LABS: ANION GAP 14 (8-16); BLOOD UREA NITROGEN 53 mg/dL (7-18); CALCIUM 8.6 mg/dL (8.5-10.1); CO2 22 mmol/L (21-32); GLUCOSE,RANDOM 88 mg/dL (74-106); MAGNESIUM 2.7 mg/dL (1.8-2.4); PHOSPHOROUS 5.8 mg/dL (2.5-4.9)
[2017-10-19 08:42] LABS: CREATININE 11.7 mg/dL (0.7-1.3)
[2017-10-19] MEDS: LISINOPRIL 10 MG TABLET (FP) PO SCH ×2 (08:45→09:14)
[2017-10-19] MEDS: LACOSAMIDE 50 MG TABLET PO SCH ×3 (08:47→21:06)
[2017-10-19] MEDS: VITAMIN B COMP W-C 1 EA TABLET PO SCH (09:14)
[2017-10-19] MEDS: NIFEdipine E.R. 90 MG TABLET (FP) PO SCH ×2 (09:20→21:06)
--- NOTE | 2017-10-19 10:48 | EKG ---
Test Reason : Blood Pressure : / mmHG Vent. Rate : 091 BPM Atrial Rate : 091 BPM P-R Int : 192 ms QRS Dur : 134 ms QT Int : 420 ms P-R-T Axes : 054 -83 068 degrees QTc Int : 516 ms NORMAL SINUS RHYTHM LEFT AXIS DEVIATION NON-SPECIFIC INTRA-VENTRICULAR CONDUCTION BLOCK ABNORMAL ECG WHEN COMPARED WITH ECG OF 02-SEP-2017 12:52, NO SIGNIFICANT CHANGE WAS FOUND Confirmed by ADRIAN FUCHS MD ([id number]) on 10/19/2017 10:47:51 AM Referred By: Confirmed By:ADRIAN FUCHS MD
[2017-10-19] MEDS ORDERED: PROPOFOL 20 ML ONE ×2 (14:20→14:47)
[2017-10-19] MEDS ORDERED: MIDAZOLAM HCL 2 MG/2 ML SINGLE DOSE VIAL ONE (14:20)
[2017-10-19] MEDS ORDERED: HEPARIN NA (PORCINE) 5,000 UNITS/ML 1ML VIAL ONE (14:33)
[2017-10-19] MEDS ORDERED: LACOSAMIDE 50 MG TABLET PO SCH (15:00)
[2017-10-19] MEDS ORDERED: ceFAZolin SODIUM 1 GM VIAL IVPB ONE (15:03)
[2017-10-19] MEDS ORDERED: SUCCINYLCHOLINE CHLORIDE 200 MG/10 ML VIAL ONE (15:06)
--- NOTE | 2017-10-19 15:30 | PN ---
Physical Exam: SUBJECTIVE: Patient seen and examined. He appears well, in no distress. No cough , sob, active in bed. Mother at bedside. OBJECTIVE: Vital Signs Period Temp Pulse Resp BP Sys/Mora Pulse Ox Last 24 Hr 98.2 F-99.3 F 86-96 18-20 131-142/70-90 92-98 PE Neuro: awake, alert, NAD Pulm: CTAB CV: s1 s2 rrr no mrg Abd: s nt nd +bs Ext: warm, no le edema Access: RCW permacath site with sutures in place, no bleeding Laboratory Results - last 24 hr 10/18/17 10/18/17 10/19/17 17:02 17:02 06:30 WBC 6.5 6.3 RBC 3.13 L 3.14 L Hgb 9.2 L 9.2 L Hct 27.9 L 28.0 L MCV 89.0 89.1 MCH 29.3 29.4 MCHC 32.9 33.0 RDW 15.6 15.0 Plt Count 314 D 344 MPV 8.4 D 8.3 Neutrophils % 59.5 Lymphocytes % 28.9 D Monocytes % 7.9 D Eosinophils % 2.9 Basophils % 0.8 Nucleated RBC % 0 Sodium 139 Potassium 4.4 Chloride 103 Carbon Dioxide 26 Anion Gap 10 BUN 44 H D Creatinine 10.0 H* D Creat Clearance w eGFR 6.50 Random Glucose 84 Calcium 8.5 Phosphorus Magnesium Total Bilirubin 0.4 AST 12 L D ALT 18 D Alkaline Phosphatase 115 Total Protein 6.9 Albumin 3.2 L 10/19/17 06:30 WBC RBC Hgb Hct MCV MCH MCHC RDW Plt Count MPV Neutrophils % Lymphocytes % Monocytes % Eosinophils % Basophils % Nucleated RBC % Sodium 140 Potassium 4.9 Chloride 104 Carbon Dioxide 22 Anion Gap 14 BUN 53 H D Creatinine 11.7 H* Creat Clearance w eGFR Random Glucose 88 Calcium 8.6 Phosphorus 5.8 H D Magnesium 2.7 H Total Bilirubin AST ALT Alkaline Phosphatase Total Protein Albumin Active Medications Generic Name Dose Route Start Last Admin Trade Name Freq PRN Reason Stop Dose Admin Hydralazine HCl 50 mg 10/18/17 22:00 10/19/17 13:58 Apresoline - PO Not Given TID [facility] Labetalol HCl 600 mg 10/18/17 22:00 10/19/17 13:58 Normodyne - PO Not Given TID LANE Lacosamide 75 mg 10/19/17 15:00 Vimpat - PO [email or web address] LANE Lacosamide 150 mg 10/18/17 22:00 10/19/17 09:14 Vimpat - PO Not Given BID LANE Lisinopril 10 mg 10/19/17 10:00 10/19/17 09:14 Prinivil PO Not Given DAILY LANE Multivit/Ca Carb/B Cmplx/FA/Prenat 1 tablet 10/19/17 10:00 10/19/17 09:14 Nephro-Claudia - PO Not Given DAILY LANE Nifedipine 90 mg 10/18/17 22:00 10/19/17 09:20 Procardia Xl - PO [address] Administration Sevelamer Carbonate 1,600 mg 10/19/17 08:00 10/19/17 11:44 Renvela - PO Not Given TIDCM LANE Assessment: 22 year old male with PMHx autism, HTN, CKD-ESRD, epilepsy s/p recent hospitalization with multiple complications presented to the ED after pulling out his permacath during dialysis. Plan: 1. ESRD on HD , TTS - permacath placement today - HD after - Pending HD completion dc home 2. Epilepsy - Vimpat as scheduled 3. HTN - Controlled - Cont current meds 4. DVT PPX - Heparin sq Visit type - Emergency Visit Emergency Visit: Yes ED Registration Date: 10/18/17 Care time: The patient presented to the Emergency Department on the above date and was hospitalized for further evaluation of their emergent condition. - New Patient This patient is new to me today: Yes Date on this admission: 10/19/17 - Critical Care Critical Care patient: No
[2017-10-19] MEDS ORDERED: SODIUM CHLORIDE 250 ML IV PRN ×2 (15:36→15:56)
--- NOTE | 2017-10-19 15:36 | CONSULT ---
Consult Consult Specialty:: Nephrology Reason for Consultation:: ESRD - History of Present Illness Chief Complaint: pulled out permacath History of Present Illness: Pt is a 22 year old male with pmhx of ESRD, anemia, HTN, and autism. He pulled out his permacath after about one hour of HD yesterday. He is awake and at baseline. His mother is at bedside. He appears comfortable. Pt is unable to give history. 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) Cardio/Vascular: Yes: HTN Pulmonary: Yes: Other (pleural effusion) Renal/: Yes: Renal Inusuff, Hemodialysis Heme/Onc: Yes: Anemia - Past Surgical History Past Surgical History: Yes: AV Fistula/Graft, Hernia Repair - Alcohol/Substance Use Hx Alcohol Use: No - Smoking History Smoking history: Never smoked Have you smoked in the past 12 months: No Aproximately how many cigarettes per day: 0 Home Medications - Allergies Allergies/Adverse Reactions: Allergies Allergy/AdvReac Type Severity Reaction Status Date / Time cefprozil [From Cefzil] Allergy Intermediate Rash Verified 10/18/17 15:41 - Home Medications Home Medications: Ambulatory Orders Labetalol HCl [Normodyne -] 600 mg PO TID #90 tablet 10/09/17 Lacosamide [Vimpat -] 75 mg PO MOWEFR #30 tab MDD 1 10/09/17 Lacosamide [Vimpat -] 150 mg PO BID #60 tab MDD 2 10/09/17 Nifedipine ER [Procardia XL -] 90 mg PO BID #60 tab.er.24 10/09/17 Sevelamer Carbonate [Renvela -] 1,600 mg PO TIDCM #90 tab 10/09/17 Vitamin B Comp W-C [Nephro-Claudia -] 1 tablet PO DAILY #30 tablet 10/09/17 hydrALAZINE HCL [Apresoline -] 50 mg PO TID #90 tablet 10/09/17 Collagenase Clostridium Hist. [Santyl -] 1 applic TP DAILY #1 tube 10/11/17 Lisinopril [Prinivil] 10 mg PO DAILY #30 tablet 10/11/17 Family Disease History - Family Disease History Family Disease History: Other: Father (htn) Review of Systems Unable to obtain ROS, reason: pt not verbal Physical Exam Vital Signs: Vital Signs Temperature 99.3 F 10/19/17 06:00 Pulse Rate 86 10/19/17 08:14 Respiratory Rate 20 10/19/17 08:14 Blood Pressure 141/70 10/19/17 08:14 O2 Sat by Pulse Oximetry (%) 98 10/19/17 10:00 Constitutional: Yes: Calm Eyes: Yes: Conjunctiva Clear HENT: Yes: Atraumatic Neck: Yes: Supple Cardiovascular: Yes: S1, S2 Respiratory: Yes: CTA Bilaterally Gastrointestinal: Yes: Soft Renal/: Yes: WNL Musculoskeletal: Yes: WNL Extremities: Yes: Other (fistula with thrill and bruit) Edema: No Neurological: Yes: Pre-Existing Deficit Labs: CBC, BMP 10/19/17 06:30 10/19/17 06:30 Laboratory Tests 10/18/17 10/19/17 10/19/17 17:02 06:30 06:30 Hgb 9.2 L Sodium 139 140 Potassium 4.4 4.9 BUN 53 H D Creatinine 11.7 H* Imaging - Results Chest X-ray: Report Reviewed Assessment/Plan Current Medications Generic Name Dose Route Start Last Admin Trade Name Freq PRN Reason Stop Dose Admin Hydralazine HCl 50 mg 10/18/17 22:00 10/19/17 13:58 Apresoline - PO Not Given TID LANE Labetalol HCl 600 mg 10/18/17 22:00 10/19/17 13:58 Normodyne - PO Not Given TID LANE Lacosamide 75 mg 10/19/17 15:00 Vimpat - PO [email or web address] LANE Lacosamide 150 mg 10/18/17 22:00 10/19/17 09:14 Vimpat - PO Not Given BID LANE Lisinopril 10 mg 10/19/17 10:00 10/19/17 09:14 Prinivil PO Not Given DAILY [facility] Multivit/Ca Carb/B Cmplx/FA/Prenat 1 tablet 10/19/17 10:00 10/19/17 09:14 Nephro-Claudia - PO Not Given DAILY LANE Nifedipine 90 mg 10/18/17 22:00 10/19/17 09:20 Procardia Xl - PO [address] Administration Sevelamer Carbonate 1,600 mg 10/19/17 08:00 10/19/17 11:44 Renvela - PO Not Given TIDCM LANE Impression 1. ESRD 2. autism 3. HTN 4. anemia 5. epilepsy 6. hx of pleural effusions Plan - pt going for permacath today - will arrange for HD today - epogen for anemia - resume home meds - will need HD again here tomorrow if not discharged tonight - if he is discharged he can go to [facility] for HD tomorrow - discussed with medical team Dr Velasquez
--- NOTE | 2017-10-19 16:14 | OP ---
Operative Note - Note: Operative Date: 10/19/17 Pre-Operative Diagnosis: ESRD Operation: US guided access, permacath insertion, posterior exit site Findings: tip in RA Implants: 35 cm permacath (bard) Post-Operative Diagnosis: Same as Pre-op Surgeon: Kevin Jameson Anesthesia: General Specimens Removed: none Estimated Blood Loss (mls): 5 Operative Report Dictated: Yes
[2017-10-19] MEDS ORDERED: ONDANSETRON 4 MG/2 ML VIAL IVPUSH PRN (16:16)
[2017-10-19] MEDS ORDERED: PROMETHAZINE HCL 25 MG/1 ML VIAL IVPUSH PRN (16:16)
[2017-10-19] MEDS ORDERED: oxyCODONE HCL 5 MG TABLET PO PRN (16:16)
[2017-10-19] MEDS ORDERED: EPOETIN ALFA 2,000 UNIT/1 ML VIAL IVPUSH ONE (17:45)
--- NOTE | 2017-10-20 00:06 | OP ---
DATE OF OPERATION: 10/19/2017 PREOPERATIVE DIAGNOSIS: End-stage renal disease. POSTOPERATIVE DIAGNOSIS: End-stage renal disease. PROCEDURE PERFORMED: Ultrasound-guided access insertion of right internal jugular PermCath with posterior exit site. SURGEON: Mavis Tijerina MD TOURISM RADIO PRESENTER: None. ESTIMATED BLOOD LOSS: 5 mL SPECIMEN: None. INDICATION FOR PROCEDURE: This is a 22-year-old man who suffers from severe autism. He is uncooperative, and he has pulled out his PermCath twice in the last month. He presented for placement of a new PermCath. He has a fistula which is maturing. I had a long discussion with the mother preoperatively, and together we made the decision to place the exit site of the PermCath in his back. Hopefully, he will not be able to reach it to pull it out again in the future. DESCRIPTION OF PROCEDURE: Patient was brought to the operating room. General anesthesia was induced. Patient's right neck, chest, shoulder, and back were prepped and draped in usual sterile fashion. The right IJ vein was accessed under ultrasound guidance real-time visualization using micropuncture set. An Amplatz wire was inserted into the inferior vena cava under fluoroscopic guidance. Tract serially dilated, and a 35-cm PermCath was selected. The peel-away sheath was inserted. An exit site was selected which had been marked preoperatively, which was out of the patient's reach on his back, medial to his scapula. Incision was made at this point. Attempt was made to tunnel. Tunneling was difficult. Therefore, incision and counter-incisions were made in the skin, and the PermCath was tunneled to the puncture site and dilator and wire were removed and the PermCath was inserted with the tip in the right atrium. Peel-away sheath was peeled away. The puncture site and the counter-incisions were closed using 4-0 Monocryl, and Dermabond was applied. The catheter was secured in place using 0 Ethibond. Both ports flushed and aspirated easily and filled with concentrated heparin. Dry, sterile dressing was applied. Patient was transferred to PACU in stable condition. MAVIS TIJERINA M.D. [id number]
[2017-10-20] MEDS: LABETALOL HCL 200 MG TABLET (FP) PO SCH ×2 (06:51→15:24)
[2017-10-20] MEDS: hydrALAZINE HCL 50 MG TABLET (FP) PO SCH ×2 (06:52→15:24)
[2017-10-20] MEDS: SEVELAMER CARBONATE 800 MG TAB (FP) PO SCH ×2 (09:35→15:35)
--- NOTE | 2017-10-20 12:17 | PN ---
Progress Note (short form) - Note Progress Note: Anesthesiology Post-op 22 y.o. man POD#1 s/p permacath placement under GA. No ON or anesthesia-related issues. Pt. currently at dialysis. VSS. 22 y.o. with stable post-operative course. Continue post-op management as per primary team.
--- NOTE | 2017-10-20 13:44 | DS ---
Physical Exam: SUBJECTIVE: Patient seen and examined on HD. He appears well, interactive OBJECTIVE: Vital Signs Period Temp Pulse Resp BP Sys/Mora Pulse Ox Last 24 Hr 97.4 F-100.6 F 58-97 16-22 117-160/59-96 95-99 PE Neuro: awake, alert, NAD Pulm: CTAB CV: s1 s2 rrr no mrg Abd: s nt nd +bs Ext: warm, no le edema Access: permacath posterior left back, previous rcw permacath skin HOSPITAL COURSE: Date of Admission:10/18/17 Date of Discharge: 10/20/17 Minutes to complete discharge: 37 Discharge Summary Reason For Visit: DIALYSIS CATHETER CLOT OR FAILURE Current Active Problems Complication, dialysis catheter clot or failure (Acute) Hospital Course: Initial Hospital Course: Briefly, this 22 year old male with pmhx of autism, HTN, ESRD, seizures presented to the ED as he pulled out his permacath during dialysis. He was recently admitted from 08/29/17-10/11/17 for pneumonia, ANNA, hypertensive urgency. Hospital course complicated by acute respiratory failure,requiring intubation and emergent HD. Hospital course further complicated by persistent left pleural effusion requiring VATS and pneumolysis on 09/17. ESRD on HD. AV fistula placed . He pulled out his catheter after only 1 hour of dialysis. Pt's last full dialysis session was Sunday as he is being transitioned to ,, sessions. Upon exam, pt in no distress. Pt is mostly nonverbal at baseline. Subsequent Hospital Course/Progress Note/DC summary: Assessment: 22 year old male with PMHx autism, HTN, CKD-ESRD, epilepsy s/p recent hospitalization with multiple complications presented to the ED after pulling out his permacath during dialysis. Plan: 1. ESRD on HD , TTS - Permacath placement 10/19, posterior placement with Dr. Jameson - HD today 2. Epilepsy - Vimpat as scheduled 3. HTN - Controlled - Cont current meds Dispo: - Home with outpt HD, father at bedside agree and aware Condition: Stable - Instructions Diet, Activity, Other Instructions: Please return to the ED for any new, persistent, or worsening symptoms. Follow up with your PCP in 1 week Continue medications as directed Resume HD schedule Referrals: Rani Velasquez MD [Staff Physician] - Disposition: HOME - Home Medications Comprehensive Discharge Medication List: Ambulatory Orders RX: Labetalol HCl [Normodyne -] 600 mg PO TID #90 tablet 10/09/17 RX: Lacosamide [Vimpat -] 75 mg PO MOWEFR #30 tab MDD 1 10/09/17 RX: Lacosamide [Vimpat -] 150 mg PO BID #60 tab MDD 2 10/09/17 RX: Nifedipine ER [Procardia XL -] 90 mg PO BID #60 tab.er.24 10/09/17 RX: Sevelamer Carbonate [Renvela -] 1,600 mg PO TIDCM #90 tab 10/09/17 RX: Vitamin B Comp W-C [Nephro-Claudia -] 1 tablet PO DAILY #30 tablet 10/09/17 RX: hydrALAZINE HCL [Apresoline -] 50 mg PO TID #90 tablet 10/09/17 RX: Collagenase Clostridium Hist. [Santyl -] 1 applic TP DAILY #1 tube 10/11/17 RX: Lisinopril [Prinivil] 10 mg PO DAILY #30 tablet 10/11/17 This patient is new to me today: No Emergency Visit: Yes ED Registration Date: 10/18/17 Care time: The patient presented to the Emergency Department on the above date and was hospitalized for further evaluation of their emergent condition. Critical Care patient: No - Discharge Referral Referred to [facility] No
--- NOTE | 2017-10-20 15:06 | PN ---
Progress Note (short form) - Note Progress Note: Nephrology coverage pt seen while on dialysis more alert and interacting with examiner Current Medications Fentanyl (Sublimaze Injection -) 25 mcg IVPUSH [id number] PRN PRN Reason: PAIN-PACU ORDER X 4 DOSES ONLY Hydralazine HCl (Apresoline -) 50 mg PO TID [facility] Last Admin: 10/20/17 06:52 Dose: 50 mg Sodium Chloride (Normal Saline -) 250 mls @ 3,000 mls/hr IV PRN PRN PRN Reason: Hypotension during Dialysis Labetalol HCl (Normodyne -) 600 mg PO TID [facility] Last Admin: 10/20/17 06:51 Dose: 600 mg Lacosamide (Vimpat -) 75 mg PO [id number] [facility] Last Admin: 10/19/17 15:00 Dose: Not Given Lacosamide (Vimpat -) 150 mg PO BID [facility] Last Admin: 10/19/17 21:06 Dose: 150 mg Lisinopril (Prinivil) 10 mg PO DAILY [facility] Last Admin: 10/19/17 09:14 Dose: Not Given Multivit/Ca Carb/B Cmplx/FA/Prenat (Nephro-Claudia -) 1 tablet PO DAILY [facility] Last Admin: 10/19/17 09:14 Dose: Not Given Nifedipine (Procardia Xl -) 90 mg PO BID [facility] Last Admin: 10/19/17 21:06 Dose: 90 mg Ondansetron HCl (Zofran Injection) 4 mg IVPUSH Q6H PRN PRN Reason: NAUSEA AND/OR VOMITING Oxycodone HCl (Roxicodone -) 5 mg PO Q4H PRN PRN Reason: PAIN LEVEL 1-5 Stop: 10/20/17 16:15 Last Admin: 10/20/17 09:41 Dose: 5 mg Promethazine HCl (Phenergan Injection -) 12.5 mg IVPUSH Q6H PRN PRN Reason: NAUSEA-FOR RESCUE AFTER 15 MIN Sevelamer Carbonate (Renvela -) 1,600 mg PO TIDCM [facility] Last Admin: 10/20/17 09:35 Dose: 1,600 mg Last Vital Signs Temp Pulse Resp BP Pulse Ox 97.4 F L 85 18 148/77 99 10/20/17 10:00 10/20/17 12:50 10/20/17 12:50 10/20/17 12:50 10/20/17 10:00 Lungs clear Heart reg abd soft nontender CBC, BMP 10/19/17 06:30 10/19/17 06:30 IMP esrd stable on hd Plan- no contraindication to d/c
[2017-10-20] MEDS: LISINOPRIL 10 MG TABLET (FP) PO SCH (15:20)
[2017-10-20] MEDS: VITAMIN B COMP W-C 1 EA TABLET PO SCH (15:20)
[2017-10-20] MEDS: NIFEdipine E.R. 90 MG TABLET (FP) PO SCH (15:21)
[2017-10-20] MEDS: LACOSAMIDE 50 MG TABLET PO SCH (15:21)
[2017-10-20 15:52] VITALS: BP 138/94; PULSE 81; TEMP 97.6
== END 2017-10-20 16:16 | disposition home or self-care (01) ==
LOC: JER 15:13 → JERBED 18:22 → J6S 20:26
PROVIDERS: ADMIT Hospitalist; ATTEND Nurse Practitioner Acute Care
PROC: 05HM33Z Insertion of Infusion Device into Right Internal Jugular Vein, Percutaneous Approach (ICD-10-PCS; principal; 2017-10-18)
PROC: B543ZZA Ultrasonography of Right Jugular Veins, Guidance (ICD-10-PCS; 2017-10-18)
DX: T82.49XA Other complication of vascular dialysis catheter, initial encounter (principal); Y82.8 Other medical devices associated with adverse incidents; Y92.9 Unspecified place or not applicable; I12.0 Hypertensive chronic kidney disease with stage 5 chronic kidney disease or end stage renal disease; N18.6 End stage renal disease; Z99.2 Dependence on renal dialysis; F84.0 Autistic disorder; G40.909 Epilepsy, unspecified, not intractable, without status epilepticus; Z88.1 Allergy status to other antibiotic agents; D64.9 Anemia, unspecified
CPT/HCPCS: 36415; 71045-TC-FY; 76937; 80048; 80053; 83735; 84100; 85025; 85027; 93005; 93010; 94760; 99283-25; G0378; J0885; J1644

== ENCOUNTER 2017-10-23 10:41 | Observation (INO) | payer OTHER, BC ==
[2017-10-23 10:50] VITALS: BMI 26.1
--- NOTE | 2017-10-23 11:28 | PDOC ---
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 El is a 22 yo male w/ pmh of HTN, ESRD (TTS, last dialysis Sunday; due today), and autism who presents for evaluation after pulling out port-a- cath placed in his back earlier today. The patient denies chest pain, shortness of breath, headache and dizziness. Denies fever, chills, nausea, vomit, diarrhea and constipation. Denies dysuria, frequency, urgency and hematuria. Allergies: Cefprozil Past History - Past Medical History Allergies/Adverse Reactions: Allergies Allergy/AdvReac Type Severity Reaction Status Date / Time cefprozil [From Cefzil] Allergy Intermediate Rash Verified 10/23/17 10:45 Home Medications: Ambulatory Orders Labetalol HCl [Normodyne -] 600 mg PO TID #90 tablet 10/09/17 Lacosamide [Vimpat -] 75 mg PO MOWEFR #30 tab MDD 1 10/09/17 Lacosamide [Vimpat -] 150 mg PO BID #60 tab MDD 2 10/09/17 Nifedipine ER [Procardia XL -] 90 mg PO BID #60 tab.er.24 10/09/17 Sevelamer Carbonate [Renvela -] 1,600 mg PO TIDCM #90 tab 10/09/17 Vitamin B Comp W-C [Nephro-Claudia -] 1 tablet PO DAILY #30 tablet 10/09/17 hydrALAZINE HCL [Apresoline -] 50 mg PO TID #90 tablet 10/09/17 Collagenase Clostridium Hist. [Santyl -] 1 applic TP DAILY #1 tube 10/11/17 Lisinopril [Prinivil] 10 mg PO DAILY #30 tablet 10/11/17 COPD: No DVT: No Dialysis: Yes GI Disorders: No Disorders: Yes (acute renal failure) HTN: Yes Seizures: Yes (SEIZURES) Other medical history: autism - Surgical History Abdominal Surgery: Yes (yogesh inguinal surgery) - Immunization History Td Vaccination: No - Suicide/Smoking/Psychosocial Hx Smoking Status: No Smoking History: Never smoked Years of Tobacco Use: 0 Have you smoked in the past 12 months: No Number of Cigarettes Smoked Daily: 0 Information on smoking cessation initiated: No Hx Alcohol Use: No Drug/Substance Use Hx: No Substance Use Type: None Hx Substance Use Treatment: No Review of Systems - Review of Systems Comments:: 10/23/17 12:14 GENERAL/CONSTITUTIONAL: No fever or chills. No weakness. HEAD, EYES, EARS, NOSE AND THROAT: No change in vision. No ear pain or discharge. No sore throat. CARDIOVASCULAR: No chest pain or shortness of breath RESPIRATORY: No cough, wheezing, or hemoptysis. GASTROINTESTINAL: No nausea, vomiting, diarrhea or constipation. GENITOURINARY: No dysuria, frequency, or change in urination. MUSCULOSKELETAL: No joint or muscle swelling or pain. No neck or back pain. SKIN: No rash NEUROLOGIC: No headache, vertigo, loss of consciousness, or change in strength/ sensation. ENDOCRINE: No increased thirst. No abnormal weight change HEMATOLOGIC/LYMPHATIC: No anemia, easy bleeding, or history of blood clots. ALLERGIC/IMMUNOLOGIC: No hives or skin allergy. *Physical Exam - Vital Signs Last Vital Signs Temp Pulse Resp BP Pulse Ox 80 18 124/71 100 10/23/17 10:45 10/23/17 10:45 10/23/17 10:45 10/23/17 10:45 - Physical Exam Comments: 10/23/17 12:14 GENERAL: Awake, alert, and oriented to baseline, in no acute distress HEAD: No signs of trauma, normocephalic, atraumatic EYES: PERRLA, EOMI, sclera anicteric, conjunctiva clear ENT: Auricles normal inspection, hearing grossly normal, nares patent, oropharynx clear without exudates. Moist mucosa NECK: Normal ROM, supple, no lymphadenopathy, JVD, or masses LUNGS: No distress, speaks full sentences, clear to auscultation bilaterally HEART: Regular rate and rhythm, normal S1 and S2, no murmurs, rubs or gallops, peripheral pulses normal and equal bilaterally. ABDOMEN: Soft, nontender, normoactive bowel sounds. No guarding, no rebound. No masses EXTREMITIES: +Port-o-cath fully removed from patient w/out and signs of active bleeding noted. Normal inspection, Normal range of motion, no edema. No clubbing or cyanosis. NEUROLOGICAL: +Patient non-verbal. No focal sensorimotor deficits. At baseline per mother. SKIN: Warm, Dry, normal turgor, no rashes or lesions noted. ED Treatment Course - LABORATORY CBC & Chemistry Diagram: 10/23/17 11:55 10/23/17 11:55 Medical Decision Making - Medical Decision Making 10/23/17 15:51 Mr. El is a 22 yo male w/ pmh as described who presents after pulling out port-a-cath earlier today. Nephrology and Vascular surgery consulted; would like patient admitted for re-placement and dialysis. Patient currently stable with labs grossly unconcerning as below. Patient ok per nephrology to hold off on dialysis until tomorrow. Also, patient's mother refused IV unless absolutely urgently necessary. Patient admitted for further evaluation. Laboratory Results - last 24 hr 10/23/17 10/23/17 10/23/17 11:55 11:55 11:55 WBC 8.2 D RBC 3.31 L Hgb 9.7 L Hct 29.2 L MCV 88.3 MCH 29.2 MCHC 33.1 RDW 14.8 Plt Count 349 MPV 7.3 L D Neutrophils % 59.3 Lymphocytes % 27.9 Monocytes % 7.9 Eosinophils % 4.7 H Basophils % 0.2 Nucleated RBC % 0 PT with INR 11.30 INR 1.00 Sodium 138 Potassium 4.8 Chloride 100 Carbon Dioxide 27 D Anion Gap 11 BUN 33 H D Creatinine 12.4 H* Creat Clearance w eGFR 5.07 Random Glucose 87 Calcium 9.2 Total Bilirubin 0.5 D AST 14 L ALT 14 D Alkaline Phosphatase 110 Total Protein 7.2 Albumin 3.4 Blood Type Antibody Screen 10/23/17 11:55 WBC RBC Hgb Hct MCV MCH MCHC RDW Plt Count MPV Neutrophils % Lymphocytes % Monocytes % Eosinophils % Basophils % Nucleated RBC % PT with INR INR Sodium Potassium Chloride Carbon Dioxide Anion Gap BUN Creatinine Creat Clearance w eGFR Random Glucose Calcium Total Bilirubin AST ALT Alkaline Phosphatase Total Protein Albumin Blood Type O POSITIVE Antibody Screen Negative *DC/Admit/Observation/Transfer Diagnosis at time of Disposition: Dialysis complication Qualifiers: Encounter type: initial encounter Qualified Code(s): T82.9XXA - Unspecified complication of cardiac and vascular prosthetic device, implant and graft, initial encounter - Discharge Dispostion Decision to Admit order: Yes - Referrals Referrals: Yanick Jacobson MD [Primary Care Provider] - - Patient Instructions - Post Discharge Activity
--- NOTE | 2017-10-23 11:32 | PDOC ---
Attending Attestation - Resident Resident Name: Jonh Ruiz - HPI HPI: 10/23/17 12:56 Pt presents to the ED after pulling out his permacath. History of ESRD on HD, last HD was Sunday. Patient is autistic and non verbal, and appears to be at his baseline mental status, as per his mother. 10/23/17 12:57 - Physicial Exam PE: 10/23/17 13:02 Agree with resident exam. Permacath has been removed. Patient is non verbal, which is his baseline. Does not appear to be in any distress. - Medical Decision Making 10/23/17 13:02 PT presents to the ED after pulling out his permacath. Last HD was Sunday. Case discussed with Dr. Velasquez. Will check labs and CXR, discuss case with vascular surgery and likely admit if unable to have permacath placed today.
[2017-10-23 12:06] LABS: BASO % 0.2 % (0-2.0); EOS % 4.7 % (0-4.5); HEMATOCRIT 29.2 % (35.4-49); HEMOGLOBIN 9.7 GM/dL (11.7-16.9); LYMPH % 27.9 % (8-40); MCH 29.2 pg (25.7-33.7); MCHC 33.1 g/dl (32.0-35.9); MEAN CELL VOLUME 88.3 fl (80-96); MEAN PLT VOLUME 7.3 fl (7.5-11.1); MONO % 7.9 % (3.8-10.2); NEUT % 59.3 % (42.8-82.8); PLATELET COUNT 349 K/MM3 (134-434); RBC 3.31 M/mm3 (4.00-5.60); RDW 14.8 % (11.9-15.9); WHITE BLOOD COUNT 8.2 K/mm3 (4.0-10.0)
[2017-10-23 12:27] LABS: PROTHROMBIN TIME (PATIENT) 11.3 SEC (9.7-13.0)
[2017-10-23 12:36] LABS: ALBUMIN 3.4 g/dl (3.4-5.0); ANION GAP 11 (8-16); BILIRUBIN,TOTAL 0.5 mg/dL (0.2-1.0); BLOOD UREA NITROGEN 33 mg/dL (7-18); CALCIUM 9.2 mg/dL (8.5-10.1); CHLORIDE 100 mmol/L (98-107); CO2 27 mmol/L (21-32); GLUCOSE,RANDOM 87 mg/dL (74-106); POTASSIUM 4.8 mmol/L (3.5-5.1); SGOT/AST 14 U/L (15-37); SGPT/ALT 14 U/L (12-78); SODIUM 138 mmol/L (136-145); TOT PROT 7.2 g/dl (6.4-8.2)
[2017-10-23 12:42] LABS: ALK PHOS 110 U/L (45-117)
[2017-10-23 13:06] LABS: CREATININE 12.4 mg/dL (0.7-1.3)
--- NOTE | 2017-10-23 13:18 | CONSULT ---
Consult Consult Specialty:: Nephrology Reason for Consultation:: ESRD - History of Present Illness Chief Complaint: pt pulled out HD catheter History of Present Illness: Pt is a 22 year old male with pmhx of ESRD, HTN, autism and anemia who presents to the ER after pulling his permacath out. He had the permacath recently placed. He appears comfortable and is at baseline. His mother at bedside. - History Source History Provided By: Family Member - Past Medical History HEMODIALYSIS RN: Yes: Other (autism) Cardio/Vascular: Yes: HTN Pulmonary: Yes: Other (pleural effusion) Renal/: Yes: Renal Inusuff, Hemodialysis - Past Surgical History Past Surgical History: Yes: AV Fistula/Graft, Hernia Repair - Alcohol/Substance Use Hx Alcohol Use: No - Smoking History Smoking history: Never smoked Have you smoked in the past 12 months: No Aproximately how many cigarettes per day: 0 Home Medications - Allergies Allergies/Adverse Reactions: Allergies Allergy/AdvReac Type Severity Reaction Status Date / Time cefprozil [From Cefzil] Allergy Intermediate Rash Verified 10/23/17 10:45 - Home Medications Home Medications: Ambulatory Orders Labetalol HCl [Normodyne -] 600 mg PO TID #90 tablet 10/09/17 Lacosamide [Vimpat -] 75 mg PO MOWEFR #30 tab MDD 1 10/09/17 Lacosamide [Vimpat -] 150 mg PO BID #60 tab MDD 2 10/09/17 Nifedipine ER [Procardia XL -] 90 mg PO BID #60 tab.er.24 10/09/17 Sevelamer Carbonate [Renvela -] 1,600 mg PO TIDCM #90 tab 10/09/17 Vitamin B Comp W-C [Nephro-Claudia -] 1 tablet PO DAILY #30 tablet 10/09/17 hydrALAZINE HCL [Apresoline -] 50 mg PO TID #90 tablet 10/09/17 Collagenase Clostridium Hist. [Santyl -] 1 applic TP DAILY #1 tube 10/11/17 Lisinopril [Prinivil] 10 mg PO DAILY #30 tablet 10/11/17 Family Disease History - Family Disease History Family Disease History: Other: Father (htn) Review of Systems Unable to obtain ROS, reason: follow up, no change Physical Exam Vital Signs: Vital Signs Temperature Pulse Rate 80 10/23/17 10:45 Respiratory Rate 18 10/23/17 10:45 Blood Pressure 124/71 10/23/17 10:45 O2 Sat by Pulse Oximetry (%) 100 10/23/17 10:45 Constitutional: Yes: Calm Eyes: Yes: Conjunctiva Clear HENT: Yes: Atraumatic Neck: Yes: Supple Cardiovascular: Yes: S1, S2 Respiratory: Yes: CTA Bilaterally Gastrointestinal: Yes: Soft Renal/: Yes: WNL Musculoskeletal: Yes: WNL Extremities: Yes: WNL Neurological: Yes: Pre-Existing Deficit Labs: CBC, BMP 10/23/17 11:55 10/23/17 11:55 Problem List - Problems (1) ESRD (end stage renal disease) Code(s): N18.6 - END STAGE RENAL DISEASE (2) Anemia Code(s): D64.9 - ANEMIA, UNSPECIFIED (3) Complication, dialysis catheter clot or failure Code(s): [id number] - Assessment/Plan Impression 1. ESRD 2. autism 3. HTN 4. anemia 5. epilepsy 6. hx of pleural effusions 7. pulled permacath Plan - follow cxr - called vascular surgery for access - will cornelia dialyze tomorrow - discussed plan with pt mother - disscussed with ER - resume home meds Dr Velasquez
--- NOTE | 2017-10-23 16:44 | HP ---
CHIEF COMPLAINT: pulled out permacath PCP: Yanick Jacobson HISTORY OF PRESENT ILLNESS: This is a 22 year old male with a significant past medical history of autism, HTN, ESRD, seizures presented to the ED after pulling out his permacath. Recent admission on 10/18 for the same thing. The patient is a poor historian and does not have any meaningful speech. The patient's mom is at the bedside. She denies any symptoms for the patient including difficulty breathing, shortness of breath , fever, pain. ER course was notable for: (1) pulse 80, BP 124/71, resp 18, O2 100% on RA (2) Hgb 9.7 (3) Cr 12.4 (4) Chest X-ray: s/p catheter removal with cardiomegaly and small pleural effusion Recent Travel: denies PAST MEDICAL HISTORY: as above PAST SURGICAL HISTORY: as above Social History: Smoking: denies Alcohol: denies Drugs: denies Family History: Allergies cefprozil [From Cefzil] Allergy (Intermediate, Verified 10/23/17 10:45) Rash HOME MEDICATIONS: Home Medications Medication Instructions Recorded Labetalol HCl [Normodyne -] 600 mg PO TID #90 tablet 10/09/17 Lacosamide [Vimpat -] 75 mg PO MOWEFR #30 tab MDD 1 10/09/17 Lacosamide [Vimpat -] 150 mg PO BID #60 tab MDD 2 10/09/17 Nifedipine ER [Procardia XL -] 90 mg PO BID #60 tab.er.24 10/09/17 Sevelamer Carbonate [Renvela -] 1,600 mg PO TIDCM #90 tab 10/09/17 Vitamin B Comp W-C [Nephro-Claudia -] 1 tablet PO DAILY #30 tablet 10/09/17 hydrALAZINE HCL [Apresoline -] 50 mg PO TID #90 tablet 10/09/17 Collagenase Clostridium Hist. 1 applic TP DAILY #1 tube 10/11/17 [Santyl -] Lisinopril [Prinivil] 10 mg PO DAILY #30 tablet 10/11/17 REVIEW OF SYSTEMS CONSTITUTIONAL: Patient removed permacath this morning. Absent: fever, diaphoresis, generalized weakness, malaise, loss of appetite, weight change HEENT: Absent: rhinorrhea, nasal congestion, throat swelling, difficulty swallowing, mouth swelling, ear pain, eye pain, visual changes CARDIOVASCULAR: Absent: chest pain, syncope, peripheral edema RESPIRATORY: Absent: cough, shortness of breath, dyspnea with exertion, orthopnea, wheezing, stridor, hemoptysis GASTROINTESTINAL: Absent: abdominal pain, abdominal distension, nausea, vomiting, diarrhea, constipation, melena, hematochezia GENITOURINARY: Absent: hematuria, flank pain, genital pain MUSCULOSKELETAL: Absent: myalgia, arthralgia, joint swelling, back pain, neck pain SKIN: Absent: rash, itching, pallor HEMATOLOGIC/IMMUNOLOGIC: Absent: easy bleeding, easy bruising, lymphadenopathy, frequent infections ENDOCRINE: Absent: unexplained weight gain, unexplained weight loss, heat intolerance, cold intolerance NEUROLOGIC: Absent: headache, unsteady gait, seizure, mental status changes, bladder or bowel incontinence PSYCHIATRIC: Absent: anxiety, depression, suicidal or homicidal ideation, hallucinations. PHYSICAL EXAMINATION Vital Signs - 24 hr 10/23/17 10/23/17 10:45 13:27 Pulse Rate 80 Respiratory 18 Rate Blood Pressure 124/71 O2 Sat by Pulse 100 98 Oximetry (%) GENERAL: Awake, alert, and fully oriented, in no acute distress. HEAD: Normal with no signs of trauma. EYES: Pupils equal, round and reactive to light, extraocular movements intact, sclera anicteric, conjunctiva clear. No lid lag. EARS, NOSE, THROAT: Ears normal, nares patent, oropharynx clear without exudates. Moist mucous membranes. NECK: Normal range of motion, supple without lymphadenopathy, JVD, or masses. LUNGS: Breath sounds equal, clear to auscultation bilaterally. No wheezes, and no crackles. No accessory muscle use. HEART: Regular rate and rhythm, normal S1 and S2 without murmur, rub or gallop. ABDOMEN: Soft, nontender, not distended, normoactive bowel sounds, no guarding, no rebound, no masses. No hepatomegaly or splenomegaly. MUSCULOSKELETAL: Normal range of motion at all joints. No bony deformities or tenderness. No CVA tenderness. UPPER EXTREMITIES: 2+ pulses, warm, well-perfused. No cyanosis. No clubbing. No peripheral edema. LOWER EXTREMITIES: 2+ pulses, warm, well-perfused. No calf tenderness. No peripheral edema. NEUROLOGICAL: Cranial nerves II-XII intact. Normal speech. Normal gait. PSYCHIATRIC: Cooperative. Good eye contact. Appropriate mood and affect. SKIN: Warm, dry, normal turgor, no rashes or lesions noted, normal capillary refill. Laboratory Results - last 24 hr 10/23/17 10/23/17 10/23/17 11:55 11:55 11:55 WBC 8.2 D RBC 3.31 L Hgb 9.7 L Hct 29.2 L MCV 88.3 MCH 29.2 MCHC 33.1 RDW 14.8 Plt Count 349 MPV 7.3 L D Neutrophils % 59.3 Lymphocytes % 27.9 Monocytes % 7.9 Eosinophils % 4.7 H Basophils % 0.2 Nucleated RBC % 0 PT with INR 11.30 INR 1.00 Sodium 138 Potassium 4.8 Chloride 100 Carbon Dioxide 27 D Anion Gap 11 BUN 33 H D Creatinine 12.4 H* Creat Clearance w eGFR 5.07 Random Glucose 87 Calcium 9.2 Total Bilirubin 0.5 D AST 14 L ALT 14 D Alkaline Phosphatase 110 Total Protein 7.2 Albumin 3.4 Blood Type Antibody Screen 10/23/17 11:55 WBC RBC Hgb Hct MCV MCH MCHC RDW Plt Count MPV Neutrophils % Lymphocytes % Monocytes % Eosinophils % Basophils % Nucleated RBC % PT with INR INR Sodium Potassium Chloride Carbon Dioxide Anion Gap BUN Creatinine Creat Clearance w eGFR Random Glucose Calcium Total Bilirubin AST ALT Alkaline Phosphatase Total Protein Albumin Blood Type O POSITIVE Antibody Screen Negative Assessment: This is a 22 year old male with a significant past medical history of autism, HTN, ESRD, seizures presented to the ED after pulling out his permacath. Plan: 1) ESRD: - Patient removed his permacath this morning - For permacath placement with Dr. Jameson tomorrow - For HD tomorrow after permacath placement - Appreciate nephrology consult 2) HTN - Resume Hydralazine - Resume Labetolol - Resume Lisinopril - Resume Nifedipine 3) Seizures - Continue Vimpat 4) F/E/N: - Renal diet - NPO after midnight 5) Prophylaxis: - Hold all chemical DVT prophylaxis for permacath placement tomorrow 6) Dispo: - Once permacath placed and dialyzed CODE STATUS: FULL CODE Visit type - Emergency Visit Emergency Visit: Yes Care time: The patient presented to the Emergency Department on the above date and was hospitalized for further evaluation of their emergent condition. - New Patient This patient is new to me today: Yes Date on this admission: 10/23/17 - Critical Care Critical Care patient: No Hospitalist Screening - Colonoscopy Questionnaire Colonoscopy Questionnaire: Colonoscopy Questionnaire - Patient: 50 - 75 years old and never had a screening colonoscopy: No History of colon or rectal polyps, or CA: No History of IBD, Crohn's disease or UC: No History of abdominal radiation therapy as a child: No - Relative: 1 with colon or rectal CA, or polyps at age 60 or younger: No Colon or rectal CA diagnosed at age 45 or younger: No Multiple relatives with colon or rectal CA: No - Outcome: Screening Result: Negative Screen
[2017-10-23] MEDS: SEVELAMER CARBONATE 800 MG TAB (FP) PO SCH (18:02)
[2017-10-24] MEDS: LABETALOL HCL 200 MG TABLET (FP) PO SCH ×4 (00:02→23:54)
[2017-10-24] MEDS: LACOSAMIDE 50 MG TABLET PO SCH ×3 (00:03→23:56)
[2017-10-24] MEDS: hydrALAZINE HCL 50 MG TABLET (FP) PO SCH ×4 (00:05→23:53)
[2017-10-24] MEDS ORDERED: hydrALAZINE HCL 25 MG TABLET (FP) ONE ×2 (02:25→14:10)
[2017-10-24] MEDS ORDERED: LACOSAMIDE 50 MG TABLET PO ONE ×2 (02:25→09:35)
[2017-10-24] MEDS ORDERED: LABETALOL HCL 100 MG TABLET (FP) ONE (02:26)
[2017-10-24] MEDS: NIFEdipine E.R. 90 MG TABLET (FP) PO SCH ×3 (02:50→23:54)
[2017-10-24] MEDS: SEVELAMER CARBONATE 800 MG TAB (FP) PO SCH ×2 (08:20→12:02)
[2017-10-24 09:23] LABS: ANION GAP 15 (8-16); CALCIUM 9.3 mg/dL (8.5-10.1); CHLORIDE 101 mmol/L (98-107); CO2 23 mmol/L (21-32); GLUCOSE,RANDOM 82 mg/dL (74-106); POTASSIUM 5.5 mmol/L (3.5-5.1); SODIUM 139 mmol/L (136-145)
[2017-10-24 09:55] LABS: BLOOD UREA NITROGEN 46 mg/dL (7-18)
[2017-10-24] MEDS: LISINOPRIL 10 MG TABLET (FP) PO SCH (09:55)
[2017-10-24] MEDS: VITAMIN B COMP W-C 1 EA TABLET PO SCH (09:55)
[2017-10-24] MEDS: COLLAGENASE CLOSTRIDIUM HIST. 30 GRAMS TUBE TP SCH (09:57)
[2017-10-24 10:08] LABS: CREATININE 15.1 mg/dL (0.7-1.3)
--- NOTE | 2017-10-24 10:50 | PN ---
Progress Note (short form) - Note Progress Note: Subjective: The patient was seen at the bedside, he appears comfortable and is watching his ipad Current Medications Generic Name Dose Route Start Last Admin Trade Name Freq PRN Reason Stop Dose Admin Collagenase 1 applic 10/24/17 10:00 10/24/17 09:57 Santyl - TP Not Given DAILY LANE Epoetin Mir 7,000 unit 10/24/17 11:03 Epogen - IVPUSH 10/24/17 11:04 ONCE ONE Hydralazine HCl 50 mg 10/23/17 22:00 10/24/17 09:54 Apresoline - PO [address] Administration Sodium Chloride 250 mls @ 3,000 mls/hr 10/24/17 11:03 Normal Saline - IV 10/25/17 11:03 PRN PRN Hypotension during Dialysis Labetalol HCl 600 mg 10/23/17 22:00 10/24/17 09:55 Normodyne - PO [address] Administration Lacosamide 75 mg 10/24/17 16:30 Vimpat - PO [id number]@1630 LANE Lacosamide 150 mg 10/23/17 22:00 10/24/17 09:55 Vimpat - PO [address] Administration Lisinopril 10 mg 10/24/17 10:00 10/24/17 09:55 Prinivil PO [address] Administration Multivit/Ca Carb/B Cmplx/FA/Prenat 1 tablet 10/24/17 10:00 10/24/17 09:55 Nephro-Claudia - PO Not Given DAILY LANE Nifedipine 90 mg 10/23/17 22:00 10/24/17 09:55 Procardia Xl - PO [address] Administration Sevelamer Carbonate 1,600 mg 10/23/17 17:30 10/24/17 08:20 Renvela - PO Not Given TIDCM LANE Objective: Vital Signs Period Temp Pulse Resp BP Sys/Mora Pulse Ox Last 24 Hr 97.5 F 78 16 117/56 97-98 Physical Exam: Patient would not allow and exam Old permacath sites visualized and are in stages of healing CBCD WBC 8.2 K/mm3 (4.0-10.0) D 10/23/17 11:55 RBC 3.31 M/mm3 (4.00-5.60) L 05/29/18 11:55 Hgb 9.7 GM/dL (11.7-16.9) L 10/23/17 11:55 Hct 29.2 % (35.4-49) L 10/23/17 11:55 MCV 88.3 fl (80-96) 10/23/17 11:55 MCHC 33.1 g/dl (32.0-35.9) 10/23/17 11:55 RDW 14.8 % (11.9-15.9) 10/23/17 11:55 Plt Count 349 K/MM3 (134-434) 10/23/17 11:55 MPV 7.3 fl (7.5-11.1) L D 10/23/17 11:55 CMP Sodium 139 mmol/L (136-145) 10/24/17 07:43 Potassium 5.5 mmol/L (3.5-5.1) H 10/24/17 07:43 Chloride 101 mmol/L (98-107) 10/24/17 07:43 Carbon Dioxide 23 mmol/L (21-32) 10/24/17 07:43 Anion Gap 15 (8-16) 10/24/17 07:43 BUN 46 mg/dL (7-18) H D 10/24/17 07:43 Creatinine 15.1 mg/dL (0.7-1.3) H* D 10/24/17 07:43 Creat Clearance w eGFR 5.07 (>60) 10/23/17 11:55 Random Glucose 82 mg/dL (74-106) 10/24/17 07:43 Calcium 9.3 mg/dL (8.5-10.1) 10/24/17 07:43 Total Bilirubin 0.5 mg/dL (0.2-1.0) D 10/23/17 11:55 AST 14 U/L (15-37) L 10/23/17 11:55 ALT 14 U/L (12-78) D 10/23/17 11:55 Alkaline Phosphatase 110 U/L (45-117) 10/23/17 11:55 Total Protein 7.2 g/dl (6.4-8.2) 10/23/17 11:55 Albumin 3.4 g/dl (3.4-5.0) 10/23/17 11:55 Assessment: This is a 22 year old male with a significant past medical history of autism, HTN, ESRD, seizures presented to the ED after pulling out his permacath. Plan: 1) ESRD: - Patient removed his permacath yesterday - For permacath placement with Dr. Jameson today - For HD today after permacath placement - Appreciate nephrology consult 2) HTN - Continue Hydralazine - Continue Labetolol - Continue Lisinopril - Continue Nifedipine 3) Seizures - Continue Vimpat 4) F/E/N: - NPO for Permacath placement today 5) Prophylaxis: - Hold all chemical DVT prophylaxis for permacath placement today 6) Dispo: - Once permacath placed and dialyzed CODE STATUS: FULL CODE Visit type - Emergency Visit Emergency Visit: Yes ED Registration Date: 10/23/17 Care time: The patient presented to the Emergency Department on the above date and was hospitalized for further evaluation of their emergent condition. - New Patient This patient is new to me today: No - Critical Care Critical Care patient: No
[2017-10-24] MEDS ORDERED: SODIUM POLYSTYRENE SULFONATE 15 GM/60 ML BOTTLE PO ONE (11:03)
[2017-10-24] MEDS ORDERED: EPOETIN ALFA 2,000 UNIT/1 ML VIAL IVPUSH ONE (11:03)
--- NOTE | 2017-10-24 12:26 | PN ---
Progress Note, Physician History of Present Illness: Pt seen and examined at bedside. He is awake and appears comfortable. He is schedule for permacath today. - Current Medication List Current Medications: Active Medications Collagenase (Santyl -) 1 applic TP DAILY [facility] Last Admin: 10/24/17 09:57 Dose: Not Given Epoetin Mir (Epogen -) 7,000 unit IVPUSH ONCE ONE Stop: 10/24/17 11:04 Hydralazine HCl (Apresoline -) 50 mg PO TID [facility] Last Admin: 10/24/17 09:54 Dose: 50 mg Sodium Chloride (Normal Saline -) 250 mls @ 3,000 mls/hr IV PRN PRN PRN Reason: Hypotension during Dialysis Stop: 10/25/17 11:03 Labetalol HCl (Normodyne -) 600 mg PO TID [facility] Last Admin: 10/24/17 09:55 Dose: 600 mg Lacosamide (Vimpat -) 75 mg PO [id number]@1630 [facility] Lacosamide (Vimpat -) 150 mg PO BID [facility] Last Admin: 10/24/17 09:55 Dose: 150 mg Lisinopril (Prinivil) 10 mg PO DAILY [facility] Last Admin: 10/24/17 09:55 Dose: 10 mg Multivit/Ca Carb/B Cmplx/FA/Prenat (Nephro-Claudia -) 1 tablet PO DAILY [facility] Last Admin: 10/24/17 09:55 Dose: Not Given Nifedipine (Procardia Xl -) 90 mg PO BID [facility] Last Admin: 10/24/17 09:55 Dose: 90 mg Sevelamer Carbonate (Renvela -) 1,600 mg PO TIDCM [facility] Last Admin: 10/24/17 08:20 Dose: Not Given - Objective Vital Signs: Vital Signs Temperature 97.5 F L 10/24/17 07:28 Pulse Rate 78 10/24/17 07:28 Respiratory Rate 16 10/24/17 07:28 Blood Pressure 117/56 10/24/17 07:28 O2 Sat by Pulse Oximetry (%) 97 10/24/17 07:28 Constitutional: Yes: Calm Eyes: Yes: Conjunctiva Clear HENT: Yes: Atraumatic Neck: Yes: Supple Cardiovascular: Yes: S1, S2 Respiratory: Yes: CTA Bilaterally Gastrointestinal: Yes: Soft Genitourinary: Yes: Incontinence Musculoskeletal: Yes: WNL Edema: No Integumentary: Yes: WNL Neurological: Yes: Pre-Existing Deficit Labs: CBC, BMP 10/23/17 11:55 10/24/17 07:43 INR, PTT INR 1.00 (0.82-1.09) 10/23/17 11:55 Problem List - Problems (1) ESRD (end stage renal disease) Code(s): N18.6 - END STAGE RENAL DISEASE (2) Anemia Code(s): D64.9 - ANEMIA, UNSPECIFIED (3) Complication, dialysis catheter clot or failure Code(s): PXN1918 - Assessment/Plan Current Medications Generic Name Dose Route Start Last Admin Trade Name Freq PRN Reason Stop Dose Admin Collagenase 1 applic 10/24/17 10:00 10/24/17 09:57 Santyl - TP Not Given DAILY LANE Epoetin Mir 7,000 unit 10/24/17 11:03 Epogen - IVPUSH 10/24/17 11:04 ONCE ONE Hydralazine HCl 50 mg 10/23/17 22:00 10/24/17 09:54 Apresoline - PO [address] Administration Sodium Chloride 250 mls @ 3,000 mls/hr 10/24/17 11:03 Normal Saline - IV 10/25/17 11:03 PRN PRN Hypotension during Dialysis Labetalol HCl 600 mg 10/23/17 22:00 10/24/17 09:55 Normodyne - PO [address] Administration Lacosamide 75 mg 10/24/17 16:30 Vimpat - PO MoWeFr@1630 LANE Lacosamide 150 mg 10/23/17 22:00 10/24/17 09:55 Vimpat - PO [address] Administration Lisinopril 10 mg 10/24/17 10:00 10/24/17 09:55 Prinivil PO [address] Administration Multivit/Ca Carb/B Cmplx/FA/Prenat 1 tablet 10/24/17 10:00 10/24/17 09:55 Nephro-Claudia - PO Not Given DAILY [facility] Nifedipine 90 mg 10/23/17 22:00 10/24/17 09:55 Procardia Xl - PO [address] Administration Sevelamer Carbonate 1,600 mg 10/23/17 17:30 10/24/17 08:20 Renvela - PO Not Given TIDCM LANE Impression 1. ESRD 2. autism 3. HTN 4. anemia 5. epilepsy 6. hx of pleural effusions 7. pulled permacath 8. hyperkalemia Plan - permacath today - kayexylate for hyperkalemia - HD today after catheter - fistula with thrill and bruit but not mature yet for HD - discussed plan with pt mother Dr Velasquez
[2017-10-24] MEDS ORDERED: SODIUM POLYSTYRENE SULFONATE 15 GM/60 ML BOTTLE ONE (12:28)
[2017-10-24] MEDS ORDERED: HEPARIN NA (PORCINE) 5,000 UNITS/ML 1ML VIAL ONE (16:11)
[2017-10-24] MEDS ORDERED: LIDOCAINE HCL 1%, 10 MG/ML (20ML VIAL) ONE (16:11)
[2017-10-24] MEDS ORDERED: KETAMINE HCL 200 MG/20 ML VIAL ONE (16:28)
[2017-10-24] MEDS ORDERED: LACOSAMIDE 50 MG TABLET PO SCH (16:30)
[2017-10-24] MEDS ORDERED: PROPOFOL 20 ML ONE (17:00)
[2017-10-24] MEDS ORDERED: MIDAZOLAM HCL 2 MG/2 ML SINGLE DOSE VIAL ONE (17:02)
[2017-10-24] MEDS ORDERED: CLINDAMYCIN PHOSPHATE 600 MG/4 ML VIAL ONE (17:26)
[2017-10-24] MEDS ORDERED: CLINDAMYCIN 600 MG PREMIX BAG IVPB ONE (17:30)
[2017-10-24] MEDS ORDERED: LIDOCAINE HCL 1%, 10 MG/ML (20ML VIAL) INF ONE (17:34)
[2017-10-24] MEDS ORDERED: ePHEDrine SULFATE 50 MG/1 ML AMPULE ONE (17:35)
[2017-10-24] MEDS ORDERED: DEXAMETHASONE SOD PHOSPHATE 4 MG/1 ML VIAL ONE (17:48)
--- NOTE | 2017-10-24 18:46 | OP ---
Operative Note - Note: Operative Date: 10/24/17 Pre-Operative Diagnosis: ESRD Operation: RIJV permacath insertion, exit site on back Findings: tip in RA Implants: 35 cm permacath Post-Operative Diagnosis: Same as Pre-op Surgeon: Kevin Jameson Anesthesia: General Specimens Removed: none Estimated Blood Loss (mls): 5
[2017-10-24] MEDS ORDERED: ONDANSETRON 4 MG/2 ML VIAL IVPUSH PRN (18:53)
[2017-10-24] MEDS ORDERED: SODIUM CHLORIDE 250 ML IV PRN (20:05)
--- NOTE | 2017-10-24 20:08 | OP ---
DATE OF OPERATION: 10/24/2017 PREOPERATIVE DIAGNOSIS: End-stage renal disease. POSTOPERATIVE DIAGNOSIS: End-stage renal disease. PROCEDURE PERFORMED: Ultrasound-guided access, right internal jugular vein PermCath insertion with exit site on back. SURGEON: Mavis Tijerina MD SUBSTITUTE NURSE: None. ESTIMATED BLOOD LOSS: 5 mL SPECIMEN: None. DESCRIPTION OF PROCEDURE: Patient was brought to the operating room. Patient's right neck and back were prepped and draped in usual sterile fashion after induction of general anesthesia and placing the patient prone. Right IJ vein was accessed under ultrasound guidance real-time visualization of needle using micropuncture set. An Amplatz wire was inserted through the catheter under x-ray guidance into the IVC. The tract was serially dilated, and a peel-away sheath was inserted. Counterincision was made on the patient's back. A 35-cm PermCath was tunneled with the counterincision to the puncture site. and wire were removed, and the PermCath was inserted. Peel-away sheath was peeled away. Tip was noted to be in the right atrium. Both ports flushed and aspirated easily and filled with concentrated heparin. The catheter was secured in multiple spots using 0 Ethibond. Two drain-type sutures were also placed. The puncture site and counterincision were closed using 3-0 Vicryl and 4-0 Monocryl. Dermabond applied to both. All counts correct at the end of the procedure. MAVIS TIJERINA M.D. [id number]
[2017-10-24] MEDS ORDERED: EPOETIN ALFA 4,000 UNIT, EPOETIN ALFA 3,000 UNIT IVPUSH ONE (20:15)
[2017-10-24 21:20] LABS: ANION GAP 11 (8-16); BLOOD UREA NITROGEN 35 mg/dL (7-18); CALCIUM 8.4 mg/dL (8.5-10.1); CHLORIDE 100 mmol/L (98-107); CO2 27 mmol/L (21-32); GLUCOSE,RANDOM 129 mg/dL (74-106); POTASSIUM 4.1 mmol/L (3.5-5.1); SODIUM 138 mmol/L (136-145)
[2017-10-24 21:26] LABS: CREATININE 11.4 mg/dL (0.7-1.3)
[2017-10-25] MEDS: hydrALAZINE HCL 50 MG TABLET (FP) PO SCH (06:57)
[2017-10-25] MEDS: LABETALOL HCL 200 MG TABLET (FP) PO SCH (06:57)
[2017-10-25 07:14] VITALS: TEMP 98.1
[2017-10-25] MEDS ORDERED: PT OWN MED DRAWER 7, Y5N ONE ×2 (08:34→09:25)
[2017-10-25] MEDS: SEVELAMER CARBONATE 800 MG TAB (FP) PO SCH (08:36)
[2017-10-25] MEDS: VITAMIN B COMP W-C 1 EA TABLET PO SCH (09:19)
[2017-10-25] MEDS: LISINOPRIL 10 MG TABLET (FP) PO SCH (09:19)
[2017-10-25] MEDS: LACOSAMIDE 50 MG TABLET PO SCH (09:19)
--- NOTE | 2017-10-25 09:42 | DS ---
Physical Examination Vital Signs: Vital Signs Temperature 98.1 F 10/25/17 06:00 Pulse Rate 78 10/25/17 06:00 Respiratory Rate 18 10/25/17 06:00 Blood Pressure 147/71 10/25/17 06:00 O2 Sat by Pulse Oximetry (%) 96 10/25/17 01:45 Labs: CBC, BMP 10/23/17 11:55 10/24/17 20:00 Discharge Summary Reason For Visit: DIALYSIS COMPLICATION; END STAGE RENAL DISEASE Current Active Problems Dialysis complication (Acute) ESRD (end stage renal disease) (Acute) Condition: Improved - Instructions Diet, Activity, Other Instructions: Please return to the ED with new, persistent, or worsening symptoms. Please follow-up with providers as indicated. You are to report to your regularly scheduled dialysis session today. Please call Dr. Velasquez if you have any questions regarding dialysis. Referrals: Yanick Jacobson MD [Primary Care Provider] - 1 Week Rani Velasquez MD [Staff Physician] - Disposition: HOME - Home Medications Comprehensive Discharge Medication List: Ambulatory Orders Labetalol HCl [Normodyne -] 600 mg PO TID #90 tablet 10/09/17 Lacosamide [Vimpat -] 75 mg PO MOWEFR #30 tab MDD 1 10/09/17 Lacosamide [Vimpat -] 150 mg PO BID #60 tab MDD 2 10/09/17 Nifedipine ER [Procardia XL -] 90 mg PO BID #60 tab.er.24 10/09/17 Sevelamer Carbonate [Renvela -] 1,600 mg PO TIDCM #90 tab 10/09/17 Vitamin B Comp W-C [Nephro-Claudia -] 1 tablet PO DAILY #30 tablet 10/09/17 hydrALAZINE HCL [Apresoline -] 50 mg PO TID #90 tablet 10/09/17 Collagenase Clostridium Hist. [Santyl -] 1 applic TP DAILY #1 tube 10/11/17 Lisinopril [Prinivil] 10 mg PO DAILY #30 tablet 10/11/17
[2017-10-25] MEDS: NIFEdipine E.R. 90 MG TABLET (FP) PO SCH (10:31)
[2017-10-25] MEDS: COLLAGENASE CLOSTRIDIUM HIST. 30 GRAMS TUBE TP SCH (10:32)
[2017-10-25 10:42] VITALS: BP 134/84; PULSE 80
== END 2017-10-25 10:42 | disposition home or self-care (01) ==
LOC: JER 10:41 → JERBED 15:54 → J5S 10-24 23:28
PROVIDERS: ADMIT Internal Medicine; ATTEND Registered Nurse
PROC: 05HM33Z Insertion of Infusion Device into Right Internal Jugular Vein, Percutaneous Approach (ICD-10-PCS; principal; 2017-10-23)
PROC: B543ZZA Ultrasonography of Right Jugular Veins, Guidance (ICD-10-PCS; 2017-10-23)
DX: T82.49XA Other complication of vascular dialysis catheter, initial encounter (principal); Y82.8 Other medical devices associated with adverse incidents; I12.0 Hypertensive chronic kidney disease with stage 5 chronic kidney disease or end stage renal disease; N18.6 End stage renal disease; Z99.2 Dependence on renal dialysis; F84.0 Autistic disorder; G40.909 Epilepsy, unspecified, not intractable, without status epilepticus; D64.9 Anemia, unspecified
CPT/HCPCS: 36415; 71045-TC-FY; 76000-TC-FY; 76937; 80048; 80053; 85025; 85610; 86850; 86900; 86901; 94760; 99285-25; G0378; J0885; J1644

== ENCOUNTER 2017-10-27 15:04 | Inpatient (IN) | payer OTHER, BC ==
[2017-10-27 15:24] VITALS: BMI 25.8
--- NOTE | 2017-10-27 15:41 | PDOC ---
History of Present Illness - General Stated Complaint: CATHETER PROBLEM Time Seen by Provider: 10/27/17 15:10 History Source: Patient Exam Limitations: Other (Pt is nonverbal) - History of Present Illness Initial Comments: 10/27/17 15:39 The patient is a 22M with a PMH of HTN, ESRD (TTS, last dialysis Sunday; due today), and autism who presents to the ER from his dialysis center after standing up during dialysis and ripping off the end of his port. The patient otherwise feels well. He was in dialysis for .5 hour today (usually gets 3.5 hours dialysis). He denies any acute complaints including fever, chills, nausea , vomiting, diarrhea, constipation. Past History - Past Medical History Allergies/Adverse Reactions: Allergies Allergy/AdvReac Type Severity Reaction Status Date / Time cefprozil [From Cefzil] Allergy Intermediate Rash Verified 10/23/17 10:45 Home Medications: Ambulatory Orders Labetalol HCl [Normodyne -] 600 mg PO TID #90 tablet 10/09/17 Lacosamide [Vimpat -] 75 mg PO MOWEFR #30 tab MDD 1 10/09/17 Lacosamide [Vimpat -] 150 mg PO BID #60 tab MDD 2 10/09/17 Nifedipine ER [Procardia XL -] 90 mg PO BID #60 tab.er.24 10/09/17 Sevelamer Carbonate [Renvela -] 1,600 mg PO TIDCM #90 tab 10/09/17 Vitamin B Comp W-C [Nephro-Claudia -] 1 tablet PO DAILY #30 tablet 10/09/17 hydrALAZINE HCL [Apresoline -] 50 mg PO TID #90 tablet 10/09/17 Collagenase Clostridium Hist. [Santyl -] 1 applic TP DAILY #1 tube 10/11/17 Lisinopril [Prinivil] 10 mg PO DAILY #30 tablet 10/11/17 Asthma: No Cancer: No Cardiac Disorders: No CVA: No COPD: No CHF: No DVT: No Dementia: No Diabetes: No Dialysis: Yes GI Disorders: No Disorders: Yes (acute renal failure) HTN: Yes Liver Disease: No Seizures: Yes (SEIZURES) Thyroid Disease: No - Surgical History Abdominal Surgery: Yes (yogesh inguinal surgery) - Immunization History Td Vaccination: No - Suicide/Smoking/Psychosocial Hx Smoking Status: No Smoking History: Never smoked Years of Tobacco Use: 0 Have you smoked in the past 12 months: No Number of Cigarettes Smoked Daily: 0 Information on smoking cessation initiated: No Hx Alcohol Use: No Drug/Substance Use Hx: No Substance Use Type: None Hx Substance Use Treatment: No Review of Systems - Review of Systems Able to Perform ROS?: No (Nonverbal ) Is the patient limited Macedonian proficient: No *Physical Exam - Vital Signs Last Vital Signs Temp Pulse Resp BP Pulse Ox 97.8 F 82 18 142/79 96 10/27/17 15:19 10/27/17 15:19 10/27/17 15:19 10/27/17 15:19 10/27/17 15:19 - Physical Exam Comments: 10/27/17 16:53 GENERAL: Well developed, well nourished. Awake and alert. No acute distress. HEENT: Normocephalic, atraumatic. Hearing grossly normal. Moist mucous membranes. PERRLA, EOMI. No conjunctival pallor. Sclera are non-icteric. NECK: Supple. Full ROM. CARDIOVASCULAR: Regular rate and rhythm. No murmurs, rubs, or gallops. PULMONARY: No evidence of respiratory distress. Lungs clear to auscultation bilaterally. No wheezing, rales or rhonchi. ABDOMINAL: Soft. Non-tender. Non-distended. No rebound or guarding. No organomegaly. Normoactive bowel sounds. GENITOURINARY: No CVA tenderness bilaterally. MUSCULOSKELETAL: Permacath present on R back. Scars present from previous permacaths. Permacath with one port missing from clamp on. Normal range of motion at all joints. No bony deformities or tenderness. EXTREMITIES: No cyanosis. No clubbing. No edema. No calf tenderness or swelling. SKIN: Warm and dry. Normal capillary refill. No rashes. No jaundice. NEUROLOGICAL: Alert, awake, appropriate. Cranial nerves 2-12 intact. Normal speech. Gait is normal without ataxia. PSYCHIATRIC: Cooperative. Good eye contact. Appropriate mood and affect. ED Treatment Course - LABORATORY CBC & Chemistry Diagram: 10/27/17 18:00 10/27/17 18:00 Medical Decision Making - Medical Decision Making 10/27/17 17:02 The patient is a 22M with a PMH of HTN, ESRD who presents from dialysis after ripping his permacath when he was slipping down the chair. The patient is not cooperative with the exam. I have called Dr. Kevin Jameson and he states he will call back when he thinks of a result. Pending call back. Will give 0.5 ativan so that we can take bloods. Father is at bedside. Agrees with plan. 10/27/17 17:51 Dr. Jameson changed the tip of the catheter at bedside. He will discuss the case with Dr. Beach for dispo as pt needs dialysis. Pt required another 0.5 ativan for agitation. 10/27/17 18:14 Case d/w Dr. Beach who believes placing the patient in obs will be the best way to dialyze him as he has multiple incidents of being agitated and not cooperating w/ dialysis at [facility]. Hospitalist microblogged. 10/27/17 19:[address] Tolentino for admission. *DC/Admit/Observation/Transfer Diagnosis at time of Disposition: Dialysis complication Qualifiers: Encounter type: initial encounter Qualified Code(s): T82.9XXA - Unspecified complication of cardiac and vascular prosthetic device, implant and graft, initial encounter - Discharge Dispostion Condition at time of disposition: Stable Decision to Admit order: Yes - Referrals Referrals: Yanick Jacobson MD [Primary Care Provider] - - Patient Instructions - Post Discharge Activity
--- NOTE | 2017-10-27 15:44 | PDOC ---
Attending Attestation - HPI HPI: 10/27/17 15:58 Pt is a 22 yo M with a PMHx of HTN, ESRD (HD on Tues,Thur, Sat), Autism who presents to the ED after dislodging the tip of his catheter while receiving HD. Patient was only able to complete 30 minutes of HD and presents to the ED for further evaluation. Neph: Eva - Medical Decision Making 10/27/17 15:58 Documentation prepared by Rachel Barakat, acting as medical radiation tech for Erma Carranza MD <Rachel Barakat - Last Filed: 10/27/17 15:58> - Resident Resident Name: Robert Collins - ED Attending Attestation I have performed the following: I have examined & evaluated the patient, The case was reviewed & discussed with the resident, I agree w/resident's findings & plan, Exceptions are as noted - Physicial Exam PE: 10/27/17 16:55 awake alert lungs clear bilaterally heart rrr no mrg. abd soft nt nd. skin warm and dry. post right cathetar, tip covered with blue tip. no surrounding erythema. <Erma Carranza - Last Filed: 10/27/17 16:56>
[2017-10-27] MEDS ORDERED: LORazepam 2 MG/ML SDV VIAL ONE ×2 (17:09→17:41)
--- NOTE | 2017-10-27 18:06 | PN ---
Progress Note (short form) - Note Progress Note: consult and procedure note dictated permacath repaired d/w Dr. Luz ER physician at bedside
[2017-10-27 18:07] LABS: BASO % 1.2 % (0-2.0); EOS % 1.9 % (0-4.5); HEMATOCRIT 26.9 % (35.4-49); HEMOGLOBIN 8.9 GM/dL (11.7-16.9); LYMPH % 32.7 % (8-40); MCH 28.7 pg (25.7-33.7); MEAN PLT VOLUME 7.4 fl (7.5-11.1); MONO % 7.7 % (3.8-10.2); NEUT % 56.5 % (42.8-82.8); PLATELET COUNT 301 K/MM3 (134-434); RBC 3.09 M/mm3 (4.00-5.60); WHITE BLOOD COUNT 7.2 K/mm3 (4.0-10.0)
[2017-10-27 18:36] LABS: ALBUMIN 3.3 g/dl (3.4-5.0); ALK PHOS 101 U/L (45-117); ANION GAP 12 (8-16); BILIRUBIN,TOTAL 0.4 mg/dL (0.2-1.0); BLOOD UREA NITROGEN 26 mg/dL (7-18); CALCIUM 8.5 mg/dL (8.5-10.1); CHLORIDE 100 mmol/L (98-107); CO2 26 mmol/L (21-32); GLUCOSE,RANDOM 95 mg/dL (74-106); SGPT/ALT 17 U/L (12-78); SODIUM 138 mmol/L (136-145)
[2017-10-27 18:37] LABS: POTASSIUM 4.2 mmol/L (3.5-5.1); SGOT/AST 18 U/L (15-37)
[2017-10-27 18:43] LABS: CREATININE 10.8 mg/dL (0.7-1.3)
[2017-10-27] MEDS: NIFEdipine E.R. 90 MG TABLET (FP) PO SCH (23:05)
[2017-10-27] MEDS: LACOSAMIDE 50 MG TABLET PO SCH (23:06)
[2017-10-27] MEDS: hydrALAZINE HCL 50 MG TABLET (FP) PO SCH (23:06)
[2017-10-27] MEDS: LABETALOL HCL 200 MG TABLET (FP) PO SCH (23:06)
[2017-10-27] MEDS: HEPARIN NA (PORCINE) 5,000 UNITS/ML 1ML VIAL SQ SCH (23:09)
--- NOTE | 2017-10-27 23:29 | HP ---
CHIEF COMPLAINT: Dislodged permacath tip during dialysis PCP: Yanick Jacobson HISTORY OF PRESENT ILLNESS: This is a 22 year old male with a significant PMHx of autism, HTN, ESRD, and seizure disorder who was sent to the ED after the tip of the permacath was dislodged from his back. Patient had several visits to the ED because of patient removing his permacath and therefore, the catheter is now placed in his back. Patient is nonverbal and father at bedside. Patient's father states he was agitated today 30 minutes into dialysis and when they tried to move him, he became restless causing the permacath to dislodge. Otherwise, no fevers, chills , palpitation, AMS. ER course was notable for: (1) Ativan given due to agitation (2) Vascular surgeon repaired permacath Recent Travel: denies PAST MEDICAL HISTORY: HTN, ESRD, AUTISM, SEIZURE DISORDER PAST SURGICAL HISTORY: VATS, pneumolysis 09/17/17 Left brachio-cephalic AV fistula and insertion of permcath 10/08/17 inguinal hernia repair as Social History: Smoking: denies Alcohol: denies Drugs: denies Family History: mother alive and well father with DM, HTN no siblings Allergies:cefprozil [From Cefzil] Allergy (Intermediate, Verified 10/23/17 10:45 ) Rash HOME MEDICATIONS: Home Medications Medication Instructions Recorded Labetalol HCl [Normodyne -] 600 mg PO TID #90 tablet 10/09/17 Lacosamide [Vimpat -] 75 mg PO MOWEFR #30 tab MDD 1 10/09/17 Lacosamide [Vimpat -] 150 mg PO BID #60 tab MDD 2 10/09/17 Nifedipine ER [Procardia XL -] 90 mg PO BID #60 tab.er.24 10/09/17 Sevelamer Carbonate [Renvela -] 1,600 mg PO TIDCM #90 tab 10/09/17 Vitamin B Comp W-C [Nephro-Claudia -] 1 tablet PO DAILY #30 tablet 10/09/17 hydrALAZINE HCL [Apresoline -] 50 mg PO TID #90 tablet 10/09/17 Lisinopril [Prinivil] 10 mg PO DAILY #30 tablet 10/11/17 REVIEW OF SYSTEMS Unable to obtain PHYSICAL EXAMINATION Vital Signs - 24 hr 10/27/17 10/27/17 15:19 20:30 Temperature 97.8 F 98 F Pulse Rate 82 Pulse Rate [ 73 Apical] Respiratory 18 18 Rate Blood Pressure 142/79 Blood Pressure 123/74 [Right Arm] O2 Sat by Pulse 96 100 Oximetry (%) GENERAL: Awake, alert, in no acute distress, non- verbal HEAD: Normal with no signs of trauma. EYES: Pupils equal, round and reactive to light, extraocular movements intact, sclera anicteric, conjunctiva clear. No lid lag. EARS, NOSE, THROAT: Moist mucous membranes. NECK: Normal range of motion, supple without lymphadenopathy, JVD, or masses. BACK: Surgical tape c/d/i in bed back LUNGS: Breath sounds equal, clear to auscultation bilaterally. No wheezes, and no crackles. No accessory muscle use. HEART: Regular rate and rhythm, normal S1 and S2 without murmur, rub or gallop. ABDOMEN: Soft, nontender, not distended, normoactive bowel sounds, no guarding, no rebound, no masses. UPPER EXTREMITIES: 2+ pulses, warm, well-perfused. No cyanosis. No clubbing. No peripheral edema. LOWER EXTREMITIES: 2+ pulses, warm, well-perfused. No calf tenderness. No peripheral edema. NEUROLOGICAL: unable to assess. Patient no cooperative Laboratory Results - last 24 hr 10/27/17 10/27/17 18:00 18:00 WBC 7.2 RBC 3.09 L Hgb 8.9 L Hct 26.9 L MCV 87.0 MCH 28.7 MCHC 33.0 RDW 15.0 Plt Count 301 MPV 7.4 L Neutrophils % 56.5 Lymphocytes % 32.7 Monocytes % 7.7 Eosinophils % 1.9 Basophils % 1.2 D Nucleated RBC % 0 Sodium 138 Potassium 4.2 Chloride 100 Carbon Dioxide 26 Anion Gap 12 BUN 26 H D Creatinine 10.8 H* Creat Clearance w eGFR 5.94 Random Glucose 95 D Calcium 8.5 Total Bilirubin 0.4 AST 18 D ALT 17 D Alkaline Phosphatase 101 Total Protein 7.0 Albumin 3.3 L ASSESSMENT/PLAN: Patient is a 22 year old male who was sent from the dialysis center due to his permacath being dislodged. Patient admitted for permacath replacement and dialysis. ESRD - Patient's permacath dislodged 30 minutes into dialysis - Permacath placement done by Dr. Gisell Brown - For HD tomorrow - Continue RENVELA 1600mg TIDCM - Appreciate nephrology consult HTN - Resume Hydralazine 50mg TID - Resume Labetolol 600Mmg TID - Resume Lisinopril 10mg daily - Resume Nifedipine 90mg BID Seizures - Continue Vimpat 75mg and 150mg F/E/N - No fluids - Continue to monitor - Renal Diet Prophylaxis -Medium risk. Heparin 5000 units SQ Q8H -No GI required Dispo -Full code -Dialysis tomorrow then discharge Jordana Tolentino [id number] Visit type - Emergency Visit Emergency Visit: Yes ED Registration Date: 10/27/17 Care time: The patient presented to the Emergency Department on the above date and was hospitalized for further evaluation of their emergent condition. - New Patient This patient is new to me today: Yes Date on this admission: 10/27/17 - Critical Care Critical Care patient: No Hospitalist Screening - Colonoscopy Questionnaire Colonoscopy Questionnaire: Colonoscopy Questionnaire - Patient: 50 - 75 years old and never had a screening colonoscopy: No History of colon or rectal polyps, or CA: No History of IBD, Crohn's disease or UC: No History of abdominal radiation therapy as a child: No - Relative: 1 with colon or rectal CA, or polyps at age 60 or younger: No Colon or rectal CA diagnosed at age 45 or younger: No Multiple relatives with colon or rectal CA: No - Outcome: Screening Result: Negative Screen
--- NOTE | 2017-10-28 00:07 | PN ---
Teaching Attending Note Name of Resident: Jordana Tolentino ATTENDING PHYSICIAN STATEMENT I saw and evaluated the patient. Chart, data reviewed. I reviewed the resident's note and discussed the case with the resident. I agree with the resident's findings and plan as documented. SUBJECTIVE: 22 year old male nonverbal with autism, HTN, seziure d/o, ESRD, sent to hospital after the tip of the permacath was dislodged from his back. Catheter on back due to dislodging it before from other site. Pt removed catheter 10/27 when he became restless in HD. No fevers or chills. Patient only received about 30 min HD On 10/27. Dr. Jameson repaired HD catheter in ER. OBJECTIVE: Last Vital Signs Temp Pulse Resp BP Pulse Ox 98 F 73 18 123/74 100 10/27/17 20:30 10/27/17 20:30 10/27/17 20:30 10/27/17 20:30 10/27/17 20:30 General- nad, heent -at, nc cv -s1+S2+ RRR Chest -b/l air entry sounds Abdomen-soft, nt, bs+ Back- HD catheter secured with gauze ext -no pedal edema skin - no rashes appreciated Abnormal Lab Results 10/27/17 10/27/17 18:00 18:00 RBC 3.09 L Hgb 8.9 L Hct 26.9 L MPV 7.4 L BUN 26 H D Creatinine 10.8 H* Albumin 3.3 L ASSESSMENT AND PLAN: #22yo man with autism, ESRD with dislodged HD on back which is now repaired. -observation -renal evaluation for HD in the morning -restart regular home medications #Anemia-normocytic -ferrtin level -iron studies -Vit B12 level -heparin for DVT prophylaxis
[2017-10-28 00:35] VITALS: TEMP 98.6
[2017-10-28] MEDS: LABETALOL HCL 200 MG TABLET (FP) PO SCH ×2 (05:48→14:50)
[2017-10-28] MEDS: hydrALAZINE HCL 50 MG TABLET (FP) PO SCH ×2 (05:48→14:50)
[2017-10-28] MEDS: HEPARIN NA (PORCINE) 5,000 UNITS/ML 1ML VIAL SQ SCH ×2 (05:48→14:50)
[2017-10-28 07:39] LABS: HEMATOCRIT 28.4 % (35.4-49); HEMOGLOBIN 9.4 GM/dL (11.7-16.9); MCH 29.2 pg (25.7-33.7); MCHC 33.1 g/dl (32.0-35.9); MEAN CELL VOLUME 88.1 fl (80-96); MEAN PLT VOLUME 7.8 fl (7.5-11.1); PLATELET COUNT 317 K/MM3 (134-434); RBC 3.22 M/mm3 (4.00-5.60); RDW 14.7 % (11.9-15.9); WHITE BLOOD COUNT 6.8 K/mm3 (4.0-10.0)
--- NOTE | 2017-10-28 07:44 | OP ---
DATE OF OPERATION: 10/27/2017 PREOPERATIVE DIAGNOSIS: End-stage renal disease. POSTOPERATIVE DIAGNOSIS: End-stage renal disease. PROCEDURE: Repair of Perma-Cath. SURGEON: Kevin Jameson MD GOLF SALES ASSOCIATE: None. ESTIMATED BLOOD LOSS: Minimal. SPECIMEN: None. DESCRIPTION OF PROCEDURE: The procedure was done in the emergency room. The patient's back was prepped and draped in the usual sterile fashion. A Perma-Cath repair kit was selected. The Perma-Cath was sterilely prepped and draped as well. A surgical clip was placed on the Perma-Cath and the old clip was removed. Perma-Cath tubing was trimmed and a Luer-Adeline was inserted onto the catheter. The inner piece of the repair kit was then inserted to the hub and the Luer-Adeline was locked down. The catheter was then clamped and aspirated and flushed easily and was flushed with saline. The catheter was again clamped. The Perma-Cath was capped. Dry, sterile dressing was applied and taped securely. Carine [id number]
[2017-10-28 08:05] LABS: CHLORIDE 100 mmol/L (98-107); POTASSIUM 4.2 mmol/L (3.5-5.1); SODIUM 139 mmol/L (136-145)
[2017-10-28 08:18] LABS: ANION GAP 14 (8-16); BLOOD UREA NITROGEN 29 mg/dL (7-18); CO2 25 mmol/L (21-32); GLUCOSE,RANDOM 86 mg/dL (74-106)
--- NOTE | 2017-10-28 08:19 | CONS ---
DATE OF CONSULTATION: DATE OF DICTATION: 10/27/2017 SITE OF VISIT: Emergency Room. REQUESTING PHYSICIAN: Erma Carranza M.D. CONSULTING PHYSICIAN: Mavis Tijerina M.D. TYPE OF CONSULTATION: Vascular Surgery CHIEF COMPLAINT: Damaged permacath. HISTORY OF PRESENT ILLNESS: This is a 22-year-old man who is well known to me from his prior admissions. He has end-stage renal disease, on hemodialysis, with a fistula the left arm. He has pulled out his permacath multiple times due to being severely autistic and uncooperative. He was at the dialysis unit today when the tubing kinked. He became combative and was able to pull on one of the ports and dislodge one of the ports. The catheter was clamped, and he was sent to the emergency room. The catheter is in the patient's back, since he has had so much difficulty pulling it out, which makes it somewhat more difficult for him to access. PAST MEDICAL HISTORY: Hypertension, end-stage renal disease, pneumonia. PAST SURGICAL HISTORY: Left arm fistula, multiple permacath insertions. MEDICATIONS: Reviewed. ALLERGIES: Cefprozil. FAMILY HISTORY: Reviewed and noncontributory. SOCIAL HISTORY: The patient is severely autistic, lives at home with his parents, gets dialysis at [facility]. REVIEW OF SYSTEMS: Not obtainable due to the patient being nonverbal. PHYSICAL EXAMINATION: Vital Signs: Afebrile. Vital signs stable. General: In no acute distress. HEENT: Normocephalic, atraumatic. Neck: Supple. Heart: S1, S2. Lungs: Clear to auscultation bilaterally. Abdomen: Soft, nontender, nondistended. Extremities: Left arm with a good thrill. Neurologic: The patient is in his usual state. He is nonverbal but is able to follow some commands and responds to voice. Skin: I inspected the patient's permacath, which is on his back. One of the ports has been pulled out, but most of the tubing has been left behind. DIAGNOSTIC STUDIES: Laboratory results reviewed. Imaging studies reviewed. ASSESSMENT AND PLAN: A 22-year-old man with damaged permacath. Plan for permacath repair at bedside. MAVIS TIJERINA M.D. ISABEL/[id number]
[2017-10-28 08:36] LABS: CREATININE 12.3 mg/dL (0.7-1.3)
[2017-10-28] MEDS: SEVELAMER CARBONATE 800 MG TAB (FP) PO SCH ×3 (08:50→17:31)
[2017-10-28] MEDS ORDERED: VITAMIN B COMP W-C 1 EA TABLET PO SCH (10:00)
[2017-10-28] MEDS ORDERED: LISINOPRIL 10 MG TABLET (FP) PO SCH (10:00)
[2017-10-28] MEDS ORDERED: PT OWN MED DRAWER 7, Y5N ONE (10:21)
[2017-10-28] MEDS: NIFEdipine E.R. 90 MG TABLET (FP) PO SCH (10:33)
[2017-10-28] MEDS: LACOSAMIDE 50 MG TABLET PO SCH (10:33)
[2017-10-28] MEDS ORDERED: LACOSAMIDE 50 MG TABLET PO ONE ×2 (11:15→17:45)
--- NOTE | 2017-10-28 11:38 | CON.NEP ---
Consult Consult Specialty:: nephrology - History of Present Illness History of Present Illness: 22 year old male nonverbal with autism, HTN, seziure d/o, ESRD, sent to hospital after the tip of the permacath was dislodged from his back. Catheter on back due to dislodging it before from other site. Pt removed catheter 10/27 when he became restless in HD. No fevers or chills. Patient only received about 30 min HD On 10/27. Dr. Jameson repaired HD catheter in ER. Pt keeps pulling the catheter and becomes difficult since he does not understand what is going on. - History Source History Provided By: Family Member, Medical Record - Past Medical History HEALTH AND SAFETY MANAGER: Yes: Other (autism) Cardio/Vascular: Yes: HTN Pulmonary: Yes: Other (pleural effusion) Renal/: Yes: Renal Inusuff, Hemodialysis - Past Surgical History Past Surgical History: Yes: AV Fistula/Graft, Hernia Repair - Alcohol/Substance Use Hx Alcohol Use: No - Smoking History Smoking history: Never smoked Have you smoked in the past 12 months: No Aproximately how many cigarettes per day: 0 Home Medications - Allergies Allergies/Adverse Reactions: Allergies Allergy/AdvReac Type Severity Reaction Status Date / Time cefprozil [From Cefzil] Allergy Intermediate Rash Verified 10/23/17 10:45 - Home Medications Home Medications: Ambulatory Orders Labetalol HCl [Normodyne -] 600 mg PO TID #90 tablet 10/09/17 Lacosamide [Vimpat -] 150 mg PO BID #60 tab MDD 2 10/09/17 Nifedipine ER [Procardia XL -] 90 mg PO BID #60 tab.er.24 10/09/17 Sevelamer Carbonate [Renvela -] 1,600 mg PO TIDCM #90 tab 10/09/17 Vitamin B Comp W-C [Nephro-Claudia -] 1 tablet PO DAILY #30 tablet 10/09/17 hydrALAZINE HCL [Apresoline -] 50 mg PO TID #90 tablet 10/09/17 Lisinopril [Prinivil] 10 mg PO DAILY #30 tablet 10/11/17 Lacosamide [Vimpat] 75 mg PO ASDIR 10/28/17 Family Disease History - Family Disease History Family Disease History: Other: Father (htn) Review of Systems Unable to obtain ROS, reason: developmental delay Nephrology Consult - Height Height: 5 ft 8 in - Weight Weight: 170 lb - BMI Body Mass Index (BMI): 25.8 - Lab Results CBC,BMP: CBC, BMP 10/28/17 06:45 10/28/17 06:45 Anion Gap: Anion Gap Anion Gap 14 (8-16) 10/28/17 06:45 - Physical Examination Vital Signs: Vital Signs Temperature 98.6 F 10/27/17 23:00 Pulse Rate 73 10/28/17 06:49 Respiratory Rate 20 10/28/17 06:49 Blood Pressure 138/65 10/28/17 06:49 O2 Sat by Pulse Oximetry (%) 98 10/27/17 23:00 Constitutional: Yes: Well Nourished, No Distress Eyes: Yes: Conjunctiva Clear HENT: Yes: Atraumatic, Normocephalic Neck: Yes: Supple, Trachea Midline Cardiovascular: Yes: Regular Rate and Rhythm Respiratory: Yes: CTA Bilaterally Renal/: Yes: WNL Access for Hemodialysis: Permacath Edema: No Neurological: Yes: Alert, Aphasia Assessment/Plan IMPRESSION esrd autism- HTN had episode where he stood up and damaged his catheter which was repaired by vascular PLAN will dialyze today Dr Velasquez will discuss with family GOC since Mr El can be a danger to himself and others in the dialysis unit Would ask psych to see him to determine a good form of sedation prior to dialysis MV
[2017-10-28] MEDS ORDERED: SODIUM CHLORIDE 250 ML IV PRN (11:39)
[2017-10-28 18:06] VITALS: BP 144/83; PULSE 80
--- NOTE | 2017-10-28 18:26 | DS ---
Physical Examination Vital Signs: Vital Signs Temperature 98.6 F 10/27/17 23:00 Pulse Rate 80 10/28/17 18:06 Respiratory Rate 18 10/28/17 18:06 Blood Pressure 144/83 10/28/17 18:06 O2 Sat by Pulse Oximetry (%) 98 10/27/17 23:00 Findings/Remarks: no complaints form mom. unable to obtain hx form patient PE: VS reviewed. pleasant not cooperative CV; RRR. Lungs; did not allow Abd: soft, NT, Nd ,NL BS . Ext: no edema Labs: CBC, BMP 10/28/17 06:45 10/28/17 06:45 Discharge Summary Reason For Visit: DIALYSIS COMPLICATION Current Active Problems Dialysis complication (Acute) Hospital Course: 22 y/o man with h/o autism, HTN, seziure d/o, ESRD on Hd through permacath on TTS. He was sent to Er as the tip of his permacath was displaced 10 min after starting HD yesterday. he has h/o being agitated during HD , and pulling his permacath, so it was placed in back. last night , his cath was fixed and pt received HD today. He was continued on his home BP meds . dc home today condition stable f/u with Dr. Velasquez, for further discussion about HD and goals time spent 30 min Condition: Stable - Instructions Referrals: Yanick Jacobson MD [Primary Care Provider] - - Home Medications Comprehensive Discharge Medication List: Ambulatory Orders Labetalol HCl [Normodyne -] 600 mg PO TID #90 tablet 10/09/17 Lacosamide [Vimpat -] 150 mg PO BID #60 tab MDD 2 10/09/17 Nifedipine ER [Procardia XL -] 90 mg PO BID #60 tab.er.24 10/09/17 Sevelamer Carbonate [Renvela -] 1,600 mg PO TIDCM #90 tab 10/09/17 Vitamin B Comp W-C [Nephro-Claudia -] 1 tablet PO DAILY #30 tablet 10/09/17 hydrALAZINE HCL [Apresoline -] 50 mg PO TID #90 tablet 10/09/17 Lisinopril [Prinivil] 10 mg PO DAILY #30 tablet 10/11/17 Lacosamide [Vimpat] 75 mg PO ASDIR 10/28/17 This patient is new to me today: Yes Date on this admission: 10/28/17 Emergency Visit: No Critical Care patient: No - Discharge Referral Referred to [facility] No
[2017-10-29] MEDS ORDERED: LACOSAMIDE 50 MG TABLET PO SCH (19:27)
== END 2017-10-28 19:01 | disposition home or self-care (01) | DRG 314 ==
LOC: JER 15:04 → JERBED 19:06 → J5S 22:43
PROVIDERS: ADMIT Internal Medicine; ATTEND Internal Medicine
PROC: 02WYX3Z Revision of Infusion Device in Great Vessel, External Approach (ICD-10-PCS; principal; 2017-10-27)
PROC: 5A1D90Z Performance of Urinary Filtration, Continuous, Greater than 18 hours Per Day (ICD-10-PCS; 2017-10-28)
DX: T82.898A Other specified complication of vascular prosthetic devices, implants and grafts, initial encounter (principal); N18.6 End stage renal disease; I12.0 Hypertensive chronic kidney disease with stage 5 chronic kidney disease or end stage renal disease; F84.0 Autistic disorder; Y83.9 Surgical procedure, unspecified as the cause of abnormal reaction of the patient, or of later complication, without mention of misadventure at the time of the procedure; Z99.2 Dependence on renal dialysis; D64.9 Anemia, unspecified
CPT/HCPCS: 36415; 71045-TC-FY; 76000-TC-FY; 80048; 80053; 85025; 85027; 85610; 86850; 86900; 86901; 94760; 99285-25; G0378; J0885; J1644

== ENCOUNTER 2017-10-30 12:09 | Observation (INO) | payer OTHER, BC ==
[2017-10-30 12:37] VITALS: BMI 25.8
--- NOTE | 2017-10-30 12:52 | PDOC ---
History of Present Illness <Claudia Lopez - Last Filed: 10/30/17 13:00> - History of Present Illness Initial Comments: 10/30/17 13:30 The patient is a 22 year old male with a PMH of HTN, Autism, ESRD on dialysis ( , , Sat) last dialysis Sat who is sent in by Dr. Diez for dialysis. The patient is accompanied by his family who assist in providing the history. They note that the patient has a history of behavioral disturbances during dialysis and his current center will not perform dialysis on the patient anymore. The patient was due for dialysis today and was sent into the hospital by Dr. Diez for dialysis. The patient is unable to participate in ROS due to his autism. <Yuval Mc - Last Filed: 10/30/17 13:30> <Erma Carranza - Last Filed: 10/30/17 18:17> - General Chief Complaint: Dialysis Shunt Problem Stated Complaint: DIALYSIS SHUNT PROBLEM Time Seen by Provider: 10/30/17 12:48 Past History <Claudia Lopez - Last Filed: 10/30/17 13:00> - Past Medical History Asthma: No Cancer: No Cardiac Disorders: No CVA: No COPD: No CHF: No DVT: No Dementia: No Diabetes: No Dialysis: Yes GI Disorders: No Disorders: Yes (acute renal failure) HTN: Yes Liver Disease: No Seizures: Yes (SEIZURES) Thyroid Disease: No - Surgical History Abdominal Surgery: Yes (yogesh inguinal surgery) - Immunization History Td Vaccination: No - Suicide/Smoking/Psychosocial Hx Smoking Status: No Smoking History: Never smoked Years of Tobacco Use: 0 Have you smoked in the past 12 months: No Number of Cigarettes Smoked Daily: 0 Hx Alcohol Use: No Drug/Substance Use Hx: No Substance Use Type: None Hx Substance Use Treatment: No <Yuval Mc - Last Filed: 10/30/17 13:30> <Erma Carranza - Last Filed: 10/30/17 18:17> - Past Medical History Allergies/Adverse Reactions: Allergies Allergy/AdvReac Type Severity Reaction Status Date / Time cefprozil [From Cefzil] Allergy Intermediate Rash Verified 10/30/17 12:30 Home Medications: Ambulatory Orders Labetalol HCl [Normodyne -] 600 mg PO TID #90 tablet 10/09/17 Lacosamide [Vimpat -] 150 mg PO BID #60 tab MDD 2 10/09/17 Nifedipine ER [Procardia XL -] 90 mg PO BID #60 tab.er.24 10/09/17 Sevelamer Carbonate [Renvela -] 1,600 mg PO TIDCM #90 tab 10/09/17 Vitamin B Comp W-C [Nephro-Claudia -] 1 tablet PO DAILY #30 tablet 10/09/17 hydrALAZINE HCL [Apresoline -] 50 mg PO TID #90 tablet 10/09/17 Lisinopril [Prinivil] 10 mg PO DAILY #30 tablet 10/11/17 Lacosamide [Vimpat] 75 mg PO ASDIR 10/28/17 Review of Systems - Review of Systems Able to Perform ROS?: No (Autism) <Yuval Mc - Last Filed: 10/30/17 13:30> *Physical Exam - Vital Signs Last Vital Signs Temp Pulse Resp BP Pulse Ox 98.2 F 78 20 133/75 100 10/30/17 12:31 10/30/17 12:31 10/30/17 12:31 10/30/17 12:31 10/30/17 12:31 <Claudia Lopez - Last Filed: 10/30/17 13:00> - Vital Signs Last Vital Signs Temp Pulse Resp BP Pulse Ox 98.2 F 78 20 133/75 100 10/30/17 12:31 10/30/17 12:31 10/30/17 12:31 10/30/17 12:31 10/30/17 12:31 - Physical Exam Comments: 10/30/17 13:40 General Appearance: Nourished. No Apparent Distress HEENT: No Pharyngeal Erythema, Tonsillar Exudate, Tonsillar Erythema Neck: No Cervical Lymphadenopathy Respiratory/Chest: Lungs Clear, Normal Breath Sounds. No Crackles, Rales, Rhonchi, Wheezing Cardiovascular: Regular Rhythm, Regular Rate. No Murmur, Gallops, Rubs Gastrointestinal/Abdominal: Normal Bowel Sounds, Soft. No Guarding, Rebound, Tenderness Musculoskeletal: No CVA Tenderness Extremity: Normal Capillary Refill Integumentary: Normal Color, Dry, Warm Neurologic: Alert, At baseline Mentally <Yuval Mc - Last Filed: 10/30/17 13:30> - Vital Signs Last Vital Signs Temp Pulse Resp BP Pulse Ox 98.2 F 78 20 133/75 100 10/30/17 12:31 10/30/17 12:31 10/30/17 12:31 10/30/17 12:31 10/30/17 12:31 <Erma Carranza - Last Filed: 10/30/17 18:17> ED Treatment Course - LABORATORY CBC & Chemistry Diagram: 10/30/17 16:04 10/30/17 16:04 - ADDITIONAL ORDERS Additional order review: Laboratory Results 10/30/17 16:04 Sodium 138 Potassium 4.4 Chloride 99 Carbon Dioxide 27 Anion Gap 12 BUN 34 H Creatinine 11.1 H* Creat Clearance w eGFR 5.76 Random Glucose 102 Calcium 8.9 Total Bilirubin 0.4 AST 19 ALT 23 D Alkaline Phosphatase 115 Total Protein 6.8 Albumin 3.3 L 10/30/17 16:04 RBC 3.16 L MCV 88.3 MCHC 33.7 RDW 15.6 MPV 7.8 Neutrophils % 66.1 Lymphocytes % 25.3 D Monocytes % 5.1 Eosinophils % 3.0 Basophils % 0.5 - Medications Given in the ED: ED Medications Discontinued Medications Generic Name Dose Route Start Last Admin Trade Name Freq PRN Reason Stop Dose Admin Lorazepam 0.5 mg 10/30/17 14:49 10/30/17 15:39 Ativan Injection - IM 10/30/17 14:50 0.5 mg ONCE ONE Administration <Erma Carranza - Last Filed: 10/30/17 18:17> Medical Decision Making - Medical Decision Making 10/30/17 13:01 Dr. Luz was paged and notified via phone service. <Claudia Lopez - Last Filed: 10/30/17 13:00> - Medical Decision Making 10/30/17 13:43 The patient is a 22 year old male with a PMH of HTN, Autism, ESRD on dialysis ( , , Sun) last dialysis Sat who is sent in by Dr. Diez for dialysis. The patient appears clinically well and at his baseline on exam today. We will discuss the case with Dr. Diez or Dr. Luz regarding arranging dialysis today. The patient will likely require observation admission for dialysis. <Yuval Mc - Last Filed: 10/30/17 13:30> *DC/Admit/Observation/Transfer <Claudia Lopez - Last Filed: 10/30/17 13:00> <Yuval Mc - Last Filed: 10/30/17 13:30> - Discharge Dispostion Decision to Admit order: Yes <Erma Carranza - Last Filed: 10/30/17 18:17> Diagnosis at time of Disposition: Dialysis complication - Referrals Referrals: Yanick Jacobson MD [Primary Care Provider] - - Patient Instructions - Post Discharge Activity
--- NOTE | 2017-10-30 15:09 | PDOC ---
Attending Attestation - HPI HPI: 10/30/17 15:13 The patient is a 22 year old male, with a significant PMH of hypertension, ESRD on dialysis (, , Sat) last dialysis Sunday, and autism who presents to the emergency department sent in by Dr. Velasquez for dialysis. As per patient s family present at bedside, the patient was unable to receive dialysis at [facility] secondary to behavioral disturbances. The patient is unable to contribute to the history secondary to autism. Allergies: cefprozil Documentation prepared by Jeremy Cotto, acting as medical office technology instructor for Erma Carranza MD. <Jeremy Cotto - Last Filed: 10/30/17 15:13> - Resident Resident Name: Yuval Mc - ED Attending Attestation I have performed the following: I have examined & evaluated the patient, The case was reviewed & discussed with the resident, I agree w/resident's findings & plan, Exceptions are as noted - Physicial Exam PE: 10/30/17 15:40 awake alert lungs clear bilaterally heart rrr no mrg. abd soft nt. ext wwp no edema. posterior tunneled cathetar. - Medical Decision Making 10/30/17 15:41 22 yo autism, here missed dialysis due to dialysis center refusing to dialyze. will be admitted here for dialysis. 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 requestin labs due to inability to dialyze until possible tomorrow. ekg. will require sedation for compliance due to autism. <Erma Carranza - Last Filed: 10/30/17 15:42>
[2017-10-30] MEDS ORDERED: LORazepam 2 MG/ML SDV VIAL ONE (15:33)
[2017-10-30 16:28] LABS: BASO % 0.5 % (0-2.0); HEMATOCRIT 27.9 % (35.4-49); HEMOGLOBIN 9.4 GM/dL (11.7-16.9); LYMPH % 25.3 % (8-40); MCH 29.8 pg (25.7-33.7); MCHC 33.7 g/dl (32.0-35.9); MEAN CELL VOLUME 88.3 fl (80-96); MEAN PLT VOLUME 7.8 fl (7.5-11.1); MONO % 5.1 % (3.8-10.2); NEUT % 66.1 % (42.8-82.8); PLATELET COUNT 315 K/MM3 (134-434); RBC 3.16 M/mm3 (4.00-5.60); RDW 15.6 % (11.9-15.9); WHITE BLOOD COUNT 9.9 K/mm3 (4.0-10.0)
[2017-10-30 16:54] LABS: ALBUMIN 3.3 g/dl (3.4-5.0); ANION GAP 12 (8-16); CALCIUM 8.9 mg/dL (8.5-10.1); CHLORIDE 99 mmol/L (98-107); CO2 27 mmol/L (21-32); GLUCOSE,RANDOM 102 mg/dL (74-106); POTASSIUM 4.4 mmol/L (3.5-5.1); SGOT/AST 19 U/L (15-37); SGPT/ALT 23 U/L (12-78); SODIUM 138 mmol/L (136-145)
[2017-10-30 17:00] LABS: ALK PHOS 115 U/L (45-117); BILIRUBIN,TOTAL 0.4 mg/dL (0.2-1.0); BLOOD UREA NITROGEN 34 mg/dL (7-18); TOT PROT 6.8 g/dl (6.4-8.2)
[2017-10-30 17:12] LABS: CREATININE 11.1 mg/dL (0.7-1.3)
--- NOTE | 2017-10-30 19:01 | HP ---
CHIEF COMPLAINT: Needs dialysis PCP: Dr. Velasquez HISTORY OF PRESENT ILLNESS: 22 year-old male with a PMH significant for HTN, seizure disorder, autism, and ESRD on HD (T,Th,Sat). Patient was scheduled for his regular hemodialysis today at [facility]. Several hours before the session, the facility reportedly called the patient's mother and said they would no longer be providing dialysis services to the patient because of his autism. The mother contacted Dr. Velasquez who directed her to bring the patient to the ED. ER course was notable for: (1) K4.4, Cr 11.1 Recent Travel: No PAST MEDICAL HISTORY: Hypertension Seizure disorder Autism ESRD on HD PAST SURGICAL HISTORY: VATS/pneumolysis 09/17/17 Left AV fistula 10/08/17 Permacath Inguinal repair (infant) Social History: lives with mother Smoking:no Alcohol: no Drugs: no Family History: mother a&w; father with HTN, DM, no siblings Allergies cefprozil [From Cefzil] Allergy (Intermediate, Verified 10/30/17 12:30) Rash HOME MEDICATIONS: Home Medications Medication Instructions Recorded Labetalol HCl [Normodyne -] 600 mg PO TID #90 tablet 10/09/17 Lacosamide [Vimpat -] 150 mg PO BID #60 tab MDD 2 10/09/17 Nifedipine ER [Procardia XL -] 90 mg PO BID #60 tab.er.24 10/09/17 Sevelamer Carbonate [Renvela -] 1,600 mg PO TIDCM #90 tab 10/09/17 Vitamin B Comp W-C [Nephro-Claudia -] 1 tablet PO DAILY #30 tablet 10/09/17 hydrALAZINE HCL [Apresoline -] 50 mg PO TID #90 tablet 10/09/17 Lisinopril [Prinivil] 10 mg PO DAILY #30 tablet 10/11/17 Lacosamide [Vimpat] 75 mg PO ASDIR 10/28/17 REVIEW OF SYSTEMS: negative ROS obtained from mother CONSTITUTIONAL: Absent: fever, chills, diaphoresis, generalized weakness, malaise, loss of appetite, weight change HEENT: Absent: rhinorrhea, nasal congestion, throat pain, throat swelling, difficulty swallowing, mouth swelling, ear pain, eye pain, visual changes CARDIOVASCULAR: Absent: chest pain, syncope, palpitations, irregular heart rate, lightheadedness , peripheral edema RESPIRATORY: Absent: cough, shortness of breath, dyspnea with exertion, orthopnea, wheezing, stridor, hemoptysis GASTROINTESTINAL: Absent: abdominal pain, abdominal distension, nausea, vomiting, diarrhea, constipation, melena, hematochezia GENITOURINARY: Absent: dysuria, frequency, urgency, hesitancy, hematuria, flank pain, genital pain MUSCULOSKELETAL: Absent: myalgia, arthralgia, joint swelling, back pain, neck pain SKIN: Absent: rash, itching, pallor HEMATOLOGIC/IMMUNOLOGIC: Absent: easy bleeding, easy bruising, lymphadenopathy, frequent infections ENDOCRINE: Absent: unexplained weight gain, unexplained weight loss, heat intolerance, cold intolerance NEUROLOGIC: Absent: headache, focal weakness or paresthesias, dizziness, unsteady gait, seizure, mental status changes, bladder or bowel incontinence PSYCHIATRIC: Absent: anxiety, depression, suicidal or homicidal ideation, hallucinations. PHYSICAL EXAMINATION Vital Signs - 24 hr 10/30/17 12:31 Temperature 98.2 F Pulse Rate 78 Respiratory 20 Rate Blood Pressure 133/75 O2 Sat by Pulse 100 Oximetry (%) GENERAL: Awake, alert, communicative with gestures and sounds, no words today; this is baseline LUNGS: Breath sounds equal, clear to auscultation bilaterally. No wheezes, and no crackles. No accessory muscle use. HEART: Regular rate and rhythm, normal S1 and S2 ABDOMEN: Soft, nontender, not distended, normoactive bowel sounds, no guarding, no rebound MUSCULOSKELETAL: Normal range of motion at all joints. No bony deformities or tenderness. No CVA tenderness. UPPER EXTREMITIES: 2+ pulses, warm, well-perfused. No cyanosis. No clubbing. No peripheral edema. LOWER EXTREMITIES: 2+ pulses, warm, well-perfused. No calf tenderness. No peripheral edema. Laboratory Results - last 24 hr 10/30/17 10/30/17 16:04 16:04 WBC 9.9 D RBC 3.16 L Hgb 9.4 L Hct 27.9 L MCV 88.3 MCH 29.8 MCHC 33.7 RDW 15.6 Plt Count 315 MPV 7.8 Absolute Neuts (auto) 6.6 Neutrophils % 66.1 Lymphocytes % 25.3 D Monocytes % 5.1 Eosinophils % 3.0 Basophils % 0.5 Nucleated RBC % 0 Sodium 138 Potassium 4.4 Chloride 99 Carbon Dioxide 27 Anion Gap 12 BUN 34 H Creatinine 11.1 H* Creat Clearance w eGFR 5.76 Random Glucose 102 Calcium 8.9 Total Bilirubin 0.4 AST 19 ALT 23 D Alkaline Phosphatase 115 Total Protein 6.8 Albumin 3.3 L ASSESSMENT/PLAN 22 year-old male with PMH significant for HTN, seizure disorder, autism, and ESRD on HD (T,Th,Sat). Placed on observation for hemodialysis because the facility where he has been receiving dialysis refused to treat him on the day his dialysis was scheduled, and made no arrangements with the patient's mother for treatment at another facility. There was no choice but to bring to the patient to the ED. He will need to remain in the hospital until such time as proper outpatient dialysis services can be arranged. It is unsafe to send the patient home until those arrangements are made. ESRD on HD --Dr. Velasquez aware, patient will get HD tomorrow Hypertension --BP stable --continue hydralazine, labetalol, lisinopril, Procardia XL, Severe, refractory hypertension --contine labetolol, nifedipine, hydralazine, Imdur Epilepsy --continue Vimpat daily, and additional dose on HD days Autism --baseline Dispo: continues to require observation. Full code. Visit type - Emergency Visit Emergency Visit: Yes ED Registration Date: 10/30/17 Care time: The patient presented to the Emergency Department on the above date and was hospitalized for further evaluation of their emergent condition. - New Patient This patient is new to me today: Yes Date on this admission: 10/30/17 - Critical Care Critical Care patient: No Hospitalist Screening - Colonoscopy Questionnaire Colonoscopy Questionnaire: Colonoscopy Questionnaire - Patient: 50 - 75 years old and never had a screening colonoscopy: No History of colon or rectal polyps, or CA: No History of IBD, Crohn's disease or UC: No History of abdominal radiation therapy as a child: No - Relative: 1 with colon or rectal CA, or polyps at age 60 or younger: Unknown Colon or rectal CA diagnosed at age 45 or younger: Unknown Multiple relatives with colon or rectal CA: Unknown - Outcome: Screening Result: Negative Screen
--- NOTE | 2017-10-30 20:27 | CONSULT ---
Consult Consult Specialty:: Nephrology Reason for Consultation:: ESRD - History of Present Illness Chief Complaint: unable to get HD as outpt History of Present Illness: Pt is a 22 year old male with pmhx of ESRD, HTN, autism, anemia and pleural effusions who was sent in as he is unable to receive HD in an outp setting. Spoke to pts family and HD center at [facility]. Pt has pulled out his catheter several times. He is not cooperating with family or staff in HD. He gets up during HD and has laid on the floor at times. He appears comfortable. He has been very cooperative with inpatient HD. 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) Cardio/Vascular: Yes: HTN Pulmonary: Yes: Other (pleural effusion) Renal/: Yes: Renal Inusuff, Hemodialysis - Past Surgical History Past Surgical History: Yes: AV Fistula/Graft, Hernia Repair - Alcohol/Substance Use Hx Alcohol Use: No - Smoking History Smoking history: Never smoked Have you smoked in the past 12 months: No Aproximately how many cigarettes per day: 0 Home Medications - Allergies Allergies/Adverse Reactions: Allergies Allergy/AdvReac Type Severity Reaction Status Date / Time cefprozil [From Cefzil] Allergy Intermediate Rash Verified 10/30/17 12:30 - Home Medications Home Medications: Ambulatory Orders Labetalol HCl [Normodyne -] 600 mg PO TID #90 tablet 10/09/17 Lacosamide [Vimpat -] 150 mg PO BID #60 tab MDD 2 10/09/17 Nifedipine ER [Procardia XL -] 90 mg PO BID #60 tab.er.24 10/09/17 Sevelamer Carbonate [Renvela -] 1,600 mg PO TIDCM #90 tab 10/09/17 Vitamin B Comp W-C [Nephro-Claudia -] 1 tablet PO DAILY #30 tablet 10/09/17 hydrALAZINE HCL [Apresoline -] 50 mg PO TID #90 tablet 10/09/17 Lisinopril [Prinivil] 10 mg PO DAILY #30 tablet 10/11/17 Lacosamide [Vimpat] 75 mg PO ASDIR 10/28/17 Family Disease History - Family Disease History Family Disease History: Other: Father (htn) Review of Systems Unable to obtain ROS, reason: not verbal Physical Exam Vital Signs: Vital Signs Temperature 98.2 F 10/30/17 12:31 Pulse Rate 78 10/30/17 12:31 Respiratory Rate 20 10/30/17 12:31 Blood Pressure 133/75 10/30/17 12:31 O2 Sat by Pulse Oximetry (%) 100 10/30/17 12:31 Constitutional: Yes: Calm Eyes: Yes: Conjunctiva Clear HENT: Yes: Atraumatic Neck: Yes: Supple Cardiovascular: Yes: S1, S2 Respiratory: Yes: CTA Bilaterally Gastrointestinal: Yes: Normal Bowel Sounds, Soft Renal/: Yes: WNL Musculoskeletal: Yes: WNL Edema: No Neurological: Yes: Pre-Existing Deficit Labs: CBC, BMP 10/30/17 16:04 10/30/17 16:04 Laboratory Tests 10/30/17 10/30/17 16:04 16:04 Hgb 9.4 L Potassium 4.4 BUN 34 H Creatinine 11.1 H* Problem List - Problems (1) Dialysis complication Code(s): T82.9XXA - UNSP COMP OF CARDIAC AND VASCULAR PROSTH DEV/GRFT, INIT (2) Anemia Code(s): D64.9 - ANEMIA, UNSPECIFIED (3) Autism Code(s): F84.0 - AUTISTIC DISORDER (4) ESRD (end stage renal disease) Code(s): N18.6 - END STAGE RENAL DISEASE (5) Seizures Code(s): R56.9 - UNSPECIFIED CONVULSIONS Assessment/Plan Current Medications Generic Name Dose Route Start Last Admin Trade Name Freq PRN Reason Stop Dose Admin Hydralazine HCl 50 mg 10/30/17 22:00 Apresoline - PO TID LANE Labetalol HCl 600 mg 10/30/17 22:00 Normodyne - PO TID LANE Lacosamide 150 mg 10/30/17 22:00 Vimpat - PO BID LANE Lisinopril 10 mg 10/31/17 10:[address] Multivit/Ca Carb/B Cmplx/FA/Prenat 1 tablet 10/31/17 10:00 Nephro-Claudia - PO DAILY LANE Nifedipine 90 mg 10/30/17 22:00 Procardia Xl - PO BID LANE Non-Formulary Medication 75 mg 10/31/17 10:00 Lacosamide PO 10/31/17 10:[address] Sevelamer Carbonate 1,600 mg 10/31/17 08:00 Renvela - PO TIDCM LANE Impression 1. ESRD 2. autism 3. HTN 4. anemia 5. epilepsy 6. hx of pleural effusions Plan - HD in am - psych eval for medication to help with behavior - will need to find a new HD unit, sent [facility] to [facility] for Renal care - discussed options at length with family and they are very understanding of situation - will follow Dr Velasquez
[2017-10-30] MEDS ORDERED: SODIUM CHLORIDE 250 ML IV PRN (21:39)
[2017-10-30] MEDS: LACOSAMIDE 50 MG TABLET PO SCH (22:24)
[2017-10-30] MEDS: hydrALAZINE HCL 50 MG TABLET (FP) PO SCH (22:24)
[2017-10-30] MEDS: LABETALOL HCL 200 MG TABLET (FP) PO SCH (22:24)
[2017-10-30] MEDS: NIFEdipine E.R. 90 MG TABLET (FP) PO SCH (22:25)
[2017-10-31] MEDS: LABETALOL HCL 200 MG TABLET (FP) PO SCH ×3 (05:57→21:22)
[2017-10-31] MEDS: hydrALAZINE HCL 50 MG TABLET (FP) PO SCH ×3 (05:58→21:22)
[2017-10-31 07:30] LABS: CHLORIDE 97 mmol/L (98-107); POTASSIUM 3.9 mmol/L (3.5-5.1); SODIUM 134 mmol/L (136-145)
[2017-10-31 07:41] LABS: BASO % 0.6 % (0-2.0); HEMATOCRIT 28.6 % (35.4-49); HEMOGLOBIN 9.6 GM/dL (11.7-16.9); LYMPH % 17.9 % (8-40); MCH 29.2 pg (25.7-33.7); MCHC 33.5 g/dl (32.0-35.9); MEAN CELL VOLUME 87.4 fl (80-96); MONO % 4.4 % (3.8-10.2); NEUT % 75.1 % (42.8-82.8); PLATELET COUNT 269 K/MM3 (134-434); RBC 3.28 M/mm3 (4.00-5.60); RDW 15.3 % (11.9-15.9); WHITE BLOOD COUNT 11.2 K/mm3 (4.0-10.0)
[2017-10-31 07:50] LABS: ALBUMIN 3.3 g/dl (3.4-5.0); ALK PHOS 107 U/L (45-117); ANION GAP 13 (8-16); BILIRUBIN,TOTAL 0.5 mg/dL (0.2-1.0); BLOOD UREA NITROGEN 39 mg/dL (7-18); CALCIUM 8.8 mg/dL (8.5-10.1); CO2 24 mmol/L (21-32); GLUCOSE,RANDOM 96 mg/dL (74-106); MAGNESIUM 2.3 mg/dL (1.8-2.4); PHOSPHOROUS 3.8 mg/dL (2.5-4.9); SGOT/AST 14 U/L (15-37); SGPT/ALT 20 U/L (12-78); TOT PROT 6.9 g/dl (6.4-8.2)
[2017-10-31] MEDS: SEVELAMER CARBONATE 800 MG TAB (FP) PO SCH ×3 (08:58→17:52)
[2017-10-31] MEDS ORDERED: EPOETIN ALFA 10,000 UNIT/1 ML VIAL IVPUSH ONE (10:30)
[2017-10-31] MEDS: LACOSAMIDE 50 MG TABLET PO SCH ×2 (11:54→21:21)
[2017-10-31] MEDS: NIFEdipine E.R. 90 MG TABLET (FP) PO SCH ×2 (11:55→21:22)
[2017-10-31] MEDS: VITAMIN B COMP W-C 1 EA TABLET PO SCH (11:55)
[2017-10-31] MEDS: LISINOPRIL 10 MG TABLET (FP) PO SCH (11:55)
--- NOTE | 2017-10-31 12:02 | PN ---
Progress Note, Physician History of Present Illness: Pt seen and examined at bedside. He tolerated HD and was cooperative. - Current Medication List Current Medications: Active Medications Hydralazine HCl (Apresoline -) 50 mg PO TID [facility] Last Admin: 10/31/17 05:58 Dose: 50 mg Sodium Chloride (Normal Saline -) 250 mls @ 3,000 mls/hr IV PRN PRN PRN Reason: Hypotension during Dialysis Stop: 10/31/17 21:39 Labetalol HCl (Normodyne -) 600 mg PO TID [facility] Last Admin: 10/31/17 05:57 Dose: 600 mg Lacosamide (Vimpat -) 150 mg PO BID [facility] Last Admin: 10/31/17 11:54 Dose: 150 mg Lacosamide (Vimpat -) 75 mg PO ONCE ONE Stop: 10/31/17 14:01 Lisinopril (Prinivil) 10 mg PO DAILY [facility] Last Admin: 10/31/17 11:55 Dose: 10 mg Multivit/Ca Carb/B Cmplx/FA/Prenat (Nephro-Claudia -) 1 tablet PO DAILY [facility] Last Admin: 10/31/17 11:55 Dose: 1 tablet Nifedipine (Procardia Xl -) 90 mg PO BID [facility] Last Admin: 10/31/17 11:55 Dose: 90 mg Sevelamer Carbonate (Renvela -) 1,600 mg PO TIDCM [facility] Last Admin: 10/31/17 11:55 Dose: 1,600 mg - Objective Vital Signs: Vital Signs Temperature 97.2 F L 10/31/17 06:00 Pulse Rate 80 10/31/17 11:54 Respiratory Rate 18 10/31/17 11:54 Blood Pressure 123/62 10/31/17 11:54 O2 Sat by Pulse Oximetry (%) 98 10/31/17 04:24 Constitutional: Yes: Calm Eyes: Yes: Conjunctiva Clear HENT: Yes: Atraumatic Neck: Yes: Supple Cardiovascular: Yes: S1, S2 Respiratory: Yes: CTA Bilaterally Gastrointestinal: Yes: Soft Genitourinary: Yes: Incontinence Musculoskeletal: Yes: WNL Edema: No Neurological: Yes: Pre-Existing Deficit Labs: CBC, BMP 10/31/17 06:50 10/31/17 06:50 Problem List - Problems (1) Dialysis complication Code(s): T82.9XXA - UNSP COMP OF CARDIAC AND VASCULAR PROSTH DEV/GRFT, INIT (2) Anemia Code(s): D64.9 - ANEMIA, UNSPECIFIED (3) Autism Code(s): F84.0 - AUTISTIC DISORDER (4) ESRD (end stage renal disease) Code(s): N18.6 - END STAGE RENAL DISEASE (5) Seizures Code(s): R56.9 - UNSPECIFIED CONVULSIONS Assessment/Plan Current Medications Generic Name Dose Route Start Last Admin Trade Name Freq PRN Reason Stop Dose Admin Hydralazine HCl 50 mg 10/30/17 22:00 10/31/17 05:58 Apresoline - PO [address] Administration Sodium Chloride 250 mls @ 3,000 mls/hr 10/30/17 21:39 Normal Saline - IV 10/31/17 21:39 PRN PRN Hypotension during Dialysis Labetalol HCl 600 mg 10/30/17 22:00 10/31/17 05:57 Normodyne - PO [address] Administration Lacosamide 150 mg 10/30/17 22:00 10/31/17 11:54 Vimpat - PO [address] Administration Lacosamide 75 mg 10/31/17 14:00 Vimpat - PO 10/31/17 14:01 ONCE ONE Lisinopril 10 mg 10/31/17 10:00 10/31/17 11:55 Prinivil PO [address] Administration Multivit/Ca Carb/B Cmplx/FA/Prenat 1 tablet 10/31/17 10:00 10/31/17 11:55 Nephro-Claudia - PO [address] Administration Nifedipine 90 mg 10/30/17 22:00 10/31/17 11:55 Procardia Xl - PO [address] Administration Sevelamer Carbonate 1,600 mg 10/31/17 08:00 10/31/17 11:55 Renvela - PO 1,[address] Administration Impression 1. ESRD 2. autism 3. HTN 4. anemia 5. epilepsy 6. hx of pleural effusions Plan - HD today - pt tolerated hd and was calm - psych pending - will need to find a new HD unit, sent [facility] to [facility] for Renal care - will follow Dr Velasquez
[2017-10-31] MEDS ORDERED: LACOSAMIDE 50 MG TABLET PO ONE (14:00)
--- NOTE | 2017-10-31 16:37 | CON.PSY ---
Psychiatry Consult Chief Complaint: Patient seen for help with Dialysis. Patient who is Autistic can get agitated during Dialysis. Symptoms: reports: Impulsivity - Previous Psychiatric Treatment Outpatient: None Inpatient: None - Previous Substance Abuse Treatment Outpatient: None Inpatient: None - Current Medications Current Medications: Active Medications Hydralazine HCl (Apresoline -) 50 mg PO TID [facility] Last Admin: 10/31/17 15:27 Dose: 50 mg Sodium Chloride (Normal Saline -) 250 mls @ 3,000 mls/hr IV PRN PRN PRN Reason: Hypotension during Dialysis Stop: 10/31/17 21:39 Labetalol HCl (Normodyne -) 600 mg PO TID [facility] Last Admin: 10/31/17 15:26 Dose: 600 mg Lacosamide (Vimpat -) 150 mg PO BID [facility] Last Admin: 10/31/17 11:54 Dose: 150 mg Lisinopril (Prinivil) 10 mg PO DAILY [facility] Last Admin: 10/31/17 11:55 Dose: 10 mg Multivit/Ca Carb/B Cmplx/FA/Prenat (Nephro-Claudia -) 1 tablet PO DAILY [facility] Last Admin: 10/31/17 11:55 Dose: 1 tablet Nifedipine (Procardia Xl -) 90 mg PO BID [facility] Last Admin: 10/31/17 11:55 Dose: 90 mg Sevelamer Carbonate (Renvela -) 1,600 mg PO TIDCM [facility] Last Admin: 10/31/17 11:55 Dose: 1,600 mg - Allergies Allergies: Allergies Allergy/AdvReac Type Severity Reaction Status Date / Time cefprozil [From Cefzil] Allergy Intermediate Rash Verified 10/30/17 12:30 - Current Living Status Usual Living Arrangement: With Parent - Current Mental Status Evaluation Appearance: Well Groomed Attitude: Guarded - Affect Affect: Constrictive Appropriateness: Not Appropriate - Mood Mood: Euthymic - Speech/Language Expressive: Delayed - Psychomotor Activity Psychomotor Activity: Slowed - Thought Process Thought Process: Intact - Thought Content Hallucinations: Absent Delusions: Absent - Self Perception Self Perception: Depersonalization - Cognition Attention: Diminished Memory, Short Term: 0/3 Memory, Remote with Promptin/3 - Concentration Serial Sevens Intact: No Simple Calculations Intact: No - Abstraction Proverb Interpretation: Idiosyncratic Judgement: Moderately Impaired - Insight Insight: Impaired - Impulse Control Impulse Control: Moderately Impaired - Suicidal Ideation Suicidal Ideation: No - Homicidal Ideation Homicidal Ideation: No Assessment/Plan 1) suggest Ativan 1mg po od two hrs before Dailysis.
--- NOTE | 2017-10-31 17:52 | PN ---
Physical Exam: SUBJECTIVE: Patient seen and examined at bedside. Mother present. HD today. OBJECTIVE: Vital Signs Period Temp Pulse Resp BP Sys/Mora Pulse Ox Last 24 Hr 97.2 F-98.6 F 80-95 18-18 106-155/43-73 98-98 GENERAL: The patient is awake, alert, playing with iPad, reaching out to hold hands. LUNGS: Breath sounds CTA HEART: Regular rate and rhythm, S1, S2 without murmur, rub or gallop. ABDOMEN: Soft, nontender, nondistended EXTREMITIES: 2+ pulses, warm, well-perfused, no edema. Laboratory Results - last 24 hr 10/31/17 10/31/17 06:50 06:50 WBC 11.2 H RBC 3.28 L Hgb 9.6 L Hct 28.6 L MCV 87.4 MCH 29.2 MCHC 33.5 RDW 15.3 Plt Count 269 MPV 8.0 Absolute Neuts (auto) 8.4 Neutrophils % 75.1 Lymphocytes % 17.9 D Monocytes % 4.4 Eosinophils % 2.0 Basophils % 0.6 Nucleated RBC % 0 Sodium 134 L Potassium 3.9 Chloride 97 L Carbon Dioxide 24 Anion Gap 13 BUN 39 H Creatinine 12.0 H* Creat Clearance w eGFR 5.26 Random Glucose 96 Calcium 8.8 Phosphorus 3.8 D Magnesium 2.3 Total Bilirubin 0.5 D AST 14 L D ALT 20 Alkaline Phosphatase 107 Total Protein 6.9 Albumin 3.3 L Current Medications Generic Name Dose Route Start Last Admin Trade Name Freq PRN Reason Stop Dose Admin Acetaminophen 650 mg 10/31/17 20:33 10/31/17 21:22 Tylenol - PO 650 mg Q6H PRN Administration FEVER Hydralazine HCl 50 mg 10/30/17 22:00 10/31/17 21:22 Apresoline - PO [address] Administration Labetalol HCl 600 mg 10/30/17 22:00 10/31/17 21:22 Normodyne - PO [address] Administration Lacosamide 150 mg 10/30/17 22:00 10/31/17 21:21 Vimpat - PO [address] Administration Lacosamide 75 mg 11/02/17 08:00 Vimpat - PO MOWEFR LANE Lisinopril 10 mg 10/31/17 10:00 10/31/17 11:55 Prinivil PO [address] Administration Lorazepam 1 mg 11/02/17 08:00 Ativan - PO MOWEFR LANE Multivit/Ca Carb/B Cmplx/FA/Prenat 1 tablet 10/31/17 10:00 10/31/17 11:55 Nephro-Claudia - PO [address] Administration Nifedipine 90 mg 10/30/17 22:00 10/31/17 21:22 Procardia Xl - PO [address] Administration Sevelamer Carbonate 1,600 mg 10/31/17 08:00 10/31/17 17:52 Renvela - PO 1,[address] Administration ASSESSMENT/PLAN: 22 year-old male with PMH significant for HTN, seizure disorder, autism, and ESRD on HD (T,Th,Sat). Placed on observation for hemodialysis because the facility where he has been receiving dialysis refused to treat him on the day his dialysis was scheduled, and made no arrangements with the patient's mother for treatment at another facility. There was no choice but to bring to the patient to the ED. He will need to remain in the hospital until such time as outpatient dialysis services can be arranged. It is unsafe to send the patient home until those arrangements are made. ESRD on HD --HD today --renal following Hypertension --BP stable --continue hydralazine, labetalol, lisinopril, Procardia XL Epilepsy --continue Vimpat BID, and additional dose on HD days Autism --baseline Dispo: continues to require observation. Full code. Visit type - Emergency Visit Emergency Visit: Yes ED Registration Date: 10/30/17 Care time: The patient presented to the Emergency Department on the above date and was hospitalized for further evaluation of their emergent condition. - New Patient This patient is new to me today: No - Critical Care Critical Care patient: No
[2017-10-31] MEDS ORDERED: ACETAMINOPHEN 325 MG TABLET (FP) PO PRN (20:33)
[2017-11-01] MEDS: hydrALAZINE HCL 50 MG TABLET (FP) PO SCH ×3 (06:59→21:36)
[2017-11-01] MEDS: LABETALOL HCL 200 MG TABLET (FP) PO SCH ×3 (06:59→21:36)
[2017-11-01] MEDS: LISINOPRIL 10 MG TABLET (FP) PO SCH (09:35)
[2017-11-01] MEDS: NIFEdipine E.R. 90 MG TABLET (FP) PO SCH ×2 (09:35→21:40)
[2017-11-01] MEDS: LACOSAMIDE 50 MG TABLET PO SCH ×2 (09:35→21:37)
[2017-11-01] MEDS: VITAMIN B COMP W-C 1 EA TABLET PO SCH (09:35)
[2017-11-01] MEDS: SEVELAMER CARBONATE 800 MG TAB (FP) PO SCH ×4 (10:19→17:29)
--- NOTE | 2017-11-01 11:46 | PN ---
Progress Note (short form) - Note Progress Note: Subjective: The patient was seen at the wheeling himself around the unit with his mother. Awaiting dialysis center placement Current Medications Generic Name Dose Route Start Last Admin Trade Name Franko PRN Reason Stop Dose Admin Acetaminophen 650 mg 10/31/17 20:33 10/31/17 21:22 Tylenol - PO 650 mg Q6H PRN Administration FEVER Hydralazine HCl 50 mg 10/30/17 22:00 11/01/17 06:59 Apresoline - PO [address] Administration Labetalol HCl 600 mg 10/30/17 22:00 11/01/17 06:59 Normodyne - PO [address] Administration Lacosamide 150 mg 10/30/17 22:00 11/01/17 09:35 Vimpat - PO [address] Administration Lacosamide 75 mg 11/02/17 08:00 Vimpat - PO MOWEFR LANE Lisinopril 10 mg 10/31/17 10:00 11/01/17 09:35 Prinivil PO [address] Administration Lorazepam 1 mg 11/02/17 08:00 Ativan - PO MOWEFR LANE Multivit/Ca Carb/B Cmplx/FA/Prenat 1 tablet 10/31/17 10:00 11/01/17 09:35 Nephro-Claudia - PO [address] Administration Nifedipine 90 mg 10/30/17 22:00 11/01/17 09:35 Procardia Xl - PO [address] Administration Sevelamer Carbonate 1,600 mg 10/31/17 08:00 11/01/17 10:19 Renvela - PO 1,[address] Administration Objective: Vital Signs Period Temp Pulse Resp BP Sys/Mora Pulse Ox Last 24 Hr 97.3 F-100.2 F 66-86 18-19 129-155/66-105 98-98 Physical Exam: Patient would not allow and exam Old permacath sites visualized and are in stages of healing CBCD WBC 11.2 K/mm3 (4.0-10.0) H 10/31/17 06:50 RBC 3.28 M/mm3 (4.00-5.60) L 10/31/17 06:50 Hgb 9.6 GM/dL (11.7-16.9) L 10/31/17 06:50 Hct 28.6 % (35.4-49) L 10/31/17 06:50 MCV 87.4 fl (80-96) 10/31/17 06:50 MCHC 33.5 g/dl (32.0-35.9) 10/31/17 06:50 RDW 15.3 % (11.9-15.9) 10/31/17 06:50 Plt Count 269 K/MM3 (134-434) 10/31/17 06:50 MPV 8.0 fl (7.5-11.1) 10/31/17 06:50 CMP Sodium 134 mmol/L (136-145) L 10/31/17 06:50 Potassium 3.9 mmol/L (3.5-5.1) 10/31/17 06:50 Chloride 97 mmol/L (98-107) L 10/31/17 06:50 Carbon Dioxide 24 mmol/L (21-32) 10/31/17 06:50 Anion Gap 13 (8-16) 10/31/17 06:50 BUN 39 mg/dL (7-18) H 10/31/17 06:50 Creatinine 12.0 mg/dL (0.7-1.3) H* 10/31/17 06:50 Creat Clearance w eGFR 5.26 (>60) 10/31/17 06:50 Random Glucose 96 mg/dL (74-106) 10/31/17 06:50 Calcium 8.8 mg/dL (8.5-10.1) 10/31/17 06:50 Total Bilirubin 0.5 mg/dL (0.2-1.0) D 10/31/17 06:50 AST 14 U/L (15-37) L D 10/31/17 06:50 ALT 20 U/L (12-78) 10/31/17 06:50 Alkaline Phosphatase 107 U/L (45-117) 10/31/17 06:50 Total Protein 6.9 g/dl (6.4-8.2) 10/31/17 06:50 Albumin 3.3 g/dl (3.4-5.0) L 10/31/17 06:50 Assessment: This is a 22 year old male with a significant past medical history of autism, HTN, ESRD, seizures presented to the ED after pulling out his permacath. Plan: 1) ESRD: - Awiting new HD placement - Appreciate nephrology consult 2) HTN - Continue Hydralazine - Continue Labetolol - Continue Lisinopril - Continue Nifedipine 3) Seizures - Continue Vimpat 4) F/E/N: - Sodium controlled diet 5) Dispo: - Awaiting HD placement CODE STATUS: FULL CODE Visit type - Emergency Visit Emergency Visit: Yes ED Registration Date: 10/30/17 Care time: The patient presented to the Emergency Department on the above date and was hospitalized for further evaluation of their emergent condition. - New Patient This patient is new to me today: Yes Date on this admission: 11/01/17 - Critical Care Critical Care patient: No
[2017-11-01] MEDS ORDERED: HEPARIN NA (PORCINE) 5,000 UNITS/ML 1ML VIAL IVPUSH ONE (15:00)
--- NOTE | 2017-11-01 15:00 | PN ---
Progress Note, Physician History of Present Illness: Pt seen and examined at bedside. He is awake and appears comfortable. - Current Medication List Current Medications: Active Medications Acetaminophen (Tylenol -) 650 mg PO Q6H PRN PRN Reason: FEVER Last Admin: 10/31/17 21:22 Dose: 650 mg Hydralazine HCl (Apresoline -) 50 mg PO TID [facility] Last Admin: 11/01/17 14:14 Dose: 50 mg Labetalol HCl (Normodyne -) 600 mg PO TID [facility] Last Admin: 11/01/17 14:14 Dose: 600 mg Lacosamide (Vimpat -) 150 mg PO BID [facility] Last Admin: 11/01/17 09:35 Dose: 150 mg Lacosamide (Vimpat -) 75 mg PO MOWEFR [facility] Lisinopril (Prinivil) 10 mg PO DAILY [facility] Last Admin: 11/01/17 09:35 Dose: 10 mg Lorazepam (Ativan -) 1 mg PO MOWEFR [facility] Multivit/Ca Carb/B Cmplx/FA/Prenat (Nephro-Claudia -) 1 tablet PO DAILY [facility] Last Admin: 11/01/17 09:35 Dose: 1 tablet Nifedipine (Procardia Xl -) 90 mg PO BID [facility] Last Admin: 11/01/17 09:35 Dose: 90 mg Sevelamer Carbonate (Renvela -) 1,600 mg PO TIDCM [facility] Last Admin: 11/01/17 14:13 Dose: 1,600 mg - Objective Vital Signs: Vital Signs Temperature 97.5 F L 11/01/17 13:00 Pulse Rate 83 11/01/17 13:00 Respiratory Rate 19 11/01/17 13:00 Blood Pressure 148/70 11/01/17 13:00 O2 Sat by Pulse Oximetry (%) 98 11/01/17 12:00 Constitutional: Yes: Calm Eyes: Yes: Conjunctiva Clear HENT: Yes: Atraumatic Neck: Yes: Supple Cardiovascular: Yes: S1, S2 Respiratory: Yes: CTA Bilaterally Gastrointestinal: Yes: Soft Genitourinary: Yes: Incontinence Musculoskeletal: Yes: WNL Edema: No Neurological: Yes: Pre-Existing Deficit Labs: CBC, BMP 10/31/17 06:50 10/31/17 06:50 Problem List - Problems (1) Dialysis complication Code(s): T82.9XXA - UNSP COMP OF CARDIAC AND VASCULAR PROSTH DEV/GRFT, INIT (2) Anemia Code(s): D64.9 - ANEMIA, UNSPECIFIED (3) Autism Code(s): F84.0 - AUTISTIC DISORDER (4) ESRD (end stage renal disease) Code(s): N18.6 - END STAGE RENAL DISEASE (5) Seizures Code(s): R56.9 - UNSPECIFIED CONVULSIONS Assessment/Plan Current Medications Generic Name Dose Route Start Last Admin Trade Name Freq PRN Reason Stop Dose Admin Acetaminophen 650 mg 10/31/17 20:33 10/31/17 21:22 Tylenol - PO 650 mg Q6H PRN Administration FEVER Hydralazine HCl 50 mg 10/30/17 22:00 11/01/17 14:14 Apresoline - PO [address] Administration Labetalol HCl 600 mg 10/30/17 22:00 11/01/17 14:14 Normodyne - PO [address] Administration Lacosamide 150 mg 10/30/17 22:00 11/01/17 09:35 Vimpat - PO [address] Administration Lacosamide 75 mg 11/02/17 08:00 Vimpat - PO MOWEFR LANE Lisinopril 10 mg 10/31/17 10:00 11/01/17 09:35 Prinivil PO [address] Administration Lorazepam 1 mg 11/02/17 08:00 Ativan - PO MOWEFR LANE Multivit/Ca Carb/B Cmplx/FA/Prenat 1 tablet 10/31/17 10:00 11/01/17 09:35 Nephro-Claudia - PO [address] Administration Nifedipine 90 mg 10/30/17 22:00 11/01/17 09:35 Procardia Xl - PO [address] Administration Sevelamer Carbonate 1,600 mg 10/31/17 08:00 11/01/17 14:13 Renvela - PO 1,[address] Administration Impression 1. ESRD 2. autism 3. HTN 4. anemia 5. epilepsy 6. hx of pleural effusions Plan - HD in am - pt accepted for HD in [facility] for [facility] TTS at 9 am - cont epogen - he will need a script for ativan on discharge - give a dose tomorrow before HD - will follow Dr Velasquez
[2017-11-02] MEDS: hydrALAZINE HCL 50 MG TABLET (FP) PO SCH ×2 (06:06→14:36)
[2017-11-02] MEDS: LABETALOL HCL 200 MG TABLET (FP) PO SCH ×2 (06:06→14:36)
[2017-11-02] MEDS ORDERED: LORazepam 1 MG TABLET PO SCH (08:00)
[2017-11-02] MEDS ORDERED: LACOSAMIDE 50 MG TABLET PO SCH (08:00)
[2017-11-02] MEDS: SEVELAMER CARBONATE 800 MG TAB (FP) PO SCH ×3 (09:23→18:12)
[2017-11-02] MEDS: LACOSAMIDE 50 MG TABLET PO SCH (09:24)
[2017-11-02] MEDS: VITAMIN B COMP W-C 1 EA TABLET PO SCH (09:24)
[2017-11-02] MEDS: NIFEdipine E.R. 90 MG TABLET (FP) PO SCH (09:45)
[2017-11-02] MEDS: LISINOPRIL 10 MG TABLET (FP) PO SCH (09:45)
--- NOTE | 2017-11-02 12:14 | DS ---
Physical Examination Vital Signs: Vital Signs Temperature 97.7 F 11/02/17 06:00 Pulse Rate 80 11/02/17 10:00 Respiratory Rate 18 11/02/17 10:00 Blood Pressure 156/80 11/02/17 10:00 O2 Sat by Pulse Oximetry (%) 98 11/01/17 20:00 Labs: CBC, BMP 10/31/17 06:50 10/31/17 06:50 Discharge Summary Reason For Visit: DIALYSIS COMPLICATION Current Active Problems Dialysis complication (Acute) Condition: Improved - Instructions Diet, Activity, Other Instructions: Please return to the ED with new, persistent, or worsening symptoms. Please follow-up with providers as indicated. New medications: Ativan 1mg to be given 1 hour prior to dialysis. Referrals: Yanick Jacobson MD [Primary Care Provider] - 1 Week Rani Vleasquez MD [Staff Physician] - 1 Week Disposition: HOME - Home Medications Comprehensive Discharge Medication List: Ambulatory Orders Labetalol HCl [Normodyne -] 600 mg PO TID #90 tablet 10/09/17 Lacosamide [Vimpat -] 150 mg PO BID #60 tab MDD 2 10/09/17 Nifedipine ER [Procardia XL -] 90 mg PO BID #60 tab.er.24 10/09/17 Sevelamer Carbonate [Renvela -] 1,600 mg PO TIDCM #90 tab 10/09/17 Vitamin B Comp W-C [Nephro-Claudia -] 1 tablet PO DAILY #30 tablet 10/09/17 hydrALAZINE HCL [Apresoline -] 50 mg PO TID #90 tablet 10/09/17 Lisinopril [Prinivil] 10 mg PO DAILY #30 tablet 10/11/17 Acetaminophen [Tylenol .Regular Strength -] 650 mg PO Q6H PRN tablet 11/02/17 LORazepam [Ativan] 1 mg PO MOWEFR #12 tablet MDD 1MG 11/02/17
[2017-11-02] MEDS ORDERED: SODIUM CHLORIDE 250 ML IV PRN (14:37)
[2017-11-02] MEDS ORDERED: EPOETIN ALFA 10,000 UNIT/1 ML VIAL IVPUSH ONE (14:45)
[2017-11-02] MEDS ORDERED: HEPARIN NA (PORCINE) 5,000 UNITS/ML 1ML VIAL IVPUSH ONE (14:45)
[2017-11-02 14:50] VITALS: TEMP 98.2
[2017-11-02 15:16] LABS: HEMATOCRIT 27.1 % (35.4-49); HEMOGLOBIN 9.1 GM/dL (11.7-16.9); MCH 29.3 pg (25.7-33.7); MCHC 33.6 g/dl (32.0-35.9); MEAN CELL VOLUME 87.2 fl (80-96); MEAN PLT VOLUME 8.3 fl (7.5-11.1); PLATELET COUNT 262 K/MM3 (134-434); RBC 3.11 M/mm3 (4.00-5.60); RDW 15.1 % (11.9-15.9); WHITE BLOOD COUNT 6.8 K/mm3 (4.0-10.0)
[2017-11-02 15:53] LABS: CHLORIDE 97 mmol/L (98-107); POTASSIUM 4.4 mmol/L (3.5-5.1); SODIUM 135 mmol/L (136-145)
--- NOTE | 2017-11-02 15:55 | PN ---
Progress Note, Physician History of Present Illness: Pt seen and examined at bedside. He is tolerating HD. - Current Medication List Current Medications: Active Medications Acetaminophen (Tylenol -) 650 mg PO Q6H PRN PRN Reason: FEVER Last Admin: 10/31/17 21:22 Dose: 650 mg Hydralazine HCl (Apresoline -) 50 mg PO TID [facility] Last Admin: 11/02/17 14:36 Dose: Not Given Labetalol HCl (Normodyne -) 600 mg PO TID [facility] Last Admin: 11/02/17 14:36 Dose: Not Given Lacosamide (Vimpat -) 150 mg PO BID [facility] Last Admin: 11/02/17 09:24 Dose: 150 mg Lacosamide (Vimpat -) 75 mg PO MOWEFR [facility] Lisinopril (Prinivil) 10 mg PO DAILY [facility] Last Admin: 11/02/17 09:45 Dose: 10 mg Lorazepam (Ativan -) 1 mg PO MOWEFR [facility] Last Admin: 11/02/17 11:48 Dose: 1 mg Multivit/Ca Carb/B Cmplx/FA/Prenat (Nephro-Claudia -) 1 tablet PO DAILY [facility] Last Admin: 11/02/17 09:24 Dose: 1 tablet Nifedipine (Procardia Xl -) 90 mg PO BID [facility] Last Admin: 11/02/17 09:45 Dose: 90 mg Sevelamer Carbonate (Renvela -) 1,600 mg PO TIDCM [facility] Last Admin: 11/02/17 11:46 Dose: 1,600 mg - Objective Vital Signs: Vital Signs Temperature 98.2 F 11/02/17 14:48 Pulse Rate 80 11/02/17 15:45 Respiratory Rate 18 11/02/17 15:45 Blood Pressure 140/79 11/02/17 15:45 O2 Sat by Pulse Oximetry (%) 98 11/01/17 20:00 Constitutional: Yes: Calm Eyes: Yes: Conjunctiva Clear HENT: Yes: Atraumatic Neck: Yes: Supple Cardiovascular: Yes: S1, S2 Respiratory: Yes: CTA Bilaterally Gastrointestinal: Yes: Soft Genitourinary: Yes: Incontinence Musculoskeletal: Yes: WNL Edema: No Neurological: Yes: Pre-Existing Deficit Labs: CBC, BMP 11/02/17 14:30 Problem List - Problems (1) Dialysis complication Code(s): T82.9XXA - UNSP COMP OF CARDIAC AND VASCULAR PROSTH DEV/GRFT, INIT (2) Anemia Code(s): D64.9 - ANEMIA, UNSPECIFIED (3) Autism Code(s): F84.0 - AUTISTIC DISORDER (4) ESRD (end stage renal disease) Code(s): N18.6 - END STAGE RENAL DISEASE (5) Seizures Code(s): R56.9 - UNSPECIFIED CONVULSIONS Assessment/Plan Current Medications Generic Name Dose Route Start Last Admin Trade Name Freq PRN Reason Stop Dose Admin Acetaminophen 650 mg 10/31/17 20:33 10/31/17 21:22 Tylenol - PO 650 mg Q6H PRN Administration FEVER Hydralazine HCl 50 mg 10/30/17 22:00 11/02/17 14:36 Apresoline - PO Not Given TID LANE Labetalol HCl 600 mg 10/30/17 22:00 11/02/17 14:36 Normodyne - PO Not Given TID LANE Lacosamide 150 mg 10/30/17 22:00 11/02/17 09:24 Vimpat - PO [address] Administration Lacosamide 75 mg 11/02/17 08:00 Vimpat - PO MOWEFR LANE Lisinopril 10 mg 10/31/17 10:00 11/02/17 09:45 Prinivil PO [address] Administration Lorazepam 1 mg 11/02/17 08:00 11/02/17 11:48 Ativan - PO [address] Administration Multivit/Ca Carb/B Cmplx/FA/Prenat 1 tablet 10/31/17 10:00 11/02/17 09:24 Nephro-Claudia - PO [address] Administration Nifedipine 90 mg 10/30/17 22:00 11/02/17 09:45 Procardia Xl - PO [address] Administration Sevelamer Carbonate 1,600 mg 10/31/17 08:00 11/02/17 11:46 Renvela - PO 1,[address] Administration Impression 1. ESRD 2. autism 3. HTN 4. anemia 5. epilepsy 6. hx of pleural effusions Plan - HD today - pt has HD scheduled as outpt for next week - plan discussed with mother - please send a script for ativan on discharge - will follow Dr Velasquez
[2017-11-02 16:12] LABS: ANION GAP 11 (8-16); BLOOD UREA NITROGEN 32 mg/dL (7-18); CO2 27 mmol/L (21-32); GLUCOSE,RANDOM 84 mg/dL (74-106)
[2017-11-02 16:46] LABS: CREATININE 10.2 mg/dL (0.7-1.3)
[2017-11-02 18:18] VITALS: BP 132/73; PULSE 78
== END 2017-11-02 18:27 | disposition home or self-care (01) ==
LOC: JER 12:09 → JERBED 18:17 → J5S 21:34
PROVIDERS: ADMIT Hospitalist; ATTEND Registered Nurse
PROC: 3E033GC Introduction of Other Therapeutic Substance into Peripheral Vein, Percutaneous Approach (ICD-10-PCS; principal; 2017-10-30)
PROC: 3E023GC Introduction of Other Therapeutic Substance into Muscle, Percutaneous Approach (ICD-10-PCS; 2017-10-30)
DX: F91.8 Other conduct disorders (principal); Z99.2 Dependence on renal dialysis; I12.0 Hypertensive chronic kidney disease with stage 5 chronic kidney disease or end stage renal disease; N18.6 End stage renal disease; G40.909 Epilepsy, unspecified, not intractable, without status epilepticus; F84.0 Autistic disorder; D64.9 Anemia, unspecified
CPT/HCPCS: 36415; 76000-TC-FY; 80048; 80053; 83735; 84100; 85025; 85027; 96372; 96374; 96375; 96376; 99281-25; G0378; J0885; J1644

== ENCOUNTER 2017-11-25 20:43 | Inpatient (IN) | payer OTHER, BC ==
[2017-11-25] MEDS ORDERED: LORazepam 2 MG/ML SDV VIAL ONE (20:56)
[2017-11-25 21:12] LABS: BASO % 0.7 % (0-2.0); EOS % 0.3 % (0-4.5); HEMATOCRIT 32.7 % (35.4-49); HEMOGLOBIN 10.5 GM/dL (11.7-16.9); LYMPH % 40.9 % (8-40); MCH 28.7 pg (25.7-33.7); MCHC 32.2 g/dl (32.0-35.9); MEAN CELL VOLUME 89.1 fl (80-96); MEAN PLT VOLUME 8.1 fl (7.5-11.1); MONO % 5.8 % (3.8-10.2); NEUT % 52.3 % (42.8-82.8); PLATELET COUNT 296 K/MM3 (134-434); RBC 3.67 M/mm3 (4.00-5.60); WHITE BLOOD COUNT 5.8 K/mm3 (4.0-10.0)
[2017-11-25] MEDS ORDERED: RAPID SEQUENCE INTUBATION KIT NR ONE (21:20)
[2017-11-25 21:29] LABS: ALBUMIN 3.4 g/dl (3.4-5.0); ANION GAP 14 (8-16); BILIRUBIN,TOTAL 0.4 mg/dL (0.2-1.0); BLOOD UREA NITROGEN 34 mg/dL (7-18); CALCIUM 8.9 mg/dL (8.5-10.1); CHLORIDE 98 mmol/L (98-107); CO2 26 mmol/L (21-32); GLUCOSE,RANDOM 172 mg/dL (74-106); POTASSIUM 5.2 mmol/L (3.5-5.1); SGOT/AST 15 U/L (15-37); SGPT/ALT 16 U/L (12-78); SODIUM 138 mmol/L (136-145); TOT PROT 6.9 g/dl (6.4-8.2)
[2017-11-25 21:30] LABS: ALK PHOS 111 U/L (45-117)
[2017-11-25 21:36] LABS: CREATININE 9.2 mg/dL (0.7-1.3)
--- NOTE | 2017-11-25 21:39 | PDOC ---
History of Present Illness - General Chief Complaint: Dialysis Shunt Problem Stated Complaint: DIALYSIS PORT PROBLEM Time Seen by Provider: 11/25/17 20:49 - History of Present Illness Initial Comments: 22 year old male with PMH significant for HTN, seizure disorder (on vimpat), autism, and ESRD on HD (T, Th, Sat via port while L AC fistula is maturing) presenting to the ED after compromising the dialysis port in his right back that was bleeding profusely and subsequently seizing in the ambulance ride over to [facility]. During the ride his bleeding was stabilized with pressure. After arriving to [facility] he was apparently at his baseline but then began to display respiratory difficulty and lost palpable pulse for approximately 1 minute during which he received two rounds epi, one round of ca-gluconate, after which he achieved ROSC. Central line was placed and patient was intubated using 100 joe and 20 etomidate. After which he was sedated with midazolam. Mother at bedside denies any other symptoms at home. No fevers, chills, nausea, vomiting, diarrhea, constipation, urinary symptoms, or other illness. 11/25/17 22:16 Past History - Past Medical History Allergies/Adverse Reactions: Allergies Allergy/AdvReac Type Severity Reaction Status Date / Time cefprozil [From Cefzil] Allergy Intermediate Rash Verified 11/25/17 20:47 Home Medications: Ambulatory Orders Labetalol HCl [Normodyne -] 600 mg PO TID #90 tablet 10/09/17 Lacosamide [Vimpat -] 150 mg PO BID #60 tab MDD 2 10/09/17 Nifedipine ER [Procardia XL -] 90 mg PO BID #60 tab.er.24 10/09/17 Sevelamer Carbonate [Renvela -] 1,600 mg PO TIDCM #90 tab 10/09/17 Vitamin B Comp W-C [Nephro-Claudia -] 1 tablet PO DAILY #30 tablet 10/09/17 hydrALAZINE HCL [Apresoline -] 50 mg PO TID #90 tablet 10/09/17 Lisinopril [Prinivil] 10 mg PO DAILY #30 tablet 10/11/17 Acetaminophen [Tylenol .Regular Strength -] 650 mg PO Q6H PRN tablet 11/02/17 LORazepam [Ativan] 1 mg PO MOWEFR #12 tablet MDD 1MG 11/02/17 Asthma: No Cancer: No Cardiac Disorders: No CVA: No COPD: No CHF: No DVT: No Dementia: No Diabetes: No Dialysis: Yes GI Disorders: No Disorders: Yes (acute renal failure) HTN: Yes Liver Disease: No Seizures: Yes (SEIZURES) Thyroid Disease: No - Surgical History Abdominal Surgery: Yes (yogesh inguinal surgery) - Immunization History Td Vaccination: No - Suicide/Smoking/Psychosocial Hx Smoking Status: No Smoking History: Never smoked Years of Tobacco Use: 0 Have you smoked in the past 12 months: No Number of Cigarettes Smoked Daily: 0 Information on smoking cessation initiated: No Hx Alcohol Use: No Drug/Substance Use Hx: No Substance Use Type: None Hx Substance Use Treatment: No Review of Systems - Review of Systems Able to Perform ROS?: No (Sedated and intubated) *Physical Exam - Vital Signs Last Vital Signs Temp Pulse Resp BP Pulse Ox 83 16 110/79 100 11/25/17 21:37 11/25/17 21:37 11/25/17 21:37 11/25/17 21:37 - Physical Exam General Appearance: Yes: Nourished, Appropriately Dressed, Other (sedated). No : Apparent Distress HEENT: positive: EOMI, ZARINA, Normal ENT Inspection Neck: positive: Trachea midline (Very anterior laryngeal prominence), Normal Thyroid. negative: Tender Respiratory/Chest: positive: Lungs Clear, Normal Breath Sounds. negative: Chest Tender, Respiratory Distress Cardiovascular: positive: Regular Rhythm, Regular Rate Gastrointestinal/Abdominal: positive: Normal Bowel Sounds, Flat, Soft. negative : Tender Male Genitalia: positive: normal genitalia. negative: discharge Musculoskeletal: positive: Other. negative: Normal Inspection (contracted agsainst ) Integumentary: positive: Normal Color, Dry, Warm Neurologic: positive: Other (sedated). negative: Responsive ED Treatment Course - LABORATORY CBC & Chemistry Diagram: 11/25/17 21:05 11/25/17 21:05 - ADDITIONAL ORDERS Additional order review: Laboratory Results 11/25/17 21:05 Sodium 138 Potassium 5.2 H Chloride 98 Carbon Dioxide 26 Anion Gap 14 BUN 34 H Creatinine 9.2 H* Creat Clearance w eGFR 7.15 Random Glucose 172 H D Calcium 8.9 Total Bilirubin 0.4 AST 15 ALT 16 Alkaline Phosphatase 111 Total Protein 6.9 Albumin 3.4 11/25/17 21:05 RBC 3.67 L MCV 89.1 MCHC 32.2 RDW 16.0 H MPV 8.1 Neutrophils % 52.3 D Lymphocytes % 40.9 H D Monocytes % 5.8 Eosinophils % 0.3 D Basophils % 0.7 - Medications Given in the ED: ED Medications Discontinued Medications Generic Name Dose Route Start Last Admin Trade Name Freq PRN Reason Stop Dose Admin Lorazepam 2 mg 11/25/17 21:00 11/25/17 21:00 Ativan Injection - IVPUSH 11/25/17 21:01 2 mg NOW ONE Administration Medical Decision Making - Medical Decision Making 22 year old male with ESRD, seizure disorder, and autism presenting s/p bleeding from dialysis site, seizure, and cardiac arrest in our ED. This episode of arrest might have been due to a second seizure. Author was not in the room at the time but called by the attending to check the pulse while attending was performing CPR. Pulse was not easily palpable during CPR but faint after cessation of CPR. Patient was given two rounds of epi and pulse was strong with Sinus tachycardia on monitor. Patient then intubated and sedated with Midazolam for post intubation sedation. Admitted to ICU and signed out to hospitalist service. 11/25/17 22:44 *DC/Admit/Observation/Transfer Diagnosis at time of Disposition: Seizure, Cardiac arrest - Discharge Dispostion Condition at time of disposition: Guarded Decision to Admit order: Yes - Referrals Referrals: Rani Velasquez MD [Primary Care Provider] - - Patient Instructions - Post Discharge Activity
[2017-11-25 21:41] LABS: INR 0.94 (0.82-1.09); PROTHROMBIN TIME (PATIENT) 10.6 SEC (9.7-13.0)
[2017-11-25] MEDS ORDERED: MIDAZOLAM 100 MG in SODIUM CHLORIDE 100 ML IVPB SCH (22:00)
--- NOTE | 2017-11-25 22:07 | PDOC ---
Attending Attestation - HPI HPI: 11/25/17 23:16 Code called at 8:58 pm, followed CPR compression at 8:58 pm. Epi given at 8:58 pm Non Rebreather mask placed. No pulse at 9:00 pm Epi given at 9:01 pm Pulse noted at 9:01 pm. Calcium given at 9:02 pm. 9:03 pulse noted, BP of 217/115, and O2 of 96% 9:06 pm O2 of 96% was noted 9:07 pm O2 of 93% was noted. 9:08 central line placed on the R. femoral. Vitals checked at 9:10 pm: BP of 144/74 and O2 of 100%. 9:25 pm 20 etomidate given 9:26 pm 50 joe given. Intubated at 9:27 (20 @ Lip) O2 sat of 100% BP checked at 9:28 pm 112/69 50 joe at 9:29 pm 9:30 anne placed (no urine) Vitals check at 9:32 pm, BP of 103/69, HR 90 and O2 of 96 9:35 zero tital volume machine off, bagging. <Yun Silva - Last Filed: 11/25/17 23:29> - Resident Resident Name: Shy Raya - ED Attending Attestation I have performed the following: I have examined & evaluated the patient, The case was reviewed & discussed with the resident, I agree w/resident's findings & plan - Physicial Exam PE: 11/26/17 06:14 Agree with resident exam - Critical Care Time Total Critical Care Time: 60 Critical Care Statement: The care of this patient involved high complexity decision making to prevent further life threatening deterioration of the patient 's condition and/or to evaluate & treat vital organ system(s) failure or risk of failure. - Medical Decision Making 11/26/17 06:14 Pt arrived with blood loss from a torn permacath; pt has a hx of pulling out caths from his body; today he tried pulling his cath, and broke it with moderate blood loss. Pt had a seizure en route to the ER. Once pt was stablized in the ER, he suffered another seizure. We controlled it with ativan. Pt had thready pulse and no HR heard after the seizure, so a code was called and he was resuscitated with 2 Epi, 1 gluc; 1 calcium and IV hydration and CPR. Pt regained heartbeat; he is post ictal, so we decided to intubate the patient. 7.5 ETT placed by resident under my supervision. Pt has ESRD, and he has a fistula that is to be used for furture dialysis. Pt admitted to the ICU. <Janelle Hernandez - Last Filed: 11/26/17 06:21> Heart Score/ECG Review - ECG Impressions Comment:: 11/25/17 23:29 EKG was read by Dr. Hernandez at 2043 Normal sinus rhythm with vent. Rate of 90 bpm, TN interval of 190 ms, QRS duration of 132 ms, QT/QTc of 434/530 ms, and P-R-T axes of (61)(232)(64). Possible left atrial enlargement Nonspecific AV block. Questionable RBBB. <Yun Silva - Last Filed: 11/25/17 23:29>
[2017-11-25 22:44] LABS: ARTERIAL BLD GAS O2 SATURATION 83.4 % (90-98.9); ARTERIAL BLOOD GAS PCO2 59.9 mmHg (35-45); ARTERIAL BLOOD GAS PO2 57.7 mmHg (80-100); ARTERIAL BLOOD GAS pH 7.29 (7.35-7.45)
[2017-11-25 22:47] LABS: ALLENS TEST POSITIVE
[2017-11-25 22:49] LABS: CARBOXYHEMOGLOBIN 1.5 gm% (0.5-2.0)
--- NOTE | 2017-11-25 23:49 | HP ---
CHIEF COMPLAINT: broke HD cath, arrest in ED PCP: Dr. Yanick Jacobson ([place]) HISTORY OF PRESENT ILLNESS: Pt intubated and sedated. History taken from pt's mother. Pt is a 22 y/o M with PMH Autism, HTN, CDK on HD TTS started 1-2 months ago, seizure disorder. Pt had cath placed on anterior chest in the past and had L av fistula placed (scheduled for use starting next week). Pt pulled cath ot, so a new line was placed on the patients back. This evening, pt reached back and broke the catheter and tore some skin around the port site. Ambulance was called. Pt's mother placed a clip on the leaking port and achieved hemostasis. Per report, en route to the ED, pt seized in the ambulance. Again in the ED pt seized and contracted neck leading to a bradypnic episode. Pulses were lost and pt was coded for 2 min after which ROSC was achieved. Pt intubated, sedated on Midazolam, and fem line was placed. Last HD yest morning. Mother denies pt having had any recent changes to explain seizure. No fever, chills, change in medications. ER course was notable for: (1) K 5.2, (2) EKG remarkable for RBBB, TWI in V1,V2, AvR (3) pt had cardiac arrest as described above Recent Travel: denies PAST MEDICAL HISTORY: Autism, HTN on ESRD, Seizures PAST SURGICAL HISTORY: IV lines Social History: Smoking: denies Alcohol: denies Drugs: denies Family History: denies Allergies cefprozil [From Cefzil] Allergy (Intermediate, Verified 11/25/17 23:05) Rash HOME MEDICATIONS: Home Medications Medication Instructions Recorded Labetalol HCl [Normodyne -] 600 mg PO TID #90 tablet 10/09/17 Lacosamide [Vimpat -] 150 mg PO BID #60 tab MDD 2 10/09/17 Nifedipine ER [Procardia XL -] 90 mg PO BID #60 tab.er.24 10/09/17 Sevelamer Carbonate [Renvela -] 1,600 mg PO TIDCM #90 tab 10/09/17 Vitamin B Comp W-C [Nephro-Claudia -] 1 tablet PO DAILY #30 tablet 10/09/17 hydrALAZINE HCL [Apresoline -] 50 mg PO TID #90 tablet 10/09/17 Lisinopril [Prinivil] 10 mg PO DAILY #30 tablet 10/11/17 Acetaminophen [Tylenol .Regular 650 mg PO Q6H PRN tablet 11/02/17 Strength -] LORazepam [Ativan] 1 mg PO MOWEFR #12 tablet MDD 1MG 11/02/17 REVIEW OF SYSTEMS Unable to obtain PHYSICAL EXAMINATION Vital Signs - 24 hr 11/25/17 11/25/17 11/25/17 20:44 21:14 21:27 Temperature Pulse Rate 96 H 100 H Pulse Rate [ Apical] Respiratory 25 H 12 Rate Blood Pressure 104/76 Blood Pressure [Right Arm] O2 Sat by Pulse 88 L Oximetry (%) 11/25/17 11/25/17 11/25/17 21:37 21:53 23:09 Temperature 98 F Pulse Rate Pulse Rate [ 83 87 Apical] Respiratory 16 12 12 Rate Blood Pressure Blood Pressure 110/79 129/97 [Right Arm] O2 Sat by Pulse 100 100 Oximetry (%) Gen: Intubated, sedated HEENT: ET tube in place, NCAT Neck: no jvd Cardio: difficult auscultation 2/2 vent. rrr, normal s1s2, no mrg appreciated Pulm: good air entry b/l, coarse breath sounds Abd: soft, no organomegally. Right femoral line Back: line at R medial to scapula. Skin torn. Line clipped. no bleeding. Ext: 2+ pulses. LUE AV fistula at AC with thrill and weak pulse distally. Laboratory Results - last 24 hr 11/25/17 11/25/17 11/25/17 21:05 21:05 21:05 WBC 5.8 RBC 3.67 L Hgb 10.5 L Hct 32.7 L D MCV 89.1 MCH 28.7 MCHC 32.2 RDW 16.0 H Plt Count 296 MPV 8.1 Absolute Neuts (auto) 3.0 Neutrophils % 52.3 D Lymphocytes % 40.9 H D Monocytes % 5.8 Eosinophils % 0.3 D Basophils % 0.7 Nucleated RBC % 0 PT with INR 10.60 INR 0.94 Anticoagulation Therapy Puncture Site ABG pH ABG pCO2 at Pt Temp ABG pO2 at Pt Temp ABG HCO3 ABG O2 Sat (Measured) ABG O2 Content ABG Base Excess Wisam Test Carboxyhemoglobin Methemoglobin O2 Delivery Device Oxygen Flow Rate Vent Mode Vent Rate Mechanical Rate PEEP Pressure Support Vent Sodium 138 Potassium 5.2 H Chloride 98 Carbon Dioxide 26 Anion Gap 14 BUN 34 H Creatinine 9.2 H* Creat Clearance w eGFR 7.15 Random Glucose 172 H D Calcium 8.9 Total Bilirubin 0.4 AST 15 ALT 16 Alkaline Phosphatase 111 Total Protein 6.9 Albumin 3.4 Blood Type Antibody Screen 11/25/17 11/25/17 11/25/17 21:05 22:15 22:32 WBC RBC Hgb Hct MCV MCH MCHC RDW Plt Count MPV Absolute Neuts (auto) Neutrophils % Lymphocytes % Monocytes % Eosinophils % Basophils % Nucleated RBC % PT with INR INR Anticoagulation Therapy No Result Required. Puncture Site Right radial ABG pH 7.29 L D ABG pCO2 at Pt Temp 59.9 H D ABG pO2 at Pt Temp 57.7 L ABG HCO3 27.8 H ABG O2 Sat (Measured) 83.4 L ABG O2 Content 11.0 L ABG Base Excess 1.0 Wisam Test Positive Carboxyhemoglobin 1.5 Methemoglobin 1.6 H O2 Delivery Device Mech:vent Oxygen Flow Rate 50 Vent Mode A/c Vent Rate 12 Mechanical Rate No Result Required. PEEP 5.0 Pressure Support Vent 450 Sodium Potassium Chloride Carbon Dioxide Anion Gap BUN Creatinine Creat Clearance w eGFR Random Glucose Calcium Total Bilirubin AST ALT Alkaline Phosphatase Total Protein Albumin Blood Type O POSITIVE Antibody Screen Negative ASSESSMENT/PLAN: Pt is a 22 y/o M with Autism, refractory HTN, seizure disorder who presented to the ED for self induced traumatic injury cath on his back. Pt had seizure in ambulance and in ED. Pt had cardiac arrest in ED. Pt admitted to ICU. #s/p Cardiac arrest -ROSC achieved in ED -Intubated, sedated -Midazolam drip -fem line placed #seizure disorder -seizure x2 this evening -Vimpat #HTN -holding BP meds #CKD -Recently started on HD -last HD yest morning #FEN -Not on fluids -K 5.2. For HD Tu -NPO #PPx -Hep Sub Q #Dispo -admit to ICU Ray Hutson MD PGY-2 IM Visit type - Emergency Visit Emergency Visit: Yes Care time: The patient presented to the Emergency Department on the above date and was hospitalized for further evaluation of their emergent condition. - New Patient This patient is new to me today: Yes Date on this admission: 11/25/17 - Critical Care Critical Care patient: Yes Total Critical Care Time (in minutes): 30 Critical Care Statement: The care of this patient involved high complexity decision making to prevent further life threatening deterioration of the patient 's condition and/or to evaluate & treat vital organ system(s) failure or risk of failure. Hospitalist Screening - Colonoscopy Questionnaire Colonoscopy Questionnaire: Colonoscopy Questionnaire - Patient: 50 - 75 years old and never had a screening colonoscopy: Unknown History of colon or rectal polyps, or CA: Unknown History of IBD, Crohn's disease or UC: Unknown History of abdominal radiation therapy as a child: Unknown - Relative: 1 with colon or rectal CA, or polyps at age 60 or younger: Unknown Colon or rectal CA diagnosed at age 45 or younger: Unknown Multiple relatives with colon or rectal CA: Unknown - Outcome: Screening Result: Negative Screen
[2017-11-26] MEDS: HEPARIN NA (PORCINE) 5,000 UNITS/ML 1ML VIAL SQ SCH ×4 (01:28→21:30)
--- NOTE | 2017-11-26 02:30 | PN ---
Teaching Attending Note Name of Resident: Ray Hutson ATTENDING PHYSICIAN STATEMENT I saw and evaluated the patient. I reviewed the resident's note and discussed the case with the resident. I agree with the resident's findings and plan as documented. SUBJECTIVE: 22M pmh developmental delay, ESRD, HTN, Seizure disorder, BIBA after pulling and damaging permacath. after pulling multiple prior permacath one was placed on his back. He was ablet o pull off the caps and per mom lead to severe bleeding. In the ED patient developed a seizure, and following this had a unresponsive, arrest with ROSC in ~ 2 minutes. was intubated after ROSC. Suspect hypoxic asystole arrest given the seizure and bleed prior. monitor CBC for acute drop in hgb Consult Dr Jameson for permacath removal and possily initiate HD via left arm AVF Neurology eval for seizure. Vent management,, repeat ABG admit to ICU
[2017-11-26] MEDS ORDERED: PROPOFOL 1,000,000 MCG/100 ML VIAL IVPB SCH (03:00)
--- NOTE | 2017-11-26 04:16 | RAPID ---
Physical Examination Vital Signs: Vital Signs Temperature 97.4 F L 11/26/17 00:31 Pulse Rate 80 11/26/17 01:00 Respiratory Rate 16 11/26/17 03:12 Blood Pressure 124/82 11/26/17 01:00 O2 Sat by Pulse Oximetry (%) 100 11/26/17 00:56 Labs: CBC, BMP 11/25/17 21:05 11/25/17 21:05 Rapid Response - Rapid Response Assessment: Rapid response was called at 3:57am -On entering room pt was unresponsive w/ pulse surrounded by hospital staff. -Pt had self extubated himself but vitals remained stable. -Sat 100% while being manually ventilated. Propofol and versed drips were discontinued. -Pt placed on NRB mask and sat 100%. vitals signs stable. -Pt deescalated to 2 L O2 NC sat 100%. -ABG drawn. -will closely monitor pt w/ low threshold for reintubation
[2017-11-26 04:35] LABS: ALLENS TEST POSITIVE; ARTERIAL BLD GAS O2 SATURATION 94.5 % (90-98.9); ARTERIAL BLOOD GAS BASE EXCESS 3.6 meq/l (-2-2); ARTERIAL BLOOD GAS PCO2 40.8 mmHg (35-45); ARTERIAL BLOOD GAS PO2 69.7 mmHg (80-100); ARTERIAL BLOOD GAS pH 7.44 (7.35-7.45)
[2017-11-26 05:45] LABS: BASO % 0.2 % (0-2.0); EOS % 1.1 % (0-4.5); HEMATOCRIT 27.2 % (35.4-49); HEMOGLOBIN 8.7 GM/dL (11.7-16.9); LYMPH % 12.6 % (8-40); MCH 28.2 pg (25.7-33.7); MCHC 32.2 g/dl (32.0-35.9); MEAN CELL VOLUME 87.8 fl (80-96); MONO % 5.7 % (3.8-10.2); NEUT % 80.4 % (42.8-82.8); PLATELET COUNT 226 K/MM3 (134-434); RDW 16.2 % (11.9-15.9); WHITE BLOOD COUNT 9.2 K/mm3 (4.0-10.0)
[2017-11-26 06:02] LABS: INR 0.97 (0.82-1.09)
[2017-11-26 06:12] LABS: ALBUMIN 2.9 g/dl (3.4-5.0); ANION GAP 10 (8-16); BILIRUBIN,TOTAL 0.4 mg/dL (0.2-1.0); BLOOD UREA NITROGEN 37 mg/dL (7-18); CALCIUM 8.7 mg/dL (8.5-10.1); CHLORIDE 101 mmol/L (98-107); CO2 30 mmol/L (21-32); GLUCOSE,RANDOM 73 mg/dL (74-106); MAGNESIUM 2.4 mg/dL (1.8-2.4); PHOSPHOROUS 4.5 mg/dL (2.5-4.9); POTASSIUM 5.3 mmol/L (3.5-5.1); SGOT/AST 14 U/L (15-37); SGPT/ALT 12 U/L (12-78); SODIUM 141 mmol/L (136-145); TOT PROT 5.8 g/dl (6.4-8.2)
[2017-11-26 06:16] LABS: ALK PHOS 85 U/L (45-117)
[2017-11-26 06:27] LABS: CREATININE 9.2 mg/dL (0.7-1.3)
[2017-11-26] MEDS: SEVELAMER CARBONATE 800 MG TAB (FP) PO SCH ×4 (08:22→17:51)
--- NOTE | 2017-11-26 09:38 | CONSULT ---
Consult - text type - Consultation Consultation Note: Neurology CHIEF COMPLAINT: broke HD cath, arrest in ED HISTORY OF PRESENT ILLNESS: 22 y/o M with PMH Autism, HTN, CDK on HD TTS started 1-2 months ago, seizure disorder. He had cath placed on anterior chest in the past and had L av fistula placed (scheduled for use starting next week). He reportedly pulled cath out, so a new line was placed on the patients back. On evening of admission, he reached back and broke the catheter and tore some skin around the port site. Ambulance was called. Pt's mother placed a clip on the leaking port and achieved hemostasis. Per report, en route to the ED, pt seized in the ambulance. Again in the ED pt seized and contracted neck leading to a bradypnic episode. Pulses were lost and pt was coded for 2 min after which ROSC was achieved. Pt intubated, sedated on Midazolam, and fem line was placed. He was sedated and intubated and sent to ICU where he currently is. Now extubated and on facemask. Per mother, he had been on depakote 1250mg in the past and was decreased due to concern for platelet count. Prior to his event, last seizure was in August. He has been on Vimpat 150mg twice daily. No longer on sedation and mental status improving. No new seizures overnight. Recent Travel: denies PAST MEDICAL HISTORY: Autism, HTN on ESRD, Seizures PAST SURGICAL HISTORY: IV lines Social History: Smoking: denies Alcohol: denies Drugs: denies Family History: denies Allergies cefprozil [From Cefzil] Allergy (Intermediate, Verified 11/25/17 23:05) Rash HOME MEDICATIONS: Home Medications Medication Instructions Recorded Labetalol HCl [Normodyne -] 600 mg PO TID #90 tablet 10/09/17 Lacosamide [Vimpat -] 150 mg PO BID #60 tab MDD 2 10/09/17 Nifedipine ER [Procardia XL -] 90 mg PO BID #60 tab.er.24 10/09/17 Sevelamer Carbonate [Renvela -] 1,600 mg PO TIDCM #90 tab 10/09/17 Vitamin B Comp W-C [Nephro-Claudia -] 1 tablet PO DAILY #30 tablet 10/09/17 hydrALAZINE HCL [Apresoline -] 50 mg PO TID #90 tablet 10/09/17 Lisinopril [Prinivil] 10 mg PO DAILY #30 tablet 10/11/17 Acetaminophen [Tylenol .Regular 650 mg PO Q6H PRN tablet 11/02/17 Strength -] LORazepam [Ativan] 1 mg PO MOWEFR #12 tablet MDD 1MG 11/02/17 REVIEW OF SYSTEMS Unable to obtain PHYSICAL EXAMINATION Vital Signs Period Temp Pulse Resp BP Sys/Mora Pulse Ox Last 24 Hr 97.4 F-98.1 F 66-100 12-25 104-129/42-97 88-100 Gen: AWake, alert, not following commands HEENT: EOMI, pupils reactive to light Neck: no jvd Cardio: decreased lung sounds rrr, normal s1s2, no mrg appreciated Pulm: good air entry b/l, coarse breath sounds Abd: soft, no organomegally. Right femoral line Back: line at R medial to scapula. Skin torn. Line clipped. no bleeding. Ext: 2+ pulses. LUE AV fistula at AC with thrill and weak pulse distally. Neuro: awake, tracking examiner, not following complex commands, moves all ext grossly, sensory intact to LT Laboratory Results - last 24 hr 11/25/17 11/25/17 11/25/17 21:05 21:05 21:05 WBC 5.8 RBC 3.67 L Hgb 10.5 L Hct 32.7 L D MCV 89.1 MCH 28.7 MCHC 32.2 RDW 16.0 H Plt Count 296 MPV 8.1 Absolute Neuts (auto) 3.0 Neutrophils % 52.3 D Lymphocytes % 40.9 H D Monocytes % 5.8 Eosinophils % 0.3 D Basophils % 0.7 Nucleated RBC % 0 PT with INR 10.60 INR 0.94 Anticoagulation Therapy Puncture Site ABG pH ABG pCO2 at Pt Temp ABG pO2 at Pt Temp ABG HCO3 ABG O2 Sat (Measured) ABG O2 Content ABG Base Excess Wisam Test Carboxyhemoglobin Methemoglobin O2 Delivery Device Oxygen Flow Rate Vent Mode Vent Rate Mechanical Rate PEEP Pressure Support Vent Sodium 138 Potassium 5.2 H Chloride 98 Carbon Dioxide 26 Anion Gap 14 BUN 34 H Creatinine 9.2 H* Creat Clearance w eGFR 7.15 Random Glucose 172 H D Calcium 8.9 Total Bilirubin 0.4 AST 15 ALT 16 Alkaline Phosphatase 111 Total Protein 6.9 Albumin 3.4 Blood Type Antibody Screen 11/25/17 11/25/17 11/25/17 21:05 22:15 22:32 WBC RBC Hgb Hct MCV MCH MCHC RDW Plt Count MPV Absolute Neuts (auto) Neutrophils % Lymphocytes % Monocytes % Eosinophils % Basophils % Nucleated RBC % PT with INR INR Anticoagulation Therapy No Result Required. Puncture Site Right radial ABG pH 7.29 L D ABG pCO2 at Pt Temp 59.9 H D ABG pO2 at Pt Temp 57.7 L ABG HCO3 27.8 H ABG O2 Sat (Measured) 83.4 L ABG O2 Content 11.0 L ABG Base Excess 1.0 Wisam Test Positive Carboxyhemoglobin 1.5 Methemoglobin 1.6 H O2 Delivery Device [facility]:vent Oxygen Flow Rate 50 Vent Mode A/c Vent Rate 12 Mechanical Rate No Result Required. PEEP 5.0 Pressure Support Vent 450 Sodium Potassium Chloride Carbon Dioxide Anion Gap BUN Creatinine Creat Clearance w eGFR Random Glucose Calcium Total Bilirubin AST ALT Alkaline Phosphatase Total Protein Albumin Blood Type O POSITIVE Antibody Screen Negative ASSESSMENT/PLAN: 22 y/o M with PMH Autism, HTN, CDK on HD TTS started 1-2 months ago, seizure disorder. He had cath placed on anterior chest in the past and had L av fistula placed (scheduled for use starting next week). He reportedly pulled cath out, so a new line was placed on the patients back. On evening of admission, he reached back and broke the catheter and tore some skin around the port site. Ambulance was called. Pt's mother placed a clip on the leaking port and achieved hemostasis. Per report, en route to the ED, pt seized in the ambulance. Again in the ED pt seized and contracted neck leading to a bradypnic episode. Pulses were lost and pt was coded for 2 min after which ROSC was achieved. Pt intubated, sedated on Midazolam, and fem line was placed. He was sedated and intubated and sent to ICU where he currently is. Now extubated and on facemask. Per mother, he had been on depakote 1250mg in the past and was decreased due to concern for platelet count. He has been on Vimpat 150mg twice daily. No longer on sedation and mental status improving. Recommend restarting depakote 500mg twice daily for added protection monitor platelet counts Continue HD, slow flow HD if possible Avoid large volume shifts Maintian hydration Monitor BP, maintain normotensive range monitor lytes DVTppx Critical care 35 mins
[2017-11-26] MEDS: LACOSAMIDE 50 MG TABLET PO SCH ×2 (09:57→21:30)
[2017-11-26] MEDS ORDERED: PNEUMOC 13-VAL CONJ-DIP CRM/PF 0.5 ML DISP.SYRIN IM ONE (10:00)
--- NOTE | 2017-11-26 10:37 | EKG ---
Test Reason : Blood Pressure : / mmHG Vent. Rate : 090 BPM Atrial Rate : 090 BPM P-R Int : 190 ms QRS Dur : 132 ms QT Int : 434 ms P-R-T Axes : 061 232 064 degrees QTc Int : 530 ms NORMAL SINUS RHYTHM POSSIBLE LEFT ATRIAL ENLARGEMENT RIGHT BUNDLE BRANCH BLOCK ABNORMAL ECG WHEN COMPARED WITH ECG OF 18-OCT-2017 17:21, RIGHT BUNDLE BRANCH BLOCK HAS REPLACED NON-SPECIFIC INTRA-VENTRICULAR CONDUCTION BLOCK Confirmed by JHONATHAN BILLS, SHAILESH ([id number]) on 11/26/2017 10:36:55 AM Referred By: Confirmed By:SHAILESH RING MD
[2017-11-26] MEDS: MUPIROCIN 2% TOPICAL OINTMENT FOR DECOLONIZATION NS SCH ×2 (10:38→21:30)
--- NOTE | 2017-11-26 12:30 | PN ---
Teaching Attending Note Name of Resident: Yanick Mauro ATTENDING PHYSICIAN STATEMENT I saw and evaluated the patient. I reviewed the resident's note and discussed the case with the resident. I agree with the resident's findings and plan as documented. SUBJECTIVE: Patient seen and examined in the ICU. 22 M, Autism, HTN, CDK on HD, and seizure disorder. He pulled his HD access and broke the closing mechanism. His mother apparently placed the slip back on and achieved hemostasis. Apparently the patient seized in the ambulance. he went into cardiac arrest. ROSC after 2 minutes. He was intubated and sedated. Now extubated. Awake and interacting on 100% NRBM. Intake & Output 11/23/17 11/24/17 11/25/17 11/26/17 23:59 23:59 23:59 23:59 Intake Total 50 Output Total 0 Balance 50 Weight 180 lb 151 lb Last Vital Signs Temp Pulse Resp BP Pulse Ox 97.6 F 76 20 134/73 99 11/26/17 10:00 11/26/17 12:00 11/26/17 12:00 11/26/17 12:00 11/26/17 09:00 Active Medications Chlorhexidine Gluconate (Hibiclens For Decolonization -) 1 applic TP HS [facility] Heparin Sodium (Porcine) (Heparin -) 5,000 unit SQ TID [facility] Last Admin: 11/26/17 06:24 Dose: 5,000 unit Lacosamide (Vimpat -) 150 mg PO BID [facility] Last Admin: 11/26/17 09:57 Dose: 150 mg Multivit/Ca Carb/B Cmplx/FA/Prenat (Nephro-Claudia -) 1 tablet PO DAILY [facility] Mupirocin (Bactroban Ointment (For Decolonization) -) 1 applic NS BID [facility] Stop: 12/01/17 09:59 Last Admin: 11/26/17 10:38 Dose: 1 applic Sevelamer Carbonate (Renvela -) 1,600 mg PO TIDCM [facility] Gen: Awake, alert, extubated HEENT: EOMI, pupils reactive to light Neck: (-) JVD Cardio: S1S2 Pulm: few basilar rhonchi Abd: soft, no organomegally. Back: line at R medial to scapula. Skin torn. Line clipped. no bleeding. Ext: 2+ pulses. LUE AV fistula at AC with thrill Neuro: awake, tracking, moves all extremities Laboratory Results - last 24 hr 11/25/17 11/25/17 11/25/17 21:04 21:05 21:05 WBC 5.8 RBC 3.67 L Hgb 10.5 L Hct 32.7 L D MCV 89.1 MCH 28.7 MCHC 32.2 RDW 16.0 H Plt Count 296 MPV 8.1 Absolute Neuts (auto) 3.0 Neutrophils % 52.3 D Lymphocytes % 40.9 H D Monocytes % 5.8 Eosinophils % 0.3 D Basophils % 0.7 Nucleated RBC % 0 PT with INR 10.60 INR 0.94 PTT (Actin FS) Anticoagulation Therapy Puncture Site ABG pH ABG pCO2 at Pt Temp ABG pO2 at Pt Temp ABG HCO3 ABG O2 Sat (Measured) ABG O2 Content ABG Base Excess Wisam Test Carboxyhemoglobin Methemoglobin O2 Delivery Device Oxygen Flow Rate Vent Mode Vent Rate Mechanical Rate PEEP Pressure Support Vent Sodium Potassium Chloride Carbon Dioxide Anion Gap BUN Creatinine Creat Clearance w eGFR POC Glucometer 199.78358 Random Glucose Calcium Phosphorus Magnesium Total Bilirubin AST ALT Alkaline Phosphatase Creatine Kinase Troponin I Total Protein Albumin Blood Type Antibody Screen 11/25/17 11/25/17 11/25/17 21:05 21:05 22:15 WBC RBC Hgb Hct MCV MCH MCHC RDW Plt Count MPV Absolute Neuts (auto) Neutrophils % Lymphocytes % Monocytes % Eosinophils % Basophils % Nucleated RBC % PT with INR INR PTT (Actin FS) Anticoagulation Therapy Puncture Site ABG pH ABG pCO2 at Pt Temp ABG pO2 at Pt Temp ABG HCO3 ABG O2 Sat (Measured) ABG O2 Content ABG Base Excess Wisam Test Carboxyhemoglobin 1.5 Methemoglobin 1.6 H O2 Delivery Device Oxygen Flow Rate Vent Mode Vent Rate Mechanical Rate PEEP Pressure Support Vent Sodium 138 Potassium 5.2 H Chloride 98 Carbon Dioxide 26 Anion Gap 14 BUN 34 H Creatinine 9.2 H* Creat Clearance w eGFR 7.15 POC Glucometer Random Glucose 172 H D Calcium 8.9 Phosphorus Magnesium Total Bilirubin 0.4 AST 15 ALT 16 Alkaline Phosphatase 111 Creatine Kinase Troponin I Total Protein 6.9 Albumin 3.4 Blood Type O POSITIVE Antibody Screen Negative 11/25/17 11/26/17 11/26/17 22:32 04:23 04:30 WBC RBC Hgb Hct MCV MCH MCHC RDW Plt Count MPV Absolute Neuts (auto) Neutrophils % Lymphocytes % Monocytes % Eosinophils % Basophils % Nucleated RBC % PT with INR INR PTT (Actin FS) 30.8 Anticoagulation Therapy No Result Required. No Result Required. Puncture Site Right radial Right radial ABG pH 7.29 L D 7.44 D ABG pCO2 at Pt Temp 59.9 H D 40.8 D ABG pO2 at Pt Temp 57.7 L 69.7 L D ABG HCO3 27.8 H 27.5 H ABG O2 Sat (Measured) 83.4 L 94.5 ABG O2 Content 11.0 L 11.6 L ABG Base Excess 1.0 3.6 H Wisam Test Positive Positive Carboxyhemoglobin Methemoglobin O2 Delivery Device Mech:vent Nasal Oxygen Flow Rate 50 2.5 Vent Mode A/c No Result Required. Vent Rate 12 No Result Required. Mechanical Rate No Result Required. No Result Required. PEEP 5.0 Pressure Support Vent 450 No Result Required. Sodium Potassium Chloride Carbon Dioxide Anion Gap BUN Creatinine Creat Clearance w eGFR POC Glucometer Random Glucose Calcium Phosphorus Magnesium Total Bilirubin AST ALT Alkaline Phosphatase Creatine Kinase Troponin I Total Protein Albumin Blood Type Antibody Screen 11/26/17 11/26/17 11/26/17 04:30 04:30 04:30 WBC 9.2 RBC 3.10 L Hgb 8.7 L Hct 27.2 L D MCV 87.8 MCH 28.2 MCHC 32.2 RDW 16.2 H Plt Count 226 D MPV 8.0 Absolute Neuts (auto) 7.4 Neutrophils % 80.4 D Lymphocytes % 12.6 D Monocytes % 5.7 Eosinophils % 1.1 D Basophils % 0.2 Nucleated RBC % 0 PT with INR 11.00 INR 0.97 PTT (Actin FS) Anticoagulation Therapy Puncture Site ABG pH ABG pCO2 at Pt Temp ABG pO2 at Pt Temp ABG HCO3 ABG O2 Sat (Measured) ABG O2 Content ABG Base Excess Wisam Test Carboxyhemoglobin Methemoglobin O2 Delivery Device Oxygen Flow Rate Vent Mode Vent Rate Mechanical Rate PEEP Pressure Support Vent Sodium 141 Potassium 5.3 H Chloride 101 Carbon Dioxide 30 Anion Gap 10 BUN 37 H Creatinine 9.2 H* Creat Clearance w eGFR 7.15 POC Glucometer Random Glucose 73 L D Calcium 8.7 Phosphorus 4.5 Magnesium 2.4 Total Bilirubin 0.4 AST 14 L ALT 12 D Alkaline Phosphatase 85 D Creatine Kinase 77 Troponin I 0.96 H* D Total Protein 5.8 L Albumin 2.9 L Blood Type Antibody Screen ASSESSMENT/PLAN: Acute CP arrest with ROSC after 2 minutes Malfunctioning HD catheter due to patient manipulation Autism HTN ERSD on HD Seizure disorder. Supplemental O2 to maintain saturation Aspiration precautions Vascular surgery for HD access change Monitor off ABX AEDs per Neuro VTE prophylaxis ICU monitoring Dr Isidro Critical care time spent in reviewing chart, evaluating patient and formulating plan - 36 minutes.
[2017-11-26] MEDS: VITAMIN B COMP W-C 1 EA TABLET PO SCH (12:58)
--- NOTE | 2017-11-26 13:16 | PN ---
Physical Exam: SUBJECTIVE: Briefly, pt brought to hospital due to permacath difficulties 2/2 to trying to remove the line. Pt suffered from acute blood loss and in the ED had a seizure resulting in hypoxia and eventual cardiac arrest. Pt was pulseless for 2 minutes while receiving CPR and ROSC was sustained. Pt during this time was intubated and it was noted last night that 0400 he self-extubated. Today he is moving spontaneously, alert, and slightly agitated (per his baseline ). Pt's HPI is limited due to autism. OBJECTIVE: Vital Signs Period Temp Pulse Resp BP Sys/Mora Pulse Ox Last 24 Hr 97.4 F-98.1 F 66-100 12-25 104-134/42-97 88-100 GENERAL:NAD, awake, alert to spontaneous stimuli HEENT: Nc/AT, TETE, MMM, No JVD noted LUNGS: CTA b/l no wheezes, no crackles, no accessory muscle use. On VM 50% HEART: RRR, S1, S2 without murmur ABDOMEN: Soft, NT/ND, normoactive bowel sounds, no guarding, BACK: Posterior permacath with hub that has been torn/broken off. Slow Oozing blood noted EXTREMITIES: 2+ DP pulses, warm, well-perfused, no edema SKIN: Warm, dry, normal turgor, no rashes or lesions noted Laboratory Results - last 24 hr 11/25/17 11/25/17 11/25/17 21:04 21:05 21:05 WBC 5.8 RBC 3.67 L Hgb 10.5 L Hct 32.7 L D MCV 89.1 MCH 28.7 MCHC 32.2 RDW 16.0 H Plt Count 296 MPV 8.1 Absolute Neuts (auto) 3.0 Neutrophils % 52.3 D Lymphocytes % 40.9 H D Monocytes % 5.8 Eosinophils % 0.3 D Basophils % 0.7 Nucleated RBC % 0 PT with INR 10.60 INR 0.94 PTT (Actin FS) Anticoagulation Therapy Puncture Site ABG pH ABG pCO2 at Pt Temp ABG pO2 at Pt Temp ABG HCO3 ABG O2 Sat (Measured) ABG O2 Content ABG Base Excess Wisam Test Carboxyhemoglobin Methemoglobin O2 Delivery Device Oxygen Flow Rate Vent Mode Vent Rate Mechanical Rate PEEP Pressure Support Vent Sodium Potassium Chloride Carbon Dioxide Anion Gap BUN Creatinine Creat Clearance w eGFR POC Glucometer 199.50209 Random Glucose Calcium Phosphorus Magnesium Total Bilirubin AST ALT Alkaline Phosphatase Creatine Kinase Troponin I Total Protein Albumin Blood Type Antibody Screen 11/25/17 11/25/17 11/25/17 21:05 21:05 22:15 WBC RBC Hgb Hct MCV MCH MCHC RDW Plt Count MPV Absolute Neuts (auto) Neutrophils % Lymphocytes % Monocytes % Eosinophils % Basophils % Nucleated RBC % PT with INR INR PTT (Actin FS) Anticoagulation Therapy Puncture Site ABG pH ABG pCO2 at Pt Temp ABG pO2 at Pt Temp ABG HCO3 ABG O2 Sat (Measured) ABG O2 Content ABG Base Excess Wisam Test Carboxyhemoglobin 1.5 Methemoglobin 1.6 H O2 Delivery Device Oxygen Flow Rate Vent Mode Vent Rate Mechanical Rate PEEP Pressure Support Vent Sodium 138 Potassium 5.2 H Chloride 98 Carbon Dioxide 26 Anion Gap 14 BUN 34 H Creatinine 9.2 H* Creat Clearance w eGFR 7.15 POC Glucometer Random Glucose 172 H D Calcium 8.9 Phosphorus Magnesium Total Bilirubin 0.4 AST 15 ALT 16 Alkaline Phosphatase 111 Creatine Kinase Troponin I Total Protein 6.9 Albumin 3.4 Blood Type O POSITIVE Antibody Screen Negative 11/25/17 11/26/17 11/26/17 22:32 04:23 04:30 WBC RBC Hgb Hct MCV MCH MCHC RDW Plt Count MPV Absolute Neuts (auto) Neutrophils % Lymphocytes % Monocytes % Eosinophils % Basophils % Nucleated RBC % PT with INR INR PTT (Actin FS) 30.8 Anticoagulation Therapy No Result Required. No Result Required. Puncture Site Right radial Right radial ABG pH 7.29 L D 7.44 D ABG pCO2 at Pt Temp 59.9 H D 40.8 D ABG pO2 at Pt Temp 57.7 L 69.7 L D ABG HCO3 27.8 H 27.5 H ABG O2 Sat (Measured) 83.4 L 94.5 ABG O2 Content 11.0 L 11.6 L ABG Base Excess 1.0 3.6 H Wisam Test Positive Positive Carboxyhemoglobin Methemoglobin O2 Delivery Device Mech:vent Nasal Oxygen Flow Rate 50 2.5 Vent Mode A/c No Result Required. Vent Rate 12 No Result Required. Mechanical Rate No Result Required. No Result Required. PEEP 5.0 Pressure Support Vent 450 No Result Required. Sodium Potassium Chloride Carbon Dioxide Anion Gap BUN Creatinine Creat Clearance w eGFR POC Glucometer Random Glucose Calcium Phosphorus Magnesium Total Bilirubin AST ALT Alkaline Phosphatase Creatine Kinase Troponin I Total Protein Albumin Blood Type Antibody Screen 11/26/17 11/26/17 11/26/17 04:30 04:30 04:30 WBC 9.2 RBC 3.10 L Hgb 8.7 L Hct 27.2 L D MCV 87.8 MCH 28.2 MCHC 32.2 RDW 16.2 H Plt Count 226 D MPV 8.0 Absolute Neuts (auto) 7.4 Neutrophils % 80.4 D Lymphocytes % 12.6 D Monocytes % 5.7 Eosinophils % 1.1 D Basophils % 0.2 Nucleated RBC % 0 PT with INR 11.00 INR 0.97 PTT (Actin FS) Anticoagulation Therapy Puncture Site ABG pH ABG pCO2 at Pt Temp ABG pO2 at Pt Temp ABG HCO3 ABG O2 Sat (Measured) ABG O2 Content ABG Base Excess Wisam Test Carboxyhemoglobin Methemoglobin O2 Delivery Device Oxygen Flow Rate Vent Mode Vent Rate Mechanical Rate PEEP Pressure Support Vent Sodium 141 Potassium 5.3 H Chloride 101 Carbon Dioxide 30 Anion Gap 10 BUN 37 H Creatinine 9.2 H* Creat Clearance w eGFR 7.15 POC Glucometer Random Glucose 73 L D Calcium 8.7 Phosphorus 4.5 Magnesium 2.4 Total Bilirubin 0.4 AST 14 L ALT 12 D Alkaline Phosphatase 85 D Creatine Kinase 77 Troponin I 0.96 H* D Total Protein 5.8 L Albumin 2.9 L Blood Type Antibody Screen Active Medications Generic Name Dose Route Start Last Admin Trade Name Freq PRN Reason Stop Dose Admin Chlorhexidine Gluconate 1 applic 11/26/17 22:00 Hibiclens For Decolonization - TP HS [facility] Heparin Sodium (Porcine) 5,000 unit 11/25/17 23:30 11/26/17 06:24 Heparin - SQ 5,[address] Administration Labetalol HCl 600 mg 11/26/17 14:00 Normodyne - PO TID LANE Lacosamide 150 mg 11/26/17 10:00 11/26/17 09:57 Vimpat - PO [address] Administration Multivit/Ca Carb/B Cmplx/FA/Prenat 1 tablet 11/26/17 10:00 Nephro-Claudia - PO DAILY LANE Mupirocin 1 applic 11/26/17 10:00 11/26/17 10:38 Bactroban Ointment (For Decolonization) - NS 12/01/17 09:[address] Administration Sevelamer Carbonate 1,600 mg 11/26/17 08:00 11/26/17 13:04 Renvela - PO 1,[address] Administration ASSESSMENT/PLAN: Neuro: Pt off of sedation; seems to be back at baseline mentation Seizure: --known history --most likely 2/2 to increased stress response from acute blood loss --Continue Lacosamide 150mg BID PO --Neurology on board Resp: Acute hypoxic resp failure --2/2 to seizure and cardiac arrest --self-extubated dial polisher --Continue to wean O2 requirements; not on home O2 --Currently 50% VM with saturation of 100% --Maintain aspiration precautions --SpO2>90% Cardiac: S/p Cardiac arrest --Arrest most likely 2/2 to hypoxia from seizure --Antihypertensives were previously held --Can restart as needed; currently pt normotensive --Monitor BP Renal: HD requiring permacath placement --Dr. Kevin Jameson of vascular on board --Will discuss pt with --Permacath in place on XR, however external hub is broken warranting exchange ESRD --not in fluid overload --Not in extreme electrolyte disturbances --No imminent need for Hd Hematology: Acute blood loss anemia --Hgb 2gm drop due to blood loss from permacath --Monitor --No active signs of bleeding at this point FEN: Fluids: None currently Electrolyte abnormalities: None currently Nutrition: NPO except meds; can upgrade diet if he can eat for permacath exchange PPX: DVT - SCDs Dispo: Continue monitoring Case discussed with Dr. Dwaine Mauro, DO - IM PGY-2 Visit type - Emergency Visit Emergency Visit: No - New Patient This patient is new to me today: No - Critical Care Critical Care patient: Yes Total Critical Care Time (in minutes): 35 Critical Care Statement: The care of this patient involved high complexity decision making to prevent further life threatening deterioration of the patient 's condition and/or to evaluate & treat vital organ system(s) failure or risk of failure.
[2017-11-26] MEDS: LABETALOL HCL 200 MG TABLET (FP) PO SCH ×2 (13:50→21:31)
[2017-11-26] MEDS ORDERED: LORazepam 1 MG TABLET PO SCH (16:45)
--- NOTE | 2017-11-26 16:50 | CONSULT ---
Consult Consult Specialty:: Nephrology Reason for Consultation:: ESRD - History of Present Illness Chief Complaint: dislodged HD cath History of Present Illness: Pt is a 22 year old male with pmhx of ESRD, DM, HTN and epilepsy who presents to the ER after pulling on his HD catheter. He was bleeding on his way to the hospital. He also had seizures. He became unresponsive and lost post for about a minute. He was given a few rounds of epi. He was intubated. He woke up and self extubated himself. He is awake and at baseline. - History Source History Provided By: Patient - Past Medical History BROTHEL KEEPER: Yes: Seizure, Other (autism) Cardio/Vascular: Yes: HTN Pulmonary: Yes: Other (pleural effusion) Renal/: Yes: Renal Inusuff, Hemodialysis Heme/Onc: Yes: Anemia - Past Surgical History Past Surgical History: Yes: AV Fistula/Graft, Hernia Repair - Alcohol/Substance Use Hx Alcohol Use: No - Smoking History Smoking history: Never smoked Have you smoked in the past 12 months: No Aproximately how many cigarettes per day: 0 - Social History Usual Living Arrangement: With Parent Home Medications - Allergies Allergies/Adverse Reactions: Allergies Allergy/AdvReac Type Severity Reaction Status Date / Time cefprozil [From Cefzil] Allergy Intermediate Rash Verified 11/25/17 23:05 - Home Medications Home Medications: Ambulatory Orders Labetalol HCl [Normodyne -] 600 mg PO TID #90 tablet 10/09/17 Lacosamide [Vimpat -] 150 mg PO BID #60 tab MDD 2 10/09/17 Nifedipine ER [Procardia XL -] 90 mg PO BID #60 tab.er.24 10/09/17 Sevelamer Carbonate [Renvela -] 1,600 mg PO TIDCM #90 tab 10/09/17 Vitamin B Comp W-C [Nephro-Claudia -] 1 tablet PO DAILY #30 tablet 10/09/17 hydrALAZINE HCL [Apresoline -] 50 mg PO TID #90 tablet 10/09/17 Lisinopril [Prinivil] 10 mg PO DAILY #30 tablet 10/11/17 Acetaminophen [Tylenol .Regular Strength -] 650 mg PO Q6H PRN tablet 11/02/17 LORazepam [Ativan] 1 mg PO MOWEFR #12 tablet MDD 1MG 11/02/17 Isosorbide Mononitrate [Isosorbide Mononitrate ER] 30 mg PO BID 11/26/17 Family Disease History - Family Disease History Family Disease History: Other: Father (htn) Review of Systems Unable to obtain ROS, reason: pt not verbal Physical Exam Vital Signs: Vital Signs Temperature 97.6 F 11/26/17 16:00 Pulse Rate 72 11/26/17 16:00 Respiratory Rate 20 11/26/17 16:00 Blood Pressure 120/59 11/26/17 16:00 O2 Sat by Pulse Oximetry (%) 100 11/26/17 13:00 Constitutional: Yes: Calm Eyes: Yes: Conjunctiva Clear HENT: Yes: Atraumatic Neck: Yes: Supple Cardiovascular: Yes: S1, S2 Respiratory: Yes: CTA Bilaterally Gastrointestinal: Yes: Soft Renal/: Yes: Incontinence Musculoskeletal: Yes: WNL Edema: No Neurological: Yes: Pre-Existing Deficit Labs: CBC, BMP 11/26/17 04:30 11/26/17 04:30 Imaging - Results Chest X-ray: Report Reviewed Problem List - Problems (1) Cardiac arrest Code(s): I46.9 - CARDIAC ARREST, CAUSE UNSPECIFIED (2) Seizures Code(s): R56.9 - UNSPECIFIED CONVULSIONS (3) ESRD (end stage renal disease) Code(s): N18.6 - END STAGE RENAL DISEASE Assessment/Plan Current Medications Generic Name Dose Route Start Last Admin Trade Name Freq PRN Reason Stop Dose Admin Chlorhexidine Gluconate 1 applic 11/26/17 22:00 Hibiclens For Decolonization - TP HS LANE Heparin Sodium (Porcine) 5,000 unit 11/25/17 23:30 11/26/17 13:55 Heparin - SQ 5,[address] Administration Labetalol HCl 600 mg 11/26/17 14:00 11/26/17 13:50 Normodyne - PO [address] Administration Lacosamide 150 mg 11/26/17 10:00 11/26/17 09:57 Vimpat - PO [address] Administration Lorazepam 1 mg 11/26/17 16:45 Ativan - PO MOWEFR LANE Multivit/Ca Carb/B Cmplx/FA/Prenat 1 tablet 11/26/17 10:00 Nephro-Claudia - PO DAILY LANE Mupirocin 1 applic 11/26/17 10:00 11/26/17 10:38 Bactroban Ointment (For Decolonization) - NS 12/01/17 09:[address] Administration Sevelamer Carbonate 1,600 mg 11/26/17 08:00 11/26/17 13:04 Renvela - PO 1,[address] Administration Impression 1. ESRD 2. autism 3. HTN 4. anemia 5. epilepsy 6. hx of pleural effusions 7. hyperkalemia Plan - vascular eval to remove old catheter and get access - HD in am - monitor pt in ICU - will treat potassium medically for now - cardiology evaluation - neuro eval Dr Velasquez
[2017-11-26] MEDS ORDERED: LORazepam 1 MG TABLET PO PRN (17:13)
[2017-11-26] MEDS ORDERED: SODIUM POLYSTYRENE SULFONATE 15 GM/60 ML BOTTLE PO ONE (17:15)
--- NOTE | 2017-11-26 17:38 | PN ---
Teaching Attending Note Name of Resident: Boby Mooney ATTENDING PHYSICIAN STATEMENT I saw and evaluated the patient. I reviewed the resident's note and discussed the case with the resident. I agree with the resident's findings and plan as documented. SUBJECTIVE:resting comfortable OBJECTIVE: Last Vital Signs Temp Pulse Resp BP Pulse Ox 97.6 F 72 20 120/59 100 11/26/17 16:00 11/26/17 16:00 11/26/17 16:00 11/26/17 16:00 11/26/17 13:00 General NAD, non verbal CV S1 S2 RRR no murmur/rub/gallop Lungs CTA B/l no wheezing/rales/rhonchi Abdomen soft NT/ND extremities LUE fistula with palpable thrill Back +catheter in center of back, one of ports was cut, no active bleeding. no hematoma or fluctuance appreciated ASSESSMENT AND PLAN: 22yo M with PMH autism, ESRD on HD via permacath, seizure and HTN presented to the ER after pt pulled HD catheter out from his back which he has done several times in the past (reason catheter was tunneled to the back) and was found to have significant bleeding and had seizure en route to the ER and again in the ER which led patient to become unresponsive and Code 99 was called. ROSC achieved in 2 minutes and was intubated in the ER. 1. Acute hypoxic respiratory failure- liekly due to being post-ictal. intubated in the ER and unplanned extubation in the ICU. pt currently saturating 100% on non-rebreather. monitor respiratory status 2. Seizure- likely due to large blood volume loss. was on depakote in the past which was stopped due to pancytopenia. neuro evaluated whom the patient is well known to. re-started depakote. monitor CBC closely. frequent neurochecks. seizure precautions 3. Acute blood loss anemia- due to pulling at catheter. repeat CBC and trend. no indication for txn at this time as no signs of active bleeding. 4. ESRD On HD- will have vascular surgery come to remove permacath as likely not functional at this time. will d/w nephro if fistula is mature for use as supposedly HD was supposed to be initiated next week to prevent another permacath placement as this is his 4th time pulling it out. 5. Hyperkalemia- give kayexylate. scheduled HD tomorrow 6. Elevated troponin- first troponin 0.96. liekly due to initiation of CPR. will check 2nd troponin. cardiac monitoring 7. HTN- re-start medications slowly as needed 8. DVT ppx- hep sq 9. MICU 10. spoke with father present at bedside. all questions answered. verbalized understanding and agreement with plan The care of this patient involved high complexity decision making to prevent further life threatening deterioration of the patient's condition and/or to evaluate & treat vital organ system(s) failure or risk of failure. Critical care time spent in reviewing chart, evaluating patient and formulating plan - 45 minutes.
--- NOTE | 2017-11-26 17:58 | PN ---
Physical Exam: SUBJECTIVE: Patient seen and examined OBJECTIVE: Vital Signs Period Temp Pulse Resp BP Sys/Mora Pulse Ox Last 24 Hr 97.4 F-98.1 F 66-100 12-25 104-134/42-99 88-100 GENERAL: The patient is awake, alert, and fully oriented, in no acute distress. HEAD: Normal with no signs of trauma. EYES: PERRL, extraocular movements intact, sclera anicteric, conjunctiva clear. No ptosis. ENT: Ears normal, nares patent, oropharynx clear without exudates, moist mucous membranes. NECK: Trachea midline, full range of motion, supple. LUNGS: Breath sounds equal, clear to auscultation bilaterally, no wheezes, no crackles, no accessory muscle use. HEART: Regular rate and rhythm, S1, S2 without murmur, rub or gallop. ABDOMEN: Soft, nontender, nondistended, normoactive bowel sounds, no guarding, no rebound, no hepatosplenomegaly, no masses. EXTREMITIES: 2+ pulses, warm, well-perfused, no edema. NEUROLOGICAL: Cranial nerves II through XII grossly intact. Normal speech, gait not observed. PSYCH: Normal mood, normal affect. SKIN: Warm, dry, normal turgor, no rashes or lesions noted Laboratory Results - last 24 hr 11/25/17 11/25/17 11/25/17 21:04 21:05 21:05 WBC 5.8 RBC 3.67 L Hgb 10.5 L Hct 32.7 L D MCV 89.1 MCH 28.7 MCHC 32.2 RDW 16.0 H Plt Count 296 MPV 8.1 Absolute Neuts (auto) 3.0 Neutrophils % 52.3 D Lymphocytes % 40.9 H D Monocytes % 5.8 Eosinophils % 0.3 D Basophils % 0.7 Nucleated RBC % 0 PT with INR 10.60 INR 0.94 PTT (Actin FS) Anticoagulation Therapy Puncture Site ABG pH ABG pCO2 at Pt Temp ABG pO2 at Pt Temp ABG HCO3 ABG O2 Sat (Measured) ABG O2 Content ABG Base Excess Wisam Test Carboxyhemoglobin Methemoglobin O2 Delivery Device Oxygen Flow Rate Vent Mode Vent Rate Mechanical Rate PEEP Pressure Support Vent Sodium Potassium Chloride Carbon Dioxide Anion Gap BUN Creatinine Creat Clearance w eGFR POC Glucometer [id number] Random Glucose Calcium Phosphorus Magnesium Total Bilirubin AST ALT Alkaline Phosphatase Creatine Kinase Troponin I Total Protein Albumin Blood Type Antibody Screen 11/25/17 11/25/17 11/25/17 21:05 21:05 22:15 WBC RBC Hgb Hct MCV MCH MCHC RDW Plt Count MPV Absolute Neuts (auto) Neutrophils % Lymphocytes % Monocytes % Eosinophils % Basophils % Nucleated RBC % PT with INR INR PTT (Actin FS) Anticoagulation Therapy Puncture Site ABG pH ABG pCO2 at Pt Temp ABG pO2 at Pt Temp ABG HCO3 ABG O2 Sat (Measured) ABG O2 Content ABG Base Excess Wisam Test Carboxyhemoglobin 1.5 Methemoglobin 1.6 H O2 Delivery Device Oxygen Flow Rate Vent Mode Vent Rate Mechanical Rate PEEP Pressure Support Vent Sodium 138 Potassium 5.2 H Chloride 98 Carbon Dioxide 26 Anion Gap 14 BUN 34 H Creatinine 9.2 H* Creat Clearance w eGFR 7.15 POC Glucometer Random Glucose 172 H D Calcium 8.9 Phosphorus Magnesium Total Bilirubin 0.4 AST 15 ALT 16 Alkaline Phosphatase 111 Creatine Kinase Troponin I Total Protein 6.9 Albumin 3.4 Blood Type O POSITIVE Antibody Screen Negative 11/25/17 11/26/17 11/26/17 22:32 04:23 04:30 WBC RBC Hgb Hct MCV MCH MCHC RDW Plt Count MPV Absolute Neuts (auto) Neutrophils % Lymphocytes % Monocytes % Eosinophils % Basophils % Nucleated RBC % PT with INR INR PTT (Actin FS) 30.8 Anticoagulation Therapy No Result Required. No Result Required. Puncture Site Right radial Right radial ABG pH 7.29 L D 7.44 D ABG pCO2 at Pt Temp 59.9 H D 40.8 D ABG pO2 at Pt Temp 57.7 L 69.7 L D ABG HCO3 27.8 H 27.5 H ABG O2 Sat (Measured) 83.4 L 94.5 ABG O2 Content 11.0 L 11.6 L ABG Base Excess 1.0 3.6 H Wisam Test Positive Positive Carboxyhemoglobin Methemoglobin O2 Delivery Device Mech:vent Nasal Oxygen Flow Rate 50 2.5 Vent Mode A/c No Result Required. Vent Rate 12 No Result Required. Mechanical Rate No Result Required. No Result Required. PEEP 5.0 Pressure Support Vent 450 No Result Required. Sodium Potassium Chloride Carbon Dioxide Anion Gap BUN Creatinine Creat Clearance w eGFR POC Glucometer Random Glucose Calcium Phosphorus Magnesium Total Bilirubin AST ALT Alkaline Phosphatase Creatine Kinase Troponin I Total Protein Albumin Blood Type Antibody Screen 11/26/17 11/26/17 11/26/17 04:30 04:30 04:30 WBC 9.2 RBC 3.10 L Hgb 8.7 L Hct 27.2 L D MCV 87.8 MCH 28.2 MCHC 32.2 RDW 16.2 H Plt Count 226 D MPV 8.0 Absolute Neuts (auto) 7.4 Neutrophils % 80.4 D Lymphocytes % 12.6 D Monocytes % 5.7 Eosinophils % 1.1 D Basophils % 0.2 Nucleated RBC % 0 PT with INR 11.00 INR 0.97 PTT (Actin FS) Anticoagulation Therapy Puncture Site ABG pH ABG pCO2 at Pt Temp ABG pO2 at Pt Temp ABG HCO3 ABG O2 Sat (Measured) ABG O2 Content ABG Base Excess Wisam Test Carboxyhemoglobin Methemoglobin O2 Delivery Device Oxygen Flow Rate Vent Mode Vent Rate Mechanical Rate PEEP Pressure Support Vent Sodium 141 Potassium 5.3 H Chloride 101 Carbon Dioxide 30 Anion Gap 10 BUN 37 H Creatinine 9.2 H* Creat Clearance w eGFR 7.15 POC Glucometer Random Glucose 73 L D Calcium 8.7 Phosphorus 4.5 Magnesium 2.4 Total Bilirubin 0.4 AST 14 L ALT 12 D Alkaline Phosphatase 85 D Creatine Kinase 77 Troponin I 0.96 H* D Total Protein 5.8 L Albumin 2.9 L Blood Type Antibody Screen EKG: RBBB, T-wave inversion in V1,V2 and AvR CXR: No Pneumothorax Active Medications Current Medications Chlorhexidine Gluconate (Hibiclens For Decolonization -) 1 applic TP HS [facility] Divalproex Sodium (Depakote -) 500 mg PO BID [facility] Heparin Sodium (Porcine) (Heparin -) 5,000 unit SQ TID [facility] Last Admin: 11/26/17 13:55 Dose: 5,000 unit Labetalol HCl (Normodyne -) 600 mg PO TID [facility] Last Admin: 11/26/17 13:50 Dose: 600 mg Lacosamide (Vimpat -) 150 mg PO BID [facility] Last Admin: 11/26/17 09:57 Dose: 150 mg Lorazepam (Ativan -) 1 mg PO Q12H PRN PRN Reason: ANXIETY Multivit/Ca Carb/B Cmplx/FA/Prenat (Nephro-Claudia -) 1 tablet PO DAILY [facility] Mupirocin (Bactroban Ointment (For Decolonization) -) 1 applic NS BID [facility] Stop: 12/01/17 09:59 Last Admin: 11/26/17 10:38 Dose: 1 applic Sevelamer Carbonate (Renvela -) 1,600 mg PO TIDCM [facility] Last Admin: 11/26/17 17:51 Dose: 1,600 mg ASSESSMENT/PLAN: Pt is a 22 y/o M with Autism, refractory HTN, seizure disorder who presented to the ED for self induced traumatic injury cath on his back. Pt had seizure in ambulance and in ED. Pt had cardiac arrest in ED. Pt admitted to ICU. #s/p Cardiac arrest vs. Post-ictal state -ROSC achieved in ED -Intubated, sedated -Midazolam drip -fem line placed #seizure disorder -seizure x2 this evening -Vimpat -restarted depakote 500mg BID as per Neuro consult #HTN -restarting labetalol 600mg TID as BP began to rise #CKD -Recently started on HD within the last 2 months -last HD Sunday (11/24) #Anemia -Hgb dropped from 10.7 to 8.7 -monitor CBC q8h -transfuse if Hgb falls below 7 - f/u iron panel ( FE, TIBC and Ferritin) #Hypoxia -saturates well on room air, consider titrating down oxygen from 16L #FEN -Not on fluids -K 5.2. For HD -NPO #PPx -Hep Sub Q #Dispo -admit to ICU Visit type - Emergency Visit Emergency Visit: Yes ED Registration Date: 11/25/17 Care time: The patient presented to the Emergency Department on the above date and was hospitalized for further evaluation of their emergent condition. - New Patient This patient is new to me today: Yes Date on this admission: 11/26/17 - Critical Care Critical Care patient: No - Discharge Referral Referred to [facility] Med [facility].C.: No
[2017-11-26 18:29] LABS: HEMATOCRIT 26.7 % (35.4-49); HEMOGLOBIN 8.4 GM/dL (11.7-16.9); MCH 27.8 pg (25.7-33.7); MCHC 31.3 g/dl (32.0-35.9); MEAN CELL VOLUME 88.7 fl (80-96); MEAN PLT VOLUME 8.4 fl (7.5-11.1); PLATELET COUNT 251 K/MM3 (134-434); RBC 3.01 M/mm3 (4.00-5.60); RDW 16.1 % (11.9-15.9); WHITE BLOOD COUNT 7.9 K/mm3 (4.0-10.0)
[2017-11-26 18:53] LABS: ANION GAP 10 (8-16); BLOOD UREA NITROGEN 43 mg/dL (7-18); CALCIUM 8.6 mg/dL (8.5-10.1); CHLORIDE 100 mmol/L (98-107); CO2 29 mmol/L (21-32); GLUCOSE,RANDOM 98 mg/dL (74-106); POTASSIUM 5.3 mmol/L (3.5-5.1); SODIUM 139 mmol/L (136-145)
[2017-11-26 19:03] LABS: CREATININE 10.4 mg/dL (0.7-1.3)
[2017-11-26] MEDS ORDERED: PT OWN MED DRAWER 7, Y5N ONE (21:25)
[2017-11-26] MEDS: DIVALPROEX SODIUM 500 MG TABLET E.C. PO SCH (21:59)
[2017-11-26] MEDS: CHLORHEXIDINE GLUCONATE 4% CLEANSER FOR DECOLONIZATION TP SCH (21:59)
[2017-11-27] MEDS: HEPARIN NA (PORCINE) 5,000 UNITS/ML 1ML VIAL SQ SCH ×3 (06:11→21:48)
[2017-11-27] MEDS: LABETALOL HCL 200 MG TABLET (FP) PO SCH ×3 (06:11→22:00)
[2017-11-27 06:46] LABS: ALBUMIN 2.9 g/dl (3.4-5.0); ANION GAP 12 (8-16); BLOOD UREA NITROGEN 52 mg/dL (7-18); CALCIUM 8.2 mg/dL (8.5-10.1); CHLORIDE 100 mmol/L (98-107); CO2 28 mmol/L (21-32); GLUCOSE,RANDOM 77 mg/dL (74-106); MAGNESIUM 2.4 mg/dL (1.8-2.4); PHOSPHOROUS 4.5 mg/dL (2.5-4.9); POTASSIUM 5.1 mmol/L (3.5-5.1); SGOT/AST 15 U/L (15-37); SGPT/ALT 14 U/L (12-78); SODIUM 140 mmol/L (136-145)
[2017-11-27 06:55] LABS: ALK PHOS 80 U/L (45-117); BILIRUBIN,TOTAL 0.4 mg/dL (0.2-1.0); TOT PROT 5.8 g/dl (6.4-8.2)
[2017-11-27 07:10] LABS: CREATININE 11.6 mg/dL (0.7-1.3)
[2017-11-27] MEDS: SEVELAMER CARBONATE 800 MG TAB (FP) PO SCH ×3 (08:58→18:17)
--- NOTE | 2017-11-27 09:20 | PN ---
Progress Note (short form) - Note Progress Note: Neurology HISTORY OF PRESENT ILLNESS: 22 y/o M with PMH Autism, HTN, CDK on HD TTS started 1-2 months ago, seizure disorder. He had cath placed on anterior chest in the past and had L av fistula placed (scheduled for use starting next week). He reportedly pulled cath out, so a new line was placed on the patients back. On evening of admission, he reached back and broke the catheter and tore some skin around the port site. Ambulance was called. Pt's mother placed a clip on the leaking port and achieved hemostasis. Per report, en route to the ED, pt seized in the ambulance. Again in the ED pt seized and contracted neck leading to a bradypnic episode. Pulses were lost and pt was coded for 2 min after which ROSC was achieved. Pt intubated, sedated on Midazolam, and fem line was placed. He was sedated and intubated and sent to ICU where he currently is. Now extubated and on facemask. Per mother, he had been on depakote 1250mg in the past and was decreased due to concern for platelet count. Prior to his event, last seizure was in August. He has been on Vimpat 150mg twice daily. No longer on sedation and mental status improving. No new seizures overnight. Started Depakote 500mg twice daily. Active Medications Chlorhexidine Gluconate (Hibiclens For Decolonization -) 1 applic TP HS [facility] Last Admin: 11/26/17 21:59 Dose: 1 applic Divalproex Sodium (Depakote -) 500 mg PO BID [facility] Last Admin: 11/26/17 21:59 Dose: 500 mg Heparin Sodium (Porcine) (Heparin -) 5,000 unit SQ TID [facility] Last Admin: 11/27/17 06:11 Dose: 5,000 unit Labetalol HCl (Normodyne -) 600 mg PO TID [facility] Last Admin: 11/27/17 06:11 Dose: 600 mg Lacosamide (Vimpat -) 150 mg PO BID [facility] Last Admin: 11/26/17 21:30 Dose: 150 mg Lisinopril (Prinivil) 10 mg PO DAILY [facility] Lorazepam (Ativan -) 1 mg PO Q12H PRN PRN Reason: ANXIETY Multivit/Ca Carb/B Cmplx/FA/Prenat (Nephro-Claudia -) 1 tablet PO DAILY [facility] Mupirocin (Bactroban Ointment (For Decolonization) -) 1 applic NS BID [facility] Stop: 12/01/17 09:59 Last Admin: 11/26/17 21:30 Dose: 1 applic Nifedipine (Procardia Xl -) 90 mg PO BID [facility] Sevelamer Carbonate (Renvela -) 1,600 mg PO TIDCM [facility] Last Admin: 11/27/17 08:58 Dose: 1,600 mg PHYSICAL EXAMINATION Vital Signs Temperature 99.3 F 11/27/17 08:00 Pulse Rate 75 11/27/17 08:00 Respiratory Rate 24 11/27/17 08:00 Blood Pressure 140/52 11/27/17 08:00 O2 Sat by Pulse Oximetry (%) 100 11/27/17 08:21 Gen: AWake, alert, not following commands HEENT: EOMI, pupils reactive to light Neck: no jvd Cardio: decreased lung sounds rrr, normal s1s2, no mrg appreciated Pulm: good air entry b/l, coarse breath sounds Abd: soft, no organomegally. Right femoral line Back: line at R medial to scapula. Skin torn. Line clipped. no bleeding. Ext: 2+ pulses. LUE AV fistula at AC with thrill and weak pulse distally. Neuro: awake, tracking examiner, not following complex commands, moves all ext grossly, sensory intact to LT 11/26/17 18:00 11/27/17 05:30 ASSESSMENT/PLAN: 22 y/o M with PMH Autism, HTN, CDK on HD TTS started 1-2 months ago, seizure disorder. He had cath placed on anterior chest in the past and had L av fistula placed (scheduled for use starting next week). He reportedly pulled cath out, so a new line was placed on the patients back. On evening of admission, he reached back and broke the catheter and tore some skin around the port site. Ambulance was called. Pt's mother placed a clip on the leaking port and achieved hemostasis. Per report, en route to the ED, pt seized in the ambulance. Again in the ED pt seized and contracted neck leading to a bradypnic episode. Pulses were lost and pt was coded for 2 min after which ROSC was achieved. Pt intubated, sedated on Midazolam, and fem line was placed. He was sedated and intubated and sent to ICU where he currently is. Now extubated and on facemask. Per mother, he had been on depakote 1250mg in the past and was decreased due to concern for platelet count. He has been on Vimpat 150mg twice daily. No longer on sedation and mental status improving. Started depakote 500mg twice daily for added protection monitor platelet counts Continue HD, slow flow HD if possible Avoid large volume shifts Maintian hydration Monitor BP, maintain normotensive range monitor lytes DVTppx Critical care 35 mins
[2017-11-27] MEDS ORDERED: PT OWN MED DRAWER 7, Y5N ONE ×2 (09:38→21:52)
[2017-11-27] MEDS: NIFEdipine E.R. 90 MG TABLET (FP) PO SCH ×2 (09:43→21:50)
[2017-11-27] MEDS: VITAMIN B COMP W-C 1 EA TABLET PO SCH (09:43)
[2017-11-27] MEDS: LACOSAMIDE 50 MG TABLET PO SCH ×2 (09:43→21:50)
[2017-11-27] MEDS: LISINOPRIL 10 MG TABLET (FP) PO SCH (09:43)
[2017-11-27] MEDS: DIVALPROEX SODIUM 500 MG TABLET E.C. PO SCH ×2 (09:44→22:00)
[2017-11-27] MEDS: MUPIROCIN 2% TOPICAL OINTMENT FOR DECOLONIZATION NS SCH ×2 (09:44→21:48)
[2017-11-27 09:50] LABS: BASO % 0.5 % (0-2.0); EOS % 6.9 % (0-4.5); HEMATOCRIT 23.7 % (35.4-49); HEMOGLOBIN 7.7 GM/dL (11.7-16.9); MCH 28.8 pg (25.7-33.7); MCHC 32.6 g/dl (32.0-35.9); MEAN CELL VOLUME 88.4 fl (80-96); MEAN PLT VOLUME 8.5 fl (7.5-11.1); MONO % 7.6 % (3.8-10.2); PLATELET COUNT 207 K/MM3 (134-434); RBC 2.68 M/mm3 (4.00-5.60); RDW 15.8 % (11.9-15.9); WHITE BLOOD COUNT 9.4 K/mm3 (4.0-10.0)
[2017-11-27 11:04] VITALS: BMI 22.9
--- NOTE | 2017-11-27 12:21 | PN ---
Teaching Attending Note Name of Resident: Ray Peña ATTENDING PHYSICIAN STATEMENT I saw and evaluated the patient. I reviewed the resident's note and discussed the case with the resident. I agree with the resident's findings and plan as documented. SUBJECTIVE: Patient seen and examined in the ICU. Awake and alert. NAD on NC O2. For HD today. Intake & Output 11/24/17 11/25/17 11/26/17 11/27/17 23:59 23:59 23:59 23:59 Intake Total 120 Output Total 0 200 Balance 120 -200 Weight 180 lb 151 lb 151 lb Last Vital Signs Temp Pulse Resp BP Pulse Ox 99.3 F 85 23 153/87 100 11/27/17 08:00 11/27/17 10:00 11/27/17 10:00 11/27/17 10:00 11/27/17 08:21 Active Medications Chlorhexidine Gluconate (Hibiclens For Decolonization -) 1 applic TP HS [facility] Last Admin: 11/26/17 21:59 Dose: 1 applic Divalproex Sodium (Depakote -) 500 mg PO BID [facility] Last Admin: 11/27/17 09:44 Dose: 500 mg Epoetin Mir (Epogen -) 10,000 unit IVPUSH ONCE ONE Stop: 11/27/17 10:31 Heparin Sodium (Porcine) (Heparin -) 5,000 unit SQ TID [facility] Last Admin: 11/27/17 06:11 Dose: 5,000 unit Sodium Chloride (Normal Saline -) 250 mls @ 3,000 mls/hr IV PRN PRN PRN Reason: Hypotension during Dialysis Stop: 11/28/17 10:30 Labetalol HCl (Normodyne -) 600 mg PO TID [facility] Last Admin: 11/27/17 06:11 Dose: 600 mg Lacosamide (Vimpat -) 150 mg PO BID [facility] Last Admin: 11/27/17 09:43 Dose: 150 mg Lisinopril (Prinivil) 10 mg PO DAILY [facility] Last Admin: 11/27/17 09:43 Dose: 10 mg Lorazepam (Ativan -) 1 mg PO Q12H PRN PRN Reason: ANXIETY Last Admin: 11/27/17 11:12 Dose: 1 mg Multivit/Ca Carb/B Cmplx/FA/Prenat (Nephro-Claudia -) 1 tablet PO DAILY [facility] Last Admin: 11/27/17 09:43 Dose: 1 tablet Mupirocin (Bactroban Ointment (For Decolonization) -) 1 applic NS BID [facility] Stop: 12/01/17 09:59 Last Admin: 11/27/17 09:44 Dose: 1 applic Nifedipine (Procardia Xl -) 90 mg PO BID [facility] Last Admin: 11/27/17 09:43 Dose: 90 mg Sevelamer Carbonate (Renvela -) 1,600 mg PO TIDCM [facility] Last Admin: 11/27/17 08:58 Dose: 1,600 mg Gen: Awake, alert, NAD HEENT: EOMI, pupils reactive to light Neck: (-) JVD Cardio: S1S2 Pulm: few basilar rhonchi Abd: soft, no organomegally. Back: line at R medial to scapula. Skin torn. Line clipped. no bleeding. Ext: 2+ pulses. LUE AV fistula at AC with thrill Neuro: awake, moves all extremities Laboratory Results - last 24 hr 11/25/17 11/26/17 11/26/17 21:05 18:00 18:00 WBC 7.9 RBC 3.01 L Hgb 8.4 L Hct 26.7 L MCV 88.7 MCH 27.8 MCHC 31.3 L RDW 16.1 H Plt Count 251 MPV 8.4 Absolute Neuts (auto) Neutrophils % Lymphocytes % Monocytes % Eosinophils % Basophils % Nucleated RBC % Sodium 139 Potassium 5.3 H Chloride 100 Carbon Dioxide 29 Anion Gap 10 BUN 43 H Creatinine 10.4 H* Creat Clearance w eGFR 6.21 Random Glucose 98 D Calcium 8.6 Phosphorus Magnesium Ferritin Total Bilirubin AST ALT Alkaline Phosphatase Creatine Kinase 82 Troponin I 0.32 H D Total Protein Albumin Blood Type O POSITIVE Antibody Screen Negative Crossmatch See Detail 11/27/17 11/27/17 05:30 05:30 WBC 9.4 RBC 2.68 L Hgb 7.7 L Hct 23.7 L MCV 88.4 MCH 28.8 MCHC 32.6 RDW 15.8 Plt Count 207 MPV 8.5 Absolute Neuts (auto) 5.7 Neutrophils % 61.0 D Lymphocytes % 24.0 D Monocytes % 7.6 Eosinophils % 6.9 H D Basophils % 0.5 Nucleated RBC % 0 Sodium 140 Potassium 5.1 Chloride 100 Carbon Dioxide 28 Anion Gap 12 BUN 52 H Creatinine 11.6 H* Creat Clearance w eGFR 5.47 Random Glucose 77 D Calcium 8.2 L Phosphorus 4.5 Magnesium 2.4 Ferritin 169.9 Total Bilirubin 0.4 AST 15 ALT 14 Alkaline Phosphatase 80 Creatine Kinase Troponin I Total Protein 5.8 L Albumin 2.9 L Blood Type Antibody Screen Crossmatch ASSESSMENT/PLAN: Acute CP arrest with ROSC after 2 minutes Malfunctioning HD catheter due to patient manipulation Autism HTN ERSD on HD Seizure disorder. Supplemental O2 to maintain saturation Aspiration precautions Vascular surgery for HD access removal Monitor off ABX AEDs per Neuro VTE prophylaxis Dr Isidro Critical care time spent in reviewing chart, evaluating patient and formulating plan - 36 minutes.
[2017-11-27] MEDS ORDERED: LORazepam 2 MG/ML SDV VIAL ONE (13:59)
[2017-11-27] MEDS ORDERED: LORazepam 2 MG/ML SDV VIAL IM ONE (14:03)
--- NOTE | 2017-11-27 14:41 | PN ---
Teaching Attending Note Name of Resident: Boby Mooney ATTENDING PHYSICIAN STATEMENT I saw and evaluated the patient. I reviewed the resident's note and discussed the case with the resident. I agree with the resident's findings and plan as documented with exceptions below. SUBJECTIVE: Patient seen and examined, awake, pleasant, mother at bedside, no complaints. OBJECTIVE: Vital Signs Period Temp Pulse Resp BP Sys/Mora Pulse Ox Last 24 Hr 97.6 F-99.3 F 68-87 15-24 104-160/52-99 100-100 Intake & Output 11/24/17 11/25/17 11/26/17 11/27/17 23:59 23:59 23:59 23:59 Intake Total 120 Output Total 0 200 Balance 120 -200 Weight 180 lb 151 lb 151 lb General: lying in bed, pleasant in no acute distress Chest: decreased effort but no rales or wheezing appreciated ABdomen:Soft Extremities: no edema Home Medications Medication Instructions Recorded Labetalol HCl [Normodyne -] 600 mg PO TID #90 tablet 10/09/17 Lacosamide [Vimpat -] 150 mg PO BID #60 tab MDD 2 10/09/17 Nifedipine ER [Procardia XL -] 90 mg PO BID #60 tab.er.24 10/09/17 Sevelamer Carbonate [Renvela -] 1,600 mg PO TIDCM #90 tab 10/09/17 Vitamin B Comp W-C [Nephro-Claudia -] 1 tablet PO DAILY #30 tablet 10/09/17 hydrALAZINE HCL [Apresoline -] 50 mg PO TID #90 tablet 10/09/17 Lisinopril [Prinivil] 10 mg PO DAILY #30 tablet 10/11/17 Acetaminophen [Tylenol .Regular 650 mg PO Q6H PRN tablet 11/02/17 Strength -] LORazepam [Ativan] 1 mg PO MOWEFR #12 tablet MDD 1MG 11/02/17 Isosorbide Mononitrate [Isosorbide 30 mg PO BID 11/26/17 Mononitrate ER] Active Medications Chlorhexidine Gluconate (Hibiclens For Decolonization -) [address] Last Admin: 11/26/17 21:59 Dose: 1 applic Divalproex Sodium (Depakote -) 500 mg PO BID [facility] Last Admin: 11/27/17 09:44 Dose: 500 mg Epoetin Mir (Epogen -) 10,000 unit IVPUSH ONCE ONE Stop: 11/27/17 10:31 Heparin Sodium (Porcine) (Heparin -) 5,000 unit SQ TID [facility] Last Admin: 11/27/17 14:18 Dose: Not Given Sodium Chloride (Normal Saline -) 250 mls @ 3,000 mls/hr IV PRN PRN PRN Reason: Hypotension during Dialysis Stop: 11/28/17 10:30 Labetalol HCl (Normodyne -) 600 mg PO TID [facility] Last Admin: 11/27/17 14:23 Dose: 600 mg Lacosamide (Vimpat -) 150 mg PO BID [facility] Last Admin: 11/27/17 09:43 Dose: 150 mg Lisinopril (Prinivil) 10 mg PO DAILY [facility] Last Admin: 11/27/17 09:43 Dose: 10 mg Lorazepam (Ativan -) 1 mg PO Q12H PRN PRN Reason: ANXIETY Last Admin: 11/27/17 11:12 Dose: 1 mg Multivit/Ca Carb/B Cmplx/FA/Prenat (Nephro-Claudia -) 1 tablet PO DAILY [facility] Last Admin: 11/27/17 09:43 Dose: 1 tablet Mupirocin (Bactroban Ointment (For Decolonization) -) 1 applic NS BID [facility] Stop: 12/01/17 09:59 Last Admin: 11/27/17 09:44 Dose: 1 applic Nifedipine (Procardia Xl -) 90 mg PO BID [facility] Last Admin: 11/27/17 09:43 Dose: 90 mg Sevelamer Carbonate (Renvela -) 1,600 mg PO TIDCM [facility] Last Admin: 11/27/17 13:51 Dose: Not Given Laboratory Results - last 24 hr 11/25/17 11/26/17 11/26/17 21:05 18:00 18:00 WBC 7.9 RBC 3.01 L Hgb 8.4 L Hct 26.7 L MCV 88.7 MCH 27.8 MCHC 31.3 L RDW 16.1 H Plt Count 251 MPV 8.4 Absolute Neuts (auto) Neutrophils % Lymphocytes % Monocytes % Eosinophils % Basophils % Nucleated RBC % Sodium 139 Potassium 5.3 H Chloride 100 Carbon Dioxide 29 Anion Gap 10 BUN 43 H Creatinine 10.4 H* Creat Clearance w eGFR 6.21 Random Glucose 98 D Calcium 8.6 Phosphorus Magnesium Ferritin Total Bilirubin AST ALT Alkaline Phosphatase Creatine Kinase 82 Troponin I 0.32 H D Total Protein Albumin Blood Type O POSITIVE Antibody Screen Negative Crossmatch See Detail 11/27/17 11/27/17 05:30 05:30 WBC 9.4 RBC 2.68 L Hgb 7.7 L Hct 23.7 L MCV 88.4 MCH 28.8 MCHC 32.6 RDW 15.8 Plt Count 207 MPV 8.5 Absolute Neuts (auto) 5.7 Neutrophils % 61.0 D Lymphocytes % 24.0 D Monocytes % 7.6 Eosinophils % 6.9 H D Basophils % 0.5 Nucleated RBC % 0 Sodium 140 Potassium 5.1 Chloride 100 Carbon Dioxide 28 Anion Gap 12 BUN 52 H Creatinine 11.6 H* Creat Clearance w eGFR 5.47 Random Glucose 77 D Calcium 8.2 L Phosphorus 4.5 Magnesium 2.4 Ferritin 169.9 Total Bilirubin 0.4 AST 15 ALT 14 Alkaline Phosphatase 80 Creatine Kinase Troponin I Total Protein 5.8 L Albumin 2.9 L Blood Type Antibody Screen Crossmatch ASSESSMENT AND PLAN: 22yo M with PMH autism, ESRD on HD via permacath, seizure and HTN presented to the ER after pt pulled HD catheter out from his back which he has done several times in the past (reason catheter was tunneled to the back) and was found to have significant bleeding and had seizure en route to the ER and again in the ER which led patient to become unresponsive and Code 99 was called. ROSC achieved in 2 minutes and was intubated in the ER. -Acute hypoxic respiratory failure, suspected from seizure/post ictal phase -Seizure, suspecetd from large volume blood loss -Acute blood loss anemia on anemia of chronic disease -ESRD on HD -Hyperkalemia -Elevated troponin, trended down, suspect from CPR vs Demand from above vs ESRD -HTN Plan; Self-extubated, doing well. Neurology input noted. VImpat/Depakote, will need outpatient platelets monitoring (discussed with mother at bedside) Neuro checks/seizure precautions. h/h mild drop overall seems to be equilibrating. Tranfuse 1 unit PRBC with HD today. Discussed with Dr. Velasquez, plan for HD cath and Hd today, monitor K levels. resume lizinopril/nefedipine, labetalol. Start hydralazine in 24 hours if no concerns. DVTPPX heparin subq Dispo pending HD plans. Plan discussed with mother at bedside in detail, all questions answered. Verbalized understanding and in agreement with the plan. Plan discussed with RN, ICU team, Dr. Velasquez. Total critical care time spent 45 min.
[2017-11-27] MEDS ORDERED: HEPARIN NA (PORCINE) 5,000 UNITS/ML 1ML VIAL ONE ×2 (16:26→18:28)
[2017-11-27] MEDS ORDERED: LIDOCAINE HCL 1%, 10 MG/ML (20ML VIAL) ONE (16:26)
--- NOTE | 2017-11-27 16:26 | PN ---
Progress Note, Physician History of Present Illness: Pt seen and examined at bedside. He moved and the AV fistula infiltrated less than ten minutes into HD. - Current Medication List Current Medications: Active Medications Chlorhexidine Gluconate (Hibiclens For Decolonization -) [address] [facility] Last Admin: 11/26/17 21:59 Dose: 1 applic Divalproex Sodium (Depakote -) [address] [facility] Last Admin: 11/27/17 09:44 Dose: 500 mg Epoetin Mir (Epogen -) 10,000 unit IVPUSH ONCE ONE Stop: 11/27/17 10:31 Heparin Sodium (Porcine) (Heparin -) 5,[address] [facility] Last Admin: 11/27/17 14:18 Dose: Not Given Sodium Chloride (Normal Saline -) 250 mls @ 3,000 mls/hr IV PRN PRN PRN Reason: Hypotension during Dialysis Stop: 11/28/17 10:30 Labetalol HCl (Normodyne -) [address] [facility] Last Admin: 11/27/17 14:23 Dose: 600 mg Lacosamide (Vimpat -) [address] [facility] Last Admin: 11/27/17 09:43 Dose: 150 mg Lisinopril (Prinivil) [address] [facility] Last Admin: 11/27/17 09:43 Dose: 10 mg Lorazepam (Ativan -) 1 mg PO Q12H PRN PRN Reason: ANXIETY Last Admin: 11/27/17 11:12 Dose: 1 mg Multivit/Ca Carb/B Cmplx/FA/Prenat (Nephro-Claudia -) [address] [facility] Last Admin: 11/27/17 09:43 Dose: 1 tablet Mupirocin (Bactroban Ointment (For Decolonization) -) [address] [facility] Stop: 12/01/17 09:59 Last Admin: 11/27/17 09:44 Dose: 1 applic Nifedipine (Procardia Xl -) [address] [facility] Last Admin: 11/27/17 09:43 Dose: 90 mg Sevelamer Carbonate (Renvela -) 1,[address] [facility] Last Admin: 11/27/17 13:51 Dose: Not Given - Objective Vital Signs: Vital Signs Temperature 98.5 F 11/27/17 14:00 Pulse Rate 87 11/27/17 14:00 Respiratory Rate 18 11/27/17 14:00 Blood Pressure 151/87 11/27/17 14:00 O2 Sat by Pulse Oximetry (%) 100 11/27/17 08:21 Constitutional: Yes: Calm Eyes: Yes: Conjunctiva Clear Cardiovascular: Yes: S1, S2 Respiratory: Yes: CTA Bilaterally Gastrointestinal: Yes: Normal Bowel Sounds, Soft Genitourinary: Yes: Incontinence Musculoskeletal: Yes: WNL Edema: No Neurological: Yes: Pre-Existing Deficit Labs: CBC, BMP 11/27/17 05:30 11/27/17 05:30 INR, PTT INR 0.97 (0.82-1.09) 11/26/17 04:30 Problem List - Problems (1) Cardiac arrest Code(s): I46.9 - CARDIAC ARREST, CAUSE UNSPECIFIED (2) Seizures Code(s): R56.9 - UNSPECIFIED CONVULSIONS (3) ESRD (end stage renal disease) Code(s): N18.6 - END STAGE RENAL DISEASE Assessment/Plan Current Medications Generic Name Dose Route Start Last Admin Trade Name Freq PRN Reason Stop Dose Admin Chlorhexidine Gluconate 1 applic 11/26/17 22:00 11/26/17 21:59 Hibiclens For Decolonization - TP [address] Administration Divalproex Sodium 500 mg 11/26/17 22:00 11/27/17 09:44 Depakote - PO [address] Administration Epoetin Mir 10,000 unit 11/27/17 10:30 Epogen - IVPUSH 11/27/17 10:31 ONCE ONE Heparin Sodium (Porcine) 5,000 unit 11/25/17 23:30 11/27/17 14:18 Heparin - SQ Not Given TID LANE Sodium Chloride 250 mls @ 3,000 mls/hr 11/27/17 10:30 Normal Saline - IV 11/28/17 10:30 PRN PRN Hypotension during Dialysis Labetalol HCl 600 mg 11/26/17 14:00 11/27/17 14:23 Normodyne - PO [address] Administration Lacosamide 150 mg 11/26/17 10:00 11/27/17 09:43 Vimpat - PO [address] Administration Lisinopril 10 mg 11/27/17 10:00 11/27/17 09:43 Prinivil PO [address] Administration Lorazepam 1 mg 11/26/17 17:13 11/27/17 11:12 Ativan - PO 1 mg Q12H PRN Administration ANXIETY Multivit/Ca Carb/B Cmplx/FA/Prenat 1 tablet 11/26/17 10:00 11/27/17 09:43 Nephro-Claudia - PO [address] Administration Mupirocin 1 applic 11/26/17 10:00 11/27/17 09:44 Bactroban Ointment (For Decolonization) - NS 12/01/17 09:[address] Administration Nifedipine 90 mg 11/27/17 10:00 11/27/17 09:43 Procardia Xl - PO [address] Administration Sevelamer Carbonate 1,600 mg 11/26/17 08:00 11/27/17 13:51 Renvela - PO Not Given TIDCM LANE Impression 1. ESRD 2. autism 3. HTN 4. anemia 5. epilepsy 6. hx of pleural effusions 7. hyperkalemia Plan - keep NPO - vascular to remove old permacath and place new one or a shiley - HD tentatively scheduled for today - access has been a problem as he has pulled multiple catheters - called transplant team and pt will follow with them as outpt for consideration - discussed plan with family Dr Velasquez
[2017-11-27] MEDS ORDERED: KETAMINE HCL 200 MG/20 ML VIAL ONE (17:07)
[2017-11-27] MEDS ORDERED: ePHEDrine SULFATE 50 MG/1 ML AMPULE ONE (17:07)
[2017-11-27] MEDS ORDERED: PROPOFOL 20 ML ONE ×2 (17:10→18:10)
--- NOTE | 2017-11-27 17:21 | PN ---
Physical Exam: SUBJECTIVE: Patient seen and examined today in icu. Unable to matthews history due to patient 's mr. No acute events overnight. OBJECTIVE: Vital Signs Temperature 98.5 F 11/27/17 14:00 Pulse Rate 84 11/27/17 16:00 Respiratory Rate 24 11/27/17 16:00 Blood Pressure 114/78 11/27/17 16:00 O2 Sat by Pulse Oximetry (%) 100 11/27/17 08:21 GENERAL: no acute distress. HEAD: Normal with no signs of trauma. EYES: PERRL, extraocular movements intact, sclera anicteric, conjunctiva clear. No ptosis. ENT: Ears normal, nares patent, oropharynx clear without exudates, moist mucous membranes. NECK: Trachea midline, full range of motion, supple. LUNGS: Breath sounds equal, clear to auscultation bilaterally, no wheezes, no crackles, no accessory muscle use. HEART: Regular rate and rhythm, S1, S2 without murmur, rub or gallop. ABDOMEN: Soft, nontender, nondistended, normoactive bowel sounds, no guarding, no rebound, no hepatosplenomegaly, no masses. EXTREMITIES: 2+ pulses, warm, well-perfused, no edema. NEUROLOGICAL: Cranial nerves II through XII grossly intact. Normal speech, gait not observed. MR. PSYCH: Normal mood, normal affect. SKIN: Warm, dry, normal turgor, permacath on back broken hub, possible skin infection around site of catheter. Laboratory Results - last 24 hr 11/25/17 11/26/17 11/26/17 21:05 18:00 18:00 WBC 7.9 RBC 3.01 L Hgb 8.4 L Hct 26.7 L MCV 88.7 MCH 27.8 MCHC 31.3 L RDW 16.1 H Plt Count 251 MPV 8.4 Absolute Neuts (auto) Neutrophils % Lymphocytes % Monocytes % Eosinophils % Basophils % Nucleated RBC % Sodium 139 Potassium 5.3 H Chloride 100 Carbon Dioxide 29 Anion Gap 10 BUN 43 H Creatinine 10.4 H* Creat Clearance w eGFR 6.21 Random Glucose 98 D Calcium 8.6 Phosphorus Magnesium Ferritin Total Bilirubin AST ALT Alkaline Phosphatase Creatine Kinase 82 Troponin I 0.32 H D Total Protein Albumin Blood Type O POSITIVE Antibody Screen Negative Crossmatch See Detail 11/27/17 11/27/17 05:30 05:30 WBC 9.4 RBC 2.68 L Hgb 7.7 L Hct 23.7 L MCV 88.4 MCH 28.8 MCHC 32.6 RDW 15.8 Plt Count 207 MPV 8.5 Absolute Neuts (auto) 5.7 Neutrophils % 61.0 D Lymphocytes % 24.0 D Monocytes % 7.6 Eosinophils % 6.9 H D Basophils % 0.5 Nucleated RBC % 0 Sodium 140 Potassium 5.1 Chloride 100 Carbon Dioxide 28 Anion Gap 12 BUN 52 H Creatinine 11.6 H* Creat Clearance w eGFR 5.47 Random Glucose 77 D Calcium 8.2 L Phosphorus 4.5 Magnesium 2.4 Ferritin 169.9 Total Bilirubin 0.4 AST 15 ALT 14 Alkaline Phosphatase 80 Creatine Kinase Troponin I Total Protein 5.8 L Albumin 2.9 L Blood Type Antibody Screen Crossmatch Active Medications Generic Name Dose Route Start Last Admin Trade Name Freq PRN Reason Stop Dose Admin Chlorhexidine Gluconate 1 applic 11/26/17 22:00 11/26/17 21:59 Hibiclens For Decolonization - TP [address] Administration Divalproex Sodium 500 mg 11/26/17 22:00 11/27/17 09:44 Depakote - PO [address] Administration Epoetin Mir 10,000 unit 11/27/17 10:30 Epogen - IVPUSH 11/27/17 10:31 ONCE ONE Heparin Sodium (Porcine) 5,000 unit 11/25/17 23:30 11/27/17 14:18 Heparin - SQ Not Given TID LANE Sodium Chloride 250 mls @ 3,000 mls/hr 11/27/17 10:30 Normal Saline - IV 11/28/17 10:30 PRN PRN Hypotension during Dialysis Labetalol HCl 600 mg 11/26/17 14:00 11/27/17 14:23 Normodyne - PO [address] Administration Lacosamide 150 mg 11/26/17 10:00 11/27/17 09:43 Vimpat - PO [address] Administration Lisinopril 10 mg 11/27/17 10:00 11/27/17 09:43 Prinivil PO [address] Administration Lorazepam 1 mg 11/26/17 17:13 11/27/17 11:12 Ativan - PO 1 mg Q12H PRN Administration ANXIETY Multivit/Ca Carb/B Cmplx/FA/Prenat 1 tablet 11/26/17 10:00 11/27/17 09:43 Nephro-Claudia - PO [address] Administration Mupirocin 1 applic 11/26/17 10:00 11/27/17 09:44 Bactroban Ointment (For Decolonization) - NS 12/01/17 09:[address] Administration Nifedipine 90 mg 11/27/17 10:00 11/27/17 09:43 Procardia Xl - PO [address] Administration Sevelamer Carbonate 1,600 mg 11/26/17 08:00 11/27/17 13:51 Renvela - PO Not Given TIDCM LANE ASSESSMENT/PLAN: Pt was brought to [facility] ED due to acute blood loss 2/2 permacath manipulation. while in route to ED, pt had a seizure and subsequently went into cardiac arrest. CPR was performed and ROSC was acdhieved after 2 minutes. Pt eventually transferred to icu. Renal ESRD On HD- Pt scheduled to go to O.R w/ Dr Kc to remove permacath from back and place a shiley cath for HD. AV Fistula in arm not mature for use. Renvela 1600 mg PO TID Nephro on board On epogen Neuro Seizure history Depokote 500 mg PO BID Vimpat 150 mg po bid Cardio HTN- Lisinopril 10 mg po daily Nifedipine 90 mg po bid labetalol 600 mg po tid FEN- Sodium Chloride 250 ml IV PRN Bun/Cr 52/11.6- continue to monitor NPO DVT ppx Heparin 5,000 U sq tid Dispo Continue to monitor in icu Visit type - Emergency Visit Emergency Visit: Yes ED Registration Date: 11/25/17 Care time: The patient presented to the Emergency Department on the above date and was hospitalized for further evaluation of their emergent condition. - New Patient This patient is new to me today: Yes Date on this admission: 11/27/17 - Critical Care Critical Care patient: Yes Total Critical Care Time (in minutes): 35 Critical Care Statement: The care of this patient involved high complexity decision making to prevent further life threatening deterioration of the patient 's condition and/or to evaluate & treat vital organ system(s) failure or risk of failure.
[2017-11-27] MEDS ORDERED: VANCOMYCIN 1,000 MG VIAL (RESTRICTED TO ID ONLY) IVPB ONE (17:30)
[2017-11-27] MEDS ORDERED: VANCOMYCIN 500 MG VIAL (RESTRICTED TO ID ONLY) IVPB ONE (17:30)
[2017-11-27] MEDS ORDERED: VANCOMYCIN 1,000 MG VIAL (RESTRICTED TO ID ONLY) ONE (17:39)
[2017-11-27] MEDS ORDERED: LIDOCAINE HCL 1%, 10 MG/ML (20ML VIAL) NR ONE (17:56)
--- NOTE | 2017-11-27 19:04 | OP ---
Operative Note - Note: Operative Date: 11/27/17 Pre-Operative Diagnosis: Malfunctioning permcath Operation: Exchange of permcath Findings: Fractured catheter Implants: 35 cm permcath Post-Operative Diagnosis: Same as Pre-op Surgeon: Beni Kc Anesthesiologist/DISHTANK OPERATOR: Laverne Vasquez Anesthesia: General Specimens Removed: old catheter Estimated Blood Loss (mls): 25 Drains & Tubes with Location: none Operative Report Dictated: Yes
--- NOTE | 2017-11-27 19:17 | PN ---
Physical Exam: SUBJECTIVE: Patient seen and examined. No acute events overnight. Pt was very mobile and seemed visibly happy. Pt. was able to eat breakfast and was playing on his tablet. OBJECTIVE: Vital Signs Period Temp Pulse Resp BP Sys/Mora Pulse Ox Last 24 Hr 98.2 F-99.3 F 68-87 15-24 104-160/52-87 100-100 GENERAL: The patient is awake, alert, in no acute distress. LUNGS: Breath sounds equal, clear to auscultation bilaterally, no wheezes, no crackles, no accessory muscle use , not on O2 HEART: Regular rate and rhythm, S1, S2 EXTREMITIES: warm, well-perfused, no edema. SKIN: Warm, dry, normal turgor, Laboratory Results - last 24 hr 11/25/17 11/27/17 11/27/17 21:05 05:30 05:30 WBC 9.4 RBC 2.68 L Hgb 7.7 L Hct 23.7 L MCV 88.4 MCH 28.8 MCHC 32.6 RDW 15.8 Plt Count 207 MPV 8.5 Absolute Neuts (auto) 5.7 Neutrophils % 61.0 D Lymphocytes % 24.0 D Monocytes % 7.6 Eosinophils % 6.9 H D Basophils % 0.5 Nucleated RBC % 0 Sodium 140 Potassium 5.1 Chloride 100 Carbon Dioxide 28 Anion Gap 12 BUN 52 H Creatinine 11.6 H* Creat Clearance w eGFR 5.47 Random Glucose 77 D Calcium 8.2 L Phosphorus 4.5 Magnesium 2.4 Ferritin 169.9 Total Bilirubin 0.4 AST 15 ALT 14 Alkaline Phosphatase 80 Total Protein 5.8 L Albumin 2.9 L Blood Type O POSITIVE Antibody Screen Negative Crossmatch See Detail Active Medications Current Medications Chlorhexidine Gluconate (Hibiclens For Decolonization -) 1 applic TP HS [facility] Last Admin: 11/26/17 21:59 Dose: 1 applic Divalproex Sodium (Depakote -) 500 mg PO BID [facility] Last Admin: 11/27/17 09:44 Dose: 500 mg Epoetin Mir (Epogen -) 10,000 unit IVPUSH ONCE ONE Stop: 11/27/17 10:31 Heparin Sodium (Porcine) (Heparin -) 5,000 unit SQ TID [facility] Last Admin: 11/27/17 14:18 Dose: Not Given Sodium Chloride (Normal Saline -) 250 mls @ 3,000 mls/hr IV PRN PRN PRN Reason: Hypotension during Dialysis Stop: 11/28/17 10:30 Labetalol HCl (Normodyne -) 600 mg PO TID [facility] Last Admin: 11/27/17 14:23 Dose: 600 mg Lacosamide (Vimpat -) 150 mg PO BID [facility] Last Admin: 11/27/17 09:43 Dose: 150 mg Lisinopril (Prinivil) 10 mg PO DAILY [facility] Last Admin: 11/27/17 09:43 Dose: 10 mg Lorazepam (Ativan -) 1 mg PO Q12H PRN PRN Reason: ANXIETY Last Admin: 11/27/17 11:12 Dose: 1 mg Multivit/Ca Carb/B Cmplx/FA/Prenat (Nephro-Claudia -) 1 tablet PO DAILY [facility] Last Admin: 11/27/17 09:43 Dose: 1 tablet Mupirocin (Bactroban Ointment (For Decolonization) -) 1 applic NS BID [facility] Stop: 12/01/17 09:59 Last Admin: 11/27/17 09:44 Dose: 1 applic Nifedipine (Procardia Xl -) 90 mg PO BID [facility] Last Admin: 11/27/17 09:43 Dose: 90 mg Sevelamer Carbonate (Renvela -) 1,600 mg PO TIDCM [facility] Last Admin: 11/27/17 18:17 Dose: Not Given ASSESSMENT/PLAN: Pt is a 22 y/o M with Autism, refractory HTN, seizure disorder who presented to the ED for self induced traumatic injury cath on his back. Pt had seizure in ambulance and in ED. Pt had cardiac arrest in ED. Pt admitted to ICU. This afternoon Pt was found to have an infection in the permacath site on his back after a failed trial to dialyze the patient through the new AV Fistula( infiltrated). Pt. was taken to the OR where the permacath was succesfully replaced. #s/p Cardiac arrest vs. Post-ictal state -ROSC achieved in ED -alert -Midazolam drip -fem line placed #seizure disorder -seizure x2 on day of admission -Vimpat d/sunshine -restarted depakote 500mg BID as per Neuro consult #HTN -restarting labetalol 600mg TID as BP began to rise -restarted Lisinopril and Nifedipine #CKD -Recently started on HD within the last 2 months -last HD Sunday (11/24) #Anemia -Hgb dropped from 10.7 to 8.7 -monitor CBC q8h -transfuse if Hgb falls below 7 - f/u iron panel ( FE, TIBC and Ferritin)- Ferritin: 169, TIBC and Fe pending - started EPO by Nephro consult #Hypoxia -Post op O2, titrating down as needed to maintain pulse-ox above 94% #FEN -Not on fluids -K 5.2. For HD Tues -NPO #PPx -Hep Sub Q #Dispo -admit to ICU Visit type - Emergency Visit Emergency Visit: No - New Patient This patient is new to me today: No - Critical Care Critical Care patient: No - Discharge Referral Referred to [facility] No
--- NOTE | 2017-11-27 19:47 | OP ---
DATE OF OPERATION: 11/27/2017 PREOPERATIVE DIAGNOSIS: Fractured PermCath. POSTOPERATIVE DIAGNOSIS: Fractured PermCath. SURGERY PERFORMED: Exchange of PermCath. SURGEON: Radha Kc MD ANESTHESIA: General. INDICATIONS: This is patient is a 22-year-old gentleman who is mentally retarded, who is currently on hemodialysis. The patient has had multiple PermCaths and despite tunnel to his back, he manages to either pull the catheter out or break it. This catheter broke. The decision was made, after attempting to use his AV fistula today, to change the PermCath. The patient was uncooperative during dialysis and was unable to be dialyzed via an AV fistula. DESCRIPTION OF PROCEDURE: The patient was taken to the OR, placed under general anesthesia and intubated. He was positioned with the left side down and the area of the old catheter was prepped and draped in the usual sterile manner. An incision was made over the insertion site just at the sternocleidomastoid muscle where the catheter was identified in the subcutaneous tissue and retracted for a few centimeters. The inner portion of the catheter was clamped with a Silva clamp. The catheter was divided here. The catheter was then removed from the exit site easily. The cuff was not well incorporated. The decision was made to make a new tunnel. Using a tunneling device and 2 counter incisions, the catheter was tunneled from the mid back in the subcutaneous tissue all of the way to the incision where the old catheter remained. The guidewire was passed through the remaining portion of the old catheter and that portion of the catheter was removed. The peel-away sheath and dilator were placed over the guidewire. The guidewire and dilator were removed. The catheter was placed through the peel-away sheath, which was then removed. There was good blood flow in and out of the catheter and the position was confirmed as best as could be with fluoroscopy. The catheter had good blood flow and it was anchored with multiple 0 silk sutures in multiple locations. The incisions on the back and neck were closed with 4-0 Monocryl sutures. Sterile dressings were applied. Estimated blood loss was 25 mL, no transfusions were given. Patient was awoken, extubated, and taken back to the Intensive Care Unit in unchanged condition. RADHA KC M.D. [id number]
[2017-11-27] MEDS: CHLORHEXIDINE GLUCONATE 4% CLEANSER FOR DECOLONIZATION TP SCH (22:00)
[2017-11-28 06:08] LABS: BASO % 0.5 % (0-2.0); EOS % 6.9 % (0-4.5); HEMOGLOBIN 7.2 GM/dL (11.7-16.9); LYMPH % 21.8 % (8-40); MCH 29.1 pg (25.7-33.7); MCHC 32.7 g/dl (32.0-35.9); MEAN CELL VOLUME 88.9 fl (80-96); MEAN PLT VOLUME 8.4 fl (7.5-11.1); MONO % 7.2 % (3.8-10.2); NEUT % 63.6 % (42.8-82.8); PLATELET COUNT 198 K/MM3 (134-434); RBC 2.47 M/mm3 (4.00-5.60); WHITE BLOOD COUNT 7.9 K/mm3 (4.0-10.0)
[2017-11-28] MEDS: HEPARIN NA (PORCINE) 5,000 UNITS/ML 1ML VIAL SQ SCH ×3 (06:20→22:57)
[2017-11-28] MEDS: LABETALOL HCL 200 MG TABLET (FP) PO SCH ×3 (06:20→22:57)
[2017-11-28 06:44] LABS: ANION GAP 15 (8-16); CALCIUM 8.7 mg/dL (8.5-10.1); CHLORIDE 103 mmol/L (98-107); CO2 26 mmol/L (21-32); POTASSIUM 5.3 mmol/L (3.5-5.1); SODIUM 144 mmol/L (136-145)
[2017-11-28 06:50] LABS: ALK PHOS 85 U/L (45-117); BILIRUBIN,TOTAL 0.5 mg/dL (0.2-1.0); BLOOD UREA NITROGEN 51 mg/dL (7-18); GLUCOSE,RANDOM 85 mg/dL (74-106); MAGNESIUM 2.4 mg/dL (1.8-2.4); PHOSPHOROUS 4.1 mg/dL (2.5-4.9); SGOT/AST 13 U/L (15-37); SGPT/ALT 15 U/L (12-78); TOT PROT 6.1 g/dl (6.4-8.2)
[2017-11-28 06:54] LABS: CREATININE 13.1 mg/dL (0.7-1.3)
[2017-11-28] MEDS ORDERED: PT OWN MED DRAWER 7, Y5N ONE ×2 (08:17→09:39)
[2017-11-28] MEDS: SEVELAMER CARBONATE 800 MG TAB (FP) PO SCH ×3 (08:24→18:30)
--- NOTE | 2017-11-28 08:29 | PN ---
Physical Exam: SUBJECTIVE: Pt went to OR last night for exchange of catheter. Pt to have dialysis today. HPI limited due to autism. OBJECTIVE: Vital Signs Period Temp Pulse Resp BP Sys/Mora Pulse Ox Last 24 Hr 97.7 F-98.5 F 75-87 15-24 114-158/57-87 100 GENERAL: NAD, awake, alert, watching cartoons on tablet HEENT: NC/AT, TETE, MMM, sclera anicteric LUNGS: Poor inspiratory effort, CTA bilaterally otherwise, no accessory muscle use HEART: RRR, S1, S2 without murmur ABDOMEN: Soft, NT/ND, normoactive BS, no true guarding BACK: New permacath in place, no erythema noted currently and site improved since exchange EXTREMITIES: 2+ DP pulses, warm, well-perfused, no edema, fistula on L upper arm noted w/o erythema SKIN: Warm, dry, no rashes noted Laboratory Results - last 24 hr 11/25/17 11/27/17 11/28/17 21:05 05:30 05:30 WBC 9.4 7.9 RBC 2.68 L 2.47 L Hgb 7.7 L 7.2 L Hct 23.7 L 22.0 L MCV 88.4 88.9 MCH 28.8 29.1 MCHC 32.6 32.7 RDW 15.8 16.0 H Plt Count 207 198 MPV 8.5 8.4 Absolute Neuts (auto) 5.7 5.0 Neutrophils % 61.0 D 63.6 Lymphocytes % 24.0 D 21.8 Monocytes % 7.6 7.2 Eosinophils % 6.9 H D 6.9 H Basophils % 0.5 0.5 Nucleated RBC % 0 0 Sodium Potassium Chloride Carbon Dioxide Anion Gap BUN Creatinine Creat Clearance w eGFR Random Glucose Calcium Phosphorus Magnesium Total Bilirubin AST ALT Alkaline Phosphatase Total Protein Albumin Blood Type O POSITIVE Antibody Screen Negative Crossmatch See Detail 11/28/17 05:30 WBC RBC Hgb Hct MCV MCH MCHC RDW Plt Count MPV Absolute Neuts (auto) Neutrophils % Lymphocytes % Monocytes % Eosinophils % Basophils % Nucleated RBC % Sodium 144 Potassium 5.3 H Chloride 103 Carbon Dioxide 26 Anion Gap 15 BUN 51 H Creatinine 13.1 H* Creat Clearance w eGFR 4.76 Random Glucose 85 Calcium 8.7 Phosphorus 4.1 Magnesium 2.4 Total Bilirubin 0.5 AST 13 L ALT 15 Alkaline Phosphatase 85 Total Protein 6.1 L Albumin 3.0 L Blood Type Antibody Screen Crossmatch Active Medications Generic Name Dose Route Start Last Admin Trade Name Franko PRN Reason Stop Dose Admin Chlorhexidine Gluconate 1 applic 11/26/17 22:00 11/27/17 22:00 Hibiclens For Decolonization - TP [address] Administration Divalproex Sodium 500 mg 11/26/17 22:00 11/27/17 22:00 Depakote - PO [address] Administration Epoetin Mir 10,000 unit 11/27/17 10:30 Epogen - IVPUSH 11/27/17 10:31 ONCE ONE Heparin Sodium (Porcine) 5,000 unit 11/25/17 23:30 11/28/17 06:20 Heparin - SQ 5,[address] Administration Sodium Chloride 250 mls @ 3,000 mls/hr 11/27/17 10:30 Normal Saline - IV 11/28/17 10:30 PRN PRN Hypotension during Dialysis Labetalol HCl 600 mg 11/26/17 14:00 11/28/17 06:20 Normodyne - PO [address] Administration Lacosamide 150 mg 11/26/17 10:00 11/27/17 21:50 Vimpat - PO [address] Administration Lisinopril 10 mg 11/27/17 10:00 11/27/17 09:43 Prinivil PO [address] Administration Lorazepam 1 mg 11/26/17 17:13 11/27/17 11:12 Ativan - PO 1 mg Q12H PRN Administration ANXIETY Multivit/Ca Carb/B Cmplx/FA/Prenat 1 tablet 11/26/17 10:00 11/27/17 09:43 Nephro-Claudia - PO [address] Administration Mupirocin 1 applic 11/26/17 10:00 11/27/17 21:48 Bactroban Ointment (For Decolonization) - NS 12/01/17 09:[address] Administration Nifedipine 90 mg 11/27/17 10:00 11/27/17 21:50 Procardia Xl - PO [address] Administration Sevelamer Carbonate 1,600 mg 11/26/17 08:00 11/28/17 08:24 Renvela - PO 1,[address] Administration ASSESSMENT/PLAN: 1) HD access --POD1 for permacath exchange in Or with Dr. Kc --Access established --Site looks like it is improving compared to previous day 2) ESRD --Pt to have dialysis today which is scheduled --[id number] while being dialyzed today --Nephrology on board --Rpt BMP after dialysis due to electrolyte derangements 3) Seizure history --Continue Depakote 500mg PO BID --Continue Lacosamide 150mg PO BID 4) HTN --Pt's BP this morning 134/81 --Continue Lisinopril 10mg qDaily --Continue Nifedepine 90mg BID --Continue Labetalol 600mg TID FEN: Fluids: none indicated Electrolyte abnormalities: Hyperkalemia mildly at 5.4; dialysis today Nutrition: Advance back to Renal diet PPX: DVT - Heparin SQ TID Dispo: Dialysis today; transfer to / Case discussed with Dr. Dwaine Mauro, DO - IM PGY-2 Visit type - Emergency Visit Emergency Visit: No - New Patient This patient is new to me today: No - Critical Care Critical Care patient: No
--- NOTE | 2017-11-28 09:32 | PN ---
Progress Note, Physician Chief Complaint: Pt. had one episode of vomiting this morning that is now resolved and he is drinking juice currently with mother at bedside. No GA complications. - Current Medication List Current Medications: Active Medications Chlorhexidine Gluconate (Hibiclens For Decolonization -) 1 applic TP HS [facility] Last Admin: 11/27/17 22:00 Dose: 1 applic Divalproex Sodium (Depakote -) 500 mg PO BID [facility] Last Admin: 11/27/17 22:00 Dose: 500 mg Epoetin Mir (Epogen -) 10,000 unit IVPUSH ONCE ONE Stop: 11/27/17 10:31 Heparin Sodium (Porcine) (Heparin -) 5,000 unit SQ TID [facility] Last Admin: 11/28/17 06:20 Dose: 5,000 unit Sodium Chloride (Normal Saline -) 250 mls @ 3,000 mls/hr IV PRN PRN PRN Reason: Hypotension during Dialysis Stop: 11/28/17 10:30 Labetalol HCl (Normodyne -) 600 mg PO TID [facility] Last Admin: 11/28/17 06:20 Dose: 600 mg Lacosamide (Vimpat -) 150 mg PO BID [facility] Last Admin: 11/27/17 21:50 Dose: 150 mg Lisinopril (Prinivil) 10 mg PO DAILY [facility] Last Admin: 11/27/17 09:43 Dose: 10 mg Lorazepam (Ativan -) 1 mg PO Q12H PRN PRN Reason: ANXIETY Last Admin: 11/27/17 11:12 Dose: 1 mg Multivit/Ca Carb/B Cmplx/FA/Prenat (Nephro-Claudia -) 1 tablet PO DAILY [facility] Last Admin: 11/27/17 09:43 Dose: 1 tablet Mupirocin (Bactroban Ointment (For Decolonization) -) 1 applic NS BID [facility] Stop: 12/01/17 09:59 Last Admin: 11/27/17 21:48 Dose: 1 applic Nifedipine (Procardia Xl -) 90 mg PO BID [facility] Last Admin: 11/27/17 21:50 Dose: 90 mg Sevelamer Carbonate (Renvela -) 1,600 mg PO TIDCM [facility] Last Admin: 11/28/17 08:24 Dose: 1,600 mg - Objective Vital Signs: Vital Signs Temperature 98 F 11/28/17 06:00 Pulse Rate 79 11/28/17 08:00 Respiratory Rate 19 11/28/17 09:00 Blood Pressure 134/81 11/28/17 08:00 O2 Sat by Pulse Oximetry (%) 99 11/28/17 09:00 Constitutional: Yes: Well Nourished, No Distress, Calm Musculoskeletal: Yes: WNL Neurological: Yes: WNL, Alert, Oriented Labs: CBC, BMP 11/28/17 05:30 11/28/17 05:30 INR, PTT INR 0.97 (0.82-1.09) 11/26/17 04:30 Assessment/Plan POD#1 s/p Permacath under GA. Doing well. D/C from anesthesia care
[2017-11-28] MEDS: MUPIROCIN 2% TOPICAL OINTMENT FOR DECOLONIZATION NS SCH (09:57)
[2017-11-28] MEDS: DIVALPROEX SODIUM 500 MG TABLET E.C. PO SCH ×2 (09:57→23:24)
[2017-11-28] MEDS: LACOSAMIDE 50 MG TABLET PO SCH ×2 (09:58→22:57)
[2017-11-28] MEDS: LISINOPRIL 10 MG TABLET (FP) PO SCH (09:59)
[2017-11-28] MEDS: VITAMIN B COMP W-C 1 EA TABLET PO SCH (09:59)
[2017-11-28] MEDS: NIFEdipine E.R. 90 MG TABLET (FP) PO SCH ×2 (09:59→23:08)
--- NOTE | 2017-11-28 10:16 | PN ---
Physical Exam: SUBJECTIVE: Patient seen and examined, pleasant, playing with his ipad, mother at bedside, no concerns. OBJECTIVE: Vital Signs Period Temp Pulse Resp BP Sys/Mora Pulse Ox Last 24 Hr 97.7 F-98.5 F 75-87 15-24 112-158/57-87 99-100 GENERAL: sitting in bed pleasant Abdomen:soft, NT Chest: dressing in back, no active bleed Extremities: no edema Laboratory Results - last 24 hr 11/25/17 11/28/17 11/28/17 21:05 05:30 05:30 WBC 7.9 RBC 2.47 L Hgb 7.2 L Hct 22.0 L MCV 88.9 MCH 29.1 MCHC 32.7 RDW 16.0 H Plt Count 198 MPV 8.4 Absolute Neuts (auto) 5.0 Neutrophils % 63.6 Lymphocytes % 21.8 Monocytes % 7.2 Eosinophils % 6.9 H Basophils % 0.5 Nucleated RBC % 0 Sodium 144 Potassium 5.3 H Chloride 103 Carbon Dioxide 26 Anion Gap 15 BUN 51 H Creatinine 13.1 H* Creat Clearance w eGFR 4.76 Random Glucose 85 Calcium 8.7 Phosphorus 4.1 Magnesium 2.4 Total Bilirubin 0.5 AST 13 L ALT 15 Alkaline Phosphatase 85 Total Protein 6.1 L Albumin 3.0 L Blood Type O POSITIVE Antibody Screen Negative Crossmatch See Detail Active Medications Generic Name Dose Route Start Last Admin Trade Name Freq PRN Reason Stop Dose Admin Chlorhexidine Gluconate 1 applic 11/26/17 22:00 11/27/17 22:00 Hibiclens For Decolonization - TP [address] Administration Divalproex Sodium 500 mg 11/26/17 22:00 11/28/17 09:57 Depakote - PO [address] Administration Epoetin Mir 10,000 unit 11/27/17 10:30 Epogen - IVPUSH 11/27/17 10:31 ONCE ONE Heparin Sodium (Porcine) 5,000 unit 11/25/17 23:30 11/28/17 06:20 Heparin - SQ 5,[address] Administration Sodium Chloride 250 mls @ 3,000 mls/hr 11/27/17 10:30 Normal Saline - IV 11/28/17 10:30 PRN PRN Hypotension during Dialysis Labetalol HCl 600 mg 11/26/17 14:00 11/28/17 06:20 Normodyne - PO [address] Administration Lacosamide 150 mg 11/26/17 10:00 11/28/17 09:58 Vimpat - PO [address] Administration Lisinopril 10 mg 11/27/17 10:00 11/28/17 09:59 Prinivil PO [address] Administration Lorazepam 1 mg 11/26/17 17:13 11/27/17 11:12 Ativan - PO 1 mg Q12H PRN Administration ANXIETY Multivit/Ca Carb/B Cmplx/FA/Prenat 1 tablet 11/26/17 10:00 11/28/17 09:59 Nephro-Claudia - PO [address] Administration Mupirocin 1 applic 11/26/17 10:00 11/28/17 09:57 Bactroban Ointment (For Decolonization) - NS 12/01/17 09:[address] Administration Nifedipine 90 mg 11/27/17 10:00 11/28/17 09:59 Procardia Xl - PO [address] Administration Sevelamer Carbonate 1,600 mg 11/26/17 08:00 11/28/17 08:24 Renvela - PO 1,[address] Administration Laboratory Results - last 24 hr 11/25/17 11/28/17 11/28/17 21:05 05:30 05:30 WBC 7.9 RBC 2.47 L Hgb 7.2 L Hct 22.0 L MCV 88.9 MCH 29.1 MCHC 32.7 RDW 16.0 H Plt Count 198 MPV 8.4 Absolute Neuts (auto) 5.0 Neutrophils % 63.6 Lymphocytes % 21.8 Monocytes % 7.2 Eosinophils % 6.9 H Basophils % 0.5 Nucleated RBC % 0 Sodium 144 Potassium 5.3 H Chloride 103 Carbon Dioxide 26 Anion Gap 15 BUN 51 H Creatinine 13.1 H* Creat Clearance w eGFR 4.76 Random Glucose 85 Calcium 8.7 Phosphorus 4.1 Magnesium 2.4 Total Bilirubin 0.5 AST 13 L ALT 15 Alkaline Phosphatase 85 Total Protein 6.1 L Albumin 3.0 L Blood Type O POSITIVE Antibody Screen Negative Crossmatch See Detail ASSESSMENT/PLAN: 22yo M with PMH autism, ESRD on HD via permacath, seizure and HTN presented to the ER after pt pulled HD catheter out from his back which he has done several times in the past (reason catheter was tunneled to the back) and was found to have significant bleeding and had seizure en route to the ER and again in the ER which led patient to become unresponsive and Code 99 was called. ROSC achieved in 2 minutes and was intubated in the ER. -Acute hypoxic respiratory failure, suspected from seizure/post ictal phase -Seizure, suspecetd from large volume blood loss -Acute blood loss anemia on anemia of chronic disease -ESRD on HD -Hyperkalemia -Elevated troponin, trended down, suspect from CPR vs Demand from above vs ESRD -HTN Plan; S/p permacath change 11/27. Discussed with Dr. Luz, plan for HD today, 1 unit pRBC with HD. Monitor K levels. Lisinopril per HD plans. Self-extubated, doing well. Neurology input noted. VImpat/Depakote, will need outpatient platelets monitoring (discussed with mother at bedside) Neuro checks/seizure precautions. Continue lizinopril/nefedipine, labetalol. BP well controlled. Resume hydralazine based on BP readings. DVTPPX heparin subq Dispo pending HD plans. Plan discussed with mother at bedside in detail, all questions answered. Verbalized understanding and in agreement with the plan. Total critical care time spent 45 min. Visit type - Emergency Visit Emergency Visit: Yes ED Registration Date: 11/25/17 Care time: The patient presented to the Emergency Department on the above date and was hospitalized for further evaluation of their emergent condition. - New Patient This patient is new to me today: No - Critical Care Critical Care patient: Yes Total Critical Care Time (in minutes): 45 Critical Care Statement: The care of this patient involved high complexity decision making to prevent further life threatening deterioration of the patient 's condition and/or to evaluate & treat vital organ system(s) failure or risk of failure. - Discharge Referral Referred to [facility] No
--- NOTE | 2017-11-28 10:20 | PN ---
Progress Note (short form) - Note Progress Note: RENAL Pt is awake and alert comfortable mother by bedside Last Vital Signs Temp Pulse Resp BP Pulse Ox 98 F 78 19 112/67 99 11/28/17 06:00 11/28/17 10:10 11/28/17 10:10 11/28/17 10:10 11/28/17 09:00 lungs clear cvs s1s2 rr abd soft ext no edema has a permcath on his back CBC, BMP 11/28/17 05:30 11/28/17 05:30 Current Medications Generic Name Dose Route Start Last Admin Trade Name Freq PRN Reason Stop Dose Admin Chlorhexidine Gluconate 1 applic 11/26/17 22:00 11/27/17 22:00 Hibiclens For Decolonization - TP [address] Administration Divalproex Sodium 500 mg 11/26/17 22:00 11/28/17 09:57 Depakote - PO [address] Administration Epoetin Mir 10,000 unit 11/27/17 10:30 Epogen - IVPUSH 11/27/17 10:31 ONCE ONE Heparin Sodium (Porcine) 5,000 unit 11/25/17 23:30 11/28/17 06:20 Heparin - SQ 5,[address] Administration Sodium Chloride 250 mls @ 3,000 mls/hr 11/27/17 10:30 Normal Saline - IV 11/28/17 10:30 PRN PRN Hypotension during Dialysis Labetalol HCl 600 mg 11/26/17 14:00 11/28/17 06:20 Normodyne - PO [address] Administration Lacosamide 150 mg 11/26/17 10:00 11/28/17 09:58 Vimpat - PO [address] Administration Lisinopril 10 mg 11/27/17 10:00 11/28/17 09:59 Prinivil PO [address] Administration Lorazepam 1 mg 11/26/17 17:13 11/27/17 11:12 Ativan - PO 1 mg Q12H PRN Administration ANXIETY Multivit/Ca Carb/B Cmplx/FA/Prenat 1 tablet 11/26/17 10:00 11/28/17 09:59 Nephro-Claudia - PO [address] Administration Mupirocin 1 applic 11/26/17 10:00 11/28/17 09:57 Bactroban Ointment (For Decolonization) - NS 12/01/17 09:[address] Administration Nifedipine 90 mg 11/27/17 10:00 11/28/17 09:59 Procardia Xl - PO [address] Administration Sevelamer Carbonate 1,600 mg 11/26/17 08:00 11/28/17 08:24 Renvela - PO 1,[address] Administration Impression 1. ESRD 2. autism 3. HTN 4. anemia 5. epilepsy 6. hx of pleural effusions 7. hyperkalemia Plan will be dialyzed today avf was tried yesterday but patient moved his arm and could not be dialyzed would change nifedipine to 60 bid which is the max dose MV
[2017-11-28 10:28] LABS: SERUM IRON SATURATION 15 % (15-55); TOTAL IRON BINDING CAPACITY 195 ug/dL (250-450); UIBC 165 ug/dL (111-343)
--- NOTE | 2017-11-28 10:44 | PN ---
Teaching Attending Note Name of Resident: Yanick Mauro ATTENDING PHYSICIAN STATEMENT I saw and evaluated the patient. I reviewed the resident's note and discussed the case with the resident. I agree with the resident's findings and plan as documented. SUBJECTIVE: Patient seen and examined in the ICU. Awake and alert. Permacath changed yesterday. NAD on NC O2. For HD today. Intake & Output 11/25/17 11/26/17 11/27/17 11/28/17 23:59 23:59 23:59 23:59 Intake Total 120 525 Output Total 0 445 100 Balance 120 80 -100 Weight 180 lb 151 lb 151 lb 152 lb 8.958 oz Last Vital Signs Temp Pulse Resp BP Pulse Ox 98.4 F 78 19 112/67 99 11/28/17 10:27 11/28/17 10:10 11/28/17 10:10 11/28/17 10:10 11/28/17 09:00 Active Medications Chlorhexidine Gluconate (Hibiclens For Decolonization -) 1 applic TP HS [facility] [place] Last Admin: 11/27/17 22:00 Dose: 1 applic Divalproex Sodium (Depakote -) 500 mg PO BID [facility] [place] Last Admin: 11/28/17 09:57 Dose: 500 mg Epoetin Mir (Epogen -) 10,000 unit IVPUSH ONCE ONE Stop: 11/27/17 10:31 Heparin Sodium (Porcine) (Heparin -) 5,000 unit SQ TID [facility] [place] Last Admin: 11/28/17 06:20 Dose: 5,000 unit Sodium Chloride (Normal Saline -) 250 mls @ 3,000 mls/hr IV PRN PRN PRN Reason: Hypotension during Dialysis Stop: 11/28/17 10:30 Labetalol HCl (Normodyne -) 600 mg PO TID [facility] [place] Last Admin: 11/28/17 06:20 Dose: 600 mg Lacosamide (Vimpat -) 150 mg PO BID [facility] [place] Last Admin: 11/28/17 09:58 Dose: 150 mg Lisinopril (Prinivil) 10 mg PO DAILY [facility] [place] Last Admin: 11/28/17 09:59 Dose: 10 mg Lorazepam (Ativan -) 1 mg PO Q12H PRN PRN Reason: ANXIETY Last Admin: 11/27/17 11:12 Dose: 1 mg Multivit/Ca Carb/B Cmplx/FA/Prenat (Nephro-Claudia -) 1 tablet PO DAILY [facility] [place] Last Admin: 11/28/17 09:59 Dose: 1 tablet Mupirocin (Bactroban Ointment (For Decolonization) -) 1 applic NS BID [facility] [place] Stop: 12/01/17 09:59 Last Admin: 11/28/17 09:57 Dose: 1 applic Nifedipine (Procardia Xl -) 90 mg PO BID [facility] [place] Last Admin: 11/28/17 09:59 Dose: 90 mg Sevelamer Carbonate (Renvela -) 1,600 mg PO TIDCM [facility] [place] Last Admin: 11/28/17 08:24 Dose: 1,600 mg Gen: Awake, alert, NAD HEENT: EOMI, pupils reactive to light Neck: (-) JVD Cardio: S1S2 Pulm: few basilar rhonchi Abd: soft, no organomegally. Back: New HD catheter Ext: 2+ pulses. LUE AV fistula at AC with thrill Neuro: awake, moves all extremities Laboratory Results - last 24 hr 11/27/17 11/28/17 11/28/17 05:30 05:30 05:30 WBC 7.9 RBC 2.47 L Hgb 7.2 L Hct 22.0 L MCV 88.9 MCH 29.1 MCHC 32.7 RDW 16.0 H Plt Count 198 MPV 8.4 Absolute Neuts (auto) 5.0 Neutrophils % 63.6 Lymphocytes % 21.8 Monocytes % 7.2 Eosinophils % 6.9 H Basophils % 0.5 Nucleated RBC % 0 Sodium 144 Potassium 5.3 H Chloride 103 Carbon Dioxide 26 Anion Gap 15 BUN 51 H Creatinine 13.1 H* Creat Clearance w eGFR 4.76 Random Glucose 85 Calcium 8.7 Phosphorus 4.1 Magnesium 2.4 Iron 30 L TIBC 195 L Iron Saturation 15 Total Bilirubin 0.5 AST 13 L ALT 15 Alkaline Phosphatase 85 Total Protein 6.1 L Albumin 3.0 L ASSESSMENT/PLAN: Acute CP arrest with ROSC after 2 minutes Malfunctioning HD catheter due to patient manipulation Autism HTN ERSD on HD Seizure disorder. HD per Renal Supplemental O2 as needed Aspiration precautions Vascular surgery for HD access removal AEDs per Neuro VTE prophylaxis D/C planning Dr Isidro
--- NOTE | 2017-11-28 11:19 | PN ---
Progress Note (short form) - Note Progress Note: Neurology HISTORY OF PRESENT ILLNESS: 22 y/o M with PMH Autism, HTN, CDK on HD TTS started 1-2 months ago, seizure disorder. He had cath placed on anterior chest in the past and had L av fistula placed (scheduled for use starting next week). He reportedly pulled cath out, so a new line was placed on the patients back. On evening of admission, he reached back and broke the catheter and tore some skin around the port site. Ambulance was called. Pt's mother placed a clip on the leaking port and achieved hemostasis. Per report, en route to the ED, pt seized in the ambulance. Again in the ED pt seized and contracted neck leading to a bradypnic episode. Pulses were lost and pt was coded for 2 min after which ROSC was achieved. Pt intubated, sedated on Midazolam, and fem line was placed. He was sedated and intubated and sent to ICU where he currently is. Now extubated and on facemask. Per mother, he had been on depakote 1250mg in the past and was decreased due to concern for platelet count. Prior to his event, last seizure was in August. He has been on Vimpat 150mg twice daily. No longer on sedation and mental status improving. No new seizures overnight. Started Depakote 500mg twice daily. No new seizure activity. Remains stable in ICU. For HD per renal. Active Medications Chlorhexidine Gluconate (Hibiclens For Decolonization -) 1 applic TP HS [facility] Last Admin: 11/27/17 22:00 Dose: 1 applic Divalproex Sodium (Depakote -) 500 mg PO BID [facility] Last Admin: 11/28/17 09:57 Dose: 500 mg Epoetin Mir (Epogen -) 10,000 unit IVPUSH ONCE ONE Stop: 11/27/17 10:31 Heparin Sodium (Porcine) (Heparin -) 5,000 unit SQ TID [facility] Last Admin: 11/28/17 06:20 Dose: 5,000 unit Sodium Chloride (Normal Saline -) 250 mls @ 3,000 mls/hr IV PRN PRN PRN Reason: Hypotension during Dialysis Stop: 11/28/17 10:30 Labetalol HCl (Normodyne -) 600 mg PO TID [facility] Last Admin: 07/04/18 06:20 Dose: 600 mg Lacosamide (Vimpat -) 150 mg PO BID [facility] Last Admin: 11/28/17 09:58 Dose: 150 mg Lisinopril (Prinivil) 10 mg PO DAILY [facility] Last Admin: 11/28/17 09:59 Dose: 10 mg Lorazepam (Ativan -) 1 mg PO Q12H PRN PRN Reason: ANXIETY Last Admin: 11/27/17 11:12 Dose: 1 mg Multivit/Ca Carb/B Cmplx/FA/Prenat (Nephro-Claudia -) 1 tablet PO DAILY [facility] Last Admin: 11/28/17 09:59 Dose: 1 tablet Mupirocin (Bactroban Ointment (For Decolonization) -) 1 applic NS BID [facility] Stop: 12/01/17 09:59 Last Admin: 11/28/17 09:57 Dose: 1 applic Nifedipine (Procardia Xl -) 90 mg PO BID [facility] Last Admin: 11/28/17 09:59 Dose: 90 mg Sevelamer Carbonate (Renvela -) 1,600 mg PO TIDCM [facility] Last Admin: 11/28/17 08:24 Dose: 1,600 mg PHYSICAL EXAMINATION Vital Signs Period Temp Pulse Resp BP Sys/Mora Pulse Ox Last 24 Hr 97.7 F-98.5 F 75-87 15-24 112-158/57-87 99-100 Gen: AWake, alert, not following commands HEENT: EOMI, pupils reactive to light Neck: no jvd Cardio: decreased lung sounds rrr, normal s1s2, no mrg appreciated Pulm: good air entry b/l, coarse breath sounds Abd: soft, no organomegally. Right femoral line Back: line at R medial to scapula. Skin torn. Line clipped. no bleeding. Ext: 2+ pulses. LUE AV fistula at AC with thrill and weak pulse distally. Neuro: awake, tracking examiner, not following complex commands, moves all ext grossly, sensory intact to LT CBCD WBC 7.9 K/mm3 (4.0-10.0) 11/28/17 05:30 RBC 2.47 M/mm3 (4.00-5.60) L 11/28/17 05:30 Hgb 7.2 GM/dL (11.7-16.9) L 11/28/17 05:30 Hct 22.0 % (35.4-49) L 11/28/17 05:30 MCV 88.9 fl (80-96) 11/28/17 05:30 MCHC 32.7 g/dl (32.0-35.9) 11/28/17 05:30 RDW 16.0 % (11.9-15.9) H 11/28/17 05:30 Plt Count 198 K/MM3 (134-434) 11/28/17 05:30 MPV 8.4 fl (7.5-11.1) 11/28/17 05:30 CMP Sodium 144 mmol/L (136-145) 11/28/17 05:30 Potassium 5.3 mmol/L (3.5-5.1) H 11/28/17 05:30 Chloride 103 mmol/L (98-107) 11/28/17 05:30 Carbon Dioxide 26 mmol/L (21-32) 11/28/17 05:30 Anion Gap 15 (8-16) 11/28/17 05:30 BUN 51 mg/dL (7-18) H 11/28/17 05:30 Creatinine 13.1 mg/dL (0.7-1.3) H* 11/28/17 05:30 Creat Clearance w eGFR 4.76 (>60) 11/28/17 05:30 Random Glucose 85 mg/dL (74-106) 11/28/17 05:30 Calcium 8.7 mg/dL (8.5-10.1) 11/28/17 05:30 Total Bilirubin 0.5 mg/dL (0.2-1.0) 11/28/17 05:30 AST 13 U/L (15-37) L 11/28/17 05:30 ALT 15 U/L (12-78) 11/28/17 05:30 Alkaline Phosphatase 85 U/L (45-117) 11/28/17 05:30 Total Protein 6.1 g/dl (6.4-8.2) L 11/28/17 05:30 Albumin 3.0 g/dl (3.4-5.0) L 11/28/17 05:30 CARDIAC ENZYMES Creatine Kinase 82 IU/L (39-308) 11/26/17 18:00 Troponin I 0.32 ng/ml (0.00-0.05) H D 11/26/17 18:00 ASSESSMENT/PLAN: 22 y/o M with PMH Autism, HTN, CDK on HD TTS started 1-2 months ago, seizure disorder. He had cath placed on anterior chest in the past and had L av fistula placed (scheduled for use starting next week). He reportedly pulled cath out, so a new line was placed on the patients back. On evening of admission, he reached back and broke the catheter and tore some skin around the port site. Ambulance was called. Pt's mother placed a clip on the leaking port and achieved hemostasis. Per report, en route to the ED, pt seized in the ambulance. Again in the ED pt seized and contracted neck leading to a bradypnic episode. Pulses were lost and pt was coded for 2 min after which ROSC was achieved. Pt intubated, sedated on Midazolam, and fem line was placed. He was sedated and intubated and sent to ICU where he currently is. Now extubated and on facemask. Per mother, he had been on depakote 1250mg in the past and was decreased due to concern for platelet count. He has been on Vimpat 150mg twice daily. No longer on sedation and mental status improving. Started depakote 500mg twice daily for added protection Has been seizure free in ICU monitor platelet counts Continue HD, slow flow HD if possible, per renal Avoid large volume shifts Maintian hydration Monitor BP, maintain normotensive range monitor lytes DVTppx Critical care 35 mins
[2017-11-28] MEDS ORDERED: SODIUM CHLORIDE 250 ML IV PRN (13:00)
[2017-11-28] MEDS ORDERED: EPOETIN ALFA 10,000 UNIT/1 ML VIAL IVPUSH ONE (14:00)
[2017-11-28] MEDS ORDERED: LORazepam 1 MG TABLET PO PRN ×2 (21:09→21:31)
[2017-11-28 21:51] VITALS: PULSE 82
[2017-11-28] MEDS ORDERED: NIFEdipine E.R. 90 MG TABLET (FP) PO SCH (22:00)
[2017-11-28] MEDS ORDERED: LABETALOL HCL 200 MG TABLET (FP) PO SCH (22:00)
[2017-11-28] MEDS ORDERED: HEPARIN NA (PORCINE) 5,000 UNITS/ML 1ML VIAL SQ SCH (22:00)
[2017-11-28] MEDS ORDERED: LACOSAMIDE 50 MG TABLET PO SCH (22:00)
[2017-11-28] MEDS ORDERED: DIVALPROEX SODIUM 500 MG TABLET E.C. PO SCH (22:00)
[2017-11-29] MEDS: LABETALOL HCL 200 MG TABLET (FP) PO SCH ×2 (06:10→13:29)
[2017-11-29] MEDS: HEPARIN NA (PORCINE) 5,000 UNITS/ML 1ML VIAL SQ SCH ×2 (06:10→13:32)
[2017-11-29 07:36] LABS: BASO % 0.8 % (0-2.0); EOS % 5.1 % (0-4.5); HEMATOCRIT 24.4 % (35.4-49); HEMOGLOBIN 8.3 GM/dL (11.7-16.9); LYMPH % 39.2 % (8-40); MCH 29.4 pg (25.7-33.7); MCHC 33.8 g/dl (32.0-35.9); MEAN PLT VOLUME 7.9 fl (7.5-11.1); MONO % 7.2 % (3.8-10.2); NEUT % 47.7 % (42.8-82.8); PLATELET COUNT 223 K/MM3 (134-434); RBC 2.81 M/mm3 (4.00-5.60); RDW 15.2 % (11.9-15.9); WHITE BLOOD COUNT 6.7 K/mm3 (4.0-10.0)
[2017-11-29] MEDS ORDERED: SEVELAMER CARBONATE 800 MG TAB (FP) PO SCH (08:00)
[2017-11-29] MEDS: SEVELAMER CARBONATE 800 MG TAB (FP) PO SCH ×2 (08:02→12:52)
[2017-11-29 09:02] LABS: ANION GAP 11 (8-16); BLOOD UREA NITROGEN 19 mg/dL (7-18); CALCIUM 8.8 mg/dL (8.5-10.1); CHLORIDE 102 mmol/L (98-107); CO2 30 mmol/L (21-32); CREATININE 7.4 mg/dL (0.7-1.3); GLUCOSE,RANDOM 83 mg/dL (74-106); PHOSPHOROUS 3.8 mg/dL (2.5-4.9); POTASSIUM 4.2 mmol/L (3.5-5.1); SODIUM 143 mmol/L (136-145)
--- NOTE | 2017-11-29 09:18 | PN ---
Progress Note (short form) - Note Progress Note: Neurology HISTORY OF PRESENT ILLNESS: 22 y/o M with PMH Autism, HTN, CDK on HD TTS started 1-2 months ago, seizure disorder. He had cath placed on anterior chest in the past and had L av fistula placed (scheduled for use starting next week). He reportedly pulled cath out, so a new line was placed on the patients back. On evening of admission, he reached back and broke the catheter and tore some skin around the port site. Ambulance was called. Pt's mother placed a clip on the leaking port and achieved hemostasis. Per report, en route to the ED, pt seized in the ambulance. Again in the ED pt seized and contracted neck leading to a bradypnic episode. Pulses were lost and pt was coded for 2 min after which ROSC was achieved. Pt intubated, sedated on Midazolam, which has since been tapered off. Downgraded from ICU and floor status now. He has been on Vimpat 150mg twice daily along with depakote 500mg twice daily without seizures. Active Medications Divalproex Sodium (Depakote -) 500 mg PO BID [facility] Last Admin: 11/28/17 23:24 Dose: 500 mg Heparin Sodium (Porcine) (Heparin -) 5,000 unit SQ TID [facility] Last Admin: 11/29/17 06:10 Dose: 5,000 unit Labetalol HCl (Normodyne -) 600 mg PO TID [facility] Last Admin: 11/29/17 06:10 Dose: 600 mg Lacosamide (Vimpat -) 150 mg PO BID [facility] Last Admin: 11/28/17 22:57 Dose: 150 mg Lisinopril (Prinivil) 10 mg PO DAILY [facility] Lorazepam (Ativan -) 1 mg PO Q12H PRN PRN Reason: ANXIETY Multivit/Ca Carb/B Cmplx/FA/Prenat (Nephro-Claudia -) 1 tablet PO DAILY [facility] Nifedipine (Procardia Xl -) 90 mg PO BID [facility] Last Admin: 11/28/17 23:08 Dose: 90 mg Sevelamer Carbonate (Renvela -) 1,600 mg PO TIDCM [facility] Last Admin: 11/29/17 08:02 Dose: 1,600 mg PHYSICAL EXAMINATION Vital Signs Period Temp Pulse Resp BP Sys/Mora Pulse Ox Last 24 Hr 98.4 F-99.4 F 76-86 17-20 112-160/67-101 99 Gen: AWake, alert, not following commands HEENT: EOMI, pupils reactive to light Neck: no jvd Cardio: decreased lung sounds rrr, normal s1s2, no mrg appreciated Pulm: good air entry b/l, coarse breath sounds Abd: soft, no organomegally. Right femoral line Back: line at R medial to scapula. Skin torn. Line clipped. no bleeding. Ext: 2+ pulses. LUE AV fistula at AC with thrill and weak pulse distally. Neuro: awake, tracking examiner, not following complex commands, moves all ext grossly, sensory intact to LT CBCD WBC 6.7 K/mm3 (4.0-10.0) 11/29/17 06:20 RBC 2.81 M/mm3 (4.00-5.60) L 11/29/17 06:20 Hgb 8.3 GM/dL (11.7-16.9) L 11/29/17 06:20 Hct 24.4 % (35.4-49) L 11/29/17 06:20 MCV 87.0 fl (80-96) 11/29/17 06:20 MCHC 33.8 g/dl (32.0-35.9) 11/29/17 06:20 RDW 15.2 % (11.9-15.9) 11/29/17 06:20 Plt Count 223 K/MM3 (134-434) 11/29/17 06:20 MPV 7.9 fl (7.5-11.1) 11/29/17 06:20 CMP Sodium 143 mmol/L (136-145) 11/29/17 06:20 Potassium 4.2 mmol/L (3.5-5.1) D 11/29/17 06:20 Chloride 102 mmol/L (98-107) 11/29/17 06:20 Carbon Dioxide 30 mmol/L (21-32) 11/29/17 06:20 Anion Gap 11 (8-16) 11/29/17 06:20 BUN 19 mg/dL (7-18) H D 11/29/17 06:20 Creatinine 7.4 mg/dL (0.7-1.3) H 11/29/17 06:20 Creat Clearance w eGFR 9.19 (>60) 11/29/17 06:20 Calcium 8.8 mg/dL (8.5-10.1) 11/29/17 06:20 Total Bilirubin 0.5 mg/dL (0.2-1.0) 11/28/17 05:30 AST 13 U/L (15-37) L 11/28/17 05:30 ALT 15 U/L (12-78) 11/28/17 05:30 Alkaline Phosphatase 85 U/L (45-117) 11/28/17 05:30 Total Protein 6.1 g/dl (6.4-8.2) L 11/28/17 05:30 Albumin 3.0 g/dl (3.4-5.0) L 11/28/17 05:30 ASSESSMENT/PLAN: 22 y/o M with PMH Autism, HTN, CDK on HD TTS started 1-2 months ago, seizure disorder. He had cath placed on anterior chest in the past and had L av fistula placed (scheduled for use starting next week). He reportedly pulled cath out, so a new line was placed on the patients back. On evening of admission, he reached back and broke the catheter and tore some skin around the port site. Ambulance was called. Pt's mother placed a clip on the leaking port and achieved hemostasis. Per report, en route to the ED, pt seized in the ambulance. Again in the ED pt seized and contracted neck leading to a bradypnic episode. Pulses were lost and pt was coded for 2 min after which ROSC was achieved. Pt intubated, sedated on Midazolam, and fem line was placed. He was sedated and intubated and sent to ICU where he currently is. Now extubated and on facemask. Per mother, he had been on depakote 1250mg in the past and was decreased due to concern for platelet count. He has been on Vimpat 150mg twice daily. No longer on sedation and mental status improving. Started depakote 500mg twice daily for added protection Has been seizure free Downgraded from ICU to floor Continue HD, slow flow HD if possible, per renal Avoid large volume shifts Maintian hydration Monitor BP, maintain normotensive range monitor lytes DVTppx Discussed with mother who remains at bedside
[2017-11-29] MEDS ORDERED: LISINOPRIL 10 MG TABLET (FP) PO SCH ×2 (10:00)
[2017-11-29] MEDS ORDERED: VITAMIN B COMP W-C 1 EA TABLET PO SCH ×2 (10:00)
[2017-11-29] MEDS ORDERED: PT OWN MED DRAWER 7, Y5N ONE ×2 (10:58→11:11)
[2017-11-29] MEDS: NIFEdipine E.R. 90 MG TABLET (FP) PO SCH (11:02)
[2017-11-29] MEDS: LACOSAMIDE 50 MG TABLET PO SCH (11:02)
[2017-11-29] MEDS: DIVALPROEX SODIUM 500 MG TABLET E.C. PO SCH (11:03)
--- NOTE | 2017-11-29 12:17 | PN ---
Progress Note, Physician History of Present Illness: Pt seen and examined at bedside. He is awake and appears comfortable. - Current Medication List Current Medications: Active Medications Divalproex Sodium (Depakote -) 500 mg PO BID [facility] Last Admin: 11/29/17 11:03 Dose: 500 mg Heparin Sodium (Porcine) (Heparin -) 5,000 unit SQ TID [facility] Last Admin: 11/29/17 06:10 Dose: 5,000 unit Labetalol HCl (Normodyne -) 600 mg PO TID [facility] Last Admin: 11/29/17 06:10 Dose: 600 mg Lacosamide (Vimpat -) 150 mg PO BID [facility] Last Admin: 11/29/17 11:02 Dose: 150 mg Lisinopril (Prinivil) 10 mg PO DAILY [facility] Last Admin: 11/29/17 11:01 Dose: 10 mg Lorazepam (Ativan -) 1 mg PO Q12H PRN PRN Reason: ANXIETY Multivit/Ca Carb/B Cmplx/FA/Prenat (Nephro-Claudia -) 1 tablet PO DAILY [facility] Last Admin: 11/29/17 11:03 Dose: 1 tablet Nifedipine (Procardia Xl -) 90 mg PO BID [facility] Last Admin: 11/29/17 11:02 Dose: 90 mg Sevelamer Carbonate (Renvela -) 1,600 mg PO TIDCM [facility] Last Admin: 11/29/17 08:02 Dose: 1,600 mg - Objective Vital Signs: Vital Signs Temperature 99.4 F 11/29/17 05:00 Pulse Rate 82 11/29/17 05:00 Respiratory Rate 20 11/29/17 05:00 Blood Pressure 143/71 11/29/17 05:00 O2 Sat by Pulse Oximetry (%) 99 11/28/17 21:00 Constitutional: Yes: Calm Eyes: Yes: Conjunctiva Clear HENT: Yes: Atraumatic Neck: Yes: Supple Cardiovascular: Yes: S1, S2 Respiratory: Yes: CTA Bilaterally Gastrointestinal: Yes: Normal Bowel Sounds, Soft Genitourinary: Yes: WNL Musculoskeletal: Yes: WNL Edema: No Neurological: Yes: Pre-Existing Deficit Labs: CBC, BMP 11/29/17 06:20 11/29/17 06:20 INR, PTT INR 0.97 (0.82-1.09) 11/26/17 04:30 Problem List - Problems (1) Cardiac arrest Code(s): I46.9 - CARDIAC ARREST, CAUSE UNSPECIFIED (2) Seizures Code(s): R56.9 - UNSPECIFIED CONVULSIONS (3) ESRD (end stage renal disease) Code(s): N18.6 - END STAGE RENAL DISEASE Assessment/Plan Current Medications Generic Name Dose Route Start Last Admin Trade Name Freq PRN Reason Stop Dose Admin Divalproex Sodium 500 mg 11/28/17 22:00 11/29/17 11:03 Depakote - PO [address] Administration Heparin Sodium (Porcine) 5,000 unit 11/28/17 22:00 11/29/17 06:10 Heparin - SQ 5,[address] Administration Labetalol HCl 600 mg 11/28/17 22:00 11/29/17 06:10 Normodyne - PO [address] Administration Lacosamide 150 mg 11/28/17 22:00 11/29/17 11:02 Vimpat - PO [address] Administration Lisinopril 10 mg 11/29/17 10:00 11/29/17 11:01 Prinivil PO [address] Administration Lorazepam 1 mg 11/28/17 21:31 Ativan - PO Q12H PRN ANXIETY Multivit/Ca Carb/B Cmplx/FA/Prenat 1 tablet 11/29/17 10:00 11/29/17 11:03 Nephro-Claudia - PO [address] Administration Nifedipine 90 mg 11/28/17 22:00 11/29/17 11:02 Procardia Xl - PO [address] Administration Sevelamer Carbonate 1,600 mg 11/29/17 08:00 11/29/17 08:02 Renvela - PO 1,[address] Administration Impression 1. ESRD 2. autism 3. HTN 4. anemia 5. epilepsy 6. hx of pleural effusions 7. hyperkalemia Plan - pt has HD set up as outpt - he tolerated HD yesterday - discussed with medical team - discussed plan with family Dr Velasquez
--- NOTE | 2017-11-29 12:32 | PN ---
Teaching Attending Note Name of Resident: Boby Mooney ATTENDING PHYSICIAN STATEMENT I saw and evaluated the patient. I reviewed the resident's note and discussed the case with the resident. I agree with the resident's findings and plan as documented with exceptions below. SUBJECTIVE: Patient seen and examined, pleasant, no complaints, mother at bedside, no complaints. OBJECTIVE: Vital Signs Period Temp Pulse Resp BP Sys/Mora Pulse Ox Last 24 Hr 98.4 F-99.4 F 76-86 17-20 127-160/70-101 99 Intake & Output 11/26/17 11/27/17 11/28/17 11/29/17 23:59 23:59 23:59 23:59 Intake Total 120 525 400 200 Output Total 0 445 240 100 Balance 120 80 160 100 Weight 151 lb 151 lb 152 lb 8.958 oz 150 lb 6.4 oz General: sitting in bed ;playing on ipad, pleasant Home Medications Medication Instructions Recorded Labetalol HCl [Normodyne -] 600 mg PO TID #90 tablet 10/09/17 Lacosamide [Vimpat -] 150 mg PO BID #60 tab MDD 2 10/09/17 Nifedipine ER [Procardia XL -] 90 mg PO BID #60 tab.er.24 10/09/17 Sevelamer Carbonate [Renvela -] 1,600 mg PO TIDCM #90 tab 10/09/17 hydrALAZINE HCL [Apresoline -] 50 mg PO TID #90 tablet 10/09/17 Lisinopril [Prinivil] 10 mg PO DAILY #30 tablet 10/11/17 LORazepam [Ativan] 1 mg PO MOWEFR #12 tablet MDD 1MG 11/02/17 Isosorbide Mononitrate [Isosorbide 30 mg PO BID 11/26/17 Mononitrate ER] Divalproex [Depakote -] 500 mg PO BID #60 tablet.ec 11/29/17 Vitamin B Comp W-C [Nephro-Claudia -] 1 tablet PO DAILY tablet 11/29/17 Active Medications Divalproex Sodium (Depakote -) 500 mg PO BID [facility] Last Admin: 11/29/17 11:03 Dose: 500 mg Heparin Sodium (Porcine) (Heparin -) 5,000 unit SQ TID [facility] Last Admin: 11/29/17 06:10 Dose: 5,000 unit Labetalol HCl (Normodyne -) 600 mg PO TID [facility] Last Admin: 11/29/17 06:10 Dose: 600 mg Lacosamide (Vimpat -) 150 mg PO BID [facility] Last Admin: 11/29/17 11:02 Dose: 150 mg Lisinopril (Prinivil) 10 mg PO DAILY [facility] Last Admin: 11/29/17 11:01 Dose: 10 mg Lorazepam (Ativan -) 1 mg PO Q12H PRN PRN Reason: ANXIETY Multivit/Ca Carb/B Cmplx/FA/Prenat (Nephro-Claudia -) 1 tablet PO DAILY [facility] Last Admin: 11/29/17 11:03 Dose: 1 tablet Nifedipine (Procardia Xl -) 90 mg PO BID [facility] Last Admin: 11/29/17 11:02 Dose: 90 mg Sevelamer Carbonate (Renvela -) 1,600 mg PO TIDCM [facility] Last Admin: 11/29/17 08:02 Dose: 1,600 mg ASSESSMENT AND PLAN: 22yo M with PMH autism, ESRD on HD via permacath, seizure and HTN presented to the ER after pt pulled HD catheter out from his back which he has done several times in the past (reason catheter was tunneled to the back) and was found to have significant bleeding and had seizure en route to the ER and again in the ER which led patient to become unresponsive and Code 99 was called. ROSC achieved in 2 minutes and was intubated in the ER. -Acute hypoxic respiratory failure, suspected from seizure/post ictal phase -Seizure, suspecetd from large volume blood loss -Acute blood loss anemia on anemia of chronic disease -ESRD on HD -Hyperkalemia -Elevated troponin, trended down, suspect from CPR vs Demand from above vs ESRD -HTN Plan; doing well, labs noted, discussed with Dr. Velasquez, no plan for HD today. Outpatient monitoring. Continue vimpat/depakote. Outpatient CBC monitoring. d/c home today. Plan discussed with mother at bedside in detail, all questions answered. Verbalized understanding and in agreement with the plan.
--- NOTE | 2017-11-29 12:37 | DS ---
Physical Exam: SUBJECTIVE: Patient seen and examined OBJECTIVE: Vital Signs Period Temp Pulse Resp BP Sys/Mora Pulse Ox Last 24 Hr 98.4 F-99.4 F 76-86 17-20 128-160/70-101 96-99 PHYSICAL EXAM GENERAL: The patient is awake, alert, and fully oriented, in no acute distress. HEAD: Normal with no signs of trauma. EYES: PERRL, extraocular movements intact, sclera anicteric, conjunctiva clear. ENT: Ears normal, nares patent, oropharynx clear without exudates, moist mucous membranes. NECK: Trachea midline, full range of motion, supple. LUNGS: Breath sounds equal, clear to auscultation bilaterally, no wheezes, no crackles, no accessory muscle use. HEART: Regular rate and rhythm, S1, S2 without murmur, rub or gallop. ABDOMEN: Soft, nontender, nondistended, normoactive bowel sounds, no guarding, no rebound, no hepatosplenomegaly, no masses. EXTREMITIES: 2+ pulses, warm, well-perfused, no edema. NEUROLOGICAL: Cranial nerves II through XII grossly intact. Normal speech, gait not observed. PSYCH: Normal mood, normal affect. SKIN: Warm, dry, normal turgor, no rashes or lesions noted. LABS Laboratory Results - last 24 hr 11/25/17 11/29/17 11/29/17 21:05 06:20 06:20 WBC 6.7 RBC 2.81 L Hgb 8.3 L Hct 24.4 L MCV 87.0 MCH 29.4 MCHC 33.8 RDW 15.2 Plt Count 223 MPV 7.9 Absolute Neuts (auto) 3.2 Neutrophils % 47.7 D Lymphocytes % 39.2 D Monocytes % 7.2 Eosinophils % 5.1 H Basophils % 0.8 Nucleated RBC % 0 Sodium 143 Potassium 4.2 D Chloride 102 Carbon Dioxide 30 Anion Gap 11 BUN 19 H D Creatinine 7.4 H Creat Clearance w eGFR 9.19 Random Glucose 83 Calcium 8.8 Phosphorus 3.8 Magnesium 2.0 Blood Type O POSITIVE Antibody Screen Negative Crossmatch See Detail HOSPITAL COURSE: Date of Admission:11/25/17 Date of Discharge: 11/29/17 Minutes to complete discharge: 36 Discharge Summary Reason For Visit: CARDIAC ARREST END STAGE RENAL FAILURE Current Active Problems Cardiac arrest (Acute) Complication, dialysis catheter clot or failure (Acute) Dialysis complication (Acute) Respiratory failure (Acute) Autism (Chronic) ESRD (end stage renal disease) (Chronic) Seizures (Chronic) Condition: Good - Instructions Diet, Activity, Other Instructions: Your seizure medications have been adjusted Depakoate has been added back to your medications Take 500mg of depakoate twice a day You will continue with vimpat as usual- 150mg twice a day Continue with all your other medications as prescribed Follow up with your vascular surgeon for review of your av fistula Follow up with your primary care doctor in one week Follow up with your chair upholsterer and continue with dialysis as scheduled Follow up with your neurologist Your platelet counts will need to be monitored on depakote. CBC (complete blood count) in 1 week with your doctor to monitor your hemoglobin and platelets. No driving, operating heavy machinery, being alone with children on heights or by water. If you think your symptoms are worsening, return to the emergency room Referrals: Francis Brenner MD [Staff Physician] - 1 Week Ismael Calzada MD [Staff Physician] - 1 Week Beni Kc MD [Staff Physician] - Rani Velasquez MD [Primary Care Provider] - 1 Week Disposition: HOME - Home Medications Comprehensive Discharge Medication List: Ambulatory Orders Labetalol HCl [Normodyne -] 600 mg PO TID #90 tablet 10/09/17 Lacosamide [Vimpat -] 150 mg PO BID #60 tab MDD 2 10/09/17 Nifedipine ER [Procardia XL -] 90 mg PO BID #60 tab.er.24 10/09/17 Sevelamer Carbonate [Renvela -] 1,600 mg PO TIDCM #90 tab 10/09/17 hydrALAZINE HCL [Apresoline -] 50 mg PO TID #90 tablet 10/09/17 Lisinopril [Prinivil] 10 mg PO DAILY #30 tablet 10/11/17 LORazepam [Ativan] 1 mg PO MOWEFR #12 tablet MDD 1MG 11/02/17 Isosorbide Mononitrate [Isosorbide Mononitrate ER] 30 mg PO BID 11/26/17 Divalproex [Depakote -] 500 mg PO BID #60 tablet.ec 11/29/17 Vitamin B Comp W-C [Nephro-Claudia -] 1 tablet PO DAILY tablet 11/29/17 This patient is new to me today: No Emergency Visit: Yes ED Registration Date: 11/25/17 Care time: The patient presented to the Emergency Department on the above date and was hospitalized for further evaluation of their emergent condition. Critical Care patient: No - Discharge Referral Referred to [facility] No
[2017-11-29 15:54] VITALS: BP 162/78; TEMP 98.4
[2017-12-01 00:09] LABS: HBSAG SCREEN Negative (Negative); HEP A AB, IGM Negative (Negative); HEP B CORE AB, TOT Negative (Negative)
== END 2017-11-29 13:38 | disposition home or self-care (01) | DRG 208 ==
LOC: JER 20:43 → SUPCPDRO 20:43 → JERBED 22:41 → JICU 11-26 00:42 → J8W 11-28 21:06
PROVIDERS: ADMIT Internal Medicine; ATTEND Hospitalist
PROC: 5A12012 Performance of Cardiac Output, Single, Manual (ICD-10-PCS; principal; 2017-11-25)
PROC: 5A1935Z Respiratory Ventilation, Less than 24 Consecutive Hours (ICD-10-PCS; 2017-11-25)
PROC: 0BH17EZ Insertion of Endotracheal Airway into Trachea, Via Natural or Artificial Opening (ICD-10-PCS; 2017-11-25)
PROC: 0JH60XZ Insertion of Tunneled Vascular Access Device into Chest Subcutaneous Tissue and Fascia, Open Approach (ICD-10-PCS; 2017-11-27)
PROC: 5A1D70Z Performance of Urinary Filtration, Intermittent, Less than 6 Hours Per Day (ICD-10-PCS; 2017-11-28)
DX: J96.01 Acute respiratory failure with hypoxia (principal); I46.8 Cardiac arrest due to other underlying condition; N18.6 End stage renal disease; F84.0 Autistic disorder; I12.0 Hypertensive chronic kidney disease with stage 5 chronic kidney disease or end stage renal disease; D62 Acute posthemorrhagic anemia; T82.898A Other specified complication of vascular prosthetic devices, implants and grafts, initial encounter; G40.909 Epilepsy, unspecified, not intractable, without status epilepticus; I45.10 Unspecified right bundle-branch block; Y83.9 Surgical procedure, unspecified as the cause of abnormal reaction of the patient, or of later complication, without mention of misadventure at the time of the procedure; Y92.230 Patient room in hospital as the place of occurrence of the external cause; E87.5 Hyperkalemia; R74.8 Abnormal levels of other serum enzymes; D63.8 Anemia in other chronic diseases classified elsewhere
CPT/HCPCS: 36415; 36430; 36600; 71045-TC-FY; 76000-TC-FY; 80048; 80053; 82375; 82550; 82728; 82803; 82962; 83050; 83540; 83550; 83735; 84100; 84484; 85025; 85027; 85610; 85730; 86704; 86706; 86708; 86803; 86850; 86900; 86901; 86922; 87340; 90670; 93005; 93010; 93306-TC; 99285-25; G0480; J0885; J1644; P9038; P9058

== ENCOUNTER 2018-01-19 15:06 | Emergency (ER) | payer OTHER, BC ==
--- NOTE | 2018-01-19 15:19 | PDOC ---
Attending Attestation - Resident Resident Name: Alina Faulknerie - HPI HPI: 01/19/18 16:28 Pt presents to the ED after brought in from home for bleeding from his fistula which has now resolved. patient has autism and removed the dressing after HD today as per the father. Bleeding resolved with pressure prior to EMS arrival - Physicial Exam PE: 01/19/18 16:32 Agree with resident exam. Patient has 4 puncture wounds in the fistula that are not actively bleeding. + thrill. - Medical Decision Making 01/19/18 16:38 Pt presents to the ED complaining of bleeding from his fistula that resolved approximately 90 minutes ago. No other complaints. Will discharge home with instructions to return to the ED for repeat bleeding that does not resolve promptly with pressure.
--- NOTE | 2018-01-19 15:25 | PDOC ---
History of Present Illness - General Chief Complaint: Dialysis Shunt Problem Stated Complaint: BLEEDING Time Seen by Provider: 01/19/18 15:18 - History of Present Illness Initial Comments: 01/19/18 15:20 22 year old man with past medical history of HTN, kidney failure and autism who presents after pulling at L forearm AV fistula and causing bleeding. Father put pressure on the arm and hemostasis was achieved prior to EMS arrival. Father notes that patient has had elevated blood pressure of the high 150s - 160s for several months. No other complaints at bedside. PMHX: as in HPI PSHX: Meds: Allergies: cefprozil Tob: none Etoh: none Rec drugs: none PCP: Past History - Past Medical History Allergies/Adverse Reactions: Allergies Allergy/AdvReac Type Severity Reaction Status Date / Time cefprozil [From Cefzil] Allergy Intermediate Rash Verified 01/19/18 15:52 Home Medications: Ambulatory Orders Labetalol HCl [Normodyne -] 600 mg PO TID #90 tablet 10/09/17 Lacosamide [Vimpat -] 150 mg PO BID #60 tab MDD 2 10/09/17 Nifedipine ER [Procardia XL -] 90 mg PO BID #60 tab.er.24 10/09/17 Sevelamer Carbonate [Renvela -] 1,600 mg PO TIDCM #90 tab 10/09/17 hydrALAZINE HCL [Apresoline -] 50 mg PO TID #90 tablet 10/09/17 Lisinopril [Prinivil] 10 mg PO DAILY #30 tablet 10/11/17 Divalproex [Depakote -] 500 mg PO BID #60 tablet.ec 11/29/17 Vitamin B Comp W-C [Nephro-Claudia -] 1 tablet PO DAILY tablet 11/29/17 Dialysis Splint 1 unit NR DAILY #1 unit 12/05/17 Lorazepam [Ativan] 4 mg PO PRN PRN #10 tablet MDD 4mg 12/05/17 Bath Torso Support 1 unit NR DAILY #1 unit 12/05/17 Unobtainable 01/19/18 Asthma: No Cancer: No Cardiac Disorders: No CVA: No COPD: No CHF: No DVT: No Dementia: No Diabetes: No Dialysis: Yes GI Disorders: No Disorders: Yes (acute renal failure) HTN: Yes Liver Disease: No Seizures: Yes (SEIZURES) Thyroid Disease: No - Surgical History Abdominal Surgery: Yes (yogesh inguinal surgery) - Immunization History Td Vaccination: No - Suicide/Smoking/Psychosocial Hx Smoking Status: No Smoking History: Never smoked Years of Tobacco Use: 0 Have you smoked in the past 12 months: No Number of Cigarettes Smoked Daily: 0 Cigars Per Day: 0 Hx Alcohol Use: No Drug/Substance Use Hx: No Substance Use Type: None Hx Substance Use Treatment: No *Physical Exam - Physical Exam Comments: 01/19/18 15:27 well appearing, bruising on R fistula site CTAB, RRR no abdominal tenderness Medical Decision Making - Medical Decision Making 01/19/18 15:27 Pt stable. elevated BP. baseline per father 01/19/18 16:05 pt. reassessed stable. Fistula redressed. Patient stable for discharge. Given follow up instructions and return precautions. *DC/Admit/Observation/Transfer Diagnosis at time of Disposition: Bleeding - Discharge Dispostion Disposition: HOME Condition at time of disposition: Stable Decision to Admit order: No - Referrals - Patient Instructions Printed Discharge Instructions: DI for AV Fistula or Graft Declotting Additional Instructions: You were seen in the ED for complaints of AV fistula. In the ED you were examined and did appear to require further workup. There does not appear to be an acute need for immediate hospitalization. You are advised to follow up with your primary care physician within 1 week. Return to the ED immediately if you experience repeat bleeding of the fistula site, fever, nausea, vomiting, nausea or diarrhea. - Post Discharge Activity
[2018-01-19 15:57] VITALS: BP 158/103; PULSE 73; TEMP 97.3; BMI 22.8
== END 2018-01-19 16:36 | disposition home or self-care (01) ==
LOC: JER 15:06
DX: T82.838A Hemorrhage due to vascular prosthetic devices, implants and grafts, initial encounter (principal); Y83.2 Surgical operation with anastomosis, bypass or graft as the cause of abnormal reaction of the patient, or of later complication, without mention of misadventure at the time of the procedure; Y92.018 Other place in single-family (private) house as the place of occurrence of the external cause; I12.0 Hypertensive chronic kidney disease with stage 5 chronic kidney disease or end stage renal disease; N18.6 End stage renal disease; N17.8 Other acute kidney failure; Z99.2 Dependence on renal dialysis; F84.0 Autistic disorder
CPT/HCPCS: 99282-25

== ENCOUNTER 2018-05-07 18:44 | Emergency (ER) | payer OTHER, BC ==
--- NOTE | 2018-05-07 18:48 | PDOC ---
History of Present Illness - General Stated Complaint: BLEEDING Time Seen by Provider: 05/07/18 18:48 - History of Present Illness Initial Comments: 05/07/18 18:48 Mr. El is a 22 yo male w/ pmh of autism, HTN, seizure disorder (on vimpat), and ESRD (T/R/S, completed full session today) who presents for bleeding from AV fistula site. Per mother he took off his post-dialysis pressure dressing on schedule at 6pm tonight and she noted spurting blood from the dialysis site. Mother placed a dressing on and called EMS who also placed a tourniquet. Patient is otherwise at baseline per mother. The patient denies chest pain, shortness of breath, headache and dizziness. Denies fever, chills, nausea, vomit, diarrhea and constipation. Denies dysuria, frequency, urgency and hematuria. Past History - Past Medical History Allergies/Adverse Reactions: Allergies Allergy/AdvReac Type Severity Reaction Status Date / Time cefprozil [From Cefzil] Allergy Intermediate Rash Verified 01/19/18 15:52 Home Medications: Ambulatory Orders Labetalol HCl [Normodyne -] 600 mg PO TID #90 tablet 10/09/17 Lacosamide [Vimpat -] 150 mg PO BID #60 tab MDD 2 10/09/17 Nifedipine ER [Procardia XL -] 90 mg PO BID #60 tab.er.24 10/09/17 Sevelamer Carbonate [Renvela -] 1,600 mg PO TIDCM #90 tab 10/09/17 hydrALAZINE HCL [Apresoline -] 50 mg PO TID #90 tablet 10/09/17 Lisinopril [Prinivil] 10 mg PO DAILY #30 tablet 10/11/17 Divalproex [Depakote -] 500 mg PO BID #60 tablet.ec 11/29/17 Vitamin B Comp W-C [Nephro-Claudia -] 1 tablet PO DAILY tablet 11/29/17 Dialysis Splint 1 unit NR DAILY #1 unit 12/05/17 Lorazepam [Ativan] 4 mg PO PRN PRN #10 tablet MDD 4mg 12/05/17 Union Torso Support 1 unit NR DAILY #1 unit 12/05/17 Unobtainable 01/19/18 Asthma: No Cancer: No Cardiac Disorders: No CVA: No COPD: No CHF: No DVT: No Dementia: No Diabetes: No Dialysis: Yes GI Disorders: No Disorders: Yes (acute renal failure) HTN: Yes Liver Disease: No Seizures: Yes (SEIZURES) Thyroid Disease: No - Surgical History Abdominal Surgery: Yes (yogesh inguinal surgery) - Immunization History Td Vaccination: No - Suicide/Smoking/Psychosocial Hx Smoking Status: No Smoking History: Never smoked Years of Tobacco Use: 0 Have you smoked in the past 12 months: No Number of Cigarettes Smoked Daily: 0 Cigars Per Day: 0 Hx Alcohol Use: No Drug/Substance Use Hx: No Substance Use Type: None Hx Substance Use Treatment: No Review of Systems - Review of Systems Comments:: 05/07/18 19:09 GENERAL/CONSTITUTIONAL: No fever or chills. No weakness. HEAD, EYES, EARS, NOSE AND THROAT: No change in vision. No ear pain or discharge. No sore throat. CARDIOVASCULAR: No chest pain or shortness of breath RESPIRATORY: No cough, wheezing, or hemoptysis. GASTROINTESTINAL: No nausea, vomiting, diarrhea or constipation. GENITOURINARY: No dysuria, frequency, or change in urination. MUSCULOSKELETAL: +Dialysis bleeding as described. SKIN: No rash NEUROLOGIC: No headache, vertigo, loss of consciousness, or change in strength/ sensation. ENDOCRINE: No increased thirst. No abnormal weight change HEMATOLOGIC/LYMPHATIC: No anemia, easy bleeding, or history of blood clots. ALLERGIC/IMMUNOLOGIC: No hives or skin allergy. *Physical Exam - Physical Exam Comments: 05/07/18 19:10 GENERAL: Awake, alert, and fully oriented, in no acute distress HEAD: No signs of trauma, normocephalic, atraumatic EYES: PERRLA, EOMI, sclera anicteric, conjunctiva clear ENT: Auricles normal inspection, hearing grossly normal, nares patent, oropharynx clear without exudates. Moist mucosa NECK: Normal ROM, supple, no lymphadenopathy, JVD, or masses LUNGS: No distress, speaks full sentences, clear to auscultation bilaterally HEART: Regular rate and rhythm, normal S1 and S2, no murmurs, rubs or gallops, peripheral pulses normal and equal bilaterally. ABDOMEN: Soft, nontender, normoactive bowel sounds. No guarding, no rebound. No masses EXTREMITIES: +AV fistula noted to L upper arm w/ dressing in place. NEUROLOGICAL: Cranial nerves II through XII grossly intact. Normal speech, normal gait, no focal sensorimotor deficits SKIN: Warm, Dry, normal turgor, no rashes or lesions noted. Medical Decision Making - Medical Decision Making 05/07/18 19:11 Mr. lE is a 22 yo male w/ pmh as described who presents for evaluation of AV fistula bleed. Patient dressing taken down and bleeding appears to have slowed/stopped with mother's dressing in place. Abdominal pads and kerlex placed over site w/ additional ANA PAULA bandage. Contacting vascular for further evaluation. 05/07/18 19:59 Discussed patient with Vascular Surgeon (Dr. Kc) who confirmed above was proper action and patient ok for discharge home for outpatient evaluation assuming Risk Assessment Analyst agrees. Discussed patient with Dr. Velasquez who agrees w/ discharge and recommended outpatient venogram to evaluate for stenosis. Discussed with patient mother who will take patient home and follow-up in morning with Dr. Kc. No concern for acute process at this time. Strict return precautions discussed and agreement verbalized by mother. Discharging to home. *DC/Admit/Observation/Transfer Diagnosis at time of Disposition: Complication of AV dialysis fistula Qualifiers: Encounter type: initial encounter Qualified Code(s): T82.9XXA - Unspecified complication of cardiac and vascular prosthetic device, implant and graft, initial encounter - Discharge Dispostion Disposition: HOME - Referrals Referrals: Beni Kc MD [Staff Physician] - Rani Velasquez MD [Staff Physician] - - Patient Instructions Printed Discharge Instructions: DI for Arteriovenous Fistula for Dialysis Additional Instructions: Yanick was evaluated today in the emergency room for his bleeding fistula. No concerning findings were found at this time and we re-wrapped his arm. Discussion with Drs. Venegas and Eva agreed that outpatient follow-up in morning will be acceptable. Keep dressing on until morning and return to ER immediately if any further bleeding or other concerning changes. - Post Discharge Activity
[2018-05-07 19:01] VITALS: BP 140/97; PULSE 74; TEMP 98.4
--- NOTE | 2018-05-07 20:20 | PDOC ---
Attending Attestation - Resident Resident Name: JavyhéctorJonh whiteside - ED Attending Attestation I have performed the following: I have examined & evaluated the patient, The case was reviewed & discussed with the resident, I agree w/resident's findings & plan, Exceptions are as noted - HPI HPI: 05/07/18 20:18 22 yo male BIBA for arterial bleeding from his AV fistula. He had dialysis today and at 6pm took off his bandage and had profuse bleeding. Nuclear Radiation Engineer placed trauma tourniquet and bleeding stopped PMH AUTISM<ESRD 05/07/18 20:32 slender 22 yo male ,resting and alert head ncat neck supple lungs cta b/l cvs [id number] abd soft ext tourniquet on left AV fistula ,no active bleeding,radial and ulnar pulses intact neuro alert,listening to hid mother 's commands - Physicial Exam PE: 05/07/18 20:20 slender 22 yo male p/w bloody tourniquet to left AV fistula - Medical Decision Making 05/07/18 20:[address] Velasquez and vascular surgeon Dr Tierney pt is stable and while observed had no further AV fistula bleeding d/c home
== END 2018-05-07 20:35 | disposition home or self-care (01) ==
LOC: JER 18:44
DX: T82.9XXA Unspecified complication of cardiac and vascular prosthetic device, implant and graft, initial encounter (principal); I10 Essential (primary) hypertension; G40.909 Epilepsy, unspecified, not intractable, without status epilepticus; I12.0 Hypertensive chronic kidney disease with stage 5 chronic kidney disease or end stage renal disease; N18.6 End stage renal disease; Z99.2 Dependence on renal dialysis; F84.0 Autistic disorder
CPT/HCPCS: 99281-25

== ENCOUNTER 2018-05-17 12:02 | Observation (INO) | payer OTHER, BC ==
--- NOTE | 2018-05-17 12:39 | PDOC ---
Attending Attestation - HPI HPI: 05/17/18 15:08 The patient is a 22 year old male, with a significant PMH of dialysis, acute renal failure, HTN, seizures who presents to the emergency department for evaluation of low hemoglobin. The patient went to the surveillance lab yesterday for dialysis and reports showed a hemoglobin of [address] Velasquez , patient PCP, suggested patient report to ED for further evaluation. The patient denies chest pain, shortness of breath, headache and dizziness. Denies fever, chills, nausea, vomit, diarrhea and constipation. Denies dysuria, frequency, urgency and hematuria. Allergies: Cefprozil Past surgical history: Inguinal surgery Social history: No reported PCP: Rani Velasquez Documentation prepared by Mitali Heart, acting as medical services coordinator for Sophie Degroot MD. <Mitali Heart - Last Filed: 05/17/18 15:08> - Resident Resident Name: CamachoKingsley - ED Attending Attestation I have performed the following: I have examined & evaluated the patient, The case was reviewed & discussed with the resident, I agree w/resident's findings & plan, Exceptions are as noted - Physicial Exam PE: 05/17/18 15:03 GENERAL: Awake, alert, and fully oriented, in no acute distress HEAD: No signs of trauma EYES: EOMI, sclera anicteric, conjunctiva clear ENT: oropharynx clear without exudates. Moist mucosa NECK: Normal ROM, supple LUNGS: No distress, speaks full sentences, clear to auscultation bilaterally HEART: Regular rate and rhythm, normal S1 and S2, no murmurs ABDOMEN: Soft, nontender, normoactive bowel sounds. EXTREMITIES : Normal inspection, Normal range of motion NEUROLOGICAL: Awake and alert, moving all extremities - Medical Decision Making 05/17/18 12:39 22 yo M ESRD on HD labs reveal Hgb 5 will do labs Will transfuse Will plan to admit 05/17/18 15:00 EKG - NSR rate of 86 bpm, LAD, non specific intravenricular conduction delay, no st elevation or depression 05/17/18 15:44 Laboratory Tests 05/17/18 05/17/18 05/17/18 12:20 13:20 13:20 WBC 4.2 Hgb 5.9 L* Hct 17.4 L D Plt Count 190 D INR 0.92 Potassium 4.2 BUN 35 H Creatinine 6.5 H Case reviewed with Dr. Velasquez will admit for Transfusion Clinical Impression: Anemia, initial presentation <Sophie Degroot - Last Filed: 05/20/18 20:02>
--- NOTE | 2018-05-17 13:41 | PDOC ---
History of Present Illness - General Chief Complaint: Revisit, Lab Variance Stated Complaint: LAB VARIANCE Time Seen by Provider: 05/17/18 12:34 History Source: Parent(s) Exam Limitations: Language Barrier (non verbal) - History of Present Illness Initial Comments: 05/17/18 15:34 22 yo M with a hx of autism, HTN, seizure (last in November 2017), and ESRD (HD / /Sun; last dialysis yesterday) presents to the emergency department as a referral from Dr. Velasquez due to hemoglobin of 5.0 from yesterday prior to dialysis. Per the patient's mother (patient is non-verbal), he has been acting tired over the past 3 days, but is at his best today. She endorses him looking pale, but denies the following: fever, chills, nausea, vomiting, diarrhea, hematochezia, hematuria, and bleeding from his AV fistula (placed on 09/2017). He presented on 05/07/18 for bleeding from AV fistula site that resolved on its own. Per the mother, his hemoglobin on 05/03/2018 was 8.5. Pmhx: Refer to above Shx: AV fistula september 2017 Meds: depakote, labetalol, losartan, norvasc, hydralazine, vimpat. Allergies: Cefprozil Social: Denies tobacco, alcohol, and substance abuse. Past History - Past Medical History Allergies/Adverse Reactions: Allergies Allergy/AdvReac Type Severity Reaction Status Date / Time cefprozil [From Cefzil] Allergy Intermediate Rash Verified 05/17/18 12:11 Home Medications: Ambulatory Orders Labetalol HCl [Normodyne -] 600 mg PO TID #90 tablet 10/09/17 Lacosamide [Vimpat -] 150 mg PO BID #60 tab MDD 2 10/09/17 Nifedipine ER [Procardia XL -] 90 mg PO BID #60 tab.er.24 10/09/17 Sevelamer Carbonate [Renvela -] 1,600 mg PO TIDCM #90 tab 10/09/17 hydrALAZINE HCL [Apresoline -] 50 mg PO TID #90 tablet 10/09/17 Lisinopril [Prinivil] 10 mg PO DAILY #30 tablet 10/11/17 Divalproex [Depakote -] 500 mg PO BID #60 tablet.ec 11/29/17 Vitamin B Comp W-C [Nephro-Claudia -] 1 tablet PO DAILY tablet 11/29/17 Dialysis Splint 1 unit NR DAILY #1 unit 12/05/17 Lorazepam [Ativan] 4 mg PO PRN PRN #10 tablet MDD 4mg 12/05/17 [place] Torso Support 1 unit NR DAILY #1 unit 12/05/17 Unobtainable 01/19/18 Asthma: No Cancer: No Cardiac Disorders: No CVA: No COPD: No CHF: No DVT: No Dementia: No Diabetes: No Dialysis: Yes GI Disorders: No Disorders: Yes (acute renal failure) HTN: Yes Liver Disease: No Seizures: Yes (SEIZURES) Thyroid Disease: No - Surgical History Abdominal Surgery: Yes (yogesh inguinal surgery) - Immunization History Td Vaccination: No - Suicide/Smoking/Psychosocial Hx Smoking Status: No Smoking History: Never smoked Years of Tobacco Use: 0 Have you smoked in the past 12 months: No Number of Cigarettes Smoked Daily: 0 Cigars Per Day: 0 Hx Alcohol Use: No Drug/Substance Use Hx: No Substance Use Type: None Hx Substance Use Treatment: No *Physical Exam - Vital Signs Last Vital Signs Temp Pulse Resp BP Pulse Ox 98.7 F 84 20 118/100 99 05/17/18 12:09 05/17/18 12:09 05/17/18 12:09 05/17/18 12:09 05/17/18 12:09 Moderate Sedation - Procedure Monitoring Vital Signs: Procedure Monitoring Vital Signs Temperature 98.7 F 05/17/18 12:09 Pulse Rate 84 05/17/18 12:09 Respiratory Rate 20 05/17/18 12:09 Blood Pressure 118/100 05/17/18 12:09 O2 Sat by Pulse Oximetry (%) 99 05/17/18 12:09 ED Treatment Course - LABORATORY CBC & Chemistry Diagram: 05/17/18 13:20 05/17/18 13:20 - RADIOLOGY Radiology Studies Ordered: Category Date Time Status CHEST X-RAY PORTABLE* [RAD] Stat Radiology 05/17/18 12:36 Ordered Medical Decision Making - Medical Decision Making 05/17/18 15:41 22 yo M with a hx of autism, HTN, seizure (last in November 2017), and ESRD (HD T/TH /Sat; last dialysis yesterday) presents to the emergency department as a referral from Dr. Velasquez due to hemoglobin of 5.0 from yesterday prior to dialysis. Initial vitals: Initial Vital Signs Temp Pulse Resp BP Pulse Ox 98.7 F 84 20 118/100 99 05/17/18 12:09 05/17/18 12:09 05/17/18 12:09 05/17/18 12:09 05/17/18 12:09 Work up: ddx: anemia (reported 5.0 hemoglobin). it was requested to transfuse. Laboratory Tests 05/17/18 05/17/18 05/17/18 12:20 13:20 13:20 WBC 4.2 RBC 1.95 L Hgb 5.9 L* Hct 17.4 L D MCV 89.3 MCH 30.3 MCHC 33.9 RDW 14.9 Plt Count 190 D MPV 8.6 D Absolute Neuts (auto) 2.4 Neutrophils % 58.5 Lymphocytes % 28.4 Monocytes % 9.9 Eosinophils % 2.4 Basophils % 0.8 Nucleated RBC % 0 PT with INR 10.80 INR 0.92 PTT (Actin FS) 30.6 Sodium 137 Potassium 4.2 Chloride 98 Carbon Dioxide 29 Anion Gap 10 BUN 35 H Creatinine 6.5 H Creat Clearance w eGFR 10.68 Random Glucose 117 H Calcium 8.8 Total Bilirubin 0.5 AST 14 L ALT 13 Alkaline Phosphatase 74 Total Protein 6.3 L Albumin 3.3 L Blood Type Antibody Screen Crossmatch 05/17/18 05/17/18 13:20 13:38 WBC RBC Hgb Hct MCV MCH MCHC RDW Plt Count MPV Absolute Neuts (auto) Neutrophils % Lymphocytes % Monocytes % Eosinophils % Basophils % Nucleated RBC % PT with INR INR PTT (Actin FS) Sodium Potassium Chloride Carbon Dioxide Anion Gap BUN Creatinine Creat Clearance w eGFR Random Glucose Calcium Total Bilirubin AST ALT Alkaline Phosphatase Total Protein Albumin Blood Type O POSITIVE O POSITIVE Antibody Screen Negative Crossmatch See Detail hemoglobin at 5.9 which is an improvement from 5 but needs to be transfused. consent signed by family after benefits and risks explained. 05/17/18 15:43 Dr. Velasquez stated he would see the patient today and may dialyze today or tomorrow and to have the patient admitted. 2 units of PRBCs requested based on today's hemoglobin. 05/17/18 16:[address] Velasquez. He states to give 1 unit now and will give the rest tomorrow if not target hemoglobin above 7 by tomorrow. will repeat CBC after 1st transfusion. dialysis tomorrow. *DC/Admit/Observation/Transfer - Referrals Referrals: Rani Velasquez MD [Primary Care Provider] - - Patient Instructions - Post Discharge Activity
[2018-05-17 14:16] LABS: BASO % 0.8 % (0-2.0); EOS % 2.4 % (0-4.5); HEMATOCRIT 17.4 % (35.4-49); LYMPH % 28.4 % (8-40); MCH 30.3 pg (25.7-33.7); MCHC 33.9 g/dl (32.0-35.9); MEAN CELL VOLUME 89.3 fl (80-96); MEAN PLT VOLUME 8.6 fl (7.5-11.1); MONO % 9.9 % (3.8-10.2); NEUT % 58.5 % (42.8-82.8); PLATELET COUNT 190 K/MM3 (134-434); RBC 1.95 M/mm3 (4.00-5.60); RDW 14.9 % (11.9-15.9); WHITE BLOOD COUNT 4.2 K/mm3 (4.0-10.0)
[2018-05-17 14:23] LABS: INR 0.92 (0.83-1.09); PROTHROMBIN TIME (PATIENT) 10.8 SEC (9.7-13.0)
[2018-05-17 14:25] LABS: ACTIVATED PTT 30.6 SECONDS (25.2-36.5)
[2018-05-17 14:29] LABS: ALBUMIN 3.3 g/dl (3.4-5.0); ALK PHOS 74 U/L (45-117); ANION GAP 10 MMOL/L (8-16); BILIRUBIN,TOTAL 0.5 mg/dL (0.2-1); BLOOD UREA NITROGEN 35 mg/dL (7-18); CALCIUM 8.8 mg/dL (8.5-10.1); CHLORIDE 98 mmol/L (98-107); CO2 29 mmol/L (21-32); CREATININE 6.5 mg/dL (0.55-1.3); GLUCOSE,RANDOM 117 mg/dL (74-106); POTASSIUM 4.2 mmol/L (3.5-5.1); SGOT/AST 14 U/L (15-37); SGPT/ALT 13 U/L (13-61); SODIUM 137 mmol/L (136-145); TOT PROT 6.3 g/dl (6.4-8.2)
[2018-05-17 14:39] LABS: HEMOGLOBIN 5.9 GM/dL (11.7-16.9)
--- NOTE | 2018-05-17 15:23 | EKG ---
Test Reason : Blood Pressure : / mmHG Vent. Rate : 086 BPM Atrial Rate : 086 BPM P-R Int : 206 ms QRS Dur : 138 ms QT Int : 446 ms P-R-T Axes : 052 -69 076 degrees QTc Int : 533 ms NORMAL SINUS RHYTHM LEFT AXIS DEVIATION NON-SPECIFIC INTRA-VENTRICULAR CONDUCTION BLOCK NONSPECIFIC T WAVE ABNORMALITY ABNORMAL ECG WHEN COMPARED WITH ECG OF 25-NOV-2017 20:44, NON-SPECIFIC INTRA-VENTRICULAR CONDUCTION BLOCK HAS REPLACED RIGHT BUNDLE BRANCH BLOCK Confirmed by RHEA BILLS, WAQAS ([id number]) on 05/17/2018 3:22:27 PM Referred By: Confirmed By:WAQAS WILKERSON MD
[2018-05-17] MEDS ORDERED: LORAZEPAM 4 MG PO PRN (17:54)
[2018-05-17] MEDS ORDERED: SODIUM CHLORIDE 250 ML IV PRN (18:40)
[2018-05-17] MEDS ORDERED: EPOETIN ALFA 2,000 UNIT/1 ML VIAL IVPUSH ONE (18:40)
--- NOTE | 2018-05-17 18:40 | CONSULT ---
Consult Consult Specialty:: Nephrology Reason for Consultation:: ESRD - History of Present Illness Chief Complaint: I sent pt in for anemia History of Present Illness: Pt is a 22 year old male with pmhx of esrd, epilepsy, autism, htn and anemia who I sent in for a panic alert from the lab of a hg of about 5.8. He did have a bleed from his fistula a few week ago. He appears comfortable. He is unable to give history. He is accompanies by his mother. - Past Medical History BID WRITER: Yes: Seizure, Other (autism) Cardio/Vascular: Yes: HTN Pulmonary: Yes: Other (pleural effusion) Renal/: Yes: Renal Inusuff, Hemodialysis - Past Surgical History Past Surgical History: Yes: AV Fistula/Graft, Hernia Repair - Alcohol/Substance Use Hx Alcohol Use: No - Smoking History Smoking history: Never smoked Have you smoked in the past 12 months: No Aproximately how many cigarettes per day: 0 - Social History Usual Living Arrangement: With Parent Home Medications - Allergies Allergies/Adverse Reactions: Allergies Allergy/AdvReac Type Severity Reaction Status Date / Time cefprozil [From Cefzil] Allergy Intermediate Rash Verified 05/17/18 12:11 - Home Medications Home Medications: Ambulatory Orders Labetalol HCl [Normodyne -] 600 mg PO TID #90 tablet 10/09/17 Lacosamide [Vimpat -] 150 mg PO BID #60 tab MDD 2 10/09/17 Nifedipine ER [Procardia XL -] 90 mg PO BID #60 tab.er.24 10/09/17 Sevelamer Carbonate [Renvela -] 1,600 mg PO TIDCM #90 tab 10/09/17 hydrALAZINE HCL [Apresoline -] 50 mg PO TID #90 tablet 10/09/17 Lisinopril [Prinivil] 10 mg PO DAILY #30 tablet 10/11/17 Divalproex [Depakote -] 500 mg PO BID #60 tablet.ec 11/29/17 Vitamin B Comp W-C [Nephro-Claudia -] 1 tablet PO DAILY tablet 11/29/17 Dialysis Splint 1 unit NR DAILY #1 unit 12/05/17 Lorazepam [Ativan] 4 mg PO PRN PRN #10 tablet MDD 4mg 12/05/17 [place] Torso Support 1 unit NR DAILY #1 unit 12/05/17 Unobtainable 01/19/18 Family Disease History - Family Disease History Family History: Denies Family Disease History: Other: Father (htn) Review of Systems Unable to obtain ROS, reason: pt with autism Physical Exam Vital Signs: Vital Signs Temperature 98.7 F 05/17/18 12:09 Pulse Rate 84 05/17/18 12:09 Respiratory Rate 20 05/17/18 12:09 Blood Pressure 118/100 05/17/18 12:09 O2 Sat by Pulse Oximetry (%) 99 05/17/18 12:09 Constitutional: Yes: Calm Eyes: Yes: WNL HENT: Yes: WNL Neck: Yes: WNL Cardiovascular: Yes: S1, S2 Respiratory: Yes: Rhonchi Gastrointestinal: Yes: Soft Renal/: Yes: WNL Musculoskeletal: Yes: WNL Edema: No Neurological: Yes: Pre-Existing Deficit Labs: CBC, BMP 05/17/18 13:20 05/17/18 13:20 Imaging - Results Chest X-ray: Report Reviewed Problem List - Problems (1) Anemia Code(s): D64.9 - ANEMIA, UNSPECIFIED (2) Sepsis Code(s): A41.9 - SEPSIS, UNSPECIFIED ORGANISM (3) Autism Code(s): F84.0 - AUTISTIC DISORDER (4) ESRD (end stage renal disease) Code(s): N18.6 - END STAGE RENAL DISEASE Assessment/Plan Current Medications Generic Name Dose Route Start Last Admin Trade Name Freq PRN Reason Stop Dose Admin Divalproex Sodium 500 mg 05/17/18 22:00 Depakote - PO BID LANE Heparin Sodium (Porcine) 5,000 unit 05/17/18 22:00 Heparin - SQ BID LANE Hydralazine HCl 50 mg 05/17/18 22:00 Apresoline - PO TID LANE Labetalol HCl 600 mg 05/17/18 22:00 Normodyne - PO TID LANE Lacosamide 150 mg 05/17/18 22:00 Vimpat - PO BID LANE Lisinopril 10 mg 05/18/18 10:[address] Nifedipine 90 mg 05/17/18 22:00 Procardia Xl - PO BID LANE Sevelamer Carbonate 1,600 mg 05/18/18 08:00 Renvela - PO TIDCM LANE Impression 1. ESRD 2. autism 3. HTN 4. anemia 5. epilepsy 6. hx of pleural effusions Plan - pt getting his first unit of blood in ER - will dialyze today and give a second unit - d/c procardia and change to amlodipine as he does not absorb procardia - can give bp meds as scheduled even if he is going to HD - discussed with ER and medical team - discussed with his mother - repeat labs in am - anemia likely from blood loss from fistula, unclear why his hg was not checked at the time - will follow Dr Velasquez
[2018-05-17] MEDS ORDERED: LORazepam 1 MG TABLET PO ONE (18:45)
[2018-05-17] MEDS ORDERED: LORazepam 0.5 MG TABLET ONE (18:48)
[2018-05-17] MEDS ORDERED: LORazepam 0.5 MG TABLET PO ONE (19:00)
[2018-05-17] MEDS ORDERED: EPOETIN ALFA 4,000 UNIT, EPOETIN ALFA 3,000 UNIT IVPUSH ONE (19:15)
--- NOTE | 2018-05-17 20:43 | HP ---
CHIEF COMPLAINT: Lethargy/Tiredness PCP: Dr. Jacobson HISTORY OF PRESENT ILLNESS: 21 year old male with developmental delay/autism, non-verbal, Seizure Disorder, HTN, ESRD on HD (TTS, last HD yesterday), recommended by Steam Table Worker for ED visit based on labs drawn yesterday showing a Hb of 5. Patient is unable to provide a history so collateral history was obtained from his mother who was at bedside. She reports only tiredness - no abdominal pain/nausea/vomting/ hematemesis/melena/hematochezia, no hematuria, no chest pain/SOB/lightheadedness /sweating. Recent history significant for bleed from AV Fistula for which he attended the ED on 05/07/18, where hemostasis was achieved and patient was discharged - no labs were drawn and further bleeding since then. PAST MEDICAL HISTORY: developmental delay/autism, non-verbal, Seizure Disorder, HTN, ESRD on HD (TTS, last HD yesterday) Social History: Lives with mother, mobilizes with foot splints, non-smoker, non-drinker, no drug use. Family History: Reviewed and non-contributory. Allergies cefprozil [From Cefzil] Allergy (Intermediate, Verified 05/17/18 12:11) Rash HOME MEDICATIONS: Home Medications Medication Instructions Recorded Labetalol HCl [Normodyne -] 600 mg PO TID #90 tablet 10/09/17 Lacosamide [Vimpat -] 150 mg PO BID #60 tab MDD 2 10/09/17 Nifedipine ER [Procardia XL -] 90 mg PO BID #60 tab.er.24 10/09/17 Sevelamer Carbonate [Renvela -] 1,600 mg PO TIDCM #90 tab 10/09/17 hydrALAZINE HCL [Apresoline -] 50 mg PO TID #90 tablet 10/09/17 Lisinopril [Prinivil] 10 mg PO DAILY #30 tablet 10/11/17 Divalproex [Depakote -] 500 mg PO BID #60 tablet.ec 11/29/17 Vitamin B Comp W-C [Nephro-Claudia -] 1 tablet PO DAILY tablet 11/29/17 Dialysis Splint 1 unit NR DAILY #1 unit 12/05/17 Lorazepam [Ativan] 4 mg PO PRN PRN #10 tablet MDD 4mg 12/05/17 [place] Torso Support 1 unit NR DAILY #1 unit 12/05/17 Unobtainable 01/19/18 REVIEW OF SYSTEMS Unable to obtain as patient is non-verbal. PHYSICAL EXAMINATION Vital Signs - 24 hr 05/17/18 05/17/18 05/17/18 12:09 14:10 16:30 Temperature 98.7 F 98.1 F Pulse Rate 84 Pulse Rate [ 87 Apical] Respiratory 20 20 Rate Blood Pressure 118/100 Blood Pressure 162/92 [Right Arm] O2 Sat by Pulse 99 98 Oximetry (%) 05/17/18 18:39 Temperature Pulse Rate Pulse Rate [ 92 H Apical] Respiratory 20 Rate Blood Pressure Blood Pressure 159/90 [Right Arm] O2 Sat by Pulse 95 Oximetry (%) GENERAL: Awake, alert, and fully oriented, in no acute distress. Develomentally delayed, non-verbal, mits on HEAD: Normal with no signs of trauma. EYES: Pupils equal, round and reactive to light, extraocular movements intact, sclera anicteric, conjunctiva clear. EARS, NOSE, THROAT: No pharyngeal erythema/exudate NECK: Normal range of motion, supple without lymphadenopathy LUNGS: Breath sounds equal, clear to auscultation bilaterally. No wheezes, and no crackles. HEART: Regular rate and rhythm, normal S1 and S2 without murmur, rub or gallop. ABDOMEN: Soft, nontender, not distended, normoactive bowel sounds, no guarding, no rebound, no masses. UPPER EXTREMITIES: In mits. LUE fistula bruit/thrill. LOWER EXTREMITIES: 2+ pulses, warm, well-perfused. No calf tenderness. No peripheral edema. In leg splints. NEUROLOGICAL: Moving all 4 extremities PSYCHIATRIC: Calm. Unable to follow commands or communicate. SKIN: Warm, dry, normal turgor, no rashes or lesions noted, normal capillary refill. Laboratory Results - last 24 hr 05/17/18 05/17/18 05/17/18 12:20 13:20 13:20 WBC 4.2 RBC 1.95 L Hgb 5.9 L* Hct 17.4 L D MCV 89.3 MCH 30.3 MCHC 33.9 RDW 14.9 Plt Count 190 D MPV 8.6 D Absolute Neuts (auto) 2.4 Neutrophils % 58.5 Lymphocytes % 28.4 Monocytes % 9.9 Eosinophils % 2.4 Basophils % 0.8 Nucleated RBC % 0 PT with INR 10.80 INR 0.92 PTT (Actin FS) 30.6 Sodium 137 Potassium 4.2 Chloride 98 Carbon Dioxide 29 Anion Gap 10 BUN 35 H Creatinine 6.5 H Creat Clearance w eGFR 10.68 Random Glucose 117 H Calcium 8.8 Total Bilirubin 0.5 AST 14 L ALT 13 Alkaline Phosphatase 74 Total Protein 6.3 L Albumin 3.3 L Blood Type Antibody Screen Crossmatch 05/17/18 05/17/18 13:20 13:38 WBC RBC Hgb Hct MCV MCH MCHC RDW Plt Count MPV Absolute Neuts (auto) Neutrophils % Lymphocytes % Monocytes % Eosinophils % Basophils % Nucleated RBC % PT with INR INR PTT (Actin FS) Sodium Potassium Chloride Carbon Dioxide Anion Gap BUN Creatinine Creat Clearance w eGFR Random Glucose Calcium Total Bilirubin AST ALT Alkaline Phosphatase Total Protein Albumin Blood Type O POSITIVE O POSITIVE Antibody Screen Negative Crossmatch See Detail CXR - fluid in horizontal fissure with atelectasis ULs and L base. ECG - NSR, non-specific T wave changes. ASSESSMENT/PLAN: 21 year old male with developmental delay/autism, non-verbal, Seizure Disorder, HTN, ESRD on HD (TTS, last HD yesterday), recommended by Steam Table Worker for ED visit based on labs drawn yesterday showing a Hb of 5. Asymptomatic except for lethargy reported by his mother. No signs of GI or blood loss. 1. Acute Blood Loss Anemia sec to bleed for Left AV Fistula 1 week sgo No further bleeding Hemodynamically stable. H/H 5.9/17.4 - for transfusion of 2 units PRBCs on HD today. Discussed with Nephrology Continue Sevelemer. 2. HTN - nromally on Hydralazine, Nifedipine, Lisinopril, Labetalol. 3. Seizure Disorder - continue Divalproex, Lacosamide. DVT Px - will hold in light of blood loss anemia. Visit type - Emergency Visit Emergency Visit: Yes ED Registration Date: 05/17/18 Care time: The patient presented to the Emergency Department on the above date and was hospitalized for further evaluation of their emergent condition. - New Patient This patient is new to me today: Yes Date on this admission: 05/20/18 - Critical Care Critical Care patient: No
[2018-05-17] MEDS ORDERED: HEPARIN NA (PORCINE) 5,000 UNITS/ML 1ML VIAL SQ SCH (22:00)
[2018-05-17] MEDS ORDERED: NIFEdipine E.R. 90 MG TABLET (FP) PO SCH (22:00)
[2018-05-17] MEDS: hydrALAZINE HCL 50 MG TABLET (FP) PO SCH (22:30)
[2018-05-17] MEDS: LACOSAMIDE 50 MG TABLET PO SCH ×2 (22:30→22:32)
[2018-05-17] MEDS: LABETALOL HCL 200 MG TABLET (FP) PO SCH (22:30)
[2018-05-17] MEDS: amLODIPine BESYLATE 10 MG TABLET (FP) PO SCH (22:30)
[2018-05-18] MEDS: DIVALPROEX SODIUM 500 MG TABLET E.C. PO SCH ×2 (00:57→11:18)
[2018-05-18 03:28] VITALS: BMI 21.9
[2018-05-18] MEDS: hydrALAZINE HCL 50 MG TABLET (FP) PO SCH (06:38)
[2018-05-18] MEDS: LABETALOL HCL 200 MG TABLET (FP) PO SCH (06:38)
[2018-05-18 08:10] LABS: HEMATOCRIT 25.2 % (35.4-49); HEMOGLOBIN 8.5 GM/dL (11.7-16.9); MCH 29.9 pg (25.7-33.7); MCHC 33.6 g/dl (32.0-35.9); MEAN CELL VOLUME 89.2 fl (80-96); MEAN PLT VOLUME 7.6 fl (7.5-11.1); PLATELET COUNT 173 K/MM3 (134-434); RBC 2.82 M/mm3 (4.00-5.60); RDW 14.1 % (11.9-15.9); WHITE BLOOD COUNT 4.4 K/mm3 (4.0-10.0)
[2018-05-18] MEDS: SEVELAMER CARBONATE 800 MG TAB (FP) PO SCH ×2 (08:30→12:45)
[2018-05-18] MEDS ORDERED: LISINOPRIL 10 MG TABLET (FP) PO SCH (10:00)
[2018-05-18] MEDS ORDERED: [UNRECOGNIZED DRUG - SUPPLY] NR SCH (10:00)
[2018-05-18] MEDS ORDERED: LISINOPRIL 20 MG TABLET (FP) PO SCH (10:00)
[2018-05-18] MEDS ORDERED: [UNRECOGNIZED DRUG - OTHER] NR SCH (10:00)
[2018-05-18] MEDS ORDERED: PT OWN MED DRAWER 7, Y5N ONE (10:57)
[2018-05-18] MEDS ORDERED: LACOSAMIDE 50 MG TABLET PO SCH (11:00)
[2018-05-18] MEDS ORDERED: LOSARTAN POTASSIUM 100 MG TABLET PO SCH ×2 (11:00→11:26)
[2018-05-18] MEDS ORDERED: amLODIPine BESYLATE 10 MG TABLET (FP) PO SCH (11:00)
--- NOTE | 2018-05-18 11:16 | DS ---
Physical Exam: SUBJECTIVE: Patient seen and examined - no complaints. No active bleeding from AVF. No melena/hematochezia/hematemesis/hematuria. OBJECTIVE: Afebrile, Hemodynamically Stable. Vital Signs Period Temp Pulse Resp BP Sys/Mora Pulse Ox Last 24 Hr 98.1 F-98.7 F 72-92 18-20 118-180/83-121 95-99 PHYSICAL EXAM GENERAL: Awake, alert, and fully oriented, in no acute distress. Developmentally delayed, non-verbal, mits on hands HEAD: Normal with no signs of trauma. EYES: Pupils equal, round and reactive to light, extraocular movements intact, sclera anicteric, conjunctiva clear. EARS, NOSE, THROAT: No pharyngeal erythema/exudate NECK: Normal range of motion, supple without lymphadenopathy LUNGS: Breath sounds equal, clear to auscultation bilaterally. No wheezes, and no crackles. HEART: Regular rate and rhythm, normal S1 and S2. ABDOMEN: Soft, nontender, not distended, normoactive bowel sounds, no guarding. UPPER EXTREMITIES: In mits. LUE fistula bruit/thrill + LOWER EXTREMITIES: 2+ pulses, warm, well-perfused. No calf tenderness. No peripheral edema. In leg splints. NEUROLOGICAL: Moving all 4 extremities PSYCHIATRIC: Calm. Non-verbal. Unable to follow commands or communicate. LABS Laboratory Results - last 24 hr 05/17/18 05/17/18 05/17/18 12:20 13:20 13:20 WBC 4.2 RBC 1.95 L Hgb 5.9 L* Hct 17.4 L D MCV 89.3 MCH 30.3 MCHC 33.9 RDW 14.9 Plt Count 190 D MPV 8.6 D Absolute Neuts (auto) 2.4 Neutrophils % 58.5 Lymphocytes % 28.4 Monocytes % 9.9 Eosinophils % 2.4 Basophils % 0.8 Nucleated RBC % 0 PT with INR 10.80 INR 0.92 PTT (Actin FS) 30.6 Sodium 137 Potassium 4.2 Chloride 98 Carbon Dioxide 29 Anion Gap 10 BUN 35 H Creatinine 6.5 H Creat Clearance w eGFR 10.68 Random Glucose 117 H Calcium 8.8 Total Bilirubin 0.5 AST 14 L ALT 13 Alkaline Phosphatase 74 Total Protein 6.3 L Albumin 3.3 L Blood Type Antibody Screen Crossmatch 1205/17/18 05/18/18 13:20 13:38 07:45 WBC 4.4 RBC 2.82 L Hgb 8.5 L Hct 25.2 L D MCV 89.2 MCH 29.9 MCHC 33.6 RDW 14.1 Plt Count 173 MPV 7.6 D Absolute Neuts (auto) Neutrophils % Lymphocytes % Monocytes % Eosinophils % Basophils % Nucleated RBC % PT with INR INR PTT (Actin FS) Sodium Potassium Chloride Carbon Dioxide Anion Gap BUN Creatinine Creat Clearance w eGFR Random Glucose Calcium Total Bilirubin AST ALT Alkaline Phosphatase Total Protein Albumin Blood Type O POSITIVE O POSITIVE Antibody Screen Negative Crossmatch See Detail Date of Admission:05/17/18 Date of Discharge: 05/18/18 Minutes to complete discharge: 40 Discharge Summary Reason For Visit: ANEMIA,ESRD Current Active Problems Anemia (Acute) Hospital Course: 21 year old male with developmental delay/autism, non-verbal, Seizure Disorder, HTN, ESRD on HD (TTS, last HD 05/16), recommended by Stone Splitter for ED visit based on labs drawn 05/16 showing a Hb of 5. H/H in ED 5.9/17.4. He is asymptomatic except for lethargy reported by his mother. No signs of GI or blood loss. Recent presentation to ED 1 week ago for bleeding L AVF. Hemostasis was achieved in ED and he was discharged but H/H was not checked at that time. No further bleeding from AVF. He was transfused 2 units on HD overnight with repeat H/H 05/18 of 8.5/25.2. He is medically and hemodynamically stable for discharge on home medications. Case discussed with Dr Velasquez who agrees - patient scheduled rfor repeat H/H and HD on Sunday. 1. Acute Blood Loss Anemia sec to bleed for Left AV Fistula 1 week ago No further bleeding Hemodynamically stable. H/H 8.5/25.2 s/p transfusion of 2 units PRBCs on HD overnight. Discussed with Nephrology - medically stable for discharge in care of his mother. HD and O/P follow up arranged for next week. 2. HTN - normally on Hydralazine, Norvasc, Losartan, Labetalol - will continue on discharge. 3. Seizure Disorder - continue Divalproex, Lacosamide. Condition: Good - Instructions Diet, Activity, Other Instructions: Regular Diet. Hemodialysis and H/H check scheduled for Sunday by Dr. Vidales Referrals: Rani Velasquez MD [Primary Care Provider] - 1 Week Disposition: HOME - Home Medications Comprehensive Discharge Medication List: Ambulatory Orders Labetalol HCl [Normodyne -] 600 mg PO TID #90 tablet 10/09/17 Sevelamer Carbonate [Renvela -] 1,600 mg PO TIDCM #90 tab 10/09/17 Divalproex [Depakote -] 500 mg PO BID #60 tablet.ec 11/29/17 Amlodipine Besylate [Norvasc -] 10 mg PO BID 05/18/18 Hydralazine HCl 100 mg PO TID 05/18/18 Lacosamide [Vimpat -] 100 mg PO BID 05/18/18 Losartan Potassium [Cozaar] 100 mg PO DAILY 05/18/18 Problem List - Problems (1) Acute renal failure Code(s): N17.9 - ACUTE KIDNEY FAILURE, UNSPECIFIED Qualifiers: Acute renal failure type: unspecified Qualified Code(s): N17.9 - Acute kidney failure, unspecified This patient is new to me today: No Emergency Visit: Yes ED Registration Date: 05/17/18 Care time: The patient presented to the Emergency Department on the above date and was hospitalized for further evaluation of their emergent condition. Critical Care patient: No - Discharge Referral Referred to [facility] Med [facility] No
[2018-05-18] MEDS: amLODIPine BESYLATE 10 MG TABLET (FP) PO SCH (11:18)
[2018-05-18] MEDS ORDERED: LOSARTAN POTASSIUM 50 MG TABLET (FP) PO SCH (11:27)
[2018-05-18 13:28] VITALS: BP 146/83; PULSE 76
[2018-05-18] MEDS ORDERED: hydrALAZINE HCL 50 MG TABLET (FP) PO SCH (14:00)
[2018-05-18 18:51] VITALS: TEMP 97.2
[2018-05-22 14:15] LABS: HBSAG SCREEN Negative (Negative); HEP A AB, IGM Negative (Negative); HEP B CORE AB, TOT Negative (Negative)
== END 2018-05-18 13:57 | disposition home or self-care (01) ==
LOC: JER 12:02 → JERBED 15:12 → J5S 22:18
PROC: 30233N1 Transfusion of Nonautologous Red Blood Cells into Peripheral Vein, Percutaneous Approach (ICD-10-PCS; principal; 2018-05-17)
PROC: 3E033GC Introduction of Other Therapeutic Substance into Peripheral Vein, Percutaneous Approach (ICD-10-PCS; 2018-05-17)
DX: D62 Acute posthemorrhagic anemia (principal); E11.22 Type 2 diabetes mellitus with diabetic chronic kidney disease; N18.6 End stage renal disease; Z99.2 Dependence on renal dialysis; N17.9 Acute kidney failure, unspecified; G40.909 Epilepsy, unspecified, not intractable, without status epilepticus; I35.1 Nonrheumatic aortic (valve) insufficiency; F84.0 Autistic disorder
CPT/HCPCS: 36415; 36430; 36511; 71045-TC-FY; 80053; 85025; 85027; 85610; 85730; 86704; 86706; 86708; 86803; 86850; 86900; 86901; 86922; 87340; 93005; 93010; 96374; 99285-25; G0378; J0885; P9038; P9058

== ENCOUNTER 2018-09-02 07:40 | Inpatient (IN) | payer OTHER, BC ==
--- NOTE | 2018-09-02 07:48 | PDOC ---
History of Present Illness - General Chief Complaint: SIRS, Suspected/Possible Stated Complaint: FEVER Time Seen by Provider: 09/02/18 07:47 - History of Present Illness Initial Comments: 23 year old male with developmental delay/autism, non-verbal, Seizure Disorder, HTN, ESRD on HD (TTS, last HD 08/31), and recent admission for anemia (4 months prior) presenting with SOB, tachcyardia, tachypnea, and skin pallor. According to his mother at bedside, he has been more short of breath since the previous evening and has looked very pale. She also notes that he felt very warm to touch and has been scratching his let AVF site. She is worried that the created an infection at his AVF site. She denies nausea, vomiting, diarrhea or other symptoms. Of note, she states he had similar symptoms a year or greg ago and was intubated while he was treated for pneumonia. 09/02/18 07:50 Past History - Past Medical History Allergies/Adverse Reactions: Allergies Allergy/AdvReac Type Severity Reaction Status Date / Time cefprozil [From Cefzil] Allergy Intermediate Rash Verified 05/17/18 12:11 Home Medications: Ambulatory Orders Labetalol HCl [Normodyne -] 600 mg PO TID #90 tablet 10/09/17 Amlodipine Besylate [Norvasc -] 10 mg PO BID 05/18/18 Hydralazine HCl 100 mg PO TID 05/18/18 Lacosamide [Vimpat -] 100 mg PO BID 05/18/18 Losartan Potassium [Cozaar] 100 mg PO DAILY 05/18/18 Divalproex [Depakote -] 500 mg PO BID 09/02/18 LORazepam [Ativan] 4 mg PO ASDIR 09/02/18 Sevelamer Carbonate [Renvela -] 2,400 mg PO TIDCM 09/02/18 Asthma: No Cancer: No Cardiac Disorders: No CVA: No COPD: No CHF: No DVT: No Dementia: No Diabetes: No Dialysis: Yes GI Disorders: No Disorders: Yes (acute renal failure) HTN: Yes Liver Disease: No Seizures: Yes (SEIZURES) Thyroid Disease: No - Surgical History Abdominal Surgery: Yes (yogesh inguinal surgery) - Immunization History Td Vaccination: No - Suicide/Smoking/Psychosocial Hx Smoking Status: No Smoking History: Never smoked Years of Tobacco Use: 0 Have you smoked in the past 12 months: No Number of Cigarettes Smoked Daily: 0 Cigars Per Day: 0 Hx Alcohol Use: No Drug/Substance Use Hx: No Substance Use Type: None Hx Substance Use Treatment: No Review of Systems - Review of Systems Able to Perform ROS?: No (Patient has MRBienvenido ) *Physical Exam - Physical Exam General Appearance: Yes: Nourished, Appropriately Dressed, Apparent Distress, Mild Distress HEENT: positive: EOMI, ZARINA. negative: Normal ENT Inspection (slightly mishappened forehead structure) Neck: positive: Trachea midline, Normal Thyroid, Supple. negative: Tender, Rigid Respiratory/Chest: positive: Respiratory Distress, Accessory Muscle Use, Labored Respiration, Rapid RR, Rhonchi. negative: Chest Tender, Lungs Clear ( upper aiway sound tramission but right lung slightly more rhonchorous then the left.), Normal Breath Sounds Cardiovascular: positive: Regular Rhythm, Tachycardia. negative: Regular Rate Gastrointestinal/Abdominal: positive: Flat, Soft. negative: Tender Lymphatic: negative: Adenopathy, Tenderness Musculoskeletal: positive: Normal Inspection. negative: Decreased Range of Motion Extremity: positive: Normal Capillary Refill, Normal Inspection, Normal Range of Motion. negative: Tender Integumentary: positive: Dry, Warm, Pale. negative: Normal Color Neurologic: positive: Alert, Normal Mood/Affect, Normal Response. negative: Fully Oriented, Motor Strength 5/5 ED Treatment Course - LABORATORY CBC & Chemistry Diagram: 09/02/18 21:30 09/02/18 21:30 Medical Decision Making - Medical Decision Making 23 year old male with history of developmental delay presenting with respiratory distress and slightly more lethargic than usual. Patient was also hypoxic on admission to the 60s on RA but was immediately placed on non- rebreather with improvement to the low 90s and subsequently switched to BiPAP because of increased WOB. Patient was also febrile to 102 and tachycardic to low 100s. Overall we suspected sepsis which we believe is secondary to pneumonia given cxr showing right sided diffuse infiltrates. Unfortunately, the patient also had an elevated potassium to 6.5 for which we gave calcium gluconate, sodium bicarb, Lasix 40 IV (patient still makes urine), insulin 5 IV , d50 amp, albuterol nebs, and kayexalate. Patient's EKG demonstrated rate 101, MO 186, QTc 513, QRS 136, normal axis, RBBB, and peaked twaves without ST or twave elevations. Patient improved greatly on bipap with but with continued increase WOB. He was admitted tothe ICU after discussing with Dr. Michelle and the ICU team. Case was also discussed with Dr. Velasquez and he agred that the patient needed to be dialyzed today preferably. 09/02/18 13:27 Patient was noted to ave very brief seizure activity by the patient home care associate for which he was given two of ativan IV along with IV valproic acid and IM depakote at his home dose levels as he missed his morning meds prior to coming to the ED. ICU team was notified as they were downstairs in the ED. Patient returned to his baseline and no furher issues were noted. 09/02/18 16:27 Repeat labs were obtained and patient was noted to have sligtl increased potassium at 6.9. I discussed this with the ICU resident (Dr. Barraza) and I assisted him with management of the patient by placing orders to help treat his hyperkalemia including lasix 40 IV, insulin, glucose, and aluterol nebs. He was transferred to the ICU soon after being given these medications. 09/02/18 18:27 *DC/Admit/Observation/Transfer Diagnosis at time of Disposition: Tachypnea, Hyperkalemia, Sepsis due to pneumonia - Discharge Dispostion Condition at time of disposition: Stable Decision to Admit order: Yes - Referrals - Patient Instructions - Post Discharge Activity
[2018-09-02] MEDS ORDERED: VANCOMYCIN 1 GM in D5W (PRE-DOCKED) 1,000 MG/250 ML IVPB ONE (08:20)
[2018-09-02] MEDS ORDERED: VANCOMYCIN 1 GRAM (PRE-DOCKED) 1,000 MG/250 ML BAG IVPB ONE (08:51)
[2018-09-02 09:00] LABS: BASO % 0.3 % (0-2.0); HEMATOCRIT 34.2 % (35.4-49); HEMOGLOBIN 11.4 GM/dL (11.7-16.9); LYMPH % 9.3 % (8-40); MCH 31.1 pg (25.7-33.7); MCHC 33.4 g/dl (32.0-35.9); MEAN CELL VOLUME 93.2 fl (80-96); MEAN PLT VOLUME 8.8 fl (7.5-11.1); MONO % 10.5 % (3.8-10.2); NEUT % 79.9 % (42.8-82.8); PLATELET COUNT 120 K/MM3 (134-434); RBC 3.67 M/mm3 (4.00-5.60); RDW 14.1 % (11.9-15.9); WHITE BLOOD COUNT 4.6 K/mm3 (4.0-10.0)
[2018-09-02 09:04] LABS: ARTERIAL BLD GAS O2 SATURATION 92.5 % (95-98); ARTERIAL BLOOD GAS BASE EXCESS -0.7 meq/l (-2-2); ARTERIAL BLOOD GAS PCO2 35.9 mmHg (35-45); ARTERIAL BLOOD GAS PO2 68.4 mmHg (80-105); ARTERIAL BLOOD GAS pH 7.42 (7.35-7.45)
[2018-09-02 09:09] LABS: ALLENS TEST POSITIVE; CARBOXYHEMOGLOBIN 1.9 % (0-2)
[2018-09-02 09:10] LABS: VENOUS PC02 48.3 mmHg (41-51); VENOUS PH 7.33 (7.31-7.41); VENOUS PO2 37.4 mmHg (30-40)
[2018-09-02] MEDS ORDERED: ACETAMINOPHEN 1000 MG/100 ML VIAL (NON FORMULARY) IVPB ONE ×2 (09:12→16:59)
[2018-09-02] MEDS ORDERED: AZITHROMYCIN IVPB 500 MG in DEXTROSE 5%-WATER - 250 ML IVPB ONE (09:17)
[2018-09-02] MEDS ORDERED: AZTREONAM 1 GM in DEXTROSE 5%-WATER - 50 ML IVPB ONE (09:17)
[2018-09-02 09:44] LABS: ALK PHOS 53 U/L (45-117); ANION GAP 14 MMOL/L (8-16); BILIRUBIN,TOTAL 0.7 mg/dL (0.2-1); BLOOD UREA NITROGEN 86 mg/dL (7-18); CALCIUM 8.9 mg/dL (8.5-10.1); CHLORIDE 92 mmol/L (98-107); CO2 25 mmol/L (21-32); GLUCOSE,RANDOM 72 mg/dL (74-106); N-TERMINAL BNP 77015.8 pg/ml (5-125); SGOT/AST 14 U/L (15-37); SGPT/ALT 9 U/L (13-61); SODIUM 131 mmol/L (136-145); TOT PROT 6.3 g/dl (6.4-8.2)
[2018-09-02 09:45] LABS: EPI CELLS 1.4 /HPF (0-5); URINE APPEARANCE CLOUDY; URINE BACTERIA 4.4 /hpf (NEGATIVE); URINE BILIRUBIN NEGATIVE (NEGATIVE); URINE CASTS 15 /hpf (0-8); URINE COLOR YELLOW; URINE GLUCOSE (UA) TRACE (NEGATIVE); URINE KETONE NEGATIVE (NEGATIVE); URINE LEUK ESTERASE 1+ (NEGATIVE); URINE NITRITE NEGATIVE (NEGATIVE); URINE PROTEIN 3+ (NEGATIVE); URINE RBC 8 /hpf (0-4); URINE UROBILINOGEN 0.2 mg/dL (0.2-1.0); URINE WBC 119 /hpf (0-5)
[2018-09-02] MEDS ORDERED: CALCIUM GLUCONATE 10% - 1,000 MG/10 ML VIAL IVPUSH ONE ×2 (09:51→18:18)
[2018-09-02] MEDS ORDERED: CALCIUM GLUCONATE 10% - 1,000 MG/10 ML VIAL IVPB ONE (09:52)
[2018-09-02 09:59] LABS: CREATININE 11.7 mg/dL (0.55-1.3); POTASSIUM 6.6 mmol/L (3.5-5.1)
[2018-09-02] MEDS ORDERED: INSULIN REGULAR HUMAN 100 UNITS/ML *VIAL IVPUSH ONE ×3 (10:01→21:40)
[2018-09-02] MEDS ORDERED: DEXTROSE 50%-WATER - 25 GM/50 ML VIAL IVPUSH ONE ×3 (10:02→21:40)
[2018-09-02] MEDS ORDERED: FUROSEMIDE 40 MG/4 ML INJECTABLE VIAL IVPUSH ONE ×2 (10:06→18:16)
[2018-09-02] MEDS ORDERED: ALBUTEROL SO4 0.083% IH SOL 2.5 MG/3 ML VIAL.NEB. NEB ONE ×3 (10:37→18:28)
[2018-09-02] MEDS ORDERED: CALCIUM GLUCONATE 10% - 1,000 MG/10 ML VIAL ONE ×2 (10:37→18:28)
[2018-09-02] MEDS ORDERED: ACETAMINOPHEN INJECTION 100 ML IVPB ONE ×2 (10:37→16:59)
[2018-09-02] MEDS ORDERED: AZITHROMYCIN IVPB 500 MG/250 ML BAG IVPB ONE (10:37)
[2018-09-02] MEDS ORDERED: DEXTROSE 50%-WATER - 25 GM/50 ML VIAL ONE ×3 (10:37→18:28)
[2018-09-02] MEDS ORDERED: SODIUM POLYSTYRENE SULFONATE 15 GM/60 ML BOTTLE ONE ×2 (10:37→10:42)
[2018-09-02] MEDS ORDERED: INSULIN REGULAR HUMAN 100 UNITS/ML *VIAL ONE ×2 (10:38→18:29)
[2018-09-02] MEDS ORDERED: FUROSEMIDE 40 MG/4 ML INJECTABLE VIAL ONE ×2 (10:38→18:28)
[2018-09-02] MEDS: ALBUTEROL SO4 0.083% IH SOL 2.5 MG/3 ML VIAL.NEB. NEB SCH ×8 (10:45→18:53)
[2018-09-02] MEDS ORDERED: SODIUM POLYSTYRENE SULFONATE 15 GM/60 ML BOTTLE PO ONE (10:45)
[2018-09-02 11:08] LABS: INR 1.19 (0.83-1.09); PROTHROMBIN TIME (PATIENT) 14.1 SEC (9.7-13.0)
[2018-09-02 11:10] LABS: ACTIVATED PTT 35.9 SECONDS (25.2-36.5)
--- NOTE | 2018-09-02 11:17 | PDOC ---
Attending Attestation - Resident Resident Name: Shy Raya - ED Attending Attestation I have performed the following: I have examined & evaluated the patient, The case was reviewed & discussed with the resident, I agree w/resident's findings & plan, Exceptions are as noted - HPI HPI: 09/02/18 11:13 agree with resident hpi - Physicial Exam PE: 09/02/18 11:13 agree with resident exam - Critical Care Time Total Critical Care Time: 30 Critical Care Statement: The care of this patient involved high complexity decision making to prevent further life threatening deterioration of the patient 's condition and/or to evaluate & treat vital organ system(s) failure or risk of failure. - Medical Decision Making 09/02/18 11:12 23yo M hx autism, MR, ESRD on HD (2/2 HTN) presents to the ED with lethargy, fever found to be hypoxic, febrile, tachycardic, tachyneic. Pt with crackles on the R and erythema/warmth over LUE fistula. Given tachypnea, hypoxia and increased WOB, pt placed on bipap. W/u so far with diffuse R airspace infiltrates consistent with PNA, also +UA. Concern also for cellulitis overlying LUE fistula. Pt covered empirically with vanc, aztreonem, and azithro. In addition, pt hyperkalemic to 6.2, and has EKG changes. Pt treated with calcium gluconate, bicarb, lasix, d50 and insulin. Case discussed with Dr. Velasquez (is due for HD today) Will admit to ICU. 09/02/18 11:[address] Michelle/ICU Rpt ABG on bipap with improved oxygenation, much better mentation Case discussed in detail with admitting physician including history, physical exam and ancillary studies. Admitting physician has assumed care for the patient, will follow all pending diagnostics and will complete the evaluation and treatment.
[2018-09-02 11:52] LABS: ARTERIAL BLD GAS O2 SATURATION 97.9 % (95-98); ARTERIAL BLOOD GAS BASE EXCESS -2.2 meq/l (-2-2); ARTERIAL BLOOD GAS PCO2 36.8 mmHg (35-45); ARTERIAL BLOOD GAS PO2 118 mmHg (80-105); ARTERIAL BLOOD GAS pH 7.39 (7.35-7.45)
[2018-09-02 11:55] LABS: ALLENS TEST POSITIVE
--- NOTE | 2018-09-02 12:17 | CONSULT ---
Consultation: REQUESTING PROVIDER: Dr. Raya CONSULT REQUEST: We have been asked to medically evaluate this patient for ICU admission. HISTORY OF PRESENT ILLNESS: The patient is a 23 yo m w/ PMH Autism, developmental delay, seizure disorder, HTN, ESRD on HD (//) who was brought into the ed from home due to a 2 day history of increased lethargy and SOB. The patient is nonverbal at baseline and the history was obtained from the patient's mother at bedside. The patient was at his fathers house and was noted to be excessively sleepy and lethargic. Upon arrival home with his mother, he continued to be lethargic and developed SOB, which prompted his mother to bring him in for evaluation. In the ED, he was noted to be using accessory muscles to breathe and was also found to be tachycardic, hypoxic and febrile to 101.8. He was also found to have a potassium of 6.6, a BUN of 86 and creatinine of 11.7. CXR showed infiltrate in the right lung with a clear left lung. The patient had his last HD on Sunday and completed the full course without issue. No sick contacts. No subjective fevers or chills at home. The patient was admitted to [facility] approx. 1 year ago for similar ssx and was admitted to the ICU at that time. REVIEW OF SYSTEMS: CONSTITUTIONAL: Absent: fever, chills, diaphoresis, generalized weakness, malaise, loss of appetite, weight change HEENT: Absent: rhinorrhea, nasal congestion, throat pain, throat swelling, difficulty swallowing, mouth swelling, ear pain, eye pain, visual changes CARDIOVASCULAR: Absent: chest pain, syncope, palpitations, irregular heart rate, lightheadedness , peripheral edema RESPIRATORY: Absent: cough, orthopnea, wheezing, stridor, hemoptysis GASTROINTESTINAL: Absent: abdominal pain, abdominal distension, nausea, vomiting, diarrhea, constipation, melena, hematochezia GENITOURINARY: Absent: dysuria, frequency, urgency, hesitancy, hematuria, flank pain, genital pain MUSCULOSKELETAL: Absent: myalgia, arthralgia, joint swelling, back pain, neck pain SKIN: Absent: rash, itching, pallor HEMATOLOGIC/IMMUNOLOGIC: Absent: easy bleeding, easy bruising, lymphadenopathy, frequent infections ENDOCRINE: Absent: unexplained weight gain, unexplained weight loss, heat intolerance, cold intolerance NEUROLOGIC: Absent: headache, focal weakness or paresthesias, dizziness, unsteady gait, seizure, mental status changes, bladder or bowel incontinence PSYCHIATRIC: Absent: anxiety, depression, suicidal or homicidal ideation, hallucinations. PHYSICAL EXAMINATION Vital Signs - 24 hr 09/02/18 09/02/18 09/02/18 07:40 08:45 11:30 Temperature 101.8 F H Pulse Rate 91 H Pulse Rate [ Left Radial] Respiratory 24 H Rate Blood Pressure 127/70 Blood Pressure [Left Arm] O2 Sat by Pulse 72 L 95 99 Oximetry (%) 09/02/18 12:10 Temperature 103.1 F H Pulse Rate Pulse Rate [ 101 H Left Radial] Respiratory 25 H Rate Blood Pressure Blood Pressure 136/67 [Left Arm] O2 Sat by Pulse 100 Oximetry (%) GENERAL: Lethargic, easily rousable to voice HEAD: Normal with no signs of trauma. EYES: Pupils equal, round and reactive to light, extraocular movements intact, sclera anicteric, conjunctiva clear. No lid lag. EARS, NOSE, THROAT: unable to assess, patient on NIPPV NECK: Normal range of motion, supple without lymphadenopathy, JVD, or masses. LUNGS: Patiently overtly SOB, coarse rales heard b/l. HEART: Regular rate and rhythm, normal S1 and S2 without murmur, rub or gallop. ABDOMEN: Soft, nontender, not distended, normoactive bowel sounds, no guarding, no rebound, no masses. No hepatomegaly or splenomegaly. LOWER EXTREMITIES: 2+ pulses, warm, well-perfused. No calf tenderness. No peripheral edema. NEUROLOGICAL: Cranial nerves II-X intact. SKIN: Warm, dry, normal turgor, no rashes or lesions noted. Laboratory Results - last 24 hr 09/02/18 09/02/18 09/02/18 08:30 08:30 08:30 WBC 4.6 RBC 3.67 L Hgb 11.4 L Hct 34.2 L D MCV 93.2 MCH 31.1 MCHC 33.4 RDW 14.1 Plt Count 120 L D MPV 8.8 D Absolute Neuts (auto) 3.6 Neutrophils % 79.9 D Lymphocytes % 9.3 D Monocytes % 10.5 H Eosinophils % 0.0 D Basophils % 0.3 Nucleated RBC % 0 PT with INR INR PTT (Actin FS) Anticoagulation Therapy Puncture Site ABG pH ABG pCO2 at Pt Temp ABG pO2 at Pt Temp ABG HCO3 ABG O2 Sat (Measured) ABG O2 Content ABG Base Excess Wisam Test VBG pH 7.33 POC VBG pCO2 48.3 POC VBG pO2 37.4 VBG HCO3 25.0 VBG O2 Sat (Pierre) 59.9 L VBG Base Excess -0.7 Carboxyhemoglobin Methemoglobin O2 Delivery Device Oxygen Flow Rate Vent Mode Vent Rate Mechanical Rate Pressure Support Vent Sodium 131 L Potassium 6.6 H* Chloride 92 L Carbon Dioxide 25 Anion Gap 14 BUN 86 H Creatinine 11.7 H* Creat Clearance w eGFR 5.37 Random Glucose 72 L Lactic Acid Calcium 8.9 Total Bilirubin 0.7 AST 14 L ALT 9 L Alkaline Phosphatase 53 Troponin I 0.56 H B-Natriuretic Peptide 18810.8 H Total Protein 6.3 L Albumin 3.0 L Urine Color Urine Appearance Urine pH Ur Specific [place] Urine Protein Urine Glucose (UA) Urine Ketones Urine Blood Urine Nitrite Urine Bilirubin Urine Urobilinogen Ur Leukocyte Esterase Urine WBC (Auto) Urine RBC (Auto) Urine Casts (Auto) U Pathogenic Cast Auto U Epithel Cells (Auto) Urine Bacteria (Auto) Influenza A (Rapid) Influenza B (Rapid) 09/02/18 09/02/18 09/02/18 08:30 08:40 08:43 WBC RBC Hgb Hct MCV MCH MCHC RDW Plt Count MPV Absolute Neuts (auto) Neutrophils % Lymphocytes % Monocytes % Eosinophils % Basophils % Nucleated RBC % PT with INR INR PTT (Actin FS) Anticoagulation Therapy No Result Required. Puncture Site Right radial ABG pH 7.42 ABG pCO2 at Pt Temp 35.9 ABG pO2 at Pt Temp 68.4 L ABG HCO3 22.8 ABG O2 Sat (Measured) 92.5 L ABG O2 Content 16.8 ABG Base Excess -0.7 Wisam Test Positive VBG pH POC VBG pCO2 POC VBG pO2 VBG HCO3 VBG O2 Sat (Pierre) VBG Base Excess Carboxyhemoglobin 1.9 Methemoglobin 0.7 O2 Delivery Device No Result Required. Oxygen Flow Rate Yes Vent Mode No Result Required. Vent Rate No Result Required. Mechanical Rate No Result Required. Pressure Support Vent No Result Required. Sodium Potassium Chloride Carbon Dioxide Anion Gap BUN Creatinine Creat Clearance w eGFR Random Glucose Lactic Acid 2.2 H* Calcium Total Bilirubin AST ALT Alkaline Phosphatase Troponin I B-Natriuretic Peptide Total Protein Albumin Urine Color Yellow Urine Appearance Cloudy Urine pH 8.0 Ur Specific [place] 1.016 Urine Protein 3+ H Urine Glucose (UA) Trace Urine Ketones Negative Urine Blood Negative Urine Nitrite Negative Urine Bilirubin Negative Urine Urobilinogen 0.2 Ur Leukocyte Esterase 1+ H Urine WBC (Auto) 119 Urine RBC (Auto) 8 Urine Casts (Auto) 15 U Pathogenic Cast Auto None seen U Epithel Cells (Auto) 1.4 Urine Bacteria (Auto) 4.4 Influenza A (Rapid) Influenza B (Rapid) 09/02/18 09/02/18 09/02/18 10:08 10:08 11:10 WBC RBC Hgb Hct MCV MCH MCHC RDW Plt Count MPV Absolute Neuts (auto) Neutrophils % Lymphocytes % Monocytes % Eosinophils % Basophils % Nucleated RBC % PT with INR 14.10 H INR 1.19 H PTT (Actin FS) 35.9 Anticoagulation Therapy No Result Required. Puncture Site Right radial ABG pH 7.39 ABG pCO2 at Pt Temp 36.8 ABG pO2 at Pt Temp 118 H ABG HCO3 21.9 L ABG O2 Sat (Measured) 97.9 ABG O2 Content 13.3 L ABG Base Excess -2.2 L Wisam Test Positive VBG pH POC VBG pCO2 POC VBG pO2 VBG HCO3 VBG O2 Sat (Pierre) VBG Base Excess Carboxyhemoglobin Methemoglobin O2 Delivery Device No Result Required. Oxygen Flow Rate Yes Vent Mode No Result Required. Vent Rate No Result Required. Mechanical Rate No Result Required. Pressure Support Vent No Result Required. Sodium Potassium Chloride Carbon Dioxide Anion Gap BUN Creatinine Creat Clearance w eGFR Random Glucose Lactic Acid Calcium Total Bilirubin AST ALT Alkaline Phosphatase Troponin I B-Natriuretic Peptide Total Protein Albumin Urine Color Urine Appearance Urine pH Ur Specific [place] Urine Protein Urine Glucose (UA) Urine Ketones Urine Blood Urine Nitrite Urine Bilirubin Urine Urobilinogen Ur Leukocyte Esterase Urine WBC (Auto) Urine RBC (Auto) Urine Casts (Auto) U Pathogenic Cast Auto U Epithel Cells (Auto) Urine Bacteria (Auto) Influenza A (Rapid) Negative Influenza B (Rapid) Negative Active Medications Generic Name Dose Route Start Last Admin Trade Name Freq PRN Reason Stop Dose Admin Chlorhexidine Gluconate 1 applic 09/02/18 22:00 Hibiclens For Decolonization - TP HS LANE Heparin Sodium (Porcine) 5,000 unit 09/02/18 18:00 Heparin - SQ Q8H-IV LANE Mupirocin 1 applic 09/02/18 22:00 Bactroban Ointment (For Decolonization) - NS 09/07/18 21:[address] ASSESSMENT/PLAN: The patient is a 23 yo m w/ PMH Autism, developmental delay, seizure disorder, HTN, ESRD on HD (//) who was brought into the ed from home due to a 2 day history of increased lethargy and SOB. #Neuro -decreased level of consciousness likely 2/2 infectious process -no focal neuro deficits #Pulmonary -CXR shows R Lung whiteout, likely aspiration PNA -ID consulted -s/p Azithro, Aztreonam in ED -further ABX mgmt per ID -tylenol PRN fever #Cardiac -EKG w/ Peaked T waves likely 2/2 hyperkalemia, discussed below #Renal -Nephro consulted -for HD today -Hyperkalemic in ED, s/p Calcium Gluconate, Insulin, D50 and kayexalate. #FEN -no fluids indicated -monitor lytes as discussed above -NPO while on NIPPV #Prophy - Heparin 5k units SQ TID #dispo -Admit to ICU Dispo: We will continue to follow the patient. Thank you for this consultative opportunity. Visit type - Emergency Visit Emergency Visit: Yes ED Registration Date: 09/02/18 Care time: The patient presented to the Emergency Department on the above date and was hospitalized for further evaluation of their emergent condition. - New Patient This patient is new to me today: Yes Date on this admission: 09/02/18 - Critical Care Critical Care patient: Yes Total Critical Care Time (in minutes): 40 Critical Care Statement: The care of this patient involved high complexity decision making to prevent further life threatening deterioration of the patient 's condition and/or to evaluate & treat vital organ system(s) failure or risk of failure.
--- NOTE | 2018-09-02 13:33 | PN ---
Teaching Attending Note Name of Resident: David Barraza ATTENDING PHYSICIAN STATEMENT I saw and evaluated the patient. I reviewed the resident's note and discussed the case with the resident. I agree with the resident's findings and plan as documented. SUBJECTIVE: Patient seen and examined in the ER. Well known to me from multiple previous admissions. ESRD on HD, autism, developmental delay, seizure disorder, HTN, pleural effusions that previously required CT decompression. Admitted via the ER for Acute Hypoxemic Respiratory Failure due to CAP versus Aspiration Pneumonitis. No travel history or sick contacts. Required intervention with NIPPV due to hypoxemia. EKG with apparent peaked T waves due to HyperKalemia (Not available for my review) Intake & Output 08/30/18 08/31/18 09/01/18 09/02/18 23:59 23:59 23:59 23:59 Weight 150 lb Last Vital Signs Temp Pulse Resp BP Pulse Ox 102.8 F H 97 H 33 H 136/67 99 09/02/18 12:40 09/02/18 12:40 09/02/18 12:40 09/02/18 12:10 09/02/18 12:40 Active Medications Chlorhexidine Gluconate (Hibiclens For Decolonization -) [address] L[address] Heparin Sodium (Porcine) (Heparin -) 5,[address] Mupirocin (Bactroban Ointment (For Decolonization) -) [address] LANE Stop: 09/07/18 21:59 GENERAL: Mildly tachypneic on NIPPV support HEAD: Normal with no signs of trauma. EYES: Pupils equal, round and reactive to light, extraocular movements intact, sclera anicteric, conjunctiva clear. No lid lag. EARS, NOSE, THROAT: Ears normal, nares patent, oropharynx clear without exudates. Moist mucous membranes. NECK: Normal range of motion, supple without lymphadenopathy, JVD, or masses. LUNGS: Coarse rhonchi right, NIPPV support HEART: Regular rate and rhythm, normal S1 and S2 without murmur, rub or gallop. ABDOMEN: Soft, nontender, not distended, normoactive bowel sounds, no guarding, no rebound, no masses. No hepatomegaly or splenomegaly. MUSCULOSKELETAL: Normal range of motion at all joints. No bony deformities or tenderness. No CVA tenderness. UPPER EXTREMITIES: 2+ pulses, warm, well-perfused. No cyanosis. No clubbing. Cap refill <2 seconds. No peripheral edema. LOWER EXTREMITIES: 2+ pulses, warm, well-perfused. No calf tenderness. No peripheral edema. NEUROLOGICAL: Non-focal SKIN: erythema at the access site Laboratory Results - last 24 hr 09/02/18 09/02/18 09/02/18 08:30 08:30 08:30 WBC 4.6 RBC 3.67 L Hgb 11.4 L Hct 34.2 L D MCV 93.2 MCH 31.1 MCHC 33.4 RDW 14.1 Plt Count 120 L D MPV 8.8 D Absolute Neuts (auto) 3.6 Neutrophils % 79.9 D Lymphocytes % 9.3 D Monocytes % 10.5 H Eosinophils % 0.0 D Basophils % 0.3 Nucleated RBC % 0 PT with INR INR PTT (Actin FS) Anticoagulation Therapy Puncture Site ABG pH ABG pCO2 at Pt Temp ABG pO2 at Pt Temp ABG HCO3 ABG O2 Sat (Measured) ABG O2 Content ABG Base Excess Wisam Test VBG pH 7.33 POC VBG pCO2 48.3 POC VBG pO2 37.4 VBG HCO3 25.0 VBG O2 Sat (Pierre) 59.9 L VBG Base Excess -0.7 Carboxyhemoglobin Methemoglobin O2 Delivery Device Oxygen Flow Rate Vent Mode Vent Rate Mechanical Rate Pressure Support Vent Sodium 131 L Potassium 6.6 H* Chloride 92 L Carbon Dioxide 25 Anion Gap 14 BUN 86 H Creatinine 11.7 H* Creat Clearance w eGFR 5.37 Random Glucose 72 L Lactic Acid Calcium 8.9 Total Bilirubin 0.7 AST 14 L ALT 9 L Alkaline Phosphatase 53 Troponin I 0.56 H B-Natriuretic Peptide 59097.8 H Total Protein 6.3 L Albumin 3.0 L Urine Color Urine Appearance Urine pH Ur Specific Bicknell Urine Protein Urine Glucose (UA) Urine Ketones Urine Blood Urine Nitrite Urine Bilirubin Urine Urobilinogen Ur Leukocyte Esterase Urine WBC (Auto) Urine RBC (Auto) Urine Casts (Auto) U Pathogenic Cast Auto U Epithel Cells (Auto) Urine Bacteria (Auto) Influenza A (Rapid) Influenza B (Rapid) 09/02/18 09/02/18 09/02/18 08:30 08:40 08:43 WBC RBC Hgb Hct MCV MCH MCHC RDW Plt Count MPV Absolute Neuts (auto) Neutrophils % Lymphocytes % Monocytes % Eosinophils % Basophils % Nucleated RBC % PT with INR INR PTT (Actin FS) Anticoagulation Therapy No Result Required. Puncture Site Right radial ABG pH 7.42 ABG pCO2 at Pt Temp 35.9 ABG pO2 at Pt Temp 68.4 L ABG HCO3 22.8 ABG O2 Sat (Measured) 92.5 L ABG O2 Content 16.8 ABG Base Excess -0.7 Wisam Test Positive VBG pH POC VBG pCO2 POC VBG pO2 VBG HCO3 VBG O2 Sat (Pierre) VBG Base Excess Carboxyhemoglobin 1.9 Methemoglobin 0.7 O2 Delivery Device No Result Required. Oxygen Flow Rate Yes Vent Mode No Result Required. Vent Rate No Result Required. Mechanical Rate No Result Required. Pressure Support Vent No Result Required. Sodium Potassium Chloride Carbon Dioxide Anion Gap BUN Creatinine Creat Clearance w eGFR Random Glucose Lactic Acid 2.2 H* Calcium Total Bilirubin AST ALT Alkaline Phosphatase Troponin I B-Natriuretic Peptide Total Protein Albumin Urine Color Yellow Urine Appearance Cloudy Urine pH 8.0 Ur Specific Bicknell 1.016 Urine Protein 3+ H Urine Glucose (UA) Trace Urine Ketones Negative Urine Blood Negative Urine Nitrite Negative Urine Bilirubin Negative Urine Urobilinogen 0.2 Ur Leukocyte Esterase 1+ H Urine WBC (Auto) 119 Urine RBC (Auto) 8 Urine Casts (Auto) 15 U Pathogenic Cast Auto None seen U Epithel Cells (Auto) 1.4 Urine Bacteria (Auto) 4.4 Influenza A (Rapid) Influenza B (Rapid) 09/02/18 09/02/18 09/02/18 10:08 10:08 11:10 WBC RBC Hgb Hct MCV MCH MCHC RDW Plt Count MPV Absolute Neuts (auto) Neutrophils % Lymphocytes % Monocytes % Eosinophils % Basophils % Nucleated RBC % PT with INR 14.10 H INR 1.19 H PTT (Actin FS) 35.9 Anticoagulation Therapy No Result Required. Puncture Site Right radial ABG pH 7.39 ABG pCO2 at Pt Temp 36.8 ABG pO2 at Pt Temp 118 H ABG HCO3 21.9 L ABG O2 Sat (Measured) 97.9 ABG O2 Content 13.3 L ABG Base Excess -2.2 L Wisam Test Positive VBG pH POC VBG pCO2 POC VBG pO2 VBG HCO3 VBG O2 Sat (Pierre) VBG Base Excess Carboxyhemoglobin Methemoglobin O2 Delivery Device No Result Required. Oxygen Flow Rate Yes Vent Mode No Result Required. Vent Rate No Result Required. Mechanical Rate No Result Required. Pressure Support Vent No Result Required. Sodium Potassium Chloride Carbon Dioxide Anion Gap BUN Creatinine Creat Clearance w eGFR Random Glucose Lactic Acid Calcium Total Bilirubin AST ALT Alkaline Phosphatase Troponin I B-Natriuretic Peptide Total Protein Albumin Urine Color Urine Appearance Urine pH Ur Specific Bicknell Urine Protein Urine Glucose (UA) Urine Ketones Urine Blood Urine Nitrite Urine Bilirubin Urine Urobilinogen Ur Leukocyte Esterase Urine WBC (Auto) Urine RBC (Auto) Urine Casts (Auto) U Pathogenic Cast Auto U Epithel Cells (Auto) Urine Bacteria (Auto) Influenza A (Rapid) Negative Influenza B (Rapid) Negative Active Medications Generic Name Dose Route Start Last Admin Trade Name Freq PRN Reason Stop Dose Admin Chlorhexidine Gluconate 1 applic 09/02/18 22:00 Hibiclens For Decolonization - TP HS LANE Heparin Sodium (Porcine) 5,000 unit 09/02/18 18:00 Heparin - SQ Q8H-IV LANE Mupirocin 1 applic 09/02/18 22:00 Bactroban Ointment (For Decolonization) - NS 09/07/18 21:[address] ASSESSMENT/PLAN: Acute Respiratory Failure due to Right Multi-lobar PNA EKG changes likely due to HyperKalemia ID evaluation Aspiration precautions Rich-culture Daily Medrol 40mg HD per Renal Follow EKG Follow repeat Chemistry Low threshold for intubation: Can maintain on NIPPV for now Requires ICU monitoring for tenuous respiratory status and hyperaKalemia Dr Isidro Critical care time spent in reviewing chart, evaluating patient and formulating plan - 36 minutes.
--- NOTE | 2018-09-02 13:40 | CONSULT ---
Consult Consult Specialty:: Nephrology Reason for Consultation:: ESRD - History of Present Illness Chief Complaint: cough History of Present Illness: Pt is a 23 year old male with pmhx of ESRD, HTN, anemia, epilsepy and developmental delay. He is in on a TTS HD schedule. He was brought to the ER by his mother. She noticed that he was not acting like himself and he was tachycardic. He was found to have a PNA. Pt also has been having fevers. He was found to be hyperkalemic as well. He required bipap for hypoxia. He is not verbal and unable to give history. 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) Cardio/Vascular: Yes: HTN Pulmonary: Yes: Other (pleural effusion) Renal/: Yes: Renal Inusuff, Hemodialysis - Past Surgical History Past Surgical History: Yes: AV Fistula/Graft, Hernia Repair - Alcohol/Substance Use Hx Alcohol Use: No - Smoking History Smoking history: Never smoked Have you smoked in the past 12 months: No Aproximately how many cigarettes per day: 0 - Social History Usual Living Arrangement: With Parent Home Medications - Allergies Allergies/Adverse Reactions: Allergies Allergy/AdvReac Type Severity Reaction Status Date / Time cefprozil [From Cefzil] Allergy Intermediate Rash Verified 05/17/18 12:11 - Home Medications Home Medications: Ambulatory Orders Labetalol HCl [Normodyne -] 600 mg PO TID #90 tablet 10/09/17 Sevelamer Carbonate [Renvela -] 1,600 mg PO TIDCM #90 tab 10/09/17 Divalproex [Depakote -] 500 mg PO BID #60 tablet.ec 11/29/17 Amlodipine Besylate [Norvasc -] 10 mg PO BID 05/18/18 Hydralazine HCl 100 mg PO TID 05/18/18 Lacosamide [Vimpat -] 100 mg PO BID 05/18/18 Losartan Potassium [Cozaar] 100 mg PO DAILY 05/18/18 Family Disease History - Family Disease History Family Disease History: Other: Father (htn) Review of Systems Unable to obtain ROS, reason: pt not verbal - Review of Systems Constitutional: reports: Fever Cardiovascular: reports: Other (tachycardia) Neurological: reports: Pre-Existing Deficit Physical Exam Vital Signs: Vital Signs Temperature 102.8 F H 09/02/18 12:40 Pulse Rate 97 H 09/02/18 12:40 Respiratory Rate 33 H 09/02/18 12:40 Blood Pressure 136/67 09/02/18 12:10 O2 Sat by Pulse Oximetry (%) 99 09/02/18 12:40 Constitutional: Yes: Calm Eyes: Yes: Conjunctiva Clear HENT: Yes: Atraumatic Cardiovascular: Yes: Tachycardia, S1, S2 Respiratory: Yes: On BiPap Gastrointestinal: Yes: Soft Renal/: Yes: WNL Musculoskeletal: Yes: WNL Edema: No Integumentary: Yes: WNL Neurological: Yes: Pre-Existing Deficit Labs: CBC, BMP 09/02/18 08:30 09/02/18 08:30 Imaging - Results Chest X-ray: Report Reviewed Problem List - Problems (1) Anemia Code(s): D64.9 - ANEMIA, UNSPECIFIED (2) Hyperkalemia Code(s): E87.5 - HYPERKALEMIA (3) ESRD (end stage renal disease) Code(s): N18.6 - END STAGE RENAL DISEASE (4) Seizures Code(s): R56.9 - UNSPECIFIED CONVULSIONS Assessment/Plan Current Medications Generic Name Dose Route Start Last Admin Trade Name Freq PRN Reason Stop Dose Admin Chlorhexidine Gluconate 1 applic 09/02/18 22:00 Hibiclens For Decolonization - TP HS LANE Heparin Sodium (Porcine) 5,000 unit 09/02/18 14:00 Heparin - SQ TID LANE Mupirocin 1 applic 09/02/18 22:00 Bactroban Ointment (For Decolonization) - NS 09/07/18 21:[address] Impression 1. ESRD 2. autism 3. HTN 4. anemia 5. epilepsy 6. hx of pleural effusions 7. hyperkalemia 8. respiratory failure and hypoxia requiring bipap 9. PNA possible aspiration 19. sepsis Plan - will treat potassium medically while we arrange for HD - will dialyze at bedside pending bed - cont bipap - discussed with pulmonary/icu, they will see pt - will need abx and ID eval - monitor vitals - will follow - discussed plan with mother
[2018-09-02] MEDS ORDERED: SODIUM CHLORIDE 250 ML IV PRN (13:42)
--- NOTE | 2018-09-02 15:21 | EKG ---
Test Reason : Blood Pressure : / mmHG Vent. Rate : 101 BPM Atrial Rate : 101 BPM P-R Int : 186 ms QRS Dur : 136 ms QT Int : 396 ms P-R-T Axes : 046 250 046 degrees QTc Int : 513 ms SINUS TACHYCARDIA RIGHT BUNDLE BRANCH BLOCK ABNORMAL ECG WHEN COMPARED WITH ECG OF 17-MAY-2018 14:55, VENT. RATE HAS INCREASED Confirmed by SHAILESH RING MD ([id number]) on 09/02/2018 3:20:44 PM Referred By: Lor ARROYO Confirmed By:SHAILESH RING MD
--- NOTE | 2018-09-02 15:50 | CON.ID ---
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) Cardio/Vascular: Yes: HTN Pulmonary: Yes: Other (pleural effusion) Renal/: Yes: Renal Inusuff, Hemodialysis - Past Surgical History Past Surgical History: Yes: AV Fistula/Graft, Hernia Repair - Alcohol/Substance Use Hx Alcohol Use: No - Smoking History Smoking history: Never smoked Have you smoked in the past 12 months: No Aproximately how many cigarettes per day: 0 - Social History Usual Living Arrangement: With Parent Home Medications - Allergies Allergies/Adverse Reactions: Allergies Allergy/AdvReac Type Severity Reaction Status Date / Time cefprozil [From Cefzil] Allergy Intermediate Rash Verified 05/17/18 12:11 - Home Medications Home Medications: Ambulatory Orders Labetalol HCl [Normodyne -] 600 mg PO TID #90 tablet 10/09/17 Sevelamer Carbonate [Renvela -] 1,600 mg PO TIDCM #90 tab 10/09/17 Divalproex [Depakote -] 500 mg PO BID #60 tablet.ec 11/29/17 Amlodipine Besylate [Norvasc -] 10 mg PO BID 05/18/18 Hydralazine HCl 100 mg PO TID 05/18/18 Lacosamide [Vimpat -] 100 mg PO BID 05/18/18 Losartan Potassium [Cozaar] 100 mg PO DAILY 05/18/18 Family Disease History - Family Disease History Family Disease History: Other: Father (htn) Physical Exam Vital Signs: Vital Signs Temperature 102.8 F H 09/02/18 12:40 Pulse Rate 97 H 09/02/18 12:40 Respiratory Rate 33 H 09/02/18 12:40 Blood Pressure 136/67 09/02/18 12:10 O2 Sat by Pulse Oximetry (%) 99 09/02/18 12:40 Labs: CBC, BMP 09/02/18 08:30 09/02/18 08:30
[2018-09-02] MEDS ORDERED: HEPARIN NA (PORCINE) 5,000 UNITS/ML 1ML VIAL IVPUSH ONE (16:00)
[2018-09-02] MEDS ORDERED: CLINDAMYCIN 900 MG PREMIX IVPB 900 MG/50 ML BAG IVPB ONE ×2 (16:02→18:03)
--- NOTE | 2018-09-02 16:46 | PN ---
Progress Note (short form) - Note Progress Note: ID consult dictated imp/reccd 23 yo male with autism and esrd/hd admitted from home with lethargy and tachypnea he was fine at last HD on Thursday 08/31 family does not note any vomiting yesterday seemed tired today tachypneic and brought to ED found to be hypoxic with cxray with right sided infiltrate received vancomycin/azactam/zithromax in ED hypoxemic respiratory failure extensive right sided pneumonia esrd/hd ?CAP ?aspiration send urinary antigens, f/u cultures zosyn (has received zosyn in 2018 in the past without allergic reaction) cephalosporin allergy rash vanco "on board" check level in am hold further zithromax switch to doxycycline he will be admitted to ICU- may require intubation if he worsens pt seen in ED d/w family at bedside over 40 minutes spent in the care of this critically ill ICU patient Problem List - Problems (1) Acute hypoxemic respiratory failure Code(s): J96.01 - ACUTE RESPIRATORY FAILURE WITH HYPOXIA (2) Pneumonia Code(s): J18.9 - PNEUMONIA, UNSPECIFIED ORGANISM Qualifiers: Pneumonia type: due to unspecified organism Laterality: unspecified laterality Lung location: unspecified part of lung Qualified Code(s): J18.9 - Pneumonia, unspecified organism (3) ESRD (end stage renal disease) on dialysis Code(s): N18.6 - END STAGE RENAL DISEASE; Z99.2 - DEPENDENCE ON RENAL DIALYSIS (4) Allergy to antibiotic Code(s): Z88.1 - ALLERGY STATUS TO OTHER ANTIBIOTIC AGENTS STATUS
[2018-09-02] MEDS ORDERED: LORazepam 2 MG/ML SDV VIAL ONE (16:49)
[2018-09-02] MEDS ORDERED: VALPROATE SODIUM 500 MG/5 ML VIAL IVPB ONE (16:54)
[2018-09-02] MEDS ORDERED: Lacosamide 200 MG/20 ML VIAL IVPB ONE ×2 (16:54→16:59)
[2018-09-02] MEDS ORDERED: VALPROATE SODIUM 500 MG/5 ML VIAL ONE (16:59)
[2018-09-02] MEDS: HEPARIN NA (PORCINE) 5,000 UNITS/ML 1ML VIAL SQ SCH ×2 (17:00→22:00)
[2018-09-02] MEDS ORDERED: PIPERACILLIN/TAZOB 2.25 GM 2.25 GM in DEXTROSE 5%-WATER - 50 ML IVPB SCH (18:00)
[2018-09-02] MEDS ORDERED: HEPARIN NA (PORCINE) 5,000 UNITS/ML 1ML VIAL ONE (18:03)
[2018-09-02 18:12] LABS: ANION GAP 17 MMOL/L (8-16); BLOOD UREA NITROGEN 100 mg/dL (7-18); CALCIUM 8.4 mg/dL (8.5-10.1); CHLORIDE 94 mmol/L (98-107); CO2 23 mmol/L (21-32); GLUCOSE,RANDOM 72 mg/dL (74-106); MAGNESIUM 1.7 mg/dL (1.8-2.4); PHOSPHOROUS 4.8 mg/dL (2.5-4.9); SODIUM 133 mmol/L (136-145)
[2018-09-02 18:15] LABS: CREATININE 12.9 mg/dL (0.55-1.3); POTASSIUM 6.9 mmol/L (3.5-5.1)
[2018-09-02] MEDS ORDERED: PIPERACILLIN/TAZOB 2.25 GM 2.25 GM/50 ML BAG IVPB ONE (18:28)
[2018-09-02] MEDS ORDERED: fentaNYL CITRATE 250 MCG/5 ML VIAL ONE (19:27)
[2018-09-02] MEDS ORDERED: PROPOFOL 1,000,000 MCG/100 ML VIAL ONE (19:27)
[2018-09-02] MEDS ORDERED: MIDAZOLAM 100 MG/100 ML MG IVPB ONE (19:28)
[2018-09-02] MEDS ORDERED: RAPID SEQUENCE INTUBATION KIT NR ONE (19:29)
--- NOTE | 2018-09-02 19:44 | CONS ---
DATE OF CONSULTATION: DATE OF DICTATION: 09/02/2018 INFECTIOUS DISEASE CONSULTATION REQUESTING PHYSICIAN: Laina Michelle M.D. CONSULTING PHYSICIAN: Amarilys Billy M.D. HISTORY OF PRESENT ILLNESS: This is a 23-year-old man who we know from his prior admission in 2017 when he presented he was in hypertension and acute renal failure requiring dialysis. During that admission he developed pneumonia requiring left VATS and drainage of effusion. He was treated during that admission in August of 2017 with piperacillin/tazobactam. He has a history of rash as a baby to a CEPHALOSPORIN. He has a history of autism as well and lives at home with his family. He has been by family account doing well since the summer, since October, and he was last in the hospital in April for anemia, but he has been doing well from the standpoint of dialysis. They give him Ativan when they take him to dialysis and one of his parents stays with him for the entire session, and he goes 3 times a week. He last went to dialysis on the , and he was fine. On the , which was yesterday, they noted that he seemed to be somewhat fatigued. This morning he was noted to be extremely tachypneic, and he was brought by his mom to the emergency room, where he was noted to be extremely hypoxic and he is noted to have a large right sided infiltrate. They deny any episodes of vomiting. They say he has been well. They deny any recent coughs or colds. He has not recently been on any antibiotics. He is currently on BiPAP and resting comfortably. In the emergency room, he had a fever of 103. PAST MEDICAL HISTORY: Notable of autism. He has a history of seizure disorder, hypertension, end-stage renal disease on dialysis and recent admission for anemia 4 months ago. ALLERGIES: He is allergic to CEPHALOSPORINS which was as a baby with a rash. He tolerates piperacillin/tazobactam. MEDICATION: His medications at home include labetalol, Renvela, Depakote, amlodipine, hydralazine, Vimpat, and Cozaar. He lives with his family. SURGICAL HISTORY: Notable for bilateral inguinal hernia repair. SOCIAL HISTORY: There is no history of cigarette, alcohol, or substance use. REVIEW OF SYSTEMS: Per the family, until yesterday he was feeling well. PHYSICAL EXAMINATION: GENERAL: He is resting comfortably. He is on BiPAP. VITAL SIGNS: Temperature is 102.8, pulse 97, blood pressure 136/77, he is saturating 99% on BiPAP. Respiratory rate is 33. HEENT: Normocephalic. Eyes are anicteric. I cannot look in his mouth as he is wearing the BiPAP. NECK: Supple. No nuchal rigidity. LUNGS: Diminished breath sounds on the right. His left lung is clear. HEART: Regular rate and rhythm. ABDOMEN: Soft, nontender. EXTREMITIES: He has a large AV fistula on his left arm with some minimal excoriations. There are no open lesions. There is no chuy cellulitis. There is no drainage. Extremities without edema. LABORATORY: White count is 4.6, hemoglobin 11.4, platelets of 120. His BUN and creatinine are 100 and 12.9. Lactic acid is 3.4. Urinalysis is 1+ leukocytes with 119 white cells. Influenza screen is negative. Chest x-ray as stated, he has a large right-sided infiltrate. IMPRESSION: 1. In summary, this is a 23-year-old young man with autism, end-stage renal disease on dialysis admitted from home with lethargy, tachypnea and hypoxia. He now has fever and a large right-sided lung infiltrate. He received vancomycin, Azactam, and Zithromax in the ER. He has hypoxemic respiratory failure on BiPAP, extensive right-sided pneumonia, end-stage renal disease on dialysis, question whether this is community-acquired pneumonia versus aspiration. Cultures have been sent. Would send urinary antigens and follow up with cultures. I would give him piperacillin/tazobactam at this time to cover both for community-acquired pneumonia as well as aspiration. He received azithromycin in the ER and Azactam as well as vancomycin. I would follow up his vancomycin level in the morning. Further recommendations to follow. 2. End-stage renal disease, will adjust his antibiotic dosage for his renal failure. 3. His CEPHALOSPORIN allergy. Case was discussed at length with his parents at the bedside. Would hold further Zithromax since his QTC is quite prolonged. If needed, in the morning would switch to doxycycline. I would also, vancomycin is on board, would check a level in the morning. Further recommendations to follow. AMARILYS BILLY M.D. /[id number]
[2018-09-02 19:51] LABS: ARTERIAL BLD GAS O2 SATURATION 92.3 % (95-98); ARTERIAL BLOOD GAS BASE EXCESS -7.4 meq/l (-2-2); ARTERIAL BLOOD GAS PCO2 37.2 mmHg (35-45); ARTERIAL BLOOD GAS PO2 76.2 mmHg (80-105)
--- NOTE | 2018-09-02 19:54 | PN ---
Progress Note (short form) - Note Progress Note: Called to intubate this 23 year old male in respiratory distress. After sedation with 100mg of propofol in divided doses, the patient was intubated under direct laryngoscopy using a #8.0 endotracheal tube. Position confirmed and and tube secured. VSS post-intubation. Continue current care.
[2018-09-02 19:55] LABS: ALLENS TEST POSITIVE
[2018-09-02] MEDS ORDERED: MIDAZOLAM 100 MG in SODIUM CHLORIDE 100 ML IVPB SCH (20:00)
[2018-09-02] MEDS ORDERED: PROPOFOL 1,000,000 MCG/100 ML VIAL IVPB SCH (20:00)
--- NOTE | 2018-09-02 20:15 | HP ---
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) Cardiovascular: Yes: HTN Pulmonary: Yes: Other (pleural effusion) Renal/: Yes: Renal Inusuff, Hemodialysis Heme/Onc: Yes: Anemia - Past Surgical History Past Surgical History: Yes: AV Fistula/Graft, Hernia Repair - Smoking History Smoking history: Never smoked Have you smoked in the past 12 months: No Aproximately how many cigarettes per day: 0 - Alcohol/Substance Use Hx Alcohol Use: No Home Medications - Allergies Allergies/Adverse Reactions: Allergies Allergy/AdvReac Type Severity Reaction Status Date / Time cefprozil [From Cefzil] Allergy Intermediate Rash Verified 05/17/18 12:11 - Home Medications Home Medications: Ambulatory Orders Labetalol HCl [Normodyne -] 600 mg PO TID #90 tablet 10/09/17 Amlodipine Besylate [Norvasc -] 10 mg PO BID 05/18/18 Hydralazine HCl 100 mg PO TID 05/18/18 Lacosamide [Vimpat -] 100 mg PO BID 05/18/18 Losartan Potassium [Cozaar] 100 mg PO DAILY 05/18/18 Divalproex [Depakote -] 500 mg PO BID 09/02/18 LORazepam [Ativan] 4 mg PO ASDIR 09/02/18 Sevelamer Carbonate [Renvela -] 2,400 mg PO TIDCM 09/02/18 Family Disease History - Family Disease History Family Disease History: Other: Father (htn) Physical Examination Vital Signs: Vital Signs Temperature 103.9 F H 09/02/18 16:45 Pulse Rate 96 H 09/02/18 18:50 Respiratory Rate 40 H 09/02/18 18:50 Blood Pressure 106/51 L 09/02/18 18:50 O2 Sat by Pulse Oximetry (%) 100 09/02/18 18:50 Constitutional: Yes: No Distress HENT: Yes: Atraumatic Neck: Yes: Supple Cardiovascular: Yes: Regular Rate and Rhythm Respiratory: Yes: Rales, Rhonchi, Wheezes Gastrointestinal: Yes: Normal Bowel Sounds Extremities: Yes: Deformity Edema: No Neurological: Yes: Other (intubated) Labs: CBC, BMP 09/02/18 08:30 09/02/18 17:18 Imaging - Results X-ray: Report Reviewed Problem List - Problems (1) Acute hypoxemic respiratory failure Assessment/Plan: pt now is intubated Code(s): J96.01 - ACUTE RESPIRATORY FAILURE WITH HYPOXIA (2) ESRD (end stage renal disease) on dialysis Assessment/Plan: getting hd now in icu Code(s): N18.6 - END STAGE RENAL DISEASE; Z99.2 - DEPENDENCE ON RENAL DIALYSIS (3) Seizure Assessment/Plan: continue home meds Code(s): R56.9 - UNSPECIFIED CONVULSIONS (4) ESRD (end stage renal disease) Code(s): N18.6 - END STAGE RENAL DISEASE (5) Septic shock Assessment/Plan: iv pressors Code(s): A41.9 - SEPSIS, UNSPECIFIED ORGANISM; R65.21 - SEVERE SEPSIS WITH SEPTIC SHOCK (6) Sepsis Assessment/Plan: on iv abx cxs sent id consult Code(s): A41.9 - SEPSIS, UNSPECIFIED ORGANISM (7) Sepsis due to pneumonia Code(s): J18.9 - PNEUMONIA, UNSPECIFIED ORGANISM; A41.9 - SEPSIS, UNSPECIFIED ORGANISM Assessment/Plan Laboratory Tests 09/02/18 09/02/18 09/02/18 08:30 08:30 08:30 WBC 4.6 RBC 3.67 L Hgb 11.4 L Hct 34.2 L D MCV 93.2 MCH 31.1 MCHC 33.4 RDW 14.1 Plt Count 120 L D MPV 8.8 D Absolute Neuts (auto) 3.6 Neutrophils % 79.9 D Lymphocytes % 9.3 D Monocytes % 10.5 H Eosinophils % 0.0 D Basophils % 0.3 Nucleated RBC % 0 PT with INR INR PTT (Actin FS) Anticoagulation Therapy Puncture Site ABG pH ABG pCO2 at Pt Temp ABG pO2 at Pt Temp ABG HCO3 ABG O2 Sat (Measured) ABG O2 Content ABG Base Excess Wisam Test VBG pH 7.33 POC VBG pCO2 48.3 POC VBG pO2 37.4 VBG HCO3 25.0 VBG O2 Sat (Pierre) 59.9 L VBG Base Excess -0.7 Carboxyhemoglobin Methemoglobin O2 Delivery Device Oxygen Flow Rate Vent Mode Vent Rate Mechanical Rate Pressure Support Vent Sodium 131 L Potassium 6.6 H* Chloride 92 L Carbon Dioxide 25 Anion Gap 14 BUN 86 H Creatinine 11.7 H* Creat Clearance w eGFR 5.37 POC Glucometer Random Glucose 72 L Lactic Acid Calcium 8.9 Phosphorus Magnesium Total Bilirubin 0.7 AST 14 L ALT 9 L Alkaline Phosphatase 53 Troponin I 0.56 H B-Natriuretic Peptide 86403.8 H Total Protein 6.3 L Albumin 3.0 L Urine Color Urine Appearance Urine pH Ur Specific [place] Urine Protein Urine Glucose (UA) Urine Ketones Urine Blood Urine Nitrite Urine Bilirubin Urine Urobilinogen Ur Leukocyte Esterase Urine WBC (Auto) Urine RBC (Auto) Urine Casts (Auto) U Pathogenic Cast Auto U Epithel Cells (Auto) Urine Bacteria (Auto) Influenza A (Rapid) Influenza B (Rapid) 09/02/18 09/02/18 09/02/18 08:30 08:40 08:43 WBC RBC Hgb Hct MCV MCH MCHC RDW Plt Count MPV Absolute Neuts (auto) Neutrophils % Lymphocytes % Monocytes % Eosinophils % Basophils % Nucleated RBC % PT with INR INR PTT (Actin FS) Anticoagulation Therapy No Result Required. Puncture Site Right radial ABG pH 7.42 ABG pCO2 at Pt Temp 35.9 ABG pO2 at Pt Temp 68.4 L ABG HCO3 22.8 ABG O2 Sat (Measured) 92.5 L ABG O2 Content 16.8 ABG Base Excess -0.7 Wisam Test Positive VBG pH POC VBG pCO2 POC VBG pO2 VBG HCO3 VBG O2 Sat (Pierre) VBG Base Excess Carboxyhemoglobin 1.9 Methemoglobin 0.7 O2 Delivery Device No Result Required. Oxygen Flow Rate Yes Vent Mode No Result Required. Vent Rate No Result Required. Mechanical Rate No Result Required. Pressure Support Vent No Result Required. Sodium Potassium Chloride Carbon Dioxide Anion Gap BUN Creatinine Creat Clearance w eGFR POC Glucometer Random Glucose Lactic Acid 2.2 H* Calcium Phosphorus Magnesium Total Bilirubin AST ALT Alkaline Phosphatase Troponin I B-Natriuretic Peptide Total Protein Albumin Urine Color Yellow Urine Appearance Cloudy Urine pH 8.0 Ur Specific [place] 1.016 Urine Protein 3+ H Urine Glucose (UA) Trace Urine Ketones Negative Urine Blood Negative Urine Nitrite Negative Urine Bilirubin Negative Urine Urobilinogen 0.2 Ur Leukocyte Esterase 1+ H Urine WBC (Auto) 119 Urine RBC (Auto) 8 Urine Casts (Auto) 15 U Pathogenic Cast Auto None seen U Epithel Cells (Auto) 1.4 Urine Bacteria (Auto) 4.4 Influenza A (Rapid) Influenza B (Rapid) 09/02/18 09/02/18 09/02/18 10:08 10:08 11:10 WBC RBC Hgb Hct MCV MCH MCHC RDW Plt Count MPV Absolute Neuts (auto) Neutrophils % Lymphocytes % Monocytes % Eosinophils % Basophils % Nucleated RBC % PT with INR 14.10 H INR 1.19 H PTT (Actin FS) 35.9 Anticoagulation Therapy No Result Required. Puncture Site Right radial ABG pH 7.39 ABG pCO2 at Pt Temp 36.8 ABG pO2 at Pt Temp 118 H ABG HCO3 21.9 L ABG O2 Sat (Measured) 97.9 ABG O2 Content 13.3 L ABG Base Excess -2.2 L Wisam Test Positive VBG pH POC VBG pCO2 POC VBG pO2 VBG HCO3 VBG O2 Sat (Pierre) VBG Base Excess Carboxyhemoglobin Methemoglobin O2 Delivery Device No Result Required. Oxygen Flow Rate Yes Vent Mode No Result Required. Vent Rate No Result Required. Mechanical Rate No Result Required. Pressure Support Vent No Result Required. Sodium Potassium Chloride Carbon Dioxide Anion Gap BUN Creatinine Creat Clearance w eGFR POC Glucometer Random Glucose Lactic Acid Calcium Phosphorus Magnesium Total Bilirubin AST ALT Alkaline Phosphatase Troponin I B-Natriuretic Peptide Total Protein Albumin Urine Color Urine Appearance Urine pH Ur Specific [place] Urine Protein Urine Glucose (UA) Urine Ketones Urine Blood Urine Nitrite Urine Bilirubin Urine Urobilinogen Ur Leukocyte Esterase Urine WBC (Auto) Urine RBC (Auto) Urine Casts (Auto) U Pathogenic Cast Auto U Epithel Cells (Auto) Urine Bacteria (Auto) Influenza A (Rapid) Negative Influenza B (Rapid) Negative 09/02/18 09/02/18 09/02/18 17:18 17:18 17:19 WBC RBC Hgb Hct MCV MCH MCHC RDW Plt Count MPV Absolute Neuts (auto) Neutrophils % Lymphocytes % Monocytes % Eosinophils % Basophils % Nucleated RBC % PT with INR INR PTT (Actin FS) Anticoagulation Therapy Puncture Site ABG pH ABG pCO2 at Pt Temp ABG pO2 at Pt Temp ABG HCO3 ABG O2 Sat (Measured) ABG O2 Content ABG Base Excess Wisam Test VBG pH POC VBG pCO2 POC VBG pO2 VBG HCO3 VBG O2 Sat (Pierre) VBG Base Excess Carboxyhemoglobin Methemoglobin O2 Delivery Device Oxygen Flow Rate Vent Mode Vent Rate Mechanical Rate Pressure Support Vent Sodium 133 L Potassium 6.9 H* Chloride 94 L Carbon Dioxide 23 Anion Gap 17 H BUN 100 H Creatinine 12.9 H* Creat Clearance w eGFR 4.80 POC Glucometer 69 Random Glucose 72 L Lactic Acid 3.4 H* Calcium 8.4 L Phosphorus 4.8 Magnesium 1.7 L Total Bilirubin AST ALT Alkaline Phosphatase Troponin I B-Natriuretic Peptide Total Protein Albumin Urine Color Urine Appearance Urine pH Ur Specific [place] Urine Protein Urine Glucose (UA) Urine Ketones Urine Blood Urine Nitrite Urine Bilirubin Urine Urobilinogen Ur Leukocyte Esterase Urine WBC (Auto) Urine RBC (Auto) Urine Casts (Auto) U Pathogenic Cast Auto U Epithel Cells (Auto) Urine Bacteria (Auto) Influenza A (Rapid) Influenza B (Rapid) 09/02/18 19:30 WBC RBC Hgb Hct MCV MCH MCHC RDW Plt Count MPV Absolute Neuts (auto) Neutrophils % Lymphocytes % Monocytes % Eosinophils % Basophils % Nucleated RBC % PT with INR INR PTT (Actin FS) Anticoagulation Therapy No Result Required. Puncture Site Right radial ABG pH 7.30 L ABG pCO2 at Pt Temp 37.2 ABG pO2 at Pt Temp 76.2 L ABG HCO3 17.8 L ABG O2 Sat (Measured) 92.3 L ABG O2 Content 12.2 L ABG Base Excess -7.4 L Wisam Test Positive VBG pH POC VBG pCO2 POC VBG pO2 VBG HCO3 VBG O2 Sat (Pierre) VBG Base Excess Carboxyhemoglobin Methemoglobin O2 Delivery Device Bipap Oxygen Flow Rate 100% Vent Mode No Result Required. Vent Rate No Result Required. Mechanical Rate No Result Required. Pressure Support Vent No Result Required. Sodium Potassium Chloride Carbon Dioxide Anion Gap BUN Creatinine Creat Clearance w eGFR POC Glucometer Random Glucose Lactic Acid Calcium Phosphorus Magnesium Total Bilirubin AST ALT Alkaline Phosphatase Troponin I B-Natriuretic Peptide Total Protein Albumin Urine Color Urine Appearance Urine pH Ur Specific [place] Urine Protein Urine Glucose (UA) Urine Ketones Urine Blood Urine Nitrite Urine Bilirubin Urine Urobilinogen Ur Leukocyte Esterase Urine WBC (Auto) Urine RBC (Auto) Urine Casts (Auto) U Pathogenic Cast Auto U Epithel Cells (Auto) Urine Bacteria (Auto) Influenza A (Rapid) Influenza B (Rapid) Active Medications Generic Name Dose Route Start Last Admin Trade Name Freq PRN Reason Stop Dose Admin Chlorhexidine Gluconate 1 applic 09/02/18 22:00 Hibiclens For Decolonization - TP HS LAEN Heparin Sodium (Porcine) 5,000 unit 09/02/18 14:00 09/02/18 17:00 Heparin - SQ 5,000 unit TID [facility] Administration Sodium Chloride 250 mls @ 3,000 mls/hr 09/02/18 13:42 Normal Saline - IV 09/03/18 13:42 PRN PRN Hypotension during Dialysis Piperacillin Sod/Tazobactam 50 mls @ 100 mls/hr 09/02/18 18:00 Sod 2.25 gm/ Dextrose IVPB Q8H-IV [facility] Protocol Lacosamide 100 mg 09/02/18 22:00 Vimpat Injection - IVPB BID [facility] Mupirocin 1 applic 09/02/18 22:00 Bactroban Ointment (For Decolonization) - NS 09/07/18 21:59 BID [facility] Valproate Sodium 500 mg 09/02/18 22:00 Depacon Injection - IVPB BID [facility] cc time 60 min patient coded in icu...rervived mother at bedside new patient fo me used to get [facility] pt is intubated on pressors
[2018-09-02] MEDS ORDERED: DOPAMINE 400 MG/D5W - 400,000 MCG/250 ML INFUS.BAG IVPB ONE (20:22)
[2018-09-02] MEDS ORDERED: PHENYLEPHRINE HCL 10 MG/1 ML SINGLE DOSE VIAL ONE (20:23)
[2018-09-02] MEDS ORDERED: ADENOSINE 6 MG/2 ML VIAL IVPUSH ONE (21:13)
--- NOTE | 2018-09-02 21:40 | RAPID ---
Physical Examination Vital Signs: Vital Signs Temperature 102.2 F H 09/02/18 20:10 Pulse Rate 110 H 09/02/18 20:45 Respiratory Rate 32 H 09/02/18 20:45 Blood Pressure 105/57 L 09/02/18 20:45 O2 Sat by Pulse Oximetry (%) 100 09/02/18 18:50 Findings/Remarks: Called to rapid response at 9:20. Patient was observed to be in v tach. Pulse was lost and code 99 was called. ACLS protocol was followed and ROSC was achieved. Please refer to code sheet for further details. Labs: CBC, BMP 09/02/18 08:30 09/02/18 17:18
[2018-09-02] MEDS ORDERED: SODIUM CHLORIDE IV SCH (21:45)
[2018-09-02] MEDS ORDERED: INSULIN SLIDING SCALE (NOVOLOG) 1 VIAL SQ SCH (21:45)
[2018-09-02] MEDS ORDERED: SODIUM BICARBONATE IV SCH (21:45)
[2018-09-02] MEDS ORDERED: LABETALOL HCL 200 MG TABLET (FP) PO SCH (22:00)
[2018-09-02] MEDS ORDERED: amLODIPine BESYLATE 10 MG TABLET (FP) PO SCH (22:00)
[2018-09-02] MEDS ORDERED: SODIUM BICARBONATE 8.4% 50 MEQ/50 ML DISP.SYRIN IVPUSH SCH (22:00)
[2018-09-02] MEDS ORDERED: hydrALAZINE HCL 50 MG TABLET (FP) PO SCH (22:00)
[2018-09-02] MEDS ORDERED: CHLORHEXIDINE GLUCONATE 4% CLEANSER FOR DECOLONIZATION TP SCH (22:00)
[2018-09-02] MEDS ORDERED: Lacosamide 200 MG/20 ML VIAL IVPB SCH (22:00)
[2018-09-02] MEDS ORDERED: VALPROATE SODIUM 500 MG/5 ML VIAL IVPB SCH (22:00)
[2018-09-02] MEDS ORDERED: MUPIROCIN 2% TOPICAL OINTMENT FOR DECOLONIZATION NS SCH (22:00)
[2018-09-02 22:04] LABS: BASO % 0.3 % (0-2.0); EOS % 0.8 % (0-4.5); HEMATOCRIT 27.5 % (35.4-49); LYMPH % 22.5 % (8-40); MCH 30.7 pg (25.7-33.7); MCHC 32.7 g/dl (32.0-35.9); MEAN CELL VOLUME 93.9 fl (80-96); MEAN PLT VOLUME 9.4 fl (7.5-11.1); MONO % 3.1 % (3.8-10.2); NEUT % 73.3 % (42.8-82.8); PLATELET COUNT 61 K/MM3 (134-434); RBC 2.92 M/mm3 (4.00-5.60); RDW 14.4 % (11.9-15.9)
[2018-09-02 22:09] LABS: WHITE BLOOD COUNT 1.9 K/mm3 (4.0-10.0)
--- NOTE | 2018-09-02 22:25 | PN ---
Progress Note (short form) - Note Progress Note: 23 year olf male with MR; ESRD on HD presents to ER , from home short of breath , found to have large right lung consolidation. Found to be hyperkalemic in ER, K 6.4->6.9 after medical treatment with calcium gluc, insulin, sodium bicarb and albuterol. -Per chart review patient febrile and hypotensive on admission; did not receive adequate fluid resuscitation in ER due to ESRD? -last labs draw at 5:15 pm with potassium of 6.9, medical K management done in ER at that time; -patient came to ICU 7:00 pm sob; on BIPAP tachypniec 44 sating 80s; -called anaesthesia to intubate at that time -started on dialysis x1hr -patient become hypotensive; went into svt; rapid response called; HD stopped -given adenosine; -went into vtach ; pulseless; -code 99 initiated -ROSC achieved; see code sheet -stat repeat labs after code; K down to 5.1 -ABG; ph 7.32; o2 sat; 85; increase PEEP; monitor BP; #acute hypoxic respiratory failure sec to PNA in septic shock -patient no adequately fluid resuscitated; was given one fluid bolus during code ; needed to start peripheral presser due to code; -ivf -left femoral access attained; levophed started; amio drip continued
[2018-09-02 22:39] LABS: ARTERIAL BLD GAS O2 SATURATION 85.3 % (95-98); ARTERIAL BLOOD GAS BASE EXCESS 0.5 meq/l (-2-2); ARTERIAL BLOOD GAS PCO2 53.6 mmHg (35-45); ARTERIAL BLOOD GAS PO2 60.3 mmHg (80-105); ARTERIAL BLOOD GAS pH 7.32 (7.35-7.45)
[2018-09-02 22:45] LABS: ALBUMIN 2.5 g/dl (3.4-5.0); ALK PHOS 32 U/L (45-117); ANION GAP 14 MMOL/L (8-16); BILIRUBIN,TOTAL 0.4 mg/dL (0.2-1); BLOOD UREA NITROGEN 70 mg/dL (7-18); CALCIUM 9.3 mg/dL (8.5-10.1); CHLORIDE 102 mmol/L (98-107); CO2 27 mmol/L (21-32); GLUCOSE,RANDOM 100 mg/dL (74-106); MAGNESIUM 3.2 mg/dL (1.8-2.4); PHOSPHOROUS 6.1 mg/dL (2.5-4.9); POTASSIUM 5.1 mmol/L (3.5-5.1); SGOT/AST 66 U/L (15-37); SGPT/ALT 23 U/L (13-61); SODIUM 143 mmol/L (136-145); TOT PROT 4.8 g/dl (6.4-8.2)
[2018-09-02 22:57] LABS: CREATININE 8.8 mg/dL (0.55-1.3)
[2018-09-02] MEDS ORDERED: DIVALPROEX SODIUM 500 MG TABLET E.C. PO SCH (23:00)
[2018-09-02 23:07] LABS: PLATELET ESTIMATE DECREASED
[2018-09-02] MEDS ORDERED: AMIODARONE IN DEXTROSE,ISO-OSM 360 MG/200 ML BAG ONE (23:09)
--- NOTE | 2018-09-02 23:53 | RAPID ---
Physical Examination Vital Signs: Vital Signs Temperature 102.2 F H 09/02/18 20:10 Pulse Rate 92 H 09/02/18 21:46 Respiratory Rate 33 H 09/02/18 21:46 Blood Pressure 94/56 L 09/02/18 21:46 O2 Sat by Pulse Oximetry (%) 100 09/02/18 18:50 Findings/Remarks: Called to Code 99 at 11:39 pm. ACLS protocol was followed and ROSC was achieved. Please refer to code sheet for further details. Labs: CBC, BMP 09/02/18 21:30 09/02/18 21:30
[2018-09-03 00:05] LABS: ARTERIAL BLOOD GAS PCO2 54.8 mmHg (35-45); ARTERIAL BLOOD GAS PO2 54.3 mmHg (80-105); ARTERIAL BLOOD GAS pH 7.28 (7.35-7.45)
[2018-09-03 00:06] LABS: ARTERIAL BLD GAS O2 SATURATION 79.6 % (95-98); ARTERIAL BLOOD GAS BASE EXCESS -1.2 meq/l (-2-2)
[2018-09-03 00:07] LABS: ALLENS TEST POSITIVE
[2018-09-03] MEDS ORDERED: NOREPINEPHRINE BITARTRATE 4 MG/4 ML ML IV ONE (00:17)
[2018-09-03] MEDS ORDERED: DEXTROSE 50%-WATER - 25 GM/50 ML VIAL ONE (00:39)
[2018-09-03] MEDS ORDERED: PHENYLEPHRINE HCL 10 MG/1 ML SINGLE DOSE VIAL ONE (00:43)
--- NOTE | 2018-09-03 00:48 | RAPID ---
Physical Examination Vital Signs: Vital Signs Temperature 102.2 F H 09/02/18 20:10 Pulse Rate 92 H 09/02/18 21:46 Respiratory Rate 34 H 09/03/18 00:05 Blood Pressure 94/56 L 09/02/18 21:46 O2 Sat by Pulse Oximetry (%) 100 09/02/18 18:50 Findings/Remarks: Code 99 called at 12:30 am. ACLS protocol followed, ROSC was achieved. Please refer to code sheet for further details. Labs: CBC, BMP 09/02/18 21:30 09/02/18 21:30
--- NOTE | 2018-09-03 01:01 | RAPID ---
Physical Examination Vital Signs: Vital Signs Temperature 102.2 F H 09/02/18 20:10 Pulse Rate 92 H 09/02/18 21:46 Respiratory Rate 34 H 09/03/18 00:05 Blood Pressure 94/56 L 09/02/18 21:46 O2 Sat by Pulse Oximetry (%) 100 09/02/18 18:50 Findings/Remarks: Code 99 called at 12:52 am. ACLS protocol was followed and ROSC was achieved. Please refer to code sheet for further details. Labs: CBC, BMP 09/02/18 21:30 09/02/18 21:30
--- NOTE | 2018-09-03 01:04 | PROC ---
Central Line Insertion Indication: Sepsis Consent on Chart: Yes Central Line: Triple Lumen Catheter Anesthesia: 1% Lidocaine Sterile Technique: Yes Ultrasound Guided Assistance: Yes Position: Left Femoral
--- NOTE | 2018-09-03 01:42 | PN ---
Progress Note (short form) - Note Progress Note: Patient CODED 4 times; Family present throughout all codes; after 4th code; they decided to not resuscitate /intubate Called to see patient intubated on levophed and phenlyephrine, became bradycardic into the 30s then asystolic. Family at bedside, did not want patient coded again. Currently still intubated; with asytole. On exam the patient did not respond to verbal or physical stimuli. Absent heart sounds ; Absent peripheral pulses. Pupils are fixed and dilated. Patient pronounced at 12:59. Dr. Isidro, ICU attending notified. Dr. Michelle, primary left message with service. Next of kin/family at bedside. Autopsy declined.
[2018-09-03] MEDS ORDERED: INSULIN SLIDING SCALE (NOVOLOG) 1 VIAL SQ SCH (02:00)
[2018-09-03 02:21] VITALS: BMI 21.7
[2018-09-03] MEDS ORDERED: SEVELAMER CARBONATE 800 MG TAB (FP) PO SCH (08:00)
[2018-09-03] MEDS ORDERED: LOSARTAN POTASSIUM 100 MG TABLET PO SCH (10:00)
[2018-09-03] MEDS ORDERED: LOSARTAN POTASSIUM 50 MG TABLET (FP) PO SCH (10:00)
--- NOTE | 2018-09-03 14:31 | EKG ---
Test Reason : Blood Pressure : / mmHG Vent. Rate : 092 BPM Atrial Rate : 092 BPM P-R Int : 192 ms QRS Dur : 144 ms QT Int : 428 ms P-R-T Axes : 039 245 029 degrees QTc Int : 529 ms NORMAL SINUS RHYTHM RIGHT BUNDLE BRANCH BLOCK Consider brugada pattern ABNORMAL ECG WHEN COMPARED WITH ECG OF 02-SEP-2018 07:37, NO SIGNIFICANT CHANGE WAS FOUND Confirmed by MD Marion, Oscar ([id number]) on 09/03/2018 2:30:54 PM Referred By: Confirmed By:Oscar Schultz MD
--- NOTE | 2018-09-03 19:43 | DS ---
Physical Examination Vital Signs: Vital Signs Temperature 102.2 F H 09/02/18 20:10 Pulse Rate 92 H 09/02/18 21:46 Respiratory Rate 34 H 09/03/18 00:05 Blood Pressure 94/56 L 09/02/18 21:46 O2 Sat by Pulse Oximetry (%) 100 09/02/18 18:50 Labs: CBC, BMP 09/02/18 21:30 09/02/18 21:30 Discharge Summary Reason For Visit: RESP FAILURE SEPSIS HYPERKALEMIA Condition: Stable - Instructions Disposition: - Home Medications Comprehensive Discharge Medication List: Ambulatory Orders Labetalol HCl [Normodyne -] 600 mg PO TID #90 tablet 10/09/17 Amlodipine Besylate [Norvasc -] 10 mg PO BID 05/18/18 Hydralazine HCl 100 mg PO TID 05/18/18 Lacosamide [Vimpat -] 100 mg PO BID 05/18/18 Losartan Potassium [Cozaar] 100 mg PO DAILY 05/18/18 Divalproex [Depakote -] 500 mg PO BID 09/02/18 LORazepam [Ativan] 4 mg PO ASDIR 09/02/18 Sevelamer Carbonate [Renvela -] 2,400 mg PO TIDCM 09/02/18 patient coded 4 times family decide not to resuscitae moreexpired 12.59 am certificate filled out
[2018-09-03 20:15] VITALS: BP 96/50; PULSE 96; TEMP 100.1
[2018-09-04 04:13] LABS: HBSAG SCREEN Negative (Negative); HEP B CORE AB, TOT Negative (Negative)
== END 2018-09-03 01:00 | disposition expired | DRG 871 ==
LOC: JER 07:40 → JERBED 10:25 → JICU 19:08
PROVIDERS: ADMIT Internal Medicine; ATTEND Internal Medicine
PROC: 5A09357 Assistance with Respiratory Ventilation, Less than 24 Consecutive Hours, Continuous Positive Airway Pressure (ICD-10-PCS; principal; 2018-09-02)
PROC: 0BH17EZ Insertion of Endotracheal Airway into Trachea, Via Natural or Artificial Opening (ICD-10-PCS; 2018-09-02)
PROC: 5A1935Z Respiratory Ventilation, Less than 24 Consecutive Hours (ICD-10-PCS; 2018-09-02)
PROC: 5A1D70Z Performance of Urinary Filtration, Intermittent, Less than 6 Hours Per Day (ICD-10-PCS; 2018-09-02)
PROC: 06HN33Z Insertion of Infusion Device into Left Femoral Vein, Percutaneous Approach (ICD-10-PCS; 2018-09-03)
PROC: B51CYZA Fluoroscopy of Left Lower Extremity Veins using Other Contrast, Guidance (ICD-10-PCS; 2018-09-03)
DX: A41.9 Sepsis, unspecified organism (principal); N18.6 End stage renal disease; J96.01 Acute respiratory failure with hypoxia; J18.1 Lobar pneumonia, unspecified organism; R65.21 Severe sepsis with septic shock; F84.0 Autistic disorder; I12.0 Hypertensive chronic kidney disease with stage 5 chronic kidney disease or end stage renal disease; E87.5 Hyperkalemia; F79 Unspecified intellectual disabilities; G40.909 Epilepsy, unspecified, not intractable, without status epilepticus; Z66 Do not resuscitate
CPT/HCPCS: 36415; 36600; 71045-TC-FY; 80048; 80053; 81003; 82375; 82550; 82803; 82962; 83050; 83605; 83735; 83880; 84100; 84484; 85025; 85610; 85730; 86704; 86706; 86708; 86803; 87040; 87086; 87186; 87340; 87804; 93005; 93010; 94002; 99283-25; J0131; J1644